=== PATIENT | female | born 1960 | race Caucasian/White ===

== ENCOUNTER → 2017-02-17 14:07 | Outpatient (POV) | payer MEDICARE, MEDICAID, SELFPAY ==
[2017-02-17 15:33] LABS: Microscopic, Urine URINE MICROSCOPIC (MICROSCOPIC)
[2017-02-17 16:00] LABS: Appearance,Urine CLEAR (Clear); Bilirubin,Urine Negative (Negative); Blood, Urine Negative (Negative); Color,Urine YELLOW (Yellow); Glucose,Urine (UA) 2+ (Negative); Ketones,Urine Negative (Negative); Leukocyte Esterase,Urine Negative (Negative); Nitrate,Urine Negative (Negative); Protein,Urine Negative (Negative); Urobilinogen,Urine 0.2 EU/dl (0.2)
[2017-02-17 16:04] LABS: Creatinine,Urine Random 12 mg/dL (20-320)
[2017-02-17 16:11] LABS: Basophils # 0.1 K/mm3 (0-0.2); Eosinophils # 0.3 K/mm3 (0.0-0.4); Eosinophils % 1.9 % (0.1-12.0); Hematocrit 53.5 % (37.0-47.0); Hemoglobin 16.5 g/dL (12.2-16.2); Lymphocytes # 5.2 K/mm3 (0.7-4.5); Lymphocytes % 37.4 K/mm3 (10-50); Mean Corpuscular HGB Conc 30.9 g/dL (31.8-35.4); Mean Corpuscular Hemoglobin 27.5 pg (27.0-31.2); Mean Corpuscular Volume 88.8 fl (81-99); Mean Platelet Volume 7.8 fl (7.4-10.4); Monocytes # 0.9 K/mm3 (0.1-1.0); Monocytes % 6.3 % (1.7-9.3); Neutrophils # 7.5 K/mm3 (1.8-7.8); Neutrophils % 53.5 % (37.0-80.0); Platelet Count 293 K/mm3 (142-424); Red Blood Count 6.02 M/mm3 (4.20-5.40); Red Cell Distribution Width 13.4 % (11.5-17.5)
[2017-02-17 17:40] LABS: Albumin Level 3.5 gm/dL (3.4-5.0); Blood Urea Nitrogen 36 mg/dL (7-18); Calcium 9.5 mg/dL (8.5-10.1); Carbon Dioxide 35 mmol/L (21.0-32.0); Chloride 96 mmol/L (98-107); Creatinine,Serum 1.45 mg/dL (0.55-1.02); Estimated Glomerular Filt Rate 37 ml/min (>60); GFR (African American) 45 ML/MIN (>60); Glucose 399 mg/dL (74-106); Phosphorous 3.7 mg/dL (2.4-4.9); Sodium 137 mmol/L (136-145)
[2017-02-17 19:38] LABS: Bacteria,Urine Trace /lpf; RBC,Urine Occasional #/hpf (0-3); Squamous Epithelial Cell,Urine Occasional #/hpf (0-5); WBC,Urine Occasional #/hpf (0-3)
[2017-02-19 22:14] LABS: Vitamin D 25 Hydroxy 22.5 ng/mL (30.0-100.0)
[2017-02-21 15:16] LABS: Albumin, U 39.2 % (.); Alpha-1-Globulin, U 1.9 % (.); Alpha-2-Globulin, U 8.8 % (.); Beta Globulin, U 23.9 % (.); Gamma Globulin, U 26.1 % (.); M-Spike, % Not Observed % (Not Observed)
[2017-02-22 13:39] LABS: Protein,Total,Urine <4.0 mg/dL (Not Estab.)
== END ==
PROVIDERS: Visit Provider Internal Medicine Nephrology
DX: N18.3 Chronic kidney disease, stage 3 (moderate) (principal)
CPT/HCPCS: 36415; 80069; 81001; 82570; 82652; 85025

== ENCOUNTER → 2017-02-22 14:57 | Outpatient (POV) | payer MEDICARE, MEDICAID, SELFPAY | PROVIDERS: Visit Provider Internal Medicine | DX: Z00.00 Encounter for general adult medical examination without abnormal findings (principal) ==

== ENCOUNTER 2017-04-27 19:02 | Emergency (ER) | payer MEDICARE, MEDICAID, SELFPAY ==
[2017-04-27 19:13] VITALS: BP 108/81; PULSE 85; RESP 18; TEMP 37; O2SAT 96; BMI 34.0
[2017-04-27 20:18] LABS: Basophils # 0.1 K/mm3 (0-0.2); Basophils % 0.7 % (0.1-2.0); Eosinophils # 0.1 K/mm3 (0.0-0.4); Hematocrit 53.6 % (37.0-47.0); Hemoglobin 16.7 g/dL (12.2-16.2); Lymphocytes # 4.1 K/mm3 (0.7-4.5); Lymphocytes % 41.3 K/mm3 (10-50); Mean Corpuscular HGB Conc 31.2 g/dL (31.8-35.4); Mean Corpuscular Hemoglobin 27.2 pg (27.0-31.2); Mean Corpuscular Volume 87.3 fl (81-99); Mean Platelet Volume 8.4 fl (7.4-10.4); Monocytes # 0.8 K/mm3 (0.1-1.0); Monocytes % 7.7 % (1.7-9.3); Neutrophils # 4.9 K/mm3 (1.8-7.8); Neutrophils % 49.3 % (37.0-80.0); Platelet Count 238 K/mm3 (142-424); Red Blood Count 6.14 M/mm3 (4.20-5.40); Red Cell Distribution Width 13.8 % (11.5-17.5)
--- NOTE | 2017-04-27 20:23 | [facility]H.EDSOB ---
ED Disposition Clinical Impression: Acute exacerbation of chronic obstructive airways disease, Renal insufficiency Disposition: Home, Self-Care Condition on Discharge: Good Instructions: DI for Chronic Obstructive Pulmonary Disease Additional Instructions: see pcp for follow up Prescriptions: Benzonatate [Tessalon Perle 100mg Cap] 100 mg PO TID #30 cap Referrals: Joshua Urban MD [Primary Care Provider] - - Critical Care Critical Care Time: No Attestation: On 04/27/17, the high probability of a clinically significant, sudden or life threatening deterioration of the following system(s) required my full and direct attention, intervention and personal management. The time I documented below is in addition to time spent performing reported procedures but includes the following listed in this critical care notation. Medical Decision Making - Medical Records Medical records reviewed: Yes: I reviewed the patient's medical records. - Jordin Inquiry Pt receiving controlled substance: No Vital Signs: 04/27/17 19:13 04/27/17 20:33 04/27/17 21:07 Temperature 98.6 F 98.9 F Temperature Source Oral Oral Pulse Rate 78 Pulse Rate [Left Radial] 85 98 H Respiratory Rate 18 20 Blood Pressure [Right Arm] 108/81 154/85 Blood Pressure Mean [Right Arm] 90 108 Blood Pressure Source [Right Arm] Automatic Cuff Automatic Cuff Blood Pressure Position [Right Arm] Sitting Sitting 02 Sat by Pulse Oximetry 96 95 98 Oxygen Delivery Method Room Air Nasal Cannula Nasal Cannula Oxygen Flow Rate (LPM) 2 3 - Lab Data Lab results reviewed: Yes: I reviewed the patient's lab results. Lab Results 04/27/17 19:45: WBC 10.0, RBC 6.14 H, Hgb 16.7 H, Hct 53.6 H, MCV 87.3, MCH 27.2, MCHC 31.2 L, RDW 13.8, Plt Count 238, MPV 8.4, Neut % (Auto) 49.3, Lymph % (Auto) 41.3, [place] % (Auto) 7.7, Eos % (Auto) 1.0, Baso % (Auto) 0.7, Neut # (Auto) 4.9, Lymph # (Auto) 4.1, [place] # (Auto) 0.8, Eos # (Auto) 0.1, Baso # (Auto) 0.1 04/27/17 19:45: Sodium 135 L, Potassium 3.4 L, Chloride 98, Carbon Dioxide 26, Anion Gap 14.4, BUN 35 H, Creatinine 1.64 H, Estimated Creat Clear 54, Estimated GFR 32 L, Est GFR ( Amer) 39 L, Glucose 361 H, Total Creatine Kinase 43, CK-MB (CK-2) 0.7, CK-MB (CK-2) Rel Index 1.6, Troponin I < 0.02, Amylase 35 04/27/17 19:45: Influenza Type A Ag Negative, Influenza Type B Ag Negative 04/27/17 19:45: Total Bilirubin 0.6, Direct Bilirubin 0.2, AST 31, ALT 53, Alkaline Phosphatase 149 H, Total Protein 7.7, Albumin 2.9 L, Lipase 69 L 04/27/17 19:45: Lactic Acid 1.2 Result diagrams: 04/27/17 19:45 04/27/17 19:45 Orders (Tests/Meds): ED MEDICATIONS Discontinued Medications Generic Name Dose Route Start Last Admin Trade Name Freq PRN Reason Stop Dose Admin Albuterol/Ipratropium 3 ml 04/27/17 20:50 04/27/17 21:04 Duoneb 3ml Neb IH 04/27/17 20:51 3 ml ONCE ONE Administration ORDERS Category Date Time Status XR chest 2V Stat Exams 04/27/17 20:24 Taken Upper Respiratory Panel, PCR Stat Lab 04/27/17 21:04 Ordered Blood Culture Stat Micro 04/27/17 20:23 Ordered Sputum Culture & Gram Stain Stat Micro 04/27/17 21:07 Ordered - Radiology Data #1 Image(s): Chest Image Reviewed: Yes I reviewed the patient's radiology image Preliminary Findings: Abnormal (copd) Resp/SOB HPI - General Chief Complaint: Shortness of Breath/Dyspnea Stated Complaint: SOB, Headaches, body aches, nausea Time Seen by Provider: 04/27/17 20:23 Mode of Arrival: Ambulatory Source of Information: Patient, Medical Record Limitations: No Limitations Description of Symptoms (Recalled from ER Triage Doc. 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
--- NOTE | 2017-04-27 20:24 | XR_ITS ---
XR chest 2V HISTORY: Shortness of air ITS.REASON: soa ORDERING PHYSICIAN: Ramon Raygoza MD PATIENT AGE: 57 years COMPARISON: 10/23/2016 FINDINGS: The cardiomediastinal silhouette and pulmonary vascularity are within normal limits. There is diffuse coarsening of the interstitial markings as before. A loop recorder device is in place along the anterior chest wall. There is a 5 mm nodule in the right upper lobe and may been present previously. No lobar consolidation or collapse. No acute bony anomalies.. No acute bony abnormalities. IMPRESSION: 1. Interstitial fibrosis. 2. 5 mm right upper lobe nodular opacity possibly related to granuloma. Consider follow-up to confirm stability
[2017-04-27 20:29] LABS: Alanine Aminotransferase 53 U/L (12-78); Albumin Level 2.9 gm/dL (3.4-5.0); Alkaline Phosphatase 149 U/L (46-116); Aspartate Amino Transferase 31 U/L (15-37); Bilirubin,Direct 0.2 mg/dL (0.0-0.2); Bilirubin,Total 0.6 mg/dL (0.2-1.0); Lipase 69 u/L (73-393); Total Protein,Serum 7.7 gm/dL (6.4-8.2)
[2017-04-27 20:32] LABS: Lactic Acid 1.2 mmol/L (0.4-2.0)
[2017-04-27 20:33] VITALS: BP 154/85; PULSE 98; RESP 20; TEMP 37.2; O2SAT 95
[2017-04-27 20:48] LABS: Amylase 35 U/L (25-125); Anion Gap 14.4 mEq/L (5-15); Blood Urea Nitrogen 35 mg/dL (7-18); CKMB Relative Index 1.6 U/L (0-4.0); Carbon Dioxide 26 mmol/L (21.0-32.0); Chloride 98 mmol/L (98-107); Creatine Kinase 43 U/L (26-192); Creatine Kinase MB 0.7 mg/ml (0.0-3.6); Creatinine Clearance Estimated 54 mL/min (0-300); Creatinine,Serum 1.64 mg/dL (0.55-1.02); Estimated Glomerular Filt Rate 32 ml/min (>60); GFR (African American) 39 ML/MIN (>60); Glucose 361 mg/dL (74-106); Potassium 3.4 mmoL/L (3.5-5.1); Sodium 135 mmol/L (136-145); Troponin I < 0.02 ng/ml (0.00-0.06)
[2017-04-27 21:07] VITALS: PULSE 78; PULSE 82; O2SAT 98
[2017-04-27 21:18] VITALS: BP 139/86; PULSE 70; RESP 20; O2SAT 95
[2017-04-27 21:23] LABS: Adenovirus,PCR Not Detected (NotDetected); Bordetella Pertussis Not Detected (NotDetected); Chlamydophila Pneumoniae, PCR Not Detected (NotDetected); Coronavirus 229E Not Detected (NotDetected); Coronavirus NL63 Not Detected (NotDetected); Coronavirus OC43 Not Detected (NotDetected); Coronovirus HKU1,PCR Not Detected (NotDetected); Human Metapneumovirus Not Detected (NotDetected); Influenza A, PCR Not Detected (NotDetected); Influenza AH1, 2009 Not Detected (NotDetected); Influenza AH1, PCR Not Detected (NotDetected); Influenza AH3,PCR Not Detected (NotDetected); Mycoplasma Pneumoniae, PCR Not Detected (NotDected); Parainfluenza 1, PCR Not Detected (NotDetected); Parainfluenza 2, PCR Not Detected (NotDetected); Parainfluenza 3, PCR Not Detected (NotDetected); Parainfluenza 4, PCR Not Detected (NotDetected); Respiratory Syncytial Virus Not Detected (NotDetected); Rhinovirus/Enterovirus Not Detected (NotDetected)
[2017-04-27 21:52] VITALS: BP 128/69; PULSE 80; RESP 18; TEMP 36.7; O2SAT 95
[2017-04-27 23:51] LABS: Influenza B, PCR Detected (NotDetected)
== END 2017-04-27 21:53 | disposition home or self-care (01) ==
PROVIDERS: Emergency Provider Emergency Medicine; PCP Emergency Medicine
DX: J44.1 Chronic obstructive pulmonary disease with (acute) exacerbation (principal); N28.9 Disorder of kidney and ureter, unspecified; Z88.0 Allergy status to penicillin; Z88.1 Allergy status to other antibiotic agents; Z88.2 Allergy status to sulfonamides; Z88.8 Allergy status to other drugs, medicaments and biological substances
CPT/HCPCS: 71046; 80048; 80076; 82150; 82550; 82553; 83605; 83690; 84484; 85025; 87040; 87070; 87205; 87275; 87276; 87486; 87581; 87633; 87798; 96374; 99211; 99283; 99284

== ENCOUNTER → 2017-05-17 15:14 | Outpatient (REF) | payer MEDICARE, MEDICAID, SELFPAY ==
[2017-05-17 19:36] LABS: Amphetamine/Metha Screen,Urine Negative ng/mL (<1000); Barbiturates Screen,Urine Negative ng/mL (<200); Benzodiazepines Screen,Urine Negative ng/mL (200); Cannabinoid Screen,Urine Positive ng/mL (<50); Cocaine Screen,Urine Negative ng/g (<300); Methadone Screen,Urine Negative ng/mL (<300); Opiate Screen,Urine Positive ng/mL (<300); Phencyclidine Screen,Urine Negative ng/mL (<25)
== END ==
LOC: LAB 15:14
PROVIDERS: Visit Provider Emergency Medicine
DX: Z79.899 Other long term (current) drug therapy (principal)
CPT/HCPCS: 80305

== ENCOUNTER 2017-06-09 15:04 | Outpatient (RCR) | payer MEDICARE, MEDICAID, SELFPAY | END 2017-06-09 15:05 | disposition home or self-care (01) | LOC: PT 15:04 | PROVIDERS: Visit Provider Nurse Practitioner Family | DX: J44.9 Chronic obstructive pulmonary disease, unspecified (principal) | CPT/HCPCS: G0424 ==

== ENCOUNTER → 2017-06-15 13:57 | Outpatient (REF) | payer MEDICARE, MEDICAID, SELFPAY ==
[2017-06-15 20:57] LABS: Amphetamine/Metha Screen,Urine Negative ng/mL (<1000); Barbiturates Screen,Urine Negative ng/mL (<200); Benzodiazepines Screen,Urine Negative ng/mL (200); Cannabinoid Screen,Urine Negative ng/mL (<50); Cocaine Screen,Urine Negative ng/g (<300); Methadone Screen,Urine Negative ng/mL (<300); Opiate Screen,Urine Positive ng/mL (<300); Phencyclidine Screen,Urine Negative ng/mL (<25)
== END ==
LOC: LAB 13:57
PROVIDERS: Visit Provider Emergency Medicine
DX: M54.2 Cervicalgia (principal); Z79.899 Other long term (current) drug therapy
CPT/HCPCS: 80305

== ENCOUNTER → 2017-07-12 14:35 | Outpatient (CLI) | payer MEDICARE, MEDICAID, SELFPAY ==
[2017-07-12 14:40] LABS: Microscopic, Urine URINE MICROSCOPIC (MICROSCOPIC)
[2017-07-12 14:56] LABS: Appearance,Urine CLEAR (Clear); Bilirubin,Urine Negative (Negative); Blood, Urine Negative (Negative); Color,Urine YELLOW (Yellow); Glucose,Urine (UA) 1+ (Negative); Ketones,Urine Negative (Negative); Leukocyte Esterase,Urine Negative (Negative); Nitrate,Urine Negative (Negative); PH,Urine 5.5 (5.0-8.5); Protein,Urine Negative (Negative); Urobilinogen,Urine 0.2 EU/dl (0.2)
[2017-07-12 15:02] LABS: Basophils # 0.1 K/mm3 (0-0.2); Basophils % 0.7 % (0.1-2.0); Eosinophils # 0.2 K/mm3 (0.0-0.4); Eosinophils % 2.2 % (0.1-12.0); Hematocrit 53.3 % (37.0-47.0); Lymphocytes # 2.9 K/mm3 (0.7-4.5); Lymphocytes % 30.6 K/mm3 (10-50); Mean Corpuscular Hemoglobin 26.9 pg (27.0-31.2); Mean Corpuscular Volume 89.6 fl (81-99); Mean Platelet Volume 7.5 fl (7.4-10.4); Monocytes # 0.7 K/mm3 (0.1-1.0); Monocytes % 7.3 % (1.7-9.3); Neutrophils # 5.7 K/mm3 (1.8-7.8); Neutrophils % 59.1 % (37.0-80.0); Platelet Count 332 K/mm3 (142-424); Red Blood Count 5.95 M/mm3 (4.20-5.40); Red Cell Distribution Width 14.2 % (11.5-17.5); White Blood Count 9.6 K/mm3 (4.8-10.8)
[2017-07-12 15:10] LABS: Hemoglobin A1C 9.5 % (0.0-7.0)
[2017-07-12 15:32] LABS: Bacteria,Urine Trace /lpf; Creatinine,Urine Random 75 mg/dL (20-320); RBC,Urine Occasional #/hpf (0-3); Squamous Epithelial Cell,Urine Occasional #/hpf (0-5)
[2017-07-12 15:36] LABS: Albumin Level 3.3 gm/dL (3.4-5.0); Anion Gap 12.7 mEq/L (5-15); Blood Urea Nitrogen 26 mg/dL (7-18); Calcium 9.6 mg/dL (8.5-10.1); Carbon Dioxide 31 mmol/L (21.0-32.0); Chloride 100 mmol/L (98-107); Creatinine,Serum 1.52 mg/dL (0.55-1.02); Estimated Glomerular Filt Rate 35 ml/min (>60); GFR (African American) 43 ML/MIN (>60); Glucose 381 mg/dL (74-106); Phosphorous 4.1 mg/dL (2.4-4.9); Potassium 3.7 mmoL/L (3.5-5.1); Sodium 140 mmol/L (136-145)
== END ==
PROVIDERS: Visit Provider Internal Medicine Nephrology
DX: N18.3 Chronic kidney disease, stage 3 (moderate) (principal); E11.8 Type 2 diabetes mellitus with unspecified complications
CPT/HCPCS: 36415; 80069; 81001; 82570; 83036; 84155; 85025

== ENCOUNTER → 2017-07-18 13:52 | Outpatient (POV) | payer MEDICARE, MEDICAID, SELFPAY ==
[2017-07-18 14:49] LABS: Microscopic, Urine URINE MICROSCOPIC (MICROSCOPIC)
[2017-07-18 15:33] LABS: Appearance,Urine SL CLOUDY (Clear); Blood, Urine Negative (Negative); Color,Urine YELLOW (Yellow); Glucose,Urine (UA) TRACE (Negative); Ketones,Urine Negative (Negative); Leukocyte Esterase,Urine TRACE (Negative); Nitrate,Urine Negative (Negative); PH,Urine 5.5 (5.0-8.5); Protein,Urine Negative (Negative); Specific Gravity, Urine 1.025 (1.005-1.030); Urobilinogen,Urine 0.2 EU/dl (0.2)
[2017-07-18 15:35] LABS: Bilirubin,Urine Negative (Negative)
[2017-07-18 15:53] LABS: Bacteria,Urine 3+ /lpf
== END ==
PROVIDERS: PCP Emergency Medicine; Visit Provider Internal Medicine Nephrology
DX: R30.0 Dysuria (principal)
CPT/HCPCS: 81001; 87086; 87088; 87186

== ENCOUNTER → 2017-08-16 13:31 | Outpatient (REF) | payer MEDICARE, MEDICAID, SELFPAY ==
[2017-08-16 18:40] LABS: Amphetamine/Metha Screen,Urine Negative ng/mL (<1000); Barbiturates Screen,Urine Negative ng/mL (<200); Benzodiazepines Screen,Urine Negative ng/mL (<200); Cannabinoid Screen,Urine Positive ng/mL (<50); Cocaine Screen,Urine Negative ng/mL (<300); Methadone Screen,Urine Negative ng/mL (<300); Opiate Screen,Urine Positive ng/mL (<300); Phencyclidine Screen,Urine Negative ng/mL (<25)
== END ==
LOC: LAB 13:31
PROVIDERS: Visit Provider Emergency Medicine
DX: M54.5 Low back pain (principal)
CPT/HCPCS: 80305

== ENCOUNTER → 2017-09-05 15:10 | Outpatient (REF) | payer MEDICARE, MEDICAID, SELFPAY ==
[2017-09-05 17:50] LABS: Amphetamine/Metha Screen,Urine Negative ng/mL (<1000); Barbiturates Screen,Urine Negative ng/mL (<200); Benzodiazepines Screen,Urine Negative ng/mL (<200); Cannabinoid Screen,Urine Positive ng/mL (<50); Cocaine Screen,Urine Negative ng/mL (<300); Methadone Screen,Urine Negative ng/mL (<300); Opiate Screen,Urine Negative ng/mL (<300); Phencyclidine Screen,Urine Negative ng/mL (<25)
== END ==
LOC: LAB 15:10
PROVIDERS: Visit Provider Emergency Medicine
DX: M54.2 Cervicalgia (principal)
CPT/HCPCS: 80305

== ENCOUNTER → 2017-10-04 08:12 | Outpatient (CLI) | payer MEDICARE, MEDICAID, SELFPAY ==
--- NOTE | 2017-10-04 08:19 | US_ITS ---
US Arterial Ankle Brachial Ind History: Previous smoker, hypertension, bilateral rest pain and bilateral claudication with history of diabetes and peripheral vascular disease ORDERING PHYSICIAN: Kaiden Chan MD PATIENT AGE: 57 years TECHNIQUE: Segmental pressures obtained of both right and left leg. These are compared to brachial blood pressure to yield index at each level sampled including summary DAVE. The data sheets from the procedure are available in PACS FINDINGS Rest study only performed today No prior studies available for comparison. Blood pressures reported are in millimeters mercury. RIGHT LEG DAVE = 1.1. RIGHT LEG TBI=0.7 Brachial BP: 119 Thigh BP: 134 Calf BP: 139 Ankle PT: 132 Ankle DP : 129 Digit =82 LEFT LEG DAVE = 1.1 LEFT LEG TBI= 0.8 Brachial BPD: 120 Thigh BP: 148 Calf BP: 141 Ankle PT:133 Ankle DP: 123 Digit = 90 Pulses and waveforms: Normal IMPRESSION: The ABIs as reported above are within normal limits. Waveforms and pulses are also unremarkable.
== END ==
PROVIDERS: PCP Emergency Medicine; Visit Provider Internal Medicine
DX: I73.9 Peripheral vascular disease, unspecified (principal)
CPT/HCPCS: 93922

== ENCOUNTER → 2017-10-05 15:01 | Outpatient (REF) | payer MEDICARE, MEDICAID, SELFPAY ==
[2017-10-05 19:34] LABS: Amphetamine/Metha Screen,Urine Negative ng/mL (<1000); Barbiturates Screen,Urine Negative ng/mL (<200); Benzodiazepines Screen,Urine Negative ng/mL (<200); Cannabinoid Screen,Urine Positive ng/mL (<50); Cocaine Screen,Urine Negative ng/mL (<300); Methadone Screen,Urine Negative ng/mL (<300); Opiate Screen,Urine Positive ng/mL (<300); Phencyclidine Screen,Urine Negative ng/mL (<25)
== END ==
LOC: LAB 15:01
PROVIDERS: Visit Provider Emergency Medicine
DX: M54.2 Cervicalgia (principal)
CPT/HCPCS: 80305

== ENCOUNTER → 2018-03-01 13:46 | Outpatient (CLI) | payer MEDICARE, MEDICAID, SELFPAY ==
[2018-03-01 14:22] LABS: Amphetamine/Metha Screen,Urine Negative ng/mL (<1000); Barbiturates Screen,Urine Negative ng/mL (<200); Benzodiazepines Screen,Urine Negative ng/mL (<200); Cannabinoid Screen,Urine Positive ng/mL (<50); Cocaine Screen,Urine Negative ng/mL (<300); Methadone Screen,Urine Negative ng/mL (<300); Opiate Screen,Urine Positive ng/mL (<300); Phencyclidine Screen,Urine Negative ng/mL (<25)
== END ==
PROVIDERS: Visit Provider Emergency Medicine
DX: Z79.899 Other long term (current) drug therapy (principal)
CPT/HCPCS: 80305

== ENCOUNTER → 2018-04-28 12:29 | Outpatient (CLI) | payer MEDICARE, MEDICAID, SELFPAY ==
--- NOTE | 2018-04-28 12:43 | XR_ITS ---
XR chest 2V HISTORY: ITS.REASON: Shortness of air ORDERING PHYSICIAN: Joshua Urban MD PATIENT AGE: 58 years COMPARISON: 04/27/2017 FINDINGS: Normal heart size. There is a loop recorder device present in the precordial region. Pulmonary fibrotic changes are noted as before. There is some increase in density in the right upper lobe which may only be related to progression of pulmonary fibrotic change. Superimposed infiltrate is also a consideration. No effusions. No acute bony anomalies. IMPRESSION: Pulmonary fibrosis with some increased markings in the right upper lobe which could be related to superimposed infiltrate.
--- NOTE | 2018-04-28 12:43 | XR_ITS ---
XR hip LT 2-3V w/pelvis HISTORY: ITS.REASON: Hip pain ORDERING PHYSICIAN: Joshua Urban MD PATIENT AGE: 58 years COMPARISON: 06/12/2016 FINDINGS: No acute fracture or dislocation. No lytic or blastic change. There is an os acetabulum similar to the previous exam. Calcification is present superior to the greater trochanter also similar to the previous exam. There are mild osteoarthritic changes with slight decrease in the joint space and minimal spurring along the head. Surgical clips are present in the pelvic region. IMPRESSION: Mild osteoarthritis with chronic changes, no acute finding
--- NOTE | 2018-04-28 12:43 | XR_ITS ---
XR ribs RT min 3V w CXR1V HISTORY: Posterior right rib pain after a fall ITS.REASON: Rib pain ORDERING PHYSICIAN: Joshua Urban MD PATIENT AGE: 58 years Comparison: None FINDINGS: Multiple views of the right ribs were obtained. No fracture or dislocation. No lytic or blastic change. IMPRESSION: Negative RIBS. If pain persists, consider follow-up exam in 7-[address] with 3-D reformats.
[2018-04-28 13:38] LABS: Anion Gap 13.9 mEq/L (5-15); Blood Urea Nitrogen 29 mg/dL (7-18); Calcium 9.9 mg/dL (8.5-10.1); Carbon Dioxide 28 mmol/L (21.0-32.0); Chloride 96 mmol/L (98-107); Creatinine,Serum 1.12 mg/dL (0.55-1.02); Estimated Glomerular Filt Rate 50 ml/min (>60); GFR (African American) 61 ML/MIN (>60); Potassium 3.9 mmoL/L (3.5-5.1); Sodium 134 mmol/L (136-145)
[2018-04-28 13:47] LABS: Glucose 507 mg/dL (74-106)
[2018-04-28 14:05] LABS: Basophils # 0.1 K/mm3 (0-0.2); Basophils % 0.8 % (0.1-2.0); Eosinophils # 0.2 K/mm3 (0.0-0.4); Eosinophils % 1.5 % (0.1-12.0); Hematocrit 53.6 % (37.0-47.0); Hemoglobin 15.8 g/dL (12.2-16.2); Mean Corpuscular HGB Conc 29.5 g/dL (31.8-35.4); Mean Corpuscular Hemoglobin 24.7 pg (27.0-31.2); Mean Corpuscular Volume 83.7 fl (81-99); Mean Platelet Volume 8.6 fl (7.4-10.4); Monocytes # 0.8 K/mm3 (0.1-1.0); Monocytes % 7.1 % (1.7-9.3); Neutrophils # 6.1 K/mm3 (1.8-7.8); Neutrophils % 54.5 % (37.0-80.0); Platelet Count 317 K/mm3 (142-424); Red Cell Distribution Width 15.2 % (11.5-17.5); White Blood Count 11.2 K/mm3 (4.8-10.8)
[2018-04-29 07:14] LABS: Hep A Ab, IgM Negative (Negative); Hepatitis B Core Antibody IgM Negative (Negative); Hepatitis B Surface Antigen Negative (Negative)
[2018-04-29 09:05] LABS: Hepatitis C Antibody >11.0 s/co ratio (0.0-0.9)
== END ==
PROVIDERS: Visit Provider Emergency Medicine
DX: R53.83 Other fatigue (principal); R11.2 Nausea with vomiting, unspecified; R06.02 Shortness of breath; M25.552 Pain in left hip
CPT/HCPCS: 36415; 71046; 71101; 73502; 80048; 80074; 85025

== ENCOUNTER → 2018-05-11 13:00 | Outpatient (CLI) | payer MEDICARE, MEDICAID, SELFPAY ==
[2018-05-11 14:09] LABS: Hemoglobin A1C 10.5 % (0.0-7.0)
[2018-05-11 14:21] LABS: INR 1.02 (0.9-1.1); Prothrombin Time 10.5 seconds (9.4-11.8)
[2018-05-13 07:16] LABS: HIV Screen 4th Generation wRfx Non Reactive (Non Reactive)
[2018-05-14 18:25] LABS: Hep A Ab, Total Positive (Negative)
[2018-05-15 20:08] LABS: HCV Genotype Charge YES; Hepatitis C Genotype 1a (.)
== END ==
PROVIDERS: PCP Emergency Medicine; Visit Provider Physician Assistant
DX: R76.8 Other specified abnormal immunological findings in serum (principal); E11.9 Type 2 diabetes mellitus without complications; Z79.4 Long term (current) use of insulin
CPT/HCPCS: 36415; 83036; 85610; 86703; 86708; 87522; 87902; G0432

== ENCOUNTER → 2018-05-15 15:35 | Outpatient (CLI) | payer MEDICARE, MEDICAID, SELFPAY ==
--- NOTE | 2018-05-15 15:41 | XR_ITS ---
XR chest 2V HISTORY: ITS.REASON: shortness of breath ORDERING PHYSICIAN: Glo Stone PATIENT AGE: 58 years COMPARISON: PA and lateral chest 04/28/2018 FINDINGS: The lung kimball are fairly well expanded again showing diffuse interstitial fibrotic changes as noted previously. Interstitial markings and opacities are slightly more prominent right upper lobe than the remainder lung kimball but this has been noted previously and probably reflects post inflammatory scarring in addition to chronic interstitial changes. I see no definite acute infiltrate. There is no pleural fluid. Cardiac size is normal, the loop recorder is again noted projecting over the left infrahilar region. There are mild multilevel degenerative changes of the thoracic spine. IMPRESSION: Stable chronic interstitial changes, no acute chest pathology noted
== END ==
PROVIDERS: PCP Nurse Practitioner Family; Visit Provider Nurse Practitioner Family
DX: R05 Cough (principal); R06.02 Shortness of breath; N39.0 Urinary tract infection, site not specified
CPT/HCPCS: 71046; 87086; 87088; 87186

== ENCOUNTER 2018-05-17 14:48 | Outpatient (CLI) | payer MEDICARE, MEDICAID, SELFPAY ==
[2018-05-17 15:25] VITALS: BP 122/63; PULSE 73; RESP 18; TEMP 36.7; O2SAT 94
== END 2018-05-17 15:40 | disposition home or self-care (01) ==
LOC: INF 14:49
PROVIDERS: PCP Physician Assistant; Visit Provider Physician Assistant
DX: N39.0 Urinary tract infection, site not specified (principal); B96.20 Unspecified Escherichia coli [E. coli] as the cause of diseases classified elsewhere
CPT/HCPCS: 96372; J1335

== ENCOUNTER 2018-05-18 15:55 | Outpatient (CLI) | payer MEDICARE, MEDICAID, SELFPAY ==
[2018-05-18 16:08] VITALS: BP 118/69; PULSE 79; RESP 18; TEMP 36.4; O2SAT 96
== END 2018-05-18 16:28 | disposition home or self-care (01) ==
LOC: INF 15:55
PROVIDERS: Visit Provider Physician Assistant
DX: N39.0 Urinary tract infection, site not specified (principal); B96.20 Unspecified Escherichia coli [E. coli] as the cause of diseases classified elsewhere
CPT/HCPCS: 96372; J1335

== ENCOUNTER 2018-05-19 15:50 | Outpatient (CLI) | payer MEDICARE, MEDICAID, SELFPAY ==
[2018-05-19 16:10] VITALS: BP 104/61; PULSE 76; RESP 18; TEMP 36.6; O2SAT 93
== END 2018-05-19 16:22 | disposition home or self-care (01) ==
LOC: INF 15:56
PROVIDERS: Visit Provider Physician Assistant
DX: N39.0 Urinary tract infection, site not specified (principal); B96.20 Unspecified Escherichia coli [E. coli] as the cause of diseases classified elsewhere
CPT/HCPCS: 96372; J1335

== ENCOUNTER → 2018-05-20 11:34 | Outpatient (CLI) | payer MEDICARE, MEDICAID, SELFPAY ==
[2018-05-20 11:45] VITALS: BP 115/68; PULSE 73; RESP 18; TEMP 36.4; O2SAT 94; BMI 27.1
== END ==
PROVIDERS: PCP Emergency Medicine; Visit Provider Physician Assistant
DX: N39.0 Urinary tract infection, site not specified (principal); B96.20 Unspecified Escherichia coli [E. coli] as the cause of diseases classified elsewhere
CPT/HCPCS: 96372; J1335

== ENCOUNTER 2018-05-24 11:46 | Outpatient (CLI) | payer MEDICARE, MEDICAID, SELFPAY ==
[2018-05-24 12:10] VITALS: BP 98/56; PULSE 72; RESP 18; TEMP 36.7; O2SAT 96
== END 2018-05-24 12:25 | disposition home or self-care (01) ==
LOC: INF 11:46
PROVIDERS: Visit Provider Physician Assistant
DX: N39.0 Urinary tract infection, site not specified (principal); B96.20 Unspecified Escherichia coli [E. coli] as the cause of diseases classified elsewhere
CPT/HCPCS: 96372; J1335

== ENCOUNTER 2018-05-25 15:57 | Outpatient (CLI) | payer MEDICARE, MEDICAID, SELFPAY ==
[2018-05-25 16:15] VITALS: BP 128/78; PULSE 97; RESP 18; TEMP 36.6; O2SAT 100
== END 2018-05-25 16:25 | disposition home or self-care (01) ==
LOC: INF 15:57
PROVIDERS: Visit Provider Physician Assistant
DX: N39.0 Urinary tract infection, site not specified (principal); B96.20 Unspecified Escherichia coli [E. coli] as the cause of diseases classified elsewhere
CPT/HCPCS: 96372; J1335

== ENCOUNTER 2018-05-26 14:53 | Outpatient (CLI) | payer MEDICARE, MEDICAID, SELFPAY ==
[2018-05-26 15:15] VITALS: BP 97/59; PULSE 80; RESP 18; TEMP 36.1; O2SAT 95
== END 2018-05-26 15:15 | disposition home or self-care (01) ==
LOC: INF 14:53
PROVIDERS: Visit Provider Physician Assistant
DX: N39.0 Urinary tract infection, site not specified (principal); B96.20 Unspecified Escherichia coli [E. coli] as the cause of diseases classified elsewhere
CPT/HCPCS: 96372; J1335

== ENCOUNTER 2018-05-29 16:20 | Outpatient (CLI) | payer MEDICARE, MEDICAID, SELFPAY ==
[2018-05-29 16:23] VITALS: BP 117/62; PULSE 73; RESP 18; TEMP 36.4; O2SAT 95
== END 2018-05-29 16:28 | disposition home or self-care (01) ==
LOC: INF 16:20
PROVIDERS: Visit Provider Physician Assistant
DX: N39.0 Urinary tract infection, site not specified (principal); B96.20 Unspecified Escherichia coli [E. coli] as the cause of diseases classified elsewhere
CPT/HCPCS: 96372; J1335

== ENCOUNTER → 2018-06-02 17:01 | Outpatient (CLI) | payer MEDICARE, MEDICAID, SELFPAY | PROVIDERS: Visit Provider Emergency Medicine | DX: N39.0 Urinary tract infection, site not specified (principal) | CPT/HCPCS: 87086 ==

== ENCOUNTER → 2018-07-26 14:34 | Outpatient (CLI) | payer MEDICARE, MEDICAID, SELFPAY ==
[2018-07-26 15:00] LABS: Basophils # 0.1 K/mm3 (0-0.2); Basophils % 1.2 % (0.1-2.0); Eosinophils # 0.2 K/mm3 (0.0-0.4); Eosinophils % 2.1 % (0.1-12.0); Hematocrit 52.5 % (37.0-47.0); Hemoglobin 16.1 g/dL (12.2-16.2); Lymphocytes # 4.1 K/mm3 (0.7-4.5); Lymphocytes % 41.1 % (10-50); Mean Corpuscular HGB Conc 30.7 g/dL (31.8-35.4); Mean Corpuscular Hemoglobin 25.8 pg (27.0-31.2); Mean Corpuscular Volume 84.1 fl (81-99); Mean Platelet Volume 7.2 fl (7.4-10.4); Monocytes # 0.7 K/mm3 (0.1-1.0); Monocytes % 6.5 % (1.7-9.3); Neutrophils # 4.9 K/mm3 (1.8-7.8); Neutrophils % 49.2 % (37.0-80.0); Platelet Count 373 K/mm3 (142-424); Red Blood Count 6.24 M/mm3 (4.20-5.40); Red Cell Distribution Width 15.1 % (11.5-17.5); White Blood Count 9.9 K/mm3 (4.8-10.8)
[2018-07-26 16:30] LABS: Alanine Aminotransferase 33 U/L (12-78); Albumin Level 3.2 gm/dL (3.4-5.0); Albumin/Globulin Ratio 0.7 (1.1-1.8); Alkaline Phosphatase 96 U/L (46-116); Anion Gap 12.3 mEq/L (5-15); Aspartate Amino Transferase 31 U/L (15-37); Bilirubin,Total 0.6 mg/dL (0.2-1.0); Blood Urea Nitrogen 55 mg/dL (7-18); Calcium 9.4 mg/dL (8.5-10.1); Carbon Dioxide 31 mmol/L (21.0-32.0); Chloride 101 mmol/L (98-107); Estimated Glomerular Filt Rate 33 ml/min (>60); GFR (African American) 40 ML/MIN (>60); Globulin 4.5 gm/dl (1.3-3.2); Glucose 256 mg/dL (74-106); Potassium 4.3 mmoL/L (3.5-5.1); Sodium 140 mmol/L (136-145); Total Protein,Serum 7.7 gm/dL (6.4-8.2)
[2018-07-29 11:19] LABS: HCV Genotype Charge YES
== END ==
PROVIDERS: Visit Provider Nurse Practitioner Family
DX: B19.20 Unspecified viral hepatitis C without hepatic coma (principal); Z79.899 Other long term (current) drug therapy
CPT/HCPCS: 36415; 80053; 85025; 87522; 87902

== ENCOUNTER → 2018-08-10 15:42 | Outpatient (CLI) | payer MEDICARE, MEDICAID, SELFPAY ==
[2018-08-10 16:10] LABS: Basophils # 0.1 K/mm3 (0-0.2); Basophils % 0.8 % (0.1-2.0); Eosinophils # 0.2 K/mm3 (0.0-0.4); Eosinophils % 2.5 % (0.1-12.0); Hematocrit 51.2 % (37.0-47.0); Hemoglobin 15.6 g/dL (12.2-16.2); Lymphocytes # 4.5 K/mm3 (0.7-4.5); Lymphocytes % 45.7 % (10-50); Mean Corpuscular HGB Conc 30.5 g/dL (31.8-35.4); Mean Corpuscular Hemoglobin 26.7 pg (27.0-31.2); Mean Corpuscular Volume 87.4 fl (81-99); Mean Platelet Volume 7.9 fl (7.4-10.4); Monocytes # 0.6 K/mm3 (0.1-1.0); Monocytes % 6.1 % (1.7-9.3); Neutrophils # 4.4 K/mm3 (1.8-7.8); Neutrophils % 44.9 % (37.0-80.0); Platelet Count 369 K/mm3 (142-424); Red Blood Count 5.86 M/mm3 (4.20-5.40); Red Cell Distribution Width 15.4 % (11.5-17.5); White Blood Count 9.8 K/mm3 (4.8-10.8)
[2018-08-10 16:22] LABS: INR 0.99 (0.9-1.1); Prothrombin Time 10.3 seconds (9.4-11.8)
[2018-08-10 17:15] LABS: Alanine Aminotransferase 37 U/L (12-78); Albumin Level 3.1 gm/dL (3.4-5.0); Albumin/Globulin Ratio 0.7 (1.1-1.8); Alkaline Phosphatase 114 U/L (46-116); Anion Gap 15.5 mEq/L (5-15); Aspartate Amino Transferase 32 U/L (15-37); Bilirubin,Total 0.6 mg/dL (0.2-1.0); Blood Urea Nitrogen 64 mg/dL (7-18); Calcium 9.5 mg/dL (8.5-10.1); Carbon Dioxide 29 mmol/L (21.0-32.0); Chloride 100 mmol/L (98-107); Creatinine,Serum 1.63 mg/dL (0.55-1.02); Estimated Glomerular Filt Rate 33 ml/min (>60); GFR (African American) 39 ML/MIN (>60); Globulin 4.5 gm/dl (1.3-3.2); Glucose 241 mg/dL (74-106); Potassium 4.5 mmoL/L (3.5-5.1); Sodium 140 mmol/L (136-145); Total Protein,Serum 7.6 gm/dL (6.4-8.2)
[2018-08-13 13:09] LABS: HCV Genotype Charge YES
== END ==
PROVIDERS: Visit Provider Nurse Practitioner Family
DX: B19.20 Unspecified viral hepatitis C without hepatic coma (principal)
CPT/HCPCS: 36415; 80053; 85025; 85610; 87522; 87902

== ENCOUNTER → 2018-08-18 17:38 | Outpatient (CLI) | payer MEDICARE, MEDICAID, SELFPAY ==
[2018-08-18 19:35] LABS: Cholesterol 174 mg/dL (140-200); HDL Cholesterol 58 mg/dL (29-89); LDL Cholesterol 86 mg/dL (0-130); T4 (Thyroxine) 4.9 ug/dl (4.7-13.3); Thyroid Stimulating Hormone 1.97 uIU/ml (0.358-3.740); Triglycerides 150 mg/dL (30-200); VLDL Cholesterol 30 mg/dL (0-40)
[2018-08-18 20:06] LABS: Hemoglobin A1C 8.1 % (0.0-7.0)
[2018-08-18 20:34] LABS: Amphetamine/Metha Screen,Urine Negative ng/mL (<1000); Barbiturates Screen,Urine Negative ng/mL (<200); Benzodiazepines Screen,Urine Negative ng/mL (<200); Cannabinoid Screen,Urine Positive ng/mL (<50); Cocaine Screen,Urine Negative ng/mL (<300); Methadone Screen,Urine Negative ng/mL (<300); Opiate Screen,Urine Negative ng/mL (<300); Phencyclidine Screen,Urine Negative ng/mL (<25)
[2018-08-20 04:23] LABS: Creatinine, Urine 56.6 mg/dL (Not Estab.); Microalbumin, Urine <3.0 ug/mL (Not Estab.)
[2018-08-26 13:10] LABS: Oxycodone (GC/MS) 643 ng/mL (Cutoff=100)
[2018-08-27 22:47] LABS: Opiates Negative (Cutoff=100)
== END ==
PROVIDERS: Visit Provider Emergency Medicine
DX: E11.9 Type 2 diabetes mellitus without complications (principal); M54.2 Cervicalgia; Z79.899 Other long term (current) drug therapy; Z79.4 Long term (current) use of insulin
CPT/HCPCS: 80061; 80305; 80361; 80365; 82043; 82570; 83036; 84436; 84443; G0480

== ENCOUNTER → 2018-08-22 09:20 | Outpatient (CLI) | payer MEDICARE, MEDICAID, SELFPAY ==
--- NOTE | 2018-08-22 09:25 | US_ITS ---
US abdomen complete HISTORY: Abdominal pain, hepatitis C ITS.REASON: HEP C ORDERING PHYSICIAN: Chelo Solis APRN PATIENT AGE: 58 years COMPARISON: None FINDINGS: PANCREAS:Unremarkable. No obvious mass or abnormal fluid collection. No ductal dilatation LIVER:There is coarse echogenicity. There is appropriate direction of blood flow within a nondilated portal vein. Common bile duct is upper normal at 6 mm. RIGHT KIDNEY:Unremarkable. Normal size and echogenicity. No hydronephrosis LEFT KIDNEY:Unremarkable. No hydronephrosis. Normal size and echogenicity. There is a small hyperechoic area in the mid aspect of the left kidney without shadowing measuring 5 mm. GALLBLADDER:Post cholecystectomy AORTA:No evidence of aneurysmal dilatation. SPLEEN:Unremarkable. Normal size and echogenicity ASCITES:None demonstrated. IMPRESSION: There is coarse echogenicity of the liver which may be seen with hepatitis. Prior cholecystectomy. Small echogenic focus in the left kidney nonspecific. Otherwise unremarkable abdominal ultrasound
== END ==
PROVIDERS: PCP Emergency Medicine; Visit Provider Nurse Practitioner Family
DX: B19.20 Unspecified viral hepatitis C without hepatic coma (principal)
CPT/HCPCS: 76700

== ENCOUNTER → 2018-09-06 12:26 | Outpatient (CLI) | payer MEDICARE, MEDICAID, SELFPAY ==
[2018-09-06 13:10] LABS: Prothrombin Time 10.4 seconds (9.4-11.8)
[2018-09-06 13:59] LABS: Alanine Aminotransferase 36 U/L (12-78); Albumin/Globulin Ratio 0.7 (1.1-1.8); Alkaline Phosphatase 128 U/L (46-116); Anion Gap 14.3 mEq/L (5-15); Aspartate Amino Transferase 22 U/L (15-37); Bilirubin,Total 0.3 mg/dL (0.2-1.0); Blood Urea Nitrogen 31 mg/dL (7-18); Calcium 9.4 mg/dL (8.5-10.1); Carbon Dioxide 28 mmol/L (21.0-32.0); Chloride 102 mmol/L (98-107); Creatinine,Serum 1.42 mg/dL (0.55-1.02); Estimated Glomerular Filt Rate 38 ml/min (>60); GFR (African American) 46 ML/MIN (>60); Globulin 4.5 gm/dl (1.3-3.2); Glucose 52 mg/dL (74-106); Potassium 3.3 mmoL/L (3.5-5.1); Sodium 141 mmol/L (136-145); Total Protein,Serum 7.5 gm/dL (6.4-8.2)
[2018-09-06 15:19] LABS: Basophils # 0.1 K/mm3 (0-0.2); Basophils % 0.8 % (0.1-2.0); Eosinophils # 0.2 K/mm3 (0.0-0.4); Eosinophils % 1.3 % (0.1-12.0); Hematocrit 47.3 % (37.0-47.0); Hemoglobin 14.9 g/dL (12.2-16.2); Lymphocytes # 8.4 K/mm3 (0.7-4.5); Lymphocytes % 47.3 % (10-50); Mean Corpuscular HGB Conc 31.5 g/dL (31.8-35.4); Mean Corpuscular Hemoglobin 26.9 pg (27.0-31.2); Mean Corpuscular Volume 85.4 fl (81-99); Mean Platelet Volume 8.2 fl (7.4-10.4); Monocytes # 1.2 K/mm3 (0.1-1.0); Neutrophils # 7.8 K/mm3 (1.8-7.8); Neutrophils % 43.7 % (37.0-80.0); Platelet Count 341 K/mm3 (142-424); Red Blood Count 5.54 M/mm3 (4.20-5.40); Red Cell Distribution Width 14.4 % (11.5-17.5); White Blood Count 17.8 K/mm3 (4.8-10.8)
[2018-09-06 15:23] LABS: MANUAL DIFFERENTIAL MANUAL DIFFERENTIAL (MANUAL DIFF)
[2018-09-06 16:14] LABS: Eosinophils % 2 % (0-3); Lymphocytes % 45 % (10-50); Monocytes % 7 % (2-9); Neutrophils % 41 % (42-76); Platelet Estimate Normal; RBC Morphology Normal; Total Cells Counted 100
== END ==
PROVIDERS: Visit Provider Nurse Practitioner Family
DX: B19.20 Unspecified viral hepatitis C without hepatic coma (principal); Z79.899 Other long term (current) drug therapy
CPT/HCPCS: 36415; 80053; 85007; 85025; 85610; 87522

== ENCOUNTER 2018-09-29 18:58 | Observation (INO) ==
[2018-09-29 19:56] LABS: Basophils # 0.1 K/mm3 (0-0.2); Basophils % 0.8 % (0.1-2.0); Eosinophils # 0.3 K/mm3 (0.0-0.4); Eosinophils % 1.9 % (0.1-12.0); Hemoglobin 15.9 g/dL (12.2-16.2); Lymphocytes # 6.6 K/mm3 (0.7-4.5); Lymphocytes % 44.2 % (10-50); Mean Corpuscular HGB Conc 31.9 g/dL (31.8-35.4); Mean Corpuscular Volume 87.9 fl (81-99); Mean Platelet Volume 7.3 fl (7.4-10.4); Monocytes % 6.5 % (1.7-9.3); Neutrophils # 6.9 K/mm3 (1.8-7.8); Neutrophils % 46.6 % (37.0-80.0); Platelet Count 334 K/mm3 (142-424); Red Blood Count 5.69 M/mm3 (4.20-5.40); Red Cell Distribution Width 14.3 % (11.5-17.5); White Blood Count 14.9 K/mm3 (4.8-10.8)
[2018-09-29 20:02] LABS: Albumin/Globulin Ratio 0.6 (1.1-1.8); Anion Gap 12.7 mEq/L (5-15); Bilirubin,Total 0.4 mg/dL (0.2-1.0); C-Reactive Protein 0.7 mg/dL (0.0-0.9); Calcium 9.4 mg/dL (8.5-10.1); Globulin 5.3 gm/dl (1.3-3.2); Total Protein,Serum 8.3 gm/dL (6.4-8.2)
[2018-09-29 20:11] LABS: Microscopic, Urine URINE MICROSCOPIC (MICROSCOPIC)
--- NOTE | 2018-09-29 20:15 | Emergency Department Note ---
ED Disposition Clinical Impression: Cellulitis of right foot Disposition: Admitted as Observation Condition on Discharge: Fair Referrals: Joshua Urban MD [Primary Care Provider] - - Critical Care Critical Care Time: No Attestation: On 09/29/18, the high probability of a clinically significant, sudden or life threatening deterioration of the following system(s) required my full and direct attention, intervention and personal management. The time I documented below is in addition to time spent performing reported procedures but includes the following listed in this critical care notation. Medical Decision Making - Jordin Inquiry Pt receiving controlled substance: Yes Jordin was queried for this patient: Yes Reference #:: [id number] Risks and benefits of using a controlled substance: were discussed with pt by me Comment: 15 rxs. Vital Signs: 09/29/18 19:36 Temperature 98.0 F Temperature Source Oral Pulse Rate [Left Radial] 62 Respiratory Rate 18 Blood Pressure [Right Arm] 100/54 L Blood Pressure Mean [Right Arm] 69 Blood Pressure Source [Right Arm] Automatic Cuff Blood Pressure Position [Right Arm] Sitting 02 Sat by Pulse Oximetry 96 Oxygen Delivery Method Room Air - Lab Data Lab Results 09/29/18 19:17: Sodium 138, Potassium 3.7, Chloride 99, Carbon Dioxide 30, Anion Gap 12.7, BUN 44 H, Creatinine 1.55 H, Estimated Creat Clear 46, Estimated GFR 34 L, Est GFR ( Amer) 42 L, Glucose 236 H, Calcium 9.4, Total Bilirubin 0.4, AST 12 L, ALT 26, Alkaline Phosphatase 135 H, C-Reactive Protein 0.7, Total Protein 8.3 H, Albumin 3.0 L, Globulin 5.3 H, Albumin/Globulin Ratio 0.6 L 09/29/18 19:17: WBC 14.9 H, RBC 5.69 H, Hgb 15.9, Hct 50.0 H, MCV 87.9, MCH 28.0, MCHC 31.9, RDW 14.3, Plt Count 334, MPV 7.3 L, Neut % (Auto) 46.6, Lymph % (Auto) 44.2, [place] % (Auto) 6.5, Eos % (Auto) 1.9, Baso % (Auto) 0.8, Neut # (Auto) 6.9, Lymph # (Auto) 6.6 H, [place] # (Auto) 1.0, Eos # (Auto) 0.3, Baso # (Auto) 0.1 09/29/18 19:59: Lactate 1.9 09/29/18 20:05: Urine Color Yellow, Urine Appearance Clear, Urine pH 5.5, Ur Specific [place] 1.015, Urine Protein Negative, Urine Glucose (UA) Negative, Urine Ketones Negative, Urine Blood Negative, Urine Nitrate Negative, Urine Bilirubin Negative, Urine Urobilinogen 0.2, Ur Leukocyte Esterase Negative, Urine WBC Occasional, Ur Squamous Epith Cells Occasional, Urine Bacteria Trace Result diagrams: 09/29/18 19:17 09/29/18 19:17 Orders (Tests/Meds): ED MEDICATIONS Generic Name Dose Route Start Last Admin Trade Name Freq PRN Reason Stop Dose Admin Clindamycin Phosphate 600 mg/ 104 mls @ 100 mls/hr 09/29/18 20:45 Sodium Chloride IV 10/13/18 20:44 Q6H [facility] Protocol Miscellaneous 1 each 09/29/18 20:45 Vancomycin Consult Request NOTAPPLIC 09/30/18 08:40 CONSULT PHARMACY [facility] Morphine Sulfate 4 mg 09/29/18 20:45 Morphine 4mg/Ml Syringe IV 09/29/18 20:46 ONCE ONE ORDERS Category Date Time Status XR foot RT 2V Stat Exams 09/29/18 19:47 Taken Erythrocyte Sedimentation Rate Stat Lab 09/29/18 19:17 Received Blood Culture Stat Micro 09/29/18 19:59 Received - Physician Consults Physician Consulted: Jevon Urban Time: 20:41 Reason -: Admission Comment/Response: Agrees to admit the patient to the hospital. We discussed the patient's clinical information, including history, exam, laboratory and radiology results and ED course. Per hospital procedure, I will write temporary bridge inpatient orders on the patient. Specific orders requested by the admitting physician: Vancomycin and clindamycin General Adult HPI - General Chief complaint: PAIN Stated complaint: R Left and Foot Hot and swollen Time Seen by Provider: 09/29/18 20:14 Mode of Arrival: Ambulatory Limitations: Physical Limitations Description of Symptoms (Recalled from ER Triage Doc. by RN): right foot has been red and swollen for the past four days. pt c/o of pain of right foot and calf when ambulating. - History of Present Illness HPI narrative: 4-day history of right foot redness, swelling, and pain. Denies fevers but has had chills. She is diabetic. No injury or open skin wounds noted. Denies prior history of cellulitis or diabetic foot infection. States has chronic pain in multiple locations on her body, chronically on pain medication. States her current pain level is 50/10. - Related Data Home Medications Medication Instructions Recorded Confirmed furosemide 80 mg tablet 80 mg PO BID tab 03/18/17 09/29/18 ipratropium-albuterol 0.5 mg-3 3 ml INHALATION QID 07/25/17 09/29/18 mg(2.5 mg base)/3 mL nebulization soln ranitidine 150 mg tablet 150 mg PO BID 30 Days tab 09/29/17 09/29/18 Fluticasone Propionate [Flonase 1 spray INTRANASAL DAILY 05/17/18 09/29/18 Allergy Relief NS] Isosorbide Mononitrate [Imdur 30mg 30 mg PO DAILY 05/17/18 09/29/18 ER tablet] Ropinirole HCl 1 mg PO BID 05/17/18 09/29/18 Metoprolol Succinate 50 mg PO DAILY 09/29/18 09/29/18 Sertraline HCl [Zoloft] See Rx Instructions .ROUTE .COMPLEX 09/29/18 09/29/18 Previous Rx's Medication Instructions Recorded cholecalciferol (vitamin D3) 1,000 1,000 unit PO DAILY #90 cap 10/26/17 unit capsule fluticasone fur. 100 mcg-umeclid 2 inh INHALATION Q24H #60 each 05/15/18 62.5 mcg-vilant 25 mcg inhalat.powder albuterol sulfate HFA 90 2 puff INHALATION Q4-6H PRN 90 06/14/18 mcg/actuation aerosol inhaler Days #3 units buspirone 15 mg tablet 15 mg PO TID #270 tab 07/12/18 pantoprazole 40 mg tablet,delayed 40 mg PO QAM #90 tab 07/12/18 release quetiapine 200 mg tablet 200 mg PO DAILY #90 tab 07/12/18 insulin NPH-regular 70-30 U-100 See Rx Instructions SQ DAILY #15 ml 08/10/18 insulin 100 unit/mL subcutaneous pen oxycodone-acetaminophen 7.5 mg-325 1 tab PO QID PRN #120 tab 08/18/18 mg tablet Allergies Allergy/AdvReac Type Severity Reaction Status Date / Time methocarbamol Allergy Severe Altered Verified 09/29/18 19:42 mental status celecoxib [From CELEBREX] Allergy Mild Verified 09/29/18 19:42 Sulfa (Sulfonamide Allergy Mild Verified 09/29/18 19:42 Antibiotics) [SULFA (SULFONAMIDE ANTIBIOTICS)] tramadol [TRAMADOL] Allergy Mild Verified 09/29/18 19:42 aspirin [ASPIRIN] Allergy Unknown I-RASH Verified 09/29/18 19:42 bupropion [BUPROPION] Allergy Unknown Verified 09/29/18 19:42 citalopram [CITALOPRAM] Allergy Unknown SKIN PEEL Verified 09/29/18 19:42 codeine [CODEINE] Allergy Unknown Verified 09/29/18 19:42 duloxetine [DULOXETINE] Allergy Unknown Verified 09/29/18 19:42 erythromycin base Allergy Unknown I-RASH Verified 09/29/18 19:42 [ERYTHROMYCIN BASE] naproxen [NAPROXEN] Allergy Unknown Verified 09/29/18 19:42 Penicillins [PENICILLINS] Allergy Unknown I-RASH Verified 09/29/18 19:42 pregabalin [PREGABALIN] Allergy Unknown Verified 09/29/18 19:42 terbutaline [TERBUTALINE] Allergy Unknown SWELLS Verified 09/29/18 19:42 THROAT [facility] History - Hepatitis A Screen Drug use history?: No High risk sexual behaviors?: No History of sexually transmitted infection?: No Currently employed?: No Childcare worker?: No Do you have indoor plumbing?: Yes Do you have electricity?: Yes Attestation statement:: This patient has been screened for Hepatitis A risk factors. I have reviewed the patient's past medical history: Yes Medical History: Reports:: Anxiety, Atrial Fibrillation, Chronic Obstructive Pulmonary Disease (COPD), Depression, Diabetes Mellitus Type 2, Gastroesophageal Reflux Disease(GERD), Hyperlipidemia, Hypertension, Migraine, Renal Insufficiency Denies:: Cancer, Diabetes Mellitus Type 1, MRSA Other Medical History: Reports: Glaucoma, Other Comment: ANNIE, E Coli Laterality Cases: Other Surgeries: Yes: Appendectomy, Cardiac Catheterization, Cholecystectomy, Colonoscopy, Diagnostic Lap, Hysterectomy-Total, Tubal Ligation, Other Amputation: No Fractures: No Comment: loop recorder, wrist. Lung BX - Social History Smoking Status: Former smoker Tobacco Type: cigarettes Alcohol Intake: never Alcohol Intake Frequency:: other Substance Use Type: denies use Occupational Status: unemployed - Psychiatric History Pschychiatric History:: Reports:: Anxiety, Depression Family Hx:: Cancer, Diabetes ROS Obtained: Yes All systems reviewed & no additional complaints - Constitutional Constitutional: Reports chills, Denies fever(s) - Cardiovascular Cardiovascular: Denies chest pain - Respiratory Respiratory: No cough, No dyspnea - Gastrointestinal Gastrointestingal: Reports: diarrhea. Denies: abdominal pain, vomiting - Musculoskeletal Musculoskeletal: Reports as per HPI Physical Exam - General General appearance: alert, in no apparent distress - Head Head exam: atraumatic, normocephalic - Eye Eye exam: Present: normal appearance, EOMI - ENT ENT exam: Present: mucous membranes moist - Neck Neck exam: Present: normal inspection, trachea midline - Chest Chest inspection: Present: normal inspection, symmetric chest wall rise - Respiratory Respiratory exam: Present: normal lung sounds bilaterally. Absent: respiratory distress - Cardiovascular Cardiovascular exam: Present: regular rate, normal rhythm, normal heart sounds - Abdominal Exam Abdominal exam: Present: soft, normal bowel sounds. Absent: distention, tenderness - Extremities Exam Extremities exam: Present: normal capillary refill - Neurological Exam Neurological exam: Present: alert, oriented X3 - Psychiatric Psychiatric exam: Present: normal affect, normal mood - Skin Skin exam: Present: warm, dry - Other Other exam information: Erythema and edema of right foot. Involves the small toe, lateral aspect of the foot, and dorsal midfoot. Area of erythema is approximately the size of my hand. Mild edema, tenderness to palpation. No ascending lymphangitis. No fluctuance or abscesses. I do not see any openings in the skin. Minimal hyperkeratosis between the fourth and fifth toes. No diabetic foot ulcers. Nails are in good condition.
[2018-09-29 20:16] LABS: Appearance,Urine CLEAR (Clear); Bilirubin,Urine Negative (Negative); Blood, Urine Negative (Negative); Color,Urine YELLOW (Yellow); Glucose,Urine (UA) Negative (Negative); Ketones,Urine Negative (Negative); Leukocyte Esterase,Urine Negative (Negative); PH,Urine 5.5 (5.0-8.5); Protein,Urine Negative (Negative); Specific Gravity, Urine 1.015 (1.005-1.030); Urobilinogen,Urine 0.2 EU/dl (0.2)
[2018-09-29 20:26] LABS: Bacteria,Urine Trace /lpf; Squamous Epithelial Cell,Urine Occasional #/hpf (0-5); WBC,Urine Occasional #/hpf (0-3)
[2018-09-30 06:50] LABS: Basophils # 0.1 K/mm3 (0-0.2); Basophils % 0.7 % (0.1-2.0); Eosinophils # 0.3 K/mm3 (0.0-0.4); Eosinophils % 2.2 % (0.1-12.0); Hematocrit 46.1 % (37.0-47.0); Hemoglobin 14.4 g/dL (12.2-16.2); Lymphocytes # 6.6 K/mm3 (0.7-4.5); Lymphocytes % 53.1 % (10-50); Mean Corpuscular HGB Conc 31.3 g/dL (31.8-35.4); Mean Corpuscular Volume 88.3 fl (81-99); Mean Platelet Volume 7.2 fl (7.4-10.4); Monocytes # 0.8 K/mm3 (0.1-1.0); Monocytes % 6.8 % (1.7-9.3); Neutrophils # 4.6 K/mm3 (1.8-7.8); Neutrophils % 37.2 % (37.0-80.0); Platelet Count 312 K/mm3 (142-424); Red Blood Count 5.22 M/mm3 (4.20-5.40); Red Cell Distribution Width 14.2 % (11.5-17.5); White Blood Count 12.4 K/mm3 (4.8-10.8)
[2018-09-30 06:52] LABS: Anion Gap 9.1 mEq/L (5-15); Calcium 8.5 mg/dL (8.5-10.1)
[2018-09-30 09:10] LABS: Eosinophils % 1 % (0-3); Lymphocytes % 46 % (10-50); Monocytes % 11 % (2-9); Neutrophils % 38 % (42-76); RBC Morphology Normal; Total Cells Counted 100
--- NOTE | 2018-09-30 09:31 | History & Physical Report ---
*Admission Date: 09/29/18 *Chief complaint: foot pain *History of present illness: 58 yr old female presented to the ER with complaints of 4-day history of right foot redness, chills,swelling, and pain. She is diabetic. No injury,fever or open skin wounds noted. Denies prior history of cellulitis or diabetic foot infection. History of chronic pain and COPD with home O2 dependent. Patient admitted placed on IV antibiotics and venous Doppler to rule out a DVT. [facility] History I have reviewed the patient's past medical history: Yes Medical History: Reports:: Anxiety, Atrial Fibrillation, Cancer (PT STATES "I CAN'T REMEMBER WHERE THE CANCER ORIGINATED."), Chronic Obstructive Pulmonary Disease (COPD), Depression, Diabetes Mellitus Type 2, Gastroesophageal Reflux Disease(GERD), Hyperlipidemia, Hypertension, Migraine, Renal Insufficiency Denies:: Diabetes Mellitus Type 1, MRSA *Have you ever received a pneumonia vaccine?: Yes *Have you received a flu vaccine this season?: Yes Other Medical History: Reports: Cataracts, Glaucoma, Other Laterality Cases: Right: Carpal Tunnel Release, Bilateral: Tonsillectomy Other Surgeries: Yes: Appendectomy, Cardiac Catheterization, Cholecystectomy, Colonoscopy, Diagnostic Lap, Hysterectomy-Total (R/T CANCER), Tubal Ligation, Other Amputation: No Fractures: Yes (BACK) - *Social History Educational Level: Attended High School Smoking Status: Former smoker Tobacco Type: cigarettes # Packs/Day (cigarettes): 2 #Yrs smoked (if former smoker): 30 Alcohol Intake: never Alcohol Intake Frequency:: other Substance Use Type: denies use *Occupational Status:: unemployed Household Members: family *Travel in the last 8 weeks: None - Psychiatric History Expresses thoughts of harming self/others: None Suicide Plan Description: No Plan Pschychiatric History:: Reports:: Anxiety, Depression Family Hx:: Anemia, Asthma, Cancer, Coronary Artery Disease, Diabetes, Heart Attack, Hyperlipidemia, Hypertension, Kidney Disease, Stroke, Tuberculosis Review of Systems - Review of Systems Review of systems:: pertinent systems reviewed and negative unless documented below - Constitutional Reports chills, Denies fever(s) - Eyes Denies change in vision - ENT Denies dizziness, Denies difficulty swallowing - *Cardiovascular Denies chest pain at rest, Denies chest pain with activity, Denies shortness of breath, Denies shortness of breath with activity - *Respiratory Denies chest congestion, Denies cough - *Gastrointestinal Denies nausea, Denies vomiting - *Genitourinary Denies difficulty urinating - *Musculoskeletal Reports back pain - Integumentary/Breasts Reports redness, Denies rash - *Neurologic Denies dizziness - Psychiatric Denies anxiety - Endocrine Denies flushing - Hematologic/Lymphatic Denies enlarged lymph nodes - Allergic/Immunologic Denies lip swelling Meds Home Medications Medication Instructions Recorded Confirmed Type furosemide 80 mg tablet 80 mg PO BID tab 03/18/17 09/29/18 History ipratropium-albuterol 0.5 mg-3 3 ml INHALATION QID 07/25/17 09/29/18 History mg(2.5 mg base)/3 mL nebulization soln ranitidine 150 mg tablet 150 mg PO BID 30 Days tab 09/29/17 09/29/18 History cholecalciferol (vitamin D3) 1,000 1,000 unit PO DAILY #90 cap 10/26/17 09/29/18 Rx unit capsule fluticasone fur. 100 mcg-umeclid 2 inh INHALATION Q24H #60 each 05/15/18 09/29/18 Rx 62.5 mcg-vilant 25 mcg inhalat.powder Fluticasone Propionate [Flonase 1 spray INTRANASAL DAILY 05/17/18 09/29/18 History Allergy Relief NS] Isosorbide Mononitrate [Imdur 30mg 30 mg PO DAILY 05/17/18 09/29/18 History ER tablet] Ropinirole HCl 1 mg PO BID 05/17/18 09/29/18 History albuterol sulfate HFA 90 2 puff INHALATION Q4-6H PRN 90 06/14/18 09/29/18 Rx mcg/actuation aerosol inhaler Days #3 units buspirone 15 mg tablet 15 mg PO TID #270 tab 07/12/18 09/29/18 Rx pantoprazole 40 mg tablet,delayed 40 mg PO QAM #90 tab 07/12/18 09/29/18 Rx release quetiapine 200 mg tablet 200 mg PO DAILY #90 tab 07/12/18 09/29/18 Rx insulin NPH-regular 70-30 U-100 See Rx Instructions SQ DAILY #15 ml 08/10/18 09/29/18 Rx insulin 100 unit/mL subcutaneous pen oxycodone-acetaminophen 7.5 mg-325 1 tab PO QID PRN #120 tab 08/18/18 09/29/18 Rx mg tablet Metoprolol Succinate 50 mg PO DAILY 09/29/18 09/29/18 History Sertraline HCl [Zoloft] See Rx Instructions .ROUTE .COMPLEX 09/29/18 09/29/18 History Allergies Allergy/AdvReac Type Severity Reaction Status Date / Time methocarbamol Allergy Severe Altered Verified 09/29/18 19:42 mental status celecoxib [From CELEBREX] Allergy Mild Verified 09/29/18 19:42 Sulfa (Sulfonamide Allergy Mild Verified 09/29/18 19:42 Antibiotics) [SULFA (SULFONAMIDE ANTIBIOTICS)] tramadol [TRAMADOL] Allergy Mild Verified 09/29/18 19:42 aspirin [ASPIRIN] Allergy Unknown I-RASH Verified 09/29/18 19:42 bupropion [BUPROPION] Allergy Unknown Verified 09/29/18 19:42 citalopram [CITALOPRAM] Allergy Unknown SKIN PEEL Verified 09/29/18 19:42 codeine [CODEINE] Allergy Unknown Verified 09/29/18 19:42 duloxetine [DULOXETINE] Allergy Unknown Verified 09/29/18 19:42 erythromycin base Allergy Unknown I-RASH Verified 09/29/18 19:42 [ERYTHROMYCIN BASE] naproxen [NAPROXEN] Allergy Unknown Verified 09/29/18 19:42 Penicillins [PENICILLINS] Allergy Unknown I-RASH Verified 09/29/18 19:42 pregabalin [PREGABALIN] Allergy Unknown Verified 09/29/18 19:42 terbutaline [TERBUTALINE] Allergy Unknown SWELLS Verified 09/29/18 19:42 THROAT Exam Vital signs and Labs for Last 24 Hours: Temp Pulse Resp BP Pulse Ox 98.3 F 59 L 17 132/51 L 93 L 09/30/18 07:42 09/30/18 07:42 09/30/18 07:42 09/30/18 07:42 09/30/18 07:42 Laboratory Results - last 24 hr 09/29/18 19:17: ESR 6 09/29/18 19:17: Sodium 138, Potassium 3.7, Chloride 99, Carbon Dioxide 30, Anion Gap 12.7, BUN 44 H, Creatinine 1.55 H, Estimated Creat Clear 46, Estimated GFR 34 L, Est GFR ( Amer) 42 L, Glucose 236 H, Calcium 9.4, Total Bilirubin 0.4, AST 12 L, ALT 26, Alkaline Phosphatase 135 H, C-Reactive Protein 0.7, Total Protein 8.3 H, Albumin 3.0 L, Globulin 5.3 H, Albumin/Globulin Ratio 0.6 L 09/29/18 19:17: WBC 14.9 H, RBC 5.69 H, Hgb 15.9, Hct 50.0 H, MCV 87.9, MCH 28.0, MCHC 31.9, RDW 14.3, Plt Count 334, MPV 7.3 L, Neut % (Auto) 46.6, Lymph % (Auto) 44.2, [place] % (Auto) 6.5, Eos % (Auto) 1.9, Baso % (Auto) 0.8, Neut # (Auto) 6.9, Lymph # (Auto) 6.6 H, [place] # (Auto) 1.0, Eos # (Auto) 0.3, Baso # (Auto) 0.1 09/29/18 19:59: Lactate 1.9 09/29/18 20:05: Urine Color Yellow, Urine Appearance Clear, Urine pH 5.5, Ur Specific [place] 1.015, Urine Protein Negative, Urine Glucose (UA) Negative, Urine Ketones Negative, Urine Blood Negative, Urine Nitrate Negative, Urine Bilirubin Negative, Urine Urobilinogen 0.2, Ur Leukocyte Esterase Negative, U rine WBC Occasional, Ur Squamous Epith Cells Occasional, Urine Bacteria Trace 09/30/18 06:16: WBC 12.4 H, RBC 5.22, Hgb 14.4, Hct 46.1, MCV 88.3, MCH 27.6, MCHC 31.3 L, RDW 14.2, Plt Count 312, MPV 7.2 L, Neut % (Auto) 37.2, Lymph % (Auto) 53.1 H, [place] % (Auto) 6.8, Eos % (Auto) 2.2, Baso % (Auto) 0.7, Neut # (Auto) 4.6, Lymph # (Auto) 6.6 H, [place] # (Auto) 0.8, Eos # (Auto) 0.3, Baso # (Auto) 0.1, Total Counted 100, Neutrophils % (Manual) 38 L, Lymphocytes % (Manual) 46, Atypical Lymphs % 4.0, Monocytes % (Manual) 11 H, Eosinophils % (Manual) 1, Platelet Estimate Normal, RBC Morphology Normal 09/30/18 06:16: Sodium 142, Potassium 4.1, Chloride 105, Carbon Dioxide 32, Anion Gap 9.1, BUN 41 H, Creatinine 1.44 H, Estimated Creat Clear 56, Estimated GFR 38 L, Est GFR ( Amer) 45 L, Glucose 282 H, Calcium 8.5 09/30/18 06:31: POC Glucose 272 H I & O for Last 24 hours: Intake & Output 09/27/18 09/28/18 09/29/18 09/30/18 11:59 11:59 11:59 11:59 Weight 182 lb 3 oz - Constitutional no acute distress, chronically ill appearing - *Routine HEENT Exam Head: Present: normocephalic Eye: Present: PERRL ENT: Present: mucous membranes moist - *Routine Neck Exam Present: supple. Absent: lymphadenopathy - *Routine Respiratory Exam Present: CTA bilaterally, wheezes - *Routine Cardiovascular Exam Present: RRR - *Routine Abdominal Exam Present: soft, normoactive bowel sounds. Absent: tenderness - *Routine Extremities Exam Present: pulses intact, normal capillary refill, tenderness. Absent: cyanosis, clubbing, edema - *Routine Skin Exam Present: erythema, warm. Absent: rash - *Routine Neurological Exam Present: alert, oriented X3 - Routine Psychiatric Exam Present: normal affect Assessment and Plan - Assessment and plan all Dx Assessment and Plan for all problems:: Dr Urban will round later today, all orders per Dr Urban
--- NOTE | 2018-09-30 09:51 | Pharmacy Consult Notes ---
- Pharmacy Consult Date: 09/30/18 Time: 09:50 Referring provider: DR. GOMEZ Reason for Consult:: VANCOMYCIN DOSING Allergies and ADEs:: Allergies Allergy/AdvReac Type Severity Reaction Status Date / Time methocarbamol Allergy Severe Altered Verified 09/29/18 19:42 mental status celecoxib [From CELEBREX] Allergy Mild Verified 09/29/18 19:42 Sulfa (Sulfonamide Allergy Mild Verified 09/29/18 19:42 Antibiotics) [SULFA (SULFONAMIDE ANTIBIOTICS)] tramadol [TRAMADOL] Allergy Mild Verified 09/29/18 19:42 aspirin [ASPIRIN] Allergy Unknown I-RASH Verified 09/29/18 19:42 bupropion [BUPROPION] Allergy Unknown Verified 09/29/18 19:42 citalopram [CITALOPRAM] Allergy Unknown SKIN PEEL Verified 09/29/18 19:42 codeine [CODEINE] Allergy Unknown Verified 09/29/18 19:42 duloxetine [DULOXETINE] Allergy Unknown Verified 09/29/18 19:42 erythromycin base Allergy Unknown I-RASH Verified 09/29/18 19:42 [ERYTHROMYCIN BASE] naproxen [NAPROXEN] Allergy Unknown Verified 09/29/18 19:42 Penicillins [PENICILLINS] Allergy Unknown I-RASH Verified 09/29/18 19:42 pregabalin [PREGABALIN] Allergy Unknown Verified 09/29/18 19:42 terbutaline [TERBUTALINE] Allergy Unknown SWELLS Verified 09/29/18 19:42 THROAT Home Medications:: Home Medications Medication Instructions Recorded Confirmed Type furosemide 80 mg tablet 80 mg PO BID tab 03/18/17 09/29/18 History ipratropium-albuterol 0.5 mg-3 3 ml INHALATION QID 07/25/17 09/29/18 History mg(2.5 mg base)/3 mL nebulization soln ranitidine 150 mg tablet 150 mg PO BID 30 Days tab 09/29/17 09/29/18 History cholecalciferol (vitamin D3) 1,000 1,000 unit PO DAILY #90 cap 10/26/17 09/29/18 Rx unit capsule fluticasone fur. 100 mcg-umeclid 2 inh INHALATION Q24H #60 each 05/15/18 09/29/18 Rx 62.5 mcg-vilant 25 mcg inhalat.powder Fluticasone Propionate [Flonase 1 spray INTRANASAL DAILY 05/17/18 09/29/18 History Allergy Relief NS] Isosorbide Mononitrate [Imdur 30mg 30 mg PO DAILY 05/17/18 09/29/18 History ER tablet] Ropinirole HCl 1 mg PO BID 05/17/18 09/29/18 History albuterol sulfate HFA 90 2 puff INHALATION Q4-6H PRN 90 06/14/18 09/29/18 Rx mcg/actuation aerosol inhaler Days #3 units buspirone 15 mg tablet 15 mg PO TID #270 tab 07/12/18 09/29/18 Rx pantoprazole 40 mg tablet,delayed 40 mg PO QAM #90 tab 07/12/18 09/29/18 Rx release quetiapine 200 mg tablet 200 mg PO DAILY #90 tab 07/12/18 09/29/18 Rx insulin NPH-regular 70-30 U-100 See Rx Instructions SQ DAILY #15 ml 08/10/18 09/29/18 Rx insulin 100 unit/mL subcutaneous pen oxycodone-acetaminophen 7.5 mg-325 1 tab PO QID PRN #120 tab 08/18/18 09/29/18 Rx mg tablet Metoprolol Succinate 50 mg PO DAILY 09/29/18 09/29/18 History Sertraline HCl [Zoloft] See Rx Instructions .ROUTE .COMPLEX 09/29/18 09/29/18 History Height: 1.65 m Weight: 82.639 kg Laboratory Results:: Laboratory Results - last 24 hr 09/29/18 19:17: ESR 6 09/29/18 19:17: Sodium 138, Potassium 3.7, Chloride 99, Carbon Dioxide 30, Anion Gap 12.7, BUN 44 H, Creatinine 1.55 H, Estimated Creat Clear 46, Estimated GFR 34 L, Est GFR ( Amer) 42 L, Glucose 236 H, Calcium 9.4, Total Bilirubin 0.4, AST 12 L, ALT 26, Alkaline Phosphatase 135 H, C-Reactive Protein 0.7, Total Protein 8.3 H, Albumin 3.0 L, Globulin 5.3 H, Albumin/Globulin Ratio 0.6 L 09/29/18 19:17: WBC 14.9 H, RBC 5.69 H, Hgb 15.9, Hct 50.0 H, MCV 87.9, MCH 28.0, MCHC 31.9, RDW 14.3, Plt Count 334, MPV 7.3 L, Neut % (Auto) 46.6, Lymph % (Auto) 44.2, [place] % (Auto) 6.5, Eos % (Auto) 1.9, Baso % (Auto) 0.8, Neut # (Auto) 6.9, Lymph # (Auto) 6.6 H, [place] # (Auto) 1.0, Eos # (Auto) 0.3, Baso # (Auto) 0.1 09/29/18 19:59: Lactate 1.9 09/29/18 20:05: Urine Color Yellow, Urine Appearance Clear, Urine pH 5.5, Ur Specific [place] 1.015, Urine Protein Negative, Urine Glucose (UA) Negative, Urine Ketones Negative, Urine Blood Negative, Urine Nitrate Negative, Urine Bilirubin Negative, Urine Urobilinogen 0.2, Ur Leukocyte Esterase Negative, Urine WBC Occasional, Ur Squamous Epith Cells Occasional, Urine Bacteria Trace 09/30/18 06:16: WBC 12.4 H, RBC 5.22, Hgb 14.4, Hct 46.1, MCV 88.3, MCH 27.6, MCHC 31.3 L, RDW 14.2, Plt Count 312, MPV 7.2 L, Neut % (Auto) 37.2, Lymph % (Auto) 53.1 H, [place] % (Auto) 6.8, Eos % (Auto) 2.2, Baso % (Auto) 0.7, Neut # (Auto) 4.6, Lymph # (Auto) 6.6 H, [place] # (Auto) 0.8, Eos # (Auto) 0.3, Baso # (Auto) 0.1, Total Counted 100, Neutrophils % (Manual) 38 L, Lymphocytes % (Manual) 46, Atypical Lymphs % 4.0, Monocytes % (Manual) 11 H, Eosinophils % (Manual) 1, Platelet Estimate Normal, RBC Morphology Normal 09/30/18 06:16: Sodium 142, Potassium 4.1, Chloride 105, Carbon Dioxide 32, Anion Gap 9.1, BUN 41 H, Creatinine 1.44 H, Estimated Creat Clear 56, Estimated GFR 38 L, Est GFR ( Amer) 45 L, Glucose 282 H, Calcium 8.5 09/30/18 06:31: POC Glucose 272 H Medical History: Reports:: Anxiety, Atrial Fibrillation, Cancer (PT STATES "I CAN'T REMEMBER WHERE THE CANCER ORIGINATED."), Chronic Obstructive Pulmonary Disease (COPD), Depression, Diabetes Mellitus Type 2, Gastroesophageal Reflux Disease(GERD), Hyperlipidemia, Hypertension, Migraine, Renal Insufficiency Denies:: Diabetes Mellitus Type 1, MRSA Assessment and Plan - Assessment and plan all Dx Assessment and Plan for all problems:: BASED ON PATIENT FACTORS, RECOMMEND VANCOMYCIN 1,500MG EVERY 24 HOURS. PHARMACY WILL OBTAIN TROUGH LEVEL PRIOR TO FOURTH DOSE AND ADJUST DOSE APPROPRIATE AT THAT POINT. -EVON ZEE, RUELD
--- NOTE | 2018-09-30 14:08 | Pharmacy Consult Notes ---
[facility] Pharmacy VTE Monitoring - Patient Demographics Admission date: 09/29/18 Report Date: 09/30/18 Time: 14:08 Allergies/Adverse Reactions: Patient Allergies methocarbamol Allergy (Severe, Verified 09/29/18 19:42) Altered mental status celecoxib [From CELEBREX] Allergy (Mild, Verified 09/29/18 19:42) Sulfa (Sulfonamide Antibiotics) [SULFA (SULFONAMIDE ANTIBIOTICS)] Allergy (Mild, Verified 09/29/18 19:42) tramadol [TRAMADOL] Allergy (Mild, Verified 09/29/18 19:42) aspirin [ASPIRIN] Allergy (Unknown, Verified 09/29/18 19:42) I-RASH bupropion [BUPROPION] Allergy (Unknown, Verified 09/29/18 19:42) citalopram [CITALOPRAM] Allergy (Unknown, Verified 09/29/18 19:42) SKIN PEEL codeine [CODEINE] Allergy (Unknown, Verified 09/29/18 19:42) duloxetine [DULOXETINE] Allergy (Unknown, Verified 09/29/18 19:42) erythromycin base [ERYTHROMYCIN BASE] Allergy (Unknown, Verified 09/29/18 19:42) I-RASH naproxen [NAPROXEN] Allergy (Unknown, Verified 09/29/18 19:42) Penicillins [PENICILLINS] Allergy (Unknown, Verified 09/29/18 19:42) I-RASH pregabalin [PREGABALIN] Allergy (Unknown, Verified 09/29/18 19:42) terbutaline [TERBUTALINE] Allergy (Unknown, Verified 09/29/18 19:42) SWELLS THROAT Height: 1.65 m Weight: 82.639 kg Patient Problems: Current Active Problems Cellulitis of right foot (Acute) - VTE Risk Labs: VTE Related Lab Results Hgb 14.4 g/dL (12.2-16.2) 09/30/18 06:16 Hct 46.1 % (37.0-47.0) 09/30/18 06:16 Plt Count 312 K/mm3 (142-424) 09/30/18 06:16 BUN 41 mg/dL (7-18) H 09/30/18 06:16 Creatinine 1.44 mg/dL (0.55-1.02) H 09/30/18 06:16 Estimated Creat Clear 56 mL/min (50-200) 09/30/18 06:16 Was VTE Risk Assessment Performed: Yes VTE Score: 10 VTE Risk Level: Moderate Risk - Prophylaxis VTE Prophylaxis Ordered?: Yes Types of VTE Prophylaxis: TEDS Knee High Location of Applied Device: Left Leg - VTE Diagnosis Confirmed Treatment or plan recommended: Continue Current Treatment
[2018-09-30 17:46] LABS: Creatine Kinase 34 U/L (26-192)
[2018-10-01 06:17] LABS: Basophils # 0.1 K/mm3 (0-0.2); Basophils % 0.6 % (0.1-2.0); Eosinophils # 0.3 K/mm3 (0.0-0.4); Eosinophils % 2.5 % (0.1-12.0); Hematocrit 43.2 % (37.0-47.0); Hemoglobin 13.5 g/dL (12.2-16.2); Lymphocytes # 3.4 K/mm3 (0.7-4.5); Mean Corpuscular HGB Conc 31.3 g/dL (31.8-35.4); Mean Corpuscular Volume 88.1 fl (81-99); Mean Platelet Volume 7.6 fl (7.4-10.4); Monocytes # 0.8 K/mm3 (0.1-1.0); Monocytes % 7.9 % (1.7-9.3); Neutrophils # 5.6 K/mm3 (1.8-7.8); Neutrophils % 55.2 % (37.0-80.0); Platelet Count 304 K/mm3 (142-424); Red Cell Distribution Width 14.4 % (11.5-17.5); White Blood Count 10.1 K/mm3 (4.8-10.8)
[2018-10-01 06:29] LABS: Anion Gap 12.5 mEq/L (5-15); Calcium 8.9 mg/dL (8.5-10.1)
--- NOTE | 2018-10-01 09:06 | Progress Note ---
Internal Medicine - PN: Subj *Date: 10/01/18 *Time: 09:03 Interval history: rt foot red and tender - and has neg ct for pe and pos rt dvt - will start eliquis and give dose of prednisone Exam Vital signs and Labs for Last 24 Hours: Temp Pulse Resp BP Pulse Ox 97.7 F 72 18 146/85 H 95 10/01/18 07:26 10/01/18 07:26 10/01/18 07:26 10/01/18 07:26 10/01/18 07:26 Laboratory Results - last 24 hr 09/30/18 06:16: Total Counted 100, Neutrophils % (Manual) 38 L, Lymphocytes % (Manual) 46, Atypical Lymphs % 4.0, Monocytes % (Manual) 11 H, Eosinophils % (Ma nual) 1, Platelet Estimate Normal, RBC Morphology Normal 09/30/18 11:25: POC Glucose 225 H 09/30/18 16:20: POC Glucose 267 H 09/30/18 17:10: Total Creatine Kinase 34, CK-MB (CK-2) 0.6, CK-MB (CK-2) Rel Index 1.8, Troponin I < 0.02 09/30/18 20:38: POC Glucose 218 H 10/01/18 05:30: WBC 10.1, RBC 4.90, Hgb 13.5, Hct 43.2, MCV 88.1, MCH 27.6, MCHC 31.3 L, RDW 14.4, Plt Count 304, MPV 7.6, Neut % (Auto) 55.2, Lymph % (Auto) 34.0, [place] % (Auto) 7.9, Eos % (Auto) 2.5, Baso % (Auto) 0.6, Neut # (Auto) 5.6, Lymph # (Auto) 3.4, [place] # (Auto) 0.8, Eos # (Auto) 0.3, Baso # (Auto) 0.1 10/01/18 05:30: Sodium 142, Potassium 3.5, Chloride 104, Carbon Dioxide 29, Anion Gap 12.5, BUN 32 H, Creatinine 1.19 H, Estimated Creat Clear 69, Estimated GFR 47 L, Est GFR ( Amer) 57 L D, Glucose 279 H, Calcium 8.9 10/01/18 05:47: POC Glucose 259 H I & O for Last 24 hours: Intake & Output 09/28/18 09/29/18 09/30/18 10/01/18 11:59 11:59 11:59 11:59 Intake Total 2570 / 2570 Balance 2570 / 2570 Weight 182 lb 3 oz 184 lb 8 oz - Constitutional no acute distress, obese - *Routine HEENT Exam Head: Present: normocephalic Eye: Present: EOMI, PERRL ENT: Present: mucous membranes dry - *Routine Neck Exam Present: supple - *Routine Respiratory Exam Present: wheezes - *Routine Cardiovascular Exam Present: RRR, murmur - *Routine Abdominal Exam Present: soft - *Routine Extremities Exam Comments: rt foot warm most consistent with arthritis - neuro ok - *Routine Skin Exam Present: dry - *Routine Neurological Exam Present: alert, oriented X3, CN II-XII intact - Routine Psychiatric Exam Present: normal affect Assessment and Plan (1) DVT (deep venous thrombosis) Current visit: Yes Status: Acute Qualifiers: DVT location: lower extremity Affected thrombotic vein of extremity: unspecified vein of extremity Chronicity: acute Laterality: right Qualified Code(s): I82.401 - Acute embolism and thrombosis of unspecified deep veins of right lower extremity Category: Medical Code(s): I82.409 - Acute embolism and thrombosis of unspecified deep veins of unspecified lower extremity
--- NOTE | 2018-10-02 13:50 | Discharge Summary ---
General - General Admission date:: 09/29/18 Discharge date: 10/02/18 HPI HPI: 58 yr old female presented to the ER with complaints of 4-day history of right foot redness, chills,swelling, and pain. She is diabetic. No injury,fever or open skin wounds noted. Denies prior history of cellulitis or diabetic foot infection. History of chronic pain and COPD with home O2 dependent. Patient admitted placed on IV antibiotics and venous Doppler to rule out a DVT. Hospital Course Hospital Course: this pt continued to have rt lower leg pain and had venous doppler with positive dvt and was started on eliquis and had neg ct of chest for pul emboli but showed sig copd-pt had changes to rt foot which appeared to be consistent with acute arthritis- she has elevated glu sec to steroids -will d/c on eliquis 10 mg bid x 6 days then 5 mg bid for at least 3 months - Objective Vital signs: Temp Pulse Resp BP Pulse Ox 98.1 F 76 20 162/74 H 97 10/02/18 08:00 10/02/18 10:15 10/02/18 08:00 10/02/18 08:00 10/02/18 08:00 no acute distress - *Routine HEENT Exam Head: Present: normocephalic Eye: Present: EOMI, PERRL ENT: Present: mucous membranes dry - *Routine Neck Exam Present: supple. Absent: JVD - *Routine Respiratory Exam Present: CTA bilaterally - *Routine Cardiovascular Exam Present: RRR, murmur - *Routine Abdominal Exam Present: soft - *Routine Extremities Exam Present: calf tenderness Comments: changes rt foot with inc warmth - *Routine Skin Exam Present: intact - *Routine Neurological Exam Present: alert, oriented X3, CN II-XII intact, motor deficit - Routine Psychiatric Exam Present: normal affect Results Labs on day of discharge: Labs from last 24 hours 10/02/18 10/02/18 10/02/18 11:07 09:57 06:43 POC Glucose 173 H 152 H 349 H* Stl Aeromonas (PCR) Stl C. cayetanensis PCR Stool Rotavirus (PCR) Stl Adenov F 40/41 PCR Stool Astrovirus (PCR) Stool Campylobacter PCR Stl C.difficile Tox PCR Stool Cryptosporidium PCR Stl E.coli Shiga Tox PCR Stool E coli O157 PCR Stl Enterotoxigenic E PCR Stool EPEC (PCR) Stool EAEC (PCR) Stl E. histolytica PCR Stool Giardia Lamblia PCR Stool Salmonella PCR Stool Sapovirus (PCR) Stl P. shigelloides PCR Stl Shigella/EIEC PCR St Y.enterocolitica PCR Stool Vibrio (PCR) Stl Vibrio cholerae PCR Stl Norovirus GI/GII PCR 10/02/18 10/01/18 10/01/18 06:40 20:03 15:54 POC Glucose 339 H* 342 H* Stl Aeromonas (PCR) Not detected Stl C. cayetanensis PCR Not detected Stool Rotavirus (PCR) Not detected Stl Adenov F 40/41 PCR Not detected Stool Astrovirus (PCR) Not detected Stool Campylobacter PCR Not detected Stl C.difficile Tox PCR Not detected Stool Cryptosporidium PCR Not detected Stl E.coli Shiga Tox PCR Not detected Stool E coli O157 PCR Not detected Stl Enterotoxigenic E PCR Not detected Stool EPEC (PCR) Not detected Stool EAEC (PCR) Not detected Stl E. histolytica PCR Not detected Stool Giardia Lamblia PCR Not detected Stool Salmonella PCR Not detected Stool Sapovirus (PCR) Not detected Stl P. shigelloides PCR Not detected Stl Shigella/EIEC PCR Not detected St Y.enterocolitica PCR Not detected Stool Vibrio (PCR) Not detected Stl Vibrio cholerae PCR Not detected Stl Norovirus GI/GII PCR Not detected Preliminary micro results at discharge 09/29/18 19:59 Blood Culture - Preliminary Blood NO GROWTH AFTER 48 HOURS 09/29/18 19:59 Blood Culture - Preliminary Blood NO GROWTH AFTER 48 HOURS DS: Diagnosis - Discharge Diagnosis (1) DVT (deep venous thrombosis) Status: Acute (2) COPD (chronic obstructive pulmonary disease) Status: Acute (3) Renal insufficiency Status: Acute (4) Diabetes mellitus Status: Acute (5) Foot pain, right Status: Acute Discharge Plan - Patient Discharge Instructions ACTIVITY: Continue current activity DIET: continue same diet Patient Instructions: Deep Vein Thrombosis, DI for Deep Vein Thrombosis - Follow up Plan Disposition: Home, Self-Long Term Medications: Home Medications Medication Instructions Recorded Confirmed Type furosemide 80 mg tablet 80 mg PO BID tab 03/18/17 09/29/18 History ranitidine 150 mg tablet 150 mg PO BID 30 Days tab 09/29/17 09/29/18 History cholecalciferol (vitamin D3) 1,000 1,000 unit PO DAILY #90 cap 10/26/17 09/29/18 Rx unit capsule Fluticasone Propionate [Flonase 1 spray INTRANASAL DAILY 05/17/18 09/29/18 History Allergy Relief NS] Isosorbide Mononitrate [Imdur 30mg 30 mg PO DAILY 05/17/18 09/29/18 History ER tablet] Ropinirole HCl 1 mg PO BID 05/17/18 09/29/18 History albuterol sulfate HFA 90 2 puff INHALATION Q4-6H PRN 90 06/14/18 09/29/18 Rx mcg/actuation aerosol inhaler Days #3 units buspirone 15 mg tablet 15 mg PO TID #270 tab 07/12/18 09/29/18 Rx pantoprazole 40 mg tablet,delayed 40 mg PO QAM #90 tab 07/12/18 09/29/18 Rx release quetiapine 200 mg tablet 200 mg PO DAILY #90 tab 07/12/18 09/29/18 Rx insulin NPH-regular 70-30 U-100 See Rx Instructions SQ DAILY #15 ml 08/10/18 09/29/18 Rx insulin 100 unit/mL subcutaneous pen oxycodone-acetaminophen 7.5 mg-325 1 tab PO QID PRN #120 tab 08/18/18 09/29/18 Rx mg tablet Metoprolol Succinate 50 mg PO DAILY 09/29/18 09/29/18 History Sertraline HCl [Zoloft] 150 mg PO DAILY 09/29/18 09/30/18 History Fluticasone/Umeclidin/Vilanter 1 puff INHALATION Q24H 09/30/18 09/30/18 History [Trelegy Ellipta] Ipratropium/Albuterol Sulfate 3 ml IH QID 09/30/18 09/30/18 History [Duoneb 3mL neb] Topiramate 50 mg PO TID 09/30/18 09/30/18 History Apixaban [Eliquis 5mg Tablet] 10 mg PO BID 6 Days #12 tab 10/02/18 Rx Prescriptions/Medication Reconciliation: New Apixaban [Eliquis 5mg Tablet] 10 mg PO BID 6 Days #12 tab Continued furosemide 80 mg tablet 80 mg PO BID tab quetiapine 200 mg tablet 200 mg PO DAILY #90 tab ranitidine 150 mg tablet 150 mg PO BID 30 Days tab cholecalciferol (vitamin D3) 1,000 unit capsule 1,000 unit PO DAILY #90 cap albuterol sulfate HFA 90 mcg/actuation aerosol inhaler 2 puff INHALATION Q4- 6H PRN 90 Days #3 units PRN Reason: shortness of breath or wheezing buspirone 15 mg tablet 15 mg PO TID #270 tab pantoprazole 40 mg tablet,delayed release 40 mg PO QAM #90 tab insulin NPH-regular 70-30 U-100 insulin 100 unit/mL subcutaneous pen See Rx Instructions SQ DAILY #15 ml oxycodone-acetaminophen 7.5 mg-325 mg tablet 1 tab PO QID PRN #120 tab PRN Reason: pain Isosorbide Mononitrate [Imdur 30mg ER tablet] 30 mg PO DAILY Fluticasone Propionate [Flonase Allergy Relief NS] 1 spray INTRANASAL DAILY Sertraline HCl [Zoloft] 150 mg PO DAILY Metoprolol Succinate 50 mg PO DAILY Fluticasone/Umeclidin/Vilanter [Trelegy Ellipta] 1 puff INHALATION Q24H Ropinirole HCl 1 mg PO BID Ipratropium/Albuterol Sulfate [Duoneb 3mL neb] 3 ml IH QID Topiramate 50 mg PO TID - Problem Reconciliation Problems Reviewed?: Yes
--- NOTE | 2018-10-02 17:39 | Electrocardiograph Report ---
APPROVED REPORT Exam: Resting ECG HR:63 bpm ECG Measurements Heart Rate 63 AXES WI 162 P 62 QRSd 66 QRS 2 QT 432 T24 QTc 442 <Conclusion> Normal sinus rhythm Normal ECG Electronically signed by : Moe Escoto, 10/02/2018 17:39:00
--- NOTE | 2018-10-03 09:28 | Cardiology Report ---
APPROVED REPORT Right Lower Extremity Venous Study for DVT. Life Scientist: CT Indications Lower Extremity Pain: Right Shortness of breath decrease pulse,redness,pain Vein Imaging CFV (R): compressive, spontaneous, phasic, augmentation FEM (R): compressive, spontaneous, phasic, augmentation POP (R): compressive, spontaneous, phasic, augmentation DFV (R): compressive, spontaneous, phasic, augmentation PTV (R): Partially Compressible GSV (R): compressive, spontaneous, phasic, augmentation SSV (R): compressive, spontaneous, phasic, augmentation Peroneals (R):compressive, spontaneous, phasic, augmentation GAS (R): compressive, spontaneous, phasic, augmentation Conclusion The right Posterior Tibial Vein is dilated with soft echoes and are not fully compressible. DVT is visualized in the _posterior tibial_vein of the right lower extremity. Peter KINCAID notified at 1500. Electronically signed by : Vu Arthur MD 10/03/2018 09:27:43
== END 2018-10-02 15:13 | disposition home or self-care (01) ==
LOC: ER 18:58 → 2ND 18:58
PROVIDERS: ADMIT Internal Medicine Adolescent Medicine; ATTEND Emergency Medicine
CPT/HCPCS: 36415; 71275; 73620; 80048; 80053; 81001; 82550; 82553; 82962; 83605; 84484; 85007; 85025; 85651; 86140; 87040; 87507; 93005; 93971; 94640; 94761; 96365; 96375; 99284; G0378; J3370; Q9967

== ENCOUNTER → 2018-10-12 15:15 | Outpatient (CLI) | payer MEDICARE, MEDICAID, SELFPAY ==
[2018-10-12 15:37] LABS: Basophils # 0.1 K/mm3 (0-0.2); Basophils % 0.9 % (0.1-2.0); Eosinophils # 0.2 K/mm3 (0.0-0.4); Eosinophils % 2.1 % (0.1-12.0); Hematocrit 50.9 % (37.0-47.0); Hemoglobin 16.3 g/dL (12.2-16.2); Lymphocytes # 5.3 K/mm3 (0.7-4.5); Lymphocytes % 47.2 % (10-50); Mean Corpuscular Hemoglobin 28.1 pg (27.0-31.2); Mean Corpuscular Volume 88.1 fl (81-99); Mean Platelet Volume 6.9 fl (7.4-10.4); Monocytes # 0.8 K/mm3 (0.1-1.0); Neutrophils # 4.8 K/mm3 (1.8-7.8); Neutrophils % 42.8 % (37.0-80.0); Platelet Count 392 K/mm3 (142-424); Red Blood Count 5.78 M/mm3 (4.20-5.40); Red Cell Distribution Width 14.3 % (11.5-17.5); White Blood Count 11.2 K/mm3 (4.8-10.8)
[2018-10-12 17:18] LABS: Alanine Aminotransferase 50 U/L (12-78); Albumin Level 3.2 gm/dL (3.4-5.0); Albumin/Globulin Ratio 0.7 (1.1-1.8); Alkaline Phosphatase 122 U/L (46-116); Anion Gap 10.1 mEq/L (5-15); Aspartate Amino Transferase 32 U/L (15-37); Bilirubin,Total 0.3 mg/dL (0.2-1.0); Blood Urea Nitrogen 35 mg/dL (7-18); Calcium 9.4 mg/dL (8.5-10.1); Carbon Dioxide 31 mmol/L (21.0-32.0); Chloride 105 mmol/L (98-107); Creatinine,Serum 1.37 mg/dL (0.55-1.02); Estimated Glomerular Filt Rate 40 ml/min (>60); GFR (African American) 48 ML/MIN (>60); Globulin 4.5 gm/dl (1.3-3.2); Glucose 134 mg/dL (74-106); Potassium 4.1 mmoL/L (3.5-5.1); Sodium 142 mmol/L (136-145); Total Protein,Serum 7.7 gm/dL (6.4-8.2)
== END ==
PROVIDERS: Visit Provider Nurse Practitioner Family
DX: B19.20 Unspecified viral hepatitis C without hepatic coma (principal); Z79.899 Other long term (current) drug therapy
CPT/HCPCS: 36415; 80053; 85025; 87522

== ENCOUNTER → 2018-10-18 14:43 | Outpatient (CLI) | payer MEDICARE, MEDICAID, SELFPAY ==
--- NOTE | 2018-10-18 14:57 | XR_ITS ---
PROCEDURE: XR FOOT RT MIN 3V CLINICAL INDICATION: foot pain COMPARISON: XR FOOT RT 2V from 09/29/2018 FINDINGS: No fracture or dislocation. No lytic or blastic change. There is normal mineralization. The joint spaces are well-preserved. No significant degenerative/arthritic changes. No erosive changes evident. Other findings:Generalized vascular calcification IMPRESSION: No change with no acute finding Dictated by: Vu Arthur MD 10/18/2018 17:14 <Electronically signed by Vu Arthur MD in [facility]> 10/18/2018 17:14
== END ==
PROVIDERS: PCP Emergency Medicine; Visit Provider Emergency Medicine
DX: M79.671 Pain in right foot (principal)
CPT/HCPCS: 73630

== ENCOUNTER → 2018-11-29 15:19 | Outpatient (CLI) | payer MEDICARE, MEDICAID, SELFPAY ==
[2018-11-29 16:00] LABS: Basophils # 0.1 K/mm3 (0-0.2); Eosinophils # 0.3 K/mm3 (0.0-0.4); Eosinophils % 2.4 % (0.1-12.0); Hematocrit 50.1 % (37.0-47.0); Lymphocytes # 4.8 K/mm3 (0.7-4.5); Lymphocytes % 44.7 % (10-50); Mean Corpuscular HGB Conc 29.9 g/dL (31.8-35.4); Mean Corpuscular Volume 90.4 fl (81-99); Mean Platelet Volume 7.4 fl (7.4-10.4); Monocytes # 0.8 K/mm3 (0.1-1.0); Monocytes % 7.5 % (1.7-9.3); Neutrophils # 4.8 K/mm3 (1.8-7.8); Neutrophils % 44.4 % (37.0-80.0); Platelet Count 354 K/mm3 (142-424); Red Blood Count 5.54 M/mm3 (4.20-5.40); Red Cell Distribution Width 14.7 % (11.5-17.5); White Blood Count 10.7 K/mm3 (4.8-10.8)
[2018-11-29 16:53] LABS: INR 0.99 (0.9-1.1); Prothrombin Time 10.3 seconds (9.4-11.8)
[2018-11-29 18:22] LABS: Alanine Aminotransferase 36 U/L (12-78); Albumin Level 3.4 gm/dL (3.4-5.0); Albumin/Globulin Ratio 0.8 (1.1-1.8); Alkaline Phosphatase 149 U/L (46-116); Anion Gap 12.4 mEq/L (5-15); Aspartate Amino Transferase 34 U/L (15-37); Bilirubin,Total 0.4 mg/dL (0.2-1.0); Blood Urea Nitrogen 46 mg/dL (7-18); Calcium 9.3 mg/dL (8.5-10.1); Carbon Dioxide 29 mmol/L (21.0-32.0); Chloride 101 mmol/L (98-107); Creatinine,Serum 1.43 mg/dL (0.55-1.02); Estimated Glomerular Filt Rate 38 ml/min (>60); GFR (African American) 46 ML/MIN (>60); Globulin 4.5 gm/dl (1.3-3.2); Glucose 145 mg/dL (74-106); Potassium 4.4 mmoL/L (3.5-5.1); Sodium 138 mmol/L (136-145); Total Protein,Serum 7.9 gm/dL (6.4-8.2)
== END ==
PROVIDERS: Visit Provider Nurse Practitioner Family
DX: B19.20 Unspecified viral hepatitis C without hepatic coma (principal); Z79.899 Other long term (current) drug therapy; Z51.81 Encounter for therapeutic drug level monitoring
CPT/HCPCS: 36415; 80053; 85025; 85610; 87522

== ENCOUNTER → 2018-12-08 13:49 | Outpatient (CLI) | payer MEDICARE, MEDICAID, SELFPAY ==
[2018-12-08 14:17] LABS: Basophils # 0.1 K/mm3 (0-0.2); Basophils % 0.6 % (0.1-2.0); Eosinophils # 0.3 K/mm3 (0.0-0.4); Eosinophils % 2.6 % (0.1-12.0); Hematocrit 49.5 % (37.0-47.0); Hemoglobin 15.3 g/dL (12.2-16.2); Lymphocytes % 39.1 % (10-50); Mean Corpuscular HGB Conc 30.8 g/dL (31.8-35.4); Mean Corpuscular Volume 90.8 fl (81-99); Mean Platelet Volume 7.7 fl (7.4-10.4); Monocytes # 0.7 K/mm3 (0.1-1.0); Monocytes % 6.6 % (1.7-9.3); Neutrophils # 5.2 K/mm3 (1.8-7.8); Neutrophils % 51.1 % (37.0-80.0); Platelet Count 339 K/mm3 (142-424); Red Blood Count 5.45 M/mm3 (4.20-5.40); Red Cell Distribution Width 13.8 % (11.5-17.5); White Blood Count 10.1 K/mm3 (4.8-10.8)
[2018-12-08 16:33] LABS: Alanine Aminotransferase 36 U/L (12-78); Albumin Level 3.2 gm/dL (3.4-5.0); Albumin/Globulin Ratio 0.7 (1.1-1.8); Alkaline Phosphatase 138 U/L (46-116); Anion Gap 11.5 mEq/L (5-15); Aspartate Amino Transferase 25 U/L (15-37); Bilirubin,Total 0.3 mg/dL (0.2-1.0); Blood Urea Nitrogen 47 mg/dL (7-18); Calcium 9.5 mg/dL (8.5-10.1); Carbon Dioxide 30 mmol/L (21.0-32.0); Chloride 105 mmol/L (98-107); Creatinine,Serum 1.38 mg/dL (0.55-1.02); Estimated Glomerular Filt Rate 39 ml/min (>60); GFR (African American) 48 ML/MIN (>60); Globulin 4.3 gm/dl (1.3-3.2); Glucose 174 mg/dL (74-106); Potassium 3.5 mmoL/L (3.5-5.1); Sodium 143 mmol/L (136-145); Total Protein,Serum 7.5 gm/dL (6.4-8.2)
[2018-12-14 15:09] LABS: Hepatitis C Genotype 1a (.)
== END ==
PROVIDERS: Visit Provider Nurse Practitioner Family
DX: B19.20 Unspecified viral hepatitis C without hepatic coma (principal); Z79.899 Other long term (current) drug therapy
CPT/HCPCS: 36415; 80053; 85025; 87522; 87902

== ENCOUNTER → 2019-01-01 10:34 | Outpatient (CLI) | payer MEDICARE, MEDICAID, SELFPAY | PROVIDERS: Visit Provider Nurse Practitioner Family | DX: B19.20 Unspecified viral hepatitis C without hepatic coma (principal); Z79.899 Other long term (current) drug therapy | CPT/HCPCS: 36415; 87522 ==

== ENCOUNTER 2019-02-15 16:58 | Inpatient (IN) | payer MEDICARE, MEDICAID, SELFPAY ==
[2019-02-15] VITALS (7 sets, daily range): BP systolic 98–128; BP diastolic 41–72; PULSE 74–154; RESP 20–22; TEMP 36.6–36.8; O2SAT 90–98; BMI 29.6; BMI 29.1
--- NOTE | 2019-02-15 16:58 | ECG_ITS ---
APPROVED REPORT Exam: Resting ECG HR:144 bpm ECG Measurements Heart Rate 144 AXES QRSd 74 QRS 2 QT 320 T 90 QTc 495 <Conclusion> Atrial flutter with variable AV block Nonspecific ST abnormality Abnormal ECG Electronically signed by : Moe Escoto, 02/16/2019 08:07:35
--- NOTE | 2019-02-15 17:19 | XR_ITS ---
PROCEDURE: XR CHEST PORTABLE CLINICAL HISTORY: SOA, CHEST CONGESTION, PAINFUL INSPIRATION COMPARISON: CXR2V XR chest 2V from 04/28/2018 [id number] XR ribs RT min 3V w CXR1V from 04/28/2018 CXR2V XR chest 2V from 05/15/2018 CT ANGIO CHEST from 09/30/2018 FINDINGS: Mild cardiomegaly without failure. Loop recorder device is present. There is increased density in the right lung base medially and may be related to a right middle lobe pneumonia. PA and lateral chest or chest CT may confirm. There is diffuse pulmonary fibrotic change no acute bony findings. IMPRESSION: Cardiomegaly with pulmonary fibrotic change with consolidation in the right middle lobe consistent with pneumonia Dictated by: Vu Arthur MD 02/15/2019 19:31 Electronically signed by Vu Arthur MD in [facility] 02/15/2019 19:31
[2019-02-15 18:05] LABS: Lactic Acid 3.2 mmol/L (0.4-2.0)
[2019-02-15 18:06] LABS: Alanine Aminotransferase 11 U/L (12-78); Albumin Level 2.7 gm/dL (3.4-5.0); Albumin/Globulin Ratio 0.5 (1.1-1.8); Alkaline Phosphatase 172 U/L (46-116); Anion Gap 18.2 mEq/L (5-15); Blood Urea Nitrogen 37 mg/dL (7-18); Calcium 9.4 mg/dL (8.5-10.1); Carbon Dioxide 24 mmol/L (21.0-32.0); Chloride 87 mmol/L (98-107); Creatinine Clearance Estimated 49 mL/min (50-200); Creatinine,Serum 1.62 mg/dL (0.55-1.02); Estimated Glomerular Filt Rate 33 ml/min (>60); GFR (African American) 40 ML/MIN (>60); Globulin 5.6 gm/dl (1.3-3.2); Sodium 125 mmol/L (136-145); Total Protein,Serum 8.3 gm/dL (6.4-8.2); Troponin I < 0.02 ng/ml (0.00-0.06)
[2019-02-15 18:07] LABS: Glucose 620 mg/dL (74-106); Potassium 4.2 mmoL/L (3.5-5.1)
[2019-02-15 18:08] LABS: Aspartate Amino Transferase 6 U/L (15-37)
--- NOTE | 2019-02-15 18:08 | PC.NURSE ---
LAB REPORTS GLUCOSE OF 620
[2019-02-15 18:14] LABS: Occult Blood,Stool Negative (Negative)
--- NOTE | 2019-02-15 18:20 | PC.NURSE ---
spoke with kamaljit in lab, she came down a redrew pts lab stated pts purple top had a clot in it, I asked why they had originally resulted a CBC on pt, states she did not have an answer for that but she was told to recollect blood on pt and they are rerunning it.
[2019-02-15 18:30] LABS: Basophils # 0.1 K/mm3 (0-0.2); Basophils % 0.3 % (0.1-2.0); Eosinophils % 0.1 % (0.1-12.0); Hematocrit 46.5 % (37.0-47.0); Hemoglobin 13.9 g/dL (12.2-16.2); Lymphocytes # 2.2 K/mm3 (0.7-4.5); Lymphocytes % 10.1 % (10-50); Mean Corpuscular HGB Conc 29.8 g/dL (31.8-35.4); Mean Corpuscular Hemoglobin 26.7 pg (27.0-31.2); Mean Corpuscular Volume 89.4 fl (81-99); Monocytes # 1.1 K/mm3 (0.1-1.0); Monocytes % 5.3 % (1.7-9.3); Neutrophils % 84.3 % (37.0-80.0); Platelet Count 226 K/mm3 (142-424); White Blood Count 21.4 K/mm3 (4.8-10.8)
[2019-02-15 18:33] LABS: MANUAL DIFFERENTIAL MANUAL DIFFERENTIAL (MANUAL DIFF)
--- NOTE | 2019-02-15 18:38 | HMH.EDGENADL ---
ED Disposition Clinical Impression: Community acquired pneumonia, Sepsis, COPD exacerbation, Type 2 diabetes mellitus with hyperglycemia Disposition: Admitted As Inpatient Condition on Discharge: Critical Time of Disposition: 21:21 - Critical Care Critical Care Time: Yes Attestation: On 02/15/19, the high probability of a clinically significant, sudden or life threatening deterioration of the following system(s) required my full and direct attention, intervention and personal management. The time I documented below is in addition to time spent performing reported procedures but includes the following listed in this critical care notation. Total Critical Care Time: 30 Vital system(s) involved:: Circulatory Failure My critical care processes included: Assessment & monitoring of V/S, Medication Orders and management Medical Decision Making - Medical Records Medical records reviewed: Yes: I reviewed the patient's medical records. - Jordin Inquiry Pt receiving controlled substance: No Vital Signs: 02/15/19 17:07 02/15/19 17:47 02/15/19 19:43 Temperature 98.2 F Temperature Source Oral Pulse Rate [Right Radial] 154 H 129 H 122 H Respiratory Rate 22 20 Blood Pressure [Right Arm] 112/41 L 102/72 L 98/58 L Blood Pressure Mean [Right Arm] 64 82 71 Blood Pressure Source [Right Arm] Automatic Cuff Automatic Cuff Blood Pressure Position [Right Arm] Supine 02 Sat by Pulse Oximetry 90 L 93 L 94 L Oxygen Delivery Method Nasal Cannula Oxygen Flow Rate (LPM) 3 - Lab Data Lab results reviewed: Yes: I reviewed the patient's lab results. Lab Results 02/15/19 17:35: WBC Cancelled, Corrected WBC Cancelled, RBC Cancelled, Hgb Cancelled, Hct Cancelled, MCV Cancelled, MCH Cancelled, MCHC Cancelled, RDW Cancelled, Plt Count Cancelled, MPV Cancelled, Neut % (Auto) Cancelled, Lymph % (Auto) Cancelled, Hood % (Auto) Cancelled, Eos % (Auto) Cancelled, Baso % (Auto) Cancelled, Neut # (Auto) Cancelled, Lymph # (Auto) Cancelled, Hood # (Auto) Cancelled, Eos # (Auto) Cancelled, Baso # (Auto) Cancelled, Total Counted Cancelled, Neutrophils % (Manual) Cancelled, Band Neutrophils % Cancelled, Lymphocytes % (Manual) Cancelled, Atypical Lymphs % Cancelled, Monocytes % (Manual) Cancelled, Eosinophils % (Manual) Cancelled, Basophils % (Manual) Cancelled, Metamyelocytes % Cancelled, Myelocytes % Cancelled, Promyelocytes % Cancelled, Blast Cells % Cancelled, Nucleated RBCs Cancelled, Differential Comment Cancelled, Hypersegmented Neuts Cancelled, Toxic Granulation Cancelled, Toxic Vacuolation Cancelled, Dohle Bodies Cancelled, Valerie Rods Cancelled, Platelet Estimate Cancelled, Giant Platelets Cancelled, RBC Morphology Cancelled, Polychromasia Cancelled, Hypochromasia Cancelled, Poikilocytosis Cancelled, Basophilic Stippling Cancelled, Anisocytosis Cancelled, Microcytosis Cancelled, Macrocytosis Cancelled, Spherocytes Cancelled, Pappenheimer Bodies Cancelled, Sickle Cells Cancelled, Target Cells Cancelled, Tear Drop Cells Cancelled, Ovalocytes Cancelled, Stomatocytes Cancelled, Helmet Cells Cancelled, Slaughter-Fabens Bodies Cancelled, Hanover Rings Cancelled, Baldemar Cells Cancelled, Acanthocytes (Spur) Cancelled, Rouleaux Cancelled, Schistocytes Cancelled 02/15/19 17:35: Sodium 125 L, Potassium 4.2, Chloride 87 L, Carbon Dioxide 24, Anion Gap 18.2 H, BUN 37 H, Creatinine 1.62 H, Estimated Creat Clear 49, Estimated GFR 33 L, Est GFR ( Amer) 40 L, Glucose 620 H*, Calcium 9.4, Total Bilirubin 1.0, AST 6 L, ALT 11 L, Alkaline Phosphatase 172 H, Troponin I < 0.02, Total Protein 8.3 H, Albumin 2.7 L, Globulin 5.6 H, Albumin/Globulin Ratio 0.5 L 02/15/19 17:35: Lactate 3.2 H 02/15/19 18:04: Stool Occult Blood Negative 02/15/19 18:04: Urine Color Yellow, Urine Appearance Clear, Urine pH 5.5, Ur Specific [place] 1.015, Urine Protein 1+, Urine Glucose (UA) 3+, Urine Ketones Trace, Urine Blood 1+, Urine Nitrate Negative, Urine Bilirubin Negative, Urine Urobilinogen 0.2, Ur Danielle
[2019-02-15 18:49] LABS: Lymphocytes % 10 % (10-50); Monocytes % 3 % (2-9); Neutrophils % 87 % (42-76); Total Cells Counted 100
[2019-02-15 18:50] LABS: Hypochromasia 1+; Platelet Estimate Normal
[2019-02-15 19:25] LABS: Microscopic, Urine URINE MICROSCOPIC (MICROSCOPIC)
[2019-02-15 19:27] LABS: Appearance,Urine CLEAR (Clear); Bilirubin,Urine Negative (Negative); Blood, Urine 1+ (Negative); Color,Urine YELLOW (Yellow); Glucose,Urine (UA) 3+ (Negative); Ketones,Urine TRACE (Negative); Leukocyte Esterase,Urine Negative (Negative); Nitrate,Urine Negative (Negative); PH,Urine 5.5 (5.0-8.5); Protein,Urine 1+ (Negative); Specific Gravity, Urine 1.015 (1.005-1.030); Urobilinogen,Urine 0.2 EU/dl (0.2)
[2019-02-15 19:37] LABS: Squamous Epithelial Cell,Urine Occasional #/hpf (0-5)
--- NOTE | 2019-02-15 21:01 | PC.NURSE ---
spoke with jac to admit pt
[2019-02-15 21:13] LABS: ABG Base Excess -1.7 mmol/L (-2.4-2.3); ABG HCO3 23.7 mmhg (22.0-26.0); ABG Oxygen Saturation 94 % (90-100); ABG PCO2 43.3 mmhg (35.0-45.0); ABG PH 7.36 mmol/L (7.35-7.45); ABG PO2 73.1 mmhg (80-100); ABG TCO2 25.1 mmhg (23-27)
[2019-02-15 21:15] LABS: Oxygen 3L %
[2019-02-15 21:32] LABS: Troponin I < 0.02 ng/ml (0.00-0.06)
[2019-02-15 21:47] LABS: Reflex Lactic Add Lactic Reflex
[2019-02-15 22:59] LABS: POC Glucose,Bedside 451 (70-110)
[2019-02-15 23:34] LABS: Lactic Acid Follow Up (RFLX 1) 2.3 (0.4-2.0)
[2019-02-16] VITALS (13 sets, daily range): BP systolic 92–144; BP diastolic 49–72; PULSE 52–130; RESP 16–20; TEMP 36.7–37.4; O2SAT 92–98; BMI 29.1
[2019-02-16 00:10] LABS: Reflex Lactic (2 hrs) Add Lactic Reflex
[2019-02-16 03:46] LABS: Adenovirus F 40/41, stool Not Detected (NotDetected); Astrovirus Not Detected (NotDetected); Campylobacter Not Detected (NotDetected); Cryptosporidium Not Detected (NotDetected); Cyclospora Cayetanesis Not Detected (NotDetected); Entamoeba histolytica Not Detected (NotDetected); Enteroaggregative E coli Not Detected (NotDetected); Enteropathogenic E coli Not Detected (NotDetected); Enterotoxigenic E coli Not Detected (NotDetected); Giardia lamblia Not Detected (NotDetected); Norovirus Not Detected (NotDetected); Plesimonas Shigalloides, PCR Not Detected (NotDetected); Rotavirus A Not Detected (NotDetected); Salmonella, PCR Not Detected (NotDetected); Sapovirus Not Detected (NotDetected); Shiga-like toxin E coli Not Detected (NotDetected); Shigella Enterovasive E coli Not Detected (NotDetected); Vibrio Cholerae Not Detected (NotDetected); Vibrio, PCR Not Detected (NotDetected); Yersinia Entercolitica, PCR Not Detected (NotDetected)
[2019-02-16 06:15] LABS: POC Glucose,Bedside 173 (70-110)
--- NOTE | 2019-02-16 06:33 | PC.NURSE ---
Addendum entered by Moe Kelly 02/16/19 06:34: 02/15/19 at 2201 Original Note: Pt arrived to floor 02/15/18 at 2206
[2019-02-16 06:37] LABS: Clostridium Difficile A/B, PCR Detected (NotDetected)
[2019-02-16 06:40] LABS: Basophils # 0.1 K/mm3 (0-0.2); Basophils % 0.4 % (0.1-2.0); Eosinophils # 0.2 K/mm3 (0.0-0.4); Eosinophils % 0.7 % (0.1-12.0); Hematocrit 43.2 % (37.0-47.0); Hemoglobin 14.3 g/dL (12.2-16.2); Lymphocytes # 3.5 K/mm3 (0.7-4.5); Lymphocytes % 16.8 % (10-50); Mean Corpuscular HGB Conc 33.1 g/dL (31.8-35.4); Mean Corpuscular Hemoglobin 27.8 pg (27.0-31.2); Mean Corpuscular Volume 83.9 fl (81-99); Mean Platelet Volume 8.9 fl (7.4-10.4); Monocytes # 1.4 K/mm3 (0.1-1.0); Monocytes % 6.8 % (1.7-9.3); Neutrophils # 15.6 K/mm3 (1.8-7.8); Neutrophils % 75.3 % (37.0-80.0); Platelet Count 246 K/mm3 (142-424); Red Blood Count 5.15 M/mm3 (4.20-5.40); Red Cell Distribution Width 12.9 % (11.5-17.5); White Blood Count 20.7 K/mm3 (4.8-10.8)
[2019-02-16 06:50] LABS: MANUAL DIFFERENTIAL MANUAL DIFFERENTIAL (MANUAL DIFF)
[2019-02-16 06:57] LABS: Alanine Aminotransferase 7 U/L (12-78); Albumin/Globulin Ratio 0.5 (1.1-1.8); Alkaline Phosphatase 119 U/L (46-116); Anion Gap 11.4 mEq/L (5-15); Aspartate Amino Transferase 6 U/L (15-37); Bilirubin,Total 0.6 mg/dL (0.2-1.0); Blood Urea Nitrogen 32 mg/dL (7-18); Carbon Dioxide 27 mmol/L (21.0-32.0); Chloride 101 mmol/L (98-107); Chol/HDL Ratio 4.5 (1-3.5); Cholesterol 108 mg/dL (140-200); Creatinine Clearance Estimated 73 mL/min (50-200); Creatinine,Serum 1.07 mg/dL (0.55-1.02); Estimated Glomerular Filt Rate 53 ml/min (>60); GFR (African American) 64 ML/MIN (>60); Globulin 4.4 gm/dl (1.3-3.2); Glucose 166 mg/dL (74-106); HDL Cholesterol 24 mg/dL (29-89); LDL Cholesterol 51 mg/dL (0-130); Magnesium 1.8 mg/dL (1.4-2.2); Potassium 3.4 mmoL/L (3.5-5.1); Sodium 136 mmol/L (136-145); Total Protein,Serum 6.4 gm/dL (6.4-8.2); Triglycerides 164 mg/dL (30-200); VLDL Cholesterol 33 mg/dL (0-40)
[2019-02-16 06:58] LABS: Phosphorous 1.3 mg/dL (2.4-4.9)
[2019-02-16 07:15] LABS: Calcium 8.3 mg/dL (8.5-10.1)
--- NOTE | 2019-02-16 07:40 | P.CONPHA_ITS ---
[facility] Pharmacy VTE Monitoring - Patient Demographics Admission date: 02/16/19 Report Date: 02/16/19 Time: 07:40 Allergies/Adverse Reactions: Patient Allergies methocarbamol Allergy (Severe, Verified 12/18/18 15:52) Altered mental status terbutaline [TERBUTALINE] Allergy (Severe, Verified 02/16/19 05:05) SWELLS THROAT aspirin [ASPIRIN] Allergy (Intermediate, Verified 02/16/19 05:05) I-RASH codeine [CODEINE] Allergy (Intermediate, Verified 02/16/19 05:05) Swelling of the Eye diphenhydramine [From Benadryl] Allergy (Intermediate, Verified 12/18/18 15:52) Hives Sulfa (Sulfonamide Antibiotics) [SULFA (SULFONAMIDE ANTIBIOTICS)] Allergy (In termediate, Verified 02/16/19 05:05) Hives sulfamethoxazole [From Bactrim] Allergy (Intermediate, Verified 12/18/18 15:52) Hives trimethoprim [From Bactrim] Allergy (Intermediate, Verified 12/18/18 15:52) Hives naproxen [NAPROXEN] Allergy (Mild, Verified 02/16/19 05:05) itching tramadol [TRAMADOL] Allergy (Mild, Verified 02/16/19 05:05) Vomiting citalopram [CITALOPRAM] Allergy (Unknown, Verified 12/18/18 15:52) SKIN PEEL erythromycin base [ERYTHROMYCIN BASE] Allergy (Unknown, Verified 12/18/18 15:52) I-RASH Penicillins [PENICILLINS] Allergy (Unknown, Verified 12/18/18 15:52) I-RASH bupropion [BUPROPION] Adverse Reaction (Severe, Verified 02/16/19 05:05) Hallucinating duloxetine [DULOXETINE] Adverse Reaction (Severe, Verified 02/16/19 05:05) Hallucinating pregabalin [PREGABALIN] Adverse Reaction (Severe, Verified 02/16/19 05:05) Hallucinating celecoxib [From CELEBREX] Adverse Reaction (Mild, Verified 02/16/19 05:05) Vomiting Height: 1.65 m Weight: 79.407 kg Patient Problems: Current Active Problems Community acquired pneumonia (Acute) Sepsis (Acute) COPD exacerbation (Acute) Type 2 diabetes mellitus with hyperglycemia (Acute) - VTE Risk Labs: VTE Related Lab Results Hgb 14.3 g/dL (12.2-16.2) 02/16/19 06:12 Hct 43.2 % (37.0-47.0) 02/16/19 06:12 Plt Count 246 K/mm3 (142-424) 02/16/19 06:12 BUN 32 mg/dL (7-18) H 02/16/19 06:12 Creatinine 1.07 mg/dL (0.55-1.02) H D 02/16/19 06:12 Estimated Creat Clear 73 mL/min (50-200) 02/16/19 06:12 Was VTE Risk Assessment Performed: Yes VTE Score: 11 VTE Risk Level: Moderate Risk Clinical Trial Participant: No - Prophylaxis VTE Prophylaxis Ordered?: Yes Types of VTE Prophylaxis: TEDS Knee High, Pharmacological Pharmacologic Type: Other (ELIQUIS)
--- NOTE | 2019-02-16 07:45 | PC.NURSE ---
Have paged Grayson Urban to reports CDiff +, awaiting call back. Report given to Mary KINCAID
--- NOTE | 2019-02-16 08:02 | HMH.PHAINT ---
HOME MEDICATION RECONCILIATION COMPLETED USING LIST FROM CLINIC PHARMACY.
--- NOTE | 2019-02-16 08:54 | HMH.HP ---
*Admission Date: 02/16/19 *Chief complaint: SOA, fever *History of present illness: 58-year-old female with history of A. fib, severe COPD on continuous oxygen at home, multiple other comorbidities as listed in the following section who presented with several days of nausea, vomiting, diarrhea. Reports additionally having worsening respiratory symptoms and fatigue which ultimately led to her coming to the emergency room. Reports she was feeling dizzy and had significant abdominal pain. Difficult time staying hydrated. Upon presentation to the ER initial work-up concerning for right middle lobe pneumonia, hypoxemia, sepsis criteria met, and RAGHAV. Additionally patient had significant hyperglycemia in the setting of her diabetes, and market leukocytosis. Given her diarrhea and abdominal pain a stool study was performed showing C. difficile on admission. She was admitted for acute management of her acute on chronic respiratory failure, pneumonia in the setting of COPD, sepsis, C. difficile colitis. Initiated on broad-spectrum antibiotics, cultures obtained, fluids initiated. On exam this morning she reports still feeling very ill however somewhat improved from presentation. Still complains of shortness of breath and harsh productive cough. Having multiple loose stools overnight. Denies any savanna emesis but does complain of nausea. Denies any blood in her stool. Feeling somewhat better after IV fluids. Has a [place] in and would like to have it taken out. Remained hemodynamically stable overnight without fever [facility] History I have reviewed the patient's past medical history: Yes Medical History: Reports:: Anxiety, Atrial Fibrillation, Cancer, Congestive Heart Failure, Chronic Obstructive Pulmonary Disease (COPD), Depression, Diabetes Mellitus Type 2, Gastroesophageal Reflux Disease(GERD), Hyperlipidemia, Hypertension, Migraine, Peripheral Artery Disease, Renal Insufficiency Denies:: Diabetes Mellitus Type 1, MRSA *Have you ever received a pneumonia vaccine?: No (pt isn't sure when last had) *Have you received a flu vaccine this season?: No Other Medical History: Reports: Cataracts, Glaucoma, Liver Disease, Other Laterality Cases: Right: Carpal Tunnel Release, Bilateral: Tonsillectomy Other Surgeries: Yes: Appendectomy, Cardiac Catheterization, Cholecystectomy, Colonoscopy, Diagnostic Lap, Hysterectomy-Total, Tubal Ligation, Other Amputation: No Fractures: Yes (BACK) - *Social History Educational Level: Attended High School Smoking Status: Former smoker Tobacco Type: cigarettes # Packs/Day (cigarettes): 2 #Yrs smoked (if former smoker): 30 Smoking End Date: 2017 Alcohol Intake: former Alcohol Intake Frequency:: other Substance Use Type: denies use *Occupational Status:: unemployed, disabled Housing: apartment Household Members: none *Travel in the last 8 weeks: None - Psychiatric History Pschychiatric History:: Reports:: Anxiety, Depression Family Hx:: Asthma, Cancer, Coronary Artery Disease, Diabetes, Heart Attack, Hyperlipidemia, Hypertension, Kidney Disease, Stroke, Thyroid Disorder, Tuberculosis, Alcoholism, Mental illness Review of Systems - Review of Systems Review of systems:: pertinent systems reviewed and negative unless documented below Meds Home Medications Medication Instructions Recorded Confirmed Type ranitidine HCl 150 mg tablet 150 mg PO BID 30 Days tab 09/29/17 02/16/19 History Fluticasone Propionate [Flonase 1 spray INTRANASAL DAILY 05/17/18 02/15/19 History Allergy Relief NS] Isosorbide Mononitrate [Imdur 30mg 30 mg PO DAILY 05/17/18 02/16/19 History ER tablet] Ropinirole HCl 1 mg PO BID 05/17/18 02/16/19 History albuterol sulfate 90 mcg/actuation 2 puff INHALATION Q4-6H PRN 90 06/14/18 02/16/19 Rx aerosol inhaler Days #3 units Ipratropium/Albuterol Sulfate 3 ml IH QID 09/30/18 02/16/19 History [Duoneb 3mL neb] cholecalciferol (vitamin D3) 25 1,000 unit PO DAILY #90 cap 10/17/18 02/16/19 Rx mc
[2019-02-16 09:04] LABS: Lymphocytes % 16 % (10-50); Monocytes % 8 % (2-9); Neutrophils % 76 % (42-76); Platelet Estimate Normal; RBC Morphology Normal; Total Cells Counted 100
--- NOTE | 2019-02-16 10:33 | PC.NURSE ---
Awaiting on pharm to bring PO nancy.
[2019-02-16 11:35] LABS: POC Glucose,Bedside 229 (70-110)
--- NOTE | 2019-02-16 11:45 | PC.NURSE ---
Pt is alert and oriented and able to make needs known. RR even and unlabored at this time. 02 @ 3 L/NC at this time. Pt states this is what she wears at home. NAD. Teds applied to BLE and non skid socks. C Diff pos, and contect enteric precautions in place. Lung sounds scattered wheezes/ rhonchi- expiratory. Last fingerstick 229, SSI given. CB in reach. VSS at this time. Will cont to mx pt this shift. Dr. Chang also ordered clear liquid diet at this time and to d/c fong cath. It has been removed and pt tolerated well.
--- NOTE | 2019-02-16 16:44 | PC.NURSE ---
RN aware of elevated heart rate.
[2019-02-16 18:08] LABS: POC Glucose,Bedside 230 (70-110)
--- NOTE | 2019-02-16 18:52 | PC.NURSE ---
Pt's room air sat at rest = 90%.
--- NOTE | 2019-02-16 18:57 | PC.NURSE ---
Pt did have what looked like some pauses on tele. Did do a EKG. Some read a fib, and one showed mobitz 2. Did make MD Dr. Chang aware and ER MD read as well. He suggested cardiology. Pt did c/o of being tired and just feeling bad overall, HR was in 130's. Made MD Dr. Chang aware and he ordered metoprolol 5 mg IV X 1. BP was lower as well and Dr. chang ordered LR bolus as well. V/S's 99/59,109/50,100/57, Previous readings were prior to push 103/61- HR 136, 98/65- HR 130, 102/59-124,99/57- HR 124, 96/58- HR128,108/60 HR 139, 125/44, HR 76 during push and post med given 152/55 and HR 110. Pt's HR has been lower, still a fib at this time. CB in reach. PRN pian med given per apr. Has only had x 1 loose stool this shift.
--- NOTE | 2019-02-16 19:11 | PC.NURSE ---
report given to isabel
--- NOTE | 2019-02-16 19:41 | PC.NURSE ---
Did also give pt incentive spirometer for use as well.
[2019-02-16 21:41] LABS: POC Glucose,Bedside 178 (70-110)
[2019-02-17] VITALS (13 sets, daily range): BP systolic 91–119; BP diastolic 54–70; PULSE 68–90; RESP 18–20; TEMP 36.4–36.8; O2SAT 90–96; BMI 31.3
--- NOTE | 2019-02-17 04:08 | PC.NURSE ---
Tele read as NSR first two strips. Pt restless up and down, first sitting up in bed, then on the side of the bed. Began resting following Oxycodone administration approximately 0330. Lung kimball remain junky with no productive intermittent cough and 023LNC is on and in place. Remains alert, oriented and talkative, presently resting in supine position with eyes closed. IV infusing well with no s/s of erythema or infiltration, independent to bsc. Remains in contact for cdiff, no bm's noted thus far tonight, monitoring continues.
[2019-02-17 05:50] LABS: POC Glucose,Bedside 160 (70-110)
--- NOTE | 2019-02-17 06:07 | PC.NURSE ---
Pt was weighed 3 times this morning. Pt did not have any extra blankets, pillows, or personal items in the bed with her. I had the patient stand up and I zeroed the bed out. The bed showed a weight gain of 13.2 pounds and is not believed to be accurate. Primary care nurse was made aware of situation with the patient's weight and bed.
[2019-02-17 07:14] LABS: Basophils # 0.1 K/mm3 (0-0.2); Basophils % 0.3 % (0.1-2.0); Eosinophils # 0.2 K/mm3 (0.0-0.4); Eosinophils % 1.3 % (0.1-12.0); Hematocrit 37.6 % (37.0-47.0); Hemoglobin 12.4 g/dL (12.2-16.2); Lymphocytes # 2.8 K/mm3 (0.7-4.5); Lymphocytes % 20.7 % (10-50); Mean Corpuscular Hemoglobin 28.2 pg (27.0-31.2); Mean Corpuscular Volume 85.5 fl (81-99); Mean Platelet Volume 8.5 fl (7.4-10.4); Monocytes % 7.4 % (1.7-9.3); Neutrophils # 9.6 K/mm3 (1.8-7.8); Neutrophils % 70.4 % (37.0-80.0); Platelet Count 221 K/mm3 (142-424); Red Cell Distribution Width 13.2 % (11.5-17.5); White Blood Count 13.7 K/mm3 (4.8-10.8)
[2019-02-17 07:20] LABS: Albumin Level 1.7 gm/dL (3.4-5.0); Anion Gap 10.3 mEq/L (5-15); Blood Urea Nitrogen 19 mg/dL (7-18); Calcium 7.9 mg/dL (8.5-10.1); Carbon Dioxide 26 mmol/L (21.0-32.0); Chloride 106 mmol/L (98-107); Creatinine Clearance Estimated 93 mL/min (50-200); Estimated Glomerular Filt Rate 65 ml/min (>60); GFR (African American) 78 ML/MIN (>60); Glucose 131 mg/dL (74-106); Potassium 3.3 mmoL/L (3.5-5.1); Sodium 139 mmol/L (136-145)
[2019-02-17 07:35] LABS: Alanine Aminotransferase 11 U/L (12-78); Albumin/Globulin Ratio 0.4 (1.1-1.8); Alkaline Phosphatase 98 U/L (46-116); Aspartate Amino Transferase 14 U/L (15-37); Bilirubin,Total 0.5 mg/dL (0.2-1.0); Globulin 3.8 gm/dl (1.3-3.2); Total Protein,Serum 5.5 gm/dL (6.4-8.2)
[2019-02-17 07:36] LABS: Magnesium 1.5 mg/dL (1.4-2.2)
--- NOTE | 2019-02-17 11:21 | PC.NURSE ---
checked FSBS @ 1115 and it was 60. Did give pt gatorade and she is currently drinking that without difficulty. Will cont to mx.
[2019-02-17 12:22] LABS: POC Glucose,Bedside 63 (70-110)
[2019-02-17 12:22] LABS: POC Glucose,Bedside 82 (70-110)
[2019-02-17 12:22] LABS: POC Glucose,Bedside 60 (70-110)
[2019-02-17 12:22] LABS: POC Glucose,Bedside 56 (70-110)
--- NOTE | 2019-02-17 12:33 | PC.NURSE ---
Checked PT's fingerstick @ lunch and it was noted to be 60, Gave gatorade 240 cc can and 240 cc oj, rechecked and still 56, rechecked in 15 mins and it was 63, gave 240 more oj and kassandra pudding cup and it is now 82. Pt was slightly sleepy when first assessed but alert and oriented and ablke to follow commands. Will cont to mx this shift. MD Urban in to see pt and was also made aware of glucose. He did verbally state diet could also be advanced. Will change to ADA diet and cont to mx pt.
--- NOTE | 2019-02-17 14:35 | HMH.ACPN2 ---
Internal Medicine - PN: Subj *Date: 02/17/19 *Time: 09:35 Interval history: pt sitting up in bed states she is still having loose stools and soa with walking to bathroom. Exam Vital signs and Labs for Last 24 Hours: Temp Pulse Resp BP Pulse Ox 97.7 F 78 18 99/67 L 95 02/17/19 11:24 02/17/19 11:24 02/17/19 11:24 02/17/19 11:24 02/17/19 11:24 Laboratory Results - last 24 hr 02/16/19 17:01: POC Glucose 230 H 02/16/19 21:09: POC Glucose 178 H 02/17/19 05:32: POC Glucose 160 H 02/17/19 06:56: WBC 13.7 H D, RBC 4.40, Hgb 12.4, Hct 37.6, MCV 85.5, MCH 28.2, MCHC 33.0, RDW 13.2, Plt Count 221, MPV 8.5, Neut % (Auto) 70.4, Lymph % (Auto) 20.7, [place] % (Auto) 7.4, Eos % (Auto) 1.3, Baso % (Auto) 0.3, Neut # (Auto) 9.6 H, Lymph # (Auto) 2.8, [place] # (Auto) 1.0, Eos # (Auto) 0.2, Baso # (Auto) 0.1 02/17/19 06:56: Sodium 139, Potassium 3.3 L, Chloride 106, Carbon Dioxide 26, Anion Gap 10.3, BUN 19 H D, Creatinine 0.90, Estimated Creat Clear 93, Estimated GFR 65, Est GFR ( Amer) 78 D, Glucose 131 H, Calcium 7.9 L, Magnesium 1.5 D, Total Bilirubin 0.5, AST 14 L D, ALT 11 L D, Alkaline Phosphatase 98, Total Protein 5.5 L, Albumin 1.7 L D, Globulin 3.8 H, Albumin/Globulin Ratio 0.4 L 02/17/19 11:17: POC Glucose 60 L 02/17/19 11:33: POC Glucose 63 L 02/17/19 11:47: POC Glucose 56 L 02/17/19 12:13: POC Glucose 82 I & O for Last 24 hours: Intake & Output 02/15/19 02/16/19 02/17/19 02/18/19 11:59 11:59 11:59 11:59 Intake Total 560 / 560 2743 / 2743 360 / 360 Output Total 1300 / 1300 Balance 560 / 560 1443 / 1443 360 / 360 Weight 175 lb 1 oz 188 lb 2 oz - Constitutional no acute distress, chronically ill appearing - *Routine HEENT Exam Head: Present: normocephalic Eye: Present: EOMI, PERRL ENT: Present: mucous membranes moist - *Routine Neck Exam Present: supple. Absent: lymphadenopathy - *Routine Respiratory Exam Present: wheezes, diminished air movement - *Routine Cardiovascular Exam Present: RRR - *Routine Abdominal Exam Present: soft, normoactive bowel sounds. Absent: tenderness - *Routine Extremities Exam Present: full ROM. Absent: cyanosis, clubbing, edema - *Routine Skin Exam Present: warm. Absent: rash - *Routine Neurological Exam Present: alert, oriented X3 - Routine Psychiatric Exam Present: normal affect Assessment and Plan (1) RAGHAV (acute kidney injury) Current visit: Yes Status: Acute Category: Medical Code(s): N17.9 - Acute kidney failure, unspecified (2) C. difficile colitis Current visit: Yes Status: Acute Category: Medical Code(s): A04.72 - Enterocolitis due to Clostridium difficile, not specified as recurrent (3) COPD exacerbation Current visit: Yes Status: Acute Category: Medical Code(s): J44.1 - Chronic obstructive pulmonary disease with (acute) exacerbation (4) Community acquired pneumonia Current visit: Yes Status: Acute Category: Medical Code(s): J18.9 - Pneumonia, unspecified organism (5) Sepsis Current visit: Yes Status: Acute Category: Medical Code(s): A41.9 - Sepsis, unspecified organism (6) Type 2 diabetes mellitus with hyperglycemia Current visit: Yes Status: Chronic Category: Medical Code(s): E11.65 - Type 2 diabetes mellitus with hyperglycemia (7) Abdominal pain Current visit: No Status: Acute Qualifiers: Abdominal location: right lower quadrant Qualified Code(s): R10.31 - Right lower quadrant pain Category: Medical Code(s): R10.9 - Unspecified abdominal pain (8) Hep B w/o coma Current visit: No Status: Chronic Category: Medical Code(s): B19.10 - Unspecified viral hepatitis B without hepatic coma (9) Hep C w/o coma, chronic Current visit: No Status: Chronic Category: Medical Code(s): B18.2 - Chronic viral hepatitis C (10) Atrial fibrillation Current visit: No Status: Chronic Qualifiers: Atrial fibrillation type: paroxysmal Qualified Co
[2019-02-17 15:30] LABS: POC Glucose,Bedside 486 (70-110)
[2019-02-17 16:45] LABS: POC Glucose,Bedside 97 (70-110)
--- NOTE | 2019-02-17 18:52 | PC.NURSE ---
Pt is alert and oriented and able to make needs known. 02 @ 3 L NC. Lungs have scattered rhonchi and wheezes. Cont with scheduled nebs. Afib on tele. BS X 4 quads. CB in reach. VSS at this time. Last fingerstick 97. No s/s hypoglycemia.
[2019-02-17 21:08] LABS: POC Glucose,Bedside 221 (70-110)
[2019-02-18] VITALS (17 sets, daily range): BP systolic 103–123; BP diastolic 59–82; PULSE 77–127; RESP 17–24; TEMP 36.4–36.8; O2SAT 91–98; BMI 32.5
[2019-02-18 02:19] LABS: Glucose,Random 38 mg/dL (70-110)
--- NOTE | 2019-02-18 04:16 | PC.NURSE ---
A&O X4. PERRLA. BILATERAL STEWARD/STEWARDESS SECOND AND STRENGTHS EQUAL AND STRONG. S1, S2 HEART SOUNDS NOTED UPON AUSCULTATION. +1 BILATERAL PEDAL PULSES NOTED, +2 BILATERAL RADIAL PULSES NOTED UPON PALPITATION. NSR NOTED ON GROUNDS/MAINTENANCE SPECIALIST THIS SHIFT THUS FAR. HX OF AFIB NOTED. CAP REFILL < 3 SECONDS. NO EDEMA NOTED THIS SHIFT THUS FAR. EXPIRATORY WHEEZING NOTED IN LEFT LUNG THROUGHOUT, EXPIRATORY RHONCHI NOTED IN RIGHT LUNG THROUGHOUT UPON AUSCULTATION. PT NOTED WITH A PERSISTENT INTERMITTENT PRODUCTIVE COUGH. PT WAS ABLE TO EXPECTORATE SPUTUM FOR CULTURE, RESULTS PENDING AT THIS TIME. PT TOLERATED 3 LNC WELL THIS SHIFT. INCENTIVE SPIROMETER AT BEDSIDE, ENCOURAGED PT TO USE Q1H WHILE AWAKE. PT DEMONSTRATED APPROPRIATE USE AT BEGINNING OF SHIFT. ACTIVE BOWEL SOUNDS NOTED IN ALL 4 QUADS UPON AUSCULTATION. ABDOMEN NOTED SOFT, ROUND, AND NON-TENDER UPON PALPATION. PT WEARING BRIEF DURING THIS SHIFT, BUT REMAINS CONTINENT OF BOWEL AND BLADDER. BSC X1 WITH ASSIST. URINE NOTED CLEAR, BRIGHT YELLOW WITH NORMAL ODOR. PT HAD A HYPOGLYCEMIC EPISODE AT 0200 THIS AM. SEE PROVIDER NOTIFICATION FOR DETAILS. MADE AWARE. D/C SSI FOR AM. UPON REASSESSMENT, GLU STABLE. PT NOW A&O X4 AND SITTING UP IN BED EATING A PM SNACK. VSS. REMAINS SAFE. CALL LIGHT WITHIN REACH. WILL CONTINUE TO MONITOR.
[2019-02-18 06:09] LABS: POC Glucose,Bedside 158 (70-110)
[2019-02-18 06:22] LABS: Basophils # 0.1 K/mm3 (0-0.2); Basophils % 0.5 % (0.1-2.0); Eosinophils % 0.3 % (0.1-12.0); Hematocrit 39.1 % (37.0-47.0); Hemoglobin 12.4 g/dL (12.2-16.2); Lymphocytes # 1.7 K/mm3 (0.7-4.5); Lymphocytes % 11.3 % (10-50); Mean Corpuscular HGB Conc 31.6 g/dL (31.8-35.4); Mean Corpuscular Hemoglobin 28.2 pg (27.0-31.2); Mean Corpuscular Volume 89.3 fl (81-99); Mean Platelet Volume 8.3 fl (7.4-10.4); Monocytes # 1.6 K/mm3 (0.1-1.0); Monocytes % 10.7 % (1.7-9.3); Neutrophils # 11.3 K/mm3 (1.8-7.8); Neutrophils % 77.2 % (37.0-80.0); Platelet Count 243 K/mm3 (142-424); Red Blood Count 4.37 M/mm3 (4.20-5.40); Red Cell Distribution Width 13.7 % (11.5-17.5); White Blood Count 14.6 K/mm3 (4.8-10.8)
[2019-02-18 07:00] LABS: Alanine Aminotransferase 16 U/L (12-78); Albumin Level 1.7 gm/dL (3.4-5.0); Albumin/Globulin Ratio 0.4 (1.1-1.8); Alkaline Phosphatase 155 U/L (46-116); Anion Gap 11.2 mEq/L (5-15); Aspartate Amino Transferase 36 U/L (15-37); Bilirubin,Total 0.3 mg/dL (0.2-1.0); Blood Urea Nitrogen 14 mg/dL (7-18); Calcium 7.9 mg/dL (8.5-10.1); Carbon Dioxide 26 mmol/L (21.0-32.0); Chloride 107 mmol/L (98-107); Creatinine Clearance Estimated 98 mL/min (50-200); Creatinine,Serum 0.89 mg/dL (0.55-1.02); Estimated Glomerular Filt Rate 65 ml/min (>60); GFR (African American) 79 ML/MIN (>60); Globulin 3.8 gm/dl (1.3-3.2); Glucose 167 mg/dL (74-106); Potassium 4.2 mmoL/L (3.5-5.1); Sodium 140 mmol/L (136-145); Total Protein,Serum 5.5 gm/dL (6.4-8.2)
--- NOTE | 2019-02-18 09:49 | HMH.ACPN2 ---
Internal Medicine - PN: Subj *Date: 02/18/19 *Time: 09:49 Interval history: a little better but still with sig diarrhea- has lt foot pain - also has sl improved appetite Exam Vital signs and Labs for Last 24 Hours: Temp Pulse Resp BP Pulse Ox 98.1 F 85 18 110/65 94 L 02/18/19 07:39 02/18/19 07:39 02/18/19 07:39 02/18/19 07:39 02/18/19 07:39 Laboratory Results - last 24 hr 02/15/19 21:40: POC Glucose 486 H* 02/17/19 11:17: POC Glucose 60 L 02/17/19 11:33: POC Glucose 63 L 02/17/19 11:47: POC Glucose 56 L 02/17/19 12:13: POC Glucose 82 02/17/19 16:31: POC Glucose 97 02/17/19 20:17: POC Glucose 221 H 02/18/19 02:00: Random Glucose 38 L* 02/18/19 05:40: Sodium 140, Potassium 4.2 D, Chloride 107, Carbon Dioxide 26, Anion Gap 11.2, BUN 14 D, Creatinine 0.89, Estimated Creat Clear 98, Estimated GFR 65, Est GFR ( Amer) 79, Glucose 167 H D, Calcium 7.9 L, Total Bilirubin 0.3, AST 36 D, ALT 16 D, Alkaline Phosphatase 155 H, Total Protein 5.5 L, Albumin 1.7 L, Globulin 3.8 H, Albumin/Globulin Ratio 0.4 L 02/18/19 05:45: WBC 14.6 H, RBC 4.37, Hgb 12.4, Hct 39.1, MCV 89.3, MCH 28.2, MCHC 31.6 L, RDW 13.7, Plt Count 243, MPV 8.3, Neut % (Auto) 77.2, Lymph % (Auto) 11.3, [place] % (Auto) 10.7 H, Eos % (Auto) 0.3, Baso % (Auto) 0.5, Neut # (Auto) 11.3 H, Lymph # (Auto) 1.7, [place] # (Auto) 1.6 H, Eos # (Auto) 0.0, Baso # (Auto) 0.1 02/18/19 05:50: POC Glucose 158 H I & O for Last 24 hours: Intake & Output 02/15/19 02/16/19 02/17/19 02/18/19 11:59 11:59 11:59 11:59 Intake Total 560 / 560 2893 / 2893 4047 / 4047 Output Total 1300 / 1300 Balance 560 / 560 1593 / 1593 4047 / 4047 Weight 175 lb 1 oz 188 lb 2 oz 195 lb 7 oz Microbiology Reports for the Last 24 Hours: Microbiology 02/17/19 18:40 Sputum - Expectorated Sputum Gram Stain - Final 02/15/19 17:35 Blood Blood Culture - Preliminary NO GROWTH AFTER 48 HOURS 02/15/19 17:35 Blood Blood Culture - Preliminary NO GROWTH AFTER 48 HOURS - Constitutional no acute distress, obese - *Routine HEENT Exam Head: Present: normocephalic Eye: Present: EOMI, PERRL ENT: Present: mucous membranes dry - *Routine Neck Exam Present: supple. Absent: JVD - *Routine Respiratory Exam Present: decreased breath sounds - *Routine Cardiovascular Exam Present: RRR, murmur, S4 - *Routine Abdominal Exam Present: soft - *Routine Extremities Exam Present: full ROM - *Routine Skin Exam Present: intact - *Routine Neurological Exam Present: alert, CN II-XII intact - Routine Psychiatric Exam Present: normal affect Assessment and Plan (1) RAGHAV (acute kidney injury) Current visit: Yes Status: Acute Category: Medical Code(s): N17.9 - Acute kidney failure, unspecified (2) C. difficile colitis Current visit: Yes Status: Acute Category: Medical Code(s): A04.72 - Enterocolitis due to Clostridium difficile, not specified as recurrent (3) COPD exacerbation Current visit: Yes Status: Acute Category: Medical Code(s): J44.1 - Chronic obstructive pulmonary disease with (acute) exacerbation (4) Community acquired pneumonia Current visit: Yes Status: Acute Category: Medical Code(s): J18.9 - Pneumonia, unspecified organism (5) Sepsis Current visit: Yes Status: Acute Category: Medical Code(s): A41.9 - Sepsis, unspecified organism (6) Type 2 diabetes mellitus with hyperglycemia Current visit: Yes Status: Chronic Category: Medical Code(s): E11.65 - Type 2 diabetes mellitus with hyperglycemia (7) Abdominal pain Current visit: No Status: Acute Qualifiers: Abdominal location: right lower quadrant Qualified Code(s): R10.31 - Right lower quadrant pain Category: Medical Code(s): R10.9 - Unspecified abdominal pain (8) Hep B w/o coma Current visit: No Status: Chronic Category: Medical Code(s): B19.10 - Unspecified viral hepati
--- NOTE | 2019-02-18 10:06 | HMH.ACPN ---
Internal Medicine - PN: Subj *Date: 02/18/19 *Time: 10:06 Exam Vital signs and Labs for Last 24 Hours: Temp Pulse Resp BP Pulse Ox 98.1 F 85 18 110/65 94 L 02/18/19 07:39 02/18/19 07:39 02/18/19 07:39 02/18/19 07:39 02/18/19 07:39 Laboratory Results - last 24 hr 02/15/19 21:40: POC Glucose 486 H* 02/17/19 11:17: POC Glucose 60 L 02/17/19 11:33: POC Glucose 63 L 02/17/19 11:47: POC Glucose 56 L 02/17/19 12:13: POC Glucose 82 02/17/19 16:31: POC Glucose 97 02/17/19 20:17: POC Glucose 221 H 02/18/19 02:00: Random Glucose 38 L* 02/18/19 05:40: Sodium 140, Potassium 4.2 D, Chloride 107, Carbon Dioxide 26, Anion Gap 11.2, BUN 14 D, Creatinine 0.89, Estimated Creat Clear 98, Estimated GFR 65, Est GFR ( Amer) 79, Glucose 167 H D, Calcium 7.9 L, Total Bilirubin 0.3, AST 36 D, ALT 16 D, Alkaline Phosphatase 155 H, Total Protein 5.5 L, Albumin 1.7 L, Globulin 3.8 H, Albumin/Globulin Ratio 0.4 L 02/18/19 05:45: WBC 14.6 H, RBC 4.37, Hgb 12.4, Hct 39.1, MCV 89.3, MCH 28.2, MCHC 31.6 L, RDW 13.7, Plt Count 243, MPV 8.3, Neut % (Auto) 77.2, Lymph % (Auto) 11.3, [place] % (Auto) 10.7 H, Eos % (Auto) 0.3, Baso % (Auto) 0.5, Neut # (Auto) 11.3 H, Lymph # (Auto) 1.7, [place] # (Auto) 1.6 H, Eos # (Auto) 0.0, Baso # (Auto) 0.1 02/18/19 05:50: POC Glucose 158 H I & O for Last 24 hours: Intake & Output 01/02/02/16/19 02/17/19 02/18/19 23:59 23:59 23:59 23:59 Intake Total 3013 / 3013 2927 / 2927 1560 / 1560 Output Total 1300 / 1300 Balance 3013 / 3013 1627 / 1627 1560 / 1560 Weight 79.435 kg 79.4 kg 85.332 kg 88.649 kg Microbiology Reports for the Last 24 Hours: Microbiology 02/17/19 18:40 Sputum - Expectorated Sputum Gram Stain - Final 02/15/19 17:35 Blood Blood Culture - Preliminary NO GROWTH AFTER 48 HOURS 02/15/19 17:35 Blood Blood Culture - Preliminary NO GROWTH AFTER 48 HOURS Assessment and Plan (1) RAGHAV (acute kidney injury) Current visit: Yes Status: Acute Category: Medical Code(s): N17.9 - Acute kidney failure, unspecified (2) C. difficile colitis Current visit: Yes Status: Acute Category: Medical Code(s): A04.72 - Enterocolitis due to Clostridium difficile, not specified as recurrent (3) COPD exacerbation Current visit: Yes Status: Acute Category: Medical Code(s): J44.1 - Chronic obstructive pulmonary disease with (acute) exacerbation (4) Community acquired pneumonia Current visit: Yes Status: Acute Category: Medical Code(s): J18.9 - Pneumonia, unspecified organism (5) Sepsis Current visit: Yes Status: Acute Category: Medical Code(s): A41.9 - Sepsis, unspecified organism (6) Type 2 diabetes mellitus with hyperglycemia Current visit: Yes Status: Chronic Category: Medical Code(s): E11.65 - Type 2 diabetes mellitus with hyperglycemia (7) Abdominal pain Current visit: No Status: Acute Qualifiers: Abdominal location: right lower quadrant Qualified Code(s): R10.31 - Right lower quadrant pain Category: Medical Code(s): R10.9 - Unspecified abdominal pain (8) Hep B w/o coma Current visit: No Status: Chronic Category: Medical Code(s): B19.10 - Unspecified viral hepatitis B without hepatic coma (9) Hep C w/o coma, chronic Current visit: No Status: Chronic Category: Medical Code(s): B18.2 - Chronic viral hepatitis C (10) Atrial fibrillation Current visit: No Status: Chronic Qualifiers: Atrial fibrillation type: paroxysmal Qualified Code(s): I48.0 - Paroxysmal atrial fibrillation Category: Medical Code(s): I48.91 - Unspecified atrial fibrillation (11) HTN (hypertension) Current visit: No Status: Chronic Qualifiers: Hypertension type: essential hypertension Qualified Code(s): I10 - Essential (primary) hypertension Category: Medical Code(s): I10 - Essential (primary) hypertension (12) Hepatitis C Cur
[2019-02-18 11:48] LABS: POC Glucose,Bedside 200 (70-110)
--- NOTE | 2019-02-18 20:53 | PC.NURSE ---
Pt alert and oriented and able to make needs known. No hypoglycemia this shift. Dr. Urban stated he was aware of hypoglycemia episodes yesterday. He did order ss regimen. See apr. CB in reach. VSS. NSR.
--- NOTE | 2019-02-18 21:01 | PC.NURSE ---
Report given to Ramy Keys RN
[2019-02-18 21:28] LABS: POC Glucose,Bedside 274 (70-110)
[2019-02-18 22:08] LABS: POC Glucose,Bedside 384 (70-110)
[2019-02-19] VITALS (12 sets, daily range): BP systolic 112–132; BP diastolic 57–78; PULSE 70–94; RESP 16–20; TEMP 36.5–37; O2SAT 91–97; BMI 34.1
--- NOTE | 2019-02-19 04:31 | PC.NURSE ---
A&O X4. PERRLA. BILATERAL CASTING ROOM HELPER AND STRENGTHS EQUAL AND STRONG. S1, S2 HEART SOUNDS NOTED UPON AUSCULTATION. +2 BILATERAL RADIAL PULSES NOTED, +1 BILATERAL PEDAL PULSES NOTED UPON PALPATION. PT CONTINUES TO C/O GENERALIZED PAIN AND PAIN SPECIFICALLY IN HER BLE (MAINLY HER LEFT LEG). PT STATES THE PAIN IS SO INTENSE IT HURTS TO WALK. PT STATES, MD IS AWARE . CONTINUED TO ADMIN PAIN MED PER APR. MED NOTED TO PROVIDE TEMPORARY RELIEF UPON REASSESSMENT. SEE PROVIDER NOTIFICATION FOR DETAILS ON BLE PAIN REPORTED TO STAFF THIS AM. NSR NOTED ON RETAIL AND RESTAURANT ASSOCIATE THIS SHIFT THUS FAR. CAP REFILL < 3 SECONDS. NO EDEMA NOTED THIS SHIFT. BILATERAL EXPIRATORY WHEEZING NOTED THROUGHOUT LUNG [place] UPON AUSCULTATION. PT TOLERATED 3 LNC WELL THIS SHIFT WITH NO COMPLAINTS. ENCOURAGED USE OF INCENTIVE SPIROMETER THIS SHIFT WHILE AWAKE. ACTIVE BOWEL SOUNDS NOTED IN ALL 4 QUADS. ABDOMEN NOTED SOFT, LARGE, AND NON-TENDER UPON PALPATION. VSS. REMAINS SAFE. CALL LIGHT WITHIN REACH. WILL CONTINUE TO MONITOR.
[2019-02-19 05:19] LABS: POC Glucose,Bedside 305 (70-110)
[2019-02-19 07:43] LABS: Basophils % 0.3 % (0.1-2.0); Eosinophils % 0.1 % (0.1-12.0); Hematocrit 41.2 % (37.0-47.0); Hemoglobin 13.2 g/dL (12.2-16.2); Lymphocytes # 1.2 K/mm3 (0.7-4.5); Lymphocytes % 8.8 % (10-50); Mean Corpuscular HGB Conc 32.1 g/dL (31.8-35.4); Mean Corpuscular Hemoglobin 28.3 pg (27.0-31.2); Mean Corpuscular Volume 88.1 fl (81-99); Mean Platelet Volume 8.3 fl (7.4-10.4); Monocytes # 0.9 K/mm3 (0.1-1.0); Monocytes % 6.5 % (1.7-9.3); Neutrophils # 11.5 K/mm3 (1.8-7.8); Neutrophils % 84.3 % (37.0-80.0); Platelet Count 334 K/mm3 (142-424); Red Blood Count 4.68 M/mm3 (4.20-5.40); Red Cell Distribution Width 13.6 % (11.5-17.5); White Blood Count 13.6 K/mm3 (4.8-10.8)
[2019-02-19 07:48] LABS: Anion Gap 12.1 mEq/L (5-15); Blood Urea Nitrogen 17 mg/dL (7-18); Calcium 8.2 mg/dL (8.5-10.1); Carbon Dioxide 24 mmol/L (21.0-32.0); Chloride 107 mmol/L (98-107); Creatinine Clearance Estimated 82 mL/min (50-200); Creatinine,Serum 1.11 mg/dL (0.55-1.02); Estimated Glomerular Filt Rate 51 ml/min (>60); GFR (African American) 61 ML/MIN (>60); Glucose 284 mg/dL (74-106); Potassium 4.1 mmoL/L (3.5-5.1); Sodium 139 mmol/L (136-145)
[2019-02-19 08:01] LABS: POC Glucose,Bedside 44 (70-110)
[2019-02-19 08:01] LABS: POC Glucose,Bedside 63 (70-110)
[2019-02-19 08:01] LABS: POC Glucose,Bedside < 40 (70-110)
[2019-02-19 08:01] LABS: POC Glucose,Bedside 95 (70-110)
[2019-02-19 08:01] LABS: POC Glucose,Bedside < 40 (70-110)
[2019-02-19 08:01] LABS: POC Glucose,Bedside 113 (70-110)
[2019-02-19 08:01] LABS: POC Glucose,Bedside 83 (70-110)
--- NOTE | 2019-02-19 08:14 | PC.NURSE ---
REKHA REPORTS A 8 POUND WT GAIN SINCE LAST WEIGHT WAS OBTAINED ON PREVIOUS SHIFT. REPORTED WT GAIN TO ONCOMING DAY SHIFT RN.
--- NOTE | 2019-02-19 08:48 | CA_ITS ---
APPROVED REPORT Bilateral Lower Extremity Venous Study for DVT. Telephone Switchboard Operator: Rukhsana Melendez RVT Indications Lower Extremity Pain: Bilateral Lower Extremity Edema: Bilateral Shortness of breath edema Risk Factors Prior Phlebitis/DVT Past History DVT : Medications Pt takes Eliqus Vein Imaging CFV (R): compressive, spontaneous, phasic, augmentation FEM (R): compressive, spontaneous, phasic, augmentation POP (R): compressive, spontaneous, phasic, augmentation PTV (R): Compressible GSV (R): Compressible Peroneals (R):Compressible GAS (R): Compressible CFV (L): compressive, spontaneous, phasic, augmentation FEM (L): compressive, spontaneous, phasic, augmentation POP (L): compressive, spontaneous, phasic, augmentation PTV (L): Compressible GSV (L): Compressible Peroneals (L):Compressible GAS (L): Compressible Findings Study suggests no evidence of DVT in the billateral lower extrenites. Study suggets no evidence of SVT in the bilateral lower extremities. Conclusion No evidence of DVT or superficial thrombophlebitis in the veins scanned of the right lower extremity. No evidence of DVT or superficial thrombophlebitis in the veins scanned of the left lower extremity. Electronically signed by : Vu Arthur MD 02/19/2019 15:42:42
--- NOTE | 2019-02-19 09:07 | XR_ITS ---
PROCEDURE: XR FOOT RT MIN 3V CLINICAL INDICATION: foot pain COMPARISON: [id number] FOOT-WT [id number] VIEWS from 03/18/2015 FTR3 FOOT-RT-3 VIEWS from 05/29/2015 XR FOOT RT 2V from 09/29/2018 XR FOOT RT MIN 3V from 10/18/2018 FINDINGS: No fracture or dislocation. No lytic or blastic change. There is normal mineralization. The joint spaces are well-preserved. No significant degenerative/arthritic changes. No erosive changes evident. Other findings:There is minimal vascular calcification. Minimal osteoarthritic changes are present at the 1st MTP joint and there is minimal lateral angulation of the distal phalanx of the 1st digit.. There is some minimal ossification of the plantar aspect of the foot posteriorly inferior to the mid aspect of the calcaneus. IMPRESSION: Chronic changes, no acute finding Dictated by: Vu Arthur MD 02/19/2019 10:56 Electronically signed by Vu Arthur MD in [place] 02/19/2019 10:56
--- NOTE | 2019-02-19 09:07 | XR_ITS ---
PROCEDURE: XR FOOT LT MIN 3V CLINICAL INDICATION: foot pain Left foot pain COMPARISON: FTWBR2 FOOT-WT [id number] VIEWS from 03/18/2015 FTR3 FOOT-RT-3 VIEWS from 05/29/2015 XR FOOT RT 2V from 09/29/2018 XR FOOT RT MIN 3V from 10/18/2018 FINDINGS: No fracture or dislocation. No lytic or blastic change. There is normal mineralization. Minimal osteoarthritic change at the calcaneocuboid joint. There is mild bony spurring of the calcaneus with some minimal calcification of the soft tissues anterior to the calcaneal spur which could represent plantar fasciitis. There is some cortical regularity of the posterior distal tibia. IMPRESSION: Chronic changes, no acute finding, possible sequela from plantar fasciitis Dictated by: Vu Arthur MD 02/19/2019 10:58 Electronically signed by Vu Arthur MD in [place] 02/19/2019 10:58
--- NOTE | 2019-02-19 09:36 | HMH.ACPN2 ---
Internal Medicine - PN: Subj *Date: 02/19/19 *Time: 09:36 Interval history: Patient complaining of left foot pain. Patient states it radiates up her leg and into her hip. Patient states she is unable to walk on her left foot. Exam Vital signs and Labs for Last 24 Hours: Temp Pulse Resp BP Pulse Ox 98.6 F 82 20 119/71 96 02/19/19 08:00 02/19/19 08:00 02/19/19 08:00 02/19/19 08:00 02/19/19 08:00 Laboratory Results - last 24 hr 02/17/19 11:03: POC Glucose 63 L 02/18/19 01:52: POC Glucose < 40 L* 02/18/19 01:54: POC Glucose < 40 L* 02/18/19 02:08: POC Glucose 44 L* 02/18/19 02:13: POC Glucose 113 H 02/18/19 02:30: POC Glucose 83 02/18/19 02:31: POC Glucose 95 02/18/19 05:40: Uric Acid 5.0 02/18/19 11:13: POC Glucose 200 H 02/18/19 17:11: POC Glucose 274 H 02/18/19 20:22: POC Glucose 384 H* 02/19/19 04:48: POC Glucose 305 H* 02/19/19 07:35: WBC 13.6 H, RBC 4.68, Hgb 13.2, Hct 41.2, MCV 88.1, MCH 28.3, MCHC 32.1, RDW 13.6, Plt Count 334 D, MPV 8.3, Neut % (Auto) 84.3 H, Lymph % (Auto) 8.8 L, [place] % (Auto) 6.5, Eos % (Auto) 0.1, Baso % (Auto) 0.3, Neut # (Auto) 11.5 H, Lymph # (Auto) 1.2, [place] # (Auto) 0.9, Eos # (Auto) 0.0, Baso # (Auto) 0.0 02/19/19 07:35: Sodium 139, Potassium 4.1, Chloride 107, Carbon Dioxide 24, Anion Gap 12.1, BUN 17, Creatinine 1.11 H D, Estimated Creat Clear 82, Estimated GFR 51 L, Est GFR ( Amer) 61 D, Glucose 284 H, Calcium 8.2 L I & O for Last 24 hours: Intake & Output 02/16/19 02/17/19 02/18/19 02/19/19 11:59 11:59 11:59 11:59 Intake Total 560 / 560 2893 / 2893 4297 / 4297 2104 Output Total 1300 / 1300 Balance 560 / 560 1593 / 1593 4297 / 4297 2104 Weight 175 lb 1 oz 188 lb 2 oz 195 lb 7 oz 205 lb Microbiology Reports for the Last 24 Hours: Microbiology 02/17/19 18:40 Sputum - Expectorated Sputum Gram Stain - Final 02/17/19 18:40 Sputum - Expectorated Sputum Sputum Culture - Preliminary - Constitutional no acute distress, obese, chronically ill appearing - *Routine HEENT Exam Head: Present: normocephalic Eye: Present: PERRL ENT: Present: mucous membranes moist - *Routine Neck Exam Present: supple. Absent: lymphadenopathy - *Routine Respiratory Exam Present: wheezes - *Routine Cardiovascular Exam Present: RRR - *Routine Abdominal Exam Present: soft, normoactive bowel sounds. Absent: tenderness - *Routine Extremities Exam Present: full ROM, normal capillary refill. Absent: cyanosis, clubbing, edema, calf tenderness Comments: let foot swollen and warm to touch - *Routine Skin Exam Present: intact, warm. Absent: rash - *Routine Neurological Exam Present: alert, oriented X3 - Routine Psychiatric Exam Present: normal affect Assessment and Plan (1) RAGHAV (acute kidney injury) Current visit: Yes Status: Acute Category: Medical Code(s): N17.9 - Acute kidney failure, unspecified (2) C. difficile colitis Current visit: Yes Status: Acute Category: Medical Code(s): A04.72 - Enterocolitis due to Clostridium difficile, not specified as recurrent (3) COPD exacerbation Current visit: Yes Status: Acute Category: Medical Code(s): J44.1 - Chronic obstructive pulmonary disease with (acute) exacerbation (4) Community acquired pneumonia Current visit: Yes Status: Acute Category: Medical Code(s): J18.9 - Pneumonia, unspecified organism (5) Sepsis Current visit: Yes Status: Acute Category: Medical Code(s): A41.9 - Sepsis, unspecified organism (6) Type 2 diabetes mellitus with hyperglycemia Current visit: Yes Status: Chronic Category: Medical Code(s): E11.65 - Type 2 diabetes mellitus with hyperglycemia (7) Abdominal pain Current visit: No Status: Acute Qualifiers: Abdominal location: right lower quadrant Qualified Code(s): R10.31 - Right lower quadrant pain Category: Medical Code(s): R10.9 - Unspecified abdominal pain (8) Hep B w/o coma Curr
--- NOTE | 2019-02-19 10:02 | HMH.OTEV ---
OT Inpatient Evaluation Rehab OT IP Evaluation Start: 02/19/19 08:48 Freq: ONCE Status: Complete Protocol: [facility]19[facility]19 09[facility]Rec[facility] 02[facility]19/19 10[facility]02 [id number] Rehab OT IP Assessment Subjective History Pt oriented x 3 upon arrival. Pt agreeable to engage in therapy evaluation. Pt reports she lived at home alone prior to being hospitalized. Pt claims she was independent with all ADLs and IADL's. Pt did have several AE to assist in functional ability; walker, cane, wheelchair, hospital bed , and shower chair. Pt also still drove if she needed to. Subjective I am ready to go home. Objective Patient Orientation Person,Place,Birthday Upper Extremity Gross ROM WFL Bed Mobility bed mobility-scooting,bed mobility - supine/sit,bed mobility - rolling Assist Level Supervision/Stand by Transfer Training Sit/Stand Transfer Assist Level Supervision/Stand by Chair Transfer Ability Supervision/Stand by Chair Transfer Technique Sit to/from Ambulatory Chair Transfer Assistive Devices Rolling Walker Feeding Ability Independent Lower Body Dressing Ability Standby Assistance Upper Body Dressing Ability Standby Assistance Rehab OT IP prob,goals,plan Problems Date of Evaluation: 02/19/19 Rehab Potential Rehab Potential Innapropriate for Skilled Therapy Discharge Plan OT Discharge Plan Pt appears to be at baseline functionally at this time. Pt is safe to return home once medically stable. Pt informed therapist her nekyle will be staying with her for a while to assist when needed. Eval Complexity Eval Charge Codes 73633 - Moderate Complexity G Codes G -code Required Yes OT Current Status Self Care OT Current Status Modifier CJ-At least 20% but less than 40% impaired, limited or restricted OT Goal Status Self Care OT Goal Status Modifier CJ-At least 20% but less than 40% impaired, limited or
--- NOTE | 2019-02-19 10:26 | HMH.PTEV ---
Physical Therapy Evaluation Rehab PT IP Evaluation Start: 02/19/19 08:48 Freq: .once Status: Active Protocol: Document 02/19/19 10:23 PWSTAR (Rec: 02/19/19 10:26 PWSTAR [id number]) Subjective/History History History This is the initial IP PT evaluation for Kassy Bartlett. Pt is a 58 y/o female admitted to [facility] for multiple issues including COPD and sepsis Subjective Subjective pt reports her feet hurt Rehab PT IP Eval Objective Appearance Patient Behavior Appropriate,Cooperative Patient Orientation Person,Place,Time,Name, Birthday,Situation Difficulty following instructions none Speech Pattern Clear,Appropriate Ambulation Patient Able to Ambulate Yes Ambulation Observation IP General Gait Pattern Observation Shuffling Step Ambulation Distance (feet) 5 Ambulation Assistive Device None Balance Ability to Arise Able, w/o using arms Sitting Balance Steady, safe Standing Balance Steady, wide stance Dynamic Sitting Balance Ability Good Dynamic Standing Balance Ability Fair Transfers Bed Transfer Ability Independent Chair Transfer Ability Independent Sit to Stand Bed Transfer Ability Supervision/Stand by Sit to Stand Chair Transfer Ability Contact Guard/Hand Hold ROM All Extremities PT ROM Status WFL MMT All Extremities PT MMT WFL Rehab PT IP prob,goals,plan Problems Date of Evaluation: 02/19/19 PT IP Problems Transfers,Gait,Balance,Safety Rehab Potential Rehab Potential Good Equipment Needs Assistive Devices Rolling / Wheeled Walker Plan PT Intervention Plan Transfers,Gait,Therapeutic Exercise PT Plan Frequency BID Duration LOS Discharge Goals Bed Transfer Ability Independent Sit to Stand Chair Transfer Ability Supervision/Stand by Ambulation Assistive Device Rolling Walker Ambulation Distance (feet) 25 Discharge Plan PT Discharge Plan pt to return home w/ supervision and assistance G -code Required Yes Eval Complexity Eval Charge Codes 20907 - Low Complexity G Codes PT Current Status Mobility PT Current Status Modifier CJ-At least 20% but less than 40% impaired, limited or restricted PT Goal Status Mobility PT Goal Status Modifer CJ-At least 20% bu
[2019-02-19 11:45] LABS: POC Glucose,Bedside 297 (70-110)
--- NOTE | 2019-02-19 12:39 | HMH.ORTHOCON ---
*Admission Date: 02/16/19 *Reason for consult:: Left foot pain *History of present illness: Ms. Bartlett is a 58-year-old diabetic female who complains of left foot pain. She reports left foot pain started in the last few days. Pain located to the bottom of the left arch and heel. Pain worse with weightbearing. When she first stands up she reports it is unbearable and I cannot walk . Patient was admitted 02/15/2019 for GI issues. She is currently getting metronidazole and levofloxacin for C. difficile. Patient also request to make follow-up appointment for routine diabetic foot care. Review of Systems - Review of Systems Review of systems:: pertinent systems reviewed and negative unless documented below - Constitutional Reports fatigue, Reports weakness, Denies chills - Eyes Denies blurry vision - ENT Denies abnormal hearing - *Cardiovascular Reports leg swelling, Denies chest pain - *Respiratory Denies shortness of breath - *Gastrointestinal Reports abdominal pain, Reports change in bowel habits, Reports loose stools - *Genitourinary Denies abnormal periods - *Musculoskeletal Reports muscle weakness - Integumentary/Breasts Reports hair loss, Reports nail changes, Denies wounds - *Neurologic Reports tingling/numbness/burning sensations - Psychiatric Denies abnormal sleep pattern - Hematologic/Lymphatic Reports easy bruising - Allergic/Immunologic Reports GI upset with certain foods [facility] History I have reviewed the patient's past medical history: Yes Medical History: Reports:: Anxiety, Atrial Fibrillation, Cancer, Congestive Heart Failure, Chronic Obstructive Pulmonary Disease (COPD), Depression, Diabetes Mellitus Type 2, Gastroesophageal Reflux Disease(GERD), Hyperlipidemia, Hypertension, Migraine, Peripheral Artery Disease, Renal Insufficiency Denies:: Diabetes Mellitus Type 1, MRSA *Have you ever received a pneumonia vaccine?: No (pt isn't sure when last had) *Have you received a flu vaccine this season?: No Other Medical History: Reports: Cataracts, Glaucoma, Liver Disease, Other Laterality Cases: Right: Carpal Tunnel Release, Bilateral: Tonsillectomy Other Surgeries: Yes: Appendectomy, Cardiac Catheterization, Cholecystectomy, Colonoscopy, Diagnostic Lap, Hysterectomy-Total, Tubal Ligation, Other Amputation: No Fractures: Yes (BACK) - *Social History Educational Level: Attended High School Smoking Status: Former smoker Tobacco Type: cigarettes # Packs/Day (cigarettes): 2 #Yrs smoked (if former smoker): 30 Smoking End Date: 2017 Alcohol Intake: former Alcohol Intake Frequency:: other Substance Use Type: denies use *Occupational Status:: unemployed, disabled Housing: apartment Household Members: none *Travel in the last 8 weeks: None - Psychiatric History Pschychiatric History:: Reports:: Anxiety, Depression Family Hx:: Asthma, Cancer, Coronary Artery Disease, Diabetes, Heart Attack, Hyperlipidemia, Hypertension, Kidney Disease, Stroke, Thyroid Disorder, Tuberculosis, Alcoholism, Mental illness Meds Home Medications Medication Instructions Recorded Confirmed Type ranitidine HCl 150 mg tablet 150 mg PO BID 30 Days tab 09/29/17 02/16/19 History Fluticasone Propionate [Flonase 1 spray INTRANASAL DAILY 05/17/18 02/15/19 History Allergy Relief NS] Isosorbide Mononitrate [Imdur 30mg 30 mg PO DAILY 05/17/18 02/16/19 History ER tablet] Ropinirole HCl 1 mg PO BID 05/17/18 02/16/19 History albuterol sulfate 90 mcg/actuation 2 puff INHALATION Q4-6H PRN 90 06/14/18 02/16/19 Rx aerosol inhaler Days #3 units Ipratropium/Albuterol Sulfate 3 ml IH QID 09/30/18 02/16/19 History [Duoneb 3mL neb] cholecalciferol (vitamin D3) 25 1,000 unit PO DAILY #90 cap 10/17/18 02/16/19 Rx mcg (1,000 unit) capsule metoprolol succinate 50 mg 50 mg PO DAILY #90 tab 11/13/18 02/16/19 Rx tablet,extended release 24 hr oxycodone-acetaminophen 7.5 mg-325 1 tab PO QID PRN #120 tab 12/18/18 02/16/19 Rx
--- NOTE | 2019-02-19 13:34 | SW/DCPLANNER ---
Addendum entered by Diana Ch 02/20/19 10:20: SET UP HOME HEALTH FOR THIS PATIENT TODAY PRIOR TO DISCHARGE... SHE WISHES TO USE [facility] AND THIS HAS BEEN SET UP FOR THEM TO MAKE CONTACT WITH HER FOR SERVICES TO START IN THE AM... Original Note: I have spoke with this patient regarding discharge plans. Patient stated that her plan is to discharge home and her niece anticipates moving in with her to care for her at home. Patient stated that she has used [facility] in the past and is willing to utilize these services again. Patient currently has a wheelchair, rolling walker, cane, and hospital bed at home. Patient stated that she has no other needs at this time. Home health services will be set up with [facility] at time of discharge if ordered by .
--- NOTE | 2019-02-19 13:41 | DIET.NUTRFU ---
Pt with elevated BG today dt antibiotics and infection, though she had hypoglycemia 2da before diet was advanced, which resolved with snacks and Gatorade. Diet has been well tolerated and intakes are good- 75%. She is recorded to have gained a considerable amount of weight in past 3 days- 20#, however her first weighing may have been inaccurate. She has had edema. Will continue to monitor diet tolerance, weight, and BG.
[2019-02-19 16:34] LABS: POC Glucose,Bedside 375 (70-110)
--- NOTE | 2019-02-19 17:56 | PC.NURSE ---
Pt has been up to chair for most of this shift. Denies shortness of air. Has complained of generalized aching with pain meds administered twice during shift. Pt found out this evening that her niece was found today from overdose, pt is tearful at this time. No other issues/concerns noted.
--- NOTE | 2019-02-19 19:12 | PC.NURSE ---
report given to paris
[2019-02-19 20:47] LABS: POC Glucose,Bedside 297 (70-110)
[2019-02-20] VITALS: BP 103/59; PULSE 78; PULSE 80; TEMP 36.8; O2SAT 94
[2019-02-20 02:27] VITALS: PULSE 75; PULSE 90
[2019-02-20 04:00] VITALS: BP 124/65; PULSE 80; PULSE 85; RESP 23; TEMP 36.8; O2SAT 93
--- NOTE | 2019-02-20 04:22 | PC.NURSE ---
pt had a good night. c/o general pain, my everyday pain , one time this shift, prn pain medication was given. pt has been up to bsc independently, reports no issues and none seen when she transfers herself to bsc when staff is in the room. pt reports being more swollen than her normal. she also reports the boot Dr. Ochoa put on has helped her leg pains a lot. pt hopes to get to go home to be with her family today. she is currently on 3LNC, home dependent. vss. will cont. to monitor.
[2019-02-20 05:00] VITALS: BMI 34.7
[2019-02-20 05:50] VITALS: PULSE 73; PULSE 75; O2SAT 95
[2019-02-20 05:58] LABS: POC Glucose,Bedside 353 (70-110)
[2019-02-20 08:00] VITALS: BP 128/74; PULSE 70; PULSE 83; RESP 20; TEMP 37; O2SAT 94
--- NOTE | 2019-02-20 09:09 | HMH.DCSUM ---
General - General Admission date:: 02/15/19 Discharge date: 02/20/19 HPI HPI: 58-year-old female with history of A. fib, severe COPD on continuous oxygen at home, multiple other comorbidities as listed in the following section who presented with several days of nausea, vomiting, diarrhea. Reports additionally having worsening respiratory symptoms and fatigue which ultimately led to her coming to the emergency room. Reports she was feeling dizzy and had significant abdominal pain. Difficult time staying hydrated. Upon presentation to the ER initial work-up concerning for right middle lobe pneumonia, hypoxemia, sepsis criteria met, and RAGHAV. Additionally patient had significant hyperglycemia in the setting of her diabetes, and market leukocytosis. Given her diarrhea and abdominal pain a stool study was performed showing C. difficile on admission. She was admitted for acute management of her acute on chronic respiratory failure, pneumonia in the setting of COPD, sepsis, C. difficile colitis. Initiated on broad-spectrum antibiotics, cultures obtained, fluids initiated. On exam this morning she reports still feeling very ill however somewhat improved from presentation. Still complains of shortness of breath and harsh productive cough. Having multiple loose stools overnight. Denies any savanna emesis but does complain of nausea. Denies any blood in her stool. Feeling somewhat better after IV fluids. Has a [place] in and would like to have it taken out. Remained hemodynamically stable overnight without fever Hospital Course Hospital Course: 58-year-old female patient sitting in bed respirations easy even oxygen per nasal cannula is on. An Unna boot on left lower extremity is in place, she reports that her left lower extremity is feeling better today. Discussed her discharge home, she is agreeable to this. Vancomycin protocol for C. difficile recurrence discussed with pharmacy and orders placed. Her pneumonia has already been covered by [facility] for 5 days Podiatry has seen and recommends: LEFT PLANTAR FASCIITIS: X-rays 3 views both feet taken 02/19/2019 evaluated self. Report noted. Radiographs were reviewed and discussed with the patient. X-rays show spurring on the posterior and inferior aspect of the heel. Early degenerative changes noted throughout the foot. I discussed the condition and etiology with the patient. I educated the patient on conservative treatment and explained that the majority of patients with plantar fasciitis will resolve with conservative therapy. Recommended treatment: 1. Ice (frozen water bottle) 2. NSAIDS; Rx will be faxed for compounding nerve cream 3. Support shoes/inserts 4. May need night splint if symptoms do not resolved 5. Dispensed and fitted a short fracture boot at bedside today A pre-fabricated short fracture boot was dispensed and fitted at this visit. Due to the diagnosis and elated symptoms this is medically necessary for treatment. The function of this device is to redistribute pressure, provide compression, and reduce stress and strain at the ankle/foot ligaments, tendons and along the Achilles tendon. The goals and function of this device was explained in detail to the patient. Upon gait analysis, the device appeared to be fitting well, and the patient states that the device is comfortable at this time. The patient was shown how to properly apply, wear, and care for the device. The patient was able to apply properly and ambulate without distress. At the time the device was dispensed, it was suitable for the patient's condition and was not substandard. No guarantees were given, and precautions were reviewed. Written instructions and warranty information was given along with the list of the [employer] (Durable Medical Equipment Supplier Guidelines), . All questions were answered satisfactorily. Approximately 15-20 minutes were spent on education. [L1902] 6. F/u outpat
[2019-02-20 09:49] VITALS: PULSE 73; PULSE 74
--- NOTE | 2019-02-20 11:25 | HMH.PHAINT ---
DISCHARGE COUNSELING COMPLETED FOR ALL MEDICATIONS. DRUG MONOGRAPHS GIVEN FOR BOTH NEW MEDS. PATIENT VERBALIZED UNDERSTANDING AND HAD NO QUESTIONS.
--- NOTE | 2019-02-20 11:27 | HMH.PHAINT ---
DISCHARGE COUNSELING COMPLETED FOR ALL MEDICATIONS. DRUG MONOGRAPHS GIVEN FOR NEW MEDS. PATIENT VERBALIZED UNDERSTANDING AND ADHERENCE IMPORTANCE WITHOUT ANY QUESTIONS.
[2019-02-20 12:03] LABS: POC Glucose,Bedside 348 (70-110)
--- OUTSIDE RECORDS SUMMARY | 2019-02-21 15:40 | XMS_ITS | Continuity of Care Document ---
:1960 Author Organization [facility] Address [address] [place] [address] Phone Care Team Providers Name Role Phone Irma Attending Provider Gabriela Attending Provider Javi Urban Primary Care Provider Black Attending Provider Javi Urban Attending Provider Frymmaddie Attending Provider Allergies, Adverse Reactions, Alerts Allergen Type Severity Reaction Last Verified Status Updated methocarbamol Allergy Severe Altered mental December Yes A ctive status 2018 3:52pm terbutaline Allergy Severe SWELLS THROAT February Yes Acti ve 2019 5:05am aspirin Allergy Moderate I-RASH Ja
== END 2019-02-20 13:47 | disposition home health service (06) | DRG 193 ==
LOC: ER 17:29 → 2ND 21:21
PROVIDERS: Nurse Practitioner Family; Admitting Provider Internal Medicine Adolescent Medicine; Emergency Provider Emergency Medicine; PCP Emergency Medicine; Visit Provider Emergency Medicine
DX: J18.9 Pneumonia, unspecified organism (principal); J96.20 Acute and chronic respiratory failure, unspecified whether with hypoxia or hypercapnia; J44.1 Chronic obstructive pulmonary disease with (acute) exacerbation; B18.1 Chronic viral hepatitis B without delta-agent; A04.71 Enterocolitis due to Clostridium difficile, recurrent; I13.0 Hypertensive heart and chronic kidney disease with heart failure and stage 1 through stage 4 chronic kidney disease, or unspecified chronic kidney disease; N17.9 Acute kidney failure, unspecified; M72.2 Plantar fascial fibromatosis; Z99.81 Dependence on supplemental oxygen; B18.2 Chronic viral hepatitis C; I48.91 Unspecified atrial fibrillation; E11.22 Type 2 diabetes mellitus with diabetic chronic kidney disease; N18.9 Chronic kidney disease, unspecified; I50.9 Heart failure, unspecified; Z87.891 Personal history of nicotine dependence; Z79.4 Long term (current) use of insulin; H40.9 Unspecified glaucoma; F32.9 Major depressive disorder, single episode, unspecified; I89.0 Lymphedema, not elsewhere classified; K76.9 Liver disease, unspecified; E11.42 Type 2 diabetes mellitus with diabetic polyneuropathy; E11.65 Type 2 diabetes mellitus with hyperglycemia; Z79.51 Long term (current) use of inhaled steroids; Z79.01 Long term (current) use of anticoagulants; Z79.899 Other long term (current) drug therapy; Z88.0 Allergy status to penicillin; Z88.2 Allergy status to sulfonamides; Z88.5 Allergy status to narcotic agent; Z88.8 Allergy status to other drugs, medicaments and biological substances
CPT/HCPCS: 36415; 71045; 73630; 80048; 80053; 80061; 81001; 82272; 82803; 82947; 82962; 83605; 83735; 83880; 84100; 84484; 84550; 85007; 85025; 87040; 87070; 87205; 87275; 87276; 87507; 93005; 93970; 94640; 94761; 96365; 96366; 96367; 97161; 97166; 99285; G0328; J1956; J2405; J3370

== ENCOUNTER → 2019-02-23 17:36 | Outpatient (CLI) | payer MEDICARE, MEDICAID, SELFPAY | PROVIDERS: Visit Provider Emergency Medicine | DX: E11.65 Type 2 diabetes mellitus with hyperglycemia (principal); Z79.4 Long term (current) use of insulin | CPT/HCPCS: 83036 ==

== ENCOUNTER 2019-03-01 14:14 | Outpatient (RCR) | payer MEDICARE, MEDICAID, SELFPAY ==
--- NOTE | 2019-03-01 15:30 | HMH.PTOPWND ---
Rehab Outpt Wound Evaluation Rehab OP Wound Evaluation Start: 03/01/19 14:21 Freq: Status: Active Protocol: Document 03/01/19 15:16 DARA (Rec: 03/01/19 15:27 PHORNE [id number]) Electronically Signed By Roel Byrnes, PT 03/01/19 15:16 Subjective/History History History Pt is 58 yowf who presents with c/o B LE edema increased x 2-3 wks with insidious onset . She also c/o severe tenderness to palpation of the R lower leg with increased erythema, pitting edema, and the appearance of excoriation. She reports that she has not been scratching her leg at all and that the multiple sores on her R lower leg resulted from the severe edema and weeping from her skin. She reports decreased ability to transfer due to the pain in her feet. She was admitted to [facility] ~ 2 wks ago due to CAP with sepsis, C-diff, and COPD exac and is continuing to take oral abx. She has PMH of A- fib, CHF, DM-II with neuropathy, HTN, PVD, HEP-B, HEP-C, chronic LBP, appy, cardiac cath, CCY, DEMI. Last A1c was 11.0% Subjective Subjective She c/o severe tenderness to palpation and 9/10 pain in R lower leg. Wound Eval Wound Right Lower Leg Wound Type possible cellulitis Wound Bed Appearance [place] Wound Margins Description Indistinct Surrounding Tissue Appearance Bright Red Edema Type Pitting Edema Degree 4+ Query Text:1+ Trace, Barely Detectable, Rebound 15-30 seconds 2+ Moderate, Slight Indentation, Rebound 10-20 seconds 3+ Deep, Deeper Indentation, Rebound > 30 seconds 4+ Very Deep, Rebound > 60 seconds Edema Appearance Puffy,Open Sores,Red Surrounding Tissue Temperature Warm Drainage Description None Primary Dressing Unna Boot Wound Secondary Dressing Type Gauze Roll/Wrap,Adhering Gauze Roll Dressing Change Patient Tolerance Tolerated Well Lymphedema Eval Classification of Lymphedema Secondary Lymphedema
== END 2019-03-01 14:20 | disposition home or self-care (01) ==
LOC: PT 14:14
PROVIDERS: PCP Emergency Medicine; Visit Provider Podiatrist
DX: I89.0 Lymphedema, not elsewhere classified (principal)
CPT/HCPCS: 29580; 97163

== ENCOUNTER → 2019-03-27 10:03 | Outpatient (CLI) | payer MEDICARE, MEDICAID, SELFPAY ==
--- NOTE | 2019-03-27 10:05 | US_ITS ---
APPROVED REPORT Exam Type: Lower Extremity Segmental Pressures Type Copy Examiner: Shiela Tavera RDCS Indications Claudication: Limb Pain: Bilateral Rest Pain: Edema History of Smoking Pressures/Indices Right Indices Left Indices Brachial 90.00 mmHg Brachial 85.00 mmHg Low Thigh 94.00 mmHg 1.04 Low Thigh 102.00 mmHg 1.13 Calf 91.00 mmHg 1.01 Calf 106.00 mmHg 1.18 Ankle(PT) 70.00 mmHg 0.78 Ankle(PT) 105.00 mmHg 1.17 Ankle(DP) 86.00 mmHg 0.96 Ankle(DP) 97.00 mmHg 1.08 Digit 48.00 mmHg 0.53 Digit 66.00 mmHg 0.73 Findings R DAVE .8 L DAVE 1.2 R TBI .5 L TBI .7 NORMAL WAVEFORMS DIMINISHED PULSES Conclusion Slightly low right DAVE suggesting Mild arterial disease Electronically signed by : Vu Arthur MD 03/27/2019 17:47:25
== END ==
PROVIDERS: PCP Emergency Medicine; Visit Provider Podiatrist
DX: R09.89 Other specified symptoms and signs involving the circulatory and respiratory systems (principal)
CPT/HCPCS: 93923

== ENCOUNTER → 2019-04-23 17:00 | Outpatient (CLI) | payer MEDICARE, MEDICAID, SELFPAY ==
[2019-04-24 11:15] LABS: Alanine Aminotransferase 28 U/L (12-78); Albumin Level 3.9 g/dl (3.5-5.0); Albumin/Globulin Ratio 1.1 (1.1-1.8); Alkaline Phosphatase 127 U/L (38-126); Anion Gap 17.2 mEq/L (5-15); Aspartate Amino Transferase 33 U/L (14-36); Bilirubin,Total 0.3 mg/dl (0.2-1.3); Blood Urea Nitrogen 37 mg/dl (7-17); Carbon Dioxide 30 mmol/L (22.0-30.0); Chloride 99 mmol/L (98-107); Chol/HDL Ratio 2.7 (1-3.5); Cholesterol 158 mg/dl (140-200); Estimated Glomerular Filt Rate 39 ml/min (>60); GFR (African American) 47 ML/MIN (>60); Globulin 3.7 g/dL (1.3-3.2); Glucose 67 mg/dl (74-100); HDL Cholesterol 59 mg/dl (40-60); Potassium 4.2 mmoL/L (3.5-5.1); Sodium 142 mmol/L (136-145); Total Protein,Serum 7.6 g/dl (6.3-8.2); Triglycerides 95 mg/dl (30-150); VLDL Cholesterol 19 mg/dL (0-40)
[2019-04-24 11:24] LABS: Basophils # 0.1 K/mm3 (0-0.2); Basophils % 0.9 % (0.1-2.0); Eosinophils # 0.2 K/mm3 (0.0-0.4); Eosinophils % 2.1 % (0.1-12.0); Lymphocytes # 4.8 K/mm3 (0.7-4.5); Lymphocytes % 46.4 % (10-50); Mean Corpuscular HGB Conc 29.9 g/dL (31.8-35.4); Mean Corpuscular Hemoglobin 27.1 pg (27.0-31.2); Mean Corpuscular Volume 90.5 fl (81-99); Mean Platelet Volume 10.3 fl (7.4-10.4); Monocytes # 0.9 K/mm3 (0.1-1.0); Monocytes % 8.7 % (1.7-9.3); Neutrophils # 4.3 K/mm3 (1.8-7.8); Neutrophils % 41.9 % (37.0-80.0); Platelet Count 363 K/mm3 (142-424); Red Blood Count 5.52 M/mm3 (4.20-5.40); White Blood Count 10.3 K/mm3 (4.8-10.8)
[2019-04-24 11:27] LABS: Direct LDL Cholesterol 83.25 mg/dL (100-129)
[2019-04-24 11:32] LABS: Free T4 (Free Thyroxine) 1.09 ng/dl (0.78-2.19)
[2019-04-24 11:33] LABS: Hemoglobin A1C 9.4 % (4.0-6.0)
[2019-04-24 11:46] LABS: Thyroid Stimulating Hormone 1.26 uIU/mL (0.465-4.68)
[2019-04-25 11:44] LABS: Creatinine, Urine 28.5 mg/dL (Not Estab.); Microalbumin, Urine 10.5 ug/mL (Not Estab.)
== END ==
PROVIDERS: Visit Provider Emergency Medicine
DX: E11.9 Type 2 diabetes mellitus without complications (principal); R09.89 Other specified symptoms and signs involving the circulatory and respiratory systems; E11.65 Type 2 diabetes mellitus with hyperglycemia; K59.00 Constipation, unspecified; E03.9 Hypothyroidism, unspecified; Z79.4 Long term (current) use of insulin
CPT/HCPCS: 80053; 80061; 82043; 82570; 82652; 83036; 84439; 84443; 85025

== ENCOUNTER → 2019-07-31 14:30 | Outpatient (CLI) | payer MEDICARE, MEDICAID, SELFPAY ==
[2019-07-31 14:59] LABS: Basophils # 0.1 K/mm3 (0-0.2); Basophils % 0.7 % (0.1-2.0); Eosinophils # 0.4 K/mm3 (0.0-0.4); Eosinophils % 2.1 % (0.1-12.0); Hematocrit 53.7 % (37.0-47.0); Hemoglobin 17.7 g/dL (12.2-16.2); Lymphocytes # 6.3 K/mm3 (0.7-4.5); Lymphocytes % 35.5 % (10-50); MANUAL DIFFERENTIAL MANUAL DIFFERENTIAL (MANUAL DIFF); Mean Corpuscular Hemoglobin 28.1 pg (27.0-31.2); Mean Corpuscular Volume 85.3 fl (81-99); Mean Platelet Volume 8.5 fl (7.4-10.4); Monocytes % 5.9 % (1.7-9.3); Neutrophils # 9.8 K/mm3 (1.8-7.8); Neutrophils % 55.8 % (37.0-80.0); Platelet Count 275 K/mm3 (142-424); Red Cell Distribution Width 14.2 % (11.5-17.5); White Blood Count 17.6 K/mm3 (4.8-10.8)
[2019-07-31 15:30] LABS: INR 1.23 (0.9-1.1); Prothrombin Time 12.5 seconds (9.4-11.8)
[2019-07-31 15:34] LABS: Chloride 93 mmol/L (98-107); Potassium 3.5 mmoL/L (3.5-5.1); Sodium 137 mmol/L (136-145)
[2019-07-31 15:36] LABS: Blood Urea Nitrogen 49 mg/dl (7-17); Estimated Glomerular Filt Rate 26 ml/min (>60); GFR (African American) 31 ML/MIN (>60)
[2019-07-31 15:37] LABS: Alanine Aminotransferase 37 U/L (12-78); Albumin Level 4.1 g/dl (3.5-5.0); Alkaline Phosphatase 148 U/L (38-126); Anion Gap 14.5 mEq/L (5-15); Aspartate Amino Transferase 50 U/L (14-36); Bilirubin,Total 0.9 mg/dl (0.2-1.3); Calcium 9.5 mg/dl (8.4-10.2); Carbon Dioxide 33 mmol/L (22.0-30.0); Globulin 4.2 g/dL (1.3-3.2); Glucose 108 mg/dl (74-100); Total Protein,Serum 8.3 g/dl (6.3-8.2)
[2019-07-31 15:40] LABS: Eosinophils % 3 % (0-3); Lymphocytes % 42 % (10-50); Monocytes % 6 % (2-9); Neutrophils % 49 % (42-76); Platelet Estimate Normal; RBC Morphology Normal; Total Cells Counted 100
[2019-08-08 18:12] LABS: HCV Genotype Charge YES; Hepatitis C Genotype 1a (.)
== END ==
PROVIDERS: Visit Provider Nurse Practitioner Family
DX: B19.20 Unspecified viral hepatitis C without hepatic coma (principal); Z79.899 Other long term (current) drug therapy
CPT/HCPCS: 36415; 80053; 85007; 85025; 85610; 87522; 87902

== ENCOUNTER → 2019-08-15 13:44 | Outpatient (CLI) | payer MEDICARE, MEDICAID, SELFPAY ==
[2019-08-15 14:12] LABS: Chloride 96 mmol/L (98-107); Sodium 133 mmol/L (136-145)
[2019-08-15 14:13] LABS: Potassium 4.5 mmoL/L (3.5-5.1)
[2019-08-15 14:15] LABS: Blood Urea Nitrogen 35 mg/dl (7-17); Estimated Glomerular Filt Rate 42 ml/min (>60); GFR (African American) 51 ML/MIN (>60)
[2019-08-15 14:16] LABS: Anion Gap 16.5 mEq/L (5-15); Calcium 8.8 mg/dl (8.4-10.2); Carbon Dioxide 25 mmol/L (22.0-30.0)
[2019-08-15 14:33] LABS: Glucose 620 mg/dl (74-100)
[2019-08-15 15:23] LABS: Hemoglobin A1C 12.9 % (4.0-6.0)
== END ==
PROVIDERS: Visit Provider Emergency Medicine
DX: Z79.4 Long term (current) use of insulin; E11.9 Type 2 diabetes mellitus without complications
CPT/HCPCS: 80048; 83036

== ENCOUNTER → 2019-08-16 10:00 | Outpatient (CLI) | payer MEDICARE, MEDICAID, SELFPAY ==
--- NOTE | 2019-08-16 10:00 | CT_ITS ---
Procedure: CT ANGIO LE CLINICAL HISTORY: bilateral leg pain, abnormal DAVE, diabetic neuropa COMPARISON: CT ANGIO CHEST from 09/30/2018 TECHNIQUE: IV Contrast: 100ml Optiray 350 Axial images obtained with sagittal and coronal reformats. All CT scans at the facility use one or more dose reduction, viz: automated exposure control, ma/kV adjustment per patient size (including targeted exams where dose is matched to indication, i.e. head), or iterative reconstruction technique. FINDINGS: The exam includes the abdominal aorta beginning just superior to the level of the renal arteries. Part of the splenic and hepatic arteries are not visualized.. There are 2 left renal arteries and 1 right renal artery with scattered atheromatous changes but no significant stenosis. The ostium of the celiac artery is not included on the exam. There is a retro aortic left renal vein. Atherosclerotic changes involve the aortoiliac vessels. There is no evidence infrarenal abdominal aortic aneurysm. There is high-grade stenosis of the ostium of the right iliac artery of approximately 80 percent. There is approximately 50 percent luminal narrowing of the ostium of the left iliac artery. The external iliac arteries have an unremarkable appearance. Right lower extremity runoff: 30 percent stenosis involves the distal aspect of the right common femoral artery. Scattered atheromatous changes involve the SFA and popliteal artery on the right. Popliteal artery is patent with some atheromatous change. Tibial peroneal trunk is patent. The peroneal artery is occluded distally. The anterior tibial artery and posterior tibialis artery are patent to the ankle. Left lower extremity runoff: The SFA and popliteal arteries are patent with scattered atheromatous changes. There is approximately 30 stenosis at the distal left popliteal artery. There is 3 vessel patency to the ankle IMPRESSION: 1. High-grade stenosis of the ostium of the right common iliac artery of approximately 80 percent 2. Moderate stenosis of the ostium of the left common iliac artery of 50 percent 3. Scattered atheromatous changes of both lower extremities with 2 vessel runoff of the right lower extremity and three-vessel runoff of the left lower extremity. 4. Retro aortic left renal vein Dictated by: Vu Arthur MD 08/17/2019 10:01 Electronically signed by Vu Arthur MD in [place] 08/17/2019 10:01
== END ==
PROVIDERS: PCP Emergency Medicine; Visit Provider Physician Assistant
DX: B19.20 Unspecified viral hepatitis C without hepatic coma (principal); E11.42 Type 2 diabetes mellitus with diabetic polyneuropathy; I10 Essential (primary) hypertension; I48.91 Unspecified atrial fibrillation; I73.9 Peripheral vascular disease, unspecified; J44.9 Chronic obstructive pulmonary disease, unspecified; M54.9 Dorsalgia, unspecified; N28.9 Disorder of kidney and ureter, unspecified; S32.000A Wedge compression fracture of unspecified lumbar vertebra, initial encounter for closed fracture; Z03.89 Encounter for observation for other suspected diseases and conditions ruled out
CPT/HCPCS: 73701; Q9967

== ENCOUNTER 2019-09-10 09:17 | Day surgery (SDC) | payer MEDICARE, MEDICAID, SELFPAY ==
[2019-09-10] VITALS (12 sets, daily range): BP systolic 116–159; BP diastolic 76–96; PULSE 64–77; RESP 16–18; TEMP 36.7; O2SAT 88–94; BMI 30.5
--- NOTE | 2019-09-10 09:47 | CA_ITS ---
APPROVED REPORT Fagoting Machine Operator: MELODIE Laterality: Bilateral Study Quality: Good Indications: claudication, SURAJ, Bruit Risk Factors Hypertension: Doppler Spectral Velocity Analysis ECA (R) 105.90/10.30 cm/s ECA (L) 98.50/12.00 cm/s dICA (R) 81.50/27.60 cm/s dICA (L) 76.30/28.30 cm/s Rico (R) 73.80/27.60 cm/s Rico (L) 105.40/29.10 cm/s pICA (R) 55.60/19.20 cm/s pICA (L) 110.50/31.70 cm/s dCCA (R) 80.30/19.90 cm/s dCCA (L) 109.20/26.20 cm/s pCCA (R) 118.20/14.60 cm/s pCCA (L) 120.50/21.70 cm/s Vert (R) 45.80/15.00 cm/s Vert (L) 31.60/10.40 cm/s ICA/CCA 1.00 ICA/CCA 1.00 Findings Duplex evaluation demonstrates stenosis of the right proximal internal carotid artery <20% with PSV <140 cm/sec, EDV <100 cm/sec, and IC/CC Ratio <4.0. Duplex evaluation demonstrates stenosis of the left proximal internal carotid artery in the range of 20-49% with PSV <140 cm/sec, EDV <100 cm/sec, and IC/CC Ratio <4.0. Duplex evaluation demonstrates antegrade flow of the bilateral Vertebral Arteries. Conclusion Duplex evaluation demonstrates stenosis of the right proximal internal carotid artery <20% with PSV <140 cm/sec, EDV <100 cm/sec, and IC/CC Ratio <4.0. Duplex evaluation demonstrates stenosis of the left proximal internal carotid artery in the range of 20-49% with PSV <140 cm/sec, EDV <100 cm/sec, and IC/CC Ratio <4.0. Duplex evaluation demonstrates antegrade flow of the bilateral Vertebral Arteries. Electronically signed by : Migue Méndez, 09/13/2019 09:08:00
[2019-09-10 10:49] LABS: Basophils # 0.1 K/mm3 (0-0.2); Basophils % 0.7 % (0.1-2.0); Chloride 97 mmol/L (98-107); Eosinophils # 0.3 K/mm3 (0.0-0.4); Eosinophils % 2.1 % (0.1-12.0); Hematocrit 48.4 % (37.0-47.0); Hemoglobin 15.5 g/dL (12.2-16.2); Lymphocytes # 4.6 K/mm3 (0.7-4.5); Lymphocytes % 35.8 % (10-50); Mean Corpuscular Hemoglobin 28.1 pg (27.0-31.2); Mean Platelet Volume 8.4 fl (7.4-10.4); Monocytes % 7.8 % (1.7-9.3); Neutrophils # 6.9 K/mm3 (1.8-7.8); Neutrophils % 53.7 % (37.0-80.0); Platelet Count 350 K/mm3 (142-424); Potassium 3.7 mmoL/L (3.5-5.1); Red Cell Distribution Width 14.5 % (11.5-17.5); Sodium 143 mmol/L (136-145); White Blood Count 12.8 K/mm3 (4.8-10.8)
[2019-09-10 10:52] LABS: Anion Gap 12.7 mEq/L (5-15); Blood Urea Nitrogen 38 mg/dl (7-17); Calcium 9.3 mg/dl (8.4-10.2); Carbon Dioxide 37 mmol/L (22.0-30.0); Creatinine Clearance Estimated 71 mL/min (50-200); Estimated Glomerular Filt Rate 51 ml/min (>60); GFR (African American) 62 ML/MIN (>60); Glucose 159 mg/dl (74-100)
--- NOTE | 2019-09-10 11:15 | IR_ITS ---
APPROVED REPORT Patient Location: Outpatient PROCEDURES Left femoral arterial access Right femoral arterial access Catheter placed in the abdominal aorta Abdominal aortography Positioning of the cath in the abdominal aorta Bilateral iliofemoral angiography Bare-metal stent deployment in the right common iliac artery INDICATION Thayer class III claudication, Abnormal CAT scan CTA, 80% right common iliac artery stenosis Informed consent was obtained prior to the procedure. COMPLICATIONS NONE Estimated Blood Loss: LESS THAN 10 ML TECHNIQUE 1% lidocaine used to anesthetize the left femoral groin. The left femoral artery was accessed via the Seldinger technique. A 5 Mauritanian sheath was placed in the left femoral artery and a pigtail catheter was advanced into the abdominal aorta. Abdominal aortography was performed and the catheter was then repositioned where bilateral iliofemoral angiography was performed. Following this 1% lidocaine was used to anesthetize the right groin and the right femoral artery was accessed via the Salinger technique. A 6 Mauritanian sheath was placed in the right femoral artery. An advantage wire was used to traverse the stenosis in the right common iliac artery and an 8 mm x 27 mm EV 3 bare-metal stent was deployed at 14 rina reducing the severe stenosis to 0%. After achieving excellent angiographic results the apparatus was removed the groins were reprepped gloves were changed bilateral sheath removed good hemostasis was achieved using Perclose device in each groin and the patient was transferred to the postop holding area stable condition ANGIOGRAPHIC RESULTS The supra renal abdominal aorta is normal The bilateral renal arteries are singular normal Mesenteric arteries are normal The infrarenal abdominal aorta is atheromatous with no significant stenosis The right common iliac artery has a hazy calcified stenosis greater than 60%. The right external/internal and right common femoral arteries are normal The left common internal and external iliac arteries are normal while the left common femoral is normal IMPRESSION Severe right common iliac artery stenosis Successful stenting the right common iliac artery severe disease reduced to 0% with one bare-metal stent PLAN 1. Plavix plus Eliquis 2. LDL less than 55 3. Physical therapy 4. Risk factor modification Electronically signed by : Kaiden Chan, 09/10/2019 12:03:13
[2019-09-10 13:36] LABS: CATHL Activated Clotting Time 316 SEC (74-125)
--- NOTE | 2019-09-10 13:58 | HMH.PHACLD ---
Kassy Bartlett has received discharge medication counseling on the following medications: PATIENT CURRENTLY TAKING ATORVASTATIN 10 MG HS, METOPROLOL SUCCINATE 50 MG DAILY, AND ELIQUIS 5 MG BID. PATIENT WITH ALLERGY TO ASPIRIN WITH HIVES. MD NOT STARTING ARTUR/ARB PATIENT HAD PERIPHERAL STENT PLACED. MD IS STARTING PLAVIX 75 MG DAILY.
== END 2019-09-10 15:07 | disposition home or self-care (01) ==
LOC: CATHLAB 09:19
PROVIDERS: PCP Emergency Medicine; Visit Provider Internal Medicine
DX: I70.223 Atherosclerosis of native arteries of extremities with rest pain, bilateral legs (principal); I48.91 Unspecified atrial fibrillation; N18.3 Chronic kidney disease, stage 3 (moderate); R93.5 Abnormal findings on diagnostic imaging of other abdominal regions, including retroperitoneum; I13.0 Hypertensive heart and chronic kidney disease with heart failure and stage 1 through stage 4 chronic kidney disease, or unspecified chronic kidney disease; I50.9 Heart failure, unspecified; J44.9 Chronic obstructive pulmonary disease, unspecified; I77.1 Stricture of artery; E11.9 Type 2 diabetes mellitus without complications; Z79.4 Long term (current) use of insulin; Z79.51 Long term (current) use of inhaled steroids; Z88.8 Allergy status to other drugs, medicaments and biological substances; Z88.2 Allergy status to sulfonamides; Z88.1 Allergy status to other antibiotic agents; Z79.899 Other long term (current) drug therapy; R26.89 Other abnormalities of gait and mobility
CPT/HCPCS: 37221; 80048; 85025; 85347; 93880; 99152; 99153; C1725; C1760; C1769; C1876; C1894; J1644; Q9966

== ENCOUNTER → 2019-09-27 15:25 | Outpatient (CLI) | payer MEDICARE, MEDICAID, SELFPAY ==
--- NOTE | 2019-09-27 15:27 | CA_ITS ---
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: Leslye Gay RT(R) Ht: 5 ft 5 in Wt: 175lbs BSA: 1.87 BP: 126/70 mmHg Indications: cp, COPD, ex smoker, HTN, DM, SOB, hyperlipidemia, PAF, PAD, CHF, GERD M-Mode Dimensions RVDd 2.05 cm (0.9-2.6) LVDd 3.95 cm (3.5-5.7) LVDs 3.00 cm (3.5-5.7) IVSd 1.18 cm (0.6-1.1) PWd 1.03 cm (0.6-1.1) EF (Teich) 48.50% FS 24.10% EDV (Teich) 67.90 mL ESV (Teich) 35.00 mL LV Diastology E/A Ratio 0.95 Mitral Valve MV A Velocity 89.00 (40-130 cm/s) Left Ventricle Left atrium is mildly enlarged, left ventricle is normal size, mild concentric left ventricular hypertrophy, visually estimated ejection fraction 55% with no regional wall motion abnormality. Grade 1 diastolic dysfunction seen without tissue Doppler evidence of raise left atrial pressure. Right Ventricle Right atrium and right ventricular normal size and contractility. Aortic Valve Aortic valve is minimally thickened and fibrosed, there is no aortic stenosis or aortic insufficiency. Mitral Valve Mitral valve is grossly normal, there is mild mitral regurgitation. Tricuspid Valve Tricuspid valve is grossly normal, there is mild tricuspid regurgitation, tricuspid regurgitation jet velocity is inadequate for calculation of the right ventricular systolic pressure. Pulmonic Valve Pulmonic valve is poorly visualized. Great Vessels Aortic root is normal size. Pericardium No significant pericardial effusion noted. Conclusion 1. Mildly enlarged left atrium, normal left ventricular size, mild concentric left ventricular hypertrophy, visually estimated ejection fraction 55% with no regional wall motion abnormality, grade 1 diastolic dysfunction seen without tissue Doppler evidence of raise left atrial pressure. 2. Mild mitral and tricuspid regurgitation. 3. No significant pericardial effusion noted. Electronically signed by : Nathan Corea, 09/28/2019 10:36:30
== END ==
PROVIDERS: PCP Emergency Medicine; Visit Provider Urology
DX: I10 Essential (primary) hypertension (principal); I48.91 Unspecified atrial fibrillation; I73.9 Peripheral vascular disease, unspecified; N28.9 Disorder of kidney and ureter, unspecified; R06.02 Shortness of breath; R07.9 Chest pain, unspecified
CPT/HCPCS: 93306

== ENCOUNTER → 2019-10-15 14:09 | Outpatient (CLI) | payer MEDICARE, MEDICAID, SELFPAY ==
--- NOTE | 2019-10-15 14:13 | XR_ITS ---
PROCEDURE: XR CHEST 2V CLINICAL HISTORY: SOA COMPARISON: CR CXR2V XR chest 2V from 04/28/2018 DX CXR2V XR chest 2V from 05/15/[address] ANGIO CHEST from 09/30/2018 CR XR CHEST PORTABLE from 02/15/2019 FINDINGS: Normal heart size. Loop recorder device is present anteriorly on the left. There are chronic changes with COPD and pulmonary fibrosis. No lobar consolidation or collapse is evident. No acute bony findings. No acute bony abnormalities. IMPRESSION: COPD with pulmonary fibrotic changes. No acute finding Dictated by: Vu Arthur MD 10/15/2019 14:37 Vu Arthur MD in [facility] 10/15/2019 14:37
== END ==
PROVIDERS: PCP Emergency Medicine; Visit Provider Nurse Practitioner Family
DX: R06.02 Shortness of breath (principal)
CPT/HCPCS: 71046

== ENCOUNTER 2019-10-23 19:14 | Emergency (ER) | payer MEDICARE, MEDICAID, SELFPAY ==
[2019-10-23 19:26] VITALS: BP 104/66; PULSE 71; RESP 20; TEMP 36.8; O2SAT 98; BMI 27.3
--- NOTE | 2019-10-23 19:26 | XR_ITS ---
PROCEDURE: XR KNEE LT 3V CLINICAL INDICATION: PAIN COMPARISON: No exams were available for comparison FINDINGS: There arm minimal osteoarthritic changes of the medial compartment and there is mild chondrocalcinosis of the medial lateral meniscus. No acute fracture or dislocation. Vascular calcifications noted. IMPRESSION: Minimal osteoarthritis and chondrocalcinosis Dictated by: Vu Arthur MD 10/23/2019 23:34 Vu Arthur MD in [place] 10/23/2019 23:34
[2019-10-23 20:21] VITALS: BP 104/66; PULSE 71; RESP 20; TEMP 36.8; O2SAT 98
--- NOTE | 2019-10-23 20:35 | HMH.EDUTC ---
[facility] Disposition Clinical Impression: Instability of left knee joint Left knee pain Qualifiers: Chronicity: acute Qualified Code(s): M25.562 - Pain in left knee Disposition: Home, Self-Care Condition on Discharge: Good Instructions: DI for Knee Pain, How to Use a Knee Immobilizer Additional Instructions: Rest the extremity, Elevate the extremity as tolerated while you are resting. Follow up with Dr. Welch (orthopedics). I put in a referral but you need to call her office and schedule an appointment. Follow up with your regular doctor. GO TO THE ER FOR ANY WORSENING SYMPTOMS Referrals: Joshua Urban MD [Primary Care Provider] - Sally Charlton MD [Physician] - Time of Disposition: 20:37 Medical Decision Making - Medical Records Medical records reviewed: No: I reviewed the patient's medical records. - Jordin Inquiry Pt receiving controlled substance: No Vital Signs: 10/23/19 19:26 10/23/19 20:21 Temperature 98.2 F 98.2 F Temperature Source Oral Pulse Rate 71 Pulse Rate [Right Brachial] 71 Respiratory Rate 20 20 Blood Pressure 104/66 L Blood Pressure [Right Arm] 104/66 L Blood Pressure Mean [Right Arm] 78 Blood Pressure Source [Right Arm] Automatic Cuff Blood Pressure Position [Right Arm] Sitting 02 Sat by Pulse Oximetry 98 Oxygen Delivery Method Room Air Orders (Tests/Meds): ORDERS Category Date Time Status XR knee LT 3V Stat Exams 10/23/19 19:26 Taken - Radiology Data #1 Image(s): Knee Image Reviewed: Yes I reviewed the patient's radiology image Preliminary Findings: No Fracture Seen [facility] HPI - General Stated complaint: Left knee pain, no accident Time Seen by Provider: 10/23/19 19:30 Mode of Arrival: Ambulatory Source of Information: Patient Limitations: No Limitations Description of Symptoms (Recalled from Triage Doc. by RN): PATIENT C/O LEFT KNEE PAIN. STATES SHE WAS MOVING A BED TUESDAY AND FELT THE KNEE POP AND THE PAIN HAS PROGRESSIVELY GOTTEN WORSE HEENT Symptoms (Recalled from RN notes): No Resp Symptoms (Recalled from RN notes): No Skin Symptoms (Recalled from RN notes): No MS Symptoms (Recalled from RN notes): Yes Functional Status (Recalled from RN notes): WNL - History of Present Illness Provider Complaint: She c/o left knee pain for the past 2 days. She denies any fall. She was moving her bed and pushing against it very hard when her knee popped and started hurting. - Related Data Home Medications Medication Instructions Recorded Confirmed Fluticasone Propionate [Flonase 1 spray INTRANASAL DAILY 05/17/18 10/15/19 Allergy Relief NS] Ropinirole HCl 1 mg PO BID 05/17/18 10/15/19 Ipratropium/Albuterol Sulfate 3 ml IH QID 09/30/18 10/15/19 [Duoneb 3mL neb] Pantoprazole Sodium [Protonix 40mg 40 mg PO DAILY 02/15/19 10/15/19 tablet] insulin NPH-regular 70-30 U-100 See Rx Instructions SQ .COMPLEX 08/16/19 10/15/19 insulin 100 unit/mL subcutaneous pen Albuterol Sulfate [Albuterol 0.63 mg INHALATION Q6H 09/10/19 10/15/19 Sulfate 0.63mg/3ml Neb] Albuterol Sulfate [Proventil Hfa] See Rx Instructions .ROUTE .COMPLEX 09/10/19 10/15/19 Blood Sugar Diagnostic [Gojji 1 strip MISCELLANEOUS TID 09/10/19 10/15/19 Blood Glucose Test Strip] Blood-Glucose Meter [Blood Glucose See Rx Instructions .ROUTE 09/10/19 10/15/19 Meter] .MEDSUPPLY Buspirone HCl [Buspirone 15 mg 15 mg PO TID-QID 09/10/19 10/15/19 Tablets] Ergocalciferol (Vitamin D2) See Rx Instructions .ROUTE .COMPLEX 09/10/19 10/15/19 [Drisdol] Insulin Glargine,Hum.rec.anlog 15 unit SQ QHS 09/10/19 10/15/19 [Basaglar KwikPen U-100 Insulin] Lancets [Pip Lancet] See Rx Instructions .ROUTE .COMPLEX 09/10/19 10/15/19 Nystatin [Nystatin Susp 500,000 10 ml PO DAILY 09/10/19 10/15/19 Units/5mL Udc] Pen Needle, Diabetic [Techlite Pen See Rx Instructions .ROUTE .COMPLEX 09/10/19 10/15/19 Needle] Previous Rx's Medication Instructions Record
== END 2019-10-23 20:46 | disposition home or self-care (01) ==
PROVIDERS: Emergency Provider Nurse Practitioner Family; PCP Emergency Medicine
DX: M23.52 Chronic instability of knee, left knee (principal); F41.8 Other specified anxiety disorders; E78.5 Hyperlipidemia, unspecified; K21.9 Gastro-esophageal reflux disease without esophagitis; I10 Essential (primary) hypertension; G43.709 Chronic migraine without aura, not intractable, without status migrainosus; Z87.891 Personal history of nicotine dependence; E11.9 Type 2 diabetes mellitus without complications; Z79.899 Other long term (current) drug therapy
CPT/HCPCS: 29505; G0463; 73562; 99201; 99203

== ENCOUNTER → 2019-11-05 09:38 | Outpatient (CLI) | payer MEDICARE, MEDICAID, SELFPAY ==
--- NOTE | 2019-11-05 09:44 | XR_ITS ---
PROCEDURE: XR KNEE LT 4V CLINICAL INDICATION: left knee pain COMPARISON: CR XR KNEE LT 3V from 10/23/2019 FINDINGS: No fracture or dislocation. Minimal chondrocalcinosis lateral compartment. There is some increased density in the suprapatellar region suggesting small knee joint effusion. There is generalized vascular calcification. IMPRESSION: Suspect small knee joint effusion with chondrocalcinosis Dictated by: Vu Arthur MD 11/05/2019 11:34 Vu Arthur MD in [place] 11/05/2019 11:34
== END ==
PROVIDERS: PCP Emergency Medicine; Visit Provider Orthopaedic Surgery
DX: M25.562 Pain in left knee (principal)
CPT/HCPCS: 73564

== ENCOUNTER → 2019-11-15 14:15 | Outpatient (CLI) | payer MEDICARE, MEDICAID, SELFPAY ==
--- NOTE | 2019-11-15 14:15 | MR_ITS ---
PROCEDURE: MR KNEE LT WO CON Referring Doctor: Sally Chralton Patient Age:59Y CLINICAL INDICATION: left knee pain. Pain with weight-bearing. For fracture. Patient states heard popping sound with dislocation at time of injury?. Swelling knot underside left knee. Paste to your knee pain radiates down leg past 3 weeks. Initial injury 3 weeks ago while moving bed COMPARISON: CR XR KNEE LT 4V from 11/05/2019 TECHNIQUE: Multiplanar multisequence imaging performed on 1.5 faviola MR FINDINGS: Lateral compartment: Pronounced bone contusion throughout lateral tibial plateau associated associated osteochondral injury and fracture at the lateral weight-bearing surface of the lateral tibial plateau.-There is a 15 mm diameter times 9 mm depth nondisplaced focus of osteochondritis desiccans. A no fluid is seen passing beneath this fragment and it remains in appropriate position. There is some chondral thinning of at the lateral margin of the lateral tibial plateau overlying this area The lateral meniscus appears intact. A generous volume posterior posterior horn and body of lateral meniscus.. The lateral femoral condyle appears intact. Medial compartment: Medial meniscus intact with no definitive meniscal tear. The generous volume posterior horn contains subtle linear area of intrameniscal signal which can reflect some early degenerative features. Borderline-areas of cartilage mild of perhaps developing at the at medial femoral condyle. Osseous elements at medial compartment intact Patellofemoral joint.: . Slight lateral tilt of patella but no displacement. Only question some early thinning or signal changes at the cartilage at posterior patella The ACL and PCL are well visualized and intact. The medial and lateral collateral ligaments are intact. Joint effusion at the knee-most evident overlying the lateral tibial plateau with fluid throughout the suprapatellar bursa and elsewhere IMPRESSION: Pronounced bone contusion lateral tibial plateau . 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
== END ==
PROVIDERS: PCP Emergency Medicine; Visit Provider Orthopaedic Surgery
DX: M25.562 Pain in left knee (principal)
CPT/HCPCS: 73721

== ENCOUNTER 2019-11-23 14:03 | Outpatient (RCR) | payer MEDICARE, MEDICAID, SELFPAY | END 2019-11-23 14:47 | disposition home or self-care (01) | LOC: PT 14:03 | PROVIDERS: Visit Provider Orthopaedic Surgery | DX: M89.9 Disorder of bone, unspecified (principal); M94.9 Disorder of cartilage, unspecified; M17.12 Unilateral primary osteoarthritis, left knee | CPT/HCPCS: 97760 ==

== ENCOUNTER 2019-12-01 22:07 | Emergency (ER) | payer MEDICARE, MEDICAID, SELFPAY ==
--- NOTE | 2019-12-01 21:59 | ECG_ITS ---
APPROVED REPORT Exam: Resting ECG HR:63 bpm ECG Measurements Heart Rate 63 AXES DC 154 P 68 QRSd 68 QRS 50 QT 444 T 47 QTc 454 Conclusion Normal sinus rhythm Normal ECG Electronically signed by : Jed Andrade, 12/17/2019 16:42:42
[2019-12-01 22:04] VITALS: BP 119/70; PULSE 68; RESP 16; O2SAT 94; BMI 27.9
--- NOTE | 2019-12-01 22:12 | CT_ITS ---
PROCEDURE: CT FEMUR RT WO CON CLINICAL HISTORY: fall Severe pain following injury COMPARISON: No exams were available for comparison TECHNIQUE: Axial images obtained with sagittal and coronal reformats. All CT scans at the facility use one or more dose reduction, viz: automated exposure control, ma/kV adjustment per patient size (including targeted exams where dose is matched to indication, i.e. head), or iterative reconstruction technique. FINDINGS: There is a comminuted intertrochanteric fracture of the right femur. There is impaction of the fracture fragments and varus angulation of the distal fracture fragment. Heterotopic ossification noted at the greater trochanter region. The femoral head is located with mild osteoarthritic changes of the right hip. There are mild osteoarthritic changes of the knee. Increased soft tissue density is present around the femoral neck consistent with hemarthrosis. The lesser trochanter is displaced anteriorly by 13 mm. There is generalized vascular calcification. Periarticular calcification noted posterior to the medial femoral condyle IMPRESSION: Comminuted impacted intertrochanteric right femur fracture with coxa varum as described above Dictated by: Vu Arthur MD 12/02/2019 08:00 Vu Arthur MD in [facility] 12/02/2019 08:00
--- NOTE | 2019-12-01 22:12 | CT_ITS ---
PROCEDURE: CT CERVICAL SPINE WO CON CLINICAL INDICATION: fall Neck injury with pain, contusion/abrasion or hematoma, cervical sprain/strain the COMPARISON: No exams were available for comparison TECHNIQUE: Axial images obtained with sagittal and coronal reformats. All CT scans at the facility use one or more dose reduction, viz: automated exposure control, ma/kV adjustment per patient size (including targeted exams where dose is matched to indication, i.e. head), or iterative reconstruction technique. Axial spiral CT scanning performed of the cervical spine beginning at the base of the skull and continuing to the upper T-spine. 3-D multiplanar reconstruction with 3-D manipulation of volumetric data set in image rendering was completed by the radiologist and/or technologist with the supervision of the radiologist on independent workstation. FINDINGS: No obvious fracture or dislocation. There is mild multilevel cervical spondylosis. No bony canal stenosis. There is mild uncovertebral hypertrophy with mild bilateral foraminal narrowing at C5-C6. Pulmonary fibrotic changes are present in the lung apices with centrilobular emphysema. IMPRESSION: No acute fracture or dislocation. Pulmonary fibrosis with centrilobular emphysema Dictated by: Vu Arthur MD 12/02/2019 08:10 Vu Arthur MD in [facility] 12/02/2019 08:10
--- NOTE | 2019-12-01 22:12 | CT_ITS ---
PROCEDURE: CT HEAD/BRAIN WO CON CLINICAL INDICATION: fall Head injury with headache/pain, contusion, abrasion or hematoma COMPARISON: No exams were available for comparison TECHNIQUE: Axial images obtained. All CT scans at the facility use one or more dose reduction, viz: automated exposure control, ma/kV adjustment per patient size (including targeted exams where dose is matched to indication, i.e. head), or iterative reconstruction technique. FINDINGS: No midline shift, mass effect, intracranial hemorrhage, hydrocephalus, or extra-axial fluid collection is evident. The calvarium has an unremarkable appearance. Small amount fluid in the right mastoid sinus. Retention cyst is present in the left maxillary sinus. IMPRESSION: No acute intracranial finding Dictated by: Vu Arthur MD 12/02/2019 08:14 Vu Arthur MD in [facility] 12/02/2019 08:14
[2019-12-01 22:21] LABS: Basophils # 0.2 K/mm3 (0-0.2); Eosinophils # 0.1 K/mm3 (0.0-0.4); Mean Corpuscular HGB Conc 29.8 g/dL (31.8-35.4); Red Blood Count 6.08 M/mm3 (4.20-5.40)
[2019-12-01 22:23] LABS: Chloride 88 mmol/L (98-107); Potassium 3.9 mmoL/L (3.5-5.1); Sodium 133 mmol/L (136-145)
[2019-12-01 22:26] LABS: Alanine Aminotransferase 32 U/L (12-78); Albumin Level 4.3 g/dl (3.5-5.0); Alkaline Phosphatase 140 U/L (38-126); Anion Gap 19.9 mEq/L (5-15); Aspartate Amino Transferase 40 U/L (14-36); Bilirubin,Total 0.9 mg/dl (0.2-1.3); Blood Urea Nitrogen 46 mg/dl (7-17); Calcium 9.8 mg/dl (8.4-10.2); Carbon Dioxide 29 mmol/L (22.0-30.0); Creatinine Clearance Estimated 35 mL/min (50-200); Estimated Glomerular Filt Rate 24 ml/min (>60); GFR (African American) 29 ML/MIN (>60); Globulin 4.4 g/dL (1.3-3.2); Total Protein,Serum 8.7 g/dl (6.3-8.2)
[2019-12-01 22:32] LABS: Basophils % 1.1 % (0.1-2.0); Eosinophils % 0.8 % (0.1-12.0); Hemoglobin 17.1 g/dL (12.2-16.2); Lymphocytes # 6.2 K/mm3 (0.7-4.5); Lymphocytes % 46.3 % (10-50); Mean Corpuscular Hemoglobin 28.2 pg (27.0-31.2); Mean Corpuscular Volume 94.5 fl (81-99); Mean Platelet Volume 8.3 fl (7.4-10.4); Monocytes # 0.7 K/mm3 (0.1-1.0); Monocytes % 4.8 % (1.7-9.3); Neutrophils # 6.3 K/mm3 (1.8-7.8); Platelet Count 290 K/mm3 (142-424); Red Cell Distribution Width 13.7 % (11.5-17.5); White Blood Count 13.5 K/mm3 (4.8-10.8)
[2019-12-01 22:34] LABS: Glucose 629 mg/dl (74-100); Hematocrit 57.4 % (37.0-47.0)
[2019-12-01 22:36] LABS: NT Pro Brain Natriuretic Pep. 166 pg/mL (0-125)
[2019-12-01 22:45] LABS: Troponin I < 0.01 ng/ml (0.00-0.034)
[2019-12-01 23:00] LABS: Acetone, Serum (Rapid) None Detected (None Detect)
[2019-12-01 23:04] VITALS: BP 95/62; PULSE 57; RESP 16; O2SAT 88
[2019-12-01 23:05] VITALS: O2SAT 95
--- NOTE | 2019-12-01 23:31 | HMH.EDGENADL ---
ED Disposition Clinical Impression: Closed femur fracture Qualifiers: Encounter type: initial encounter Femur location: intertrochanteric Fracture alignment: displaced Laterality: right Qualified Code(s): S72.141A - Displaced intertrochanteric fracture of right femur, initial encounter for closed fracture Disposition: Xfer Short-Term Hosp Condition on Discharge: Good Instructions: DI for Syncope in Adults (Fainting), DI for Syncope in Children (Fainting) Referrals: Joshua Urban MD [Primary Care Provider] - - Critical Care Critical Care Time: No Attestation: On 12/01/19, the high probability of a clinically significant, sudden or life threatening deterioration of the following system(s) required my full and direct attention, intervention and personal management. The time I documented below is in addition to time spent performing reported procedures but includes the following listed in this critical care notation. Medical Decision Making - Medical Records Medical records reviewed: Yes: I reviewed the patient's medical records. - Jordin Inquiry Pt receiving controlled substance: No Vital Signs: 12/01/19 22:04 12/01/19 23:04 12/01/19 23:05 Pulse Rate [Left Radial] 68 57 L Respiratory Rate 16 16 Blood Pressure [Right Arm] 119/70 95/62 L Blood Pressure Mean [Right Arm] 86 73 Blood Pressure Source [Right Arm] Automatic Cuff Automatic Cuff Blood Pressure Position [Right Arm] Sitting Sitting 02 Sat by Pulse Oximetry 94 L 88 L 95 Oxygen Delivery Method Room Air Room Air Nasal Cannula Oxygen Flow Rate (LPM) 3 - Lab Data Lab Results 12/01/19 22:05: WBC 13.5 H, RBC 6.08 H, Hgb 17.1 H, Hct 57.4 H, MCV 94.5, MCH 28.2, MCHC 29.8 L, RDW 13.7, Plt Count 290, MPV 8.3, Neut % (Auto) 47.0, Lymph % (Auto) 46.3, [place] % (Auto) 4.8, Eos % (Auto) 0.8, Baso % (Auto) 1.1, Neut # (Auto) 6.3, Lymph # (Auto) 6.2 H, [place] # (Auto) 0.7, Eos # (Auto) 0.1, Baso # (Auto) 0.2 12/01/19 22:05: Sodium 133 L, Potassium 3.9, Chloride 88 L, Carbon Dioxide 29, Anion Gap 19.9 H, BUN 46 H, Creatinine 2.10 H, Estimated Creat Clear 35, Estimated GFR 24 L, Est GFR ( Amer) 29 L, Glucose 629 H*, Calcium 9.8, Total Bilirubin 0.9, AST 40 H, ALT 32, Alkaline Phosphatase 140 H, Troponin I < 0.01, Total Protein 8.7 H, Albumin 4.3, Globulin 4.4 H, Albumin/Globulin Ratio 1.0 L 12/01/19 22:05: NT-Pro-B Natriuret Pep 166 H 12/01/19 22:05: Acetone Level None detected 12/01/19 22:05: SARS-CoV-2 IgG Ab (Rapid) Negative, SARS-CoV-2 IgM Ab (Rapid) Negative Result diagrams: 12/01/19 22:05 12/01/19 22:05 Orders (Tests/Meds): ED MEDICATIONS Generic Name Dose Route Start Last Admin Trade Name Freq PRN Reason Stop Dose Admin Lactated Ringer's 1,000 mls @ 999 mls/hr 12/01/19 23:00 12/02/19 00:26 Lactated Ringer's 1000 Ml Bag IV 12/02/19 01:00 999 mls/hr .Q1H1M CHRISTOPHER Administration Methocarbamol 1,000 mg 12/02/19 22:14 Methocarbamol 500mg Tablet PO 12/02/19 22:15 ONCE ONE Morphine Sulfate 4 mg 12/01/19 22:14 12/01/19 22:55 Morphine 4mg/Ml Syringe IV 12/31/19 22:13 4 mg Q1HP PRN Administration Breakthru Moderate Pain Discontinued Medications Generic Name Dose Route Start Last Admin Trade Name Freq PRN Reason Stop Dose Admin Acetaminophen 1,000 mg 12/01/19 22:14 Acetaminophen 500mg Tab PO 12/01/19 22:15 ONCE ONE Acetaminophen 650 mg 12/01/19 23:37 Acetaminophen 325mg Tab PO 12/31/19 23:36 Q6HP PRN pain Fentanyl Citrate 50 mcg 12/01/19 22:34 12/01/19 23:41 Fentanyl 100mcg/2ml Vial IV 12/01/19 22:35 Not Given ONCE ONE Fentanyl Citrate 50 mcg 12/01/19 22:38 12/01/19 22:39 Fentanyl 250mcg/5ml Vial IV 12/01/19 22:39 50 mcg ONCE ONE Administration Fentanyl Citrate 50 mcg 12/01/19 23:57 12/01/19 23:59 Fentanyl 250mcg/5ml Vial IV 12/01/19 23:58 50 mcg ONCE ONE Administration Hydromorphone HCl 1 mg 12/02/19 00:08 12/02/19 00:25 Hydromorphone 2
[2019-12-01 23:44] LABS: Coronavirus 19 IgG Antibody Negative (Negative); Coronavirus 19 IgM Antibody Negative (Negative)
--- NOTE | 2019-12-01 23:51 | PC.NURSE ---
pt back from RAD
[2019-12-02] VITALS (9 sets, daily range): BP systolic 159–195; BP diastolic 85–104; PULSE 65–73; RESP 15–17; TEMP 36.6; O2SAT 92–96
--- NOTE | 2019-12-02 00:07 | PC.NURSE ---
spoke with Dr. Guadarrama who wants to transfer pt to [facility]
--- NOTE | 2019-12-02 00:17 | PC.NURSE ---
pt accepted to [facility] ER by Tuan Sorto RN
--- NOTE | 2019-12-02 00:20 | PC.NURSE ---
attempted to call pt daughter. no answer at this time
--- NOTE | 2019-12-02 00:26 | PC.NURSE ---
Josesito PARHAM and this nurse at bedside for med administration and application of traction splint. +2 pedal pulses, and circulation assessed after application of splint
--- NOTE | 2019-12-02 00:34 | PC.NURSE ---
spoke with pt daughter and updated her on transfer
--- NOTE | 2019-12-02 00:45 | XR_ITS ---
PROCEDURE: XR CHEST PORTABLE CLINICAL HISTORY: FALL Posttraumatic pain COMPARISON: CR XR CHEST PORTABLE from 02/15/2019 FINDINGS: The cardiomediastinal silhouette and pulmonary vascularity are within normal limits. Loop recorder device is present lying over the upper chest on the left. Chronic interstitial changes are present. Scarring noted in the right upper lobe in there are sutures in the right lung base. No acute bony abnormalities. IMPRESSION: No acute findings. Dictated by: Vu Arthur MD 12/02/2019 06:42 Vu Arthur MD in [facility] 12/02/2019 06:42
== END 2019-12-02 01:12 | disposition short-term general hospital (02) ==
PROVIDERS: Emergency Provider Emergency Medicine; PCP Emergency Medicine
DX: S72.141A Displaced intertrochanteric fracture of right femur, initial encounter for closed fracture (principal); W10.9XXA Fall (on) (from) unspecified stairs and steps, initial encounter; Y92.89 Other specified places as the place of occurrence of the external cause; E11.65 Type 2 diabetes mellitus with hyperglycemia; I50.9 Heart failure, unspecified; S00.83XA Contusion of other part of head, initial encounter; F41.8 Other specified anxiety disorders; I48.20 Chronic atrial fibrillation, unspecified; K21.9 Gastro-esophageal reflux disease without esophagitis; I10 Essential (primary) hypertension; E78.5 Hyperlipidemia, unspecified; Z87.891 Personal history of nicotine dependence; Z90.49 Acquired absence of other specified parts of digestive tract; Z90.710 Acquired absence of both cervix and uterus; Z79.899 Other long term (current) drug therapy; Z88.0 Allergy status to penicillin; Z88.2 Allergy status to sulfonamides; Z88.8 Allergy status to other drugs, medicaments and biological substances; Z79.4 Long term (current) use of insulin; Z01.84 Encounter for antibody response examination
CPT/HCPCS: 70450; 71045; 72125; 73700; 80053; 82009; 83880; 84484; 85025; 86328; 93005; 96365; 96366; 96372; 96375; 99285

== ENCOUNTER 2020-01-04 14:00 | Observation (INO) | payer MEDICARE, MEDICAID, SELFPAY ==
[2020-01-04 14:01] VITALS: BP 154/84; PULSE 71; RESP 16; TEMP 36.9; O2SAT 98; BMI 28.3
--- NOTE | 2020-01-04 14:17 | XR_ITS ---
PROCEDURE: XR KNEE RT 2V CLINICAL INDICATION: fall Posttraumatic pain COMPARISON: CR XR KNEE LT 3V from 10/23/2019 CR XR KNEE LT 4V from 11/05/[address] FEMUR RT WO CON from 12/01/2019 CR XR PELVIS 1-2V from 01/04/2020 FINDINGS: Mild osteoarthritic changes of the right knee involving all 3 compartments. Skin clips are present involving the distal femur laterally and the proximal tibial region medially and laterally. Chondrocalcinosis is present at the medial lateral compartment there is a small knee joint effusion suspected. There is an intramedullary madie present. Double gamma nails are noted in the right femoral neck with long intramedullary madie stabilizing a right subtrochanteric fracture with mild medial displacement of the distal fracture fragment by approximately 9 mm. There are osteoarthritic changes of both hips with an os acetabulum on the left posteriorly with heterotopic ossification involving the left greater trochanteric region. There is mild medial displacement of a right lesser trochanter fracture fragment. Surgical clips are present in the right hip region and in the lower pelvis area. No acute fracture or dislocation is evident. IMPRESSION: Status post ORIF right subtrochanteric fracture with long intramedullary madie and [address] as described above. Mild osteoarthritic changes of the right knee with chondrocalcinosis. Dictated by: Vu Arthur MD 01/04/2020 15:00 Vu Arthur MD in [facility] 01/04/2020 15:00
[2020-01-04 15:57] LABS: Basophils # 0.1 K/mm3 (0-0.2); Basophils % 1.1 % (0.1-2.0); Eosinophils # 0.7 K/mm3 (0.0-0.4); Eosinophils % 5.6 % (0.1-12.0); Hemoglobin 12.4 g/dL (12.2-16.2); Lymphocytes # 4.5 K/mm3 (0.7-4.5); Lymphocytes % 37.3 % (10-50); Mean Corpuscular HGB Conc 30.3 g/dL (31.8-35.4); Mean Corpuscular Hemoglobin 27.4 pg (27.0-31.2); Mean Corpuscular Volume 90.4 fl (81-99); Mean Platelet Volume 7.8 fl (7.4-10.4); Monocytes # 0.8 K/mm3 (0.1-1.0); Monocytes % 6.6 % (1.7-9.3); Neutrophils # 5.9 K/mm3 (1.8-7.8); Neutrophils % 49.4 % (37.0-80.0); Platelet Count 576 K/mm3 (142-424); Red Blood Count 4.53 M/mm3 (4.20-5.40); Red Cell Distribution Width 15.2 % (11.5-17.5)
--- NOTE | 2020-01-04 15:57 | HMH.EDGENADL ---
ED Disposition Clinical Impression: Failure to thrive Qualifiers: Failure to thrive age range: in adult Qualified Code(s): R62.7 - Adult failure to thrive Disposition: Admitted As Inpatient Condition on Discharge: Good Referrals: Joshua Urban MD [Primary Care Provider] - - Critical Care Critical Care Time: No Attestation: On 01/04/20, the high probability of a clinically significant, sudden or life threatening deterioration of the following system(s) required my full and direct attention, intervention and personal management. The time I documented below is in addition to time spent performing reported procedures but includes the following listed in this critical care notation. Medical Decision Making - Medical Records Medical records reviewed: Yes: I reviewed the patient's medical records. - Jordin Inquiry Pt receiving controlled substance: No Vital Signs: 01/04/20 14:01 Temperature 98.5 F Temperature Source Oral Pulse Rate [Radial] 71 Respiratory Rate 16 Blood Pressure [Right Arm] 154/84 H Blood Pressure Mean [Right Arm] 107 Blood Pressure Position [Right Arm] Sitting 02 Sat by Pulse Oximetry 98 Oxygen Delivery Method Room Air - Lab Data Lab Results 01/04/20 15:34: WBC 12.0 H, RBC 4.53, Hgb 12.4, Hct 41.0, MCV 90.4, MCH 27.4, MCHC 30.3 L, RDW 15.2, Plt Count 576 H, MPV 7.8, Neut % (Auto) 49.4, Lymph % (Auto) 37.3, [place] % (Auto) 6.6, Eos % (Auto) 5.6, Baso % (Auto) 1.1, Neut # (Auto) 5.9, Lymph # (Auto) 4.5, [place] # (Auto) 0.8, Eos # (Auto) 0.7 H, Baso # (Auto) 0.1 Result diagrams: 01/04/20 15:34 Orders (Tests/Meds): ED MEDICATIONS Generic Name Dose Route Start Last Admin Trade Name Freq PRN Reason Stop Dose Admin Apixaban 5 mg 01/04/20 21:00 Apixaban 5mg Tablet PO 02/03/20 20:59 BID CHRISTOPHER Atorvastatin Calcium 10 mg 01/04/20 16:00 Atorvastatin 10mg Tablet PO 02/03/20 15:59 DAILYP CHRISTOPHER Ergocalciferol unit 01/05/20 09:00 Ergocalciferol 50,000 Units (1.25mg) Capsule PO 02/04/20 08:59 DAILY CHRISTOPHER Furosemide 80 mg 01/04/20 21:00 Furosemide 80 Mg Tablet PO 02/03/20 20:59 BID CHRISTOPHER Isosorbide Mononitrate 30 mg 01/05/20 09:00 Isosorbide [place] 30mg Tab.Er.24h PO 02/04/20 08:59 DAILY CHRISTOPHER Metoprolol Succinate 50 mg 01/05/20 09:00 Metoprolol Succinate Xl 50mg Tablet PO 02/04/20 08:59 DAILY CHRISTOPHER Non-Formulary Medication 0.63 mg 01/04/20 16:00 Albuterol Sulfate [Albuterol Sulfate 0.63mg/3ml Neb] inhalation 02/03/20 15:59 Q6H CHRISTOPHER Non-Formulary Medication 15 mg 01/04/20 16:00 Buspirone Hcl [Buspirone 15 Mg Tablets] PO 02/03/20 15:59 TID-QID CHRISTOPHER Non-Formulary Medication 1 inh 01/04/20 16:00 Fluticasone/Umeclidin/Vilanter [Trelegy Ellipta 100-62.5-25] inhalation 02/03/20 15:59 Q24H CHRISTOPHER Non-Formulary Medication 1,000 mg 01/04/20 21:00 Metformin Hcl [Glucophage Xr] PO 02/03/20 20:59 BID CHRISTOPHER Non-Formulary Medication 200 mg 01/04/20 21:00 Quetiapine Fumarate PO 02/03/20 20:59 BID CHRISTOPHER Non-Formulary Medication 1 tab 01/04/20 21:00 Topiramate PO 02/03/20 20:59 TID CHRISTOPHER Non-Formulary Medication 1 spray 01/05/20 09:00 Fluticasone Propionate [Flonase Allergy Relief Ns] intranasal 02/04/20 08:59 DAILY CHRISTOPHER Ropinirole HCl 1 mg 01/04/20 21:00 Ropinirole 1mg Tablet PO 02/03/20 20:59 BID CHRISTOPHER Sertraline HCl 150 mg 01/05/20 09:00 Sertraline 100mg Tablet PO 02/04/20 08:59 DAILY CHRISTOPHER ORDERS Category Date Time Status CMP [Comprehensive Metabolic Panel] Stat Lab 01/04/20 15:34 Received Covid-19 IgG/IgM ([facility]) Stat Lab 01/04/20 15:34 Received Medical Decision Narrative: 59-year-old female who presents with social issues unable to care for herself after returning home from rehab. She is unable to perform daily activities of living and will need admission for placement. Due to a partial fall yesterday x-rays of the knee were perfo
[2020-01-04 16:05] LABS: Alanine Aminotransferase 54 U/L (12-78); Albumin Level 3.6 g/dl (3.5-5.0); Alkaline Phosphatase 231 U/L (38-126); Aspartate Amino Transferase 60 U/L (14-36); Bilirubin,Total 0.4 mg/dl (0.2-1.3); Blood Urea Nitrogen 18 mg/dl (7-17); Calcium 9.1 mg/dl (8.4-10.2); Carbon Dioxide 25 mmol/L (22.0-30.0); Chloride 107 mmol/L (98-107); Creatinine Clearance Estimated 83 mL/min (50-200); Estimated Glomerular Filt Rate 64 ml/min (>60); GFR (African American) 78 ML/MIN (>60); Globulin 3.7 g/dL (1.3-3.2); Glucose 158 mg/dl (74-100); Sodium 141 mmol/L (136-145); Total Protein,Serum 7.3 g/dl (6.3-8.2)
[2020-01-04 16:45] LABS: Coronavirus 19 IgG Antibody Negative (Negative); Coronavirus 19 IgM Antibody Negative (Negative)
[2020-01-04 16:50] VITALS: BP 138/88; PULSE 64; RESP 20; TEMP 36.5; O2SAT 98; BMI 28.8
[2020-01-04 16:58] VITALS: BP 173/94; PULSE 87; RESP 16; TEMP 36.9; O2SAT 98
[2020-01-04 18:00] VITALS: O2SAT 93
[2020-01-04 18:10] VITALS: PULSE 68; PULSE 69
[2020-01-04 18:22] LABS: POC Glucose,Bedside 135 (70-110)
--- NOTE | 2020-01-04 18:55 | PC.NURSE ---
PT AO*4 ON 3L NC TOLERATING WELL, BREATH SOUNDS DIMINISHED BILATERALLY, ABD SOFT ROUND AND NON-TENDER, NO NEEDS AT THIS TIME, WILL CONTINUE TO MONITOR.
[2020-01-04 20:00] VITALS: BP 174/88; PULSE 74; RESP 18; TEMP 36.8; O2SAT 99
[2020-01-04 23:04] LABS: POC Glucose,Bedside 220 (70-110)
[2020-01-05 04:00] VITALS: BP 133/86; PULSE 126; RESP 18; TEMP 36.5; O2SAT 99
[2020-01-05 05:05] VITALS: BMI 29.0
[2020-01-05 05:50] VITALS: PULSE 68; O2SAT 99
--- NOTE | 2020-01-05 06:09 | PC.NURSE ---
Pt is alert and oriented x4. Pt rested well with eyes closed this shift. C/o pain to right hip. Admin [place] x2 per mar. Upon reassessments pt noted resting with eyes closed with no further complaints. Tolerates ambulation well to and from BSC with staff assist. Had 2 loose bm thus far this shift. Adequate urine output. Tolerated 3 lnc well with no c/o SOA. Bilateral upper lobes noted with wheezes upon auscultation. Tolerating diet well. No edema noted. Refused teds. VSS. Remains safe. Call light within reach. Will continue to monitor.
[2020-01-05 07:11] LABS: Basophils # 0.1 K/mm3 (0-0.2); Basophils % 1.2 % (0.1-2.0); Eosinophils # 0.7 K/mm3 (0.0-0.4); Eosinophils % 5.9 % (0.1-12.0); Hematocrit 37.8 % (37.0-47.0); Hemoglobin 11.5 g/dL (12.2-16.2); Lymphocytes # 4.3 K/mm3 (0.7-4.5); Lymphocytes % 38.9 % (10-50); Mean Corpuscular HGB Conc 30.3 g/dL (31.8-35.4); Mean Corpuscular Hemoglobin 27.4 pg (27.0-31.2); Mean Corpuscular Volume 90.4 fl (81-99); Mean Platelet Volume 7.3 fl (7.4-10.4); Monocytes # 0.9 K/mm3 (0.1-1.0); Monocytes % 8.5 % (1.7-9.3); Neutrophils % 45.5 % (37.0-80.0); Platelet Count 534 K/mm3 (142-424); Red Blood Count 4.17 M/mm3 (4.20-5.40); Red Cell Distribution Width 15.2 % (11.5-17.5)
[2020-01-05 07:18] LABS: Chloride 105 mmol/L (98-107); Sodium 142 mmol/L (136-145)
[2020-01-05 07:21] LABS: Blood Urea Nitrogen 20 mg/dl (7-17); Carbon Dioxide 30 mmol/L (22.0-30.0); Creatinine Clearance Estimated 77 mL/min (50-200); Estimated Glomerular Filt Rate 57 ml/min (>60); GFR (African American) 69 ML/MIN (>60)
[2020-01-05 07:22] LABS: Calcium 8.8 mg/dl (8.4-10.2); Glucose 163 mg/dl (74-100)
[2020-01-05 08:00] VITALS: BP 109/63; PULSE 71; RESP 17; TEMP 36.7; O2SAT 94; O2SAT 97
--- NOTE | 2020-01-05 09:34 | HMH.HP ---
*Admission Date: 01/04/20 *Chief complaint: hip pain *History of present illness: this pt was treated at with rt hip orif [facility] to [facility] - she fell and was seen in the ed- -year-old female who was discharged from [facility] 2 days ago after a fall with proximal femur fracture and femoral nail surgery. Patient believes she could take care of her self at home and was supposed to have help from her sister however sister has been unable to help due to a trauma accident and other sources of help have been unable to assist. She has been home by herself unable to do activities of daily living including being found with urine and soiled herself. Unable to feed or ambulate. She believes that she can no longer care for herself and would like to be placed in a short-term facility for rehab. She was brought in by social work all source analyst. Has otherwise been well with no difficulty breathing, no chest pain, no fever, and no abdominal pain. She states that she almost fell yesterday landing on her right knee. pt was admitted with orders [facility] History I have reviewed the patient's past medical history: Yes Medical History: Reports:: Anxiety, Atrial Fibrillation, Cancer, Congestive Heart Failure, Chronic Obstructive Pulmonary Disease (COPD), Coronary Artery Disease, Depression, Diabetes Mellitus Type 2, Gastroesophageal Reflux Disease(GERD), Hyperlipidemia, Hypertension, Migraine, Peripheral Artery Disease, Renal Insufficiency Denies:: Diabetes Mellitus Type 1, Internal Pacemaker, MRSA, Seizures *Have you ever received a pneumonia vaccine?: Yes *Have you received a flu vaccine this season?: Yes Other Medical History: Reports: Cataracts, Glaucoma, Liver Disease, Other Laterality Cases: Right: Carpal Tunnel Release, Bilateral: Tonsillectomy Other Surgeries: Yes: Appendectomy, Cardiac Catheterization, Cholecystectomy, Colonoscopy, Diagnostic Lap, Hysterectomy-Total, Tubal Ligation, Other. No: Pacemaker Amputation: No Fractures: Yes (BACK) - *Social History Last grade of school completed: 11th or 12th Smoking Status: Former smoker Tobacco Type: cigarettes # Packs/Day (cigarettes): 2 #Yrs smoked (if former smoker): 30 Alcohol Intake: never Alcohol Intake Frequency:: other Substance Use Type: denies use *Occupational Status:: retired Housing: house Household Members: none *Travel in the last 8 weeks: None - Psychiatric History Pschychiatric History:: Reports:: Anxiety, Depression Family Hx:: Coronary Artery Disease, Diabetes, Hyperlipidemia, Hypertension Review of Systems - Review of Systems Review of systems:: pertinent systems reviewed and negative unless documented below - Constitutional Denies fever(s) - Eyes Denies discharge - ENT Denies sore throat - *Cardiovascular Denies chest pain at rest - *Respiratory Denies cough - *Gastrointestinal Denies abdominal pain - *Genitourinary Denies blood in urine - *Musculoskeletal Reports joint pain, Reports joint swelling, Reports limited joint movement, Denies back pain, Denies neck pain - Integumentary/Breasts Denies rash - *Neurologic Denies seizure-like activity, Denies dizziness, Denies tingling/numbness/burning sensations, Denies seizure-like activity - Psychiatric Denies anxiety Meds Home Medications Medication Instructions Recorded Confirmed Type Fluticasone Propionate [Flonase 1 spray NS DAILY 05/17/18 01/05/20 History Allergy Relief NS] Ipratropium/Albuterol Sulfate 3 ml IH QID 09/30/18 01/04/20 History [Duoneb 3mL neb] fluticasone fur. 100 mcg-umeclid 1 inh INHALATION Q24H #28 each 01/15/19 01/04/20 Rx 62.5 mcg-vilant 25 mcg inhalat.powder furosemide 80 mg tablet 80 mg PO BID #180 tab 07/26/19 01/04/20 Rx insulin NPH-regular 70-30 U-100 0 units SQ DIRECTED 08/16/19 01/05/20 History insulin 100 unit/mL subcutaneous pen Albuterol Sulfate [Albuterol 0.63 mg IH Q6H 09/10/19 01/05/20 History Sulfate 0
--- NOTE | 2020-01-05 11:18 | HMH.PHAVTE ---
[facility] Pharmacy VTE Monitoring - Patient Demographics Admission date: 01/04/20 Report Date: 01/05/20 Time: 11:18 Allergies/Adverse Reactions: Patient Allergies methocarbamol Allergy (Severe, Verified 12/01/19 23:17) Altered mental status terbutaline [TERBUTALINE] Allergy (Severe, Verified 12/01/19 23:17) SWELLS THROAT aspirin [ASPIRIN] Allergy (Intermediate, Verified 12/01/19 23:17) I-RASH codeine [CODEINE] Allergy (Intermediate, Verified 12/01/19 23:17) Swelling of the Eye diphenhydramine [From Benadryl] Allergy (Intermediate, Verified 12/01/19 23:17) Hives Sulfa (Sulfonamide Antibiotics) [SULFA (SULFONAMIDE ANTIBIOTICS)] Allergy (Intermediate, Verified 12/01/19 23:17) Hives sulfamethoxazole [From Bactrim] Allergy (Intermediate, Verified 12/01/19 23:17) Hives trimethoprim [From Bactrim] Allergy (Intermediate, Verified 12/01/19 23:17) Hives naproxen [NAPROXEN] Allergy (Mild, Verified 12/01/19 23:17) itching tramadol [TRAMADOL] Allergy (Mild, Verified 12/01/19 23:17) Vomiting citalopram [CITALOPRAM] Allergy (Unknown, Verified 12/01/19 23:17) SKIN PEEL erythromycin base [ERYTHROMYCIN BASE] Allergy (Unknown, Verified 12/01/19 23:17) I-RASH Penicillins [PENICILLINS] Allergy (Unknown, Verified 12/01/19 23:17) I-RASH bupropion [BUPROPION] Adverse Reaction (Severe, Verified 12/01/19 23:17) Hallucinating duloxetine [DULOXETINE] Adverse Reaction (Severe, Verified 12/01/19 23:17) Hallucinating pregabalin [PREGABALIN] Adverse Reaction (Severe, Verified 12/01/19 23:17) Hallucinating celecoxib [From CELEBREX] Adverse Reaction (Mild, Verified 12/01/19 23:17) Vomiting Height: 1.65 m Weight: 79.124 kg Patient Problems: Current Active Problems Failure to thrive (Acute) - VTE Risk Labs: VTE Related Lab Results Hgb 11.5 g/dL (12.2-16.2) L 01/05/20 06:29 Hct 37.8 % (37.0-47.0) 01/05/20 06:29 Plt Count 534 K/mm3 (142-424) H 01/05/20 06:29 BUN 20 mg/dl (7-17) H 01/05/20 06:29 Creatinine 1.00 mg/dl (0.52-1.04) 01/05/20 06:29 Estimated Creat Clear 77 mL/min (50-200) 01/05/20 06:29 Was VTE Risk Assessment Performed: Yes VTE Risk Level: Moderate Risk - Prophylaxis VTE Prophylaxis Ordered?: Yes Types of VTE Prophylaxis: TEDS Knee High, Pharmacological Location of Applied Device: Bilateral Lower Extremeties Pharmacologic Type: Other (ELIQUIS)
[2020-01-05 11:20] LABS: POC Glucose,Bedside 195 (70-110)
[2020-01-05 11:20] LABS: POC Glucose,Bedside 171 (70-110)
--- NOTE | 2020-01-05 15:08 | HMH.PHAINT ---
MEDICATION RECONCILIATION COMPLETED ON PATIENT USING EXTERNAL FILL HISTORY FROM PHARMACY AND LIST FROM MD OFFICE. -RUEL BLACKMAND
[2020-01-05 16:00] VITALS: BP 121/59; PULSE 86; RESP 18; TEMP 36.8; O2SAT 97
--- NOTE | 2020-01-05 16:09 | PC.NURSE ---
SHE IS AO*4 BUT HAS BEEN VERY TIRED TODAY, SHE HAS TAKEN MULTIPLE NAPS T/O SHIFT, 3L NC FOR O2 SUPPORT, LUNG SOUNDS DIMINISHED BILATERALLY, NO C/O SOA NOTED, PT DENIES ABD PAIN AND N/V, SHE HAS TOLERATED STAND AND PIVOT WITH ASSIST *1 TO USE BSC, URINE OUTPUT ADEQUATE. SHE HAS C/O PAIN TO HER RIGHT HIP, MEDICATED WITH PRN NORCO *1 PER MAR WITH GOOD EFFECTIVENESS, NO COMPLAINTS AT THIS TIME,
[2020-01-05 19:55] VITALS: BP 118/67; PULSE 70; RESP 12; TEMP 36.9; O2SAT 97
[2020-01-05 20:03] VITALS: PULSE 78; PULSE 81
[2020-01-05 20:49] LABS: POC Glucose,Bedside 139 (70-110)
[2020-01-06] VITALS (11 sets, daily range): BP systolic 108–126; BP diastolic 62–69; PULSE 64–80; RESP 18–20; TEMP 36.6–36.8; O2SAT 92–99; BMI 28.7
--- NOTE | 2020-01-06 03:56 | PC.NURSE ---
Pt is alert and oriented x4. Pt rested well with eyes closed this shift. No acute changes noted from previous shift. Tolerated 3 lnc O2 well, no c/o SOA. Bilateral lungs noted with scattered wheezing t/o upon auscultation. Pt ambulates well to and from BSC positioned by bed independently. Adequate urine output noted. No BM noted thus far this shift. Pt reports multiple loose stools on previous shift. Administered pain med x2 per MAR. Upon reassessment pt states adequate pain relief. Changed dsg x2 to RLE. Annia noted c/d/i x2. Pt noted with hard nodule to right hip that is tender to the touch. VSS. Remains safe. Call light within reach. Will continue to monitor.
--- NOTE | 2020-01-06 05:00 | PC.NURSE ---
Placed in contact enteric precautions for pending stool specimen results.
[2020-01-06 05:34] LABS: POC Glucose,Bedside 295 (70-110)
[2020-01-06 06:14] LABS: Adenovirus F 40/41, stool Not Detected (NotDetected); Astrovirus Not Detected (NotDetected); Campylobacter Not Detected (NotDetected); Cryptosporidium Not Detected (NotDetected); Cyclospora Cayetanesis Not Detected (NotDetected); Entamoeba histolytica Not Detected (NotDetected); Enteroaggregative E coli Not Detected (NotDetected); Enteropathogenic E coli Not Detected (NotDetected); Enterotoxigenic E coli Not Detected (NotDetected); Giardia lamblia Not Detected (NotDetected); Norovirus Not Detected (NotDetected); Plesimonas Shigalloides, PCR Not Detected (NotDetected); Rotavirus A Not Detected (NotDetected); Salmonella, PCR Not Detected (NotDetected); Sapovirus Not Detected (NotDetected); Shiga-like toxin E coli Not Detected (NotDetected); Shigella Enterovasive E coli Not Detected (NotDetected); Vibrio Cholerae Not Detected (NotDetected); Vibrio, PCR Not Detected (NotDetected); Yersinia Entercolitica, PCR Not Detected (NotDetected)
--- NOTE | 2020-01-06 08:44 | PC.NURSE ---
rounded with Dr. Urban. He ordered to add in house lab for cdiff antibody to stool specimen that was collected this AM. Called lab (Sharla), who reports that [facility] does not currently have any in house stool labs, that all stool labs are send outs. Verbalized understanding and updated primary RN, Cornell. Dr. Urban also wants pt OOB today. He will order PT/OT eval tomorrow.
--- NOTE | 2020-01-06 09:02 | HMH.ACPN2 ---
Internal Medicine - PN: Subj *Date: 01/07/20 *Time: 07:48 Interval history: doing better - has ongoing pain - diarrhea panel pending Exam Vital signs and Labs for Last 24 Hours: Temp Pulse Resp BP Pulse Ox 98.3 F 73 18 126/69 94 L 01/06/20 08:00 01/06/20 08:00 01/06/20 08:00 01/06/20 08:00 01/06/20 08:00 Laboratory Results - last 24 hr 01/05/20 05:42: POC Glucose 171 H 01/05/20 11:00: POC Glucose 195 H 01/05/20 20:22: POC Glucose 139 H 01/06/20 05:23: POC Glucose 295 H I & O for Last 24 hours: Intake & Output 01/03/20 01/04/20 01/05/20 01/06/20 11:59 11:59 11:59 11:59 Intake Total 730 / 730 490 / 490 Output Total 2250 / 2250 3050 / 3050 Balance -1520 / -1520 -2560 / -2560 Weight 174 lb 7 oz 172 lb 6 oz - Constitutional no acute distress - *Routine HEENT Exam Head: Present: normocephalic Eye: Present: EOMI, PERRL ENT: Present: mucous membranes dry - *Routine Neck Exam Present: supple - *Routine Respiratory Exam Present: decreased breath sounds - *Routine Cardiovascular Exam Present: RRR, murmur - *Routine Abdominal Exam Present: soft - *Routine Extremities Exam Absent: calf tenderness Comments: surg with shila - *Routine Skin Exam Present: intact - *Routine Neurological Exam Present: alert, CN II-XII intact - Routine Psychiatric Exam Present: normal affect Assessment and Plan (1) Hip fracture Status: Acute Qualifiers: Encounter type: subsequent encounter Fracture type: closed Laterality: right Fracture healing: with routine healing Qualified Code(s): S72.001D - Fracture of unspecified part of neck of right femur, subsequent encounter for closed fracture with routine healing Category: Medical Code(s): S72.009A - Fracture of unspecified part of neck of unspecified femur, initial encounter for closed fracture (2) Overweight (BMI 25.0-29.9) Status: Acute Category: Medical Code(s): E66.3 - Overweight (3) Type 2 diabetes mellitus with hyperglycemia Status: Chronic Qualifiers: Diabetes mellitus care home insulin use: unspecified intermediate designer insulin use status Qualified Code(s): E11.65 - Type 2 diabetes mellitus with hyperglycemia Category: Medical Code(s): E11.65 - Type 2 diabetes mellitus with hyperglycemia (4) Diabetic peripheral neuropathy associated with type 2 diabetes mellitus Status: Chronic Category: Medical Code(s): E11.42 - Type 2 diabetes mellitus with diabetic polyneuropathy (5) COPD (chronic obstructive pulmonary disease) Status: Chronic Qualifiers: COPD type: emphysema Emphysema type: unspecified Qualified Code(s): J43.9 - Emphysema, unspecified Category: Medical Code(s): J44.9 - Chronic obstructive pulmonary disease, unspecified (6) Endothelial dysfunction of coronary artery Status: Chronic Category: Medical Code(s): I99.8 - Other disorder of circulatory system (7) ANNIE on CPAP Status: Chronic Category: Medical Code(s): G47.33 - Obstructive sleep apnea (adult) (pediatric); Z99.89 - Dependence on other enabling machines and devices (8) PAD (peripheral artery disease) Status: Chronic Category: Medical Code(s): I73.9 - Peripheral vascular disease, unspecified
--- NOTE | 2020-01-06 09:18 | PC.NURSE ---
PT UP TO CHAIR AT THIS TIME, TOLERATED AMBULATION WELL WITH WALKER FOR ASSISTANCE WITH STAFF AT STANDBY, DENIES SOA, BATH AND BED CHANGE THIS AM.
[2020-01-06 11:14] LABS: POC Glucose,Bedside 198 (70-110)
[2020-01-06 11:14] LABS: POC Glucose,Bedside 238 (70-110)
--- NOTE | 2020-01-06 11:38 | PC.NURSE ---
PT STATES THAT THE MORPHINE WAS VERY EFFECTIVE IN MANAGING HER PAIN. SHE IS STILL UP TO CHAIR, TOLERATING WELL, NO NEEDS A THIS TIME.
--- NOTE | 2020-01-06 17:33 | PC.NURSE ---
SHE HAS BEEN UP TO CHAIR T/O SHIFT, HAS C/O OF PAIN AND WAS MEDICATED WITH PRN MORPHINE *2, SHE STATES THAT THE MORPHINE HELPS HER PAIN BUT THAT IT DOES NOT LAST LING ENOUGH, SHE STATES THAT SHE IS COMFORTABLE, SHE STILL REQUIRES 3LNC, VSS WILL CONTINUE TO MONITOR.
[2020-01-06 20:47] LABS: POC Glucose,Bedside 270 (70-110)
[2020-01-06 23:33] LABS: POC Glucose,Bedside 140 (70-110)
[2020-01-07] VITALS (8 sets, daily range): BP systolic 109–113; BP diastolic 55–75; PULSE 65–84; RESP 16–19; TEMP 36.5–36.8; O2SAT 93–98; BMI 28.3
--- NOTE | 2020-01-07 04:43 | PC.NURSE ---
Pt is alert and oriented x4. Pt rested intermittently t/o shift. No acute changes noted from previous shift. Pt c/o persistent pain to right hip. Rating 10/10 on pain scale. Pt states to this RN that she no longer wants to take the Morphine for her pain, as the effects for relief are short lived. She prefers to have the [place] back Q4H like she was receiving last evening shift. Pt agreed to take Morphine after MD warehouse operations manager gave no new orders after contact for pain meds. Tolerated 3lnc well with no SOA. Ambulates independently to and from [facility] by bed in room. 1 soft stool noted this shift. Stool results pending, remains in contact enteric precautions. Adequate urine output noted. Tolerated diet well. VSS. Remains safe. Call light within reach. Will continue to monitor.
[2020-01-07 05:45] LABS: POC Glucose,Bedside 294 (70-110)
--- NOTE | 2020-01-07 09:15 | HMH.ACPN2 ---
Internal Medicine - PN: Subj *Date: 01/07/20 *Time: 08:00 Interval history: pt laying in bed states she would like to go to rehab for a couple weeks when discussed the conditions that pt would have to give detention her check she declined due to them taking her money and her losing her apartment. will have pt/ot eval pt Exam Vital signs and Labs for Last 24 Hours: Temp Pulse Resp BP Pulse Ox 98.0 F 75 18 111/55 L 93 L 01/07/20 03:41 01/07/20 05:45 01/07/20 03:41 01/07/20 03:41 01/07/20 05:45 Laboratory Results - last 24 hr 01/05/20 16:39: POC Glucose 238 H 01/06/20 10:58: POC Glucose 198 H 01/06/20 17:03: POC Glucose 270 H 01/06/20 23:14: POC Glucose 140 H 01/07/20 05:19: POC Glucose 294 H I & O for Last 24 hours: Intake & Output 01/04/20 01/05/20 01/06/20 01/07/20 11:59 11:59 11:59 11:59 Intake Total 730 / 730 490 / 490 850 / 850 Output Total 2250 / 2250 3050 / 3050 1900 / 1900 Balance -1520 / -1520 -2560 / -2560 -1050 / -1050 Weight 174 lb 7 oz 172 lb 6 oz 169 lb 12.095 oz - Constitutional no acute distress, chronically ill appearing - *Routine HEENT Exam Head: Present: normocephalic Eye: Present: PERRL ENT: Present: mucous membranes moist - *Routine Neck Exam Present: supple. Absent: lymphadenopathy - *Routine Respiratory Exam Present: CTA bilaterally - *Routine Cardiovascular Exam Present: RRR - *Routine Abdominal Exam Present: soft, normoactive bowel sounds. Absent: tenderness - *Routine Extremities Exam Absent: cyanosis, clubbing, edema - *Routine Skin Exam Present: warm. Absent: rash Comments: shila in rt hip,and leg shila clean incision well approximated, no redness and no drainage - *Routine Neurological Exam Present: alert, oriented X3 - Routine Psychiatric Exam Present: normal affect Assessment and Plan (1) Hip fracture Status: Acute Qualifiers: Encounter type: subsequent encounter Fracture type: closed Laterality: right Fracture healing: with routine healing Qualified Code(s): S72.001D - Fracture of unspecified part of neck of right femur, subsequent encounter for closed fracture with routine healing Category: Medical Code(s): S72.009A - Fracture of unspecified part of neck of unspecified femur, initial encounter for closed fracture (2) Overweight (BMI 25.0-29.9) Status: Acute Category: Medical Code(s): E66.3 - Overweight (3) Type 2 diabetes mellitus with hyperglycemia Status: Chronic Qualifiers: Diabetes mellitus terminologist insulin use: unspecified mcc insulin use status Qualified Code(s): E11.65 - Type 2 diabetes mellitus with hyperglycemia Category: Medical Code(s): E11.65 - Type 2 diabetes mellitus with hyperglycemia (4) Diabetic peripheral neuropathy associated with type 2 diabetes mellitus Status: Chronic Category: Medical Code(s): E11.42 - Type 2 diabetes mellitus with diabetic polyneuropathy (5) COPD (chronic obstructive pulmonary disease) Status: Chronic Qualifiers: COPD type: emphysema Emphysema type: unspecified Qualified Code(s): J43.9 - Emphysema, unspecified Category: Medical Code(s): J44.9 - Chronic obstructive pulmonary disease, unspecified (6) Endothelial dysfunction of coronary artery Status: Chronic Category: Medical Code(s): I99.8 - Other disorder of circulatory system (7) ANNIE on CPAP Status: Chronic Category: Medical Code(s): G47.33 - Obstructive sleep apnea (adult) (pediatric); Z99.89 - Dependence on other enabling machines and devices (8) PAD (peripheral artery disease) Status: Chronic Category: Medical Code(s): I73.9 - Peripheral vascular disease, unspecified - Assessment and plan all Dx Assessment and Plan for all problems:: rounded with dr ribeiro all orders per dr ribeiro remove shila pt/ot eval
--- NOTE | 2020-01-07 11:16 | SW/DCPLANNER ---
RECEIVED REFERRAL FOR THIS PATIENT FOR PLACEMENT: PATIENT WAS RECENTLY DISCHARGED FROM [place] FOR SKILLED REHAB SERVICES AND ASKED TO BE DISCHARGED EARLY STATING SHE FELT SHE WAS READY TO DISCHARGE TO HOME...SHE WAS UNDER THE IMPRESSION SHE WAS GOING TO HAVE HELP AT HOME, SISTER WAS INVOLVED IN AN ACCIDENT AND OTHER FAMILY MEMBERS WITH COVID. SHE DISCHARGED TO HOME AND HOME HEALTH WASN'T EVEN ABLE TO COME AND SEE HER AND WHEN THEY CALLED SHE STATED SHE WAS A MESS AND COULDN'T CARE FOR HERSELF, SHE CALLED ME AND I TOLD HER TO CALL 911 AND COME TO THE HOSPITAL. I SPOKE WITH HER ABOUT PLACEMENT AND TOLD HER HOW DIFFICULT IT IS TO GET [facility] TO GET BACK WITH US AND A LOT OF FACILITIES ARE NOT IN NETWORK.. I EXPLAINED TO HER THAT SHE COULD GO UNDER HER MEDICAID BUT SHE WOULD HAVE TO STAY FOR 30 DAYS AND HER CHECK WOULD GO TOWARD HER LIABILITY.SHE STATED SHE CAN NOT GO ANYWHERE FOR 30 DAYS AND CAN NOT AFFORD TO GIVE UP HER CHECK..I HAVE LEFT A MESSAGE WITH MAK TO SEE IF THEY WILL TAKE HER AGAIN.....I HAVE ALSO ASKED IF SHE IS A CANDIDATE FOR WAIVER SERVICES...WE HAD PHYSICAL THERAPY TO SEE HER TODAY AND HE STATED SHE DID WELL AND WAS INDEPENDENT..THE PLAN IS FOR HER TO DISCHARGE ON TUESDAY PENDING PATIENT HAS NO SETBACKS...
--- NOTE | 2020-01-07 11:26 | HMH.PTEV ---
Physical Therapy Evaluation Rehab PT IP Evaluation Start: 01/07/20 09:20 Freq: ONCE Status: Active Protocol: Document 01/07/20 11:23 HAZEL (Rec: 01/07/20 11:25 PWSTAR [id number]) Subjective/History History History This is the initial IP PT evaluation for Kassy Bartlett. Pt is a 59 y/o femle admitted to [facility] thru ER after fall at home and pt feeling she could not care for herself anymore Subjective Subjective Pt reports she is unsure of her wbing status on sx fixed ORIF in R femur Rehab PT IP Eval Objective Appearance Patient Behavior Cooperative,Anxious Patient Orientation Person,Place,Time Difficulty following instructions none Speech Pattern Appropriate Ambulation Patient Able to Ambulate Yes Ambulation Observation IP General Gait Pattern Observation Antalgic Gait Ambulation Distance (feet) 100 Ambulation Assistive Device Large Base Quad Cane Ambulation Ability Supervision/Stand by Balance Ability to Arise Able, uses arms to help Sitting Balance Steady, safe Standing Balance Narrow stance w/o support Dynamic Sitting Balance Ability Good Dynamic Standing Balance Ability Fair Transfers Bed Transfer Ability Independent Chair Transfer Ability Independent Sit to Stand Bed Transfer Ability Independent Sit to Stand Chair Transfer Ability Independent Rehab PT IP prob,goals,plan Problems Date of Evaluation: 01/07/20 Rehab Potential Rehab Potential Innapropriate for Skilled Therapy Discharge Plan PT Discharge Plan Pt to ar home w/ HHPT and assistance once medically stable G -code Required No Eval Complexity Eval Charge Codes 69519 - Low Complexity PHYSICIAN CERTIFICATION: I certify the specified therapy services for Kassy Bartlett are required, authorized, and reviewed every 30 days.
[2020-01-07 11:27] LABS: POC Glucose,Bedside 196 (70-110)
--- NOTE | 2020-01-07 11:27 | HMH.OTEV ---
OT Inpatient Evaluation Rehab OT IP Evaluation Start: 01/07/20 09:20 Freq: ONCE Status: Complete Protocol: Document 01/07/20 11:16 GINOOCTAVIO (Rec: 01/07/20 11:27 GINOOCTAVIO [id number]) Rehab OT IP Assessment Subjective History 59 year old female who was recently treated at for right hip ORIP and then at [facility] for rehab then d /c home. Patient then fell at home after 2 days. x-completed with no further fractures. Patient refuses to be d/c to [facility] 2* losing disability check. Patient verbalize to return home with possible HH services . OT OP services not appropriate at this time 2* patient completing tasks independently. Recommend OT HH services if returning home for safety. Subjective I'm going home tomorrow. Objective Patient Orientation Person,Place,Time,Name,Age, Birthday,Time of Day Upper Extremity Gross ROM WNL Assist Level Independent Transfer Training Sit/Stand Transfer,Sit/Stand/ Step Transfer,Sit/Stand/Pivot Transfer Assist Level Independent Lower Body Dressing Ability Independent Rehab OT IP prob,goals,plan Problems Date of Evaluation: 01/07/20 OT IP Problems Transfers,Balance,Self care, Safety Rehab Potential Rehab Potential Innapropriate for Skilled Therapy Equipment Needs Assistive Devices Standard Walker Discharge Plan OT Discharge Plan Patient verabalize to return home tomorrow. Patient refuses to be d/c to SNF. Patient completed ADLs, transfers and ambulation independent at this time. Recommend for OT HH services for safety reasons. Eval Complexity Eval Charge Codes 32150 - Low Complexity G Codes G -code Required No PHYSICIAN CERTIFICATION: I certify the specified therapy services for Kassy Bartlett are required, authorized, and reviewed every 30 days.
--- NOTE | 2020-01-07 15:14 | PC.NURSE ---
PT IS SITTING UP IN THE CHAIR. PT STATED SHE WAS VERY WORRIED ABOUT HAVING TO GO TO A LONGTERM FOR REHAB B/C SHE IS UNABLE TO GIVE UP HER CHECK. PT DID NOT WANT TO TAKE MORPHINE FOR PAIN TODAY AND REQUESTED FOR HER PAIN MEDICATION TO BE SWITCHED BACK TO NORCO. PT STATES I DO NOT LIKE THE WAY THE MORPHINE MAKES ME FEEL. LUNG SOUNDS HAVE SCATTERED WHEEZES. O2 SATURATION 91-94% ON 3 L NC. FANTA WERE REMOVED FROM SURGICAL INCISIONS THIS SHIFT. ABDOMEN SOFT/NON TENDER WITH ACTIVE BOWEL SOUNDS. VOIDING WELL. PT HAS HAD A MODERATE/SOFT BOWEL MOVEMENT. WILL CONTINUE TO MONITOR.
[2020-01-07 16:39] LABS: POC Glucose,Bedside 284 (70-110)
[2020-01-07 21:08] LABS: POC Glucose,Bedside 114 (70-110)
[2020-01-08 00:50] VITALS: PULSE 71
[2020-01-08 04:00] VITALS: BP 95/58; PULSE 82; RESP 20; TEMP 36.6; O2SAT 97
--- NOTE | 2020-01-08 04:04 | PC.NURSE ---
Pt has rested well this shift. Pt is A&Ox4. Pt has c/o rt hip pain radiating down to rt foot x2 this shift and has been medicated per APR. Pt has had x1 moderate BM this shift that was soft in consistency and jb-colored. Pt continues to be on 3 L NC and has expiratory wheezing noted t/o all lung bases. 20g PIV in LFA remains patent and SL. No other acute changes or complaints at this time. Will continue to monitor.
[2020-01-08 04:59] VITALS: BMI 27.8
[2020-01-08 05:47] LABS: POC Glucose,Bedside 248 (70-110)
[2020-01-08 06:16] VITALS: PULSE 73; PULSE 76; O2SAT 98
[2020-01-08 07:29] LABS: Basophils # 0.1 K/mm3 (0-0.2); Eosinophils # 0.7 K/mm3 (0.0-0.4); Eosinophils % 5.5 % (0.1-12.0); Hematocrit 39.8 % (37.0-47.0); Hemoglobin 11.7 g/dL (12.2-16.2); Lymphocytes # 4.6 K/mm3 (0.7-4.5); Lymphocytes % 39.2 % (10-50); Mean Corpuscular HGB Conc 29.4 g/dL (31.8-35.4); Mean Corpuscular Hemoglobin 26.8 pg (27.0-31.2); Mean Corpuscular Volume 91.2 fl (81-99); Mean Platelet Volume 6.9 fl (7.4-10.4); Monocytes # 0.7 K/mm3 (0.1-1.0); Monocytes % 5.9 % (1.7-9.3); Neutrophils # 5.7 K/mm3 (1.8-7.8); Neutrophils % 48.4 % (37.0-80.0); Platelet Count 576 K/mm3 (142-424); Red Blood Count 4.36 M/mm3 (4.20-5.40); White Blood Count 11.8 K/mm3 (4.8-10.8)
[2020-01-08 07:31] LABS: Chloride 96 mmol/L (98-107); Sodium 137 mmol/L (136-145)
[2020-01-08 07:32] LABS: Potassium 3.6 mmoL/L (3.5-5.1)
[2020-01-08 07:34] LABS: Blood Urea Nitrogen 44 mg/dl (7-17); Creatinine Clearance Estimated 49 mL/min (50-200); Estimated Glomerular Filt Rate 36 ml/min (>60); GFR (African American) 43 ML/MIN (>60)
[2020-01-08 07:35] LABS: Anion Gap 14.6 mEq/L (5-15); Calcium 8.5 mg/dl (8.4-10.2); Carbon Dioxide 30 mmol/L (22.0-30.0); Glucose 231 mg/dl (74-100)
[2020-01-08 08:00] VITALS: BP 113/62; PULSE 77; RESP 18; TEMP 36.6; O2SAT 98
--- NOTE | 2020-01-08 08:16 | HMH.DCSUM ---
General - General Admission date:: 01/04/20 Discharge date: 01/08/20 HPI HPI: this pt was treated at with rt hip orif and then at [facility] and released to home - she fell and was seen in the ed- -year-old female who was discharged from [facility] 2 days ago after a fall with proximal femur fracture and femoral nail surgery. Patient believes she could take care of her self at home and was supposed to have help from her sister however sister has been unable to help due to a trauma accident and other sources of help have been unable to assist. She has been home by herself unable to do activities of daily living including being found with urine and soiled herself. Unable to feed or ambulate. She believes that she can no longer care for herself and would like to be placed in a short-term facility for rehab. She was brought in by social work nuclear medicine medical director. Has otherwise been well with no difficulty breathing, no chest pain, no fever, and no abdominal pain. She states that she almost fell yesterday landing on her right knee. pt was admitted with orders Hospital Course Hospital Course: this pt was treated at with rt hip orif and then at [facility] and released to home - she fell and was seen in the ed- -year-old female who was discharged from [facility] 2 days ago after a fall with proximal femur fracture and femoral nail surgery. Patient believes she could take care of her self at home and was supposed to have help from her sister however sister has been unable to help due to a trauma accident and other sources of help have been unable to assist. She has been home by herself unable to do activities of daily living including being found with urine and soiled herself. Unable to feed or ambulate. She believes that she can no longer care for herself and would like to be placed in a short-term facility for rehab. She was brought in by social work nuclear medicine medical director. Has otherwise been well with no difficulty breathing, no chest pain, no fever, and no abdominal pain. She states that she almost fell yesterday landing on her right knee. pt was admitted with orders Long discussion with patient regarding rehab facility placement for continuing treatment. Patient reports that if she goes to rehab facility she will lose her check and will be at unable to make her apartment payment and will be evicted. Patient originally had various family/friends who volunteered to help her and due to difficulties on each once part no one has been able to help her, she says she does have some one that will help her when she goes home now and she will be discharged with home health care Medications explained to her and she verbalizes understanding and will call office for any concerns/needs Incisions to right hip and right knee well-healed well approximated, shila have been removed and incisions look good. Pelvis XR 01/04/20: FINDINGS: Mild osteoarthritic changes of the right knee involving all 3 compartments. Skin clips are present involving the distal femur laterally and the proximal tibial region medially and laterally. Chondrocalcinosis is present at the medial lateral compartment there is a small knee joint effusion suspected. There is an intramedullary madie present. Double gamma nails are noted in the right femoral neck with long intramedullary madie stabilizing a right subtrochanteric fracture with mild medial displacement of the distal fracture fragment by approximately 9 mm. There are osteoarthritic changes of both hips with an os acetabulum on the left posteriorly with heterotopic ossification involving the left greater trochanteric region. There is mild medial displacement of a right lesser trochanter fracture fragment. Surgical clips are present in the right hip region and in the lower pelvis area. No acute fracture or dislocation is evident. IMPRESSION: Status post ORIF right subtrochanteric fracture with long intramedu
[2020-01-08 09:25] LABS: POC Glucose,Bedside 251 (70-110)
--- NOTE | 2020-01-08 10:30 | SW/DCPLANNER ---
Addendum entered by Sharla Somers 01/08/20 11:20: Zohaib from [facility] has stated that patient information has been received/reviewed and patient will be added to schedule for services to begin tomorrow. Original Note: This patient is currently medically stable for discharge today. Patient has chose to discharge home with home health services. Patient information and order for home health has been faxed to [facility]. I will follow up with [facility] once patient information/order is reviewed. Patient stated that she has no other needs at home at this time. Patient also stated that she will have transportation home once she is medically stable for discharge.
[2020-01-09 20:22] LABS: Clostridium Difficile A/B, PCR Detected (NotDetected)
== END 2020-01-08 12:10 | disposition home health service (06) ==
LOC: ER 16:09 → 2ND 19:21
PROVIDERS: Internal Medicine Adolescent Medicine; Nurse Practitioner Family; Admitting Provider Emergency Medicine; Emergency Provider Student in an Organized Health Care Education/Training Program; PCP Emergency Medicine; Visit Provider Emergency Medicine
DX: R62.7 Adult failure to thrive (principal); Z74.2 Need for assistance at home and no other household member able to render care; S72.141D Displaced intertrochanteric fracture of right femur, subsequent encounter for closed fracture with routine healing; E11.65 Type 2 diabetes mellitus with hyperglycemia; E11.42 Type 2 diabetes mellitus with diabetic polyneuropathy; Z79.4 Long term (current) use of insulin; I48.20 Chronic atrial fibrillation, unspecified; K21.9 Gastro-esophageal reflux disease without esophagitis; I11.0 Hypertensive heart disease with heart failure; I50.9 Heart failure, unspecified; J44.9 Chronic obstructive pulmonary disease, unspecified; I70.203 Unspecified atherosclerosis of native arteries of extremities, bilateral legs; Z87.891 Personal history of nicotine dependence; Z90.49 Acquired absence of other specified parts of digestive tract; Z90.711 Acquired absence of uterus with remaining cervical stump; I25.10 Atherosclerotic heart disease of native coronary artery without angina pectoris; G47.33 Obstructive sleep apnea (adult) (pediatric); Z79.51 Long term (current) use of inhaled steroids; Z79.891 Long term (current) use of opiate analgesic; Z79.899 Other long term (current) drug therapy; Z88.0 Allergy status to penicillin; Z88.1 Allergy status to other antibiotic agents; Z88.2 Allergy status to sulfonamides; Z88.5 Allergy status to narcotic agent; Z88.8 Allergy status to other drugs, medicaments and biological substances; Z91.81 History of falling
CPT/HCPCS: 72170; 73560; 80048; 80053; 82962; 85025; 86328; 87506; 94640; 94760; 94761; 97161; 97165; 99283; G0378

== ENCOUNTER → 2020-07-30 13:03 | Outpatient (CLI) | payer MEDICARE, MEDICAID, SELFPAY ==
[2020-07-30 14:26] LABS: Basophils # 0.1 K/mm3 (0-0.2); Eosinophils # 0.3 K/mm3 (0.0-0.4); Eosinophils % 2.5 % (0.1-12.0); Hematocrit 46.9 % (37.0-47.0); Hemoglobin 15.3 g/dL (12.2-16.2); Lymphocytes # 5.1 K/mm3 (0.7-4.5); Mean Corpuscular HGB Conc 32.6 g/dL (31.8-35.4); Mean Corpuscular Hemoglobin 28.2 pg (27.0-31.2); Mean Corpuscular Volume 86.4 fl (81-99); Mean Platelet Volume 7.8 fl (7.4-10.4); Monocytes # 0.9 K/mm3 (0.1-1.0); Monocytes % 7.6 % (1.7-9.3); Neutrophils # 5.2 K/mm3 (1.8-7.8); Neutrophils % 44.9 % (37.0-80.0); Platelet Count 295 K/mm3 (142-424); Red Blood Count 5.42 M/mm3 (4.20-5.40); White Blood Count 11.6 K/mm3 (4.8-10.8)
[2020-07-30 14:51] LABS: Chloride 91 mmol/L (98-107)
[2020-07-30 14:52] LABS: Potassium 5.2 mmoL/L (3.5-5.1); Sodium 131 mmol/L (136-145)
[2020-07-30 14:54] LABS: Alanine Aminotransferase 65 U/L (12-78); Alkaline Phosphatase 128 U/L (38-126); Aspartate Amino Transferase 76 U/L (14-36); Bilirubin,Total 0.7 mg/dl (0.2-1.3); Blood Urea Nitrogen 24 mg/dl (7-17); Estimated Glomerular Filt Rate 57 ml/min (>60); GFR (African American) 69 ML/MIN (>60)
[2020-07-30 14:55] LABS: Albumin Level 4.4 g/dl (3.5-5.0); Albumin/Globulin Ratio 1.2 (1.1-1.8); Anion Gap 18.2 mEq/L (5-15); Calcium 9.6 mg/dl (8.4-10.2); Carbon Dioxide 27 mmol/L (22.0-30.0); Globulin 3.6 g/dL (1.3-3.2)
[2020-07-30 15:23] LABS: Glucose 544 mg/dl (74-100)
== END ==
PROVIDERS: Visit Provider Emergency Medicine
DX: N28.9 Disorder of kidney and ureter, unspecified (principal)
CPT/HCPCS: 36415; 80053; 85025

== ENCOUNTER → 2020-08-29 14:05 | Outpatient (CLI) | payer MEDICARE, MEDICAID, SELFPAY ==
[2020-08-29 14:18] LABS: Basophils # 0.1 K/mm3 (0-0.2); Basophils % 0.8 % (0.1-2.0); Eosinophils # 0.4 K/mm3 (0.0-0.4); Eosinophils % 3.3 % (0.1-12.0); Hematocrit 41.9 % (37.0-47.0); Hemoglobin 13.7 g/dL (12.2-16.2); Lymphocytes # 5.8 K/mm3 (0.7-4.5); Mean Corpuscular HGB Conc 32.6 g/dL (31.8-35.4); Mean Corpuscular Hemoglobin 28.3 pg (27.0-31.2); Mean Corpuscular Volume 86.9 fl (81-99); Mean Platelet Volume 9.2 fl (7.4-10.4); Monocytes # 0.7 K/mm3 (0.1-1.0); Monocytes % 6.1 % (1.7-9.3); Neutrophils % 41.8 % (37.0-80.0); Platelet Count 315 K/mm3 (142-424); Red Blood Count 4.83 M/mm3 (4.20-5.40); Red Cell Distribution Width 14.4 % (11.5-17.5)
[2020-08-29 14:21] LABS: Alanine Aminotransferase 38 U/L (12-78); Albumin Level 4.1 g/dl (3.5-5.0); Albumin/Globulin Ratio 1.2 (1.1-1.8); Alkaline Phosphatase 107 U/L (38-126); Anion Gap 17.2 mEq/L (5-15); Aspartate Amino Transferase 43 U/L (14-36); Bilirubin,Total 0.5 mg/dl (0.2-1.3); Blood Urea Nitrogen 25 mg/dl (7-17); Calcium 9.5 mg/dl (8.4-10.2); Carbon Dioxide 24 mmol/L (22.0-30.0); Chloride 100 mmol/L (98-107); Chol/HDL Ratio 2.6 (1-3.5); Cholesterol 154 mg/dl (140-200); Estimated Glomerular Filt Rate 57 ml/min (>60); GFR (African American) 69 ML/MIN (>60); Globulin 3.4 g/dL (1.3-3.2); Glucose 389 mg/dl (74-100); HDL Cholesterol 60 mg/dl (40-60); Potassium 5.2 mmoL/L (3.5-5.1); Sodium 136 mmol/L (136-145); Total Protein,Serum 7.5 g/dl (6.3-8.2); Triglycerides 359 mg/dl (30-150); VLDL Cholesterol 72 mg/dL (0-40)
[2020-08-29 14:33] LABS: Direct LDL Cholesterol 52.59 mg/dL (100-129)
[2020-08-29 14:37] LABS: Free T4 (Free Thyroxine) 1.28 ng/dl (0.78-2.19)
[2020-08-29 14:38] LABS: 25-OH Vitamin D, Total 26.2 ng/mL (30-100)
[2020-08-29 14:52] LABS: Thyroid Stimulating Hormone 2.55 uIU/mL (0.465-4.68)
[2020-08-29 14:54] LABS: Barbiturates Screen,Urine Negative ng/ml (<200); Benzodiazepines Screen,Urine Negative ng/ml (<200)
[2020-08-29 14:55] LABS: Amphetamine/Metha Screen,Urine Negative ng/ml (<1000)
[2020-08-29 14:56] LABS: Cannabinoid Screen,Urine Positive ng/ml (<50); Cocaine Screen,Urine Negative ng/ml (<300)
[2020-08-29 14:57] LABS: Methadone Screen,Urine Negative ng/ml (<300)
[2020-08-29 14:58] LABS: Opiate Screen,Urine Negative ng/ml (<300); Phencyclidine Screen,Urine Negative ng/ml (<25)
[2020-08-29 16:16] LABS: Hemoglobin A1C > 14.0 % (4.0-6.0)
== END ==
PROVIDERS: Visit Provider Emergency Medicine
DX: B19.20 Unspecified viral hepatitis C without hepatic coma (principal); E11.9 Type 2 diabetes mellitus without complications; E66.3 Overweight; I10 Essential (primary) hypertension; R09.89 Other specified symptoms and signs involving the circulatory and respiratory systems; E55.9 Vitamin D deficiency, unspecified; E11.65 Type 2 diabetes mellitus with hyperglycemia; Z79.899 Other long term (current) drug therapy; Z79.4 Long term (current) use of insulin
CPT/HCPCS: 80053; 80061; 80305; 82043; 82306; 83036; 84439; 84443; 85025

== ENCOUNTER → 2020-09-09 14:03 | Outpatient (CLI) | payer MEDICARE, MEDICAID, SELFPAY ==
[2020-09-09 14:20] LABS: Alanine Aminotransferase 33 U/L (12-78); Albumin Level 4.2 g/dl (3.5-5.0); Albumin/Globulin Ratio 1.2 (1.1-1.8); Alkaline Phosphatase 87 U/L (38-126); Anion Gap 16.2 mEq/L (5-15); Aspartate Amino Transferase 40 U/L (14-36); Bilirubin,Total 0.5 mg/dl (0.2-1.3); Blood Urea Nitrogen 25 mg/dl (7-17); Calcium 9.5 mg/dl (8.4-10.2); Carbon Dioxide 27 mmol/L (22.0-30.0); Chloride 106 mmol/L (98-107); Estimated Glomerular Filt Rate 57 ml/min (>60); GFR (African American) 69 ML/MIN (>60); Globulin 3.4 g/dL (1.3-3.2); Glucose 291 mg/dl (74-100); Potassium 5.2 mmoL/L (3.5-5.1); Sodium 144 mmol/L (136-145); Total Protein,Serum 7.6 g/dl (6.3-8.2)
[2020-09-09 14:27] LABS: Basophils # 0.1 K/mm3 (0-0.2); Basophils % 0.9 % (0.1-2.0); Eosinophils # 0.2 K/mm3 (0.0-0.4); Hematocrit 45.2 % (37.0-47.0); Hemoglobin 13.7 g/dL (12.2-16.2); Lymphocytes # 3.6 K/mm3 (0.7-4.5); Lymphocytes % 38.9 % (10-50); Mean Corpuscular HGB Conc 30.2 g/dL (31.8-35.4); Mean Corpuscular Hemoglobin 27.7 pg (27.0-31.2); Mean Corpuscular Volume 91.8 fl (81-99); Mean Platelet Volume 8.4 fl (7.4-10.4); Monocytes # 0.9 K/mm3 (0.1-1.0); Neutrophils # 4.6 K/mm3 (1.8-7.8); Neutrophils % 49.2 % (37.0-80.0); Platelet Count 283 K/mm3 (142-424); Red Blood Count 4.93 M/mm3 (4.20-5.40); Red Cell Distribution Width 13.6 % (11.5-17.5); White Blood Count 9.4 K/mm3 (4.8-10.8)
[2020-09-11 04:03] LABS: HIV Screen 4th Generation wRfx Non Reactive (Non Reactive)
[2020-09-11 13:44] LABS: Hep A Ab, IgM Negative (Negative); Hep A Ab, Total Positive (Negative); Hep B Core Ab, Total Positive (Negative); Hep B Surface Ab, Qual Non Reactive (.); Hepatitis B Surface Antigen Negative (Negative); Hepatitis C Antibody >11.0 s/co ratio (0.0-0.9)
[2020-09-12 02:38] LABS: ALT (SGPT) P5P 35 IU/L (0-40); Alpha 2-Macroglobulins, Qn 456 mg/dL (110-276); Apolipoprotein A-1 174 mg/dL (116-209); Bilirubin, Total 0.3 mg/dL (0.0-1.2); Fibrosis Score 0.41 (0.00-0.21); Fibrosis Stage F1-F2 (.); GGT 56 IU/L (0-60); Haptoglobin 198 mg/dL (33-346); Necroinflammat Activity Grade A0-A1 (.); Necroinflammat Activity Score 0.21 (0.00-0.17)
[2020-09-12 20:44] LABS: HCV Genotype Charge YES; Hepatitis C Genotype 1a (.)
== END ==
PROVIDERS: Visit Provider Nurse Practitioner Family
DX: B18.2 Chronic viral hepatitis C (principal); R19.7 Diarrhea, unspecified; Z11.4 Encounter for screening for human immunodeficiency virus [HIV]
CPT/HCPCS: 80053; 81596; 85025; 86703; 86704; 86706; 86708; 87340; 87380; 87522; 87902; G0432

== ENCOUNTER → 2020-09-12 12:45 | Outpatient (CLI) | payer MEDICARE, MEDICAID, SELFPAY ==
[2020-09-12 13:10] LABS: Basophils # 0.1 K/mm3 (0-0.2); Basophils % 0.8 % (0.1-2.0); Eosinophils # 0.2 K/mm3 (0.0-0.4); Eosinophils % 2.3 % (0.1-12.0); Hematocrit 43.2 % (37.0-47.0); Hemoglobin 13.3 g/dL (12.2-16.2); Lymphocytes # 3.4 K/mm3 (0.7-4.5); Lymphocytes % 38.1 % (10-50); Mean Corpuscular HGB Conc 30.7 g/dL (31.8-35.4); Mean Corpuscular Hemoglobin 27.7 pg (27.0-31.2); Mean Platelet Volume 8.1 fl (7.4-10.4); Monocytes # 0.6 K/mm3 (0.1-1.0); Monocytes % 6.2 % (1.7-9.3); Neutrophils # 4.6 K/mm3 (1.8-7.8); Neutrophils % 52.5 % (37.0-80.0); Platelet Count 269 K/mm3 (142-424); Red Cell Distribution Width 14.3 % (11.5-17.5); White Blood Count 8.8 K/mm3 (4.8-10.8)
[2020-09-12 14:06] LABS: C-Reactive Protein < 0.3 mg/L (0-4)
[2020-09-13 09:10] LABS: Alpha-1-Antitrypsin 83 mg/dL (101-187)
== END ==
PROVIDERS: Visit Provider Internal Medicine Pulmonary Disease
DX: J44.9 Chronic obstructive pulmonary disease, unspecified (principal); J45.909 Unspecified asthma, uncomplicated; R06.00 Dyspnea, unspecified
CPT/HCPCS: 36415; 82103; 85025; 86140

== ENCOUNTER → 2020-09-16 14:11 | Outpatient (CLI) | payer MEDICARE, MEDICAID, SELFPAY ==
[2020-09-16 14:15] LABS: Adenovirus F 40/41, stool Not Detected (NotDetected); Astrovirus Not Detected (NotDetected); Campylobacter Not Detected (NotDetected); Clostridium Difficile A/B, PCR Not Detected (NotDetected); Cryptosporidium Not Detected (NotDetected); Cyclospora Cayetanesis Not Detected (NotDetected); Entamoeba histolytica Not Detected (NotDetected); Enteroaggregative E coli Not Detected (NotDetected); Enteropathogenic E coli Not Detected (NotDetected); Enterotoxigenic E coli Not Detected (NotDetected); Giardia lamblia Not Detected (NotDetected); Norovirus Not Detected (NotDetected); Plesimonas Shigalloides, PCR Not Detected (NotDetected); Rotavirus A Not Detected (NotDetected); Salmonella, PCR Not Detected (NotDetected); Sapovirus Not Detected (NotDetected); Shiga-like toxin E coli Not Detected (NotDetected); Shigella Enterovasive E coli Not Detected (NotDetected); Vibrio Cholerae Not Detected (NotDetected); Vibrio, PCR Not Detected (NotDetected); Yersinia Entercolitica, PCR Not Detected (NotDetected)
== END ==
PROVIDERS: Visit Provider Nurse Practitioner Family
DX: R19.7 Diarrhea, unspecified (principal); B18.2 Chronic viral hepatitis C
CPT/HCPCS: 87506

== ENCOUNTER → 2020-10-16 13:34 | Outpatient (CLI) | payer MEDICARE, MEDICAID, SELFPAY ==
--- NOTE | 2020-10-16 14:44 | CT_ITS ---
PROCEDURE INFORMATION: Exam: CT Chest Without Contrast; Diagnostic; High Resolution Exam date and time: 10/16/2020 2:44 PM Age: 60 years old Clinical indication: Shortness of breath; Patient HX: Copd with SOA that is getting worse TECHNIQUE: Imaging protocol: Diagnostic computed tomography of the chest without contrast. Exam was performed with high resolution protocol. Radiation optimization: All CT scans at this facility use at least one of these dose optimization techniques: automated exposure control; mA and/or kV adjustment per patient size (includes targeted exams where dose is matched to clinical indication); or iterative reconstruction. COMPARISON: CT ANGIO CHEST 09/30/2018 5:52 PM FINDINGS: Lungs: Again noted are moderate panlobular emphysematous changes. Multiple nodules throughout the lung kimball bilaterally.. Largest nodule in the posterior right upper lobe has increased in size since the prior study.. It measures 10.6 mm.(series 2, image 17). Bronchiectasis in the lower lobes; Calcified granuloma in the left lower lobe Subpleural interstitial densities consistent with chronic lung changes Pleural space: Calcified pleural plaques may represent exposure to asbestos. Heart: Unremarkable. No cardiomegaly. No pericardial effusion. Aorta: Unremarkable. No aortic aneurysm. Lymph nodes: Unremarkable. No enlarged lymph nodes. Bones/joints: Unremarkable. No acute fracture. Soft tissues: Unremarkable. IMPRESSION: 1. Multiple nodules throughout the lung kimball bilaterally.. Largest nodule in the posterior right upper lobe has increased in size since the prior study.. It measures 10.6 mm.(series 2, image 17). For both low risk and high risk patients, consider CT Chest at 3 months, PET/CT, or biopsy. (Reference: Grayson) References: Grayson Walters et al. Guidelines for Management of Incidental Pulmonary Nodules Detected on CT Images: From the Fleischner Society 2017. Radiology. 2017;284(1):228-243. 2. Again noted are moderate panlobular emphysematous changes. 3. Calcified pleural plaques may represent exposure to asbestos.
--- NOTE | 2020-10-16 14:45 | PC.NURSE ---
PFT completed without incident. Albuterol 0.083% given via HHN, per protocol, Pt tolerated tx well with no adverse reactions. 6 Minute Walk completed with fair difficulty due to chronic leg pain, issues resolved in recovery.
== END ==
PROVIDERS: PCP Emergency Medicine; Visit Provider Internal Medicine Pulmonary Disease
DX: R06.00 Dyspnea, unspecified (principal); R06.02 Shortness of breath
CPT/HCPCS: 71250; 94060; 94618; 94726; 94729

== ENCOUNTER → 2020-11-13 14:49 | Outpatient (CLI) | payer MEDICARE, MEDICAID, SELFPAY ==
[2020-11-13 15:28] LABS: Basophils # 0.1 K/mm3 (0-0.2); Eosinophils # 0.3 K/mm3 (0.0-0.4); Eosinophils % 2.5 % (0.1-12.0); Hematocrit 47.5 % (37.0-47.0); Hemoglobin 14.2 g/dL (12.2-16.2); Lymphocytes # 4.4 K/mm3 (0.7-4.5); Lymphocytes % 43.6 % (10-50); Mean Corpuscular HGB Conc 29.8 g/dL (31.8-35.4); Mean Corpuscular Hemoglobin 28.6 pg (27.0-31.2); Mean Platelet Volume 8.5 fl (7.4-10.4); Monocytes # 0.7 K/mm3 (0.1-1.0); Monocytes % 6.5 % (1.7-9.3); Neutrophils # 4.7 K/mm3 (1.8-7.8); Neutrophils % 46.4 % (37.0-80.0); Platelet Count 315 K/mm3 (142-424); Red Blood Count 4.95 M/mm3 (4.20-5.40); Red Cell Distribution Width 13.9 % (11.5-17.5)
[2020-11-13 17:44] LABS: 25-OH Vitamin D, Total 26.5 ng/mL (30-100)
[2020-11-13 17:45] LABS: Alanine Aminotransferase 22 U/L (12-78); Albumin Level 3.8 g/dl (3.5-5.0); Albumin/Globulin Ratio 1.1 (1.1-1.8); Alkaline Phosphatase 104 U/L (38-126); Anion Gap 13.2 mEq/L (5-15); Aspartate Amino Transferase 28 U/L (14-36); Bilirubin,Total 0.2 mg/dl (0.2-1.3); Blood Urea Nitrogen 31 mg/dl (7-17); Calcium 8.6 mg/dl (8.4-10.2); Carbon Dioxide 28 mmol/L (22.0-30.0); Chloride 104 mmol/L (98-107); Estimated Glomerular Filt Rate 38 ml/min (>60); GFR (African American) 47 ML/MIN (>60); Globulin 3.5 g/dL (1.3-3.2); Glucose 395 mg/dl (74-100); Sodium 139 mmol/L (136-145); Total Protein,Serum 7.3 g/dl (6.3-8.2)
[2020-11-13 17:58] LABS: Thyroid Stimulating Hormone 1.09 uIU/mL (0.465-4.68)
[2020-11-13 18:09] LABS: Potassium 6.2 mmoL/L (3.5-5.1)
[2020-11-13 18:22] LABS: Chol/HDL Ratio 1.8 (1-3.5); Cholesterol 174 mg/dl (140-200); HDL Cholesterol 96 mg/dl (40-60); Triglycerides 189 mg/dl (30-150); VLDL Cholesterol 38 mg/dL (0-40)
[2020-11-13 18:39] LABS: T4 (Thyroxine) 6.5 ug/dl (5.53-11.0)
[2020-11-17 18:42] LABS: Alpha-1-Antitrypsin 100 mg/dL (101-187); Phenotype (PI) MZ (.)
== END ==
PROVIDERS: Internal Medicine Pulmonary Disease; Visit Provider Nurse Practitioner Family
DX: B19.20 Unspecified viral hepatitis C without hepatic coma (principal); E11.40 Type 2 diabetes mellitus with diabetic neuropathy, unspecified; E11.65 Type 2 diabetes mellitus with hyperglycemia; E66.3 Overweight; I10 Essential (primary) hypertension; M25.562 Pain in left knee; R09.89 Other specified symptoms and signs involving the circulatory and respiratory systems; E55.9 Vitamin D deficiency, unspecified; J44.9 Chronic obstructive pulmonary disease, unspecified; Z79.4 Long term (current) use of insulin
CPT/HCPCS: 36415; 80053; 80061; 82103; 82104; 82306; 83036; 84436; 84443; 85025

== ENCOUNTER → 2020-11-16 10:27 | Outpatient (CLI) | payer MEDICARE, MEDICAID, SELFPAY ==
[2020-11-16 12:09] LABS: Anion Gap 10.4 mEq/L (5-15); Blood Urea Nitrogen 31 mg/dl (7-17); Calcium 8.4 mg/dl (8.4-10.2); Carbon Dioxide 25 mmol/L (22.0-30.0); Chloride 108 mmol/L (98-107); Estimated Glomerular Filt Rate 73 ml/min (>60); GFR (African American) 89 ML/MIN (>60); Glucose 209 mg/dl (74-100); Potassium 4.4 mmoL/L (3.5-5.1); Sodium 139 mmol/L (136-145)
== END ==
PROVIDERS: PCP Emergency Medicine; Visit Provider Nurse Practitioner Family
DX: E87.5 Hyperkalemia (principal)
CPT/HCPCS: 36415; 80048

== ENCOUNTER 2020-11-24 16:42 | Emergency (ER) | payer MEDICARE, MEDICAID, SELFPAY ==
--- NOTE | 2020-11-24 16:41 | ECG_ITS ---
APPROVED REPORT Exam: Resting ECG HR:89 bpm ECG Measurements Heart Rate 89 AXES NM 144 P 36 QRSd 68 QRS 7 QT 362 T 41 QTc 440 Conclusion Normal sinus rhythm Normal ECG Electronically signed by : Moe Escoto MD 11/26/2020 21:26:16
[2020-11-24 16:42] VITALS: BP 108/81; PULSE 85; RESP 20; TEMP 36.9; O2SAT 95; BMI 24.5
--- NOTE | 2020-11-24 16:45 | XR_ITS ---
PROCEDURE INFORMATION: Exam: XR Chest Exam date and time: 11/24/2020 4:45 PM Age: 60 years old Clinical indication: Chest wall pain; Additional info: Chest pain TECHNIQUE: Imaging protocol: XR of the chest. Views: 1 view. COMPARISON: CT HR CHEST X3 10/16/2020 3:03 PM FINDINGS: Tubes, catheters and devices: Loop recorder device is present. Airway: Patent Lungs: COPD/emphysema is appreciated. Diffuse and essentially stable chronic interstitial prominence. No significant acute interstitial or airspace disease is noted. Pleural spaces: Unremarkable. No pleural effusion. No pneumothorax. Heart/Mediastinum: The heart is mildly enlarged. Vasculature: Calcified aortic knob. Bones/joints: No acute skeletal abnormality or aggressive osseous lesion. IMPRESSION: 1. COPD/emphysema with chronic interstitial lung disease. 2. No acute cardiopulmonary pathology is grossly noted.
[2020-11-24 16:58] LABS: Basophils # 0.1 K/mm3 (0-0.2); Basophils % 0.4 % (0.1-2.0); Eosinophils # 0.2 K/mm3 (0.0-0.4); Eosinophils % 1.7 % (0.1-12.0); Hematocrit 48.8 % (37.0-47.0); Hemoglobin 15.4 g/dL (12.2-16.2); Lymphocytes # 7.3 K/mm3 (0.7-4.5); Lymphocytes % 53.9 % (10-50); Mean Corpuscular HGB Conc 31.5 g/dL (31.8-35.4); Mean Corpuscular Hemoglobin 28.6 pg (27.0-31.2); Mean Corpuscular Volume 90.8 fl (81-99); Mean Platelet Volume 7.9 fl (7.4-10.4); Monocytes # 0.9 K/mm3 (0.1-1.0); Monocytes % 6.8 % (1.7-9.3); Neutrophils # 5.1 K/mm3 (1.8-7.8); Neutrophils % 37.2 % (37.0-80.0); Platelet Count 400 K/mm3 (142-424); Red Blood Count 5.38 M/mm3 (4.20-5.40); Red Cell Distribution Width 14.1 % (11.5-17.5); White Blood Count 13.6 K/mm3 (4.8-10.8)
[2020-11-24 17:01] LABS: MANUAL DIFFERENTIAL MANUAL DIFFERENTIAL (MANUAL DIFF)
[2020-11-24 17:07] LABS: Anion Gap 13.9 mEq/L (5-15); Blood Urea Nitrogen 25 mg/dl (7-17); Calcium 10.3 mg/dl (8.4-10.2); Carbon Dioxide 25 mmol/L (22.0-30.0); Chloride 106 mmol/L (98-107); Estimated Glomerular Filt Rate 57 ml/min (>60); GFR (African American) 69 ML/MIN (>60); Glucose 75 mg/dl (74-100); Potassium 3.9 mmoL/L (3.5-5.1); Sodium 141 mmol/L (136-145)
[2020-11-24 17:20] LABS: Troponin I < 0.01 ng/ml (0.00-0.034)
[2020-11-24 17:23] LABS: Lymphocytes % 66 % (10-50); Monocytes % 6 % (2-9); Neutrophils % 22 % (42-76); Total Cells Counted 100
[2020-11-24 17:24] LABS: Hypochromasia 2+; Platelet Estimate Slight Increase
[2020-11-24 17:30] VITALS: BP 113/68; PULSE 75; RESP 20; O2SAT 95
--- NOTE | 2020-11-24 17:35 | HMH.EDCP ---
ED Disposition Clinical Impression: Nonspecific chest pain Disposition: Home, Self-Care Condition on Discharge: Good Instructions: DI for Atypical Chest Pain Referrals: Provider,Vasile, [Referring] - Kaiden Chan MD [Staff Physician] - - Critical Care Critical Care Time: No Attestation: On 11/24/20, the high probability of a clinically significant, sudden or life threatening deterioration of the following system(s) required my full and direct attention, intervention and personal management. The time I documented below is in addition to time spent performing reported procedures but includes the following listed in this critical care notation. Medical Decision Making - Medical Records Medical records reviewed: Yes: I reviewed the patient's medical records. - Jordin Inquiry Pt receiving controlled substance: No Vital Signs: 11/24/20 16:42 11/24/20 17:30 11/24/20 18:00 Temperature 98.5 F Temperature Source Oral Pulse Rate 75 80 Pulse Rate [Radial] 85 Respiratory Rate 20 20 18 Blood Pressure 113/68 97/62 L Blood Pressure [Right Arm] 108/81 L Blood Pressure Mean 83 73 Blood Pressure Mean [Right Arm] 90 Blood Pressure Source [Right Arm] Automatic Cuff Blood Pressure Position [Right Arm] Sitting 02 Sat by Pulse Oximetry 95 95 96 Oxygen Delivery Method Room Air - Lab Data Lab Results 11/24/20 16:45: WBC 13.6 H, RBC 5.38, Hgb 15.4, Hct 48.8 H, MCV 90.8, MCH 28.6, MCHC 31.5 L, RDW 14.1, Plt Count 400, MPV 7.9, Neut % (Auto) 37.2, Lymph % (Auto) 53.9 H, Mcdowell % (Auto) 6.8, Eos % (Auto) 1.7, Baso % (Auto) 0.4, Neut # (Auto) 5.1, Lymph # (Auto) 7.3 H, Mcdowell # (Auto) 0.9, Eos # (Auto) 0.2, Baso # (Auto) 0.1, Total Counted 100, Neutrophils % (Manual) 22 L, Band Neutrophils % 5.0, Lymphocytes % (Manual) 66 H, Monocytes % (Manual) 6, Basophils % (Manual) 1.0, Platelet Estimate Slight increase, Hypochromasia 2+ 11/24/20 16:45: Sodium 141, Potassium 3.9, Chloride 106, Carbon Dioxide 25, Anion Gap 13.9, BUN 25 H, Creatinine 1.00, Estimated GFR 57 L, Est GFR ( Amer) 69, Glucose 75, Calcium 10.3 H, Troponin I < 0.01 Result diagrams: 11/24/20 16:45 11/24/20 16:45 Orders (Tests/Meds): ED MEDICATIONS Discontinued Medications Generic Name Dose Route Start Last Admin Trade Name Natalioq PRN Reason Stop Dose Admin Morphine Sulfate 4 mg 11/24/20 16:58 11/24/20 17:20 Morphine 4mg/Ml Syringe IV 11/24/20 16:59 4 mg ONCE ONE Administration Ondansetron HCl 4 mg 11/24/20 16:58 11/24/20 17:20 Ondansetron 4mg/2ml Vial IV 11/24/20 16:59 4 mg ONCE ONE Administration ORDERS Category Date Time Status Troponin I Q3H Lab 11/24/20 19:45 Ordered Troponin I Q3H Lab 11/24/20 22:45 Ordered - Radiology Data #1 Image(s): Chest Image Reviewed: Yes I reviewed the patient's radiology results, Yes I reviewed the patient's radiology image, Yes I have reviewed radiologist's interpretation IMPRESSION: 1. COPD/emphysema with chronic interstitial lung disease. 2. No acute cardiopulmonary pathology is grossly noted. - ECG Data Tracing #1 I reviewed this ECG and interpreted as documented below: ECG initial impression date: 11/24/20 ECG initial impression time: 16:41 ECG normal with no acute: arrhythmias, ischemia, conduction abnormalities, chamber hypertrophy Normal Sinus Rhythm: Yes - Reevaluation(s) Time: 18:31 Reevaluation #1: On reevaluation, patient is pain-free. Negative troponin. No significant EKG changes. Patient is to follow-up with PCP in 48 hours. Given strict return precautions. Verbalized understanding. Medical Decision Narrative: 60-year-old female presented to the emergency department with some nonspecific chest discomfort. Appears to be subacute in nature. Work-up initiated. Chest Pain HPI - General Chief Complaint: Chest Pain Stated Complaint: Chest Pain Time Seen by Provider: 11/24/20 16:50 Mode of Arrival: EMS Limitati
[2020-11-24 18:00] VITALS: BP 97/62; PULSE 80; RESP 18; O2SAT 96
[2020-11-24 20:26] VITALS: BP 97/62; PULSE 80; RESP 16; TEMP 36.8; O2SAT 96
== END 2020-11-24 20:00 | disposition home or self-care (01) ==
PROVIDERS: Emergency Provider Emergency Medicine; PCP Emergency Medicine
DX: R07.9 Chest pain, unspecified (principal); I50.9 Heart failure, unspecified; J44.9 Chronic obstructive pulmonary disease, unspecified; I25.10 Atherosclerotic heart disease of native coronary artery without angina pectoris; I11.0 Hypertensive heart disease with heart failure; E11.51 Type 2 diabetes mellitus with diabetic peripheral angiopathy without gangrene; Z87.891 Personal history of nicotine dependence; Z79.84 Long term (current) use of oral hypoglycemic drugs
CPT/HCPCS: 71045; 80048; 84484; 85007; 85025; 93005; 96365; 99283; J2405

== ENCOUNTER → 2020-11-26 15:53 | Outpatient (CLI) | payer MEDICARE, MEDICAID, SELFPAY ==
[2020-11-26 16:47] LABS: Alanine Aminotransferase 26 U/L (12-78); Albumin Level 3.8 g/dl (3.5-5.0); Alkaline Phosphatase 110 U/L (38-126); Anion Gap 12.7 mEq/L (5-15); Aspartate Amino Transferase 27 U/L (14-36); Bilirubin,Direct 0.5 mg/dl (0.0-0.4); Bilirubin,Total 0.5 mg/dl (0.2-1.3); Blood Urea Nitrogen 28 mg/dl (7-17); Calcium 9.8 mg/dl (8.4-10.2); Carbon Dioxide 24 mmol/L (22.0-30.0); Chloride 106 mmol/L (98-107); Estimated Glomerular Filt Rate 73 ml/min (>60); GFR (African American) 89 ML/MIN (>60); Globulin 3.7 g/dL (1.3-3.2); Potassium 4.7 mmoL/L (3.5-5.1); Sodium 138 mmol/L (136-145); Total Protein,Serum 7.5 g/dl (6.3-8.2)
[2020-11-26 18:51] LABS: Glucose 444 mg/dl (74-100)
[2020-11-28 09:29] LABS: Hepatitis C Antibody >11.0 s/co ratio (0.0-0.9)
== END ==
PROVIDERS: Visit Provider Nurse Practitioner Family
DX: B19.20 Unspecified viral hepatitis C without hepatic coma (principal)
CPT/HCPCS: 36415; 80053; 80076; 87380; 87522

== ENCOUNTER → 2021-01-06 14:00 | Outpatient (CLI) | payer MEDICARE, MEDICAID, SELFPAY ==
[2021-01-06 15:14] LABS: Amphetamine/Metha Screen,Urine Negative ng/ml (<1000)
[2021-01-06 15:15] LABS: Barbiturates Screen,Urine Negative ng/ml (<200); Benzodiazepines Screen,Urine Negative ng/ml (<200)
[2021-01-06 15:20] LABS: Cannabinoid Screen,Urine Negative ng/ml (<50); Cocaine Screen,Urine Negative ng/ml (<300)
[2021-01-06 15:21] LABS: Methadone Screen,Urine Negative ng/ml (<300)
[2021-01-06 15:22] LABS: Opiate Screen,Urine Negative ng/ml (<300); Phencyclidine Screen,Urine Negative ng/ml (<25)
== END ==
PROVIDERS: Visit Provider Emergency Medicine
DX: Z79.899 Other long term (current) drug therapy (principal)
CPT/HCPCS: 80305

== ENCOUNTER → 2021-01-19 10:31 | Outpatient (CLI) | payer MEDICARE, MEDICAID, SELFPAY ==
--- NOTE | 2021-01-19 10:34 | CT_ITS ---
PROCEDURE: CT CHEST WO CON CLINICAL INDICATION: 3-month follow-up COMPARISON: CT CT ANGIO CHEST from 09/30/[address] HR CHEST X3 from 10/16/2020 TECHNIQUE: Axial images obtained with sagittal and coronal reformats. All CT scans at the facility use one or more dose reduction, viz: automated exposure control, ma/kV adjustment per patient size (including targeted exams where dose is matched to indication, i.e. head), or iterative reconstruction technique. FINDINGS: HEART AND MEDIASTINAL STRUCTURES: No mediastinal or hilar mass or adenopathy. There is mild prominence of the main pulmonary artery measuring 4 cm in with. The pulmonary artery/aorta ratio is greater than 1. LUNGS AND PLEURAL SPACES: COPD changes with centrilobular and paraseptal emphysema. There are scattered areas of scarring. Suspected suture line in the right upper lobe posteriorly. Scattered small nodular opacities are once again noted. The previously described nodule in the right upper lobe is not appear significantly changed at approximately 10.6 0.4 cm.. Irregular subpleural opacity is present in the left apex not significantly changed. No new suspicious nodules are apparent. No effusions or infiltrates. Scattered pulmonary fibrotic changes noted. BONY STRUCTURES: Degenerative changes of the thoracic spine. UPPER ABDOMEN: Unremarkable. ADDITIONAL FINDINGS: There is a loop recorder device present. IMPRESSION: Overall stable CT appearance of the chest. No change in the pulmonary nodular opacities with no new nodules apparent. Continued six-month follow-up suggested. COPD with centrilobular emphysema and scattered areas of scarring with pulmonary fibrosis Dictated by: Vu Arthur MD 01/20/2021 09:37 Vu Arthur MD in [place] 01/20/2021 09:37
== END ==
PROVIDERS: PCP Emergency Medicine; Visit Provider Internal Medicine Pulmonary Disease
DX: R91.8 Other nonspecific abnormal finding of lung field (principal)
CPT/HCPCS: 71250

== ENCOUNTER → 2021-02-23 15:09 | Outpatient (POV) | payer MEDICARE, MEDICAID, SELFPAY ==
[2021-02-23 15:57] LABS: Microscopic, Urine URINE MICROSCOPIC (MICROSCOPIC)
[2021-02-23 16:29] LABS: Appearance,Urine CLEAR (Clear); Bilirubin,Urine Negative (Negative); Blood, Urine 1+ (Negative); Color,Urine YELLOW (Yellow); Glucose,Urine (UA) Negative (Negative); Ketones,Urine Negative (Negative); Leukocyte Esterase,Urine TRACE (Negative); Nitrate,Urine Negative (Negative); Protein,Urine 2+ (Negative); Specific Gravity, Urine >= 1.030 (1.005-1.030); Urobilinogen,Urine 0.2 EU/dl (0.2)
[2021-02-23 16:42] LABS: Basophils # 0.2 K/mm3 (0-0.2); Basophils % 1.9 % (0.1-2.0); Eosinophils # 0.3 K/mm3 (0.0-0.4); Eosinophils % 2.5 % (0.1-12.0); Hematocrit 49.1 % (37.0-47.0); Hemoglobin 15.3 g/dL (12.2-16.2); Lymphocytes # 4.1 K/mm3 (0.7-4.5); Lymphocytes % 40.3 % (10-50); Mean Corpuscular HGB Conc 31.1 g/dL (31.8-35.4); Mean Corpuscular Hemoglobin 28.2 pg (27.0-31.2); Mean Corpuscular Volume 90.8 fl (81-99); Mean Platelet Volume 7.8 fl (7.4-10.4); Monocytes # 0.6 K/mm3 (0.1-1.0); Monocytes % 5.4 % (1.7-9.3); Neutrophils # 5.1 K/mm3 (1.8-7.8); Platelet Count 347 K/mm3 (142-424); Red Blood Count 5.41 M/mm3 (4.20-5.40); White Blood Count 10.2 K/mm3 (4.8-10.8)
[2021-02-23 17:19] LABS: Creatinine,Urine Random 162 mg/dL (Not Estab.)
[2021-02-23 17:31] LABS: Anion Gap 12.3 mEq/L (5-15); Blood Urea Nitrogen 21 mg/dl (7-17); Calcium 9.9 mg/dl (8.4-10.2); Carbon Dioxide 27 mmol/L (22.0-30.0); Chloride 106 mmol/L (98-107); Estimated Glomerular Filt Rate 57 ml/min (>60); GFR (African American) 69 ML/MIN (>60); Glucose 187 mg/dl (74-100); Phosphorous 4.4 mg/dl (2.5-4.5); Potassium 5.3 mmoL/L (3.5-5.1); Sodium 140 mmol/L (136-145)
[2021-02-23 17:40] LABS: Microalbumin/Creatinine Ratio 1039.9
[2021-02-23 17:45] LABS: Squamous Epithelial Cell,Urine Occasional #/hpf (0-5)
[2021-02-23 17:47] LABS: 25-OH Vitamin D, Total 22.2 ng/mL (30-100)
== END ==
PROVIDERS: PCP Emergency Medicine; Visit Provider Internal Medicine Nephrology
DX: R80.9 Proteinuria, unspecified (principal); E55.9 Vitamin D deficiency, unspecified
CPT/HCPCS: 36415; 80069; 81001; 82043; 82306; 82570; 83970; 84155; 85025

== ENCOUNTER → 2021-04-30 09:38 | Outpatient (CLI) | payer MEDICARE, MEDICAID, SELFPAY | PROVIDERS: Visit Provider Nurse Practitioner Family | DX: R82.90 Unspecified abnormal findings in urine (principal) | CPT/HCPCS: 87086 ==

== ENCOUNTER → 2021-05-08 14:54 | Outpatient (CLI) | payer MEDICARE, MEDICAID, SELFPAY ==
[2021-05-08 15:33] LABS: Basophils # 0.1 K/mm3 (0-0.2); Basophils % 0.6 % (0.1-2.0); Eosinophils # 0.2 K/mm3 (0.0-0.4); Eosinophils % 2.6 % (0.1-12.0); Hematocrit 46.7 % (37.0-47.0); Hemoglobin 14.1 g/dL (12.2-16.2); Lymphocytes # 3.6 K/mm3 (0.7-4.5); Lymphocytes % 44.1 % (10-50); Mean Corpuscular HGB Conc 30.2 g/dL (31.8-35.4); Mean Corpuscular Hemoglobin 27.6 pg (27.0-31.2); Mean Corpuscular Volume 91.6 fl (81-99); Mean Platelet Volume 8.2 fl (7.4-10.4); Monocytes # 0.5 K/mm3 (0.1-1.0); Monocytes % 6.2 % (1.7-9.3); Neutrophils # 3.8 K/mm3 (1.8-7.8); Neutrophils % 46.5 % (37.0-80.0); Platelet Count 311 K/mm3 (142-424); Red Blood Count 5.09 M/mm3 (4.20-5.40); White Blood Count 8.2 K/mm3 (4.8-10.8)
[2021-05-08 17:12] LABS: Alanine Aminotransferase 24 U/L (12-78); Albumin Level 3.6 g/dl (3.5-5.0); Albumin/Globulin Ratio 1.1 (1.1-1.8); Alkaline Phosphatase 94 U/L (38-126); Anion Gap 9.6 mEq/L (5-15); Aspartate Amino Transferase 28 U/L (14-36); Bilirubin,Total 0.5 mg/dl (0.2-1.3); Blood Urea Nitrogen 22 mg/dl (7-17); Carbon Dioxide 28 mmol/L (22.0-30.0); Chloride 109 mmol/L (98-107); Estimated Glomerular Filt Rate 73 ml/min (>60); GFR (African American) 89 ML/MIN (>60); Globulin 3.2 g/dL (1.3-3.2); Glucose 234 mg/dl (74-100); Potassium 4.6 mmoL/L (3.5-5.1); Sodium 142 mmol/L (136-145); Total Protein,Serum 6.8 g/dl (6.3-8.2)
[2021-05-10 10:13] LABS: Hep A Ab, IgM Negative (Negative); Hep A Ab, Total Positive (Negative); Hep B Core Ab, Total Positive (Negative); Hep B Surface Ab, Qual Non Reactive (.); Hepatitis C Antibody >11.0 s/co ratio (0.0-0.9)
[2021-05-12 05:14] LABS: ALT (SGPT) P5P 24 IU/L (0-40); Alpha 2-Macroglobulins, Qn 414 mg/dL (110-276); Apolipoprotein A-1 156 mg/dL (116-209); Bilirubin, Total 0.3 mg/dL (0.0-1.2); Fibrosis Score 0.39 (0.00-0.21); Fibrosis Stage F1-F2 (.); GGT 44 IU/L (0-60); Haptoglobin 198 mg/dL (33-346); Necroinflammat Activity Grade A0-No activity (.); Necroinflammat Activity Score 0.12 (0.00-0.17)
== END ==
PROVIDERS: Nurse Practitioner Family; PCP Emergency Medicine; Visit Provider Nurse Practitioner Family
DX: B19.20 Unspecified viral hepatitis C without hepatic coma (principal); R07.9 Chest pain, unspecified; E11.65 Type 2 diabetes mellitus with hyperglycemia; Z79.4 Long term (current) use of insulin
CPT/HCPCS: 80053; 81596; 83036; 85025; 86704; 86706; 86708; 87380; 87522

== ENCOUNTER → 2021-07-31 15:53 | Outpatient (CLI) | payer MEDICARE, MEDICAID, SELFPAY ==
--- NOTE | 2021-07-31 15:59 | XR_ITS ---
FINAL REPORT CLINICAL HISTORY: dyspnea/cough COMPARISON: 11/24/2020 FINDINGS: TWO-VIEW CHEST The heart size is normal. The mediastinum is normal. A loop recorder is noted. There are interstitial opacities consistent with tsny-jm-hnajtiwl fibrosis/scarring. There is no pneumothorax. IMPRESSION: Mild to moderate fibrosis/scarring. Reviewed, Interpreted and Dictated by Fredrick Lala III, MD Transcribed by Halle Guillen Authenticated and [facility]
== END ==
PROVIDERS: PCP Emergency Medicine; Visit Provider Internal Medicine
DX: I10 Essential (primary) hypertension (principal); I48.0 Paroxysmal atrial fibrillation; I73.9 Peripheral vascular disease, unspecified; N28.9 Disorder of kidney and ureter, unspecified; R05.9 Cough, unspecified; R06.02 Shortness of breath; R55 Syncope and collapse; I20.8 Other forms of angina pectoris
CPT/HCPCS: 71046

== ENCOUNTER → 2021-10-14 16:04 | Outpatient (CLI) | payer MEDICARE, MEDICAID, SELFPAY ==
[2021-10-14 16:28] LABS: Microscopic, Urine URINE MICROSCOPIC (MICROSCOPIC)
[2021-10-14 17:46] LABS: Basophils # 0.1 K/mm3 (0-0.2); Basophils % 0.9 % (0.1-2.0); Eosinophils # 0.1 K/mm3 (0.0-0.4); Eosinophils % 1.1 % (0.1-12.0); Hematocrit 46.7 % (37.0-47.0); Hemoglobin 13.8 g/dL (12.2-16.2); Lymphocytes # 4.7 K/mm3 (0.7-4.5); Lymphocytes % 35.6 % (10-50); Mean Corpuscular HGB Conc 29.6 g/dL (31.8-35.4); Mean Corpuscular Hemoglobin 27.5 pg (27.0-31.2); Mean Corpuscular Volume 92.8 fl (81-99); Mean Platelet Volume 8.6 fl (7.4-10.4); Monocytes % 7.1 % (1.7-9.3); Neutrophils # 7.4 K/mm3 (1.8-7.8); Neutrophils % 55.3 % (37.0-80.0); Platelet Count 332 K/mm3 (142-424); Red Blood Count 5.03 M/mm3 (4.20-5.40); Red Cell Distribution Width 14.5 % (11.5-17.5); White Blood Count 13.3 K/mm3 (4.8-10.8)
[2021-10-14 18:26] LABS: Appearance,Urine CLEAR (Clear); Blood, Urine Negative (Negative); Color,Urine YELLOW (Yellow); Glucose,Urine (UA) Negative (Negative); Ketones,Urine 1+ (Negative); Leukocyte Esterase,Urine TRACE (Negative); Nitrate,Urine Negative (Negative); PH,Urine 5.5 (5.0-8.5); Protein,Urine 2+ (Negative); Specific Gravity, Urine >= 1.030 (1.005-1.030); Urobilinogen,Urine 0.2 EU/dl (0.2)
[2021-10-14 18:28] LABS: Bilirubin,Urine 1+ (Negative)
[2021-10-14 18:33] LABS: Albumin Level 3.6 g/dl (3.5-5.0); Anion Gap 16.9 mEq/L (5-15); Blood Urea Nitrogen 41 mg/dl (7-17); Calcium 8.4 mg/dl (8.4-10.2); Carbon Dioxide 22 mmol/L (22.0-30.0); Chloride 107 mmol/L (98-107); Estimated Glomerular Filt Rate 17 ml/min (>60); GFR (African American) 20 ML/MIN (>60); Glucose 100 mg/dl (74-100); Phosphorous 8.5 mg/dl (2.5-4.5); Potassium 4.9 mmoL/L (3.5-5.1); Sodium 141 mmol/L (136-145)
[2021-10-14 19:09] LABS: Creatinine,Urine Random 337 mg/dL (Not Estab.)
[2021-10-14 19:43] LABS: Bacteria,Urine 1+ /lpf
== END ==
PROVIDERS: PCP Emergency Medicine; Visit Provider Internal Medicine Nephrology
DX: N18.2 Chronic kidney disease, stage 2 (mild) (principal)
CPT/HCPCS: 36415; 80069; 81001; 82570; 84155; 85025

== ENCOUNTER → 2021-10-15 14:08 | Outpatient (POV) | payer MEDICARE, MEDICAID, SELFPAY | PROVIDERS: Visit Provider Internal Medicine Nephrology | DX: Z00.00 Encounter for general adult medical examination without abnormal findings (principal) ==

== ENCOUNTER 2021-10-15 15:31 | Observation (INO) | payer MEDICARE, MEDICAID, SELFPAY ==
[2021-10-15] VITALS (10 sets, daily range): BP systolic 128–160; BP diastolic 69–81; PULSE 73–89; RESP 17–18; TEMP 36.6–37; O2SAT 94–96; BMI 25.0; BMI 25.9
--- NOTE | 2021-10-15 15:55 | XR_ITS ---
FINAL REPORT CLINICAL HISTORY: SOA, wheezing COMPARISON: July 31, 2021 FINDINGS: A single portable view of the chest was obtained. The heart size and pulmonary vascularity are within normal limits. The mediastinum is within normal limits. There is moderate pulmonary fibrosis/scarring which is visually somewhat worse. The bony thorax is intact. IMPRESSION: Moderate pulmonary fibrosis/scarring, visually somewhat worse. Reviewed, Interpreted and Dictated by Fredrick Lala III, MD Transcribed by Lissa Carias Authenticated and . [facility]
--- NOTE | 2021-10-15 16:03 | PC.NURSE ---
MESSAGE LEFT FOR NEUS TO CALL BACK
--- NOTE | 2021-10-15 16:09 | HMH.EDGENADL ---
Discharge Plan Disposition Patient Disposition: Admitted As Inpatient Condition: Fair Clinical Impressions Clinical Impression: Pyelonephritis, RAGHAV (acute kidney injury) Discharge ED Provider: Williams Phillips General Adult HPI General Chief complaint: Weakness Stated complaint: V&D possible UTI Time Seen by Provider: 10/15/21 15:40 Mode of Arrival: Ambulatory History of Present Illness HPI narrative: This is a 61-year-old female with history of hypertension, ANNIE on CPAP, COPD, CKD not currently on dialysis, type 2 diabetes, hypertension who is presenting with multiple complaints. Patient states that she has been feeling worse and just general malaise over the past few days. She was evaluated here in the emergency department 1 day prior to arrival and told to follow-up with her primary care doctor today, 10/15. Today, primary care doctor referred her back to the emergency department for admission out of concern for decreased kidney function. Patient states that she has also had dysuria, hematuria, hematochezia, cramping lower abdominal pain. Lower abdominal pain radiates to her bilateral flanks. Patient denies nausea, vomiting, fevers, chills, chest pain, shortness of breath, or any other history. Related Data Home Medications Medication Instructions Recorded Confirmed fluticasone propionate 50 1 spray intranasal DAILY Allergy 05/17/18 10/15/21 mcg/actuation nasal symptoms spray,suspension ipratropium 0.5 mg-albuterol 3 mg 3 ml inhalation QID Breathing 09/30/18 10/15/21 (2.5 mg base)/3 mL nebulization problems soln insulin glargine 100 unit/mL (3 20 unit SQ HS Diabetes 09/10/19 10/15/21 mL) subcutaneous pen ropinirole 1 mg tablet 1 mg PO BID Restless leg 01/05/20 10/15/21 albuterol sulfate 90 mcg/actuation 2 puff inhalation Q4HP PRN COPD 10/15/21 10/15/21 aerosol inhaler apixaban 5 mg tablet (Eliquis) 5 mg PO BID Blood thinner 10/15/21 10/15/21 atorvastatin 10 mg tablet 10 mg PO DAILY High cholesterol 10/15/21 10/15/21 buspirone 15 mg tablet 15 mg PO DAILY Anxiety 10/15/21 10/15/21 cholecalciferol (vitamin D3) 25 25 mcg PO DAILY vitamin 10/15/21 10/15/21 mcg (1,000 unit) tablet ergocalciferol (vitamin D2) 1,250 1,250 mcg PO DAILY vitamin 10/15/21 10/15/21 mcg (50,000 unit) capsule fluticasone furoate 100 100 mcg inhalation DAILY COPD 10/15/21 10/15/21 mcg/actuation blister powder for inhalation gabapentin 300 mg capsule 300 mg PO TID Pain 10/15/21 10/15/21 glucagon 1 mg/0.2 mL subcutaneous 1 mg SQ ONCE per 10/15/21 10/15/21 auto-injector ([employer] HypoPen 2-Pack) isosorbide mononitrate 30 mg 30 mg PO DAILY heart health 10/15/21 10/15/21 tablet,extended release 24 hr metformin 500 mg tablet,extended 500 mg PO BID Diabetes 10/15/21 10/15/21 release 24 hr pantoprazole 40 mg tablet,delayed 40 mg PO DAILY acid reflux 10/15/21 10/15/21 release quetiapine 200 mg tablet 200 mg PO DAILY per 10/15/21 10/15/21 sertraline 100 mg tablet 100 mg PO DAILY mood 10/15/21 10/15/21 topiramate 50 mg tablet 50 mg PO BID migrane 10/15/21 10/15/21 Previous Rx's Medication Instructions Recorded furosemide 80 mg tablet (Lasix) 80 mg PO BID Fluid #180 tabs 07/26/19 albuterol sulfate 0.63 mg/3 mL 0.63 mg (3 mL) inhalation QID 01/24/20 solution for nebulization Breathing problems #360 mL oxycodone-acetaminophen 7.5 mg-325 1 tab PO QID PRN pain #120 tabs 08/25/21 mg tablet (Percocet) Allergies Allergy/AdvReac Type Severity Reaction Status Date / Time methocarbamol Allergy Severe Altered Verified 08/25/21 13:33 mental status terbutaline [TERBUTALINE] Allergy Severe SWELLS Verified 08/25/21 13:33 THROAT aspirin [ASPIRIN] Allergy Intermediate I-RASH Verified 08/25/21 13:33 codeine [CODEINE] Allergy Intermediate Swelling Verified 08/25/21 13:33 of the Eye diphenhydramine Allergy Intermediate Hives Verified 08/25/21 13:33 [From Benadryl] Sulfa (Sulfonamide Allergy Intermediat
--- NOTE | 2021-10-15 16:13 | CT_ITS ---
PROCEDURE INFORMATION: Exam: CT Abdomen And Pelvis Without Contrast Exam date and time: 10/15/2021 4:35 PM Age: 61 years old Clinical indication: Abdominal pain; Generalized; Additional info: Lower abdominal cramping pain, b/l flank pain TECHNIQUE: Imaging protocol: Computed tomography of the abdomen and pelvis without contrast. Radiation optimization: All CT scans at this facility use at least one of these dose optimization techniques: automated exposure control; mA and/or kV adjustment per patient size (includes targeted exams where dose is matched to clinical indication); or iterative reconstruction. COMPARISON: [facility] CT abdomen pelvis wo con 09/05/2017 5:13 PM FINDINGS: Lungs: Chronic interstitial prominence and emphysematous changes in the visualized lower lungs. Calcific linear scarring at the posterior right lung base, calcified granuloma at the posterior left lower lobe. No consolidation. Liver: The liver is normal. Gallbladder and bile ducts: Gallbladder not seen, correlate for cholecystectomy. The biliary tree appears within normal limits post cholecystectomy. No calcified stones. Pancreas: Atrophic pancreas. No ductal dilatation. Spleen: No splenomegaly. Tiny calcified splenic granuloma series 3, image 17. Adrenal glands: Chronic right adrenal gland calcifications. Unremarkable left adrenal. No nodules. Kidneys and ureters: No hydronephrosis, hydroureter, or calcified obstructing ureteral stones. Mild nonspecific bilateral perinephric soft tissue stranding, new compared with 2018. Stomach and bowel: Diverticulosis coli, diverticula scattered throughout the colon. Slightly thickened appearance of the ascending colon compared with the prior exam which may be due to bowel contraction versus inflammation. There is no pericolic fluid. No extraluminal gas bubbles. No acute findings in the small intestine.The stomach is normal. Appendix: No findings of appendicitis. Intraperitoneal space: There is no significant free intraperitoneal fluid. There is no free intraperitoneal air. Vasculature: There is no aortic aneurysm. The vasculature demonstrates diffuse mild to moderate atherosclerotic calcification. Right common iliac artery stent noted. Lymph nodes: No significantly enlarged lymph nodes by short axis criteria. Urinary bladder: Bladder is unremarkable for the degree of distension, not well filled. No calcified stones. Reproductive: Post hysterectomy. No acute findings as visualized. Bones/joints: Right femur fixation hardware appears intact with no evidence of loosening or infection. Arthritis at the left hip joint. Osteopenia. Spinal degenerative changes. Nogq-yv-swaqrqal L4 vertebral compression fracture deformity is new compared with the prior CT from 09/05/2017, but appears likely chronic in the interval; no discrete fracture line visible. There is associated spinal stenosis at L3-L4, which appears moderately severe. Mild chronic appearing anterior wedge compression deformities in the lower thoracic spine with prominent multilevel degenerative disc narrowing, vacuum phenomenon and spondylosis. Soft tissues: There are no soft tissue masses or fluid collections. IMPRESSION: 1. Extensive diverticulosis coli, diverticula scattered throughout the entire colon. Slightly thickened appearance of the ascending colon compared with the prior exam which could be artifact from hypo distension, versus acute inflammation. Correlate for possible early colitis or diverticulitis. There is no pericolic fluid. No extraluminal gas bubbles. 2. There is new bilateral perinephric soft tissue stranding compared with the prior CT, but no h
[2021-10-15 16:26] LABS: Basophils # 0.1 K/mm3 (0-0.2); Eosinophils # 0.2 K/mm3 (0.0-0.4); Eosinophils % 1.8 % (0.1-12.0); Hematocrit 45.1 % (37.0-47.0); Hemoglobin 13.6 g/dL (12.2-16.2); Lymphocytes # 2.9 K/mm3 (0.7-4.5); Lymphocytes % 28.3 % (10-50); Mean Corpuscular HGB Conc 30.2 g/dL (31.8-35.4); Mean Corpuscular Hemoglobin 27.8 pg (27.0-31.2); Mean Corpuscular Volume 92.1 fl (81-99); Mean Platelet Volume 8.1 fl (7.4-10.4); Monocytes # 0.6 K/mm3 (0.1-1.0); Monocytes % 6.1 % (1.7-9.3); Neutrophils # 6.5 K/mm3 (1.8-7.8); Neutrophils % 62.8 % (37.0-80.0); Platelet Count 302 K/mm3 (142-424); Red Blood Count 4.89 M/mm3 (4.20-5.40); Red Cell Distribution Width 14.5 % (11.5-17.5); White Blood Count 10.3 K/mm3 (4.8-10.8)
[2021-10-15 16:36] LABS: Alanine Aminotransferase 30 U/L (12-78); Albumin Level 4.2 g/dl (3.5-5.0); Albumin/Globulin Ratio 1.1 (1.1-1.8); Alkaline Phosphatase 120 U/L (38-126); Anion Gap 14.4 mEq/L (5-15); Aspartate Amino Transferase 38 U/L (14-36); Bilirubin,Total 0.7 mg/dl (0.2-1.3); Blood Urea Nitrogen 47 mg/dl (7-17); Calcium 8.9 mg/dl (8.4-10.2); Carbon Dioxide 24 mmol/L (22.0-30.0); Chloride 108 mmol/L (98-107); Creatinine Clearance Estimated 43 mL/min (50-200); Estimated Glomerular Filt Rate 35 ml/min (>60); GFR (African American) 43 ML/MIN (>60); Globulin 3.8 g/dL (1.3-3.2); Glucose 284 mg/dl (74-100); Lipase 113 U/L (23-300); Potassium 5.4 mmoL/L (3.5-5.1); Sodium 141 mmol/L (136-145)
[2021-10-15 16:48] LABS: NT Pro Brain Natriuretic Pep. 213 pg/mL (0-125)
[2021-10-15 16:50] LABS: Troponin I < 0.01 ng/ml (0.00-0.034)
[2021-10-15 18:09] LABS: Coronavirus 19, PCR Not Detected (NotDetected); Influenza A, PCR Not Detected (NotDetected); Influenza B, PCR Not Detected (NotDetected)
--- NOTE | 2021-10-15 18:12 | PC.NURSE ---
called report to shonna benavidez
--- NOTE | 2021-10-15 20:08 | PC.NURSE ---
PT ARRIVEED VIA WHEEL CHAIR TO FLOOR AT THIS TIME.
--- NOTE | 2021-10-16 01:11 | PC.NURSE ---
RT NOTE: PT WAS ORDERED ALBUTEROL NEB TREATMENTS QID WITH THE FIRST TO BE GIVEN @2099. THE ORDER IN THE APR WAS INCORRECT AND WAS CHANGED BUT WHEN CHANGED IT PUT THE FIRST DOSE WAS TO BE GIVEN TUESDAY MORNING. THOUGH THE TREATMENT FOR 2099 WAS GIVEN.
[2021-10-16 04:00] VITALS: BP 127/62; PULSE 69; RESP 16; TEMP 36.7; O2SAT 92
[2021-10-16 05:00] VITALS: BMI 25.9
--- NOTE | 2021-10-16 05:04 | PC.NURSE ---
pt admitted this shift, pt is alert and oriented x4, VSS, 02 at 3L pnc with o2 sats 92%; lung sounds with expiratory wheezes noted, voiding without difficulty, dexcom and omnipod intact to abdomen, clarification needed this am on medication dosing per [facility], pt up to bsc by self, skin pwd, no other issues noted at this time.
[2021-10-16 06:30] VITALS: PULSE 81; PULSE 83
--- NOTE | 2021-10-16 07:20 | EXP.PHA.VTE ---
[facility] VTE Monitoring Patient Demographics Admission date: 10/15/21 Report Date: 10/16/21 Time: 07:20 Patient Allergies methocarbamol Allergy (Severe, Verified 08/25/21 13:33) Altered mental status terbutaline [TERBUTALINE] Allergy (Severe, Verified 08/25/21 13:33) SWELLS THROAT aspirin [ASPIRIN] Allergy (Intermediate, Verified 08/25/21 13:33) I-RASH codeine [CODEINE] Allergy (Intermediate, Verified 08/25/21 13:33) Swelling of the Eye diphenhydramine [From Benadryl] Allergy (Intermediate, Verified 08/25/21 13:33) Hives Sulfa (Sulfonamide Antibiotics) [SULFA (SULFONAMIDE ANTIBIOTICS)] Allergy (Intermediate, Verified 08/25/21 13:33) Hives sulfamethoxazole [From Bactrim] Allergy (Intermediate, Verified 08/25/21 13:33) Hives trimethoprim [From Bactrim] Allergy (Intermediate, Verified 08/25/21 13:33) Hives naproxen [NAPROXEN] Allergy (Mild, Verified 08/25/21 13:33) itching tramadol [TRAMADOL] Allergy (Mild, Verified 08/25/21 13:33) Vomiting citalopram [CITALOPRAM] Allergy (Unknown, Verified 08/25/21 13:33) SKIN PEEL erythromycin base [ERYTHROMYCIN BASE] Allergy (Unknown, Verified 08/25/21 13:33) I-RASH Penicillins [PENICILLINS] Allergy (Unknown, Verified 08/25/21 13:33) I-RASH bupropion [BUPROPION] Adverse Reaction (Severe, Verified 08/25/21 13:33) Hallucinating duloxetine [DULOXETINE] Adverse Reaction (Severe, Verified 08/25/21 13:33) Hallucinating pregabalin [PREGABALIN] Adverse Reaction (Severe, Verified 08/25/21 13:33) Hallucinating celecoxib [From CELEBREX] Adverse Reaction (Mild, Verified 08/25/21 13:33) Vomiting Height: 1.65 m Weight: 70.488 kg Current Active Problems (Updated 10/15/21 @ 19:57 by Williams Phillips MD) Pyelonephritis (Acute) RAGHAV (acute kidney injury) (Acute) VTE Risk Labs: VTE Related Lab Results Hgb 13.6 g/dL (12.2-16.2) 10/15/21 16:12 Hct 45.1 % (37.0-47.0) 10/15/21 16:12 Plt Count 302 K/mm3 (142-424) 10/15/21 16:12 BUN 47 mg/dl (7-17) H 10/15/21 16:12 Creatinine 1.50 mg/dl (0.52-1.04) H D 10/15/21 16:12 Estimated Creat Clear 43 mL/min (50-200) 10/15/21 16:12 Was VTE Risk Assessment Performed: Yes VTE Score: 6 VTE Risk Level: Moderate Risk Prophylaxis VTE Prophylaxis Ordered?: Yes Types of VTE Prophylaxis: TEDS Thigh High and Pharmacological Location of Applied Device: Bilateral Lower Extremeties Pharmacologic Type: Other (ELIQUIS)
[2021-10-16 08:00] VITALS: BP 118/56; PULSE 80; RESP 18; TEMP 36.8; O2SAT 98
[2021-10-16 08:16] LABS: POC Glucose,Bedside 305 (70-110)
--- NOTE | 2021-10-16 08:27 | PC.NURSE ---
Spoke with Jack about pt being a diabetic. I told him that she doesn't have ACHS not coverage. I took a FS and it was 305. I told him about it.
--- NOTE | 2021-10-16 09:02 | EXP.HPDC ---
General Admission date:: 10/15/21 Discharge date: 10/16/21 *Admission Date: 10/15/21 *Chief complaint: Weakness *History of present illness: 61-year-old female patient presents to the Psychiatric emergency department with reports of general malaise and feeling worse over the past few days. She reports her primary care doctor referred her to the emergency department for concern of decreased kidney function. She reports she has had dysuria, hematuria, lower abdominal cramping radiating to her bilateral flanks for several days. She denies nausea/vomiting/diarrhea, fever chills body aches, shortness of breath, and has taste and smell. Gait BUN 47 creatinine 2.9 UA revealed trace leukocytes and 1+ bacteria PFSH [facility] Medical History (Updated 10/20/21 @ 00:00 by Prisca Hills) Abdominal pain Abnormal computed tomography angiography (CTA) of abdomen and pelvis Acquired hammer toes of both feet Acute exacerbation of chronic obstructive airways disease Acute worsening of stage 3 chronic kidney disease RAGHAV (acute kidney injury) Anxiety Atrial fibrillation Back pain C. difficile colitis Cauda equina syndrome Cellulitis of right foot Chest pain Chronic deep vein thrombosis (DVT) of right lower extremity Chronic kidney disease Claudication Closed femur fracture Community acquired pneumonia Congestive heart failure COPD (chronic obstructive pulmonary disease) Decreased pedal pulses Depression Diabetes mellitus Diabetes mellitus with neuropathy Diabetes mellitus, type 2 Diabetic peripheral neuropathy associated with type 2 diabetes mellitus DVT (deep venous thrombosis) Elevated left ventricular end-diastolic pressure (LVEDP) Endothelial dysfunction of coronary artery Failure to thrive Foot pain, left Foot pain, right Hep B w/o coma Hep C w/o coma, chronic Hepatitis B Hepatitis C Hip fracture History of gastroesophageal reflux (GERD) History of hip fracture History of transient ischemic attack (TIA) HTN (hypertension) Hyperlipidemia Instability of left knee joint Langerhan's cell histiocytosis Left knee pain Left leg swelling Lumbar compression fracture Lymphedema Migraine Neck Pain Normal coronary arteries Obesity (BMI 30.0-34.9) 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, bilateral Other specified symptoms and signs involving the circulatory and respiratory systems Overweight (BMI 25.0-29.9) PAD (peripheral artery disease) Plantar fasciitis, left Primary osteoarthritis of both feet Pyelonephritis Renal insufficiency Restless leg syndrome Sepsis Sleep apnea SOB (shortness of breath) on exertion Vaginal pain Surgical History (Updated 10/15/21 @ 17:13 by Meli Davila RN) History of cardiac cath Family History (Updated 10/15/21 @ 17:13 by Meli Davila RN) Other Coronary artery disease Family history of diabetes mellitus type II Family history of hyperlipidemia Family history of hypertension Social History (Updated 10/15/21 @ 17:15 by Meli Davila RN) Smoking Status: Former smoker pack-years: 30 second hand exposure: Yes alcohol intake: never counseling provided: none substance use type: denies use current occupational status: retired Travel in the last 8 weeks: None household members: none housing: house current occupational exposures/hazards: No caffeine: No Review of Systems Constitutional Constitutional: Reports fatigue and Reports weakness Eyes Eyes: Reports system reviewed and no additional complaints, except as documented ENT Ears, Nose, Mouth, and Throat: Reports system reviewed and no additional complaints, except as documented *Cardiovascular Cardiovascular: Reports system reviewed and no additional complaints, except as documented, Reports dyspnea and Reports dyspnea on exertion *Respiratory Respiratory: Reports cough, Reports dyspnea and Reports dyspnea on exertion *Gastrointestinal Gastrointestinal: Rep
--- NOTE | 2021-10-16 09:18 | HMH.PHAINT1 ---
Pharmacy Intervention Comments: Home medication list verified using list from patient, cardiology office and Clinic Pharmacy. pt is a poor historian, list is as complete as can be reasonably hoped
[2021-10-16 10:50] VITALS: PULSE 81
--- NOTE | 2021-10-16 11:33 | PC.NURSE ---
Have attempted to d/c pt unable to since meds on d/c are not finished. Jack is aware and is working on it. Once resolved I will D/C.
--- NOTE | 2021-10-16 12:07 | PC.NURSE ---
Spoke with Pt since D/C order is printed and ready. She stated that her brother is coming to get her and she will call him and try and get an estimated time when he can be here.
--- NOTE | 2021-10-20 13:57 | CARE MANAGER ---
Called and spoke with Ms. Bartlett r/t post discharge status. Patient states that she is feeling a little bit better. She plans to attend her f/u appointment with Dr. Urban and was not started on any new medications at discharge. She denies any issues or concerns at this time.
== END 2021-10-16 14:25 | disposition home or self-care (01) ==
LOC: ER 16:31 → 2ND 16:55
PROVIDERS: Admitting Provider Family Medicine; Emergency Provider Emergency Medicine; PCP Emergency Medicine; Visit Provider Emergency Medicine
DX: N17.9 Acute kidney failure, unspecified (principal); I48.91 Unspecified atrial fibrillation; Z87.891 Personal history of nicotine dependence; Z79.899 Other long term (current) drug therapy; E11.65 Type 2 diabetes mellitus with hyperglycemia; Z79.4 Long term (current) use of insulin; Z88.8 Allergy status to other drugs, medicaments and biological substances; I70.213 Atherosclerosis of native arteries of extremities with intermittent claudication, bilateral legs; N18.9 Chronic kidney disease, unspecified; E11.22 Type 2 diabetes mellitus with diabetic chronic kidney disease; R06.9 Unspecified abnormalities of breathing
CPT/HCPCS: G0378; 71045; 74176; 80053; 82962; 83690; 83880; 84484; 85025; 87086; 87088; 87186; 94640; 99285; C9803; J0696; U0003; U0005

== ENCOUNTER → 2021-11-09 06:58 | Outpatient (CLI) | payer MEDICARE, MEDICAID, SELFPAY ==
[2021-11-09 16:56] LABS: Adenovirus F 40/41, stool Not Detected (NotDetected); Astrovirus Not Detected (NotDetected); Cryptosporidium Not Detected (NotDetected); Cyclospora Cayetanesis Not Detected (NotDetected); Entamoeba histolytica Not Detected (NotDetected); Enteroaggregative E coli Not Detected (NotDetected); Enteropathogenic E coli Not Detected (NotDetected); Enterotoxigenic E coli Not Detected (NotDetected); Giardia lamblia Not Detected (NotDetected); Norovirus Not Detected (NotDetected); Plesimonas Shigalloides, PCR Not Detected (NotDetected); Rotavirus A Not Detected (NotDetected); Salmonella, PCR Not Detected (NotDetected); Sapovirus Not Detected (NotDetected); Shiga-like toxin E coli Not Detected (NotDetected); Shigella Enterovasive E coli Not Detected (NotDetected); Vibrio Cholerae Not Detected (NotDetected); Vibrio, PCR Not Detected (NotDetected); Yersinia Entercolitica, PCR Not Detected (NotDetected)
[2021-11-09 19:56] LABS: Campylobacter Detected (NotDetected); Clostridium Difficile A/B, PCR Detected (NotDetected)
== END ==
PROVIDERS: PCP Emergency Medicine; Visit Provider Emergency Medicine
DX: R19.7 Diarrhea, unspecified (principal); A04.72 Enterocolitis due to Clostridium difficile, not specified as recurrent; A04.5 Campylobacter enteritis
CPT/HCPCS: 87506

== ENCOUNTER → 2021-12-21 14:45 | Outpatient (CLI) | payer MEDICARE, MEDICAID, SELFPAY ==
[2021-12-21 15:27] LABS: Creatinine,Urine Random 236 mg/dL (Not Estab.)
== END ==
PROVIDERS: PCP Emergency Medicine; Visit Provider Emergency Medicine
DX: E11.65 Type 2 diabetes mellitus with hyperglycemia (principal); Z79.4 Long term (current) use of insulin
CPT/HCPCS: 82043; 82570

== ENCOUNTER → 2022-02-11 15:29 | Outpatient (CLI) | payer MEDICARE, MEDICAID, SELFPAY ==
[2022-02-11 15:38] LABS: Microscopic, Urine URINE MICROSCOPIC (MICROSCOPIC)
[2022-02-11 15:53] LABS: Hematocrit 48.8 % (37.0-47.0); Mean Corpuscular HGB Conc 30.7 g/dL (31.8-35.4); Mean Corpuscular Hemoglobin 27.7 pg (27.0-31.2); Mean Corpuscular Volume 90.2 fl (81-99); Platelet Count 305 K/mm3 (142-424); Red Blood Count 5.41 M/mm3 (4.20-5.40); Red Cell Distribution Width 14.5 % (11.5-17.5); White Blood Count 8.1 K/mm3 (4.8-10.8)
[2022-02-11 16:44] LABS: Albumin Level 3.9 g/dl (3.5-5.0); Blood Urea Nitrogen 54 mg/dl (7-17); Calcium 9.1 mg/dl (8.4-10.2); Carbon Dioxide 23 mmol/L (22.0-30.0); Chloride 105 mmol/L (98-107); Estimated Glomerular Filt Rate 31 ml/min (>60); GFR (African American) 37 ML/MIN (>60); Glucose 196 mg/dl (74-100); Phosphorous 4.6 mg/dl (2.5-4.5); Sodium 140 mmol/L (136-145)
[2022-02-11 17:01] LABS: 25-OH Vitamin D, Total 31.5 ng/mL (30-100)
[2022-02-11 18:39] LABS: Creatinine,Urine Random 124 mg/dL (Not Estab.)
[2022-02-11 18:40] LABS: Appearance,Urine CLEAR (Clear); Bilirubin,Urine Negative (Negative); Blood, Urine TRACE-I (Negative); Color,Urine YELLOW (Yellow); Glucose,Urine (UA) 3+ (Negative); Ketones,Urine TRACE (Negative); Leukocyte Esterase,Urine Negative (Negative); Nitrate,Urine Negative (Negative); PH,Urine 5.5 (5.0-8.5); Protein,Urine 2+ (Negative); Specific Gravity, Urine 1.025 (1.005-1.030); Urobilinogen,Urine 0.2 EU/dl (0.2)
[2022-02-11 19:32] LABS: RBC,Urine Occasional #/hpf (0-3); Squamous Epithelial Cell,Urine Occasional #/hpf (0-5)
== END ==
PROVIDERS: PCP Emergency Medicine; Visit Provider Internal Medicine Nephrology
DX: N18.9 Chronic kidney disease, unspecified (principal); N17.9 Acute kidney failure, unspecified; N18.30 Chronic kidney disease, stage 3 unspecified
CPT/HCPCS: 36415; 80069; 81001; 82306; 82570; 83970; 84155; 85014; 85018; 85048; 85049

== ENCOUNTER → 2022-02-18 16:15 | Outpatient (POV) | payer MEDICARE, MEDICAID, SELFPAY | PROVIDERS: Visit Provider Internal Medicine Nephrology | DX: Z00.00 Encounter for general adult medical examination without abnormal findings (principal) ==

== ENCOUNTER → 2022-02-19 15:09 | Outpatient (CLI) | payer MEDICARE, MEDICAID, SELFPAY ==
[2022-02-19 19:40] LABS: Barbiturates Screen,Urine Negative ng/ml (<200)
[2022-02-19 19:41] LABS: Benzodiazepines Screen,Urine Negative ng/ml (<200)
[2022-02-19 19:42] LABS: Cannabinoid Screen,Urine Positive ng/ml (<50)
[2022-02-19 19:43] LABS: Cocaine Screen,Urine Negative ng/ml (<300)
[2022-02-19 19:44] LABS: Methadone Screen,Urine Negative ng/ml (<300); Opiate Screen,Urine Negative ng/ml (<300)
[2022-02-19 19:45] LABS: Phencyclidine Screen,Urine Negative ng/ml (<25)
[2022-02-19 19:49] LABS: Amphetamine/Metha Screen,Urine Negative ng/ml (<1000)
== END ==
PROVIDERS: PCP Emergency Medicine; Visit Provider Emergency Medicine
DX: Z79.899 Other long term (current) drug therapy (principal)
CPT/HCPCS: 80305

== ENCOUNTER 2022-02-23 07:53 | Day surgery (SDC) | payer MEDICARE, MEDICAID, SELFPAY ==
--- NOTE | 2022-02-22 14:06 | SUR.PREOP ---
Dr. Curry's office notified of allergy to terbutaline and potential cross sensitivity to phenylephrine. Dr. Curry wants to proceed with using phenylephrine.
[2022-02-23] VITALS (8 sets, daily range): BP systolic 119–157; BP diastolic 64–91; PULSE 76–87; RESP 14–18; TEMP 36.3–36.6; O2SAT 91–99; BMI 22.1
[2022-02-23 11:08] LABS: POC Glucose,Bedside 85 (70-110)
== END 2022-02-23 09:40 | disposition home or self-care (01) ==
PROVIDERS: PCP Emergency Medicine; Visit Provider Ophthalmology
DX: E11.36 Type 2 diabetes mellitus with diabetic cataract (principal); H25.9 Unspecified age-related cataract; Z79.4 Long term (current) use of insulin; Z79.899 Other long term (current) drug therapy
CPT/HCPCS: 66984; 82962; V2632

== ENCOUNTER 2022-03-09 08:17 | Day surgery (SDC) | payer MEDICARE, MEDICAID, SELFPAY ==
[2022-03-05 11:42] VITALS: BMI 21.4
[2022-03-09] VITALS (7 sets, daily range): BP systolic 127–141; BP diastolic 72–83; PULSE 85–93; RESP 16–18; TEMP 36.3–36.4; O2SAT 92–98
[2022-03-09 09:02] LABS: POC Glucose,Bedside 194 (70-110)
== END 2022-03-09 09:46 | disposition home or self-care (01) ==
PROVIDERS: PCP Emergency Medicine; Visit Provider Ophthalmology
DX: H25.813 Combined forms of age-related cataract, bilateral (principal); E11.9 Type 2 diabetes mellitus without complications
CPT/HCPCS: 66984; 82962; V2632

== ENCOUNTER → 2022-04-16 23:35 | Outpatient (CLI) | payer MEDICARE, MEDICAID, SELFPAY ==
[2022-04-16 18:49] LABS: Amphetamine/Metha Screen,Urine Negative ng/ml (<1000); Barbiturates Screen,Urine Negative ng/ml (<200)
[2022-04-16 18:50] LABS: Benzodiazepines Screen,Urine Negative ng/ml (<200); Cannabinoid Screen,Urine Positive ng/ml (<50)
[2022-04-16 18:51] LABS: Cocaine Screen,Urine Negative ng/ml (<300)
[2022-04-16 18:52] LABS: Methadone Screen,Urine Negative ng/ml (<300); Opiate Screen,Urine Negative ng/ml (<300)
[2022-04-16 18:53] LABS: Phencyclidine Screen,Urine Negative ng/ml (<25)
== END ==
PROVIDERS: PCP Emergency Medicine; Visit Provider Emergency Medicine
DX: Z79.899 Other long term (current) drug therapy (principal)
CPT/HCPCS: 80305

== ENCOUNTER → 2022-04-22 17:43 | Outpatient (CLI) | payer MEDICARE, MEDICAID, SELFPAY ==
[2022-04-22 18:36] LABS: Microscopic, Urine URINE MICROSCOPIC (MICROSCOPIC)
[2022-04-22 18:53] LABS: Basophils # 0.2 K/mm3 (0-0.2); Eosinophils # 0.2 K/mm3 (0.0-0.4); Hematocrit 49.9 % (37.0-47.0); Lymphocytes # 6.4 K/mm3 (0.7-4.5); Lymphocytes % 40.9 % (10-50); Mean Corpuscular HGB Conc 32.1 g/dL (31.8-35.4); Mean Corpuscular Hemoglobin 28.5 pg (27.0-31.2); Mean Corpuscular Volume 88.6 fl (81-99); Mean Platelet Volume 8.2 fl (7.4-10.4); Monocytes # 0.9 K/mm3 (0.1-1.0); Monocytes % 5.5 % (1.7-9.3); Neutrophils # 8.1 K/mm3 (1.8-7.8); Neutrophils % 51.6 % (37.0-80.0); Platelet Count 371 K/mm3 (142-424); Red Blood Count 5.63 M/mm3 (4.20-5.40); Red Cell Distribution Width 15.7 % (11.5-17.5); White Blood Count 15.7 K/mm3 (4.8-10.8)
[2022-04-22 18:55] LABS: Appearance,Urine SL CLOUDY (Clear); Blood, Urine TRACE-I (Negative); Chloride 104 mmol/L (98-107); Color,Urine YELLOW (Yellow); Glucose,Urine (UA) 2+ (Negative); Ketones,Urine TRACE (Negative); Leukocyte Esterase,Urine Negative (Negative); Nitrate,Urine Negative (Negative); PH,Urine 5.5 (5.0-8.5); Protein,Urine 2+ (Negative); Specific Gravity, Urine >= 1.030 (1.005-1.030); Urobilinogen,Urine 0.2 EU/dl (0.2)
[2022-04-22 18:57] LABS: Albumin Level 4.6 g/dl (3.5-5.0); Anion Gap 10.6 mEq/L (5-15); Bilirubin,Urine 1+ (Negative); Blood Urea Nitrogen 32 mg/dl (7-17); Calcium 9.8 mg/dl (8.4-10.2); Carbon Dioxide 28 mmol/L (22.0-30.0); Estimated Glomerular Filt Rate 38 ml/min (>60); GFR (African American) 46 ML/MIN (>60); Glucose 167 mg/dl (74-100); MANUAL DIFFERENTIAL MANUAL DIFFERENTIAL (MANUAL DIFF); Phosphorous 3.8 mg/dl (2.5-4.5); Potassium 4.6 mmoL/L (3.5-5.1); Sodium 138 mmol/L (136-145)
[2022-04-22 19:04] LABS: Creatinine,Urine Random 179 mg/dL (Not Estab.)
[2022-04-22 19:11] LABS: Bacteria,Urine Trace /lpf; RBC,Urine Occasional #/hpf (0-3); WBC,Urine Occasional #/hpf (0-3)
[2022-04-22 21:16] LABS: Eosinophils % 2 % (0-3); Lymphocytes % 42 % (10-50); Neutrophils % 55 % (42-76); Total Cells Counted 100
[2022-04-22 21:17] LABS: Platelet Estimate Normal; Stomatocytes 1+
== END ==
PROVIDERS: PCP Emergency Medicine; Visit Provider Internal Medicine Nephrology
DX: N18.9 Chronic kidney disease, unspecified (principal); N17.9 Acute kidney failure, unspecified
CPT/HCPCS: 36415; 80069; 81001; 82570; 84155; 85007; 85025

== ENCOUNTER → 2022-04-26 16:04 | Outpatient (POV) | payer MEDICARE, MEDICAID, SELFPAY | PROVIDERS: Visit Provider Internal Medicine Nephrology | DX: Z00.00 Encounter for general adult medical examination without abnormal findings (principal) ==

== ENCOUNTER → 2022-05-11 13:40 | Outpatient (CLI) | payer MEDICARE, MEDICAID, SELFPAY ==
--- NOTE | 2022-05-11 13:43 | US_ITS ---
FINAL REPORT CLINICAL HISTORY: claudication, PAD- known Lt leg arterial stent, Smoker, DM, Weight loss FINDINGS: ANKLE-BRACHIAL PRESSURE INDICES Pressure indices are as follows: RIGHT LOWER EXTREMITY: Ankle-brachial pressure index: 1.4 Comments: Vessels are noncompressible likely due to heavy calcification with monophasic waveforms. LEFT LOWER EXTREMITY: Ankle-brachial pressure index: 1.5 Comments: Vessels are noncompressible likely due to heavy calcification with monophasic waveforms. IMPRESSION: Noncompressible vessels likely due to heavy calcification with monophasic waveforms, probable prominent atherosclerotic disease. Reviewed, Interpreted and Dictated by Laura Mike MD Transcribed by Lissa Carias Authenticated and [facility]
== END ==
PROVIDERS: PCP Emergency Medicine; Visit Provider Internal Medicine Cardiovascular Disease
DX: I10 Essential (primary) hypertension (principal); I73.9 Peripheral vascular disease, unspecified; R06.00 Dyspnea, unspecified; R07.9 Chest pain, unspecified; R94.31 Abnormal electrocardiogram [ECG] [EKG]
CPT/HCPCS: 93923

== ENCOUNTER → 2022-06-08 23:17 | Outpatient (CLI) | payer MEDICARE, MEDICAID, SELFPAY ==
[2022-06-08 20:43] LABS: Amphetamine/Metha Screen,Urine Negative ng/ml (<1000)
[2022-06-08 20:44] LABS: Barbiturates Screen,Urine Negative ng/ml (<200); Benzodiazepines Screen,Urine Negative ng/ml (<200)
[2022-06-08 20:48] LABS: Cannabinoid Screen,Urine Negative ng/ml (<50)
[2022-06-08 20:49] LABS: Cocaine Screen,Urine Negative ng/ml (<300)
[2022-06-08 20:50] LABS: Methadone Screen,Urine Negative ng/ml (<300)
[2022-06-08 20:53] LABS: Opiate Screen,Urine Negative ng/ml (<300)
[2022-06-08 20:54] LABS: Phencyclidine Screen,Urine Negative ng/ml (<25)
== END ==
PROVIDERS: PCP Emergency Medicine; Visit Provider Emergency Medicine
DX: M54.16 Radiculopathy, lumbar region (principal)
CPT/HCPCS: 80305

== ENCOUNTER → 2022-07-08 11:59 | Outpatient (CLI) | payer MEDICARE, MEDICAID, SELFPAY ==
--- NOTE | 2022-07-08 12:00 | NM_ITS ---
APPROVED REPORT Exam: Nuclear Stress Test Indication: HTN, DM, HYPERLIPIDEMIA, TOB USE, FM HX, C.P., SOB Patient Location: Outpatient Stress Tech: [facility] Tech:VASILE Torres RT (R)(N)(M) Ht: 5 ft 4 in Wt: 130 lbs Bra Size: D HR: 81 bpm BP: 145/81 mmHg BSA: 1.63 m2 Rhythm: NSR TID: 1.23 BMI: 22.3 History: HTN, DM, HYPERLIPIDEMIA, TOB USE, FM HX, C.P., SOB PT COULD NOT LAY PRONE FOR IMAGES Procedure: Patient received 0.4 mg of intravenous Lexiscan, resting heart rate 81 bpm, resting blood pressure 145/81 mmHg, with Lexiscan maximum heart rate achieved was 100 bpm which is 63 % of the maximum predicted heart rate and blood pressure was 123/69 mmHg. PT DID C/O OF C.P. Cardiac Stress and Resting SPECT Images: Cardiac Stress and Resting SPECT images were obtained using technetium 99m Myoview 31.6 mCi stress and 10.16 mCi at rest. Prone stress images are not available as the patient was unable to lie flat on her abdomen. Resting and supine stress inaging demonstrate a medium-sized, mild, predominantly reversible perfusion defect in the mid to distal anterior LV wall. There is borderline increase in transient ischemic dilatation ratio (TID=1.23), which may be suggestive of possible balanced ischemia or multivessel disease. Gated imaging demonstrates normal global LV systolic function with mild hypokinesis in the mid anterior LV wall. LVEF is calculated at 65%. Conclusion: Medium-sized, mild, predominantly reversible perfusion defect in the mid to distal anterior LV wall. Findings are consistent with reversible ischemia. Borderline increase in transient ischemic dilatation ratio (TID=1.23), which may be suggestive of possible balanced ischemia or multivessel disease. Gated imaging demonstrates normal global LV systolic function with mild hypokinesis in the mid anterior LV wall. LVEF is calculated at 65%. Electronically signed by : Diane Jay, 07/09/2022 00:52:01
--- NOTE | 2022-07-08 13:47 | CA_ITS ---
APPROVED REPORT Exam: Pharmacologic Technologist: Char Chen, Ht: 5 ft 4 in Wt: 137 lbs BSA: 1.67 m2 HR: 81 bpm BP: 145/81 mmHg Indications: SOA, CP Medical History Medications: Isosorbide,,,,, Metformin,,,,, Gabapentin,,,,, Pantoprazole,,,,, Atorvastatin,,,,, PERCOCET,,,,, TopIRAMATE,,,,, INSULIN,,,,, Albuterol,,,,, CloPIdogrel,,,,, Famotidine,,,,, Apixaban,,,,, Stress Test Details Test: LEXISCAN Reason for pharmacologic stress test: physical limitation. HR Resting HR: 80 bpm Max Heart Rate (APMHR): 159 bpm Max HR Achieved: 102 bpm Target HR (85% APMHR): 135 bpm % of APMHR: 64 Recovery HR: 98 bpm BP Resting BP: 145.0/81.0 mmHg Max BP: 155.0/82.0 mmHg Recovery BP: 155.0/82.0 mmHg ECG Resting ECG: NSR, No ST-changes Stress ECG: Sinus tachycardia ST Change: No change Clinical Exercise duration: 04:00 min Highest Stage Achieved: Exercise capacity: n/a METs Stress ECG Conclusion Stress 1 minute: SOA 2 minute: SOA, CP, [place] 3 minute: anxiety Recovery 1 minute: Aminophyline 100mg slow IV given. 3 minute: Feels somewhat better. 5 minute: Feels better but still anxious. Symptoms: SOA, mild chest discomfort, anxiety. Arrhythmias/Ectopy: None. ST-T Changes: No significant changes. Conclusion: Unremarkable Lexiscan stress. Myoview images reported separately. Test Summary REST . . . . . . . Sitting REST . . . . . . . Resting REST 04:35 . . 80 . 145/ 81 . . Stage 1 01:00 . . 93 . . . . Stage 2 01:00 . . 101 . 123/ 69 . . Stage 3 01:00 . . 99 . 125/ 72 . . Stage 4 01:00 . . 99 . 132/ 73 . Stop exercise at 04:00 RECOVERY 01:00 . . 97 . . . . RECOVERY 02:00 . . 96 . . . . RECOVERY 03:00 . . 94 . . . . RECOVERY 04:00 . . 94 . 145/ 81 . . RECOVERY 05:00 . . 98 . 145/ 81 . . RECOVERY 05:37 . . 100 . 155/ 82 . . Electronically signed by : Diane Jay, 07/09/2022 00:43:11
== END ==
LOC: RAD 12:00
PROVIDERS: PCP Emergency Medicine; Visit Provider Nurse Practitioner
DX: I10 Essential (primary) hypertension (principal); I73.9 Peripheral vascular disease, unspecified; R06.09 Other forms of dyspnea; R07.9 Chest pain, unspecified; R68.89 Other general symptoms and signs; R94.31 Abnormal electrocardiogram [ECG] [EKG]; I48.0 Paroxysmal atrial fibrillation; N28.9 Disorder of kidney and ureter, unspecified; R06.02 Shortness of breath; R55 Syncope and collapse; I20.8 Other forms of angina pectoris
CPT/HCPCS: 78452; 93017; 93306; A9502; J0280; J2785

== ENCOUNTER 2022-07-22 09:01 | Day surgery (SDC) | payer MEDICARE, MEDICAID, SELFPAY ==
[2022-07-22] VITALS (9 sets, daily range): BP systolic 121–153; BP diastolic 48–97; PULSE 69–92; RESP 16–20; O2SAT 92–96; BMI 23.0
--- NOTE | 2022-07-22 07:13 | IR_ITS ---
APPROVED REPORT Patient Location: Outpatient PROCEDURES Left heart catheterization Left ventriculogram Selective coronary angiogram Catheter placement in the right external iliac artery Right external iliac artery antegrade angiogram with unilateral runoff to the right foot Catheter placement in the left external iliac artery Left external iliac artery antegrade angiogram with unilateral runoff to the left foot Catheter placed into the distal abdominal aorta Abdominal aortography INDICATION Angina pectoris, Abnormal Myoview, Rincon claudication class III, Abnormal DAVE Informed consent was obtained prior to the procedure. COMPLICATIONS None Estimated Blood Loss: Less than 10 mls TECHNIQUE One percent lidocaine used to anesthetize the right anterior aspect of the wrist. The right radial artery was accessed via the Seldinger technique. A 6 Arabic sheath was placed in the right radial artery. 150 mg magnesium sulfate, 800 mcg of nitroglycerin, 1mg Lidocaine and 5000 U Heparin were given through the arterial sheath. The papa catheter was also used to perform left heart catheterization, left ventriculogram and selective coronary angiogram. At the end of the diagnostic cardiac catheterization a PV multi curve was placed down the descending aorta and into the right external iliac artery under fluoroscopic guidance. Antegrade angiography was performed with unilateral runoff to the right foot. This procedure was repeated in the left common and external iliac artery. Following this the catheter was pulled back to the distal abdominal aorta were distal abdominal arthrography was performed. At the end the procedure the apparatus was removed the sheath was removed and hemostasis was achieved using TR banding patient was transferred to the postop putting in stable condition ANGIOGRAPHIC RESULTS The left main artery Normal The left anterior descending artery Normal The circumflex artery Normal The right coronary artery Dominant normal The ROLON ventriculogram reveals Normal 65% The left ventricular end-diastolic pressure 10 mmHg Distal abdominal aorta is mildly atheromatous Right common iliac artery has an ostial proximal stent which is widely patent with minimal in-stent restenosis and no gradient upon pullback Right internal/external arteries are normal. Right common femoral artery is normal. Right profunda femoris artery is widely patent. Right superficial femoral artery has mild to moderate 20 to 30% mid vessel stenosis which extend into the popliteal artery. The popliteal artery is widely patent into the anterior and posterior tibialis artery and peroneal artery. There is slow flow below the knee into the ankle however there is three-vessel runoff Left common internal and external iliac arteries are patent. Left common femoral artery and left profunda femoris artery are normal. Left superficial femoral artery is mildly atheromatous with diffuse 30% stenoses and provides inline flow into a widely patent left popliteal artery. There is three-vessel runoff below the left knee however the flow is slow consistent with small vessel diffuse vasculopathy IMPRESSION Normal coronary arteries Normal ejection fraction Normal left ventricular end-diastolic pressure Patent right common iliac artery Mild bilateral SFA diffuse atheromatous disease Three-vessel runoff below the knee bilaterally however flow is slow consistent with microvascular distal vasculopathy PLAN 1. Aggressive risk factor modification 2. LDL less than 55 to be achieved with high intensity statin 3. Avoidance of tobacco products 4. Rehabilitation Electronically signed by : Kaiden Chan MD 08/03/2022 10:18:55
[2022-07-22 09:41] LABS: Basophils # 0.1 K/mm3 (0-0.2); Basophils % 0.7 % (0.1-2.0); Eosinophils # 0.2 K/mm3 (0.0-0.4); Hematocrit 48.6 % (37.0-47.0); Hemoglobin 15.3 g/dL (12.2-16.2); Lymphocytes # 4.1 K/mm3 (0.7-4.5); Lymphocytes % 39.3 % (10-50); Mean Corpuscular HGB Conc 31.5 g/dL (31.8-35.4); Mean Corpuscular Hemoglobin 28.2 pg (27.0-31.2); Mean Corpuscular Volume 89.8 fl (81-99); Mean Platelet Volume 8.2 fl (7.4-10.4); Monocytes # 0.7 K/mm3 (0.1-1.0); Monocytes % 6.6 % (1.7-9.3); Neutrophils # 5.4 K/mm3 (1.8-7.8); Neutrophils % 51.4 % (37.0-80.0); Platelet Count 343 K/mm3 (142-424); Red Blood Count 5.41 M/mm3 (4.20-5.40); Red Cell Distribution Width 13.8 % (11.5-17.5); White Blood Count 10.5 K/mm3 (4.8-10.8)
[2022-07-22 09:51] LABS: Anion Gap 18.2 mEq/L (5-15); Blood Urea Nitrogen 39 mg/dl (7-17); Calcium 9.5 mg/dl (8.4-10.2); Carbon Dioxide 25 mmol/L (22.0-30.0); Chloride 101 mmol/L (98-107); Creatinine Clearance Estimated 52 mL/min (50-200); Estimated Glomerular Filt Rate 50 ml/min (>60); GFR (African American) 61 ML/MIN (>60); Glucose 320 mg/dl (74-100); Potassium 4.2 mmoL/L (3.5-5.1); Sodium 140 mmol/L (136-145)
== END 2022-07-22 14:12 | disposition home or self-care (01) ==
PROVIDERS: PCP Emergency Medicine; Visit Provider Internal Medicine
DX: I13.0 Hypertensive heart and chronic kidney disease with heart failure and stage 1 through stage 4 chronic kidney disease, or unspecified chronic kidney disease (principal); I70.213 Atherosclerosis of native arteries of extremities with intermittent claudication, bilateral legs; R06.09 Other forms of dyspnea; R07.9 Chest pain, unspecified; R94.31 Abnormal electrocardiogram [ECG] [EKG]; Z79.4 Long term (current) use of insulin; Z79.899 Other long term (current) drug therapy; Z79.01 Long term (current) use of anticoagulants; Z79.02 Long term (current) use of antithrombotics/antiplatelets; T82.856A Stenosis of peripheral vascular stent, initial encounter; E11.22 Type 2 diabetes mellitus with diabetic chronic kidney disease; N18.30 Chronic kidney disease, stage 3 unspecified; I48.91 Unspecified atrial fibrillation; F17.210 Nicotine dependence, cigarettes, uncomplicated; I20.8 Other forms of angina pectoris
CPT/HCPCS: 80048; 85025; 93458; 99152; 99153; C1725; C1769; G0278; J1644; Q9966; Q9967

== ENCOUNTER → 2022-08-04 13:45 | Outpatient (CLI) | payer MEDICARE, MEDICAID, SELFPAY ==
[2022-08-04 20:21] LABS: Amphetamine/Metha Screen,Urine Negative ng/ml (<1000); Barbiturates Screen,Urine Negative ng/ml (<200)
[2022-08-04 20:22] LABS: Benzodiazepines Screen,Urine Negative ng/ml (<200)
[2022-08-04 20:23] LABS: Cannabinoid Screen,Urine Negative ng/ml (<50); Cocaine Screen,Urine Negative ng/ml (<300)
[2022-08-04 20:24] LABS: Methadone Screen,Urine Negative ng/ml (<300)
[2022-08-04 20:25] LABS: Opiate Screen,Urine Negative ng/ml (<300)
[2022-08-04 20:26] LABS: Phencyclidine Screen,Urine Negative ng/ml (<25)
[2022-08-04 21:23] LABS: Creatinine,Urine Random 44 mg/dL (Not Estab.)
[2022-08-04 21:42] LABS: Microalbumin/Creatinine Ratio 1870.2
== END ==
PROVIDERS: PCP Emergency Medicine; Visit Provider Emergency Medicine
DX: E11.9 Type 2 diabetes mellitus without complications (principal); Z79.899 Other long term (current) drug therapy
CPT/HCPCS: 80305; 82043; 82570

== ENCOUNTER 2022-08-15 16:55 | Emergency (ER) | payer MEDICARE, MEDICAID, SELFPAY ==
[2022-08-15 16:55] VITALS: BP 87/61; PULSE 75; RESP 18; TEMP 36.6; O2SAT 97; BMI 28.3
--- NOTE | 2022-08-15 17:03 | HMH.EDGENADL ---
Discharge Plan Disposition Patient Disposition: Home, Self-Care Condition: Fair Chief Complaint: Fall Prescriptions Prescriptions: No Action albuterol sulfate 90 mcg/actuation HFA aerosol inhaler 2 puff inhalation Q4HP PRN (Reason: COPD) Qty: 8.5 3RF Rx Instructions: INHALE 2 puffs BY MOUTH EVERY 4 HOURS NEEDED FOR SHORTNESS OF BREATH isosorbide mononitrate 30 mg tablet extended release 24 hr 30 mg PO DAILY albuterol sulfate 0.63 mg/3 mL solution for nebulization 0.63 mg INHALATION QID Qty: 360 2RF buspirone 5 mg tablet 5 mg PO BID Qty: 60 1RF gabapentin 300 mg capsule 300 mg PO TID Qty: 90 1RF oxycodone-acetaminophen [Percocet] 7.5-325 mg tablet 1 tab PO QID PRN (Reason: pain) Qty: 120 0RF metformin 500 mg tablet See Rx Instructions .ROUTE .COMPLEX Qty: 60 2RF Rx Instructions: TAKE ONE TABLET BY MOUTH TWICE DAILY atorvastatin 10 mg tablet See Rx Instructions .ROUTE .COMPLEX Rx Instructions: TAKE ONE TABLET BY MOUTH EVERY DAY AT BEDTIME FOR CHOLESTEROL famotidine [Pepcid] 40 mg tablet 40 mg PO DAILY clopidogrel 75 mg tablet See Rx Instructions .ROUTE .COMPLEX Rx Instructions: TAKE ONE TABLET BY MOUTH EVERY DAY FOR HEART DISEASE Eliquis 5 mg tablet See Rx Instructions .ROUTE .COMPLEX Rx Instructions: TAKE ONE TABLET BY MOUTH TWICE DAILY FOR BLOOD THINNER Farxiga 10 mg tablet 10 mg PO DAILY pantoprazole 40 mg tablet,delayed release (DR/EC) See Rx Instructions .ROUTE .COMPLEX Rx Instructions: TAKE ONE TABLET BY MOUTH EVERY DAY FOR ACID REFLUX topiramate 50 mg tablet See Rx Instructions .ROUTE .COMPLEX Rx Instructions: TAKE ONE TABLET BY MOUTH TWICE DAILY FOR MIGRAINES insulin glargine [Lantus Solostar U-100 Insulin] 100 unit/mL (3 mL) insulin pen 10 unit SQ HS (DME) Dexcom G6 Sensor Device See Rx Instructions .ROUTE .COMPLEX Rx Instructions: USE DIRECTED TO TEST BLOOD GLUCOSE LEVEL CHANGE SENSOR EVERY 10 DAYS fluticasone furoate 100 mcg/actuation blister with device 100 mcg INHALATION DAILY Referrals Follow up/Referrals: Joshua Urban MD [Primary Care Provider] - See instructions Activity Restrictions/Add. Instructions Additional Instructions/Restrictions: Please follow-up with your primary care doctor in the next 2 to 3 days to discuss your high glucose. You may need to adjust your medications. Your work-up today in the emergency department did not reveal any life-threatening or dangerous conditions. Keep your wounds dry and clean. Return to the emergency department immediately if you feel worse in any way. Take all medications as prescribed. Clinical Impressions Clinical Impression: Skin tear Type 2 diabetes mellitus with hyperglycemia Qualifiers: Diabetes mellitus longterm insulin use: without ad terminal makeup operator use Qualified Code(s): E11.65 - Type 2 diabetes mellitus with hyperglycemia Arm contusion Qualifiers: Encounter type: initial encounter Laterality: right Qualified Code(s): S40.021A - Contusion of right upper arm, initial encounter Contusion of occipital region of scalp Qualifiers: Encounter type: initial encounter Qualified Code(s): S00.03XA - Contusion of scalp, initial encounter Instructions Patient Instructions: DI for Hyperglycemia -- Adult, DI for Contusion, DI for Abrasion Discharge ED Provider: Osmin Tesfaye Adult HPI General Chief complaint: Fall Stated complaint: fall Time Seen by Provider: 08/15/22 16:59 Mode of Arrival: EMS Source of Information: Patient Limitations: No Limitations History of Present Illness HPI narrative: The patient presents to the emergency department complaining of not feeling well all day. She felt lightheaded and fell against her car. She sustained some abrasions to her right upper extremity. She also struck her head against the car but did not lose consciousness. Ellie
[2022-08-15 17:11] LABS: Chloride 106 mmol/L (98-107); Potassium 4.3 mmoL/L (3.5-5.1); Sodium 140 mmol/L (136-145)
[2022-08-15 17:14] LABS: Blood Urea Nitrogen 36 mg/dl (7-17); Estimated Glomerular Filt Rate 42 ml/min (>60); GFR (African American) 50 ML/MIN (>60)
[2022-08-15 17:15] LABS: Anion Gap 14.3 mEq/L (5-15); Calcium 9.1 mg/dl (8.4-10.2); Carbon Dioxide 24 mmol/L (22.0-30.0); Glucose 287 mg/dl (74-100)
[2022-08-15 17:18] LABS: Basophils # 0.1 K/mm3 (0-0.2); Basophils % 0.8 % (0.1-2.0); Eosinophils # 0.2 K/mm3 (0.0-0.4); Eosinophils % 1.4 % (0.1-12.0); Hemoglobin 13.5 g/dL (12.2-16.2); Lymphocytes # 7.2 K/mm3 (0.7-4.5); Lymphocytes % 48.7 % (10-50); Mean Corpuscular HGB Conc 30.6 g/dL (31.8-35.4); Mean Corpuscular Hemoglobin 27.8 pg (27.0-31.2); Mean Corpuscular Volume 90.8 fl (81-99); Mean Platelet Volume 8.2 fl (7.4-10.4); Monocytes # 0.7 K/mm3 (0.1-1.0); Monocytes % 4.7 % (1.7-9.3); Neutrophils # 6.6 K/mm3 (1.8-7.8); Neutrophils % 44.4 % (37.0-80.0); Platelet Count 291 K/mm3 (142-424); Red Blood Count 4.85 M/mm3 (4.20-5.40); Red Cell Distribution Width 13.7 % (11.5-17.5); White Blood Count 14.9 K/mm3 (4.8-10.8)
--- NOTE | 2022-08-15 18:08 | PC.NURSE ---
PT MEDICATED PER EMAR, UPDATED ON POC. NO NEEDS AT THIS TIME
[2022-08-15 18:59] VITALS: BP 124/66; PULSE 85; RESP 18; TEMP 36.6; O2SAT 95
== END 2022-08-15 19:25 | disposition home or self-care (01) ==
PROVIDERS: Emergency Provider Emergency Medicine; PCP Emergency Medicine
DX: S40.021A Contusion of right upper arm, initial encounter (principal); S00.03XA Contusion of scalp, initial encounter; E11.65 Type 2 diabetes mellitus with hyperglycemia; R55 Syncope and collapse; J44.9 Chronic obstructive pulmonary disease, unspecified; I48.91 Unspecified atrial fibrillation; I13.0 Hypertensive heart and chronic kidney disease with heart failure and stage 1 through stage 4 chronic kidney disease, or unspecified chronic kidney disease; I50.9 Heart failure, unspecified; N18.30 Chronic kidney disease, stage 3 unspecified; F17.210 Nicotine dependence, cigarettes, uncomplicated; W01.198A Fall on same level from slipping, tripping and stumbling with subsequent striking against other object, initial encounter
CPT/HCPCS: 80048; 85025; 96372; 99284

== ENCOUNTER → 2022-09-01 14:35 | Outpatient (CLI) | payer MEDICARE, MEDICAID, SELFPAY ==
[2022-09-01 19:43] LABS: Amphetamine/Metha Screen,Urine Negative ng/ml (<1000)
[2022-09-01 19:44] LABS: Barbiturates Screen,Urine Negative ng/ml (<200)
[2022-09-01 19:45] LABS: Benzodiazepines Screen,Urine Negative ng/ml (<200); Cannabinoid Screen,Urine Negative ng/ml (<50)
[2022-09-01 19:46] LABS: Cocaine Screen,Urine Negative ng/ml (<300); Methadone Screen,Urine Negative ng/ml (<300)
[2022-09-01 19:47] LABS: Opiate Screen,Urine Negative ng/ml (<300)
[2022-09-01 19:48] LABS: Phencyclidine Screen,Urine Negative ng/ml (<25)
[2022-09-01 20:11] LABS: Creatinine,Urine Random 44 mg/dL (Not Estab.)
[2022-09-01 21:31] LABS: Microalbumin/Creatinine Ratio 1819.3
== END ==
LOC: LAB.DROPOF 09-02 07:07
PROVIDERS: PCP Emergency Medicine; Visit Provider Emergency Medicine
DX: E11.9 Type 2 diabetes mellitus without complications (principal); M54.16 Radiculopathy, lumbar region; Z79.899 Other long term (current) drug therapy; Z79.4 Long term (current) use of insulin
CPT/HCPCS: 80305; 82043; 82570

== ENCOUNTER 2022-09-06 18:37 | Emergency (ER) | payer MEDICARE, MEDICAID, SELFPAY ==
[2022-09-06 18:37] VITALS: BP 122/77; PULSE 90; RESP 17; TEMP 36.8; O2SAT 98; BMI 21.6
--- NOTE | 2022-09-06 19:07 | PC.NURSE ---
DR FERRO AT BEDSIDE
--- NOTE | 2022-09-06 19:17 | PC.NURSE ---
Report from Melany Bolden RN
--- NOTE | 2022-09-06 19:25 | PC.NURSE ---
Notified Adult intake at [facility] for MH assessment. They will call us back after current assessment
--- NOTE | 2022-09-06 19:31 | ECG_ITS ---
APPROVED REPORT Exam: Resting ECG HR:79 bpm ECG Measurements Heart Rate [address] 153 P 80 QRSd 64 QRS 47 QT 374 T 73 QTc 408 Conclusion SINUS RHYTHM NORMAL ECG UNCONFIRMED REPORT Electronically signed by : Moe Escoto MD 09/07/2022 21:16:01
--- NOTE | 2022-09-06 19:38 | HMH.EDGENADL ---
Discharge Plan Disposition Patient Disposition: Home, Self-Care Chief Complaint: Anxiety Prescriptions Prescriptions: No Action buspirone 5 mg tablet 5 mg PO BID Patient Comments: TAKE ONE TABLET BY MOUTH TWICE DAILY metformin 500 mg tablet 500 mg PO BID Patient Comments: TAKE ONE TABLET BY MOUTH TWICE DAILY atorvastatin 10 mg tablet 10 mg PO HS Patient Comments: TAKE ONE TABLET BY MOUTH EVERY DAY AT BEDTIME FOR CHOLESTEROL famotidine 40 mg tablet 40 mg PO DAILY Patient Comments: TAKE ONE TABLET BY MOUTH EVERY DAY isosorbide mononitrate 30 mg tablet extended release 24 hr 30 mg PO DAILY Patient Comments: TAKE ONE TABLET BY MOUTH EVERY DAY FOR CHEST pain clopidogrel 75 mg tablet 75 mg PO DAILY Patient Comments: TAKE ONE TABLET BY MOUTH EVERY DAY FOR HEART DISEASE pantoprazole 40 mg tablet,delayed release (DR/EC) 40 mg PO DAILY Patient Comments: TAKE ONE TABLET BY MOUTH EVERY DAY FOR ACID REFLUX gabapentin 300 mg capsule 300 mg PO TID Patient Comments: TAKE ONE CAPSULE BY MOUTH THREE TIMES DAILY FOR nerve pain MAY CAUSE DROWSINESS insulin lispro 100 unit/mL solution See Protocol SQ ACHS Protocol: Insulin Corrective Low-Dose Regimen Condition: Fingerstick Blood Glucose Dose/Route: Insulin Units Condition: 151-200 mg/dl Dose/Route: 2 unit/SQ Condition: 201-250 mg/dl Dose/Route: 4 units/SQ Condition: 251-300 mg/dl Dose/Route: 6 units/SQ Condition: 301-350 mg/dl Dose/Route: 8 units/SQ Condition: 351-400 mg/dl Dose/Route: 10 units/SQ Condition: 401-450 mg/dl Dose/Route: 12 units/SQ Condition: > 450 mg/dl Dose/Route: CALL MD Protocol Text: Low Intensity Sliding Scale Insulin Patient Comments: INJECT UP TO 100 UNITS SUBCUTANEOUSLY PER DAY PER omnipod DIRECTED (FOR diabetes) oxycodone-acetaminophen 7.5-325 mg tablet 1 tab PO QIDP PRN (Reason: Pain) Patient Comments: TAKE ONE TABLET BY MOUTH FOUR TIMES DAILY NEEDED FOR PAIN MAY CAUSE DROWSINESS albuterol sulfate 90 mcg/actuation HFA aerosol inhaler 2 puff INHALATION Q4HP PRN (Reason: Breathing Problems) Patient Comments: INHALE TWO PUFFS BY MOUTH EVERY 4 HOURS NEEDED FOR SHORTNESS OF BREATH escitalopram oxalate 10 mg tablet 10 mg PO DAILY Patient Comments: TAKE ONE TABLET BY MOUTH DAILY topiramate 50 mg tablet 50 mg PO BID Patient Comments: TAKE ONE TABLET BY MOUTH TWICE DAILY FOR MIGRAINES Eliquis 5 mg tablet 5 mg PO BID Patient Comments: TAKE ONE TABLET BY MOUTH TWICE DAILY FOR BLOOD THINNER Farxiga 10 mg tablet 10 mg PO DAILY Patient Comments: TAKE ONE TABLET BY MOUTH EVERY DAY Referrals Follow up/Referrals: Joshua Urban MD [Primary Care Provider] - See instructions Activity Restrictions/Add. Instructions Additional Instructions/Restrictions: At this time was felt you are safe to be discharged home. Please continue to follow-up with your behavioral health specialist on an outpatient basis. Clinical Impressions Clinical Impression: Encounter for psychiatric assessment Discharge ED Provider: Perez Rodrigez General Adult HPI <Ronnie Sotelo MD - Last Filed: 09/06/22 23:17> General Chief complaint: Anxiety Stated complaint: ANXIETY Time Seen by Provider: 09/06/22 18:41 Mode of Arrival: EMS Source of Information: Patient and EMS Limitations: No Limitations Description of Symptoms (Recalled from ER Triage Doc. by RN): PT BROUGHT IN VIA EMS. PT STATES I NEED SOMEWHERE TO GO TO HELP ME COPE. TO LEARN TO LIVE BY MYSELF PT REPORTS CHANGE IN DEPRESSION MEDICATION, STARTED ON LEXAPRO. REPORTS BEING NERVOUS AND UPSET PT DENIES SI/HI THOUGHTS History of Present Illness HPI narrative: 62-year-old female, history as above, reported longstanding anxiety and depression who presents to get help . Patient is anxious and unc
[2022-09-06 19:50] LABS: Basophils # 0.1 K/mm3 (0-0.2); Basophils % 0.7 % (0.1-2.0); Eosinophils # 0.1 K/mm3 (0.0-0.4); Eosinophils % 0.5 % (0.1-12.0); Hematocrit 46.6 % (37.0-47.0); Hemoglobin 14.3 g/dL (12.2-16.2); Lymphocytes # 2.8 K/mm3 (0.7-4.5); Lymphocytes % 24.5 % (10-50); Mean Corpuscular HGB Conc 30.7 g/dL (31.8-35.4); Mean Corpuscular Hemoglobin 27.6 pg (27.0-31.2); Mean Corpuscular Volume 90.1 fl (81-99); Mean Platelet Volume 8.3 fl (7.4-10.4); Monocytes # 0.8 K/mm3 (0.1-1.0); Monocytes % 6.6 % (1.7-9.3); Neutrophils # 7.7 K/mm3 (1.8-7.8); Neutrophils % 67.7 % (37.0-80.0); Platelet Count 348 K/mm3 (142-424); Red Blood Count 5.17 M/mm3 (4.20-5.40); White Blood Count 11.4 K/mm3 (4.8-10.8)
--- NOTE | 2022-09-06 19:50 | PC.NURSE ---
LABS drawn via straight stick. Urine sample collected.
[2022-09-06 19:54] LABS: Alanine Aminotransferase 35 U/L (12-78); Albumin/Globulin Ratio 1.1 (1.1-1.8); Alkaline Phosphatase 122 U/L (38-126); Anion Gap 15.9 mEq/L (5-15); Aspartate Amino Transferase 38 U/L (14-36); Bilirubin,Total 0.5 mg/dl (0.2-1.3); Blood Urea Nitrogen 44 mg/dl (7-17); Calcium 9.5 mg/dl (8.4-10.2); Carbon Dioxide 21 mmol/L (22.0-30.0); Chloride 108 mmol/L (98-107); Creatinine Clearance Estimated 39 mL/min (50-200); Estimated Glomerular Filt Rate 38 ml/min (>60); GFR (African American) 46 ML/MIN (>60); Globulin 3.8 g/dL (1.3-3.2); Glucose 216 mg/dl (74-100); Potassium 4.9 mmoL/L (3.5-5.1); Sodium 140 mmol/L (136-145); Total Protein,Serum 7.8 g/dl (6.3-8.2)
[2022-09-06 19:55] LABS: Acetaminophen < 10 ug/ml (10-30); Salicylate < 1.0 mg/dL (2.0-20.0)
[2022-09-06 20:01] VITALS: BP 119/79; PULSE 84; O2SAT 96
--- NOTE | 2022-09-06 20:30 | PC.NURSE ---
ROUNDED ON PATIENT SHE REMAINS EMOTIONAL, I UPDATED HER ON STATUS OF HER TRANSFER
[2022-09-06 20:45] LABS: Ethyl Alcohol < 10 mg/dl (0-10)
[2022-09-06 20:50] LABS: Amphetamine/Metha Screen,Urine Negative ng/ml (<1000)
--- NOTE | 2022-09-06 20:52 | PC.NURSE ---
Called lab to check status of UDS. Janeen advised 10 minutes remaining.
[2022-09-06 21:08] LABS: Barbiturates Screen,Urine Negative ng/ml (<200)
--- NOTE | 2022-09-06 21:33 | PC.NURSE ---
spoke with Kelsey in the lab. Kelsey reports there is an issue with the machine that runs UDS. they are still working on getting the remaining part of the results.
[2022-09-06 21:35] LABS: Cannabinoid Screen,Urine Negative ng/ml (<50)
--- NOTE | 2022-09-06 21:51 | PC.NURSE ---
Pt information faxed to [facility]
[2022-09-06 22:08] LABS: Benzodiazepines Screen,Urine Negative ng/ml (<200)
[2022-09-06 22:09] LABS: Cocaine Screen,Urine Negative ng/ml (<300)
[2022-09-06 22:10] LABS: Methadone Screen,Urine Negative ng/ml (<300); Phencyclidine Screen,Urine Negative ng/ml (<25)
[2022-09-06 22:14] LABS: Opiate Screen,Urine Negative ng/ml (<300)
[2022-09-06 23:03] LABS: Microscopic, Urine URINE MICROSCOPIC (MICROSCOPIC)
[2022-09-06 23:07] LABS: Appearance,Urine CLEAR (Clear); Bilirubin,Urine Negative (Negative); Blood, Urine Negative (Negative); Color,Urine YELLOW (Yellow); Glucose,Urine (UA) 3+ (Negative); Ketones,Urine Negative (Negative); Leukocyte Esterase,Urine Negative (Negative); Nitrate,Urine Negative (Negative); PH,Urine 5.5 (5.0-8.5); Protein,Urine 2+ (Negative); Specific Gravity, Urine >= 1.030 (1.005-1.030); Urobilinogen,Urine 0.2 EU/dl (0.2)
--- NOTE | 2022-09-06 23:15 | PC.NURSE ---
Refaxed all updated information to Brandee at [facility] per her request. Awaiting confirmation fax and will call back
--- NOTE | 2022-09-06 23:23 | PC.NURSE ---
Pt speaking with [email or web address] via iPad zoom call
--- NOTE | 2022-09-06 23:59 | PC.NURSE ---
Patient finished speaking with Mohini MARTINO AWaiting their phone call
[2022-09-07 00:07] LABS: WBC,Urine Occasional #/hpf (0-3)
--- NOTE | 2022-09-07 00:26 | PC.NURSE ---
Spoke to Brandee at [facility]. She is going to call the Psychiatrist and will call us back
--- NOTE | 2022-09-07 01:01 | PC.NURSE ---
Patient has not been accepted for inpatient per Brandee at [facility]. Patient was referred to outpatient treatment. Attempting to call patient's daughter who assist patient with her care at this time. Daughter is not answering calls at this time.
--- NOTE | 2022-09-07 01:28 | PC.NURSE ---
Was able to reach daughter. She is on her way to pick-up patient at this time
[2022-09-07 01:29] VITALS: BP 119/61; PULSE 69; RESP 16; TEMP 36.6; O2SAT 95
== END 2022-09-07 01:48 | disposition home or self-care (01) ==
PROVIDERS: Emergency Medicine; Emergency Provider Emergency Medicine; PCP Emergency Medicine
DX: F41.9 Anxiety disorder, unspecified (principal); F32.A Depression, unspecified; I48.91 Unspecified atrial fibrillation; I13.0 Hypertensive heart and chronic kidney disease with heart failure and stage 1 through stage 4 chronic kidney disease, or unspecified chronic kidney disease; N18.30 Chronic kidney disease, stage 3 unspecified; J44.9 Chronic obstructive pulmonary disease, unspecified; E11.42 Type 2 diabetes mellitus with diabetic polyneuropathy; I50.9 Heart failure, unspecified; E11.51 Type 2 diabetes mellitus with diabetic peripheral angiopathy without gangrene; F17.210 Nicotine dependence, cigarettes, uncomplicated
CPT/HCPCS: 80053; 80305; 80329; 81001; 85025; 93005; 99285

== ENCOUNTER 2022-09-08 15:58 | Emergency (ER) | payer MEDICARE, MEDICAID, SELFPAY ==
--- NOTE | 2022-09-08 16:25 | ECG_ITS ---
APPROVED REPORT Exam: Resting ECG HR:84 bpm ECG Measurements Heart Rate 84 AXES WA 164 P 90 QRSd 72 QRS 5 QT 362 T 54 QTc 403 Conclusion SINUS RHYTHM NORMAL ECG UNCONFIRMED REPORT Electronically signed by : Moe Escoto MD 09/08/2022 20:43:51
[2022-09-08 16:29] VITALS: BP 92/70; PULSE 92; RESP 17; TEMP 36.6; O2SAT 96; BMI 22.0
[2022-09-08 16:30] VITALS: BP 105/69; PULSE 80; O2SAT 97
--- NOTE | 2022-09-08 16:31 | PC.NURSE ---
pt sitting on ED stretcher making comments such as, I will figure out a way to help myself. why does nobody want to help me? Pt tearful at this time. I have repeatedly said, we are here to help you and the ER MD will be in shortly.
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
--- NOTE | 2022-09-08 16:40 | PC.NURSE ---
pt reports I'm so tired of crying and people not listening to what I'm saying. Nobody wants to help me. As she bangs her left fist on the bed several times. I told her that we are here to help her and will get her what she needs, we have to follow the process.
--- NOTE | 2022-09-08 16:47 | HMH.EDGENADL ---
Discharge Plan Disposition Patient Disposition: Xfer Other Condition: Good Prescriptions Prescriptions: New cefadroxil 500 mg capsule 500 mg PO BID 7 Days Qty: 14 0RF No Action buspirone 5 mg tablet 5 mg PO BID Patient Comments: TAKE ONE TABLET BY MOUTH TWICE DAILY metformin 500 mg tablet 500 mg PO BID Patient Comments: TAKE ONE TABLET BY MOUTH TWICE DAILY atorvastatin 10 mg tablet 10 mg PO HS Patient Comments: TAKE ONE TABLET BY MOUTH EVERY DAY AT BEDTIME FOR CHOLESTEROL famotidine 40 mg tablet 40 mg PO DAILY Patient Comments: TAKE ONE TABLET BY MOUTH EVERY DAY isosorbide mononitrate 30 mg tablet extended release 24 hr 30 mg PO DAILY Patient Comments: TAKE ONE TABLET BY MOUTH EVERY DAY FOR CHEST pain clopidogrel 75 mg tablet 75 mg PO DAILY Patient Comments: TAKE ONE TABLET BY MOUTH EVERY DAY FOR HEART DISEASE pantoprazole 40 mg tablet,delayed release (DR/EC) 40 mg PO DAILY Patient Comments: TAKE ONE TABLET BY MOUTH EVERY DAY FOR ACID REFLUX gabapentin 300 mg capsule 300 mg PO TID Patient Comments: TAKE ONE CAPSULE BY MOUTH THREE TIMES DAILY FOR nerve pain MAY CAUSE DROWSINESS insulin lispro 100 unit/mL solution See Protocol SQ ACHS Protocol: Insulin Corrective Low-Dose Regimen Condition: Fingerstick Blood Glucose Dose/Route: Insulin Units Condition: 151-200 mg/dl Dose/Route: 2 unit/SQ Condition: 201-250 mg/dl Dose/Route: 4 units/SQ Condition: 251-300 mg/dl Dose/Route: 6 units/SQ Condition: 301-350 mg/dl Dose/Route: 8 units/SQ Condition: 351-400 mg/dl Dose/Route: 10 units/SQ Condition: 401-450 mg/dl Dose/Route: 12 units/SQ Condition: > 450 mg/dl Dose/Route: CALL MD Protocol Text: Low Intensity Sliding Scale Insulin Patient Comments: INJECT UP TO 100 UNITS SUBCUTANEOUSLY PER DAY PER omnipod DIRECTED (FOR diabetes) oxycodone-acetaminophen 7.5-325 mg tablet 1 tab PO QIDP PRN (Reason: Pain) Patient Comments: TAKE ONE TABLET BY MOUTH FOUR TIMES DAILY NEEDED FOR PAIN MAY CAUSE DROWSINESS albuterol sulfate 90 mcg/actuation HFA aerosol inhaler 2 puff INHALATION Q4HP PRN (Reason: Breathing Problems) Patient Comments: INHALE TWO PUFFS BY MOUTH EVERY 4 HOURS NEEDED FOR SHORTNESS OF BREATH escitalopram oxalate 10 mg tablet 10 mg PO DAILY Patient Comments: TAKE ONE TABLET BY MOUTH DAILY topiramate 50 mg tablet 50 mg PO BID Patient Comments: TAKE ONE TABLET BY MOUTH TWICE DAILY FOR MIGRAINES Eliquis 5 mg tablet 5 mg PO BID Patient Comments: TAKE ONE TABLET BY MOUTH TWICE DAILY FOR BLOOD THINNER Farxiga 10 mg tablet 10 mg PO DAILY Patient Comments: TAKE ONE TABLET BY MOUTH EVERY DAY Referrals Follow up/Referrals: Joshua Urban MD [Primary Care Provider] - See instructions Clinical Impressions Clinical Impression: Depression with suicidal ideation Discharge ED Provider: Williams Phillips General Adult HPI General Chief complaint: Psychiatric Symptoms Stated complaint: SI Time Seen by Provider: 09/08/22 16:06 Mode of Arrival: Ambulatory Source of Information: Patient Limitations: No Limitations Description of Symptoms (Recalled from ER Triage Doc. by RN): pt comes in with reports of SI. pt reports that she has had anxiety and depression ongoing for a few years. recently her thoughts have gotten worse. pt states that she does not have plan but sits and thinks about not wanting to live anymore. pt does see [facility] in [place] but does not jive with the provider. pt repots that she is just tired. History of Present Illness HPI narrative: Is a 62-year-old female with history of hypertension, hyperlipidemia, anxiety, depression, type 2 diabetes, COPD not currently on home oxygen presenting with suicidal ideation. Patient states that she has had longstanding anxiety and depression
[2022-09-08 16:49] LABS: Basophils # 0.1 K/mm3 (0-0.2); Basophils % 0.6 % (0.1-2.0); Eosinophils # 0.1 K/mm3 (0.0-0.4); Hematocrit 45.9 % (37.0-47.0); Lymphocytes # 3.9 K/mm3 (0.7-4.5); Lymphocytes % 31.8 % (10-50); Mean Corpuscular HGB Conc 30.5 g/dL (31.8-35.4); Mean Corpuscular Hemoglobin 27.7 pg (27.0-31.2); Mean Corpuscular Volume 90.7 fl (81-99); Monocytes # 0.8 K/mm3 (0.1-1.0); Monocytes % 6.8 % (1.7-9.3); Neutrophils # 7.2 K/mm3 (1.8-7.8); Neutrophils % 59.8 % (37.0-80.0); Platelet Count 336 K/mm3 (142-424); Red Blood Count 5.06 M/mm3 (4.20-5.40); Red Cell Distribution Width 13.9 % (11.5-17.5); White Blood Count 12.1 K/mm3 (4.8-10.8)
[2022-09-08 16:51] LABS: Chloride 110 mmol/L (98-107); Potassium 4.2 mmoL/L (3.5-5.1); Sodium 142 mmol/L (136-145)
[2022-09-08 16:54] LABS: Alanine Aminotransferase 36 U/L (12-78); Albumin Level 3.9 g/dl (3.5-5.0); Alkaline Phosphatase 129 U/L (38-126); Anion Gap 12.2 mEq/L (5-15); Aspartate Amino Transferase 46 U/L (14-36); Bilirubin,Total 0.4 mg/dl (0.2-1.3); Blood Urea Nitrogen 41 mg/dl (7-17); Calcium 9.8 mg/dl (8.4-10.2); Carbon Dioxide 24 mmol/L (22.0-30.0); Creatinine Clearance Estimated 47 mL/min (50-200); Estimated Glomerular Filt Rate 42 ml/min (>60); GFR (African American) 50 ML/MIN (>60); Globulin 4.1 g/dL (1.3-3.2); Glucose 122 mg/dl (74-100)
--- NOTE | 2022-09-08 16:54 | PC.NURSE ---
when in to assess pt and attempt to collect urine sample. pt reports that she now has a plan. pt states if you dont help me, i will go home and take a handful of pills.
[2022-09-08 16:57] LABS: Ethyl Alcohol < 10 mg/dl (0-10)
[2022-09-08 16:59] LABS: Microscopic, Urine URINE MICROSCOPIC (MICROSCOPIC)
--- NOTE | 2022-09-08 17:01 | PC.NURSE ---
Dr. Phillips at [facility] for pt eval
[2022-09-08 17:06] LABS: Appearance,Urine SL CLOUDY (Clear); Bilirubin,Urine Negative (Negative); Blood, Urine 1+ (Negative); Color,Urine YELLOW (Yellow); Glucose,Urine (UA) 3+ (Negative); Ketones,Urine Negative (Negative); Leukocyte Esterase,Urine 1+ (Negative); Nitrate,Urine Negative (Negative); PH,Urine 5.5 (5.0-8.5); Protein,Urine 2+ (Negative); Specific Gravity, Urine >= 1.030 (1.005-1.030); Urobilinogen,Urine 0.2 EU/dl (0.2)
[2022-09-08 17:07] LABS: Urine Pregnancy, HCG Qual. Negative (Negative)
[2022-09-08 17:16] LABS: Acetaminophen < 10 ug/ml (10-30); Salicylate < 1.0 mg/dL (2.0-20.0)
[2022-09-08 17:17] LABS: Opiate Screen,Urine Negative ng/ml (<300)
[2022-09-08 17:18] LABS: Phencyclidine Screen,Urine Negative ng/ml (<25)
[2022-09-08 17:20] LABS: Amphetamine/Metha Screen,Urine Negative ng/ml (<1000)
--- NOTE | 2022-09-08 17:20 | PC.NURSE ---
dietary tray ordered for patient; tv turned on in room. Patient is very anxious and keeps repeatedly saying Valeria doll get help
[2022-09-08 17:21] LABS: Bacteria,Urine 1+ /lpf; Barbiturates Screen,Urine Negative ng/ml (<200); Benzodiazepines Screen,Urine Negative ng/ml (<200); RBC,Urine Occasional #/hpf (0-3); WBC,Urine Occasional #/hpf (0-3)
[2022-09-08 17:23] LABS: Cannabinoid Screen,Urine Negative ng/ml (<50); Cocaine Screen,Urine Negative ng/ml (<300)
[2022-09-08 17:24] LABS: Methadone Screen,Urine Negative ng/ml (<300)
--- NOTE | 2022-09-08 17:40 | PC.NURSE ---
pt received dietary tray; staff still at [facility]. Pt repeatedly saying i just want to get help.
--- NOTE | 2022-09-08 17:48 | PC.NURSE ---
paperwork faxed to [facility] for pt assessment.
--- NOTE | 2022-09-08 17:49 | PC.NURSE ---
pt requesting chicken salad sandwich with chips over her supper tray; dietary was notified and brought to ED room. Pt sitting up eating with staff memeber at BS for 1:1
--- NOTE | 2022-09-08 18:38 | PC.NURSE ---
pt speaking on ipad with diagnostics tech at this time
--- NOTE | 2022-09-08 18:39 | PC.NURSE ---
pt on zoom meeting with exhibit display representative from [facility].
--- NOTE | 2022-09-08 18:48 | PC.NURSE ---
Zoom meeting ended; awaiting to hear back from [facility] about acceptance
[2022-09-08 18:49] VITALS: BP 108/62; PULSE 84; RESP 16; O2SAT 97
--- NOTE | 2022-09-08 18:55 | PC.NURSE ---
; phone number for patients brother, Lauren Bartlett. She would like to notify him if she is accepted to the facility to go get her dog at her house.
--- NOTE | 2022-09-08 18:58 | PC.NURSE ---
Staff members switching out at this time of shift change.
--- NOTE | 2022-09-08 19:08 | PC.NURSE ---
report called to pati at [facility]
[2022-09-08 19:14] VITALS: BP 108/62; PULSE 84; RESP 16; TEMP 36.6
== END 2022-09-08 19:17 | disposition other institution (70) ==
PROVIDERS: Emergency Provider Emergency Medicine; PCP Emergency Medicine
DX: R45.851 Suicidal ideations (principal); F32.A Depression, unspecified; F41.9 Anxiety disorder, unspecified; I10 Essential (primary) hypertension; E78.5 Hyperlipidemia, unspecified; J44.9 Chronic obstructive pulmonary disease, unspecified; E11.22 Type 2 diabetes mellitus with diabetic chronic kidney disease
CPT/HCPCS: 80053; 80305; 80329; 81001; 81025; 85025; 87086; 87088; 87186; 93005; 99285

== ENCOUNTER 2022-09-25 12:01 | Emergency (ER) | payer MEDICARE, MEDICAID, SELFPAY ==
[2022-09-25] VITALS (12 sets, daily range): BP systolic 122–162; BP diastolic 73–91; PULSE 74–110; RESP 13–20; TEMP 36.6–36.9; O2SAT 97–100; BMI 18.8
--- NOTE | 2022-09-25 12:20 | PC.NURSE ---
Denies ETOH/drug use. Pt tearful making verbal statements, I don't want to live .
[2022-09-25 12:23] LABS: Microscopic, Urine URINE MICROSCOPIC (MICROSCOPIC)
[2022-09-25 12:26] LABS: Basophils # 0.1 K/mm3 (0-0.2); Basophils % 0.7 % (0.1-2.0); Eosinophils # 0.1 K/mm3 (0.0-0.4); Eosinophils % 1.1 % (0.1-12.0); Hematocrit 49.9 % (37.0-47.0); Hemoglobin 15.8 g/dL (12.2-16.2); Lymphocytes # 3.1 K/mm3 (0.7-4.5); Lymphocytes % 25.8 % (10-50); Mean Corpuscular HGB Conc 31.8 g/dL (31.8-35.4); Mean Corpuscular Hemoglobin 29.5 pg (27.0-31.2); Mean Corpuscular Volume 92.9 fl (81-99); Mean Platelet Volume 7.1 fl (7.4-10.4); Monocytes # 0.6 K/mm3 (0.1-1.0); Monocytes % 4.7 % (1.7-9.3); Neutrophils # 8.2 K/mm3 (1.8-7.8); Neutrophils % 67.6 % (37.0-80.0); Platelet Count 346 K/mm3 (142-424); Red Blood Count 5.37 M/mm3 (4.20-5.40); Red Cell Distribution Width 13.9 % (11.5-17.5); White Blood Count 12.1 K/mm3 (4.8-10.8)
[2022-09-25 12:28] LABS: Appearance,Urine CLEAR (Clear); Bilirubin,Urine Negative (Negative); Blood, Urine Negative (Negative); Color,Urine YELLOW (Yellow); Glucose,Urine (UA) 2+ (Negative); Ketones,Urine 1+ (Negative); Leukocyte Esterase,Urine Negative (Negative); Nitrate,Urine Negative (Negative); PH,Urine 7.5 (5.0-8.5); Protein,Urine 3+ (Negative)
--- NOTE | 2022-09-25 12:28 | ECG_ITS ---
APPROVED REPORT Exam: Resting ECG HR:80 bpm ECG Measurements Heart Rate 80 AXES ID 158 P 88 QRSd 87 QRS 22 QT 379 T 60 QTc 415 Conclusion SINUS RHYTHM NORMAL ECG UNCONFIRMED REPORT Electronically signed by : Moe Escoto MD 09/27/2022 14:06:36
[2022-09-25 12:32] LABS: Acetaminophen < 10 ug/ml (10-30); Alanine Aminotransferase 46 U/L (12-78); Albumin Level 4.4 g/dl (3.5-5.0); Albumin/Globulin Ratio 0.9 (1.1-1.8); Alkaline Phosphatase 165 U/L (38-126); Anion Gap 20.7 mEq/L (5-15); Aspartate Amino Transferase 45 U/L (14-36); Bilirubin,Total 0.5 mg/dl (0.2-1.3); Blood Urea Nitrogen 34 mg/dl (7-17); Calcium 9.7 mg/dl (8.4-10.2); Carbon Dioxide 18 mmol/L (22.0-30.0); Chloride 108 mmol/L (98-107); Creatinine Clearance Estimated 33 mL/min (50-200); Estimated Glomerular Filt Rate 38 ml/min (>60); GFR (African American) 46 ML/MIN (>60); Globulin 4.9 g/dL (1.3-3.2); Glucose 233 mg/dl (74-100); Potassium 3.7 mmoL/L (3.5-5.1); Salicylate < 1.0 mg/dL (2.0-20.0); Sodium 143 mmol/L (136-145); Total Protein,Serum 9.3 g/dl (6.3-8.2)
[2022-09-25 12:39] LABS: Benzodiazepines Screen,Urine Negative ng/ml (<200)
[2022-09-25 12:40] LABS: Amphetamine/Metha Screen,Urine Negative ng/ml (<1000); Barbiturates Screen,Urine Negative ng/ml (<200)
[2022-09-25 12:41] LABS: Cannabinoid Screen,Urine Negative ng/ml (<50); Cocaine Screen,Urine Negative ng/ml (<300)
[2022-09-25 12:42] LABS: Methadone Screen,Urine Negative ng/ml (<300)
[2022-09-25 12:43] LABS: Opiate Screen,Urine Negative ng/ml (<300); Phencyclidine Screen,Urine Negative ng/ml (<25)
[2022-09-25 12:44] LABS: Bacteria,Urine Trace /lpf; RBC,Urine Occasional #/hpf (0-3); Squamous Epithelial Cell,Urine Occasional #/hpf (0-5)
--- NOTE | 2022-09-25 13:34 | PC.NURSE ---
staff at with pt within arms reach. pt sitting up on stretcher rocking back and forth
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
--- NOTE | 2022-09-25 13:44 | PC.NURSE ---
Faxed over records to [facility]; awaiting a call back to set up a zoom meeting for the patient.
--- NOTE | 2022-09-25 13:51 | PC.NURSE ---
Nita Charge nurse and I went into room adjusted patient and provided warm blanket. HOSPITALIST NOCTURNIST PHYSICIAN @ BS 1 to 1
--- NOTE | 2022-09-25 14:02 | PC.NURSE ---
requested lunch tray to dietary
--- NOTE | 2022-09-25 14:41 | PC.NURSE ---
contacted [facility] to check if they had received paperwork, spoke with abbey states they have received paperwork, she gave paperwork to their sample coordinator, states that sample coordinator is off the unit at this time but states she should be giving you a call soon .
--- NOTE | 2022-09-25 14:59 | PC.NURSE ---
Spoke with Taylor at [facility], states she didn't receive her the ekg or uds, sending those via fax at this time. States once she receives those she will call us back with the zoom number
--- NOTE | 2022-09-25 15:16 | PC.NURSE ---
pt on zoom call with [facility] at this time
--- NOTE | 2022-09-25 15:50 | PC.NURSE ---
spoke with nae at [facility], states she has spoken with dr. perea states he is declining acceptance of pt related to her medical , suggests that we contact Tulio Hyde notified pt primary nurse and ER MD Yuan
--- NOTE | 2022-09-25 15:58 | PC.NURSE ---
Reaching out to [facility] for possible transfer.
--- NOTE | 2022-09-25 16:24 | PC.NURSE ---
RADHA PARHAM speaking with [facility] at this time about possible transfer
[2022-09-25 16:53] LABS: Ethyl Alcohol < 10 mg/dl (0-10)
--- NOTE | 2022-09-25 16:55 | PC.NURSE ---
notified RT of vbg order
[2022-09-25 17:04] LABS: VBG Base Excess -12.2 mmol/L (-2.4-2.3); VBG HCO3 15.8 mmol/L (23-30); VBG PCO2 41.2 mmol/L (35-51); VBG PO2 178.7 mmol/L (28-40); VBG Total CO2 17.1 mmol/L (23-27)
--- NOTE | 2022-09-25 17:06 | PC.NURSE ---
notified ER MD Yuan of critical vbg result
== END 2022-09-25 17:20 | disposition other institution (70) ==
PROVIDERS: Emergency Medicine; Emergency Provider Emergency Medicine; PCP Emergency Medicine
DX: T50.902A Poisoning by unspecified drugs, medicaments and biological substances, intentional self-harm, initial encounter (principal); R45.851 Suicidal ideations; R44.0 Auditory hallucinations; F32.A Depression, unspecified; J44.9 Chronic obstructive pulmonary disease, unspecified; E11.22 Type 2 diabetes mellitus with diabetic chronic kidney disease; E11.51 Type 2 diabetes mellitus with diabetic peripheral angiopathy without gangrene; I48.91 Unspecified atrial fibrillation; N18.9 Chronic kidney disease, unspecified; I12.9 Hypertensive chronic kidney disease with stage 1 through stage 4 chronic kidney disease, or unspecified chronic kidney disease; E11.40 Type 2 diabetes mellitus with diabetic neuropathy, unspecified; F17.210 Nicotine dependence, cigarettes, uncomplicated
CPT/HCPCS: 80053; 80305; 80329; 81001; 82803; 85025; 93005; 99285

== ENCOUNTER → 2022-10-29 07:17 | Outpatient (CLI) | payer MEDICARE, MEDICAID, SELFPAY ==
[2022-10-29 19:50] LABS: Amphetamine/Metha Screen,Urine Negative ng/ml (<1000)
[2022-10-29 19:51] LABS: Barbiturates Screen,Urine Negative ng/ml (<200)
[2022-10-29 19:55] LABS: Benzodiazepines Screen,Urine Negative ng/ml (<200)
[2022-10-29 19:56] LABS: Cannabinoid Screen,Urine Negative ng/ml (<50); Cocaine Screen,Urine Negative ng/ml (<300)
[2022-10-29 19:57] LABS: Methadone Screen,Urine Negative ng/ml (<300)
[2022-10-29 19:58] LABS: Opiate Screen,Urine Negative ng/ml (<300); Phencyclidine Screen,Urine Negative ng/ml (<25)
--- OUTSIDE RECORDS SUMMARY | 2022-11-17 07:20 | XMS_ITS | Encounter Summary ---
Author Name Unknown Organization [facility] Address [address] [place] [address] Encounter Details Date Type Department Care Team Description ASSESSMENT No Information TREATMENT PLAN No Information
--- OUTSIDE RECORDS SUMMARY | 2022-11-17 07:21 | XMS_ITS | Summary of Care ---
Author Name Unknown Organization [facility] Address [address] [place] [address]- Encounter 01/29/16 - 02/11/16 [facility] [address] [place] [address] Attending Physician: Nataliya Mccormack MD Vital Signs Most recent to oldest [Reference Range]: 1 2 3 Temperature Oral F [96.4-99.1 DegF] 97.8 DegF (02/11/16 8:00 AM) 97.0 DegF (02/10/16 9:36 PM) 97.4 DegF (02/10/16 7:00 AM) Peripheral Pulse Rate [60-100 bpm] 82 bpm (02/11/16 11:00 AM) 79 bpm (02/11/16 8:00 AM) 76 bpm (02/10/16 9:36 PM) Respiratory Rate [14-20 br/min] 20 br/min (02/11/16 11:00 AM) 20 br/min (02/11/16 8:00 AM) 12 br/min *LOW* (02/10/16 9:36 PM) Blood Pressure [90-140/60-90 mmHg] 127/77mmHg (02/11/16 8:00 AM) Systolic Blood Pressure [90-140 mmHg] 124 mmHg (02/10/16 9:36 PM) 93 mmHg (02/10/16 7:00 AM) Diastolic Blood Pressure [60-90 mmHg] 74 mmHg (02/10/16 9:36 PM) 55 mmHg *LOW* (02/10/16 7:00 AM) Extremity used to obtain blood pressure Left Arm (01/29/16 5:40 PM) Cuff Size. Medium (01/29/16 5:40 PM) Temperature Oral [36-37 DegC] 37 DegC (02/11/16 8:00 AM) Temperature Oral [35.8-37.3 DegC] 36.1 DegC (02/10/16 9:36 PM) 36.3 DegC (02/10/16 7:00 AM) Problem List Condition Effective Dates Status Health Status Inform ant Cognitive impairment(Confirmed)
--- OUTSIDE RECORDS SUMMARY | 2022-11-17 07:21 | XMS_ITS | Summary of Care ---
Author Name Unknown Organization [facility] Address [address] [place] [address]- Encounter 12/13/19 - 01/02/20 [facility] [address] [place] [address] [facility] [phone] Encounter Diagnosis Acute on Chronic COPD Exacerbation complicated by Femoral Neck s/p IMN(Discharge Diagnosis) - 12/31/19 Discharge Disposition: Home with Home Health Care Attending Physician: Mitzi Perera MD Admitting Physician: Mitzi Perera MD Allergies, Adverse Reactions, Alerts Substance Reaction Severity Status naproxen Active erythromycin Active aspirin Active penicillins Active Brethine Active Wellbutrin Active Tylenol 1 Active Cymbalta Active Lyrica Active traMADol Active CeleBREX Active 1Patient stated aftertaking the med that she was allergic to tylenol, she gets skin rash and itching Assessment and Plan Extracted from: Title: PM&R Discharge Summary Author:Roel Brar Date:01/02/20 Patient: MAGGIE CLINE Age: 59 years Sex: Female : 1960 Associated Diagnoses: None Author: Roel Brar Date of Admission: 12/13/19 Date of Discharge: 01/02/20 Admission Diagnosis: Acute on Chronic COPD Exacerbation complicated by Femoral Neck s/p IMN Acute on Chronic COPD Exacerbation complicated by Femoral Neck s/p IMN Acute on Chronic COPD Exacerbation complicated by Femoral Neck s/p IMN resulting in functional decline Service Attending: Mitzi Perera MD Discharge Attending: Mitzi Perera MD Service Resident: Roel Velazquez MD Admission HPI: per chart review, 59 y/o female with PMHX of COPD (3L NC), DMII, CKD stage 3, afib (eliquis), Hep C, CAD, and PAD presented to [facility] on 12/02/19 after a fall. Patient was a transfer from [facility]. Patient had a fall with +LOC and syncope [facility]
== END ==
LOC: LAB.DROPOF 11-17 07:18
PROVIDERS: PCP Emergency Medicine; Visit Provider Emergency Medicine
DX: M54.16 Radiculopathy, lumbar region (principal)
CPT/HCPCS: 80305

== ENCOUNTER → 2023-01-25 08:52 | Outpatient (CLI) | payer MEDICARE, MEDICAID, SELFPAY ==
[2023-01-25 18:58] LABS: Basophils # 0.1 K/mm3 (0-0.2); Basophils % 0.8 % (0.1-2.0); Eosinophils # 0.2 K/mm3 (0.0-0.4); Eosinophils % 1.9 % (0.1-12.0); Hematocrit 44.2 % (37.0-47.0); Hemoglobin 14.5 g/dL (12.2-16.2); Lymphocytes # 3.8 K/mm3 (0.7-4.5); Lymphocytes % 32.9 % (10-50); Mean Corpuscular HGB Conc 32.7 g/dL (31.8-35.4); Mean Corpuscular Hemoglobin 28.1 pg (27.0-31.2); Mean Corpuscular Volume 85.9 fl (81-99); Mean Platelet Volume 8.9 fl (7.4-10.4); Monocytes # 0.8 K/mm3 (0.1-1.0); Monocytes % 6.7 % (1.7-9.3); Neutrophils # 6.6 K/mm3 (1.8-7.8); Neutrophils % 57.7 % (37.0-80.0); Platelet Count 280 K/mm3 (142-424); Red Blood Count 5.15 M/mm3 (4.20-5.40); Red Cell Distribution Width 15.4 % (11.5-17.5); White Blood Count 11.4 K/mm3 (4.8-10.8)
[2023-01-25 20:02] LABS: Alanine Aminotransferase 38 U/L (12-78); Albumin Level 3.9 g/dl (3.5-5.0); Albumin/Globulin Ratio 1.1 (1.1-1.8); Alkaline Phosphatase 106 U/L (38-126); Anion Gap 12.2 mEq/L (5-15); Aspartate Amino Transferase 51 U/L (14-36); Bilirubin,Total 0.6 mg/dl (0.2-1.3); Blood Urea Nitrogen 36 mg/dl (7-17); Calcium 9.4 mg/dl (8.4-10.2); Carbon Dioxide 24 mmol/L (22.0-30.0); Chloride 107 mmol/L (98-107); Cholesterol 194 mg/dl (140-200); Estimated Glomerular Filt Rate 46 ml/min (>60); GFR (African American) 55 ML/MIN (>60); Globulin 3.6 g/dL (1.3-3.2); Glucose 209 mg/dl (74-100); Potassium 5.2 mmoL/L (3.5-5.1); Sodium 138 mmol/L (136-145); Total Protein,Serum 7.5 g/dl (6.3-8.2); Triglycerides 130 mg/dl (30-150); VLDL Cholesterol 26 mg/dL (0-40)
[2023-01-25 20:05] LABS: Hemoglobin A1C 8.5 % (4.0-6.0)
[2023-01-25 20:13] LABS: Direct LDL Cholesterol 80.18 mg/dL (100-129)
[2023-01-25 20:15] LABS: HDL Cholesterol 97 mg/dl (40-60)
[2023-01-25 21:10] LABS: Benzodiazepines Screen,Urine Negative ng/ml (<200)
[2023-01-25 21:11] LABS: Amphetamine/Metha Screen,Urine Negative ng/ml (<1000); Barbiturates Screen,Urine Negative ng/ml (<200)
[2023-01-25 21:12] LABS: Methadone Screen,Urine Negative ng/ml (<300)
[2023-01-25 21:13] LABS: Cannabinoid Screen,Urine Negative ng/ml (<50); Cocaine Screen,Urine Negative ng/ml (<300)
[2023-01-25 21:15] LABS: Opiate Screen,Urine Negative ng/ml (<300)
[2023-01-25 21:16] LABS: Phencyclidine Screen,Urine Negative ng/ml (<25)
[2023-01-25 21:46] LABS: Creatinine,Urine Random 62 mg/dL (Not Estab.)
[2023-01-25 22:05] LABS: Microalbumin/Creatinine Ratio 1418.5
== END ==
LOC: LAB.DROPOF 01-26 08:53
PROVIDERS: PCP Internal Medicine; Visit Provider Internal Medicine
DX: E11.65 Type 2 diabetes mellitus with hyperglycemia (principal); M54.16 Radiculopathy, lumbar region; Z79.4 Long term (current) use of insulin
CPT/HCPCS: 80053; 80061; 80305; 82043; 82570; 83036; 85025

== ENCOUNTER 2023-02-17 07:39 | Outpatient (CLI) | payer MEDICARE, MEDICAID, SELFPAY ==
[2023-02-17 19:47] LABS: Chloride 105 mmol/L (98-107); Potassium 4.9 mmoL/L (3.5-5.1); Sodium 141 mmol/L (136-145)
[2023-02-17 19:49] LABS: Blood Urea Nitrogen 37 mg/dl (7-17); Estimated Glomerular Filt Rate 42 ml/min (>60); GFR (African American) 50 ML/MIN (>60)
[2023-02-17 19:50] LABS: Alanine Aminotransferase 37 U/L (12-78); Albumin Level 3.8 g/dl (3.5-5.0); Albumin/Globulin Ratio 1.1 (1.1-1.8); Alkaline Phosphatase 133 U/L (38-126); Anion Gap 16.9 mEq/L (5-15); Aspartate Amino Transferase 44 U/L (14-36); Bilirubin,Total 0.5 mg/dl (0.2-1.3); Carbon Dioxide 24 mmol/L (22.0-30.0); Globulin 3.6 g/dL (1.3-3.2); Glucose 172 mg/dl (74-100); Total Protein,Serum 7.4 g/dl (6.3-8.2)
[2023-02-17 19:51] LABS: Calcium 9.3 mg/dl (8.4-10.2)
[2023-02-17 20:01] LABS: Basophils # 0.1 K/mm3 (0-0.2); Basophils % 0.8 % (0.1-2.0); Eosinophils # 0.3 K/mm3 (0.0-0.4); Eosinophils % 2.3 % (0.1-12.0); Hemoglobin 14.3 g/dL (12.2-16.2); Lymphocytes # 3.8 K/mm3 (0.7-4.5); Lymphocytes % 30.3 % (10-50); Mean Corpuscular HGB Conc 31.8 g/dL (31.8-35.4); Mean Corpuscular Volume 88.1 fl (81-99); Monocytes # 0.9 K/mm3 (0.1-1.0); Monocytes % 7.1 % (1.7-9.3); Neutrophils # 7.4 K/mm3 (1.8-7.8); Neutrophils % 59.5 % (37.0-80.0); Platelet Count 313 K/mm3 (142-424); Red Blood Count 5.11 M/mm3 (4.20-5.40); Red Cell Distribution Width 16.2 % (11.5-17.5); White Blood Count 12.5 K/mm3 (4.8-10.8)
[2023-02-19 14:35] LABS: HIV Screen 4th Generation wRfx Non Reactive (Non Reactive)
[2023-02-22 11:17] LABS: HBsAg Screen Negative (Negative); HCV Ab Reactive (Non Reactive); Hep A Ab, IGM Negative (Negative); Hep B Core Ab, IgM Negative (Negative)
== END 2023-02-17 23:59 ==
LOC: LAB.DROPOF 02-18 07:40
PROVIDERS: PCP Internal Medicine; Visit Provider Internal Medicine
DX: R53.83 Other fatigue (principal); E11.9 Type 2 diabetes mellitus without complications; B19.20 Unspecified viral hepatitis C without hepatic coma; E78.5 Hyperlipidemia, unspecified; L98.9 Disorder of the skin and subcutaneous tissue, unspecified; H93.13 Tinnitus, bilateral; R25.1 Tremor, unspecified; Z79.4 Long term (current) use of insulin; Z79.899 Other long term (current) drug therapy; Z11.4 Encounter for screening for human immunodeficiency virus [HIV]
CPT/HCPCS: 80053; 80074; 85025; 86703; G0432

== ENCOUNTER 2023-02-18 16:31 | Outpatient (CLI) | payer MEDICARE, MEDICAID, SELFPAY ==
--- NOTE | 2023-02-18 16:37 | XR_ITS ---
PROCEDURE INFORMATION: Exam: XR Left Foot Exam date and time: 02/18/2023 4:37 PM Age: 62 years old Clinical indication: Pain; Left; Patient HX: Dropped o2 tank on foot; Additional info: Pain in foot TECHNIQUE: Imaging protocol: Radiologic exam of the left foot. Views: 1 or 2 views. COMPARISON: CT ANGIO LE BI 08/16/2019 11:11 AM FINDINGS: Bones/joints: No evidence of acute fracture or malalignment. Lisfranc joint appears normal. Calcaneal enthesopathy. Soft tissues: Unremarkable. IMPRESSION: 1. No evidence of acute osseous abnormality in the left foot. 2. Calcaneal enthesopathy.
== END 2023-02-18 23:59 ==
LOC: RAD 16:32
PROVIDERS: PCP Internal Medicine; Visit Provider Internal Medicine
DX: M77.52 Other enthesopathy of left foot and ankle (principal); M79.672 Pain in left foot; W20.8XXA Other cause of strike by thrown, projected or falling object, initial encounter
CPT/HCPCS: 73620

== ENCOUNTER 2023-05-02 16:33 | Emergency (ER) | payer MEDICARE, MEDICAID, SELFPAY ==
[2023-05-02 17:00] VITALS: BP 184/90; PULSE 84; RESP 18; TEMP 36.6; O2SAT 94; BMI 21.8
--- NOTE | 2023-05-02 17:02 | XR_ITS ---
PROCEDURE INFORMATION: Exam: XR Right Foot Exam date and time: 05/02/2023 5:40 PM Age: 63 years old Clinical indication: Injury or trauma; Fall; Blunt trauma; Foot; Right; Additional info: Fall x 3 days ago. Pain and swelling TECHNIQUE: Imaging protocol: Radiologic exam of the right foot. Views: 3 or more views. COMPARISON: CT ANGIO LE BI 08/16/2019 11:11 AM FINDINGS: Bones/joints: Small marginal osteophytes and degenerative changes involving the 1st MTP joint. No evidence of acute osseous abnormality. Soft tissues: Moderate soft tissue swelling of the forefoot. IMPRESSION: 1. Small marginal osteophytes and degenerative changes involving the 1st MTP joint. 2. No evidence of acute osseous abnormality. 3. Moderate soft tissue swelling of the forefoot.
--- NOTE | 2023-05-02 17:02 | XR_ITS ---
PROCEDURE INFORMATION: Exam: XR Right Ankle Exam date and time: 05/02/2023 5:42 PM Age: 63 years old Clinical indication: Injury or trauma; Fall; Blunt trauma; Ankle; Right; Additional info: Fall x 3 days ago. Pain and swelling TECHNIQUE: Imaging protocol: Radiologic exam of the right ankle. Views: 3 or more views. COMPARISON: CT ANGIO LE BI 08/16/2019 11:11 AM FINDINGS: Bones/joints: Intermediate sized enthesophytes involving the calcaneus at the plantar fascia insertion. Soft tissues: Moderate soft tissue swelling of the ankle without acute osseous abnormality. IMPRESSION: 1. Moderate soft tissue swelling of the ankle without acute osseous abnormality. 2. Intermediate sized enthesophytes involving the calcaneus at the plantar fascia insertion.
--- NOTE | 2023-05-02 17:31 | ED_ITS ---
Discharge Plan Disposition Patient Disposition: Home, Self-Care Condition: Good Prescriptions Prescriptions: No Action Humulin 70/30 U-100 KwikPen 100 unit/mL (70-30) insulin pen SQ metformin 500 mg tablet 1,000 mg PO BID 90 Days Qty: 360 2RF Humulin 70/30 U-100 Insulin 100 unit/mL (70-30) suspension 12 unit SQ BID buspirone 5 mg tablet 10 mg PO BID 30 Days Qty: 60 4RF gabapentin 300 mg capsule 300 mg PO TID Qty: 90 2RF oxycodone-acetaminophen 7.5-325 mg tablet 1 tab PO QID PRN (Reason: Pain) Qty: 120 0RF topiramate 50 mg tablet 50 mg PO BID Qty: 180 0RF Farxiga 10 mg tablet See Rx Instructions .ROUTE .COMPLEX Qty: 90 3RF Dose Instruction: TAKE ONE TABLET BY MOUTH EVERY DAY Rx Instructions: TAKE ONE TABLET BY MOUTH EVERY DAY clopidogrel 75 mg tablet See Rx Instructions .ROUTE .COMPLEX Qty: 30 0RF Dose Instruction: TAKE ONE TABLET BY MOUTH EVERY DAY Rx Instructions: TAKE ONE TABLET BY MOUTH EVERY DAY isosorbide mononitrate 30 mg tablet extended release 24 hr See Rx Instructions .ROUTE .COMPLEX Qty: 90 0RF Dose Instruction: TAKE ONE TABLET BY MOUTH EVERY DAY Rx Instructions: TAKE ONE TABLET BY MOUTH EVERY DAY atorvastatin 10 mg tablet See Rx Instructions .ROUTE .COMPLEX Qty: 90 0RF Dose Instruction: TAKE ONE TABLET BY MOUTH EVERY DAY AT BEDTIME Rx Instructions: TAKE ONE TABLET BY MOUTH EVERY DAY AT BEDTIME famotidine 20 mg tablet See Rx Instructions .ROUTE .COMPLEX Qty: 120 0RF Dose Instruction: TAKE ONE TABLET BY MOUTH TWICE DAILY Rx Instructions: TAKE ONE TABLET BY MOUTH TWICE DAILY pantoprazole 40 mg tablet,delayed release (DR/EC) 40 mg PO DAILY Qty: 90 0RF sertraline 100 mg tablet See Rx Instructions .ROUTE .COMPLEX Qty: 45 2RF Dose Instruction: TAKE 1 AND 1/2 TABLET BY MOUTH EVERY DAY Rx Instructions: TAKE 1 AND 1/2 TABLET BY MOUTH EVERY DAY albuterol sulfate 90 mcg/actuation HFA aerosol inhaler 2 puff INHALATION Q4HP PRN (Reason: Breathing Problems) Patient Comments: INHALE TWO PUFFS BY MOUTH EVERY 4 HOURS NEEDED FOR SHORTNESS OF BREATH Eliquis 5 mg tablet 5 mg PO BID Patient Comments: TAKE ONE TABLET BY MOUTH TWICE DAILY FOR BLOOD THINNER Referrals Follow up/Referrals: Cornell Hernandez DO [Primary Care Provider] - See instructions Jenn Ochoa DPM [Staff Physician] - See instructions Activity Restrictions/Add. Instructions Additional Instructions/Restrictions: Rest the extremity, Elevate the extremity as tolerated while you are resting. Take tylenol for pain. Follow up with Dr. Ochoa (podiatry). I put in a referral but you need to call her office and schedule an appointment. Follow up with your regular doctor. GO TO THE ER FOR ANY WORSENING SYMPTOMS Clinical Impressions Clinical Impression: Right foot sprain, Right ankle sprain Instructions Patient Instructions: DI for Ankle Sprain, DI for Foot Sprain Discharge ED Provider: Sherman Brian [facility] General Stated complaint: AO05/01 RT ankle inj Time Seen by Provider: 05/02/23 17:30 History of Present Illness Provider Complaint: She states that she twisted her right ankle and foot yesterday and fell. Since then she has had right foot and ankle pain and swelling. She denies any other pain or injury. Related Data Home Medications Medication Instructions Recorded Confirmed albuterol sulfate 90 mcg/actuation 2 puff inhalation Q4HP PRN 09/06/22 03/31/23 aerosol inhaler Breathing Problems apixaban 5 mg tablet (Eliquis) 5 mg PO BID Blood Thinner 09/06/22 03/31/23 insulin NPH-regular 70-30 U-100 SQ 11/26/22 03/31/23 insulin 100 unit/mL subcutaneous pen (Humulin 70/30 U-100 KwikPen) insulin human U-100 NPH-regulr 12 unit SQ BID 02/17/23 03/31/23 70-30 mix 100 unit/mL subcutaneous susp (Humulin 70/30 U-100 Insulin) Previous Rx's Medication Instructions Recorded topiramate 50 mg tablet 50 mg PO BID Migraine #180 tabs 11/29/22 dapagliflozin propanediol 10 mg See Rx Instructions .Route 11/30/22 tablet (Farxiga) .COMPLEX #90 tabs clopidogrel 75 mg tablet See Rx Instructions .Route 01/05/23 .COMPLEX #30 tabs metformin 500 mg tablet 1,000 mg (2 x 500 mg) PO BID 02/17/23 Diabetes 90 days #360 tabs atorvastatin 10 mg tablet See Rx Instructions .Route 03/25/23 .COMPLEX #90 tabs famotidine 20 mg tablet See Rx Instructions .Route 03/25/23 .COMPLEX #120 tabs isosorbide mononitrate 30 mg See Rx Instructions .Route 03/25/23 tablet,extended release 24 hr .COMPLEX #90 tabs pantoprazole 40 mg tablet,delayed 40 mg PO DAILY Acid Reflux #90 tabs 03/25/23 release buspirone 5 mg tablet 10 mg (2 x 5 mg) PO BID 30 days 03/31/23 #60 tabs gabapentin 300 mg capsule 300 mg PO TID #90 caps 03/31/23 oxycodone-acetaminophen 7.5 mg-325 1 tab PO QID PRN Pain #120 tabs 03/31/23 mg tablet sertraline 100 mg tablet See Rx Instructions .Route 04/19/23 .COMPLEX #45 tabs Allergies Allergy/AdvReac Type Severity Reaction Status Date / Time methocarbamol Allergy Severe Altered Verified 05/02/23 17:33 mental status terbutaline [TERBUTALINE] Allergy Severe SWELLS Verified 05/02/23 17:33 THROAT aspirin [ASPIRIN] Allergy Intermediate I-RASH Verified 05/02/23 17:33 codeine [CODEINE] Allergy Intermediate Swelling Verified 05/02/23 17:33 of the Eye diphenhydramine Allergy Intermediate Hives Verified 05/02/23 17:33 [From Benadryl] Sulfa (Sulfonamide Allergy Intermediate Hives Verified 05/02/23 17:33 Antibiotics) [SULFA (SULFONAMIDE ANTIBIOTICS)] sulfamethoxazole Allergy Intermediate Hives Verified 05/02/23 17:33 [From Bactrim] trimethoprim [From Bactrim] Allergy Intermediate Hives Verified 05/02/23 17:33 naproxen [NAPROXEN] Allergy Mild itching Verified 05/02/23 17:33 tramadol [TRAMADOL] Allergy Mild Vomiting Verified 05/02/23 17:33 citalopram [CITALOPRAM] Allergy Unknown SKIN PEEL Verified 05/02/23 17:33 erythromycin base Allergy Unknown I-RASH Verified 05/02/23 17:33 [ERYTHROMYCIN BASE] Penicillins [PENICILLINS] Allergy Unknown I-RASH Verified 05/02/23 17:33 bupropion [BUPROPION] AdvReac Severe Hallucinati Verified 05/02/23 17:33 ng duloxetine [DULOXETINE] AdvReac Severe Hallucinati Verified 05/02/23 17:33 ng pregabalin [PREGABALIN] AdvReac Severe Hallucinati Verified 05/02/23 17:33 ng celecoxib [From CELEBREX] AdvReac Mild Vomiting Verified 05/02/23 17:33 [facility] Disclaimer: The information contained in this section may have been updated after the patient was seen, as this information can be updated by other users. Medical History Abdominal pain Abnormal ankle brachial index (DAVE) Abnormal computed tomography angiography (CTA) of abdomen and pelvis Acquired hammer toes of both feet Acute exacerbation of chronic obstructive airways disease Acute worsening of stage 3 chronic kidney disease RAGHAV (acute kidney injury) Anxiety Atrial fibrillation Back pain C. difficile colitis Cauda equina syndrome Cellulitis of right foot Chest pain Chest pain Chronic deep vein thrombosis (DVT) of right lower extremity Chronic kidney disease Claudication Closed femur fracture Community acquired pneumonia Congestive heart failure COPD (chronic obstructive pulmonary disease) Decreased pedal pulses Depression Diabetes mellitus Diabetes mellitus with neuropathy Diabetes mellitus, type 2 Will check an HbA1c today additionally a complete metabolic panel and CBC. Will also check a microalbumin. Patient's A1c's in the past have been high so we will be aggressive in trying to get these better controlled. Patient is currently on dapagliflozin, insulin, metformin. Her metformin is only 500 mg twice a day and we certainly can increase this. Will get her A1c's and see where we are with this and adjust as appropriate. We will do all of the above until she can be seen by endocrinology and they can give their input as to how best to control her blood sugars. Diabetic peripheral neuropathy associated with type 2 diabetes mellitus DVT (deep venous thrombosis) Elevated left ventricular end-diastolic pressure (LVEDP) Endothelial dysfunction of coronary artery Failure to thrive Foot pain, left Very concerned about the possibility of fracture in this patient. Will send her for x-rays. Foot pain, right Hep B w/o coma Hep C w/o coma, chronic Hepatitis B Hepatitis C Hip fracture History of gastroesophageal reflux (GERD) History of hip fracture History of transient ischemic attack (TIA) HTN (hypertension) Blood pressure appears to be well-controlled at least by our records here in the clinic. She is currently taking nothing for blood pressure. Will just follow closely. 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, bilateral Other specified symptoms and signs involving the circulatory and respiratory systems Overweight (BMI 25.0-29.9) PAD (peripheral artery disease) Plantar fasciitis, left Primary osteoarthritis of both feet Pyelonephritis Renal insufficiency Restless leg syndrome Sepsis Sleep apnea SOB (shortness of breath) on exertion Vaginal pain Surgical History History of appendectomy History of cardiac cath History of cholecystectomy History of hysterectomy Family History Other Coronary artery disease Family history of diabetes mellitus type II Family history of hyperlipidemia Family history of hypertension Social History Smoking Status: Smoker, status unknown tobacco type: cigarettes packs per day: 2 second hand exposure: Yes alcohol intake: never counseling provided: none substance use type: denies use current occupational status: retired Travel in the last 8 weeks: None household members: none housing: house lives independently: Yes marital status: education level: middle school current occupational exposures/hazards: No caffeine: Yes special ping needs: No agree to transfusion: No do you feel safe at home: Yes victim of physical abuse: No victim of emotional abuse: No victim of sexual abuse: No would you like helpful sources: No ROS Obtained: Yes All systems reviewed & no additional complaints except as documented Constitutional Constitutional: Denies chills and Denies fever(s) Eyes Eyes: Denies eye discharge ENT Ears, Nose, Mouth, and Throat: Denies dizziness, Denies otalgia and Denies sore throat Cardiovascular Cardiovascular: Denies chest pain Respiratory Respiratory: Denies shortness of breath, Denies chest congestion, Denies cough, Denies stridor and Denies wheezing Gastrointestinal Gastrointestingal: Denies nausea or vomiting Musculoskeletal Musculoskeletal: Reports as per HPI Integumentary/Breasts Skin/Breast: Denies rash Neurologic Neurologic: Denies dizziness and Denies paresthesias Allergic/Immunologic Allergic/Immunologic: Denies wheezing Physical Exam General General appearance: alert and in no apparent distress Head Head exam: atraumatic, normocephalic and normal inspection Eye Eye exam: Present normal appearance, PERRL and EOMI ENT ENT exam: Present normal exam, normal oropharynx, mucous membranes moist, TM's normal bilaterally and normal external ear exam Neck Neck exam: Present normal inspection, full ROM and trachea midline; Absent meningismus or lymphadenopathy Chest Chest inspection: Present normal inspection and symmetric chest wall rise; Absent tenderness Respiratory Respiratory exam: Present normal lung sounds bilaterally; Absent respiratory distress Cardiovascular Cardiovascular exam: Present regular rate and normal rhythm; Absent JVD Abdominal Exam Abdominal exam: Present soft and normal bowel sounds; Absent distention, tenderness or guarding Extremities Exam Extremities exam: Present normal capillary refill; Absent calf tenderness Expanded Lower Extremity Exam Right: Knee exam: Present normal inspection, full ROM and knee extension intact; Absent tenderness, swelling, abrasion, laceration, ecchymosis, deformity, crepitus, dislocation, erythema, effusion, anterior drawer sign, posterior draw sign, pain with valgus, laxity with valgus, pain with varus or laxity with varus Lower leg exam: Present normal inspection and full ROM; Absent tenderness, swelling, abrasion, laceration, ecchymosis, deformity, crepitus, dislocation, erythema, palpable cord, Homans' sign or Achilles tendon intact Ankle exam: Present tenderness and swelling; Absent full ROM, abrasion, laceration, ecchymosis, deformity, crepitus, dislocation, erythema, tenderness over talofibular lig or anterior draw sign Foot/toe exam: Present tenderness and swelling; Absent full ROM, abrasion, laceration, ecchymosis, deformity, crepitus, dislocation, erythema, amputation, puncture wound, foreign body, calcaneal tenderness, tenderness at base of 5th metatarsal, nail avulsion or subungual hematoma Neurovascular/Tendon exam: Present normal capillary refill and normal 2- point discrimination; Absent pulse deficit, motor deficit, sensory deficit, tendon deficit, extremity cold to touch or pallor Gait: observed and limited by pain Back Exam Back exam: Present normal inspection; Absent tenderness Neurological Exam Neurological exam: Present alert and oriented X3 Psychiatric Psychiatric exam: Present normal affect and normal mood Skin Skin exam: Present warm, dry, intact and normal color Lymphatic Lymphatic Findings: no adenopathy Medical Decision Making Medical Records Medical records reviewed: No I reviewed the patient's medical records. Jordin Inquiry Pt receiving controlled substance: No Orders (Tests/Meds): ORDERS Category Date Time Status Ankle XR -Right minimum 3 Views [XR ankle RT min 3V] Exams 05/02/23 17:02 Ordered Stat XR foot RT min 3V Stat Exams 05/02/23 17:02 Ordered Radiology Data #1: Image(s): Ankle Image Reviewed: Yes I reviewed the patient's radiology image and Yes I have reviewed radiologist's interpretation Preliminary Findings: No Fracture Seen PROCEDURE INFORMATION: Exam: XR Right Ankle Exam date and time: 05/02/2023 5:42 PM Age: 63 years old Clinical indication: Injury or trauma; Fall; Blunt trauma; Ankle; Right; Additional info: Fall x 3 days ago. Pain and swelling TECHNIQUE: Imaging protocol: Radiologic exam of the right ankle. Views: 3 or more views. COMPARISON: CT ANGIO LE BI 08/16/2019 11:11 AM FINDINGS: Bones/joints: Intermediate sized enthesophytes involving the calcaneus at the plantar fascia insertion. Soft tissues: Moderate soft tissue swelling of the ankle without acute osseous abnormality. IMPRESSION: 1. Moderate soft tissue swelling of the ankle without acute osseous abnormality. 2. Intermediate sized enthesophytes involving the calcaneus at the plantar fascia insertion. #2: Image(s): Foot/Toes Image Reviewed: Yes I reviewed the patient's radiology image and Yes I have reviewed radiologist's interpretation Preliminary Findings: No Fracture Seen PROCEDURE INFORMATION: Exam: XR Right Foot Exam date and time: 05/02/2023 5:40 PM Age: 63 years old Clinical indication: Injury or trauma; Fall; Blunt trauma; Foot; Right; Additional info: Fall x 3 days ago. Pain and swelling TECHNIQUE: Imaging protocol: Radiologic exam of the right foot. Views: 3 or more views. COMPARISON: CT ANGIO LE BI 08/16/2019 11:11 AM FINDINGS: Bones/joints: Small marginal osteophytes and degenerative changes involving the 1st MTP joint. No evidence of acute osseous abnormality. Soft tissues: Moderate soft tissue swelling of the forefoot. IMPRESSION: 1. Small marginal osteophytes and degenerative changes involving the 1st MTP joint. 2. No evidence of acute osseous abnormality. 3. Moderate soft tissue swelling of the forefoot. Procedures Risk/Benefits of Procedure(s) Were Explained: Yes Orthopedic Splinting/Casting Injury #1: Side: right Lower Extremity Injury Location: ankle and foot Lower Extremity Immobilizer: Walt wrap and applied by nurse/dr [place] Additional Comments: She is going to use her wheelchair that she already has at home. Post Cast/Splinting Neuro Status: intact and no change Post Cast/Splinting Vasc Status: intact and no change
[2023-05-02 18:31] VITALS: BP 140/84; PULSE 72; RESP 18; TEMP 37; O2SAT 100
== END 2023-05-02 18:31 | disposition home or self-care (01) ==
PROVIDERS: Emergency Provider Nurse Practitioner Family; PCP Internal Medicine
DX: S93.401A Sprain of unspecified ligament of right ankle, initial encounter (principal); S93.601A Unspecified sprain of right foot, initial encounter; X50.1XXA Overexertion from prolonged static or awkward postures, initial encounter; J44.9 Chronic obstructive pulmonary disease, unspecified; I48.91 Unspecified atrial fibrillation; I13.0 Hypertensive heart and chronic kidney disease with heart failure and stage 1 through stage 4 chronic kidney disease, or unspecified chronic kidney disease; N18.30 Chronic kidney disease, stage 3 unspecified; I50.9 Heart failure, unspecified; E11.41 Type 2 diabetes mellitus with diabetic mononeuropathy; E11.22 Type 2 diabetes mellitus with diabetic chronic kidney disease; E11.51 Type 2 diabetes mellitus with diabetic peripheral angiopathy without gangrene; B18.2 Chronic viral hepatitis C; E78.5 Hyperlipidemia, unspecified; Z86.73 Personal history of transient ischemic attack (TIA), and cerebral infarction without residual deficits; G47.33 Obstructive sleep apnea (adult) (pediatric); F17.210 Nicotine dependence, cigarettes, uncomplicated; M19.071 Primary osteoarthritis, right ankle and foot; M19.072 Primary osteoarthritis, left ankle and foot
CPT/HCPCS: 73610; 73630; 99203; 99212; G0463

== ENCOUNTER 2023-05-07 11:57 | Emergency (ER) | payer MEDICARE, MEDICAID, SELFPAY ==
[2023-05-07 12:05] VITALS: BP 170/93; PULSE 81; RESP 20; TEMP 36.9; O2SAT 94; BMI 21.9
--- NOTE | 2023-05-07 12:10 | PC.NURSE ---
Dr. Vivas at [facility] for pt eval
--- NOTE | 2023-05-07 12:13 | CT_ITS ---
PROCEDURE INFORMATION: Exam: CT Right Lower Extremity Without Contrast; Lower Leg Exam date and time: 05/07/2023 12:38 PM Age: 63 years old Clinical indication: Swelling, leg or foot; Additional info: Swelling, pain, neg xrs TECHNIQUE: Imaging protocol: CT of the right lower extremity without contrast was performed. Exam focused on the lower leg. Radiation optimization: All CT scans at this facility use at least one of these dose optimization techniques: automated exposure control; mA and/or kV adjustment per patient size (includes targeted exams where dose is matched to clinical indication); or iterative reconstruction. COMPARISON: CT ANGIO LE BI 08/16/2019 11:11 AM FINDINGS: Bones/joints: Incomplete visualization of the distal most aspect of an intramedullary madie, distal femur. Soft tissues: Extensive diffuse subcutaneous edema throughout the right lower extremity. Findings may reflect changes of cellulitis. Clinically correlate. Vasculature: Atherosclerotic vascular disease. IMPRESSION: 1. Extensive diffuse subcutaneous edema throughout the right lower extremity. Findings may reflect changes of cellulitis. Clinically correlate. 2. No evidence of acute osseous injury.
--- NOTE | 2023-05-07 12:18 | HMH.EDGENADL ---
Discharge Plan Disposition Patient Disposition: Home, Self-Care Prescriptions Prescriptions: No Action Humulin 70/30 U-100 KwikPen 100 unit/mL (70-30) insulin pen SQ metformin 500 mg tablet 1,000 mg PO BID 90 Days Qty: 360 2RF Humulin 70/30 U-100 Insulin 100 unit/mL (70-30) suspension 12 unit SQ BID buspirone 5 mg tablet 10 mg PO BID 30 Days Qty: 60 4RF gabapentin 300 mg capsule 300 mg PO TID Qty: 90 2RF oxycodone-acetaminophen 7.5-325 mg tablet 1 tab PO QID PRN (Reason: Pain) Qty: 120 0RF topiramate 50 mg tablet 50 mg PO BID Qty: 180 0RF Farxiga 10 mg tablet See Rx Instructions .ROUTE .COMPLEX Qty: 90 3RF Dose Instruction: TAKE ONE TABLET BY MOUTH EVERY DAY Rx Instructions: TAKE ONE TABLET BY MOUTH EVERY DAY clopidogrel 75 mg tablet See Rx Instructions .ROUTE .COMPLEX Qty: 30 0RF Dose Instruction: TAKE ONE TABLET BY MOUTH EVERY DAY Rx Instructions: TAKE ONE TABLET BY MOUTH EVERY DAY isosorbide mononitrate 30 mg tablet extended release 24 hr See Rx Instructions .ROUTE .COMPLEX Qty: 90 0RF Dose Instruction: TAKE ONE TABLET BY MOUTH EVERY DAY Rx Instructions: TAKE ONE TABLET BY MOUTH EVERY DAY atorvastatin 10 mg tablet See Rx Instructions .ROUTE .COMPLEX Qty: 90 0RF Dose Instruction: TAKE ONE TABLET BY MOUTH EVERY DAY AT BEDTIME Rx Instructions: TAKE ONE TABLET BY MOUTH EVERY DAY AT BEDTIME famotidine 20 mg tablet See Rx Instructions .ROUTE .COMPLEX Qty: 120 0RF Dose Instruction: TAKE ONE TABLET BY MOUTH TWICE DAILY Rx Instructions: TAKE ONE TABLET BY MOUTH TWICE DAILY pantoprazole 40 mg tablet,delayed release (DR/EC) 40 mg PO DAILY Qty: 90 0RF sertraline 100 mg tablet See Rx Instructions .ROUTE .COMPLEX Qty: 45 2RF Dose Instruction: TAKE 1 AND 1/2 TABLET BY MOUTH EVERY DAY Rx Instructions: TAKE 1 AND 1/2 TABLET BY MOUTH EVERY DAY albuterol sulfate 90 mcg/actuation HFA aerosol inhaler 2 puff INHALATION Q4HP PRN (Reason: Breathing Problems) Patient Comments: INHALE TWO PUFFS BY MOUTH EVERY 4 HOURS NEEDED FOR SHORTNESS OF BREATH Eliquis 5 mg tablet 5 mg PO BID Patient Comments: TAKE ONE TABLET BY MOUTH TWICE DAILY FOR BLOOD THINNER Referrals Follow up/Referrals: Reggie Mix DO [Staff Physician] - See instructions Cornell Hernandez DO [Primary Care Provider] - See instructions Activity Restrictions/Add. Instructions Additional Instructions/Restrictions: No fracture or dislocation on your CT scan today. Use your walking boot to bear weight as tolerated. Please follow-up with Dr. Mix for further evaluation and management. Clinical Impressions Clinical Impression: Right ankle sprain, Traumatic ecchymosis of right lower leg Discharge ED Provider: Mary Kate Vivas General Adult HPI General Chief complaint: Extremity Injury, Lower Stated complaint: right leg bruising pain swelling worsening Time Seen by Provider: 05/07/23 12:10 Mode of Arrival: Wheelchair Source of Information: Patient Limitations: Physical Limitations Description of Symptoms (Recalled from ER Triage Doc. by RN): r foot/ankle History of Present Illness HPI narrative: Patient is a 63-year-old female presenting today with worsening pain swelling ecchymosis over her right lower extremity from her distal tib-fib or ankle and foot. She is on Eliquis. She had an injury on the went to urgent treatment clinic on the had negative plain films was given an Walt wrap has not had significant worsening of her symptoms and thus to return to the ED. Related Data Home Medications Medication Instructions Recorded Confirmed albuterol sulfate 90 mcg/actuation 2 puff inhalation Q4HP PRN 09/06/22 03/31/23 aerosol inhaler Breathing Problems apixaban 5 mg tablet (Eliquis) 5 mg PO BID Blood Thinner 09/06/22 03/31/23 insulin NPH-regular 70-30 U-100 SQ 11/26/22 03/31/23 insulin 100 unit/mL subcutaneous pen (Humulin 70/30 U-100 KwikPen) insulin human U-100 NPH-regulr 12 unit SQ BID 02/17/23 03/31/23 70-30 mix 100 unit/mL subcutaneous susp (Humulin 70/30 U-100 Insulin) Previous Rx's Medication Instructions Recorded topiramate 50 mg tablet 50 mg PO BID Migraine #180 tabs 11/29/22 dapagliflozin propanediol 10 mg See Rx Instructions .Route 11/30/22 tablet (Farxiga) .COMPLEX #90 tabs clopidogrel 75 mg tablet See Rx Instructions .Route 01/05/23 .COMPLEX #30 tabs metformin 500 mg tablet 1,000 mg (2 x 500 mg) PO BID 02/17/23 Diabetes 90 days #360 tabs atorvastatin 10 mg tablet See Rx Instructions .Route 03/25/23 .COMPLEX #90 tabs famotidine 20 mg tablet See Rx Instructions .Route 03/25/23 .COMPLEX #120 tabs isosorbide mononitrate 30 mg See Rx Instructions .Route 03/25/23 tablet,extended release 24 hr .COMPLEX #90 tabs pantoprazole 40 mg tablet,delayed 40 mg PO DAILY Acid Reflux #90 tabs 03/25/23 release buspirone 5 mg tablet 10 mg (2 x 5 mg) PO BID 30 days 03/31/23 #60 tabs gabapentin 300 mg capsule 300 mg PO TID #90 caps 03/31/23 oxycodone-acetaminophen 7.5 mg-325 1 tab PO QID PRN Pain #120 tabs 03/31/23 mg tablet sertraline 100 mg tablet See Rx Instructions .Route 04/19/23 .COMPLEX #45 tabs Allergies Allergy/AdvReac Type Severity Reaction Status Date / Time methocarbamol Allergy Severe Altered Verified 05/02/23 17:33 mental status terbutaline [TERBUTALINE] Allergy Severe SWELLS Verified 05/02/23 17:33 THROAT aspirin [ASPIRIN] Allergy Intermediate I-RASH Verified 05/02/23 17:33 codeine [CODEINE] Allergy Intermediate Swelling Verified 05/02/23 17:33 of the Eye diphenhydramine Allergy Intermediate Hives Verified 05/02/23 17:33 [From Benadryl] Sulfa (Sulfonamide Allergy Intermediate Hives Verified 05/02/23 17:33 Antibiotics) [SULFA (SULFONAMIDE ANTIBIOTICS)] sulfamethoxazole Allergy Intermediate Hives Verified 05/02/23 17:33 [From Bactrim] trimethoprim [From Bactrim] Allergy Intermediate Hives Verified 05/02/23 17:33 naproxen [NAPROXEN] Allergy Mild itching Verified 05/02/23 17:33 tramadol [TRAMADOL] Allergy Mild Vomiting Verified 05/02/23 17:33 citalopram [CITALOPRAM] Allergy Unknown SKIN PEEL Verified 05/02/23 17:33 erythromycin base Allergy Unknown I-RASH Verified 05/02/23 17:33 [ERYTHROMYCIN BASE] Penicillins [PENICILLINS] Allergy Unknown I-RASH Verified 05/02/23 17:33 bupropion [BUPROPION] AdvReac Severe Hallucinati Verified 05/02/23 17:33 ng duloxetine [DULOXETINE] AdvReac Severe Hallucinati Verified 05/02/23 17:33 ng pregabalin [PREGABALIN] AdvReac Severe Hallucinati Verified 05/02/23 17:33 ng celecoxib [From CELEBREX] AdvReac Mild Vomiting Verified 05/02/23 17:33 [facility] Disclaimer: The information contained in this section may have been updated after the patient was seen, as this information can be updated by other users. Medical History Abdominal pain Abnormal ankle brachial index (DAVE) Abnormal computed tomography angiography (CTA) of abdomen and pelvis Acquired hammer toes of both feet Acute exacerbation of chronic obstructive airways disease Acute worsening of stage 3 chronic kidney disease RAGHAV (acute kidney injury) Anxiety Atrial fibrillation Back pain C. difficile colitis Cauda equina syndrome Cellulitis of right foot Chest pain Chest pain Chronic deep vein thrombosis (DVT) of right lower extremity Chronic kidney disease Claudication Closed femur fracture Community acquired pneumonia Congestive heart failure COPD (chronic obstructive pulmonary disease) Decreased pedal pulses Depression Diabetes mellitus Diabetes mellitus with neuropathy Diabetes mellitus, type 2 Will check an HbA1c today additionally a complete metabolic panel and CBC. Will also check a microalbumin. Patient's A1c's in the past have been high so we will be aggressive in trying to get these better controlled. Patient is currently on dapagliflozin, insulin, metformin. Her metformin is only 500 mg twice a day and we certainly can increase this. Will get her A1c's and see where we are with this and adjust as appropriate. We will do all of the above until she can be seen by endocrinology and they can give their input as to how best to control her blood sugars. Diabetic peripheral neuropathy associated with type 2 diabetes mellitus DVT (deep venous thrombosis) Elevated left ventricular end-diastolic pressure (LVEDP) Endothelial dysfunction of coronary artery Failure to thrive Foot pain, left Very concerned about the possibility of fracture in this patient. Will send her for x-rays. Foot pain, right Hep B w/o coma Hep C w/o coma, chronic Hepatitis B Hepatitis C Hip fracture History of gastroesophageal reflux (GERD) History of hip fracture History of transient ischemic attack (TIA) HTN (hypertension) Blood pressure appears to be well-controlled at least by our records here in the clinic. She is currently taking nothing for blood pressure. Will just follow closely. 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, bilateral Other specified symptoms and signs involving the circulatory and respiratory systems Overweight (BMI 25.0-29.9) PAD (peripheral artery disease) Plantar fasciitis, left Primary osteoarthritis of both feet Pyelonephritis Renal insufficiency Restless leg syndrome Sepsis Sleep apnea SOB (shortness of breath) on exertion Vaginal pain Surgical History History of appendectomy History of cardiac cath History of cholecystectomy History of hysterectomy Family History Other Coronary artery disease Family history of diabetes mellitus type II Family history of hyperlipidemia Family history of hypertension Social History Smoking Status: Current every day smoker tobacco type: cigarettes packs per day: 2 second hand exposure: Yes alcohol intake: never counseling provided: none substance use type: denies use current occupational status: retired Travel in the last 8 weeks: None household members: none housing: house lives independently: Yes marital status: education level: middle school current occupational exposures/hazards: No caffeine: Yes special ping needs: No agree to transfusion: No do you feel safe at home: Yes victim of physical abuse: No victim of emotional abuse: No victim of sexual abuse: No would you like helpful sources: No ROS Obtained: Yes All systems reviewed & no additional complaints except as documented Physical Exam General General appearance: alert and in no apparent distress Respiratory Respiratory exam: Present normal lung sounds bilaterally Cardiovascular Cardiovascular exam: Present regular rate and normal rhythm Extremities Exam Extremities exam: Present other (Significant pain and swelling over the distal tib-fib lateral ankle and proximal foot with extensive soft tissue swelling and ecchymosis neurovascular intact) Neurological Exam Neurological exam: Present alert and oriented X3 Medical Decision Making Jordin Inquiry Pt receiving controlled substance: No Vital Signs: 05/07/23 12:05 05/07/23 12:30 Temperature 98.4 F Temperature Source Oral Pulse Rate 86 Pulse Rate [Right] 81 Respiratory Rate 20 Blood Pressure 170/92 H Blood Pressure [Right Arm] 170/93 H Blood Pressure Mean [Right Arm] 118 02 Sat by Pulse Oximetry 94 L 93 L Oxygen Delivery Method Room Air Room Air Orders (Tests/Meds): ORDERS Category Date Time Status CT lower leg RT wo con Stat Cat Scan 05/07/23 12:13 Taken Medical Decision Narrative: Patient with above history and physical most likely ankle and foot sprain and significant soft tissue swelling and ecchymosis secondary to her Eliquis use. I reviewed patient's x-rays and will get a CT scan of her lower extremity make sure there is not an occult fracture. Otherwise she will be placed in a walking boot and advised to follow-up with orthopedic surgery for an outpatient MRI. Reassessment 1:[address] scan performed at person interpreted which shows no occult fracture. She has been given a walking boot to wear as needed and bear weight as tolerated. Referral to Dr. Mix has been given as well for discussion of the possible outpatient MRI versus other management. She is also been advised to compress and elevate her foot when possible. Critical Care Critical Care Time Critical Care Time: No
[2023-05-07 12:30] VITALS: BP 170/92; PULSE 86; O2SAT 93
--- NOTE | 2023-05-07 12:42 | PC.NURSE ---
pt back from ct scan via wheelchair
--- NOTE | 2023-05-07 12:46 | PC.NURSE ---
pt given diet osito bailey'ed by
[2023-05-07 13:27] VITALS: BP 148/99; PULSE 85; RESP 22; TEMP 36.7; O2SAT 94
== END 2023-05-07 13:36 | disposition home or self-care (01) ==
PROVIDERS: Emergency Provider Student in an Organized Health Care Education/Training Program; PCP Internal Medicine
DX: S93.401A Sprain of unspecified ligament of right ankle, initial encounter (principal); S80.11XA Contusion of right lower leg, initial encounter; F17.210 Nicotine dependence, cigarettes, uncomplicated; E11.9 Type 2 diabetes mellitus without complications; I48.0 Paroxysmal atrial fibrillation; I10 Essential (primary) hypertension; E78.5 Hyperlipidemia, unspecified; I73.9 Peripheral vascular disease, unspecified; Z79.01 Long term (current) use of anticoagulants; Z79.84 Long term (current) use of oral hypoglycemic drugs; Z79.4 Long term (current) use of insulin; X58.XXXA Exposure to other specified factors, initial encounter
CPT/HCPCS: 73700; 99284

== ENCOUNTER 2023-05-27 14:56 | Inpatient (IN) | payer MEDICARE, MEDICAID, SELFPAY ==
[2023-05-27] VITALS (9 sets, daily range): BP systolic 108–186; BP diastolic 77–113; PULSE 79–98; RESP 13–18; TEMP 36.8–37.2; O2SAT 91–95; BMI 21.8; BMI 22.4
--- NOTE | 2023-05-27 15:09 | PC.NURSE ---
PT ambulatory to bathroom with use of cane and 1 person assist
--- NOTE | 2023-05-27 15:33 | XR_ITS ---
PROCEDURE INFORMATION: Exam: XR Pelvis Exam date and time: 05/27/2023 4:17 PM Age: 63 years old Clinical indication: Hip pain; Left hip; Additional info: L hip pain TECHNIQUE: Imaging protocol: Radiologic exam of the pelvis. Views: 1 or 2 view. COMPARISON: CT ABDOMEN PELVIS WO CON 10/15/2021 4:35 PM FINDINGS: Bones/joints: Stable fixation involving the right hip with heterotopic calcification medially. Arthritic changes involving the left hip with mild superolateral joint space narrowing and moderate osteophytic spurring. No fracture, dislocation or subluxation that appears acute. Soft tissues: Unremarkable. Intraperitoneal space: Surgical clips in the pelvis. IMPRESSION: Postoperative changes on the right with arthritic changes on the left.
--- NOTE | 2023-05-27 15:33 | XR_ITS ---
PROCEDURE INFORMATION: Exam: XR Chest Exam date and time: 05/27/2023 4:14 PM Age: 63 years old Clinical indication: Cough TECHNIQUE: Imaging protocol: Radiologic exam of the chest. Views: 2 views. COMPARISON: CR XR CHEST PORTABLE 10/15/2021 4:25 PM FINDINGS: Lungs: Markings in the upper lobes appear more consolidative and patchy. The presence of an acute upon chronic process is question in the upper lobes. Pleural spaces: Unremarkable. No pleural effusion. No pneumothorax. Heart/Mediastinum: Unremarkable. No cardiomegaly. Bones/joints: Unremarkable. IMPRESSION: Patchy type densities are seen on top of chronic infiltrates that were present previously suggesting an acute on chronic process in the upper lungs.
--- NOTE | 2023-05-27 15:39 | ED_ITS ---
Discharge Plan Disposition Patient Disposition: Home, Self-Care Prescriptions Prescriptions: No Action metformin 500 mg tablet 1,000 mg PO BID 90 Days Qty: 360 2RF Humulin 70/30 U-100 Insulin 100 unit/mL (70-30) suspension 12 unit SQ BID buspirone 5 mg tablet 10 mg PO BID 30 Days Qty: 60 4RF gabapentin 300 mg capsule 300 mg PO TID Qty: 90 2RF topiramate 50 mg tablet 50 mg PO BID Qty: 180 0RF Farxiga 10 mg tablet See Rx Instructions .ROUTE .COMPLEX Qty: 90 3RF Dose Instruction: TAKE ONE TABLET BY MOUTH EVERY DAY Rx Instructions: TAKE ONE TABLET BY MOUTH EVERY DAY clopidogrel 75 mg tablet See Rx Instructions .ROUTE .COMPLEX Qty: 30 0RF Dose Instruction: TAKE ONE TABLET BY MOUTH EVERY DAY Rx Instructions: TAKE ONE TABLET BY MOUTH EVERY DAY isosorbide mononitrate 30 mg tablet extended release 24 hr See Rx Instructions .ROUTE .COMPLEX Qty: 90 0RF Dose Instruction: TAKE ONE TABLET BY MOUTH EVERY DAY Rx Instructions: TAKE ONE TABLET BY MOUTH EVERY DAY atorvastatin 10 mg tablet See Rx Instructions .ROUTE .COMPLEX Qty: 90 0RF Dose Instruction: TAKE ONE TABLET BY MOUTH EVERY DAY AT BEDTIME Rx Instructions: TAKE ONE TABLET BY MOUTH EVERY DAY AT BEDTIME famotidine 20 mg tablet See Rx Instructions .ROUTE .COMPLEX Qty: 120 0RF Dose Instruction: TAKE ONE TABLET BY MOUTH TWICE DAILY Rx Instructions: TAKE ONE TABLET BY MOUTH TWICE DAILY pantoprazole 40 mg tablet,delayed release (DR/EC) 40 mg PO DAILY Qty: 90 0RF sertraline 100 mg tablet See Rx Instructions .ROUTE .COMPLEX Qty: 45 2RF Dose Instruction: TAKE 1 AND 1/2 TABLET BY MOUTH EVERY DAY Rx Instructions: TAKE 1 AND 1/2 TABLET BY MOUTH EVERY DAY Humulin 70/30 U-100 KwikPen 100 unit/mL (70-30) insulin pen See Rx Instructions .ROUTE .COMPLEX Qty: 15 2RF Dose Instruction: INJECT 8 UNITS SUBCUTANEOUSLY TWICE DAILY DIRECTED Rx Instructions: INJECT 8 UNITS SUBCUTANEOUSLY TWICE DAILY DIRECTED oxycodone-acetaminophen 7.5-325 mg tablet 1 tab PO QID PRN (Reason: pain) Qty: 120 0RF albuterol sulfate 90 mcg/actuation HFA aerosol inhaler 2 puff INHALATION Q4HP PRN (Reason: Breathing Problems) Patient Comments: INHALE TWO PUFFS BY MOUTH EVERY 4 HOURS NEEDED FOR SHORTNESS OF BREATH Eliquis 5 mg tablet 5 mg PO BID Patient Comments: TAKE ONE TABLET BY MOUTH TWICE DAILY FOR BLOOD THINNER Clinical Impressions Clinical Impression: CHF (congestive heart failure), Acute exacerbation of chronic obstructive pulmonary disease, Leg swelling, Solar purpura Instructions Patient Instructions: DI for Skin Abscess Discharge ED Provider: Perez Rodrigez General Adult HPI General Chief complaint: Skin/Abscess/Foreign Body Stated complaint: Itching Time Seen by Provider: 05/27/23 15:02 Mode of Arrival: EMS Source of Information: Patient and EMS Limitations: No Limitations Description of Symptoms (Recalled from ER Triage Doc. by RN): Patient states she has been itchy all over on her head, arms, and legs. Patient reports pain with walking and bilateral lower leg edema. Patient states she has had multiple episodes of diarrhea over the last few days. Upon assessment patient has multiple tiny bruises and red spots on bilateral arms. History of Present Illness HPI narrative: Patient is a 63-year-old female who presents emergency department for evaluation of multiple complaints. Patient has been generally itchy, has had cough, diarrhea, left-sided hip pain, bilateral lower extremity swelling. This has happened over the past few days. There is associated cough productive. Patient has COPD on 2 to 3 L nasal cannula at baseline. She has had intermittent swelling previously that has required water pills however she does not take them every day. She has noticed areas of discoloration throughout her body some of which have been there before some of which are new. She takes blood thinner for atrial fibrillation. She complains of foul-smelling diarrhea. No other acute complaints at this time. Related Data Home Medications Medication Instructions Recorded Confirmed albuterol sulfate 90 mcg/actuation 2 puff inhalation Q4HP PRN 09/06/22 03/31/23 aerosol inhaler Breathing Problems apixaban 5 mg tablet (Eliquis) 5 mg PO BID Blood Thinner 09/06/22 03/31/23 insulin human U-100 NPH-regulr 12 unit SQ BID 02/17/23 03/31/23 70-30 mix 100 unit/mL subcutaneous susp (Humulin 70/30 U-100 Insulin) Previous Rx's Medication Instructions Recorded topiramate 50 mg tablet 50 mg PO BID Migraine #180 tabs 11/29/22 dapagliflozin propanediol 10 mg See Rx Instructions .Route 11/30/22 tablet (Farxiga) .COMPLEX #90 tabs clopidogrel 75 mg tablet See Rx Instructions .Route 01/05/23 .COMPLEX #30 tabs metformin 500 mg tablet 1,000 mg (2 x 500 mg) PO BID 02/17/23 Diabetes 90 days #360 tabs atorvastatin 10 mg tablet See Rx Instructions .Route 03/25/23 .COMPLEX #90 tabs famotidine 20 mg tablet See Rx Instructions .Route 03/25/23 .COMPLEX #120 tabs isosorbide mononitrate 30 mg See Rx Instructions .Route 03/25/23 tablet,extended release 24 hr .COMPLEX #90 tabs pantoprazole 40 mg tablet,delayed 40 mg PO DAILY Acid Reflux #90 tabs 03/25/23 release buspirone 5 mg tablet 10 mg (2 x 5 mg) PO BID 30 days 03/31/23 #60 tabs gabapentin 300 mg capsule 300 mg PO TID #90 caps 03/31/23 sertraline 100 mg tablet See Rx Instructions .Route 04/19/23 .COMPLEX #45 tabs insulin NPH-regular 70-30 U-100 See Rx Instructions .Route 05/20/23 insulin 100 unit/mL subcutaneous .COMPLEX #15 mL pen (Humulin 70/30 U-100 KwikPen) oxycodone-acetaminophen 7.5 mg-325 1 tab PO QID PRN pain #120 tabs 05/24/23 mg tablet Allergies Allergy/AdvReac Type Severity Reaction Status Date / Time methocarbamol Allergy Severe Altered Verified 05/02/23 17:33 mental status terbutaline [TERBUTALINE] Allergy Severe SWELLS Verified 05/02/23 17:33 THROAT aspirin [ASPIRIN] Allergy Intermediate I-RASH Verified 05/02/23 17:33 codeine [CODEINE] Allergy Intermediate Swelling Verified 05/02/23 17:33 of the Eye diphenhydramine Allergy Intermediate Hives Verified 05/02/23 17:33 [From Benadryl] Sulfa (Sulfonamide Allergy Intermediate Hives Verified 05/02/23 17:33 Antibiotics) [SULFA (SULFONAMIDE ANTIBIOTICS)] sulfamethoxazole Allergy Intermediate Hives Verified 05/02/23 17:33 [From Bactrim] trimethoprim [From Bactrim] Allergy Intermediate Hives Verified 05/02/23 17:33 naproxen [NAPROXEN] Allergy Mild itching Verified 05/02/23 17:33 tramadol [TRAMADOL] Allergy Mild Vomiting Verified 05/02/23 17:33 citalopram [CITALOPRAM] Allergy Unknown SKIN PEEL Verified 05/02/23 17:33 erythromycin base Allergy Unknown I-RASH Verified 05/02/23 17:33 [ERYTHROMYCIN BASE] Penicillins [PENICILLINS] Allergy Unknown I-RASH Verified 05/02/23 17:33 bupropion [BUPROPION] AdvReac Severe Hallucinati Verified 05/02/23 17:33 ng duloxetine [DULOXETINE] AdvReac Severe Hallucinati Verified 05/02/23 17:33 ng pregabalin [PREGABALIN] AdvReac Severe Hallucinati Verified 05/02/23 17:33 ng celecoxib [From CELEBREX] AdvReac Mild Vomiting Verified 05/02/23 17:33 PFSH PFS Disclaimer: The information contained in this section may have been updated after the patient was seen, as this information can be updated by other users. Medical History Abdominal pain Abnormal ankle brachial index (DAVE) Abnormal computed tomography angiography (CTA) of abdomen and pelvis Acquired hammer toes of both feet Acute exacerbation of chronic obstructive airways disease Acute worsening of stage 3 chronic kidney disease RAGHAV (acute kidney injury) Anxiety Atrial fibrillation Back pain C. difficile colitis Cauda equina syndrome Cellulitis of right foot Chest pain Chest pain Chronic deep vein thrombosis (DVT) of right lower extremity Chronic kidney disease Claudication Closed femur fracture Community acquired pneumonia Congestive heart failure COPD (chronic obstructive pulmonary disease) Decreased pedal pulses Depression Diabetes mellitus Diabetes mellitus with neuropathy Diabetes mellitus, type 2 Will check an HbA1c today additionally a complete metabolic panel and CBC. Will also check a microalbumin. Patient's A1c's in the past have been high so we will be aggressive in trying to get these better controlled. Patient is currently on dapagliflozin, insulin, metformin. Her metformin is only 500 mg twice a day and we certainly can increase this. Will get her A1c's and see where we are with this and adjust as appropriate. We will do all of the above until she can be seen by endocrinology and they can give their input as to how best to control her blood sugars. Diabetic peripheral neuropathy associated with type 2 diabetes mellitus DVT (deep venous thrombosis) Elevated left ventricular end-diastolic pressure (LVEDP) Endothelial dysfunction of coronary artery Failure to thrive Foot pain, left Very concerned about the possibility of fracture in this patient. Will send her for x-rays. Foot pain, right Hep B w/o coma Hep C w/o coma, chronic Hepatitis B Hepatitis C Hip fracture History of gastroesophageal reflux (GERD) History of hip fracture History of transient ischemic attack (TIA) HTN (hypertension) Blood pressure appears to be well-controlled at least by our records here in the clinic. She is currently taking nothing for blood pressure. Will just follow closely. 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, bilateral Other specified symptoms and signs involving the circulatory and respiratory systems Overweight (BMI 25.0-29.9) PAD (peripheral artery disease) Plantar fasciitis, left Primary osteoarthritis of both feet Pyelonephritis Renal insufficiency Restless leg syndrome Sepsis Sleep apnea SOB (shortness of breath) on exertion Vaginal pain Surgical History History of appendectomy History of cardiac cath History of cholecystectomy History of hysterectomy Family History Other Coronary artery disease Family history of diabetes mellitus type II Family history of hyperlipidemia Family history of hypertension Social History Smoking Status: Current every day smoker tobacco type: cigarettes packs per day: 2 second hand exposure: Yes alcohol intake: never counseling provided: none substance use type: denies use current occupational status: retired Travel in the last 8 weeks: None household members: none housing: house lives independently: Yes marital status: education level: middle school current occupational exposures/hazards: No caffeine: Yes special ping needs: No agree to transfusion: No do you feel safe at home: Yes victim of physical abuse: No victim of emotional abuse: No victim of sexual abuse: No would you like helpful sources: No ROS Obtained: Yes Systems reviewed as appropriate & no additional complaints except as documented Physical Exam General General appearance: alert and in no apparent distress Head Head exam: atraumatic and normocephalic Eye Eye exam: Present PERRL and EOMI ENT ENT exam: Present mucous membranes moist Neck Neck exam: Present normal inspection Chest Chest inspection: Present normal inspection and symmetric chest wall rise Respiratory Respiratory exam: Present wheezes and prolonged expiratory phase; Absent respiratory distress Cardiovascular Cardiovascular exam: Present regular rate and normal rhythm Abdominal Exam Abdominal exam: Present soft; Absent tenderness Extremities Exam Extremities exam: Present other (2+ pitting edema bilateral lower extremities, palpable dorsal pedal pulse bilaterally, normal capillary refill bilateral lower extremities. There is scattered nonblanchable areas of discoloration over the bilateral upper extremities, punctate nelson angiomas over the abdomen) Neurological Exam Neurological exam: Present alert Psychiatric Psychiatric exam: Present normal affect Skin Skin exam: Present warm and dry Medical Decision Making Jordin Inquiry Pt receiving controlled substance: No Vital Signs: 05/27/23 14:56 05/27/23 15:30 05/27/23 16:00 Temperature 98.3 F Temperature Source Oral Pulse Rate 94 H 83 Pulse Rate [Right] 93 H Respiratory Rate 18 Blood Pressure 153/113 H 162/83 H Blood Pressure [Right Arm] 136/88 Blood Pressure Mean [Right Arm] 104 Blood Pressure Source [Right Arm] Automatic Cuff 02 Sat by Pulse Oximetry 95 92 L 91 L Oxygen Delivery Method Room Air 05/27/23 16:38 05/27/23 17:00 05/27/23 17:30 Temperature Temperature Source Pulse Rate 84 79 85 Pulse Rate [Right] Respiratory Rate Blood Pressure 149/79 H 171/96 H 186/100 H Blood Pressure [Right Arm] Blood Pressure Mean [Right Arm] Blood Pressure Source [Right Arm] 02 Sat by Pulse Oximetry 93 L 95 94 L Oxygen Delivery Method Lab Data Lab Results 05/27/23 15:17: Urine Color Yellow, Urine Appearance Clear, Urine pH 6.0, Ur Specific [place] >= 1.030, Urine Protein 3+, Urine Glucose (UA) Trace, Urine Ketones 1+, Urine Blood 2+, Urine Nitrate Negative, Urine Bilirubin 2+ A, Urine Urobilinogen 0.2, Ur Leukocyte Esterase Negative, Urine RBC 3-5, Urine WBC None, Ur Squamous Epith Cells None, Urine Bacteria None 05/27/23 15:42: SARS-CoV-2 (PCR) Not detected, Influenza A Untype (PCR) Not detected, Influenza Type B (PCR) Not detected 05/27/23 15:50: WBC 11.1 H, RBC 5.11, Hgb 14.5, Hct 46.0, MCV 90.1, MCH 28.3, M CHC 31.4 L, RDW 15.9, Plt Count 336, MPV 9.1, Neut % (Auto) 69.3, Lymph % (Auto) 22.1, [place] % (Auto) 6.0, Eos % (Auto) 0.9, Baso % (Auto) 1.6, Neut # (Auto) 7.7, Lymph # (Auto) 2.5, [place] # (Auto) 0.7, Eos # (Auto) 0.1, Baso # (Auto) 0.2 05/27/23 15:54: VBG pH 7.40, VBG pCO2 44.4, VBG pO2 44.4 H, VBG HCO3 27.0, VBG Total CO2 28.4 H, VBG O2 Saturation 81.4 H, VBG Base Excess 2.2, VBG Lactic Acid 1.8 05/27/23 16:22: Sodium 138, Potassium 4.2, Chloride 105, Carbon Dioxide 32 H, Anion Gap 5.2, BUN 27 H, Creatinine 0.90, Estimated Creat Clear 53, Estimated GFR 63, Est GFR ( Amer) 77, Glucose 166 H, Calcium 8.5, Total Bilirubin 0.6, AST 48 H, ALT 34, Alkaline Phosphatase 94, Troponin I < 0.01, NT-Pro-B Natriuret Pep 1130 H, Total Protein 5.9 L, Albumin 2.9 L, Globulin 3.0, A lbumin/Globulin Ratio 1.0 L 05/27/23 17:55: Troponin I 0.02 05/27/23 15:50 05/27/23 16:22 Orders (Tests/Meds): ED MEDICATIONS Discontinued Medications Generic Name Dose Route Start Last Admin Trade Name Freq PRN Reason Stop Dose Admin Albuterol/Ipratropium 3 ml 05/27/23 15:38 05/27/23 16:36 Ipratropium/Albuterol 3 Ml Neb IH 05/27/23 15:39 3 ml ONCE ONE Administration Albuterol/Ipratropium 6 ml 05/27/23 17:04 05/27/23 17:12 Ipratropium/Albuterol 3 Ml Neb IH 05/27/23 17:05 6 ml ONCE ONE Administration Doxycycline Hyclate 100 mg 05/27/23 18:04 05/27/23 18:17 Doxycycline Hycl 100 Mg Tablet PO 05/27/23 18:05 100 mg ONCE ONE Administration Furosemide 40 mg 05/27/23 18:16 05/27/23 18:29 Furosemide 40mg/4ml Vial IV 05/27/23 18:17 40 mg ONCE ONE Administration Methylprednisolone Sodium Succinate 125 mg 05/27/23 15:38 05/27/23 16:08 Methylprednisolone Sod Succ 125mg Vial IV 05/27/23 15:39 125 mg ONCE ONE Administration Ondansetron HCl 4 mg 05/27/23 15:45 05/27/23 16:08 Ondansetron 4mg/2ml Vial IV 05/27/23 15:46 4 mg ONCE ONE Administration ORDERS Category Date Time Status Cardiology Consult [Consult to Cardiology] [CONS] Cons 05/27/23 19:13 Active Routine CXR 2 view (NOT portable) [XR chest 2V] Stat Exams 05/27/23 15:33 Completed POCUS Point of Care (ER Only) Stat Exams 05/27/23 15:35 Completed Pelvis XR 1-2 views [XR pelvis 1-2V] Stat Exams 05/27/23 15:33 Completed BNP [NT Pro Brain Natriuretic Pep.] Stat Lab 05/27/23 16:22 Completed CBC w/Auto Diff [Complete Blood Count Auto Diff] Stat Lab 05/27/23 15:50 Completed CMP [Comprehensive Metabolic Panel] Stat Lab 05/27/23 16:22 Completed Diarrhea 23 Panel, PCR Stat Lab 05/27/23 15:41 Received Rapid PCR Covid and Flu A/B Routine Lab 05/27/23 15:42 Completed Trop I [Troponin I] Stat Lab 05/27/23 16:22 Completed Troponin I Q3H Lab 05/27/23 17:55 Completed Troponin I Q3H Lab 05/27/23 21:45 Ordered UA [Urinalysis and Microscopic] Stat Lab 05/27/23 15:17 Completed VBG [Venous Blood Gas] Stat RT 05/27/23 15:54 Completed EKG Request [ECG Request] Stat Y 05/27/23 15:33 Ordered ECG Data Tracing #1: Independently interpreted by me, rate is 85, rhythm is irregular, sinus rhythm with intermittent supraventricular complexes, axis is normal, no ST elevation in anatomical contiguous leads, Medical Decision Narrative: In summary patient is a 63-year-old female past medical history described above who presents emergency department for evaluation of shortness of breath, cough, diarrhea, swelling. Patient is hemodynamically stable nontoxic-appearing upon arrival, afebrile. Differential diagnosis includes worsening CKD and heart failure, viral syndrome, atypical ACS, among others. Workup will be conducted with hematologic labs, two-view chest x-ray, EKG, troponin, urinalysis, stool sample. Initial interventions include steroids, DuoNeb. Unfortunately for patient's itching which may be due to heart failure or uremia she is allergic to diphenhydramine. Initial workup reviewed by me, white blood cell count 11.1, no anemia or thrombocytopenia, VBG is compensated, no critical electrolyte abnormality or RAGHAV, urinalysis interpreted by me and not consistent with infection. Chest x-ray informally interpreted by me, diffuse lung disease most of which is likely chronic. Formal read shows patchy airspace disease in the upper lungs different from prior. Given this constellation of findings with clinical status atypical infection is a possibility for which doxycycline will be administered given allergy to azithromycin. [id number] ultrasound at bedside shows grossly normal ejection fraction, normal EPSS, no large pericardial effusion. Given this with lower extremity swelling I suspect diastolic heart failure. Patient was given 40 mg of Lasix. Serial troponins went from undetectably low to 0.02. Given this workup taken together, this patient has a COPD exacerbation with possible atypical infection in the upper lobes of the lungs which is being treated with doxycycline, suspected diastolic heart failure with volume overload which is being treated with Lasix and uptrending troponin anemia although currently within the acceptable realm of normal. The case was discussed with Dr. Chan who agrees patient would benefit from inpatient management at this time. The case was discussed with hospital medicine who will admit the patient to their service for continued evaluation. Procedures Miscellaneous Procedure Procedure Performed: Indication: Shortness of breath Identified cardiac views: Cardiac parasternal long axis and apical four-chamber Findings: Cardiac activity present, gross ejection fraction normal, EPSS normal Impression: -From above Images were saved to permanent archive The study was technically adequate CPT: 47347 This study was performed by me, and I personally interpreted all images/videos. Based on my clinical judgement, these images were adequate and did not necessitate further imaging. Critical Care Critical Care Time Critical Care Time: No
[2023-05-27 15:52] LABS: Microscopic, Urine URINE MICROSCOPIC (MICROSCOPIC)
[2023-05-27 15:54] LABS: Adenovirus F 40/41, stool Not Detected (NotDetected); Astrovirus Not Detected (NotDetected); Campylobacter Not Detected (NotDetected); Cryptosporidium Not Detected (NotDetected); Cyclospora Cayetanesis Not Detected (NotDetected); Entamoeba histolytica Not Detected (NotDetected); Enteroaggregative E coli Not Detected (NotDetected); Enteropathogenic E coli Not Detected (NotDetected); Enterotoxigenic E coli Not Detected (NotDetected); Giardia lamblia Not Detected (NotDetected); Norovirus Not Detected (NotDetected); Plesimonas Shigalloides, PCR Not Detected (NotDetected); Rotavirus A Not Detected (NotDetected); Salmonella, PCR Not Detected (NotDetected); Sapovirus Not Detected (NotDetected); Shiga-like toxin E coli Not Detected (NotDetected); Shigella Enterovasive E coli Not Detected (NotDetected); Vibrio Cholerae Not Detected (NotDetected); Vibrio, PCR Not Detected (NotDetected); Yersinia Entercolitica, PCR Not Detected (NotDetected)
[2023-05-27 15:55] LABS: Appearance,Urine CLEAR (Clear); Blood, Urine 2+ (Negative); Color,Urine YELLOW (Yellow); Glucose,Urine (UA) TRACE (Negative); Ketones,Urine 1+ (Negative); Leukocyte Esterase,Urine Negative (Negative); Nitrate,Urine Negative (Negative); Protein,Urine 3+ (Negative); Specific Gravity, Urine >= 1.030 (1.005-1.030); Urobilinogen,Urine 0.2 EU/dl (0.2)
--- NOTE | 2023-05-27 15:55 | PC.NURSE ---
RT notified of VBG order
[2023-05-27 15:56] LABS: Coronavirus 19, PCR Not Detected (NotDetected); Influenza A, PCR Not Detected (NotDetected); Influenza B, PCR Not Detected (NotDetected)
--- NOTE | 2023-05-27 15:57 | ECG_ITS ---
APPROVED REPORT Exam: Resting ECG HR:85 bpm ECG Measurements Heart Rate 85 AXES PA 146 P 65 QRSd 66 QRS 23 QT 369 T 43 QTc 411 Conclusion SINUS RHYTHM WITH OCCASIONAL SUPRAVENTRICULAR PREMATURE COMPLEXES BORDERLINE ECG Electronically signed by : STEPHANIE AMOS, 05/27/2023 20:47:21
[2023-05-27 16:00] LABS: Lactate Venous 1.8 mmol/L (0.4-2.0); VBG Base Excess 2.2 mmol/L (-2.4-2.3); VBG Oxygen Saturation 81.4 % (50-70); VBG PCO2 44.4 mmol/L (35-51); VBG PO2 44.4 mmol/L (28-40); VBG Total CO2 28.4 mmol/L (23-27)
[2023-05-27 16:02] LABS: Basophils # 0.2 K/mm3 (0-0.2); Basophils % 1.6 % (0.1-2.0); Eosinophils # 0.1 K/mm3 (0.0-0.4); Eosinophils % 0.9 % (0.1-12.0); Hemoglobin 14.5 g/dL (12.2-16.2); Lymphocytes # 2.5 K/mm3 (0.7-4.5); Lymphocytes % 22.1 % (10-50); Mean Corpuscular HGB Conc 31.4 g/dL (31.8-35.4); Mean Corpuscular Hemoglobin 28.3 pg (27.0-31.2); Mean Corpuscular Volume 90.1 fl (81-99); Mean Platelet Volume 9.1 fl (7.4-10.4); Monocytes # 0.7 K/mm3 (0.1-1.0); Neutrophils # 7.7 K/mm3 (1.8-7.8); Neutrophils % 69.3 % (37.0-80.0); Platelet Count 336 K/mm3 (142-424); Red Blood Count 5.11 M/mm3 (4.20-5.40); Red Cell Distribution Width 15.9 % (11.5-17.5); White Blood Count 11.1 K/mm3 (4.8-10.8)
[2023-05-27] MEDS: METHYLPREDNISOLONE SOD SUCC 125MG VIAL 125 MG IV (16:08)
[2023-05-27] MEDS: ONDANSETRON 4MG/2ML VIAL 4 MG IV (16:08)
[2023-05-27 16:10] LABS: Bilirubin,Urine 2+ (Negative)
--- NOTE | 2023-05-27 16:29 | PC.NURSE ---
Patient states she has had duoneb before and did not have a reaction. Okay to give per .
[2023-05-27 16:36] LABS: Chloride 105 mmol/L (98-107); Potassium 4.2 mmoL/L (3.5-5.1); Sodium 138 mmol/L (136-145)
[2023-05-27] MEDS: IPRATROPIUM/ALBUTEROL 3 ML NEB IH ×2 (16:36→21:41)
[2023-05-27 16:39] LABS: Alanine Aminotransferase 34 U/L (12-78); Albumin Level 2.9 g/dl (3.5-5.0); Alkaline Phosphatase 94 U/L (38-126); Anion Gap 5.2 mEq/L (5-15); Aspartate Amino Transferase 48 U/L (14-36); Bilirubin,Total 0.6 mg/dl (0.2-1.3); Blood Urea Nitrogen 27 mg/dl (7-17); Carbon Dioxide 32 mmol/L (22.0-30.0); Creatinine Clearance Estimated 53 mL/min (50-200); Estimated Glomerular Filt Rate 63 ml/min (>60); GFR (African American) 77 ML/MIN (>60); Total Protein,Serum 5.9 g/dl (6.3-8.2)
[2023-05-27 16:40] LABS: Calcium 8.5 mg/dl (8.4-10.2); Glucose 166 mg/dl (74-100)
[2023-05-27 16:49] LABS: NT Pro Brain Natriuretic Pep. 1130 pg/mL (0-125)
[2023-05-27 16:55] LABS: Troponin I < 0.01 ng/ml (0.00-0.034)
[2023-05-27] MEDS: IPRATROPIUM/ALBUTEROL 3 ML NEB 6 ML IH (17:12)
--- NOTE | 2023-05-27 17:40 | PC.NURSE ---
Dr Rodrigez at bedside for ultrasound.
[2023-05-27] MEDS: DOXYCYCLINE HYCL 100 MG TABLET PO (18:17)
[2023-05-27] MEDS: FUROSEMIDE 40MG/4ML VIAL 40 MG IV (18:29)
[2023-05-27 18:50] LABS: Troponin I 0.02 ng/ml (0.00-0.034)
--- NOTE | 2023-05-27 19:10 | PC.NURSE ---
Dr. Chan paged for Dr. Rodrigez
--- NOTE | 2023-05-27 19:36 | PC.NURSE ---
call placed to dye house hand for admission request
--- NOTE | 2023-05-27 19:50 | PC.NURSE ---
report called to CODI Coates
--- NOTE | 2023-05-27 20:01 | PC.NURSE ---
Pt arrived to floor via wheelchair @19:57
[2023-05-27 21:42] LABS: Procalcitonin 0.105 ng/mL (0.0-2.0)
--- NOTE | 2023-05-27 21:55 | P.HP_ITS ---
History of Present Illness *Admission Date: 05/27/23 *Reason for visit:: Swelling *History of present illness: This is a 63-year-old female with a past medical history of atrial fibrillation, diastolic heart failure, COPD on 3 L nasal cannula at baseline, CKD, depression, anxiety, T2DM, hypertension who presents emergency department with complaints of itchiness, cough and diarrhea. She has a multitude of complaints but ultimately patient states that she has had intermittent swelling of her lower extremities with increased orthopnea. States that she has been prescribed water pills in the past but she does not take them every day. She reports chronic cough that is productive, she also reports increased wheezing over the last several days. Emergency department workup notable for COPD exacerbation with diffuse wheezing on exam. Also noted to have an elevated BNP of 1000. Bilateral lower extremity swelling noted. Patchy opacities in the upper lobes of the lungs that might represent chronic infiltrates. Given patient's increased shortness of breath with edema and COPD exacerbation, she will be admitted to hospital service for further evaluation management. [facility] Disclaimer: The information contained in this section may have been updated after the patient was seen, as this information can be updated by other users. Medical History (Updated 05/27/23 @ 22:04 by GABBY Hernández) Chest pain Abnormal ankle brachial index (DAVE) Pyelonephritis Restless leg syndrome Hepatitis B Depression Anxiety Chronic kidney disease Sleep apnea Migraine History of transient ischemic attack (TIA) History of hip fracture History of gastroesophageal reflux (GERD) Diabetes mellitus, type 2 Hyperlipidemia Congestive heart failure Nonspecific chest pain Hip fracture Failure to thrive Closed femur fracture Instability of left knee joint Left knee pain Vaginal pain Abnormal computed tomography angiography (CTA) of abdomen and pelvis Claudication Decreased pedal pulses Other specified symptoms and signs involving the circulatory and respiratory systems Acquired hammer toes of both feet Chronic deep vein thrombosis (DVT) of right lower extremity Primary osteoarthritis of both feet Overweight (BMI 25.0-29.9) Acute worsening of stage 3 chronic kidney disease Diabetes mellitus with neuropathy Left leg swelling Lymphedema Plantar fasciitis, left Foot pain, left Obesity (BMI 30.0-34.9) C. difficile colitis RAGHAV (acute kidney injury) Sepsis Community acquired pneumonia Osteoarthritis of feet, bilateral Diabetic peripheral neuropathy associated with type 2 diabetes mellitus Onychoincurvatum Hepatitis C Chest pain Normal coronary arteries Foot pain, right COPD (chronic obstructive pulmonary disease) DVT (deep venous thrombosis) Cellulitis of right foot Hep B w/o coma Hep C w/o coma, chronic Endothelial dysfunction of coronary artery Elevated left ventricular end-diastolic pressure (LVEDP) Cauda equina syndrome Lumbar compression fracture ANNIE on CPAP Langerhan's cell histiocytosis SOB (shortness of breath) on exertion Atrial fibrillation HTN (hypertension) PAD (peripheral artery disease) Abdominal pain Diabetes mellitus Renal insufficiency Acute exacerbation of chronic obstructive airways disease Neck Pain Back pain Surgical History History of cholecystectomy History of appendectomy History of hysterectomy History of cardiac cath Family History Other Coronary artery disease Family history of diabetes mellitus type II Family history of hyperlipidemia Family history of hypertension Social History (Updated 05/27/23 @ 20:28 by Kateryna Green RN) Smoking Status: Current every day smoker tobacco type: cigarettes packs per day: 2 second hand exposure: Yes alcohol intake: never counseling provided: none substance use type: denies use current occupational status: retired Travel in the last 8 weeks: None household members: none housing: house lives independently: Yes marital status: education level: middle school current occupational exposures/hazards: No caffeine: Yes special ping needs: No agree to transfusion: No do you feel safe at home: Yes victim of physical abuse: No victim of emotional abuse: No victim of sexual abuse: No would you like helpful sources: No Review of Systems Constitutional Constitutional: Reports as per HPI Eyes Eyes: Reports as per HPI ENT Ears, Nose, Mouth, and Throat: Reports as per HPI *Cardiovascular Cardiovascular: Reports as per HPI *Respiratory Respiratory: Reports as per HPI *Gastrointestinal Gastrointestinal: Reports as per HPI *Genitourinary Genitourinary: Reports as per HPI *Musculoskeletal Musculoskeletal: Reports as per HPI Integumentary/Breasts Skin/Breast: Reports as per HPI *Neurologic Neurologic: Reports as per HPI Psychiatric Psychiatric: Reports as per HPI Endocrine Endocrine: Reports as per HPI Meds Home Medications and Allergies Home Medications Medication Instructions Recorded Confirmed Type albuterol sulfate 90 mcg/actuation 2 puff inhalation Q4HP PRN 09/06/22 05/27/23 History aerosol inhaler Breathing Problems apixaban 5 mg tablet (Eliquis) 5 mg PO BID Blood Thinner 09/06/22 05/27/23 History topiramate 50 mg tablet 50 mg PO BID Migraine #180 tabs 11/29/22 05/27/23 Rx insulin human U-100 NPH-regulr 8 unit SQ BID 02/17/23 05/28/23 History 70-30 mix 100 unit/mL subcutaneous susp (Humulin 70/30 U-100 Insulin) metformin 500 mg tablet 1,000 mg (2 x 500 mg) PO BID 02/17/23 05/27/23 Rx Diabetes 90 days #360 tabs pantoprazole 40 mg tablet,delayed 40 mg PO DAILY Acid Reflux #90 tabs 03/25/23 05/27/23 Rx release buspirone 5 mg tablet 10 mg (2 x 5 mg) PO BID 30 days 03/31/23 05/27/23 Rx #60 tabs gabapentin 300 mg capsule 300 mg PO TID #90 caps 03/31/23 05/27/23 Rx atorvastatin 10 mg tablet 10 mg PO HS 05/28/23 05/28/23 History dapagliflozin propanediol 10 mg 10 mg PO DAILY 05/28/23 05/28/23 History tablet (Farxiga) famotidine 20 mg tablet 20 mg PO BID 05/28/23 05/28/23 History isosorbide mononitrate 30 mg 30 mg PO DAILY 05/28/23 05/28/23 History tablet,extended release 24 hr oxycodone-acetaminophen 7.5 mg-325 1 tab PO QIDP PRN Moderate Pain 05/28/23 05/28/23 History mg tablet (Scale Score 5-6) sertraline 100 mg tablet 150 mg PO DAILY 05/28/23 05/28/23 History New Prescriptions to Start Prescriptions: Allergies Allergy/AdvReac Type Severity Reaction Status Date / Time methocarbamol Allergy Severe Altered Verified 05/02/23 17:33 mental status terbutaline [TERBUTALINE] Allergy Severe SWELLS Verified 05/02/23 17:33 THROAT aspirin [ASPIRIN] Allergy Intermediate I-RASH Verified 05/02/23 17:33 codeine [CODEINE] Allergy Intermediate Swelling Verified 05/02/23 17:33 of the Eye diphenhydramine Allergy Intermediate Hives Verified 05/02/23 17:33 [From Benadryl] Sulfa (Sulfonamide Allergy Intermediate Hives Verified 05/02/23 17:33 Antibiotics) [SULFA (SULFONAMIDE ANTIBIOTICS)] sulfamethoxazole Allergy Intermediate Hives Verified 05/02/23 17:33 [From Bactrim] trimethoprim [From Bactrim] Allergy Intermediate Hives Verified 05/02/23 17:33 naproxen [NAPROXEN] Allergy Mild itching Verified 05/02/23 17:33 tramadol [TRAMADOL] Allergy Mild Vomiting Verified 05/02/23 17:33 citalopram [CITALOPRAM] Allergy Unknown SKIN PEEL Verified 05/02/23 17:33 erythromycin base Allergy Unknown I-RASH Verified 05/02/23 17:33 [ERYTHROMYCIN BASE] Penicillins [PENICILLINS] Allergy Unknown I-RASH Verified 05/02/23 17:33 bupropion [BUPROPION] AdvReac Severe Hallucinati Verified 05/02/23 17:33 ng duloxetine [DULOXETINE] AdvReac Severe Hallucinati Verified 05/02/23 17:33 ng pregabalin [PREGABALIN] AdvReac Severe Hallucinati Verified 05/02/23 17:33 ng celecoxib [From CELEBREX] AdvReac Mild Vomiting Verified 05/02/23 17:33 Exam Data for Last 24 hours Vital signs and Labs for Last 24 Hours: Temp Pulse Resp BP Pulse Ox O2 Del Method O2 Flow Rate 98.6 F 98 H 18 152/77 H 95 Nasal Cannula 3 05/27/23 20:00 05/27/23 21:50 05/27/23 20:00 05/27/23 20:00 05/27/23 21:50 05/27/23 21:50 05/27/23 21:50 Laboratory Results - last 24 hr 05/27/23 15:17: Urine Color Yellow, Urine Appearance Clear, Urine pH 6.0, Ur Specific [place] >= 1.030, Urine Protein 3+, Urine Glucose (UA) Trace, Urine Ketones 1+, Urine Blood 2+, Urine Nitrate Negative, Urine Bilirubin 2+ A, Urine Urobilinogen 0.2, Ur Leukocyte Esterase Negative, Urine RBC 3-5, Urine WBC None, Ur Squamous Epith Cells None, Urine Bacteria None 05/27/23 15:42: SARS-CoV-2 (PCR) Not detected, Influenza A Untype (PCR) Not detected, Influenza Type B (PCR) Not detected 05/27/23 15:50: WBC 11.1 H, RBC 5.11, Hgb 14.5, Hct 46.0, MCV 90.1, MCH 28.3, MCHC 31.4 L, RDW 15.9, Plt Count 336, MPV 9.1, Neut % (Auto) 69.3, Lymph % (Auto) 22.1, [place] % (Auto) 6.0, Eos % (Auto) 0.9, Baso % (Auto) 1.6, Neut # (Auto) 7.7, Lymph # (Auto) 2.5, [place] # (Auto) 0.7, Eos # (Auto) 0.1, Baso # (Auto) 0.2 05/27/23 15:54: VBG pH 7.40, VBG pCO2 44.4, VBG pO2 44.4 H, VBG HCO3 27.0, VBG Total CO2 28.4 H, VBG O2 Saturation 81.4 H, VBG Base Excess 2.2, VBG Lactic Acid 1.8 05/27/23 16:22: Sodium 138, Potassium 4.2, Chloride 105, Carbon Dioxide 32 H, Anion Gap 5.2, BUN 27 H, Creatinine 0.90, Estimated Creat Clear 53, Estimated GFR 63, Est GFR ( Amer) 77, Glucose 166 H, Calcium 8.5, Total Bilirubin 0.6, AST 48 H, ALT 34, Alkaline Phosphatase 94, Troponin I < 0.01, NT-Pro-B Natriuret Pep 1130 H, Total Protein 5.9 L, Albumin 2.9 L, Globulin 3.0, Albumin/Globulin Ratio 1.0 L 05/27/23 17:55: Troponin I 0.02, Procalcitonin 0.105 I & O for Last 24 hours: Intake & Output 05/24/23 05/25/23 05/26/23 05/27/23 23:59 23:59 23:59 23:59 Output Total 0 / 0 Balance 0 / 0 Weight 59.602 kg Constitutional Constitutional: no acute distress and thin *Routine HEENT Exam Head: Present normocephalic and atraumatic Eye: Present EOMI and PERRL ENT: Present mucous membranes moist *Routine Neck Exam Neck: Present supple and full ROM *Routine Respiratory Exam Respiratory: Present rhonchi, wheezes and diminished air movement *Routine Cardiovascular Exam Cardiovascular: Present RRR, Normal S1 and Normal S2 *Routine Abdominal Exam Abdominal: Present soft and normoactive bowel sounds *Routine Rectal Exam Rectal:: deferred *Routine Genitalia Exam Genitalia:: deferred *Routine Extremities Exam Extremities: Present cyanosis, full ROM, pulses intact and normal capillary refill *Routine Skin Exam Skin: Present scars, wounds, rash and ecchymosis Comments: There is scattered scabs noted throughout extremities. Patient reports that she picks at her scabs. *Routine Neurological Exam Neurological: Present alert, oriented X3 and CN II-XII intact Assessment and Plan *Assessment and plan (1) Acute on chronic diastolic (congestive) heart failure: Status: Acute Category: Medical Code(s): I50.33 - Acute on chronic diastolic (congestive) heart failure (2) Chronic respiratory failure: Status: Acute Category: Medical Code(s): J96.10 - Chronic respiratory failure, unspecified whether with hypoxia or hypercapnia (3) Acute exacerbation of chronic obstructive pulmonary disease: Status: Acute Category: Medical Code(s): J44.1 - Chronic obstructive pulmonary disease with (acute) exacerbation (4) Anxiety and depression: Status: Acute Category: Medical Code(s): F41.9 - Anxiety disorder, unspecified; F32.A - Depression, unspecified Plan 63-year-old female with multiple complaints. Discussed case with ER physician, request admission for further management of COPD exacerbation, diarrhea, uncontrolled 80s. Medicine agreed to admit for further. He had problems addressed as follows: # Chronic respiratory failure with hypoxia # COPD exacerbation #Acute on chronic diastolic congestive heart failure Currently oxygenating well on her 3 L home nasal cannula Will initiate bronchodilators and corticosteroids for COPD exacerbation Will continue doxycycline for COPD exacerbation. Low suspicion for pneumonia. Procalcitonin pending Elevated pro BNP 1100, last proBNP of 213, bilateral lower extremity pitting edema Will continue IV diuresis with IV Lasix Echocardiogram in a.m. Dr. Chan consulted prior to admission, will see in AM. # T2DM Hold oral diabetic agents at this time Continue 70/30 insulin regimen Continue sliding scale # Anxiety and depression Continue home mood stabilizers # GERD Continue home medications # Chronic pain chronic home pain medications DVT PPx on home Eliquis Full code Rounded on patient after nurse practitioner. Personally examined and interviewed patient. Agree with exam findings and care plan as documented.
[2023-05-27 22:20] LABS: Troponin I < 0.01 ng/ml (0.00-0.034)
[2023-05-27] MEDS: BUSPIRONE HCL 5 MG TABLET 10 MG PO (23:13)
[2023-05-27] MEDS: OXYCODONE 7.5MG W/APAP 325MG TABLET 1 EACH PO (23:14)
[2023-05-27] MEDS: PATIENT'S OWN HOME MEDICATION (Topiramate 50 mg tablet) 50 EACH PO (23:15)
[2023-05-27] MEDS: APIXABAN 5MG TABLET 5 MG PO (23:15)
[2023-05-27 23:43] LABS: POC Glucose,Bedside 450 (70-110)
[2023-05-27] MEDS: humaLOG MIX 75/25 3ML FLEXPEN 12 UNIT SQ (23:55)
[2023-05-28] VITALS (13 sets, daily range): BP systolic 95–162; BP diastolic 61–94; PULSE 80–105; RESP 17–20; TEMP 36.6–37; O2SAT 90–99; BMI 22.4
[2023-05-28 00:25] LABS: Troponin I < 0.01 ng/ml (0.00-0.034)
[2023-05-28] MEDS: IPRATROPIUM/ALBUTEROL 3 ML NEB IH ×5 (02:16→18:14)
[2023-05-28 02:21] LABS: POC Glucose,Bedside 409 (70-110)
[2023-05-28] MEDS: humaLOG 100 UNITS/ML 3ML VIAL (SSI) SQ ×4 (02:36→22:00)
[2023-05-28] MEDS: ACETAMINOPHEN 325MG TAB 650 MG PO (02:52)
[2023-05-28] MEDS: hydrOXYzine pamoate 25MG CAPSULE 25 MG PO (03:41)
[2023-05-28 03:56] LABS: Troponin I < 0.01 ng/ml (0.00-0.034)
[2023-05-28] MEDS: OXYCODONE 7.5MG W/APAP 325MG TABLET 1 EACH PO ×3 (05:07→20:48)
[2023-05-28 05:23] LABS: POC Glucose,Bedside 198 (70-110)
--- NOTE | 2023-05-28 06:44 | PC.NURSE ---
Patient arrived to unit from ED at 19:57. Patient is alert and orient X4. Revit Drafter oriented patient to room, educated pt fashion photographer light, bed controller and tv remote with a voice of understanding. Full assessment to follow.
[2023-05-28 07:23] LABS: Basophils # 0.1 K/mm3 (0-0.2); Eosinophils % 0.1 % (0.1-12.0); Monocytes # 1.2 K/mm3 (0.1-1.0)
[2023-05-28 07:26] LABS: Chloride 103 mmol/L (98-107); Potassium 3.8 mmoL/L (3.5-5.1); Sodium 139 mmol/L (136-145)
[2023-05-28 07:29] LABS: Anion Gap 6.8 mEq/L (5-15); Blood Urea Nitrogen 38 mg/dl (7-17); Carbon Dioxide 33 mmol/L (22.0-30.0); Cholesterol 186 mg/dl (140-200); Creatinine Clearance Estimated 37 mL/min (50-200); Estimated Glomerular Filt Rate 35 ml/min (>60); GFR (African American) 43 ML/MIN (>60); Triglycerides 88 mg/dl (30-150); VLDL Cholesterol 18 mg/dL (0-40)
[2023-05-28 07:30] LABS: Calcium 8.2 mg/dl (8.4-10.2); Chol/HDL Ratio 2.4 (1-3.5); Glucose 149 mg/dl (74-100); HDL Cholesterol 78 mg/dl (40-60)
[2023-05-28 07:40] LABS: Direct LDL Cholesterol 68.89 mg/dL (100-129)
[2023-05-28 07:48] LABS: Basophils % 0.7 % (0.1-2.0); Hematocrit 38.7 % (37.0-47.0); Lymphocytes # 2.7 K/mm3 (0.7-4.5); Lymphocytes % 22.6 % (10-50); Mean Corpuscular HGB Conc 30.9 g/dL (31.8-35.4); Mean Corpuscular Hemoglobin 27.9 pg (27.0-31.2); Mean Corpuscular Volume 90.2 fl (81-99); Mean Platelet Volume 8.1 fl (7.4-10.4); Monocytes % 10.4 % (1.7-9.3); Neutrophils # 7.9 K/mm3 (1.8-7.8); Neutrophils % 66.1 % (37.0-80.0); Platelet Count 304 K/mm3 (142-424); Red Blood Count 4.29 M/mm3 (4.20-5.40); Red Cell Distribution Width 15.9 % (11.5-17.5); White Blood Count 11.9 K/mm3 (4.8-10.8)
[2023-05-28 09:15] LABS: Hemoglobin A1C 8.7 % (4.0-6.0)
[2023-05-28] MEDS: humaLOG MIX 75/25 3ML FLEXPEN 12 UNIT SQ ×2 (10:01→21:30)
[2023-05-28] MEDS: APIXABAN 5MG TABLET 5 MG PO ×2 (10:01→20:53)
[2023-05-28] MEDS: TOPIRAMATE 25MG TABLET 50 MG PO ×2 (10:01→20:50)
[2023-05-28] MEDS: BUSPIRONE HCL 10 MG TABLET PO (10:01)
[2023-05-28] MEDS: GABAPENTIN 300MG CAPSULE 300 MG PO ×3 (10:01→20:50)
[2023-05-28] MEDS: ISOSORBIDE MONO 30MG TAB.ER.24H 30 MG PO (10:02)
[2023-05-28] MEDS: predniSONE 20MG TAB 20 MG PO (10:02)
[2023-05-28] MEDS: FUROSEMIDE 40MG/4ML VIAL 40 MG IV (10:02)
[2023-05-28] MEDS: SERTRALINE 100MG TABLET 150 MG PO (10:02)
[2023-05-28] MEDS: DOXYCYCLINE HYCL 100 MG TABLET PO ×2 (10:02→20:51)
[2023-05-28] MEDS: VANCOMYCIN HCL 50MG/ML 150ML KIT 125 MG PO ×4 (10:14→21:30)
--- NOTE | 2023-05-28 10:55 | [facility].PTEV ---
Physical Therapy Evaluation Rehab PT IP Evaluation Start: 05/28/23 08:43 Freq: ONCE Status: Active Protocol: Document 05/28/23 10:13 [email or web address] (Rec: 05/28/23 10:35 HWADE [id number]) Subjective/History History History Pt is a 63 year old female that presented to [facility] ED with complaints of itchiness, cough , diarrhea and intermittent swelling of BLE's. Workup in ED positive for COPD exacerbation and diffuse wheezing. Pt has a PMH significant for atrial fibrillation, diastolic heart failure, COPD on 3 L nasal cannula at baseline, CKD, depression, anxiety, T2DM, hypertension. Pt was admitted for further evaluation and management. Pt is a poor historian; reports at baseline, she lives at home in an apartment with 0 KODY. Pt reports she uses a SPC for all mobility, states she sometimes uses a w/c for household mobility d/t shortness of breath. Pt reports she uses a w/c occassionally but unclear if pt uses everyday. Pt reports she is on 3L supplemental O2 via NC at night and only uses O2 as needed during the day. Pt reports she does not drive and that her daughter and granddaughter assist with transportation to appointments . Pt reports x2 falls over the last 3 months without significant injury. Subjective Subjective Pt participated in PT initial evaluation this date. Upon arrival to pt's room, pt presents standing independently adjusting oxygen on wall without AD or staff present. Pt reports she was feeling short of breath and felt like her oxygen needed to increase. Pt reports 5/10 generalized body pain at rest with specific mention to BLE's . Pt demonstrates BUE/BLE tremors during subjective history, states they began a few months ago but is unsure why. Pt performed sit to stand transfer with use of SPC and CGA for safety. Pt ambulated x30' with use of SPC and CGA for safety. Pt demonstrates increased forward flexed posture, short (B) step length , decreased (B) heel strike and generalized unsteadiness during gait. Pt demonstrated x1 LOB during gait training but was able to self correct without PT assistance. Following PT evaluation, pt left seated on toilet with tech present to assist with toileting/showering. New diagnosis of cancer in past 12 No months? Rehab PT IP Eval Objective Appearance Patient Behavior Appropriate,Anxious Patient Orientation Person,Place,Time,Situation Difficulty following instructions mild Speech Pattern Clear,Appropriate Ambulation Patient Able to Ambulate Yes Ambulation Observation IP General Gait Pattern Observation Shuffling Step,Decrease Stride Lngth (R),Decrease Stride Lngth (L) Ambulation Distance (feet) 30 Ambulation Assistive Device Straight Cane Ambulation Ability Contact Guard/Hand Hold Balance Ability to Arise Able, uses arms to help Sitting Balance Steady, safe Standing Balance Steady, wide stance Dynamic Sitting Balance Ability Good Dynamic Standing Balance Ability Fair Transfers Sit to Stand Bed Transfer Ability Contact Guard/Hand Hold Pain Generalized Pain Intensity 5 ROM All Extremities PT ROM Status WFL MMT RLE PT MMT WFL Abnormal MMT Grade RLE MMT grossly 4-/5; WFL for daily activities LLE PT MMT WFL Abnormal MMT Grade LLE MMT grossly 4/5; WFL for daily activities Rehab PT IP prob,goals,plan Problems Date of Evaluation: 05/28/23 PT IP Problems Bed Mobility,Transfers,Gait, Balance,Safety Rehab Potential Rehab Potential Good Equipment Needs Assistive Devices Rolling / Wheeled Walker Plan PT Intervention Plan Bed Mobility,Transfers,Gait, Balance,Safety,Therapeutic Exercise PT Plan Frequency Daily Duration LOS Discharge Goals Bed Transfer Ability Independent Sit to Stand Chair Transfer Ability Independent Ambulation Assistive Device Rolling Walker Ambulation Distance (feet) 100 Discharge Plan PT Discharge Plan During initial evaluation, pt demonstrates impaired balance, strength, transfer ability, endurance and activity tolerance which limits pt's functional independence; however upon initial arrival to pt's room, pt was up (I) without AD or staff assistance to adjust oxygen. Recommend skilled PT intervention during IP admission to address identified impairments, reduce risk of falls, prevent functional decline and allow pt to return to [facility]. Once medically stable, recommend pt to d/c home with assist from family and HHPT versus STR to due to impairments identified during initial evaluation. Recommend pt to use a RW for all functional mobility at time of d/c due to impaired static/dynamic balance during transfers and gait assessment. Eval Complexity Eval Charge Codes 81406 - Moderate Complexity PHYSICIAN CERTIFICATION: I certify the specified therapy services for Kassy Bartlett are required, authorized, and reviewed every 30 days.
--- NOTE | 2023-05-28 15:48 | EXP.ACUTE.PN ---
Subjective *Date: 05/28/23 *Time: 16:01 Medical Exam Vital signs and Labs for Last 24 Hours: Vital Signs Temp Pulse Pulse Resp BP BP Pulse Ox 05/28/23 15:00 05/28/23 14:27 92 H 05/28/23 14:27 90 05/28/23 14:27 99 05/28/23 13:00 05/28/23 12:00 97.8 F 84 20 162/94 H 96 05/28/23 11:00 05/28/23 10:55 84 05/28/23 10:55 86 05/28/23 10:55 96 05/28/23 09:00 05/28/23 08:00 05/28/23 07:45 98.2 F 87 18 155/79 H 96 05/28/23 07:10 80 05/28/23 07:10 89 05/28/23 07:10 98 05/28/23 06:22 05/28/23 05:00 05/28/23 04:00 98.1 F 83 20 116/72 96 05/28/23 03:00 05/28/23 01:00 05/28/23 00:00 98.5 F 98 H 18 159/85 H 94 L 05/27/23 23:00 05/27/23 21:50 98 H 05/27/23 21:50 92 H 05/27/23 21:50 95 05/27/23 21:00 05/27/23 20:20 05/27/23 20:00 98.6 F 87 18 152/77 H 94 L 05/27/23 19:56 99.0 F 93 H 13 108/83 L 05/27/23 17:30 85 186/100 H 94 L 05/27/23 17:00 79 171/96 H 95 05/27/23 16:38 84 149/79 H 93 L 05/27/23 16:00 83 162/83 H 91 L O2 Del Method O2 Flow Rate 05/28/23 15:00 Nasal Cannula 1 05/28/23 14:27 05/28/23 14:27 05/28/23 14:27 Nasal Cannula 1 05/28/23 13:00 Nasal Cannula 1 05/28/23 12:00 Nasal Cannula 2 05/28/23 11:00 Nasal Cannula 1 05/28/23 10:55 05/28/23 10:55 05/28/23 10:55 Nasal Cannula 2 05/28/23 09:00 Nasal Cannula 1 05/28/23 08:00 Nasal Cannula 2 05/28/23 07:45 Nasal Cannula 1 05/28/23 07:10 05/28/23 07:10 05/28/23 07:10 Nasal Cannula 3 05/28/23 06:22 Nasal Cannula 3 05/28/23 05:00 Nasal Cannula 3 05/28/23 04:00 Nasal Cannula 3 05/28/23 03:00 Nasal Cannula 3 05/28/23 01:00 Nasal Cannula 3 05/28/23 00:00 Nasal Cannula 3 05/27/23 23:00 Nasal Cannula 3 05/27/23 21:50 05/27/23 21:50 05/27/23 21:50 Nasal Cannula 3 05/27/23 21:00 Nasal Cannula 3 05/27/23 20:20 Nasal Cannula 3 05/27/23 20:00 Nasal Cannula 3 05/27/23 19:56 Nasal Cannula 3 05/27/23 17:30 05/27/23 17:00 05/27/23 16:38 05/27/23 16:00 Intake and Output 05/27/23 05/28/23 05/28/23 23:59 07:59 15:59 Intake Total 120 / 370 250 / 370 Output Total 0 / 0 0 / 0 Balance 0 / 120 120 / 370 250 / 370 Intake: Intake, Oral Amount 120 / 370 250 / 370 Output: Output, Urine Amount 0 / 0 0 / 0 Other: Number of Unmeasured Voids 1 1 Weight 59.602 kg 59.602 kg Patient Weight 05/28/23 23:59 Weight 59.602 kg Laboratory Results - last 24 hr 05/27/23 15:17: Urine Color Yellow, Urine Appearance Clear, Urine pH 6.0, Ur Specific [place] >= 1.030, Urine Protein 3+, Urine Glucose (UA) Trace, Urine Ketones 1+, Urine Blood 2+, Urine Nitrate Negative, Urine Bilirubin 2+ A, Urine Urobilinogen 0.2, Ur Leukocyte Esterase Negative, Urine RBC 3-5, Urine WBC None, Ur Squamous Epith Cells None, Urine Bacteria None 05/27/23 15:42: SARS-CoV-2 (PCR) Not detected, Influenza A Untype (PCR) Not detected, Influenza Type B (PCR) Not detected 05/27/23 15:50: WBC 11.1 H, RBC 5.11, Hgb 14.5, Hct 46.0, MCV 90.1, MCH 28.3, MCHC 31.4 L, RDW 15.9, Plt Count 336, MPV 9.1, Neut % (Auto) 69.3, Lymph % (Auto) 22.1, [place] % (Auto) 6.0, Eos % (Auto) 0.9, Baso % (Auto) 1.6, Neut # (Auto) 7.7, Lymph # (Auto) 2.5, [place] # (Auto) 0.7, Eos # (Auto) 0.1, Baso # (Auto) 0.2 05/27/23 15:54: VBG pH 7.40, VBG pCO2 44.4, VBG pO2 44.4 H, VBG HCO3 27.0, VBG Total CO2 28.4 H, VBG O2 Saturation 81.4 H, VBG Base Excess 2.2, VBG Lactic Acid 1.8 05/27/23 16:22: Sodium 138, Potassium 4.2, Chloride 105, Carbon Dioxide 32 H, Anion Gap 5.2, BUN 27 H, Creatinine 0.90, Estimated Creat Clear 53, Estimated GFR 63, Est GFR ( Amer) 77, Glucose 166 H, Calcium 8.5, Total Bilirubin 0.6, AST 48 H, ALT 34, Alkaline Phosphatase 94, Troponin I < 0.01, NT-Pro-B Natriuret Pep 1130 H, Total Protein 5.9 L, Albumin 2.9 L, Globulin 3.0, Albumin/Globulin Ratio 1.0 L 05/27/23 17:55: Troponin I 0.02, Procalcitonin 0.105 05/27/23 21:40: Troponin I < 0.01 05/27/23 23:30: POC Glucose 450 H* 05/27/23 23:55: Troponin I < 0.01 05/28/23 02:10: POC Glucose 409 H* 05/28/23 03:25: Troponin I < 0.01 05/28/23 05:14: POC Glucose 198 H 05/28/23 06:55: WBC 11.9 H, RBC 4.29, Hgb 12.0 L D, Hct 38.7, MCV 90.2, MCH 27.9, MCHC 30.9 L, RDW 15.9, Plt Count 304, MPV 8.1, Neut % (Auto) 66.1, Lymph % (Auto) 22.6, [place] % (Auto) 10.4 H, Eos % (Auto) 0.1, Baso % (Auto) 0.7, Neut # (Auto) 7.9 H, Lymph # (Auto) 2.7, [place] # (Auto) 1.2 H, Eos # (Auto) 0.0, Baso # (Auto) 0.1, Sodium 139, Potassium 3.8, Chloride 103, Carbon Dioxide 33 H, Anion Gap 6.8, BUN 38 H D, Creatinine 1.50 H D, Estimated Creat Clear 37, Estimated GFR 35 L, Est GFR ( Amer) 43 L D, Glucose 149 H, Hemoglobin A1c 8.7 H, Calcium 8.2 L, Triglycerides 88, Cholesterol 186, LDL Cholesterol Direct 68.89 L, VLDL Cholesterol 18, HDL Cholesterol 78 H, Cholesterol/HDL Ratio 2.4 I & O for Labs for Last 24 Hours: Intake & Output 05/25/23 05/26/23 05/27/23 05/28/23 23:59 23:59 23:59 23:59 Intake Total 370 / 370 Output Total 0 / 0 0 / 0 Balance 0 / 120 370 / 370 Weight 59.602 kg 59.602 kg Constitutional: Present no acute distress, average body habitus, chronically ill appearing and cooperative Head: Present atraumatic and normocephalic ENT: Present normal exam Neck: Present normal inspection Respiratory: Present prolonged expiratory phase, wheezes and normal respiratory effort; Absent rhonchi or crackles Cardiac: Present Regular Rhythm and Tachycardia GI: Present soft and normal bowel sounds; Absent distention or tenderness Extremities: Present normal inspection and full ROM; Absent edema Comment:: Senile purpura on arms Skin: Present intact and ecchymosis; Absent erythema Neuro: Present Grossly Intact, alert, awake, oriented x 3 and moves all extremities Comment:: Tremor present Assessment and Plan *Assessment and plan (1) Acute on chronic diastolic (congestive) heart failure: Status: Acute Category: Medical Code(s): I50.33 - Acute on chronic diastolic (congestive) heart failure (2) Chronic respiratory failure: Status: Acute Category: Medical Code(s): J96.10 - Chronic respiratory failure, unspecified whether with hypoxia or hypercapnia (3) Acute exacerbation of chronic obstructive pulmonary disease: Status: Acute Category: Medical Code(s): J44.1 - Chronic obstructive pulmonary disease with (acute) exacerbation (4) Anxiety and depression: Status: Acute Category: Medical Code(s): F41.9 - Anxiety disorder, unspecified; F32.A - Depression, unspecified Plan Ms. Bartlett is a 63-year-old female with chronic hypoxemic respiratory failure, chronic anticoagulation, poorly controlled diabetes, chronic pain, anxiety. Presented with multiple complaints. Concern for COPD exacerbation. Responding to treatment for diabetes. Clinically improving. Continues to complain that she does not feel well however. Tremor noted this morning. Having diarrhea. Has extensive history of C. difficile. Initiated empirically on vancomycin p.o. Will monitor overnight for clinical stability prior to discharge home. Problems addressed as follows: # Chronic respiratory failure with hypoxia # COPD exacerbation #Acute on chronic diastolic congestive heart failure Goal sats greater 90%. Weaned to 1 L this morning. Continue diuresis daily 40 mg Lasix. Having good urine output. Edema improved. Seeing improvement in breathing as above. Continue doxycycline 100 mg p.o. twice daily. Chest imaging reviewed, no focal consolidation Will add metoprolol 12.5 mg twice daily for blood pressure and rate control. Continue isosorbide mononitrate as daily, Farxiga 10 mg daily, Lipitor 10 mg nightly, Eliquis 5 mg twice daily Pending response to medical management, will consider cardiology consult versus outpatient follow-up Diarrhea: -History of C. difficile per chart review. Will initiate empirically on vancomycin given complaint of diarrhea and foul smell. Continue vancomycin p.o. 125 mg 4 times a day. Stool panel pending # T2DM A1C 8.7 this morning resume farxiga 10 mg daily; Hold metformin 1000mg BID Continue 70/30 insulin regimen Continue sliding scale # Anxiety and depression Continue BuSpar 10 mg twice daily, Zoloft 150 mg daily # GERD Continue home medications # Chronic pain Continue home oxycodone 1 tablet 4 times a day as needed for pain. States compliance with regimen at home DVT PPx on home Eliquis Full code Diabetic diet
[2023-05-28 17:18] LABS: POC Glucose,Bedside 147 (70-110)
[2023-05-28 17:18] LABS: POC Glucose,Bedside 425 (70-110)
[2023-05-28] MEDS: ATORVASTATIN 10MG TABLET 10 MG PO (20:51)
[2023-05-28] MEDS: METOPROLOL TARTRATE 25MG TABLET 12.5 MG PO (23:05)
[2023-05-29] VITALS (12 sets, daily range): BP systolic 116–150; BP diastolic 64–86; PULSE 73–93; RESP 16–24; TEMP 36.6–36.9; O2SAT 92–99; BMI 23.3
[2023-05-29] MEDS: IPRATROPIUM/ALBUTEROL 3 ML NEB IH ×2 (01:59→06:42)
[2023-05-29] MEDS: OXYCODONE 7.5MG W/APAP 325MG TABLET 1 EACH PO ×4 (03:12→23:16)
[2023-05-29] MEDS: MELATONIN 5MG TABLET 10 MG PO ×2 (03:26→21:30)
[2023-05-29] MEDS: PHENOL THROAT SPRAY 177 ML BOTTLE MM (03:29)
--- NOTE | 2023-05-29 05:11 | PC.NURSE ---
Patient is alert and orient X4. Patient has been awake all night. Patient stated that she hasn't slept in over 48 hours. She is noted to be very anxious. Patient c/o sore throat, ringing in right ear and nasal congestion. Inspector [employer] spoke to [employer] in r/t the complaints and concerns. New order for Melatonin 10mg PO QHS and Phenol Throat Fellows PRN. Patient is aware of new orders. Patient voiced to underwriter mortgage loan that she has taken Melatonin before and it has never worked but agreed on trying it. Phenol Throat Fellows noted with effectiveness.
[2023-05-29] MEDS: humaLOG 100 UNITS/ML 3ML VIAL (SSI) SQ ×3 (07:10→22:49)
[2023-05-29 07:27] LABS: Chloride 110 mmol/L (98-107); Potassium 4.5 mmoL/L (3.5-5.1); Sodium 141 mmol/L (136-145)
[2023-05-29 07:29] LABS: Blood Urea Nitrogen 46 mg/dl (7-17); Creatinine Clearance Estimated 38 mL/min (50-200); Estimated Glomerular Filt Rate 35 ml/min (>60); GFR (African American) 43 ML/MIN (>60)
[2023-05-29 07:30] LABS: Alanine Aminotransferase 51 U/L (12-78); Albumin Level 2.6 g/dl (3.5-5.0); Alkaline Phosphatase 87 U/L (38-126); Anion Gap 4.5 mEq/L (5-15); Aspartate Amino Transferase 133 U/L (14-36); Bilirubin,Total 0.3 mg/dl (0.2-1.3); Calcium 7.3 mg/dl (8.4-10.2); Carbon Dioxide 31 mmol/L (22.0-30.0); Globulin 2.7 g/dL (1.3-3.2); Glucose 175 mg/dl (74-100); Magnesium 1.4 mg/dl (1.6-2.3); Total Protein,Serum 5.3 g/dl (6.3-8.2)
[2023-05-29 07:33] LABS: Basophils # 0.1 K/mm3 (0-0.2); Basophils % 0.7 % (0.1-2.0); Eosinophils # 0.1 K/mm3 (0.0-0.4)
[2023-05-29 07:40] LABS: Eosinophils % 1.2 % (0.1-12.0); Hematocrit 35.4 % (37.0-47.0); Lymphocytes # 3.8 K/mm3 (0.7-4.5); Lymphocytes % 37.4 % (10-50); Mean Corpuscular HGB Conc 30.5 g/dL (31.8-35.4); Mean Corpuscular Hemoglobin 28.3 pg (27.0-31.2); Mean Corpuscular Volume 92.9 fl (81-99); Mean Platelet Volume 8.1 fl (7.4-10.4); Monocytes # 0.8 K/mm3 (0.1-1.0); Monocytes % 7.8 % (1.7-9.3); Neutrophils # 5.4 K/mm3 (1.8-7.8); Neutrophils % 52.9 % (37.0-80.0); Platelet Count 253 K/mm3 (142-424); Red Blood Count 3.81 M/mm3 (4.20-5.40); White Blood Count 10.2 K/mm3 (4.8-10.8)
[2023-05-29 08:12] LABS: Hemoglobin 10.8 g/dL (12.2-16.2)
[2023-05-29] MEDS: ISOSORBIDE MONO 30MG TAB.ER.24H 30 MG PO (08:49)
[2023-05-29] MEDS: MAGNESIUM OXIDE 400MG TABLET 400 MG PO (08:50)
[2023-05-29] MEDS: SERTRALINE 100MG TABLET 150 MG PO (08:51)
[2023-05-29] MEDS: GABAPENTIN 300MG CAPSULE 300 MG PO ×3 (08:53→22:57)
[2023-05-29] MEDS: hydrOXYzine pamoate 25MG CAPSULE 25 MG PO ×2 (08:54→22:53)
[2023-05-29] MEDS: TOPIRAMATE 25MG TABLET 50 MG PO (08:55)
[2023-05-29] MEDS: APIXABAN 5MG TABLET 5 MG PO ×2 (08:55→22:57)
[2023-05-29] MEDS: DOXYCYCLINE HYCL 100 MG TABLET PO ×2 (08:55→22:56)
[2023-05-29] MEDS: predniSONE 20MG TAB 20 MG PO (08:56)
[2023-05-29] MEDS: METOPROLOL TARTRATE 25MG TABLET 12.5 MG PO ×2 (08:58→22:55)
[2023-05-29] MEDS: DAPAGLIFLOZIN PROPANEDIOL 10 MG TABLET PO (08:58)
[2023-05-29] MEDS: humaLOG MIX 75/25 3ML FLEXPEN 15 UNIT SQ ×2 (09:00→22:50)
[2023-05-29] MEDS: VANCOMYCIN HCL 50MG/ML 150ML KIT 125 MG PO ×4 (09:03→22:52)
[2023-05-29] MEDS: MAGNESIUM SULFATE IN WATER 2 GM/50 ML PIGGYBACK IV (09:08)
[2023-05-29 10:01] LABS: Troponin I < 0.01 ng/ml (0.00-0.034)
[2023-05-29] MEDS: BUDESONIDE 0.5MG/2ML NEB 0.5 MG IH ×2 (10:27→19:08)
[2023-05-29] MEDS: IPRATROPIUM BROMIDE 0.5 MG/2.5ML SOLUTION IH ×2 (10:27→19:08)
[2023-05-29] MEDS: LEVALBUTEROL 1.25MG/3ML NEB 1.25 MG IH ×2 (10:27→19:08)
[2023-05-29] MEDS: NICOTINE 21MG/24HR PATCH 21 MG TD (10:28)
--- NOTE | 2023-05-29 12:02 | P.PN_ITS ---
Subjective *Date: 05/29/23 *Time: 12:02 Interval history: Patient remains quite wheezy. Tremor stable but significant today. Significant electrolyte disturbances. Patient seeing improvement ambulation, using her cane to walk around. Weaned to 1 L nasal cannula today. No nausea or vomiting. Has had little to no sleep during admission. Afebrile. Medical Exam Vital signs and Labs for Last 24 Hours: Vital Signs Temp Pulse Pulse Resp BP Pulse Ox O2 Del Method 05/29/23 11:00 Room Air 05/29/23 10:25 75 05/29/23 10:25 73 05/29/23 10:25 96 Room Air 05/29/23 09:00 Room Air 05/29/23 08:00 96 Room Air 05/29/23 08:00 98.0 F 85 16 138/80 98 Room Air 05/29/23 06:42 75 05/29/23 06:42 85 05/29/23 06:42 94 L Nasal Cannula 05/29/23 06:35 Nasal Cannula 05/29/23 04:55 Nasal Cannula 05/29/23 04:00 98.4 F 76 17 126/72 96 05/29/23 03:00 Nasal Cannula 05/29/23 02:48 83 05/29/23 02:47 93 H 05/29/23 00:42 Nasal Cannula 05/29/23 00:00 98.1 F 84 16 135/64 99 05/28/23 23:00 Nasal Cannula 05/28/23 21:00 Nasal Cannula 05/28/23 20:00 98.6 F 100 H 17 95/62 L 93 L 05/28/23 19:34 Nasal Cannula 05/28/23 19:31 91 H 05/28/23 19:29 88 05/28/23 19:28 93 H 05/28/23 18:19 Room Air 05/28/23 17:29 90 L Room Air 05/28/23 17:00 Room Air 05/28/23 16:00 98.5 F 105 H 20 142/61 H 93 L Nasal Cannula 05/28/23 15:00 Nasal Cannula 05/28/23 14:27 92 H 05/28/23 14:27 90 05/28/23 14:27 99 Nasal Cannula 05/28/23 13:00 Nasal Cannula O2 Flow Rate 05/29/23 11:00 05/29/23 10:25 05/29/23 10:25 05/29/23 10:25 05/29/23 09:00 05/29/23 08:00 05/29/23 08:00 05/29/23 06:42 05/29/23 06:42 05/29/23 06:42 1 05/29/23 06:35 1 05/29/23 04:55 1 05/29/23 04:00 05/29/23 03:00 1 05/29/23 02:48 05/29/23 02:47 05/29/23 00:42 1 05/29/23 00:00 05/28/23 23:00 1 05/28/23 21:00 1 05/28/23 20:00 05/28/23 19:34 1 05/28/23 19:31 05/28/23 19:29 05/28/23 19:28 05/28/23 18:19 05/28/23 17:29 05/28/23 17:00 05/28/23 16:00 1 05/28/23 15:00 1 05/28/23 14:27 05/28/23 14:27 05/28/23 14:27 1 05/28/23 13:00 1 Intake and Output 05/28/23 05/29/23 05/29/23 23:59 07:59 15:59 Intake Total 240 / 850 240 / 440 200 / 440 Output Total 600 / 600 0 / 500 500 / 500 Balance -360 / 250 240 / -60 -300 / -60 Intake: Intake, Oral Amount 240 / 850 240 / 440 200 / 440 Output: Output, Urine Amount 600 / 600 0 / 500 500 / 500 Other: Number of Voids 2 1 Number of Unmeasured Voids 0 1 Number of Bowel Movements 1 1 Weight 62.051 kg Patient Weight 05/29/23 23:59 Weight 62.051 kg Laboratory Results - last 24 hr 05/28/23 12:04: POC Glucose 147 H 05/28/23 16:24: POC Glucose 425 H* 05/29/23 06:45: WBC 10.2, RBC 3.81 L, Hgb 10.8 L, Hct 35.4 L, MCV 92.9, MCH 28.3, MCHC 30.5 L, RDW 16.0, Plt Count 253, MPV 8.1, Neut % (Auto) 52.9, Lymph % (Auto) 37.4, [place] % (Auto) 7.8, Eos % (Auto) 1.2, Baso % (Auto) 0.7, Neut # (Auto) 5.4, Lymph # (Auto) 3.8, [place] # (Auto) 0.8, Eos # (Auto) 0.1, Baso # (Auto) 0.1, Sodium 141, Potassium 4.5, Chloride 110 H, Carbon Dioxide 31 H, Anion Gap 4.5 L, BUN 46 H, Creatinine 1.50 H, Estimated Creat Clear 38, Estimated GFR 35 L, Est GFR ( Amer) 43 L, Glucose 175 H, Calcium 7.3 L, Magnesium 1.4 L, Total Bilirubin 0.3, AST 133 H D, ALT 51 D, Alkaline Phosphatase 87, Troponin I < 0.01, Total Protein 5.3 L, Albumin 2.6 L, Globulin 2.7, Albumin/Globulin Ratio 1.0 L I & O for Labs for Last 24 Hours: Intake & Output 05/26/23 05/27/23 05/28/23 05/29/23 23:59 23:59 23:59 23:59 Intake Total 610 / 850 440 / 440 Output Total 0 / 0 600 / 600 500 / 500 Balance 0 / 120 10 / 250 -60 / -60 Weight 59.602 kg 59.602 kg 62.051 kg Constitutional: Present no acute distress, average body habitus, chronically ill appearing and cooperative Head: Present atraumatic and normocephalic ENT: Present normal exam Neck: Present normal inspection Respiratory: Present prolonged expiratory phase, wheezes (Somewhat worse today than yesterday) and normal respiratory effort; Absent rhonchi or crackles Cardiac: Present Regular Rhythm and Tachycardia GI: Present soft and normal bowel sounds; Absent distention or tenderness Extremities: Present normal inspection and full ROM; Absent edema Comment:: Senile purpura on arms Skin: Present intact and ecchymosis; Absent erythema Neuro: Present Grossly Intact, alert, awake, oriented x 3 and moves all extremities Comment:: Tremor present Assessment and Plan *Assessment and plan (1) Acute on chronic diastolic (congestive) heart failure: Status: Acute Category: Medical Code(s): I50.33 - Acute on chronic diastolic (congestive) heart failure (2) Chronic respiratory failure: Status: Acute Category: Medical Code(s): J96.10 - Chronic respiratory failure, unspecified whether with hypoxia or hypercapnia (3) Acute exacerbation of chronic obstructive pulmonary disease: Status: Acute Category: Medical Code(s): J44.1 - Chronic obstructive pulmonary disease with (acute) exacerbation (4) Anxiety and depression: Status: Acute Category: Medical Code(s): F41.9 - Anxiety disorder, unspecified; F32.A - Depression, unspecified Plan Ms. Bartlett is a 63-year-old female with chronic hypoxemic respiratory failure, chronic anticoagulation, poorly controlled diabetes, chronic pain, anxiety. Presented with multiple complaints. Concern for COPD exacerbation. Responding to treatment for diabetes. Clinically improving. Continues to complain that she does not feel well however. Tremor noted this morning. Having diarrhea. Has extensive history of C. difficile. Initiated empirically on vancomycin p.o. Will monitor overnight for clinical stability prior to discharge home, would like to have pulmonology see patient in the morning prior to discharge tomorrow. Consult placed. Problems addressed as follows: # Chronic respiratory failure with hypoxia # COPD exacerbation #Acute on chronic diastolic congestive heart failure # Nicotine dependence Goal sats greater 90%. Weaned to 1 L this morning. Continue diuresis daily 40 mg Lasix. Having good urine output. Edema improving. Seeing improvement in breathing as above. Continue doxycycline 100 mg p.o. twice daily for 5 days. Chest imaging reviewed, no focal consolidation Continue metoprolol 12.5 mg twice daily for blood pressure and rate control. Continue isosorbide mononitrate as daily, Farxiga 10 mg daily, Lipitor 10 mg nightly, Eliquis 5 mg twice daily Significantly wheezy, transition to levalbuterol and ipratropium every 6 hours to decrease risk for exacerbation of tremor from medication Reports smoking 2 packs a day of cigarettes. Was not forthcoming with this information prior to today. Will initiate nicotine patch daily. Loose stools /diarrhea: -History of C. difficile per chart review. Continue vancomycin p.o. 125 mg 4 times a day. Stool panel pending Electrolyte disturbances Magnesium low at 1.4, replaced with 2 g IV today. # T2DM A1C 8.7 this morning Continue farxiga 10 mg daily; Hold metformin 1000mg BID Continue 70/30 insulin regimen Continue sliding scale # Anxiety and depression: Discontinue BuSpar as it may worsen her anxiety and tremor. Continue Zoloft. Will initiate hydroxyzine 25 mg twice daily scheduled. Seroquel 25 mg tonight at bedtime to help with sleep and anxiety # GERD: Continue home medications # Chronic pain: Continue home oxycodone 1 tablet 4 times a day as needed for pain. States compliance with regimen at home DVT PPx on home Eliquis Full code Diabetic diet
[2023-05-29] MEDS: METFORMIN 500MG TABLET 500 MG PO (17:13)
--- NOTE | 2023-05-29 22:47 | CT_ITS ---
PROCEDURE INFORMATION: Exam: CT Abdomen And Pelvis Without Contrast Exam date and time: 05/29/2023 11:28 PM Age: 63 years old Clinical indication: Injury or trauma; Fall; Blunt; Generalized; Additional info: Unwitnessed fall. Left hip pain TECHNIQUE: Imaging protocol: Computed tomography of the abdomen and pelvis without contrast. Radiation optimization: All CT scans at this facility use at least one of these dose optimization techniques: automated exposure control; mA and/or kV adjustment per patient size (includes targeted exams where dose is matched to clinical indication); or iterative reconstruction. COMPARISON: CT ABDOMEN PELVIS WO CON 10/15/2021 4:35 PM FINDINGS: Lungs: Mild bilateral lower lobe bronchial wall thickening, compatible with reactive airway disease or bronchitis. Centrilobular emphysema within the visualized lower lobes. Calcified granuloma within the left lower lobe. Heart: Decreased attenuation of the intracardiac blood pool, with visualization of the interventricular septum, suggesting anemia. Liver: Normal. Gallbladder and bile ducts: Normal Pancreas: Normal. Spleen: Normal. Adrenal glands: Normal. No mass. Kidneys and ureters: Normal. Stomach and bowel: Colonic diverticulosis. Moderate amount of stool throughout the colon, suggesting constipation. No obstruction. Appendix: No evidence of appendicitis. Intraperitoneal space: Unremarkable. No free air. No significant fluid collection. Vasculature: Atherosclerotic calcification of the visualized distal thoracic aorta. Atherosclerotic disease of the abdominal aorta and iliac arteries. Lymph nodes: Unremarkable. No enlarged lymph nodes. Urinary bladder: Unremarkable as visualized. Reproductive: Unremarkable as visualized. Bones/joints: Partially visualized right dynamic hip screw. Mild degenerative changes of the hips, with joint space narrowing and osteophyte formation. Multilevel thoracolumbar spine degenerative disc space narrowing and osteophyte formation. At L3-L4 posterior disc osteophyte complex and facet arthropathy, causes central canal narrowing. No acute fracture or dislocation. Soft tissues: Normal. IMPRESSION: 1. Mild bilateral lower lobe bronchial wall thickening, compatible with reactive airway disease or bronchitis. 2. Moderate amount of stool throughout the colon, suggesting constipation. No obstruction. 3. No acute fracture or dislocation.
--- NOTE | 2023-05-29 22:47 | CT_ITS ---
PROCEDURE INFORMATION: Exam: CT Head Without Contrast Exam date and time: 05/29/2023 11:26 PM Age: 63 years old Clinical indication: Injury or trauma; Fall; Blunt trauma (contusions or hematomas); Additional info: Unwitnessed fall. On eliquis TECHNIQUE: Imaging protocol: Computed tomography of the head without contrast. Radiation optimization: All CT scans at this facility use at least one of these dose optimization techniques: automated exposure control; mA and/or kV adjustment per patient size (includes targeted exams where dose is matched to clinical indication); or iterative reconstruction. COMPARISON: CT HEAD/BRAIN WO CON 12/01/2019 11:25 PM FINDINGS: Brain: No hemorrhage. Unremarkable white matter. No mass effect. Preserved [place]-white interfaces. Cerebral ventricles: No ventriculomegaly. Paranasal sinuses: Left maxillary mucous retention cyst or polyp. Paranasal sinuses are otherwise clear. Mastoid air cells: Visualized mastoid air cells are well aerated. Bones/joints: Unremarkable. No acute fracture. Soft tissues: Unremarkable. IMPRESSION: No evidence of acute intracranial hemorrhage, mass effect, or edema.
--- NOTE | 2023-05-29 22:47 | XR_ITS ---
PROCEDURE INFORMATION: Exam: XR Left Elbow Exam date and time: 05/29/2023 11:27 PM Age: 63 years old Clinical indication: Injury or trauma; Fall; Blunt trauma (contusions or hematomas); Elbow; Left; Additional info: Unwitnessed fall, lt elbow pain TECHNIQUE: Imaging protocol: Radiologic exam of the left elbow. Views: 1 or 2 views. COMPARISON: No relevant prior studies available. FINDINGS: Bones/joints: No acute fracture or dislocation. Soft tissues: Mild posterior elbow soft tissue swelling. IMPRESSION: No acute fracture or dislocation.
[2023-05-29] MEDS: ATORVASTATIN 10MG TABLET 10 MG PO (22:54)
[2023-05-29 22:59] LABS: POC Glucose,Bedside 139 (70-110)
[2023-05-29 22:59] LABS: POC Glucose,Bedside 264 (70-110)
[2023-05-29 22:59] LABS: POC Glucose,Bedside 188 (70-110)
[2023-05-29 22:59] LABS: POC Glucose,Bedside 372 (70-110)
[2023-05-29 22:59] LABS: POC Glucose,Bedside 241 (70-110)
--- NOTE | 2023-05-29 23:01 | PC.NURSE ---
Staff sitting in breezeway at computers when heard commotion in room 204. Staff immediately went to assess patient. Patient was found on floor in front of bathroom door. Patient states she was sitting up in the chair and got up to go to the bathroom and tripped. Pt states she landed on the left side of her body and hit her head on the floor. Pt is complaining of pain in her left elbow, left hip and on the back of her head. No visual injuries noted. Call light noted to be in place of chair. Pt has non slip socks on. Staff state they had checked on patient needs around 2200. Pull alarm was not in place at time of fall. Vital signs taken on patient: BP 150/86, HR 90, 92% on RA, RR 24. Rishi Albarran was called to bedside to assess patient. Charge nurse and housefellow notified and came to bedside. Pt was helped back into bed. Bed alarm turned on. Rishi Albarran states he will order left elbow xray, left hip xray, and a head CT. Q30min patient observation intervention put in place. Patients RN states she will give patient tylenol for pain management.
[2023-05-29] MEDS: QUETIAPINE 25MG TABLET 50 MG PO (23:15)
--- NOTE | 2023-05-29 23:21 | PC.NURSE ---
Patient left floor for CT at this time.
--- NOTE | 2023-05-29 23:37 | PC.NURSE ---
Patient returned to floor from CT at this time.
[2023-05-30] VITALS: BP 129/72; PULSE 73; RESP 16; TEMP 36.4; O2SAT 94
--- NOTE | 2023-05-30 02:45 | PC.NURSE ---
Patient is currently laying in bed with the HOB elevated and eyes closed. Skin assessed from head to toe post fall. No visual injuries noted. Skin intact. Patient was c/o pain, rating pain 10 on 0-10 pain scale. PRN PCT 5/325mg given as ordered with effectiveness. CT of the head completed, CT of the Abdomen/Pelvis completed and X-Ray to Left elbow completed. Results noted with no new orders. Bed Alarm properly functioning and on as ordered.
[2023-05-30 04:00] VITALS: BP 119/68; PULSE 84; RESP 16; TEMP 36.6; O2SAT 96; BMI 23.3
[2023-05-30 05:33] VITALS: PULSE 62; PULSE 63
[2023-05-30] MEDS: IPRATROPIUM BROMIDE 0.5 MG/2.5ML SOLUTION IH ×2 (05:33→13:12)
[2023-05-30] MEDS: LEVALBUTEROL 1.25MG/3ML NEB 1.25 MG IH ×2 (05:33→13:12)
[2023-05-30] MEDS: BUDESONIDE 0.5MG/2ML NEB 0.5 MG IH (05:34)
[2023-05-30] MEDS: FLUTICASONE/UMECLIDIN/VILANTER 100/62.5/25MCG INHALER 1 PUFF IH (05:35)
[2023-05-30] MEDS: METFORMIN 500MG TABLET 500 MG PO (06:59)
[2023-05-30 07:17] LABS: POC Glucose,Bedside 110 (70-110)
--- NOTE | 2023-05-30 07:24 | P.DS_ITS ---
General Admission date:: 05/28/23 Discharge date: 05/30/23 HPI HPI HPI: This is a 63-year-old female with a past medical history of atrial fibrillation, diastolic heart failure, COPD on 3 L nasal cannula at baseline, CKD, depression, anxiety, T2DM, hypertension who presents emergency department with complaints of itchiness, cough and diarrhea. She has a multitude of complaints but ultimately patient states that she has had intermittent swelling of her lower extremities with increased orthopnea. States that she has been prescribed water pills in the past but she does not take them every day. She reports chronic cough that is productive, she also reports increased wheezing over the last several days. Emergency department workup notable for COPD exacerbation with diffuse wheezing on exam. Also noted to have an elevated BNP of 1000. Bilateral lower extremity swelling noted. Patchy opacities in the upper lobes of the lungs that might represent chronic infiltrates. Given patient's increased shortness of breath with edema and COPD exacerbation, she will be admitted to hospital service for further evaluation management. Hospital Course Hospital Course Hospital Course: Ms. Bartlett is a 63-year-old female with chronic hypoxemic respiratory failure, chronic anticoagulation, poorly controlled diabetes, chronic pain, anxiety. Presented with multiple complaints. Concern for COPD exacerbation. Responding to treatment for diabetes. Clinically improving. Continues to complain that she does not feel well however. Tremor noted this morning. Having diarrhea. Has extensive history of C. difficile. Initiated empirically on vancomycin p.o. Treated for COPD exacerbation during admission. Weaned to home O2 regimen. Pulmonology consulted to assist with management and for close follow-up. Responding to breathing treatments and at baseline )2. stable to DC home after PT/OT eval and recs of home with HH, Stable to DC. Problems addressed as follows: # Chronic respiratory failure with hypoxia # COPD exacerbation #Acute on chronic diastolic congestive heart failure # Nicotine dependence Initially requiring 3-4 L O2. Comprehensive respiratory panel negative. Significant wheezing during admission with slow improvement over duration of admission. Still present at Discharge, though improving. Pulmonology was consulted. Patient started on Trelegy. Continue treatment for COPD/pneumonia (xray with concerning infiltrate). Transitioned to levaquin 750mg Q48H renally dosed on day of discharge from doxycycline. will complete 5days of levaquin. continue steroids with PO prednisone. Responded well to diuresis regimen for CHF component. Continue lasix at discharge. Having good urine output. Edema improving. Continue metoprolol 12.5 mg twice daily for blood pressure and rate control. Continue isosorbide mononitrate as daily, Farxiga 10 mg daily, Lipitor 10 mg nightly, Eliquis 5 mg twice daily. Reports smoking 2 packs a day of cigarettes. Was not forthcoming with this information at start of admission. Started on nicotine patches. counseled on benefits of cessation and risk for wor sening exacerbation with continue smoking. Initiated nicotine patch daily. Overall improving with ability to DC today to complete therapy orally as outpatient. Loose stools /diarrhea: -History of C. difficile per chart review, at least 3 episodes between 2019 and 2021. No stool panel since. Initiated empirically on oral vancomycin p.o. 125 mg 4 times a day. Stool panel pending at discharge. Anticipate to return in a few days. Plan to treat for 10 days unless sample comes back negative and will discontinue antibiotics at that time. Electrolyte disturbances during admission that normalized with treatment. No replacement discharge # T2DM A1C 8.7 on admission. Continue farxiga 10 mg daily, resume metformin 1000mg BID Continue 70/30 insulin regimen # Anxiety and depression: Discontinue BuSpar as it may worsen her anxiety and tremor. Continue Zoloft. Initiated hydroxyzine 25 mg twice daily as needed. Seroquel 50mg nightly at bedtime to help with sleep and anxiety # GERD: Continue home medications # Chronic pain: Continue home oxycodone 1 tablet 4 times a day as needed for pain. States compliance with regimen at home Total time spent on discharge 38 minutes in counseling, documentation, chart review, and direct care with patient. Exam Data for Last 24 hours Vital signs and Labs for Last 24 Hours: Temp Pulse Resp BP Pulse Ox O2 Del Method O2 Flow Rate 97.8 F 62 16 119/68 96 Room Air 1 05/30/23 04:00 05/30/23 05:33 05/30/23 04:00 05/30/23 04:00 05/30/23 04:00 05/30/23 05:00 05/29/23 06:42 Laboratory Results - last 24 hr 05/28/23 22:43: POC Glucose 241 H 05/29/23 05:28: POC Glucose 188 H 05/29/23 06:45: WBC 10.2, RBC 3.81 L, Hgb 10.8 L, Hct 35.4 L, MCV 92.9, MCH 28.3, MCHC 30.5 L, RDW 16.0, Plt Count 253, MPV 8.1, Neut % (Auto) 52.9, Lymph % (Auto) 37.4, [place] % (Auto) 7.8, Eos % (Auto) 1.2, Baso % (Auto) 0.7, Neut # (Auto) 5.4, Lymph # (Auto) 3.8, [place] # (Auto) 0.8, Eos # (Auto) 0.1, Baso # (Auto) 0.1, Sodium 141, Potassium 4.5, Chloride 110 H, Carbon Dioxide 31 H, Anion Gap 4.5 L, BUN 46 H, Creatinine 1.50 H, Estimated Creat Clear 38, Estimated GFR 35 L, Est GFR ( Amer) 43 L, Glucose 175 H, Calcium 7.3 L, Magnesium 1.4 L, Total Bilirubin 0.3, AST 133 H D, ALT 51 D, Alkaline Phosphatase 87, Troponin I < 0.01, Total Protein 5.3 L, Albumin 2.6 L, Globulin 2.7, Albumin/Globulin Ratio 1.0 L 05/29/23 10:57: POC Glucose 139 H 05/29/23 16:19: POC Glucose 372 H* 05/29/23 21:33: POC Glucose 264 H 05/30/23 06:58: POC Glucose 110 I & O for Last 24 hours: Intake & Output 05/27/23 05/28/23 05/29/23 05/30/23 23:59 23:59 23:59 23:59 Intake Total 610 / 850 1450 / 1690 240 / 240 Output Total 0 / 0 600 / 600 1999 / 1999 0 / 0 Balance 0 / 120 10 / 250 -550 / -310 240 / 240 Weight 59.602 kg 59.602 kg 62.051 kg 62.051 kg Constitutional Constitutional: no acute distress, average body habitus, chronically ill appearing and disheveled *Routine HEENT Exam Head: Present normocephalic Eye: Present EOMI and PERRL ENT: Present mucous membranes moist *Routine Neck Exam Neck: Present supple; Absent lymphadenopathy *Routine Respiratory Exam Respiratory: Present prolonged expiratory phase, wheezes and normal respiratory effort; Absent rhonchi or crackles *Routine Cardiovascular Exam Cardiovascular: Present RRR *Routine Abdominal Exam Abdominal: Present soft and normoactive bowel sounds; Absent tenderness *Routine Rectal Exam Patient deferred: visual exam *Routine Exam Patient deferred: external exam *Routine Extremities Exam Extremities: Absent cyanosis, clubbing or edema *Routine Skin Exam Skin: Present intact and warm; Absent rash Comments: Senile purpura *Routine Neurological Exam Neurological: Present alert, oriented X3 and moving all extremities; Absent altered mental status Routine Psychiatric Exam Psychiatric: Present depressed and anxious Results Data Completed and Pending Labs on day of discharge: Labs from last 24 hours 05/30/23 05/29/23 05/29/23 06:58 21:33 16:19 WBC RBC Hgb Hct MCV MCH MCHC RDW Plt Count MPV Neut % (Auto) Lymph % (Auto) [place] % (Auto) Eos % (Auto) Baso % (Auto) Neut # (Auto) Lymph # (Auto) [place] # (Auto) Eos # (Auto) Baso # (Auto) Sodium Potassium Chloride Carbon Dioxide Anion Gap BUN Creatinine Estimated Creat Clear Estimated GFR Est GFR ( Amer) Glucose POC Glucose 110 264 H 372 H* Calcium Magnesium Total Bilirubin AST ALT Alkaline Phosphatase Troponin I Total Protein Albumin Globulin Albumin/Globulin Ratio 05/29/23 05/29/23 05/29/23 10:57 06:45 05:28 WBC 10.2 RBC 3.81 L Hgb 10.8 L Hct 35.4 L MCV 92.9 MCH 28.3 MCHC 30.5 L RDW 16.0 Plt Count 253 MPV 8.1 Neut % (Auto) 52.9 Lymph % (Auto) 37.4 [place] % (Auto) 7.8 Eos % (Auto) 1.2 Baso % (Auto) 0.7 Neut # (Auto) 5.4 Lymph # (Auto) 3.8 [place] # (Auto) 0.8 Eos # (Auto) 0.1 Baso # (Auto) 0.1 Sodium 141 Potassium 4.5 Chloride 110 H Carbon Dioxide 31 H Anion Gap 4.5 L BUN 46 H Creatinine 1.50 H Estimated Creat Clear 38 Estimated GFR 35 L Est GFR ( Amer) 43 L Glucose 175 H POC Glucose 139 H 188 H Calcium 7.3 L Magnesium 1.4 L Total Bilirubin 0.3 AST 133 H D ALT 51 D Alkaline Phosphatase 87 Troponin I < 0.01 Total Protein 5.3 L Albumin 2.6 L Globulin 2.7 Albumin/Globulin Ratio 1.0 L 05/28/23 22:43 WBC RBC Hgb Hct MCV MCH MCHC RDW Plt Count MPV Neut % (Auto) Lymph % (Auto) [place] % (Auto) Eos % (Auto) Baso % (Auto) Neut # (Auto) Lymph # (Auto) [place] # (Auto) Eos # (Auto) Baso # (Auto) Sodium Potassium Chloride Carbon Dioxide Anion Gap BUN Creatinine Estimated Creat Clear Estimated GFR Est GFR ( Amer) Glucose POC Glucose 241 H Calcium Magnesium Total Bilirubin AST ALT Alkaline Phosphatase Troponin I Total Protein Albumin Globulin Albumin/Globulin Ratio DS: Diagnosis Discharge Diagnosis (1) Acute on chronic diastolic (congestive) heart failure: Status: Acute Code(s): I50.33 - Acute on chronic diastolic (congestive) heart failure (2) Chronic respiratory failure: Status: Acute Code(s): J96.10 - Chronic respiratory failure, unspecified whether with hypoxia or hypercapnia (3) Acute exacerbation of chronic obstructive pulmonary disease: Status: Acute Code(s): J44.1 - Chronic obstructive pulmonary disease with (acute) exacerbation (4) Anxiety and depression: Status: Acute Code(s): F41.9 - Anxiety disorder, unspecified; F32.A - Depression, unspecified Meds Home Medications and Allergies Home Medications Medication Instructions Recorded Confirmed Type albuterol sulfate 90 mcg/actuation 2 puff inhalation Q4HP PRN 09/06/22 05/27/23 History aerosol inhaler Breathing Problems apixaban 5 mg tablet (Eliquis) 5 mg PO BID Blood Thinner 09/06/22 05/27/23 History topiramate 50 mg tablet 50 mg PO BID Migraine #180 tabs 11/29/22 05/27/23 Rx metformin 500 mg tablet 1,000 mg (2 x 500 mg) PO BID 02/17/23 05/27/23 Rx Diabetes 90 days #360 tabs pantoprazole 40 mg tablet,delayed 40 mg PO DAILY Acid Reflux #90 tabs 03/25/23 05/27/23 Rx release buspirone 5 mg tablet 10 mg (2 x 5 mg) PO BID 30 days 03/31/23 05/27/23 Rx #60 tabs gabapentin 300 mg capsule 300 mg PO TID #90 caps 03/31/23 05/27/23 Rx atorvastatin 10 mg tablet 10 mg PO HS 05/28/23 05/28/23 History dapagliflozin propanediol 10 mg 10 mg PO DAILY 05/28/23 05/28/23 History tablet (Farxiga) famotidine 20 mg tablet 20 mg PO BID 05/28/23 05/28/23 History isosorbide mononitrate 30 mg 30 mg PO DAILY 05/28/23 05/28/23 History tablet,extended release 24 hr oxycodone-acetaminophen 7.5 mg-325 1 tab PO QIDP PRN Moderate Pain 05/28/23 05/28/23 History mg tablet (Scale Score 5-6) sertraline 100 mg tablet 150 mg PO DAILY 05/28/23 05/28/23 History fluticasone fur. 100 mcg-umeclid 1 inh inhalation DAILY 30 days #1 05/30/23 Rx 62.5 mcg-vilant 25 mcg ea inhalat.powder (Trelegy Ellipta) insulin human U-100 NPH-regulr 14 unit (0.14 mL) SQ BID 30 days 05/30/23 Rx 70-30 mix 100 unit/mL subcutaneous #8.4 mL susp (Humulin 70/30 U-100 Insulin) levofloxacin 750 mg tablet 750 mg PO Q48H 4 days #2 tabs 05/30/23 Rx magnesium oxide 400 mg (241.3 mg 400 mg PO DAILY 30 days #30 tabs 05/30/23 Rx magnesium) tablet metoprolol tartrate 25 mg tablet 12.5 mg (1/2 x 25 mg) PO BID 30 05/30/23 Rx days #30 tabs nicotine 21 mg/24 hr daily 21 mg transdermal DAILY 28 days 05/30/23 Rx transdermal patch #28 ea prednisone 20 mg tablet 20 mg PO DAILY 2 days #2 tabs 05/30/23 Rx quetiapine 25 mg tablet 50 mg (2 x 25 mg) PO HS 30 days 05/30/23 Rx #60 tabs vancomycin 50 mg/mL oral solution 125 mg (2.5 mL) PO QID 7 days #70 05/30/23 Rx (Firvanq) mL New Prescriptions to Start Prescriptions: [id number] [Trelegy Ellipta] Sherman Chang insulin NPH and regular human [Humulin 70/30 U-100 Insulin] Sherman Chang levofloxacin Charlene,Sherman magnesium oxide Charlene,Sherman metoprolol tartrate Charlene,Sherman nicotine Charlene,Sherman prednisone Charlene,Sherman quetiapine Charlene,Sherman Allergies Allergy/AdvReac Type Severity Reaction Status Date / Time methocarbamol Allergy Severe Altered Verified 05/02/23 17:33 mental status terbutaline [TERBUTALINE] Allergy Severe SWELLS Verified 05/02/23 17:33 THROAT aspirin [ASPIRIN] Allergy Intermediate I-RASH Verified 05/02/23 17:33 codeine [CODEINE] Allergy Intermediate Swelling Verified 05/02/23 17:33 of the Eye diphenhydramine Allergy Intermediate Hives Verified 05/02/23 17:33 [From Benadryl] Sulfa (Sulfonamide Allergy Intermediate Hives Verified 05/02/23 17:33 Antibiotics) [SULFA (SULFONAMIDE ANTIBIOTICS)] sulfamethoxazole Allergy Intermediate Hives Verified 05/02/23 17:33 [From Bactrim] trimethoprim [From Bactrim] Allergy Intermediate Hives Verified 05/02/23 17:33 naproxen [NAPROXEN] Allergy Mild itching Verified 05/02/23 17:33 tramadol [TRAMADOL] Allergy Mild Vomiting Verified 05/02/23 17:33 citalopram [CITALOPRAM] Allergy Unknown SKIN PEEL Verified 05/02/23 17:33 erythromycin base Allergy Unknown I-RASH Verified 05/02/23 17:33 [ERYTHROMYCIN BASE] Penicillins [PENICILLINS] Allergy Unknown I-RASH Verified 05/02/23 17:33 bupropion [BUPROPION] AdvReac Severe Hallucinati Verified 05/02/23 17:33 ng duloxetine [DULOXETINE] AdvReac Severe Hallucinati Verified 05/02/23 17:33 ng pregabalin [PREGABALIN] AdvReac Severe Hallucinati Verified 05/02/23 17:33 ng celecoxib [From CELEBREX] AdvReac Mild Vomiting Verified 05/02/23 17:33 Discharge Plan Disposition Patient Disposition: Home Health Service Condition: Fair Discharge Order Discharge Orders: Discharge Order (Routine); Ordered 05/30/23 Ordered By: Sherman Chang Follow up Plan Follow up with: Cornell Hernandez DO [Primary Care Provider] - 06/06/23 11:00 am Raghavendra Granda MD [Physician] - 06/27/23 1:00 pm Prescriptions/Medication Reconciliation: [place] Ellipta 100-62.5-25 mcg Blister With Device 1 inh inhalation DAILY 30 Days Qty: 1 0RF nicotine 21 mg/24 hr Patch 24 Hour 21 mg transdermal DAILY 28 Days Qty: 28 2RF metoprolol tartrate 25 mg Tablet 12.5 mg PO BID 30 Days Qty: 30 0RF quetiapine 25 mg Tablet 50 mg PO HS 30 Days Qty: 60 0RF vancomycin [Firvanq] 50 mg/mL Recon Soln 125 mg PO QID 7 Days Qty: 70 0RF Rx Instructions: send bottle from inpatient prednisone 20 mg Tablet 20 mg PO DAILY 2 Days Qty: 2 0RF magnesium oxide 400 mg (241.3 mg magnesium) Tablet 400 mg PO DAILY 30 Days Qty: 30 0RF levofloxacin 750 mg tablet 750 mg PO Q48H 4 Days Qty: 2 0RF Rx Instructions: first dose due 05/31 Continued metformin 500 mg tablet 1,000 mg PO BID 90 Days Qty: 360 2RF buspirone 5 mg tablet 10 mg PO BID 30 Days Qty: 60 4RF gabapentin 300 mg capsule 300 mg PO TID Qty: 90 2RF topiramate 50 mg tablet 50 mg PO BID Qty: 180 0RF pantoprazole 40 mg tablet,delayed release (DR/EC) 40 mg PO DAILY Qty: 90 0RF albuterol sulfate 90 mcg/actuation HFA aerosol inhaler 2 puff INHALATION Q4HP PRN (Reason: Breathing Problems) Patient Comments: INHALE TWO PUFFS BY MOUTH EVERY 4 HOURS NEEDED FOR SHORTNESS OF BREATH Eliquis 5 mg tablet 5 mg PO BID Patient Comments: TAKE ONE TABLET BY MOUTH TWICE DAILY FOR BLOOD THINNER atorvastatin 10 mg tablet 10 mg PO HS Patient Comments: TAKE ONE TABLET BY MOUTH EVERY DAY AT BEDTIME famotidine 20 mg tablet 20 mg PO BID Patient Comments: TAKE ONE TABLET BY MOUTH TWICE DAILY dapagliflozin propanediol [Farxiga] 10 mg tablet 10 mg PO DAILY Patient Comments: TAKE ONE TABLET BY MOUTH EVERY DAY isosorbide mononitrate 30 mg tablet extended release 24 hr 30 mg PO DAILY oxycodone-acetaminophen 7.5-325 mg tablet 1 tab PO QIDP PRN (Reason: Moderate Pain (Scale Score 5-6)) Patient Comments: TAKE ONE TABLET BY MOUTH FOUR TIMES DAILY NEEDED FOR PAIN MAY CAUSE DROWSINESS sertraline 100 mg tablet 150 mg PO DAILY Patient Comments: TAKE 1 AND 1/2 TABLET BY MOUTH EVERY DAY Changed Humulin 70/30 U-100 Insulin 100 unit/mL (70-30) suspension 14 unit SQ BID 30 Days Qty: 8.4 0RF Other Ambulatory Orders: Home Medical Equipment (Routine) Location: None Selected Ordered By: Sherman Chang Problem Reconciliation Problems Reviewed?: Yes Patient Discharge Instructions ACTIVITY: Continue current activity DIET: continue same diet Patient Instructions: DI for Heart Failure, DI for Chronic Obstructive Pulmonary Disease Providers Primary Care Provider: Cornell Hernandez Admit Provider: Sherman Chang Attending Provider: Sherman Chang
[2023-05-30 07:42] VITALS: BP 151/84; PULSE 79; RESP 17; TEMP 36.6; O2SAT 93
[2023-05-30] MEDS: GABAPENTIN 300MG CAPSULE 300 MG PO ×2 (08:31→13:37)
[2023-05-30] MEDS: SERTRALINE 100MG TABLET 150 MG PO (08:31)
[2023-05-30] MEDS: APIXABAN 5MG TABLET 5 MG PO (08:31)
[2023-05-30] MEDS: DOXYCYCLINE HYCL 100 MG TABLET PO (08:31)
[2023-05-30] MEDS: hydrOXYzine pamoate 25MG CAPSULE 25 MG PO (08:31)
[2023-05-30] MEDS: METOPROLOL TARTRATE 25MG TABLET 12.5 MG PO (08:32)
[2023-05-30] MEDS: DAPAGLIFLOZIN PROPANEDIOL 10 MG TABLET PO (08:32)
[2023-05-30] MEDS: ISOSORBIDE MONO 30MG TAB.ER.24H 30 MG PO (08:32)
[2023-05-30] MEDS: DOCUSATE SODIUM 100 MG CAPSULE PO (08:32)
[2023-05-30] MEDS: humaLOG MIX 75/25 3ML FLEXPEN 15 UNIT SQ (08:33)
[2023-05-30] MEDS: predniSONE 20MG TAB 20 MG PO (08:41)
[2023-05-30] MEDS: OXYCODONE 7.5MG W/APAP 325MG TABLET 1 EACH PO (08:41)
[2023-05-30] MEDS: VANCOMYCIN HCL 50MG/ML 150ML KIT 125 MG PO ×2 (08:41→13:37)
[2023-05-30] MEDS: MAGNESIUM OXIDE 400MG TABLET 400 MG PO (08:42)
[2023-05-30 08:44] LABS: Basophils # 0.1 K/mm3 (0-0.2); Basophils % 0.7 % (0.1-2.0); Eosinophils % 0.2 % (0.1-12.0); Hematocrit 36.8 % (37.0-47.0); Hemoglobin 11.3 g/dL (12.2-16.2); Lymphocytes # 1.5 K/mm3 (0.7-4.5); Lymphocytes % 18.3 % (10-50); Mean Corpuscular HGB Conc 30.8 g/dL (31.8-35.4); Mean Corpuscular Hemoglobin 28.3 pg (27.0-31.2); Mean Corpuscular Volume 91.9 fl (81-99); Monocytes # 0.6 K/mm3 (0.1-1.0); Monocytes % 6.7 % (1.7-9.3); Platelet Count 249 K/mm3 (142-424); Red Cell Distribution Width 15.9 % (11.5-17.5); White Blood Count 8.1 K/mm3 (4.8-10.8)
[2023-05-30 09:00] LABS: Chloride 109 mmol/L (98-107); Sodium 140 mmol/L (136-145)
[2023-05-30 09:01] LABS: Potassium 5.1 mmoL/L (3.5-5.1)
[2023-05-30 09:03] LABS: Alanine Aminotransferase 166 U/L (12-78); Alkaline Phosphatase 130 U/L (38-126); Anion Gap 5.1 mEq/L (5-15); Aspartate Amino Transferase 335 U/L (14-36); Bilirubin,Total 0.6 mg/dl (0.2-1.3); Blood Urea Nitrogen 51 mg/dl (7-17); Carbon Dioxide 31 mmol/L (22.0-30.0); Creatinine Clearance Estimated 41 mL/min (50-200); Estimated Glomerular Filt Rate 38 ml/min (>60); GFR (African American) 46 ML/MIN (>60); Globulin 2.9 g/dL (1.3-3.2); Total Protein,Serum 5.9 g/dl (6.3-8.2)
[2023-05-30 09:04] LABS: Calcium 8.3 mg/dl (8.4-10.2); Glucose 244 mg/dl (74-100)
[2023-05-30 09:23] LABS: Magnesium 2.1 mg/dl (1.6-2.3)
--- NOTE | 2023-05-30 09:59 | HMH.OTEV ---
OT Inpatient Evaluation Rehab OT IP Evaluation Start: 05/28/23 08:43 Freq: ONCE Status: Active Protocol: Document 05/30/23 09:54 GINOOCTAVIO (Rec: 05/30/23 09:59 GINOOCTAVIO [id number]) Rehab OT IP Assessment Subjective History This is a 63-year-old female with a past medical history of atrial fibrillation, diastolic heart failure, COPD on 3 L nasal cannula at baseline, CKD, depression, anxiety, T2DM, hypertension who presents emergency department with complaints of itchiness, cough and diarrhea. She has a multitude of complaints but ultimately patient states that she has had intermittent swelling of her lower extremities with increased orthopnea. States that she has been prescribed water pills in the past but she does not take them every day. She reports chronic cough that is productive, she also reports increased wheezing over the last several days. Emergency department workup notable for COPD exacerbation with diffuse wheezing on exam. Also noted to have an elevated BNP of 1000. Bilateral lower extremity swelling noted. Patchy opacities in the upper lobes of the lungs that might represent chronic infiltrates. Given patient's increased shortness of breath with edema and COPD exacerbation, she will be admitted to hospital service for further evaluation management. Patient lives alone in 1 story home with no steps to enter. Patient reported that she has minimal assistance from family with hx of falling. Patient stated to use AE such as a walker and cane to ambulate. Patient had a recent fall here at [facility] when attempting to maneuver independently. Subjective I fall alot. Instructed patient on safety awareness to maneuver safely with bed mobility, transfers, fx'l mobility and LB drsg. Patient completed all tasks with Min A due to unsteadiness on feet. LOB noted x1 when attempting to complete a turn during mobility task. Able to correct balance with assistance from OT. Left Patient sitting upright in chair with needs met. Objective Patient Orientation Person,Place,Name,Age,Birthday ,Year Right Upper Extremity Gross ROM WFL Left Upper Extremity Gross ROM WFL Bed Mobility bed mobility - supine/sit Assist Level Minimal x 1 (25% assist) Transfer Training Sit/Stand/Pivot Transfer Assist Level Minimal x 1 (25% assist) Chair Transfer Ability Minimal x 1 (25% assist) Chair Transfer Technique Sit to/from Ambulatory Chair Transfer Assistive Devices Rolling Walker Lower Body Dressing Ability Moderate Assistance Rehab OT IP prob,goals,plan Problems Date of Evaluation: 05/30/23 OT IP Problems Bed Mobility,Transfers,Balance ,Self care,Safety Rehab Potential Rehab Potential Good Equipment Needs Assistive Devices Rolling / Wheeled Walker Plan OT intervention Plan Bed Mobility,Transfers,Balance ,Self care,Safety,Therapeutic Exercise OT Plan Frequency Daily Duration LOS Discharge Goals Bed Mobility Ability Standby Assistance Sit to Stand Chair Transfer Ability Contact Guard/Hand Hold Chair Transfer Ability Contact Guard/Hand Hold Chair Transfer Technique Sit to/from Ambulatory Chair Transfer Assistive Devices Rolling Walker Lower Body Dressing Ability Minimal Assistance Discharge Plan OT Discharge Plan Based on patient's performance this morning and unsteadiness on feet, recommend placement for safety reason. Patient reported to OT that she is alone at home with minimal assistance from family and is very alone. Hx of falling at home. Placement will be a safer option vs HH services to prevent further falls and injuries. Patient to continue OT IP services while here at [facility]. Eval Complexity Eval Charge Codes 89918 - Low Complexity PHYSICIAN CERTIFICATION: I certify the specified therapy services for Kassy Bartlett are required, authorized, and reviewed every 30 days.
[2023-05-30] MEDS: NICOTINE 21MG/24HR PATCH 21 MG TD (10:09)
--- NOTE | 2023-05-30 10:19 | EXP.PULM.CON ---
History of Present Illness History of present illness: Ms. Bartlett is a 63-year-old female current smoker greater than 30 PPD carries a diagnosis of COPD at baseline, chronic hypoxic respiratory failure on 3 L at baseline using albuterol on as-needed basis, H/o C. difficile colitis, atrial fibrillation, diastolic heart failure, CKD, depression anxiety type 2 diabetes mellitus and hypertension presented to the ER complaining of cough and diarrhea. She had a multitude of other complaints including lower extremity edema and increased orthopnea as per the notes. [facility] Disclaimer: The information contained in this section may have been updated after the patient was seen, as this information can be updated by other users. Medical History (Updated 05/30/23 @ 11:58 by Raghavendra Granda MD) Abnormality of lung on CXR Pneumonia Acute and chronic respiratory failure with hypoxia Chest pain Abnormal ankle brachial index (DAVE) Pyelonephritis Restless leg syndrome Hepatitis B Depression Anxiety Chronic kidney disease Sleep apnea Migraine History of transient ischemic attack (TIA) History of hip fracture History of gastroesophageal reflux (GERD) Diabetes mellitus, type 2 Hyperlipidemia Congestive heart failure Nonspecific chest pain Hip fracture Failure to thrive Closed femur fracture Instability of left knee joint Left knee pain Vaginal pain Abnormal computed tomography angiography (CTA) of abdomen and pelvis Claudication Decreased pedal pulses Other specified symptoms and signs involving the circulatory and respiratory systems Acquired hammer toes of both feet Chronic deep vein thrombosis (DVT) of right lower extremity Primary osteoarthritis of both feet Overweight (BMI 25.0-29.9) Acute worsening of stage 3 chronic kidney disease Diabetes mellitus with neuropathy Left leg swelling Lymphedema Plantar fasciitis, left Foot pain, left Obesity (BMI 30.0-34.9) C. difficile colitis RAGHAV (acute kidney injury) Sepsis Community acquired pneumonia Osteoarthritis of feet, bilateral Diabetic peripheral neuropathy associated with type 2 diabetes mellitus Onychoincurvatum Hepatitis C Chest pain Normal coronary arteries Foot pain, right COPD (chronic obstructive pulmonary disease) DVT (deep venous thrombosis) Cellulitis of right foot Hep B w/o coma Hep C w/o coma, chronic Endothelial dysfunction of coronary artery Elevated left ventricular end-diastolic pressure (LVEDP) Cauda equina syndrome Lumbar compression fracture ANNIE on CPAP Langerhan's cell histiocytosis SOB (shortness of breath) on exertion Atrial fibrillation HTN (hypertension) PAD (peripheral artery disease) Abdominal pain Diabetes mellitus Renal insufficiency Acute exacerbation of chronic obstructive airways disease Neck Pain Back pain Surgical History History of cholecystectomy History of appendectomy History of hysterectomy History of cardiac cath Family History Other Coronary artery disease Family history of diabetes mellitus type II Family history of hyperlipidemia Family history of hypertension Social History (Updated 05/27/23 @ 20:28 by Kateryna Green RN) Smoking Status: Current every day smoker tobacco type: cigarettes packs per day: 2 second hand exposure: Yes alcohol intake: never counseling provided: none substance use type: denies use current occupational status: retired Travel in the last 8 weeks: None household members: none housing: house lives independently: Yes marital status: education level: middle school current occupational exposures/hazards: No caffeine: Yes special ping needs: No agree to transfusion: No do you feel safe at home: Yes victim of physical abuse: No victim of emotional abuse: No victim of sexual abuse: No would you like helpful sources: No Review of Systems Constitutional Constitutional: Reports body ache(s) and Reports fatigue Eyes Eyes: Denies eye discharge, Denies dry eyes, Denies irritation and Denies itchy eyes ENT Ears, Nose, Mouth, and Throat: Denies epistaxis, Denies facial pain, Denies lip swelling and Denies throat swelling *Cardiovascular Cardiovascular: Reports dyspnea and Reports dyspnea on exertion *Respiratory Respiratory: Reports chest congestion, Reports cough, Reports dyspnea, Reports dyspnea on exertion, Reports excessive phlegm production, Denies hemoptysis, Denies pain on inspiration, Denies pain with cough and Reports wheezing *Gastrointestinal Gastrointestinal: Denies abdominal pain, Denies belching and Denies cramping *Musculoskeletal Musculoskeletal: Reports back pain, Reports myalgias and Reports other (No small joint swelling or Pain) *Neurologic Neurologic: Reports as per HPI Psychiatric Psychiatric: Reports anxiety, Denies homicidal ideation and Denies suicidal ideation Endocrine Endocrine: Reports fatigue and Denies heat intolerance Hematologic/Lymphatic Hematologic/Lymphatic: Denies easy bleeding and Denies lymphadenopathy Allergic/Immunologic Allergic/Immunologic: Denies itchy eyes, Denies lip swelling, Denies throat swelling and Reports wheezing Pulmonology Exam Inpatient Vital signs and Labs for Last 24 Hours: Temp Pulse Resp BP Pulse Ox O2 Del Method O2 Flow Rate 97.8 F 79 17 151/84 H 93 L Room Air 1 05/30/23 07:42 05/30/23 07:42 05/30/23 07:42 05/30/23 07:42 05/30/23 07:42 05/30/23 07:42 05/29/23 06:42 Laboratory Results - last 24 hr 05/28/23 22:43: POC Glucose 241 H 05/29/23 05:28: POC Glucose 188 H 05/29/23 10:57: POC Glucose 139 H 05/29/23 16:19: POC Glucose 372 H* 05/29/23 21:33: POC Glucose 264 H 05/30/23 06:58: POC Glucose 110 05/30/23 08:25: WBC 8.1, RBC 4.00 L, Hgb 11.3 L, Hct 36.8 L, MCV 91.9, MCH 28.3, MCHC 30.8 L, RDW 15.9, Plt Count 249, MPV 8.0, Neut % (Auto) 74.0, Lymph % (Auto) 18.3, Vermillion % (Auto) 6.7, Eos % (Auto) 0.2, Baso % (Auto) 0.7, Neut # (Auto) 6.0, Lymph # (Auto) 1.5, Vermillion # (Auto) 0.6, Eos # (Auto) 0.0, Baso # (Auto) 0.1, Sodium 140, Potassium 5.1, Chloride 109 H, Carbon Dioxide 31 H, Anion Gap 5.1, BUN 51 H, Creatinine 1.40 H, Estimated Creat Clear 41, Estimated GFR 38 L, Est GFR ( Amer) 46 L, Glucose 244 H, Calcium 8.3 L, Magnesium 2.1 D, Total Bilirubin 0.6, AST 335 H* D, ALT 166 H D, Alkaline Phosphatase 130 H, Total Protein 5.9 L, Albumin 3.0 L D, Globulin 2.9, Albumin/Globulin Ratio 1.0 L I & O for Labs for Last 24 Hours: Intake & Output 05/27/23 05/28/23 05/29/23 05/30/23 23:59 23:59 23:59 23:59 Intake Total 610 / 850 1450 / 1690 600 / 600 Output Total 0 / 0 600 / 600 2000 / 1999 0 / 0 Balance 0 / 120 10 / 250 -550 / -310 600 / 600 Weight 131 lb 6.4 oz 131 lb 6.4 oz 136 lb 12.8 oz 136 lb 12.784 oz Constitutional: Present moderate distress Head: Present normocephalic and atraumatic ENT: Present normal exam, normal oropharynx and mucous membranes moist Neck: Present normal inspection and full ROM Respiratory: Present prolonged expiratory phase, respiratory distress, wheezes, diminished air movement and able to speak in complete sentences Cardiac: Present S1/S2, Tachycardia and radial pulses present GI: Present soft and distention; Absent tenderness or guarding Rectal (female): Present deferred (female): Present deferred Skin: Present intact; Absent cyanosis or jaundice Neuro: Present alert, awake and oriented x 3 Extremities: Present normal inspection; Absent clubbing or cyanosis Psychiatric: Present normal affect and cooperative Meds Home Medications and Allergies Home Medications Medication Instructions Recorded Confirmed Type albuterol sulfate 90 mcg/actuation 2 puff inhalation Q4HP PRN 09/06/22 05/27/23 History aerosol inhaler Breathing Problems apixaban 5 mg tablet (Eliquis) 5 mg PO BID Blood Thinner 09/06/22 05/27/23 History topiramate 50 mg tablet 50 mg PO BID Migraine #180 tabs 11/29/22 05/27/23 Rx metformin 500 mg tablet 1,000 mg (2 x 500 mg) PO BID 02/17/23 05/27/23 Rx Diabetes 90 days #360 tabs pantoprazole 40 mg tablet,delayed 40 mg PO DAILY Acid Reflux #90 tabs 03/25/23 05/27/23 Rx release buspirone 5 mg tablet 10 mg (2 x 5 mg) PO BID 30 days 03/31/23 05/27/23 Rx #60 tabs gabapentin 300 mg capsule 300 mg PO TID #90 caps 03/31/23 05/27/23 Rx atorvastatin 10 mg tablet 10 mg PO HS 05/28/23 05/28/23 History dapagliflozin propanediol 10 mg 10 mg PO DAILY 05/28/23 05/28/23 History tablet (Farxiga) famotidine 20 mg tablet 20 mg PO BID 05/28/23 05/28/23 History isosorbide mononitrate 30 mg 30 mg PO DAILY 05/28/23 05/28/23 History tablet,extended release 24 hr oxycodone-acetaminophen 7.5 mg-325 1 tab PO QIDP PRN Moderate Pain 05/28/23 05/28/23 History mg tablet (Scale Score 5-6) sertraline 100 mg tablet 150 mg PO DAILY 05/28/23 05/28/23 History doxycycline hyclate 100 mg tablet 100 mg PO Q12H 2 days #4 tabs 05/30/23 Rx fluticasone fur. 100 mcg-umeclid 1 inh inhalation DAILY 30 days #1 05/30/23 Rx 62.5 mcg-vilant 25 mcg ea inhalat.powder (Trelegy Ellipta) insulin human U-100 NPH-regulr 14 unit (0.14 mL) SQ BID 30 days 05/30/23 Rx 70-30 mix 100 unit/mL subcutaneous #8.4 mL susp (Humulin 70/30 U-100 Insulin) magnesium oxide 400 mg (241.3 mg 400 mg PO DAILY 30 days #30 tabs 05/30/23 Rx magnesium) tablet metoprolol tartrate 25 mg tablet 12.5 mg (1/2 x 25 mg) PO BID 30 05/30/23 Rx days #30 tabs nicotine 21 mg/24 hr daily 21 mg transdermal DAILY 28 days 05/30/23 Rx transdermal patch #28 ea prednisone 20 mg tablet 20 mg PO DAILY 2 days #2 tabs 05/30/23 Rx quetiapine 25 mg tablet 50 mg (2 x 25 mg) PO HS 30 days 05/30/23 Rx #60 tabs vancomycin 50 mg/mL oral solution 125 mg (2.5 mL) PO QID 7 days #70 05/30/23 Rx (Firvanq) mL New Prescriptions to Start Prescriptions: doxycycline hyclate Sherman Chang [id number] [Trelegy Ellipta] Sherman Chang insulin NPH and regular human [Humulin 70/30 U-100 Insulin] Sherman Chang magnesium oxide Charlene,Sherman metoprolol tartrate Charlene,Sherman nicotine Charlene,Sherman prednisone Charlene,Sherman quetiapine Sherman Chang Allergies Allergy/AdvReac Type Severity Reaction Status Date / Time methocarbamol Allergy Severe Altered Verified 05/02/23 17:33 mental status terbutaline [TERBUTALINE] Allergy Severe SWELLS Verified 05/02/23 17:33 THROAT aspirin [ASPIRIN] Allergy Intermediate I-RASH Verified 05/02/23 17:33 codeine [CODEINE] Allergy Intermediate Swelling Verified 05/02/23 17:33 of the Eye diphenhydramine Allergy Intermediate Hives Verified 05/02/23 17:33 [From Benadryl] Sulfa (Sulfonamide Allergy Intermediate Hives Verified 05/02/23 17:33 Antibiotics) [SULFA (SULFONAMIDE ANTIBIOTICS)] sulfamethoxazole Allergy Intermediate Hives Verified 05/02/23 17:33 [From Bactrim] trimethoprim [From Bactrim] Allergy Intermediate Hives Verified 05/02/23 17:33 naproxen [NAPROXEN] Allergy Mild itching Verified 05/02/23 17:33 tramadol [TRAMADOL] Allergy Mild Vomiting Verified 05/02/23 17:33 citalopram [CITALOPRAM] Allergy Unknown SKIN PEEL Verified 05/02/23 17:33 erythromycin base Allergy Unknown I-RASH Verified 05/02/23 17:33 [ERYTHROMYCIN BASE] Penicillins [PENICILLINS] Allergy Unknown I-RASH Verified 05/02/23 17:33 bupropion [BUPROPION] AdvReac Severe Hallucinati Verified 05/02/23 17:33 ng duloxetine [DULOXETINE] AdvReac Severe Hallucinati Verified 05/02/23 17:33 ng pregabalin [PREGABALIN] AdvReac Severe Hallucinati Verified 05/02/23 17:33 ng celecoxib [From CELEBREX] AdvReac Mild Vomiting Verified 05/02/23 17:33 Results Laboratory Findings 05/30/23 08:25 05/30/23 08:25 Abnormal lab findings: Abnormal Labs 05/27/23 05/27/23 05/27/23 15:17 15:50 15:54 WBC 11.1 H RBC Hgb Hct MCHC 31.4 L Vermillion % (Auto) Neut # (Auto) Verm[place] # (Auto) VBG pO2 44.4 H VBG Total CO2 28.4 H VBG O2 Saturation 81.4 H Chloride Carbon Dioxide Anion Gap BUN Creatinine Estimated GFR Est GFR ( Amer) Glucose POC Glucose Hemoglobin A1c Calcium Magnesium AST ALT Alkaline Phosphatase NT-Pro-B Natriuret Pep Total Protein Albumin Albumin/Globulin Ratio LDL Cholesterol Direct HDL Cholesterol Urine Bilirubin 2+ A 05/27/23 05/27/23 05/28/23 16:22 23:30 02:10 WBC RBC Hgb Hct MCHC Verm[place] % (Auto) Neut # (Auto) [place] # (Auto) VBG pO2 VBG Total CO2 VBG O2 Saturation Chloride Carbon Dioxide 32 H Anion Gap BUN 27 H Creatinine Estimated GFR Est GFR ( Amer) Glucose 166 H POC Glucose 450 H* 409 H* Hemoglobin A1c Calcium Magnesium AST 48 H ALT Alkaline Phosphatase NT-Pro-B Natriuret Pep 1130 H Total Protein 5.9 L Albumin 2.9 L Albumin/Globulin Ratio 1.0 L LDL Cholesterol Direct HDL Cholesterol Urine Bilirubin 05/28/23 05/28/23 05/28/23 05:14 06:55 12:04 WBC 11.9 H RBC Hgb 12.0 L D Hct MCHC 30.9 L Vermillion % (Auto) 10.4 H Neut # (Auto) 7.9 H Vermillion # (Auto) 1.2 H VBG pO2 VBG Total CO2 VBG O2 Saturation Chloride Carbon Dioxide 33 H Anion Gap BUN 38 H D Creatinine 1.50 H D Estimated GFR 35 L Est GFR ( Amer) 43 L D Glucose 149 H POC Glucose 198 H 147 H Hemoglobin A1c 8.7 H Calcium 8.2 L Magnesium AST ALT Alkaline Phosphatase NT-Pro-B Natriuret Pep Total Protein Albumin Albumin/Globulin Ratio LDL Cholesterol Direct 68.89 L HDL Cholesterol 78 H Urine Bilirubin 05/28/23 05/28/23 05/29/23 16:24 22:43 05:28 WBC RBC Hgb Hct MCHC [place] % (Auto) Neut # (Auto) [place] # (Auto) VBG pO2 VBG Total CO2 VBG O2 Saturation Chloride Carbon Dioxide Anion Gap BUN Creatinine Estimated GFR Est GFR ( Amer) Glucose POC Glucose 425 H* 241 H 188 H Hemoglobin A1c Calcium Magnesium AST ALT Alkaline Phosphatase NT-Pro-B Natriuret Pep Total Protein Albumin Albumin/Globulin Ratio LDL Cholesterol Direct HDL Cholesterol Urine Bilirubin 05/29/23 05/29/23 05/29/23 06:45 10:57 16:19 WBC RBC 3.81 L Hgb 10.8 L Hct 35.4 L MCHC 30.5 L [place] % (Auto) Neut # (Auto) [place] # (Auto) VBG pO2 VBG Total CO2 VBG O2 Saturation Chloride 110 H Carbon Dioxide 31 H Anion Gap 4.5 L BUN 46 H Creatinine 1.50 H Estimated GFR 35 L Est GFR ( Amer) 43 L Glucose 175 H POC Glucose 139 H 372 H* Hemoglobin A1c Calcium 7.3 L Magnesium 1.4 L AST 133 H D ALT Alkaline Phosphatase NT-Pro-B Natriuret Pep Total Protein 5.3 L Albumin 2.6 L Albumin/Globulin Ratio 1.0 L LDL Cholesterol Direct HDL Cholesterol Urine Bilirubin 05/29/23 05/30/23 21:33 08:25 WBC RBC 4.00 L Hgb 11.3 L Hct 36.8 L MCHC 30.8 L [place] % (Auto) Neut # (Auto) [place] # (Auto) VBG pO2 VBG Total CO2 VBG O2 Saturation Chloride 109 H Carbon Dioxide 31 H Anion Gap BUN 51 H Creatinine 1.40 H Estimated GFR 38 L Est GFR ( Amer) 46 L Glucose 244 H POC Glucose 264 H Hemoglobin A1c Calcium 8.3 L Magnesium AST 335 H* D ALT 166 H D Alkaline Phosphatase 130 H NT-Pro-B Natriuret Pep Total Protein 5.9 L Albumin 3.0 L D Albumin/Globulin Ratio 1.0 L LDL Cholesterol Direct HDL Cholesterol Urine Bilirubin Assessment and Plan *Assessment and plan (1) Acute exacerbation of chronic obstructive pulmonary disease: Status: Acute Category: Medical Code(s): J44.1 - Chronic obstructive pulmonary disease with (acute) exacerbation (2) Acute and chronic respiratory failure with hypoxia: Status: Acute Category: Medical Code(s): J96.21 - Acute and chronic respiratory failure with hypoxia (3) Pneumonia: Status: Acute Category: Medical Code(s): J18.9 - Pneumonia, unspecified organism (4) Abnormality of lung on CXR: Status: Acute Category: Medical Code(s): R91.8 - Other nonspecific abnormal finding of lung field Plan Ms. Bartlett is a 63-year-old female current smoker greater than 30 PPD carries a diagnosis of COPD at baseline, chronic hypoxic respiratory failure on 3 L at baseline using albuterol on as-needed basis, H/o C. difficile colitis, atrial fibrillation, diastolic heart failure, CKD, depression anxiety type 2 diabetes mellitus and hypertension presented to the ER complaining of cough and diarrhea. She had a multitude of other complaints including lower extremity edema and increased orthopnea as per the notes. Upon presentation patient does not appear to be needing any more oxygen supplementation, sats at normal limits with her home baseline 3 L nasal cannula supplementation. Chest x-ray upon admission bilateral upper lobe interstitial prominence/patchy airspace disease. Thesemnupper lobe changes appear worsening/some of them are new from her prior CT from July 2021. CT chest without contrast from January 2021 reviewed, bilateral centrilobular emphysematous changes, upper lobe subpleural interstitial changes along with nodular opacities. Evidence of pulmonary hypertension also noted with dilated pulmonary artery. Neutrophilic leukocytosis upon admission improving. VBG upon admission did not show any evidence of hypoxic/hypercarbic respiratory failure. COVID-19 and flu PCR panel negative. Patient admission was initiated on prednisone and doxycycline for community-acquired pneumonia/COPD exacerbation. She is also receiving vancomycin for possible seeding given her prior history of diarrhea upon presentation. On initial exam. On initial examination patient appeared to be in moderate respiratory distress. Significant wheezing noted on auscultation. On room air saturating 91% at rest. Plan: Initiate Trelegy 100 inhaler, will monitor for any possible side effects. Continue DuoNebs every 6 hours on as-needed basis Change antibiotics to levofloxacin to complete a total of 5-day course. Obtain sputum cultures prior to discharge. Continue prednisone to complete a total of 5-day course For the noted abnormal chest x-ray will follow the patient as an outpatient basis with a repeat CT chest without contrast to further determine the need for bronchoscopy/subsequent follow-up imaging
--- NOTE | 2023-05-30 10:46 | SW/DCPLANNER ---
Addendum entered by Sharla Somers 05/30/23 12:23: Per Sidra fleming/ [facility] Health services will start tomorrow 05/31/23 for this patient. Addendum entered by Sharla Somers 05/30/23 11:08: Sidra fleming/ [facility] stated that rolling walker will be delivered to patient. Original Note: I spoke w/ this patient regarding plans once medically stable for discharge. PT/OT evaluated patient and recommended home w/ home health services. Patient stated that she has used [facility] in the past and would prefer to use this agency again. Patient information/order will be faxed to [facility] today. Patient also stated that she will need a rolling walker at discharge and would prefer to receive this from [facility]: patient information/order will also be faxed today. Patient is expected to discharge home this afternoon.
[2023-05-30] MEDS: humaLOG 100 UNITS/ML 3ML VIAL (SSI) SQ (11:59)
[2023-05-30 12:00] VITALS: BP 148/76; PULSE 73; RESP 18; TEMP 36.7; O2SAT 96
[2023-05-30 12:03] LABS: POC Glucose,Bedside 235 (70-110)
[2023-05-30 13:15] VITALS: PULSE 71; PULSE 76
[2023-05-30] MEDS: levoFLOXacin 750 MG TABLET PO (13:36)
--- NOTE | 2023-05-30 15:03 | SW/DCPLANNER ---
I have arranged [facility] [employer] for this patient. Confirmation #[id number].
--- NOTE | 2023-05-30 15:06 | HMH.PHAINT1 ---
Pharmacy Intervention Comments: DISCHARGE MEDICATION COUNSELING WAS PROVIDED TO PATIENT ON ALL NEW MEDICATIONS AND CHANGES FOR INDICATION, DOSE, AND POSSIBLE SIDE EFFECTS. PATIENT VERBALIZED UNDERSTANDING
--- NOTE | 2023-05-30 20:58 | CA_ITS ---
APPROVED REPORT EXAM: Comprehensive 2D, Doppler, and color-flow Echocardiogram Fur Ironer: Cynthia Chen CRT Ht: 5 ft 4 in Wt: 131lbs BSA: 1.63 BP: 162/83 mmHg Indications: Congestive Heart Failure, COPD, Shortness of Breath, Atrial Fibrillation, Diabetes, Hyperlipidemia, Hypertension/HDD, ef 60-70%, hep b &c, home o2 2D Dimensions LA Volume 44.30 mL LA Volume Index 26.50 mL/m2 (M/F) 16-34 M-Mode Dimensions RVDd 3.20 cm (0.9-2.6) LA Diam 4.00 cm (1.9-4.0) LVDd 3.79 cm (3.5-5.7) LVDs 2.46 cm (3.5-5.7) IVSd 0.81 cm (0.6-1.1) PWd 0.78 cm (0.6-1.1) EF (Teich) 65.30% FS 35.10% EDV (Teich) 61.60 mL TAPSE 2.02 (<1.7) ESV (Teich) 21.40 mL LV Diastology E Decel Time 197 (160-240 msec) E/A Ratio 1.65 MED A' 6.00 cm/s LAT A' 6.20 cm/s Aortic Valve AO Peak GR. 3.50 mmHg Mitral Valve MV A Velocity 78.0 (40-130 cm/s) E/A Ratio 1.65 Pulmonary Valve PV Peak Velocity 95.0 (50-150 cm/s) Tricuspid Valve TR P. Velocity 272.00 cm/s RAP Estimate 10.00 mmHg RVSP 39.70 mmHg Left Ventricle The left ventricle is normal size. The left ventricular systolic function is normal. The left ventricular ejection fraction is within the normal range. There is normal left ventricular wall thickness. There is normal LV segmental wall motion. The left ventricular diastolic function is normal. LVEF is 55%. Right Ventricle The right ventricle is mildly dilated. The right ventricular systolic function is mildly reduced. Atria The left atrium size is normal. The right atrium size is normal. There is no Doppler evidence of interatrial shunt. Aortic Valve The aortic valve is mildly thickened. There is no aortic valvular stenosis. Trace aortic regurgitation is present. Mitral Valve The mitral valve is normal in structure. No evidence of mitral valve stenosis. Trace mitral regurgitation. Tricuspid Valve The tricuspid valve leaflets are thin and pliable. Trace tricuspid regurgitation. There is insufficient TR jet to estimate RVSP. Pulmonic Valve The pulmonary valve is normal in structure. Trace pulmonic regurgitation. Great Vessels The aortic root is normal in size. Ascending aorta is not well-visualized. The IVC is not well-visualized. Pericardium There is no pericardial effusion. An epicardial fat pad is noted. Other Information Study Quality: Fair Conclusion Normal LV systolic function. The right ventricle is mildly dilated with mildly reduced RV function. No significant valvular stenosis or regurgitation. Electronically signed by : Diane Jay MD 06/01/2023 12:21:44
[2023-05-31 12:34] LABS: Clostridium Difficile A/B, PCR Detected (NotDetected)
--- NOTE | 2023-05-31 13:05 | PC.NURSE ---
Lab called with notification from diarrhea panel. Pt was admitted 05/27-05/29. Forwarded to hospitalist notification
--- NOTE | 2023-06-01 11:08 | CARE MANAGER ---
Attempted to contact patient x2 related to hospital discharge. No VM option. CODI Jenkins
== END 2023-05-30 14:03 | disposition home health service (06) | DRG 190 ==
LOC: ER 17:52 → 2ND 19:55
PROVIDERS: Nurse Practitioner Acute Care; Admitting Provider Internal Medicine Adolescent Medicine; Emergency Provider Emergency Medicine; PCP Internal Medicine; Visit Provider Internal Medicine Adolescent Medicine
DX: J44.1 Chronic obstructive pulmonary disease with (acute) exacerbation (principal); I50.33 Acute on chronic diastolic (congestive) heart failure; J96.10 Chronic respiratory failure, unspecified whether with hypoxia or hypercapnia; F41.9 Anxiety disorder, unspecified; F32.A Depression, unspecified; Z99.81 Dependence on supplemental oxygen; Z79.4 Long term (current) use of insulin; E11.42 Type 2 diabetes mellitus with diabetic polyneuropathy; Z86.73 Personal history of transient ischemic attack (TIA), and cerebral infarction without residual deficits; E11.51 Type 2 diabetes mellitus with diabetic peripheral angiopathy without gangrene; F17.210 Nicotine dependence, cigarettes, uncomplicated; G89.29 Other chronic pain; R19.7 Diarrhea, unspecified; E11.22 Type 2 diabetes mellitus with diabetic chronic kidney disease; E78.5 Hyperlipidemia, unspecified; Z86.718 Personal history of other venous thrombosis and embolism
CPT/HCPCS: 36415; 70450; 71046; 72170; 73070; 74176; 80048; 80053; 80061; 81001; 82803; 82962; 83036; 83735; 83880; 84145; 84484; 85025; 87507; 87636; 93005; 93306; 94640; 94761; 97162; 97165; 97530; 97535; 99285; G0378; J2405; J3475

== ENCOUNTER 2023-06-09 13:36 | Outpatient (CLI) | payer MEDICARE, MEDICAID, SELFPAY ==
[2023-06-09 18:55] LABS: Alanine Aminotransferase 54 U/L (12-78); Albumin Level 2.7 g/dl (3.5-5.0); Albumin/Globulin Ratio 0.9 (1.1-1.8); Alkaline Phosphatase 119 U/L (38-126); Anion Gap 7.6 mEq/L (5-15); Aspartate Amino Transferase 56 U/L (14-36); Bilirubin,Total 0.4 mg/dl (0.2-1.3); Blood Urea Nitrogen 42 mg/dl (7-17); Calcium 9.2 mg/dl (8.4-10.2); Carbon Dioxide 26 mmol/L (22.0-30.0); Chloride 112 mmol/L (98-107); Estimated Glomerular Filt Rate 56 ml/min (>60); GFR (African American) 68 ML/MIN (>60); Glucose 213 mg/dl (74-100); Potassium 5.6 mmoL/L (3.5-5.1); Sodium 140 mmol/L (136-145); Total Protein,Serum 5.7 g/dl (6.3-8.2)
== END 2023-06-09 23:59 | disposition home or self-care (01) ==
LOC: LAB.DROPOF 06-10 13:36
PROVIDERS: PCP Internal Medicine; Visit Provider Internal Medicine
DX: I50.33 Acute on chronic diastolic (congestive) heart failure (principal); Z79.899 Other long term (current) drug therapy
CPT/HCPCS: 80053

== ENCOUNTER 2023-06-13 22:02 | Inpatient (IN) | payer MEDICARE, MEDICAID, SELFPAY ==
[2023-06-13 22:02] VITALS: BP 152/110; PULSE 73; RESP 28; TEMP 36.9; O2SAT 98; BMI 27.9
[2023-06-13 22:03] VITALS: BMI 27.9
--- NOTE | 2023-06-13 22:03 | XR_ITS ---
PROCEDURE INFORMATION: Exam: XR Chest Exam date and time: 06/13/2023 10:08 PM Age: 63 years old Clinical indication: Shortness of breath; Additional info: SOA TECHNIQUE: Imaging protocol: Radiologic exam of the chest. Views: 1 view. COMPARISON: CR XR CHEST 2V 05/27/2023 4:14 PM FINDINGS: Lungs: Diffuse predominantly interstitial infiltrates throughout both lungs. Relatively low lung volumes with bilateral lower lobe opacity favored to represent atelectasis, although acute infiltrate not excluded. No acute infiltrate evident mid to upper lungs. Pleural spaces: Unremarkable. No pleural effusion. No pneumothorax. Heart/Mediastinum: Unremarkable. No cardiomegaly. Bones/joints: Mild degenerative changes throughout the spine. No acute fracture. IMPRESSION: Increased bilateral lower lung opacity favored to represent atelectasis given relatively low lung volumes on the current study. Cannot exclude mild acute pneumonia. Significant diffuse chronic interstitial infiltrates also noted
--- NOTE | 2023-06-13 22:04 | ECG_ITS ---
APPROVED REPORT Exam: Resting ECG HR:75 bpm ECG Measurements Heart Rate 75 AXES QRSd 72 QRS 31 QT 365 T 57 QTc 394 Conclusion Sinus rhythm ABNORMAL RHYTHM ECG UNCONFIRMED REPORT Artifact, repeat EKG ordered Electronically signed by : DORIS CARROLL, 06/14/2023 00:32:36
[2023-06-13 22:06] VITALS: BP 190/97; PULSE 75; O2SAT 98
--- NOTE | 2023-06-13 22:09 | ECG_ITS ---
APPROVED REPORT Exam: Resting ECG HR:71 bpm ECG Measurements Heart Rate 71 AXES WA 155 P 48 QRSd 72 QRS 22 QT 382 T 37 QTc 405 Conclusion SINUS RHYTHM NORMAL ECG UNCONFIRMED REPORT Electronically signed by : DORIS CARROLL, 06/14/2023 00:32:48
[2023-06-13] MEDS: METHYLPREDNISOLONE SOD SUCC 125MG VIAL 125 MG IV (22:10)
[2023-06-13] MEDS: FUROSEMIDE 40MG/4ML VIAL 40 MG IV (22:11)
[2023-06-13 22:12] LABS: Basophils # 0.1 K/mm3 (0-0.2); Basophils % 1.1 % (0.1-2.0); Eosinophils # 0.2 K/mm3 (0.0-0.4); Eosinophils % 1.9 % (0.1-12.0); Hematocrit 43.7 % (37.0-47.0); Hemoglobin 13.2 g/dL (12.2-16.2); Lymphocytes # 3.6 K/mm3 (0.7-4.5); Lymphocytes % 29.2 % (10-50); Mean Corpuscular HGB Conc 30.2 g/dL (31.8-35.4); Mean Corpuscular Hemoglobin 28.8 pg (27.0-31.2); Mean Corpuscular Volume 95.2 fl (81-99); Mean Platelet Volume 7.8 fl (7.4-10.4); Monocytes # 0.8 K/mm3 (0.1-1.0); Monocytes % 6.1 % (1.7-9.3); Neutrophils # 7.5 K/mm3 (1.8-7.8); Neutrophils % 61.7 % (37.0-80.0); Platelet Count 304 K/mm3 (142-424); Red Blood Count 4.59 M/mm3 (4.20-5.40); Red Cell Distribution Width 16.3 % (11.5-17.5); White Blood Count 12.2 K/mm3 (4.8-10.8)
[2023-06-13 22:19] LABS: Chloride 111 mmol/L (98-107); Potassium 4.9 mmoL/L (3.5-5.1); Sodium 142 mmol/L (136-145)
[2023-06-13 22:21] LABS: Blood Urea Nitrogen 25 mg/dl (7-17)
[2023-06-13 22:22] LABS: Alanine Aminotransferase 54 U/L (12-78); Albumin Level 3.6 g/dl (3.5-5.0); Albumin/Globulin Ratio 0.9 (1.1-1.8); Alkaline Phosphatase 130 U/L (38-126); Anion Gap 8.9 mEq/L (5-15); Aspartate Amino Transferase 78 U/L (14-36); Bilirubin,Total 0.7 mg/dl (0.2-1.3); Calcium 9.3 mg/dl (8.4-10.2); Carbon Dioxide 27 mmol/L (22.0-30.0); Creatinine Clearance Estimated 68 mL/min (50-200); Estimated Glomerular Filt Rate 56 ml/min (>60); GFR (African American) 68 ML/MIN (>60); Globulin 3.8 g/dL (1.3-3.2); Glucose 174 mg/dl (74-100); Total Protein,Serum 7.4 g/dl (6.3-8.2)
[2023-06-13] MEDS: IPRATROPIUM/ALBUTEROL 3 ML NEB 9 ML IH (22:23)
[2023-06-13 22:25] LABS: Lactate Venous 2.5 mmol/L (0.4-2.0); VBG Base Excess -4.3 mmol/L (-2.4-2.3); VBG HCO3 22.4 mmol/L (23-30); VBG Oxygen Saturation 51.9 % (50-70); VBG PCO2 47.9 mmol/L (35-51); VBG PH 7.29 mmol/L (7.31-7.41); VBG PO2 27.8 mmol/L (28-40); VBG Total CO2 23.8 mmol/L (23-27)
[2023-06-13 22:28] VITALS: RESP 18; RESP 25
[2023-06-13 22:30] VITALS: BP 152/110; PULSE 74; RESP 26; O2SAT 99
[2023-06-13 22:32] LABS: NT Pro Brain Natriuretic Pep. 2360 pg/mL (0-125)
[2023-06-13 22:34] LABS: Troponin I < 0.01 ng/ml (0.00-0.034)
--- NOTE | 2023-06-13 22:39 | ED_ITS ---
Discharge Plan Disposition Patient Disposition: Admitted Condition: Fair Chief Complaint: Shortness of Breath/Dyspnea Clinical Impressions Clinical Impression: Acute exacerbation of chronic obstructive pulmonary disease, Acute exacerbation of CHF (congestive heart failure), Shortness of breath, Bilateral edema of lower extremity Discharge ED Provider: Maurice Ramos HPI General Chief Complaint: Shortness of Breath/Dyspnea Stated Complaint: soa, chf Time Seen by Provider: 06/13/23 22:02 Mode of Arrival: EMS Source of Information: Patient and EMS Limitations: No Limitations Description of Symptoms (Recalled from ER Triage Doc. by RN): Pt came in for SOA and CP that started a few days ago and got worse this morning. pt cant speak in full sentences and has +3 BLE History of Present Illness HPI narrative: 63-year-old female with past medical history significant for CHF, COPD on 3 L of oxygen at home, CKD, TIA, GERD, DM2, HLD, history of DVT, HTN, presents today for evaluation concerning respiratory distress. Patient states that she has been short of breath over the past couple days however worsened tonight prior to arrival. EMS states that when they found patient she was 70% on 2 L of oxygen at home. EMS states today auscultated crackles. They gave nitro en route to ED. Patient denies having any chest pain, fevers or chills. She has had a cough but has been unable to cough up sputum. Denies any nausea or vomiting. Related Data Home Medications Medication Instructions Recorded Confirmed albuterol sulfate 90 mcg/actuation 2 puff inhalation Q4HP PRN 09/06/22 06/09/23 aerosol inhaler Breathing Problems apixaban 5 mg tablet (Eliquis) 5 mg PO BID Blood Thinner 09/06/22 06/09/23 atorvastatin 10 mg tablet 10 mg PO HS 05/28/23 06/09/23 dapagliflozin propanediol 10 mg 10 mg PO DAILY 05/28/23 06/09/23 tablet (Farxiga) isosorbide mononitrate 30 mg 30 mg PO DAILY 05/28/23 06/09/23 tablet,extended release 24 hr sertraline 100 mg tablet 150 mg PO DAILY 05/28/23 06/09/23 Previous Rx's Medication Instructions Recorded topiramate 50 mg tablet 50 mg PO BID Migraine #180 tabs 11/29/22 metformin 500 mg tablet 1,000 mg (2 x 500 mg) PO BID 02/17/23 Diabetes 90 days #360 tabs pantoprazole 40 mg tablet,delayed 40 mg PO DAILY Acid Reflux #90 tabs 03/25/23 release buspirone 5 mg tablet 10 mg (2 x 5 mg) PO BID 30 days 03/31/23 #60 tabs fluticasone fur. 100 mcg-umeclid 1 inh inhalation DAILY 30 days #1 05/30/23 62.5 mcg-vilant 25 mcg ea inhalat.powder (Trelegy Ellipta) insulin human U-100 NPH-regulr 14 unit (0.14 mL) SQ BID 30 days 05/30/23 70-30 mix 100 unit/mL subcutaneous #8.4 mL susp (Humulin 70/30 U-100 Insulin) levofloxacin 750 mg tablet 750 mg PO Q48H 4 days #2 tabs 05/30/23 magnesium oxide 400 mg (241.3 mg 400 mg PO DAILY 30 days #30 tabs 05/30/23 magnesium) tablet metoprolol tartrate 25 mg tablet 12.5 mg (1/2 x 25 mg) PO BID 30 05/30/23 days #30 tabs nicotine 21 mg/24 hr daily 21 mg transdermal DAILY 28 days 05/30/23 transdermal patch #28 ea prednisone 20 mg tablet 20 mg PO DAILY 2 days #2 tabs 05/30/23 quetiapine 25 mg tablet 50 mg (2 x 25 mg) PO HS 30 days 05/30/23 #60 tabs vancomycin 50 mg/mL oral solution 125 mg (2.5 mL) PO QID 7 days #70 05/30/23 (Firvanq) mL gabapentin 300 mg capsule 300 mg PO TID #90 caps 06/09/23 insulin glargine 100 unit/mL (3 9 unit (0.09 mL) SQ BID #15 mL 06/09/23 mL) subcutaneous pen oxycodone-acetaminophen 7.5 mg-325 1 tab PO QIDP PRN Moderate Pain 06/09/23 mg tablet (Scale Score 5-6) #120 tabs famotidine 20 mg tablet See Rx Instructions .Route 06/13/23 .COMPLEX #120 tabs Allergies Allergy/AdvReac Type Severity Reaction Status Date / Time methocarbamol Allergy Severe Altered Verified 06/09/23 13:53 mental status terbutaline [TERBUTALINE] Allergy Severe SWELLS Verified 06/09/23 13:53 THROAT aspirin [ASPIRIN] Allergy Intermediate I-RASH Verified 06/09/23 13:53 codeine [CODEINE] Allergy Intermediate Swelling Verified 06/09/23 13:53 of the Eye diphenhydramine Allergy Intermediate Hives Verified 06/09/23 13:53 [From Benadryl] Sulfa (Sulfonamide Allergy Intermediate Hives Verified 06/09/23 13:53 Antibiotics) [SULFA (SULFONAMIDE ANTIBIOTICS)] sulfamethoxazole Allergy Intermediate Hives Verified 06/09/23 13:53 [From Bactrim] trimethoprim [From Bactrim] Allergy Intermediate Hives Verified 06/09/23 13:53 naproxen [NAPROXEN] Allergy Mild itching Verified 06/09/23 13:53 tramadol [TRAMADOL] Allergy Mild Vomiting Verified 06/09/23 13:53 citalopram [CITALOPRAM] Allergy Unknown SKIN PEEL Verified 06/09/23 13:53 erythromycin base Allergy Unknown I-RASH Verified 06/09/23 13:53 [ERYTHROMYCIN BASE] Penicillins [PENICILLINS] Allergy Unknown I-RASH Verified 06/09/23 13:53 bupropion [BUPROPION] AdvReac Severe Hallucinati Verified 06/09/23 13:53 ng duloxetine [DULOXETINE] AdvReac Severe Hallucinati Verified 06/09/23 13:53 ng pregabalin [PREGABALIN] AdvReac Severe Hallucinati Verified 06/09/23 13:53 ng celecoxib [From CELEBREX] AdvReac Mild Vomiting Verified 06/09/23 13:53 PFSH PFS Disclaimer: The information contained in this section may have been updated after the patient was seen, as this information can be updated by other users. Medical History Suicidal ideation Depression with suicidal ideation Abnormality of lung on CXR Pneumonia Acute and chronic respiratory failure with hypoxia Chest pain Abnormal ankle brachial index (DAVE) Pyelonephritis Restless leg syndrome Hepatitis B Depression Anxiety Chronic kidney disease Sleep apnea Migraine History of transient ischemic attack (TIA) History of hip fracture History of gastroesophageal reflux (GERD) Diabetes mellitus, type 2 Hyperlipidemia Congestive heart failure Nonspecific chest pain Hip fracture Failure to thrive Closed femur fracture Instability of left knee joint Left knee pain Vaginal pain Abnormal computed tomography angiography (CTA) of abdomen and pelvis Claudication Decreased pedal pulses Other specified symptoms and signs involving the circulatory and respiratory systems Acquired hammer toes of both feet Chronic deep vein thrombosis (DVT) of right lower extremity Primary osteoarthritis of both feet Overweight (BMI 25.0-29.9) Acute worsening of stage 3 chronic kidney disease Diabetes mellitus with neuropathy Left leg swelling Lymphedema Plantar fasciitis, left Foot pain, left Obesity (BMI 30.0-34.9) C. difficile colitis RAGHAV (acute kidney injury) Sepsis Community acquired pneumonia Osteoarthritis of feet, bilateral Diabetic peripheral neuropathy associated with type 2 diabetes mellitus Onychoincurvatum Hepatitis C Chest pain Normal coronary arteries Foot pain, right COPD (chronic obstructive pulmonary disease) DVT (deep venous thrombosis) Cellulitis of right foot Hep B w/o coma Hep C w/o coma, chronic Endothelial dysfunction of coronary artery Elevated left ventricular end-diastolic pressure (LVEDP) Cauda equina syndrome Lumbar compression fracture ANNIE on CPAP Langerhan's cell histiocytosis SOB (shortness of breath) on exertion Atrial fibrillation HTN (hypertension) PAD (peripheral artery disease) Abdominal pain Diabetes mellitus Renal insufficiency Acute exacerbation of chronic obstructive airways disease Neck Pain Back pain Surgical History History of cholecystectomy History of appendectomy History of hysterectomy History of cardiac cath Family History Other Coronary artery disease Family history of diabetes mellitus type II Family history of hyperlipidemia Family history of hypertension Social History Smoking Status: Current every day smoker tobacco type: cigarettes packs per day: 2 second hand exposure: Yes alcohol intake: never counseling provided: none substance use type: denies use current occupational status: retired Travel in the last 8 weeks: None household members: none housing: house lives independently: Yes marital status: education level: middle school current occupational exposures/hazards: No caffeine: Yes special ping needs: No agree to transfusion: No do you feel safe at home: Yes victim of physical abuse: No victim of emotional abuse: No victim of sexual abuse: No would you like helpful sources: No ROS Obtained: Yes All systems reviewed & no additional complaints except as documented Physical Exam General General appearance: alert and in distress (In respiratory distress) Head Head exam: atraumatic and normocephalic Eye Eye exam: Present normal appearance, PERRL and EOMI ENT ENT exam: Present normal oropharynx and mucous membranes moist Neck Neck exam: Present full ROM; Absent meningismus Respiratory Respiratory exam: Present respiratory distress, wheezes and other (Patient with diffuse expiratory wheezing. Mild crackles auscultated. Decreased air movement throughout.); Absent stridor or accessory muscle use Cardiovascular Cardiovascular exam: Present regular rate and normal rhythm Abdominal Exam Abdominal exam: Present soft; Absent distention, tenderness, guarding, rebound or rigidity Extremities Exam Extremities exam: Present edema (2+ pitting edema in bilateral lower extremities) Neurological Exam Neurological exam: Present alert, oriented X3 and CN II-XII intact; Absent motor sensory deficit Psychiatric Psychiatric exam: Present normal affect and normal mood Skin Skin exam: Present warm and dry HEART Score HEART Score HEART Score assessment performed?: Yes History (anamnesis): Moderately suspicious ECG: Normal Age: 45-65 years Risk factors: 3 or more risk factors Troponin: </= normal limit HEART Score: 4 Procedures Limited Ultrasound Indication:: Right calf pain Findings:: No DVT Interpretation:: No DVT identified. Compressible veins. Critical Care Critical Care Time Critical Care Time: Yes Attestation: On 06/13/23, the high probability of a clinically significant, sudden or life threatening deterioration of the following system(s): Respiratory required my full and direct attention, intervention and personal management. The time I documented below is in addition to time spent performing reported procedures but includes the following listed in this critical care notation. Total Time Total Critical Care Time: 35 Medical Decision Making Jordin Inquiry Pt receiving controlled substance: No Vital Signs Vital Signs: 06/13/23 22:02 06/13/23 22:06 06/13/23 22:30 Temperature 98.5 F Temperature Source Axillary Pulse Rate 75 74 Pulse Rate [Right Radial] 73 Respiratory Rate 28 H 26 H Blood Pressure 190/97 H 152/110 H Blood Pressure [Right Arm] 152/110 H Blood Pressure Mean [Right Arm] 124 02 Sat by Pulse Oximetry 98 98 99 Oxygen Delivery Method BiPAP 06/13/23 23:37 Temperature Temperature Source Pulse Rate 77 Pulse Rate [Right Radial] Respiratory Rate 25 H Blood Pressure 130/68 Blood Pressure [Right Arm] Blood Pressure Mean [Right Arm] 02 Sat by Pulse Oximetry 100 Oxygen Delivery Method Lab Data Labs: Lab Results 06/13/23 22:00: WBC 12.2 H, RBC 4.59, Hgb 13.2, Hct 43.7, MCV 95.2, MCH 28.8, M CHC 30.2 L, RDW 16.3, Plt Count 304, MPV 7.8, Neut % (Auto) 61.7, Lymph % (Auto) 29.2, [place] % (Auto) 6.1, Eos % (Auto) 1.9, Baso % (Auto) 1.1, Neut # (Auto) 7.5, Lymph # (Auto) 3.6, [place] # (Auto) 0.8, Eos # (Auto) 0.2, Baso # (Auto) 0.1, Sodium 142, Potassium 4.9, Chloride 111 H, Carbon Dioxide 27, Anion Gap 8.9, BUN 25 H, Creatinine 1.00, Estimated Creat Clear 68, Estimated GFR 56 L, Est GFR ( Amer) 68, Glucose 174 H, Calcium 9.3, Total Bilirubin 0.7, AST 78 H, ALT 54, Alkaline Phosphatase 130 H, Troponin I < 0.01, NT-Pro-B Natriuret Pep 2360 H, Total Protein 7.4 D, Albumin 3.6, Globulin 3.8 H, Albumin/Globulin Ratio 0.9 L 06/13/23 22:06: VBG pH 7.29 L, VBG pCO2 47.9, VBG pO2 27.8 L, VBG HCO3 22.4 L, VBG Total CO2 23.8, VBG O2 Saturation 51.9, VBG Base Excess -4.3 L, VBG Lactic Acid 2.5 H 06/13/23 22:27: Urine Color Yellow, Urine Appearance Clear, Urine pH 5.5, Ur Specific Sinclair 1.025, Urine Protein 2+, Urine Glucose (UA) Negative, Urine Ketones Negative, Urine Blood 1+, Urine Nitrate Negative, Urine Bilirubin Negative, Urine Urobilinogen 0.2, Ur Leukocyte Esterase Negative, Urine RBC Occasional, Urine WBC None, Ur Squamous Epith Cells None, Urine Bacteria None 06/13/23 23:26: VBG pH 7.42 H, VBG pCO2 33.8 L, VBG pO2 33.4, VBG HCO3 21.3 L, V BG Total CO2 22.4 L, VBG O2 Saturation 69.6, VBG Base Excess -3.2 L, VBG Lactic Acid 4.5 H 06/13/23 22:00 06/13/23 22:00 Response Orders (Tests/Meds): ED MEDICATIONS Generic Name Dose Route Start Last Admin Trade Name Lauren PRN Reason Stop Dose Admin Budesonide 0.5 mg 06/14/23 06:00 Budesonide 0.5mg/2ml Critical [facility] hospital 07/14/23 05:59 BIDRT CHRISTOPHER Bumetanide 1 mg 06/14/23 09:00 Bumetanide 1mg/4ml Vial IV 07/14/23 08:59 BIDL CHRISTOPHER Doxycycline Hyclate 100 mg/ 250 mls @ 166.667 mls/hr 06/13/23 23:30 06/13/23 23:44 Sodium Chloride IV 06/23/23 23:29 166.667 mls/hr Q12H CHRISTOPHER Administration Ipratropium [place] 0.5 mg 06/14/23 00:00 Ipratropium [place] 0.5 Mg/2.5ml Solution 07/14/23 00:00 Q6RT CHRISTOPHER Levalbuterol HCl 1.25 mg 06/14/23 00:00 Levalbuterol 1.25mg/3ml Neb 07/14/23 00:00 Q6RT CHRISTOPHER Nicotine 21 mg 06/13/23 23:58 Nicotine 21mg/24hr Patch TD 07/13/23 23:57 DAILYP PRN Nicotine Cravings Discontinued Medications Generic Name Dose Route Start Last Admin Trade Name Lauren PRN Reason Stop Dose Admin Albuterol/Ipratropium 9 ml 06/13/23 22:03 06/13/23 22:23 Ipratropium/Albuterol 3 Ml Critical access hospital 06/13/23 22:04 9 ml ONCE ONE Administration Furosemide 40 mg 06/13/23 22:07 06/13/23 22:11 Furosemide 40mg/4ml Vial IV 06/13/23 22:08 40 mg ONCE ONE Administration Methylprednisolone Sodium Succinate 125 mg 06/13/23 22:07 06/13/23 22:10 Methylprednisolone Sod Succ 125mg Vial IV 06/13/23 22:08 125 mg ONCE ONE Administration ORDERS Category Date Time Status XR chest portable Stat Exams 06/13/23 22:03 Completed BNP [NT Pro Brain Natriuretic Pep.] Stat Lab 06/13/23 22:00 Completed Complete Blood Count Auto Diff AMLAB Lab 06/14/23 06:00 Ordered Complete Blood Count Auto Diff Stat Lab 06/13/23 22:00 Completed Comprehensive Metabolic Panel AMLAB Lab 06/14/23 06:00 Ordered Comprehensive Metabolic Panel Stat Lab 06/13/23 22:00 Completed Magnesium AMLAB Lab 06/14/23 06:00 Ordered Troponin I Q3H Lab 06/14/23 01:15 Ordered Troponin I Q3H Lab 06/14/23 04:15 Ordered Troponin I Stat Lab 06/13/23 22:00 Completed Urinalysis and Microscopic Stat Lab 06/13/23 22:27 Completed VBG [Venous Blood Gas] Stat RT 06/13/23 22:06 Completed VBG [Venous Blood Gas] Stat RT 06/13/23 23:26 Completed ECG Data Tracing #1: Attestation: I reviewed this ECG and interpreted as documented below: ECG Narrative: EKG personally interpreted by me. Normal sinus rhythm with a rate of 71 bpm. No ischemic changes. QTc of 405. MDM Narrative Medical Decision Narrative: 63-year-old female with past medical history significant for CHF, COPD on 3 L of oxygen at home, CKD, TIA, GERD, DM2, HLD, history of DVT, HTN, presents today for evaluation concerning respiratory distress. Patient states that she has been short of breath over the past couple days however worsened tonight prior to arrival. EMS states that when they found patient she was 70% on 2 L of oxygen at home. EMS states today auscultated crackles. They gave nitro en route to ED. Patient denies having any chest pain, fevers or chills. She has had a cough but has been unable to cough up sputum. On assessment, she was in respiratory distress with accessory muscle usage. Decreased air movement throughout. Diffuse expiratory wheezing throughout. Mild crackles auscultated. 2+ pitting edema in bilateral lower extremities. Abdomen soft nondistended nontender palpation. I did use bedside ultrasound and noted B-lines which is consistent with pulmonary edema. Differential diagnoses include not limited to CHF exacerbation, COPD exacerbation, STEMI, NSTEMI, pleural effusion, pneumonia, among others. Did consider pulmonary embolism however patient's diagnosis clinically fits with CHF exacerbation given her pulmonary edema noted on chest x-ray on my informal interpretation, B-lines noted on bedside ultrasound, lower extremity edema. Her EKG did not show any ischemic changes. WBC elevated at 12.2. Initial VBG with pH of 7.29. pCO2 not elevated at 47.9. Lactic acid on VBG of 2.5. AST 78, alkaline phosphatase 130. Initial troponin less than 0.01. BNP elevated at 2360. No signs of UTI on urinalysis. On reassessment patient is on BiPAP with some improvement in her work of breathing. Mentating appropriately. I discussed her ED workup as well as current plan to admit for further management in the setting of her CHF/COPD exacerbations. She verbalized understanding and agreement. I did speak consult with hospital medicine and discussed management and hospital medicine has agreed to evaluate and admit. They did recommend trial without BiPAP and repeat VBG which I have ordered. Patient with improved work of breathing currently on 4 L nasal cannula with appropriate oxygen saturation. Repeat VBG with pH of 7.42, pCO2 of 33, bicarb of 21.3. Lactate is increasing at 4.5. As patient appears fluid overloaded, did not want to give IV fluids at this time. Of note, she did complain of R calf pain and I did a bedside ultrasound to assess for DVT and no DVT was noted with compressible veins. She was subsequently admitted to hospital medicine for further management.
--- NOTE | 2023-06-13 22:42 | PC.NURSE ---
First set of cultures collected and given to Kelsey from the lab
[2023-06-13 22:47] LABS: Microscopic, Urine URINE MICROSCOPIC (MICROSCOPIC)
[2023-06-13 22:48] LABS: Appearance,Urine CLEAR (Clear); Bilirubin,Urine Negative (Negative); Blood, Urine 1+ (Negative); Color,Urine YELLOW (Yellow); Glucose,Urine (UA) Negative (Negative); Ketones,Urine Negative (Negative); Leukocyte Esterase,Urine Negative (Negative); Nitrate,Urine Negative (Negative); PH,Urine 5.5 (5.0-8.5); Protein,Urine 2+ (Negative); Specific Gravity, Urine 1.025 (1.005-1.030); Urobilinogen,Urine 0.2 EU/dl (0.2)
--- NOTE | 2023-06-13 22:55 | PC.NURSE ---
Rounded on patient no complaints or needs at this time
[2023-06-13 23:06] LABS: RBC,Urine Occasional #/hpf (0-3)
--- NOTE | 2023-06-13 23:35 | EXP.HP ---
History of Present Illness *Admission Date: 06/13/23 *Reason for visit:: short of breath *History of present illness: Ms. Bartlett is a 63-year-old female with a past medical history of atrial fibrillation, diastolic heart failure, COPD on 3 L nasal cannula at baseline, CKD, depression, anxiety, T2DM, hypertension who presents emergency department with complaints of shortness of breath weakness. She has been having more shortness of breath for the past 2 to 3 days. Has noticed increased swelling in her legs and pain. [place] some chest tightness. Was brought to the ER after a friend came to check on her and expressed concern. She denies any fever, nausea, vomiting, diarrhea. No syncope or loss of consciousness. Reports compliance with her medications however is hesitant to admit that she smokes and has a complicated medication regimen that I have concern she is not adhering to completely. On arrival to the ER, was found to be hypoxic. Given her work of breathing, ER placed her on BiPAP. O2 sats were appropriate and she did not have hypercarbia. Chest imaging concerning for pulmonary edema with bilateral reticular pattern. Given her increased swelling in her legs, elevated BNP above 2000, ER initiated diuresis. Discussed case with medicine for admission. I requested they transition to nasal cannula oxygen as she was not in hypercarbic failure. Arrived to the floor on 4 L nasal cannula with appropriate saturations. Patient was recently admitted 2 weeks ago, appears chronically ill and is at her baseline mentation on arrival to the floor. Persistent wheeze throughout bilateral lungs. Mildly tachypneic in the low 20s. Appears severely anxious and nervous. Does have worsening swelling in her legs and crackles bilaterally on lung exam. [facility] Disclaimer: The information contained in this section may have been updated after the patient was seen, as this information can be updated by other users. Medical History Suicidal ideation Depression with suicidal ideation Abnormality of lung on CXR Pneumonia Acute and chronic respiratory failure with hypoxia Chest pain Abnormal ankle brachial index (DAVE) Pyelonephritis Restless leg syndrome Hepatitis B Depression Anxiety Chronic kidney disease Sleep apnea Migraine History of transient ischemic attack (TIA) History of hip fracture History of gastroesophageal reflux (GERD) Diabetes mellitus, type 2 Hyperlipidemia Congestive heart failure Nonspecific chest pain Hip fracture Failure to thrive Closed femur fracture Instability of left knee joint Left knee pain Vaginal pain Abnormal computed tomography angiography (CTA) of abdomen and pelvis Claudication Decreased pedal pulses Other specified symptoms and signs involving the circulatory and respiratory systems Acquired hammer toes of both feet Chronic deep vein thrombosis (DVT) of right lower extremity Primary osteoarthritis of both feet Overweight (BMI 25.0-29.9) Acute worsening of stage 3 chronic kidney disease Diabetes mellitus with neuropathy Left leg swelling Lymphedema Plantar fasciitis, left Foot pain, left Obesity (BMI 30.0-34.9) C. difficile colitis RAGHAV (acute kidney injury) Sepsis Community acquired pneumonia Osteoarthritis of feet, bilateral Diabetic peripheral neuropathy associated with type 2 diabetes mellitus Onychoincurvatum Hepatitis C Chest pain Normal coronary arteries Foot pain, right COPD (chronic obstructive pulmonary disease) DVT (deep venous thrombosis) Cellulitis of right foot Hep B w/o coma Hep C w/o coma, chronic Endothelial dysfunction of coronary artery Elevated left ventricular end-diastolic pressure (LVEDP) Cauda equina syndrome Lumbar compression fracture ANNIE on CPAP Langerhan's cell histiocytosis SOB (shortness of breath) on exertion Atrial fibrillation HTN (hypertension) PAD (peripheral artery disease) Abdominal pain Diabetes mellitus Renal insufficiency Acute exacerbation of chronic obstructive airways disease Neck Pain Back pain Surgical History History of cholecystectomy History of appendectomy History of hysterectomy History of cardiac cath Family History Other Coronary artery disease Family history of diabetes mellitus type II Family history of hyperlipidemia Family history of hypertension Social History Smoking Status: Current every day smoker tobacco type: cigarettes packs per day: 2 second hand exposure: Yes alcohol intake: never counseling provided: none substance use type: denies use current occupational status: retired Travel in the last 8 weeks: None household members: none housing: house lives independently: Yes marital status: education level: middle school current occupational exposures/hazards: No caffeine: Yes special ping needs: No agree to transfusion: No do you feel safe at home: Yes victim of physical abuse: No victim of emotional abuse: No victim of sexual abuse: No would you like helpful sources: No Review of Systems Review of Systems Review of systems (narrative): 14 point review of systems performed, pertinent positives and negatives as per HPI Meds Home Medications and Allergies Home Medications Medication Instructions Recorded Confirmed Type albuterol sulfate 90 mcg/actuation 2 puff inhalation Q4HP PRN 09/06/22 06/14/23 History aerosol inhaler Breathing Problems apixaban 5 mg tablet (Eliquis) 5 mg PO BID Blood Thinner 09/06/22 06/14/23 History topiramate 50 mg tablet 50 mg PO BID Migraine #180 tabs 11/29/22 06/14/23 Rx metformin 500 mg tablet 1,000 mg (2 x 500 mg) PO BID 02/17/23 06/14/23 Rx Diabetes 90 days #360 tabs pantoprazole 40 mg tablet,delayed 40 mg PO DAILY Acid Reflux #90 tabs 03/25/23 06/14/23 Rx release buspirone 5 mg tablet 10 mg (2 x 5 mg) PO BID 30 days 03/31/23 06/14/23 Rx #60 tabs atorvastatin 10 mg tablet 10 mg PO HS 05/28/23 06/14/23 History dapagliflozin propanediol 10 mg 10 mg PO DAILY 05/28/23 06/14/23 History tablet (Farxiga) isosorbide mononitrate 30 mg 30 mg PO DAILY 05/28/23 06/14/23 History tablet,extended release 24 hr sertraline 100 mg tablet 150 mg PO DAILY 05/28/23 06/14/23 History fluticasone fur. 100 mcg-umeclid 1 inh inhalation DAILY 30 days #1 05/30/23 06/14/23 Rx 62.5 mcg-vilant 25 mcg ea inhalat.powder (Trelegy Ellipta) magnesium oxide 400 mg (241.3 mg 400 mg PO DAILY 30 days #30 tabs 05/30/23 06/14/23 Rx magnesium) tablet metoprolol tartrate 25 mg tablet 12.5 mg (1/2 x 25 mg) PO BID 30 05/30/23 06/14/23 Rx days #30 tabs quetiapine 25 mg tablet 50 mg (2 x 25 mg) PO HS 30 days 05/30/23 06/14/23 Rx #60 tabs gabapentin 300 mg capsule 300 mg PO TID #90 caps 06/09/23 06/14/23 Rx insulin glargine 100 unit/mL (3 9 unit (0.09 mL) SQ BID #15 mL 06/09/23 06/14/23 Rx mL) subcutaneous pen oxycodone-acetaminophen 7.5 mg-325 1 tab PO QIDP PRN Moderate Pain 06/09/23 06/14/23 Rx mg tablet (Scale Score 5-6) #120 tabs famotidine 20 mg tablet See Rx Instructions .Route 06/13/23 06/14/23 Rx .COMPLEX #120 tabs New Prescriptions to Start Prescriptions: Allergies Allergy/AdvReac Type Severity Reaction Status Date / Time methocarbamol Allergy Severe Altered Verified 06/09/23 13:53 mental status terbutaline [TERBUTALINE] Allergy Severe SWELLS Verified 06/09/23 13:53 THROAT aspirin [ASPIRIN] Allergy Intermediate I-RASH Verified 06/09/23 13:53 codeine [CODEINE] Allergy Intermediate Swelling Verified 06/09/23 13:53 of the Eye diphenhydramine Allergy Intermediate Hives Verified 06/09/23 13:53 [From Benadryl] Sulfa (Sulfonamide Allergy Intermediate Hives Verified 06/09/23 13:53 Antibiotics) [SULFA (SULFONAMIDE ANTIBIOTICS)] sulfamethoxazole Allergy Intermediate Hives Verified 06/09/23 13:53 [From Bactrim] trimethoprim [From Bactrim] Allergy Intermediate Hives Verified 06/09/23 13:53 naproxen [NAPROXEN] Allergy Mild itching Verified 06/09/23 13:53 tramadol [TRAMADOL] Allergy Mild Vomiting Verified 06/09/23 13:53 citalopram [CITALOPRAM] Allergy Unknown SKIN PEEL Verified 06/09/23 13:53 erythromycin base Allergy Unknown I-RASH Verified 06/09/23 13:53 [ERYTHROMYCIN BASE] Penicillins [PENICILLINS] Allergy Unknown I-RASH Verified 06/09/23 13:53 bupropion [BUPROPION] AdvReac Severe Hallucinati Verified 06/09/23 13:53 ng duloxetine [DULOXETINE] AdvReac Severe Hallucinati Verified 06/09/23 13:53 ng pregabalin [PREGABALIN] AdvReac Severe Hallucinati Verified 06/09/23 13:53 ng celecoxib [From CELEBREX] AdvReac Mild Vomiting Verified 06/09/23 13:53 Exam Data for Last 24 hours Vital signs and Labs for Last 24 Hours: Temp Pulse Resp BP Pulse Ox O2 Del Method FiO2 98.5 F 73 28 H 152/110 H 98 BiPAP 40 06/13/23 22:02 06/13/23 22:02 06/13/23 22:02 06/13/23 22:02 06/13/23 22:02 06/13/23 22:02 06/13/23 22:28 Laboratory Results - last 24 hr 06/13/23 22:00: WBC 12.2 H, RBC 4.59, Hgb 13.2, Hct 43.7, MCV 95.2, MCH 28.8, MCHC 30.2 L, RDW 16.3, Plt Count 304, MPV 7.8, Neut % (Auto) 61.7, Lymph % (Auto) 29.2, [place] % (Auto) 6.1, Eos % (Auto) 1.9, Baso % (Auto) 1.1, Neut # (Auto) 7.5, Lymph # (Auto) 3.6, [place] # (Auto) 0.8, Eos # (Auto) 0.2, Baso # (Auto) 0.1, Sodium 142, Potassium 4.9, Chloride 111 H, Carbon Dioxide 27, Anion Gap 8.9, BUN 25 H, Creatinine 1.00, Estimated Creat Clear 68, Estimated GFR 56 L, Est GFR ( Amer) 68, Glucose 174 H, Calcium 9.3, Total Bilirubin 0.7, AST 78 H, ALT 54, Alkaline Phosphatase 130 H, Troponin I < 0.01, NT-Pro-B Natriuret Pep 2360 H, Total Protein 7.4 D, Albumin 3.6, Globulin 3.8 H, Albumin/Globulin Ratio 0.9 L 06/13/23 22:06: VBG pH 7.29 L, VBG pCO2 47.9, VBG pO2 27.8 L, VBG HCO3 22.4 L, VBG Total CO2 23.8, VBG O2 Saturation 51.9, VBG Base Excess -4.3 L, VBG Lactic Acid 2.5 H 06/13/23 22:27: Urine Color Yellow, Urine Appearance Clear, Urine pH 5.5, Ur Specific [place] 1.025, Urine Protein 2+, Urine Glucose (UA) Negative, Urine Ketones Negative, Urine Blood 1+, Urine Nitrate Negative, Urine Bilirubin Negative, Urine Urobilinogen 0.2, Ur Leukocyte Esterase Negative, Urine RBC Occasional, Urine WBC None, Ur Squamous Epith Cells None, Urine Bacteria None I & O for Last 24 hours: Intake & Output 06/10/23 06/11/23 06/12/23 06/13/23 23:59 23:59 23:59 23:59 Weight 73.936 kg Constitutional Constitutional: mild distress, average body habitus, chronically ill appearing and cooperative *Routine HEENT Exam Head: Present normocephalic and atraumatic Eye: Present EOMI and PERRL ENT: Present mucous membranes moist *Routine Neck Exam Neck: Present supple and full ROM *Routine Respiratory Exam Respiratory: Present accessory muscle use, rhonchi, wheezes, crackles and diminished air movement *Routine Cardiovascular Exam Cardiovascular: Present RRR, Normal S1 and Normal S2 *Routine Abdominal Exam Abdominal: Present soft and normoactive bowel sounds *Routine Rectal Exam Rectal:: deferred *Routine Genitalia Exam Genitalia:: deferred *Routine Extremities Exam Extremities: Present cyanosis, full ROM, pulses intact and normal capillary refill *Routine Skin Exam Skin: Present scars, wounds, rash and ecchymosis Comments: There is scattered scabs noted throughout extremities. Patient reports that she picks at her scabs. *Routine Neurological Exam Neurological: Present alert, oriented X3, CN II-XII intact and moving all extremities; Absent altered mental status Routine Psychiatric Exam Psychiatric: Present anxious Assessment and Plan *Assessment and plan (1) Acute and chronic respiratory failure with hypoxia: Status: Acute Category: Medical Code(s): J96.21 - Acute and chronic respiratory failure with hypoxia (2) Acute on chronic diastolic (congestive) heart failure: Status: Acute Category: Medical Code(s): I50.33 - Acute on chronic diastolic (congestive) heart failure (3) Chronic respiratory failure: Status: Acute Category: Medical Code(s): J96.10 - Chronic respiratory failure, unspecified whether with hypoxia or hypercapnia (4) Acute exacerbation of chronic obstructive pulmonary disease: Status: Acute Category: Medical Code(s): J44.1 - Chronic obstructive pulmonary disease with (acute) exacerbation (5) Anxiety and depression: Status: Acute Category: Medical Code(s): F41.9 - Anxiety disorder, unspecified; F32.A - Depression, unspecified (6) Tobacco use: Status: Acute Category: Social Hx Code(s): Z72.0 - Tobacco use (7) Type 2 diabetes mellitus with hyperglycemia: Status: Chronic Qualifiers: Diabetes mellitus superintendent container terminal insulin use: without superintendent container terminal use Qualified Code(s): E11.65 - Type 2 diabetes mellitus with hyperglycemia Category: Medical Code(s): E11.65 - Type 2 diabetes mellitus with hyperglycemia (8) HTN (hypertension): Status: Chronic Qualifiers: Hypertension type: essential hypertension Qualified Code(s): I10 - Essential (primary) hypertension Category: Medical Code(s): I10 - Essential (primary) hypertension Plan Ms. Bartlett is a 63-year-old female with chronic hypoxemic respiratory failure, chronic anticoagulation, poorly controlled diabetes, chronic pain, anxiety. Presented with shortness of breath and increased swelling in legs. Concern for acute on chronic hypoxemic respiratory failure due to CHF exacerbation and COPD exacerbation. Patient continues to smoke excessively 1-1/2 to 2 packs a day. Discussed case with ER, request admission for diuresis and further management. Medicine agreed to admit for further management. Initiated on doxycycline. Will continue these antibiotics for now. Pulmonology, cardiology, behavioral health consulted to assist with care. Concerned that patient severe anxiety underlies her readmission. She smokes heavily due to her anxiety which worsens her COPD and is led to her worsening shortness of breath. Will also have PT and OT evaluate her to evaluate for safety going home. Patient is scared about going to a fpc. Currently lives by herself and is reliant on family to grocery shop for her and check on her. She mobilizes with walker and wheelchair. Necessitating inpatient management. Problems addressed as follows: # Acute on chronic chronic respiratory failure with hypoxia # COPD exacerbation #Acute on chronic diastolic congestive heart failure # Nicotine dependence - Goal sats greater 90%. Currently requiring 4 L -Diuresing with Bumex 1 mg twice daily, BNP greater than 2000 on admission -Echo obtained 2 weeks ago, diastolic dysfunction. Preserved EF -Pulmonology and cardiology consulted to optimize care as she has not seen them in the outpatient setting and to decrease risk for readmissions -Continue Xopenex and ipratropium every 6 hours scheduled, budesonide twice daily - Continue metoprolol 12.5 mg twice daily for blood pressure and rate control. - Continue isosorbide mononitrate as daily, Farxiga 10 mg daily, Lipitor 10 mg nightly, Eliquis 5 mg twice daily - Reports smoking 2 packs a day of cigarettes. nicotine patch daily. - White cell count 12.2, blood gas with hypoxia but no hypercarbia. Repeat CBC, CMP, magnesium ordered for the morning. -Comprehensive respiratory panel pending # T2DM A1C 8.7 last admission 2 weeks ago Continue farxiga 10 mg daily; continue metformin 1000mg BID Continue Lantus 9 units twice daily Continue sliding scale # Anxiety and depression: Continue Zoloft, increase to 200 mg daily. Will initiate hydroxyzine 25 mg every 6 hours as needed for anxiety. Continue Seroquel 25 mg nightly to help with sleep and anxiety; behavioral health consulted, continue BuSpar 10 mg twice daily # GERD: Continue home medications with famotidine 20 mg twice daily # Chronic pain: Continue home oxycodone 1 tablet 4 times a day as needed for pain. States compliance with regimen at home DVT PPx on home Eliquis Full code Diabetic diet
[2023-06-13 23:37] VITALS: BP 130/68; PULSE 77; RESP 25; O2SAT 100
--- NOTE | 2023-06-13 23:42 | PC.NURSE ---
green top tube pulled and given to RT for 2nd vbg per MD Ramos
[2023-06-13 23:44] LABS: VBG Base Excess -3.2 mmol/L (-2.4-2.3); VBG HCO3 21.3 mmol/L (23-30); VBG Oxygen Saturation 69.6 % (50-70); VBG PCO2 33.8 mmol/L (35-51); VBG PH 7.42 mmol/L (7.31-7.41); VBG PO2 33.4 mmol/L (28-40); VBG Total CO2 22.4 mmol/L (23-27)
[2023-06-13] MEDS: DOXYCYCLINE HYCLATE 100 MG in 0.9 % SODIUM CHLORIDE 250 ML 166.667000000000002 MG IV (23:44)
[2023-06-13 23:47] LABS: Lactate Venous 4.5 mmol/L (0.4-2.0)
--- NOTE | 2023-06-13 23:47 | PC.NURSE ---
MD Ramos on phone with RT for VBG results at this time
--- NOTE | 2023-06-13 23:50 | PC.NURSE ---
notified house officer of admission
--- NOTE | 2023-06-13 23:53 | CT_ITS ---
PROCEDURE INFORMATION: Exam: CT Chest Without Contrast; Diagnostic Exam date and time: 06/14/2023 12:10 AM Age: 63 years old Clinical indication: Shortness of breath; Additional info: Eval emphysema/fibrosis/edema TECHNIQUE: Imaging protocol: Diagnostic computed tomography of the chest without contrast. Radiation optimization: All CT scans at this facility use at least one of these dose optimization techniques: automated exposure control; mA and/or kV adjustment per patient size (includes targeted exams where dose is matched to clinical indication); or iterative reconstruction. COMPARISON: CT CHEST WO CON 01/19/2021 10:40 AM FINDINGS: Lungs: Diffuse tracheobronchial calcification. Significant changes of emphysema in both lungs, primarily in the upper lobes. Moderate patchy mosaic attenuation pattern has developed throughout both lungs. No savanna pulmonary consolidation. Pleural spaces: Minimal bilateral pleural fluid. No pneumothorax. Mild pleural nodularity and adjacent calcification in the right upper chest appears similar to previous. Heart: Unremarkable. No cardiomegaly. No pericardial effusion. Minimal coronary artery calcifications. Lymph nodes: Unremarkable. No enlarged lymph nodes. Vasculature: Dense atherosclerotic calcification of the aorta. No evidence of aneurysm. Bones/joints: Moderate degenerative disc changes throughout the thoracic spine. No vertebral body compression or acute fracture. Soft tissues: Unremarkable. IMPRESSION: Interval development of mosaic attenuation pattern throughout both lungs and minimal bilateral pleural effusions, raising suspicion for early changes of pulmonary edema. Underlying chronic changes of emphysema as well as chronic osseous and atherosclerotic changes as described. COMMENTS: The presence of pulmonary emphysema on CT is an independent risk factor for lung cancer. In the absence of a history or active diagnosis of lung cancer, it is recommended that this patient with emphysema be evaluated for enrollment in a low dose CT lung cancer screening program.
[2023-06-14] VITALS (11 sets, daily range): BP systolic 113–144; BP diastolic 66–89; PULSE 76–93; RESP 18–28; TEMP 36.6–36.9; O2SAT 94–98; BMI 25.3
--- NOTE | 2023-06-14 00:09 | PC.NURSE ---
called report to renee kilpatrick on 2nd floor and answered all questions
--- NOTE | 2023-06-14 00:12 | PC.NURSE ---
patient to CT
--- NOTE | 2023-06-14 00:24 | PC.NURSE ---
Patient arrived to floor via stretcher from ED at 00:21.
[2023-06-14] MEDS: LEVALBUTEROL 1.25MG/3ML NEB 1.25 MG IH ×3 (01:40→12:45)
[2023-06-14] MEDS: IPRATROPIUM BROMIDE 0.5 MG/2.5ML SOLUTION IH ×3 (01:40→12:46)
[2023-06-14 01:47] LABS: Reflex Lactic Add Lactic Reflex
[2023-06-14] MEDS: OXYCODONE 7.5MG W/APAP 325MG TABLET 1 EACH PO ×4 (02:04→21:07)
[2023-06-14 02:11] LABS: Troponin I < 0.01 ng/ml (0.00-0.034)
[2023-06-14 02:12] LABS: Lactic Acid Follow Up (RFLX 1) 4.2 mmol/L (0.7-2.1)
[2023-06-14 03:48] LABS: Reflex Lactic (2 hrs) Add Lactic Reflex
[2023-06-14 04:40] LABS: Basophils # 0.1 K/mm3 (0-0.2); Basophils % 0.5 % (0.1-2.0); Eosinophils % 0.1 % (0.1-12.0); Hematocrit 35.5 % (37.0-47.0); Lymphocytes # 0.6 K/mm3 (0.7-4.5); Lymphocytes % 4.6 % (10-50); Mean Corpuscular HGB Conc 30.7 g/dL (31.8-35.4); Mean Corpuscular Hemoglobin 28.3 pg (27.0-31.2); Mean Corpuscular Volume 92.2 fl (81-99); Mean Platelet Volume 8.2 fl (7.4-10.4); Monocytes # 0.2 K/mm3 (0.1-1.0); Monocytes % 1.7 % (1.7-9.3); Neutrophils # 12.2 K/mm3 (1.8-7.8); Neutrophils % 93.1 % (37.0-80.0); Platelet Count 270 K/mm3 (142-424); Red Blood Count 3.84 M/mm3 (4.20-5.40); Red Cell Distribution Width 16.3 % (11.5-17.5); White Blood Count 13.1 K/mm3 (4.8-10.8)
[2023-06-14 04:43] LABS: Chloride 110 mmol/L (98-107)
[2023-06-14 04:44] LABS: Potassium 5.1 mmoL/L (3.5-5.1); Sodium 138 mmol/L (136-145)
[2023-06-14 04:46] LABS: Alanine Aminotransferase 60 U/L (12-78); Aspartate Amino Transferase 82 U/L (14-36); Blood Urea Nitrogen 27 mg/dl (7-17); Creatinine Clearance Estimated 49 mL/min (50-200); Estimated Glomerular Filt Rate 38 ml/min (>60); GFR (African American) 46 ML/MIN (>60)
[2023-06-14 04:47] LABS: Albumin Level 2.9 g/dl (3.5-5.0); Albumin/Globulin Ratio 0.9 (1.1-1.8); Alkaline Phosphatase 131 U/L (38-126); Anion Gap 15.1 mEq/L (5-15); Bilirubin,Total 0.5 mg/dl (0.2-1.3); Calcium 8.6 mg/dl (8.4-10.2); Carbon Dioxide 18 mmol/L (22.0-30.0); Globulin 3.1 g/dL (1.3-3.2); Magnesium 1.1 mg/dl (1.6-2.3)
[2023-06-14 04:54] LABS: MANUAL DIFFERENTIAL MANUAL DIFFERENTIAL (MANUAL DIFF)
[2023-06-14 04:57] LABS: Hemoglobin 10.9 g/dL (12.2-16.2)
[2023-06-14 04:58] LABS: Lactic Acid Follow up (RFLX 2) 5.8 mmol/L (0.7-2.1)
[2023-06-14 04:59] LABS: Glucose 407 mg/dl (74-100); Troponin I < 0.01 ng/ml (0.00-0.034)
[2023-06-14 05:03] LABS: Coronavirus 19, PCR Not Detected (NotDetected); Influenza A, PCR Not Detected (NotDetected); Influenza B, PCR Not Detected (NotDetected)
[2023-06-14] MEDS: humaLOG 100 UNITS/ML 3ML VIAL (SSI) SQ ×2 (05:09→11:05)
[2023-06-14 05:28] LABS: POC Glucose,Bedside 428 (70-110)
--- NOTE | 2023-06-14 05:49 | PC.NURSE ---
Since arriving to the floor the patient has had a good night. Has not slept at all but has been able to rest. Patient is very tearful when talking possibly the need for placement in the skilled nursing as she doesnt want to go. Patient has remained with a fong for I&O. Patient was medicated for pain according to JANUSZ and has not complained of it since. No other issues
[2023-06-14] MEDS: BUDESONIDE 0.5MG/2ML NEB 0.5 MG IH (06:13)
[2023-06-14 07:22] LABS: Lymphocytes % 3 % (10-50); Monocytes % 1 % (2-9); Neutrophils % 96 % (42-76); Total Cells Counted 100
[2023-06-14 07:23] LABS: Platelet Estimate Normal; RBC Morphology Normal
--- NOTE | 2023-06-14 07:59 | HMH.PHAINT1 ---
Pharmacy Intervention Comments: HOME MEDICATION LIST VERIFIED USING LIST FROM OUTPATIENT PHARMACY
[2023-06-14] MEDS: SERTRALINE 100MG TABLET 200 MG PO (08:07)
[2023-06-14] MEDS: BUSPIRONE HCL 10 MG TABLET PO ×2 (08:07→20:50)
[2023-06-14] MEDS: METFORMIN 500MG TABLET 1000 MG PO ×2 (08:07→16:57)
[2023-06-14] MEDS: BUMETANIDE 1MG/4ML VIAL 1 MG IV ×2 (08:07→16:57)
[2023-06-14] MEDS: FAMOTIDINE 20MG TABLET 20 MG PO ×2 (08:07→11:05)
[2023-06-14] MEDS: MAGNESIUM OXIDE 400MG TABLET 400 MG PO ×2 (08:08→20:49)
[2023-06-14] MEDS: MAGNESIUM SULFATE IN WATER 2 GM/50 ML PIGGYBACK IV ×2 (08:08→16:56)
[2023-06-14] MEDS: APIXABAN 5MG TABLET 5 MG PO ×2 (08:08→20:50)
[2023-06-14] MEDS: ISOSORBIDE MONO 30MG TAB.ER.24H 30 MG PO (08:08)
[2023-06-14] MEDS: DAPAGLIFLOZIN PROPANEDIOL 10 MG TABLET PO (08:08)
[2023-06-14] MEDS: GABAPENTIN 300MG CAPSULE 300 MG PO ×3 (08:08→20:50)
[2023-06-14] MEDS: METOPROLOL TARTRATE 25MG TABLET 12.5 MG PO ×2 (08:08→20:50)
[2023-06-14] MEDS: INSULIN GLARGINE 100 UNITS/ML 3ML FLEXPEN 9 UNIT SQ ×2 (08:08→16:56)
[2023-06-14] MEDS: NICOTINE 21MG/24HR PATCH 21 MG TD (08:12)
--- NOTE | 2023-06-14 09:28 | SW/DCPLANNER ---
Addendum entered by Sharla Somers 06/17/23 11:19: Patient is currently established / [facility]: patient/information will be faxed at time of discharge to resume home health services. Discharge date is unknown at this time. Addendum entered by Bing Torres RN 06/15/23 15:33: Spoke with patient again this afternoon, she does not want to go to a SNF, she wants to return home with services. Patient also stated that she did not want us to call and talk to daughter about discharge planning. Addendum entered by Bing Torres RN 06/15/23 14:14: [facility] is not able to accept patient at this time. I spoke with patient this morning and she remains unsure of DC plan. I will speak with her again to discuss options. Addendum entered by Sharla Somers 06/14/23 15:14: [facility] is not able to accept patient due to bed availability. I have attempted to contact [facility]/ [facility] no answer at this time VM left. Addendum entered by Bing Torres RN 06/14/23 15:08: Spoke with patient regarding discharge plan. She is agreeable for information to be faxed to [facility] and [facility] as well as previously stated [facility]. She states that she still plans on discussing with her daughter before deciding on definitive plan for discharge. Addendum entered by Sharla Somers 06/14/23 11:07: Patient is agreeable for information to be faxed to [facility] at this time. Patient is waiting to speak w/ daughter to make final decision. Daughter is currently at appointment but will call her back. Original Note: I spoke w/ this patient regarding plans once medically stable for discharge. PT/OT evaluated patient and recommended placement. I spoke w/ patient this AM regarding placement. Patient stated that she would like to have time to speak w/ her daughter this AM prior to making any discharge plans. I did inform patient that I would follow up w/ her again this AM once she has a moment to speak w/ her daughter. Discharge date is unknown at this time.
--- NOTE | 2023-06-14 09:52 | P.CONS_ITS ---
History of Present Illness History of present illness: Ms. Bartlett is a 63-year-old female current smoker greater than 30 PPD, COPD, chronic hypoxic respiratory failure on 3 L oxygen supplementation at baseline recently seen in the hospital multitude of complaints including worsening respiratory distress managed for COPD exacerbation and pneumonia discharged home on levofloxacin Trelegy inhaler and prednisone presented to the ER again complaining of Worsening respiratory distress and pulmonary was called for further evaluation and management [facility] Disclaimer: The information contained in this section may have been updated after the patient was seen, as this information can be updated by other users. Medical History (Updated 06/14/23 @ 11:49 by Raghavendra Granda MD) Chronic respiratory failure with hypoxia COPD mixed type Elevated liver enzymes Paroxysmal atrial fibrillation Acute on chronic heart failure with preserved ejection fraction (HFpEF) Suicidal ideation Depression with suicidal ideation Abnormality of lung on CXR Pneumonia Acute and chronic respiratory failure with hypoxia Chest pain Abnormal ankle brachial index (DAVE) Pyelonephritis Restless leg syndrome Hepatitis B Depression Anxiety Chronic kidney disease Sleep apnea Migraine History of transient ischemic attack (TIA) History of hip fracture History of gastroesophageal reflux (GERD) Diabetes mellitus, type 2 Hyperlipidemia Congestive heart failure Nonspecific chest pain Hip fracture Failure to thrive Closed femur fracture Instability of left knee joint Left knee pain Vaginal pain Abnormal computed tomography angiography (CTA) of abdomen and pelvis Claudication Decreased pedal pulses Other specified symptoms and signs involving the circulatory and respiratory systems Acquired hammer toes of both feet Chronic deep vein thrombosis (DVT) of right lower extremity Primary osteoarthritis of both feet Overweight (BMI 25.0-29.9) Acute worsening of stage 3 chronic kidney disease Diabetes mellitus with neuropathy Left leg swelling Lymphedema Plantar fasciitis, left Foot pain, left Obesity (BMI 30.0-34.9) C. difficile colitis RAGHAV (acute kidney injury) Sepsis Community acquired pneumonia Osteoarthritis of feet, bilateral Diabetic peripheral neuropathy associated with type 2 diabetes mellitus Onychoincurvatum Hepatitis C Chest pain Normal coronary arteries Foot pain, right COPD (chronic obstructive pulmonary disease) DVT (deep venous thrombosis) Cellulitis of right foot Hep B w/o coma Hep C w/o coma, chronic Endothelial dysfunction of coronary artery Elevated left ventricular end-diastolic pressure (LVEDP) Cauda equina syndrome Lumbar compression fracture ANNIE on CPAP Langerhan's cell histiocytosis SOB (shortness of breath) on exertion Atrial fibrillation HTN (hypertension) PAD (peripheral artery disease) Abdominal pain Diabetes mellitus Renal insufficiency Acute exacerbation of chronic obstructive airways disease Neck Pain Back pain Surgical History History of cholecystectomy History of appendectomy History of hysterectomy History of cardiac cath Family History Other Coronary artery disease Family history of diabetes mellitus type II Family history of hyperlipidemia Family history of hypertension Social History Smoking Status: Current every day smoker tobacco type: cigarettes packs per day: 2 second hand exposure: Yes alcohol intake: never counseling provided: none substance use type: denies use current occupational status: retired Travel in the last 8 weeks: None household members: none housing: house lives independently: Yes marital status: education level: middle school current occupational exposures/hazards: No caffeine: Yes special ping needs: No agree to transfusion: No do you feel safe at home: Yes victim of physical abuse: No victim of emotional abuse: No victim of sexual abuse: No would you like helpful sources: No Review of Systems Constitutional Constitutional: Reports anorexia, Reports body ache(s) and Reports fatigue Eyes Eyes: Denies eye discharge, Denies dry eyes, Denies irritation and Denies itchy eyes ENT Ears, Nose, Mouth, and Throat: Denies epistaxis, Denies facial pain, Denies lip swelling and Denies throat swelling *Cardiovascular Cardiovascular: Reports dyspnea and Reports dyspnea on exertion *Respiratory Respiratory: Denies change in phlegm color, Reports chest congestion, Reports cough, Reports dyspnea, Reports dyspnea on exertion, Denies excessive phlegm production, Denies hemoptysis, Denies pain on inspiration, Denies pain with cough and Reports wheezing *Gastrointestinal Gastrointestinal: Denies abdominal pain, Denies belching and Denies cramping *Musculoskeletal Musculoskeletal: Reports back pain, Reports myalgias and Reports other (No small joint swelling or Pain) Psychiatric Psychiatric: Reports anxiety, Denies homicidal ideation and Denies suicidal ideation Endocrine Endocrine: Reports fatigue and Denies heat intolerance Hematologic/Lymphatic Hematologic/Lymphatic: Denies easy bleeding and Denies lymphadenopathy Allergic/Immunologic Allergic/Immunologic: Denies itchy eyes, Denies lip swelling, Denies throat swelling and Reports wheezing Pulmonology Exam Inpatient Vital signs and Labs for Last 24 Hours: Temp Pulse Resp BP Pulse Ox O2 Del Method O2 Flow Rate 98.2 F 90 24 126/68 97 Nasal Cannula 3 06/14/23 07:47 06/14/23 08:00 06/14/23 07:47 06/14/23 07:47 06/14/23 07:47 06/14/23 09:00 06/14/23 07:47 FiO2 40 06/13/23 22:28 Laboratory Results - last 24 hr 06/13/23 22:00: WBC 12.2 H, RBC 4.59, Hgb 13.2, Hct 43.7, MCV 95.2, MCH 28.8, M CHC 30.2 L, RDW 16.3, Plt Count 304, MPV 7.8, Neut % (Auto) 61.7, Lymph % (Auto) 29.2, [place] % (Auto) 6.1, Eos % (Auto) 1.9, Baso % (Auto) 1.1, Neut # (Auto) 7.5, Lymph # (Auto) 3.6, [place] # (Auto) 0.8, Eos # (Auto) 0.2, Baso # (Auto) 0.1, Sodium 142, Potassium 4.9, Chloride 111 H, Carbon Dioxide 27, Anion Gap 8.9, BUN 25 H, Creatinine 1.00, Estimated Creat Clear 68, Estimated GFR 56 L, Est GFR ( Amer) 68, Glucose 174 H, Calcium 9.3, Total Bilirubin 0.7, AST 78 H, ALT 54, Alkaline Phosphatase 130 H, Troponin I < 0.01, NT-Pro-B Natriuret Pep 2360 H, Total Protein 7.4 D, Albumin 3.6, Globulin 3.8 H, Albumin/Globulin Ratio 0.9 L 06/13/23 22:06: VBG pH 7.29 L, VBG pCO2 47.9, VBG pO2 27.8 L, VBG HCO3 22.4 L, VBG Total CO2 23.8, VBG O2 Saturation 51.9, VBG Base Excess -4.3 L, VBG Lactic Acid 2.5 H 06/13/23 22:27: Urine Color Yellow, Urine Appearance Clear, Urine pH 5.5, Ur Specific [place] 1.025, Urine Protein 2+, Urine Glucose (UA) Negative, Urine Ketones Negative, Urine Blood 1+, Urine Nitrate Negative, Urine Bilirubin Negative, Urine Urobilinogen 0.2, Ur Leukocyte Esterase Negative, Urine RBC Occasional, Urine WBC None, Ur Squamous Epith Cells None, Urine Bacteria None 06/13/23 23:26: VBG pH 7.42 H, VBG pCO2 33.8 L, VBG pO2 33.4, VBG HCO3 21.3 L, V BG Total CO2 22.4 L, VBG O2 Saturation 69.6, VBG Base Excess -3.2 L, VBG Lactic Acid 4.5 H 06/14/23 01:40: Lactate 4.2 H, Troponin I < 0.01 06/14/23 01:41: SARS-CoV-2 (PCR) Not detected, Influenza A Untype (PCR) Not detected, Influenza Type B (PCR) Not detected 06/14/23 04:15: WBC 13.1 H, RBC 3.84 L, Hgb 10.9 L D, Hct 35.5 L, MCV 92.2, MCH 28.3, MCHC 30.7 L, RDW 16.3, Plt Count 270, MPV 8.2, Neut % (Auto) 93.1 H, Lymph % (Auto) 4.6 L, [place] % (Auto) 1.7, Eos % (Auto) 0.1, Baso % (Auto) 0.5, Neut # (Auto) 12.2 H, Lymph # (Auto) 0.6 L, [place] # (Auto) 0.2, Eos # (Auto) 0.0, Baso # (Auto) 0.1, Total Counted 100, Neutrophils % (Manual) 96 H, Lymphocytes % (Manual) 3 L, Monocytes % (Manual) 1 L, Platelet Estimate Normal, RBC Morphology Normal, Sodium 138, Potassium 5.1, Chloride 110 H, Carbon Dioxide 18 L, Anion Gap 15.1 H, BUN 27 H, Creatinine 1.40 H D, Estimated Creat Clear 49, Estimated GFR 38 L, Est GFR ( Amer) 46 L D, Glucose 407 H* D, Lactate 5.8 H, Calcium 8.6, Magnesium 1.1 L, Total Bilirubin 0.5, AST 82 H, ALT 60, Alkaline Phosphatase 131 H, Troponin I < 0.01, Total Protein 6.0 L, Albumin 2.9 L D, Globulin 3.1, Albumin/Globulin Ratio 0.9 L 06/14/23 05:04: POC Glucose 428 H* I & O for Labs for Last 24 Hours: Intake & Output 06/11/23 06/12/23 06/13/23 06/14/23 23:59 23:59 23:59 23:59 Intake Total 200 / 200 Output Total 1500 / 1500 Balance -1300 / -1300 Weight 163 lb 148 lb 4.8 oz Constitutional: Present mild distress Head: Present normocephalic and atraumatic ENT: Present normal exam, normal oropharynx and mucous membranes moist Neck: Present normal inspection and full ROM Respiratory: Present prolonged expiratory phase, respiratory distress, wheezes, diminished air movement and able to speak in complete sentences; Absent crackles Cardiac: Present S1/S2, Tachycardia and radial pulses present GI: Present soft and distention; Absent tenderness or guarding Rectal (female): Present deferred (female): Present deferred Skin: Present intact; Absent cyanosis or jaundice Neuro: Present alert, awake and oriented x 3 Extremities: Present normal inspection; Absent clubbing or cyanosis Psychiatric: Present normal affect and cooperative Meds Home Medications and Allergies Home Medications Medication Instructions Recorded Confirmed Type apixaban 5 mg tablet (Eliquis) 5 mg PO BID Blood Thinner 09/06/22 06/14/23 History metformin 500 mg tablet 1,000 mg (2 x 500 mg) PO BID 02/17/23 06/14/23 Rx Diabetes 90 days #360 tabs pantoprazole 40 mg tablet,delayed 40 mg PO DAILY Acid Reflux #90 tabs 03/25/23 06/14/23 Rx release buspirone 5 mg tablet 10 mg (2 x 5 mg) PO BID 30 days 03/31/23 06/14/23 Rx #60 tabs atorvastatin 10 mg tablet 10 mg PO HS 05/28/23 06/14/23 History dapagliflozin propanediol 10 mg 10 mg PO DAILY 05/28/23 06/14/23 History tablet (Farxiga) isosorbide mononitrate 30 mg 30 mg PO DAILY 05/28/23 06/14/23 History tablet,extended release 24 hr sertraline 100 mg tablet 150 mg PO DAILY 05/28/23 06/14/23 History fluticasone fur. 100 mcg-umeclid 1 inh inhalation DAILY 30 days #1 05/30/23 06/14/23 Rx 62.5 mcg-vilant 25 mcg ea inhalat.powder (Trelegy Ellipta) magnesium oxide 400 mg (241.3 mg 400 mg PO DAILY 30 days #30 tabs 05/30/23 06/14/23 Rx magnesium) tablet metoprolol tartrate 25 mg tablet 12.5 mg (1/2 x 25 mg) PO BID 30 05/30/23 06/14/23 Rx days #30 tabs quetiapine 25 mg tablet 50 mg (2 x 25 mg) PO HS 30 days 05/30/23 06/14/23 Rx #60 tabs gabapentin 300 mg capsule 300 mg PO TID #90 caps 06/09/23 06/14/23 Rx insulin glargine 100 unit/mL (3 9 unit (0.09 mL) SQ BID #15 mL 06/09/23 06/14/23 Rx mL) subcutaneous pen oxycodone-acetaminophen 7.5 mg-325 1 tab PO QIDP PRN Moderate Pain 06/09/23 06/14/23 Rx mg tablet (Scale Score 5-6) #120 tabs famotidine 20 mg tablet 20 mg PO BID 06/14/23 06/14/23 History insulin NPH-regular 70-30 U-100 8 unit SQ BIDWMEAL 06/14/23 06/14/23 History insulin 100 unit/mL subcutaneous pen (Humulin 70/30 U-100 KwikPen) New Prescriptions to Start Prescriptions: Allergies Allergy/AdvReac Type Severity Reaction Status Date / Time methocarbamol Allergy Severe Altered Verified 06/09/23 13:53 mental status terbutaline [TERBUTALINE] Allergy Severe SWELLS Verified 06/09/23 13:53 THROAT aspirin [ASPIRIN] Allergy Intermediate I-RASH Verified 06/09/23 13:53 codeine [CODEINE] Allergy Intermediate Swelling Verified 06/09/23 13:53 of the Eye diphenhydramine Allergy Intermediate Hives Verified 06/09/23 13:53 [From Benadryl] Sulfa (Sulfonamide Allergy Intermediate Hives Verified 06/09/23 13:53 Antibiotics) [SULFA (SULFONAMIDE ANTIBIOTICS)] sulfamethoxazole Allergy Intermediate Hives Verified 06/09/23 13:53 [From Bactrim] trimethoprim [From Bactrim] Allergy Intermediate Hives Verified 06/09/23 13:53 naproxen [NAPROXEN] Allergy Mild itching Verified 06/09/23 13:53 tramadol [TRAMADOL] Allergy Mild Vomiting Verified 06/09/23 13:53 citalopram [CITALOPRAM] Allergy Unknown SKIN PEEL Verified 06/09/23 13:53 erythromycin base Allergy Unknown I-RASH Verified 06/09/23 13:53 [ERYTHROMYCIN BASE] Penicillins [PENICILLINS] Allergy Unknown I-RASH Verified 06/09/23 13:53 bupropion [BUPROPION] AdvReac Severe Hallucinati Verified 06/09/23 13:53 ng duloxetine [DULOXETINE] AdvReac Severe Hallucinati Verified 06/09/23 13:53 ng pregabalin [PREGABALIN] AdvReac Severe Hallucinati Verified 06/09/23 13:53 ng celecoxib [From CELEBREX] AdvReac Mild Vomiting Verified 06/09/23 13:53 Results Laboratory Findings 06/14/23 04:15 06/14/23 04:15 Abnormal lab findings: Abnormal Labs 06/13/23 06/13/23 06/13/23 22:00 22:06 23:26 WBC 12.2 H RBC Hgb Hct MCHC 30.2 L Neut % (Auto) Lymph % (Auto) Neut # (Auto) Lymph # (Auto) Neutrophils % (Manual) Lymphocytes % (Manual) Monocytes % (Manual) VBG pH 7.29 L 7.42 H VBG pCO2 33.8 L VBG pO2 27.8 L VBG HCO3 22.4 L 21.3 L VBG Total CO2 22.4 L VBG Base Excess -4.3 L -3.2 L VBG Lactic Acid 2.5 H 4.5 H Chloride 111 H Carbon Dioxide Anion Gap BUN 25 H Creatinine Estimated GFR 56 L Est GFR ( Amer) Glucose 174 H POC Glucose Lactate Magnesium AST 78 H Alkaline Phosphatase 130 H NT-Pro-B Natriuret Pep 2360 H Total Protein Albumin Globulin 3.8 H Albumin/Globulin Ratio 0.9 L 06/14/23 06/14/23 06/14/23 01:40 04:15 05:04 WBC 13.1 H RBC 3.84 L Hgb 10.9 L D Hct 35.5 L MCHC 30.7 L Neut % (Auto) 93.1 H Lymph % (Auto) 4.6 L Neut # (Auto) 12.2 H Lymph # (Auto) 0.6 L Neutrophils % (Manual) 96 H Lymphocytes % (Manual) 3 L Monocytes % (Manual) 1 L VBG pH VBG pCO2 VBG pO2 VBG HCO3 VBG Total CO2 VBG Base Excess VBG Lactic Acid Chloride 110 H Carbon Dioxide 18 L Anion Gap 15.1 H BUN 27 H Creatinine 1.40 H D Estimated GFR 38 L Est GFR ( Amer) 46 L D Glucose 407 H* D POC Glucose 428 H* Lactate 4.2 H 5.8 H Magnesium 1.1 L AST 82 H Alkaline Phosphatase 131 H NT-Pro-B Natriuret Pep Total Protein 6.0 L Albumin 2.9 L D Globulin Albumin/Globulin Ratio 0.9 L Assessment and Plan *Assessment and plan (1) COPD mixed type: Status: Acute Category: Medical Code(s): J44.9 - Chronic obstructive pulmonary disease, unspecified (2) Chronic respiratory failure with hypoxia: Status: Acute Category: Medical Code(s): J96.11 - Chronic respiratory failure with hypoxia Plan Ms. Bartlett is a 63-year-old female current smoker greater than 30 PPD, COPD, chronic hypoxic respiratory failure on 3 L oxygen supplementation at baseline recently seen in the hospital multitude of complaints including worsening respiratory distress managed for COPD exacerbation and pneumonia discharged home on levofloxacin Trelegy inhaler and prednisone presented to the ER again complaining of Worsening respiratory distress and pulmonary was called for further evaluation and management. On admission, afebrile. Hemodynamically stable. Mild leukocytosis. Venous blood gas upon admission did not show any evidence of hypercarbic respiratory failure, pH is 7.29 with a pCO2 47.9. Patient was initiated on BiPAP therapy and subsequent blood gases showed respiratory alkalosis. COVID-19 and flu PCR panel negative. CT chest on admission continue to show decrease centrilobular emphysematous changes. Upper lobe predominant subpleural thickening appears to be chronic when compared to her CT from January 2021. Continued show dilated pulmonary artery consistent with pulmonary hypertension. MIld increase GGO attenuation / air trapping noted On examination patient appeared to be in mild respiratory distress with diffuse wheezing noted on auscultation. Oxygen requirements at baseline. Plan: Incentive spirometry and flutter valve Continue Trelegy 100 inhaler along with Xopenex 3 times daily as needed Will hold off on initiating steroids at this point of time Continue doxycycline x 3 days Follow-up comprehensive respiratory viral PCR panel # Thank you for involving pulmonary in this patient care. Will continue to follow.
[2023-06-14 10:54] LABS: POC Glucose,Bedside 359 (70-110)
[2023-06-14] MEDS: DOXYCYCLINE HYCLATE 100 MG in 0.9 % SODIUM CHLORIDE 250 ML 166.667000000000002 MG IV ×2 (11:03→20:51)
--- NOTE | 2023-06-14 11:18 | HMH.OTEV ---
OT Inpatient Evaluation Rehab OT IP Evaluation Start: 06/13/23 23:35 Freq: ONCE Status: Active Protocol: Document 06/14/23 10:57 PEGGY (Rec: 06/14/23 11:18 [email or web address] [id number]) Rehab OT IP Assessment Subjective History Ms. Bartlett is a 63-year-old female with a past medical history of atrial fibrillation , diastolic heart failure, COPD on 3 L nasal cannula at baseline, CKD, depression, anxiety, T2DM, hypertension who presents emergency department with complaints of shortness of breath weakness. She has been having more shortness of breath for the past 2 to 3 days. Has noticed increased swelling in her legs and pain. [place] some chest tightness. Was brought to the ER after a friend came to check on her and expressed concern. She denies any fever , nausea, vomiting, diarrhea. No syncope or loss of consciousness. Reports compliance with her medications however is hesitant to admit that she smokes and has a complicated medication regimen that I have concern she is not adhering to completely. On arrival to the ER, was found to be hypoxic. Given her work of breathing, ER placed her on BiPAP. O2 sats were appropriate and she did not have hypercarbia. Chest imaging concerning for pulmonary edema with bilateral reticular pattern. Given her increased swelling in her legs, elevated BNP above 2000, ER initiated diuresis. Discussed case with medicine for admission. I requested they transition to nasal cannula oxygen as she was not in hypercarbic failure. Arrived to the floor on 4 L nasal cannula with appropriate saturations. Patient was recently admitted 2 weeks ago, appears chronically ill and is at her baseline mentation on arrival to the floor. Persistent wheeze throughout bilateral lungs. Mildly tachypneic in the low 20s. Appears severely anxious and nervous. Does have worsening swelling in her legs and crackles bilaterally on lung exam. Patient lives alone in 1 story apt building. No KODY. Uses a RW to ambulate. 3L of 02. Independent with ADLs and fx'l mobility prior to hospitalization. Subjective I need help getting up. Instructed Patient on safety awareness to complete bed mobility from supine->sit @ EOB->stand with usage of RW requiring Mod A. Instructed Patient on sit->stand with usage of RW requiring Mod A x2 . Patient demonstrated ability to maneuver safely. Objective Patient Orientation Person,Place,Name,Age Right Upper Extremity Gross ROM WFL Left Upper Extremity Gross ROM WFL Bed Mobility bed mobility - supine/sit Assist Level Moderate x 1 (50% assist) Transfer Training Sit/Stand/Pivot Transfer Assist Level Moderate x 1 (50% assist) Chair Transfer Ability Moderate x 1 (50% assist) Chair Transfer Technique Sit to/from Ambulatory Chair Transfer Assistive Devices Rolling Walker Performing Toilet Hygiene Ability Maximum Assistance Overall Commode/Toilet Transfer Ability Moderate Assistance Commode/Toilet Transfer Technique Sit to/from Ambulatory Rehab OT IP prob,goals,plan Problems Date of Evaluation: 06/14/23 OT IP Problems Bed Mobility,Transfers,Balance ,Self care,Safety Rehab Potential Rehab Potential Good Equipment Needs Assistive Devices Rolling / Wheeled Walker Plan OT intervention Plan Bed Mobility,Transfers,Balance ,Self care,Safety,Therapeutic Exercise OT Plan Frequency Daily Duration LOS Discharge Goals Bed Mobility Ability Assistance x1 Sit to Stand Chair Transfer Ability Minimal x 2 (25% assist) Chair Transfer Ability Minimal x 2 (25% assist) Chair Transfer Technique Sit to/from Ambulatory Chair Transfer Assistive Devices Rolling Walker Lower Body Dressing Ability Moderate Assistance Performing Toilet Hygiene Ability Moderate Assistance Overall Commode/Toilet Transfer Ability Moderate Assistance Commode/Toilet Transfer Technique Sit to/from Ambulatory Discharge Plan OT Discharge Plan Recommend patient for placement at this time. Patient requires increase amount of assistance to complete simple ADLs tasks at this time. Will continue to be seen by IP OT services while here at [facility]. Eval Complexity Eval Charge Codes 38513 - Low Complexity PHYSICIAN CERTIFICATION: I certify the specified therapy services for Kassy Bartlett are required, authorized, and reviewed every 30 days.
--- NOTE | 2023-06-14 11:36 | EXP.CARD.CON ---
History of Present Illness History of Present Illness Consult date: 06/14/23 Requesting physician: Sherman Chang Consult reason: congestive heart failure and shortness of breath Chief complaint: SOA History of present illness: This is a 63-year-old white female who presented to the emergency department with complaints of shortness of breath. She has a past medical history of paroxysmal atrial fibrillation, HFpEF, COPD, type 2 diabetes, hypertension and PAD. The patient was recently admitted to the hospital with a COPD exacerbation and pneumonia. She was sent home on antibiotics and returned to the emergency department with complaints of worsening shortness of breath. She states that she has been short of breath since she has been discharged home but it significantly worsened over the last 2 to 3 days prior to admission. She states that her shortness of breath was severe and she was unable to take very many steps at all without being profoundly short of breath. She was short of breath at rest as well. She states that she had associated swelling in her bilateral lower extremities and significant tightness in her chest at times. The patient states that a friend came to visit her and because of her symptoms brought her to the emergency department. She denies any fever, chills, nausea, vomiting, diarrhea, PND she does have associated orthopnea with her shortness of breath. Upon arrival to the emergency department the patient was found to be hypoxemic and was placed on BiPAP. She does have a CT of the chest which shows a pattern consistent with early stages of pulmonary edema. Her BNP was elevated over 1999. She has been admitted for IV diuresis. The patient is very anxious during my examination today. She states that she has been very bored at home and does not have any friends and does not have anything to do to keep her active. She is still smoking approximately 2 packs of cigarettes a day. She also has a history of being noncompliant with her medication regimen. [facility] Disclaimer: The information contained in this section may have been updated after the patient was seen, as this information can be updated by other users. Medical History (Updated 06/14/23 @ 11:49 by Raghavendra Granda MD) Chronic respiratory failure with hypoxia COPD mixed type Elevated liver enzymes Paroxysmal atrial fibrillation Acute on chronic heart failure with preserved ejection fraction (HFpEF) Suicidal ideation Depression with suicidal ideation Abnormality of lung on CXR Pneumonia Acute and chronic respiratory failure with hypoxia Chest pain Abnormal ankle brachial index (DAVE) Pyelonephritis Restless leg syndrome Hepatitis B Depression Anxiety Chronic kidney disease Sleep apnea Migraine History of transient ischemic attack (TIA) History of hip fracture History of gastroesophageal reflux (GERD) Diabetes mellitus, type 2 Hyperlipidemia Congestive heart failure Nonspecific chest pain Hip fracture Failure to thrive Closed femur fracture Instability of left knee joint Left knee pain Vaginal pain Abnormal computed tomography angiography (CTA) of abdomen and pelvis Claudication Decreased pedal pulses Other specified symptoms and signs involving the circulatory and respiratory systems Acquired hammer toes of both feet Chronic deep vein thrombosis (DVT) of right lower extremity Primary osteoarthritis of both feet Overweight (BMI 25.0-29.9) Acute worsening of stage 3 chronic kidney disease Diabetes mellitus with neuropathy Left leg swelling Lymphedema Plantar fasciitis, left Foot pain, left Obesity (BMI 30.0-34.9) C. difficile colitis RAGHAV (acute kidney injury) Sepsis Community acquired pneumonia Osteoarthritis of feet, bilateral Diabetic peripheral neuropathy associated with type 2 diabetes mellitus Onychoincurvatum Hepatitis C Chest pain Normal coronary arteries Foot pain, right COPD (chronic obstructive pulmonary disease) DVT (deep venous thrombosis) Cellulitis of right foot Hep B w/o coma Hep C w/o coma, chronic Endothelial dysfunction of coronary artery Elevated left ventricular end-diastolic pressure (LVEDP) Cauda equina syndrome Lumbar compression fracture ANNIE on CPAP Langerhan's cell histiocytosis SOB (shortness of breath) on exertion Atrial fibrillation HTN (hypertension) PAD (peripheral artery disease) Abdominal pain Diabetes mellitus Renal insufficiency Acute exacerbation of chronic obstructive airways disease Neck Pain Back pain Surgical History History of cholecystectomy History of appendectomy History of hysterectomy History of cardiac cath Family History Other Coronary artery disease Family history of diabetes mellitus type II Family history of hyperlipidemia Family history of hypertension Social History Smoking Status: Current every day smoker tobacco type: cigarettes packs per day: 2 second hand exposure: Yes alcohol intake: never counseling provided: none substance use type: denies use current occupational status: retired Travel in the last 8 weeks: None household members: none housing: house lives independently: Yes marital status: education level: middle school current occupational exposures/hazards: No caffeine: Yes special ping needs: No agree to transfusion: No do you feel safe at home: Yes victim of physical abuse: No victim of emotional abuse: No victim of sexual abuse: No would you like helpful sources: No Review of Systems Review of Systems Review of systems:: pertinent systems reviewed and negative unless documented below Constitutional Constitutional: Reports system reviewed and no additional complaints, except as documented, Reports fatigue, Reports lethargy and Reports weakness Eyes Eyes: Reports system reviewed and no additional complaints, except as documented ENT Ears, Nose, Mouth, and Throat: Reports system reviewed and no additional complaints, except as documented *Cardiovascular Cardiovascular: Reports system reviewed and no additional complaints, except as documented, Reports chest pain, Reports chest pain at rest, Reports chest pain with activity, Reports dyspnea, Reports dyspnea on exertion, Reports edema, Reports leg edema, Reports orthopnea and Reports pedal edema *Respiratory Respiratory: Reports system reviewed and no additional complaints, except as documented, Reports chest congestion, Reports cough, Reports dyspnea, Reports dyspnea on exertion and Reports wheezing *Gastrointestinal Gastrointestinal: Reports system reviewed and no additional complaints, except as documented *Genitourinary Genitourinary: Reports system reviewed and no additional complaints, except as documented *Musculoskeletal Musculoskeletal: Reports system reviewed and no additional complaints, except as documented Integumentary/Breasts Skin/Breast: Reports system reviewed and no additional complaints, except as documented *Neurologic Neurologic: Reports system reviewed and no additional complaints, except as documented and Reports weakness Psychiatric Psychiatric: Reports system reviewed and no additional complaints, except as documented Endocrine Endocrine: Reports system reviewed and no additional complaints, except as documented and Reports fatigue Hematologic/Lymphatic Hematologic/Lymphatic: Reports system reviewed and no additional complaints, except as documented Allergic/Immunologic Allergic/Immunologic: Reports system reviewed and no additional complaints, except as documented and Reports wheezing Exam Data for Last 24 hours Vital signs and Labs for Last 24 Hours: Temp Pulse Resp BP Pulse Ox O2 Del Method O2 Flow Rate 98.2 F 90 24 126/68 97 Nasal Cannula 3 06/14/23 07:47 06/14/23 08:00 06/14/23 07:47 06/14/23 07:47 06/14/23 07:47 06/14/23 09:00 06/14/23 07:47 FiO2 40 06/13/23 22:28 Laboratory Results - last 24 hr 06/13/23 22:00: WBC 12.2 H, RBC 4.59, Hgb 13.2, Hct 43.7, MCV 95.2, MCH 28.8, MCHC 30.2 L, RDW 16.3, Plt Count 304, MPV 7.8, Neut % (Auto) 61.7, Lymph % (Auto) 29.2, [place] % (Auto) 6.1, Eos % (Auto) 1.9, Baso % (Auto) 1.1, Neut # (Auto) 7.5, Lymph # (Auto) 3.6, [place] # (Auto) 0.8, Eos # (Auto) 0.2, Baso # (Auto) 0.1, Sodium 142, Potassium 4.9, Chloride 111 H, Carbon Dioxide 27, Anion Gap 8.9, BUN 25 H, Creatinine 1.00, Estimated Creat Clear 68, Estimated GFR 56 L, Est GFR ( Amer) 68, Glucose 174 H, Calcium 9.3, Total Bilirubin 0.7, AST 78 H, ALT 54, Alkaline Phosphatase 130 H, Troponin I < 0.01, NT-Pro-B Natriuret Pep 2360 H, Total Protein 7.4 D, Albumin 3.6, Globulin 3.8 H, Albumin/Globulin Ratio 0.9 L 06/13/23 22:06: VBG pH 7.29 L, VBG pCO2 47.9, VBG pO2 27.8 L, VBG HCO3 22.4 L, VBG Total CO2 23.8, VBG O2 Saturation 51.9, VBG Base Excess -4.3 L, VBG Lactic Acid 2.5 H 06/13/23 22:27: Urine Color Yellow, Urine Appearance Clear, Urine pH 5.5, Ur Specific [place] 1.025, Urine Protein 2+, Urine Glucose (UA) Negative, Urine Ketones Negative, Urine Blood 1+, Urine Nitrate Negative, Urine Bilirubin Negative, Urine Urobilinogen 0.2, Ur Leukocyte Esterase Negative, Urine RBC Occasional, Urine WBC None, Ur Squamous Epith Cells None, Urine Bacteria None 06/13/23 23:26: VBG pH 7.42 H, VBG pCO2 33.8 L, VBG pO2 33.4, VBG HCO3 21.3 L, VBG Total CO2 22.4 L, VBG O2 Saturation 69.6, VBG Base Excess -3.2 L, VBG Lactic Acid 4.5 H 06/14/23 01:40: Lactate 4.2 H, Troponin I < 0.01 06/14/23 01:41: SARS-CoV-2 (PCR) Not detected, Influenza A Untype (PCR) Not detected, Influenza Type B (PCR) Not detected 06/14/23 04:15: WBC 13.1 H, RBC 3.84 L, Hgb 10.9 L D, Hct 35.5 L, MCV 92.2, MCH 28.3, MCHC 30.7 L, RDW 16.3, Plt Count 270, MPV 8.2, Neut % (Auto) 93.1 H, Lymph % (Auto) 4.6 L, [place] % (Auto) 1.7, Eos % (Auto) 0.1, Baso % (Auto) 0.5, Neut # (Auto) 12.2 H, Lymph # (Auto) 0.6 L, [place] # (Auto) 0.2, Eos # (Auto) 0.0, Baso # (Auto) 0.1, Total Counted 100, Neutrophils % (Manual) 96 H, Lymphocytes % (Manual) 3 L, Monocytes % (Manual) 1 L, Platelet Estimate Normal, RBC Morphology Normal, Sodium 138, Potassium 5.1, Chloride 110 H, Carbon Dioxide 18 L, Anion Gap 15.1 H, BUN 27 H, Creatinine 1.40 H D, Estimated Creat Clear 49, Estimated GFR 38 L, Est GFR ( Amer) 46 L D, Glucose 407 H* D, Lactate 5.8 H, Calcium 8.6, Magnesium 1.1 L, Total Bilirubin 0.5, AST 82 H, ALT 60, Alkaline Phosphatase 131 H, Troponin I < 0.01, Total Protein 6.0 L, Albumin 2.9 L D, Globulin 3.1, Albumin/Globulin Ratio 0.9 L 06/14/23 05:04: POC Glucose 428 H* 06/14/23 10:40: POC Glucose 359 H* I & O for Last 24 hours: Intake & Output 06/11/23 06/12/23 06/13/23 06/14/23 23:59 23:59 23:59 23:59 Intake Total 470 / 470 Output Total 1675 / 1675 Balance -1205 / -1205 Weight 163 lb 148 lb 4.8 oz Constitutional Constitutional: no acute distress and average body habitus *Routine HEENT Exam Head: Present normocephalic and atraumatic ENT: Present mucous membranes moist *Routine Neck Exam Neck: Present supple, full ROM and normal carotid upstroke; Absent JVD, carotid bruit or lymphadenopathy *Routine Respiratory Exam Respiratory: Present rales, rhonchi, wheezes (Inspiratory and expiratory wheezing noted throughout) and diminished air movement *Routine Cardiovascular Exam Cardiovascular: Present RRR, Normal S1 and Normal S2; Absent murmur or gallop *Routine Abdominal Exam Abdominal: Present soft and normoactive bowel sounds; Absent tenderness, distended or organomegaly *Routine Extremities Exam Extremities: Present full ROM, pulses intact and normal capillary refill; Absent cyanosis, clubbing or edema *Routine Skin Exam Skin: Present intact and warm; Absent erythema *Routine Neurological Exam Neurological: Present alert, oriented X3 and CN II-XII intact; Absent sensory deficit or motor deficit Routine Psychiatric Exam Psychiatric: Present normal affect Meds Home Medications and Allergies Home Medications Medication Instructions Recorded Confirmed Type apixaban 5 mg tablet (Eliquis) 5 mg PO BID Blood Thinner 09/06/22 06/14/23 History metformin 500 mg tablet 1,000 mg (2 x 500 mg) PO BID 02/17/23 06/14/23 Rx Diabetes 90 days #360 tabs pantoprazole 40 mg tablet,delayed 40 mg PO DAILY Acid Reflux #90 tabs 03/25/23 06/14/23 Rx release buspirone 5 mg tablet 10 mg (2 x 5 mg) PO BID 30 days 03/31/23 06/14/23 Rx #60 tabs atorvastatin 10 mg tablet 10 mg PO HS 05/28/23 06/14/23 History dapagliflozin propanediol 10 mg 10 mg PO DAILY 05/28/23 06/14/23 History tablet (Farxiga) isosorbide mononitrate 30 mg 30 mg PO DAILY 05/28/23 06/14/23 History tablet,extended release 24 hr sertraline 100 mg tablet 150 mg PO DAILY 05/28/23 06/14/23 History fluticasone fur. 100 mcg-umeclid 1 inh inhalation DAILY 30 days #1 05/30/23 06/14/23 Rx 62.5 mcg-vilant 25 mcg ea inhalat.powder (Trelegy Ellipta) magnesium oxide 400 mg (241.3 mg 400 mg PO DAILY 30 days #30 tabs 05/30/23 06/14/23 Rx magnesium) tablet metoprolol tartrate 25 mg tablet 12.5 mg (1/2 x 25 mg) PO BID 30 05/30/23 06/14/23 Rx days #30 tabs quetiapine 25 mg tablet 50 mg (2 x 25 mg) PO HS 30 days 05/30/23 06/14/23 Rx #60 tabs gabapentin 300 mg capsule 300 mg PO TID #90 caps 06/09/23 06/14/23 Rx insulin glargine 100 unit/mL (3 9 unit (0.09 mL) SQ BID #15 mL 06/09/23 06/14/23 Rx mL) subcutaneous pen oxycodone-acetaminophen 7.5 mg-325 1 tab PO QIDP PRN Moderate Pain 06/09/23 06/14/23 Rx mg tablet (Scale Score 5-6) #120 tabs famotidine 20 mg tablet 20 mg PO BID 06/14/23 06/14/23 History insulin NPH-regular 70-30 U-100 8 unit SQ BIDWMEAL 06/14/23 06/14/23 History insulin 100 unit/mL subcutaneous pen (Humulin 70/30 U-100 KwikPen) New Prescriptions to Start Prescriptions: Allergies Allergy/AdvReac Type Severity Reaction Status Date / Time methocarbamol Allergy Severe Altered Verified 06/09/23 13:53 mental status terbutaline [TERBUTALINE] Allergy Severe SWELLS Verified 06/09/23 13:53 THROAT aspirin [ASPIRIN] Allergy Intermediate I-RASH Verified 06/09/23 13:53 codeine [CODEINE] Allergy Intermediate Swelling Verified 06/09/23 13:53 of the Eye diphenhydramine Allergy Intermediate Hives Verified 06/09/23 13:53 [From Benadryl] Sulfa (Sulfonamide Allergy Intermediate Hives Verified 06/09/23 13:53 Antibiotics) [SULFA (SULFONAMIDE ANTIBIOTICS)] sulfamethoxazole Allergy Intermediate Hives Verified 06/09/23 13:53 [From Bactrim] trimethoprim [From Bactrim] Allergy Intermediate Hives Verified 06/09/23 13:53 naproxen [NAPROXEN] Allergy Mild itching Verified 06/09/23 13:53 tramadol [TRAMADOL] Allergy Mild Vomiting Verified 06/09/23 13:53 citalopram [CITALOPRAM] Allergy Unknown SKIN PEEL Verified 06/09/23 13:53 erythromycin base Allergy Unknown I-RASH Verified 06/09/23 13:53 [ERYTHROMYCIN BASE] Penicillins [PENICILLINS] Allergy Unknown I-RASH Verified 06/09/23 13:53 bupropion [BUPROPION] AdvReac Severe Hallucinati Verified 06/09/23 13:53 ng duloxetine [DULOXETINE] AdvReac Severe Hallucinati Verified 06/09/23 13:53 ng pregabalin [PREGABALIN] AdvReac Severe Hallucinati Verified 06/09/23 13:53 ng celecoxib [From CELEBREX] AdvReac Mild Vomiting Verified 06/09/23 13:53 Assessment and Plan *Assessment and plan (1) Acute on chronic heart failure with preserved ejection fraction (HFpEF): Status: Acute Category: Medical Code(s): I50.33 - Acute on chronic diastolic (congestive) heart failure (2) Shortness of breath: Status: Acute Category: Medical Code(s): R06.02 - Shortness of breath (3) Bilateral edema of lower extremity: Status: Acute Category: Medical Code(s): R60.0 - Localized edema (4) Acute exacerbation of chronic obstructive pulmonary disease: Status: Acute Category: Medical Code(s): J44.1 - Chronic obstructive pulmonary disease with (acute) exacerbation (5) Acute and chronic respiratory failure with hypoxia: Status: Acute Category: Medical Code(s): J96.21 - Acute and chronic respiratory failure with hypoxia (6) Diabetes mellitus, type 2: Problem Comment: We tried to send this patient to endocrinology but she has been in the hospital and had multiple other problems. She cannot get the 70[address] her on glargine at 9 units twice daily. This may not be enough but I do not want to overshoot. Will see her back in approximately 2 to 3 weeks. I have suggested that they check blood sugars write them down and bring them in with her at her next visit. Status: Acute Qualifiers: Diabetes mellitus long-term insulin use: with long-term use Diabetes mellitus complication status: with neurologic complications Diabetes mellitus complication detail: with polyneuropathy Qualified Code(s): E11.42 - Type 2 diabetes mellitus with diabetic polyneuropathy; Z79.4 - long term care phlebotomist (current) use of insulin Category: Medical Code(s): E11.9 - Type 2 diabetes mellitus without complications (7) Anxiety: Status: Acute Category: Medical Code(s): F41.9 - Anxiety disorder, unspecified (8) HTN (hypertension): Status: Chronic Qualifiers: Hypertension type: essential hypertension Qualified Code(s): I10 - Essential (primary) hypertension Category: Medical Code(s): I10 - Essential (primary) hypertension (9) Tobacco use: Status: Acute Category: Social Hx Code(s): Z72.0 - Tobacco use (10) Paroxysmal atrial fibrillation: Status: Acute Category: Medical Code(s): I48.0 - Paroxysmal atrial fibrillation (11) Elevated liver enzymes: Status: Acute Category: Medical Code(s): R74.8 - Abnormal levels of other serum enzymes Plan Plan: 1. The patient was admitted to the hospital with acute on chronic respiratory failure. She is having a COPD exacerbation. Will defer this to pulmonology. 2. The patient does have an acute on chronic exacerbation of HFpEF. Will continue IV diuresis with Bumex 1 mg IV twice daily. She did have a -1300 fluid balance overnight. 3. Recent echocardiogram shows a normal ejection fraction. 4. The patient has ruled out for an MA. No plans for invasive left cardiac catheterization at this time. She had a cardiac catheterization in July 2022 which showed normal coronary arteries. 5. Her blood pressure is well-controlled. 6. Her LDL goal is less than 55. Her LDL 68 in May 2023. On a statin. 7. Continue metoprolol and Farxiga for her HFpEF. 8. She is not on an ARTUR/ARB/Entresto at this time due to her renal function. We may consider this when she is more euvolemic if her renal function improves. 9. She does have elevated liver enzymes which is most likely from hepatic congestion from her acute on chronic HFpEF. 10. The patient does have paroxysmal atrial fibrillation. She is currently in sinus rhythm. She is on Eliquis for long-term anticoagulation. 11. The patient is diabetic. She will need aggressive control of her diabetes. Will defer to the hospitalist. 12. Further recommendations will be made pending the patient's response to treatment. Thank you for the opportunity to help participate in the care of this patient. All recommendations and orders are per Dr. Jay.
--- NOTE | 2023-06-14 12:19 | EXP.ACUTE.PN ---
Subjective *Date: 06/14/23 *Time: 12:19 Interval history: Still feels weak this morning. Weaned to 3 L nasal cannula on morning rounds. Tolerating p.o. intake. Quite weak, significant tremor on exam (her baseline). Cardiology, pulmonology, behavioral health to evaluate patient today. Low magnesium on labs, replacing. No nausea or vomiting. No chest pain. No fever overnight. Medical Exam Vital signs and Labs for Last 24 Hours: Vital Signs Temp Pulse Pulse Resp BP BP Pulse Ox 06/14/23 11:00 06/14/23 09:00 06/14/23 08:00 90 06/14/23 08:00 06/14/23 07:47 98.2 F 93 H 24 126/68 97 06/14/23 06:54 06/14/23 06:14 84 06/14/23 06:14 87 06/14/23 06:14 95 06/14/23 05:00 06/14/23 04:00 98.4 F 86 20 115/70 94 L 06/14/23 04:00 83 06/14/23 03:00 06/14/23 01:41 81 06/14/23 01:41 96 06/14/23 01:00 06/14/23 01:00 06/14/23 00:28 79 06/14/23 00:10 97.8 F 80 26 H 144/89 H 06/14/23 00:00 98.4 F 79 20 135/89 98 06/14/23 00:00 82 28 H 144/89 H 96 06/13/23 23:37 77 25 H 130/68 100 06/13/23 22:30 74 26 H 152/110 H 99 06/13/23 22:28 06/13/23 22:06 75 190/97 H 98 06/13/23 22:02 98.5 F 73 28 H 152/110 H 98 O2 Del Method O2 Flow Rate FiO2 06/14/23 11:00 Nasal Cannula 06/14/23 09:00 Nasal Cannula 06/14/23 08:00 06/14/23 08:00 Nasal Cannula 06/14/23 07:47 Nasal Cannula 3 06/14/23 06:54 Nasal Cannula 3 06/14/23 06:14 06/14/23 06:14 06/14/23 06:14 Nasal Cannula 3 06/14/23 05:00 Nasal Cannula 3 06/14/23 04:00 Nasal Cannula 3 06/14/23 04:00 06/14/23 03:00 Nasal Cannula 3 06/14/23 01:41 06/14/23 01:41 Nasal Cannula 3 06/14/23 01:00 Nasal Cannula 3 06/14/23 01:00 Nasal Cannula 3 06/14/23 00:28 06/14/23 00:10 Nasal Cannula 4 06/14/23 00:00 Nasal Cannula 4 06/14/23 00:00 06/13/23 23:37 06/13/23 22:30 06/13/23 22:28 40 06/13/23 22:06 06/13/23 22:02 BiPAP Intake and Output 06/13/23 06/14/23 06/14/23 23:59 07:59 15:59 Intake Total 200 / 470 270 / 470 Output Total 1500 / 1675 175 / 1675 Balance -1300 / -1205 95 / -1205 Intake: Intake, Oral Amount 270 / 270 Intake, Oral Supplement Amount 200 / 200 Output: Output, Urine Amount 500 / 675 175 / 675 Output, Urine Amount (Catheter) 1000 / 1000 [place] 1000 / 1000 Other: Number of Unmeasured Voids 1 0 Number of Bowel Movements 1 Weight 73.936 kg 67.268 kg Patient Weight 06/14/23 23:59 Weight 67.268 kg Laboratory Results - last 24 hr 06/13/23 22:00: WBC 12.2 H, RBC 4.59, Hgb 13.2, Hct 43.7, MCV 95.2, MCH 28.8, MCHC 30.2 L, RDW 16.3, Plt Count 304, MPV 7.8, Neut % (Auto) 61.7, Lymph % (Auto) 29.2, [place] % (Auto) 6.1, Eos % (Auto) 1.9, Baso % (Auto) 1.1, Neut # (Auto) 7.5, Lymph # (Auto) 3.6, [place] # (Auto) 0.8, Eos # (Auto) 0.2, Baso # (Auto) 0.1, Sodium 142, Potassium 4.9, Chloride 111 H, Carbon Dioxide 27, Anion Gap 8.9, BUN 25 H, Creatinine 1.00, Estimated Creat Clear 68, Estimated GFR 56 L, Est GFR ( Amer) 68, Glucose 174 H, Calcium 9.3, Total Bilirubin 0.7, AST 78 H, ALT 54, Alkaline Phosphatase 130 H, Troponin I < 0.01, NT-Pro-B Natriuret Pep 2360 H, Total Protein 7.4 D, Albumin 3.6, Globulin 3.8 H, Albumin/Globulin Ratio 0.9 L 06/13/23 22:06: VBG pH 7.29 L, VBG pCO2 47.9, VBG pO2 27.8 L, VBG HCO3 22.4 L, VBG Total CO2 23.8, VBG O2 Saturation 51.9, VBG Base Excess -4.3 L, VBG Lactic Acid 2.5 H 06/13/23 22:27: Urine Color Yellow, Urine Appearance Clear, Urine pH 5.5, Ur Specific [place] 1.025, Urine Protein 2+, Urine Glucose (UA) Negative, Urine Ketones Negative, Urine Blood 1+, Urine Nitrate Negative, Urine Bilirubin Negative, Urine Urobilinogen 0.2, Ur Leukocyte Esterase Negative, Urine RBC Occasional, Urine WBC None, Ur Squamous Epith Cells None, Urine Bacteria None 06/13/23 23:26: VBG pH 7.42 H, VBG pCO2 33.8 L, VBG pO2 33.4, VBG HCO3 21.3 L, VBG Total CO2 22.4 L, VBG O2 Saturation 69.6, VBG Base Excess -3.2 L, VBG Lactic Acid 4.5 H 06/14/23 01:40: Lactate 4.2 H, Troponin I < 0.01 06/14/23 01:41: SARS-CoV-2 (PCR) Not detected, Influenza A Untype (PCR) Not detected, Influenza Type B (PCR) Not detected 06/14/23 04:15: WBC 13.1 H, RBC 3.84 L, Hgb 10.9 L D, Hct 35.5 L, MCV 92.2, MCH 28.3, MCHC 30.7 L, RDW 16.3, Plt Count 270, MPV 8.2, Neut % (Auto) 93.1 H, Lymph % (Auto) 4.6 L, [place] % (Auto) 1.7, Eos % (Auto) 0.1, Baso % (Auto) 0.5, Neut # (Auto) 12.2 H, Lymph # (Auto) 0.6 L, [place] # (Auto) 0.2, Eos # (Auto) 0.0, Baso # (Auto) 0.1, Total Counted 100, Neutrophils % (Manual) 96 H, Lymphocytes % (Manual) 3 L, Monocytes % (Manual) 1 L, Platelet Estimate Normal, RBC Morphology Normal, Sodium 138, Potassium 5.1, Chloride 110 H, Carbon Dioxide 18 L, Anion Gap 15.1 H, BUN 27 H, Creatinine 1.40 H D, Estimated Creat Clear 49, Estimated GFR 38 L, Est GFR ( Amer) 46 L D, Glucose 407 H* D, Lactate 5.8 H, Calcium 8.6, Magnesium 1.1 L, Total Bilirubin 0.5, AST 82 H, ALT 60, Alkaline Phosphatase 131 H, Troponin I < 0.01, Total Protein 6.0 L, Albumin 2.9 L D, Globulin 3.1, Albumin/Globulin Ratio 0.9 L 06/14/23 05:04: POC Glucose 428 H* 06/14/23 10:40: POC Glucose 359 H* I & O for Labs for Last 24 Hours: Intake & Output 06/11/23 06/12/23 06/13/23 06/14/23 23:59 23:59 23:59 23:59 Intake Total 470 / 470 Output Total 1675 / 1675 Balance -1205 / -1205 Weight 73.936 kg 67.268 kg Constitutional: Present no acute distress, average body habitus, chronically ill appearing and cooperative Head: Present atraumatic and normocephalic ENT: Present normal exam Neck: Present normal inspection Respiratory: Present prolonged expiratory phase, wheezes (Diffuse) and normal respiratory effort; Absent rhonchi or crackles Cardiac: Present Regular Rhythm and Tachycardia GI: Present soft and normal bowel sounds; Absent distention or tenderness Extremities: Present normal inspection and full ROM; Absent edema Comment:: Senile purpura on arms Skin: Present intact and ecchymosis; Absent erythema Neuro: Present Grossly Intact, alert, awake, oriented x 3 and moves all extremities Comment:: Tremor present Assessment and Plan *Assessment and plan (1) Acute and chronic respiratory failure with hypoxia: Status: Acute Category: Medical Code(s): J96.21 - Acute and chronic respiratory failure with hypoxia (2) Acute on chronic diastolic (congestive) heart failure: Status: Acute Category: Medical Code(s): I50.33 - Acute on chronic diastolic (congestive) heart failure (3) Chronic respiratory failure: Status: Acute Category: Medical Code(s): J96.10 - Chronic respiratory failure, unspecified whether with hypoxia or hypercapnia (4) Acute exacerbation of chronic obstructive pulmonary disease: Status: Acute Category: Medical Code(s): J44.1 - Chronic obstructive pulmonary disease with (acute) exacerbation (5) Paroxysmal atrial fibrillation: Status: Acute Category: Medical Code(s): I48.0 - Paroxysmal atrial fibrillation (6) Anxiety and depression: Status: Acute Category: Medical Code(s): F41.9 - Anxiety disorder, unspecified; F32.A - Depression, unspecified (7) Tobacco use: Status: Acute Category: Social Hx Code(s): Z72.0 - Tobacco use (8) Type 2 diabetes mellitus with hyperglycemia: Status: Chronic Qualifiers: Diabetes mellitus ad terminal makeup operator insulin use: without ad terminal makeup operator use Qualified Code(s): E11.65 - Type 2 diabetes mellitus with hyperglycemia Category: Medical Code(s): E11.65 - Type 2 diabetes mellitus with hyperglycemia (9) HTN (hypertension): Status: Chronic Qualifiers: Hypertension type: essential hypertension Qualified Code(s): I10 - Essential (primary) hypertension Category: Medical Code(s): I10 - Essential (primary) hypertension Plan Ms. Bartlett is a 63-year-old female with chronic hypoxemic respiratory failure, chronic anticoagulation, poorly controlled diabetes, chronic pain, anxiety. Presented with shortness of breath and increased swelling in legs. Concern for acute on chronic hypoxemic respiratory failure due to CHF exacerbation and COPD exacerbation. Patient continues to smoke excessively 1-1/2 to 2 packs a day. Discussed case with ER, request admission for diuresis and further management. Medicine agreed to admit for further management. Initiated on doxycycline. Will continue these antibiotics for now. Pulmonology, cardiology, behavioral health consulted to assist with care. Concerned that patient severe anxiety underlies her readmission. She smokes heavily due to her anxiety which worsens her COPD and is led to her worsening shortness of breath. Will also have PT and OT evaluate her to evaluate for safety going home. Patient is scared about going to a longterm. Currently lives by herself and is reliant on family to grocery shop for her and check on her. She mobilizes with walker and wheelchair. Necessitating inpatient management. Diuresing well. Weaned to 3 L oxygen. Problems addressed as follows: # Acute on chronic chronic respiratory failure with hypoxia # COPD exacerbation #Acute on chronic diastolic congestive heart failure # Nicotine dependence - Goal sats greater 90%. Currently requiring 3 L -Discussed case with cardiology and pulmonology today. Cardiology recommends continuing Bumex for diuresis. Patient -1.5 L so far. In discussion with pulmonology, recommend continuing medical management. Continue doxycycline 100 mg twice daily for 5 days. -Continue Xopenex and ipratropium every 6 hours scheduled, budesonide twice daily - Continue metoprolol 12.5 mg twice daily for blood pressure and rate control. - Continue isosorbide mononitrate as daily, Farxiga 10 mg daily, Lipitor 10 mg nightly, Eliquis 5 mg twice daily - Reports smoking 2 packs a day of cigarettes. nicotine patch daily. - White cell count 13.1 today. Repeat CBC, CMP, magnesium ordered for the morning. -Negative for COVID and flu. # T2DM A1C 8.7 last admission 2 weeks ago Continue farxiga 10 mg daily; continue metformin 1000mg BID Continue Lantus 9 units twice daily Continue sliding scale # Anxiety and depression: - Continue Zoloft, increase to 200 mg daily. continue hydroxyzine 25 mg every 6 hours as needed for anxiety. - Continue Seroquel 25 mg nightly to help with sleep and anxiety - behavioral health consulted and seeing patient today. - continue BuSpar 10 mg twice daily # GERD: Continue home medications with famotidine 20 mg twice daily # Chronic pain: Continue home oxycodone 1 tablet 4 times a day as needed for pain. States compliance with regimen at home Hypomagnesemia: Magnesium 1.1. On 400 mg p.o. daily at home, will treat with 2 g IV x 1 and increase oral repletion to 400 mg twice daily. PT and OT working with patient. Would benefit from rehab. Case management assisting with placement recommendations DVT PPx on home Eliquis Full code Diabetic diet
--- NOTE | 2023-06-14 13:02 | [facility].PTEV ---
Physical Therapy Evaluation Rehab PT IP Evaluation Start: 06/13/23 23:35 Freq: ONCE Status: Active Protocol: Document 06/14/23 12:53 SILVESTRE (Rec: 06/14/23 13:01 SILVESTRE [email or web address]) Subjective/History History History Per H&P: Ms. Bartlett is a 63-year-old female with a past medical history of atrial fibrillation , diastolic heart failure, COPD on 3 L nasal cannula at baseline, CKD, depression, anxiety, T2DM, hypertension who presents emergency department with complaints of shortness of breath weakness. She has been having more shortness of breath for the past 2 to 3 days. Has noticed increased swelling in her legs and pain. Hunt some chest tightness. Was brought to the ER after a friend came to check on her and expressed concern. She denies any fever , nausea, vomiting, diarrhea. No syncope or loss of consciousness. Reports compliance with her medications however is hesitant to admit that she smokes and has a complicated medication regimen that I have concern she is not adhering to completely. On arrival to the ER, was found to be hypoxic. Given her work of breathing, ER placed her on BiPAP. O2 sats were appropriate and she did not have hypercarbia. Chest imaging concerning for pulmonary edema with bilateral reticular pattern. Given her increased swelling in her legs, elevated BNP above 2000, ER initiated diuresis. Discussed case with medicine for admission. I requested they transition to nasal cannula oxygen as she was not in hypercarbic failure. Arrived to the floor on 4 L nasal cannula with appropriate saturations. Subjective Subjective PLOF per pt report: Lives alone in single story apartment. Using a SPC and RW for Mod I ambulation. Was recieving PT services. Not driving prior to admission. New diagnosis of cancer in past 12 No months? Rehab PT IP Eval Objective Appearance Patient Behavior Appropriate,Cooperative Patient Orientation Person,Birthday,Situation Difficulty following instructions none Speech Pattern Clear Ambulation Patient Able to Ambulate Yes Ambulation Observation IP General Gait Pattern Observation Wide Based Gait,Trunk Posterior to CLAIRE Ambulation Distance (feet) 3 Ambulation Assistive Device Rolling Walker Ambulation Ability Moderate x 1 (50% assist) Balance Ability to Arise Able, uses arms to help Sitting Balance Steady, safe Standing Balance Unsteady Transfers Bed Transfer Ability Minimal x 1 (25% assist) Sit to Stand Bed Transfer Ability Contact Guard/Hand Hold Rehab PT IP prob,goals,plan Problems Date of Evaluation: 06/14/23 PT IP Problems Bed Mobility,Transfers,Gait, Balance,Self care,Safety Rehab Potential Rehab Potential Good Equipment Needs Assistive Devices Rolling / Wheeled Walker Plan PT Intervention Plan Bed Mobility,Transfers,Gait, Balance,Safety,Therapeutic Exercise Other Intervention Plan 1-2 times PT Plan Frequency Daily Duration LOS Discharge Goals Bed Transfer Ability Independent Sit to Stand Chair Transfer Ability Supervision/Stand by Ambulation Assistive Device Rolling Walker Ambulation Distance (feet) 15 Discharge Plan PT Discharge Plan Initial physical therapy evaluation performed. Patient presents below baseline at this time in functional mobility, transfers, and strength. Pt not safe to return home at this time d/t current level of functional mobility. PT recommending short-term rehabilitation stay upon d/c from [facility]. Pt would benefit from skilled PT while at [facility] to prevent further functional decline and maximize safety with mobility. Eval Complexity Eval Charge Codes 20591 - Moderate Complexity PHYSICIAN CERTIFICATION: I certify the specified therapy services for Kassy Bartlett are required, authorized, and reviewed every 30 days.
--- NOTE | 2023-06-14 15:02 | EXP.BH.CONS ---
History of Present Illness *Admission Date: 06/13/23 *Reason for visit:: depression and anxiety *History of present illness: I interviewed Kassy at her bedside. She was sitting up in the chair waiting on her lunch. -she states that she is here cause of her breathing -that she had a lot of fluid build up and chest pains -she states that she was here 2 weeks ago for the same stuff -states she has CHF; COPD -and knows that she shouldn't smoke -she states that she gets so tore up -and that just looking at her arms is upsetting to her -cause of the bruises and her skin -she states that she can't accept that she is 63 -that she has a grandkid graduating from high school soon -that her daughter is 40 years old -and her daughter is sick with her own stuff right now -she states that she just can't accept any of it right now She sits at home by herself and just thinks. -she is there by herself with her dog -and her mind runs away from her -she states that they are talking about sending her to a senior care -and this tears her up -feels they are pushing her to make this decision -and she doesn't want to do this -states that she wants more time here; to stay here in the hospital for 4-5 days to get her strength back -she states that she is afraid the SNF will keep her there and never let her leave -she states that she misses working -she didn't smoke back then -she worked at [employer] -and was up on her feet busy all the time -she has been on disability since 2011 She states that about 2 years ago; she gave up on life. -she stopped driving -felt overwhelmed with everything -people dying around her -her health getting worse -denies any hobbies or activities that she does -doesn't go to scientologist cause they are all hypocrite -she states that she is a hermit now -and it was the worst thing she could have done for her mental health -that she is alone and sits alone all the time by herself -no visitors come to see her -she states that she has a friend that lives close to her -but she doesn't want to burden her with her business She states that she was inpatient at [facility] when she was 51 years old -that she went there cause of depression -they gave her a therapist and it was amazing -that she could tell this person anything and get it off her chest -she states that this person left and she hasn't been able to find someone else she likes the way she did her She states that she feels if she were to go to a senior care that her life is over. -and if she has to go to one she doesn't want to go out of town -that everyone will forget about her -she states that she has a lot of anxiety at home -doesn't feel her anxiety medicines have helped for some time now -feels that she needs a boost of something -she knows nothing is magic but wants something to help [facility] Disclaimer: The information contained in this section may have been updated after the patient was seen, as this information can be updated by other users. Medical History (Updated 06/14/23 @ 11:49 by Raghavendra Granda MD) Chronic respiratory failure with hypoxia COPD mixed type Elevated liver enzymes Paroxysmal atrial fibrillation Acute on chronic heart failure with preserved ejection fraction (HFpEF) Suicidal ideation Depression with suicidal ideation Abnormality of lung on CXR Pneumonia Acute and chronic respiratory failure with hypoxia Chest pain Abnormal ankle brachial index (DAVE) Pyelonephritis Restless leg syndrome Hepatitis B Depression Anxiety Chronic kidney disease Sleep apnea Migraine History of transient ischemic attack (TIA) History of hip fracture History of gastroesophageal reflux (GERD) Diabetes mellitus, type 2 Hyperlipidemia Congestive heart failure Nonspecific chest pain Hip fracture Failure to thrive Closed femur fracture Instability of left knee joint Left knee pain Vaginal pain Abnormal computed tomography angiography (CTA) of abdomen and pelvis Claudication Decreased pedal pulses Other specified symptoms and signs involving the circulatory and respiratory systems Acquired hammer toes of both feet Chronic deep vein thrombosis (DVT) of right lower extremity Primary osteoarthritis of both feet Overweight (BMI 25.0-29.9) Acute worsening of stage 3 chronic kidney disease Diabetes mellitus with neuropathy Left leg swelling Lymphedema Plantar fasciitis, left Foot pain, left Obesity (BMI 30.0-34.9) C. difficile colitis RAGHAV (acute kidney injury) Sepsis Community acquired pneumonia Osteoarthritis of feet, bilateral Diabetic peripheral neuropathy associated with type 2 diabetes mellitus Onychoincurvatum Hepatitis C Chest pain Normal coronary arteries Foot pain, right COPD (chronic obstructive pulmonary disease) DVT (deep venous thrombosis) Cellulitis of right foot Hep B w/o coma Hep C w/o coma, chronic Endothelial dysfunction of coronary artery Elevated left ventricular end-diastolic pressure (LVEDP) Cauda equina syndrome Lumbar compression fracture ANNIE on CPAP Langerhan's cell histiocytosis SOB (shortness of breath) on exertion Atrial fibrillation HTN (hypertension) PAD (peripheral artery disease) Abdominal pain Diabetes mellitus Renal insufficiency Acute exacerbation of chronic obstructive airways disease Neck Pain Back pain Surgical History History of cholecystectomy History of appendectomy History of hysterectomy History of cardiac cath Family History Other Coronary artery disease Family history of diabetes mellitus type II Family history of hyperlipidemia Family history of hypertension Social History Smoking Status: Current every day smoker tobacco type: cigarettes packs per day: 2 second hand exposure: Yes alcohol intake: never counseling provided: none substance use type: denies use current occupational status: retired Travel in the last 8 weeks: None household members: none housing: house lives independently: Yes marital status: education level: middle school current occupational exposures/hazards: No caffeine: Yes special ping needs: No agree to transfusion: No do you feel safe at home: Yes victim of physical abuse: No victim of emotional abuse: No victim of sexual abuse: No would you like helpful sources: No Review of Systems Constitutional Constitutional: Reports weakness *Neurologic Neurologic: Reports system reviewed and no additional complaints, except as documented and Reports weakness Meds Home Medications and Allergies Home Medications Medication Instructions Recorded Confirmed Type apixaban 5 mg tablet (Eliquis) 5 mg PO BID Blood Thinner 09/06/22 06/14/23 History metformin 500 mg tablet 1,000 mg (2 x 500 mg) PO BID 02/17/23 06/14/23 Rx Diabetes 90 days #360 tabs pantoprazole 40 mg tablet,delayed 40 mg PO DAILY Acid Reflux #90 tabs 03/25/23 06/14/23 Rx release buspirone 5 mg tablet 10 mg (2 x 5 mg) PO BID 30 days 03/31/23 06/14/23 Rx #60 tabs atorvastatin 10 mg tablet 10 mg PO HS 05/28/23 06/14/23 History dapagliflozin propanediol 10 mg 10 mg PO DAILY 05/28/23 06/14/23 History tablet (Farxiga) isosorbide mononitrate 30 mg 30 mg PO DAILY 05/28/23 06/14/23 History tablet,extended release 24 hr sertraline 100 mg tablet 150 mg PO DAILY 05/28/23 06/14/23 History fluticasone fur. 100 mcg-umeclid 1 inh inhalation DAILY 30 days #1 05/30/23 06/14/23 Rx 62.5 mcg-vilant 25 mcg ea inhalat.powder (Trelegy Ellipta) magnesium oxide 400 mg (241.3 mg 400 mg PO DAILY 30 days #30 tabs 05/30/23 06/14/23 Rx magnesium) tablet metoprolol tartrate 25 mg tablet 12.5 mg (1/2 x 25 mg) PO BID 30 05/30/23 06/14/23 Rx days #30 tabs quetiapine 25 mg tablet 50 mg (2 x 25 mg) PO HS 30 days 05/30/23 06/14/23 Rx #60 tabs gabapentin 300 mg capsule 300 mg PO TID #90 caps 06/09/23 06/14/23 Rx insulin glargine 100 unit/mL (3 9 unit (0.09 mL) SQ BID #15 mL 06/09/23 06/14/23 Rx mL) subcutaneous pen oxycodone-acetaminophen 7.5 mg-325 1 tab PO QIDP PRN Moderate Pain 06/09/23 06/14/23 Rx mg tablet (Scale Score 5-6) #120 tabs famotidine 20 mg tablet 20 mg PO BID 06/14/23 06/14/23 History insulin NPH-regular 70-30 U-100 8 unit SQ BIDWMEAL 06/14/23 06/14/23 History insulin 100 unit/mL subcutaneous pen (Humulin 70/30 U-100 KwikPen) New Prescriptions to Start Prescriptions: Allergies Allergy/AdvReac Type Severity Reaction Status Date / Time methocarbamol Allergy Severe Altered Verified 06/09/23 13:53 mental status terbutaline [TERBUTALINE] Allergy Severe SWELLS Verified 06/09/23 13:53 THROAT aspirin [ASPIRIN] Allergy Intermediate I-RASH Verified 06/09/23 13:53 codeine [CODEINE] Allergy Intermediate Swelling Verified 06/09/23 13:53 of the Eye diphenhydramine Allergy Intermediate Hives Verified 06/09/23 13:53 [From Benadryl] Sulfa (Sulfonamide Allergy Intermediate Hives Verified 06/09/23 13:53 Antibiotics) [SULFA (SULFONAMIDE ANTIBIOTICS)] sulfamethoxazole Allergy Intermediate Hives Verified 06/09/23 13:53 [From Bactrim] trimethoprim [From Bactrim] Allergy Intermediate Hives Verified 06/09/23 13:53 naproxen [NAPROXEN] Allergy Mild itching Verified 06/09/23 13:53 tramadol [TRAMADOL] Allergy Mild Vomiting Verified 06/09/23 13:53 citalopram [CITALOPRAM] Allergy Unknown SKIN PEEL Verified 06/09/23 13:53 erythromycin base Allergy Unknown I-RASH Verified 06/09/23 13:53 [ERYTHROMYCIN BASE] Penicillins [PENICILLINS] Allergy Unknown I-RASH Verified 06/09/23 13:53 bupropion [BUPROPION] AdvReac Severe Hallucinati Verified 06/09/23 13:53 ng duloxetine [DULOXETINE] AdvReac Severe Hallucinati Verified 06/09/23 13:53 ng pregabalin [PREGABALIN] AdvReac Severe Hallucinati Verified 06/09/23 13:53 ng celecoxib [From CELEBREX] AdvReac Mild Vomiting Verified 06/09/23 13:53 Assessment and Plan *Assessment and plan (1) Anxiety and depression: Status: Acute Category: Medical Code(s): F41.9 - Anxiety disorder, unspecified; F32.A - Depression, unspecified Plan No change today. -Dr. Chang increased her zoloft upon admission to the hospital this time Schedule follow-up with Emiliano Wong for individual therapy upon discharge. -she states that she needs someone to talk to -they can do virtual appointments Give her the 988 number; so that if she is feeling down or depressed at home; she can call and talk to someone.
[2023-06-14 16:58] LABS: POC Glucose,Bedside 119 (70-110)
--- NOTE | 2023-06-14 18:18 | PC.NURSE ---
Addendum entered by Milana Piznon RN 06/14/23 18:23: annagi decreased o2 to 2lnc, pt has tolerated well with sats around 97%. Original Note: pt has been up to chair majority of shift. removed fong, tolerated well and voided after. pt stated she does not want to go to rehab for therapy instead she intends to go home at [place] so she is able to attend her granddaughters graduation. pt has ate well t/o the day, also calling dietary off her personal phone requesting certain foods. cb within reach, no needs at this time.
[2023-06-14 20:36] LABS: Adenovirus,PCR Not Detected (NotDetected); Coronavirus 19, PCR Not Detected (NotDetected); Coronavirus 229E Not Detected (NotDetected); Coronavirus NL63 Not Detected (NotDetected); Coronavirus OC43 Not Detected (NotDetected); Coronovirus HKU1,PCR Not Detected (NotDetected); Human Metapneumovirus Not Detected (NotDetected); Influenza A, PCR Not Detected (NotDetected); Influenza AH1, 2009 Not Detected (NotDetected); Influenza AH1, PCR Not Detected (NotDetected); Influenza AH3,PCR Not Detected (NotDetected); Influenza B, PCR Not Detected (NotDetected); Parainfluenza 1, PCR Not Detected (NotDetected); Parainfluenza 2, PCR Not Detected (NotDetected); Parainfluenza 3, PCR Not Detected (NotDetected); Parainfluenza 4, PCR Not Detected (NotDetected); Respiratory Syncytial Virus Not Detected (NotDetected); Rhinovirus/Enterovirus Not Detected (NotDetected)
[2023-06-14] MEDS: ATORVASTATIN 10MG TABLET 10 MG PO (20:49)
[2023-06-14] MEDS: QUETIAPINE 25MG TABLET 50 MG PO (20:50)
[2023-06-14] MEDS: PANTOPRAZOLE 40MG TABLET 40 MG PO (20:50)
[2023-06-14 21:15] LABS: POC Glucose,Bedside 136 (70-110)
[2023-06-15] VITALS (7 sets, daily range): BP systolic 122–149; BP diastolic 58–81; PULSE 74–83; RESP 16–20; TEMP 36.4–36.8; O2SAT 95–99; BMI 25.5
[2023-06-15 00:33] LABS: POC Glucose,Bedside 200 (70-110)
--- NOTE | 2023-06-15 00:43 | PC.NURSE ---
PATIENT UP IN CAHIR WATCHING TV, LEGS ELEVATED. DENIES PAIN. A/O X 4/ HAS COARSE EXP WHEEZES BILAT AND A FEW SCATTERED CRACKLES AT LOWER BASES. 2-3 + EDEMA LOWER LEGS AND FEET L>R.02 AT 2LNC. 02 SAT 95% ON 02.
--- NOTE | 2023-06-15 04:33 | PC.NURSE ---
RECEIVED VERBAL REPORT FROM KAELYN KINCAID AT 2130.
[2023-06-15 05:34] LABS: POC Glucose,Bedside 165 (70-110)
[2023-06-15] MEDS: humaLOG 100 UNITS/ML 3ML VIAL (SSI) SQ ×2 (05:37→11:30)
[2023-06-15] MEDS: OXYCODONE 7.5MG W/APAP 325MG TABLET 1 EACH PO ×4 (05:38→21:14)
[2023-06-15] MEDS: LEVALBUTEROL 1.25MG/3ML NEB 1.25 MG IH ×4 (06:13→21:55)
[2023-06-15] MEDS: FLUTICASONE/UMECLIDIN/VILANTER 100/62.5/25MCG INHALER 1 PUFF IH (06:13)
[2023-06-15 06:39] LABS: Basophils # 0.1 K/mm3 (0-0.2); Basophils % 0.8 % (0.1-2.0); Eosinophils # 0.2 K/mm3 (0.0-0.4); Eosinophils % 1.9 % (0.1-12.0); Hematocrit 38.1 % (37.0-47.0); Hemoglobin 11.6 g/dL (12.2-16.2); Lymphocytes # 3.8 K/mm3 (0.7-4.5); Lymphocytes % 32.3 % (10-50); Mean Corpuscular HGB Conc 30.6 g/dL (31.8-35.4); Mean Corpuscular Hemoglobin 27.8 pg (27.0-31.2); Mean Corpuscular Volume 90.8 fl (81-99); Mean Platelet Volume 7.8 fl (7.4-10.4); Monocytes # 0.8 K/mm3 (0.1-1.0); Monocytes % 6.9 % (1.7-9.3); Neutrophils # 6.8 K/mm3 (1.8-7.8); Platelet Count 307 K/mm3 (142-424); Red Cell Distribution Width 16.3 % (11.5-17.5); White Blood Count 11.7 K/mm3 (4.8-10.8)
[2023-06-15 06:43] LABS: Alanine Aminotransferase 49 U/L (12-78); Albumin Level 3.2 g/dl (3.5-5.0); Albumin/Globulin Ratio 0.9 (1.1-1.8); Alkaline Phosphatase 150 U/L (38-126); Aspartate Amino Transferase 76 U/L (14-36); Bilirubin,Total 0.4 mg/dl (0.2-1.3); Blood Urea Nitrogen 44 mg/dl (7-17); Calcium 8.9 mg/dl (8.4-10.2); Carbon Dioxide 27 mmol/L (22.0-30.0); Chloride 110 mmol/L (98-107); Creatinine Clearance Estimated 37 mL/min (50-200); Estimated Glomerular Filt Rate 30 ml/min (>60); GFR (African American) 37 ML/MIN (>60); Globulin 3.4 g/dL (1.3-3.2); Glucose 195 mg/dl (74-100); Magnesium 1.9 mg/dl (1.6-2.3); Sodium 141 mmol/L (136-145); Total Protein,Serum 6.6 g/dl (6.3-8.2)
--- NOTE | 2023-06-15 07:03 | PC.NURSE ---
LAB CALLS WITH CRITICAL LAB LEVEL POTASSIUM 6. DR WONG NOTIFIED. NO NEW ORDERS AT THIS TIME.
[2023-06-15] MEDS: BUMETANIDE 1MG/4ML VIAL 1 MG IV ×2 (09:15→16:34)
[2023-06-15] MEDS: METOPROLOL TARTRATE 25MG TABLET 12.5 MG PO ×2 (09:15→21:15)
[2023-06-15] MEDS: INSULIN GLARGINE 100 UNITS/ML 3ML FLEXPEN 9 UNIT SQ ×2 (09:15→17:30)
[2023-06-15] MEDS: DAPAGLIFLOZIN PROPANEDIOL 10 MG TABLET PO (09:16)
[2023-06-15] MEDS: APIXABAN 5MG TABLET 5 MG PO ×2 (09:16→21:13)
[2023-06-15] MEDS: ISOSORBIDE MONO 30MG TAB.ER.24H 30 MG PO (09:16)
[2023-06-15] MEDS: METFORMIN 500MG TABLET 1000 MG PO ×2 (09:16→17:30)
[2023-06-15] MEDS: SERTRALINE 100MG TABLET 200 MG PO (09:16)
[2023-06-15] MEDS: GABAPENTIN 300MG CAPSULE 300 MG PO ×2 (09:16→21:13)
[2023-06-15] MEDS: NICOTINE 21MG/24HR PATCH 21 MG TD (09:16)
[2023-06-15] MEDS: DOXYCYCLINE HYCLATE 100 MG in 0.9 % SODIUM CHLORIDE 250 ML 166.667000000000002 MG IV ×2 (09:17→21:19)
[2023-06-15] MEDS: FAMOTIDINE 20MG TABLET 20 MG PO (09:17)
[2023-06-15] MEDS: MAGNESIUM OXIDE 400MG TABLET 400 MG PO ×2 (09:17→21:13)
[2023-06-15] MEDS: BUSPIRONE HCL 10 MG TABLET PO ×2 (09:17→21:14)
--- NOTE | 2023-06-15 09:28 | P.PN_ITS ---
Subjective *Date: 06/15/23 *Time: 11:20 Interval history: No acute respiratory events overnight. Patient admits worsening respiratory distress. Pulmonology Exam Inpatient Vital signs and Labs for Last 24 Hours: Temp Pulse Resp BP Pulse Ox O2 Del Method O2 Flow Rate 98.2 F 80 19 134/74 96 Nasal Cannula 2 06/15/23 08:00 06/15/23 08:00 06/15/23 08:00 06/15/23 08:00 06/15/23 08:00 06/15/23 08:00 06/15/23 08:00 FiO2 28 06/14/23 21:31 Laboratory Results - last 24 hr 06/14/23 01:41: Chlamy pneumoniae PCR TNP, Adenovirus (PCR) Not detected, B. pertussis DNA (PCR) TNP, Coronavirus OC43 (PCR) Not detected, Coronavirus HKU1 (PCR) Not detected, Coronavirus 229E (PCR) Not detected, SARS-CoV-2 (PCR) Not detected, Coronavirus NL63 (PCR) Not detected, Human Metapneumovir PCR Not detected, Influenza A (H1) PCR Not detected, Influ A (H1N1/09) PCR Not detected, Influenza A (H3) PCR Not detected, Influenza Type A (PCR) Not detected, Influenza Type B (PCR) Not detected, M. pneumoniae (PCR) TNP, Parainfluenza 1 (PCR) Not detected, Parainfluenza 2 (PCR) Not detected, Parainfluenza 3 (PCR) Not detected, Parainfluenza 4 (PCR) Not detected, RSV (PCR) Not detected, Entero/Rhino (PCR) Not detected 06/14/23 10:40: POC Glucose 359 H* 06/14/23 16:13: POC Glucose 119 H 06/14/23 21:02: POC Glucose 136 H 06/14/23 23:55: POC Glucose 200 H 06/15/23 05:27: POC Glucose 165 H 06/15/23 05:55: WBC 11.7 H, RBC 4.20, Hgb 11.6 L, Hct 38.1, MCV 90.8, MCH 27.8, MCHC 30.6 L, RDW 16.3, Plt Count 307, MPV 7.8, Neut % (Auto) 58.0, Lymph % (Auto) 32.3, [place] % (Auto) 6.9, Eos % (Auto) 1.9, Baso % (Auto) 0.8, Neut # (Auto) 6.8, Lymph # (Auto) 3.8, [place] # (Auto) 0.8, Eos # (Auto) 0.2, Baso # (Auto) 0.1, Sodium 141, Potassium 6.0 H, Chloride 110 H, Carbon Dioxide 27, Anion Gap 10.0, BUN 44 H D, Creatinine 1.70 H D, Estimated Creat Clear 37, Estimated GFR 30 L, Est GFR ( Amer) 37 L, Glucose 195 H, Calcium 8.9, Magnesium 1.9 D, Total Bilirubin 0.4, AST 76 H, ALT 49, Alkaline Phosphatase 150 H, Total Protein 6.6, Albumin 3.2 L D, Globulin 3.4 H, Albumin/Globulin Ratio 0.9 L Temp Pulse Resp BP Pulse Ox O2 Del Method O2 Flow Rate 98.2 F 90 24 126/68 97 Nasal Cannula 3 06/14/23 07:47 06/14/23 08:00 06/14/23 07:47 06/14/23 07:47 06/14/23 07:47 06/14/23 09:00 06/14/23 07:47 FiO2 40 06/13/23 22:28 Laboratory Results - last 24 hr 06/13/23 22:00: WBC 12.2 H, RBC 4.59, Hgb 13.2, Hct 43.7, MCV 95.2, MCH 28.8, MCHC 30.2 L, RDW 16.3, Plt Count 304, MPV 7.8, Neut % (Auto) 61.7, Lymph % (Auto) 29.2, Coryell % (Auto) 6.1, Eos % (Auto) 1.9, Baso % (Auto) 1.1, Neut # (Auto) 7.5, Lymph # (Auto) 3.6, [place]ell # (Auto) 0.8, Eos # (Auto) 0.2, Baso # (Auto) 0.1, Sodium 142, Potassium 4.9, Chloride 111 H, Carbon Dioxide 27, Anion Gap 8.9, BUN 25 H, Creatinine 1.00, Estimated Creat Clear 68, Estimated GFR 56 L , Est GFR ( Amer) 68, Glucose 174 H, Calcium 9.3, Total Bilirubin 0.7, AST 78 H, ALT 54, Alkaline Phosphatase 130 H, Troponin I < 0.01, NT-Pro-B Natriuret Pep 2360 H, Total Protein 7.4 D, Albumin 3.6, Globulin 3.8 H, Albumin/Globulin Ratio 0.9 L 06/13/23 22:06: VBG pH 7.29 L, VBG pCO2 47.9, VBG pO2 27.8 L, VBG HCO3 22.4 L, VBG Total CO2 23.8, VBG O2 Saturation 51.9, VBG Base Excess -4.3 L, VBG Lactic Acid 2.5 H 06/13/23 22:27: Urine Color Yellow, Urine Appearance Clear, Urine pH 5.5, Ur Specific [place] 1.025, Urine Protein 2+, Urine Glucose (UA) Negative, Urine Ketones Negative, Urine Blood 1+, Urine Nitrate Negative, Urine Bilirubin Negative, Urine Urobilinogen 0.2, Ur Leukocyte Esterase Negative, Urine RBC Occasional, Urine WBC None, Ur Squamous Epith Cells None, Urine Bacteria None 06/13/23 23:26: VBG pH 7.42 H, VBG pCO2 33.8 L, VBG pO2 33.4, VBG HCO3 21.3 L, VBG Total CO2 22.4 L, VBG O2 Saturation 69.6, VBG Base Excess -3.2 L, VBG Lactic Acid 4.5 H 06/14/23 01:40: Lactate 4.2 H, Troponin I < 0.01 06/14/23 01:41: SARS-CoV-2 (PCR) Not detected, Influenza A Untype (PCR) Not detected, Influenza Type B (PCR) Not detected 06/14/23 04:15: WBC 13.1 H, RBC 3.84 L, Hgb 10.9 L D, Hct 35.5 L, MCV 92.2, MCH 28.3, MCHC 30.7 L, RDW 16.3, Plt Count 270, MPV 8.2, Neut % (Auto) 93.1 H, Lymph % (Auto) 4.6 L, [place] % (Auto) 1.7, Eos % (Auto) 0.1, Baso % (Auto) 0.5, Neut # (Auto) 12.2 H, Lymph # (Auto) 0.6 L, Coryell # (Auto) 0.2, Eos # (Auto) 0.0, Baso # (Auto) 0.1, Total Counted 100, Neutrophils % (Manual) 96 H, Lymphocytes % (Manual) 3 L, Monocytes % (Manual) 1 L, Platelet Estimate Normal, RBC Morphology Normal, Sodium 138, Potassium 5.1, Chloride 110 H, Carbon Dioxide 18 L, Anion Gap 15.1 H, BUN 27 H, Creatinine 1.40 H D, Estimated Creat Clear 49, Estimated GFR 38 L, Est GFR ( Amer) 46 L D, Glucose 407 H* D, Lactate 5.8 H, Calcium 8.6, Magnesium 1.1 L, Total Bilirubin 0.5, AST 82 H, ALT 60, Alkaline Phosphatase 131 H, Troponin I < 0.01, Total Protein 6.0 L, Albumin 2.9 L D, Globulin 3.1, Albumin/Globulin Ratio 0.9 L 06/14/23 05:04: POC Glucose 428 H* I & O for Labs for Last 24 Hours: Intake & Output 06/12/23 06/13/23 06/14/23 06/15/23 23:59 23:59 23:59 23:59 Intake Total 590 / 840 610 / 610 Output Total 3100 / 3100 300 / 300 Balance -2510 / -2260 310 / 310 Weight 163 lb 148 lb 4.8 oz 149 lb 9.6 oz Intake & Output 06/11/23 06/12/23 06/13/23 06/14/23 23:59 23:59 23:59 23:59 Intake Total 200 / 200 Output Total 1500 / 1500 Balance -1300 / -1300 Weight 163 lb 148 lb 4.8 oz Constitutional: Present moderate distress Head: Present normocephalic and atraumatic ENT: Present normal exam, normal oropharynx and mucous membranes moist Neck: Present normal inspection and full ROM Respiratory: Present prolonged expiratory phase, respiratory distress, wheezes, diminished air movement and able to speak in complete sentences; Absent crackles Cardiac: Present S1/S2, Tachycardia and radial pulses present GI: Present soft and distention; Absent tenderness or guarding Rectal (female): Present deferred (female): Present deferred Skin: Present intact; Absent cyanosis or jaundice Neuro: Present alert, awake and oriented x 3 Extremities: Present normal inspection and edema; Absent clubbing or cyanosis Psychiatric: Present normal affect and cooperative Assessment and Plan *Assessment and plan (1) COPD mixed type: Status: Acute Category: Medical Code(s): J44.9 - Chronic obstructive pulmonary disease, unspecified (2) Chronic respiratory failure with hypoxia: Status: Acute Category: Medical Code(s): J96.11 - Chronic respiratory failure with hypoxia Plan Ms. Bartlett is a 63-year-old female current smoker greater than 30 PPD, COPD, chronic hypoxic respiratory failure on 3 L oxygen supplementation at baseline recently seen in the hospital multitude of complaints including worsening respi ratory distress managed for COPD exacerbation and pneumonia discharged home on levofloxacin Trelegy inhaler and prednisone presented to the ER again complaining of Worsening respiratory distress and pulmonary was called for further evaluation and management. On admission, afebrile. Hemodynamically stable. Mild leukocytosis. Venous blood gas upon admission did not show any evidence of hypercarbic respiratory failure, pH is 7.29 with a pCO2 47.9. Patient was initiated on BiPAP therapy and subsequent blood gases showed respiratory alkalosis. COVID-19 and flu PCR panel negative. CT chest on admission continue to show decrease centrilobular emphysematous changes. Upper lobe predominant subpleural thickening appears to be chronic when compared to her CT from January 2021. Continued show dilated pulmonary artery consistent with pulmonary hypertension. MIld increase GGO attenuation / air trapping noted On initial examination patient appeared to be in mild respiratory distress with diffuse wheezing noted on auscultation. Oxygen requirements at baseline. Interval update: No acute respiratory vents overnight. Was evaluated by behavioral health for anxiety issues Worsening respiratory distress on examination along with worsening wheezing. Stable oxygen requirements. Worsening lower extremity edema. Lab abnormalities concerning for worsening RAGHAV, creatinine along with hyperkalem ia Plan: Incentive spirometry and flutter valve DuoNebs every 4 hours along with Pulmicort every 12 scheduled Will hold off on initiating steroids at this point of time Continue doxycycline x 3 days Follow-up comprehensive respiratory viral PCR panel # Thank you for involving pulmonary in this patient care. Will continue to follow.
--- NOTE | 2023-06-15 09:39 | CA_ITS ---
FINAL REPORT CLINICAL HISTORY: pedal edema, CHF, COPD, swelling FINDINGS: DUPLEX VENOUS SONOGRAPHY OF THE LEFT LOWER EXTREMITY History: Pain and swelling FINDINGS: Multiple transverse and longitudinal scans were performed of the femoropopliteal deep venous system, with augmentation and compression maneuvers. Normal phasic flow was noted in the visualized deep venous system. No intraluminal increased echogenicity is noted to suggest thrombus. There is normal compression and augmentation of the venous structures. No abnormal venous collaterals are seen. IMPRESSION: No evidence of deep venous thrombosis of the left lower extremity. DUPLEX VENOUS SONOGRAPHY OF THE RIGHT LOWER EXTREMITY HISTORY: Right leg pain and swelling FINDINGS: Multiple transverse and longitudinal scans were performed of the femoropopliteal deep venous system, with augmentation and compression maneuvers. Normal phasic flow was noted in the visualized deep venous system. No intraluminal increased echogenicity is noted to suggest thrombus. There is normal compression and augmentation of the venous structures. No abnormal venous collaterals are seen. IMPRESSION: No evidence of deep venous thrombosis of the right lower extremity. Authenticated and ERN
[2023-06-15] MEDS: LOKELMA 5GM PACKET 10 GM PO (10:54)
[2023-06-15] MEDS: hydrOXYzine pamoate 25MG CAPSULE 25 MG PO ×2 (10:54→21:13)
[2023-06-15 11:03] LABS: POC Glucose,Bedside 242 (70-110)
--- NOTE | 2023-06-15 12:41 | EXP.CARD.PN ---
Subjective Subjective Date: 06/15/23 Time: 09:00 Principal diagnosis: HFpEF Interval history: Is a 63-year-old white female who presented to the emergency department complaints of shortness of breath. The patient has been admitted for an acute exacerbation of chronic HFpEF and a COPD exacerbation. She states that her shortness of breath is no better today. She states that she is still feeling significantly short of breath at rest. It is worse with exertion. It improves with rest. She states that her legs just feel very weak and she has no energy to do anything at all. Exam Data for Last 24 hours Vital signs and Labs for Last 24 Hours: Temp Pulse Resp BP Pulse Ox O2 Del Method O2 Flow Rate 98.2 F 80 19 134/74 96 Nasal Cannula 2 06/15/23 08:00 06/15/23 08:00 06/15/23 08:00 06/15/23 08:00 06/15/23 08:00 06/15/23 11:00 06/15/23 11:00 FiO2 28 06/14/23 21:31 Laboratory Results - last 24 hr 06/14/23 01:41: Chlamy pneumoniae PCR TNP, Adenovirus (PCR) Not detected, B. pertussis DNA (PCR) TNP, Coronavirus OC43 (PCR) Not detected, Coronavirus HKU1 (PCR) Not detected, Coronavirus 229E (PCR) Not detected, SARS-CoV-2 (PCR) Not detected, Coronavirus NL63 (PCR) Not detected, Human Metapneumovir PCR Not detected, Influenza A (H1) PCR Not detected, Influ A (H1N1/09) PCR Not detected, Influenza A (H3) PCR Not detected, Influenza Type A (PCR) Not detected, Influenza Type B (PCR) Not detected, M. pneumoniae (PCR) TNP, Parainfluenza 1 (PCR) Not detected, Parainfluenza 2 (PCR) Not detected, Parainfluenza 3 (PCR) Not detected, Parainfluenza 4 (PCR) Not detected, RSV (PCR) Not detected, Entero/Rhino (PCR) Not detected 06/14/23 16:13: POC Glucose 119 H 06/14/23 21:02: POC Glucose 136 H 06/14/23 23:55: POC Glucose 200 H 06/15/23 05:27: POC Glucose 165 H 06/15/23 05:55: WBC 11.7 H, RBC 4.20, Hgb 11.6 L, Hct 38.1, MCV 90.8, MCH 27.8, MCHC 30.6 L, RDW 16.3, Plt Count 307, MPV 7.8, Neut % (Auto) 58.0, Lymph % (Auto) 32.3, [place] % (Auto) 6.9, Eos % (Auto) 1.9, Baso % (Auto) 0.8, Neut # (Auto) 6.8, Lymph # (Auto) 3.8, [place] # (Auto) 0.8, Eos # (Auto) 0.2, Baso # (Auto) 0.1, Sodium 141, Potassium 6.0 H, Chloride 110 H, Carbon Dioxide 27, Anion Gap 10.0, BUN 44 H D, Creatinine 1.70 H D, Estimated Creat Clear 37, Estimated GFR 30 L, Est GFR ( Amer) 37 L, Glucose 195 H, Calcium 8.9, Magnesium 1.9 D, Total Bilirubin 0.4, AST 76 H, ALT 49, Alkaline Phosphatase 150 H, Total Protein 6.6, Albumin 3.2 L D, Globulin 3.4 H, Albumin/Globulin Ratio 0.9 L 06/15/23 10:56: POC Glucose 242 H I & O for Last 24 hours: Intake & Output 06/12/23 06/13/23 06/14/23 06/15/23 23:59 23:59 23:59 23:59 Intake Total 590 / 840 610 / 610 Output Total 3100 / 3100 300 / 300 Balance -2510 / -2260 310 / 310 Weight 163 lb 148 lb 4.8 oz 149 lb 9.6 oz Constitutional Constitutional: no acute distress and average body habitus *Routine HEENT Exam Head: Present normocephalic and atraumatic ENT: Present mucous membranes moist *Routine Neck Exam Neck: Present supple, full ROM and normal carotid upstroke; Absent JVD, carotid bruit or lymphadenopathy *Routine Respiratory Exam Respiratory: Present rales, rhonchi, wheezes (Inspiratory and expiratory wheezing noted throughout), diminished air movement and other (cough); Absent able to speak in complete sentences *Routine Cardiovascular Exam Cardiovascular: Present RRR, Normal S1 and Normal S2; Absent murmur or gallop *Routine Abdominal Exam Abdominal: Present soft and normoactive bowel sounds; Absent tenderness, distended or organomegaly *Routine Extremities Exam Extremities: Present edema (2+ BLE edema), full ROM, pulses intact and normal capillary refill; Absent cyanosis or clubbing *Routine Skin Exam Skin: Present intact and warm; Absent erythema *Routine Neurological Exam Neurological: Present alert, oriented X3 and CN II-XII intact; Absent sensory deficit or motor deficit Routine Psychiatric Exam Psychiatric: Present normal affect Progress Note: A&P Assessment and plan (1) Acute on chronic heart failure with preserved ejection fraction (HFpEF): Status: Acute (2) COPD mixed type: Status: Acute (3) Chronic respiratory failure with hypoxia: Status: Acute (4) Elevated liver enzymes: Status: Acute (5) Paroxysmal atrial fibrillation: Status: Acute (6) Bilateral edema of lower extremity: Status: Acute (7) Shortness of breath: Status: Acute (8) Tobacco use: Status: Acute (9) HTN (hypertension): Status: Chronic (10) Diabetes mellitus, type 2: Problem details: We tried to send this patient to endocrinology but she has been in the hospital and had multiple other problems. She cannot get the 70[address] her on glargine at 9 units twice daily. This may not be enough but I do not want to overshoot. Will see her back in approximately 2 to 3 weeks. I have suggested that they check blood sugars write them down and bring them in with her at her next visit. Status: Acute (11) Hyperkalemia: Status: Acute Assessment and Plan Assessment and Plan for All Diagnoses:: Plan: 1. The patient was admitted to the hospital with acute on chronic respiratory failure. She is currently having a COPD exacerbation. She has been started on IV antibiotics. She is having a worsening cough today. Will repeat a chest x-ray. 2. The patient is also currently being treated for an acute on chronic exacerbation of HFpEF. Continue IV diuretics at this time for continued diuresis. She does have an -2 L fluid balance. 3. Her creatinine is up to 1.7. Will continue to follow her renal function closely but she still has signs of fluid overload and needs to continue to be diuresed. Will likely convert her over to oral diuretics tomorrow. 4. The patient is hyperkalemic today with a potassium of 6.0. Will repeat a BMP around 1 PM this afternoon. And repeat a BMP in the morning. 5. The patient did have an elevated lactic acid on admission. Will repeat her lactic acid in the morning as well. 6. Her blood pressure is well-controlled. 7. Her LDL goal is less than 55. Her LDL was 60 in May 2023. She is on a statin. 8. Continue metoprolol and Farxiga for her HFpEF. 9. No ARTUR/ARB/Entresto at this time due to her renal function. Once she is euvolemic and if her renal function has improved then we can consider adding an ARTUR/ARB/Entresto at that time. 10. The patient does have a history of paroxysmal atrial fibrillation. She is currently in sinus rhythm. She is on Eliquis for long-term anticoagulation. She denies bleeding. 11. The patient is diabetic and will need aggressive control of her diabetes. Will defer management this to the hospitalist. 12. Her liver enzymes remain elevated. Will repeat this in the morning. 13. Further recommendations will be made pending the patient's response to treatment. Thank you for the opportunity to participate in the care of this patient. All recommendations and orders are per Dr. Jay.
--- NOTE | 2023-06-15 13:11 | XR_ITS ---
PROCEDURE INFORMATION: Exam: XR Chest Exam date and time: 06/15/2023 2:11 PM Age: 63 years old Clinical indication: Cough and shortness of breath; Additional info: SOB, cough TECHNIQUE: Imaging protocol: Radiologic exam of the chest. Views: 1 view. COMPARISON: CT CHEST WO CON 06/14/2023 12:10 AM and chest x-ray 10/15/2021 FINDINGS: Lungs: Scattered coarsened interstitial is small nodular opacities upper lung zones relatively stable from studies dating back to 2021 and believed chronic. No acute infiltrates or overt CHF detected. Pleural spaces: Unremarkable. No pleural effusion. No pneumothorax. Heart/Mediastinum: Cardiac silhouette is not enlarged. Bones/joints: Unremarkable for age. IMPRESSION: Chronic upper lobe interstitial/micronodular markings stable from 2021. No active disease.
[2023-06-15 14:01] LABS: Anion Gap 11.9 mEq/L (5-15); Blood Urea Nitrogen 47 mg/dl (7-17); Carbon Dioxide 27 mmol/L (22.0-30.0); Chloride 111 mmol/L (98-107); Creatinine Clearance Estimated 35 mL/min (50-200); Estimated Glomerular Filt Rate 29 ml/min (>60); GFR (African American) 34 ML/MIN (>60); Glucose 63 mg/dl (74-100); Potassium 5.9 mmoL/L (3.5-5.1); Sodium 144 mmol/L (136-145)
--- NOTE | 2023-06-15 15:01 | EXP.PN ---
Subjective *Date: 06/15/23 *Time: 15:01 Interval history: patient is seen and evaluated at bedside she has complains of leg swelling, denied CP, SOB, fever Exam Data for Last 24 hours Vital signs and Labs for Last 24 Hours: Temp Pulse Resp BP Pulse Ox O2 Del Method O2 Flow Rate 98.2 F 82 19 134/74 96 Room Air 2 06/15/23 08:00 06/15/23 13:48 06/15/23 08:00 06/15/23 08:00 06/15/23 08:00 06/15/23 13:00 06/15/23 11:00 FiO2 28 06/14/23 21:31 Laboratory Results - last 24 hr 06/14/23 01:41: Chlamy pneumoniae PCR TNP, Adenovirus (PCR) Not detected, B. pertussis DNA (PCR) TNP, Coronavirus OC43 (PCR) Not detected, Coronavirus HKU1 (PCR) Not detected, Coronavirus 229E (PCR) Not detected, SARS-CoV-2 (PCR) Not detected, Coronavirus NL63 (PCR) Not detected, Human Metapneumovir PCR Not detected, Influenza A (H1) PCR Not detected, Influ A (H1N1/09) PCR Not detected, Influenza A (H3) PCR Not detected, Influenza Type A (PCR) Not detected, Influenza Type B (PCR) Not detected, M. pneumoniae (PCR) TNP, Parainfluenza 1 (PCR) Not detected, Parainfluenza 2 (PCR) Not detected, Parainfluenza 3 (PCR) Not detected, Parainfluenza 4 (PCR) Not detected, RSV (PCR) Not detected, Entero/Rhino (PCR) Not detected 06/14/23 16:13: POC Glucose 119 H 06/14/23 21:02: POC Glucose 136 H 06/14/23 23:55: POC Glucose 200 H 06/15/23 05:27: POC Glucose 165 H 06/15/23 05:55: WBC 11.7 H, RBC 4.20, Hgb 11.6 L, Hct 38.1, MCV 90.8, MCH 27.8, MCHC 30.6 L, RDW 16.3, Plt Count 307, MPV 7.8, Neut % (Auto) 58.0, Lymph % (Auto) 32.3, [place] % (Auto) 6.9, Eos % (Auto) 1.9, Baso % (Auto) 0.8, Neut # (Auto) 6.8, Lymph # (Auto) 3.8, [place] # (Auto) 0.8, Eos # (Auto) 0.2, Baso # (Auto) 0.1, Sodium 141, Potassium 6.0 H, Chloride 110 H, Carbon Dioxide 27, Anion Gap 10.0, BUN 44 H D, Creatinine 1.70 H D, Estimated Creat Clear 37, Estimated GFR 30 L, Est GFR ( Amer) 37 L, Glucose 195 H, Calcium 8.9, Magnesium 1.9 D, Total Bilirubin 0.4, AST 76 H, ALT 49, Alkaline Phosphatase 150 H, Total Protein 6.6, Albumin 3.2 L D, Globulin 3.4 H, Albumin/Globulin Ratio 0.9 L 06/15/23 10:56: POC Glucose 242 H 06/15/23 13:35: Sodium 144, Potassium 5.9 H, Chloride 111 H, Carbon Dioxide 27, Anion Gap 11.9, BUN 47 H, Creatinine 1.80 H, Estimated Creat Clear 35, Estimated GFR 29 L, Est GFR ( Amer) 34 L, Glucose 63 L D, Calcium 9.0 I & O for Last 24 hours: Intake & Output 06/12/23 06/13/23 06/14/23 06/15/23 23:59 23:59 23:59 23:59 Intake Total 590 / 840 970 / 970 Output Total 3100 / 3100 300 / 300 Balance -2510 / -2260 670 / 670 Weight 73.936 kg 67.268 kg 67.85 kg Constitutional Constitutional: no acute distress and average body habitus *Routine HEENT Exam Head: Present normocephalic and atraumatic ENT: Present mucous membranes moist *Routine Neck Exam Neck: Present supple, full ROM and normal carotid upstroke; Absent JVD, carotid bruit or lymphadenopathy *Routine Respiratory Exam Respiratory: Present rales, rhonchi, wheezes (Inspiratory and expiratory wheezing noted throughout), diminished air movement and other (cough); Absent able to speak in complete sentences *Routine Cardiovascular Exam Cardiovascular: Present RRR, Normal S1 and Normal S2; Absent murmur or gallop *Routine Abdominal Exam Abdominal: Present soft and normoactive bowel sounds; Absent tenderness, distended or organomegaly *Routine Extremities Exam Extremities: Present edema (2+ BLE edema), full ROM, pulses intact and normal capillary refill; Absent cyanosis or clubbing *Routine Skin Exam Skin: Present intact and warm; Absent erythema *Routine Neurological Exam Neurological: Present alert, oriented X3 and CN II-XII intact; Absent sensory deficit or motor deficit Routine Psychiatric Exam Psychiatric: Present normal affect Assessment and Plan *Assessment and plan (1) Acute and chronic respiratory failure with hypoxia: Status: Acute Category: Medical Code(s): J96.21 - Acute and chronic respiratory failure with hypoxia (2) Acute on chronic diastolic (congestive) heart failure: Status: Acute Category: Medical Code(s): I50.33 - Acute on chronic diastolic (congestive) heart failure (3) Chronic respiratory failure: Status: Acute Category: Medical Code(s): J96.10 - Chronic respiratory failure, unspecified whether with hypoxia or hypercapnia (4) Acute exacerbation of chronic obstructive pulmonary disease: Status: Acute Category: Medical Code(s): J44.1 - Chronic obstructive pulmonary disease with (acute) exacerbation (5) Paroxysmal atrial fibrillation: Status: Acute Category: Medical Code(s): I48.0 - Paroxysmal atrial fibrillation (6) Anxiety and depression: Status: Acute Category: Medical Code(s): F41.9 - Anxiety disorder, unspecified; F32.A - Depression, unspecified (7) Tobacco use: Status: Acute Category: Social Hx Code(s): Z72.0 - Tobacco use (8) Type 2 diabetes mellitus with hyperglycemia: Status: Chronic Qualifiers: Diabetes mellitus termite control technician insulin use: without termite control technician use Qualified Code(s): E11.65 - Type 2 diabetes mellitus with hyperglycemia Category: Medical Code(s): E11.65 - Type 2 diabetes mellitus with hyperglycemia (9) HTN (hypertension): Status: Chronic Qualifiers: Hypertension type: essential hypertension Qualified Code(s): I10 - Essential (primary) hypertension Category: Medical Code(s): I10 - Essential (primary) hypertension Plan Ms. Bartlett is a 63-year-old female with chronic hypoxemic respiratory failure, chronic anticoagulation, poorly controlled diabetes, chronic pain, anxiety. Presented with shortness of breath and increased swelling in legs. Concern for acute on chronic hypoxemic respiratory failure due to CHF exacerbation and COPD exacerbation. Patient continues to smoke excessively 1-1/2 to 2 packs a day. Discussed case with ER, request admission for diuresis and further management. Medicine agreed to admit for further management. Initiated on doxycycline. Will continue these antibiotics for now. Pulmonology, cardiology, behavioral health consulted to assist with care. Concerned that patient severe anxiety underlies her readmission. She smokes heavily due to her anxiety which worsens her COPD and is led to her worsening shortness of breath. Will also have PT and OT evaluate her to evaluate for safety going home. Patient is scared about going to a half-way. Currently lives by herself and is reliant on family to grocery shop for her and check on her. She mobilizes with walker and wheelchair. Necessitating inpatient management. Diuresing well. Weaned to 3 L oxygen. Problems addressed as follows: # Acute on chronic chronic respiratory failure with hypoxia # COPD exacerbation #Acute on chronic diastolic congestive heart failure Acute kidney injury # Nicotine dependence - Goal sats greater 90%. Currently requiring 3 L -Discussed case with cardiology and pulmonology today. Cardiology recommends continuing Bumex for diuresis. Patient -1.5 L so far. In discussion with pulmonology, recommend continuing medical management. Continue doxycycline 100 mg twice daily for 5 days. -Continue Xopenex and ipratropium every 6 hours scheduled, budesonide twice daily - Continue metoprolol 12.5 mg twice daily for blood pressure and rate control. - Continue isosorbide mononitrate as daily, Farxiga 10 mg daily, Lipitor 10 mg nightly, Eliquis 5 mg twice daily - Reports smoking 2 packs a day of cigarettes. nicotine patch daily. - White cell count 13.1 today. Repeat CBC, CMP, magnesium ordered for the morning. -Negative for COVID and flu. # T2DM A1C 8.7 last admission 2 weeks ago Continue farxiga 10 mg daily; continue metformin 1000mg BID Continue Lantus 9 units twice daily Continue sliding scale # Anxiety and depression: - Continue Zoloft, increase to 200 mg daily. continue hydroxyzine 25 mg every 6 hours as needed for anxiety. - Continue Seroquel 25 mg nightly to help with sleep and anxiety - behavioral health consulted and seeing patient today. - continue BuSpar 10 mg twice daily # GERD: Continue home medications with famotidine 20 mg twice daily # Chronic pain: Continue home oxycodone 1 tablet 4 times a day as needed for pain. States compliance with regimen at home Hypomagnesemia: monitor PT and OT working with patient. Would benefit from rehab. Case management assisting with placement recommendations DVT PPx on home Eliquis Full code Diabetic diet B/l LE swelling, ordered US DVT, Cr is worsening, continue to monitor
[2023-06-15 17:48] LABS: POC Glucose,Bedside 114 (70-110)
[2023-06-15 17:48] LABS: POC Glucose,Bedside 124 (70-110)
--- NOTE | 2023-06-15 18:25 | PC.NURSE ---
no issues from previous shift, pt has had multiple bm today. pt is requesting new iv due to irritating location of current iv. pt said she had a really good meal for supper. cb within reach.
[2023-06-15] MEDS: BUDESONIDE 0.5MG/2ML NEB 0.5 MG IH (18:34)
--- NOTE | 2023-06-15 18:53 | PC.NURSE ---
22g iv placed in lt fa. iv in rt ac dc. sputum collected and sent to lab.
[2023-06-15] MEDS: PANTOPRAZOLE 40MG TABLET 40 MG PO (21:13)
[2023-06-15] MEDS: ATORVASTATIN 10MG TABLET 10 MG PO (21:13)
[2023-06-15] MEDS: QUETIAPINE 25MG TABLET 50 MG PO (21:14)
--- NOTE | 2023-06-15 22:29 | PC.NURSE ---
RECEIVED REPORT FROM KAELYN KINCAID AT 2200.
[2023-06-16] VITALS (21 sets, daily range): BP systolic 97–142; BP diastolic 54–85; PULSE 67–86; RESP 16–22; TEMP 36.4–36.8; O2SAT 91–99; BMI 25.7
[2023-06-16] MEDS: LEVALBUTEROL 1.25MG/3ML NEB 1.25 MG IH ×6 (02:01→22:50)
[2023-06-16] MEDS: OXYCODONE 7.5MG W/APAP 325MG TABLET 1 EACH PO ×4 (02:59→21:10)
[2023-06-16] MEDS: humaLOG 100 UNITS/ML 3ML VIAL (SSI) SQ ×3 (05:21→16:39)
[2023-06-16 05:23] LABS: POC Glucose,Bedside 213 (70-110)
[2023-06-16 05:52] LABS: POC Glucose,Bedside 135 (70-110)
[2023-06-16 05:54] LABS: Basophils # 0.1 K/mm3 (0-0.2); Basophils % 0.6 % (0.1-2.0); Eosinophils # 0.2 K/mm3 (0.0-0.4); Eosinophils % 2.9 % (0.1-12.0); Hematocrit 32.6 % (37.0-47.0); Lymphocytes % 35.5 % (10-50); Mean Corpuscular Volume 90.3 fl (81-99); Mean Platelet Volume 8.1 fl (7.4-10.4); Monocytes # 0.7 K/mm3 (0.1-1.0); Monocytes % 7.7 % (1.7-9.3); Neutrophils # 4.5 K/mm3 (1.8-7.8); Neutrophils % 53.2 % (37.0-80.0); Platelet Count 265 K/mm3 (142-424); Red Blood Count 3.61 M/mm3 (4.20-5.40); Red Cell Distribution Width 16.3 % (11.5-17.5); White Blood Count 8.5 K/mm3 (4.8-10.8)
[2023-06-16 05:59] LABS: Hemoglobin 10.1 g/dL (12.2-16.2)
--- NOTE | 2023-06-16 06:00 | XR_ITS ---
PROCEDURE INFORMATION: Exam: XR Chest Exam date and time: 06/16/2023 5:42 AM Age: 63 years old Clinical indication: Cough and shortness of breath; Additional info: SOB, cough TECHNIQUE: Imaging protocol: Radiologic exam of the chest. Views: 1 view. COMPARISON: CR XR CHEST PORTABLE 06/15/2023 2:11 PM FINDINGS: Lungs: Chronic interstitial changes are again present bilaterally not significantly changed from the prior study. Overall examination is stable. Pleural spaces: Unremarkable. No pleural effusion. No pneumothorax. Heart/Mediastinum: Unremarkable. No cardiomegaly. Bones/joints: Unremarkable. IMPRESSION: Chronic interstitial changes are again present bilaterally not significantly changed from the prior study. Overall examination is stable.
[2023-06-16 06:05] LABS: Alanine Aminotransferase 42 U/L (12-78); Albumin Level 2.7 g/dl (3.5-5.0); Albumin/Globulin Ratio 0.9 (1.1-1.8); Alkaline Phosphatase 114 U/L (38-126); Anion Gap 7.5 mEq/L (5-15); Aspartate Amino Transferase 59 U/L (14-36); Bilirubin,Total 0.3 mg/dl (0.2-1.3); Blood Urea Nitrogen 59 mg/dl (7-17); Calcium 8.7 mg/dl (8.4-10.2); Carbon Dioxide 28 mmol/L (22.0-30.0); Chloride 112 mmol/L (98-107); Creatinine Clearance Estimated 37 mL/min (50-200); Estimated Glomerular Filt Rate 30 ml/min (>60); GFR (African American) 37 ML/MIN (>60); Glucose 189 mg/dl (74-100); Sodium 141 mmol/L (136-145); Total Protein,Serum 5.7 g/dl (6.3-8.2)
[2023-06-16 06:06] LABS: Lactic Acid 1.2 mmol/L (0.7-2.1)
[2023-06-16 06:08] LABS: Potassium 6.5 mmoL/L (3.5-5.1)
--- NOTE | 2023-06-16 06:10 | PC.NURSE ---
LAB CALLED WITH CRITICAL POTASSIUM OF 6.5. LUPE SAENZ NP NOTIFIED. NO NEW ORDERS AT THIS TIME.
[2023-06-16 06:19] LABS: Alanine Aminotransferase 41 U/L (12-78); Albumin Level 2.6 g/dl (3.5-5.0); Alkaline Phosphatase 119 U/L (38-126); Aspartate Amino Transferase 59 U/L (14-36); Bilirubin,Direct 0.2 mg/dl (0.0-0.4); Bilirubin,Indirect 0.1 mg/dL (0.0-0.9); Bilirubin,Total 0.3 mg/dl (0.2-1.3); Bilirubin,Unconjugated 0.1 mg/dL (0.0-1.1); Total Protein,Serum 5.3 g/dl (6.3-8.2)
[2023-06-16] MEDS: BUDESONIDE 0.5MG/2ML NEB 0.5 MG IH ×2 (06:33→18:46)
--- NOTE | 2023-06-16 06:57 | PC.NURSE ---
A/O X 4. EDEMA INCREASED TO BLEs. 3+ PITTING LEFT > RIGHT. HAS COARSE WHEEZES THROUGHOUT WITH FINE CRACKLES AT BASES. REPORTS PRODUCTIVE COUGH M SMALL AMTS WHITE.
[2023-06-16] MEDS: METFORMIN 500MG TABLET 1000 MG PO ×2 (07:23→16:39)
[2023-06-16] MEDS: INSULIN GLARGINE 100 UNITS/ML 3ML FLEXPEN 9 UNIT SQ ×2 (07:24→16:37)
[2023-06-16] MEDS: DOXYCYCLINE HYCLATE 100 MG in 0.9 % SODIUM CHLORIDE 250 ML 166.667000000000002 MG IV ×2 (08:33→20:58)
[2023-06-16] MEDS: GABAPENTIN 300MG CAPSULE 300 MG PO ×3 (08:34→20:58)
[2023-06-16] MEDS: ISOSORBIDE MONO 30MG TAB.ER.24H 30 MG PO (08:34)
[2023-06-16] MEDS: DAPAGLIFLOZIN PROPANEDIOL 10 MG TABLET PO (08:34)
[2023-06-16] MEDS: BUSPIRONE HCL 10 MG TABLET PO ×2 (08:34→20:58)
[2023-06-16] MEDS: APIXABAN 5MG TABLET 5 MG PO ×2 (08:34→20:58)
[2023-06-16] MEDS: BUMETANIDE 1MG/4ML VIAL 1 MG IV ×2 (08:34→16:51)
[2023-06-16] MEDS: MAGNESIUM OXIDE 400MG TABLET 400 MG PO ×2 (08:34→20:58)
[2023-06-16] MEDS: SERTRALINE 100MG TABLET 200 MG PO (08:34)
[2023-06-16] MEDS: METOPROLOL TARTRATE 25MG TABLET 12.5 MG PO ×2 (08:35→20:58)
[2023-06-16] MEDS: NICOTINE 21MG/24HR PATCH 21 MG TD (08:48)
[2023-06-16] MEDS: LOKELMA 5GM PACKET 10 GM PO ×2 (09:55→16:58)
[2023-06-16 11:14] LABS: POC Glucose,Bedside 166 (70-110)
--- NOTE | 2023-06-16 12:06 | IR_ITS ---
APPROVED REPORT Patient Location: Inpatient Electric Organ Checker: VASILE Devries RT (R) PROCEDURES Right heart catheterization INDICATION Pulmonary hypertension Informed consent was obtained prior to the procedure. COMPLICATIONS NONE Estimated Blood Loss: LESS THAN 10 ML TECHNIQUE One percent lidocaine was used to anesthetize the right anterior aspect of the neck. A php web developer needle was used to identify the right internal jugular vein. Following this a larger cannulation needle was used to cannulate the right internal jugular vein and a wire was passed into the vein. Prior to the 7 Italian sheath being inserted the wire was confirmed under fluoroscopic guidance to be in the inferior vena cava. A 7 Italian sheath was introduced and a [place] catheter was floated using hemodynamic waveforms in the pulmonary artery, right ventricle , and right atrium. Saturations were obtained in the pulmonary artery and the right atrium. At the end of the procedure the patient was transferred to the postop holding area in stable condition for sheath removal. ANGIOGRAPHIC RESULTS Right atrial pressure 5 mmHg Pulmonary artery pressure 40/15 mmHg Pulmonary artery occlusion pressure 8 mmHg Right atrial saturation 78% Pulmonary artery saturation 74% Hemoglobin 10.1 Aortic saturation 100% Cardiac output 6.1 L/min Cardiac index 3.5 IMPRESSION Mild pulmonary hypertension with normal left-sided filling pressures PLAN 1. Per hospitalist and inpatient cardiology team Electronically signed by : Kaiden Chan MD 06/16/2023 13:39:31
--- NOTE | 2023-06-16 13:20 | P.PN_ITS ---
Subjective Subjective Date: 06/16/23 Time: 10:30 Principal diagnosis: HFpEF Interval history: This is a 63-year-old white female presented to the emergency department complaints of shortness of breath. She was admitted for an acute exacerbation of her chronic HFpEF. She is also being treated for COPD exacerbation. The patient continues to state that her shortness of breath is no better. She states that she feels short of breath essentially all the time and it is worse if she exerts herself or even just stands up. She states that it does improve with rest but does not go away. She states that she is still having a significant amount of wheezing and just does not feel well. Her lower extremity edema has improved on exam but she states that she does not think her edema is any better. She denies any fever, chills, nausea, vomiting, diarrhea. She does have associated orthopnea with her shortness of breath. Exam Data for Last 24 hours Vital signs and Labs for Last 24 Hours: Temp Pulse Resp BP Pulse Ox O2 Del Method O2 Flow Rate 98.2 F 82 22 134/74 97 Nasal Cannula 2 06/16/23 08:00 06/16/23 09:25 06/16/23 08:00 06/16/23 08:00 06/16/23 08:00 06/16/23 11:00 06/16/23 11:00 FiO2 28 06/14/23 21:31 Laboratory Results - last 24 hr 06/15/23 13:35: Sodium 144, Potassium 5.9 H, Chloride 111 H, Carbon Dioxide 27, Anion Gap 11.9, BUN 47 H, Creatinine 1.80 H, Estimated Creat Clear 35, Estimated GFR 29 L, Est GFR ( Amer) 34 L, Glucose 63 L D, Calcium 9.0 06/15/23 16:33: POC Glucose 114 H 06/15/23 17:34: POC Glucose 124 H 06/15/23 21:03: POC Glucose 135 H 06/16/23 05:16: POC Glucose 213 H 06/16/23 05:45: WBC 8.5 D, RBC 3.61 L, Hgb 10.1 L D, Hct 32.6 L, MCV 90.3, MCH 28.0, MCHC 31.0 L, RDW 16.3, Plt Count 265, MPV 8.1, Neut % (Auto) 53.2, Lymph % (Auto) 35.5, [place] % (Auto) 7.7, Eos % (Auto) 2.9, Baso % (Auto) 0.6, Neut # (Auto) 4.5, Lymph # (Auto) 3.0, [place] # (Auto) 0.7, Eos # (Auto) 0.2, Baso # (Auto) 0.1, Sodium 141, Potassium 6.5 H*, Chloride 112 H, Carbon Dioxide 28, Anion Gap 7.5, BUN 59 H D, Creatinine 1.70 H, Estimated Creat Clear 37, Estimated GFR 30 L, Est GFR ( Amer) 37 L, Glucose 189 H D, Lactate 1.2, Calcium 8.7, Total Bilirubin 0.3 06/16/23 05:45: Total Bilirubin 0.3, Direct Bilirubin 0.2, Conjugated Bilirubin 0.0, Indirect Bilirubin 0.1, Unconjugated Bilirubin 0.1, AST 59 H 06/16/23 05:45: AST 59 H, ALT 42 06/16/23 05:45: ALT 41, Alkaline Phosphatase 114 06/16/23 05:45: Alkaline Phosphatase 119, Total Protein 5.7 L 06/16/23 05:45: Total Protein 5.3 L, Albumin 2.7 L D 06/16/23 05:45: Albumin 2.6 L, Globulin 3.0, Albumin/Globulin Ratio 0.9 L 06/16/23 11:05: POC Glucose 166 H I & O for Last 24 hours: Intake & Output 06/13/23 06/14/23 06/15/23 06/16/23 23:59 23:59 23:59 23:59 Intake Total 590 / 840 1220 / 1660 920 / 920 Output Total 3100 / 3100 600 / 1000 701 / 701 Balance -2510 / -2260 620 / 660 219 / 219 Weight 163 lb 148 lb 4.8 oz 149 lb 9.338 oz 150 lb 11.2 oz Constitutional Constitutional: no acute distress, average body habitus and chronically ill appearing *Routine HEENT Exam Head: Present normocephalic and atraumatic ENT: Present mucous membranes moist *Routine Neck Exam Neck: Present supple, full ROM and normal carotid upstroke; Absent JVD, carotid bruit or lymphadenopathy *Routine Respiratory Exam Respiratory: Present rales, rhonchi, wheezes (Inspiratory and expiratory wheezing noted throughout), diminished air movement and other (cough); Absent able to speak in complete sentences *Routine Cardiovascular Exam Cardiovascular: Present RRR, Normal S1 and Normal S2; Absent murmur or gallop *Routine Abdominal Exam Abdominal: Present soft and normoactive bowel sounds; Absent tenderness, distended or organomegaly *Routine Extremities Exam Extremities: Present edema (1-2+ BLE edema), full ROM, pulses intact and normal capillary refill; Absent cyanosis or clubbing *Routine Skin Exam Skin: Present intact and warm; Absent erythema *Routine Neurological Exam Neurological: Present alert, oriented X3 and CN II-XII intact; Absent sensory deficit or motor deficit Routine Psychiatric Exam Psychiatric: Present normal affect Progress Note: A&P Assessment and plan (1) Acute on chronic heart failure with preserved ejection fraction (HFpEF): Status: Acute (2) Bilateral edema of lower extremity: Status: Acute (3) Shortness of breath: Status: Acute (4) Acute and chronic respiratory failure with hypoxia: Status: Acute (5) Chronic respiratory failure: Status: Acute (6) Acute exacerbation of chronic obstructive pulmonary disease: Status: Acute (7) Paroxysmal atrial fibrillation: Status: Acute (8) Anxiety and depression: Status: Acute (9) Tobacco use: Status: Acute (10) Type 2 diabetes mellitus with hyperglycemia: Status: Chronic (11) HTN (hypertension): Status: Chronic (12) Hyperkalemia: Status: Acute (13) Elevated liver enzymes: Status: Acute (14) Cough: Status: Acute Assessment and Plan Assessment and Plan for All Diagnoses:: Plan: 1. The patient was mated to the hospital with acute on chronic respiratory failure and COPD exacerbation. She has been started on IV antibiotics. She states that she is having no improvement in her shortness of breath. Chest x- ray showed that she has chronic interstitial changes with no significant change. She is being followed by pulmonology. Will defer. 2. The patient is currently being treated for an acute on chronic exacerbation of HFpEF. She has continued to remain on IV diuretics. She did have a positive fluid balance overnight last night. She states that despite the continued IV diuretics and breathing treatments her shortness of breath has not improved. She states that she does not feel like her lower extremity edema is improving either. Will plan to proceed with right cardiac catheterization today to evaluate her intracardial pressures to see how much more diuresis the patient will require or to see if her symptoms are from her current pulmonary status. 3. The patient has been educated the risk and benefits of proceeding with right cardiac catheterization. The patient verbalizes understanding and is agreeable in proceeding with the procedure. 4. The patient will be n.p.o. in preparation for right cardiac catheterization today. 5. The patient's creatinine remains elevated at 1.7. Will continue to follow this closely. 6. The patient remains hyperkalemic today with a potassium of 6.5. Will repeat her BMP this afternoon. 7. Her LDL goal is less than 55. Her LDL was 60 in May 2023. She is on a statin. 8. Continue metoprolol and Farxiga for HFpEF. 9. No ARTUR/ARB/Entresto at this time due to her elevated renal function. If her renal function improves when she is euvolemic then we may consider starting an ARTUR/ARB or Entresto. 10. The patient does have a history of paroxysmal atrial fibrillation. She is currently in sinus rhythm. She is on Eliquis for long-term anticoagulation. She denies any bleeding. 11. She is diabetic. She does need aggressive control of her diabetes. Will defer management of this to the hospitalist. 12. Her liver enzymes still remain slightly elevated. Will repeat a liver panel in the morning. 13. The patient's lactate has normalized. 14. Further recommendations will be made pending the patient's response to treatment and the results of her right cardiac catheterization today. Thank you for the opportunity to participate in the care of this patient. All recommendations and orders are per Dr. Jay. Addendum: Right heart cath shows: Right atrial pressure 5 mmHg Pulmonary artery pressure 40/15 mmHg Pulmonary artery occlusion pressure 8 mmHg Right atrial saturation 78% Pulmonary artery saturation 74% Hemoglobin 10.1 Aortic saturation 100% Cardiac output 6.1 L/min Cardiac index 3.5 IMPRESSION Mild pulmonary hypertension with normal left-sided filling pressures PLAN 1. Per hospitalist and inpatient cardiology team The patient is euvolemic or even a little on the dry side. Stop IV Bumex. Start Bumex 1 mg p.o. daily. The patient's respiratory status does not appear cardiac in nature and is most likely stemming from her underlying pulmonary disease. Will defer treatment to pulmonology. No further recommendations at this time from a cardiac standpoint.
[2023-06-16] MEDS: HEPARIN 1,000 UNITS/500ML NS (CATH LAB) 3000 UNIT IV (13:31)
[2023-06-16] MEDS: LIDOCAINE 1% 10ML MDV 20 ML IJ (13:31)
[2023-06-16] MEDS: 0.9 % SODIUM CHLORIDE 500 ML 25 ML IV (13:32)
[2023-06-16] MEDS: FENTANYL 100MCG/2ML VIAL 50 MCG IV (13:44)
[2023-06-16] MEDS: MIDAZOLAM HCL 1MG/1ML 5ML VIAL 1 MG IV (13:44)
[2023-06-16 14:08] LABS: CATHL Arterial O2 SAT 73.9 % (90-100); CATHL Venous O2 SAT 78.2 % (75-80)
[2023-06-16 15:37] LABS: Potassium 6.1 mmoL/L (3.5-5.1)
[2023-06-16 16:30] LABS: POC Glucose,Bedside 286 (70-110)
--- NOTE | 2023-06-16 16:36 | EXP.PN ---
Subjective *Date: 06/16/23 *Time: 16:36 Interval history: she is resting in chair, denied CP, SOB, has leg swelling, no reports of fevers over night Exam Data for Last 24 hours Vital signs and Labs for Last 24 Hours: Temp Pulse Resp BP Pulse Ox O2 Del Method O2 Flow Rate 97.8 F 82 18 120/72 98 Nasal Cannula 2 06/16/23 14:15 06/16/23 14:55 06/16/23 14:45 06/16/23 14:45 06/16/23 14:45 06/16/23 15:00 06/16/23 15:00 FiO2 28 06/14/23 21:31 Laboratory Results - last 24 hr 06/15/23 16:33: POC Glucose 114 H 06/15/23 17:34: POC Glucose 124 H 06/15/23 21:03: POC Glucose 135 H 06/16/23 05:16: POC Glucose 213 H 06/16/23 05:45: WBC 8.5 D, RBC 3.61 L, Hgb 10.1 L D, Hct 32.6 L, MCV 90.3, MCH 28.0, MCHC 31.0 L, RDW 16.3, Plt Count 265, MPV 8.1, Neut % (Auto) 53.2, Lymph % (Auto) 35.5, [place] % (Auto) 7.7, Eos % (Auto) 2.9, Baso % (Auto) 0.6, Neut # (Auto) 4.5, Lymph # (Auto) 3.0, [place] # (Auto) 0.7, Eos # (Auto) 0.2, Baso # (Auto) 0.1, Sodium 141, Potassium 6.5 H*, Chloride 112 H, Carbon Dioxide 28, Anion Gap 7.5, BUN 59 H D, Creatinine 1.70 H, Estimated Creat Clear 37, Estimated GFR 30 L, Est GFR ( Amer) 37 L, Glucose 189 H D, Lactate 1.2, Calcium 8.7, Total Bilirubin 0.3 06/16/23 05:45: Total Bilirubin 0.3, Direct Bilirubin 0.2, Conjugated Bilirubin 0.0, Indirect Bilirubin 0.1, Unconjugated Bilirubin 0.1, AST 59 H 06/16/23 05:45: AST 59 H, ALT 42 06/16/23 05:45: ALT 41, Alkaline Phosphatase 114 06/16/23 05:45: Alkaline Phosphatase 119, Total Protein 5.7 L 06/16/23 05:45: Total Protein 5.3 L, Albumin 2.7 L D 06/16/23 05:45: Albumin 2.6 L, Globulin 3.0, Albumin/Globulin Ratio 0.9 L 06/16/23 11:05: POC Glucose 166 H 06/16/23 13:45: ABG O2 Sat (Measured) 73.9 L, POC VBG O2 Sat (Tigre) 78.2 06/16/23 14:45: Potassium 6.1 H* 06/16/23 16:23: POC Glucose 286 H I & O for Last 24 hours: Intake & Output 06/13/23 06/14/23 06/15/23 06/16/23 23:59 23:59 23:59 23:59 Intake Total 590 / 840 1220 / 1660 920 / 920 Output Total 3100 / 3100 600 / 1000 701 / 701 Balance -2510 / -2260 620 / 660 219 / 219 Weight 73.936 kg 67.268 kg 67.85 kg 68.356 kg Constitutional Constitutional: no acute distress and average body habitus *Routine HEENT Exam Head: Present normocephalic and atraumatic ENT: Present mucous membranes moist *Routine Neck Exam Neck: Present supple, full ROM and normal carotid upstroke; Absent JVD, carotid bruit or lymphadenopathy *Routine Respiratory Exam Respiratory: Present rales, rhonchi, wheezes (Inspiratory and expiratory wheezing noted throughout), diminished air movement and other (cough); Absent able to speak in complete sentences *Routine Cardiovascular Exam Cardiovascular: Present RRR, Normal S1 and Normal S2; Absent murmur or gallop *Routine Abdominal Exam Abdominal: Present soft and normoactive bowel sounds; Absent tenderness, distended or organomegaly *Routine Extremities Exam Extremities: Present edema (2+ BLE edema), full ROM, pulses intact and normal capillary refill; Absent cyanosis or clubbing *Routine Skin Exam Skin: Present intact and warm; Absent erythema *Routine Neurological Exam Neurological: Present alert, oriented X3 and CN II-XII intact; Absent sensory deficit or motor deficit Routine Psychiatric Exam Psychiatric: Present normal affect Assessment and Plan *Assessment and plan (1) Acute and chronic respiratory failure with hypoxia: Status: Acute Category: Medical Code(s): J96.21 - Acute and chronic respiratory failure with hypoxia (2) Acute on chronic diastolic (congestive) heart failure: Status: Acute Category: Medical Code(s): I50.33 - Acute on chronic diastolic (congestive) heart failure (3) Chronic respiratory failure: Status: Acute Category: Medical Code(s): J96.10 - Chronic respiratory failure, unspecified whether with hypoxia or hypercapnia (4) Acute exacerbation of chronic obstructive pulmonary disease: Status: Acute Category: Medical Code(s): J44.1 - Chronic obstructive pulmonary disease with (acute) exacerbation (5) Paroxysmal atrial fibrillation: Status: Acute Category: Medical Code(s): I48.0 - Paroxysmal atrial fibrillation (6) Anxiety and depression: Status: Acute Category: Medical Code(s): F41.9 - Anxiety disorder, unspecified; F32.A - Depression, unspecified (7) Tobacco use: Status: Acute Category: Social Hx Code(s): Z72.0 - Tobacco use (8) Type 2 diabetes mellitus with hyperglycemia: Status: Chronic Qualifiers: 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 Bartlett is a 63-year-old female with chronic hypoxemic respiratory failure, chronic anticoagulation, poorly controlled diabetes, chronic pain, anxiety. Presented with shortness of breath and increased swelling in legs. Concern for acute on chronic hypoxemic respiratory failure due to CHF exacerbation and COPD exacerbation. Patient continues to smoke excessively 1-1/2 to 2 packs a day. Discussed case with ER, request admission for diuresis and further management. Medicine agreed to admit for further management. Initiated on doxycycline. Will continue these antibiotics for now. Pulmonology, cardiology, behavioral health consulted to assist with care. Concerned that patient severe anxiety underlies her readmission. She smokes heavily due to her anxiety which worsens her COPD and is led to her worsening shortness of breath. Will also have PT and OT evaluate her to evaluate for safety going home. Patient is scared about going to a senior care. Currently lives by herself and is reliant on family to grocery shop for her and check on her. She mobilizes with walker and wheelchair. Necessitating inpatient management. Diuresing well. Weaned to 3 L oxygen. Problems addressed as follows: # Acute on chronic chronic respiratory failure with hypoxia # COPD exacerbation #Acute on chronic diastolic congestive heart failure Acute kidney injury # Nicotine dependence - Goal sats greater 90%. Currently requiring 3 L -Discussed case with cardiology and pulmonology today. Cardiology recommends continuing Bumex for diuresis. Patient -1.5 L so far. In discussion with pulmonology, recommend continuing medical management. Continue doxycycline 100 mg twice daily for 5 days. -Continue Xopenex and ipratropium every 6 hours scheduled, budesonide twice daily - Continue metoprolol 12.5 mg twice daily for blood pressure and rate control. - Continue isosorbide mononitrate as daily, Farxiga 10 mg daily, Lipitor 10 mg nightly, Eliquis 5 mg twice daily - Reports smoking 2 packs a day of cigarettes. nicotine patch daily. - White cell count 13.1 today. Repeat CBC, CMP, magnesium ordered for the morning. -Negative for COVID and flu. # T2DM A1C 8.7 last admission 2 weeks ago Continue farxiga 10 mg daily; continue metformin 1000mg BID Continue Lantus 9 units twice daily Continue sliding scale # Anxiety and depression: - Continue Zoloft, increase to 200 mg daily. continue hydroxyzine 25 mg every 6 hours as needed for anxiety. - Continue Seroquel 25 mg nightly to help with sleep and anxiety - behavioral health consulted and seeing patient today. - continue BuSpar 10 mg twice daily # GERD: Continue home medications with famotidine 20 mg twice daily # Chronic pain: Continue home oxycodone 1 tablet 4 times a day as needed for pain. States compliance with regimen at home Hypomagnesemia: monitor PT and OT working with patient. Would benefit from rehab. Case management assisting with placement recommendations DVT PPx on home Eliquis Full code Diabetic diet B/l LE swelling, ordered US DVT, Cr is worsening, continue to monitor, s/p R cardiac cath - IMPRESSION Mild pulmonary hypertension with normal left-sided filling pressures continue IV dieresis for now due to b/l LE edema
--- NOTE | 2023-06-16 18:21 | PC.NURSE ---
Pt had done well today. BLE edema has improved. Pt was a little loopy after surgery. Pt had bed alarm placed while she was confused. Pt is A&O now. Medicated PRN for pain.
[2023-06-16 20:57] LABS: Potassium 5.9 mmoL/L (3.5-5.1)
[2023-06-16] MEDS: PANTOPRAZOLE 40MG TABLET 40 MG PO (20:58)
[2023-06-16] MEDS: QUETIAPINE 25MG TABLET 50 MG PO (20:58)
[2023-06-16] MEDS: ATORVASTATIN 10MG TABLET 10 MG PO (20:58)
[2023-06-17] VITALS (18 sets, daily range): BP systolic 107–149; BP diastolic 44–96; PULSE 71–86; RESP 16–24; TEMP 36.6–37.1; O2SAT 93–98; BMI 26.4
--- NOTE | 2023-06-17 01:35 | PC.NURSE ---
Mariam Adame APRN contacted this RN to order an AM 0600 BMP and DC Bumex from the [facility]
[2023-06-17] MEDS: LEVALBUTEROL 1.25MG/3ML NEB 1.25 MG IH ×3 (01:48→09:43)
[2023-06-17] MEDS: BUDESONIDE 0.5MG/2ML NEB 0.5 MG IH (06:10)
[2023-06-17] MEDS: humaLOG 100 UNITS/ML 3ML VIAL (SSI) SQ ×2 (06:30→20:59)
[2023-06-17 06:59] LABS: POC Glucose,Bedside 162 (70-110)
[2023-06-17 07:03] LABS: Alanine Aminotransferase 45 U/L (12-78); Albumin Level 3.1 g/dl (3.5-5.0); Alkaline Phosphatase 125 U/L (38-126); Anion Gap 5.2 mEq/L (5-15); Aspartate Amino Transferase 62 U/L (14-36); Bilirubin,Total 0.4 mg/dl (0.2-1.3); Blood Urea Nitrogen 60 mg/dl (7-17); Carbon Dioxide 33 mmol/L (22.0-30.0); Chloride 110 mmol/L (98-107); Creatinine Clearance Estimated 38 mL/min (50-200); Estimated Glomerular Filt Rate 30 ml/min (>60); GFR (African American) 37 ML/MIN (>60); Globulin 3.2 g/dL (1.3-3.2); Glucose 180 mg/dl (74-100); Sodium 141 mmol/L (136-145); Total Protein,Serum 6.3 g/dl (6.3-8.2)
[2023-06-17 07:05] LABS: POC Glucose,Bedside 109 (70-110)
[2023-06-17] MEDS: INSULIN GLARGINE 100 UNITS/ML 3ML FLEXPEN 9 UNIT SQ ×2 (07:14→16:39)
[2023-06-17] MEDS: METFORMIN 500MG TABLET 1000 MG PO (07:14)
[2023-06-17 07:22] LABS: Potassium 7.2 mmoL/L (3.5-5.1)
[2023-06-17] MEDS: INSULIN HUMAN REGULAR 100 UNITS/ML 10ML VIAL 10 UNIT IVP ×2 (07:51→13:49)
[2023-06-17] MEDS: DEXTROSE 50% 50ML SYRINGE (CRASH CART) 25 ML IVP ×2 (07:51→13:53)
[2023-06-17] MEDS: SODIUM POLY SULFON 15GM/60ML ORAL.SUSP 15 GM PO ×2 (07:52→13:53)
[2023-06-17] MEDS: FUROSEMIDE 20 MG/2 ML VIAL IV ×2 (07:53→13:53)
--- NOTE | 2023-06-17 08:00 | P.PN_ITS ---
Subjective *Date: 06/17/23 *Time: 08:00 Medical Exam Vital signs and Labs for Last 24 Hours: Vital Signs Temp Pulse Pulse Resp BP Pulse Ox O2 Del Method 06/17/23 06:25 Nasal Cannula 06/17/23 06:11 78 06/17/23 06:11 75 06/17/23 06:11 98 Nasal Cannula 06/17/23 05:00 Nasal Cannula 06/17/23 04:00 97.8 F 72 16 149/73 H 97 Nasal Cannula 06/17/23 03:00 Nasal Cannula 06/17/23 01:48 75 06/17/23 00:17 Nasal Cannula 06/17/23 00:00 98.2 F 73 17 107/59 L 95 Nasal Cannula 06/16/23 23:00 Nasal Cannula 06/16/23 22:50 84 06/16/23 21:00 Nasal Cannula 06/16/23 21:00 83 20 140/72 97 Nasal Cannula 06/16/23 20:00 Nasal Cannula 06/16/23 20:00 86 20 135/85 96 Nasal Cannula 06/16/23 19:00 97.7 F 80 18 128/78 97 Nasal Cannula 06/16/23 19:00 Nasal Cannula 06/16/23 18:46 82 06/16/23 18:46 96 Nasal Cannula 06/16/23 18:00 82 20 133/70 98 Nasal Cannula 06/16/23 17:00 82 18 142/71 H 98 Nasal Cannula 06/16/23 17:00 Nasal Cannula 06/16/23 16:30 84 18 124/70 92 L Nasal Cannula 06/16/23 16:00 77 18 141/73 H 99 Nasal Cannula 06/16/23 15:30 82 20 97/54 L 91 L Nasal Cannula 06/16/23 15:00 75 18 141/73 H 96 Nasal Cannula 06/16/23 15:00 Nasal Cannula 06/16/23 14:55 82 06/16/23 14:55 78 06/16/23 14:45 74 18 120/72 98 Nasal Cannula 06/16/23 14:30 73 18 122/57 L 98 Nasal Cannula 06/16/23 14:15 97.8 F 73 18 132/69 96 Nasal Cannula 06/16/23 11:00 Nasal Cannula 06/16/23 09:25 82 06/16/23 09:25 77 06/16/23 09:00 Nasal Cannula O2 Flow Rate 06/17/23 06:25 2 06/17/23 06:11 06/17/23 06:11 06/17/23 06:11 2 06/17/23 05:00 2 06/17/23 04:00 2 06/17/23 03:00 2 06/17/23 01:48 06/17/23 00:17 2 06/17/23 00:00 2 06/16/23 23:00 2 06/16/23 22:50 06/16/23 21:00 2 06/16/23 21:00 2 06/16/23 20:00 2 06/16/23 20:00 2 06/16/23 19:00 2 06/16/23 19:00 2 06/16/23 18:46 06/16/23 18:46 2 06/16/23 18:00 2 06/16/23 17:00 2 06/16/23 17:00 2 06/16/23 16:30 2 06/16/23 16:00 2 06/16/23 15:30 2 06/16/23 15:00 2 06/16/23 15:00 2 06/16/23 14:55 06/16/23 14:55 06/16/23 14:45 2 06/16/23 14:30 2 06/16/23 14:15 2 06/16/23 11:00 2 06/16/23 09:25 06/16/23 09:25 06/16/23 09:00 2 Intake and Output 06/16/23 06/17/23 06/17/23 23:59 07:59 15:59 Intake Total 750 / 1670 Output Total 800 / 1501 900 / 900 Balance -50 / 169 -900 / -900 Intake: Intake, Oral Amount 480 / 1400 Intake, Other Amount 20 / 20 Intake, Total IV Amount 250 / 250 Doxycycline Hyclate 100 mg In 0 250 / 250 .9 % Sodium Chloride 250 ml @ 166.667 mls/hr IV Q12 [facility] Rx#: [id number] Output: Output, Urine Amount 800 / 1501 900 / 900 Other: Intake, Other Source Saline Solution Number of Unmeasured Voids 1 1 Number of Bowel Movements 1 1 Weight 70.307 kg Patient Weight 06/17/23 23:59 Weight 70.307 kg Laboratory Results - last 24 hr 06/16/23 11:05: POC Glucose 166 H 06/16/23 13:45: ABG O2 Sat (Measured) 73.9 L, POC VBG O2 Sat (Tigre) 78.2 06/16/23 14:45: Potassium 6.1 H* 06/16/23 16:23: POC Glucose 286 H 06/16/23 20:23: POC Glucose 109 06/16/23 20:44: Potassium 5.9 H 06/17/23 06:29: POC Glucose 162 H 06/17/23 06:31: Sodium 141, Potassium 7.2 H* D, Chloride 110 H, Carbon Dioxide 33 H, Anion Gap 5.2, BUN 60 H, Creatinine 1.70 H, Estimated Creat Clear 38, Estimated GFR 30 L, Est GFR ( Amer) 37 L, Glucose 180 H, Calcium 9.0, Total Bilirubin 0.4, AST 62 H, ALT 45, Alkaline Phosphatase 125, Total Protein 6.3, Albumin 3.1 L D, Globulin 3.2, Albumin/Globulin Ratio 1.0 L I & O for Labs for Last 24 Hours: Intake & Output 06/14/23 06/15/23 06/16/23 06/17/23 23:59 23:59 23:59 23:59 Intake Total 590 / 840 1220 / 1660 1670 / 1670 Output Total 3100 / 3100 600 / 1000 1501 / 1501 900 / 900 Balance -2510 / -2260 620 / 660 169 / 169 -900 / -900 Weight 67.268 kg 67.85 kg 68.356 kg 70.307 kg The patient's infection will respond to the chosen ABx?: Yes (NO SPECIMAN, AFEBRILE OVER 24 HOURS.) Is the patient receiving the right drug, dose, and route?: Yes Could a more targeted ABx be ordered?: No
--- NOTE | 2023-06-17 08:19 | ECG_ITS ---
APPROVED REPORT Exam: Resting ECG HR:80 bpm ECG Measurements Heart Rate 80 AXES WV 160 P 76 QRSd 74 QRS -5 QT 344 T 51 QTc 379 Conclusion SINUS RHYTHM NORMAL ECG UNCONFIRMED REPORT Electronically signed by : Moe Escoto MD 06/18/2023 11:47:03
[2023-06-17 08:32] LABS: POC Glucose,Bedside 125 (70-110)
[2023-06-17] MEDS: DEXTROSE 50% 50ML SYRINGE (CRASH CART) 50 ML IVP (08:45)
[2023-06-17] MEDS: APIXABAN 5MG TABLET 5 MG PO ×2 (08:48→21:00)
[2023-06-17] MEDS: BUSPIRONE HCL 10 MG TABLET PO ×2 (08:48→21:00)
[2023-06-17] MEDS: GABAPENTIN 300MG CAPSULE 300 MG PO ×3 (08:48→21:00)
[2023-06-17] MEDS: OXYCODONE 7.5MG W/APAP 325MG TABLET 1 EACH PO ×3 (08:48→20:59)
[2023-06-17] MEDS: ISOSORBIDE MONO 30MG TAB.ER.24H 30 MG PO (08:48)
[2023-06-17] MEDS: MAGNESIUM OXIDE 400MG TABLET 400 MG PO (08:48)
[2023-06-17] MEDS: SERTRALINE 100MG TABLET 200 MG PO (08:48)
[2023-06-17] MEDS: METOPROLOL TARTRATE 25MG TABLET 12.5 MG PO ×2 (08:48→21:00)
[2023-06-17] MEDS: DAPAGLIFLOZIN PROPANEDIOL 10 MG TABLET PO (08:48)
[2023-06-17] MEDS: LOKELMA 5GM PACKET 10 GM PO (08:49)
[2023-06-17] MEDS: DOXYCYCLINE HYCLATE 100 MG in 0.9 % SODIUM CHLORIDE 250 ML 166.667000000000002 MG IV (08:49)
[2023-06-17] MEDS: BUMETANIDE 1 MG TABLET PO (09:17)
[2023-06-17 09:21] LABS: POC Glucose,Bedside 158 (70-110)
[2023-06-17 10:17] LABS: Potassium 6.1 mmoL/L (3.5-5.1)
[2023-06-17] MEDS: NICOTINE 21MG/24HR PATCH 21 MG TD (10:40)
--- NOTE | 2023-06-17 10:46 | CT_ITS ---
FINAL REPORT TECHNIQUE: Axial images through the abdomen and pelvis were performed without contrast.This study was performed with techniques to keep radiation doses as low as reasonably achievable, (ALARA). Individualized dose reduction techniques using automated exposure control or adjustment of mA and/or kV according to the patient's size were employed. CLINICAL HISTORY: abd pain FINDINGS: ABDOMEN: The lung bases demonstrate mild pleural thickening with calcified pleural plaque in the right lung. The heart size is normal. Limited images of the liver are unremarkable. Patient is status postcholecystectomy. The spleen is normal. No adrenal mass is identified. The aorta is normal in caliber. There is no significant free fluid or adenopathy. There is no nephrolithiasis. There is no hydronephrosis. There is a left renal mass which is difficult to visualize without contrast measuring up to 2.5 cm. Bowel is unremarkable. PELVIS: The appendix is not identified. Patient is status post hysterectomy. Pelvic bowel loops are unremarkable. The urinary bladder is unremarkable. There is no significant free fluid or adenopathy. Body wall edema is noted. IMPRESSION: No bowel obstruction. No obvious inflammatory changes. Left renal mass, difficult to visualize without contrast measuring 2.5 cm. Reviewed, Interpreted and Dictated by Marcia Luque MD Transcribed by Milagros López Authenticated and . [facility]
[2023-06-17 11:32] LABS: POC Glucose,Bedside 146 (70-110)
--- NOTE | 2023-06-17 12:20 | P.PN_ITS ---
Subjective *Date: 06/17/23 *Time: 12:20 Interval history: No acute respiratory events overnight. Patient denies any significant improvement in her respiratory symptoms. Pulmonology Exam Inpatient Vital signs and Labs for Last 24 Hours: Temp Pulse Resp BP Pulse Ox O2 Del Method O2 Flow Rate 97.8 F 85 20 112/64 97 Nasal Cannula 2 06/17/23 12:03 06/17/23 10:00 06/17/23 10:00 06/17/23 10:00 06/17/23 10:00 06/17/23 10:00 06/17/23 10:00 FiO2 28 06/14/23 21:31 Laboratory Results - last 24 hr 06/16/23 13:45: ABG O2 Sat (Measured) 73.9 L, POC VBG O2 Sat (Tigre) 78.2 06/16/23 14:45: Potassium 6.1 H* 06/16/23 16:23: POC Glucose 286 H 06/16/23 20:23: POC Glucose 109 06/16/23 20:44: Potassium 5.9 H 06/17/23 06:29: POC Glucose 162 H 06/17/23 06:31: Sodium 141, Potassium 7.2 H* D, Chloride 110 H, Carbon Dioxide 33 H, Anion Gap 5.2, BUN 60 H, Creatinine 1.70 H, Estimated Creat Clear 38, Estimated GFR 30 L, Est GFR ( Amer) 37 L, Glucose 180 H, Calcium 9.0, Total Bilirubin 0.4, AST 62 H, ALT 45, Alkaline Phosphatase 125, Total Protein 6.3, Albumin 3.1 L D, Globulin 3.2, Albumin/Globulin Ratio 1.0 L 06/17/23 07:45: POC Glucose 125 H 06/17/23 09:01: POC Glucose 158 H 06/17/23 09:50: Potassium 6.1 H* 06/17/23 11:23: POC Glucose 146 H Temp Pulse Resp BP Pulse Ox O2 Del Method O2 Flow Rate 98.2 F 90 24 126/68 97 Nasal Cannula 3 06/14/23 07:47 06/14/23 08:00 06/14/23 07:47 06/14/23 07:47 06/14/23 07:47 06/14/23 09:00 06/14/23 07:47 FiO2 40 06/13/23 22:28 Laboratory Results - last 24 hr 06/13/23 22:00: WBC 12.2 H, RBC 4.59, Hgb 13.2, Hct 43.7, MCV 95.2, MCH 28.8, MCHC 30.2 L, RDW 16.3, Plt Count 304, MPV 7.8, Neut % (Auto) 61.7, Lymph % (Auto) 29.2, [place] % (Auto) 6.1, Eos % (Auto) 1.9, Baso % (Auto) 1.1, Neut # (Auto) 7.5, Lymph # (Auto) 3.6, [place] # (Auto) 0.8, Eos # (Auto) 0.2, Baso # (Auto) 0.1, Sodium 142, Potassium 4.9, Chloride 111 H, Carbon Dioxide 27, Anion Gap 8.9, BUN 25 H, Creatinine 1.00, Estimated Creat Clear 68, Estimated GFR 56 L , Est GFR ( Amer) 68, Glucose 174 H, Calcium 9.3, Total Bilirubin 0.7, AST 78 H, ALT 54, Alkaline Phosphatase 130 H, Troponin I < 0.01, NT-Pro-B Natriuret Pep 2360 H, Total Protein 7.4 D, Albumin 3.6, Globulin 3.8 H, Albumin/Globulin Ratio 0.9 L 06/13/23 22:06: VBG pH 7.29 L, VBG pCO2 47.9, VBG pO2 27.8 L, VBG HCO3 22.4 L, VBG Total CO2 23.8, VBG O2 Saturation 51.9, VBG Base Excess -4.3 L, VBG Lactic Acid 2.5 H 06/13/23 22:27: Urine Color Yellow, Urine Appearance Clear, Urine pH 5.5, Ur Specific [place] 1.025, Urine Protein 2+, Urine Glucose (UA) Negative, Urine Ketones Negative, Urine Blood 1+, Urine Nitrate Negative, Urine Bilirubin Negative, Urine Urobilinogen 0.2, Ur Leukocyte Esterase Negative, Urine RBC Occasional, Urine WBC None, Ur Squamous Epith Cells None, Urine Bacteria None 06/13/23 23:26: VBG pH 7.42 H, VBG pCO2 33.8 L, VBG pO2 33.4, VBG HCO3 21.3 L, VBG Total CO2 22.4 L, VBG O2 Saturation 69.6, VBG Base Excess -3.2 L, VBG Lactic Acid 4.5 H 06/14/23 01:40: Lactate 4.2 H, Troponin I < 0.01 06/14/23 01:41: SARS-CoV-2 (PCR) Not detected, Influenza A Untype (PCR) Not detected, Influenza Type B (PCR) Not detected 06/14/23 04:15: WBC 13.1 H, RBC 3.84 L, Hgb 10.9 L D, Hct 35.5 L, MCV 92.2, MCH 28.3, MCHC 30.7 L, RDW 16.3, Plt Count 270, MPV 8.2, Neut % (Auto) 93.1 H, Lymph % (Auto) 4.6 L, [place] % (Auto) 1.7, Eos % (Auto) 0.1, Baso % (Auto) 0.5, Neut # (Auto) 12.2 H, Lymph # (Auto) 0.6 L, [place] # (Auto) 0.2, Eos # (Auto) 0.0, Baso # (Auto) 0.1, Total Counted 100, Neutrophils % (Manual) 96 H, Lymphocytes % (Manual) 3 L, Monocytes % (Manual) 1 L, Platelet Estimate Normal, RBC Morphology Normal, Sodium 138, Potassium 5.1, Chloride 110 H, Carbon Dioxide 18 L, Anion Gap 15.1 H, BUN 27 H, Creatinine 1.40 H D, Estimated Creat Clear 49, Estimated GFR 38 L, Est GFR ( Amer) 46 L D, Glucose 407 H* D, Lactate 5.8 H, Calcium 8.6, Magnesium 1.1 L, Total Bilirubin 0.5, AST 82 H, ALT 60, Alkaline Phosphatase 131 H, Troponin I < 0.01, Total Protein 6.0 L, Albumin 2.9 L D, Globulin 3.1, Albumin/Globulin Ratio 0.9 L 06/14/23 05:04: POC Glucose 428 H* I & O for Labs for Last 24 Hours: Intake & Output 06/14/23 06/15/23 06/16/23 06/17/23 23:59 23:59 23:59 23:59 Intake Total 590 / 840 1220 / 1660 1670 / 1670 Output Total 3100 / 3100 600 / 1000 1501 / 1501 1800 / 1800 Balance -2510 / -2260 620 / 660 169 / 169 -1800 / -1800 Weight 148 lb 4.8 oz 149 lb 9.338 oz 150 lb 11.2 oz 155 lb Intake & Output 06/11/23 06/12/23 06/13/23 06/14/23 23:59 23:59 23:59 23:59 Intake Total 200 / 200 Output Total 1500 / 1500 Balance -1300 / -1300 Weight 163 lb 148 lb 4.8 oz Constitutional: Present moderate distress Head: Present normocephalic and atraumatic ENT: Present normal exam, normal oropharynx and mucous membranes moist Neck: Present normal inspection and full ROM Respiratory: Present prolonged expiratory phase, respiratory distress, wheezes, diminished air movement and able to speak in complete sentences; Absent crackles Cardiac: Present S1/S2, Tachycardia and radial pulses present GI: Present soft and distention; Absent tenderness or guarding Rectal (female): Present deferred (female): Present deferred Skin: Present intact; Absent cyanosis or jaundice Neuro: Present alert, awake and oriented x 3 Extremities: Present normal inspection and edema; Absent clubbing or cyanosis Psychiatric: Present normal affect and cooperative Assessment and Plan *Assessment and plan (1) COPD mixed type: Status: Acute Category: Medical Code(s): J44.9 - Chronic obstructive pulmonary disease, unspecified (2) Chronic respiratory failure with hypoxia: Status: Acute Category: Medical Code(s): J96.11 - Chronic respiratory failure with hypoxia Plan Ms. Bartlett is a 63-year-old female current smoker greater than 30 PPD, COPD, chronic hypoxic respiratory failure on 3 L oxygen supplementation at baseline recently seen in the hospital multitude of complaints including worsening respiratory distress managed for COPD exacerbation and pneumonia discharged home on levofloxacin Trelegy inhaler and prednisone presented to the ER again complaining of Worsening respiratory distress and pulmonary was called for further evaluation and management. On admission, afebrile. Hemodynamically stable. Mild leukocytosis. Venous blood gas upon admission did not show any evidence of hypercarbic respiratory failure, pH is 7.29 with a pCO2 47.9. Patient was initiated on BiPAP therapy and subsequent blood gases showed respiratory alkalosis. COVID-19 and flu PCR panel negative. CT chest on admission continue to show decrease centrilobular emphysematous changes. Upper lobe predominant subpleural thickening appears to be chronic when compared to her CT from January 2021. Continued show dilated pulmonary artery consistent with pulmonary hypertension. MIld increase GGO attenuation / air trapping noted On initial examination patient appeared to be in mild respiratory distress with diffuse wheezing noted on auscultation. Oxygen requirements at baseline. Interval update: No acute respiratory events overnight. Stable oxygen requirements. Continue to show wheezing partly transmitted concern for vocal dysfunction will recommend ENT evaluation as an outpatient basis. Will change her breathing treatments back to Trelegy 100 inhaler. Stable oxygen requirements. Chest x-ray relatively stable with chronic interstitial changes with no acute infiltrates. Completed 3-day course of doxycycline. Underwent RHC today, will follow with results Plan: -Incentive spirometry and flutter valve -Continue oxygen supplementation to maintain O2 saturation above 90 to 95%. Wean as tolerated. On 2 L saturating 96%. -Trelegy 100 inhaler -DuoNebs every 4 hours on as-needed basis # Thank you for involving pulmonary in this patient care. Will continue to follow.
[2023-06-17 13:10] LABS: Potassium 6.9 mmoL/L (3.5-5.1)
[2023-06-17 13:40] LABS: Magnesium 1.3 mg/dl (1.6-2.3)
--- NOTE | 2023-06-17 15:34 | PC.NURSE ---
Patient has had multiple bowel movements this shift. VS stable and patient remained on 2LNC. Lung sounds inspiratory, expiratory rhonchi. Bilateral edema in lower extremities. Left foot pitting 3+, right foot pitting 2+. Patient NSR with peaked t waves.
[2023-06-17 16:20] LABS: POC Glucose,Bedside 233 (70-110)
[2023-06-17 16:20] LABS: POC Glucose,Bedside 119 (70-110)
[2023-06-17] MEDS: MAGNESIUM SULFATE IN WATER 2 GM/50 ML PIGGYBACK IV (16:40)
--- NOTE | 2023-06-17 16:55 | EXP.PN ---
Subjective *Date: 06/17/23 *Time: 16:55 Interval history: seen at bedside, cookie CP, SOB, N/V Exam Data for Last 24 hours Vital signs and Labs for Last 24 Hours: Temp Pulse Resp BP Pulse Ox O2 Del Method O2 Flow Rate 97.9 F 80 22 143/73 H 96 Nasal Cannula 2 06/17/23 15:16 06/17/23 16:00 06/17/23 14:00 06/17/23 14:00 06/17/23 14:00 06/17/23 16:48 06/17/23 16:48 FiO2 28 06/14/23 21:31 Laboratory Results - last 24 hr 06/16/23 20:23: POC Glucose 109 06/16/23 20:44: Potassium 5.9 H 06/17/23 06:29: POC Glucose 162 H 06/17/23 06:31: Sodium 141, Potassium 7.2 H* D, Chloride 110 H, Carbon Dioxide 33 H, Anion Gap 5.2, BUN 60 H, Creatinine 1.70 H, Estimated Creat Clear 38, Estimated GFR 30 L, Est GFR ( Amer) 37 L, Glucose 180 H, Calcium 9.0, Total Bilirubin 0.4, AST 62 H, ALT 45, Alkaline Phosphatase 125, Total Protein 6.3, Albumin 3.1 L D, Globulin 3.2, Albumin/Globulin Ratio 1.0 L 06/17/23 07:45: POC Glucose 125 H 06/17/23 09:01: POC Glucose 158 H 06/17/23 09:50: Potassium 6.1 H* 06/17/23 11:23: POC Glucose 146 H 06/17/23 12:50: Magnesium 1.3 L D 06/17/23 12:51: Potassium 6.9 H* 06/17/23 13:51: POC Glucose 233 H 06/17/23 16:13: POC Glucose 119 H I & O for Last 24 hours: Intake & Output 06/14/23 06/15/23 06/16/23 06/17/23 23:59 23:59 23:59 23:59 Intake Total 590 / 840 1220 / 1660 1670 / 1670 807 / 807 Output Total 3100 / 3100 600 / 1000 1501 / 1501 2900 / 2900 Balance -2510 / -2260 620 / 660 169 / 169 -2092 / -2092 Weight 67.268 kg 67.85 kg 68.356 kg 70.307 kg Constitutional Constitutional: no acute distress *Routine HEENT Exam Head: Present normocephalic Eye: Present EOMI and PERRL ENT: Present mucous membranes moist *Routine Neck Exam Neck: Present supple; Absent lymphadenopathy *Routine Respiratory Exam Respiratory: Present CTA bilaterally *Routine Cardiovascular Exam Cardiovascular: Present RRR *Routine Abdominal Exam Abdominal: Present soft and normoactive bowel sounds; Absent tenderness Comments: has tenderness in R flank area *Routine Extremities Exam Extremities: Absent cyanosis, clubbing or edema *Routine Skin Exam Skin: Present warm; Absent rash *Routine Neurological Exam Neurological: Present alert and oriented X3 Routine Psychiatric Exam Psychiatric: Present normal affect Assessment and Plan *Assessment and plan (1) Acute and chronic respiratory failure with hypoxia: Status: Acute Category: Medical Code(s): J96.21 - Acute and chronic respiratory failure with hypoxia (2) Acute on chronic diastolic (congestive) heart failure: Status: Acute Category: Medical Code(s): I50.33 - Acute on chronic diastolic (congestive) heart failure (3) Chronic respiratory failure: Status: Acute Category: Medical Code(s): J96.10 - Chronic respiratory failure, unspecified whether with hypoxia or hypercapnia (4) Acute exacerbation of chronic obstructive pulmonary disease: Status: Acute Category: Medical Code(s): J44.1 - Chronic obstructive pulmonary disease with (acute) exacerbation (5) Paroxysmal atrial fibrillation: Status: Acute Category: Medical Code(s): I48.0 - Paroxysmal atrial fibrillation (6) Anxiety and depression: Status: Acute Category: Medical Code(s): F41.9 - Anxiety disorder, unspecified; F32.A - Depression, unspecified (7) Tobacco use: Status: Acute Category: Social Hx Code(s): Z72.0 - Tobacco use (8) Type 2 diabetes mellitus with hyperglycemia: Status: Chronic Qualifiers: Diabetes mellitus custodial insulin use: without stripper and taper use Qualified Code(s): E11.65 - Type 2 diabetes mellitus with hyperglycemia Category: Medical Code(s): E11.65 - Type 2 diabetes mellitus with hyperglycemia (9) HTN (hypertension): Status: Chronic Qualifiers: Hypertension type: essential hypertension Qualified Code(s): I10 - Essential (primary) hypertension Category: Medical Code(s): I10 - Essential (primary) hypertension Plan Ms. Bartlett is a 63-year-old female with chronic hypoxemic respiratory failure, chronic anticoagulation, poorly controlled diabetes, chronic pain, anxiety. Presented with shortness of breath and increased swelling in legs. Concern for acute on chronic hypoxemic respiratory failure due to CHF exacerbation and COPD exacerbation. Patient continues to smoke excessively 1-1/2 to 2 packs a day. Discussed case with ER, request admission for diuresis and further management. Medicine agreed to admit for further management. Initiated on doxycycline. Will continue these antibiotics for now. Pulmonology, cardiology, behavioral health consulted to assist with care. Concerned that patient severe anxiety underlies her readmission. She smokes heavily due to her anxiety which worsens her COPD and is led to her worsening shortness of breath. Will also have PT and OT evaluate her to evaluate for safety going home. Patient is scared about going to a [facility]. Currently lives by herself and is reliant on family to grocery shop for her and check on her. She mobilizes with walker and wheelchair. Necessitating inpatient management. Diuresing well. Weaned to 3 L oxygen. Problems addressed as follows: # Acute on chronic chronic respiratory failure with hypoxia # COPD exacerbation #Acute on chronic diastolic congestive heart failure Acute kidney injury Severe hypperkalemia - recurrent - s/p insulin and D50, Kayexalate, and IV lasix recheck CT abd pelvis - showed 2.5cm renal mass, may need abdominal MRI or oncology consult as inpatient vs OP, when more stable # Nicotine dependence - Goal sats greater 90%. Currently requiring 3 L -Discussed case with cardiology and pulmonology today. Cardiology recommends continuing Bumex for diuresis. Patient -1.5 L so far. In discussion with pulmonology, recommend continuing medical management. Continue doxycycline 100 mg twice daily for 5 days. -Continue Xopenex and ipratropium every 6 hours scheduled, budesonide twice daily - Continue metoprolol 12.5 mg twice daily for blood pressure and rate control. - Continue isosorbide mononitrate as daily, Farxiga 10 mg daily, Lipitor 10 mg nightly, Eliquis 5 mg twice daily - Reports smoking 2 packs a day of cigarettes. nicotine patch daily. - White cell count 13.1 today. Repeat CBC, CMP, magnesium ordered for the morning. -Negative for COVID and flu. # T2DM A1C 8.7 last admission 2 weeks ago Continue farxiga 10 mg daily; continue metformin 1000mg BID Continue Lantus 9 units twice daily Continue sliding scale # Anxiety and depression: - Continue Zoloft, increase to 200 mg daily. continue hydroxyzine 25 mg every 6 hours as needed for anxiety. - Continue Seroquel 25 mg nightly to help with sleep and anxiety - behavioral health consulted and seeing patient today. - continue BuSpar 10 mg twice daily # GERD: Continue home medications with famotidine 20 mg twice daily # Chronic pain: Continue home oxycodone 1 tablet 4 times a day as needed for pain. States compliance with regimen at home Hypomagnesemia: monitor PT and OT working with patient. Would benefit from rehab. Case management assisting with placement recommendations DVT PPx on home Eliquis Full code Diabetic diet plan to closely monitor K level, CT abd positive for renal mass on R side
[2023-06-17 17:08] LABS: POC Glucose,Bedside 266 (70-110)
[2023-06-17 17:15] LABS: Potassium 5.8 mmoL/L (3.5-5.1)
[2023-06-17] MEDS: QUETIAPINE 25MG TABLET 50 MG PO (21:00)
[2023-06-17] MEDS: hydrOXYzine pamoate 25MG CAPSULE 25 MG PO (21:00)
[2023-06-17] MEDS: PANTOPRAZOLE 40MG TABLET 40 MG PO (21:00)
[2023-06-17] MEDS: ATORVASTATIN 10MG TABLET 10 MG PO (21:00)
[2023-06-17 21:13] LABS: POC Glucose,Bedside 230 (70-110)
--- NOTE | 2023-06-17 22:15 | PC.NURSE ---
RESP CARE NOTE: ROOM AIR SAT 87% Pt placed back on 1LNC with sats at 92%
[2023-06-18] VITALS (15 sets, daily range): BP systolic 108–181; BP diastolic 60–90; PULSE 64–80; RESP 16–26; TEMP 36.6–37.3; O2SAT 90–97; BMI 26.4
--- NOTE | 2023-06-18 00:50 | PC.NURSE ---
06/17/23 @ 2342; HARSHAD DA SILVA, RN, AND THIS RN HEARD THIS PT YELLING FOR HELP. CHI MENDEZ, RN, AND THIS RN ENTERED ROOM AND SAW PT ON THE ON THE FLOOR. PT DENIES HITTING HER HEAD AND DENIES ANY NEW PAIN. PT DOES HAVE A NEW LAC TO R ORTIZ; SLIGHTLY BLEEDING, COVERED WITH TEGADERM PER SHIPPER RECEIVER; SHIPPER RECEIVER NOTIFIED AT 7825 AND CAME TO BEDSIDE TO ASSESS PT. [employer] NOTIFIED, HOUSE SUP NOTIFIED WELL. PT WAS PLACED IN BED WITH BED ALARM ON.
--- NOTE | 2023-06-18 03:56 | PC.NURSE ---
RESP CARE NOTE: ROOM AIR SAT 87% Pt placed back on 1LNC with sats at 92%
[2023-06-18 05:38] LABS: POC Glucose,Bedside 241 (70-110)
[2023-06-18] MEDS: OXYCODONE 7.5MG W/APAP 325MG TABLET 1 EACH PO ×3 (06:00→21:04)
[2023-06-18] MEDS: humaLOG 100 UNITS/ML 3ML VIAL (SSI) SQ ×4 (06:01→21:03)
[2023-06-18] MEDS: SERTRALINE 100MG TABLET 200 MG PO (08:37)
[2023-06-18] MEDS: BUSPIRONE HCL 10 MG TABLET PO ×2 (08:37→21:04)
[2023-06-18] MEDS: GABAPENTIN 300MG CAPSULE 300 MG PO ×3 (08:37→21:04)
[2023-06-18] MEDS: APIXABAN 5MG TABLET 5 MG PO ×2 (08:37→21:04)
[2023-06-18] MEDS: DAPAGLIFLOZIN PROPANEDIOL 10 MG TABLET PO (08:38)
[2023-06-18] MEDS: ISOSORBIDE MONO 30MG TAB.ER.24H 30 MG PO (08:38)
[2023-06-18] MEDS: METOPROLOL TARTRATE 25MG TABLET 12.5 MG PO ×2 (08:38→21:05)
[2023-06-18] MEDS: BUMETANIDE 1 MG TABLET PO (08:38)
[2023-06-18] MEDS: INSULIN GLARGINE 100 UNITS/ML 3ML FLEXPEN 9 UNIT SQ ×2 (08:40→16:45)
[2023-06-18] MEDS: FLUTICASONE/UMECLIDIN/VILANTER 100/62.5/25MCG INHALER 1 PUFF IH (09:02)
[2023-06-18] MEDS: LEVALBUTEROL 1.25MG/3ML NEB 1.25 MG IH (09:04)
[2023-06-18 09:06] LABS: POC Glucose,Bedside 259 (70-110)
[2023-06-18 09:54] LABS: Basophils # 0.1 K/mm3 (0-0.2); Basophils % 0.9 % (0.1-2.0); Eosinophils # 0.4 K/mm3 (0.0-0.4); Eosinophils % 4.7 % (0.1-12.0); Hemoglobin 10.9 g/dL (12.2-16.2); Lymphocytes # 2.5 K/mm3 (0.7-4.5); Mean Corpuscular HGB Conc 30.2 g/dL (31.8-35.4); Mean Corpuscular Hemoglobin 28.1 pg (27.0-31.2); Mean Platelet Volume 8.5 fl (7.4-10.4); Monocytes # 0.7 K/mm3 (0.1-1.0); Monocytes % 7.8 % (1.7-9.3); Neutrophils # 4.8 K/mm3 (1.8-7.8); Neutrophils % 56.6 % (37.0-80.0); Platelet Count 288 K/mm3 (142-424); Red Blood Count 3.86 M/mm3 (4.20-5.40); White Blood Count 8.5 K/mm3 (4.8-10.8)
[2023-06-18 10:08] LABS: Anion Gap 8.1 mEq/L (5-15); Blood Urea Nitrogen 57 mg/dl (7-17); Calcium 9.1 mg/dl (8.4-10.2); Carbon Dioxide 32 mmol/L (22.0-30.0); Chloride 104 mmol/L (98-107); Creatinine Clearance Estimated 40 mL/min (50-200); Estimated Glomerular Filt Rate 33 ml/min (>60); GFR (African American) 40 ML/MIN (>60); Glucose 293 mg/dl (74-100); Sodium 138 mmol/L (136-145)
[2023-06-18 10:15] LABS: Potassium 6.1 mmoL/L (3.5-5.1)
[2023-06-18] MEDS: 0.9 % SODIUM CHLORIDE 250 ML 999 ML IV (10:40)
[2023-06-18] MEDS: NICOTINE 21MG/24HR PATCH 21 MG TD (10:40)
[2023-06-18 11:47] LABS: POC Glucose,Bedside 247 (70-110)
--- NOTE | 2023-06-18 13:41 | EXP.PN ---
Subjective *Date: 06/19/23 *Time: 13:40 Interval history: patient has been having recurring hyperkalemia, no acute events overnight, denied CP, SOB, has wheezing Exam Data for Last 24 hours Vital signs and Labs for Last 24 Hours: Temp Pulse Resp BP Pulse Ox O2 Del Method O2 Flow Rate 97.9 F 70 20 181/90 H 93 L Nasal Cannula 1 06/18/23 11:53 06/18/23 12:00 06/18/23 12:00 06/18/23 12:00 06/18/23 12:00 06/18/23 13:00 06/18/23 13:00 FiO2 28 06/14/23 21:31 Laboratory Results - last 24 hr 06/17/23 12:50: Magnesium 1.3 L D 06/17/23 13:51: POC Glucose 233 H 06/17/23 16:13: POC Glucose 119 H 06/17/23 16:45: Potassium 5.8 H 06/17/23 17:00: POC Glucose 266 H 06/17/23 20:14: POC Glucose 230 H 06/18/23 05:31: POC Glucose 241 H 06/18/23 08:40: POC Glucose 259 H 06/18/23 09:42: WBC 8.5, RBC 3.86 L, Hgb 10.9 L, Hct 36.0 L, MCV 93.0, MCH 28.1, MCHC 30.2 L, RDW 16.0, Plt Count 288, MPV 8.5, Neut % (Auto) 56.6, Lymph % (Auto) 30.0, [place] % (Auto) 7.8, Eos % (Auto) 4.7, Baso % (Auto) 0.9, Neut # (Auto) 4.8, Lymph # (Auto) 2.5, [place] # (Auto) 0.7, Eos # (Auto) 0.4, Baso # (Auto) 0.1, Sodium 138, Potassium 6.1 H*, Chloride 104, Carbon Dioxide 32 H, Anion Gap 8.1, BUN 57 H, Creatinine 1.60 H, Estimated Creat Clear 40, Estimated GFR 33 L, Est GFR ( Amer) 40 L, Glucose 293 H, Calcium 9.1 06/18/23 11:27: POC Glucose 247 H I & O for Last 24 hours: Intake & Output 06/15/23 06/16/23 06/17/23 06/18/23 23:59 23:59 23:59 23:59 Intake Total 1220 / 1660 1670 / 1670 807 / 807 1150 / 1150 Output Total 600 / 1000 1501 / 1501 2900 / 2900 800 / 800 Balance 620 / 660 169 / 169 -2093 / -2093 350 / 350 Weight 67.85 kg 68.356 kg 70.307 kg 70.309 kg Constitutional Constitutional: no acute distress *Routine HEENT Exam Head: Present normocephalic Eye: Present EOMI and PERRL ENT: Present mucous membranes moist *Routine Neck Exam Neck: Present supple; Absent lymphadenopathy *Routine Respiratory Exam Respiratory: Present wheezes *Routine Cardiovascular Exam Cardiovascular: Present RRR *Routine Abdominal Exam Abdominal: Present soft and normoactive bowel sounds; Absent tenderness Comments: has tenderness in R flank area *Routine Extremities Exam Extremities: Absent cyanosis, clubbing or edema *Routine Skin Exam Skin: Present warm; Absent rash *Routine Neurological Exam Neurological: Present alert and oriented X3 Routine Psychiatric Exam Psychiatric: Present normal affect Assessment and Plan *Assessment and plan (1) Acute and chronic respiratory failure with hypoxia: Status: Acute Category: Medical Code(s): J96.21 - Acute and chronic respiratory failure with hypoxia (2) Acute on chronic diastolic (congestive) heart failure: Status: Acute Category: Medical Code(s): I50.33 - Acute on chronic diastolic (congestive) heart failure (3) Chronic respiratory failure: Status: Acute Category: Medical Code(s): J96.10 - Chronic respiratory failure, unspecified whether with hypoxia or hypercapnia (4) Acute exacerbation of chronic obstructive pulmonary disease: Status: Acute Category: Medical Code(s): J44.1 - Chronic obstructive pulmonary disease with (acute) exacerbation (5) Paroxysmal atrial fibrillation: Status: Acute Category: Medical Code(s): I48.0 - Paroxysmal atrial fibrillation (6) Anxiety and depression: Status: Acute Category: Medical Code(s): F41.9 - Anxiety disorder, unspecified; F32.A - Depression, unspecified (7) Tobacco use: Status: Acute Category: Social Hx Code(s): Z72.0 - Tobacco use (8) Type 2 diabetes mellitus with hyperglycemia: Status: Chronic Qualifiers: Diabetes mellitus ad terminal makeup operator insulin use: without retirement use Qualified Code(s): E11.65 - Type 2 diabetes mellitus with hyperglycemia Category: Medical Code(s): E11.65 - Type 2 diabetes mellitus with hyperglycemia (9) HTN (hypertension): Status: Chronic Qualifiers: Hypertension type: essential hypertension Qualified Code(s): I10 - Essential (primary) hypertension Category: Medical Code(s): I10 - Essential (primary) hypertension Plan Ms. Bartlett is a 63-year-old female with chronic hypoxemic respiratory failure, chronic anticoagulation, poorly controlled diabetes, chronic pain, anxiety. Presented with shortness of breath and increased swelling in legs. Concern for acute on chronic hypoxemic respiratory failure due to CHF exacerbation and COPD exacerbation. Patient continues to smoke excessively 1-1/2 to 2 packs a day. Discussed case with ER, request admission for diuresis and further management. Medicine agreed to admit for further management. Initiated on doxycycline. Will continue these antibiotics for now. Pulmonology, cardiology, behavioral health consulted to assist with care. Concerned that patient severe anxiety underlies her readmission. She smokes heavily due to her anxiety which worsens her COPD and is led to her worsening shortness of breath. Will also have PT and OT evaluate her to evaluate for safety going home. Patient is scared about going to a half-way. Currently lives by herself and is reliant on family to grocery shop for her and check on her. She mobilizes with walker and wheelchair. Necessitating inpatient management. Diuresing well. Weaned to 3 L oxygen. Problems addressed as follows: # Acute on chronic chronic respiratory failure with hypoxia # COPD exacerbation #Acute on chronic diastolic congestive heart failure Acute kidney injury Severe hypperkalemia - recurrent - s/p insulin and D50, Kayexalate, and IV lasix recheck CT abd pelvis - showed 2.5cm renal mass, may need abdominal MRI or oncology consult as inpatient vs OP, when more stable # Nicotine dependence - Goal sats greater 90%. Currently requiring 3 L -Discussed case with cardiology and pulmonology today. Cardiology recommends continuing Bumex for diuresis. Patient -1.5 L so far. In discussion with pulmonology, recommend continuing medical management. Continue doxycycline 100 mg twice daily for 5 days. -Continue Xopenex and ipratropium every 6 hours scheduled, budesonide twice daily - Continue metoprolol 12.5 mg twice daily for blood pressure and rate control. - Continue isosorbide mononitrate as daily, Farxiga 10 mg daily, Lipitor 10 mg nightly, Eliquis 5 mg twice daily - Reports smoking 2 packs a day of cigarettes. nicotine patch daily. - White cell count 13.1 today. Repeat CBC, CMP, magnesium ordered for the morning. -Negative for COVID and flu. # T2DM A1C 8.7 last admission 2 weeks ago Continue farxiga 10 mg daily; continue metformin 1000mg BID Continue Lantus 9 units twice daily Continue sliding scale # Anxiety and depression: - Continue Zoloft, increase to 200 mg daily. continue hydroxyzine 25 mg every 6 hours as needed for anxiety. - Continue Seroquel 25 mg nightly to help with sleep and anxiety - behavioral health consulted and seeing patient today. - continue BuSpar 10 mg twice daily # GERD: Continue home medications with famotidine 20 mg twice daily # Chronic pain: Continue home oxycodone 1 tablet 4 times a day as needed for pain. States compliance with regimen at home Hypomagnesemia: monitor PT and OT working with patient. Would benefit from rehab. Case management assisting with placement recommendations DVT PPx on home Eliquis Full code Diabetic diet plan to closely monitor K level due to recurring hyperkalemia, CT abd positive for renal mass on R side, will try to transfer for higher level of care for nephrology and oncology service
--- NOTE | 2023-06-18 13:54 | EXP.EVENT.NO ---
patient has been accepted at [facility] for Oncology and nephrology, transfer for higher level of care for new R renal lesion, and servere recurring hyperkalemia, RAGHAV. Awaiting bed placement
[2023-06-18 14:18] LABS: Potassium 5.9 mmoL/L (3.5-5.1)
--- NOTE | 2023-06-18 17:23 | PC.NURSE ---
VS stable. Patient on 1 LNC. Patient had 2 bowel movements this shift. Alert and oriented times 4. Patient able to sit in chair for most of shift and transfer with one assist to bedside commode. Inspiratory and expiratory wheezing bilateral. No other changes noted
[2023-06-18 18:48] LABS: POC Glucose,Bedside 329 (70-110)
[2023-06-18 21:04] LABS: POC Glucose,Bedside 173 (70-110)
[2023-06-18] MEDS: QUETIAPINE 25MG TABLET 50 MG PO (21:04)
[2023-06-18] MEDS: PANTOPRAZOLE 40MG TABLET 40 MG PO (21:04)
[2023-06-18] MEDS: hydrOXYzine pamoate 25MG CAPSULE 25 MG PO (21:04)
[2023-06-18] MEDS: ATORVASTATIN 10MG TABLET 10 MG PO (21:04)
[2023-06-19] VITALS (12 sets, daily range): BP systolic 92–142; BP diastolic 50–75; PULSE 60–81; RESP 17–20; TEMP 36.1–36.9; O2SAT 90–100; BMI 26.4
[2023-06-19] MEDS: humaLOG 100 UNITS/ML 3ML VIAL (SSI) SQ ×2 (06:11→11:01)
[2023-06-19] MEDS: LEVALBUTEROL 1.25MG/3ML NEB 1.25 MG IH (06:22)
[2023-06-19] MEDS: FLUTICASONE/UMECLIDIN/VILANTER 100/62.5/25MCG INHALER 1 PUFF IH (06:22)
[2023-06-19 07:02] LABS: Basophils # 0.1 K/mm3 (0-0.2); Basophils % 0.6 % (0.1-2.0); Eosinophils # 0.4 K/mm3 (0.0-0.4); Eosinophils % 4.4 % (0.1-12.0); Hematocrit 36.5 % (37.0-47.0); Hemoglobin 11.3 g/dL (12.2-16.2); Lymphocytes # 3.7 K/mm3 (0.7-4.5); Mean Corpuscular HGB Conc 31.1 g/dL (31.8-35.4); Mean Corpuscular Hemoglobin 28.2 pg (27.0-31.2); Mean Corpuscular Volume 90.6 fl (81-99); Mean Platelet Volume 8.2 fl (7.4-10.4); Monocytes # 0.7 K/mm3 (0.1-1.0); Monocytes % 7.2 % (1.7-9.3); Neutrophils # 4.3 K/mm3 (1.8-7.8); Neutrophils % 46.7 % (37.0-80.0); Platelet Count 289 K/mm3 (142-424); Red Blood Count 4.03 M/mm3 (4.20-5.40); Red Cell Distribution Width 15.6 % (11.5-17.5); White Blood Count 9.1 K/mm3 (4.8-10.8)
[2023-06-19 07:09] LABS: Anion Gap 10.3 mEq/L (5-15); Blood Urea Nitrogen 65 mg/dl (7-17); Calcium 9.4 mg/dl (8.4-10.2); Carbon Dioxide 35 mmol/L (22.0-30.0); Chloride 99 mmol/L (98-107); Creatinine Clearance Estimated 38 mL/min (50-200); Estimated Glomerular Filt Rate 30 ml/min (>60); GFR (African American) 37 ML/MIN (>60); Glucose 173 mg/dl (74-100); Potassium 5.3 mmoL/L (3.5-5.1); Sodium 139 mmol/L (136-145)
[2023-06-19] MEDS: APIXABAN 5MG TABLET 5 MG PO (08:00)
[2023-06-19] MEDS: ISOSORBIDE MONO 30MG TAB.ER.24H 30 MG PO (08:00)
[2023-06-19] MEDS: BUSPIRONE HCL 10 MG TABLET PO (08:00)
[2023-06-19] MEDS: GABAPENTIN 300MG CAPSULE 300 MG PO ×2 (08:00→12:34)
[2023-06-19] MEDS: DAPAGLIFLOZIN PROPANEDIOL 10 MG TABLET PO (08:00)
[2023-06-19 08:01] LABS: POC Glucose,Bedside 410 (70-110)
[2023-06-19] MEDS: NICOTINE 21MG/24HR PATCH 21 MG TD (08:01)
[2023-06-19] MEDS: METOPROLOL TARTRATE 25MG TABLET 12.5 MG PO (08:01)
[2023-06-19] MEDS: SERTRALINE 100MG TABLET 200 MG PO (08:01)
[2023-06-19] MEDS: INSULIN GLARGINE 100 UNITS/ML 3ML FLEXPEN 9 UNIT SQ ×2 (08:17→17:04)
[2023-06-19] MEDS: OXYCODONE 7.5MG W/APAP 325MG TABLET 1 EACH PO ×3 (08:22→20:42)
[2023-06-19 10:59] LABS: POC Glucose,Bedside 443 (70-110)
[2023-06-19 11:39] LABS: Potassium 5.5 mmoL/L (3.5-5.1)
[2023-06-19] MEDS: LOKELMA 5GM PACKET 10 GM PO (13:26)
--- NOTE | 2023-06-19 15:11 | EXP.DC.SUM ---
General Admission date:: 06/14/23 Discharge date: 06/19/23 HPI HPI HPI: Ms. Bartlett is a 63-year-old female with chronic hypoxemic respiratory failure, chronic anticoagulation, poorly controlled diabetes, chronic pain, anxiety. Presented with shortness of breath and increased swelling in legs. Concern for acute on chronic hypoxemic respiratory failure due to CHF exacerbation and COPD exacerbation. Patient continues to smoke excessively 1-1/2 to 2 packs a day. Hospital Course Hospital Course Hospital Course: Ms. Bartlett is a 63-year-old female with chronic hypoxemic respiratory failure, chronic anticoagulation, poorly controlled diabetes, chronic pain, anxiety. Presented with shortness of breath and increased swelling in legs. Concern for acute on chronic hypoxemic respiratory failure due to CHF exacerbation and COPD exacerbation. Patient continues to smoke excessively 1-1/2 to 2 packs a day. Discussed case with ER, request admission for diuresis and further management. Medicine agreed to admit for further management. Initiated on doxycycline. Will continue these antibiotics for now. Pulmonology, cardiology, behavioral health consulted to assist with care. Concerned that patient severe anxiety underlies her readmission. She smokes heavily due to her anxiety which worsens her COPD and is led to her worsening shortness of breath. Will also have PT and OT evaluate her to evaluate for safety going home. Patient is scared about going to a assisted. Currently lives by herself and is reliant on family to grocery shop for her and check on her. She mobilizes with walker and wheelchair. Necessitating inpatient management. Diuresing well. Weaned to 3 L oxygen. Problems addressed as follows: # Acute on chronic chronic respiratory failure with hypoxia - stable and improved # COPD exacerbation - improved #Acute on chronic diastolic congestive heart failure - improved, on oral bumex Acute kidney injury Severe hypperkalemia - recurrent, - s/p insulin and D50, Kayexalate, and IV lasix CT abd pelvis - showed 2.5cm renal mass, may need abdominal MRI or oncology consult as inpatient vs OP, when more stable Patient needs nephrology and oncology services for recurring hyperkalemia and left renal lesion, patient will be transferred to higher level of care at [facility] time spent of transfer, patient care and documentation >38 mins Exam Data for Last 24 hours Vital signs and Labs for Last 24 Hours: Temp Pulse Resp BP Pulse Ox O2 Del Method O2 Flow Rate 97 F L 66 18 105/50 L 93 L Nasal Cannula 1 06/19/23 08:00 06/19/23 14:00 06/19/23 14:00 06/19/23 14:00 06/19/23 14:00 06/19/23 14:45 06/19/23 14:45 FiO2 28 06/14/23 21:31 Laboratory Results - last 24 hr 06/18/23 16:39: POC Glucose 329 H* 06/18/23 20:56: POC Glucose 173 H 06/19/23 06:50: WBC 9.1, RBC 4.03 L, Hgb 11.3 L, Hct 36.5 L, MCV 90.6, MCH 28.2, MCHC 31.1 L, RDW 15.6, Plt Count 289, MPV 8.2, Neut % (Auto) 46.7, Lymph % (Auto) 41.0, Mellette % (Auto) 7.2, Eos % (Auto) 4.4, Baso % (Auto) 0.6, Neut # (Auto) 4.3, Lymph # (Auto) 3.7, Mellette # (Auto) 0.7, Eos # (Auto) 0.4, Baso # (Auto) 0.1, Sodium 139, Potassium 5.3 H, Chloride 99, Carbon Dioxide 35 H, Anion Gap 10.3, BUN 65 H, Creatinine 1.70 H, Estimated Creat Clear 38, Estimated GFR 30 L, Est GFR ( Amer) 37 L, Glucose 173 H D, Calcium 9.4 06/19/23 07:53: POC Glucose 410 H* 06/19/23 10:51: POC Glucose 443 H* 06/19/23 11:21: Potassium 5.5 H I & O for Last 24 hours: Intake & Output 06/16/23 06/17/23 06/18/23 06/19/23 23:59 23:59 23:59 23:59 Intake Total 1670 / 1670 807 / 807 1620 / 1620 960 / 960 Output Total 1501 / 1501 2900 / 2900 1100 / 1100 150 / 150 Balance 169 / 169 -2093 / -2093 520 / 520 810 / 810 Weight 68.356 kg 70.307 kg 70.309 kg 70.309 kg Constitutional Constitutional: no acute distress *Routine HEENT Exam Head: Present normocephalic Eye: Present EOMI and PERRL ENT: Present mucous membranes moist *Routine Neck Exam Neck: Present supple; Absent lymphadenopathy *Routine Respiratory Exam Respiratory: Present wheezes *Routine Cardiovascular Exam Cardiovascular: Present RRR *Routine Abdominal Exam Abdominal: Present soft and normoactive bowel sounds; Absent tenderness *Routine Extremities Exam Extremities: Present edema; Absent cyanosis or clubbing *Routine Skin Exam Skin: Present warm; Absent rash *Routine Neurological Exam Neurological: Present alert and oriented X3 Results Data Completed and Pending Labs on day of discharge: Labs from last 24 hours 06/19/23 06/19/23 06/19/23 11:21 10:51 07:53 WBC RBC Hgb Hct MCV MCH MCHC RDW Plt Count MPV Neut % (Auto) Lymph % (Auto) Mellette % (Auto) Eos % (Auto) Baso % (Auto) Neut # (Auto) Lymph # (Auto) Mellette # (Auto) Eos # (Auto) Baso # (Auto) Sodium Potassium 5.5 H Chloride Carbon Dioxide Anion Gap BUN Creatinine Estimated Creat Clear Estimated GFR Est GFR ( Amer) Glucose POC Glucose 443 H* 410 H* Calcium 06/19/23 06/18/23 06/18/23 06:50 20:56 16:39 WBC 9.1 RBC 4.03 L Hgb 11.3 L Hct 36.5 L MCV 90.6 MCH 28.2 MCHC 31.1 L RDW 15.6 Plt Count 289 MPV 8.2 Neut % (Auto) 46.7 Lymph % (Auto) 41.0 Mellette % (Auto) 7.2 Eos % (Auto) 4.4 Baso % (Auto) 0.6 Neut # (Auto) 4.3 Lymph # (Auto) 3.7 Mellette # (Auto) 0.7 Eos # (Auto) 0.4 Baso # (Auto) 0.1 Sodium 139 Potassium 5.3 H Chloride 99 Carbon Dioxide 35 H Anion Gap 10.3 BUN 65 H Creatinine 1.70 H Estimated Creat Clear 38 Estimated GFR 30 L Est GFR ( Amer) 37 L Glucose 173 H D POC Glucose 173 H 329 H* Calcium 9.4 DS: Diagnosis Discharge Diagnosis (1) Acute and chronic respiratory failure with hypoxia: Status: Acute Code(s): J96.21 - Acute and chronic respiratory failure with hypoxia (2) Acute on chronic diastolic (congestive) heart failure: Status: Acute Code(s): I50.33 - Acute on chronic diastolic (congestive) heart failure (3) Chronic respiratory failure: Status: Acute Code(s): J96.10 - Chronic respiratory failure, unspecified whether with hypoxia or hypercapnia (4) Acute exacerbation of chronic obstructive pulmonary disease: Status: Acute Code(s): J44.1 - Chronic obstructive pulmonary disease with (acute) exacerbation (5) Paroxysmal atrial fibrillation: Status: Acute Code(s): I48.0 - Paroxysmal atrial fibrillation (6) Anxiety and depression: Status: Acute Code(s): F41.9 - Anxiety disorder, unspecified; F32.A - Depression, unspecified (7) Tobacco use: Status: Acute Code(s): Z72.0 - Tobacco use (8) Type 2 diabetes mellitus with hyperglycemia: Status: Chronic Code(s): E11.65 - Type 2 diabetes mellitus with hyperglycemia Qualifiers: Diabetes mellitus skilled nursing insulin use: without emt intermediate use Qualified Code(s): E11.65 - Type 2 diabetes mellitus with hyperglycemia (9) HTN (hypertension): Status: Chronic Code(s): I10 - Essential (primary) hypertension Qualifiers: Hypertension type: essential hypertension Qualified Code(s): I10 - Essential (primary) hypertension Meds Home Medications and Allergies Home Medications Medication Instructions Recorded Confirmed Type apixaban 5 mg tablet (Eliquis) 5 mg PO BID Blood Thinner 09/06/22 06/14/23 History metformin 500 mg tablet 1,000 mg (2 x 500 mg) PO BID 02/17/23 06/14/23 Rx Diabetes 90 days #360 tabs pantoprazole 40 mg tablet,delayed 40 mg PO DAILY Acid Reflux #90 tabs 03/25/23 06/14/23 Rx release buspirone 5 mg tablet 10 mg (2 x 5 mg) PO BID 30 days 03/31/23 06/14/23 Rx #60 tabs atorvastatin 10 mg tablet 10 mg PO HS 05/28/23 06/14/23 History dapagliflozin propanediol 10 mg 10 mg PO DAILY 05/28/23 06/14/23 History tablet (Farxiga) isosorbide mononitrate 30 mg 30 mg PO DAILY 05/28/23 06/14/23 History tablet,extended release 24 hr sertraline 100 mg tablet 150 mg PO DAILY 05/28/23 06/14/23 History fluticasone fur. 100 mcg-umeclid 1 inh inhalation DAILY 30 days #1 05/30/23 06/14/23 Rx 62.5 mcg-vilant 25 mcg ea inhalat.powder (Trelegy Ellipta) magnesium oxide 400 mg (241.3 mg 400 mg PO DAILY 30 days #30 tabs 05/30/23 06/14/23 Rx magnesium) tablet metoprolol tartrate 25 mg tablet 12.5 mg (1/2 x 25 mg) PO BID 30 05/30/23 06/14/23 Rx days #30 tabs quetiapine 25 mg tablet 50 mg (2 x 25 mg) PO HS 30 days 05/30/23 06/14/23 Rx #60 tabs gabapentin 300 mg capsule 300 mg PO TID #90 caps 06/09/23 06/14/23 Rx insulin glargine 100 unit/mL (3 9 unit (0.09 mL) SQ BID #15 mL 06/09/23 06/14/23 Rx mL) subcutaneous pen oxycodone-acetaminophen 7.5 mg-325 1 tab PO QIDP PRN Moderate Pain 06/09/23 06/14/23 Rx mg tablet (Scale Score 5-6) #120 tabs famotidine 20 mg tablet 20 mg PO BID 06/14/23 06/14/23 History insulin NPH-regular 70-30 U-100 8 unit SQ BIDWMEAL 06/14/23 06/14/23 History insulin 100 unit/mL subcutaneous pen (Humulin 70/30 U-100 KwikPen) pantoprazole 40 mg tablet,delayed 40 mg PO HS 14 days #14 tabs 06/19/23 Rx release New Prescriptions to Start Prescriptions: pantoprazole Luis Van Allergies Allergy/AdvReac Type Severity Reaction Status Date / Time methocarbamol Allergy Severe Altered Verified 06/09/23 13:53 mental status terbutaline [TERBUTALINE] Allergy Severe SWELLS Verified 06/09/23 13:53 THROAT aspirin [ASPIRIN] Allergy Intermediate I-RASH Verified 06/09/23 13:53 codeine [CODEINE] Allergy Intermediate Swelling Verified 06/09/23 13:53 of the Eye diphenhydramine Allergy Intermediate Hives Verified 06/09/23 13:53 [From Benadryl] Sulfa (Sulfonamide Allergy Intermediate Hives Verified 06/09/23 13:53 Antibiotics) [SULFA (SULFONAMIDE ANTIBIOTICS)] sulfamethoxazole Allergy Intermediate Hives Verified 06/09/23 13:53 [From Bactrim] trimethoprim [From Bactrim] Allergy Intermediate Hives Verified 06/09/23 13:53 naproxen [NAPROXEN] Allergy Mild itching Verified 06/09/23 13:53 tramadol [TRAMADOL] Allergy Mild Vomiting Verified 06/09/23 13:53 citalopram [CITALOPRAM] Allergy Unknown SKIN PEEL Verified 06/09/23 13:53 erythromycin base Allergy Unknown I-RASH Verified 06/09/23 13:53 [ERYTHROMYCIN BASE] Penicillins [PENICILLINS] Allergy Unknown I-RASH Verified 06/09/23 13:53 bupropion [BUPROPION] AdvReac Severe Hallucinati Verified 06/09/23 13:53 ng duloxetine [DULOXETINE] AdvReac Severe Hallucinati Verified 06/09/23 13:53 ng pregabalin [PREGABALIN] AdvReac Severe Hallucinati Verified 06/09/23 13:53 ng celecoxib [From CELEBREX] AdvReac Mild Vomiting Verified 06/09/23 13:53 Discharge Plan Disposition Patient Disposition: [facility] Condition: Fair Discharge Order Discharge Orders: Discharge Order (Routine); Ordered 06/19/23 Ordered By: Luis Van Follow up Plan Follow up with: Cornell Hernandez DO [Primary Care Provider] - Enter time for follow up Flora Davis, BUSINESS OFFICE SPECIALIST [Nurse Practitioner] - Enter time for follow up Raghavendra Granda MD [Physician] - Enter time for follow up Nathaniel Jay MD [Staff Physician] - Enter time for follow up Prescriptions/Medication Reconciliation: New pantoprazole 40 mg Tablet,Delayed Release (Dr/Ec) 40 mg PO HS 14 Days Qty: 14 0RF Continued insulin glargine 100 unit/mL (3 mL) insulin pen 9 unit SQ BID Qty: 15 2RF gabapentin 300 mg capsule 300 mg PO TID Qty: 90 2RF oxycodone-acetaminophen 7.5-325 mg tablet 1 tab PO QIDP PRN (Reason: Moderate Pain (Scale Score 5-6)) Qty: 120 0RF metformin 500 mg tablet 1,000 mg PO BID 90 Days Qty: 360 2RF buspirone 5 mg tablet 10 mg PO BID 30 Days Qty: 60 4RF pantoprazole 40 mg tablet,delayed release (DR/EC) 40 mg PO DAILY Qty: 90 0RF Eliquis 5 mg tablet 5 mg PO BID Patient Comments: TAKE ONE TABLET BY MOUTH TWICE DAILY FOR BLOOD THINNER atorvastatin 10 mg tablet 10 mg PO HS Patient Comments: TAKE ONE TABLET BY MOUTH EVERY DAY AT BEDTIME dapagliflozin propanediol [Farxiga] 10 mg tablet 10 mg PO DAILY Patient Comments: TAKE ONE TABLET BY MOUTH EVERY DAY isosorbide mononitrate 30 mg tablet extended release 24 hr 30 mg PO DAILY sertraline 100 mg tablet 150 mg PO DAILY Patient Comments: TAKE 1 AND 1/2 TABLET BY MOUTH EVERY DAY Trelegy Ellipta 100-62.5-25 mcg Blister With Device 1 inh inhalation DAILY 30 Days Qty: 1 0RF metoprolol tartrate 25 mg Tablet 12.5 mg PO BID 30 Days Qty: 30 0RF quetiapine 25 mg Tablet 50 mg PO HS 30 Days Qty: 60 0RF magnesium oxide 400 mg (241.3 mg magnesium) Tablet 400 mg PO DAILY 30 Days Qty: 30 0RF famotidine 20 mg tablet 20 mg PO BID Patient Comments: TAKE ONE TABLET BY MOUTH TWICE DAILY Humulin 70/30 U-100 KwikPen 100 unit/mL (70-30) insulin pen 8 unit SQ BIDWMEAL Patient Comments: INJECT 8 UNITS SUBCUTANEOUSLY TWICE DAILY DIRECTED Problem Reconciliation Problems Reviewed?: Yes Patient Discharge Instructions ACTIVITY: Ambulate as tolerated DIET: renal Patient Instructions: DI for Heart Failure, DI for Chronic Obstructive Pulmonary Disease, DI for Cardiac Catheterization, DI for Respiratory Failure Providers Primary Care Provider: Cornell Hernandez Admit Provider: Sherman Chang Attending Provider: Sherman Chang
[2023-06-19 16:18] LABS: POC Glucose,Bedside 146 (70-110)
--- NOTE | 2023-06-19 16:22 | PC.NURSE ---
Patient has done well this shift. A&Ox4. X1 assist to bedside commode. Patient has sat in chair most of the day. Tolerating 1L NC well. Bilateral inspiratory/expiratory wheezing noted on assessments. One BM this shift.
--- NOTE | 2023-06-19 22:39 | PC.NURSE ---
Patient left floor with EMS for transfer at 22:38.
== END 2023-06-19 22:40 | disposition short-term general hospital (02) | DRG 286 ==
LOC: ER 23:48 → 2ND 23:54
PROVIDERS: Internal Medicine; Internal Medicine Pulmonary Disease; Nurse Practitioner Family; Admitting Provider Internal Medicine Adolescent Medicine; Emergency Provider Emergency Medicine; PCP Internal Medicine; Visit Provider Internal Medicine Adolescent Medicine
PROC: 4A023N6 Measurement of Cardiac Sampling and Pressure, Right Heart, Percutaneous Approach (ICD-10-PCS; principal; 2023-06-16 13:45)
DX: I13.0 Hypertensive heart and chronic kidney disease with heart failure and stage 1 through stage 4 chronic kidney disease, or unspecified chronic kidney disease (principal); I50.33 Acute on chronic diastolic (congestive) heart failure; J96.21 Acute and chronic respiratory failure with hypoxia; J44.1 Chronic obstructive pulmonary disease with (acute) exacerbation; J96.11 Chronic respiratory failure with hypoxia; F41.9 Anxiety disorder, unspecified; F32.A Depression, unspecified; E11.65 Type 2 diabetes mellitus with hyperglycemia; I48.0 Paroxysmal atrial fibrillation; E11.42 Type 2 diabetes mellitus with diabetic polyneuropathy; Z79.4 Long term (current) use of insulin; I11.0 Hypertensive heart disease with heart failure; Z99.81 Dependence on supplemental oxygen; E11.22 Type 2 diabetes mellitus with diabetic chronic kidney disease; N18.9 Chronic kidney disease, unspecified; Z86.73 Personal history of transient ischemic attack (TIA), and cerebral infarction without residual deficits; Z86.718 Personal history of other venous thrombosis and embolism; E11.51 Type 2 diabetes mellitus with diabetic peripheral angiopathy without gangrene; F17.210 Nicotine dependence, cigarettes, uncomplicated; B19.20 Unspecified viral hepatitis C without hepatic coma; E66.9 Obesity, unspecified; Z68.26 Body mass index [BMI] 26.0-26.9, adult; G89.29 Other chronic pain; E83.42 Hypomagnesemia; E87.5 Hyperkalemia; I27.20 Pulmonary hypertension, unspecified; K21.9 Gastro-esophageal reflux disease without esophagitis; G25.81 Restless legs syndrome; Z79.84 Long term (current) use of oral hypoglycemic drugs
CPT/HCPCS: 36415; 51702; 71045; 71250; 74176; 80048; 80053; 80076; 81001; 82803; 82810; 82962; 83605; 83735; 83880; 84132; 84484; 85007; 85025; 87581; 87632; 87635; 87636; 87798; 93005; 93451; 93970; 94640; 94761; 97110; 97116; 97162; 97165; 97530; 99152; 99291; J1644; J3475

== ENCOUNTER 2023-08-23 10:00 | Outpatient (CLI) | payer MEDICARE, MEDICAID, SELFPAY ==
[2023-08-23 18:59] LABS: Basophils # 0.1 K/mm3 (0-0.2); Basophils % 0.7 % (0.1-2.0); Eosinophils # 0.2 K/mm3 (0.0-0.4); Eosinophils % 1.2 % (0.1-12.0); Hemoglobin 13.3 g/dL (12.2-16.2); Lymphocytes # 3.4 K/mm3 (0.7-4.5); Mean Corpuscular Hemoglobin 26.7 pg (27.0-31.2); Mean Corpuscular Volume 86.2 fl (81-99); Mean Platelet Volume 9.6 fl (7.4-10.4); Monocytes % 7.3 % (1.7-9.3); Neutrophils # 9.1 K/mm3 (1.8-7.8); Neutrophils % 65.9 % (37.0-80.0); Platelet Count 523 K/mm3 (142-424); Red Blood Count 4.99 M/mm3 (4.20-5.40); Red Cell Distribution Width 15.2 % (11.5-17.5); White Blood Count 13.8 K/mm3 (4.8-10.8)
[2023-08-23 19:09] LABS: Anion Gap 18.7 mEq/L (5-15); Bilirubin,Total 0.5 mg/dl (0.2-1.3); Blood Urea Nitrogen 75 mg/dl (7-17); Calcium 8.9 mg/dl (8.4-10.2); Carbon Dioxide 26 mmol/L (22.0-30.0); Chloride 97 mmol/L (98-107); Estimated Glomerular Filt Rate 18 ml/min (>60); GFR (African American) 22 ML/MIN (>60); Glucose 137 mg/dl (74-100); Magnesium 1.4 mg/dl (1.6-2.3); Potassium 4.7 mmoL/L (3.5-5.1); Sodium 137 mmol/L (136-145)
[2023-08-23 19:10] LABS: Alanine Aminotransferase 26 U/L (12-78); Albumin Level 3.8 g/dl (3.5-5.0); Alkaline Phosphatase 168 U/L (38-126); Aspartate Amino Transferase 37 U/L (14-36); Total Protein,Serum 7.8 g/dl (6.3-8.2)
[2023-08-23 19:37] LABS: Creatinine,Urine Random 173 mg/dL (Not Estab.)
[2023-08-24 00:28] LABS: Microalbumin > 1140.000 mg/L (0-16.7); Microalbumin/Creatinine Ratio 658.9
[2023-08-24 16:26] LABS: Hemoglobin A1C 8.5 % (4.0-6.0)
== END 2023-08-23 23:59 | disposition home or self-care (01) ==
LOC: LAB.DROPOF 08-24 10:37
PROVIDERS: PCP Internal Medicine; Visit Provider Internal Medicine
DX: E87.5 Hyperkalemia (principal); E11.9 Type 2 diabetes mellitus without complications; E11.42 Type 2 diabetes mellitus with diabetic polyneuropathy; Z79.4 Long term (current) use of insulin
CPT/HCPCS: 80053; 82043; 82570; 83036; 83735; 85025

== ENCOUNTER 2023-09-03 16:00 | Observation (INO) | payer MEDICARE, MEDICAID, SELFPAY ==
[2023-09-03] VITALS (11 sets, daily range): BP systolic 101–180; BP diastolic 63–144; PULSE 60–75; RESP 16–22; TEMP 36.9–37.2; O2SAT 96–100; BMI 22.3; BMI 24.8
--- NOTE | 2023-09-03 16:11 | ED_ITS ---
Discharge Plan Disposition Patient Disposition: Admitted Prescriptions Prescriptions: New ondansetron 4 mg tablet,disintegrating 4 mg PO Q8H PRN (Reason: nausea and vomiting) 4 Days Qty: 12 0RF No Action insulin glargine 100 unit/mL (3 mL) insulin pen 9 unit SQ BID Qty: 15 2RF bumetanide 2 mg tablet 2 mg PO DAILY insulin lispro [Admelog SoloStar U-100 Insulin] 100 unit/mL insulin pen 1 sliding scale dose SQ USEASDIRECTD polyethylene glycol 3350(bulk) [Base B,Polyethylene [id number]] Granules miscellaneous gabapentin 300 mg capsule 300 mg PO TID Qty: 90 2RF oxycodone-acetaminophen 7.5-325 mg tablet 1 tab PO TID PRN (Reason: Moderate Pain (Scale Score 5-6)) Qty: 90 0RF docusate sodium 100 mg capsule 100 mg PO DAILY Qty: 90 0RF (DME) blood-glucose meter Kit See Rx Instructions .ROUTE .MEDSUPPLY Qty: 1 0RF Rx Instructions: As directed bid ,whatever insurance will pay for along with the lancets and strips ipratropium-albuterol 0.5 mg-3 mg(2.5 mg base)/3 mL solution for nebulization 3 ml inhalation Q4-6H PRN metformin 500 mg tablet 1,000 mg PO BID 90 Days Qty: 360 2RF pantoprazole 40 mg tablet,delayed release (DR/EC) 40 mg PO DAILY Qty: 90 0RF atorvastatin 10 mg tablet See Rx Instructions .ROUTE .COMPLEX Qty: 90 0RF Dose Instruction: TAKE ONE TABLET BY MOUTH EVERY DAY AT BEDTIME Rx Instructions: TAKE ONE TABLET BY MOUTH EVERY DAY AT BEDTIME isosorbide mononitrate 30 mg tablet extended release 24 hr See Rx Instructions .ROUTE .COMPLEX Qty: 90 0RF Dose Instruction: TAKE ONE TABLET BY MOUTH EVERY DAY Rx Instructions: TAKE ONE TABLET BY MOUTH EVERY DAY (DME) pen needle, diabetic [Comfort EZ Pen [place]] 32 gauge x 1/4 needle See Rx Instructions .ROUTE .COMPLEX Qty: 100 2RF Dose Instruction: USE DIRECTED Rx Instructions: USE DIRECTED famotidine 20 mg tablet 20 mg PO BID Qty: 60 1RF Rx Instructions: Needs appt for further refills buspirone 5 mg tablet See Rx Instructions .ROUTE .COMPLEX Qty: 60 4RF Dose Instruction: TAKE TWO TABLETS BY MOUTH TWICE DAILY MAY CAUSE DROWSINESS Rx Instructions: TAKE TWO TABLETS BY MOUTH TWICE DAILY MAY CAUSE DROWSINESS Eliquis 5 mg tablet 5 mg PO BID Patient Comments: TAKE ONE TABLET BY MOUTH TWICE DAILY FOR BLOOD THINNER sertraline 100 mg tablet 150 mg PO DAILY Patient Comments: TAKE 1 AND 1/2 TABLET BY MOUTH EVERY DAY Trelegy Ellipta 100-62.5-25 mcg Blister With Device 1 inh inhalation DAILY 30 Days Qty: 1 0RF metoprolol tartrate 25 mg Tablet 12.5 mg PO BID 30 Days Qty: 30 0RF quetiapine 25 mg Tablet 50 mg PO HS 30 Days Qty: 60 0RF Referrals Follow up/Referrals: Hemanth Nava MD [Staff Physician] - See instructions Cornell Whitlock MD [Referring] - See instructions Clinical Impressions Clinical Impression: Kidney mass, Abdominal pain, Compression fracture, Vomiting, Diarrhea, CKD (chronic kidney disease), Chronic uremia Instructions Patient Instructions: DI for Diarrhea and Traveler's Diarrhea -- Adult, DI for Diarrhea and Traveler's Diarrhea -- Child, DI for Nausea -- Adult, DI for Nausea -- Child Discharge ED Provider: Perez Rodrigez General Adult HPI General Chief complaint: Nausea/Vomiting/Diarrhea Stated complaint: N/V, fever Time Seen by Provider: 09/03/23 16:05 Mode of Arrival: Ambulatory Source of Information: Patient Limitations: No Limitations Description of Symptoms (Recalled from ER Triage Doc. by RN): pt to ed diarrhea x1w associated with n/v & fever today. pt reports abd cramping. History of Present Illness HPI narrative: Patient is a 63-year-old female that is very comorbid with insulin-dependent diabetes, chronic low back pain, mixed type COPD on 3 L nasal cannula at baseline, previous TIA, GERD, chronic chest pain, lymphedema, hepatitis C who presents emergency department for evaluation of vomiting diarrhea. Onset was acute, 1 week ago. There is associated dysuria. There is associated right- sided abdominal pain although she has had previous cholecystectomy and appendectomy. No chest pain reported. She has back pain that is worse than normal, denies trauma. Her oxygen requirement is at baseline. Due to persistent symptoms she presents here for continued evaluation. No trauma. Related Data Home Medications Medication Instructions Recorded Confirmed apixaban 5 mg tablet (Eliquis) 5 mg PO BID Blood Thinner 09/06/22 06/14/23 sertraline 100 mg tablet 150 mg PO DAILY 05/28/23 06/14/23 bumetanide 2 mg tablet 2 mg PO DAILY 08/23/23 08/23/23 insulin lispro 100 unit/mL 1 sliding scale dose SQ 08/23/23 08/23/23 subcutaneous pen (Admelog SoloStar USEASDIRECTD U-100 Insulin lispro) polyethylene glycol 3350(bulk) ea miscellaneous 08/23/23 08/23/23 (Base B, Polyethylene Glycol 3350 granules) ipratropium 0.5 mg-albuterol 3 mg 3 ml inhalation Q4-6H PRN 08/24/23 08/24/23 (2.5 mg base)/3 mL nebulization soln Previous Rx's Medication Instructions Recorded metformin 500 mg tablet 1,000 mg (2 x 500 mg) PO BID 02/17/23 Diabetes 90 days #360 tabs pantoprazole 40 mg tablet,delayed 40 mg PO DAILY Acid Reflux #90 tabs 03/25/23 release fluticasone fur. 100 mcg-umeclid 1 inh inhalation DAILY 30 days #1 05/30/23 62.5 mcg-vilant 25 mcg ea inhalat.powder (Trelegy Ellipta) metoprolol tartrate 25 mg tablet 12.5 mg (1/2 x 25 mg) PO BID 30 05/30/23 days #30 tabs quetiapine 25 mg tablet 50 mg (2 x 25 mg) PO HS 30 days 05/30/23 #60 tabs insulin glargine 100 unit/mL (3 9 unit (0.09 mL) SQ BID #15 mL 06/09/23 mL) subcutaneous pen atorvastatin 10 mg tablet See Rx Instructions .Route 06/21/23 .COMPLEX #90 tabs isosorbide mononitrate 30 mg See Rx Instructions .Route 06/21/23 tablet,extended release 24 hr .COMPLEX #90 tabs pen needle, diabetic 32 gauge x #100 ea 08/19/2302/17 (Comfort EZ Pen [place]) famotidine 20 mg tablet 20 mg PO BID #60 tabs 08/20/23 buspirone 5 mg tablet See Rx Instructions .Route 08/22/23 .COMPLEX #60 tabs gabapentin 300 mg capsule 300 mg PO TID #90 caps 08/23/23 oxycodone-acetaminophen 7.5 mg-325 1 tab PO TID PRN Moderate Pain 08/23/23 mg tablet (Scale Score 5-6) #90 tabs blood-glucose meter #1 ea 08/24/23 docusate sodium 100 mg capsule 100 mg PO DAILY #90 caps 08/24/23 ondansetron 4 mg disintegrating 4 mg PO Q8H PRN nausea and 09/03/23 tablet vomiting 4 days #12 tabs Allergies Allergy/AdvReac Type Severity Reaction Status Date / Time methocarbamol Allergy Severe Altered Verified 08/23/23 08:54 mental status terbutaline [TERBUTALINE] Allergy Severe SWELLS Verified 08/23/23 08:54 THROAT aspirin [ASPIRIN] Allergy Intermediate I-RASH Verified 08/23/23 08:54 codeine [CODEINE] Allergy Intermediate Swelling Verified 08/23/23 08:54 of the Eye diphenhydramine Allergy Intermediate Hives Verified 08/23/23 08:54 [From Benadryl] Sulfa (Sulfonamide Allergy Intermediate Hives Verified 08/23/23 08:54 Antibiotics) [SULFA (SULFONAMIDE ANTIBIOTICS)] sulfamethoxazole Allergy Intermediate Hives Verified 08/23/23 08:54 [From Bactrim] trimethoprim [From Bactrim] Allergy Intermediate Hives Verified 08/23/23 08:54 naproxen [NAPROXEN] Allergy Mild itching Verified 08/23/23 08:54 tramadol [TRAMADOL] Allergy Mild Vomiting Verified 08/23/23 08:54 citalopram [CITALOPRAM] Allergy Unknown SKIN PEEL Verified 08/23/23 08:54 erythromycin base Allergy Unknown I-RASH Verified 08/23/23 08:54 [ERYTHROMYCIN BASE] Penicillins [PENICILLINS] Allergy Unknown I-RASH Verified 08/23/23 08:54 fluticasone Allergy Verified 08/23/23 08:54 [From Advair Diskus] salmeterol Allergy Verified 08/23/23 08:54 [From Advair Diskus] bupropion [BUPROPION] AdvReac Severe Hallucinati Verified 08/23/23 08:54 ng duloxetine [DULOXETINE] AdvReac Severe Hallucinati Verified 08/23/23 08:54 ng pregabalin [PREGABALIN] AdvReac Severe Hallucinati Verified 08/23/23 08:54 ng celecoxib [From CELEBREX] AdvReac Mild Vomiting Verified 08/23/23 08:54 [facility] Disclaimer: The information contained in this section may have been updated after the patient was seen, as this information can be updated by other users. Medical History Cough Hyperkalemia Chronic respiratory failure with hypoxia COPD mixed type Elevated liver enzymes Paroxysmal atrial fibrillation Acute on chronic heart failure with preserved ejection fraction (HFpEF) Suicidal ideation Depression with suicidal ideation Abnormality of lung on CXR Pneumonia Acute and chronic respiratory failure with hypoxia Chest pain Abnormal ankle brachial index (DAVE) Pyelonephritis Restless leg syndrome Hepatitis B Depression Anxiety I think this patient's anxiety is partially related to cognitive deficits. She may well have beginning dementia. She has been cared for by her daughter. Will just follow this closely. Chronic kidney disease Sleep apnea Migraine History of transient ischemic attack (TIA) History of hip fracture History of gastroesophageal reflux (GERD) Diabetes mellitus, type 2 We tried to send this patient to endocrinology but she has been in the hospital and had multiple other problems. She cannot get the 70[address] her on glargine at 9 units twice daily. This may not be enough but I do not want to overshoot. Will see her back in approximately 2 to 3 weeks. I have suggested that they check blood sugars write them down and bring them in with her at her next visit. Hyperlipidemia Congestive heart failure Nonspecific chest pain Hip fracture Failure to thrive Closed femur fracture Instability of left knee joint Left knee pain Vaginal pain Abnormal computed tomography angiography (CTA) of abdomen and pelvis Claudication Decreased pedal pulses Other specified symptoms and signs involving the circulatory and respiratory systems Acquired hammer toes of both feet Chronic deep vein thrombosis (DVT) of right lower extremity Primary osteoarthritis of both feet Overweight (BMI 25.0-29.9) Acute worsening of stage 3 chronic kidney disease Diabetes mellitus with neuropathy Left leg swelling Lymphedema Plantar fasciitis, left Foot pain, left Very concerned about the possibility of fracture in this patient. Will send her for x-rays. Obesity (BMI 30.0-34.9) C. difficile colitis RAGHAV (acute kidney injury) Sepsis Community acquired pneumonia Osteoarthritis of feet, bilateral Diabetic peripheral neuropathy associated with type 2 diabetes mellitus Onychoincurvatum Hepatitis C Chest pain Normal coronary arteries Foot pain, right COPD (chronic obstructive pulmonary disease) DVT (deep venous thrombosis) Cellulitis of right foot Hep B w/o coma Hep C w/o coma, chronic Endothelial dysfunction of coronary artery Elevated left ventricular end-diastolic pressure (LVEDP) Cauda equina syndrome Lumbar compression fracture ANNIE on CPAP Langerhan's cell histiocytosis SOB (shortness of breath) on exertion Atrial fibrillation HTN (hypertension) PAD (peripheral artery disease) Abdominal pain Diabetes mellitus Renal insufficiency Acute exacerbation of chronic obstructive airways disease Neck Pain Back pain Surgical History History of cholecystectomy History of appendectomy History of hysterectomy History of cardiac cath Family History Other Coronary artery disease Family history of diabetes mellitus type II Family history of hyperlipidemia Family history of hypertension Social History Smoking Status: Former smoker tobacco type: cigarettes packs per day: 2 second hand exposure: Yes alcohol intake: never counseling provided: none substance use type: denies use current occupational status: retired Travel in the last 8 weeks: None household members: none housing: house lives independently: Yes marital status: education level: middle school current occupational exposures/hazards: No caffeine: Yes special ping needs: No agree to transfusion: No do you feel safe at home: Yes victim of physical abuse: No victim of emotional abuse: No victim of sexual abuse: No would you like helpful sources: No ROS Obtained: Yes Systems reviewed as appropriate & no additional complaints except as documented Physical Exam General General appearance: alert and other (Appearing in pain) Head Head exam: atraumatic and normocephalic Eye Eye exam: Present PERRL ENT ENT exam: Present mucous membranes moist Neck Neck exam: Present normal inspection Chest Chest inspection: Present normal inspection and symmetric chest wall rise Respiratory Respiratory exam: Present normal lung sounds bilaterally; Absent respiratory distress, wheezes or accessory muscle use Cardiovascular Cardiovascular exam: Present regular rate and normal rhythm Abdominal Exam Abdominal exam: Present soft and tenderness (Right hemiabdominal) Extremities Exam Extremities exam: Present normal inspection Back Exam Back exam: Present tenderness (Diffuse, lumbar spine. No tenderness in the cervical or thoracic spine.) and other (Lumbar bandlike distribution tenderness) Neurological Exam Neurological exam: Present alert Psychiatric Psychiatric exam: Present normal affect Skin Skin exam: Present warm and dry Medical Decision Making Jordin Inquiry Pt receiving controlled substance: No Vital Signs: 09/03/23 16:00 09/03/23 16:00 09/03/23 16:31 Temperature 98.5 F Temperature Source Oral Pulse Rate 75 71 Pulse Rate [Left Radial] 73 Respiratory Rate 20 Blood Pressure 105/64 L 126/72 Blood Pressure [Right Arm] 113/66 Blood Pressure Mean 73 Blood Pressure Mean [Right Arm] 81 02 Sat by Pulse Oximetry 99 99 96 Oxygen Delivery Method Room Air Oxygen Flow Rate (LPM) 09/03/23 17:02 09/03/23 17:31 Temperature Temperature Source Pulse Rate 71 61 Pulse Rate [Left Radial] Respiratory Rate Blood Pressure 115/69 119/86 Blood Pressure [Right Arm] Blood Pressure Mean Blood Pressure Mean [Right Arm] 02 Sat by Pulse Oximetry 99 99 Oxygen Delivery Method Room Air Nasal Cannula Oxygen Flow Rate (LPM) 3 Lab Data Lab Results 09/03/23 15:55: WBC 13.8 H, RBC 5.05, Hgb 13.6, Hct 42.8, MCV 84.8, MCH 27.0, MCHC 31.8, RDW 15.9, Plt Count 381, MPV 8.5, Neut % (Auto) 65.9, Lymph % (Auto) 26.9, [place] % (Auto) 5.4, Eos % (Auto) 0.6, Baso % (Auto) 1.1, Neut # (Auto) 9.1 H, Lymph # (Auto) 3.7, [place] # (Auto) 0.7, Eos # (Auto) 0.1, Baso # (Auto) 0.2, Sodium 136, Potassium 5.2 H, Chloride 101, Carbon Dioxide 21 L, Anion Gap 19.2 H , BUN 82 H, Creatinine 2.40 H, Estimated Creat Clear 23, Estimated GFR 20 L, Est GFR ( Amer) 25 L, Glucose 148 H, Calcium 8.8, Total Bilirubin 0.8, AST 61 H, ALT 47, Alkaline Phosphatase 144 H, Troponin I < 0.01, Total Protein 8.0, Albumin 3.9, Globulin 4.1 H, Albumin/Globulin Ratio 1.0 L, Lipase 96, SARS-CoV-2 (PCR) Not detected, Influenza A Untype (PCR) Not detected, Influenza Type B (PCR) Not detected 09/03/23 19:35: Troponin I < 0.01 09/03/23 20:48: Urine Color Yellow, Urine Appearance Clear, Urine pH 5.5, Ur Specific [place] 1.015, Urine Protein 2+, Urine Glucose (UA) Negative, Urine Ketones Negative, Urine Blood Negative, Urine Nitrate Negative, Urine Bilirubin Negative, Urine Urobilinogen 0.2, Ur Leukocyte Esterase 2+ A 09/03/23 15:55 09/03/23 15:55 Orders (Tests/Meds): ED MEDICATIONS Discontinued Medications Generic Name Dose Route Start Last Admin Trade Name Freq PRN Reason Stop Dose Admin Acetaminophen 1,000 mg 09/03/23 16:14 09/03/23 16:40 Acetaminophen 1,000mg/100ml Vial IV 09/03/23 16:15 1,000 mg ONCE ONE Administration Lactated Ringer's 1,000 mls @ 999 mls/hr 09/03/23 16:14 09/03/23 16:40 Lactated Ringer's 1000 Ml Bag IV 09/03/23 17:14 999 mls/hr .Q1H1M ONE Administration Iopamidol 65 ml 09/03/23 17:56 09/03/23 17:57 Iopamidol-370 (76%);100ml Bottle IV 09/03/23 17:57 65 ml ONCE ONE Administration Oxycodone HCl 7.5 mg 09/03/23 16:14 09/03/23 16:39 Oxycodone 5mg Immediate Release Tablet PO 09/03/23 16:15 7.5 mg ONCE ONE Administration Sodium Chloride 10 ml 09/03/23 17:56 09/03/23 17:57 Sodium Chloride 0.9% 10ml Syr (Rad Only) IV 09/03/23 17:57 10 ml ONCE ONE Administration ORDERS Category Date Time Status CT abdomen pelvis w con Stat Cat Scan 09/03/23 16:14 Completed CBC w/Auto Diff [Complete Blood Count Auto Diff] Stat Lab 09/03/23 15:55 Completed CMP [Comprehensive Metabolic Panel] Stat Lab 09/03/23 15:55 Completed Lipase Stat Lab 09/03/23 15:55 Completed Rapid PCR Covid and Flu A/B Stat Lab 09/03/23 15:55 Completed Trop I [Troponin I] Stat Lab 09/03/23 15:55 Completed Troponin I Q3H Lab 09/03/23 19:35 Completed Troponin I Q3H Lab 09/03/23 22:15 Ordered UA [Urinalysis and Microscopic] Stat Lab 09/03/23 20:48 Results Urine Culture Stat Micro 09/03/23 20:48 Received ECG Data Tracing #1: Independently interpreted by me rate 73, rhythm is regular, axis is normal, significant chatter in the anterolateral leads, no definitive ST elevation in anatomical contiguous leads, QTc 437. Medical Decision Narrative: In summary patient is a 63-year-old female past medical history described above who presents emergency department for evaluation of abdominal pain, vomiting, diarrhea. Patient is hemodynamically stable nontoxic-appearing upon arrival, afebrile. Patient is in pain upon arrival however is due for her chronic pain medication by couple of hours which will be administered orally. Ofirmev will be administered as well. Differential diagnosis includes urinary tract infection, gastroenteritis, pancreatitis, among others. No melena or hematochezia reported to suggest GI bleed. Workup will be conducted with hematologic labs, urinalysis, CT abdomen pelvis IV contrast. Initial inventions include crystalloid bolus. Initial workup reviewed by me, hematologic labs have stable leukocytosis, mild hyperkalemia which does not need any acute intervention, stable CKD, lipase normal. CT abdomen pelvis shows mass in the left kidney which is the same from June of this year, moderate stenosis of the infrarenal aorta due to atherosclerosis, new compression insufficiency fractures of L2 and L5 since June. These fractures do not have critical height loss that would warrant emergent transfer at this time. Patient does not have any symptoms of claudication with her stenotic infrarenal aorta that would warrant emergent evaluation at this time. Urinalysis has leuk esterase positive however otherwise negative, formal microscopic pending. With respect to stenosis at L3/L4 due to retropulsion from an old compression fracture the case was discussed with [facility] spine surgery, no acute intervention is warranted and patient is appropriate for pain control at our institution. Patient underwent ambulation trial at bedside and had significant difficulty and pain requiring a walker which is not her baseline. Given this patient will benefit from physical therapy evaluation and likely fitting for TLSO brace. With respect to the other findings with her renal mass, downtrending creatinine in the setting of vomiting and diarrhea, uremia without encephalopathy or pericarditis or significant diarrhea while in the emergency department, mild hyperkalemia I do not think that she needs emergent/urgent dialysis is appropriate for admission to our institution however will benefit from renal input on outpatient basis. Urine microscopy pending at time of admission Critical Care Critical Care Time Critical Care Time: No
--- NOTE | 2023-09-03 16:11 | ECG_ITS ---
APPROVED REPORT Exam: Resting ECG HR:73 bpm ECG Measurements Heart Rate 73 AXES QRSd 85 QRS 0 QT 411 T 50 QTc 437 Conclusion SUPRAVENTRICULAR RHYTHM MODERATE VOLTAGE CRITERIA FOR LVH, CONSIDER NORMAL VARIANT [MEETS CRITERIA IN ONE OF: R(aVL), S(V1), R(V5), R(V5/V6)+S(V1)] ABNORMAL RHYTHM ECG Significant chatter limits diagnostic ability of this EKG Electronically signed by : STEPHANIE AMOS, 09/04/2023 00:14:04
--- OUTSIDE RECORDS SUMMARY | 2023-09-03 16:12 | XMS_ITS | Encounter Summary ---
Author Name Unknown Organization [facility] Address [address] [place] [id number] Encounter Details Date Type Department Care Team Description 2023-08-03 Telephone [facility] [address] [place] [id number] Tiffanie Ryder Medication Reconciliation was successfully completed by the [facility]. ASSESSMENT No Information TREATMENT PLAN No Information
--- NOTE | 2023-09-03 16:14 | CT_ITS ---
PROCEDURE INFORMATION: Exam: CT Abdomen And Pelvis With Contrast Exam date and time: 09/03/2023 5:50 PM Age: 63 years old Clinical indication: Other: Dysuria; Abdominal pain; Additional info: Severe R hemiabdominal pain, dysuria TECHNIQUE: Imaging protocol: Computed tomography of the abdomen and pelvis with contrast. Radiation optimization: All CT scans at this facility use at least one of these dose optimization techniques: automated exposure control; mA and/or kV adjustment per patient size (includes targeted exams where dose is matched to clinical indication); or iterative reconstruction. Contrast material: ISOVUE; Contrast volume: 75 ml; Contrast route: IV; COMPARISON: 1. CT ABDOMEN PELVIS W CON 09/03/2023 5:[address] ABDOMEN PELVIS WO CON 06/17/2023 12:38 PM 3. No intestinal masses, bowel wall thickening, or abnormal luminal dilatation. Diverticula are present in the descending and sigmoid colon without evidence of diverticulitis. FINDINGS: Lungs: No consolidation, lung nodules, or pleural effusions. Liver: No mass. No evidence of fat deposition. No surrounding fluid. Gallbladder and biliary ducts: Gallbladder is surgically absent. No biliary ductal dilatation. Pancreas: Few punctate calcifications in the head of the pancreas without a mass or ductal dilatation. Spleen: No splenomegaly. No masses or surrounding fluid. Adrenal glands: No mass. Kidneys and ureters: 2.7 cm, heterogeneous, enhancing, exophytic mass in the mid left kidney. No other solid masses, calcified stones, or hydroureteronephrosis. Stomach and bowel: Diverticulosis scattered throughout the entire colon with no evidence of diverticulitis. No intestinal masses, bowel wall thickening, or abnormal luminal dilatation. Appendix: No evidence of appendicitis. Intraperitoneal space: No free air. No masses or significant fluid collection. Vasculature: Endovascular stent in the right common iliac artery is patent. Moderate atherosclerotic calcifications. 50-69% stenosis in the infrarenal aorta. No aortic aneurysm. Lymph nodes: No enlarged lymph nodes. Urinary bladder: No masses or asymmetric wall thickening. Reproductive: No abnormalities as visualized. Bones/joints: Central compression fracture of the inferior vertebral body endplate of L2 is an interval change causing 10-15% loss of vertebral body height. Compression fracture of L4 is unchanged, has 20-25% loss of vertebral body height, and has retrolisthesis of the superior posterior cortex that causes spinal stenosis in conjunction with short pedicles. Compression fracture of L5 is an interval change since 06/17/2023 and has 10-15% loss of vertebral body height. Soft tissues: No masses or other abnormalities. IMPRESSION: 1. Heterogeneous enhancing 2.7 cm mass in the mid left kidney is suspicious for renal cell carcinoma. This is the same mass discussed on 06/17/2023 CT scan. 2. No other evidence of malignancy or metastatic disease in the abdomen. 3. Moderate, 50-69% stenosis in the infrarenal aorta due to heavy atherosclerotic calcification. Stent in the right common iliac artery is patent. 4. New compression, insufficiency fractures of L2 and L5 since 06/17/2023. 5. Spinal stenosis at L3-L4 in part due to retropulsion from an old L4 compression fracture.
[2023-09-03 16:23] LABS: Chloride 101 mmol/L (98-107)
[2023-09-03 16:24] LABS: Potassium 5.2 mmoL/L (3.5-5.1); Sodium 136 mmol/L (136-145)
[2023-09-03 16:25] LABS: Basophils # 0.2 K/mm3 (0-0.2); Basophils % 1.1 % (0.1-2.0); Eosinophils # 0.1 K/mm3 (0.0-0.4); Eosinophils % 0.6 % (0.1-12.0); Hematocrit 42.8 % (37.0-47.0); Hemoglobin 13.6 g/dL (12.2-16.2); Lymphocytes # 3.7 K/mm3 (0.7-4.5); Lymphocytes % 26.9 % (10-50); Mean Corpuscular HGB Conc 31.8 g/dL (31.8-35.4); Mean Corpuscular Volume 84.8 fl (81-99); Mean Platelet Volume 8.5 fl (7.4-10.4); Monocytes # 0.7 K/mm3 (0.1-1.0); Monocytes % 5.4 % (1.7-9.3); Neutrophils # 9.1 K/mm3 (1.8-7.8); Neutrophils % 65.9 % (37.0-80.0); Platelet Count 381 K/mm3 (142-424); Red Blood Count 5.05 M/mm3 (4.20-5.40); Red Cell Distribution Width 15.9 % (11.5-17.5); White Blood Count 13.8 K/mm3 (4.8-10.8)
[2023-09-03 16:26] LABS: Alanine Aminotransferase 47 U/L (12-78); Alkaline Phosphatase 144 U/L (38-126); Anion Gap 19.2 mEq/L (5-15); Aspartate Amino Transferase 61 U/L (14-36); Bilirubin,Total 0.8 mg/dl (0.2-1.3); Carbon Dioxide 21 mmol/L (22.0-30.0); Creatinine Clearance Estimated 23 mL/min (50-200); Estimated Glomerular Filt Rate 20 ml/min (>60); GFR (African American) 25 ML/MIN (>60)
[2023-09-03 16:27] LABS: Albumin Level 3.9 g/dl (3.5-5.0); Calcium 8.8 mg/dl (8.4-10.2); Globulin 4.1 g/dL (1.3-3.2); Glucose 148 mg/dl (74-100); Lipase 96 U/L (23-300)
[2023-09-03 16:29] LABS: Blood Urea Nitrogen 82 mg/dl (7-17)
[2023-09-03] MEDS: OXYCODONE 5MG IMMEDIATE RELEASE TABLET 7.5 MG PO (16:39)
[2023-09-03 16:40] LABS: Troponin I < 0.01 ng/ml (0.00-0.034)
[2023-09-03] MEDS: LACTATED RINGERS 1000ML 1,000 ML 999 ML IV (16:40)
[2023-09-03] MEDS: ACETAMINOPHEN 1,000MG/100ML VIAL 1000 MG IV (16:40)
--- NOTE | 2023-09-03 17:00 | PC.NURSE ---
pt was assisted to restroom via wheelchair with o2 in place on 3 liters and mobile tank by myself and felix
--- NOTE | 2023-09-03 17:08 | PC.NURSE ---
pt was helped back to room by felix and myself
[2023-09-03 17:11] LABS: Coronavirus 19, PCR Not Detected (NotDetected); Influenza A, PCR Not Detected (NotDetected); Influenza B, PCR Not Detected (NotDetected)
[2023-09-03] MEDS: IOPAMIDOL-370 (76%);100ML BOTTLE 65 ML IV (17:57)
[2023-09-03] MEDS: SODIUM CHLORIDE 0.9% 10ML SYR (RAD ONLY) 10 ML IV (17:57)
--- NOTE | 2023-09-03 19:46 | PC.NURSE ---
Rounded on pt. Pt has been provided with a sandwich, chips, and a beverage. Lab is in the room at this time. no other needs at this time, call light within reach of pt.
[2023-09-03 20:08] LABS: Troponin I < 0.01 ng/ml (0.00-0.034)
--- NOTE | 2023-09-03 20:12 | PC.NURSE ---
called pt's daughter for a ride, she is going to call their neighbor to see about helping. Staff is walking pt's with Leonor
--- NOTE | 2023-09-03 20:17 | PC.NURSE ---
ambulated pt at this time. pt did not tolerate well d/t back pain. MD Rodrigez notified . Michelle Fairchild on phone with for spine consult per MD Rodrigez
--- NOTE | 2023-09-03 20:23 | PC.NURSE ---
Updated pt's daughter with the plan of care, updated that pt will not be d/c yet.
[2023-09-03 20:52] LABS: Microscopic, Urine URINE MICROSCOPIC (MICROSCOPIC)
[2023-09-03 20:54] LABS: Appearance,Urine CLEAR (Clear); Bilirubin,Urine Negative (Negative); Blood, Urine Negative (Negative); Color,Urine YELLOW (Yellow); Glucose,Urine (UA) Negative (Negative); Ketones,Urine Negative (Negative); Leukocyte Esterase,Urine 2+ (Negative); Nitrate,Urine Negative (Negative); PH,Urine 5.5 (5.0-8.5); Protein,Urine 2+ (Negative); Specific Gravity, Urine 1.015 (1.005-1.030); Urobilinogen,Urine 0.2 EU/dl (0.2)
--- NOTE | 2023-09-03 21:15 | PC.NURSE ---
Dr. Rodrigez is s/w [facility] at this time
[2023-09-03 21:17] LABS: Bacteria,Urine Trace /lpf; Hyaline Casts,Urine Occasional #/lpf (0); Squamous Epithelial Cell,Urine Occasional #/hpf (0-5)
--- NOTE | 2023-09-03 21:17 | PC.NURSE ---
warehouse man called at this time. made aware of pt being admitted. pt is being admitted to hospitalist for compression fractures.
--- NOTE | 2023-09-03 21:25 | PC.NURSE ---
Received report from Zuleyma in ER
--- NOTE | 2023-09-03 21:53 | PC.NURSE ---
Patient arrived to floor via wheelchair from Ed at 21:45.
--- NOTE | 2023-09-03 22:09 | EXP.HP ---
History of Present Illness *Admission Date: 09/03/23 *Reason for visit:: Back pain, Nausea/Vomiting *History of present illness: Kassy Bartlett is a 63 year old female PMH significant for uncontrolled insulin dependent type 2 diabates, HTN, COPD on 3L NC at baseline, a fib on eliquis, HFpEF, Hep C who presents to the emergency room today with complaints of nausea, vomiting, diarrhea, and back pain. Pt is a very poor historian. Tells me that she has had diarrhea ongoing for the last week or so. Also reports some nausea and vomiting, nonbloody nonbilious emesis noted. Patient biggest concern seems to be her back pain today. Patient is rocking back and forth complains of low back pain, in a bandlike distribution across her lower lumbar spine. Pain is nonradiating, no radiculopathy, no numbness or tingling noted. No saddle paresthesias noted. Denies any trauma or fall recently. Was admitted At [facility] in June for recurrent hyperkalemia with a left renal lesion. Patient was supposed to follow-up with nephrology and oncology. Patient is unable to tell me whether or not she has followed up with any sort of renal or oncology physicians. Does not remember what her primary care physician said approximately 10 days ago. Does report poor p.o. intake over the last week or more and has vomited multiple times. Also multiple episodes of diarrhea noted. Patient denies any worsening shortness of breath, no chest pain, cough, fever noted. Denies any abdominal pain at this time. No swelling in her legs or feet, no recent weight gain or weight loss. Denies any dysuria, hematuria. No black or bloody stools noted. Does take Eliquis for her A-fib, reports compliance with this. Patient tells me she stopped smoking a few months back, however, it is noted in her primary care physician's note from August 22 that she continues to smoke at least a pack of cigarettes or more daily. Denies any alcohol or illicit drug use. Lab work in the ER showed an elevated white count of 13.8, potassium slightly elevated at 5.2, BUN 82, creatinine 2.4 which is downtrending from 2.72 weeks ago. Troponin was negative. UA was positive for leuk esterase, [address] trace bacteria. CT abdomen pelvis shows the ongoing 2.7 cm mass in the left kidney suspicious for renal cell carcinoma, compression fractures of L2 and L5 and an old compression fracture at L4 with retropulsion. ER physician contacted [facility], spine surgery agreed that she could be braced here in a TLSO. She was given 1 L IV fluid bolus in the ER as well as pain medications. She will be admitted to the hospitalist service for intractable back pain. [facility] Disclaimer: The information contained in this section may have been updated after the patient was seen, as this information can be updated by other users. Medical History (Updated 09/04/23 @ 11:29 by Sherman Chang MD) RAGHAV (acute kidney injury) C. difficile colitis Cough Hyperkalemia Chronic respiratory failure with hypoxia COPD mixed type Elevated liver enzymes Paroxysmal atrial fibrillation Acute on chronic heart failure with preserved ejection fraction (HFpEF) Suicidal ideation Depression with suicidal ideation Abnormality of lung on CXR Pneumonia Acute and chronic respiratory failure with hypoxia Chest pain Abnormal ankle brachial index (DAVE) Pyelonephritis Restless leg syndrome Hepatitis B Depression Anxiety Chronic kidney disease Sleep apnea Migraine History of transient ischemic attack (TIA) History of hip fracture History of gastroesophageal reflux (GERD) Diabetes mellitus, type 2 Hyperlipidemia Congestive heart failure Nonspecific chest pain Hip fracture Failure to thrive Closed femur fracture Instability of left knee joint Left knee pain Vaginal pain Abnormal computed tomography angiography (CTA) of abdomen and pelvis Claudication Decreased pedal pulses Other specified symptoms and signs involving the circulatory and respiratory systems Acquired hammer toes of both feet Chronic deep vein thrombosis (DVT) of right lower extremity Primary osteoarthritis of both feet Overweight (BMI 25.0-29.9) Acute worsening of stage 3 chronic kidney disease Diabetes mellitus with neuropathy Left leg swelling Lymphedema Plantar fasciitis, left Foot pain, left Obesity (BMI 30.0-34.9) Sepsis Community acquired pneumonia Osteoarthritis of feet, bilateral Diabetic peripheral neuropathy associated with type 2 diabetes mellitus Onychoincurvatum Hepatitis C Chest pain Normal coronary arteries Foot pain, right COPD (chronic obstructive pulmonary disease) DVT (deep venous thrombosis) Cellulitis of right foot Hep B w/o coma Hep C w/o coma, chronic Endothelial dysfunction of coronary artery Elevated left ventricular end-diastolic pressure (LVEDP) Cauda equina syndrome Lumbar compression fracture ANNIE on CPAP Langerhan's cell histiocytosis SOB (shortness of breath) on exertion Atrial fibrillation HTN (hypertension) PAD (peripheral artery disease) Abdominal pain Diabetes mellitus Renal insufficiency Acute exacerbation of chronic obstructive airways disease Neck Pain Back pain Surgical History History of cholecystectomy History of appendectomy History of hysterectomy History of cardiac cath Family History Other Coronary artery disease Family history of diabetes mellitus type II Family history of hyperlipidemia Family history of hypertension Social History (Updated 09/03/23 @ 22:34 by Joi Hardwick RN) Smoking Status: Former smoker tobacco type: cigarettes packs per day: 2 second hand exposure: Yes alcohol intake: never counseling provided: none substance use type: denies use current occupational status: retired Travel in the last 8 weeks: None household members: none housing: house lives independently: Yes marital status: education level: middle school current occupational exposures/hazards: No caffeine: Yes special ping needs: No agree to transfusion: No do you feel safe at home: Yes victim of physical abuse: No victim of emotional abuse: No victim of sexual abuse: No would you like helpful sources: No Review of Systems Review of Systems Review of systems:: pertinent systems reviewed and negative unless documented below *Gastrointestinal Gastrointestinal: Reports loose stools and Reports vomiting *Musculoskeletal Musculoskeletal: Reports back pain Meds Home Medications and Allergies Home Medications Medication Instructions Recorded Confirmed Type apixaban 5 mg tablet (Eliquis) 5 mg PO BID Blood Thinner 09/06/22 09/03/23 History metformin 500 mg tablet 1,000 mg (2 x 500 mg) PO BID 02/17/23 09/03/23 Rx Diabetes 90 days #360 tabs pantoprazole 40 mg tablet,delayed 40 mg PO DAILY Acid Reflux #90 tabs 03/25/23 09/03/23 Rx release sertraline 100 mg tablet 150 mg PO DAILY 05/28/23 09/03/23 History fluticasone fur. 100 mcg-umeclid 1 inh inhalation DAILY 30 days #1 05/30/23 09/03/23 Rx 62.5 mcg-vilant 25 mcg ea inhalat.powder (Trelegy Ellipta) metoprolol tartrate 25 mg tablet 12.5 mg (1/2 x 25 mg) PO BID 30 05/30/23 09/03/23 Rx days #30 tabs quetiapine 25 mg tablet 50 mg (2 x 25 mg) PO HS 30 days 05/30/23 09/03/23 Rx #60 tabs insulin glargine 100 unit/mL (3 9 unit (0.09 mL) SQ BID #15 mL 06/09/23 09/03/23 Rx mL) subcutaneous pen pen needle, diabetic 32 gauge x #100 ea 08/19/23 09/04/23 Rx 1/4 (Comfort EZ Pen [place]) famotidine 20 mg tablet 20 mg PO BID #60 tabs 08/20/23 09/03/23 Rx bumetanide 2 mg tablet 2 mg PO DAILY 08/23/23 09/03/23 History gabapentin 300 mg capsule 300 mg PO TID #90 caps 08/23/23 09/03/23 Rx insulin lispro 100 unit/mL 1 sliding scale dose SQ 08/23/23 09/03/23 History subcutaneous pen (Admelog SoloStar USEASDIRECTD U-100 Insulin lispro) oxycodone-acetaminophen 7.5 mg-325 1 tab PO TID PRN Moderate Pain 08/23/23 09/03/23 Rx mg tablet (Scale Score 5-6) #90 tabs polyethylene glycol 3350(bulk) 1 ea miscellaneous DAILY 08/23/23 09/03/23 History (Base B, Polyethylene Glycol 3350 granules) blood-glucose meter #1 ea 08/24/23 09/04/23 Rx docusate sodium 100 mg capsule 100 mg PO DAILY #90 caps 08/24/23 09/03/23 Rx ipratropium 0.5 mg-albuterol 3 mg 3 ml inhalation Q4-6H PRN COPD 08/24/23 09/03/23 History (2.5 mg base)/3 mL nebulization soln atorvastatin 10 mg tablet 10 mg PO HS 09/03/23 09/03/23 History buspirone 5 mg tablet 10 mg PO BID 09/03/23 09/03/23 History isosorbide mononitrate 30 mg 30 mg PO DAILY 09/03/23 09/03/23 History tablet,extended release 24 hr ondansetron 4 mg disintegrating 4 mg PO Q8H PRN nausea and 09/03/23 Rx tablet vomiting 4 days #12 tabs New Prescriptions to Start Prescriptions: ondansetron Rodrigez,Perez G Allergies Allergy/AdvReac Type Severity Reaction Status Date / Time methocarbamol Allergy Severe Altered Verified 08/23/23 08:54 mental status terbutaline [TERBUTALINE] Allergy Severe SWELLS Verified 08/23/23 08:54 THROAT aspirin [ASPIRIN] Allergy Intermediate I-RASH Verified 08/23/23 08:54 codeine [CODEINE] Allergy Intermediate Swelling Verified 08/23/23 08:54 of the Eye diphenhydramine Allergy Intermediate Hives Verified 08/23/23 08:54 [From Benadryl] Sulfa (Sulfonamide Allergy Intermediate Hives Verified 08/23/23 08:54 Antibiotics) [SULFA (SULFONAMIDE ANTIBIOTICS)] sulfamethoxazole Allergy Intermediate Hives Verified 08/23/23 08:54 [From Bactrim] trimethoprim [From Bactrim] Allergy Intermediate Hives Verified 08/23/23 08:54 naproxen [NAPROXEN] Allergy Mild itching Verified 08/23/23 08:54 tramadol [TRAMADOL] Allergy Mild Vomiting Verified 08/23/23 08:54 citalopram [CITALOPRAM] Allergy Unknown SKIN PEEL Verified 08/23/23 08:54 erythromycin base Allergy Unknown I-RASH Verified 08/23/23 08:54 [ERYTHROMYCIN BASE] Penicillins [PENICILLINS] Allergy Unknown I-RASH Verified 08/23/23 08:54 fluticasone Allergy Verified 08/23/23 08:54 [From Advair Diskus] salmeterol Allergy Verified 08/23/23 08:54 [From Advair Diskus] bupropion [BUPROPION] AdvReac Severe Hallucinati Verified 08/23/23 08:54 ng duloxetine [DULOXETINE] AdvReac Severe Hallucinati Verified 08/23/23 08:54 ng pregabalin [PREGABALIN] AdvReac Severe Hallucinati Verified 08/23/23 08:54 ng celecoxib [From CELEBREX] AdvReac Mild Vomiting Verified 08/23/23 08:54 Exam Data for Last 24 hours Vital signs and Labs for Last 24 Hours: Temp Pulse Resp BP Pulse Ox O2 Del Method O2 Flow Rate 98.5 F 71 20 115/89 99 Nasal Cannula 3 09/03/23 16:00 09/03/23 21:00 09/03/23 21:00 09/03/23 21:00 09/03/23 21:00 09/03/23 21:00 09/03/23 17:31 Laboratory Results - last 24 hr 09/03/23 15:55: WBC 13.8 H, RBC 5.05, Hgb 13.6, Hct 42.8, MCV 84.8, MCH 27.0, MCHC 31.8, RDW 15.9, Plt Count 381, MPV 8.5, Neut % (Auto) 65.9, Lymph % (Auto) 26.9, [place] % (Auto) 5.4, Eos % (Auto) 0.6, Baso % (Auto) 1.1, Neut # (Auto) 9.1 H, Lymph # (Auto) 3.7, [place] # (Auto) 0.7, Eos # (Auto) 0.1, Baso # (Auto) 0.2, Sodium 136, Potassium 5.2 H, Chloride 101, Carbon Dioxide 21 L, Anion Gap 19.2 H, BUN 82 H, Creatinine 2.40 H, Estimated Creat Clear 23, Estimated GFR 20 L, Est GFR ( Amer) 25 L, Glucose 148 H, Calcium 8.8, Total Bilirubin 0.8, AST 61 H, ALT 47, Alkaline Phosphatase 144 H, Troponin I < 0.01, Total Protein 8.0, Albumin 3.9, Globulin 4.1 H, Albumin/Globulin Ratio 1.0 L, Lipase 96, SARS-CoV-2 (PCR) Not detected, Influenza A Untype (PCR) Not detected, Influenza Type B (PCR) Not detected 09/03/23 19:35: Troponin I < 0.01 09/03/23 20:48: Urine Color Yellow, Urine Appearance Clear, Urine pH 5.5, Ur Specific [place] 1.015, Urine Protein 2+, Urine Glucose (UA) Negative, Urine Ketones Negative, Urine Blood Negative, Urine Nitrate Negative, Urine Bilirubin Negative, Urine Urobilinogen 0.2, Ur Leukocyte Esterase 2+ A, Urine RBC None, Urine WBC 5-10, Ur Squamous Epith Cells Occasional, Urine Bacteria Trace, Hyaline Casts Occasional I & O for Last 24 hours: Intake & Output 08/31/23 09/01/23 09/02/23 09/03/23 23:59 23:59 23:59 23:59 Weight 58.967 kg *Routine HEENT Exam Head: Present normocephalic and atraumatic Eye: Present EOMI and PERRL ENT: Present mucous membranes moist *Routine Neck Exam Neck: Present supple *Routine Respiratory Exam Respiratory: Present wheezes, diminished air movement and able to speak in complete sentences *Routine Cardiovascular Exam Cardiovascular: Present Normal S1 and Normal S2 *Routine Abdominal Exam Abdominal: Present soft and normoactive bowel sounds *Routine Rectal Exam Rectal:: deferred *Routine Genitalia Exam Genitalia:: deferred *Routine Extremities Exam Extremities: Present pulses intact and normal capillary refill Routine Back/Spine/Pelvis Exam Back/Spine: Present paraspinal tenderness and muscle spasm *Routine Skin Exam Skin: Present intact *Routine Neurological Exam Neurological: Present alert and oriented X3 Assessment and Plan *Assessment and plan (1) RAGHAV (acute kidney injury): Status: Acute Category: Medical Code(s): N17.9 - Acute kidney failure, unspecified (2) C. difficile colitis: Status: Acute Category: Medical Code(s): A04.72 - Enterocolitis due to Clostridium difficile, not specified as recurrent (3) CKD (chronic kidney disease): Status: Acute Category: Medical Code(s): N18.9 - Chronic kidney disease, unspecified (4) Hyperkalemia: Status: Acute Category: Medical Code(s): E87.5 - Hyperkalemia (5) Kidney mass: Status: Acute Category: Medical Code(s): N28.89 - Other specified disorders of kidney and ureter (6) Compression fracture: Status: Acute Category: Medical (7) Paroxysmal atrial fibrillation: Status: Acute Category: Medical Code(s): I48.0 - Paroxysmal atrial fibrillation (8) Acute on chronic heart failure with preserved ejection fraction (HFpEF): Status: Acute Category: Medical Code(s): I50.33 - Acute on chronic diastolic (congestive) heart failure (9) Diabetes mellitus, type 2: Status: Acute Qualifiers: Diabetes mellitus complication detail: with polyneuropathy Diabetes mellitus complication status: with neurologic complications Diabetes mellitus buttermaker helper insulin use: with buttermaker helper use Qualified Code(s): E11.42 - Type 2 diabetes mellitus with diabetic polyneuropathy; 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 Not sure how severe her COPD is as there are no pulmonary function test in the record. However I strongly encouraged her to quit tobacco. Her daughter accompanies her and agrees with this. Status: Acute Qualifiers: COPD type: unspecified COPD Qualified Code(s): J44.9 - Chronic obstructive pulmonary disease, unspecified Category: Medical Code(s): J44.9 - Chronic obstructive pulmonary disease, unspecified (13) HTN (hypertension): Status: Chronic Qualifiers: Hypertension type: essential hypertension Qualified Code(s): I10 - Essential (primary) hypertension Category: Medical Code(s): I10 - Essential (primary) hypertension Plan Assessment: This is a 63-year-old female being admitted for intractable back pain secondary to compression fractures. On my exam, patient is sitting up in bed, complaining of back pain, appearing anxious but in no acute distress. Plan: Admit to observation-MedSurg Intractable back pain Compression fracture Chronic pain -Will order TLSO brace -Pain management as needed, continue home medication regimen of Percocet 3 times daily -Lidocaine patches -PT consult Diarrhea -Stool sample obtained, patient found to be C. difficile positive. Initiated on vancomycin 125 mg orally every 6 hours. RAGHAV on CKD stage 3b Renal mass Hyperkalemia -Creatinine downtrending from 2 weeks ago, patient also with poor p.o. intake along with vomiting and diarrhea -Received 1 L IV fluid bolus in the ER, will give maintenance IV fluids x 1 bag at 100 cc an hour, will need to monitor fluid status closely?she does have a history of HFpEF -Avoid nephrotoxic medications -Renal dose medications as needed -Monitor BUN and creatinine -Is supposed to follow-up with oncology as an outpatient, not sure if she was able to see oncology at [facility] when she was there back in June, have requested records -Monitor potassium levels, patient mildly hyperkalemic at this time, giving maintenance IV fluids which should help with potassium level Insulin-dependent type 2 diabetes -A1c done at PCPs office 2 weeks ago was 8.5 -Continue Lantus -SSI for additional glycemic control -Holding metformin -Carb consistent renal diet PAF -Continue Eliquis, beta-gordon HFpEF -Last heart cath done in May showed mild pulmonary hypertension with normal filling pressures -Strict I's and O's -Daily weights -Holding Bumex for now COPD Chronic hypoxic respiratory failure -Not acute exacerbation, patient does wear 2 to 3 L nasal cannula at home and is currently at her baseline oxygen requirements in the hospital -Resume home medications where appropriate -Maintain SpO2 greater than 90% Anxiety/depression -Continue Seroquel, Zoloft, BuSpar HTN HLD -Continue beta-gordon, Imdur, statin DVT prophylaxis: Eliquis CODE STATUS: Full code Surrogate decision maker: Sandy [phone] Skin: Moderate risk Rounded on patient after nurse practitioner. Personally examined and interviewed patient. Agree with exam findings and care plan as documented.
[2023-09-03] MEDS: LIDOCAINE 5% TRANSDERMAL PATCH 2 EACH TP (22:35)
[2023-09-03] MEDS: 0.9 % SODIUM CHLORIDE 1000ML 1,000 ML 100 ML IV (22:56)
[2023-09-03 23:00] LABS: Troponin I < 0.01 ng/ml (0.00-0.034)
[2023-09-04] MEDS: APIXABAN 5MG TABLET 2.5 MG PO ×3 (00:01→20:48)
[2023-09-04 00:17] LABS: Adenovirus F 40/41, stool Not Detected (NotDetected); Astrovirus Not Detected (NotDetected); Campylobacter Not Detected (NotDetected); Cryptosporidium Not Detected (NotDetected); Cyclospora Cayetanesis Not Detected (NotDetected); Entamoeba histolytica Not Detected (NotDetected); Enteroaggregative E coli Not Detected (NotDetected); Enteropathogenic E coli Not Detected (NotDetected); Enterotoxigenic E coli Not Detected (NotDetected); Giardia lamblia Not Detected (NotDetected); Norovirus Not Detected (NotDetected); Plesimonas Shigalloides, PCR Not Detected (NotDetected); Rotavirus A Not Detected (NotDetected); Salmonella, PCR Not Detected (NotDetected); Sapovirus Not Detected (NotDetected); Shiga-like toxin E coli Not Detected (NotDetected); Shigella Enterovasive E coli Not Detected (NotDetected); Vibrio Cholerae Not Detected (NotDetected); Vibrio, PCR Not Detected (NotDetected); Yersinia Entercolitica, PCR Not Detected (NotDetected)
[2023-09-04] MEDS: OXYCODONE 7.5MG W/APAP 325MG TABLET 1 EACH PO ×4 (01:25→22:21)
[2023-09-04 02:48] LABS: POC Glucose,Bedside 269 (70-110)
[2023-09-04] MEDS: ACETAMINOPHEN 325MG TAB 650 MG PO ×2 (02:58→13:24)
[2023-09-04 03:14] VITALS: O2SAT 97
[2023-09-04 04:00] VITALS: BMI 24.8
--- NOTE | 2023-09-04 04:16 | PC.NURSE ---
Patient alert and oriented x4 throughout shift. Tolerating 3L NC, which is patients home baseline with O2 stats >90%. Patient complains of diarrhea x1 week, has only had one loose bowel movement so far this shift. 2 lidocaine patches applied to patients lower back for pain control. Pain medicines administered per APR. Patient currently has NS running in her right hand at 100 mls/hr. Ambulating to bedside commode with x1 assist and is tolerating well. Patient has not rested much this shift. VSS. Bed alarm active for patient safety. Call light within reach.
--- NOTE | 2023-09-04 04:31 | PC.NURSE ---
Received critical report from Tere in lab. Patient is positive for c-diff
[2023-09-04 04:32] LABS: Clostridium Difficile A/B, PCR Detected (NotDetected)
[2023-09-04 06:25] LABS: POC Glucose,Bedside 112 (70-110)
[2023-09-04 08:00] VITALS: BP 133/73; PULSE 75; RESP 20; TEMP 37.1; O2SAT 97
[2023-09-04 08:52] LABS: Basophils # 0.2 K/mm3 (0-0.2); Basophils % 1.3 % (0.1-2.0); Eosinophils # 0.2 K/mm3 (0.0-0.4); Eosinophils % 1.4 % (0.1-12.0); Hematocrit 37.2 % (37.0-47.0); Hemoglobin 12.3 g/dL (12.2-16.2); Lymphocytes # 3.9 K/mm3 (0.7-4.5); Lymphocytes % 29.7 % (10-50); Mean Corpuscular HGB Conc 33.1 g/dL (31.8-35.4); Mean Corpuscular Hemoglobin 27.4 pg (27.0-31.2); Mean Corpuscular Volume 82.7 fl (81-99); Mean Platelet Volume 8.2 fl (7.4-10.4); Monocytes # 0.8 K/mm3 (0.1-1.0); Monocytes % 6.2 % (1.7-9.3); Neutrophils % 61.4 % (37.0-80.0); Platelet Count 325 K/mm3 (142-424); Red Cell Distribution Width 15.9 % (11.5-17.5)
[2023-09-04 08:56] LABS: Chloride 106 mmol/L (98-107)
[2023-09-04 08:57] LABS: Sodium 137 mmol/L (136-145)
[2023-09-04 08:59] LABS: Alanine Aminotransferase 41 U/L (12-78); Alkaline Phosphatase 150 U/L (38-126); Anion Gap 14.7 mEq/L (5-15); Aspartate Amino Transferase 74 U/L (14-36); Bilirubin,Total 0.6 mg/dl (0.2-1.3); Blood Urea Nitrogen 78 mg/dl (7-17); Carbon Dioxide 20 mmol/L (22.0-30.0); Creatinine Clearance Estimated 24 mL/min (50-200); Estimated Glomerular Filt Rate 20 ml/min (>60); GFR (African American) 24 ML/MIN (>60); Potassium 3.7 mmoL/L (3.5-5.1)
[2023-09-04 09:02] LABS: Albumin Level 3.5 g/dl (3.5-5.0); Albumin/Globulin Ratio 1.1 (1.1-1.8); Calcium 7.9 mg/dl (8.4-10.2); Globulin 3.3 g/dL (1.3-3.2); Glucose 184 mg/dl (74-100); Total Protein,Serum 6.8 g/dl (6.3-8.2)
[2023-09-04] MEDS: BUSPIRONE HCL 10 MG TABLET PO ×2 (09:03→20:49)
[2023-09-04] MEDS: PANTOPRAZOLE 40MG TABLET 40 MG PO (09:03)
[2023-09-04] MEDS: METOPROLOL TARTRATE 25MG TABLET 12.5 MG PO ×2 (09:03→20:50)
[2023-09-04] MEDS: ISOSORBIDE MONO 30MG TAB.ER.24H 30 MG PO (09:03)
[2023-09-04] MEDS: SERTRALINE 100MG TABLET 150 MG PO (09:03)
[2023-09-04] MEDS: VANCOMYCIN HCL 50MG/ML 150ML KIT 125 MG PO ×4 (09:03→20:53)
[2023-09-04] MEDS: GABAPENTIN 300MG CAPSULE 300 MG PO ×2 (09:03→20:49)
[2023-09-04] MEDS: FLUTICASONE/UMECLIDIN/VILANTER 100/62.5/25MCG INHALER 1 PUFF IH (09:16)
[2023-09-04 09:17] VITALS: O2SAT 97
[2023-09-04] MEDS: INSULIN GLARGINE 100 UNITS/ML 3ML FLEXPEN 9 UNIT SQ ×3 (09:41→21:00)
[2023-09-04 10:59] LABS: POC Glucose,Bedside 204 (70-110)
[2023-09-04] MEDS: humaLOG 100 UNITS/ML 10ML VIAL (SSI) SQ ×3 (11:24→21:05)
--- NOTE | 2023-09-04 11:30 | EXP.ACUTE.PN ---
Subjective *Date: 09/04/23 *Time: 11:30 Interval history: Patient still feeling weak. Legs are heavy. Having diarrhea overnight. No vomiting or fever overnight. Tolerating small portion of her breakfast however. Has complained of some nausea. Medical Exam Vital signs and Labs for Last 24 Hours: Vital Signs Temp Pulse Pulse Resp BP BP Pulse Ox 09/04/23 10:53 09/04/23 09:17 97 09/04/23 09:00 09/04/23 08:00 09/04/23 08:00 98.7 F 75 20 133/73 97 09/04/23 06:54 09/04/23 05:10 09/04/23 03:14 97 09/04/23 02:58 09/04/23 01:00 09/03/23 23:00 09/03/23 22:22 98.9 F 70 18 101/63 L 97 09/03/23 22:08 98.4 F 71 16 115/89 09/03/23 21:00 71 20 115/89 99 09/03/23 20:39 60 22 173/144 H 98 09/03/23 20:01 72 20 152/86 H 98 09/03/23 19:30 66 20 174/101 H 97 09/03/23 19:00 64 22 180/95 H 100 09/03/23 17:31 61 119/86 99 09/03/23 17:02 71 115/69 99 09/03/23 16:31 71 126/72 96 09/03/23 16:00 75 105/64 L 99 09/03/23 16:00 98.5 F 73 20 113/66 99 O2 Del Method O2 Flow Rate 09/04/23 10:53 Nasal Cannula 3 09/04/23 09:17 Nasal Cannula 2 09/04/23 09:00 Room Air 09/04/23 08:00 Nasal Cannula 2 09/04/23 08:00 Nasal Cannula 2 09/04/23 06:54 Nasal Cannula 3 09/04/23 05:10 Nasal Cannula 3 09/04/23 03:14 Nasal Cannula 3 09/04/23 02:58 Nasal Cannula 3 09/04/23 01:00 Nasal Cannula 3 09/03/23 23:00 Nasal Cannula 3 09/03/23 22:22 Nasal Cannula 2 09/03/23 22:08 Nasal Cannula 3 09/03/23 21:00 Nasal Cannula 09/03/23 20:39 Nasal Cannula 09/03/23 20:01 Nasal Cannula 09/03/23 19:30 Nasal Cannula 09/03/23 19:00 Nasal Cannula 09/03/23 17:31 Nasal Cannula 3 09/03/23 17:02 Room Air 09/03/23 16:31 09/03/23 16:00 09/03/23 16:00 Room Air Intake and Output 09/03/23 09/04/23 09/04/23 23:59 07:59 15:59 Intake Total 350 / 350 Output Total 100 / 101 Balance - 250 / 249 Intake: Intake, Oral Amount 350 / 350 Output: Output, Urine Amount 100 / 101 Other: Number of Bowel Movements 1 Weight 66.043 kg 66 kg Patient Weight 09/04/23 23:59 Weight 66 kg Laboratory Results - last 24 hr 09/03/23 15:55: WBC 13.8 H, RBC 5.05, Hgb 13.6, Hct 42.8, MCV 84.8, MCH 27.0, MCHC 31.8, RDW 15.9, Plt Count 381, MPV 8.5, Neut % (Auto) 65.9, Lymph % (Auto) 26.9, [place] % (Auto) 5.4, Eos % (Auto) 0.6, Baso % (Auto) 1.1, Neut # (Auto) 9.1 H, Lymph # (Auto) 3.7, [place] # (Auto) 0.7, Eos # (Auto) 0.1, Baso # (Auto) 0.2, Sodium 136, Potassium 5.2 H, Chloride 101, Carbon Dioxide 21 L, Anion Gap 19.2 H, BUN 82 H, Creatinine 2.40 H, Estimated Creat Clear 23, Estimated GFR 20 L, Est GFR ( Amer) 25 L, Glucose 148 H, Calcium 8.8, Total Bilirubin 0.8, AST 61 H, ALT 47, Alkaline Phosphatase 144 H, Troponin I < 0.01, Total Protein 8.0, Albumin 3.9, Globulin 4.1 H, Albumin/Globulin Ratio 1.0 L, Lipase 96, SARS-CoV-2 (PCR) Not detected, Influenza A Untype (PCR) Not detected, Influenza Type B (PCR) Not detected 09/03/23 19:35: Troponin I < 0.01 09/03/23 20:48: Urine Color Yellow, Urine Appearance Clear, Urine pH 5.5, Ur Specific [place] 1.015, Urine Protein 2+, Urine Glucose (UA) Negative, Urine Ketones Negative, Urine Blood Negative, Urine Nitrate Negative, Urine Bilirubin Negative, Urine Urobilinogen 0.2, Ur Leukocyte Esterase 2+ A, Urine RBC None, Urine WBC 5-10, Ur Squamous Epith Cells Occasional, Urine Bacteria Trace, Hyaline Casts Occasional 09/03/23 22:25: Troponin I < 0.01 09/04/23 00:00: Stl Aeromonas (PCR) Not detected, Stl C. cayetanensis PCR Not detected, Stool Rotavirus (PCR) Not detected, Stl Adenov F 40/41 PCR Not detected, Stool Astrovirus (PCR) Not detected, Stool Campylobacter PCR Not detected, Stl C.difficile Tox PCR Detected A, Stool Cryptosporidium PCR Not detected, Stl E.coli Shiga Tox PCR Not detected, Stool E coli O157 PCR Not detected, Stl Enterotoxigenic E PCR Not detected, Stool EPEC (PCR) Not detected, Stool EAEC (PCR) Not detected, Stl E. histolytica PCR Not detected, Stool Giardia Lamblia PCR Not detected, Stool Salmonella PCR Not detected, Stool Sapovirus (PCR) Not detected, Stl P. shigelloides PCR Not detected, Stl Shigella/EIEC PCR Not detected, St Y.enterocolitica PCR Not detected, Stool Vibrio (PCR) Not detected, Stl Vibrio cholerae PCR Not detected, Stl Norovirus GI/GII PCR Not detected 09/04/23 02:39: POC Glucose 269 H 09/04/23 06:17: POC Glucose 112 H 09/04/23 08:40: WBC 13.0 H, RBC 4.50, Hgb 12.3, Hct 37.2, MCV 82.7, MCH 27.4, MCHC 33.1, RDW 15.9, Plt Count 325, MPV 8.2, Neut % (Auto) 61.4, Lymph % (Auto) 29.7, [place] % (Auto) 6.2, Eos % (Auto) 1.4, Baso % (Auto) 1.3, Neut # (Auto) 8.0 H, Lymph # (Auto) 3.9, [place] # (Auto) 0.8, Eos # (Auto) 0.2, Baso # (Auto) 0.2, Sodium 137, Potassium 3.7 D, Chloride 106, Carbon Dioxide 20 L, Anion Gap 14.7, BUN 78 H, Creatinine 2.50 H, Estimated Creat Clear 24, Estimated GFR 20 L, Est GFR ( Amer) 24 L, Glucose 184 H D, Calcium 7.9 L, Total Bilirubin 0.6, AST 74 H, ALT 41, Alkaline Phosphatase 150 H, Total Protein 6.8, Albumin 3.5 D, Globulin 3.3 H, Albumin/Globulin Ratio 1.1 09/04/23 10:51: POC Glucose 204 H I & O for Labs for Last 24 Hours: Intake & Output 09/01/23 09/02/23 09/03/23 09/04/23 23:59 23:59 23:59 23:59 Intake Total 350 / 350 Output Total 101 / 101 Balance 249 / 249 Weight 66.043 kg 66 kg Constitutional: Present no acute distress, average body habitus, chronically ill appearing and cooperative Head: Present atraumatic and normocephalic ENT: Present normal exam Neck: Present normal inspection Respiratory: Present prolonged expiratory phase and normal respiratory effort; Absent rhonchi, wheezes or crackles Cardiac: Present Reg Rate and Rhythm GI: Present soft, tenderness (Diffuse, nonfocal) and hyperactive bowel sounds; Absent distention, guarding or rebound Extremities: Present normal inspection and full ROM; Absent edema Comment:: Senile purpura on arms Skin: Present intact and ecchymosis; Absent erythema Neuro: Present Grossly Intact, alert, awake, oriented x 3 and moves all extremities Comment:: Tremor present Assessment and Plan *Assessment and plan (1) C. difficile colitis: Status: Acute Category: Medical Code(s): A04.72 - Enterocolitis due to Clostridium difficile, not specified as recurrent (2) RAGHAV (acute kidney injury): Status: Acute Category: Medical Code(s): N17.9 - Acute kidney failure, unspecified (3) CKD (chronic kidney disease): Status: Acute Category: Medical Code(s): N18.9 - Chronic kidney disease, unspecified (4) Hyperkalemia: Status: Acute Category: Medical Code(s): E87.5 - Hyperkalemia (5) Kidney mass: Status: Acute Category: Medical Code(s): N28.89 - Other specified disorders of kidney and ureter (6) Compression fracture: Status: Acute Category: Medical (7) Paroxysmal atrial fibrillation: Status: Acute Category: Medical Code(s): I48.0 - Paroxysmal atrial fibrillation (8) Acute on chronic heart failure with preserved ejection fraction (HFpEF): Status: Acute Category: Medical Code(s): I50.33 - Acute on chronic diastolic (congestive) heart failure (9) Diabetes mellitus, type 2: Status: Acute Qualifiers: Diabetes mellitus terminal operations supervisor insulin use: with terminal operations supervisor use Diabetes mellitus complication status: with neurologic complications Diabetes mellitus complication detail: with polyneuropathy Qualified Code(s): E11.42 - Type 2 diabetes mellitus with diabetic polyneuropathy; Z79.4 - adjunct faculty for medical terminology (current) use of insulin Category: Medical Code(s): E11.9 - Type 2 diabetes mellitus without complications (10) Anxiety and depression: Status: Acute Category: Medical Code(s): F41.9 - Anxiety disorder, unspecified; F32.A - Depression, unspecified (11) Chronic respiratory failure: Status: Acute Category: Medical Code(s): J96.10 - Chronic respiratory failure, unspecified whether with hypoxia or hypercapnia (12) COPD (chronic obstructive pulmonary disease): Problem Comment: Patient is does have an albuterol MDI which she uses on occasion. Not sure how severe her COPD is as there are no pulmonary function test in the record. However I strongly encouraged her to quit tobacco. Her daughter accompanies her and agrees with this. Status: Acute Qualifiers: COPD type: unspecified COPD Qualified Code(s): J44.9 - Chronic obstructive pulmonary disease, unspecified Category: Medical Code(s): J44.9 - Chronic obstructive pulmonary disease, unspecified (13) HTN (hypertension): Status: Chronic Qualifiers: Hypertension type: essential hypertension Qualified Code(s): I10 - Essential (primary) hypertension Category: Medical Code(s): I10 - Essential (primary) hypertension Plan This is a 63-year-old female being admitted for intractable back pain secondary to compression fractures. On my exam, patient is sitting up in bed, complaining of back pain, appearing anxious but in no acute distress. Admitted to inpatient for further management of her C. difficile colitis and RAGHAV. Tolerating oral antibiotics. Still having nausea and significant diarrhea. Problems addressed as follows: Intractable back pain Compression fracture Chronic pain -PT consulted. Patient would benefit from TLSO brace. Consider pain management inpatient versus outpatient consult. -Continue pain control with Percocet, increase to 4 times a day given acute fractures in her chronic opiate use. - Lidocaine patches daily C. difficile diarrhea -Stool sample obtained, patient found to be C. difficile positive. Will continue vancomycin 125 mg orally 4 times a day for 10 days -White count at 13 this morning RAGHAV on CKD stage 3b Renal mass Hyperkalemia -Creatinine 2.5 this morning, BUN improved from 82-78. Repeat BMP this evening. Repeat CBC, CMP, magnesium ordered for the morning. -Tolerating p.o. intake. Will continue IV fluids however given her diarrhea and fluid loss along with RAGHAV. IVF at 100 cc an hour, will need to monitor fluid status closely?she does have a history of HFpEF -Avoid nephrotoxic medications -Renal dose medications as needed -Is supposed to follow-up with oncology as an outpatient, not sure if she was able to see oncology at [facility] when she was there back in June, have requested records -Sodium 137, potassium 3.7 this morning. Insulin-dependent type 2 diabetes -A1c done at PCPs office 2 weeks ago was 8.5 -Continue Lantus -SSI for additional glycemic control -Holding metformin -Carb consistent renal diet PAF -Continue Eliquis, beta-gordon HFpEF -Last heart cath done in May showed mild pulmonary hypertension with normal filling pressures -Strict I's and O's -Daily weights -Holding Bumex for now, resume if kidney function improves or is increased oxygen requirement COPD Chronic hypoxic respiratory failure -Not acute exacerbation, patient does wear 2 to 3 L nasal cannula at home and is currently at her baseline oxygen requirements in the hospital -Resume home medications where appropriate -Maintain SpO2 greater than 90% Anxiety/depression -Continue Seroquel, Zoloft, BuSpar HTN HLD -Continue beta-gordon, Imdur, statin DVT prophylaxis: Eliquis CODE STATUS: Full code Surrogate decision maker: Sandy [phone] Skin: Moderate risk
[2023-09-04 16:00] VITALS: BP 137/77; PULSE 66; RESP 18; TEMP 36.1; O2SAT 99
--- NOTE | 2023-09-04 17:21 | PC.NURSE ---
Patient alert and oriented x4. Tolerating 3L NC, which is patients home baseline with O2 stats >90%. Pt. has had numerous loose bowel movements this shift. pt has began using the toilet instead of the bedside commode and has tolerated well. she does require assistance ambulating and cleaning up. Pain meds administered per MAR with positive effects. VSS. Bed alarm active for patient safety. Call light within reach.
[2023-09-04 17:40] LABS: POC Glucose,Bedside 267 (70-110)
[2023-09-04 17:58] LABS: Anion Gap 11.9 mEq/L (5-15); Blood Urea Nitrogen 64 mg/dl (7-17); Calcium 8.3 mg/dl (8.4-10.2); Carbon Dioxide 27 mmol/L (22.0-30.0); Chloride 107 mmol/L (98-107); Creatinine Clearance Estimated 25 mL/min (50-200); Estimated Glomerular Filt Rate 20 ml/min (>60); GFR (African American) 25 ML/MIN (>60); Glucose 164 mg/dl (74-100); Potassium 3.9 mmoL/L (3.5-5.1); Sodium 142 mmol/L (136-145)
[2023-09-04 19:52] VITALS: BP 138/72; PULSE 70; RESP 18; TEMP 36.6; O2SAT 98
[2023-09-04 20:00] VITALS: O2SAT 98
[2023-09-04] MEDS: ATORVASTATIN 10MG TABLET 10 MG PO (20:49)
[2023-09-04] MEDS: QUETIAPINE 25MG TABLET 50 MG PO (20:50)
[2023-09-04 21:19] LABS: POC Glucose,Bedside 277 (70-110)
[2023-09-04] MEDS: LIDOCAINE 5% TRANSDERMAL PATCH 2 EACH TP (22:21)
[2023-09-05 04:00] VITALS: BMI 24.8
--- NOTE | 2023-09-05 04:22 | PC.NURSE ---
63 yo f admitted with compression fractures. Pt is A/O X 4 and has been awake most of the night. She has snacked on a variety of different food and drink throughout shift. Pt continues to have loose stool and has used BSC most of the time but did ambulate with nurse to BR. Pt has had approx 3 loose stools this shift. She was medicated with pain meds X 1 due to reports of pain to her back at 8, med effective. FSBS at 9p was 267, SS insulin given per order, see MAR
[2023-09-05 05:35] VITALS: BP 153/70; PULSE 99; RESP 16; TEMP 36.6; O2SAT 98
[2023-09-05] MEDS: humaLOG 100 UNITS/ML 10ML VIAL (SSI) SQ ×4 (06:12→20:56)
[2023-09-05 06:25] LABS: POC Glucose,Bedside 256 (70-110)
[2023-09-05] MEDS: FLUTICASONE/UMECLIDIN/VILANTER 100/62.5/25MCG INHALER 1 PUFF IH (06:28)
[2023-09-05 06:29] VITALS: O2SAT 97
[2023-09-05 06:35] LABS: Basophils # 0.1 K/mm3 (0-0.2); Basophils % 0.8 % (0.1-2.0); Eosinophils # 0.2 K/mm3 (0.0-0.4); Eosinophils % 2.1 % (0.1-12.0); Lymphocytes # 3.8 K/mm3 (0.7-4.5); Lymphocytes % 36.9 % (10-50); Mean Corpuscular HGB Conc 31.5 g/dL (31.8-35.4); Mean Corpuscular Hemoglobin 27.2 pg (27.0-31.2); Mean Corpuscular Volume 86.5 fl (81-99); Mean Platelet Volume 7.8 fl (7.4-10.4); Monocytes # 0.8 K/mm3 (0.1-1.0); Monocytes % 7.4 % (1.7-9.3); Neutrophils # 5.4 K/mm3 (1.8-7.8); Neutrophils % 52.8 % (37.0-80.0); Platelet Count 285 K/mm3 (142-424); Red Blood Count 3.93 M/mm3 (4.20-5.40); Red Cell Distribution Width 15.7 % (11.5-17.5); White Blood Count 10.3 K/mm3 (4.8-10.8)
[2023-09-05 06:36] LABS: Chloride 114 mmol/L (98-107)
[2023-09-05 06:37] LABS: Potassium 4.6 mmoL/L (3.5-5.1); Sodium 143 mmol/L (136-145)
[2023-09-05 06:39] LABS: Alanine Aminotransferase 36 U/L (12-78); Alkaline Phosphatase 99 U/L (38-126); Anion Gap 9.6 mEq/L (5-15); Aspartate Amino Transferase 58 U/L (14-36); Bilirubin,Total 0.2 mg/dl (0.2-1.3); Blood Urea Nitrogen 57 mg/dl (7-17); Carbon Dioxide 24 mmol/L (22.0-30.0); Creatinine Clearance Estimated 32 mL/min (50-200); Estimated Glomerular Filt Rate 27 ml/min (>60); GFR (African American) 32 ML/MIN (>60)
[2023-09-05 06:40] LABS: Albumin Level 2.6 g/dl (3.5-5.0); Albumin/Globulin Ratio 0.8 (1.1-1.8); Calcium 7.8 mg/dl (8.4-10.2); Globulin 3.1 g/dL (1.3-3.2); Glucose 253 mg/dl (74-100); Magnesium 1.4 mg/dl (1.6-2.3); Total Protein,Serum 5.7 g/dl (6.3-8.2)
[2023-09-05 06:54] LABS: Hemoglobin 10.7 g/dL (12.2-16.2)
--- NOTE | 2023-09-05 07:09 | P.PN_ITS ---
Subjective *Date: 09/05/23 *Time: 12:56 Interval history: Complaining of back today. Stable. No nausea or vomiting. Having significant bowel movements. On baseline oxygen. Pain management evaluating today. Medical Exam Vital signs and Labs for Last 24 Hours: Vital Signs Temp Pulse Resp BP Pulse Ox O2 Del Method O2 Flow Rate 09/05/23 06:43 Room Air 09/05/23 06:29 97 Nasal Cannula 3 09/05/23 05:35 97.9 F 99 H 16 153/70 H 98 Nasal Cannula 2 09/05/23 05:00 Nasal Cannula 3 09/05/23 02:55 Nasal Cannula 3 09/05/23 00:48 Nasal Cannula 3 09/04/23 23:00 Nasal Cannula 3 09/04/23 21:00 Room Air 09/04/23 20:00 98 3 09/04/23 19:52 98 F 70 18 138/72 98 Nasal Cannula 2 09/04/23 18:57 Nasal Cannula 2 09/04/23 18:29 Nasal Cannula 2 09/04/23 17:00 Nasal Cannula 3 09/04/23 16:00 97 F L 66 18 137/77 99 Nasal Cannula 2 09/04/23 15:00 Nasal Cannula 3 09/04/23 13:00 Nasal Cannula 3 09/04/23 10:53 Nasal Cannula 3 09/04/23 09:17 97 Nasal Cannula 2 09/04/23 09:00 Room Air 09/04/23 08:00 Nasal Cannula 2 09/04/23 08:00 98.7 F 75 20 133/73 97 Nasal Cannula 2 FiO2 09/05/23 06:43 09/05/23 06:29 09/05/23 05:35 09/05/23 05:00 09/05/23 02:55 09/05/23 00:48 09/04/23 23:00 09/04/23 21:00 09/04/23 20:00 09/04/23 19:52 09/04/23 18:57 09/04/23 18:29 28 09/04/23 17:00 09/04/23 16:00 09/04/23 15:00 09/04/23 13:00 09/04/23 10:53 09/04/23 09:17 09/04/23 09:00 09/04/23 08:00 09/04/23 08:00 Intake and Output 09/04/23 09/04/23 09/05/23 15:59 23:59 07:59 Intake Total 350 / 1250 400 / 1250 500 / 500 Output Total 100 / 101 0 / 101 0 / 0 Balance 250 / 1149 400 / 1149 500 / 500 Intake: Intake, Oral Amount 350 / 1250 400 / 1250 500 / 500 Output: Output, Urine Amount 100 / 101 0 / 101 0 / 0 Other: Number of Unmeasured Voids 2 1 1 Number of Bowel Movements 3 1 1 Weight 66 kg Patient Weight 09/05/23 23:59 Weight 66 kg Laboratory Results - last 24 hr 09/04/23 08:40: WBC 13.0 H, RBC 4.50, Hgb 12.3, Hct 37.2, MCV 82.7, MCH 27.4, MCHC 33.1, RDW 15.9, Plt Count 325, MPV 8.2, Neut % (Auto) 61.4, Lymph % (Auto) 29.7, [place] % (Auto) 6.2, Eos % (Auto) 1.4, Baso % (Auto) 1.3, Neut # (Auto) 8.0 H, Lymph # (Auto) 3.9, [place] # (Auto) 0.8, Eos # (Auto) 0.2, Baso # (Auto) 0.2, Sodium 137, Potassium 3.7 D, Chloride 106, Carbon Dioxide 20 L, Anion Gap 14.7, BUN 78 H, Creatinine 2.50 H, Estimated Creat Clear 24, Estimated GFR 20 L, Est GFR ( Amer) 24 L, Glucose 184 H D, Calcium 7.9 L, Total Bilirubin 0.6, AST 74 H, ALT 41, Alkaline Phosphatase 150 H, Total Protein 6.8, Albumin 3.5 D, Globulin 3.3 H, Albumin/Globulin Ratio 1.1 09/04/23 10:51: POC Glucose 204 H 09/04/23 16:12: POC Glucose 267 H 09/04/23 17:40: Sodium 142, Potassium 3.9, Chloride 107, Carbon Dioxide 27, Anion Gap 11.9, BUN 64 H, Creatinine 2.40 H, Estimated Creat Clear 25, Estimated GFR 20 L, Est GFR ( Amer) 25 L, Glucose 164 H, Calcium 8.3 L 09/04/23 20:59: POC Glucose 277 H 09/05/23 06:12: WBC 10.3, RBC 3.93 L, Hgb 10.7 L D, Hct 34.0 L, MCV 86.5, MCH 27.2, MCHC 31.5 L, RDW 15.7, Plt Count 285, MPV 7.8, Neut % (Auto) 52.8, Lymph % (Auto) 36.9, [place] % (Auto) 7.4, Eos % (Auto) 2.1, Baso % (Auto) 0.8, Neut # (Auto) 5.4, Lymph # (Auto) 3.8, [place] # (Auto) 0.8, Eos # (Auto) 0.2, Baso # (Auto) 0.1, Sodium 143, Potassium 4.6, Chloride 114 H, Carbon Dioxide 24, Anion Gap 9.6, BUN 57 H, Creatinine 1.90 H D, Estimated Creat Clear 32, Estimated GFR 27 L, Est GFR ( Amer) 32 L D, Glucose 253 H D, POC Glucose 256 H, Calcium 7.8 L, Magnesium 1.4 L, Total Bilirubin 0.2, AST 58 H, ALT 36, Alkaline Phosphatase 99, Total Protein 5.7 L, Albumin 2.6 L D, Globulin 3.1, Albumin/Globulin Ratio 0.8 L I & O for Labs for Last 24 Hours: Intake & Output 09/02/23 09/03/23 09/04/23 09/05/23 23:59 23:59 23:59 23:59 Intake Total 750 / 1250 500 / 500 Output Total 101 / 101 0 / 0 Balance 649 / 1149 500 / 500 Weight 66.043 kg 66 kg 66 kg Microbiology Reports for the Last 24 Hours: Microbiology 09/03/23 20:48 Urine,Clean Catch Urine Culture - Final Constitutional: Present no acute distress, average body habitus, chronically ill appearing and cooperative Head: Present atraumatic and normocephalic ENT: Present normal exam Neck: Present normal inspection Respiratory: Present prolonged expiratory phase and normal respiratory effort; Absent rhonchi, wheezes or crackles Cardiac: Present Reg Rate and Rhythm GI: Present soft, tenderness (Diffuse, nonfocal) and hyperactive bowel sounds; Absent distention, guarding or rebound Extremities: Present normal inspection and full ROM; Absent edema Comment:: Senile purpura on arms Skin: Present intact and ecchymosis; Absent erythema Neuro: Present Grossly Intact, alert, awake, oriented x 3 and moves all extremities Comment:: Tremor present Assessment and Plan *Assessment and plan (1) C. difficile colitis: Status: Acute Category: Medical Code(s): A04.72 - Enterocolitis due to Clostridium difficile, not specified as recurrent (2) RAGHAV (acute kidney injury): Status: Acute Category: Medical Code(s): N17.9 - Acute kidney failure, unspecified (3) CKD (chronic kidney disease): Status: Acute Category: Medical Code(s): N18.9 - Chronic kidney disease, unspecified (4) Hyperkalemia: Status: Acute Category: Medical Code(s): E87.5 - Hyperkalemia (5) Kidney mass: Status: Acute Category: Medical Code(s): N28.89 - Other specified disorders of kidney and ureter (6) Compression fracture: Status: Acute Category: Medical (7) Paroxysmal atrial fibrillation: Status: Acute Category: Medical Code(s): I48.0 - Paroxysmal atrial fibrillation (8) Acute on chronic heart failure with preserved ejection fraction (HFpEF): Status: Acute Category: Medical Code(s): I50.33 - Acute on chronic diastolic (congestive) heart failure (9) Diabetes mellitus, type 2: Status: Acute Qualifiers: Diabetes mellitus shelter insulin use: with shelter use Diabetes mellitus complication status: with neurologic complications Diabetes mellitus complication detail: with polyneuropathy Qualified Code(s): E11.42 - Type 2 diabetes mellitus with diabetic polyneuropathy; Z79.4 - shelter (current) use of insulin Category: Medical Code(s): E11.9 - Type 2 diabetes mellitus without complications (10) Anxiety and depression: Status: Acute Category: Medical Code(s): F41.9 - Anxiety disorder, unspecified; F32.A - Depression, unspecified (11) Chronic respiratory failure: Status: Acute Category: Medical Code(s): J96.10 - Chronic respiratory failure, unspecified whether with hypoxia or hypercapnia (12) COPD (chronic obstructive pulmonary disease): Problem Comment: Patient is does have an albuterol MDI which she uses on occasion. Not sure how severe her COPD is as there are no pulmonary function test in the record. However I strongly encouraged her to quit tobacco. Her daughter accompanies her and agrees with this. Status: Acute Qualifiers: COPD type: unspecified COPD Qualified Code(s): J44.9 - Chronic obstructive pulmonary disease, unspecified Category: Medical Code(s): J44.9 - Chronic obstructive pulmonary disease, unspecified (13) HTN (hypertension): Status: Chronic Qualifiers: Hypertension type: essential hypertension Qualified Code(s): I10 - Essential (primary) hypertension Category: Medical Code(s): I10 - Essential (primary) hypertension Plan This is a 63-year-old female being admitted for intractable back pain secondary to compression fractures. On my exam, patient is sitting up in bed, complaining of back pain, appearing anxious but in no acute distress. Admitted to inpatient for further management of her C. difficile colitis and RAGHAV. Tolerating oral antibiotics. Nausea improving, still having significant bowel movements. Kidney function normalized. Stable to discharge to rehab when approved. Problems addressed as follows: Intractable back pain Compression fracture Chronic pain -PT recommends placement. Pain management consulted, recommend MRI of L-spine and DEXA scan. Would benefit from kyphoplasty of L2 and L5. Will discuss further with patient and pursue treatment in the coming weeks. - Percocet every 6 hours as needed for severe breakthrough pain. chronic opiate use. - Lidocaine patches daily -Increase gabapentin to 3 times a day C. difficile diarrhea -patient found to be C. difficile positive. Will continue vancomycin 125 mg orally 4 times a day for 10 days -White count normalized to 10 today. Repeat CBC ordered for the morning RAGHAV on CKD stage 3b Renal mass Hyperkalemia -Creatinine 1.9 this morning, BUN 57. Significant improvement. repeat CBC, CMP, magnesium ordered for the morning. -Tolerating p.o. intake. -Avoid nephrotoxic medications -Renal dose medications as needed -Is supposed to follow-up with oncology as an outpatient, not sure if she was able to see oncology at [facility] when she was there back in June, have requested records -Sodium 143, potassium 4.6. Magnesium 1.4. Will replace magnesium IV 2 g Insulin-dependent type 2 diabetes -A1c done at PCPs office 2 weeks ago was 8.5 -Continue Lantus -SSI for additional glycemic control -Holding metformin -Carb consistent renal diet PAF -Continue Eliquis, beta-gordon HFpEF -Last heart cath done in May showed mild pulmonary hypertension with normal filling pressures -Strict I's and O's -Daily weights -Holding Bumex for now, resume if kidney function improves or is increased oxygen requirement COPD Chronic hypoxic respiratory failure -Not acute exacerbation, patient does wear 2 to 3 L nasal cannula at home and is currently at her baseline oxygen requirements in the hospital -Resume home medications where appropriate -Maintain SpO2 greater than 90% Anxiety/depression -Continue Seroquel, Zoloft, BuSpar HTN HLD -Continue beta-gordon, Imdur, statin DVT prophylaxis: Eliquis CODE STATUS: Full code Surrogate decision maker: Sandy [phone] Skin: Moderate risk
--- NOTE | 2023-09-05 07:47 | HMH.PTEV ---
Physical Therapy Evaluation Rehab PT IP Evaluation Start: 09/03/23 22:37 Freq: ONCE Status: Active Protocol: Document 09/05/23 07:40 SILVESTRE (Rec: 09/05/23 07:47 SILVESTRE [email or web address]) Subjective/History History History Per H&P: Kassy Bartlett is a 63 year old female PMH significant for uncontrolled insulin dependent type 2 diabates, HTN , COPD on 3L NC at baseline, a fib on eliquis, HFpEF, Hep C who presents to the emergency room today with complaints of nausea, vomiting, diarrhea, and back pain... Subjective Subjective PLOF per pt report: Lives alone in an apartment with 0 KODY. Used a RW for Mod I ambulation. hisory of falls/ LOB in past month. Pt required Min A for bed mobility. Once at EOB, pt performed STS with CGA and was initially unsteady. Pt ambulated with CGA-Mod A d/t LOB and BLE weakness. Pt required NURSE HEAD of LUE. (would likely improve with RW). Pt reports she doesn't feel safe being home alone d/t current mobility level. PT in agreeance. New diagnosis of cancer in past 12 No months? Rehab PT IP Eval Objective Appearance Patient Behavior Appropriate,Cooperative Patient Orientation Person,Situation Difficulty following instructions none Speech Pattern Clear Ambulation Patient Able to Ambulate Yes Ambulation Observation IP General Gait Pattern Observation Wide Based Gait Ambulation Distance (feet) 8 Ambulation Assistive Device None Ambulation Ability Moderate x 1 (50% assist) Balance Ability to Arise Able, uses arms to help Sitting Balance Steady, safe Standing Balance Unsteady Transfers Bed Transfer Ability Minimal x 1 (25% assist) Sit to Stand Bed Transfer Ability Contact Guard/Hand Hold Rehab PT IP prob,goals,plan Problems Date of Evaluation: 09/05/23 PT IP Problems Bed Mobility,Transfers,Gait, Balance,Safety Rehab Potential Rehab Potential Good Equipment Needs Assistive Devices Rolling / Wheeled Walker Plan PT Intervention Plan Bed Mobility,Transfers,Gait, Balance,Safety,Therapeutic Exercise Other Intervention Plan 1-2 times PT Plan Frequency Daily Duration LOS Discharge Goals Bed Transfer Ability Supervision/Stand by Sit to Stand Chair Transfer Ability Supervision/Stand by Ambulation Assistive Device Rolling Walker Ambulation Distance (feet) 20 Discharge Plan PT Discharge Plan Initial physical therapy evaluation performed. Patient presents below baseline at this time in functional mobility, transfers, and strength. Pt not safe to return home alone at this time d/t current level of functional mobility. PT recommending short-term rehabilitation stay upon d/c from [facility]. Pt would benefit from skilled PT while at [facility] to prevent further functional decline and maximize safety with mobility. Eval Complexity Eval Charge Codes 77682 - Moderate Complexity PHYSICIAN CERTIFICATION: I certify the specified therapy services for Kassy Bartlett are required, authorized, and reviewed every 30 days.
[2023-09-05 08:00] VITALS: BP 180/79; PULSE 58; RESP 18; TEMP 36.9; O2SAT 100
--- NOTE | 2023-09-05 08:37 | PC.NURSE ---
TECH NOTE; NOTIFIED NURSE OF HIGH BLOOD PRESSURE FOR 0800 VITAL SIGNS Nancy ARROYO, SRNA
--- NOTE | 2023-09-05 09:41 | PC.NURSE ---
PM provider PRIYA Bianchi notified of consult ordered per .
--- NOTE | 2023-09-05 09:51 | SW/DCPLANNER ---
Addendum entered by [facility] 09/06/23 14:16: Per Steve this patient has been approved SNF level of care. I have updated MD, patient's nurse and patient's daughter regarding discharge to [facility]. Addendum entered by [facility] 09/06/23 07:25: Per Iman fleming/ [facility] precert was started yesterday evening. Addendum entered by [facility] 09/05/23 15:18: Christie w/ [facility] is not able to accept this patient. Patient/family are agreeable for information to be faxed to [facility]. I will follow up once Iman/Steve review patient information. Addendum entered by [facility] 09/05/23 11:52: Patient/family are agreeable to placement at [facility]: information will be faxed this AM. Addendum entered by [facility] 09/05/23 11:24: Nidia fleming/ [facility] stated they are not able to meet patient needs at this time. Patient requested that I call and speak w/ her daughter regarding other facilities. I called and spoke w/ daughter (Sandy) and she requested that she call and speak w/ her brother and call me back. Original Note: I spoke w/ patient regarding plans once medically stable for discharge. PT/OT evaluated patient and recommended SNF level of care. Patient was only agreeable to [facility] until I informed patient they do not accept her [place] Medicare plan. Patient expressed that she would like to stay in [place]. Patient is agreeable for information to be faxed to Nidia at [facility]. Patient information will be faxed to [facility] at this time. Patient has requested to speak w/ her daughter prior to giving a second option if [facility] can not accept. I will continue to follow up w/ zeeshan and [facility] this AM. Discharge date is unknown at this time.
--- NOTE | 2023-09-05 10:09 | HMH.OTEV ---
OT Inpatient Evaluation Rehab OT IP Evaluation Start: 09/05/23 08:09 Freq: ONCE Status: Active Protocol: Document 09/05/23 10:02 PEGGY (Rec: 09/05/23 10:09 PEGGY [id number]) Rehab OT IP Assessment Subjective History Kassy Bartlett is a 63 year old female PMH significant for uncontrolled insulin dependent type 2 diabates, HTN, COPD on 3L NC at baseline, a fib on eliquis, HFpEF, Hep C who presents to the emergency room today with complaints of nausea, vomiting, diarrhea, and back pain. Pt is a very poor historian. Tells me that she has had diarrhea ongoing for the last week or so. Also reports some nausea and vomiting, nonbloody nonbilious emesis noted. Patient biggest concern seems to be her back pain today. Patient is rocking back and forth complains of low back pain, in a bandlike distribution across her lower lumbar spine. Pain is nonradiating, no radiculopathy, no numbness or tingling noted. No saddle paresthesias noted. Denies any trauma or fall recently. Was admitted At [facility] in June for recurrent hyperkalemia with a left renal lesion. Patient was supposed to follow-up with nephrology and oncology. Patient is unable to tell me whether or not she has followed up with any sort of renal or oncology physicians. Does not remember what her primary care physician said approximately 10 days ago. Does report poor p.o. intake over the last week or more and has vomited multiple times. Also multiple episodes of diarrhea noted. Patient denies any worsening shortness of breath, no chest pain, cough, fever noted. Denies any abdominal pain at this time. No swelling in her legs or feet, no recent weight gain or weight loss. Denies any dysuria, hematuria. No black or bloody stools noted. Does take Eliquis for her A-fib, reports compliance with this. Patient tells me she stopped smoking a few months back, however, it is noted in her primary care physician's note from August 22 that she continues to smoke at least a pack of cigarettes or more daily. Denies any alcohol or illicit drug use. Lab work in the ER showed an elevated white count of 13.8, potassium slightly elevated at 5.2, BUN 82, creatinine 2.4 which is downtrending from 2. 72 weeks ago. Troponin was negative. UA was positive for leuk esterase, 10 WBCs and trace bacteria. CT abdomen pelvis shows the ongoing 2.7 cm mass in the left kidney suspicious for renal cell carcinoma, compression fractures of L2 and L5 and an old compression fracture at L4 with retropulsion. ER physician contacted [facility], spine surgery agreed that she could be braced here in a TLSO . She was given 1 L IV fluid bolus in the ER as well as pain medications. She will be admitted to the hospitalist service for intractable back pain. Subjective I would like to get up in the chair. Instructed Patient on proper hand and foot placement to complete bed mobility from supine->sit @ EOB->SPT to recliner with needing Mod A. Left Patient sitting upright in chair with needs met. Objective Patient Orientation Person,Name,Age,Birthday,Year Right Upper Extremity Gross ROM WFL Left Upper Extremity Gross ROM WFL Bed Mobility bed mobility - supine/sit Assist Level Minimal x 2 (25% assist) Transfer Training Sit/Stand/Pivot Transfer Assist Level Moderate x 1 (50% assist) Chair Transfer Ability Moderate x 1 (50% assist) Chair Transfer Technique Sit to/from Ambulatory Chair Transfer Assistive Devices Rolling Walker Lower Body Dressing Ability Maximum Assistance Rehab OT IP prob,goals,plan Problems Date of Evaluation: 09/05/23 OT IP Problems Bed Mobility,Transfers,Balance ,Self care,Safety Rehab Potential Rehab Potential Good Equipment Needs Assistive Devices Rolling / Wheeled Walker Plan OT intervention Plan Bed Mobility,Transfers,Balance ,Self care,Safety,Therapeutic Exercise OT Plan Frequency Daily Duration LOS Discharge Goals Bed Mobility Ability Assistance x1 Sit to Stand Chair Transfer Ability Minimal x 2 (25% assist) Chair Transfer Ability Minimal x 2 (25% assist) Chair Transfer Technique Sit to/from Ambulatory Chair Transfer Assistive Devices Rolling Walker Discharge Plan OT Discharge Plan Recommend placement at this time. Hx of falling. Patient to continue skilled OT services at this time til proper medical d/c from facility. Eval Complexity Eval Charge Codes 74265 - Low Complexity PHYSICIAN CERTIFICATION: I certify the specified therapy services for Kassy Bartlett are required, authorized, and reviewed every 30 days.
--- NOTE | 2023-09-05 10:12 | A.OFFVIS_ITS ---
HPI Data of Consult Patient: new to practice Consult date: 09/05/23 Requesting Physician: Sherman Chang MD Primary Care Provider: Referral Provider, Consult Narrative Reason for consult: Low back pain, leg pain History of present illness: Ms. Bartlett is a 63 year old female who presents today as a new patient. She is a consult from the [facility]. Today she rates her pain a 9 out of 10. Patient does state that she has chronic low back and leg symptoms that have been going on for years however over the last several weeks to months she started experiencing worsening pain. Patient states the pain is constant and interferes with activities of daily living such as cooking and cleaning. Patient states th at this is a aching, throbbing sensation with shooting pains and does have catching sensation. Patient denies any specific fall however does state that she does stumble a lot and frequently bumps into donaldson or other areas. Patient does state that she believes that she was diagnosed with osteoporosis in the past however states she does not remember as well that she believes that she was diagnosed with osteoporosis in the past however states she does not remember as well and that would be better to talk to her daughter regarding. Patient does state that the pain is unbearable and that she is open to options. Patient does have a significant heart history and is on Eliquis with A-fib. Patient does also have COPD and is on 3 L O2 on a regular basis. Patient does have lower kidney function and cannot tolerate contrast. Patient is prescribed Percocet and gabapentin from her PCP. Her Jordin has been reviewed and is appropriate. CC: Sherman Chang MD [facility] Disclaimer: The information contained in this section may have been updated after the patient was seen, as this information can be updated by other users. Medical History (Updated 09/05/23 @ 10:23 by Christie Mix APRN) Lumbar compression fracture RAGHAV (acute kidney injury) C. difficile colitis Cough Hyperkalemia Chronic respiratory failure with hypoxia COPD mixed type Elevated liver enzymes Paroxysmal atrial fibrillation Acute on chronic heart failure with preserved ejection fraction (HFpEF) Suicidal ideation Depression with suicidal ideation Abnormality of lung on CXR Pneumonia Acute and chronic respiratory failure with hypoxia Chest pain Abnormal ankle brachial index (DAVE) Pyelonephritis Restless leg syndrome Hepatitis B Depression Anxiety Chronic kidney disease Sleep apnea Migraine History of transient ischemic attack (TIA) History of hip fracture History of gastroesophageal reflux (GERD) Diabetes mellitus, type 2 Hyperlipidemia Congestive heart failure Nonspecific chest pain Hip fracture Failure to thrive Closed femur fracture Instability of left knee joint Left knee pain Vaginal pain Abnormal computed tomography angiography (CTA) of abdomen and pelvis Claudication Decreased pedal pulses Other specified symptoms and signs involving the circulatory and respiratory systems Acquired hammer toes of both feet Chronic deep vein thrombosis (DVT) of right lower extremity Primary osteoarthritis of both feet Overweight (BMI 25.0-29.9) Acute worsening of stage 3 chronic kidney disease Diabetes mellitus with neuropathy Left leg swelling Lymphedema Plantar fasciitis, left Foot pain, left Obesity (BMI 30.0-34.9) Sepsis Community acquired pneumonia Osteoarthritis of feet, bilateral Diabetic peripheral neuropathy associated with type 2 diabetes mellitus Onychoincurvatum Hepatitis C Chest pain Normal coronary arteries Foot pain, right COPD (chronic obstructive pulmonary disease) DVT (deep venous thrombosis) Cellulitis of right foot Hep B w/o coma Hep C w/o coma, chronic Endothelial dysfunction of coronary artery Elevated left ventricular end-diastolic pressure (LVEDP) Cauda equina syndrome ANNIE on CPAP Langerhan's cell histiocytosis SOB (shortness of breath) on exertion Atrial fibrillation HTN (hypertension) PAD (peripheral artery disease) Abdominal pain Diabetes mellitus Renal insufficiency Acute exacerbation of chronic obstructive airways disease Neck Pain Back pain Surgical History History of cholecystectomy History of appendectomy History of hysterectomy History of cardiac cath Family History Other Coronary artery disease Family history of diabetes mellitus type II Family history of hyperlipidemia Family history of hypertension Social History (Updated 09/03/23 @ 22:34 by Joi Hardwick RN) Smoking Status: Former smoker tobacco type: cigarettes packs per day: 2 second hand exposure: Yes alcohol intake: never counseling provided: none substance use type: denies use current occupational status: retired Travel in the last 8 weeks: None household members: none housing: house lives independently: Yes marital status: education level: middle school current occupational exposures/hazards: No caffeine: Yes special ping needs: No agree to transfusion: No do you feel safe at home: Yes victim of physical abuse: No victim of emotional abuse: No victim of sexual abuse: No would you like helpful sources: No Review of Systems Review of Systems Review of systems:: pertinent systems reviewed and negative unless documented below Review of systems (narrative): Review of Systems: General: No recent weight changes, no fever, no sleep disturbances Respiratory: No cough, no shortness of air, no recurring pulmonary infections Cardiovascular/peripheral vascular: No chest pain, no palpitations, no edema, no shortness of breath Gastrointestinal: No new onset incontinence, normal bowel movements reported Genitourinary: No new onset incontinence Musculoskeletal: Low back pain, leg pain Psychiatric: [Normal mood/affect] Neurological: [Denies weakness in extremities], [denies balance issues] Meds Home Medications and Allergies Home Medications Medication Instructions Recorded Confirmed Type apixaban 5 mg tablet (Eliquis) 5 mg PO BID Blood Thinner 09/06/22 09/03/23 History metformin 500 mg tablet 1,000 mg (2 x 500 mg) PO BID 02/17/23 09/03/23 Rx Diabetes 90 days #360 tabs pantoprazole 40 mg tablet,delayed 40 mg PO DAILY Acid Reflux #90 tabs 03/25/23 09/03/23 Rx release sertraline 100 mg tablet 150 mg PO DAILY 05/28/23 09/03/23 History fluticasone fur. 100 mcg-umeclid 1 inh inhalation DAILY 30 days #1 05/30/23 09/03/23 Rx 62.5 mcg-vilant 25 mcg ea inhalat.powder (Trelegy Ellipta) metoprolol tartrate 25 mg tablet 12.5 mg (1/2 x 25 mg) PO BID 30 05/30/23 09/03/23 Rx days #30 tabs quetiapine 25 mg tablet 50 mg (2 x 25 mg) PO HS 30 days 05/30/23 09/03/23 Rx #60 tabs insulin glargine 100 unit/mL (3 9 unit (0.09 mL) SQ BID #15 mL 06/09/23 09/03/23 Rx mL) subcutaneous pen famotidine 20 mg tablet 20 mg PO BID #60 tabs 08/20/23 09/03/23 Rx bumetanide 2 mg tablet 2 mg PO DAILY 08/23/23 09/03/23 History gabapentin 300 mg capsule 300 mg PO TID #90 caps 08/23/23 09/03/23 Rx insulin lispro 100 unit/mL 1 sliding scale dose SQ 08/23/23 09/03/23 History subcutaneous pen (Admelog Jose J USEASDIRECTD U-100 Insulin lispro) docusate sodium 100 mg capsule 100 mg PO DAILY #90 caps 08/24/23 09/03/23 Rx atorvastatin 10 mg tablet 10 mg PO HS 09/03/23 09/03/23 History buspirone 5 mg tablet 10 mg PO BID 09/03/23 09/03/23 History isosorbide mononitrate 30 mg 30 mg PO DAILY 09/03/23 09/03/23 History tablet,extended release 24 hr dapagliflozin propanediol 10 mg 10 mg PO DAILY 09/04/23 09/04/23 History tablet (Farxiga) ipratropium 0.5 mg-albuterol 3 mg 3 ml inhalation Q6HP PRN SHORTNESS 09/04/23 09/04/23 History (2.5 mg base)/3 mL nebulization OF BREATH/WHEEZING soln oxycodone-acetaminophen 7.5 mg-325 1 tab PO TIDP PRN Moderate Pain 09/04/23 09/04/23 History mg tablet (Scale Score 5-6) polyethylene glycol 3350 17 17 g PO DAILY 09/04/23 09/04/23 History gram/dose oral powder New Prescriptions to Start Prescriptions: Allergies Allergy/AdvReac Type Severity Reaction Status Date / Time methocarbamol Allergy Severe Altered Verified 08/23/23 08:54 mental status terbutaline [TERBUTALINE] Allergy Severe SWELLS Verified 08/23/23 08:54 THROAT aspirin [ASPIRIN] Allergy Intermediate I-RASH Verified 08/23/23 08:54 codeine [CODEINE] Allergy Intermediate Swelling Verified 08/23/23 08:54 of the Eye diphenhydramine Allergy Intermediate Hives Verified 08/23/23 08:54 [From Benadryl] Sulfa (Sulfonamide Allergy Intermediate Hives Verified 08/23/23 08:54 Antibiotics) [SULFA (SULFONAMIDE ANTIBIOTICS)] sulfamethoxazole Allergy Intermediate Hives Verified 08/23/23 08:54 [From Bactrim] trimethoprim [From Bactrim] Allergy Intermediate Hives Verified 08/23/23 08:54 naproxen [NAPROXEN] Allergy Mild itching Verified 08/23/23 08:54 tramadol [TRAMADOL] Allergy Mild Vomiting Verified 08/23/23 08:54 citalopram [CITALOPRAM] Allergy Unknown SKIN PEEL Verified 08/23/23 08:54 erythromycin base Allergy Unknown I-RASH Verified 08/23/23 08:54 [ERYTHROMYCIN BASE] Penicillins [PENICILLINS] Allergy Unknown I-RASH Verified 08/23/23 08:54 fluticasone Allergy Verified 08/23/23 08:54 [From Advair Diskus] salmeterol Allergy Verified 08/23/23 08:54 [From Advair Diskus] bupropion [BUPROPION] AdvReac Severe Hallucinati Verified 08/23/23 08:54 ng duloxetine [DULOXETINE] AdvReac Severe Hallucinati Verified 08/23/23 08:54 ng pregabalin [PREGABALIN] AdvReac Severe Hallucinati Verified 08/23/23 08:54 ng celecoxib [From CELEBREX] AdvReac Mild Vomiting Verified 08/23/23 08:54 Objective Vital signs: Temp Pulse Resp BP Pulse Ox O2 Del Method O2 Flow Rate 98.5 F 58 L 18 180/79 H 100 Nasal Cannula 2 09/05/23 08:00 09/05/23 08:00 09/05/23 08:00 09/05/23 08:00 09/05/23 08:00 09/05/23 08:00 09/05/23 08:00 FiO2 28 09/04/23 18:29 Narrative: Physical Exam: General: Alert and oriented x3, no acute distress, pleasant and cooperative Lungs: Respirations even and unlabored, symmetrical chest expansion Eyes: PERRL Musculoskeletal: Flexion and extension of lumbar [spine] somewhat guarded secondary to pain, [antalgic gait noted] Neurological: Speech clear, no gross sensory deficit Assessment and Plan *Assessment and plan (1) Low back pain: Status: Acute Qualifiers: Chronicity: acute Back pain laterality: bilateral Sciatica presence: without sciatica Qualified Code(s): M54.50 - Low back pain, unspecified Category: Medical Code(s): M54.50 - Low back pain, unspecified (2) Compression fracture: Status: Acute Category: Medical Plan Patient is experiencing significant pain throughout her low back that does have radiating symptoms with sharp shooting pains and some tingling into her extremities. I did discuss at length with the patient that she may be a beneficial candidate of a kyphoplasty procedure of both the L2 and L5 acute compression fractures shown on her abdominal CT. Risk and benefits were discussed with the patient and I did also call and speak to her daughter at her request regarding all this. The patient's daughter and her would like to proceed forward to see if she is a candidate. I have counseled the patient due to the imaging being a abdominal CT that I will order an MRI of her lumbar spine without contrast. Patient does have decreased kidney function and cannot have any contrast at this time. I will also order the patient a DEXA scan. Patient's daughter did confirm that she has a longstanding history of osteoporosis and does even have prior compression fractures noted on the abdominal CT in addition to the L2 and L5 vertebra noted. We will see if we can get these orders done as soon as possible and try and get her on for surgical intervention at our next OR day. Patient has tried and failed oral medications, heat and ice and topicals with no additional relief. Due to the patient's significant health history including heart issues and COPD she cannot tolerate physical therapy currently. We will follow-up with the patient after her DEXA scan and imaging. Patient has been instructed to contact the clinic with any concerns before the next appointment. Dr. Nava has reviewed this note and agrees with this plan of care. This note was dictated using voice recognition software and make contain errors or omissions.
[2023-09-05] MEDS: APIXABAN 5MG TABLET 2.5 MG PO ×2 (10:14→21:53)
[2023-09-05] MEDS: GABAPENTIN 300MG CAPSULE 300 MG PO ×3 (10:16→21:54)
[2023-09-05] MEDS: BUSPIRONE HCL 10 MG TABLET PO ×2 (10:16→21:54)
[2023-09-05] MEDS: ISOSORBIDE MONO 30MG TAB.ER.24H 30 MG PO (10:17)
[2023-09-05] MEDS: METOPROLOL TARTRATE 25MG TABLET 12.5 MG PO ×2 (10:19→21:54)
[2023-09-05] MEDS: PANTOPRAZOLE 40MG TABLET 40 MG PO (10:19)
[2023-09-05] MEDS: SERTRALINE 100MG TABLET 150 MG PO (10:20)
[2023-09-05] MEDS: OXYCODONE 7.5MG W/APAP 325MG TABLET 1 EACH PO ×3 (10:42→23:24)
[2023-09-05] MEDS: INSULIN GLARGINE 100 UNITS/ML 3ML FLEXPEN 9 UNIT SQ ×2 (10:42→21:55)
[2023-09-05] MEDS: VANCOMYCIN HCL 50MG/ML 150ML KIT 125 MG PO ×4 (11:16→22:02)
[2023-09-05] MEDS: CALCIUM POLYCARBOPHIL 625MG TAB 1250 MG PO (11:16)
--- NOTE | 2023-09-05 11:38 | PC.NURSE ---
Both of pt's IV sites infiltrated this am. MD Chang stated to hold the mag for now and if she did not get discharged today we could onsert a new IV and give mag then.
[2023-09-05 11:40] LABS: POC Glucose,Bedside 172 (70-110)
[2023-09-05 16:00] VITALS: BP 162/80; PULSE 68; RESP 18; TEMP 37.4; O2SAT 99
[2023-09-05 16:31] LABS: POC Glucose,Bedside 330 (70-110)
--- NOTE | 2023-09-05 17:21 | PC.NURSE ---
patient is A/Ox4. She has rested most of the day in the bed and chair. patient has c/o pain throughout shift and treat per MAR. patient has had several BM using the bedside commode with standby assist. patient is currently on 2 LNC, O2 is 99%. pt has tolerated diet well and has eaten most of her meals. no further requests at this time. call light within reach.
[2023-09-05 20:00] VITALS: BP 135/61; PULSE 73; RESP 18; TEMP 36.2; O2SAT 96
[2023-09-05 21:06] LABS: POC Glucose,Bedside 183 (70-110)
[2023-09-05] MEDS: ATORVASTATIN 10MG TABLET 10 MG PO (21:54)
[2023-09-05] MEDS: QUETIAPINE 25MG TABLET 50 MG PO (21:55)
[2023-09-05] MEDS: LIDOCAINE 5% TRANSDERMAL PATCH 2 EACH TP (21:55)
--- NOTE | 2023-09-06 00:02 | PC.NURSE ---
Entered patient's room at midnight to check on patient; she started complaining of increased discomfort in both of her legs and was not able to feel comfortable. Patient claimed that she was unable to describe exactly how her legs felt other than feeling cool and tingly. Patient requested for heat pack applications. Dm POWERS was paged at 00:02 to obtain a new order.
[2023-09-06 04:00] VITALS: BP 160/86; PULSE 66; RESP 18; TEMP 36.6; O2SAT 98; BMI 24.8
--- NOTE | 2023-09-06 05:17 | PC.NURSE ---
Addendum entered by Patti Dougherty RN 09/06/23 05:31: Patient has remained on 2 L NC this shift. Patient's FSBS at 21:00 was 183 and she received 2 units of Lispro. At 05:00, patient's FSBS was 363 and she received 12 units of Lispro. Original Note: Patient is alert and oriented x4. Precautions were taken due to patient's C DIFF infection. Patient has stayed awake through most of the night and has been watching TV. Patient has requested for a few bags of BBQ baked lays and Diet Pepsi for her bedtime snacks. Patient has gotten up to use the bedside commode with assistance this shift and continues to have diarrhea. Patient's bowel sounds are very active in all four quadrants. Patient received her scheduled nighttime medications per APR, as well as a lidocaine patch application. Patient has complained of consistent pain throughout the shift in her lower back down to her legs. Patient was medicated for her pain per APR, but stated that the Percocet 7.5 mg does very little for her and continues to have some pain. Patient started complaining of a tingling sensation and coolness in her feet; Dm [facility] was paged for a heating pack order. However, due to no heating pad availability at this time, a makeshift heating pad was made with warmed washcloths and empty ice pack bags. Patient's feet were also wrapped with a warm blanket for extra comfort; patient reported tremendous relief. She also started complaining of slight ear pain and neck pain. Patient requested chicken broth and stated that it helps with the aches. Patient had a full bed bath performed by [facility] this shift. Patient was very thankful for her bath and stated that it made her feel wonderful. Patient does not have any further complaints at this time and is resting supine in bed. Call light within reach. Contact enteric precautions sign on door.
[2023-09-06] MEDS: humaLOG 100 UNITS/ML 10ML VIAL (SSI) SQ ×2 (05:20→11:34)
[2023-09-06 05:33] LABS: POC Glucose,Bedside 363 (70-110)
[2023-09-06] MEDS: FLUTICASONE/UMECLIDIN/VILANTER 100/62.5/25MCG INHALER 1 PUFF IH (06:09)
[2023-09-06] MEDS: OXYCODONE 7.5MG W/APAP 325MG TABLET 1 EACH PO ×2 (06:13→11:25)
[2023-09-06 07:19] LABS: Basophils # 0.1 K/mm3 (0-0.2); Basophils % 0.6 % (0.1-2.0); Eosinophils # 0.3 K/mm3 (0.0-0.4); Eosinophils % 2.5 % (0.1-12.0); Hematocrit 32.2 % (37.0-47.0); Hemoglobin 10.3 g/dL (12.2-16.2); Lymphocytes # 4.4 K/mm3 (0.7-4.5); Lymphocytes % 37.9 % (10-50); Mean Corpuscular HGB Conc 31.9 g/dL (31.8-35.4); Mean Corpuscular Hemoglobin 27.2 pg (27.0-31.2); Mean Corpuscular Volume 85.1 fl (81-99); Mean Platelet Volume 8.1 fl (7.4-10.4); Monocytes # 0.7 K/mm3 (0.1-1.0); Monocytes % 5.9 % (1.7-9.3); Neutrophils # 6.2 K/mm3 (1.8-7.8); Platelet Count 239 K/mm3 (142-424); Red Blood Count 3.78 M/mm3 (4.20-5.40); Red Cell Distribution Width 15.7 % (11.5-17.5); White Blood Count 11.6 K/mm3 (4.8-10.8)
[2023-09-06 07:26] VITALS: BP 135/81; PULSE 70; RESP 21; TEMP 36.4; O2SAT 99
[2023-09-06 07:26] LABS: Alanine Aminotransferase 58 U/L (12-78); Albumin Level 2.7 g/dl (3.5-5.0); Albumin/Globulin Ratio 0.9 (1.1-1.8); Alkaline Phosphatase 130 U/L (38-126); Anion Gap 8.7 mEq/L (5-15); Aspartate Amino Transferase 102 U/L (14-36); Bilirubin,Total 0.2 mg/dl (0.2-1.3); Blood Urea Nitrogen 44 mg/dl (7-17); Calcium 8.4 mg/dl (8.4-10.2); Carbon Dioxide 21 mmol/L (22.0-30.0); Chloride 114 mmol/L (98-107); Creatinine Clearance Estimated 38 mL/min (50-200); Estimated Glomerular Filt Rate 33 ml/min (>60); GFR (African American) 40 ML/MIN (>60); Globulin 2.9 g/dL (1.3-3.2); Glucose 207 mg/dl (74-100); Potassium 4.7 mmoL/L (3.5-5.1); Sodium 139 mmol/L (136-145); Total Protein,Serum 5.6 g/dl (6.3-8.2)
[2023-09-06 07:47] LABS: Magnesium 1.3 mg/dl (1.6-2.3)
--- NOTE | 2023-09-06 08:08 | MR_ITS ---
FINAL REPORT TECHNIQUE: Multiplanar MR without gadolinium enhancement CLINICAL HISTORY: COMPESSION FX L2 AND L5 COMPARISON: CT abdomen and pelvis dated 09/03/2023 FINDINGS: There are mild endplate fractures with associated edema of the inferior endplate of L2 and the superior endplate of L5. Compression deformities are stable compared to the prior CT. There is a chronic mild compression fracture of L4. Number remaining vertebral body heights are normal. There is mild degenerative subluxation at L3-4 and L4-5. T12-L1: Mild annular disc bulge. No significant canal stenosis. L1-2: Mild annular disc bulge. No significant canal stenosis. L2-3: Mild facet arthropathy. No significant canal stenosis. L3-4: Large annular disc bulge covered by osteophytes. Severe central canal stenosis and moderate bilateral neuroforaminal narrowing. L4-5: Moderate annular disc bulge and facet arthropathy. Moderate central canal stenosis and moderate bilateral neuroforaminal narrowing. L5-S1: Mild annular disc bulge and facet arthropathy. No significant canal stenosis. IMPRESSION: Subacute mild endplate compression fractures of L2 and L5. Significant canal stenosis and neuroforaminal narrowing most pronounced at L3-4. Reviewed, Interpreted and Dictated by Marcia Luque MD Transcribed by Arlin Peters Authenticated and [facility]
--- NOTE | 2023-09-06 08:16 | PC.NURSE ---
pt to MRI
[2023-09-06] MEDS: MAGNESIUM SULFATE IN WATER 2 GM/50 ML PIGGYBACK IV (09:45)
[2023-09-06] MEDS: PANTOPRAZOLE 40MG TABLET 40 MG PO (09:46)
[2023-09-06] MEDS: METOPROLOL TARTRATE 25MG TABLET 12.5 MG PO (09:46)
[2023-09-06] MEDS: GABAPENTIN 300MG CAPSULE 300 MG PO ×2 (09:46→13:55)
[2023-09-06] MEDS: SERTRALINE 100MG TABLET 150 MG PO (09:46)
[2023-09-06] MEDS: APIXABAN 5MG TABLET 2.5 MG PO (09:46)
[2023-09-06] MEDS: CALCIUM POLYCARBOPHIL 625MG TAB 1250 MG PO (09:46)
[2023-09-06] MEDS: INSULIN GLARGINE 100 UNITS/ML 3ML FLEXPEN 9 UNIT SQ (09:47)
[2023-09-06] MEDS: BUSPIRONE HCL 10 MG TABLET PO (09:47)
[2023-09-06] MEDS: ISOSORBIDE MONO 30MG TAB.ER.24H 30 MG PO (09:47)
[2023-09-06] MEDS: VANCOMYCIN HCL 50MG/ML 150ML KIT 125 MG PO ×2 (09:57→13:55)
[2023-09-06 11:37] LABS: POC Glucose,Bedside 282 (70-110)
--- NOTE | 2023-09-06 14:18 | P.DS_ITS ---
General Admission date:: 09/03/23 Discharge date: 09/06/23 HPI HPI HPI: Kassy Bartlett is a 63 year old female PMH significant for uncontrolled insulin dependent type 2 diabates, HTN, COPD on 3L NC at baseline, a fib on eliquis, HFpEF, Hep C who presents to the emergency room today with complaints of nausea, vomiting, diarrhea, and back pain. Pt is a very poor historian. Tells me that she has had diarrhea ongoing for the last week or so. Also reports some nausea and vomiting, nonbloody nonbilious emesis noted. Patient biggest concern seems to be her back pain today. Patient is rocking back and forth complains of low back pain, in a bandlike distribution across her lower lumbar spine. Pain is nonradiating, no radiculopathy, no numbness or tingling noted. No saddle paresthesias noted. Denies any trauma or fall recently. Was admitted At [facility] in June for recurrent hyperkalemia with a left renal lesion. Patient was supposed to follow-up with nephrology and oncology. Patient is oren ble to tell me whether or not she has followed up with any sort of renal or oncology physicians. Does not remember what her primary care physician said approximately 10 days ago. Does report poor p.o. intake over the last week or more and has vomited multiple times. Also multiple episodes of diarrhea noted. Patient denies any worsening shortness of breath, no chest pain, cough, fever noted. Denies any abdominal pain at this time. No swelling in her legs or feet, no recent weight gain or weight loss. Denies any dysuria, hematuria. No black or bloody stools noted. Does take Eliquis for her A-fib, reports compliance with this. Patient tells me she stopped smoking a few months back, however, it is noted in her primary care physician's note from August 22 that she continues to smoke at least a pack of cigarettes or more daily. Denies any alcohol or illicit drug use. Lab work in the ER showed an elevated white count of 13.8, potassium slightly elevated at 5.2, BUN 82, creatinine 2.4 which is downtrending from 2.72 weeks ago. Troponin was negative. UA was positive for leuk esterase, 10 WBC[address] and trace bacteria. CT abdomen pelvis shows the ongoing 2.7 cm mass in the left kidney suspicious for renal cell carcinoma, compression fractures of L2 and L5 and an old compression fracture at L4 with retropulsion. ER physician contacted [facility], spine surgery agreed that she could be braced here in a TLSO. She was given 1 L IV fluid bolus in the ER as well as pain medications. She will be admitted to the hospitalist service for intractable back pain. Hospital Course Hospital Course Hospital Course: This is a 63-year-old female being admitted for intractable back pain secondary to compression fractures. On my exam, patient is sitting up in bed, complaining of back pain, appearing anxious but in no acute distress. Admitted to inpatient for further management of her C. difficile colitis and RAGHAV. Tolerating oral antibiotics. Nausea resolved. Tolerating p.o. intake. Seeing improvement in kidney function, electrolytes, white count. Evaluated by therapy, would benefit from skilled rehab. Accepted by signature. Stable to discharge for further management. Will have follow-up with pain management for evaluation of kyphoplasty given her compression fractures in her L-spine. MRI obtained on day of discharge. Problems addressed as follows: Intractable back pain Compression fracture Chronic pain -Imaging on admission showed compression fractures in L2 and 5. Pain management consulted. MRI obtained to further evaluate. Patient would benefit from kyphoplasty. In the meantime addressing with oral pain medication. Continuing Percocet every 6 hours as needed. Gabapentin increased to 3 times a day. Will have close follow-up with pain management to discuss further interventions. Working with therapy. C. difficile diarrhea -patient found to be C. difficile positive. Initiated on vancomycin oral 125 mg oral 4 times a day. Will complete 10 days total. White count is normalized. Last day of PO vancomycin 09/12. RAGHAV on CKD stage 3b Renal mass Hyperkalemia -Creatinine elevated on admission, found to have RAGHAV. Gradually improved to baseline of 1.6 with BUN 44 by day of discharge. Making adequate urine. Recommend CBC, CMP, magnesium in 1 week to monitor kidney function and electrolytes along with white cell count. Is supposed to follow-up with oncology as an outpatient, not sure if she was able to see oncology at [facility] when she was there back in June, have requested records. Electrolytes with normal sodium 139, potassium 4.7. Magnesium low at 1.3 but replaced with 2 rounds of 2 g IV magnesium. Continue oral magnesium daily. Insulin-dependent type 2 diabetes -A1c done at PCPs office 2 weeks ago was 8.5. Continues her Lantus. Resume metformin when no longer having more than 3 loose stools a day. Recommend diabetic diet. Glucose less than 250 during admission. PAF: Continue Eliquis, beta-gordon HFpEF -Last heart cath done in May showed mild pulmonary hypertension with normal filling pressures. Monitored output. Was having significant stools. Held her diuretic during admission. Recommend holding until stools less than twice daily. COPD Chronic hypoxic respiratory failure -Not acute exacerbation, patient does wear 2 to 3 L nasal cannula at home and is currently at her baseline oxygen requirements in the hospital -Resume home medications where appropriate -Maintain SpO2 greater than 90% Anxiety/depression: Continue Seroquel, Zoloft, BuSpar HTN/HLD: Continue beta-gordon, Imdur, statin Total time spent on discharge 38 minutes in counseling, documentation, chart review, and direct care with patient. Exam Data for Last 24 hours Vital signs and Labs for Last 24 Hours: Temp Pulse Resp BP Pulse Ox O2 Del Method O2 Flow Rate 97.6 F 70 21 135/81 99 Nasal Cannula 2 09/06/23 07:26 09/06/23 07:26 09/06/23 07:26 09/06/23 07:26 09/06/23 07:26 09/06/23 13:00 09/06/23 13:00 FiO2 28 09/04/23 18:29 Laboratory Results - last 24 hr 09/05/23 16:24: POC Glucose 330 H* 09/05/23 20:54: POC Glucose 183 H 09/06/23 05:18: POC Glucose 363 H* 09/06/23 06:32: WBC 11.6 H, RBC 3.78 L, Hgb 10.3 L, Hct 32.2 L, MCV 85.1, MCH 27.2, MCHC 31.9, RDW 15.7, Plt Count 239, MPV 8.1, Neut % (Auto) 53.0, Lymph % (Auto) 37.9, [place] % (Auto) 5.9, Eos % (Auto) 2.5, Baso % (Auto) 0.6, Neut # (Auto) 6.2, Lymph # (Auto) 4.4, [place] # (Auto) 0.7, Eos # (Auto) 0.3, Baso # (Auto) 0.1, Sodium 139, Potassium 4.7, Chloride 114 H, Carbon Dioxide 21 L, Anion Gap 8.7, BUN 44 H, Creatinine 1.60 H, Estimated Creat Clear 38, Estimated GFR 33 L, Est GFR ( Amer) 40 L D, Glucose 207 H, Calcium 8.4, Magnesium 1.3 L, Total Bilirubin 0.2, AST 102 H D, ALT 58 D, Alkaline Phosphatase 130 H, Total Protein 5.6 L, Albumin 2.7 L, Globulin 2.9, Albumin/Globulin Ratio 0.9 L 09/06/23 11:27: POC Glucose 282 H I & O for Last 24 hours: Intake & Output 09/03/23 09/04/23 09/05/23 09/06/23 23:59 23:59 23:59 23:59 Intake Total 750 / 1250 1520 / 2164 1274 / 1274 Output Total 101 / 101 0 / 0 0 / 0 Balance 649 / 1149 1520 / 2164 1274 / 1274 Weight 66.043 kg 66 kg 66 kg 66 kg Constitutional Constitutional: no acute distress, average body habitus, chronically ill appearing and disheveled *Routine HEENT Exam Head: Present normocephalic Eye: Present EOMI and PERRL ENT: Present mucous membranes moist *Routine Neck Exam Neck: Present supple; Absent lymphadenopathy *Routine Respiratory Exam Respiratory: Present prolonged expiratory phase, wheezes and normal respiratory effort; Absent rhonchi or crackles *Routine Cardiovascular Exam Cardiovascular: Present RRR *Routine Abdominal Exam Abdominal: Present soft, normoactive bowel sounds and tenderness (moderate) *Routine Rectal Exam Patient deferred: visual exam *Routine Exam Patient deferred: external exam *Routine Extremities Exam Extremities: Absent cyanosis, clubbing or edema Routine Back/Spine/Pelvis Exam Comments: Tender over L-spine *Routine Skin Exam Skin: Present intact and warm; Absent rash Comments: Senile purpura *Routine Neurological Exam Neurological: Present alert, oriented X3 and moving all extremities; Absent altered mental status Routine Psychiatric Exam Psychiatric: Present depressed and anxious Results Data Completed and Pending Labs on day of discharge: Labs from last 24 hours 09/06/23 09/06/23 09/06/23 11:27 06:32 05:18 WBC 11.6 H RBC 3.78 L Hgb 10.3 L Hct 32.2 L MCV 85.1 MCH 27.2 MCHC 31.9 RDW 15.7 Plt Count 239 MPV 8.1 Neut % (Auto) 53.0 Lymph % (Auto) 37.9 [place] % (Auto) 5.9 Eos % (Auto) 2.5 Baso % (Auto) 0.6 Neut # (Auto) 6.2 Lymph # (Auto) 4.4 [place] # (Auto) 0.7 Eos # (Auto) 0.3 Baso # (Auto) 0.1 Sodium 139 Potassium 4.7 Chloride 114 H Carbon Dioxide 21 L Anion Gap 8.7 BUN 44 H Creatinine 1.60 H Estimated Creat Clear 38 Estimated GFR 33 L Est GFR ( Amer) 40 L D Glucose 207 H POC Glucose 282 H 363 H* Calcium 8.4 Magnesium 1.3 L Total Bilirubin 0.2 AST 102 H D ALT 58 D Alkaline Phosphatase 130 H Total Protein 5.6 L Albumin 2.7 L Globulin 2.9 Albumin/Globulin Ratio 0.9 L 09/05/23 09/05/23 20:54 16:24 WBC RBC Hgb Hct MCV MCH MCHC RDW Plt Count MPV Neut % (Auto) Lymph % (Auto) [place] % (Auto) Eos % (Auto) Baso % (Auto) Neut # (Auto) Lymph # (Auto) [place] # (Auto) Eos # (Auto) Baso # (Auto) Sodium Potassium Chloride Carbon Dioxide Anion Gap BUN Creatinine Estimated Creat Clear Estimated GFR Est GFR ( Amer) Glucose POC Glucose 183 H 330 H* Calcium Magnesium Total Bilirubin AST ALT Alkaline Phosphatase Total Protein Albumin Globulin Albumin/Globulin Ratio DS: Diagnosis Discharge Diagnosis (1) C. difficile colitis: Status: Acute Code(s): A04.72 - Enterocolitis due to Clostridium difficile, not specified as recurrent (2) RAGHAV (acute kidney injury): Status: Acute Code(s): N17.9 - Acute kidney failure, unspecified (3) CKD (chronic kidney disease): Status: Acute Code(s): N18.9 - Chronic kidney disease, unspecified (4) Hyperkalemia: Status: Acute Code(s): E87.5 - Hyperkalemia (5) Kidney mass: Status: Acute Code(s): N28.89 - Other specified disorders of kidney and ureter (6) Compression fracture: Status: Acute (7) Paroxysmal atrial fibrillation: Status: Acute Code(s): I48.0 - Paroxysmal atrial fibrillation (8) Acute on chronic heart failure with preserved ejection fraction (HFpEF): Status: Acute Code(s): I50.33 - Acute on chronic diastolic (congestive) heart failure (9) Diabetes mellitus, type 2: Status: Acute Code(s): E11.9 - Type 2 diabetes mellitus without complications Qualifiers: Diabetes mellitus keno terminal operator insulin use: with keno terminal operator use Diabetes mellitus complication status: with neurologic complications Diabetes mellitus complication detail: with polyneuropathy Qualified Code(s): E11.42 - Type 2 diabetes mellitus with diabetic polyneuropathy; Z79.4 - keno terminal operator (current) use of insulin (10) Anxiety and depression: Status: Acute Code(s): F41.9 - Anxiety disorder, unspecified; F32.A - Depression, unspecified (11) Chronic respiratory failure: Status: Acute Code(s): J96.10 - Chronic respiratory failure, unspecified whether with hypoxia or hypercapnia (12) COPD (chronic obstructive pulmonary disease): Status: Acute Code(s): J44.9 - Chronic obstructive pulmonary disease, unspecified Qualifiers: COPD type: unspecified COPD Qualified Code(s): J44.9 - Chronic obstructive pulmonary disease, unspecified Problem details: Patient is does have an albuterol MDI which she uses on occasion. Not sure how severe her COPD is as there are no pulmonary function test in the record. However I strongly encouraged her to quit tobacco. Her daughter accompanies her and agrees with this. (13) HTN (hypertension): Status: Chronic Code(s): I10 - Essential (primary) hypertension Qualifiers: Hypertension type: essential hypertension Qualified Code(s): I10 - Essential (primary) hypertension Meds Home Medications and Allergies Home Medications Medication Instructions Recorded Confirmed Type apixaban 5 mg tablet (Eliquis) 5 mg PO BID Blood Thinner 09/06/22 09/03/23 History metformin 500 mg tablet 1,000 mg (2 x 500 mg) PO BID 02/17/23 09/03/23 Rx Diabetes 90 days #360 tabs pantoprazole 40 mg tablet,delayed 40 mg PO DAILY Acid Reflux #90 tabs 03/25/23 09/03/23 Rx release sertraline 100 mg tablet 150 mg PO DAILY 05/28/23 09/03/23 History fluticasone fur. 100 mcg-umeclid 1 inh inhalation DAILY 30 days #1 05/30/23 09/03/23 Rx 62.5 mcg-vilant 25 mcg ea inhalat.powder (Trelegy Ellipta) metoprolol tartrate 25 mg tablet 12.5 mg (1/2 x 25 mg) PO BID 30 05/30/23 09/03/23 Rx days #30 tabs quetiapine 25 mg tablet 50 mg (2 x 25 mg) PO HS 30 days 05/30/23 09/03/23 Rx #60 tabs insulin glargine 100 unit/mL (3 9 unit (0.09 mL) SQ BID #15 mL 06/09/23 09/03/23 Rx mL) subcutaneous pen famotidine 20 mg tablet 20 mg PO BID #60 tabs 08/20/23 09/03/23 Rx bumetanide 2 mg tablet 2 mg PO DAILY 08/23/23 09/03/23 History insulin lispro 100 unit/mL 1 sliding scale dose SQ 08/23/23 09/03/23 History subcutaneous pen (Admelog SolAndrei USEASDIRECTD U-100 Insulin lispro) atorvastatin 10 mg tablet 10 mg PO HS 09/03/23 09/03/23 History buspirone 5 mg tablet 10 mg PO BID 09/03/23 09/03/23 History isosorbide mononitrate 30 mg 30 mg PO DAILY 09/03/23 09/03/23 History tablet,extended release 24 hr dapagliflozin propanediol 10 mg 10 mg PO DAILY 09/04/23 09/04/23 History tablet (Farxiga) ipratropium 0.5 mg-albuterol 3 mg 3 ml inhalation Q6HP PRN SHORTNESS 09/04/23 09/04/23 History (2.5 mg base)/3 mL nebulization OF BREATH/WHEEZING soln calcium polycarbophil 625 mg 1,250 mg (2 x 625 mg) PO BID 30 09/06/23 Rx tablet (FiberCon) days #120 tabs gabapentin 300 mg capsule 300 mg PO TID 30 days #90 caps 09/06/23 Rx oxycodone-acetaminophen 7.5 mg-325 1 tab PO QID 3 days #12 tabs 09/06/23 Rx mg tablet vancomycin 50 mg/mL oral solution 125 mg (2.5 mL) PO QID 8 days #80 09/06/23 Rx (Firvanq) mL New Prescriptions to Start Prescriptions: peng polycarbophil [FiberCon] Sherman Chang gabapentin Sherman Chang oxycodone-acetaminophen Sherman Chang vancomycin [Firvanq] Sherman Chang Allergies Allergy/AdvReac Type Severity Reaction Status Date / Time methocarbamol Allergy Severe Altered Verified 08/23/23 08:54 mental status terbutaline [TERBUTALINE] Allergy Severe SWELLS Verified 08/23/23 08:54 THROAT aspirin [ASPIRIN] Allergy Intermediate I-RASH Verified 08/23/23 08:54 codeine [CODEINE] Allergy Intermediate Swelling Verified 08/23/23 08:54 of the Eye diphenhydramine Allergy Intermediate Hives Verified 08/23/23 08:54 [From Benadryl] Sulfa (Sulfonamide Allergy Intermediate Hives Verified 08/23/23 08:54 Antibiotics) [SULFA (SULFONAMIDE ANTIBIOTICS)] sulfamethoxazole Allergy Intermediate Hives Verified 08/23/23 08:54 [From Bactrim] trimethoprim [From Bactrim] Allergy Intermediate Hives Verified 08/23/23 08:54 naproxen [NAPROXEN] Allergy Mild itching Verified 08/23/23 08:54 tramadol [TRAMADOL] Allergy Mild Vomiting Verified 08/23/23 08:54 citalopram [CITALOPRAM] Allergy Unknown SKIN PEEL Verified 08/23/23 08:54 erythromycin base Allergy Unknown I-RASH Verified 08/23/23 08:54 [ERYTHROMYCIN BASE] Penicillins [PENICILLINS] Allergy Unknown I-RASH Verified 08/23/23 08:54 fluticasone Allergy Verified 08/23/23 08:54 [From Advair Diskus] salmeterol Allergy Verified 08/23/23 08:54 [From Advair Diskus] bupropion [BUPROPION] AdvReac Severe Hallucinati Verified 08/23/23 08:54 ng duloxetine [DULOXETINE] AdvReac Severe Hallucinati Verified 08/23/23 08:54 ng pregabalin [PREGABALIN] AdvReac Severe Hallucinati Verified 08/23/23 08:54 ng celecoxib [From CELEBREX] AdvReac Mild Vomiting Verified 08/23/23 08:54 Discharge Plan Disposition Patient Disposition: Xfer SNF Condition: Fair Discharge Order Discharge Orders: Discharge Order (Routine); Ordered 09/06/23 Ordered By: Sherman Chang Follow up Plan Follow up with: Hemanth Nava MD [Staff Physician] - Enter time for follow up Prescriptions/Medication Reconciliation: New calcium polycarbophil [FiberCon] 625 mg Tablet 1,250 mg PO BID 30 Days Qty: 120 0RF vancomycin [Firvanq] 50 mg/mL Recon Soln 125 mg PO QID 8 Days Qty: 80 0RF Continued insulin glargine 100 unit/mL (3 mL) insulin pen 9 unit SQ BID Qty: 15 2RF insulin lispro [Admelog SoloStar U-100 Insulin] 100 unit/mL insulin pen 1 sliding scale dose SQ USEASDIRECTD pantoprazole 40 mg tablet,delayed release (DR/EC) 40 mg PO DAILY Qty: 90 0RF famotidine 20 mg tablet 20 mg PO BID Qty: 60 1RF Rx Instructions: Needs appt for further refills Eliquis 5 mg tablet 5 mg PO BID Patient Comments: TAKE ONE TABLET BY MOUTH TWICE DAILY FOR BLOOD THINNER sertraline 100 mg tablet 150 mg PO DAILY Patient Comments: TAKE 1 AND 1/2 TABLET BY MOUTH EVERY DAY Trelegy Ellipta 100-62.5-25 mcg Blister With Device 1 inh inhalation DAILY 30 Days Qty: 1 0RF metoprolol tartrate 25 mg Tablet 12.5 mg PO BID 30 Days Qty: 30 0RF quetiapine 25 mg Tablet 50 mg PO HS 30 Days Qty: 60 0RF isosorbide mononitrate 30 mg tablet extended release 24 hr 30 mg PO DAILY Rx Instructions: TAKE ONE TABLET BY MOUTH EVERY DAY buspirone 5 mg tablet 10 mg PO BID Rx Instructions: TAKE TWO TABLETS BY MOUTH TWICE DAILY MAY CAUSE DROWSINESS atorvastatin 10 mg tablet 10 mg PO HS Rx Instructions: TAKE ONE TABLET BY MOUTH EVERY DAY AT BEDTIME ipratropium-albuterol 0.5 mg-3 mg(2.5 mg base)/3 mL solution for nebulization 3 ml INHALATION Q6HP PRN (Reason: SHORTNESS OF BREATH/WHEEZING) Patient Comments: INHALE THE CONTENTS OF 1 VIAL VIA NEBULIZER EVERY 6 HOURS NEEDED FOR SHORTNESS OF BREATH OR WHEEZING dapagliflozin propanediol [Farxiga] 10 mg tablet 10 mg PO DAILY gabapentin 300 mg capsule 300 mg PO TID 30 Days Qty: 90 2RF Changed oxycodone-acetaminophen 7.5-325 mg tablet 1 tab PO QID 3 Days Qty: 12 0RF Patient Comments: 1 tab orally three times a day As Needed for Moderate Pain (Scale Score 5-6) Held bumetanide 2 mg tablet 2 mg PO DAILY Hold Instructions: Pending decrease in stool burden metformin 500 mg tablet 1,000 mg PO BID 90 Days Qty: 360 2RF Hold Instructions: Pending decrease in stool burden Discontinued docusate sodium 100 mg capsule 100 mg PO DAILY Qty: 90 0RF polyethylene glycol 3350 17 gram/dose powder 17 g PO DAILY Patient Comments: DISSOLVE 17 GRAMS OF POWDER INTO 4 TO 8 OUNCES OF WATER, JUICE, SODA, COFFEE, OR TEA THEN DRINK EVERY DAY IN THE MORNING Problem Reconciliation Problems Reviewed?: Yes Patient Discharge Instructions ACTIVITY: Continue current activity DIET: continue same diet Patient Instructions: DI for Vertebral Fracture, DI for Low Back Pain, DI for Clostridioides difficile Infection, DI for Acute Kidney Injury Providers Primary Care Provider: Provider,Referral Admit Provider: Sherman Chang Attending Provider: Sherman Chang
--- NOTE | 2023-09-08 11:50 | PC.NURSE ---
Pts daughter called stating will need to cancel pts appt today r/t no transportation for pt. States she will call back when able to reschedule. She is also aware we are working on PA for kyphoplasty for pt with Dr. Nava on September 15. States she will have transport for pt on that date is approved. Todays visit was a f/u and to review pt MRI she had as an inpatient. I have notified Kelechi Mix aprn of pt cancelling appt today as well as given her the MRI report for pt and notified her pt is currently at [facility] in [place]. No new orders at this time.
--- NOTE | 2023-09-12 16:16 | PC.NURSE ---
blood thinner hold request approved per dr. oconnor. Pt to hold eliquis starting on 09/13/23 for kyphoplasty procedure. Have spoke with Marium at [facility] in [place] r/t holding Eliquis, verbalized understanding of hold request. Faxed approved blood thinner hold request to [facility] [place] attn Marium at [phone] on 09/12/23. My direct call back number given to Marium for any questions or issues.
== END 2023-09-06 15:40 ==
LOC: ER 21:17 → 2ND 21:20
PROVIDERS: Nurse Practitioner Acute Care; Admitting Provider Internal Medicine Adolescent Medicine; Emergency Provider Emergency Medicine; Visit Provider Internal Medicine Adolescent Medicine
DX: M48.56XA Collapsed vertebra, not elsewhere classified, lumbar region, initial encounter for fracture (principal); N17.9 Acute kidney failure, unspecified; I13.0 Hypertensive heart and chronic kidney disease with heart failure and stage 1 through stage 4 chronic kidney disease, or unspecified chronic kidney disease; N18.9 Chronic kidney disease, unspecified; E87.5 Hyperkalemia; I48.0 Paroxysmal atrial fibrillation; I50.33 Acute on chronic diastolic (congestive) heart failure; E11.42 Type 2 diabetes mellitus with diabetic polyneuropathy; Z79.4 Long term (current) use of insulin; F41.9 Anxiety disorder, unspecified; F32.A Depression, unspecified; J96.10 Chronic respiratory failure, unspecified whether with hypoxia or hypercapnia; A04.72 Enterocolitis due to Clostridium difficile, not specified as recurrent; J44.9 Chronic obstructive pulmonary disease, unspecified; M54.50 Low back pain, unspecified; E11.22 Type 2 diabetes mellitus with diabetic chronic kidney disease; Z99.81 Dependence on supplemental oxygen; Z79.01 Long term (current) use of anticoagulants; Z79.899 Other long term (current) drug therapy
CPT/HCPCS: 36415; 72148; 74177; 80048; 80053; 81001; 82962; 83690; 83735; 84484; 85025; 87086; 87507; 87636; 93005; 94640; 94760; 97110; 97162; 97165; 97530; 97535; 99221; 99285; G0378; J0131; J3475; J7120; Q9967

== ENCOUNTER 2023-09-16 11:03 | Day surgery (SDC) | payer MEDICARE, MEDICAID, SELFPAY ==
[2023-09-15 10:45] VITALS: BMI 25.5
[2023-09-16] VITALS (7 sets, daily range): BP systolic 109–198; BP diastolic 61–89; PULSE 78–112; RESP 18; TEMP 36.4–37.3; O2SAT 91–96
[2023-09-16 11:45] LABS: POC Glucose,Bedside 143 (70-110)
[2023-09-16] MEDS: LACTATED RINGERS 1000ML 1,000 ML 25 ML IV (11:53)
[2023-09-16] MEDS: VANCOMYCIN HCL 1,000 MG in 0.9 % SODIUM CHLORIDE 250 ML 125 MG IV (12:29)
--- NOTE | 2023-09-16 13:11 | P.PNANES_ITS ---
[facility] Disclaimer: The information contained in this section may have been updated after the patient was seen, as this information can be updated by other users. Medical History Acute on chronic diastolic (congestive) heart failure Lumbar compression fracture RAGHAV (acute kidney injury) C. difficile colitis Cough Hyperkalemia Chronic respiratory failure with hypoxia COPD mixed type Elevated liver enzymes Paroxysmal atrial fibrillation Acute on chronic heart failure with preserved ejection fraction (HFpEF) Suicidal ideation Depression with suicidal ideation Abnormality of lung on CXR Pneumonia Acute and chronic respiratory failure with hypoxia Chest pain Abnormal ankle brachial index (DAVE) Pyelonephritis Restless leg syndrome Hepatitis B Depression Anxiety Chronic kidney disease Sleep apnea Migraine History of transient ischemic attack (TIA) History of hip fracture History of gastroesophageal reflux (GERD) Diabetes mellitus, type 2 Hyperlipidemia Congestive heart failure Nonspecific chest pain Hip fracture Failure to thrive Closed femur fracture Instability of left knee joint Left knee pain Vaginal pain Abnormal computed tomography angiography (CTA) of abdomen and pelvis Claudication Decreased pedal pulses Other specified symptoms and signs involving the circulatory and respiratory systems Acquired hammer toes of both feet Chronic deep vein thrombosis (DVT) of right lower extremity Primary osteoarthritis of both feet Overweight (BMI 25.0-29.9) Acute worsening of stage 3 chronic kidney disease Diabetes mellitus with neuropathy Left leg swelling Lymphedema Plantar fasciitis, left Foot pain, left Obesity (BMI 30.0-34.9) Sepsis Community acquired pneumonia Osteoarthritis of feet, bilateral Diabetic peripheral neuropathy associated with type 2 diabetes mellitus Onychoincurvatum Hepatitis C Chest pain Normal coronary arteries Foot pain, right COPD (chronic obstructive pulmonary disease) DVT (deep venous thrombosis) Cellulitis of right foot Hep B w/o coma Hep C w/o coma, chronic Endothelial dysfunction of coronary artery Elevated left ventricular end-diastolic pressure (LVEDP) Cauda equina syndrome ANNIE on CPAP Langerhan's cell histiocytosis SOB (shortness of breath) on exertion Atrial fibrillation HTN (hypertension) PAD (peripheral artery disease) Abdominal pain Diabetes mellitus Renal insufficiency Acute exacerbation of chronic obstructive airways disease Neck Pain Back pain Surgical History History of cholecystectomy History of appendectomy History of hysterectomy History of cardiac cath Family History Other Coronary artery disease Family history of diabetes mellitus type II Family history of hyperlipidemia Family history of hypertension Social History (Updated 09/16/23 @ 11:39 by Inés Norman RN) Smoking Status: Former smoker tobacco type: cigarettes packs per day: 2 second hand exposure: Yes alcohol intake: never counseling provided: none substance use type: denies use current occupational status: retired Travel in the last 8 weeks: None household members: none housing: house lives independently: Yes marital status: education level: middle school current occupational exposures/hazards: No caffeine: Yes special ping needs: No agree to transfusion: No do you feel safe at home: Yes victim of physical abuse: No victim of emotional abuse: No victim of sexual abuse: No would you like helpful sources: No [facility] Anesthesia Checklist Patient Identification Patient Identification: Arm Band and Family Structural Data Admitted From: Home Planned Operative Procedure/s: Kyphoplasty Consent for Planned Operative Procedure(s) Verified: Yes Verified Documents: Surgical Consent and History and Physical NPO Status Verified Time NPO: 00:00 Additional verifications Patient : No Anesthesia Reactions: No Hx Blood Transfusions: No Blood Transfusion Reaction: No Cephalosporin Allergy: No Previous Colonoscopy: No Airway Assessment Mallampati Score:: Class III C-Spine Mobility Assessed: Yes TMJ Mobility Assessed: Yes Dentition: Edentulous Neurological Assessment Level of Consciousness: Awake, Alert, Appropriate and Follows Commands Hx Seizures: No Numbness or tingling in extremities: No Anesthesia Plan Anesthesia Risk discussed: Yes ASA Class: III Anesthesia Type: MAC Preoperative Comments Pre-Operative Comments: CHF. afib. COPD. IDDM. IBS. Diverticulosis.
[2023-09-16] MEDS: LIDOCAINE 1% W/EPI 1:100,000 20ML VIAL 40 ML (14:40)
[2023-09-16] MEDS: LIDOCAINE 1% W/EPI 1:100,000 20ML VIAL 20 ML (15:02)
--- NOTE | 2023-09-16 15:54 | EXP.OP.NOTE ---
Date of procedure: 09/16/23 Pre-op Diagnosis:: L2 and L5 compression fractures acute Post-op Diagnosis:: Same Procedure performed:: Kyphoplasty L2 and L5 Surgeon:: Hemanth Nava MD [employer]URAL ENGINEER:: Sherman Mosley Anesthesia: MAC Estimated blood loss (mL): 5 Clinical Note:: This patient is a pleasant 63-year-old white female who is a resident of [facility] [place]. We were consulted because of acute compression fractures of L2 and L5 vertebral bodies. Patient has exhausted all conservative treatments. She is present for kyphoplasty of the L2 and L5 vertebral bodies today. Operative findings:: None Operative note:: Informed consent was obtained and risks and benefits of the procedure was explained to the patient. Patient was taken to the OR and was placed prone on the procedure table. The patient was prepped and draped in sterile fashion. I used 2 C arms for AP and lateral view of the L5 vertebral body. The skin and subcutaneous tissues were anesthetized using lidocaine. Bone access trochars were placed through the LEFT and RIGHT pedicle and advanced into the vertebral body. After accessing the vertebral body a balloon was inserted first on the LEFT side followed by the RIGHT side with approximately 3 mL of contrast placed in each balloon with good insufflation. After adequate spread of contrast through the balloon, the balloons were deflated and cement was introduced first on the LEFT side with placement of approximately 3-1/2 mL of cement with good spread throughout the vertebral body and then on the RIGHT side was approximately 3 1/2 mL cement with good spread throughout the vertebral body. There was no extrusion of cement through the lateral donaldson, anterior or posterior donaldson. Also no extrusion through superior or inferior donaldson. The bone access trochars were removed and we did the same procedure for the L2 vertebral body. Bone trocars were removed again and dressing was placed. The patient was taken back to recovery in stable condition. She had some procedure pain back pain 5 minutes after the procedure. She tolerated the procedure well with no complications and was discharged home neurologically intact. Condition: stable Disposition: PACU Complications:: None
[2023-09-16] MEDS: MORPHINE 4MG/ML SYRINGE 4 MG IV (15:57)
[2023-09-16] MEDS: IPRATROPIUM/ALBUTEROL 3 ML NEB IH (16:01)
--- NOTE | 2023-09-16 16:11 | SUR.PHASEII ---
report called and given to Sandra rubin at [facility]
== END 2023-09-16 14:18 | disposition home or self-care (01) ==
PROVIDERS: PCP Internal Medicine; Visit Provider Anesthesiology
PROC: (CPT 22514; principal; 2023-09-16 12:30)
DX: M80.88XA Other osteoporosis with current pathological fracture, vertebra(e), initial encounter for fracture (principal); Z79.899 Other long term (current) drug therapy
CPT/HCPCS: 22514; 22515; 82962; 96374; C1713; J2270; J2704; J3370; J7030; J7120; J7620

== ENCOUNTER 2023-09-21 14:34 | Outpatient (POV) | payer MEDICARE, MEDICAID, SELFPAY ==
--- OUTSIDE RECORDS SUMMARY | 2023-09-21 14:36 | XMS_ITS | Encounter Summary ---
Author Organization [facility] Address [facility] [place] [address] Encounter Details Date Type Department Care Team Description 2023-09-14 Telephone [facility] [address] [place] [address] Meli Ryder Medication Reconciliation was successfully completed by the [facility]. ASSESSMENT No Information TREATMENT PLAN No Information
[2023-09-21 14:50] VITALS: BP 102/64; PULSE 71; RESP 20; O2SAT 99; BMI 25.0
--- NOTE | 2023-09-21 15:17 | A.OFFVIS_ITS ---
[facility] Disclaimer: The information contained in this section may have been updated after the patient was seen, as this information can be updated by other users. Medical History (Updated 09/21/23 @ 15:21 by Christie Mix APRN) Acute on chronic diastolic (congestive) heart failure Lumbar compression fracture RAGHAV (acute kidney injury) C. difficile colitis Cough Hyperkalemia Chronic respiratory failure with hypoxia COPD mixed type Elevated liver enzymes Paroxysmal atrial fibrillation Acute on chronic heart failure with preserved ejection fraction (HFpEF) Suicidal ideation Depression with suicidal ideation Abnormality of lung on CXR Pneumonia Acute and chronic respiratory failure with hypoxia Chest pain Abnormal ankle brachial index (DAVE) Pyelonephritis Restless leg syndrome Hepatitis B Depression Anxiety Chronic kidney disease Sleep apnea Migraine History of transient ischemic attack (TIA) History of hip fracture History of gastroesophageal reflux (GERD) Diabetes mellitus, type 2 Hyperlipidemia Congestive heart failure Nonspecific chest pain Hip fracture Failure to thrive Closed femur fracture Instability of left knee joint Left knee pain Vaginal pain Abnormal computed tomography angiography (CTA) of abdomen and pelvis Claudication Decreased pedal pulses Other specified symptoms and signs involving the circulatory and respiratory systems Acquired hammer toes of both feet Chronic deep vein thrombosis (DVT) of right lower extremity Primary osteoarthritis of both feet Overweight (BMI 25.0-29.9) Acute worsening of stage 3 chronic kidney disease Diabetes mellitus with neuropathy Left leg swelling Lymphedema Plantar fasciitis, left Foot pain, left Obesity (BMI 30.0-34.9) Sepsis Community acquired pneumonia Osteoarthritis of feet, bilateral Diabetic peripheral neuropathy associated with type 2 diabetes mellitus Onychoincurvatum Hepatitis C Chest pain Normal coronary arteries Foot pain, right COPD (chronic obstructive pulmonary disease) DVT (deep venous thrombosis) Cellulitis of right foot Hep B w/o coma Hep C w/o coma, chronic Endothelial dysfunction of coronary artery Elevated left ventricular end-diastolic pressure (LVEDP) Cauda equina syndrome ANNIE on CPAP Langerhan's cell histiocytosis SOB (shortness of breath) on exertion Atrial fibrillation HTN (hypertension) PAD (peripheral artery disease) Abdominal pain Diabetes mellitus Renal insufficiency Acute exacerbation of chronic obstructive airways disease Neck Pain Back pain Surgical History History of cholecystectomy History of appendectomy History of hysterectomy History of cardiac cath Family History Other Coronary artery disease Family history of diabetes mellitus type II Family history of hyperlipidemia Family history of hypertension Social History (Updated 09/16/23 @ 11:39 by Inés Norman RN) Smoking Status: Former smoker tobacco type: cigarettes packs per day: 2 second hand exposure: Yes alcohol intake: never counseling provided: none substance use type: denies use current occupational status: retired Travel in the last 8 weeks: None household members: none housing: house lives independently: Yes marital status: education level: middle school current occupational exposures/hazards: No caffeine: Yes special ping needs: No agree to transfusion: No do you feel safe at home: Yes victim of physical abuse: No victim of emotional abuse: No victim of sexual abuse: No would you like helpful sources: No PM Subjective & Objective Subjective Subjective:: Patient is a pleasant 63-year-old female who presents today for follow-up of kyphoplasty of L2 and L5. Today she rates her pain pain 8 out of 10. Patient denies any new trauma or injury. Patient denies states she continues to have chronic pain throughout her low back with radiating symptoms down into her right leg. Patient does state that she has not had any problems following the procedure however she really cannot say that it was a huge improvement. Patient does state that she had physical therapy today and has been having more pains into her lower leg. Patient is currently managed with Percocet and gabapentin from her primary care however she states that where she is in rehab at the [facility] in [place] for recovery that she has not really been getting her medication as prescribed. Patient states that there have been times that if she did not ask for it they did not get it and that she has been in a lot more pain. Patient does state that even this morning she had medication however they did not mention or offer anything past that point and here it is all the way in to the afternoon and having much more severe pain. Patient does have severe COPD and is on 3 L O2 and also has a heart history with A-fib. Her Jordin has been reviewed and is appropriate. Review of Systems: General: No recent weight changes, no fever, no sleep disturbances Respiratory: No cough, no shortness of air, no recurring pulmonary infections Cardiovascular/peripheral vascular: No chest pain, no palpitations, no edema, no shortness of breath Gastrointestinal: No new onset incontinence, normal bowel movements reported Genitourinary: No new onset incontinence Musculoskeletal: Low back pain, leg pain Psychiatric: [Normal mood/affect] Neurological: [Denies weakness in extremities], [denies balance issues] Pain at rest (0-10 scale): 8 Objective Objective:: Physical Exam: General: Alert and oriented x3, no acute distress, pleasant and cooperative Lungs: Respirations even and unlabored, symmetrical chest expansion Eyes: PERRL Musculoskeletal: Flexion and extension of lumbar [spine] somewhat guarded secondary to pain, [antalgic gait noted] Neurological: Speech clear, no gross sensory deficit Has patient had previous pain injection?: No Conservative treatment options previously tried: Physical Therapy Length of treatment: Current therapy Meds Home Medications and Allergies Home Medications ?Medication ?Instructions ?Recorded ?Confirmed ?Type apixaban 5 mg tablet (Eliquis) 5 mg PO BID Blood Thinner 09/06/22 09/21/23 History metformin 500 mg tablet 1,000 mg (2 x 500 mg) PO BID 02/17/23 09/21/23 Rx Diabetes 90 days #360 tabs sertraline 100 mg tablet 150 mg PO DAILY 05/28/23 09/21/23 History fluticasone fur. 100 mcg-umeclid 1 inh inhalation DAILY 30 days #1 05/30/23 09/21/23 Rx 62.5 mcg-vilant 25 mcg ea inhalat.powder (Trelegy Ellipta) metoprolol tartrate 25 mg tablet 12.5 mg (1/2 x 25 mg) PO BID 30 05/30/23 09/21/23 Rx days #30 tabs famotidine 20 mg tablet 20 mg PO BID #60 tabs 08/20/23 09/21/23 Rx bumetanide 2 mg tablet 2 mg PO DAILY 08/23/23 09/21/23 History insulin lispro 100 unit/mL 1 sliding scale dose SQ 08/23/23 09/21/23 History subcutaneous pen (Admelog Jose J USEASDIRECTD U-100 Insulin lispro) atorvastatin 10 mg tablet 10 mg PO HS 09/03/23 09/21/23 History buspirone 5 mg tablet 10 mg PO BID 09/03/23 09/21/23 History isosorbide mononitrate 30 mg 30 mg PO DAILY 09/03/23 09/21/23 History tablet,extended release 24 hr ipratropium 0.5 mg-albuterol 3 mg 3 ml inhalation Q6HP PRN SHORTNESS 09/04/23 09/21/23 History (2.5 mg base)/3 mL nebulization OF BREATH/WHEEZING soln calcium polycarbophil 625 mg 1,250 mg (2 x 625 mg) PO BID 30 09/06/23 09/21/23 Rx tablet (FiberCon) days #120 tabs gabapentin 300 mg capsule 300 mg PO TID 30 days #90 caps 09/06/23 09/21/23 Rx oxycodone-acetaminophen 7.5 mg-325 1 tab PO QID 3 days #12 tabs 09/06/23 09/21/23 Rx mg tablet dapagliflozin propanediol 10 mg 10 mg PO DAILY #90 tabs 09/07/23 09/21/23 Rx tablet (Farxiga) acetaminophen 500 mg tablet 500 mg PO TID PRN Pain 09/16/23 09/21/23 History insulin glargine 100 unit/mL 12 unit SQ BID 09/16/23 09/21/23 History subcutaneous solution lidocaine 5 % topical patch 1 patch topical DAILY 09/16/23 09/21/23 History (Lidoderm) omeprazole 40 mg capsule,delayed 40 mg PO DAILY 09/16/23 09/21/23 History release quetiapine 50 mg tablet 50 mg PO DAILY 09/16/23 09/21/23 History New Prescriptions to Start Prescriptions: Allergies Allergy/AdvReac Type Severity Reaction Status Date / Time methocarbamol Allergy Severe Altered Verified 09/16/23 11:43 mental status terbutaline [TERBUTALINE] Allergy Severe SWELLS Verified 09/16/23 11:43 THROAT aspirin [ASPIRIN] Allergy Intermediate I-RASH Verified 09/16/23 11:43 codeine [CODEINE] Allergy Intermediate Swelling Verified 09/16/23 11:43 of the Eye diphenhydramine Allergy Intermediate Hives Verified 09/16/23 11:43 [From Benadryl] Sulfa (Sulfonamide Allergy Intermediate Hives Verified 09/16/23 11:43 Antibiotics) [SULFA (SULFONAMIDE ANTIBIOTICS)] sulfamethoxazole Allergy Intermediate Hives Verified 09/16/23 11:43 [From Bactrim] trimethoprim [From Bactrim] Allergy Intermediate Hives Verified 09/16/23 11:43 naproxen [NAPROXEN] Allergy Mild itching Verified 09/16/23 11:43 tramadol [TRAMADOL] Allergy Mild Vomiting Verified 09/16/23 11:43 citalopram [CITALOPRAM] Allergy Unknown SKIN PEEL Verified 09/16/23 11:43 erythromycin base Allergy Unknown I-RASH Verified 09/16/23 11:43 [ERYTHROMYCIN BASE] Penicillins [PENICILLINS] Allergy Unknown I-RASH Verified 09/16/23 11:43 fluticasone Allergy Verified 09/16/23 11:43 [From Advair Diskus] salmeterol Allergy Verified 09/16/23 11:43 [From Advair Diskus] bupropion [BUPROPION] AdvReac Severe Hallucinati Verified 09/16/23 11:43 ng duloxetine [DULOXETINE] AdvReac Severe Hallucinati Verified 09/16/23 11:43 ng pregabalin [PREGABALIN] AdvReac Severe Hallucinati Verified 09/16/23 11:43 ng celecoxib [From CELEBREX] AdvReac Mild Vomiting Verified 09/16/23 11:43 Assessment and Plan *Assessment and plan (1) Lumbar compression fracture: Status: Acute Qualifiers: Encounter type: subsequent encounter Lumbar vertebra fracture level: L2 Fracture healing: with routine healing Qualified Code(s): S32.020D - Wedge compression fracture of second lumbar vertebra, subsequent encounter for fracture with routine healing Category: Medical Code(s): S32.000A - Wedge compression fracture of unspecified lumbar vertebra, initial encounter for closed fracture (2) Low back pain: Status: Acute Qualifiers: Chronicity: acute Back pain laterality: bilateral Sciatica presence: without sciatica Qualified Code(s): M54.50 - Low back pain, unspecified Category: Medical Code(s): M54.50 - Low back pain, unspecified Plan I have discussed at length with the patient that we can always try and do additional injections however at this time she would like to wait. I did discuss with the patient that it may be very beneficial to talk to her primary care about possibly reaching out to the facility that she is at in order to have better coordination between her prescriptions while she is out of this facility. I have also discussed with the patient that it may be beneficial to set timers to help her remember to request the pain medication so that her pain does not get as severe. I will order the patient a compounded cream. Patient was counseled that she can contact our office at her convenience for her next scheduled follow-up appointment. Patient is in agreement with this. Patient is scheduled for a bone scan tomorrow and I did also discuss that it may be beneficial to talk to her primary care depending on the results about being on a stronger medication for osteoporosis. We will follow-up with this at future visits. Patient has been instructed to contact the clinic with any concerns before the next appointment. Dr. Nava has reviewed this note and agrees with this plan of care. This note was dictated using voice recognition software and make contain errors or omissions. All injections are used with Lidocaine or Bupivacaine and Depo Medrol.
== END 2023-09-21 23:59 | disposition home or self-care (01) ==
LOC: SC.PAIN 14:35
PROVIDERS: PCP Internal Medicine; Visit Provider Nurse Practitioner Family
DX: S32.020D Wedge compression fracture of second lumbar vertebra, subsequent encounter for fracture with routine healing (principal); M54.50 Low back pain, unspecified
CPT/HCPCS: 99212; G0463

== ENCOUNTER 2023-12-23 07:04 | Emergency (ER) | payer MEDICARE, MEDICAID, SELFPAY ==
[2023-12-23] VITALS (9 sets, daily range): BP systolic 135–186; BP diastolic 61–91; PULSE 69–77; RESP 16–20; TEMP 36.6; O2SAT 96–100; BMI 42.9
--- NOTE | 2023-12-23 07:15 | PC.NURSE ---
Dr. Ramos at bedside
--- NOTE | 2023-12-23 07:16 | XR_ITS ---
FINAL REPORT CLINICAL HISTORY: SOA, hypoglycemia COMPARISON: 06/16/2023 FINDINGS: A single portable view of the chest was obtained. Cardiomegaly is present. There is moderate fibrosis/scar present, stable when compared to the prior exam. The mediastinum is within normal limits. No acute pulmonary abnormality is identified. The bony thorax is intact. A loop recorder is identified. IMPRESSION: Moderate fibrosis/scar, stable. No acute pulmonary abnormality identified. Reviewed, Interpreted and Dictated by Fredrick Lala III, MD Transcribed by Izabela Mendez Authenticated and [facility]
--- NOTE | 2023-12-23 07:23 | ECG_ITS ---
APPROVED REPORT Exam: Resting ECG HR:71 bpm ECG Measurements Heart Rate 71 AXES RI 164 P 62 QRSd 65 QRS 0 QT 391 T 35 QTc 414 Conclusion SINUS RHYTHM POSSIBLE RIGHT VENTRICULAR CONDUCTION DELAY [RSR (QR) IN V1/V2] BORDERLINE ECG Electronically signed by : KAYLI TAN, 12/23/2023 16:44:38
--- OUTSIDE RECORDS SUMMARY | 2023-12-23 07:25 | XMS_ITS ---
Author Organization Unknown ALLERGIES AND ADVERSE REACTIONS No information ASSESSMENT No information CHIEF COMPLAINT No information MEDICATIONS No information OBJECTIVE DATA No information PHYSICAL EXAMINATION No information TREATMENT PLAN Planned Care Start Date Provider Encounter for Check-up [id number] [facility] PROBLEMS No information RESULTS No information REVIEW OF SYSTEMS No information SUBJECTIVE DATA No information VITAL SIGNS No information
--- OUTSIDE RECORDS SUMMARY | 2023-12-23 07:25 | XMS_ITS ---
Laboratory report Created on: October 28, 2023 MAGGIE CLINE : 1960 Sex: Female Author Organization Unknown PROBLEMS Problems List Code Description RESULTS Laboratory Orders Date Order Code Test 2023-02-17 [id number] ACUTE HEPATITIS Laboratory Results Date LOINC Test Value Unit Reference Range Interpre tation 2023-02-17 [id number] HEP A AB, IGM N NEGATIVE 2023-02-17 5196-1 HBSAG SCREEN N NEGATIVE 2023-02-17 [id number] HEP B CORE AB, IGM N NEGATIVE 2023-02-17 38767-1 HCV AB JOSE ANTONIO NON REACTIVE A 2023-02-17 [id number] HEPATITIS C QUANTITATION HCVTND IU/ML 2023-02-17 [id number] INTERPRETATION: NNAT
--- OUTSIDE RECORDS SUMMARY | 2023-12-23 07:25 | XMS_ITS ---
Laboratory report Created on: October 28, 2023 MAGGIE CLINE : 1960 Sex: Female Author Name TATA [facility] Unknown PROBLEMS Problems List Code Description RESULTS Laboratory Orders Date Order Code Test 2022-09-09 [id number] RPR, RFX QN RPR/ CONFIRM TP Laboratory Results Date LOINC Test Value Unit Reference Range Interpre tation 2022-09-0964213-9 RPR NR NON REACTIVE
[2023-12-23 07:26] LABS: Basophils # 0.1 K/mm3 (0-0.2); Basophils % 0.7 % (0.1-2.0); Eosinophils # 0.2 K/mm3 (0.0-0.4); Eosinophils % 2.3 % (0.1-12.0); Hematocrit 35.4 % (37.0-47.0); Hemoglobin 11.1 g/dL (12.2-16.2); Lymphocytes % 20.1 % (10-50); Mean Corpuscular HGB Conc 31.4 g/dL (31.8-35.4); Mean Corpuscular Hemoglobin 25.7 pg (27.0-31.2); Mean Corpuscular Volume 81.8 fl (81-99); Mean Platelet Volume 7.2 fl (7.4-10.4); Monocytes # 0.8 K/mm3 (0.1-1.0); Monocytes % 8.5 % (1.7-9.3); Neutrophils # 6.6 K/mm3 (1.8-7.8); Neutrophils % 68.3 % (37.0-80.0); Platelet Count 350 K/mm3 (142-424); Red Blood Count 4.33 M/mm3 (4.20-5.40); Red Cell Distribution Width 16.8 % (11.5-17.5); White Blood Count 9.7 K/mm3 (4.8-10.8)
--- NOTE | 2023-12-23 07:26 | HMH.EDGENADL ---
Discharge Plan Disposition Patient Disposition: Home, Self-Care Condition: Good Prescriptions Prescriptions: No Action bumetanide 2 mg tablet 2 mg PO DAILY insulin lispro [Admelog SoloStar U-100 Insulin] 100 unit/mL insulin pen 1 sliding scale dose SQ USEASDIRECTD metformin 500 mg tablet 1,000 mg PO BID 90 Days Qty: 360 2RF insulin glargine-yfgn 100 unit/mL solution SQ omeprazole 20 mg capsule,delayed release(DR/EC) 20 mg PO guaifenesin [Mucus Relief ER] 600 mg tablet extended release 12hr PO polyethylene glycol 3350 [ClearLax] 17 gram/dose powder 17 g PO insulin glargine-yfgn 100 unit/mL (3 mL) insulin pen SQ zinc oxide 20 % ointment topical (DME) BD AutoShield Duo Pen Needle 30 gauge x 3/16 needle See Rx Instructions .ROUTE .MEDSUPPLY Qty: 100 Rx Instructions: As directed Movantik 25 mg tablet 25 mg PO DAILY Qty: 30 5RF Rx Instructions: must be taken on empty stomach; no food 1 hr after or 2-3 hrs before dose dapagliflozin propanediol [Farxiga] 10 mg tablet 10 mg PO DAILY Qty: 90 0RF famotidine 20 mg tablet See Rx Instructions .ROUTE .COMPLEX Qty: 60 2RF Dose Instruction: TAKE ONE TABLET BY MOUTH TWICE DAILY needs appointment FOR further refills Rx Instructions: TAKE ONE TABLET BY MOUTH TWICE DAILY needs appointment FOR further refills buspirone 5 mg tablet See Rx Instructions .ROUTE .COMPLEX Qty: 60 4RF Dose Instruction: TAKE TWO TABLETS BY MOUTH TWICE DAILY MAY CAUSE DROWSINESS Rx Instructions: TAKE TWO TABLETS BY MOUTH TWICE DAILY MAY CAUSE DROWSINESS Eliquis 5 mg tablet 5 mg PO BID Patient Comments: TAKE ONE TABLET BY MOUTH TWICE DAILY FOR BLOOD THINNER sertraline 100 mg tablet 150 mg PO DAILY Patient Comments: TAKE 1 AND 1/2 TABLET BY MOUTH EVERY DAY Trelegy Ellipta 100-62.5-25 mcg Blister With Device 1 inh inhalation DAILY 30 Days Qty: 1 0RF metoprolol tartrate 25 mg Tablet 12.5 mg PO BID 30 Days Qty: 30 0RF insulin glargine [Semglee U-100 Insulin] 100 unit/mL Solution 12 unit SQ BID acetaminophen 500 mg Tablet 500 mg PO TID PRN (Reason: Pain) lidocaine [Lidoderm] 5 % Adhesive Patch,Medicated 1 patch topical DAILY quetiapine 50 mg tablet 50 mg PO DAILY isosorbide mononitrate 30 mg tablet extended release 24 hr 30 mg PO DAILY Rx Instructions: TAKE ONE TABLET BY MOUTH EVERY DAY atorvastatin 10 mg tablet 10 mg PO HS Rx Instructions: TAKE ONE TABLET BY MOUTH EVERY DAY AT BEDTIME ipratropium-albuterol 0.5 mg-3 mg(2.5 mg base)/3 mL solution for nebulization 3 ml INHALATION Q6HP PRN (Reason: SHORTNESS OF BREATH/WHEEZING) Patient Comments: INHALE THE CONTENTS OF 1 VIAL VIA NEBULIZER EVERY 6 HOURS NEEDED FOR SHORTNESS OF BREATH OR WHEEZING calcium polycarbophil [FiberCon] 625 mg Tablet 1,250 mg PO BID 30 Days Qty: 120 0RF gabapentin 300 mg capsule 300 mg PO TID 30 Days Qty: 90 2RF oxycodone-acetaminophen 7.5-325 mg tablet 1 tab PO QID 3 Days Qty: 12 0RF Patient Comments: 1 tab orally three times a day As Needed for Moderate Pain (Scale Score 5-6) Referrals Follow up/Referrals: Provider,Referral, MD [Referring] - See instructions Activity Restrictions/Add. Instructions Additional Instructions/Restrictions: You were evaluated in the emergency department today. Please contact your primary care provider today to discuss your insulin regimen and to arrange close outpatient follow-up. I recommend holding your night time dose of insulin for the perceivable future. I also recommend holding your remaining doses of insulin today. Not taking your stool softener. Use caution when using insulin if you have not eaten as much as usual. Do not administer large dose of insulin without eating if you have low blood sugar on fingerstick. Return to the emergency department for new or worsening symptoms. Clinical Impressions Clinical Impression: Hypoglycemia, COPD (chronic obstructive pulmonary disease) Instructions Patient Instructions: Insulin, How to Check Your Blood Glucose, DI for Diabetes Type 2, DI for Hypoglycemia Print Language Print Language: Polish Discharge ED Provider: Christie Ramos General Adult HPI General Chief complaint: Hyper/Hypoglycemia Stated complaint: hypoglycemea Time Seen by Provider: 12/23/23 07:04 Mode of Arrival: EMS Source of Information: Patient and EMS Limitations: No Limitations Description of Symptoms (Recalled from ER Triage Doc. by RN): When EMS was dispatched on their arrival pts BSFS was 29. pt was given 250 mg of D10 and 5ml of D25 in route. pt BSFS is 80 on arrival. pt is A&Ox4. pts brother is her caregiver and recently started dosing her insulin. per EMS he gives sliding scale whether her FS is low. pt also c/o of chest congestion and has a wet and weak cough. pt also c/p diarrhea x3wks History of Present Illness HPI narrative: This patient is a 63-year-old female with a history of hypertension, hyperlipidemia, type 2 diabetes, COPD, renal insufficiency, ANNIE, atrial fibrillation, CHF, obesity presenting to the emergency department for evaluation with concern for hypoglycemia. According to EMS, they were called to the home of the patient with concern for altered mental status and patient was found to have a fingerstick blood glucose of 29. Patient was given 250 mL of D10 and 5 mL of D25 en route. Patient's fingerstick blood glucoses 80 on arrival. At this time, her only complaint is that she hurts all over, which she states has been going on for a long time. She denies any concerns or complaints otherwise. She did tell nursing that she had diarrhea, but she denies any issues to me. According to EMS, family had checked her blood sugar and noted that it was pretty low but they still give her sliding scale despite being low and her not eating much last night. Related Data Home Medications ?Medication ?Instructions ?Recorded ?Confirmed apixaban 5 mg tablet (Eliquis) 5 mg PO BID Blood Thinner 09/06/22 12/01/23 sertraline 100 mg tablet 150 mg PO DAILY 05/28/23 12/01/23 bumetanide 2 mg tablet 2 mg PO DAILY 08/23/23 12/01/23 insulin lispro 100 unit/mL 1 sliding scale dose SQ 08/23/23 12/01/23 [facility] USEASDIRECTD U-100 Insulin lispro) atorvastatin 10 mg tablet 10 mg PO HS 09/03/23 12/01/23 isosorbide mononitrate 30 mg 30 mg PO DAILY 09/03/23 12/01/23 tablet,extended release 24 hr ipratropium 0.5 mg-albuterol 3 mg 3 ml inhalation Q6HP PRN SHORTNESS 09/04/23 12/01/23 (2.5 mg base)/3 mL nebulization OF BREATH/WHEEZING soln acetaminophen 500 mg tablet 500 mg PO TID PRN Pain 09/16/23 12/01/23 insulin glargine 100 unit/mL 12 unit SQ BID 09/16/23 12/01/23 subcutaneous solution lidocaine 5 % topical patch 1 patch topical DAILY 09/16/23 12/01/23 (Lidoderm) quetiapine 50 mg tablet 50 mg PO DAILY 09/16/23 12/01/23 guaifenesin 600 mg tablet, mg PO 12/01/23 12/01/23 extended release 12 hr (Mucus Relief ER) insulin glargine-yfgn 100 unit/mL unit SQ 12/01/23 12/01/23 (3 mL) subcutaneous pen insulin glargine-yfgn 100 unit/mL unit SQ 12/01/23 12/01/23 subcutaneous solution omeprazole 20 mg capsule,delayed 20 mg PO 12/01/23 12/01/23 release pen needle,diabetic dual safty 30 #100 ea 12/01/23 12/01/23 gauge x 3/16 (BD AutoShield Duo Pen Needle) polyethylene glycol 3350 17 17 g PO 12/01/23 12/01/23 gram/dose oral powder (ClearLax) zinc oxide 20 % topical ointment topical 12/01/23 12/01/23 Previous Rx's ?Medication ?Instructions ?Recorded metformin 500 mg tablet 1,000 mg (2 x 500 mg) PO BID 02/17/23 Diabetes 90 days #360 tabs fluticasone fur. 100 mcg-umeclid 1 inh inhalation DAILY 30 days #1 05/30/23 62.5 mcg-vilant 25 mcg ea inhalat.powder (Trelegy Ellipta) metoprolol tartrate 25 mg tablet 12.5 mg (1/2 x 25 mg) PO BID 30 05/30/23 days #30 tabs calcium polycarbophil 625 mg 1,250 mg (2 x 625 mg) PO BID 30 09/06/23 tablet (FiberCon) days #120 tabs gabapentin 300 mg capsule 300 mg PO TID 30 days #90 caps 09/06/23 oxycodone-acetaminophen 7.5 mg-325 1 tab PO QID 3 days #12 tabs 09/06/23 mg tablet dapagliflozin propanediol 10 mg 10 mg PO DAILY #90 tabs 09/07/23 tablet (Farxiga) famotidine 20 mg tablet See Rx Instructions .Route 10/18/23 .COMPLEX #60 tabs buspirone 5 mg tablet See Rx Instructions .Route 11/22/23 .COMPLEX #60 tabs naloxegol 25 mg tablet (Movantik) 25 mg PO DAILY #30 tabs 12/01/23 Allergies Allergy/AdvReac Type Severity Reaction Status Date / Time methocarbamol Allergy Severe Altered Verified 12/23/23 07:27 mental status terbutaline [TERBUTALINE] Allergy Severe SWELLS Verified 12/23/23 07:27 THROAT aspirin [ASPIRIN] Allergy Intermediate I-RASH Verified 12/23/23 07:27 codeine [CODEINE] Allergy Intermediate Swelling Verified 12/23/23 07:27 of the Eye diphenhydramine Allergy Intermediate Hives Verified 12/23/23 07:27 [From Benadryl] Sulfa (Sulfonamide Allergy Intermediate Hives Verified 12/23/23 07:27 Antibiotics) [SULFA (SULFONAMIDE ANTIBIOTICS)] sulfamethoxazole Allergy Intermediate Hives Verified 12/23/23 07:27 [From Bactrim] trimethoprim [From Bactrim] Allergy Intermediate Hives Verified 12/23/23 07:27 naproxen [NAPROXEN] Allergy Mild itching Verified 12/23/23 07:27 tramadol [TRAMADOL] Allergy Mild Vomiting Verified 12/23/23 07:27 citalopram [CITALOPRAM] Allergy Unknown SKIN PEEL Verified 12/23/23 07:27 erythromycin base Allergy Unknown I-RASH Verified 12/23/23 07:27 [ERYTHROMYCIN BASE] Penicillins [PENICILLINS] Allergy Unknown I-RASH Verified 12/23/23 07:27 fluticasone Allergy Unknown Verified 12/23/23 07:27 [From Advair Diskus] allergy reaction salmeterol Allergy Unknown Verified 12/23/23 07:27 [From Advair Diskus] allergy reaction bupropion [BUPROPION] AdvReac Severe Hallucinati Verified 12/23/23 07:27 ng duloxetine [DULOXETINE] AdvReac Severe Hallucinati Verified 12/23/23 07:27 ng pregabalin [PREGABALIN] AdvReac Severe Hallucinati Verified 12/23/23 07:27 ng celecoxib [From CELEBREX] AdvReac Mild Vomiting Verified 12/23/23 07:27 [facility] Disclaimer: The information contained in this section may have been updated after the patient was seen, as this information can be updated by other users. Medical History Acute on chronic diastolic (congestive) heart failure Lumbar compression fracture RAGHAV (acute kidney injury) C. difficile colitis Cough Hyperkalemia Chronic respiratory failure with hypoxia COPD mixed type Elevated liver enzymes Paroxysmal atrial fibrillation Acute on chronic heart failure with preserved ejection fraction (HFpEF) Suicidal ideation Depression with suicidal ideation Abnormality of lung on CXR Pneumonia Acute and chronic respiratory failure with hypoxia Chest pain Abnormal ankle brachial index (DAVE) Pyelonephritis Restless leg syndrome Hepatitis B Depression Anxiety Chronic kidney disease Sleep apnea Migraine History of transient ischemic attack (TIA) History of hip fracture History of gastroesophageal reflux (GERD) Diabetes mellitus, type 2 Hyperlipidemia Congestive heart failure Nonspecific chest pain Hip fracture Failure to thrive Closed femur fracture Instability of left knee joint Left knee pain Vaginal pain Abnormal computed tomography angiography (CTA) of abdomen and pelvis Claudication Decreased pedal pulses Other specified symptoms and signs involving the circulatory and respiratory systems Acquired hammer toes of both feet Chronic deep vein thrombosis (DVT) of right lower extremity Primary osteoarthritis of both feet Overweight (BMI 25.0-29.9) Acute worsening of stage 3 chronic kidney disease Diabetes mellitus with neuropathy Left leg swelling Lymphedema Plantar fasciitis, left Foot pain, left Obesity (BMI 30.0-34.9) Sepsis Community acquired pneumonia Osteoarthritis of feet, bilateral Diabetic peripheral neuropathy associated with type 2 diabetes mellitus Onychoincurvatum Hepatitis C Chest pain Normal coronary arteries Foot pain, right COPD (chronic obstructive pulmonary disease) DVT (deep venous thrombosis) Cellulitis of right foot Hep B w/o coma Hep C w/o coma, chronic Endothelial dysfunction of coronary artery Elevated left ventricular end-diastolic pressure (LVEDP) Cauda equina syndrome ANNIE on CPAP Langerhan's cell histiocytosis SOB (shortness of breath) on exertion Atrial fibrillation HTN (hypertension) PAD (peripheral artery disease) Abdominal pain Diabetes mellitus Renal insufficiency Acute exacerbation of chronic obstructive airways disease Neck Pain Back pain Surgical History History of cholecystectomy History of appendectomy History of hysterectomy History of cardiac cath Family History Other Coronary artery disease Family history of diabetes mellitus type II Family history of hyperlipidemia Family history of hypertension Social History Smoking Status: Never smoker second hand exposure: Yes alcohol intake: never counseling provided: none substance use type: denies use current occupational status: retired Travel in the last 8 weeks: None household members: none housing: house lives independently: Yes marital status: education level: middle school current occupational exposures/hazards: No caffeine: Yes special ping needs: No agree to transfusion: No do you feel safe at home: Yes victim of physical abuse: No victim of emotional abuse: No victim of sexual abuse: No would you like helpful sources: No Other Medical History Have you received the Flu Vaccine for this season: Yes Have you received the Pneumonia Vaccine: Yes ROS Obtained: Yes All systems reviewed & no additional complaints except as documented Physical Exam General General appearance: alert and in no apparent distress Head Head exam: atraumatic and normocephalic Eye Eye exam: Present normal appearance, PERRL and EOMI ENT ENT exam: Present normal exam, normal oropharynx, mucous membranes moist and normal external ear exam Neck Neck exam: Present normal inspection, full ROM and trachea midline; Absent tenderness Chest Chest inspection: Present normal inspection and symmetric chest wall rise; Absent tenderness Respiratory Respiratory exam: Present wheezes; Absent respiratory distress, stridor, accessory muscle use or prolonged expiratory phase Cardiovascular Cardiovascular exam: Present regular rate and normal rhythm Abdominal Exam Abdominal exam: Present soft; Absent distention, tenderness or guarding Extremities Exam Extremities exam: Present normal inspection, full ROM and normal capillary refill; Absent tenderness or edema Back Exam Back exam: Present normal inspection and full ROM; Absent tenderness Neurological Exam Neurological exam: Present alert, oriented X3 and CN II-XII intact; Absent motor sensory deficit Psychiatric Psychiatric exam: Present normal affect and normal mood Skin Skin exam: Present warm and dry Medical Decision Making Medical Records Medical records reviewed: Yes I reviewed the patient's medical records. Screening: Per USPSTF and CDC recommendations, given the prevalence of disease in our region, it is our hospital?s policy to screen for HIV and viral Hepatitis for all patients aged 18 and over and those with ongoing risk factors. Jordin Inquiry Pt receiving controlled substance: No Vital Signs: 12/23/23 07:05 12/23/23 07:10 12/23/23 07:31 Temperature 97.9 F Temperature Source Oral Pulse Rate 69 73 Pulse Rate [Left] 73 Respiratory Rate 20 Blood Pressure 186/88 H 142/83 H Blood Pressure [Right Arm] 186/88 H Blood Pressure Mean 106 92 Blood Pressure Mean [Right Arm] 120 Blood Pressure Source [Right Arm] Automatic Cuff Blood Pressure Position [Right Arm] Sitting 02 Sat by Pulse Oximetry 96 97 100 Oxygen Delivery Method Nasal Cannula Oxygen Flow Rate (LPM) 2 12/23/23 08:00 12/23/23 08:26 12/23/23 08:30 Temperature Temperature Source Pulse Rate 75 77 77 Pulse Rate [Left] Respiratory Rate Blood Pressure 178/65 H 178/65 H 166/68 H Blood Pressure [Right Arm] Blood Pressure Mean Blood Pressure Mean [Right Arm] Blood Pressure Source [Right Arm] Blood Pressure Position [Right Arm] 02 Sat by Pulse Oximetry 97 96 96 Oxygen Delivery Method Nasal Cannula Nasal Cannula Nasal Cannula Oxygen Flow Rate (LPM) 2 2 2 12/23/23 09:00 12/23/23 09:30 12/23/23 12:51 Temperature 98 F Temperature Source Pulse Rate 73 77 75 Pulse Rate [Left] Respiratory Rate 16 Blood Pressure 135/61 153/73 H 153/91 H Blood Pressure [Right Arm] Blood Pressure Mean Blood Pressure Mean [Right Arm] Blood Pressure Source [Right Arm] Blood Pressure Position [Right Arm] 02 Sat by Pulse Oximetry 97 97 Oxygen Delivery Method Nasal Cannula Nasal Cannula Nasal Cannula Oxygen Flow Rate (LPM) 2 2 2 Lab Data Lab results reviewed: Yes I reviewed the patient's lab results. Lab Results 12/23/23 07:05: WBC 9.7, RBC 4.33, Hgb 11.1 L, Hct 35.4 L, MCV 81.8, MCH 25.7 L, MCHC 31.4 L, RDW 16.8, Plt Count 350, MPV 7.2 L, Neut % (Auto) 68.3, Lymph % (Auto) 20.1, [place] % (Auto) 8.5, Eos % (Auto) 2.3, Baso % (Auto) 0.7, Neut # (Auto) 6.6, Lymph # (Auto) 2.0, [place] # (Auto) 0.8, Eos # (Auto) 0.2, Baso # (Auto) 0.1, Sodium 142, Potassium 4.4, Chloride 102, Carbon Dioxide 37 H, Anion Gap 7.4, BUN 46 H, Creatinine 1.30 H, Estimated Creat Clear 39, Estimated GFR 42 L, Est GFR ( Amer) 50 L, Glucose 74, Hemoglobin A1c 6.4 H, Calcium 8.9, Total Bilirubin 0.6, AST 37 H, ALT 23, Alkaline Phosphatase 126, Total Protein 8.0 D, Albumin 3.8, Globulin 4.2 H, Albumin/Globulin Ratio 0.9 L, Procalcitonin 0.129, HIV 1&2 Antibody Rapid Nonreactive 12/23/23 07:16: VBG pH 7.33, VBG pCO2 62.6 H, VBG pO2 29.0, VBG HCO3 31.9 H, VBG Total CO2 33.8 H, VBG O2 Saturation 45.5 L, VBG Base Excess 5.9 H, VBG Lactic Acid 2.0 12/23/23 08:30: Urine Color Yellow, Urine Appearance Clear, Urine pH 6.0, Ur Specific [place] 1.020, Urine Protein 2+ A, Urine Glucose (UA) 1+, Urine Ketones Negative, Urine Blood 1+ A, Urine Nitrate Negative, Urine Bilirubin Negative, Urine Urobilinogen 0.2, Ur Leukocyte Esterase Negative, Urine RBC 3-5, Urine WBC Occasional, Ur Squamous Epith Cells 3-5, Urine Bacteria None 12/23/23 07:05 12/23/23 07:05 Orders (Tests/Meds): ED MEDICATIONS Discontinued Medications Generic Name Dose Route Start Last Admin Trade Name Freq PRN Reason Stop Dose Admin Albuterol/Ipratropium 3 ml 12/23/23 07:16 12/23/23 07:29 Ipratropium/Albuterol 3 Ml Neb IH 12/23/23 07:17 3 ml ONCE ONE Administration ORDERS Category Date Time Status Care Management Consult [Consult to Case Management] [ Cons 12/23/23 09:53 Active CONS] Routine CXR --portable [XR chest portable] Stat Exams 12/23/23 07:16 Completed Complete Blood Count Auto Diff Stat Lab 12/23/23 07:05 Completed Comprehensive Metabolic Panel Stat Lab 12/23/23 07:05 Completed HIV (1&2) Antibody Rapid Stat Lab 12/23/23 07:05 Completed Hemoglobin A1C Stat Lab 12/23/23 07:05 Completed Hep C Ab with Reflex to RNA Stat Lab 12/23/23 07:05 Received Procalcitonin Stat Lab 12/23/23 07:05 Completed UA [Urinalysis and Microscopic] Stat Lab 12/23/23 08:30 Completed Urine Culture Stat Micro 12/23/23 08:30 Received VBG [Venous Blood Gas] Stat RT 12/23/23 07:16 Completed ECG Data Tracing #1: I reviewed this ECG and interpreted as documented below: Normal sinus rhythm with a ventricular rate of [address] changes concerning for ischemia. Normal intervals. ECG initial impression date: 12/23/23 ECG initial impression time: 07:25 Medical Decision Narrative: In summary, this patient is a 63-year-old female presenting to the Emergency Department for evaluation of hypoglycemia. Differential diagnoses considered include but are not limited to insulin misuse, dehydration, electrolyte derangements, sepsis, urinary tract infection. Ruling out the most morbid conditions drove assessment. It should be noted patient's history includes hypertension, hyperlipidemia, CHF, type 2 diabetes, and COPD which likely are not at goal therapy. This complicates all aspects of care by increasing patient's risk for morbidity. On exam, the patient is sitting upright in bed in no acute distress. She does have wheezing noted in the setting of COPD, so I ordered her nebulizer treatment. Patient is alert, conversational, and denies any specific concerns or complaints except for pain all over. Will obtain basic screening labs as well as urine and chest x-ray to look for any notable sources of infection. I do, however, suspect that this is most likely related to insulin misuse at home. Abdominal exam and cardiopulmonary exams are benign with the exception of her wheezing. Will also obtain serial fingerstick blood glucoses. Initial when here was 80, and repeat after drinking orange juice was 107. I independently interpreted x-ray prior to the radiologist read and noted no obvious concerns for pneumonia. Please see their read for final interpretation. Labs were obtained that demonstrated urine is not grossly concerning for infection but is slightly contaminated with skin cells. Urine culture was sent and is pending. Labs are otherwise reassuring. At 0815, patient was placed in ED observation status pending serial fingerstick blood glucoses to determine whether or not the patient would be appropriate for discharge versus admission. The patient was provided serial reevaluations and cardiac monitoring while awaiting ultimate disposition. On multiple subsequent reassessments, the patient is eating and drinking fine and is alert, oriented, in no acute distress with reassuring vital signs on cardiac telemetry. She is feeling fine with no concerns or complaints. Fingerstick blood close remained stable, increasing from the low 100s to 160s after she ate and drink. Ultimately at this time, I do feel that she is appropriate for discharge home. I feel the hypoglycemia was transient in the setting of insulin misuse at home, so I did provide instructions and education on insulin use. We also asked care management to evaluate the patient and see if she would benefit from home health to help manage her medications. Given reassuring workup and exam, it is felt that the patient is appropriate for discharge at this 1000. Total ED observation time was 1 hour 45 minutes. Patient is given strict return precautions as well as instructions for close outpatient follow-up. Ultimately, patient and family did not feel comfortable with discharge. I had multiple conversations with them advising them that I would recommend stopping her nighttime long acting insulin dose, As her hypoglycemia is always overnight/in the morning. I advised that they keep a close eye on her blood sugar and give the mother instructions for supportive management, but they still do not feel comfortable with discharge. I had case management come see them to set her up with home health and they also can help arrange possible [facility] facility admission, but family still does not feel comfortable with discharge home. I then had an interactive discussion with Dr. Chang who graciously came and evaluated the patient and gave further recommendations for managing blood glucose. After speaking with both of us, the family now feels comfortable going home with a new plan for managing her blood sugar. Strict return precautions were given and the patient was discharged after all questions were answered Critical Care Critical Care Time Critical Care Time: No
[2023-12-23 07:28] LABS: VBG Base Excess 5.9 mmol/L (-2.4-2.3); VBG HCO3 31.9 mmol/L (23-30); VBG Oxygen Saturation 45.5 % (50-70); VBG PH 7.33 mmol/L (7.31-7.41); VBG Total CO2 33.8 mmol/L (23-27)
[2023-12-23 07:28] LABS: Alanine Aminotransferase 23 U/L (12-78); Albumin Level 3.8 g/dl (3.5-5.0); Albumin/Globulin Ratio 0.9 (1.1-1.8); Alkaline Phosphatase 126 U/L (38-126); Anion Gap 7.4 mEq/L (5-15); Aspartate Amino Transferase 37 U/L (14-36); Bilirubin,Total 0.6 mg/dl (0.2-1.3); Blood Urea Nitrogen 46 mg/dl (7-17); Calcium 8.9 mg/dl (8.4-10.2); Carbon Dioxide 37 mmol/L (22.0-30.0); Chloride 102 mmol/L (98-107); Creatinine Clearance Estimated 39 mL/min (50-200); Estimated Glomerular Filt Rate 42 ml/min (>60); GFR (African American) 50 ML/MIN (>60); Globulin 4.2 g/dL (1.3-3.2); Glucose 74 mg/dl (74-100); Potassium 4.4 mmoL/L (3.5-5.1); Sodium 142 mmol/L (136-145)
[2023-12-23] MEDS: IPRATROPIUM/ALBUTEROL 3 ML NEB IH (07:29)
[2023-12-23 07:31] LABS: VBG PCO2 62.6 mmol/L (35-51)
--- NOTE | 2023-12-23 07:31 | PC.NURSE ---
aware of VBG results.
--- NOTE | 2023-12-23 07:35 | PC.NURSE ---
breakfast tray set-up for pt. call light within reach
[2023-12-23 07:44] LABS: Procalcitonin 0.129 ng/mL (0.0-2.0)
[2023-12-23 08:38] LABS: Microscopic, Urine URINE MICROSCOPIC (MICROSCOPIC)
[2023-12-23 08:54] LABS: Appearance,Urine CLEAR (Clear); Bilirubin,Urine Negative (Negative); Blood, Urine 1+ (Negative); Color,Urine YELLOW (Yellow); Glucose,Urine (UA) 1+ (Negative); Ketones,Urine Negative (Negative); Leukocyte Esterase,Urine Negative (Negative); Nitrate,Urine Negative (Negative); Protein,Urine 2+ (Negative); Urobilinogen,Urine 0.2 EU/dl (0.2)
[2023-12-23 09:07] LABS: WBC,Urine Occasional #/hpf (0-3)
--- NOTE | 2023-12-23 09:08 | PC.NURSE ---
blood glucose is 166 at this check
--- NOTE | 2023-12-23 09:29 | PC.NURSE ---
DR TAN AT BEDSIDE TO REEVALUATE PT
--- NOTE | 2023-12-23 09:33 | PC.NURSE ---
SPOKE WITH PT'S BROTHER, WILL BRING PT'S HOME O2 FOR DISCHARGE
--- NOTE | 2023-12-23 09:54 | PC.NURSE ---
RISSA WITH CARE MANAGEMENT NOTIFIED
[2023-12-23 11:29] LABS: HIV (1&2) Antibody Rapid NONREACTIVE (NONREACTIVE)
--- NOTE | 2023-12-23 12:01 | CARE MANAGER ---
Addendum entered by Sharla Somers 12/27/23 12:43: Per patient's brother they do have a meeting w/ Yana at [facility] tomorrow 12/27. Addendum entered by Sharla Somers 12/27/23 09:48: I have attempted to contact this patient/family regarding additional questions that Yana w/ [facility] and Lulu w/ [facility] have at this time. No answer and VM not set up. Addendum entered by Sharla Somers 12/26/23 12:12: Giovanna w/ [facility] is not able to accept patient due to no LTC bed available. I am currently waiting to hear back from [place] and [facility]. I did call and speak w/ patient's brother regarding other facilities: they are open to information being faxed to [facility] and [facility]. I will fax information today. Gustabo fleming/ [facility] stated that patient has been accepted and services will start Wednesday 12/27. Original Note: Met with patient and family to discuss discharge planning. Patient apparently has to [facility] recently and has used her Medicare days for SNF. She is interested in a LTC bed using her Medicaid. Patient Choice signed for [facility], [facility] and [facility]. Referral packet faxed to all three facilities. [facility] also signed for services, will be faxed to [facility] and [facility] for services to be provided in the interim.
--- NOTE | 2023-12-23 12:05 | PC.NURSE ---
DR ERICKSON AT BEDSIDE
--- NOTE | 2023-12-23 12:19 | P.CONS_ITS ---
History of Present Illness *Admission Date: 12/23/23 *Reason for visit:: low blood sugar *History of present illness: Ms. Bartlett is a 63-year-old female with complex past medical history including debility, hypertension, hyperlipidemia, insulin-dependent diabetes, COPD, chronic hypoxemic respiratory failure, renal insufficiency, ANNIE, A-fib, CHF, recurrent C. difficile. She presented with an episode of hypoglycemia today. Recently discharged from rehab and has been living with her brother and his fianc?e for the past week. She is on higher insulin doses than she was on when she initially went to the facility. She has been having low blood sugars in the morning. Currently taking Lantus 35 units twice daily. Her brother states that her glucose is good through the day and she takes short acting sliding scale. She has been having low sugars in the morning however. This morning she was found to have some altered mental status and had a fingerstick glucose of 29. He put some sugar in her gums and saw slight improvement. EMS was called and they brought her in for evaluation to the ER. Received D10 in the ambulance. On arrival, glucose was 80. Patient alert and more oriented. States she hurts all over, this is not a new symptom for her. Maintained blood glucose in the ER and was tolerating p.o. intake. Medicine was consulted for evaluation and consideration for medication adjustment versus admission. On evaluation, patient appears at her baseline level of function. I have seen her many times before. Reviewed labs, kidney function and electrolytes are relatively normal for her. Glucose remaining above 100. Tolerating p.o. intake. States she is having loose stools however she is continuing to take stool softeners. On baseline oxygen. Afebrile. No nausea or vomiting. Case management saw patient prior to my evaluation, they are assisting with placement for long-term care. Discussed assisting from the outpatient setting, patient and brother are comfortable with this plan. [facility] Disclaimer: The information contained in this section may have been updated after the patient was seen, as this information can be updated by other users. Medical History Acute on chronic diastolic (congestive) heart failure Lumbar compression fracture RAGHAV (acute kidney injury) C. difficile colitis Cough Hyperkalemia Chronic respiratory failure with hypoxia COPD mixed type Elevated liver enzymes Paroxysmal atrial fibrillation Acute on chronic heart failure with preserved ejection fraction (HFpEF) Suicidal ideation Depression with suicidal ideation Abnormality of lung on CXR Pneumonia Acute and chronic respiratory failure with hypoxia Chest pain Abnormal ankle brachial index (DAVE) Pyelonephritis Restless leg syndrome Hepatitis B Depression Anxiety Chronic kidney disease Sleep apnea Migraine History of transient ischemic attack (TIA) History of hip fracture History of gastroesophageal reflux (GERD) Diabetes mellitus, type 2 Hyperlipidemia Congestive heart failure Nonspecific chest pain Hip fracture Failure to thrive Closed femur fracture Instability of left knee joint Left knee pain Vaginal pain Abnormal computed tomography angiography (CTA) of abdomen and pelvis Claudication Decreased pedal pulses Other specified symptoms and signs involving the circulatory and respiratory systems Acquired hammer toes of both feet Chronic deep vein thrombosis (DVT) of right lower extremity Primary osteoarthritis of both feet Overweight (BMI 25.0-29.9) Acute worsening of stage 3 chronic kidney disease Diabetes mellitus with neuropathy Left leg swelling Lymphedema Plantar fasciitis, left Foot pain, left Obesity (BMI 30.0-34.9) Sepsis Community acquired pneumonia Osteoarthritis of feet, bilateral Diabetic peripheral neuropathy associated with type 2 diabetes mellitus Onychoincurvatum Hepatitis C Chest pain Normal coronary arteries Foot pain, right COPD (chronic obstructive pulmonary disease) DVT (deep venous thrombosis) Cellulitis of right foot Hep B w/o coma Hep C w/o coma, chronic Endothelial dysfunction of coronary artery Elevated left ventricular end-diastolic pressure (LVEDP) Cauda equina syndrome ANNIE on CPAP Langerhan's cell histiocytosis SOB (shortness of breath) on exertion Atrial fibrillation HTN (hypertension) PAD (peripheral artery disease) Abdominal pain Diabetes mellitus Renal insufficiency Acute exacerbation of chronic obstructive airways disease Neck Pain Back pain Surgical History History of cholecystectomy History of appendectomy History of hysterectomy History of cardiac cath Family History Other Coronary artery disease Family history of diabetes mellitus type II Family history of hyperlipidemia Family history of hypertension Social History Smoking Status: Never smoker second hand exposure: Yes alcohol intake: never counseling provided: none substance use type: denies use current occupational status: retired Travel in the last 8 weeks: None household members: none housing: house lives independently: Yes marital status: education level: middle school current occupational exposures/hazards: No caffeine: Yes special ping needs: No agree to transfusion: No do you feel safe at home: Yes victim of physical abuse: No victim of emotional abuse: No victim of sexual abuse: No would you like helpful sources: No Review of Systems Review of Systems Review of systems (narrative): 14 point review of systems performed, pertinent positives and negatives as per HPI Exam Data for Last 24 hours Vital signs and Labs for Last 24 Hours: Temp Pulse Resp BP Pulse Ox O2 Del Method O2 Flow Rate 97.9 F 77 20 153/73 H 97 Nasal Cannula 2 12/23/23 07:10 12/23/23 09:30 12/23/23 07:10 12/23/23 09:30 12/23/23 09:30 12/23/23 09:30 12/23/23 09:30 Laboratory Results - last 24 hr 12/23/23 07:05: WBC 9.7, RBC 4.33, Hgb 11.1 L, Hct 35.4 L, MCV 81.8, MCH 25.7 L, MCHC 31.4 L, RDW 16.8, Plt Count 350, MPV 7.2 L, Neut % (Auto) 68.3, Lymph % (Auto) 20.1, Graves % (Auto) 8.5, Eos % (Auto) 2.3, Baso % (Auto) 0.7, Neut # (Auto) 6.6, Lymph # (Auto) 2.0, Graves # (Auto) 0.8, Eos # (Auto) 0.2, Baso # (Auto) 0.1, Sodium 142, Potassium 4.4, Chloride 102, Carbon Dioxide 37 H, Anion Gap 7.4, BUN 46 H, Creatinine 1.30 H, Estimated Creat Clear 39, Estimated GFR 42 L, Est GFR ( Amer) 50 L, Glucose 74, Calcium 8.9, Total Bilirubin 0.6, A ST 37 H, ALT 23, Alkaline Phosphatase 126, Total Protein 8.0 D, Albumin 3.8, G lobulin 4.2 H, Albumin/Globulin Ratio 0.9 L, Procalcitonin 0.129, HIV 1&2 Antibody Rapid Nonreactive 12/23/23 07:16: VBG pH 7.33, VBG pCO2 62.6 H, VBG pO2 29.0, VBG HCO3 31.9 H, VBG Total CO2 33.8 H, VBG O2 Saturation 45.5 L, VBG Base Excess 5.9 H, VBG Lactic Acid 2.0 12/23/23 08:30: Urine Color Yellow, Urine Appearance Clear, Urine pH 6.0, Ur Specific Bernice 1.020, Urine Protein 2+ A, Urine Glucose (UA) 1+, Urine Ketones Negative, Urine Blood 1+ A, Urine Nitrate Negative, Urine Bilirubin Negative, Urine Urobilinogen 0.2, Ur Leukocyte Esterase Negative, Urine RBC 3-5, Urine WBC Occasional, Ur Squamous Epith Cells 3-5, Urine Bacteria None I & O for Last 24 hours: Intake & Output 12/20/23 12/21/23 12/22/23 12/23/23 23:59 23:59 23:59 23:59 Weight 113.398 kg Constitutional Constitutional: no acute distress, average body habitus, chronically ill appearing and disheveled *Routine HEENT Exam Head: Present normocephalic Eye: Present EOMI and PERRL ENT: Present mucous membranes moist *Routine Neck Exam Neck: Present supple; Absent lymphadenopathy *Routine Respiratory Exam Respiratory: Present prolonged expiratory phase, wheezes and normal respiratory effort; Absent rhonchi or crackles *Routine Cardiovascular Exam Cardiovascular: Present RRR *Routine Abdominal Exam Abdominal: Present soft, normoactive bowel sounds and tenderness (Mild, diffuse, nonfocal) *Routine Rectal Exam Visual: Present normal rectal tone *Routine Exam Patient deferred: external exam *Routine Extremities Exam Extremities: Absent cyanosis, clubbing or edema Routine Back/Spine/Pelvis Exam Comments: Tender over L-spine *Routine Skin Exam Skin: Present intact and warm; Absent rash Comments: Senile purpura; no breakdown in sacral region *Routine Neurological Exam Neurological: Present alert, oriented X3 and moving all extremities; Absent altered mental status Routine Psychiatric Exam Psychiatric: Present depressed and anxious Meds Home Medications and Allergies Home Medications ?Medication ?Instructions ?Recorded ?Confirmed ?Type apixaban 5 mg tablet (Eliquis) 5 mg PO BID Blood Thinner 09/06/22 12/01/23 History metformin 500 mg tablet 1,000 mg (2 x 500 mg) PO BID 02/17/23 12/01/23 Rx Diabetes 90 days #360 tabs sertraline 100 mg tablet 150 mg PO DAILY 05/28/23 12/01/23 History fluticasone fur. 100 mcg-umeclid 1 inh inhalation DAILY 30 days #1 05/30/23 12/01/23 Rx 62.5 mcg-vilant 25 mcg ea inhalat.powder (Trelegy Ellipta) metoprolol tartrate 25 mg tablet 12.5 mg (1/2 x 25 mg) PO BID 30 05/30/23 12/01/23 Rx days #30 tabs bumetanide 2 mg tablet 2 mg PO DAILY 08/23/23 12/01/23 History insulin lispro 100 unit/mL 1 sliding scale dose SQ 08/23/23 12/01/23 History subcutaneous pen (Admelog SoloStar USEASDIRECTD U-100 Insulin lispro) atorvastatin 10 mg tablet 10 mg PO HS 09/03/23 12/01/23 History isosorbide mononitrate 30 mg 30 mg PO DAILY 09/03/23 12/01/23 History tablet,extended release 24 hr ipratropium 0.5 mg-albuterol 3 mg 3 ml inhalation Q6HP PRN SHORTNESS 09/04/23 12/01/23 History (2.5 mg base)/3 mL nebulization OF BREATH/WHEEZING soln calcium polycarbophil 625 mg 1,250 mg (2 x 625 mg) PO BID 30 09/06/23 12/01/23 Rx tablet (FiberCon) days #120 tabs gabapentin 300 mg capsule 300 mg PO TID 30 days #90 caps 09/06/23 12/01/23 Rx oxycodone-acetaminophen 7.5 mg-325 1 tab PO QID 3 days #12 tabs 09/06/23 12/01/23 Rx mg tablet dapagliflozin propanediol 10 mg 10 mg PO DAILY #90 tabs 09/07/23 12/01/23 Rx tablet (Farxiga) acetaminophen 500 mg tablet 500 mg PO TID PRN Pain 09/16/23 12/01/23 History insulin glargine 100 unit/mL 12 unit SQ BID 09/16/23 12/01/23 History subcutaneous solution lidocaine 5 % topical patch 1 patch topical DAILY 09/16/23 12/01/23 History (Lidoderm) quetiapine 50 mg tablet 50 mg PO DAILY 09/16/23 12/01/23 History famotidine 20 mg tablet See Rx Instructions .Route 10/18/23 12/01/23 Rx .COMPLEX #60 tabs buspirone 5 mg tablet See Rx Instructions .Route 11/22/23 12/01/23 Rx .COMPLEX #60 tabs guaifenesin 600 mg tablet, mg PO 12/01/23 12/01/23 History extended release 12 hr (Mucus Relief ER) insulin glargine-yfgn 100 unit/mL unit SQ 12/01/23 12/01/23 History (3 mL) subcutaneous pen insulin glargine-yfgn 100 unit/mL unit SQ 12/01/23 12/01/23 History subcutaneous solution naloxegol 25 mg tablet (Movantik) 25 mg PO DAILY #30 tabs 12/01/23 12/01/23 Rx omeprazole 20 mg capsule,delayed 20 mg PO 12/01/23 12/01/23 History release pen needle,diabetic dual safty 30 #100 ea 12/01/23 12/01/23 History gauge x 3/16 (BD AutoShield Duo Pen Needle) polyethylene glycol 3350 17 17 g PO 12/01/23 12/01/23 History gram/dose oral powder (ClearLax) zinc oxide 20 % topical ointment topical 12/01/23 12/01/23 History New Prescriptions to Start Prescriptions: Allergies Allergy/AdvReac Type Severity Reaction Status Date / Time methocarbamol Allergy Severe Altered Verified 12/23/23 07:27 mental status terbutaline [TERBUTALINE] Allergy Severe SWELLS Verified 12/23/23 07:27 THROAT aspirin [ASPIRIN] Allergy Intermediate I-RASH Verified 12/23/23 07:27 codeine [CODEINE] Allergy Intermediate Swelling Verified 12/23/23 07:27 of the Eye diphenhydramine Allergy Intermediate Hives Verified 12/23/23 07:27 [From Benadryl] Sulfa (Sulfonamide Allergy Intermediate Hives Verified 12/23/23 07:27 Antibiotics) [SULFA (SULFONAMIDE ANTIBIOTICS)] sulfamethoxazole Allergy Intermediate Hives Verified 12/23/23 07:27 [From Bactrim] trimethoprim [From Bactrim] Allergy Intermediate Hives Verified 12/23/23 07:27 naproxen [NAPROXEN] Allergy Mild itching Verified 12/23/23 07:27 tramadol [TRAMADOL] Allergy Mild Vomiting Verified 12/23/23 07:27 citalopram [CITALOPRAM] Allergy Unknown SKIN PEEL Verified 12/23/23 07:27 erythromycin base Allergy Unknown I-RASH Verified 12/23/23 07:27 [ERYTHROMYCIN BASE] Penicillins [PENICILLINS] Allergy Unknown I-RASH Verified 12/23/23 07:27 fluticasone Allergy Unknown Verified 12/23/23 07:27 [From Advair Diskus] allergy reaction salmeterol Allergy Unknown Verified 12/23/23 07:27 [From Advair Diskus] allergy reaction bupropion [BUPROPION] AdvReac Severe Hallucinati Verified 12/23/23 07:27 ng duloxetine [DULOXETINE] AdvReac Severe Hallucinati Verified 12/23/23 07:27 ng pregabalin [PREGABALIN] AdvReac Severe Hallucinati Verified 12/23/23 07:27 ng celecoxib [From CELEBREX] AdvReac Mild Vomiting Verified 12/23/23 07:27 Results Labs 12/23/23 07:05 12/23/23 07:05 Labs: Abnormal lab results 12/23/23 12/23/23 12/23/23 Range/Units 07:05 07:16 08:30 Hgb 11.1 L (12.2-16.2) g/dL Hct 35.4 L (37.0-47.0) % MCH 25.7 L (27.0-31.2) pg MCHC 31.4 L (31.8-35.4) g/dL MPV 7.2 L (7.4-10.4) fl VBG pCO2 62.6 H (35-51) mmol/L VBG HCO3 31.9 H (23-30) mmol/L VBG Total CO2 33.8 H (23-27) mmol/L VBG O2 Saturation 45.5 L (50-70) % VBG Base Excess 5.9 H (-2.4-2.3) mmol/L Carbon Dioxide 37 H (22.0-30.0) mmol/L BUN 46 H (7-17) mg/dl Creatinine 1.30 H (0.52-1.04) mg/dl Estimated GFR 42 L (>60) ml/min Est GFR ( Amer) 50 L (>60) ML/MIN AST 37 H (14-36) U/L Globulin 4.2 H (1.3-3.2) g/dL Albumin/Globulin Ratio 0.9 L (1.1-1.8) Urine Protein 2+ A (Negative) Urine Blood 1+ A (Negative) H & H 12/23/23 Range/Units 07:05 Hgb 11.1 L (12.2-16.2) g/dL Hct 35.4 L (37.0-47.0) % All other labs normal. Assessment and Plan *Assessment and plan (1) COPD (chronic obstructive pulmonary disease): Status: Acute Category: Medical Code(s): J44.9 - Chronic obstructive pulmonary disease, unspecified (2) Hypoglycemia: Status: Acute Category: Medical Code(s): E16.2 - Hypoglycemia, unspecified (3) Generalized abdominal pain: Status: Acute Category: Medical Code(s): R10.84 - Generalized abdominal pain (4) Acute on chronic heart failure with preserved ejection fraction (HFpEF): Status: Acute Category: Medical Code(s): I50.33 - Acute on chronic diastolic (congestive) heart failure (5) Chronic respiratory failure with hypoxia: Status: Acute Category: Medical Code(s): J96.11 - Chronic respiratory failure with hypoxia (6) Anxiety and depression: Status: Acute Category: Medical Code(s): F41.9 - Anxiety disorder, unspecified; F32.A - Depression, unspecified (7) Diabetes mellitus, type 2: Status: Acute Qualifiers: Diabetes mellitus complication detail: with polyneuropathy Diabetes mellitus complication status: with neurologic complications Diabetes mellitus residential insulin use: with supervisor intermediates use Qualified Code(s): E11.42 - Type 2 diabetes mellitus with diabetic polyneuropathy; Z79.4 - long-term (current) use of insulin Category: Medical Code(s): E11.9 - Type 2 diabetes mellitus without complications (8) HTN (hypertension): Status: Chronic Qualifiers: Hypertension type: essential hypertension Qualified Code(s): I10 - Essential (primary) hypertension Category: Medical Code(s): I10 - Essential (primary) hypertension (9) Tobacco use: Status: Acute Category: Social Hx Code(s): Z72.0 - Tobacco use (10) Debility: Status: Acute Category: Medical Code(s): R53.81 - Other malaise Plan Evaluated patient in the ER. She is at her baseline level of function. Blood sugar remained stable after dextrose infusion and is tolerating p.o. intake. Extensive discussion with patient and her brother about adjustments to medications. Recommend decreasing her insulin regimen and continuing long- acting in the morning only. Recommend 35 units once daily in the morning. If morning glucose between 80 and 100, would administer 30 units of Lantus. If below 80, hold until she eats and recheck. Continue with sliding scale short acting. Recommend continuing her other medications for her softener given her loose. Patient stable on her baseline oxygen of 2L. Discussed case management plan of continuing to assist with placement for long- term care. Patient and brother comfortable with discharging home and continuing that process from the home setting. Continues to require their assistance. Comfortable with goal of adjusting regimen as above. Reviewed labs. White count normal at 9.7. Hem hemoglobin at baseline at 11.1. Kidney function at baseline with BUN 46, creatinine 1.3. Electrolytes stable. A1c well-controlled at 6.4. This is the best it has been in over a year based on our records. Urine unremarkable with no signs of infection. Stable to discharge home with further management as an outpatient.
[2023-12-23 12:27] LABS: Hemoglobin A1C 6.4 % (4.0-6.0)
[2023-12-26 14:11] LABS: HCV Ab Reactive (Non Reactive)
== END 2023-12-23 12:53 | disposition home or self-care (01) ==
PROVIDERS: Internal Medicine Adolescent Medicine; Emergency Provider Emergency Medicine; PCP Internal Medicine
DX: J44.9 Chronic obstructive pulmonary disease, unspecified (principal); E16.2 Hypoglycemia, unspecified; R10.84 Generalized abdominal pain; I50.33 Acute on chronic diastolic (congestive) heart failure; J96.11 Chronic respiratory failure with hypoxia; F41.9 Anxiety disorder, unspecified; F32.A Depression, unspecified; E11.42 Type 2 diabetes mellitus with diabetic polyneuropathy; Z79.4 Long term (current) use of insulin; I10 Essential (primary) hypertension; Z72.0 Tobacco use; R53.81 Other malaise
CPT/HCPCS: 71045; 80053; 81001; 82803; 83036; 84145; 85025; 86803; 87086; 87389; 93005; 99284; J7620

== ENCOUNTER 2024-01-31 10:22 | Outpatient (CLI) | payer MEDICARE, MEDICAID, SELFPAY ==
[2024-01-31 11:07] LABS: Basophils # 0.1 K/mm3 (0-0.2); Eosinophils # 0.2 K/mm3 (0.0-0.4); Eosinophils % 1.3 % (0.1-12.0); Hematocrit 35.6 % (37.0-47.0); Hemoglobin 11.4 g/dL (12.2-16.2); Lymphocytes # 2.1 K/mm3 (0.7-4.5); Lymphocytes % 17.3 % (10-50); Mean Corpuscular HGB Conc 32.1 g/dL (31.8-35.4); Mean Corpuscular Hemoglobin 25.7 pg (27.0-31.2); Mean Platelet Volume 7.7 fl (7.4-10.4); Monocytes # 0.8 K/mm3 (0.1-1.0); Monocytes % 6.6 % (1.7-9.3); Neutrophils # 8.9 K/mm3 (1.8-7.8); Neutrophils % 73.8 % (37.0-80.0); Platelet Count 351 K/mm3 (142-424); Red Blood Count 4.45 M/mm3 (4.20-5.40); Red Cell Distribution Width 16.8 % (11.5-17.5)
[2024-01-31 11:19] LABS: Alanine Aminotransferase 23 U/L (12-78); Albumin Level 3.5 g/dl (3.5-5.0); Alkaline Phosphatase 134 U/L (38-126); Amylase 50 U/L (30-110); Anion Gap 16.8 mEq/L (5-15); Aspartate Amino Transferase 35 U/L (14-36); Bilirubin,Total 0.6 mg/dl (0.2-1.3); Calcium 8.2 mg/dl (8.4-10.2); Carbon Dioxide 26 mmol/L (22.0-30.0); Chloride 101 mmol/L (98-107); Estimated Glomerular Filt Rate 12 ml/min (>60); GFR (African American) 15 ML/MIN (>60); Globulin 3.4 g/dL (1.3-3.2); Glucose 248 mg/dl (74-100); Lipase 144 U/L (23-300); Potassium 3.8 mmoL/L (3.5-5.1); Sodium 140 mmol/L (136-145); Total Protein,Serum 6.9 g/dl (6.3-8.2)
[2024-01-31 11:34] LABS: Blood Urea Nitrogen 119 mg/dl (7-17)
== END 2024-01-31 23:59 | disposition home or self-care (01) ==
LOC: LAB.DROPOF 10:23
PROVIDERS: PCP Internal Medicine Adolescent Medicine; Visit Provider Internal Medicine Adolescent Medicine
DX: E11.9 Type 2 diabetes mellitus without complications (principal)
CPT/HCPCS: 80053; 82150; 83690; 85025

== ENCOUNTER 2024-01-31 12:29 | Emergency (ER) | payer MEDICARE, MEDICAID, SELFPAY ==
[2024-01-31] VITALS (7 sets, daily range): BP systolic 93–138; BP diastolic 54–79; PULSE 61–78; RESP 14–22; TEMP 36.5–36.7; O2SAT 92–99; BMI 30.4
--- NOTE | 2024-01-31 12:33 | ED_ITS ---
<Statement entered by Christie Ramos DO - 01/31/24 15:16> I was consulted by the ROMEO, and we discussed the complexity of the problems being addressed. I approved the treatment and management plan for this patient's care in the emergency department, thus performing a substantive portion of the medical decision making. Christie Ramos DO Discharge Plan Disposition Patient Disposition: Xfer Short-Term Hosp Condition: Fair Prescriptions Prescriptions: No Action bumetanide 2 mg tablet 2 mg PO DAILY insulin lispro [Admelog SoloStar U-100 Insulin] 100 unit/mL insulin pen 1 sliding scale dose SQ USEASDIRECTD metformin 500 mg tablet 1,000 mg PO BID 90 Days Qty: 360 2RF insulin glargine-yfgn 100 unit/mL solution SQ omeprazole 20 mg capsule,delayed release(DR/EC) 20 mg PO guaifenesin [Mucus Relief ER] 600 mg tablet extended release 12hr PO polyethylene glycol 3350 [ClearLax] 17 gram/dose powder 17 g PO insulin glargine-yfgn 100 unit/mL (3 mL) insulin pen SQ zinc oxide 20 % ointment topical (DME) BD AutoShield Duo Pen Needle 30 gauge x 3/16 needle See Rx Instructions .ROUTE .MEDSUPPLY Qty: 100 Rx Instructions: As directed Movantik 25 mg tablet 25 mg PO DAILY Qty: 30 5RF Rx Instructions: must be taken on empty stomach; no food 1 hr after or 2-3 hrs before dose dapagliflozin propanediol [Farxiga] 10 mg tablet 10 mg PO DAILY Qty: 90 0RF buspirone 5 mg tablet See Rx Instructions .ROUTE .COMPLEX Qty: 60 4RF Dose Instruction: TAKE TWO TABLETS BY MOUTH TWICE DAILY MAY CAUSE DROWSINESS Rx Instructions: TAKE TWO TABLETS BY MOUTH TWICE DAILY MAY CAUSE DROWSINESS gabapentin 300 mg capsule 300 mg PO TID 30 Days Qty: 90 2RF oxycodone-acetaminophen 7.5-325 mg tablet 1 tab PO QID 30 Days Qty: 120 0RF Patient Comments: 1 tab orally three times a day As Needed for Moderate Pain (Scale Score 5-6) levofloxacin 750 mg tablet 750 mg PO DAILY 5 Days Qty: 5 0RF Eliquis 5 mg tablet 5 mg PO BID Patient Comments: TAKE ONE TABLET BY MOUTH TWICE DAILY FOR BLOOD THINNER sertraline 100 mg tablet 150 mg PO DAILY Patient Comments: TAKE 1 AND 1/2 TABLET BY MOUTH EVERY DAY Trelegy Ellipta 100-62.5-25 mcg Blister With Device 1 inh inhalation DAILY 30 Days Qty: 1 0RF metoprolol tartrate 25 mg Tablet 12.5 mg PO BID 30 Days Qty: 30 0RF insulin glargine [Semglee U-100 Insulin] 100 unit/mL Solution 12 unit SQ BID lidocaine [Lidoderm] 5 % Adhesive Patch,Medicated 1 patch topical DAILY quetiapine 50 mg tablet 50 mg PO DAILY isosorbide mononitrate 30 mg tablet extended release 24 hr 30 mg PO DAILY Rx Instructions: TAKE ONE TABLET BY MOUTH EVERY DAY atorvastatin 10 mg tablet 10 mg PO HS Rx Instructions: TAKE ONE TABLET BY MOUTH EVERY DAY AT BEDTIME ipratropium-albuterol 0.5 mg-3 mg(2.5 mg base)/3 mL solution for nebulization 3 ml INHALATION Q6HP PRN (Reason: SHORTNESS OF BREATH/WHEEZING) Patient Comments: INHALE THE CONTENTS OF 1 VIAL VIA NEBULIZER EVERY 6 HOURS NEEDED FOR SHORTNESS OF BREATH OR WHEEZING calcium polycarbophil [FiberCon] 625 mg Tablet 1,250 mg PO BID 30 Days Qty: 120 0RF Referrals Follow up/Referrals: Provider,Referral, MD [Primary Care Provider] - See instructions Activity Restrictions/Add. Instructions Additional Instructions/Restrictions: To [facility] care of Dr. Gant Clinical Impressions Clinical Impression: Acute on chronic renal failure, Diarrhea, Urinary tract infectious disease Print Language Print Language: Malay Discharge ED Provider: Williams Phillips [facility] Adult HPI <AVNI Buck - Last Filed: 01/31/24 15:33> General Chief complaint: Weakness Stated complaint: abnormal labs Time Seen by Provider: 01/31/24 12:33 History of Present Illness HPI narrative: Patient presents for evaluation of abnormal lab results. Patient was sent from her longterm for abnormal blood chemistries. Reportedly she had a BUN greater than 100 however no contacts was provided directly to me. On arrival patient actually states that she has had 4 days of watery frequent stool but denies abdominal pain fever chills hemoptysis hematochezia melena hematemesis. Patient is mentating appropriately and denies any other complaint including dysuria. Related Data Home Medications ?Medication ?Instructions ?Recorded ?Confirmed apixaban 5 mg tablet (Eliquis) 5 mg PO BID Blood Thinner 09/06/22 01/03/24 sertraline 100 mg tablet 150 mg PO DAILY 05/28/23 01/03/24 bumetanide 2 mg tablet 2 mg PO DAILY 08/23/23 01/03/24 insulin lispro 100 unit/mL 1 sliding scale dose SQ 08/23/23 01/03/24 [facility]ulin lispro) atorvastatin 10 mg tablet 10 mg PO HS 09/03/23 01/03/24 isosorbide mononitrate 30 mg 30 mg PO DAILY 09/03/23 01/03/24 tablet,extended release 24 hr ipratropium 0.5 mg-albuterol 3 mg 3 ml inhalation Q6HP PRN SHORTNESS 09/04/23 01/03/24 (2.5 mg base)/3 mL nebulization OF BREATH/WHEEZING soln insulin glargine 100 unit/mL 12 unit SQ BID 09/16/23 01/03/24 subcutaneous solution lidocaine 5 % topical patch 1 patch topical DAILY 09/16/23 01/03/24 (Lidoderm) quetiapine 50 mg tablet 50 mg PO DAILY 09/16/23 01/03/24 guaifenesin 600 mg tablet, mg PO 12/01/23 01/03/24 extended release 12 hr (Mucus Relief ER) insulin glargine-yfgn 100 unit/mL unit SQ 12/01/23 01/03/24 (3 mL) subcutaneous pen insulin glargine-yfgn 100 unit/mL unit SQ 12/01/23 01/03/24 subcutaneous solution omeprazole 20 mg capsule,delayed 20 mg PO 12/01/23 01/03/24 release pen needle,diabetic dual safty 30 #100 ea 12/01/23 01/03/24 gauge x 3/16 (BD AutoShield Duo Pen Needle) polyethylene glycol 3350 17 17 g PO 12/01/23 01/03/24 gram/dose oral powder (ClearLax) zinc oxide 20 % topical ointment topical 12/01/23 01/03/24 Previous Rx's ?Medication ?Instructions ?Recorded metformin 500 mg tablet 1,000 mg (2 x 500 mg) PO BID 02/17/23 Diabetes 90 days #360 tabs fluticasone fur. 100 mcg-umeclid 1 inh inhalation DAILY 30 days #1 05/30/23 62.5 mcg-vilant 25 mcg ea inhalat.powder (Trelegy Ellipta) metoprolol tartrate 25 mg tablet 12.5 mg (1/2 x 25 mg) PO BID 30 05/30/23 days #30 tabs calcium polycarbophil 625 mg 1,250 mg (2 x 625 mg) PO BID 30 09/06/23 tablet (FiberCon) days #120 tabs dapagliflozin propanediol 10 mg 10 mg PO DAILY #90 tabs 09/07/23 tablet (Farxiga) buspirone 5 mg tablet See Rx Instructions .Route 11/22/23 .COMPLEX #60 tabs naloxegol 25 mg tablet (Movantik) 25 mg PO DAILY #30 tabs 12/01/23 gabapentin 300 mg capsule 300 mg PO TID 30 days #90 caps 12/29/23 oxycodone-acetaminophen 7.5 mg-325 1 tab PO QID 30 days #120 tabs 12/29/23 mg tablet levofloxacin 750 mg tablet 750 mg PO DAILY 5 days #5 tabs 01/24/24 Allergies Allergy/AdvReac Type Severity Reaction Status Date / Time methocarbamol Allergy Severe Altered Verified 12/23/23 07:27 mental status terbutaline (TERBUTALINE) Allergy Severe SWELLS Verified 12/23/23 07:27 THROAT aspirin (ASPIRIN) Allergy Intermediate I-RASH Verified 12/23/23 07:27 codeine (CODEINE) Allergy Intermediate Swelling Verified 12/23/23 07:27 of the Eye diphenhydramine (From Allergy Intermediate Hives Verified 12/23/23 07:27 Benadryl) Sulfa (Sulfonamide Allergy Intermediate Hives Verified 12/23/23 07:27 Antibiotics) (SULFA (SULFONAMIDE ANTIBIOTICS)) sulfamethoxazole (From Allergy Intermediate Hives Verified 12/23/23 07:27 Bactrim) trimethoprim (From Bactrim) Allergy Intermediate Hives Verified 12/23/23 07:27 naproxen (NAPROXEN) Allergy Mild itching Verified 12/23/23 07:27 tramadol (TRAMADOL) Allergy Mild Vomiting Verified 12/23/23 07:27 citalopram (CITALOPRAM) Allergy Unknown SKIN PEEL Verified 12/23/23 07:27 erythromycin base Allergy Unknown I-RASH Verified 12/23/23 07:27 (ERYTHROMYCIN BASE) Penicillins (PENICILLINS) Allergy Unknown I-RASH Verified 12/23/23 07:27 fluticasone (From Advair Allergy Unknown Verified 12/23/23 07:27 Diskus) allergy reaction salmeterol (From Advair Allergy Unknown Verified 12/23/23 07:27 Diskus) allergy reaction bupropion (BUPROPION) AdvReac Severe Hallucinati Verified 12/23/23 07:27 ng duloxetine (DULOXETINE) AdvReac Severe Hallucinati Verified 12/23/23 07:27 ng pregabalin (PREGABALIN) AdvReac Severe Hallucinati Verified 12/23/23 07:27 ng celecoxib (From CELEBREX) AdvReac Mild Vomiting Verified 12/23/23 07:27 [facility] <AVNI Buck - Last Filed: 01/31/24 15:33> [facility] Disclaimer: The information contained in this section may have been updated after the patient was seen, as this information can be updated by other users. Medical History (Updated 01/31/24 @ 15:10 by AVNI Buck) Community acquired pneumonia Acute on chronic diastolic (congestive) heart failure Lumbar compression fracture RAGHAV (acute kidney injury) C. difficile colitis Cough Hyperkalemia Chronic respiratory failure with hypoxia COPD mixed type Elevated liver enzymes Paroxysmal atrial fibrillation Acute on chronic heart failure with preserved ejection fraction (HFpEF) Suicidal ideation Depression with suicidal ideation Abnormality of lung on CXR Pneumonia Acute and chronic respiratory failure with hypoxia Chest pain Abnormal ankle brachial index (DAVE) Pyelonephritis Restless leg syndrome Hepatitis B Depression Anxiety Chronic kidney disease Sleep apnea Migraine History of transient ischemic attack (TIA) History of hip fracture History of gastroesophageal reflux (GERD) Diabetes mellitus, type 2 Hyperlipidemia Congestive heart failure Nonspecific chest pain Hip fracture Failure to thrive Closed femur fracture Instability of left knee joint Left knee pain Vaginal pain Abnormal computed tomography angiography (CTA) of abdomen and pelvis Claudication Decreased pedal pulses Other specified symptoms and signs involving the circulatory and respiratory systems Acquired hammer toes of both feet Chronic deep vein thrombosis (DVT) of right lower extremity Primary osteoarthritis of both feet Overweight (BMI 25.0-29.9) Acute worsening of stage 3 chronic kidney disease Diabetes mellitus with neuropathy Left leg swelling Lymphedema Plantar fasciitis, left Foot pain, left Obesity (BMI 30.0-34.9) Sepsis Osteoarthritis of feet, bilateral Diabetic peripheral neuropathy associated with type 2 diabetes mellitus Onychoincurvatum Hepatitis C Chest pain Normal coronary arteries Foot pain, right COPD (chronic obstructive pulmonary disease) DVT (deep venous thrombosis) Cellulitis of right foot Hep B w/o coma Hep C w/o coma, chronic Endothelial dysfunction of coronary artery Elevated left ventricular end-diastolic pressure (LVEDP) Cauda equina syndrome ANNIE on CPAP Langerhan's cell histiocytosis SOB (shortness of breath) on exertion Atrial fibrillation HTN (hypertension) PAD (peripheral artery disease) Abdominal pain Diabetes mellitus Renal insufficiency Acute exacerbation of chronic obstructive airways disease Neck Pain Back pain Surgical History History of cholecystectomy History of appendectomy History of hysterectomy History of cardiac cath Family History Other Coronary artery disease Family history of diabetes mellitus type II Family history of hyperlipidemia Family history of hypertension Social History Smoking Status: Current some day smoker tobacco type: cigarettes packs per day: 2 second hand exposure: Yes alcohol intake: never counseling provided: none substance use type: denies use current occupational status: retired Travel in the last 8 weeks: None household members: none housing: house lives independently: Yes marital status: education level: middle school current occupational exposures/hazards: No caffeine: Yes special ping needs: No agree to transfusion: No do you feel safe at home: Yes victim of physical abuse: No victim of emotional abuse: No victim of sexual abuse: No would you like helpful sources: No Have you lived/traveled outside [place] in past 30 days?: No Contact w/someone who lives/traveled outside [place] past 30 days?: No Exposure to someone with infectious disease in past 14 days?: No Do you have a fever (greater than 100.4 F or 38 C)?: No Have you tested positive for COVID-19: No Exposed to someone with COVID-19 in past 14 days?: No Do you have a sore throat?: No Do you have a cough?: No Do you have any weakness?: No Do you have any diarrhea?: No Are you experiencing any unusual bleeding?: No Do you have any muscle aches/pain?: No Do you have any abdominal pain?: No Are you experiencing loss of taste or smell?: No Other Medical History Have you received the Flu Vaccine for this season: Yes Have you received the Pneumonia Vaccine: Yes <AVNI Buck - Last Filed: 01/31/24 15:33> ROS Obtained: Yes Systems reviewed as appropriate & no additional complaints except as documented Physical Exam <AVNI Buck - Last Filed: 01/31/24 15:33> General General appearance: alert and in no apparent distress Respiratory Respiratory exam: Present normal lung sounds bilaterally Cardiovascular Cardiovascular exam: Present regular rate Neurological Exam Neurological exam: Present alert and oriented X3 Psychiatric Psychiatric exam: Present normal affect Medical Decision Making <AVNI Buck - Last Filed: 01/31/24 15:33> Medical Records Medical records reviewed: Yes I reviewed the patient's medical records. Screening: Per USPSTF and CDC recommendations, given the prevalence of disease in our region, it is our hospital?s policy to screen for HIV and viral Hepatitis for all patients aged 18 and over and those with ongoing risk factors. Jordin Inquiry Pt receiving controlled substance: No Vital Signs: 01/31/24 12:31 01/31/24 13:00 01/31/24 14:00 Temperature 97.7 F Temperature Source Oral Pulse Rate 61 68 Pulse Rate [Right] 78 Respiratory Rate 22 16 20 Blood Pressure 117/71 114/54 L Blood Pressure [Right Arm] 116/78 Blood Pressure Mean [Right Arm] 90 Blood Pressure Source [Right Arm] Automatic Cuff 02 Sat by Pulse Oximetry 95 99 99 Oxygen Delivery Method Nasal Cannula Room Air Nasal Cannula Oxygen Flow Rate (LPM) 3 01/31/24 14:30 Temperature Temperature Source Pulse Rate 62 Pulse Rate [Right] Respiratory Rate 14 Blood Pressure 93/68 L Blood Pressure [Right Arm] Blood Pressure Mean [Right Arm] Blood Pressure Source [Right Arm] 02 Sat by Pulse Oximetry 97 Oxygen Delivery Method Nasal Cannula Oxygen Flow Rate (LPM) 3 Lab Data Lab results reviewed: Yes I reviewed the patient's lab results. Lab Results 01/31/24 12:40: WBC 12.5 H, RBC 4.73, Hgb 12.1 L, Hct 37.4, MCV 79.0 L, MCH 25.5 L, MCHC 32.3, RDW 16.8, Plt Count 393, MPV 8.0, Neut % (Auto) 74.3, Lymph % (Auto) 17.4, [place] % (Auto) 6.3, Eos % (Auto) 1.2, Baso % (Auto) 0.9, Neut # (Auto) 9.3 H, Lymph # (Auto) 2.2, [place] # (Auto) 0.8, Eos # (Auto) 0.2, Baso # (Auto) 0.1, Sodium 140, Potassium 3.8, Chloride 100, Carbon Dioxide 27, Anion Gap 16.8 H, BUN 122 H*, Creatinine 3.60 H, Estimated Creat Clear 21, Estimated GFR 13 L*, Est GFR ( Amer) 16 L*, Glucose 251 H, Calcium 8.3 L, P hosphorus 5.4 H, Magnesium 1.7, Total Bilirubin 0.6, AST 42 H, ALT 26, Alkaline Phosphatase 135 H, Total Protein 7.2, Albumin 3.7, Globulin 3.5 H, Albumin/Globulin Ratio 1.1, Procalcitonin 0.252 01/31/24 12:50: VBG pH 7.25 L, VBG pCO2 54.1 H, VBG pO2 31.6, VBG HCO3 23.3, VBG Total CO2 25.0, VBG O2 Saturation 58.9, VBG Base Excess -3.9 L, VBG Lactic Acid 3.0 H 01/31/24 13:08: Urine Color Yellow, Urine Appearance Clear, Urine pH 5.5, Ur Specific [place] 1.025, Urine Protein 1+ A, Urine Glucose (UA) 2+, Urine Ketones Negative, Urine Blood Trace-i, Urine Nitrate Negative, Urine Bilirubin Negative, Urine Urobilinogen 0.2, Ur Leukocyte Esterase 1+ A, Urine RBC Occasional, Urine WBC 20-50, Ur Squamous Epith Cells Occasional, Urine Bacteria 3+ 01/31/24 12:40 01/31/24 12:40 Orders (Tests/Meds): ED MEDICATIONS Generic Name Dose Route Start Last Admin Trade Name Freq PRN Reason Stop Dose Admin Sodium Chloride 1,000 mls @ 250 mls/hr 01/31/24 12:33 01/31/24 13:02 Sod Chlor 0.9% 1000ml Bag IV 01/31/24 16:32 250 mls/hr .Q4H ONE Administration Ceftriaxone Sodium 1 gm/ 50 mls @ 100 mls/hr 01/31/24 14:45 01/31/24 14:46 Sodium Chloride IV 02/10/24 14:44 100 mls/hr Q24H CHRISTOPHER Administration Discontinued Medications Generic Name Dose Route Start Last Admin Trade Name Lauren PRN Reason Stop Dose Admin Ondansetron HCl 4 mg 01/31/24 12:39 01/31/24 13:03 Ondansetron 4mg/2ml Vial IV 01/31/24 12:40 4 mg ONCE ONE Administration ORDERS Category Date Time Status CT abdomen pelvis wo con Stat Cat Scan 01/31/24 12:37 Completed CBC w/Auto Diff [Complete Blood Count Auto Diff] Stat Lab 01/31/24 12:40 Completed CMP [Comprehensive Metabolic Panel] Stat Lab 01/31/24 12:40 Completed Diarrhea 23 Panel, PCR Stat Lab 01/31/24 12:37 Ordered Hep C Ab with Reflex to RNA Stat Lab 01/31/24 10:10 Received Magnesium Stat Lab 01/31/24 12:40 Completed Phosphorous Stat Lab 01/31/24 12:40 Completed Procalcitonin Stat Lab 01/31/24 12:40 Completed UA [Urinalysis and Microscopic] Stat Lab 01/31/24 13:08 Completed Urine Culture Stat Micro 01/31/24 13:08 Received VBG [Venous Blood Gas] Stat RT 01/31/24 12:50 Completed Medical Decision Narrative: In summary patient is a 63-year-old female who presents to the emergency department for evaluation of normal lab results initially and diarrhea after evaluation. Patient is hemodynamically stable upon arrival, afebrile. Sickle exam we reveals a well-nourished well-developed 63-year-old female who does not appear to be in acute distress. Mucous membranes are moist. Abdominal exam is benign with normal bowel sounds without rebound or guarding or rigidity. Differential diagnosis includes acute on chronic kidney injury, therapeutic misadventure, urinary tract infection, colitis, infectious diarrhea versus noninfectious diarrhea etc. Initial workup will be conducted with hematologic labs urinalysis stool culture if patient is able to provide [address] scan of the abdomen pelvis without contrast. Initial interventions include slow crystalloid bolus as patient has heart failure and is oxygen dependent. Initial workup reviewed by me shows that her white count is 12.5 with a left shift, patient has a venous pH of 7.25 with a pCO2 of 54 and a VBG lactic acid of 3.0 chemistry shows a gap of 16.8 with BUN of 122 a creatinine of 3.6 and a GFR of 13 and urinalysis shows 1+ protein 2+ glucose negative ketones trace blood nitrite negative leukocyte Estrace positive with microscopic exam shows occasional red blood cells 20-50 white cells and 3+ bacteria on that cath specimen. CT scan abdomen pelvis via my informal interpretation does not show any acute processes but does show a left renal mass that is apparently known. Given this I had interact discussion with hospital medicine here regarding patient management and is felt that due to the patient's comorbidities and the severity of her kidney injury that she would benefit from nephrology evaluation. Given that I had a interactive discussion with hospital medicine at [facility] Dr. Gant regarding patient management and she will be transferred for further evaluation and care. <Christie Ramos, DO - Last Filed: 01/31/24 13:27> Vital Signs: 01/31/24 12:31 01/31/24 13:00 01/31/24 14:00 Temperature 97.7 F Temperature Source Oral Pulse Rate 61 68 Pulse Rate [Right] 78 Respiratory Rate 22 16 20 Blood Pressure 117/71 114/54 L Blood Pressure [Right Arm] 116/78 Blood Pressure Mean [Right Arm] 90 Blood Pressure Source [Right Arm] Automatic Cuff 02 Sat by Pulse Oximetry 95 99 99 Oxygen Delivery Method Nasal Cannula Room Air Nasal Cannula Oxygen Flow Rate (LPM) 3 01/31/24 14:30 Temperature Temperature Source Pulse Rate 62 Pulse Rate [Right] Respiratory Rate 14 Blood Pressure 93/68 L Blood Pressure [Right Arm] Blood Pressure Mean [Right Arm] Blood Pressure Source [Right Arm] 02 Sat by Pulse Oximetry 97 Oxygen Delivery Method Nasal Cannula Oxygen Flow Rate (LPM) 3 Lab Data Lab Results 01/31/24 12:40: WBC 12.5 H, RBC 4.73, Hgb 12.1 L, Hct 37.4, MCV 79.0 L, MCH 25.5 L, MCHC 32.3, RDW 16.8, Plt Count 393, MPV 8.0, Neut % (Auto) 74.3, Lymph % (Auto) 17.4, [place] % (Auto) 6.3, Eos % (Auto) 1.2, Baso % (Auto) 0.9, Neut # (Auto) 9.3 H, Lymph # (Auto) 2.2, [place] # (Auto) 0.8, Eos # (Auto) 0.2, Baso # (Auto) 0.1, Sodium 140, Potassium 3.8, Chloride 100, Carbon Dioxide 27, Anion Gap 16.8 H, BUN 122 H*, Creatinine 3.60 H, Estimated Creat Clear 21, Estimated GFR 13 L*, Est GFR ( Amer) 16 L*, Glucose 251 H, Calcium 8.3 L, P hosphorus 5.4 H, Magnesium 1.7, Total Bilirubin 0.6, AST 42 H, ALT 26, Alkaline Phosphatase 135 H, Total Protein 7.2, Albumin 3.7, Globulin 3.5 H, Albumin/Globulin Ratio 1.1, Procalcitonin 0.252 01/31/24 12:50: VBG pH 7.25 L, VBG pCO2 54.1 H, VBG pO2 31.6, VBG HCO3 23.3, VBG Total CO2 25.0, VBG O2 Saturation 58.9, VBG Base Excess -3.9 L, VBG Lactic Acid 3.0 H 01/31/24 13:08: Urine Color Yellow, Urine Appearance Clear, Urine pH 5.5, Ur Specific [place] 1.025, Urine Protein 1+ A, Urine Glucose (UA) 2+, Urine Ketones Negative, Urine Blood Trace-i, Urine Nitrate Negative, Urine Bilirubin Negative, Urine Urobilinogen 0.2, Ur Leukocyte Esterase 1+ A, Urine RBC Occasional, Urine WBC 20-50, Ur Squamous Epith Cells Occasional, Urine Bacteria 3+ Orders (Tests/Meds): ED MEDICATIONS Generic Name Dose Route Start Last Admin Trade Name Freq PRN Reason Stop Dose Admin Sodium Chloride 1,000 mls @ 250 mls/hr 01/31/24 12:33 01/31/24 13:02 Sod Chlor 0.9% 1000ml Bag IV 01/31/24 16:32 250 mls/hr .Q4H ONE Administration Ceftriaxone Sodium 1 gm/ 50 mls @ 100 mls/hr 01/31/24 14:45 01/31/24 14:46 Sodium Chloride IV 02/10/24 14:44 100 mls/hr Q24H CHRISTOPHER Administration Discontinued Medications Generic Name Dose Route Start Last Admin Trade Name Lauren PRN Reason Stop Dose Admin Ondansetron HCl 4 mg 01/31/24 12:39 01/31/24 13:03 Ondansetron 4mg/2ml Vial IV 01/31/24 12:40 4 mg ONCE ONE Administration ORDERS Category Date Time Status CT abdomen pelvis wo con Stat Cat Scan 01/31/24 12:37 Completed CBC w/Auto Diff [Complete Blood Count Auto Diff] Stat Lab 01/31/24 12:40 Completed CMP [Comprehensive Metabolic Panel] Stat Lab 01/31/24 12:40 Completed Diarrhea 23 Panel, PCR Stat Lab 01/31/24 12:37 Ordered Hep C Ab with Reflex to RNA Stat Lab 01/31/24 10:10 Received Magnesium Stat Lab 01/31/24 12:40 Completed Phosphorous Stat Lab 01/31/24 12:40 Completed Procalcitonin Stat Lab 01/31/24 12:40 Completed UA [Urinalysis and Microscopic] Stat Lab 01/31/24 13:08 Completed Urine Culture Stat Micro 01/31/24 13:08 Received VBG [Venous Blood Gas] Stat RT 01/31/24 12:50 Completed ECG Data Tracing #1: I reviewed this ECG and interpreted as documented below: Normal sinus rhythm with a ventricular rate of [address] changes concerning for ischemia. Normal axis and intervals. ECG initial impression date: 01/31/24 ECG initial impression time: 12:45 Critical Care <AVNI Buck - Last Filed: 01/31/24 15:33> Critical Care Time Critical Care Time: No
--- NOTE | 2024-01-31 12:37 | CT_ITS ---
FINAL REPORT TECHNIQUE: Axial images through the abdomen and pelvis were performed without contrast.This study was performed with techniques to keep radiation doses as low as reasonably achievable, (ALARA). Individualized dose reduction techniques using automated exposure control or adjustment of mA and/or kV according to the patient's size were employed. CLINICAL HISTORY: acute abd pain COMPARISON: 09/03/2023 FINDINGS: ABDOMEN: The lung bases are clear. The heart size is normal. Limited images of the liver are unremarkable. Status postcholecystectomy. There is a questionable tiny common bile duct stone seen on image 34 measuring 3 mm. This could also represent pancreatic parenchymal calcification. The spleen is normal. No adrenal mass is identified. The aorta is normal in caliber. There is no significant free fluid or adenopathy. Known left renal mass is poorly visualized due to lack of contrast. Noncontrast exam does not allow accurate measurement of renal mass. There is no nephrolithiasis. There is no hydronephrosis. There is mild diverticular disease of the colon. There has been interval kyphoplasty at L2. There has been progression of the inferior endplate compression fracture at T12 and compression fracture of L4. PELVIS: The appendix is not identified. Pelvic bowel loops are unremarkable. Patient is status post hysterectomy. The urinary bladder is unremarkable. There is no significant free fluid or adenopathy. IMPRESSION: 1. Known left renal mass poorly assessed on noncontrast exam. For further assessment and size surveillance recommend contrast-enhanced exam. 2. Interval progression of lumbar osteoporotic fractures. Reviewed, Interpreted and Dictated by Marcia Luque MD Transcribed by Milagros López Authenticated and [facility]
--- NOTE | 2024-01-31 12:43 | ECG_ITS ---
APPROVED REPORT Exam: Resting ECG HR:65 bpm ECG Measurements Heart Rate 65 AXES IA 170 P 64 QRSd 77 QRS 7 QT 411 T 58 QTc 423 Conclusion SINUS RHYTHM NORMAL ECG Electronically signed by : KAYLI TAN, 01/31/2024 15:30:54
[2024-01-31 12:46] LABS: Basophils # 0.1 K/mm3 (0-0.2); Basophils % 0.9 % (0.1-2.0); Eosinophils # 0.2 K/mm3 (0.0-0.4); Eosinophils % 1.2 % (0.1-12.0); Hematocrit 37.4 % (37.0-47.0); Hemoglobin 12.1 g/dL (12.2-16.2); Lymphocytes # 2.2 K/mm3 (0.7-4.5); Lymphocytes % 17.4 % (10-50); Mean Corpuscular HGB Conc 32.3 g/dL (31.8-35.4); Mean Corpuscular Hemoglobin 25.5 pg (27.0-31.2); Monocytes # 0.8 K/mm3 (0.1-1.0); Monocytes % 6.3 % (1.7-9.3); Neutrophils # 9.3 K/mm3 (1.8-7.8); Neutrophils % 74.3 % (37.0-80.0); Platelet Count 393 K/mm3 (142-424); Red Blood Count 4.73 M/mm3 (4.20-5.40); Red Cell Distribution Width 16.8 % (11.5-17.5); White Blood Count 12.5 K/mm3 (4.8-10.8)
[2024-01-31 12:57] LABS: VBG Base Excess -3.9 mmol/L (-2.4-2.3); VBG HCO3 23.3 mmol/L (23-30); VBG Oxygen Saturation 58.9 % (50-70); VBG PH 7.25 mmol/L (7.31-7.41); VBG PO2 31.6 mmol/L (28-40)
[2024-01-31 13:02] LABS: Alanine Aminotransferase 26 U/L (12-78); Albumin Level 3.7 g/dl (3.5-5.0); Albumin/Globulin Ratio 1.1 (1.1-1.8); Alkaline Phosphatase 135 U/L (38-126); Anion Gap 16.8 mEq/L (5-15); Aspartate Amino Transferase 42 U/L (14-36); Bilirubin,Total 0.6 mg/dl (0.2-1.3); Calcium 8.3 mg/dl (8.4-10.2); Carbon Dioxide 27 mmol/L (22.0-30.0); Chloride 100 mmol/L (98-107); Creatinine Clearance Estimated 21 mL/min (50-200); Estimated Glomerular Filt Rate 13 ml/min (>60); GFR (African American) 16 ML/MIN (>60); Globulin 3.5 g/dL (1.3-3.2); Glucose 251 mg/dl (74-100); Magnesium 1.7 mg/dl (1.6-2.3); Phosphorous 5.4 mg/dl (2.5-4.5); Potassium 3.8 mmoL/L (3.5-5.1); Sodium 140 mmol/L (136-145); Total Protein,Serum 7.2 g/dl (6.3-8.2)
[2024-01-31] MEDS: 0.9 % SODIUM CHLORIDE 1000ML 1,000 ML 250 ML IV (13:02)
[2024-01-31] MEDS: ONDANSETRON 4MG/2ML VIAL 4 MG IV (13:03)
[2024-01-31 13:18] LABS: Procalcitonin 0.252 ng/mL (0.0-2.0)
[2024-01-31 13:18] LABS: Microscopic, Urine URINE MICROSCOPIC (MICROSCOPIC)
[2024-01-31 13:23] LABS: Appearance,Urine CLEAR (Clear); Bilirubin,Urine Negative (Negative); Blood, Urine TRACE-I (Negative); Color,Urine YELLOW (Yellow); Glucose,Urine (UA) 2+ (Negative); Ketones,Urine Negative (Negative); Leukocyte Esterase,Urine 1+ (Negative); Nitrate,Urine Negative (Negative); PH,Urine 5.5 (5.0-8.5); Protein,Urine 1+ (Negative); Specific Gravity, Urine 1.025 (1.005-1.030); Urobilinogen,Urine 0.2 EU/dl (0.2)
--- NOTE | 2024-01-31 13:30 | PC.NURSE ---
Patient back from radiology
--- NOTE | 2024-01-31 13:33 | PC.NURSE ---
Patient given ice chips at her request.
[2024-01-31 13:38] LABS: Blood Urea Nitrogen 122 mg/dl (7-17)
[2024-01-31 13:54] LABS: Bacteria,Urine 3+ /lpf; RBC,Urine Occasional #/hpf (0-3); Squamous Epithelial Cell,Urine Occasional #/hpf (0-5); WBC,Urine 20-50 #/hpf (0-3)
--- NOTE | 2024-01-31 14:03 | PC.NURSE ---
adjusted pt head of bed and pillow no other needs at this time call light in reach
[2024-01-31 14:32] LABS: VBG PCO2 54.1 mmol/L (35-51)
--- NOTE | 2024-01-31 14:32 | PC.NURSE ---
Don aware of vbg results
[2024-01-31] MEDS: CEFTRIAXONE 1 GM 1 GM in 0.9 % SODIUM CHLORIDE 50 ML IV (14:46)
--- NOTE | 2024-01-31 14:50 | PC.NURSE ---
CALLED [facility] TRANSFER [place] TO START PROCESS OF TRANSFER TO [facility] FOR POSS DIALYSIS, WAITING FOR MD FROM [facility] TO CALL BACK AND SPEAK WITH OUR PA ALLYSON REYES
--- NOTE | 2024-01-31 14:50 | PC.NURSE ---
Calling [facility] transfer center for possible transfer
--- NOTE | 2024-01-31 14:51 | PC.NURSE ---
rounded on pt, updated on POC and possible transfer to [facility]
--- NOTE | 2024-01-31 15:00 | PC.NURSE ---
AVNI SONG SPEAKING WITH MD AT [facility] AT THIS TIME
--- NOTE | 2024-01-31 15:36 | PC.NURSE ---
Updated [facility] on the transfer to [facility].
--- NOTE | 2024-01-31 16:17 | PC.NURSE ---
Gave report to Chelo KINCAID @ [facility] Med/Surg floor. Also updated POC with pt and transfer to [facility] to her brother, Hemant Bartlett
[2024-01-31] MEDS: SODIUM CHLORIDE 0.9% 25ML BAG 25 ML IV (16:42)
[2024-01-31] MEDS: PROMETHAZINE HCL 25MG/ML 1ML VIAL 12.5 MG IV (16:42)
[2024-01-31 17:00] LABS: Reflex Lactic Add Lactic Reflex
[2024-02-02 21:07] LABS: HCV Ab Reactive (Non Reactive)
--- NOTE | 2024-02-03 10:27 | PC.NURSE ---
spoke with russell Ortiz, faxed urine culture results [phone]
== END 2024-01-31 17:01 | disposition short-term general hospital (02) ==
PROVIDERS: Physician Assistant; Emergency Provider Emergency Medicine
DX: N17.9 Acute kidney failure, unspecified (principal); N39.0 Urinary tract infection, site not specified; R19.7 Diarrhea, unspecified
CPT/HCPCS: 74176; 80053; 81001; 82150; 82803; 83690; 83735; 84100; 84145; 85025; 86803; 87086; 87088; 87186; 93005; 96361; 96374; 96375; 99284; J0696; J2405; J2550; J7030

== ENCOUNTER 2024-02-13 23:19 | Outpatient (CLI) | payer MEDICARE, MEDICAID, SELFPAY ==
[2024-02-13 23:31] LABS: Basophils # 0.1 K/mm3 (0-0.2); Basophils % 0.5 % (0.1-2.0); Eosinophils # 0.1 K/mm3 (0.0-0.4); Eosinophils % 1.1 % (0.1-12.0); Hematocrit 31.5 % (37.0-47.0); Hemoglobin 9.3 g/dL (12.2-16.2); Lymphocytes # 3.1 K/mm3 (0.7-4.5); Lymphocytes % 26.3 % (10-50); Mean Corpuscular HGB Conc 29.5 g/dL (31.8-35.4); Mean Corpuscular Hemoglobin 24.9 pg (27.0-31.2); Mean Corpuscular Volume 84.5 fl (81-99); Mean Platelet Volume 9.8 fl (7.4-10.4); Monocytes # 0.9 K/mm3 (0.1-1.0); Monocytes % 7.5 % (1.7-9.3); Neutrophils # 7.5 K/mm3 (1.8-7.8); Neutrophils % 63.8 % (37.0-80.0); Platelet Count 249 K/mm3 (142-424); Red Blood Count 3.73 M/mm3 (4.20-5.40); Red Cell Distribution Width 16.6 % (11.5-17.5); White Blood Count 11.8 K/mm3 (4.8-10.8)
== END 2024-02-13 23:59 | disposition home or self-care (01) ==
LOC: LAB.DROPOF 23:22
PROVIDERS: PCP Internal Medicine Adolescent Medicine; Visit Provider Internal Medicine Adolescent Medicine
DX: J44.9 Chronic obstructive pulmonary disease, unspecified (principal); F17.210 Nicotine dependence, cigarettes, uncomplicated
CPT/HCPCS: 85025

== ENCOUNTER 2024-05-23 03:15 | Emergency (ER) | payer MEDICARE, MEDICAID, SELFPAY ==
[2024-05-23 03:20] VITALS: BP 107/61; PULSE 59; RESP 22; TEMP 36.8; O2SAT 94; BMI 28.3
--- NOTE | 2024-05-23 03:22 | ECG_ITS ---
APPROVED REPORT Exam: Resting ECG HR:62 bpm ECG Measurements Heart Rate 62 AXES WI 175 P 56 QRSd 69 QRS -21 QT 392 T 15 QTc 397 Conclusion SINUS RHYTHM LOW QRS VOLTAGE IN PRECORDIAL LEADS [QRS DEFLECTION < 1.0 mV IN CHEST LEADS] No STEMI Electronically signed by : ANU JUAN, 05/23/2024 06:23:13
--- NOTE | 2024-05-23 03:22 | CT_ITS ---
PROCEDURE INFORMATION: Exam: CT Pelvis Without Contrast, Skeleton Exam date and time: 05/23/2024 3:47 AM Age: 64 years old Clinical indication: Injury or trauma; Fall; Additional info: Fall shortening and rotation lle TECHNIQUE: Imaging protocol: Computed tomography of the pelvis without contrast. Exam focused on the skeleton. Radiation optimization: All CT scans at this facility use at least one of these dose optimization techniques: automated exposure control; mA and/or kV adjustment per patient size (includes targeted exams where dose is matched to clinical indication); or iterative reconstruction. COMPARISON: CT ABDOMEN PELVIS WO CON 01/31/2024 1:26 PM FINDINGS: Bones/joints: Mildly comminuted fracture in the intertrochanteric left femur. Intact fixation hardware in the right femur. Vertebroplasty cement at L5. Soft tissues: Unremarkable. IMPRESSION: Mildly comminuted fracture in the intertrochanteric left femur.
--- NOTE | 2024-05-23 03:22 | CT_ITS ---
PROCEDURE INFORMATION: Exam: CT Head Without Contrast Exam date and time: 05/23/2024 3:40 AM Age: 64 years old Clinical indication: Injury or trauma; Fall; Additional info: Fall thinners TECHNIQUE: Imaging protocol: Computed tomography of the head without contrast. Radiation optimization: All CT scans at this facility use at least one of these dose optimization techniques: automated exposure control; mA and/or kV adjustment per patient size (includes targeted exams where dose is matched to clinical indication); or iterative reconstruction. COMPARISON: CT HEAD/BRAIN WO CON 05/29/2023 11:26 PM FINDINGS: Brain: Normal. No hemorrhage. Unremarkable white matter. No mass effect. Moderate cerebral and cerebellar atrophy. Cerebral ventricles: No ventriculomegaly. Paranasal sinuses: Visualized sinuses are unremarkable. No fluid levels. Mastoid air cells: Visualized mastoid air cells are well aerated. Bones: Unremarkable. No acute fracture. Soft tissues: Unremarkable. IMPRESSION: 1. No acute intracranial abnormality. 2. Age related cortical atrophy.
--- NOTE | 2024-05-23 03:22 | CT_ITS ---
PROCEDURE INFORMATION: Exam: CT Cervical Spine Without Contrast Exam date and time: 05/23/2024 3:43 AM Age: 64 years old Clinical indication: Injury or trauma; Fall; Additional info: Fall thinners TECHNIQUE: Imaging protocol: Computed tomography of the cervical spine without contrast. Radiation optimization: All CT scans at this facility use at least one of these dose optimization techniques: automated exposure control; mA and/or kV adjustment per patient size (includes targeted exams where dose is matched to clinical indication); or iterative reconstruction. COMPARISON: CT CERVICAL SPINE WO CON 12/01/2019 11:30 PM FINDINGS: Bones: No acute fracture. Normal alignment. No significant disc bulge or herniation. No severe spinal canal stenosis. No significant neural foraminal narrowing. Lungs: Lung apices are normal. Soft tissues: Unremarkable. IMPRESSION: No acute findings.
--- NOTE | 2024-05-23 03:22 | XR_ITS ---
PROCEDURE INFORMATION: Exam: XR Chest Exam date and time: 05/23/2024 3:30 AM Age: 64 years old Clinical indication: Injury or trauma; Fall TECHNIQUE: Imaging protocol: Radiologic exam of the chest. Views: 1 view. COMPARISON: CR XR CHEST PORTABLE 12/23/2023 7:32 AM FINDINGS: Tubes, catheters and devices: Loop recorder. Lungs: Chronic interstitial opacities and parenchymal scarring bilaterally. Pleural spaces: Unremarkable. No pleural effusion. No pneumothorax. Heart/Mediastinum: Unremarkable. No cardiomegaly. Vasculature: Aortic calcification. Bones/joints: Unremarkable. IMPRESSION: No acute disease.
--- NOTE | 2024-05-23 03:23 | XR_ITS ---
PROCEDURE INFORMATION: Exam: XR Pelvis Exam date and time: 05/23/2024 3:30 AM Age: 64 years old Clinical indication: Injury or trauma; Fall; Additional info: Fall shortening rotation lle TECHNIQUE: Imaging protocol: Radiologic exam of the pelvis. Views: 1 or 2 view. COMPARISON: CT ABDOMEN PELVIS WO CON 01/31/2024 1:26 PM FINDINGS: Bones/joints: Mildly comminuted fracture of the intertrochanteric left femur. Intact fixation hardware in the right femur. Vertebroplasty cement at L5. Soft tissues: Unremarkable. IMPRESSION: Mildly comminuted fracture of the intertrochanteric left femur.
[2024-05-23 03:28] LABS: Basophils # 0.1 K/mm3 (0-0.2); Basophils % 0.3 % (0.1-2.0); Eosinophils % 0.2 % (0.1-12.0); Hematocrit 37.6 % (37.0-47.0); Hemoglobin 11.6 g/dL (12.2-16.2); Mean Corpuscular HGB Conc 30.9 g/dL (31.8-35.4); Mean Corpuscular Hemoglobin 25.6 pg (27.0-31.2); Monocytes # 1.5 K/mm3 (0.1-1.0); Monocytes % 8.1 % (1.7-9.3); Neutrophils % 58.8 % (37.0-80.0); Platelet Count 242 K/mm3 (142-424); Red Blood Count 4.53 M/mm3 (4.20-5.40); Red Cell Distribution Width 17.6 % (11.5-17.5); White Blood Count 18.7 K/mm3 (4.8-10.8)
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
--- NOTE | 2024-05-23 03:31 | XR_ITS ---
PROCEDURE INFORMATION: Exam: XR Left Elbow Trauma Exam date and time: 05/23/2024 3:50 AM Age: 64 years old Clinical indication: Injury or trauma; Fall TECHNIQUE: Imaging protocol: Radiologic exam of the left elbow. Views: 1 or 2 views, Trauma COMPARISON: CR XR ELBOW LT 2V 05/29/2023 11:27 PM FINDINGS: Bones/joints: Normal. No acute fracture. No dislocation. Soft tissues: Normal. No abnormal calcifications. IMPRESSION: No acute findings.
[2024-05-23 03:33] LABS: MANUAL DIFFERENTIAL MANUAL DIFFERENTIAL (MANUAL DIFF)
--- NOTE | 2024-05-23 03:34 | PC.NURSE ---
Pt in CT via stretcher
[2024-05-23 03:39] LABS: INR 1.06 (0.9-1.1); Prothrombin Time 11.8 seconds (10.1-12.5)
[2024-05-23 03:45] LABS: Alanine Aminotransferase 27 U/L (12-78); Albumin Level 3.6 g/dl (3.5-5.0); Alkaline Phosphatase 144 U/L (38-126); Anion Gap 16.3 mEq/L (5-15); Aspartate Amino Transferase 37 U/L (14-36); Bilirubin,Total 0.7 mg/dl (0.2-1.3); Calcium 9.1 mg/dl (8.4-10.2); Carbon Dioxide 27 mmol/L (22.0-30.0); Chloride 103 mmol/L (98-107); Creatinine Clearance Estimated 23 mL/min (50-200); Estimated Glomerular Filt Rate 16 ml/min (>60); GFR (African American) 19 ML/MIN (>60); Globulin 3.7 g/dL (1.3-3.2); Glucose 81 mg/dl (74-100); Potassium 5.3 mmoL/L (3.5-5.1); Sodium 141 mmol/L (136-145); Total Protein,Serum 7.3 g/dl (6.3-8.2)
[2024-05-23 03:47] LABS: Blood Urea Nitrogen 108 mg/dl (7-17)
--- NOTE | 2024-05-23 03:51 | PC.NURSE ---
Critical lab reported to Dr. Carreno at this time
--- NOTE | 2024-05-23 03:54 | PC.NURSE ---
Pt back from CT scan
[2024-05-23 03:56] VITALS: BP 113/55; PULSE 62; RESP 20; O2SAT 91
[2024-05-23 04:00] VITALS: BP 115/64; PULSE 64; O2SAT 94
--- NOTE | 2024-05-23 04:20 | PC.NURSE ---
[place] transfer center notified of request to transfer. They will call back
[2024-05-23] MEDS: MORPHINE 4MG/ML SYRINGE 4 MG IV (04:28)
[2024-05-23 04:30] VITALS: BP 120/65; PULSE 63; O2SAT 96
[2024-05-23 04:47] LABS: Eosinophils % 1 % (0-3); Lymphocytes % 39 % (10-50); Monocytes % 2 % (2-9); Neutrophils % 58 % (42-76); Total Cells Counted 100
[2024-05-23 04:48] LABS: Platelet Estimate Normal; Stomatocytes 1+
[2024-05-23] MEDS: HYDROMORPHONE 2MG/ML SYRINGE 0.25 MG IV (04:51)
[2024-05-23 05:00] VITALS: BP 114/58; PULSE 65; RESP 18; O2SAT 94
[2024-05-23 05:12] VITALS: BP 114/58; PULSE 74; RESP 20; TEMP 36.8; O2SAT 95
== END 2024-05-23 05:14 | disposition short-term general hospital (02) ==
PROVIDERS: Emergency Provider Emergency Medicine
DX: S72.142A Displaced intertrochanteric fracture of left femur, initial encounter for closed fracture (principal); M25.552 Pain in left hip; R20.2 Paresthesia of skin; M79.605 Pain in left leg; S50.312A Abrasion of left elbow, initial encounter; N18.9 Chronic kidney disease, unspecified; E87.5 Hyperkalemia; I10 Essential (primary) hypertension; J44.9 Chronic obstructive pulmonary disease, unspecified; E11.9 Type 2 diabetes mellitus without complications; Z79.01 Long term (current) use of anticoagulants; W01.0XXA Fall on same level from slipping, tripping and stumbling without subsequent striking against object, initial encounter; Y93.89 Activity, other specified; Y92.121 Bathroom in nursing home as the place of occurrence of the external cause; Z79.4 Long term (current) use of insulin
CPT/HCPCS: 51702; 70450; 71045; 72125; 72170; 72192; 73070; 80053; 85007; 85025; 85027; 85610; 93005; 96374; 96375; 99291; J1171; J2270

== ENCOUNTER 2024-06-22 07:47 | Outpatient (CLI) | payer MEDICARE, MEDICAID, SELFPAY ==
--- NOTE | 2024-06-22 08:00 | FL_ITS ---
FINAL REPORT CLINICAL HISTORY: dysphagia 59.0 dap 1.07 fluoro time FINDINGS: ESOPHAGRAM HISTORY: Abdominal pain, nausea. PROCEDURE: The patient ingested barium. Effervescent crystals were also administered. Spot and overhead films were obtained. FINDINGS: The esophagus demonstrates mild esophageal dysmotility. There is a small sliding-type hiatal hernia. There is gastroesophageal reflux to the mid esophagus. There is relative narrowing of the distal esophagus not allowing for passage of a 13 mm barium tabletl. IMPRESSION: 1. Sliding type hiatal hernia. 2. Mild gastroesophageal reflux. 3. Distal esophageal narrowing. Endoscopic correlation recommended. Fluoroscopy time: 1 minute 7 seconds Fluoro dose: 59 DAP in [employer] Reviewed, Interpreted and Dictated by Laura Mike MD Transcribed by AVNI Melo Authenticated and [facility]
[2024-06-22] MEDS: E-Z-GASII EFFERVESCENT GRANULES;1PK 1 EACH PO (08:18)
[2024-06-22] MEDS: BARIUM SULFATE (E-Z-HD 340GM);135ML BOTTLE 135 ML PO (08:18)
[2024-06-22] MEDS: BARIUM SULFATE(LIQUID E-Z-PAQUE);355ML BOTTLE 355 ML PO (08:18)
== END 2024-06-22 23:59 | disposition home or self-care (01) ==
LOC: RAD 07:49
PROVIDERS: PCP Internal Medicine Adolescent Medicine; Visit Provider Student in an Organized Health Care Education/Training Program
DX: K21.9 Gastro-esophageal reflux disease without esophagitis (principal); K44.9 Diaphragmatic hernia without obstruction or gangrene; K22.2 Esophageal obstruction
CPT/HCPCS: 74220

== ENCOUNTER 2024-07-23 16:35 | Outpatient (CLI) | payer MEDICARE, MEDICAID, SELFPAY ==
--- OUTSIDE RECORDS SUMMARY | 2024-05-23 06:14 | XMS_ITS | Encounter Summary ---
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 Hyperkalemia, CKD Rubné Martin MD [address] [facility] [address] [place] [address] Phone: tel: fax: [facility] [address] [place] [address] Phone: tel: Referral ID Status Reason Start Date Expiration Date Visits Re quested Visits Authorized [id number] 1 1 Encounter Details Date Type Department Care Team (Latest Contact Info) Description 05/23/2024 6:14 AM EDT - 06/01/2024 3:23 PM EDT Hospital Encounter [facility] [address] [place] [address] Chip White MD [address] [place] [address] Rubén Martin MD [address] [facility] [address] [place] [address] Alex Diaz MD [address] [place] [address] Ashli Whitaker MD [address] [facility] [address] [place] [address] Closed fracture of left hip, initial encounter ([facility]) (Primary Dx); COPD exacerbation ([facility]); Hyperkalemia; RAGHAV (acute kidney injury) ([facility]) Discharge Disposition: [facility] Social History Tobacco Use Types Packs/Day Years Used Date Smoking Tobacco: Every Day Cigarettes 1 50.4 Started: 1973 Passive Smoke Exposure: Current Smokeless Tobacco: Never Alcohol Use Standard Drinks/Week Comments Never 0 (1 standard drink = 0.6 oz pur e alcohol) Humiliation, Afraid, Rape, and Kick questionnair e Answer Date Recorded Within the last year, have y ou been afraid of your partner or ex-partner? No 05/24/2024 Within the last year, have y ou been humiliated or emotionally abused in other ways by your partner or ex-partner? No Within the last year, have y ou been kicked, hit, slapped, or otherwise physically hurt by your partner or ex-partner? No 05/24/2024 Within the last year, have y ou been raped or forced to have any kind of sexual activity by your partner or ex-partner? No 05/24/2024 Overall Financial Resource Strain (CARDIA) Answe r Date Recorded How hard is it for you to pa y for the very basics like food, housing, medical care, and heating? Not hard at all 05/24/2024 Hunger Vital Sign Answer Date Recorded Within the past 12 months, y ou worried that your food would run out before you got the money to buy more. Never true 05/25/19 25 Within the past 12 months, t he food you bought just didn't last and you didn't have money to get more. Never true 05/24/2024 PRAPARE - Transportation Answer Date Re corded In the past 12 months, has l ack of transportation kept you from medical appointments or from getting medications? No 05/15 In the past 12 months, has l ack of transportation kept you from meetings, work, or from getting things needed for daily living? No 05/24/2024 Housing Stability Vital Sign Answer Jose Carlos e Recorded In the last 12 months, was t here a time when you were not able to pay the mortgage or rent on time? No 05/24/2024 In the past 12 months, how m any times have you moved where you were living? 0 05/24/2024 At any time in the past 12 m [facility], were you homeless or living in a [facility] (including now)? No 05/24/2024 CAGE ASSESSMENT Answer Date Recorded Cage unable to access Not on file 09/26/2022 Cage max number of drinks Not on file 2022 Cage Beverages a week Not on file 09/26/2022 Have you ever felt you should CUT down on your d rinking? 0 09/26/2022 Have you been ANNOYED by people criticizing your drinking? 0 09/26/2022 Have you felt GUILTY about your drinking? 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 0 09/26/2022 CAGE Questionnaire Score 0 023 Utilities Answer Date Recorded In the past 12 months has th e electric, gas, oil, or water company threatened to shut off services in your home? No 05/24/2024 Comments Unknown Sex and Gender Information Value Date Recorded Sex Assigned at Not on file Legal Sex Female 7:35 PM EDT Gender Identity Not on file Sexual Orientation Not on file documented as of this encounter Last Filed Vital Signs Vital Sign Reading Time Taken Comments Blood Pressure 138/78 06/01/2024 12:08 PM EDT Pulse 66 06/01/2024 12:08 PM EDT Temperature 37.1 C (98.7 F) 06/01/2024 12:08 PM EDT Respiratory Rate 14 06/01/2024 3:15 AM EDT Oxygen Saturation 95% 06/01/2024 12:08 PM EDT Inhaled Oxygen Concentration - - Weight 75 kg (165 lb 5.5 oz) 05/26/2024 6:00 AM EDT Height 162.6 cm (5' 4.02 ) 05/24/2024 9:50 AM ED T Body Mass Index 28.37 05/24/2024 9:50 AM EDT documented in this encounter Functional Status * Calculated C-SSRS Risk Score (Lifetime/Recent) Answer Date of Assessment Author Moderate Risk 06/01/2024 8:00 AM EDT Umair Vieira RN * Question Answer Date of Assessment Author 1. Wish to be (Past 1 Month) No 025 8:00 AM EDT Velma Vieira RN 2. Non-Specific Active Suici akanksha Thoughts (Past 1 Month) No 06/01/2024 8:00 AM EDT Velma Vieira RN 6. Suicidal Behavior (Lifetime) Yes 8:00 AM EDT Velma Vieira RN documented as of this encounter Discharge Instructions * Discharge Instructions* Helena Sharma, GRIPS, DNP - 06/01/2024 1:18 PM EDT DVT Prophylaxis: Resume home Eliquis Procedures: 05/24: ORIF of L IT with CMN Incidental Findings: None Restrictions: WB: LLE weight-bearing as tolerated Orthopedic Wound Care: LLE: ARTUR wrap should be removed 72 hours following surgery, and then re-applied daily for swelling as needed taking care not to remove the sterile OR dressing underneath. If bandage becomes wet, soiled, or falls off it may be replaced with a clean dry gauze dressing as needed. May remove left knee bandages from traction pin sites 2-3 days after surgery; if dry, may then leave open to air or placeadditional dry dressing as needed. For medical questions or concerns after discharge, please contact the Orthopedic Transition Nurse at [phone] Tuesday through Tuesday 8:00 am to 2:30 pm. If you feel your concern is a medical emergency please call 911 immediately. Pain Medications: - You should take 650 mg Tylenol every 6 hours for mild - moderate pain. - You should take 500 mg methocarbamol 3 times per day for muscle spasms. - You have been prescribed pain medications to be taken as needed for severe pain. - You should take the stool softener prescribed as long as you are taking narcotics. - You may resume your previous medications unless otherwise instructed. Nutrition: - You may resume your normal diet as tolerated, focusing on liquids to keep yourself hydrated. Activity: - No driving while on narcotics Potential Issues: - It is normal to have some pain and soreness, especially around the incisions - A small amount of clear drainage from the incision may be expected, call the office if the drainage becomes bloody, purulent (pus), or foul-smelling - Call the office if you start to have increased redness, drainage, swelling, or increased pain around your incision - Call the office if you have a fever greater than 101 F - Call the office if you have severe abdominal discomfort, nausea and vomiting, or feeling unwell Follow up appointments: Follow up with PCP within one to two weeks after discharge for post hospitalization visit, to review incidental findings, and for management of chronic medications/conditions. Orthopedic surgery: Follow up on 06/12/2024 at 9:30AM with Bing Byers APRN @ [facility]; [facility], [address] [place] [address] First Floor, Wing C, [address], [place] [address], # [phone]. Follow up with trauma clinic as needed. [address] [place] [address] First Floor, [address] [place] [address], #[phone]. Questions or Concerns and Appointments: If there are questions or concerns after discharge from the hospital, please call [phone] and ask for [facility] Nurse. Working hours are Tuesday - Tuesday 8:00 AM to 4:00 PM. After hours, weekends and holidays please call [phone] and ask for the resident operations support manager for [facility]. For appointments please call [phone]. Medication requests should be made between the hours of 9:00 AM to 3:00 PM Tuesday thru Tuesday. Please note that based upon recent changes to [place] law related to prescribing opioid pain medications, our providers will not provide refills on controlled medications after your hospital discharge following a major surgery or trauma. [place] 201 KAR9:260. documented in this encounter Medications at Time of Discharge apixaban (Eliquis) 5 MG tablet Take 1 tablet by mouth in the morning and 1 tablet before bedtime. ARIPiprazole (Abilify) 10 MG tablet Take 1 tablet by mouth every morning. atorvastatin (Lipitor) 10 MG tablet Take 1 tablet by mouth daily. bumetanide (Bumex) 1 MG tablet Take 1 tablet by mouth every morning. busPIRone (Buspar) 10 MG tablet Take 1 tablet by mouth in the morning and 1 tablet before bedtime. dapagliflozin (Farxiga) 5 MG tablet Take 1 tablet by mouth daily. famotidine (Pepcid) 20 MG tablet Take 1 tablet by mouth in the morning and 1 tablet before bedtime. Fluticasone-Umecli din-Vilant (Trelegy Ellipta) 100-62.5-25 MCG/ACT aerosol powder Inhale 1 puff every morning. gabapentin (Neurontin) 300 MG capsule Take 1 capsule by mouth every 8 hours for 15 days. 45 capsule 5 guaiFENesin (Mucinex) 600 MG 12 hr tablet Take 2 tablets by mouth in the morning and 2 tablets before bedtime. Do not crush, chew, or split. insulin aspart (NovoLOG) 100 UNIT/ML injection pen Inject 6 Units under the skin 3 (three) times a day with meals. Plus sliding scale insulin glargine-yfgn 100 UNIT/ML injection vial Inject 14 Units under the skin 2 (two) times a day. 10 mL 5 ipratropium-albute rol (Duo-Neb) 0.5-2.5 mg/3 mL nebulizer solution Take 3 mL by nebulization every 6 (six) hours. 180 mL 5 isosorbide mononitrate ER (Imdur) 30 MG 24 hr tablet Take 1 tablet by mouth every morning. Do not crush or chew. methocarbamol (Robaxin) 500 MG tablet Take 1 tablet by mouth 3 (three) times a day for 15 days. 45 tablet 5 metoprolol tartrate 37.5 MG tablet Take 37.5 mg by mouth 2 (two) times a day. 60 tablet 5 naloxone (Narcan) 4 mg/0.1 mL nasal spray 1. Give 1 spray in nostril for no/slow breathing or cannot wake after opioid use 2. Call 911 3. Repeat in other nostril if symptoms continue 1 each 5 sertraline (Zoloft) 100 MG tablet Take 2 tablets by mouth daily. sodium zirconium cyclosilicate (Lokelma) 5 g packet Take 1 packet by mouth in the morning and 1 packet before bedtime. telmisartan (MIcarDIS) 20 MG tablet Take 1 tablet by mouth daily. traZODone (Desyrel) 50 MG tablet Take 0.5 tablets by mouth at night as needed for sleep. 15 tablet 5 acetaminophen (Tylenol) 325 MG tablet Take 2 tablets by mouth every 8 hours for 15 days. Under [place] law, monthly prescriptions (30 days) can be refilled at 25 days and three-month prescriptions (90 days) at 80 days. Please contact the insurance company with questions if refills are denied. 90 tablet 5 06/17/19 25 ergocalciferol (Vitamin D-2) 1.25 MG (23278 UT) capsule Take 1 capsule by mouth 1 (one) time per week. 4 capsule 5 07/07/19 25 melatonin tablet Take 1 tablet by mouth nightly. 30 tablet 5 07/02/19 25 oxyCODONE (Roxicodone) 5 MG immediate release tablet Take 1 tablet by mouth every 4 (four) hours as needed for severe pain for up to 3 days. 18 tablet 5 06/05/19 25 polyethylene glycol (Miralax) 17 g packet Take 17 g by mouth 2 (two) times a day. 60 packet 5 07/02/19 25 senna-docusate (Andreia-Colace) 8.6-50 MG tablet Take 2 tablets by mouth 2 (two) times a day. 120 tablet 5 05/18/20 25 documented as of this encounter Miscellaneous Notes * Sophie Walton RN - 06/01/2024 1:33 PM EDT Images from the original note were not included. [id number] Oxycodone Brand Name(s): Oxaydo??, Oxycontin??, Roxicodone??, Roxybond??, Xtampza?? ER, Combunox?? (as a combination product containing Ibuprofen, Oxycodone), Narvox?? (as a combination product containing Acetaminophen, Oxycodone), Oxycet?? (as a combination product containing Acetaminophen, Oxycodone), Percocet?? (as a combination product containing Acetaminophen, Oxycodone), Percodan?? (as a combination product containing Aspirin, Oxycodone), Roxicet?? (as a combination product containing Acetaminophen, Oxycodone), Roxilox?? (as a combination product containing Acetaminophen, Oxycodone), Roxiprin?? (as a combination product containing Aspirin, Oxycodone), Targiniq?? ER (as a combination product containing naloxone, oxycodone), Troxyca ER?? (as a combination product containing Naltrexone, Oxycodone), Tylox?? (as a combination product containing Acetaminophen, Oxycodone), Xartemis XR?? (as a combination product containing Acetaminophen, Oxycodone); also available generically IMPORTANT WARNING: Oxycodone may be habit-forming. Take oxycodone exactly as directed. Do not take more of it, take itmore often, or take it in a different way than directed by your doctor. While taking oxycodone, discuss with your healthcare provider your pain treatment goals, length of treatment, and other ways tomanage your pain. Tell your doctor if you or anyone in your family drinks or has ever drunk large amounts of alcohol, uses or has ever used street drugs, or has overused prescription medications, or has had an overdose, or if you have or have ever had depression or another mental illness. There is a greater risk that you will overuse oxycodone if you have or have ever had any of these conditions.Talk to your healthcare provider immediately and ask for guidance if you think that you have an opioid addiction or call the U.S. Substance Abuse and Mental Health Services Administration ([facility]) National Helpline at 9-281-267-PHCK. Oxycodone may cause serious or life-threatening breathing problems, especially during the first 24 to 72 hours of your treatment and any time your dose is increased. Your doctor will monitor you carefully during your treatment. Tell your doctor if you have or have ever had slowed breathing or asthma. Your doctor will probably tell you not to take oxycodone. Also tell your doctor if you have or have ever had lung disease such as chronic obstructive pulmonary disease (COPD; a group of diseases that affect the lungs and airways), a head injury a brain tumor, or any condition that increases the amount of pressure in your brain. The risk that you will develop breathing problems may be higher if you are an older adult or are weak or malnourished due to disease. If you experience any of the following symptoms, call your doctor immediately or get emergency medical treatment: slowed breathing, long pauses between breaths, or shortness of breath. Do not allow anyone else to take your medication. Oxycodone may harm or cause to other peoplewho take your medication, especially children. Keep oxycodone in a safe place so that no one else can take it accidentally or on purpose. Be especially careful to keep oxycodone out of the reach of children. Keep track of how many capsules, tablets, or oral solution is left so you will know if any medication is missing. Taking certain other medications with oxycodone may increase the risk of serious or life-threatening breathing problems, sedation, or coma. Tell your doctor and pharmacist what other prescription andnonprescription medications, vitamins, nutritional supplements, and herbal products you are taking or plan to take. Your doctor may need to change the doses of your medication and will monitor you carefully. If you take oxycodone with other medications and you develop any of the following symptoms,call your doctor immediately or seek emergency medical care: unusual dizziness, lightheadedness, extreme sleepiness, slowed or difficult breathing, or unresponsiveness. Be sure that your caregiver orfamily members know which symptoms may be serious so they can call the doctor or emergency medical care if you are unable to seek treatment on your own. Drinking alcohol, taking prescription or nonprescription medications that contain alcohol, or usingstreet drugs during your treatment with oxycodone increases the risk that you will experience serious, life-threatening side effects. Do not drink alcohol, take prescription or nonprescription medications that contain alcohol, or use street drugs during your treatment. If you are taking the oxycodone extended-release tablets, swallow them whole; do not chew, break, divide, crush, or dissolve them. Do not presoak, lick or otherwise wet the tablet prior to placing inthe mouth. Swallow each tablet right after you put it in your mouth. If you swallow broken, chewed,crushed, or dissolved extended-release tablets, you may receive too much oxycodone at once instead of slowly over 12 hours. This may cause serious problems, including overdose and . Oxycodone comes as a regular solution (liquid) and as a concentrated solution that contains more oxycodone in each milliliter of solution. Be sure that you know whether your doctor has prescribed theregular or concentrated solution and the dose in milliliters that your doctor has prescribed. Use the dosing cup, oral syringe, or dropper provided with your medication to carefully measure the number of milliliters of solution that your doctor prescribed. Read the directions that come with your medication carefully and ask your doctor or pharmacist if you have any questions about how to measure your dose or how much medication you should take. You may experience serious or life threatening side effects if you take an oxycodone solution with a different concentration or if you take a different amount of medication than prescribed by your doctor. Store oxycodone in a safe place so that no one else can take it accidentally or on purpose. Be especially careful to keep oxycodone out of the reach of children. Keep track of how many tablets or capsules, or how much liquid is left so you will know if any medication is missing. Dispose of unwantedcapsules, tablets, extended-release tablets, extended-release capsules, and liquid properly according to instructions. (See STORAGE and DISPOSAL). Tell your doctor if you are or plan to become . If you take oxycodone regularly during your , your baby may experience life- threatening withdrawal symptoms after . Tellyour baby's doctor right away if your baby experiences any of the following symptoms: irritability, hyperactivity, abnormal sleep, high-pitched cry, uncontrollable shaking of a part of the body, vomiting, diarrhea, or failure to gain weight. Talk to your doctor about the risks of taking oxycodone. Your doctor or pharmacist will give you the community living coach's patient information sheet (Medication Guide) when you begin your treatment with oxycodone and each time you fill your prescription. Read theinformation carefully and ask your doctor or pharmacist if you have any questions. You can also visit the Food and Drug Administration (FDA) website (https://www.fda.gov/Drugs/DrugSafety/gjc067330.htm) or the community living coach's website to obtain the Medication Guide. WHY is this medicine prescribed? Oxycodone immediate-release tablets, capsules, and oral solution are used to relieve severe, acute pain (pain that begins suddenly, has a specific cause, and is expected to go away when the cause of the pain is healed) in people who are expected to need an opioid pain medication and who cannot be treated with other pain medications. Oxycodone extended-release tablets and extended-release capsulesare used to relieve severe pain in people who are expected to need pain medication around the clockfor a long time and who cannot be treated with other medications. Oxycodone extended-release tablets and extended-release capsules should not be used to treat pain that can be controlled by medication that is taken as needed. Oxycodone concentrated solution should only be used to treat people who are tolerant (used to the effects of the medication) to opioid medications because they have taken this type of medication for at least one week. Oxycodone is in a class of medications called opiate (narcotic) analgesics. It works by changing the way the brain and nervous system respond to pain. Oxycodone is also available in combination with acetaminophen (Oxycet, Percocet, others) and aspirin (Percodan). This monograph only includes information about the use of oxycodone alone. If you are taking an oxycodone combination product, be sure to read information about all the ingredients in the product you are taking and ask your doctor or pharmacist for more information. HOW should this medicine be used? Oxycodone comes as a solution (liquid), a concentrated solution, a tablet, a capsule, an extended-release (long-acting) tablet (Oxycontin), and an extended- release capsule (Xtampza ER) to take by mouth. The solution, concentrated solution, tablet, and capsule are taken usually with or without food every 4 to 6 hours, either as needed for pain or as regularly scheduled medications. The extended-release tablets (Oxycontin) are taken every 12 hours with or without food. The extended-release capsules (Xtampza ER) are taken every 12 hours with food; eat the same amount of food with each dose. Follow the directions on your prescription label carefully, and ask your doctor or pharmacist to explainany part you do not understand. Take oxycodone exactly as directed. If you are taking the extended-release tablets (Oxycontin), swallow the tablets one at a time with plenty of water. Swallow the tablet or right after putting it in your mouth. Do not presoak, wet, orlick the tablets before you put them in your mouth. Do not chew or crush extended-release tablets. If you have trouble swallowing extended-release capsules (Xtampza ER), you can carefully open the capsule and sprinkle the contents on soft foods such as applesauce, pudding, yogurt, ice cream, or jam, then consume the mixture immediately. Dispose of the empty capsule shells right away by flushing them down a toilet. Do not store the mixture for future use. If you have a feeding tube, the extended-release capsule contents can be poured into the tube. Ask your doctor how you should take the medication and follow these directions carefully. Your doctor may adjust your dose of oxycodone during your treatment, depending on how well your pain is controlled and on the side effects that you experience. Talk to your doctor about how you are feeling during your treatment with oxycodone. Tell your doctor if you feel that your pain is not controlled or if your pain increases, becomes worse, or if you have new pain or an increased sensitivityto pain during your treatment with oxycodone. Do not take more of it or take it more often than prescribed by your doctor. Do not stop taking oxycodone without talking to your doctor. If you stop taking oxycodone suddenly,you may experience withdrawal symptoms such as restlessness, watery eyes, runny nose, sneezing, yawning, sweating, chills, muscle or joint aches or pains, weakness, irritability, anxiety, depression,difficulty falling asleep or staying asleep, cramps, nausea, vomiting, diarrhea, loss of appetite, fast heartbeat, and fast breathing. Your doctor will probably decrease your dose gradually. Are there OTHER USES for this medicine? This medication may be prescribed for other uses; ask your doctor or pharmacist for more information. What SPECIAL PRECAUTIONS should I follow? Before taking oxycodone, ?? tell your doctor and pharmacist if you are allergic to oxycodone, any other medications, or any of the ingredients in the oxycodone product you plan to take. Ask your pharmacist or check the Medication Guide for a list of the ingredients. ?? tell your doctor or pharmacist if you are taking the following medications or have stopped taking them within the past two weeks: isocarboxazid (Marplan), linezolid (Zyvox), methylene blue, phenelzine (Nardil), selegiline (Emsam, Zelapar), or tranylcypromine (Parnate). ?? The following nonprescription or herbal products may interact with oxycodone: César's wort and tryptophan. Be sure to let your doctor and pharmacist know that you are taking these medications before you start taking oxycodone. Do not start these medications while taking oxycodone without discussing it with your healthcare provider. ?? tell your doctor if you have or have ever had any of the conditions mentioned in the IMPORTANT WARNING section, a blockage or narrowing of your stomach or intestines, or paralytic ileus (conditionin which digested food does not move through the intestines). Your doctor may tell you not to take oxycodone. ?? Also tell your doctor if you have or have ever had low blood pressure; seizures; adrenal insufficiency (condition in which the adrenal glands do not produce enough of certain hormones needed for important body functions); seizures; urethral stricture (blockage of the tube that allows urine to leave the body), problems urinating; or heart, kidney, liver, pancreas, thyroid, or gall bladder disease. If you will be taking the extended-release tablets or extended-release capsules, also tell your doctor if you have or have ever had difficulty swallowing, diverticulitis (condition in which small pouches form in the intestines and become swollen and infected), colon cancer (cancer that begins inthe large intestine), or esophageal cancer (cancer that begins in the tube that connects the mouth and stomach). ?? tell your doctor if you are . You should not breastfeed while you are taking oxycodone. Oxycodone can cause shallow breathing, difficulty or noisy breathing, confusion, more than usual sleepiness, trouble , or limpness in breastfed infants. ?? you should know that this medication may decrease fertility in men and women. Talk to your doctor about the risks of taking oxycodone. ?? if you are having surgery, including dental surgery, tell the doctor or dentist that you are taking oxycodone. ?? you should know that this medication may make you drowsy. Do not drive a car, operate heavy machinery, or participate in any other possibly dangerous activities until you know how this medication affects you. ?? you should know that oxycodone may cause dizziness, lightheadedness, and fainting when you get up too quickly from a lying position. To help avoid this problem, get out of bed slowly, resting yourfeet on the floor for a few minutes before standing up. ?? you should know that oxycodone may cause constipation. Talk to your doctor about changing your diet or using other medications to prevent or treat constipation while you are taking oxycodone. What SPECIAL DIETARY instructions should I follow? Unless your doctor tells you otherwise, continue your normal diet. What should I do IF I FORGET to take a dose? If you are taking oxycodone on a regular schedule, take the missed dose as soon as you remember it.However, if it is almost time for the next dose, skip the missed dose and continue your regular dosing schedule. Do not take a double dose to make up for a missed one. Do not take more than one dose of the extended- release tablets or capsules in 12 hours. What SIDE EFFECTS can this medicine cause? Some side effects can be serious. If you experience any of these symptoms or those mentioned in theIMPORTANT WARNING section, call your doctor immediately or get emergency medical help: ?? changes in heartbeat ?? agitation, hallucinations (seeing things or hearing voices that do not exist), fever, sweating, confusion, fast heartbeat, shivering, severe muscle stiffness or twitching, loss of coordination, ordiarrhea ?? nausea, vomiting, loss of appetite, weakness, or dizziness ?? inability to get or keep an erection ?? irregular menstruation ?? decreased sexual desire ?? chest pain ?? rash; itching; hives; hoarseness; difficulty breathing or swallowing; or swelling of the face, mouth, tongue, lips, or throat ?? swelling of the hands, feet, ankles, or lower legs ?? seizures ?? extreme drowsiness If you experience a serious side effect, you or your doctor may send a report to the Food and Drug Administration's (FDA) MedWatch Adverse Event Reporting program online (https://www.fda.gov/Safety/MedWatch) or by phone ( ). Oxycodone may cause other side effects. Call your doctor if you have any unusual problems while youare taking this medication. What should I know about STORAGE and DISPOSAL of this medication? Keep this medication in the container it came in, tightly closed, and out of reach of children, andin a location that is not easily accessible by others, including visitors to the home. Store it at room temperature and away from light and excess heat and moisture (not in the bathroom). You must immediately dispose of any medication that is outdated or no longer needed through a medicine take-back program. If you do not have a take-back program nearby or one that you can access promptly, flush any medication that is outdated or no longer needed down the toilet so that others will not take it.Talk to your pharmacist about the proper disposal of your medication. It is important to keep all medication out of sight and reach of children as many containers (such as weekly pill minders and those for eye drops, creams, patches, and inhalers) are not child-resistant and young children can open them easily. To protect young children from poisoning, always lock safety caps and immediately place the medication in a safe location - one that is up and away and out of their sight and reach. https://www.upandaway.org What should I do in case of OVERDOSE? In case of overdose, call the poison control helpline at . Information is also available online at https://www.poisonhelp.org/help. If the victim has collapsed, had a seizure, has trouble breathing, or can't be awakened, immediately call emergency services at 911. While taking oxycodone, you should talk to your doctor about having a rescue medication called naloxone readily available (e.g., home, office). Naloxone is used to reverse the life-threatening effects of an overdose. It works by blocking the effects of opiates to relieve dangerous symptoms caused by high levels of opiates in the blood. Your doctor may also prescribe you naloxone if you are livingin a household where there are small children or someone who has abused street or prescription drugs. You should make sure that you and your family members, caregivers, or the people who spend time with you know how to recognize an overdose, how to use naloxone, and what to do until emergency medical help arrives. Your doctor or pharmacist will show you and your family members how to use the medication. Ask your pharmacist for the instructions or visit the community living coach's website to get the instructions. If symptoms of an overdose occur, a caregiver or family member should give the first dose of naloxone, call 911 immediately, and stay with you and watch you closely until emergency medical help arrives.Your symptoms may return within a few minutes after you receive naloxone. If your symptoms return, the person should give you another dose of naloxone. Additional doses may be given every 2 to 3 minutes, if symptoms return before medical help arrives. Symptoms of overdose may include the following: ?? difficulty breathing ?? slowed or shallow breathing ?? excessive sleepiness ?? limp or weak muscles ?? narrowing or widening of the pupils (dark [place] in the eye) ?? cold, clammy skin ?? unable to respond or wake up ?? slowed heartbeat ?? unusual snoring What OTHER INFORMATION should I know? Keep all appointments with your doctor. Your doctor may order certain lab tests to check your body's response to oxycodone. Before having any laboratory test (especially those that involve methylene blue), tell your doctor and the laboratory personnel that you are taking oxycodone. This prescription is not refillable. If you continue to have pain after you finish the oxycodone, call your doctor. It is important for you to keep a written list of all of the prescription and nonprescription (sxiu-lut-rhdrxeq) medicines you are taking, as well as any products such as vitamins, minerals, or otherdietary supplements. You should bring this list with you each time you visit a doctor or if you areadmitted to a hospital. It is also important information to carry with you in case of emergencies. This report on medications is for your information only, and is not considered individual patient advice. Because of the changing nature of drug information, please consult your physician or pharmacist about specific clinical use. The [place] [employer] represents that the information provided hereunder was formulated with a reasonable standard of care, and in conformity with professional standards in the field. The [place] [employer] makes no representations or warranties, express or implied, including, but not limited to, any implied warranty of merchantability and/or fitness for a particular purpose, with respect to such information and specifically disclaims all such warranties. Users are advised that decisions regarding drug therapy are complex medical decisions requiring the independent, informed decision of an appropriate health career and transition teacher, and the information is provided for informational purposes only. The entire monograph for a drug should be reviewed for a thorough understanding of the drug's actions, uses and side effects. The [place] [employer] does not endorse or recommend the use of any drug.The information is not a substitute for medical care. AHFS?? Patient Medication Information?. ?? Copyright, 2023. The [place] [employer]??, [address], [address], [place], [place]. All Rights Reserved. Duplication for commercial use must be authorized by [facility]. Selected Revisions: April 29, 2023. AHFS?? Patient Medication Information?. ?? Copyright, 2024 * [facility] - Sophie Ayala RN - 06/01/2024 1:33 PM EDT Images from the original note were not included. 450 Safe Use of Controlled Substances Taking a medicine may be an important part of your treatment. Your body should heal faster if you take medicine safely. Some medicines are called Controlled Substances. This means their use is controlled by law. Some of these can harm you if you do not take them safely. What can I do to make sure I take my medicine safely? ?? Follow the instructions we give you for how to take your medicine. ?? We will give you an instruction sheet for each of your medicines. Ask your doctor or nurse if you do not get these instructions. ?? Some medicines make you sleepy or cloud your thinking. Do not drive, use heavy machines or do dangerous activities while taking these medicines. ?? Read the label on the bottle each time you take your medicine. ?? Do not take your medicine with alcohol or other sedatives. ?? Do not take medicine after the expiration date. ?? It is against the law to sell your medicine or share it with others. ?? Do not drive while using your medicine. How should I store my medicine? Store it in a safe place. This will keep others from taking your medicine and help you keep track of it. ?? Store controlled substances in a cabinet or container that you can lock. ?? Keep it in a place that is cool, dry and out of direct sunlight. ?? Do not leave it in the car. ?? Do not store in a refrigerator or freezer, unless your doctor tells you to. ?? Call your doctor right away if your medicine is lost or stolen. How should I dispose of medicine that is or no longer needed? You may have medicine left over that you do not need or should not take. You must dispose of it theright way to protect yourself and others. You can ask your local pharmacist how to dispose of them.You can also visit these Web sites to learn more about disposal of controlled substances: ?? Drug Enforcement Agency ([place]): http://www.deadiversion.SourceThoughtoj.gov/drug_disposal/takeback/index.htm ?? National Association of Drug Diversion Investigators (NADDI): http://rxdrugdropbox.org/ ?? [place] Office of Drug Control Policy: http://odcp.ky.gov/Prescription+Drug+Drop+Box+Sites.htm Are there concerns about or ? ?? Before you take a medicine, tell your doctor if you are or plan to get . This could harm your baby. ?? Tell your doctor if you breastfeed. Medicine in breast milk may be bad for your child. What if I have low or impaired vision? If you have vision problems, take extra care with your medicine. ?? Wear your glasses when you take your medicine. ?? Do not take medicine in the dark. What are the signs of overdose? Some controlled substances may cause breathing problems if you take more than your doctor recommends. This may lead to serious health problems or even . You and your caregivers should watch for the following signs of overdose. ?? Slurred speech, confusion or stumbling ?? Feeling dizzy or faint ?? Acting drowsy or groggy ?? Unusual snoring, gasping or snorting during sleep ?? Hard to wake up or keep awake What should I or my caregiver do if I overdose? You or your caregiver should call 911 if you have any of these problems: ?? Cannot wake up ?? Cannot talk after waking up ?? Shortness of breath, slow or light breathing, or breathing has stopped ?? Heartbeat is slow or stopped ?? Gurgling noise comes from the mouth or throat ?? Body is limp or seems lifeless ?? Face is pale or clammy ?? Fingernails or lips look blue or purple What is a [facility] report? KARTHIKEYAN is a system that tracks prescriptions of controlled substances in [place]. The KARTHIKEYAN report tells your doctor if you have been prescribed controlled substances in the past. Doctors must get a KARTHIKEYAN report before prescribing controlled substances. What can I do if the information in my KARTHIKEYAN report is wrong? You or your doctor may contact the dispenser who reported the information to [facility]. If the dispenser agrees that the information should be changed, he or she can fix the KARTHIKEYAN report. However, the dispenser may certify that the report is correct. If that is the case, you or your doctor may then call the [place] Drug Enforcement and Professional Practices Branch at .This will start an investigation of the error. * [facility] Sophie Ayala RN - 06/01/2024 1:32 PM EDT Images from the original note were not included. 32264 Washing Your Hands [id number] Last Reviewed Date: 2022 00:00:00 ?? 3621-0050 [employer]. All rights reserved. This information is not intended as a substitute for professional medical care. Always follow your healthcare professional's instructions. * Kristal So - Sophie Ayala RN - 06/01/2024 1:32 PM EDT Images from the original note were not included. 11704 Preventing a Surgical Site Infection A risk of any surgery is an infection at the surgical site. The surgical site is a cut the surgeon makes in the skin to do the surgery. Surgical site infections can range in type. It may be a minor skin infection. Or it may be severe and include tissue under the skin or other organs. In some cases,a severe infection can cause . The information below tells you: ?? About surgical site infections. ?? What hospitals do to prevent them. ?? How they?re treated if they do occur. ?? What you can do to prevent an infection. Hand washing reduces the risk of infection. What causes a surgical site infection? Germs are everywhere. They?re on your skin, in the air, and on things you touch. Many germs are good. Some are harmful. Surgical site infections occur when harmful germs enter your body through the incision in your skin. Some infections are caused by germs that are in the air or on objects. But most are caused by germs found on and in your own body. Who is at risk for a surgical site infection? Anyone can have a surgical site infection. Your risk is higher if you: ?? Are an older adult. ?? Have a weak immune system. ?? Have other health conditions such as diabetes. ?? Take certain medicines, such as steroids. ?? Are a smoker. ?? Have certain types of surgery, such as abdominal surgery. ?? Have poor nutrition. ?? Are very overweight. ?? Have a surgery that lasts longer than 2 hours. What are the symptoms of a surgical site infection? An infection often shows up as skin redness, pain, and swelling around the incision that gets worse. Later, a cloudy or greenish-yellow fluid may come from the incision. The fluid may smell bad. The incision may pull apart or open up. You are likely to have a fever and may feel very ill. Symptoms can appear at any time. They may happen from hours to weeks after surgery. Implants such as an artificial knee or hip can become infected at any time after the surgery. How is a surgical site infection treated? ?? A surgical site infection is treated with antibiotics. The type of medicine you get will depend on what may be causing the infection. Most serious wound infections need wound care. In some cases, surgery may be needed on the infected wound. ?? An infected skin wound may be reopened and cleaned. A deep wound may need to be packed with gauze. The gauze is changed often until the wound starts to heal from the inside out. Your health care provider will decide the best way to treat your infection. ?? If an infection occurs where an implant is placed, the implant may be removed. ?? If you have an infection deeper in your body, you may need surgery to treat it. What hospitals do to prevent surgical site infections Many hospitals take these steps to help prevent surgical site infections: ?? Handwashing. Before the surgery, your surgeon and all surgery staff scrub their hands and arms with an antiseptic soap. ?? Clean skin. The site where your incision is made is carefully cleaned with an antiseptic solution. ?? Sterile clothing and drapes. The surgical team wears medical uniforms. These are known as scrub suits. They wear long-sleeved surgical gowns, masks, caps, shoe covers, and sterile gloves. Your body is fully covered with a large sterile sheet (sterile drape). There is an opening in the sheet where the incision is made. ?? Clean air. Operating rooms have special air filters. They use positive pressure airflow to prevent unfiltered air from entering the room. ?? Careful use of antibiotics. Antibiotics are given no more than 60 minutes before the incision ismade. They are generally stopped within 24 hours after surgery. This depends on the type of surgery. This helps kill germs but prevents problems that can occur when antibiotics are taken longer. ?? Controlled blood sugar levels. Your blood sugar level may rise. This can be because of the stress of the surgery. Your blood sugar level is watched closely to make sure it stays within a normal range. High blood sugar delays wound healing. This increases the risk of infection. ?? Controlled body temperature. A hnmjj-zxop-latttq temperature during or after surgery prevents oxygen from reaching the wound. This makes it harder for your body to fight infection. Hospitals may warm I.V. fluids, and provide warm-air blankets. Your temperature is watched throughout the surgery. ?? Safe hair removal. Any hair that must be removed is clipped right before the incision, not shaved with a razor. This prevents tiny nicks and cuts where germs can enter. ?? Wound care. After surgery, a closed wound is covered with a sterile dressing for 1 to 2 days. Open wounds are packed with sterile gauze and covered with a sterile dressing. What you can do to prevent a surgical site infection ?? Ask questions. Learn what your hospital is doing to prevent infection. ?? If instructed, shower or bathe with plain soap the night before and the day of your surgery. Follow all instructions you're given. You may be asked to use a special cleanser that you don?t rinse off. ?? If you smoke, stop as long as possible before and after the surgery. Ask your provider about ways to quit. ?? Take antibiotics only when your provider tells you to. Using antibiotics when they?re not neededcan create germs that are harder to kill. Finish the entire prescription of your antibiotics even if you feel better. ?? Ask health care workers to clean their hands with plain soap and water or with an alcohol-based hand vascular ultrasound technician before and after caring for you. Don?t be afraid to remind them. ?? After surgery, eat healthy foods. Care for your incision as directed by your health care team. When to contact your doctor Contact your provider or seek medical care right away if: ?? The pain at the surgical site gets worse. ?? A red streak, worse redness, or puffiness appears near the incision. ?? Yellowish, cloudy, or bad-smelling fluid leaks from the incision. ?? Your stitches dissolve before the wound heals. ?? You have a fever of 100.4?? F ( 38??C ) or higher, or as advised by your provider. ?? You have a tired feeling that doesn?t go away. Last Reviewed Date: 2024 00:00:00 ?? [id number] [employer]. All rights reserved. This information is not intended as a substitute for professional medical care. Always follow your healthcare professional's instructions. * Kristal So - Sophie Ayala RN - 06/01/2024 1:32 PM EDT Images from the original note were not included. 528 Moving After Your Injury or Illness Health problems can make it harder for you to turn in bed, get up and down, sit, stand, or walk. But moving less can cause your illness to get worse. It can cause you to get health problems you did not have before or cause you to stay in the hospital for a longer period of time. These problems can affect your body and your life. You need to move while you are in the hospital. You need to move as much as you can, even when you are sick or hurt. Your nurse or doctor will talkto you about safe ways you can keep moving during your hospital stay. Moving has many benefits. ?? It will help you heal. ?? It will protect you from getting other health problems. ?? You will spend less time in the hospital. ?? You will spend less money on healthcare. Not moving can cause many kinds of problems. Not moving can cause health problems that can make you sicker or even cause . Some of these problems are: Bed sores: A bed sore is also called a pressure injury. It is an injury to the skin or tissue. Not moving or staying in one position too long are common causes of bed sores. Heart problems: Moving less can weaken your heart muscles. When the muscles are weak, your heart cannot pump blood well. This means less blood and oxygen travels through your body. When blood flow slows down, it can cause clots. Blood clots: When you move less, you can get a blood clot. They often form in the leg veins. You are more likely to get a clot if you: ?? are in bed for a long time ?? smoke ?? have had a certain type of surgery Pulmonary embolism: A pulmonary embolism is serious problem that can cause . It means a blood clot in a vein breaks off and blocks an artery in the lung. Stroke: A stroke is when blood flow to the brain stops. A blood clot in the brain can cause a stroke. Heart attack: A blood clot traveling to your heart can cause a heart attack. This blocks the flow of blood and oxygen. Lung problems: Your lungs do not expand as much when you sit or lay down. If your lung muscles do not stretch, they become stiff and your breathing muscles have to work harder to help you breathe.. This can lead to pneumonia or even organ damage. Muscle and bone problems: If you do not move, your muscles can get weak or shrink. When muscles do not stretch, you feel stiff and achy. Your bones may become weak or brittle. This makes it easier for your bones to break. Stomach problems: Lying in bed can cause the muscles in your bowels to slow down. This can lead to: ?? loss of appetite ?? getting less nutrition from what you eat ?? fewer bowel movements and constipation Mood and behavior changes: Not moving can have bad effects on your brain. Some common signs of thisare: ?? mood changes ?? confusion ?? less mental alertness ?? anxiety or stress ?? depression ?? sleep problems * [facility] - Sophie Ayala RN - 06/01/2024 1:32 PM EDT Images from the original note were not included. 1287 What Your Weight Bearing Status Means Your doctor?s orders: Non-Weight Bearing (NWB) Do not put any weight on your arm or leg at all. If your leg is injured, do not let it touch the floor when you sit, stand, or walk. When you walk, hold your leg off the ground. Touch Down Weight Bearing (TDWB) You may rest your leg on the ground when you sit, stand, or walk - for balance only. Do not put your body weight on that leg. It should only support the weight of your leg. This is also called ?Svmlvm-xj-Liu Weight Bearing,? ?Toe-Touch Weight Bearing,? or ?Foot-Flat Weight Bearing.? Weight Bearing for Transfers Only You may place just enough body weight on the arm or leg to move from the bed to a chair, wheelchair, or bedside commode. You must stay in a seated or squatting position while moving. Do not stand, take steps, or put your full body weight on the arm or leg. Partial Weight Bearing (PWB) Your doctor will tell you how much weight you can put on your arm or leg. The weight may be in pounds or as a percent of body weight. Do not put more weight on the arm or leg than the doctor allows. Protected Weight Bearing (pWBAT) Protected weight bearing means your doctor would like you to use an assistive device while walking for extra support. While using a device such as a walker or cane, put as much weight as feels comfortable on your arm or leg. If you have pain, put less weight on the arm or leg. Weight Bearing as Tolerated (WBAT) You may put your full body on the injured arm or leg if pain allows. This is close to full weight bearing. Put more and more weight on the arm or leg as you heal and have less pain. There is no limitto how much weight you should put on your arm or leg - just let your comfort and pain level to guide you. You can use an assistive device such as a walker, crutches, or cane as needed for more support if you have pain or weakness with walking. Weight Bearing as Tolerated Through Elbow Do not place any weight through your wrist or hand until your injury heals. You may place as much weight as you can stand through your elbow as you change positions, get up, or move - such as when you use a platform walker. Passive Range of Motion as Tolerated Do not move the joint in your arm or leg on your own. As your pain allows, another person may move the joint for you. This may be a therapist, doctor, nurse, or family caregiver. Range of Motion as Tolerated (ROMAT) You can move your joint as much as feels comfortable. There is no limit to how much you can move the joint. Move the arm or leg joint more and more as you heal and have less pain. It is very important to keep your joints moving as you heal. This is also called ?Active Range of Motion as Tolerated.? Activity as Tolerated (AAT) You may use your arm or leg as much as your pain allows. There is no limit to how much weight you should place on the arm or leg. And there is no limit to the range of motion for the arm or leg. Use the arm or leg more and more as you heal and have less pain. * Sophie Walton RN - 06/01/2024 1:31 PM EDT Images from the original note were not included. 204 Incision Care After Orthopaedic Surgery Will there be a dressing on the incision? After surgery, we will cover your incision with a sterile dressing that is waterproof. It is important to keep this dressing clean, dry, and intact as long as possible after surgery. This will reduceyour risk of infection. If possible, leave it in place until you return to the clinic for your first follow-up appointment. It is normal to have a small amount of drainage on the dressing. How do I care for the incision at home? Once the dressing is removed, it is important to talk good care of the incision. Please follow these instructions until your doctor tells you otherwise. ?? Once the dressing is removed, you may shower. You can allow warm soapy water to run over the incision. Do not scrub the incision and always pat dry. ?? Do not soak your incision in water. This means no tub baths or swimming. Your doctor will tell you when you can to do these things. ?? Do not clean your incision with any solution, ointment, or salve unless directed to do so by your doctor. ?? Always wear clean clothes over your incision. When should I call my doctor? If you have any of the following warning signs, call your doctor right away: ?? Pain or swelling gets worse ?? Numbness or tingling in the hand or foot ?? A burning or stinging feeling ?? Fever or chills ?? Bleeding or drainage from the dressing ?? Dressing rubs the heel or elbow ?? Damage or wetness to the dressing ?? Dressing feels too loose * Sophie Walton RN - 06/01/2024 1:31 PM EDT Images from the original note were not included. [id number] Fall Prevention Falls often take place due to slipping, tripping, or losing your balance. Millions of people fall every year and injure themselves. Among older adults in the [place] falls are the most common cause of traumatic brain injuries. Every 20 minutes, an older adult dies from a fall. Here are ways to reduceyour risk of falling again: ?? Think about your fall. Was there anything that caused your fall that can be fixed, removed, or replaced? ?? Make your home safe by keeping walkways clear of objects you may trip over, such as animal toys and electrical cords. ?? If you are sad or depressed talk to your health care provider. Symptoms of depression, such as feeling under the weather, or physically slowed down, have been linked to an increased fall risk. ?? Drink fluids throughout the day. Dehydration can lead to dizziness and increase your risk of falling. It's best to talk to your primary care providers about how much water you should drink. They know your medical history, your current prescriptions and your fokw-nou-aomwtpn medicines. As a general rule, the [employer] (NCA) recommends taking one-third of your body weight and drinking that number of ounces in fluids. For example, if you weigh 150 pounds, you would drink at least 50 ounces, or about 6 cups, of fluid each day. Ask your provider if it's safe for you to use this formula. ?? Use nonslip pads under rugs. Don't use area rugs or small throw rugs. ?? Use nonslip mats in bathtubs and showers. ?? Hang grab rails by the toilet and inside and outside the shower. ?? Install handrails and lights on staircases. The handrails should be on both sides of the stairs. ?? Use night lights. ?? Don't walk in poorly lit areas. ?? Don't stand on chairs or wobbly ladders. ?? Use care when reaching overhead or looking up. This position can cause a loss of balance. ?? Be sure your shoes fit well, are in good condition, and have nonslip bottoms. ?? Wear shoes both inside and outside of your home. Don't go barefoot or wear slippers. ?? Be cautious when going up and down stairs, curbs, and when walking on uneven sidewalks. ?? If your balance is poor, consider using a cane or walker. Talk with your health care provider about having a balance assessment. ?? If your fall was related to alcohol use, stop or limit alcohol intake. Ask your provider for help if you think you may overuse alcohol and can't stop. ?? If your fall was related to use of sleeping medicines, talk with your provider about this. You may need to reduce your dosage at bedtime if you wake up during the night to go to the bathroom. ?? To reduce the need for nighttime bathroom trips: o Don't drink fluids for several hours before going to bed. o Empty your bladder before going to bed. o Men can keep a urinal at the bedside. ?? Stay as active as you can. Balance, flexibility, strength, and endurance all come from exercise.They all play a role in preventing falls. Ask your provider which types of activity are right for you. Try to do some type of exercise every day. ?? Get your eyes checked once a year or more often if your vision changes. Be extra cautious while adjusting to new prescription lenses. ?? If you have pets, know where they are before you stand up or walk so you don't trip over them. ?? Go over all your medicines with a pharmacist or other provider. This is to see if any of them could make you more likely to fall. Have this type of medicine review at least once every year. ?? If your provider advises a new medicine, ask if the side effects will affect your balance. ?? Don't move quickly from one position to another. For instance, don't stand up fast from sitting.This can cause dizziness and may lead to a fall. ?? Sit down when putting on pants, socks, and shoes. This will make you less likely to lose your balance and fall. ?? Always let your provider know if you have fallen since your last visit. ?? Contact your provider right away if you're having balance problems or falling more often. Last Reviewed Date: 2024 00:00:00 ?? [id number] [employer]. All rights reserved. This information is not intended as a substitute for professional medical care. Always follow your healthcare professional's instructions. * Discharge Summary - Helena Sharma APRN, DNP - 06/01/2024 1:18 PM EDT Hospitalization Admit Date/Time: 05/23/2024 6:14 AM Admitting Attending: Rubén Martin Discharge Date: 06/01/2024 Discharge Attending Physician: Ashli Whitaker MD PCP name and Address: Joshua Urban MD (Inactive) [address] [facility] / [place] [address] Referring provider name and address: Chepe Carreno MD [address] [place] [address] Chief Concern, Brief History of Present Illness, and Hospital Course Kassy Cline is a 64 y.o. female with a PMHx of CKD stage 3, Atrial Fibrillation on Eliquis, T2DM, COPD (intermittent 2L at baseline), Cirrhosis, CHF, Hypertension, Hyperlipidemia who presented on05/23 as a transfer from OSH following a ground level fall the day prior. Injuries include: L IT fx. Past 24 Hours: Patient is sitting up in chair eating lunch. Awake and alert. Anxious mood. VSS. On RA with no SOA or chest pain. NAEON. NAD. Patient reports that her pain is not controlled with current pain regimen. Denies nausea, vomiting, abd pain/discomfort, dizziness, SOA, or chest pain. Patient tolerating diet. Voiding spontaneously. Last BM was 05/31. Discussed with patient about subacute rehab. She statesshe is afraid to go due to her being her 4th fracture. Explained to patient about the type of rehaband how long per day she will need rehab to increase mobility. Patient showed understanding and agreed with plan. Patient is medically ready for subacute rehab. She will return [facility]. No concerns per patient or nursing at this time. Physical therapy and occupational therapy evaluated the patient during hospitalization and recommend subacute rehab. At the time of discharge the patient was hemodynamically stable, tolerating PO, voiding spontaneously, normal bowel function, mobilizing appropriately, with their pain controlled with PO medication. At this time, the patient has obtained the maximum benefit from the present hospital stay, and so will be discharged to [facility]. DVT Prophylaxis: Resume home Eliquis Procedures: 05/24: ORIF of L IT with CMN Incidental Findings: None Restrictions: WB: LLE weight-bearing as tolerated Orthopedic Wound Care: LLE: ARTUR wrap should be removed 72 hours following surgery, and then re-applied daily for swelling as needed taking care not to remove the sterile OR dressing underneath. If bandage becomes wet, soiled, or falls off it may be replaced with a clean dry gauze dressing as needed. May remove left knee bandages from traction pin sites 2-3 days after surgery; if dry, may then leave open to air or placeadditional dry dressing as needed. For medical questions or concerns after discharge, please contact the Orthopedic Transition Nurse at [phone] Tuesday through Tuesday 8:00 am to 2:30 pm. If you feel your concern is a medical emergency please call 911 immediately. Pain Medications: - You should take 650 mg Tylenol every 6 hours for mild - moderate pain. - You should take 500 mg methocarbamol 3 times per day for muscle spasms. - You have been prescribed pain medications to be taken as needed for severe pain. - You should take the stool softener prescribed as long as you are taking narcotics. - You may resume your previous medications unless otherwise instructed. Nutrition: - You may resume your normal diet as tolerated, focusing on liquids to keep yourself hydrated. Activity: - No driving while on narcotics Potential Issues: - It is normal to have some pain and soreness, especially around the incisions - A small amount of clear drainage from the incision may be expected, call the office if the drainage becomes bloody, purulent (pus), or foul-smelling - Call the office if you start to have increased redness, drainage, swelling, or increased pain around your incision - Call the office if you have a fever greater than 101 F - Call the office if you have severe abdominal discomfort, nausea and vomiting, or feeling unwell Follow up appointments: Follow up with PCP within one to two weeks after discharge for post hospitalization visit, to review incidental findings, and for management of chronic medications/conditions. Orthopedic surgery: Follow up on 06/12/2024 at 9:30AM with Bing Byers APRN @ Orthopaedic Surgery [facility] Medicine; [facility], [address], [address] Floor, [address], [address], [place] [address], # [phone]. Follow up with trauma clinic as needed. [address], [address] [place] [address], #[phone]. Questions or Concerns and Appointments: If there are questions or concerns after discharge from the hospital, please call [phone] and ask for [facility] Nurse. Working hours are Tuesday - Tuesday 8:00 AM to 4:00 PM. After hours, weekends and holidays please call [phone] and ask for the resident operations support manager for [facility]. For appointments please call [phone]. Medication requests should be made between the hours of 9:00 AM to 3:00 PM Tuesday thru Tuesday. Please note that based upon recent changes to [place] law related to prescribing opioid pain medications, our providers will not provide refills on controlled medications after your hospital discharge following a major surgery or trauma. [place] 201 KAR9:260. Surgeries and Procedures Procedures performed in this encounter Procedures Case Request Operating Room: Left Intertroch Intramedullary Nail Left Intertroch Intramedullary Nail (Left) Medication List .. acetaminophen 325 MG tablet Commonly known as: Tylenol Take 2 tablets by mouth every 8 hours for 15 days. Under [place] law, monthly prescriptions (30 days) can be refilled at 25 days and three-month prescriptions (90 days) at 80 days. Please contact the insurance company with questions if refills are denied. apixaban 5 MG tablet Commonly known as: Eliquis Take 1 tablet by mouth in the morning and 1 tablet before bedtime. ARIPiprazole 10 MG tablet Commonly known as: Abilify Take 1 tablet by mouth every morning. atorvastatin 10 MG tablet Commonly known as: Lipitor Take 1 tablet by mouth daily. bumetanide 1 MG tablet Commonly known as: Bumex Take 1 tablet by mouth every morning. busPIRone 10 MG tablet Commonly known as: Buspar Take 1 tablet by mouth in the morning and 1 tablet before bedtime. ergocalciferol 1.25 MG (37437 UT) capsule Commonly known as: Vitamin D-2 Take 1 capsule by mouth 1 (one) time per week. Start taking on: June 06, 2024 famotidine 20 MG tablet Commonly known as: Pepcid Take 1 tablet by mouth in the morning and 1 tablet before bedtime. Farxiga 5 MG tablet Generic drug: dapagliflozin Take 1 tablet by mouth daily. gabapentin 300 MG capsule Commonly known as: Neurontin Take 1 capsule by mouth every 8 hours for 15 days. guaiFENesin 600 MG 12 hr tablet Commonly known as: Mucinex Take 2 tablets by mouth in the morning and 2 tablets before bedtime. Do not crush, chew, or split. insulin aspart 100 UNIT/ML injection pen Commonly known as: NovoLOG Inject 6 Units under the skin 3 (three) times a day with meals. Plus sliding scale insulin glargine-yfgn 100 UNIT/ML injection vial Inject 14 Units under the skin 2 (two) times a day. ipratropium-albuterol 0.5-2.5 mg/3 mL nebulizer solution Commonly known as: Duo-Neb Take 3 mL by nebulization every 6 (six) hours. isosorbide mononitrate ER 30 MG 24 hr tablet Commonly known as: Imdur Take 1 tablet by mouth every morning. Do not crush or chew. melatonin tablet Take 1 tablet by mouth nightly. methocarbamol 500 MG tablet Commonly known as: Robaxin Take 1 tablet by mouth 3 (three) times a day for 15 days. Metoprolol Tartrate 37.5 MG tablet Take 37.5 mg by mouth 2 (two) times a day. naloxone 4 mg/0.1 mL nasal spray Commonly known as: Narcan 1. Give 1 spray in nostril for no/slow breathing or cannot wake after opioid use 2. Call 911 3. Repeat in other nostril if symptoms continue oxyCODONE 5 MG immediate release tablet Commonly known as: Roxicodone Take 1 tablet by mouth every 4 (four) hours as needed for severe pain for up to 3 days. polyethylene glycol 17 g packet Commonly known as: Miralax Take 17 g by mouth 2 (two) times a day. senna-docusate 8.6-50 MG tablet Commonly known as: Andreia-Colace Take 2 tablets by mouth 2 (two) times a day. sertraline 100 MG tablet Commonly known as: Zoloft Take 2 tablets by mouth daily. sodium zirconium cyclosilicate 5 g packet Commonly known as: Lokelma Take 1 packet by mouth in the morning and 1 packet before bedtime. telmisartan 20 MG tablet Commonly known as: MIcarDIS Take 1 tablet by mouth daily. traZODone 50 MG tablet Commonly known as: Desyrel Take 0.5 tablets by mouth at night as needed for sleep. Trelegy Ellipta 100-62.5-25 MCG/ACT aerosol powder Generic drug: Tetmdpnzrhg-Coxulmqbj-Sskeft Inhale 1 puff every morning. Where to Get Your Medications These medications were sent to [facility] [address] [place] [address] [address] [place] [address] acetaminophen 325 MG tablet ergocalciferol 1.25 MG (53626 UT) capsule gabapentin 300 MG capsule insulin glargine-yfgn 100 UNIT/ML injection vial ipratropium-albuterol 0.5-2.5 mg/3 mL nebulizer solution melatonin tablet methocarbamol 500 MG tablet Metoprolol Tartrate 37.5 MG tablet naloxone 4 mg/0.1 mL nasal spray oxyCODONE 5 MG immediate release tablet polyethylene glycol 17 g packet senna-docusate 8.6-50 MG tablet traZODone 50 MG tablet Discharge Diagnosis Medical Problems Active and Resolved Hospital Problems Hospital Essential hypertension Overview Signed 05/26/2024 12:02 PM by Rukhsana Dawkins APRN Resume home meds as appropriate Atrial fibrillation ([facility]/HCC) Overview Addendum 05/30/2024 3:44 PM by Lauren Vanessa PA Resume home meds as appropriate Switched to enoxaparin from subcutaneous heparin d/t downtrending RAGHAV 05/29: Pt went into afib w/ RVR, back into SR ~4 hours later CHF (congestive heart failure) (CMS/HCC) Overview Signed 05/26/2024 12:02 PM by Rukhsana Dawkins APRN Resume home meds as appropriate Cirrhosis (CMS/HCC) Overview Signed 05/26/2024 12:02 PM by Rukhsana Dawkins APRN Resume home meds as appropriate COPD (chronic obstructive pulmonary disease) ([facility]) Overview Addendum 05/29/2024 10:51 AM by Lauren Vanessa PA On home 2L NC COPD exacerbation tx this hospitalization Prednisone through 05/29 Diabetic neuropathy ([facility]) Overview Signed 05/26/2024 12:00 PM by Rukhsana Dawkins APRN Resume home meds as appropriate Hyperlipidemia Overview Signed 05/28/2024 2:50 PM by Lauren Vanessa PA Resume home meds as appropriate Leukocytosis Overview Signed 05/30/2024 3:45 PM by Lauren Vanessa PA Most likely d/t steroid course for COPD exacerbation CTM RESOLVED: Fall Closed intertrochanteric fracture of left femur Overview Addendum 05/29/2024 10:51 AM by Lauren Vanessa PA ORF consult, s/p CMN 05/24 LLE WBAT Follow up in [facility] with Bing Byers on 06/12 Hyperkalemia Overview Addendum 05/29/2024 10:52 AM by Lauren Vanessa PA -5.4 on arrival -Continue to monitor, resume home lokelma -05/28: 1x 10mg Lokelma dose for K 5.1 * (Principal) Fall at home, initial encounter Overview Addendum 05/27/2024 6:43 PM by Dick Pittman PA Admit SGT ICU Tertiary, ITSS, AUDIT-C completed 05/24 Ackpe-fd-yvomfwj kidney injury ([facility]) Overview Addendum 05/30/2024 3:49 PM by Lauren Vanessa PA Cr 2.92 on arrival, Baseline ~ 2.4 Avoid nephrotoxic agents as able and renally dose medications IVF resuscitation as needed Frailty Overview Signed 05/23/2024 11:51 AM by Rubén Martin MD Weak and wheelchair bound Gait disturbance Overview Signed 06/01/2024 1:19 PM by Helena Sharma APRN, DNP At baseline difficulty ambulating Type 2 diabetes mellitus Overview Signed 05/26/2024 12:02 PM by Rukhsana Dawkins APRN SSI/CC2 diet as appropriate Acute respiratory failure Overview Addendum 05/30/2024 3:45 PM by Lauren Vanessa PA Wean O2 as able 1L NC Anxiety and depression Overview Signed 05/26/2024 12:00 PM by Rukhsana Dawkins APRN Resume home meds as appropriate Current use of custodial anticoagulation Overview Signed 05/27/2024 11:33 AM by Rukhsana Dawkins APRN Resume home eliquis upon discharge RESOLVED: Closed fracture of left hip (CMS/HCC) Overweight (BMI 25.0-29.9) Overview Signed 06/01/2024 1:21 PM by Helena Sharma APRN, DNP BMI 28.37 Complicates care Post Discharge Instructions DVT Prophylaxis: Resume home Eliquis Procedures: 05/24: ORIF of L IT with CMN Incidental Findings: None Restrictions: WB: LLE weight-bearing as tolerated Orthopedic Wound Care: LLE: ARTUR wrap should be removed 72 hours following surgery, and then re-applied daily for swelling as needed taking care not to remove the sterile OR dressing underneath. If bandage becomes wet, soiled, or falls off it may be replaced with a clean dry gauze dressing as needed. May remove left knee bandages from traction pin sites 2-3 days after surgery; if dry, may then leave open to air or placeadditional dry dressing as needed. For medical questions or concerns after discharge, please contact the Orthopedic Transition Nurse at [phone] Tuesday through Tuesday 8:00 am to 2:30 pm. If you feel your concern is a medical emergency please call 911 immediately. Pain Medications: - You should take 650 mg Tylenol every 6 hours for mild - moderate pain. - You should take 500 mg methocarbamol 3 times per day for muscle spasms. - You have been prescribed pain medications to be taken as needed for severe pain. - You should take the stool softener prescribed as long as you are taking narcotics. - You may resume your previous medications unless otherwise instructed. Nutrition: - You may resume your normal diet as tolerated, focusing on liquids to keep yourself hydrated. Activity: - No driving while on narcotics Potential Issues: - It is normal to have some pain and soreness, especially around the incisions - A small amount of clear drainage from the incision may be expected, call the office if the drainage becomes bloody, purulent (pus), or foul-smelling - Call the office if you start to have increased redness, drainage, swelling, or increased pain around your incision - Call the office if you have a fever greater than 101 F - Call the office if you have severe abdominal discomfort, nausea and vomiting, or feeling unwell Follow up appointments: Follow up with PCP within one to two weeks after discharge for post hospitalization visit, to review incidental findings, and for management of chronic medications/conditions. Orthopedic surgery: Follow up on 06/12/2024 at 9:30AM with Bing Byers APRN @ Orthopaedic Surgery & Sports Medicine; [facility], [address] [place] [address], First Floor, Wing C, Room [address], [place] [address], # [phone]. Follow up with trauma clinic as needed. [address] [place] [address] First Floor, Wing [address] [place] [address], #[phone]. Questions or Concerns and Appointments: If there are questions or concerns after discharge from the hospital, please call [phone] and ask for [facility] Nurse. Working hours are Tuesday - Tuesday 8:00 AM to 4:00 PM. After hours, weekends and holidays please call [phone] and ask for the resident operations support manager for [facility]. For appointments please call [phone]. Medication requests should be made between the hours of 9:00 AM to 3:00 PM Tuesday thru Tuesday. Please note that based upon recent changes to [place] law related to prescribing opioid pain medications, our providers will not provide refills on controlled medications after your hospital discharge following a major surgery or trauma. [place], [place] 201 KAR9:260. Outpatient Follow-Up Future Appointments Date Time Provider Department Center 06/12/2024 9:30 AM Bing Byers APRN [facility] Test Results Pending At Discharge Pending Labs Order Current Status Prepare Leukocyte Reduced RBC: 2 Units Preliminary result Prepare Leukocyte Reduced RBC: 2 Units, Leukocyte reduced (CMV reduced risk) Preliminary result Pertinent Physical Exam At Time of Discharge Physical Exam Vitals and nursing note reviewed. Constitutional: General: She is not in acute distress. Appearance: She is not ill-appearing or diaphoretic. HENT: Head: Normocephalic. Nose: Nose normal. Mouth/Throat: Mouth: Mucous membranes are moist. Pharynx: Oropharynx is clear. Eyes: Extraocular Movements: Extraocular movements intact. Conjunctiva/sclera: Conjunctivae normal. Cardiovascular: Rate and Rhythm: Normal rate. Pulmonary: Effort: Pulmonary effort is normal. No respiratory distress. Chest: Chest wall: No tenderness. Abdominal: General: There is no distension. Palpations: Abdomen is soft. Tenderness: There is no abdominal tenderness. There is no guarding. Musculoskeletal: General: Tenderness (LLE) and signs of injury (LLE) present. Cervical back: Normal range of motion. Comments: ARTUR wrap on LLE Skin: General: Skin is warm and dry. Neurological: Mental Status: She is alert. Mental status is at baseline. Sensory: No sensory deficit. Motor: Weakness (generalized) present. Psychiatric: Behavior: Behavior normal. Thought Content: Thought content normal. Discharge Disposition/Condition Disposition: Nursing facility ([facility]) [facility] Condition: Stable (s/sx potential problems absent or manageable) I spent >30 minutes of patient care and instruction time in preparation for this discharge. Cosigned by Ashli Whitaker MD at 06/03/2024 4:29 PM EDT * Progress Notes - Florecita Suh RN - 06/01/2024 12:10 PM EDT Case Management Discharge Note Kassy Cline 64 y.o. female CSN: [id number] Admission: 05/23/2024 6:14 AM Primary Problem: Fall at home, initial encounter Primary Technology Trainer: Primary Caregiver: Self Assistance Available at Discharge: SNF Housing Circumstances-Z Codes: Housing Circumstances (select all that apply): None Applicable Discharge Facility/Level of Care Needs: Discharge Facility/Level of Care Needs: 3-[facility] Facility DME/Equipment Needed after Discharge: Equipment Currently Used at Home: wheelchair, manual, oxygen Medicare Documentation: Medicare Second Notice?: Yes Date Second Notice Completed: 06/01/24 Time Second Notice Completed: 1036 Medicare Second Notice Recieved By: patient Follow-up: [facility] Yancy Moy [phone] Follow up Discharge Transportation: Has discharge transport been arranged?: Yes (caliber stretcher) What day is the transport expected?: 06/01/24 What time is the transport expected?: 1430 Follow Up Transport: Transportation Needed to Follow up Appoinments: Medical Transport Additional Comments: Patient is scheduled 1430 caliber stretcher at bedside going to [facility]. Report: [phone] [facility] Florecita Suh RN * Care Plan - Velma Vieira RN - 06/01/2024 11:10 AM EDT Problem: Infection Goal: Absence of Infection Signs and Symptoms Outcome: Adequate for Care Transition Problem: Adult Inpatient Plan of Care Goal: Plan of Care Review Outcome: Adequate for Care Transition Flowsheets (Taken 06/01/2024 1110) Progress: improving Plan of Care Reviewed With: patient Goal: Patient-Specific Goal (Individualized) Outcome: Adequate for Care Transition Goal: Absence of Hospital-Acquired Illness or Injury Outcome: Adequate for Care Transition Goal: Optimal Comfort and Wellbeing Outcome: Adequate for Care Transition Goal: Readiness for Transition of Care Outcome: Adequate for Care Transition Problem: Mobility Impairment Goal: Optimal Mobility Outcome: Adequate for Care Transition Problem: Self-Care Deficit Goal: Improved Ability to Complete Activities of Daily Living Outcome: Adequate for Care Transition * Progress Notes - Florecita Suh RN - 05/31/2024 2:27 PM EDT Case Management Adult Progress Note Kassy Cline 64 y.o. female CSN: [id number] Admission: 05/23/2024 6:14 AM Primary Problem: Fall at home, initial encounter Anticipated Discharge Date: TBD CM left voicemail with admissions and business office at [facility] to confirm patient may return when transportation is able to be arranged. Awaiting return call. Florecita Suh, RN * Progress Notes - Felicity Thomas APRN - 05/31/2024 11:49 AM EDT 05/31/24 Kassy Cline HPI Kassy Cline is a 64 y.o. female presenting with a complex past medical history of CKD stage 3, atrial fibrillation on eliquis, COPD (intermittent 2L at baseline), CHF, hypertension, hyperlipidemia, presenting to the on 05/23 as a transfer from OSH due to experiencing a ground level fall the day prior. Injuries include: L IT fx 05/24: ORIF of L IT with CMN Interval: Patient sitting up in bed. NAD. VSS. Tolerating 2L NC. Patient states she slept overnight. Tolerating po diet. Leukocytosis slightly improved. Will ctm for downtrend. Encouraged aggressive pulm hygiene. Discussed plan of care with patient/family, attending, DENEEN, RN, consulting teams. No further concerns at this time. Edited by: Felicity Thomas, PRIYA at 05/31/2024 1149 Relevant review of systems was obtained as able and is negative unless stated above in HPI. Vital signs: Vitals: 05/31/24 0732 BP: 130/65 Pulse: 86 Resp: Temp: 36.6 ??C (97.8 ??F) SpO2: Physical Exam Constitutional: General: She is not in acute distress. Appearance: She is not ill-appearing or diaphoretic. HENT: Head: Normocephalic. Nose: Nose normal. Mouth/Throat: Mouth: Mucous membranes are dry. Eyes: Extraocular Movements: Extraocular movements intact. Conjunctiva/sclera: Conjunctivae normal. Cardiovascular: Rate and Rhythm: Normal rate. Pulmonary: Effort: Pulmonary effort is normal. No respiratory distress. Breath sounds: Rales: bilateral lungs. Abdominal: General: There is no distension. Palpations: Abdomen is soft. Tenderness: There is no abdominal tenderness. There is no guarding. Musculoskeletal: General: Tenderness (LLE) and signs of injury (LLE) present. Comments: ARTUR wrap on LLE Skin: General: Skin is warm and dry. Neurological: Mental Status: She is alert. Mental status is at baseline. Sensory: No sensory deficit. Motor: Weakness (generalized) present. Psychiatric: Behavior: Behavior normal. Thought Content: Thought content normal. No intake or output data in the 24 hours ending 05/31/24 1150 Lines/Drains/Tubes: Patient Lines/Drains/Airways Status Active Airway None Output by Drain (mL) 05/29/24 07 - 05/29/24 18505/29/24 1900 - 05/30/24 0659 05/30/24 07 - 05/30/24 18505/30/241899 - 05/31/24 0659 05/31/24 07 - 05/31/24 1150 Requested LDAs do not have output data documented. Labs in last 18 hours: CBC WBC 14.56 (H) Hb 9.8 (L) Plt 341 Hct 32.6 (L) ANC ?? INR ??, PTT ??, Anti-Xa ?? MCV 83 BMP Na 139 Cl 105 BUN 95 (H) Glu 142 (H) K 5.2 (H) Co2 22 Cr 1.99 (H) Ca 8.9 iCa ?? Mg ??, Phos ?? Lactate ?? LFT AST ?? AlkPhos ?? T Prot ?? ALK ?? Bili ?? Alb ?? D.Bili ?? Lab Trends: H/H Results from last 7 days Lab Units 05/31/243 05/30/24 0003 05/29/24 0350 HEMOGLOBIN g/dL 9.8* 9.9* 9.5* HEMATOCRIT % 32.6* 31.6* 30.2* INR Cr Results from last 7 days Lab Units 05/31/243 05/30/24 0003 05/29/24 0350 CREATININE mg/dL 1.99* 1.48* 1.39* Medications reviewed. Vital signs reviewed. Labs reviewed. Radiography reviewed. Assessment and Plan: Medical Problems and Relevant Plans Hospital Problems POA * (Principal) Fall at home, initial encounter Not Applicable Overview Addendum 05/27/2024 6:43 PM by Dick Pittman PA Admit SGT ICU Tertiary, ITSS, AUDIT-C completed 05/24 Essential hypertension Yes Overview Signed 05/26/2024 12:02 PM by Rukhsana Dawkins APRN Resume home meds as appropriate Atrial fibrillation (CMS/HCC) Yes Overview Addendum 05/30/2024 3:44 PM by Lauren Vanessa PA Resume home meds as appropriate Switched to enoxaparin from subcutaneous heparin d/t downtrending RAGHAV 05/29: Pt went into afib w/ RVR, back into SR ~4 hours later CHF (congestive heart failure) (CMS/HCC) Yes Overview Signed 05/26/2024 12:02 PM by Rukhsana Dawkins APRN Resume home meds as appropriate Cirrhosis (CMS/HCC) Yes Overview Signed 05/26/2024 12:02 PM by Rukhsana Dawkins APRN Resume home meds as appropriate COPD (chronic obstructive pulmonary disease) (CMS/HCC) Yes Overview Addendum 05/29/2024 10:51 AM by Lauren Vanessa PA On home 2L NC COPD exacerbation tx this hospitalization Prednisone through 05/29 Diabetic neuropathy (CMS/HCC) Yes Overview Signed 05/26/2024 12:00 PM by Rukhsana Dawkins APRN Resume home meds as appropriate Hyperlipidemia Yes Overview Signed 05/28/2024 2:50 PM by Lauren Vanessa PA Resume home meds as appropriate Leukocytosis Yes Overview Signed 05/30/2024 3:45 PM by Lauren Vanessa PA Most likely d/t steroid course for COPD exacerbation CTM Closed intertrochanteric fracture of left femur Yes Overview Addendum 05/29/2024 10:51 AM by Lauren Vanessa PA ORF consult, s/p CMN 05/24 LLE WBAT Follow up in [facility] with Bing Byers on 06/12 Hyperkalemia Yes Overview Addendum 05/29/2024 10:52 AM by Lauren Vanessa PA -5.4 on arrival -Continue to monitor, resume home lokelma -05/28: 1x 10mg Lokelma dose for K 5.1 [id number] kidney injury (CMS/HCC) Yes Overview Addendum 05/30/2024 3:49 PM by Lauren Vanessa PA Cr 2.92 on arrival, Baseline ~ 2.4 Avoid nephrotoxic agents as able and renally dose medications IVF resuscitation as needed Frailty Yes Overview Signed 05/23/2024 11:51 AM by Rubén Martin MD Weak and wheelchair bound Gait disturbance Yes Type 2 diabetes mellitus Yes Overview Signed 05/26/2024 12:02 PM by Rukhsana Dawkins APRN SSI/CC2 diet as appropriate Acute respiratory failure Yes Overview Addendum 05/30/2024 3:45 PM by Lauren Vanessa PA Wean O2 as able 1L NC Anxiety and depression Yes Overview Signed 05/26/2024 12:00 PM by Rukhsana Dawkins APRN Resume home meds as appropriate Current use of long filler cigar roller machine anticoagulation Not Applicable Overview Signed 05/27/2024 11:33 AM by Rukhsana Dawkins APRN Resume home eliquis upon discharge Non-Hospital Problems GERD (gastroesophageal reflux disease) Suicide attempt by drug ingestion, initial encounter ([facility]) Hepatitis B Hepatitis C History of DVT (deep vein thrombosis) IBS (irritable bowel syndrome) Nicotine dependence Restless legs syndrome Sleep apnea, obstructive TIA (transient ischemic attack) Plan: - ORT: LLE WBAT - MMPC, increased oxycodone frequency - Aggressive pulmonary hygiene, nebs, IS, Mucinex - Glycemic control; titrate insulin -DVT ppx; will need to resume AC on discharge -WBC downtrending Dispo: Subacute rehab Edited by: Felicity Thomas APRN at 05/31/2024 1149 Felicity Thomas APRN * Care Plan - Melany Jon RN - 05/31/2024 10:47 AM EDT Problem: Adult Inpatient Plan of Care Goal: Optimal Comfort and Wellbeing Outcome: Ongoing, Progressing Problem: Adult Inpatient Plan of Care Goal: Readiness for Transition of Care Outcome: Ongoing, Progressing * Care Plan - Deidra Lee RN - 05/31/2024 5:09 AM EDT Problem: Adult Inpatient Plan of Care Goal: Plan of Care Review Outcome: Ongoing, Progressing Goal: Patient-Specific Goal (Individualized) Outcome: Ongoing, Progressing Goal: Absence of Hospital-Acquired Illness or Injury Outcome: Ongoing, Progressing Goal: Optimal Comfort and Wellbeing Outcome: Ongoing, Progressing Goal: Readiness for Transition of Care Outcome: Ongoing, Progressing * Query Clarification Note - Ashli Whitaker MD - 05/30/2024 5:29 PM EDT Physician Clarification Based on your medical judgment, can you further clarify in the progress notes the cause of these systemic findings in the progress notes such as: []Sepsis []Severe Sepsis with organ dysfunction (specify AHRF, RAGHAV, etc) [x]A localized infection only (please specify) Pneumonia []Non-infectious SIRS []Another condition (please specify) Please further specify: [x]Present on admission []Occurred after admission []Unable to determine This documentation will become part of the patient's medical record. * Progress Notes - Lauren Vanessa PA - 05/30/2024 3:49 PM EDT 05/30/24 Kassy Cline HPI Kassydaryl Cline is a 64 y.o. female presenting with a complex past medical history of CKD stage 3, atrial fibrillation on eliquis, COPD (intermittent 2L at baseline), CHF, hypertension, hyperlipidemia, presenting to the on 05/23 as a transfer from OSH due to experiencing a ground level fall the day prior. Injuries include: L IT fx 05/24: ORIF of L IT with CMN Interval: Patient sitting up in bed. NAD. NAEON. VSS. On 1L NC, no SOA. Endorses pain in LLE. Will increase oxycodone to home dosage. Endorses not sleeping in 4 days, will add melatonin and PRN trazodone. Tolerating PO diet, denies N/V, abd pain. Last BM 05/28. Voiding spontaneously. Increase in WBC, could be d/t steroid use for COPD exacerbation. Will CTM. Mobilizing as able. Pulling 500 on IS. No further questions or concerns per patient. Edited by: Lauren Vanessa PA at 05/30/2024 1536 Relevant review of systems was obtained as able and is negative unless stated above in HPI. Vital signs: Vitals: 05/30/24 1533 BP: 118/69 Pulse: 75 Resp: Temp: 36.8 ??C (98.3 ??F) SpO2: 96% Physical Exam Constitutional: General: She is not in acute distress. Appearance: She is not ill-appearing or diaphoretic. HENT: Head: Normocephalic. Nose: Nose normal. Mouth/Throat: Mouth: Mucous membranes are dry. Eyes: Extraocular Movements: Extraocular movements intact. Conjunctiva/sclera: Conjunctivae normal. Cardiovascular: Rate and Rhythm: Normal rate. Pulmonary: Effort: Pulmonary effort is normal. No respiratory distress. Breath sounds: Rales (bilateral lungs) present. Abdominal: General: There is no distension. Palpations: Abdomen is soft. Tenderness: There is no abdominal tenderness. There is no guarding. Musculoskeletal: General: Tenderness (LLE) and signs of injury (LLE) present. Comments: ARTUR wrap on LLE Skin: General: Skin is warm and dry. Neurological: Mental Status: She is alert. Mental status is at baseline. Sensory: No sensory deficit. Motor: Weakness (generalized) present. Psychiatric: Behavior: Behavior normal. Thought Content: Thought content normal. Intake/Output Summary (Last 24 hours) at 05/30/2024 1550 Last data filed at 05/30/2024 0600 Gross per 24 hour Intake 240 ml Output 1450 ml Net -1210 ml Lines/Drains/Tubes: Patient Lines/Drains/Airways Status Active Airway None Output by Drain (mL) 05/28/24 07 - 05/28/24 1859 05/28/24 1900 - 05/29/24 0659 05/29/24 0700 - 05/29/24 1859 05/29/24 1900 - 05/30/24 0659 05/30/24 0700 - 05/30/24 1550 Requested LDAs do not have output data documented. Labs in last 18 hours: CBC WBC 15.74 (H) Hb 9.9 (L) Plt 312 Hct 31.6 (L) ANC ?? INR ??, PTT ??, Anti-Xa ?? MCV 80 BMP Na 141 Cl 104 BUN 88 (H) Glu 255 (H) K 4.9 Co2 23 Cr 1.48 (H) Ca 9.0 iCa ?? Mg ??, Phos ?? Lactate ?? LFT AST ?? AlkPhos ?? T Prot ?? ALK ?? Bili ?? Alb ?? D.Bili ?? Lab Trends: H/H Results from last 7 days Lab Units 05/30/24 0003 05/29/24 0350 05/28/24 0246 HEMOGLOBIN g/dL 9.9* 9.5* 9.3* HEMATOCRIT % 31.6* 30.2* 30.3* INR Results from last 7 days Lab Units 05/24/24 0017 INR 1.5* Cr Results from last 7 days Lab Units 05/30/24 0003 05/29/24 0350 05/28/24 0246 CREATININE mg/dL 1.48* 1.39* 1.50* Medications reviewed. Vital signs reviewed. Labs reviewed. Radiography reviewed. Assessment and Plan: Medical Problems and Relevant Plans Hospital Problems POA * (Principal) Fall at home, initial encounter Not Applicable Overview Addendum 05/27/2024 6:43 PM by Dick Pittman PA Admit SGT ICU Tertiary, ITSS, AUDIT-C completed 05/24 Essential hypertension Yes Overview Signed 05/26/2024 12:02 PM by Rukhsana Dawkins APRN Resume home meds as appropriate Atrial fibrillation (CMS/HCC) Yes Overview Addendum 05/30/2024 3:44 PM by Lauren Vanessa PA Resume home meds as appropriate Switched to enoxaparin from subcutaneous heparin d/t downtrending RAGHAV 05/29: Pt went into afib w/ RVR, back into SR ~4 hours later CHF (congestive heart failure) (CMS/HCC) Yes Overview Signed 05/26/2024 12:02 PM by Rukhsana Dawkins APRN Resume home meds as appropriate Cirrhosis (CMS/HCC) Yes Overview Signed 05/26/2024 12:02 PM by Rukhsana Dawkins APRN Resume home meds as appropriate COPD (chronic obstructive pulmonary disease) ([facility]/HCC) Yes Overview Addendum 05/29/2024 10:51 AM by Lauren Vanessa PA On home 2L NC COPD exacerbation tx this hospitalization Prednisone through 05/29 Diabetic neuropathy ([facility]) Yes Overview Signed 05/26/2024 12:00 PM by Rukhsana Dawkins APRN Resume home meds as appropriate Hyperlipidemia Yes Overview Signed 05/28/2024 2:50 PM by Lauren Vanessa PA Resume home meds as appropriate Leukocytosis Yes Overview Signed 05/30/2024 3:45 PM by Lauren Vanessa PA Most likely d/t steroid course for COPD exacerbation CTM Closed intertrochanteric fracture of left femur Yes Overview Addendum 05/29/2024 10:51 AM by Lauren Vanessa PA ORF consult, s/p CMN 05/24 LLE WBAT Follow up in [facility] with Bing Byers on 06/12 Hyperkalemia Yes Overview Addendum 05/29/2024 10:52 AM by Lauren Vanessa PA -5.4 on arrival -Continue to monitor, resume home lokelma -05/28: 1x 10mg Lokelma dose for K 5.1 Lomtj-da-fffjcqf kidney injury ([facility]) Yes Overview Addendum 05/30/2024 3:49 PM by Lauren Vanessa PA Cr 2.92 on arrival, Baseline ~ 2.4 Avoid nephrotoxic agents as able and renally dose medications IVF resuscitation as needed Frailty Yes Overview Signed 05/23/2024 11:51 AM by Rubén Martin MD Weak and wheelchair bound Gait disturbance Yes Type 2 diabetes mellitus Yes Overview Signed 05/26/2024 12:02 PM by Rukhsana Dawkins APRN SSI/CC2 diet as appropriate Acute respiratory failure Yes Overview Addendum 05/30/2024 3:45 PM by Lauren Vanessa PA Wean O2 as able 1L NC Anxiety and depression Yes Overview Signed 05/26/2024 12:00 PM by Rukhsana Dawkins APRN Resume home meds as appropriate Current use of custodial anticoagulation Not Applicable Overview Signed 05/27/2024 11:33 AM by Rukhsana Dawkins APRN Resume home eliquis upon discharge Non-Hospital Problems GERD (gastroesophageal reflux disease) Suicide attempt by drug ingestion, initial encounter ([facility]) Hepatitis B Hepatitis C History of DVT (deep vein thrombosis) IBS (irritable bowel syndrome) Nicotine dependence Restless legs syndrome Sleep apnea, obstructive TIA (transient ischemic attack) Plan: - ORT: LLE WBAT - MMPC, increased oxycodone to home dosage - Aggressive pulmonary hygiene, nebs, IS, Mucinex - Glycemic control; increase insulin - Switched to enoxaparin from subcutaneous heparin, will need to resume AC on discharge - AM labs reviewed, WBC 15.74, may be d/t prednisone course; AM labs ordered Dispo: Subacute rehab Edited by: Lauren Vanessa PA at 05/30/2024 1550 AV[facility] Shields * Progress Notes - Florecita Suh RN - 05/30/2024 2:09 PM EDT Case Management Adult Progress Note Kassy Cline 64 y.o. female CSN: [id number] Admission: 05/23/2024 6:14 AM Primary Problem: Fall at home, initial encounter Anticipated Discharge Date: TBD Patient is LTC resident at [facility]. CM placed call to facility and referral was faxed to [phone]. Subacute recs. Florecita Suh RN * Progress Notes - Mariam Jacobo, PT - 05/30/2024 11:12 AM EDT PHYSICAL THERAPY TREATMENT PATIENT DATA Patient Name Kassy Cline Session Date 05/30/2024 Total Treatment Time 27 min PT Discharge Recommendations Subacute rehab Equipment Recommendations Defer to facility PRECAUTIONS Weight Bearing Precautions (if applicable) Left Lower Extremity Weight Bearing Status: Weight Bearing as Tolerated ROM Restrictions (if applicable) Medical Precautions Medical Precautions: Fall precautions HOME LIVING/SET-UP Lives With [facility] (for the last 5 months) Home Equipment Cane, Wheelchair-manual, Rolling walker Home Layout One level Bathroom Layout Standard Additional Comments Getting physical therapy 3x/week at nursing facility. PRIOR LEVEL OF FUNCTION Receives help from Caregiver Level of Mobility Wheelchair/Scooter Mobility [place] Independent wheelchair propulsion History of Falls Yes (reason for admission, no other falls in the last 6 months) ADL Performance Needs assistance Needs device and assist (sitting to shower, supervision for safety) Independent Independent Independent Needs device (wheelchair into the bathroom, transferring herself on/off the commode) Unable to perform PRESENTATION Oxygen Supplemental oxygen Nasal cannula 1 L/min Lines and Tubes Female External Urinary Catheter 05/26/24 0600 (Active) Peripheral IV 05/29/24 Posterior;Right Forearm (Active) Telemetry Pulse oximeter SCDS to RLE only Pre-Session Supine, Head of bed elevated, Lines intact RN agreeable to therapy treatment. Post-Session Sitting in chair, Lines intact, RN notified, Call light in reach, SCDs applied, Chair alarm (SCDS to RLE only) Patient reclined and positioned for comfort with needs in reach + RN aware of session details. Bracing (if applicable) SUBJECTIVE PARTICIPANTS IN CARE Patient/Caregiver Comments Patient agreeable to PT treatment. I need to go to the bathroom. Visitors Present No Mining Analyst (if applicable) N/A OBJECTIVE Vital Signs Pre-Session Post-Session Heart Rate (BPM) 75 76 O2 Saturation (%) 95 97 Blood Pressure (mmHG) --- 109 / 72 Resp Rate (BPM) 21 22 PAIN Patient reports 10/10 pain in her left leg and back. Patient had pain meds earlier and she stated they didn't help. Patient rated pain 9/10 at the end of the session. RN aware. DELIRIUM SCREENING Andre Agitation Sedation Scale (RASS): Alert and calm Confusion Assessment Method-ICU (CAM-ICU/PCAM-ICU) Feature 3: Altered Level of Consciousness: Negative INTERVENTIONS THERAPEUTIC ACTIVITY Treatment Minutes 27 Interventions Patient participated in PT interventions targeting strength, endurance, range of motion, and balance to improve functional mobility and activity. See bed mobility, transfers, ambulation, and balance sections for details. Additional time required for line management and room set-up for safe mobility. Patient's vital signs monitored continuously for signs of intolerance to activity throughout session. BED MOBILITY Level of [place] Physical/Non- physical Assist Adaptive Equipment Utilized Rolling/ Turning Scooting/ Bridging Moderate assist (50% patient's effort) (to scoot out to EOB with PIPE THREADING MACHINE OPERATOR + drawsheet & Depto scoot patient back into recliner chair with drawsheet) Verbal Cues, Additional assist utilized for safety Supine to Sit Minimum assist (75% patient's effort) (for LLE management) Verbal Cues, HOB elevated,Additional assist utilized for safety, Moderate cues Bed rails (extra time) Sit to Supine Interventions TRANSFERS Level of [place] Physical/Non- physical Assist Adaptive Equipment Utilized Sit to Stand Moderate assist (50% patient's effort) Verbal Cues, Nonverbal cues (demo/gestures), Additional assist utilized for safety Walker, rolling Stand to sit Moderate assist (50% patient's effort) Verbal Cues, Nonverbal cues (demo/gestures), Additional assist utilized for safety Walker, rolling Bed to Chair Toilet Transfer Moderate assist (50% patient's effort) Stand-pivot, To bedside commode Verbal Cues,Additional assist utilized for safety, Nonverbal cues (demo/gestures), Maximal cues Hand held assist Patient dependent with pericare. Shower Transfer Interventions BALANCE Interventions Postural Appearance Posture: Stooped posture, Forward head, Rounded shoulders Level of [place] Balance Support Interventions Static Sit Standby assist Right upper extremity support, Left upper extremity support, Feet supported Dynamic Sit Contact guard Right upper extremity support, Left upper extremity support, Feet supported Dynamic Sitting-Balance: Lateral weight shifts, Anterior/Posterior weight shifts Patient able to help partially bridge self pushing through her RLE in recliner chair in order for PT to get a new purewick positioned and brief secured. Static Stand Minimum assistance Right upper extremity support, Left upper extremity support (RW or PIPE THREADING MACHINE OPERATOR x 2) Stood at RW while RN cleaned patient up after she had a BM in BS. Patient dependent to doff brief once at [facility]. Dynamic Stand Moderate assistance Right upper extremity support, Left upper extremity support (RW) Lateral weight shifts, Anterior/Posterior weight shifts AMBULATION Level of [place] Distance Adaptive Equipment Utilized Ambulation Moderate assistance, Moderate verbal cues, Moderate tactile cues, Additional assist utilized for safety Patient able to take 3-4 small side steps from BSC to recliner chair Rolling walker Comments Defer further ambulation due to pain and fatigue. THERAPEUTIC EXERCISE Interventions Patient too fatigued to complete HEP, but reports she will do it later in the day after she has rested. ASSESSMENT Patient with improved bed mobility and able to progress to stand pivot transfer towards her stronger right leg onto BSC. Patient with very forward flexed posture once standing at RW from BSC, but able to stand upright with verbal and tactile cues and was also able to progress to taking some small side steps this date. Patient initially not wanting to put any weight on LLE during pivot transfer due to pain despite being WBAT, but gradually used LLE to help support herself and take some steps. Patient fatigues quickly and remains a fall risk. Recommend assist x 2 to safely progress mobility. Encourage increased ambulation distances with a chair follow. Pain and fatigue primarily limiting factors. RPE = 7.5/10 after transfers bed > BSC > chair. Patient did better using RW vs PIPE THREADING MACHINE OPERATOR x 2. Patient partially met Goal # 1 and met Goal # 3 today. 2 new goals added. PT RECOMMENDATIONS Discharge Destination Subacute rehab Discharge Equipment Defer to facility PLAN Continue with established PT plan of care 2 - 5 times per week to progress towards PT goals. PT GOALS PT GOAL DETAILS Goal Established Date Time Frame Goal Status PT Goal 1: Patient will complete supine <> sit with Mod assist 05/25/24 2 weeks Goal partially met PT Goal 2: Patient will tolerate sitting edge of bed for 5 minutes with vitals remaining stable 05/25/24 2 weeks PT Goal 3: Patient will complete STS and BTC transfer with Max assist and AAD 05/25/24 2 weeks Goalmet PT Goal 4: Patient will transfer sit < > stand with Min A to ease caregiver burden. 05/30/24 2 weeks PT Goal 5: Patient will ambulate 25' with RW CGA to access bathroom. 05/30/24 2 weeks Written by Mariam Jacobo, PT on 05/30/24 at 3:24 PM. * Care Plan - Alexis Roche RN - 05/30/2024 9:54 AM EDT Problem: Infection Goal: Absence of Infection Signs and Symptoms Outcome: Ongoing, Progressing Problem: Adult Inpatient Plan of Care Goal: Plan of Care Review Outcome: Ongoing, Progressing Goal: Patient-Specific Goal (Individualized) Outcome: Ongoing, Progressing Flowsheets (Taken 05/30/2024 0800) Patient/Family-Specific Goals (Include Timeframe): pt verbalizes adequate pain control this shift Goal: Absence of Hospital-Acquired Illness or Injury Outcome: Ongoing, Progressing Goal: Optimal Comfort and Wellbeing Outcome: Ongoing, Progressing Goal: Readiness for Transition of Care Outcome: Ongoing, Progressing * Care Plan - Deidra Lee RN - 05/29/2024 9:54 PM EDT Problem: Adult Inpatient Plan of Care Goal: Plan of Care Review Outcome: Ongoing, Progressing Goal: Patient-Specific Goal (Individualized) Outcome: Ongoing, Progressing Goal: Absence of Hospital-Acquired Illness or Injury Outcome: Ongoing, Progressing Goal: Optimal Comfort and Wellbeing Outcome: Ongoing, Progressing Goal: Readiness for Transition of Care Outcome: Ongoing, Progressing * Significant Event - Felicity Thomas APRN - 05/29/2024 4:25 PM EDT Metoprolol prn for A fib RVR; Small bolus given for net negative. Will ctm. * Consults - Ramona Fowler RD - 05/29/2024 12:19 PM EDT Adult Nutrition Evaluation Note Kassy Cline 64 y.o. female CSN: [id number] Room/Bed 222/222A Nutrition evaluation type: assessment Reason for evaluation: LOS Hospital course: 64 yo F s/p fall. Injuries include: L IT fx. S/p ORIF of L IT with CMN 05/24. Past medical/ surgical history: Medical History[1] Surgical History[2] Social history: Reviewed Additional comments: Vitals and Basic Assessment: BP: 118/64 Temp: 36.8 ??C (98.2 ??F) Oxygen Therapy: Supplemental oxygen O2 Delivery Method: Nasal cannula Gaurav Coma Scale Score: 15 Neymar Scale Score: 14 Abilio/Kyle Pressure Risk Score: 39 Most Recent BM Date: 05/28/24 GI Symptoms: None Edema: Left lower extremity Allergies: NKFA Medications: Meds were reviewed: Yes Labs: Results from last 7 days Lab Units 05/29/24 0350 05/28/24 0246 05/27/24 0046 05/26/24 0134 05/25/24 0025 SODIUM mmol/L 140 141 139 136 140 POTASSIUM mmol/L 4.8 5.1* 5.1* 4.8 4.6 CHLORIDE mmol/L 107 104 103 101 103 CO2 mmol/L 25 24 24 23 22 BUN mg/dL 88* 97* 105* 113* 108* CREATININE mg/dL 1.39* 1.50* 1.92* 2.42* 2.44* EGFR mL/min/1.73m*2 42.7 39.0 29.0 22.0 21.7 GLUCOSE mg/dL 221* 319* 281* 353* 223* CALCIUM mg/dL 8.8* 8.6* 8.4* 8.0* 8.2* PHOSPHORUS mg/dL -- -- 4.6* 5.4* 5.9* Lab Results Component Value Date ALBUMIN 3.1 (L) 05/23/2024 Lab Results Component Value Date HGBA1C 7.8 (H) 05/23/2024 Anthropometrics: Ht; 1.626 m (5' 4.02 ) Wt: 75 kg BMI: 28.37 Wt Evaluation: overweight. IBW: 54 kg %IBW :139 Adjusted Body Weight: 59 kg Weight History: Wt Readings from Last 7 Encounters: 05/26/24 75 kg (165 lb 5.5 oz) 09/26/22 60.8 kg (134 lb 0.6 oz) 07/08/22 62.1 kg (137 lb) 04/26/22 60.9 kg (134 lb 3.2 oz) 02/18/22 59 kg (130 lb) 10/15/21 70.3 kg (155 lb) 02/23/21 72.9 kg (160 lb 12.8 oz) Estimated Needs: Kcal: 1480 (kcal/d) Kcal/k Protein: ( g/d) Pro/kg: Based on: adjusted BW Current Nutrition Intake: Diet: CC2 diet. Supplements: Wali, Boost Glucose Control Intake: 0-100% x 11 meals (60%) I/o's: Intake/Output Summary (Last 24 hours) at 05/29/2024 1222 Last data filed at 05/29/2024 0800 Gross per 24 hour Intake 600 ml Output 2100 ml Net -1500 ml Nutrition Support:- Diet Experience & Nutrition History: Diet Education: Will monitor Pertinent Home Medications: Noted Metabolic Cart Study Results: Nutrition Focused Physical Exam: Physical exam performed on (date): Pending. Assessment of Malnutrition: Nutrition Problem:. Increased nutrient needs PRO related to Increased metabolic needs for healing as evidenced by s/p fall with fractures s/p OR. Status of Nutrition Diagnosis: New Nutrition Interventions and Recommendations: Cont with CC2 diet. Cont with Boost Glucose Control. MVI with minerals. Record PO intake. Nutrition Monitoring and Goals: Monitor tolerance and adequacy of po intake / enteral infusion, wt changes, bowel fxn, labs, skin integrity; and follow up per acuity Patient will consume >50% of most meals. Acuity Level: [address], LD [1] Past Medical History: Diagnosis Date Anxiety Atrial fibrillation (CMS/HCC) CHF (congestive heart failure) (CMS/HCC) Cirrhosis (CMS/HCC) CKD (chronic kidney disease) stage 3, GFR 30-59 ml/min (CMS/HCC) COPD (chronic obstructive pulmonary disease) (CMS/HCC) Depression Diabetic neuropathy (CMS/HCC) Essential (primary) hypertension GERD (gastroesophageal reflux disease) Hepatitis B Hepatitis C History of DVT (deep vein thrombosis) Hyperlipidemia IBS (irritable bowel syndrome) Mental disorder Nicotine dependence Restless legs syndrome Sleep apnea, obstructive TIA (transient ischemic attack) Type 2 diabetes mellitus without complications [2] Past Surgical History: Procedure Laterality Date APPENDECTOMY N/A CARDIAC STENT N/A CARPAL TUNNEL RELEASE N/A CHOLECYSTECTOMY N/A COLONOSCOPY N/A HYSTERECTOMY N/A LUNG, WEDGE RESECTION N/A THORACOSCOPY N/A TONSILLECTOMY N/A TUBAL LIGATION N/A * Progress Notes - Lauren Vanessa PA - 05/29/2024 10:49 AM EDT 05/29/24 Kassy THORNTON Kassy Cline is a 64 y.o. female presenting with a complex past medical history of CKD stage 3, atrial fibrillation on eliquis, COPD (intermittent 2L at baseline), CHF, hypertension, hyperlipidemia, presenting to the on 05/23 as a transfer from OSH due to experiencing a ground level fall the day prior. Injuries include: L IT fx 05/24: ORIF of L IT with CMN Interval: Patient sitting up in bed, eating breakfast. Comfortable and pleasant. NAD. NAEON. VSS. On 1L NC, endorses SOA. Satting 95%. Rales throughout bilateral lungs. Will order 1 dose of IV lasix.WBC increased to 11.65 from 9.95. Endorses pain in BLEs. Tolerating PO diet. Denies N/V, abd pain. Last BM 05/27. Voiding spontaneously. Mobilizing as able. Discussed anticipated hospital course. No further questions or concerns per patient. Edited by: Lauren Vanessa PA at 05/29/2024 0916 Relevant review of systems was obtained as able and is negative unless stated above in HPI. Vital signs: Vitals: 05/29/24 0847 BP: Pulse: Resp: 21 Temp: SpO2: 100% Physical Exam Constitutional: General: She is not in acute distress. Appearance: She is not ill-appearing or diaphoretic. HENT: Head: Normocephalic. Nose: Nose normal. Mouth/Throat: Mouth: Mucous membranes are dry. Eyes: Extraocular Movements: Extraocular movements intact. Conjunctiva/sclera: Conjunctivae normal. Cardiovascular: Rate and Rhythm: Normal rate. Pulmonary: Effort: Pulmonary effort is normal. No respiratory distress. Breath sounds: Rales (bilateral lungs) present. Abdominal: General: There is no distension. Palpations: Abdomen is soft. Tenderness: There is no abdominal tenderness. There is no guarding. Musculoskeletal: General: Tenderness (BLEs) and signs of injury (LLE) present. Comments: ARTUR wrap on LLE Skin: General: Skin is warm and dry. Neurological: Mental Status: She is alert. Mental status is at baseline. Sensory: No sensory deficit. Motor: Weakness (generalized) present. Psychiatric: Behavior: Behavior normal. Thought Content: Thought content normal. Intake/Output Summary (Last 24 hours) at 05/29/2024 1055 Last data filed at 05/29/2024 0800 Gross per 24 hour Intake 840 ml Output 2100 ml Net -1260 ml Lines/Drains/Tubes: Patient Lines/Drains/Airways Status Active Airway None Output by Drain (mL) 05/27/24 0700 - 05/27/24 1859 05/27/24 1900 - 05/28/24 0659 05/28/24 0700 - 05/28/24 1859 05/28/24 1900 - 05/29/24 0659 05/29/24 0700 - 05/29/24 1055 Requested LDAs do not have output data documented. Labs in last 18 hours: CBC WBC 11.65 (H) Hb 9.5 (L) Plt 287 Hct 30.2 (L) ANC ?? INR ??, PTT ??, Anti-Xa ?? MCV 81 BMP Na 140 Cl 107 BUN 88 (H) Glu 221 (H) K 4.8 Co2 25 Cr 1.39 (H) Ca 8.8 (L) iCa ?? Mg ??, Phos ?? Lactate ?? LFT AST ?? AlkPhos ?? T Prot ?? ALK ?? Bili ?? Alb ?? D.Bili ?? Lab Trends: H/H Results from last 7 days Lab Units 05/29/24 0350 05/28/24 0246 05/26/24 0134 HEMOGLOBIN g/dL 9.5* 9.3* 8.3* HEMATOCRIT % 30.2* 30.3* 27.2* INR Results from last 7 days Lab Units 05/24/24 0017 05/23/24 0652 INR 1.5* 1.6* Cr Results from last 7 days Lab Units 05/29/24 0350 05/28/24 0246 05/27/24 0046 CREATININE mg/dL 1.39* 1.50* 1.92* Medications reviewed. Vital signs reviewed. Labs reviewed. Radiography reviewed. Assessment and Plan: Medical Problems and Relevant Plans Hospital Problems POA * (Principal) Fall at home, initial encounter Not Applicable Overview Addendum 05/27/2024 6:43 PM by Dick Pittman PA Admit SGT ICU Tertiary, ITSS, AUDIT-C completed 05/24 Essential hypertension Yes Overview Signed 05/26/2024 12:02 PM by Rukhsana Dawkins APRN Resume home meds as appropriate Atrial fibrillation ([facility]/HCC) Yes Overview Addendum 05/28/2024 2:49 PM by Lauren Vanessa PA Resume home meds as appropriate Switched to enoxaparin from subcutaneous heparin d/t downtrending RAGHAV CHF (congestive heart failure) (CMS/HCC) Yes Overview Signed 05/26/2024 12:02 PM by Rukhsana Dawkins APRN Resume home meds as appropriate Cirrhosis (CMS/HCC) Yes Overview Signed 05/26/2024 12:02 PM by Rukhsana Dawkins APRN Resume home meds as appropriate COPD (chronic obstructive pulmonary disease) (CMS/HCC) Yes Overview Addendum 05/29/2024 10:51 AM by Lauren Vanessa PA On home 2L NC COPD exacerbation tx this hospitalization Prednisone through 05/29 Diabetic neuropathy ([facility]/HCC) Yes Overview Signed 05/26/2024 12:00 PM by Rukhsana Dawkins APRN Resume home meds as appropriate Hyperlipidemia Yes Overview Signed 05/28/2024 2:50 PM by Lauren Vanessa PA Resume home meds as appropriate Closed intertrochanteric fracture of left femur Yes Overview Addendum 05/29/2024 10:51 AM by Lauren Vanessa PA ORF consult, s/p CMN 05/24 LLE WBAT Follow up in [facility] with Bing Byers on 06/12 Hyperkalemia Yes Overview Addendum 05/29/2024 10:52 AM by aLuren Vanessa PA -5.4 on arrival -Continue to monitor, resume home lokelma -05/28: 1x 10mg Lokelma dose for K 5.1 [id number] kidney injury (CMS/HCC) Yes Overview Addendum 05/26/2024 11:54 AM by Rukhsana Dawkins APRN Cr 2.92 on arrival, Baseline ~ 1.1 Avoid nephrotoxic agents as able and renally dose medications IVF resuscitation as needed Frailty Yes Overview Signed 05/23/2024 11:51 AM by Rubén Martin MD Weak and wheelchair bound Gait disturbance Yes Type 2 diabetes mellitus Yes Overview Signed 05/26/2024 12:02 PM by Rukhsana Dawkins APRN SSI/CC2 diet as appropriate Acute respiratory failure Yes Overview Signed 05/26/2024 11:58 AM by Rukhsana Dawkins APRN Wean O2 as able Anxiety and depression Yes Overview Signed 05/26/2024 12:00 PM by Rukhsana Dawkins APRN Resume home meds as appropriate Current use of long filler cigar roller machine anticoagulation Not Applicable Overview Signed 05/27/2024 11:33 AM by Rukhsana Dawkins APRN Resume home eliquis upon discharge Closed fracture of left hip (CMS/HCC) Unknown Non-Hospital Problems GERD (gastroesophageal reflux disease) Suicide attempt by drug ingestion, initial encounter (CMS/HCC) Hepatitis B Hepatitis C History of DVT (deep vein thrombosis) IBS (irritable bowel syndrome) Nicotine dependence Restless legs syndrome Sleep apnea, obstructive TIA (transient ischemic attack) Plan: - ORT: F/u in ortho clinic on 06/12; LLE WBAT - MMPC - 1x IV lasix today for pulmonary congestion - Aggressive pulmonary hygiene, nebs, IS, Mucinex - Prednisone for COPD exac complete 05/29 - Glycemic control; increase insulin - Switched to enoxaparin from subcutaneous heparin, will need to resume AC on discharge - AM labs reviewed, K 4.8; ordered AM CBC Dispo: Subacute rehab Edited by: Lauren Vanessa PA at 05/29/2024 1049 AVNI Shields * Care Plan - Deidra Lee RN - 05/28/2024 11:02 PM EDT Problem: Adult Inpatient Plan of Care Goal: Plan of Care Review Outcome: Ongoing, Progressing Goal: Patient-Specific Goal (Individualized) Outcome: Ongoing, Progressing Goal: Absence of Hospital-Acquired Illness or Injury Outcome: Ongoing, Progressing Goal: Optimal Comfort and Wellbeing Outcome: Ongoing, Progressing Goal: Readiness for Transition of Care Outcome: Ongoing, Progressing * Progress Notes - Lauren Vanessa PA - 05/28/2024 4:09 PM EDT 05/28/24 Kassy Cline HPI Kassy Cline is a 64 y.o. female presenting with a complex past medical history of CKD stage 3, atrial fibrillation on eliquis, COPD (intermittent 2L at baseline), CHF, hypertension, hyperlipidemia, presenting to the on 05/23 as a transfer from OSH due to experiencing a ground level fall the day prior. Injuries include: L IT fx 05/24: ORIF of L IT with CMN Interval: Patient up in bedside chair, comfortable. NAD. NAEON. VSS. On 2L NC, no SOA. Endorses pain in BLEs. States her oxycodone has cut in half and that's not what she takes at home. Tolerating POdiet, denies N/V, abd pain. Last BM 05/28. ARTUR wrap in place on LLE. Discussed anticipated hospital course with patient. No further questions or concerns per patient. Edited by: Lauren Vanessa PA at 05/28/2024 1048 Relevant review of systems was obtained as able and is negative unless stated above in HPI. Vital signs: Vitals: 05/28/24 1514 BP: (!) 154/81 Pulse: 68 Resp: Temp: 36.8 ??C (98.2 ??F) SpO2: 96% Physical Exam Constitutional: General: She is not in acute distress. HENT: Head: Normocephalic. Nose: Nose normal. Mouth/Throat: Mouth: Mucous membranes are moist. Eyes: Extraocular Movements: Extraocular movements intact. Conjunctiva/sclera: Conjunctivae normal. Cardiovascular: Rate and Rhythm: Normal rate. Pulmonary: Effort: Pulmonary effort is normal. No respiratory distress. Breath sounds: Rales present. Abdominal: General: There is no distension. Palpations: Abdomen is soft. Tenderness: There is no abdominal tenderness. There is no guarding. Musculoskeletal: General: Tenderness (BLEs) and signs of injury (LLE) present. Comments: ARTUR wrap on LLE Skin: General: Skin is warm and dry. Neurological: Mental Status: She is alert. Mental status is at baseline. Sensory: No sensory deficit. Psychiatric: Behavior: Behavior normal. Thought Content: Thought content normal. Intake/Output Summary (Last 24 hours) at 05/28/2024 1610 Last data filed at 05/28/2024 1500 Gross per 24 hour Intake 600 ml Output 3400 ml Net -2800 ml Lines/Drains/Tubes: Patient Lines/Drains/Airways Status Active Airway None Output by Drain (mL) 05/26/24 0700 - 05/26/24 1859 05/26/24 1900 - 05/27/24 0659 05/27/24 0700 - 05/27/24 1859 05/27/24 1900 - 05/28/24 0659 05/28/24 0700 - 05/28/24 1610 Requested LDAs do not have output data documented. Labs in last 18 hours: CBC WBC 9.95 Hb 9.3 (L) Plt 249 Hct 30.3 (L) ANC ?? INR ??, PTT ??, Anti-Xa ?? MCV 81 BMP Na 141 Cl 104 BUN 97 (H) Glu 319 (H) K 5.1 (H) Co2 24 Cr 1.50 (H) Ca 8.6 (L) iCa 4.5 (L) Mg ??, Phos ?? Lactate ?? LFT AST ?? AlkPhos ?? T Prot ?? ALK ?? Bili ?? Alb ?? D.Bili ?? Lab Trends: H/H Results from last 7 days Lab Units 05/28/24 0246 05/26/24 0134 05/25/24 0025 HEMOGLOBIN g/dL 9.3* 8.3* 8.7* HEMATOCRIT % 30.3* 27.2* 28.4* INR Results from last 7 days Lab Units 05/24/24 0017 05/23/24 0652 INR 1.5* 1.6* Cr Results from last 7 days Lab Units 05/28/24 0246 05/27/24 0046 05/26/24 0134 CREATININE mg/dL 1.50* 1.92* 2.42* Medications reviewed. Vital signs reviewed. Labs reviewed. Radiography reviewed. Assessment and Plan: Medical Problems and Relevant Plans Hospital Problems POA * (Principal) Fall at home, initial encounter Not Applicable Overview Addendum 05/27/2024 6:43 PM by Dick Pittman PA Admit SGT ICU Tertiary, ITSS, AUDIT-C completed 05/24 Essential hypertension Yes Overview Signed 05/26/2024 12:02 PM by Rukhsana Dawkins APRN Resume home meds as appropriate Atrial fibrillation ([facility]/HCC) Yes Overview Addendum 05/28/2024 2:49 PM by Lauren Vanessa PA Resume home meds as appropriate Switched to enoxaparin from subcutaneous heparin d/t downtrending RAGHAV CHF (congestive heart failure) (CMS/HCC) Yes Overview Signed 05/26/2024 12:02 PM by Rukhsana Dawkins APRN Resume home meds as appropriate Cirrhosis (CMS/HCC) Yes Overview Signed 05/26/2024 12:02 PM by Rukhsana Dawkins APRN Resume home meds as appropriate COPD (chronic obstructive pulmonary disease) ([facility]/HCC) Yes Overview Addendum 05/28/2024 2:50 PM by Lauren Vanessa PA Reportedly on home 2L nasal cannula COPD exacerbation tx this hospitalization Prednisone through 05/29 Diabetic neuropathy ([facility]/HCC) Yes Overview Signed 05/26/2024 12:00 PM by Rukhsana Dawkins APRN Resume home meds as appropriate Hyperlipidemia Yes Overview Signed 05/28/2024 2:50 PM by Lauren Vanessa PA Resume home meds as appropriate Closed intertrochanteric fracture of left femur Yes Overview Addendum 05/27/2024 11:21 AM by Rukhsana Dawkins APRN ORF consult, s/p CMN 05/24 WB per ortho Follow up in [facility] with Bing Byers on 06/12 Hyperkalemia Yes Overview Addendum 05/26/2024 12:03 PM by Rukhsana Dawkins APRN -5.4 on arrival -Continue to monitor, resume home [facility] [id number] kidney injury ([facility]/HCC) Yes Overview Addendum 05/26/2024 11:54 AM by Rukhsana Dawkins APRN Cr 2.92 on arrival, Baseline ~ 1.1 Avoid nephrotoxic agents as able and renally dose medications IVF resuscitation as needed Frailty Yes Overview Signed 05/23/2024 11:51 AM by Rubén Martin MD Weak and wheelchair bound Gait disturbance Yes Type 2 diabetes mellitus Yes Overview Signed 05/26/2024 12:02 PM by Rukhsana Dawkins APRN SSI/CC2 diet as appropriate Acute respiratory failure Yes Overview Signed 05/26/2024 11:58 AM by Rukhsana Dawkins APRN Wean O2 as able Anxiety and depression Yes Overview Signed 05/26/2024 12:00 PM by Rukhsana Dawkins APRN Resume home meds as appropriate Current use of long filler cigar roller machine anticoagulation Not Applicable Overview Signed 05/27/2024 11:33 AM by Rukhsana Dawkins APRN Resume home eliquis upon discharge Closed fracture of left hip (CMS/HCC) Unknown Non-Hospital Problems GERD (gastroesophageal reflux disease) Suicide attempt by drug ingestion, initial encounter (CMS/[facility]) Hepatitis B Hepatitis C History of DVT (deep vein thrombosis) IBS (irritable bowel syndrome) Nicotine dependence Restless legs syndrome Sleep apnea, obstructive TIA (transient ischemic attack) Plan: - ORT: F/u in ortho clinic on 06/12; LLE WBAT - [facility] - Aggressive pulmonary hygiene, nebs, IS, Mucinex; AM CXR reviewed - Prednisone for COPD exac complete 05/29 - Glycemic control; increase insulin - Switched to enoxaparin from subcutaneous heparin, will need to resume AC on discharge - HyperK: ordered 1 dose Lokelma - AM labs reviewed, K 5.1; ordered AM labs Edited by: Lauren Vanessa PA at 05/28/2024 1459 AVNI Shields * Progress Notes - Florecita Suh RN - 05/28/2024 1:16 PM EDT Case Management Adult Progress Note Kassy Cline 64 y.o. female CSN: [id number] Admission: 05/23/2024 6:14 AM Primary Problem: Fall at home, initial encounter Anticipated Discharge Date: TBD Subacute recs. Per previous CM note, patient is a LTC resident at [place] and plan is for her to return when medically ready. Referral info sent to facility this date. Florecita Suh RN * Progress Notes - Mary Womack - 05/28/2024 12:02 PM EDT Physical Therapy Treatment Patient Name: Kassy Cline Today's Date: 05/28/2024 PT Discharge Recommendations: Subacute rehab Equipment Recommended: Defer to facility Subjective RN and patient agreed to physical therapy services this date. She stated I could be better. During session patient expressed dissatisfaction with night nurse and requesting to not have her again- informed patient SYSTEMS SECURITY ANALYST will inform RN to notify Charge Nurse to speak with her regarding her care. SYSTEMS SECURITY ANALYST informed RN via secure chat of patient's expressed request. Participants in Care Family/Caregiver Present: No Mining Analyst: Not Applicable Presentation Oxygen Therapy: Supplemental oxygen O2 Delivery Method: Nasal cannula O2 Flow Rate (L/min): 2 L/min Lines and Tubes: Female External Urinary Catheter 05/26/24 0600 (Active) Peripheral IV 05/26/24 Anterior;Left;Proximal Forearm (Active) Pulse oximeter, Telemetry Pre-Session: Sitting in chair, Lines intact Post-Session: Sitting in chair, Lines intact, RN notified, Call light in reach Post-Session Comments: Patient positioned for comfort and pressure relief following session with needs in reach. RN informed of session. Precautions Left Lower Extremity Weight Bearing Status: Weight Bearing as Tolerated Medical Precautions: Fall precautions Objective Pain Patient rated pain 9/10 in her LLE before session and 8/10 following session. Medicine for pain given earlier before therapy per patient. Positioned patient for comfort following session. Delirium Screening Andre Agitation Sedation Scale (RASS): Alert and calm Confusion Assessment Method-ICU (CAM-ICU/PCAM-ICU) Feature 3: Altered Level of Consciousness: Negative Therapeutic Activity (29 minutes) Patient participated in therapeutic activities including functional transfers and balance to improve strength, balance, endurance and independence with functional mobility. Verbal, visual, and tactile cues provided by therapist throughout session for sequencing, self pacing, fall prevention, pursedlip breathing, and proper body mechanics to improve safety and efficiency with functional mobility. Bed Mobility Patient in recliner chair upon arrival. Transfers Transfer Exam: Sit to stand Level of Z[place]: Maximum assist (25% patient's effort) Physical/Nonphysical Assist: Verbal Cues, Nonverbal cues (demo/gestures), Additional assist utilized for safety Assistive Device: Walker, rolling Transfer Exam: Stand to Sit Level of Z[place]: Maximum assist (25% patient's effort) Physical/Nonphysical Assist: Verbal Cues, Nonverbal cues (demo/gestures), Additional assist utilized for safety Assistive Device: Walker, rolling Patient performed seated scooting hips forward/backward in recliner chair with BUE support, SBA. Verbal and tactile cues provided on proper hand placement, proper foot placement shoulder width apart for improved base of support, and to anteriorly weight shift by rocking 3x for improved momentum to stand. Verbal cues provided to feel surface behind BLEs and ease into sitting for good eccentric control during stand to sit transfer onto recliner chair for improved safety. She completed 2 sit to stand transfers from the recliner chair. She achieved 50% during first standtolerating ~15 seconds and achieved 75% upright during second stand tolerating ~1 minute. Ambulation Not able to progress towards forward ambulation due to impaired balance and standing tolerance. Balance Static Sitting Balance Static Sitting-Balance Support: Right upper extremity support, Left upper extremity support, Feet supported Static Sitting-Level of Assistance: Standby assist (At edge of chair.) Dynamic Sitting Balance Dynamic Sitting-Balance Support: Right upper extremity support, Left upper extremity support, Feet supported Dynamic Sitting-Balance: Lateral weight shifts, Anterior/Posterior weight shifts Level of Assistance: Standby assisst Static Standing Balance Static Standing-Balance Support: Right upper extremity support, Left upper extremity support (Through RWx) Static Standing-Level of Assistance: Maximum assistance Patient was able to come to unsupported sitting in recliner chair with BUEs utilizing arm rests andmaintained sitting balance with SBA. She sat upright for seated exercises and education on transfers. During standing trials patient demonstrated a flexed posture at trunk/hips, rounded shoulders, and downward gaze. Verbal and tactile cues provided at pelvis and trunk to promote upright posture/extension and attain midline. Therapeutic Exercise (15 minutes) Patient provided with HEP to increase BLE strength and muscle endurance required to complete functional mobility. Patient provided with HEP handout that included visual demonstrations and written instructions. SYSTEMS SECURITY ANALYST provided verbal and tactile cues for proper technique and visual demonstration. Patient encouraged to complete HEP below as follows. Therapist ensured patient understood HEP, patient verbalized understanding and returned demonstration. Patient performed x5 reps with AROM. See [employer] HEP below. Access Code: [email or web address] URL: [email or web address] Date: 05/28/2024 Prepared by: [facility] Exercises - Supine Ankle Pumps - 2-3 x daily - 1 sets - 10 reps - Supine Quad Set - 2-3 x daily - 1 sets - 10 reps - 3 hold - Supine Gluteal Sets - 2-3 x daily - 1 sets - 10 reps - 3 hold - Seated Long Arc Quad - 2-3 x daily - 1 sets - 10 reps - Seated March - 2-3 x daily - 1 sets - 10 reps - Seated Hip Abduction - 2-3 x daily - 1 sets - 10 reps Assessment Patient tolerated session without adverse reaction. Patient up in the chair upon arrival and progressed towards standing with assist x2 during this PT treatment compared to last PT treatment. Patienthas the following impairments: impaired activity tolerance, gross functional weakness, impaired posture, impaired balance, and pain, which is limiting the patient from performing independent functional mobility. Patient is a fall risk. Will progress mobility as appropriate. Patient would continue to benefit from skilled PT services to decrease fall risk and promote independence with functional mobility, in order to maximize potential level of function. PT Recommendations Discharge Destination: Subacute rehab Discharge Equipment: Defer to facility Plan Continue with PT POC. PT Goals PT GOAL DETAILS Goal Established Date Time Frame Goal Status PT Goal 1: Patient will complete supine <> sit with Mod assist 05/25/24 2 weeks PT Goal 2: Patient will tolerate sitting edge of bed for 5 minutes with vitals remaining stable 05/25/24 2 weeks PT Goal 3: Patient will complete STS and BTC transfer with Max assist and AAD 05/25/24 2 weeks Written by Mary Womack on 05/28/24 at 3:16 PM. * Progress Notes - Roc Chavez - 05/28/2024 11:57 AM EDT Occupational Therapy Treatment Patient Name: Kassy Cline Today's Date: 05/28/2024 OT Discharge Recommendations: Subacute rehab Equipment Recommended: Defer to facility Subjective Pt agreeable to OT session this date. Participants in Care Family/Caregiver Present: No Mining Analyst: Not Applicable Presentation Oxygen Therapy: Supplemental oxygen O2 Delivery Method: Nasal cannula O2 Flow Rate (L/min): 2 L/min Female External Urinary Catheter 05/26/24 0600 (Active) Peripheral IV 05/26/24 Anterior;Left;Proximal Forearm (Active) Pre-Session: Sitting in chair, Lines intact Pre-Session Comments: RN notified and agreeable to session. Post-Session: Sitting in chair, Lines intact, RN notified, Call light in reach Post-Session Comments: All needs met. Precautions Left Lower Extremity Weight Bearing Status: Weight Bearing as Tolerated Medical Precautions: Fall precautions Objective Pain Pt reports 9/10 pain left LE at beginning of session, and 8/10 pain left LE at conclusion. Pt positioned for comfort in chair at conclusion of session, RN aware. Delirium Screening Andre Agitation Sedation Scale (RASS): Alert and calm Confusion Assessment Method-ICU (CAM-ICU/PCAM-ICU) Feature 3: Altered Level of Consciousness: Negative Cognition Cognition Overall Cognitive Status: Within Functional Limits Arousal/Alertness: Appropriate responses to stimuli Mood/Behavior: Alert Orientation Level: Oriented X4 Single Step Commands: Consistently Multi-Step Commands: Consistently Method of Communication: Verbal Transfers Transfer Exam: Sit to stand Level of Z[place]: Maximum assist (25% patient's effort) Physical/Nonphysical Assist: Verbal Cues, Nonverbal cues (demo/gestures), Additional assist utilized for safety Assistive Device: Walker, rolling Transfer Exam: Stand to Sit Level of Z[place]: Maximum assist (25% patient's effort) Physical/Nonphysical Assist: Verbal Cues, Nonverbal cues (demo/gestures), Additional assist utilized for safety Assistive Device: Walker, rolling Balance Postural Appearance Posture: Stooped posture, Forward head, Rounded shoulders Static Sitting Balance Static Sitting-Balance Support: Right upper extremity support, Left upper extremity support, Feet supported Static Sitting-Level of Assistance: Standby assist (At edge of chair) Dynamic Sitting Balance Dynamic Sitting-Balance Support: Right upper extremity support, Left upper extremity support, Feet supported Dynamic Sitting-Balance: Lateral weight shifts, Anterior/Posterior weight shifts Level of Assistance: Contact guard Static Standing Balance Static Standing-Balance Support: Right upper extremity support, Left upper extremity support Static Standing-Level of Assistance: Maximum assistance Self-Care Interventions Self Care/Home Management (ADLs) Time Entry: 38 Therapist challenged patient to complete simulated ADL routine needed for independence in toilieting, grooming routine, or home management tasks. Therapist facilitated safe environment for pt to engage in self-care tasks and functional mobility focused on strength and endurance, safety awareness, and energy conservation/pacing in preparation for sequential self-care tasks to increase independencewith ADL routines this date. Pt in chair on arrival and attempted to clement socks seated in chair requiring dependent assist due to impaired flexibility and external hip rotation due to pain. Pt completed STS transition x2 reps with Max A and with pt reaching 50% on first attempt and ~75% upright on second attempt. Pt in standing for ~1 min on second attempt for chux change, purewick change, and toplace brief under pt. Pt then completed seated ADL's scooted forward in chair forward flexed in unsupported position. Pt required verbal and tactile cues for hand placement/body positioning for safety, AD management, and PLB for pain management. Increased skilled time required for pacing/energy conservation, pain management, vitals check, and environment setup. Grooming Grooming Level of Assistance: Setup Grooming Where Assessed: Chair level (scooted forward and forward flexed in unsupported position.) Grooming Interventions: facial hygiene, hair brushing, oral care Lower Extremity Dressing Sock Level of Assistance: Dependent (due to pain and decreased hip external rotation limiting functional reach.) Adult Briefs Level of Assistance: Moderate assistance, Setup (to place bried while standing) LE Dressing Where Assessed: Chair level Toileting Toileting Level of Assistance: Dependent (for andreia-hygiene in standing position, and for purewick placement while standing requiring b/l UE support on RW.) Assessment Pt was polite, cooperative to instructions, and put forth good effort during OT treatment this date. Pt able to tolerate session well with improved performance from previous session evidence by increased functional mobility, ADL participation, and improved vitals with BP WNL. Pt continues to be limited by fatigue, weakness, impaired balance, impaired activity tolerance, and impaired functional mobility negatively impacting performance and independence with ADL routines and making pt a fall risk. Pt will benefit from continued skilled OT to improve deficits and increase independence with ADL/IADL tasks. OT Recommendations Discharge Destination: Subacute rehab Discharge Equipment: Defer to facility Plan Continue OT plan of care. Goals OT GOAL DETAILS Goal Established Date Time Frame Goal Status OT Goal 1: Pt will maintain sitting at EOB (in preparation for self-care engagement) for at least 8consecutive minutes with stable vitals. 05/25/24 2 weeks OT Goal 2: Pt will perform grooming activities in supported sitting with SBA x1. 05/25/24 2 weeks OT Goal 3: Pt will execute transfer to/from bedside commode with max A x1. 05/25/24 2 weeks OT Goal 4: Pt will participate in LB dressing (AE PRN) with max A x1. 05/25/24 Written by Roc Chavez on 05/28/24 at 3:36 PM. * Care Plan - Nadine Ahmadi RN - 05/27/2024 11:37 PM EDT Problem: Infection Goal: Absence of Infection Signs and Symptoms Outcome: Ongoing, Progressing Problem: Adult Inpatient Plan of Care Goal: Plan of Care Review Outcome: Ongoing, Progressing Goal: Patient-Specific Goal (Individualized) Outcome: Ongoing, Progressing Goal: Absence of Hospital-Acquired Illness or Injury Outcome: Ongoing, Progressing Goal: Optimal Comfort and Wellbeing Outcome: Ongoing, Progressing Goal: Readiness for Transition of Care Outcome: Ongoing, Progressing Problem: Mobility Impairment Goal: Optimal Mobility Outcome: Ongoing, Progressing * Significant Event - Dick Pittman PA - 05/27/2024 6:35 PM EDT [facility] Transfer Note Patient is being transferred from T ICU to T 2 on 05/27/24 Reason for transfer: Downgrade Level of Care Requested: Progressive Telemetry: Yes Pulse oximetry: Yes Hospital course: Kassy Cline is a 64 y.o. female presenting with a complex past medical historyof CKD stage 3, atrial fibrillation on eliquis, COPD (intermittent 2L at baseline), CHF, hypertension, hyperlipidemia, presenting to the on 05/23 as a transfer from OSH due to experiencing a ground level fall the day prior. Injuries include: L IT fx 05/24: ORIF of L IT with CMN Interval: No acute events overnight. GCS 15. Pain controlled. HR improved with increase of metop yesterday. BP appropriate. On home 2L NC. Regular diet. Persistent hyperglycemia, prednisone completes05/28. UOP appropriate. Scr down to 1.9 (2.4). On home bumex. K 5.1. Ca repleted overnight. Afebrile. On rocephin for CAP until 05/28. Edited by: Dick Pittman PA at 05/27/2024 0922 Patient Active Problem List Diagnosis Date Noted Current use of custodial anticoagulation 05/27/2024 Acute respiratory failure 05/26/2024 Anxiety and depression 05/26/2024 Type 2 diabetes mellitus 05/25/2024 Closed intertrochanteric fracture of left femur 05/23/2024 Hyperkalemia 05/23/2024 Fall at home, initial encounter 05/23/2024 [id number] kidney injury ([facility]/HCC) 05/23/2024 Frailty 05/23/2024 Gait disturbance 05/23/2024 Suicide attempt by drug ingestion, initial encounter ([facility]) 09/25/2022 Atrial fibrillation ([facility]) 09/25/2022 CHF (congestive heart failure) [place] 09/25/2022 Cirrhosis ([facility]) 09/25/2022 COPD (chronic obstructive pulmonary disease) ([facility]) 09/25/2022 Diabetic neuropathy ([facility]) 09/25/2022 Hepatitis B 09/25/2022 Hepatitis C 09/25/2022 History of DVT (deep vein thrombosis) 09/25/2022 Hyperlipidemia 09/25/2022 IBS (irritable bowel syndrome) 09/25/2022 Nicotine dependence 09/25/2022 Restless legs syndrome 09/25/2022 Sleep apnea, obstructive 09/25/2022 TIA (transient ischemic attack) 09/25/2022 GERD (gastroesophageal reflux disease) 01/22/2019 Essential hypertension 06/14/2016 Antibiotics: cefTRIAXone (Rocephin) 2 g IVPB (vial adapter required) Indication and duration: Completes today for CAP Tertiary survey date: 05/24 The Audit-C was: Completed ITSS: Completed Consultants and recommendations: - Ortho: follow up on 06/12 Disposition barriers: pulmonary toilet, glycemic control I have reviewed and updated the patients Problem List to reflect current plan of care with recommendations of the most recent progress notes of consultants: Yes I have communicated handoff with the primary receiving provider: Alicia Saqib, PA-C I have reviewed appropriateness for transfer at time of bed allocation: Yes Predictive Model Details 36 (Medium) Factor Value Calculated 05/27/2024 18:33 30% Supplemental oxygen Supplemental oxygen Deterioration Index Model 28% Age [age] years old 15% Potassium abnormal (5.1 mmol/L) 6% Respiratory rate 18 6% Systolic 148 5% WBC count 10.18 10*3/uL 4% Hematocrit abnormal (27.2 %) 3% BUN abnormal (105 mg/dL) 1% Sodium 139 mmol/L 1% Pulse oximetry 94 % 0% Temperature 36.6 ??C (97.8 ??F) 0% Pulse 75 AVNI Andrade Cosigned by Alex Diaz MD at 05/30/2024 4:54 PM EDT Associated attestation - Alex Diaz MD - 05/30/2024 4:54 PM EDT I attest to being involved in providing substantive part of the medical decision making in patient care. Patient doing well today. Pain controlled, GCS 15. Rate controlled with increased dose of metoprolol. Remains on 2L NC, which she uses at home. Tolerating diet. Urinating well, Cr 1.9 from 2.4. On steroids/rocephin for COPD exacerbation/CAP until 05/27. Ok to downgrade. * Progress Notes - Rukhsana Dawkins, GRIPS - 05/27/2024 9:22 AM EDT Trauma ICU Daily Progress Note 05/27/24 Kassy Cline HPI Kassydaryl Cline is a 64 y.o. female presenting with a complex past medical history of CKD stage 3, atrial fibrillation on eliquis, COPD (intermittent 2L at baseline), CHF, hypertension, hyperlipidemia, presenting to the on 05/23 as a transfer from OSH due to experiencing a ground level fall the day prior. Injuries include: L IT fx 05/24: ORIF of L IT with CMN Interval: No acute events overnight. GCS 15. Pain controlled. HR improved with increase of metop yesterday. BP appropriate. On home 2L NC. Regular diet. Persistent hyperglycemia, prednisone completes05/28. UOP appropriate. Scr down to 1.9 (2.4). On home bumex. K 5.1. Ca repleted overnight. Afebrile. On rocephin for CAP until 05/28. Edited by: Dick Pittman PA at 05/27/2024 0922 Relevant review of systems was obtained as able and is negative unless stated above in HPI. Vital signs: Visit Vitals BP 137/60 Pulse 80 Temp 36.6 ??C (97.8 ??F) (Axillary) Resp 20 Ht 1.626 m (5' 4.02 ) Wt 75 kg (165 lb 5.5 oz) SpO2 96% BMI 28.37 kg/m?? Smoking Status Every Day BSA 1.84 m?? Intake/Output Summary (Last 24 hours) at 05/27/2024 1142 Last data filed at 05/27/2024 0600 Gross per 24 hour Intake 989.57 ml Output 1890 ml Net -900.43 ml Physical Exam: Physical Exam Vitals reviewed. Constitutional: General: She is not in acute distress. HENT: Head: Normocephalic. Nose: Nose normal. Mouth/Throat: Mouth: Mucous membranes are moist. Cardiovascular: Rate and Rhythm: Normal rate. Rhythm irregular. Pulses: Normal pulses. Pulmonary: Effort: Pulmonary effort is normal. No respiratory distress. Comments: NC Abdominal: General: There is no distension. Palpations: Abdomen is soft. Tenderness: There is no abdominal tenderness. Skin: General: Skin is warm. Findings: Bruising present. Neurological: General: No focal deficit present. Mental Status: She is alert and oriented to person, place, and time. Psychiatric: Mood and Affect: Mood normal. Behavior: Behavior normal. Lines/Drains/Tubes: Patient Lines/Drains/Airways Status Active Airway None O2 Delivery Method: Nasal cannula Output by Drain (mL) 05/25/24 0700 - 05/25/24 1859 05/25/24 1900 - 05/26/24 0659 05/26/24 0700 - 05/26/24 1859 05/26/24 1900 - 05/27/24 0659 05/27/24 0700 - 05/27/24 1142 Requested LDAs do not have output data documented. Labs in last 18 hours: CBC WBC ?? Hb ?? Plt ?? Hct ?? ANC ?? INR ??, PTT ??, Anti-Xa ?? BMP Na 139 Cl 103 BUN 105 (H) Glu 281 (H) K 5.1 (H) Co2 24 Cr 1.92 (H) Ca 8.4 (L) iCa 4.3 (L) Mg 2.1, Phos 4.6 (H) Lactate ?? LFT AST ?? AlkPhos ?? T Prot ?? ALK ?? Bili ?? Alb ?? D.Bili ?? Lab Trends: H/H Results from last 7 days Lab Units 05/26/24 0134 05/25/24 0025 05/24/24 1142 HEMOGLOBIN g/dL 8.3* 8.7* 10.2* HEMATOCRIT % 27.2* 28.4* 34.8 INR Results from last 7 days Lab Units 05/24/24 0017 05/23/24 0652 INR 1.5* 1.6* Cr Results from last 7 days Lab Units 05/27/24 0046 05/26/24 0134 05/25/24 0025 CREATININE mg/dL 1.92* 2.42* 2.44* Radiology: No new imaging today. Medications reviewed. Vital signs reviewed. Labs reviewed. Radiography reviewed. Assessment and Plan: Medical Problems and Relevant Plans Hospital Problems POA * (Principal) Fall at home, initial encounter Not Applicable Overview Signed 05/26/2024 11:57 AM by Rukhsana Dawkins APRN Admit SGT ICU [x] Tertiary and Audit-C 05/24 [] Patient will need ITSS evaluation when appropriate Essential hypertension Yes Overview Signed 05/26/2024 12:02 PM by Rukhsana Dawkins APRN Resume home meds as appropriate Atrial fibrillation (CMS/HCC) Yes Overview Addendum 05/27/2024 11:32 AM by Rukhsana Dawkins APRN Resume home meds as appropriate CHF (congestive heart failure) (CMS/HCC) Yes Overview Signed 05/26/2024 12:02 PM by Rukhsana Dawkins APRN Resume home meds as appropriate Cirrhosis ([facility]/HCC) Yes Overview Signed 05/26/2024 12:02 PM by Rukhsana Dawkins APRN Resume home meds as appropriate COPD (chronic obstructive pulmonary disease) ([facility]) Yes Overview Addendum 05/26/2024 11:56 AM by Rukhsana Dawkins APRN Reportedly on home 2L nasal cannula COPD exacerbation tx this hospitalization Diabetic neuropathy ([facility]) Yes Overview Signed 05/26/2024 12:00 PM by Rukhsana Dawkins APRN Resume home meds as appropriate Hyperlipidemia Yes Closed intertrochanteric fracture of left femur Yes Overview Addendum 05/27/2024 11:21 AM by Rukhsana Dawkins APRN ORF consult, s/p CMN 05/24 WB per ortho Follow up [facility] with Bing Byers on 06/12 Hyperkalemia Yes Overview Addendum 05/26/2024 12:03 PM by Rukhsana Dawkins APRN -5.4 on arrival -Continue to monitor, resume home [facility] [id number] kidney injury ([facility]) Yes Overview Addendum 05/26/2024 11:54 AM by Rukhsana Dawkins APRN Cr 2.92 on arrival, Baseline ~ 1.1 Avoid nephrotoxic agents as able and renally dose medications IVF resuscitation as needed Frailty Yes Overview Signed 05/23/2024 11:51 AM by Rubén Martin MD Weak and wheelchair bound Gait disturbance Yes Type 2 diabetes mellitus Yes Overview Signed 05/26/2024 12:02 PM by Rukhsana Dawkins APRN SSI/CC2 diet as appropriate Acute respiratory failure Yes Overview Signed 05/26/2024 11:58 AM by Rukhsana Dawkins APRN Wean O2 as able Anxiety and depression Yes Overview Signed 05/26/2024 12:00 PM by Rukhsana Dawkins APRN Resume home meds as appropriate Current use of long filler cigar roller machine anticoagulation Not Applicable Overview Signed 05/27/2024 11:33 AM by Rukhsana Dawkins APRN Resume home eliquis upon discharge Non-Hospital Problems GERD (gastroesophageal reflux disease) Suicide attempt by drug ingestion, initial encounter ([facility]) Hepatitis B Hepatitis C History of DVT (deep vein thrombosis) IBS (irritable bowel syndrome) Nicotine dependence Restless legs syndrome Sleep apnea, obstructive TIA (transient ischemic attack) To Do: - decrease robaxin dosing - CAP ceftriaxone complete tonight - prednisone for COPD exac complete tomorrow - schedule duonebs - glycemic control; increase insulin - will need to resume AC on discharge - DG to PCU with tele and oximetry Edited by: Rukhsana Dawkins APRN at 05/27/2024 1141 Rukhsana Dawkins APRN Procedures Cosigned by Alex Diaz MD at 05/30/2024 4:54 PM EDT Associated attestation - Alex Diaz MD - 05/30/2024 4:54 PM EDT I attest to being involved in providing substantive part of the medical decision making in patient care. R 100-120s this AM, a.fib. We decreased her dose of metoprolol yesterday - will increase back to prior dose. She is on 3L NC (on 2-3L at home). Remains on treatment for CAP/COPD exacerbation with abx and steroids. Tolerating diet, [place] removed this AM - ensure she urinates s/p removal. She is on her home bumex. Cr is baseline of 2.4. Potassium is 4.8 today. Continue home lokalma. Glucoses remain elevated - up to - possibly 2/2 to steroids. Will increase insulin regimen today * Care Plan - Emmanuelle Valle R - 05/27/2024 2:26 AM EDT Problem: Adult Inpatient Plan of Care Goal: Patient-Specific Goal (Individualized) Outcome: Ongoing, Progressing Flowsheets (Taken 05/26/20241999) Patient/Family-Specific Goals (Include Timeframe): pt will remain free from falls or injuries this shift Individualized Care Needs: patient safety, q2 turns, and adequate rest Anxieties, Fears or Concerns: pain control Goal: Absence of Hospital-Acquired Illness or Injury Outcome: Ongoing, Progressing Goal: Optimal Comfort and Wellbeing Outcome: Ongoing, Progressing Goal: Readiness for Transition of Care Outcome: Ongoing, Progressing Problem: Mobility Impairment Goal: Optimal Mobility Outcome: Ongoing, Progressing Problem: Self-Care Deficit Goal: Improved Ability to Complete Activities of Daily Living Outcome: Ongoing, Progressing * Progress Notes - Rukhsana Dawkins, GRIPS - 05/26/2024 12:03 PM EDT Trauma ICU Daily Progress Note 05/26/24 Kassy Cline HPI Kassy Cline is a 64 y.o. female presenting with a complex past medical history of CKD stage 3, atrial fibrillation on eliquis, COPD (intermittent 2L at baseline), CHF, hypertension, hyperlipidemia, presenting to the on 05/23 as a transfer from OSH due to experiencing a ground level fall the day prior. Injuries include: L IT fx 05/24: ORIF of L IT with CMN Interval: Some afib with rvr overnight, self-converted. Continues to be tachy this morning. BP appropriate. GCS 15. Pain well controlled. On home 2L NC. On home bumex. 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 Tolerating regulardiet. Montgomery removed early this morning. Will follow up on voiding. Afebrile. Leukocytosis resolved.Remains on Rocephin for CAP. Azithro completed, remains on steroids for COPD exacerbation tx. Edited by: Dick Pittman PA at 05/26/2024 1207 Relevant review of systems was obtained as able and is negative unless stated above in HPI. Vital signs: Visit Vitals BP 91/54 (BP Location: Left arm, Patient Position: Lying) Pulse (!) 118 Temp 36.7 ??C (98 ??F) (Oral) Resp 19 Ht 1.626 m (5' 4.02 ) Wt 75 kg (165 lb 5.5 oz) SpO2 99% BMI 28.37 kg/m?? Smoking Status Every Day BSA 1.84 m?? Intake/Output Summary (Last 24 hours) at 05/26/2024 1207 Last data filed at 05/26/2024 0800 Gross per 24 hour Intake -- Output 1575 ml Net -1575 ml Physical Exam: GEN: Patient appears stated age. NEURO: GCS 15 HEENT: Mucous membranes appear moist. Head atraumatic, normocephalic NECK: trachea midline INTEG: Mildly pallor. EXT: No appreciable joint swelling or deformities. CV: No appreciable edema. PULM: No tachypnea. GI: Nondistended, soft, and nontender. : No appreciable bladder distention. Voiding spontaneously PSYCH: Appropriate to situation. Lines/Drains/Tubes: Patient Lines/Drains/Airways Status Active Airway None O2 Delivery Method: Nasal cannula Output by Drain (mL) 05/24/24 07 - 05/24/24 18505/24/24 190 - 05/25/24 0659 05/25/24 07 - 05/25/24 18505/25/24 190 - 05/26/24 0659 05/26/24 07 - 05/26/24 1207 Requested LDAs do not have output data documented. Labs in last 18 hours: CBC WBC 10.18 Hb 8.3 (L) Plt 194 Hct 27.2 (L) ANC ?? INR ??, PTT ??, Anti-Xa ?? BMP Na 136 Cl 101 BUN 113 (H) Glu 353 (H) K 4.8 Co2 23 Cr 2.42 (H) Ca 8.0 (L) iCa ?? Mg 2.0, Phos 5.4 (H) Lactate ?? LFT AST ?? AlkPhos ?? T Prot ?? ALK ?? Bili ?? Alb ?? D.Bili ?? Lab Trends: H/H Results from last 7 days Lab Units 05/26/24 0134 05/25/24 0025 05/24/24 1142 HEMOGLOBIN g/dL 8.3* 8.7* 10.2* HEMATOCRIT % 27.2* 28.4* 34.8 INR Results from last 7 days Lab Units 05/24/24 0017 05/23/24 0652 INR 1.5* 1.6* Cr Results from last 7 days Lab Units 05/26/24 0134 05/25/24 0025 05/24/24 1142 CREATININE mg/dL 2.42* 2.44* 2.31* Radiology: I have personally reviewed and interpreted the most recent CXR 05/26/2024 and my interpretation is that it shows underlying interstitial lung disease, no obvious pnx or effusion. Medications reviewed. Vital signs reviewed. Labs reviewed. Radiography reviewed. Assessment and Plan: Medical Problems and Relevant Plans Hospital Problems POA * (Principal) Fall at home, initial encounter Not Applicable Overview Signed 05/26/2024 11:57 AM by Rukhsana Dawkins APRN Admit SGT ICU [x] Tertiary and Audit-C 05/24 [] Patient will need ITSS evaluation when appropriate Essential hypertension Yes Overview Signed 05/26/2024 12:02 PM by Rukhsana Dawkins APRN Resume home meds as appropriate CHF (congestive heart failure) (CMS/HCC) Yes Overview Signed 05/26/2024 12:02 PM by Rukhsana Dawkins APRN Resume home meds as appropriate Cirrhosis (CMS/HCC) Yes Overview Signed 05/26/2024 12:02 PM by Rukhsana Dawkins APRN Resume home meds as appropriate COPD (chronic obstructive pulmonary disease) (CMS/HCC) Yes Overview Addendum 05/26/2024 11:56 AM by Rukhsana Dawkins APRN Reportedly on home 2L nasal cannula COPD exacerbation tx this hospitalization Diabetic neuropathy (CMS/HCC) Yes Overview Signed 05/26/2024 12:00 PM by Rukhsana Dawkins APRN Resume home meds as appropriate Closed intertrochanteric fracture of left femur Yes Overview Addendum 05/26/2024 11:56 AM by Rukhsana Dawkins APRN ORF consult, s/p CMN 4/10 WB per ortho Hyperkalemia Yes Overview Addendum 05/26/2024 12:03 PM by Rukhsana Dawkins APRN -5.4 on arrival -Continue to monitor, resume home lokelfl [id number] kidney injury (CMS/HCC) Yes Overview Addendum 05/26/2024 11:54 AM by Rukhsana Dawkins APRN Cr 2.92 on arrival, Baseline ~ 1.1 Avoid nephrotoxic agents as able and renally dose medications IVF resuscitation as needed Frailty Yes Overview Signed 05/23/2024 11:51 AM by Rubén Martin MD Weak and wheelchair bound Gait disturbance Yes Type 2 diabetes mellitus Yes Overview Signed 05/26/2024 12:02 PM by Rukhsana Dawkins APRN SSI/CC2 diet as appropriate Acute respiratory failure Yes Overview Signed 05/26/2024 11:58 AM by Rukhsana Dawkins APRN Wean O2 as able Anxiety and depression Yes Overview Signed 05/26/2024 12:00 PM by Rukhsana Dawkins APRN Resume home meds as appropriate Non-Hospital Problems Diabetes type 2, uncontrolled GERD (gastroesophageal reflux disease) Vitamin D deficiency Suicide attempt by drug ingestion, initial encounter ([facility]) Hepatitis B Hepatitis C History of DVT (deep vein thrombosis) Hyperlipidemia IBS (irritable bowel syndrome) Mental disorder Nicotine dependence Restless legs syndrome Sleep apnea, obstructive TIA (transient ischemic attack) Type 2 diabetes mellitus without complications To Do: - Continue CAP treatment with ceftriaxone until 05/28 - Increase bowel reg - Increase insulin regimen - Increase metop back to 25 bid - Follow up ECG - Downgrade to progressive Edited by: Dick Pittman PA at 05/26/2024 1207 Rukhsana Dawkins APRN Procedures Cosigned by Alex Diaz MD at 05/30/2024 4:52 PM EDT Associated attestation - Alex Diaz MD - 05/30/2024 4:52 PM EDT I attest to being involved in providing substantive part of the medical decision making in patient care. I have seen and examined this patient with the medical students, ROMEO, residents and fellow on ICU rounds. I attest to the progress note after review. We reviewed all pertinent labs, xrays and sap pp consultant reports and determined a plan of care. Pt with need for ongoing critical care management relatedto a.fib with RVR, need for pulmonary toilet, critical polytrauma in setting of frailty Decision-making/Treatment management GCS 15 this AM. HR 100-120s this AM, a.fib. We decreased her dose of metoprolol yesterday - will increase back to prior dose. She is on 3L NC (on 2-3L at home). Remains on treatment for CAP/COPD exacerbation with abx and steroids. Tolerating diet, Ulises removed this AM - ensure she urinates s/p removal. She is on her home bumex. Cr is baseline of 2.4. Potassium is 4.8 today. Continue home bumex and home lokalma. Glucoses remain elevated - up to 290- possibly 2/2 to steroids. Will increase insulin regimen today * Query Clarification Note - Rukhsana Dawkins APRN - 05/26/2024 11:54 AM EDT Physician Clarification After review, please clarify which of the following accurately represents the patient's respiratorystatus: [x]Respiratory Failure -indicate acuity [x]Acute []Chronic []Acute on Chronic -indicate type [x]Hypoxic []Hypercapnic []Hypoxic and hypercapnic []Other (please specify): Please further specify []Present on admission []Occurring after admission []Unable to determine POA status This documentation will become part of the patient's medical record. * Progress Notes - Jimenez Raza MD - 05/26/2024 5:56 AM EDT Orthopaedic Trauma Surgery Progress Note 05/26/24 Subjective: No acute events overnight. Patient remains in the trauma ICU on nasal cannula. Patient continues to describe pain in the left hip, discussed that she can ask for pain control when needed. She is postoperative day 2 from operative fixation of the left intertrochanteric femur fracture She was assisted to bedside chair yesterday but otherwise is minimally mobile thus far postoperatively. Discussed importance of trying to mobilize today. Objective: Vitals: 05/26/24 0342 BP: Pulse: 82 Resp: 20 Temp: SpO2: 99% Physical Examination: No acute distress Non labored breathing Peripheral perfusion intact Focused Musculoskeletal Examination: Left lower extremity: ARTUR wrap in place, not constrictive. Soft dressings c/d/I. Tib ant, gastroc, EHL/FHL intact Sensation intact to light touch in SP, DP, tibial, sural, saphenous distributions toes WWP Data: Labs in last 18 hours: CBC WBC 10.18 Hb 8.3 (L) Plt 194 Hct 27.2 (L) INR ??, PTT ??, Anti-Xa ?? BMP Na 136 Cl 101 BUN 113 (H) Glu 353 (H) K 4.8 Co2 23 Cr 2.42 (H) Lactate ?? Assessment & Plan: Kassy Cline is a 64 y.o. female patient with the following orthopedic injuries: Fall: NPO/PMC'd for 05/24, medical clearance Edited by: Judson Hwang MD at 05/23/2024 1646 - postoperative day 2 from operative fixation of the left intertrochanteric femur - patient will follow up in Orthopedic Trauma Clinic with Bing Byers on 06/12 Mobility Orders Mobility Protocol: Ortho/Trauma/Spine Mobility Guidelines Spinal Precautions: No cranial, cervical or thoracolumbar spinal precautions necessary Extremity Precautions: Extremity Precautions Extremity: LLE Mobility Restrictions (LLE): Weight bear as tolerated (WBAT) Type of Brace (LLE): None Other mobility precautions: Other precautions Other mobility precautions: Other Other: Keep HOB 30 Degrees, OK to Reverse Trendelenburg. Orthopaedic Trauma Service Pager: [phone] Orthopaedic Recon/Spine/Foot and Ankle Service Pager: [phone] Cosigned by Piter Burns MD at 05/28/2024 8:43 AM EDT * Care Plan - Gideon Rodríguez RN - 05/26/2024 4:00 AM EDT Problem: Infection Goal: Absence of Infection Signs and Symptoms Outcome: Ongoing, Progressing Problem: Adult Inpatient Plan of Care Goal: Plan of Care Review Outcome: Ongoing, Progressing Goal: Patient-Specific Goal (Individualized) Outcome: Ongoing, Progressing Goal: Absence of Hospital-Acquired Illness or Injury Outcome: Ongoing, Progressing Goal: Optimal Comfort and Wellbeing Outcome: Ongoing, Progressing Goal: Readiness for Transition of Care Outcome: Ongoing, Progressing Problem: Mobility Impairment Goal: Optimal Mobility Outcome: Ongoing, Progressing Problem: Self-Care Deficit Goal: Improved Ability to Complete Activities of Daily Living Outcome: Ongoing, Progressing * Progress Notes - Dick Pittman PA - 05/25/2024 12:23 PM EDT Trauma ICU Daily Progress Note 05/25/24 Kassy Cline [facility] Kassy Cline is a 64 y.o. female presenting with a complex past medical history of CKD stage 3, atrial fibrillation on eliquis, COPD (intermittent 2L at baseline), CHF, hypertension, hyperlipidemia, presenting to the on 05/23 as a transfer from OSH due to experiencing a ground level fall the day prior. Injuries include: L IT fx 05/24: ORIF of L IT with CMN Interval: POD #1 IMN left IT. Hypotension overnight, responded to IVF bolus 500. On 4 liters NC. Pulling 500-1000 on IS. UOP appropriate. Scr 2.44 (2.31). 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 Regular diet, low intake. Hgb 8.7 (10.2). Afebrile. Did not do well with PT/OT this morning due to pain. Improved with 5 of oxy however gets very drowsy. Edited by: Dick Pittman PA at 05/25/2024 1214 Relevant review of systems was obtained as able and is negative unless stated above in HPI. Vital signs: Visit Vitals BP 87/65 (BP Location: Right arm, Patient Position: Lying) Pulse (!) 134 Temp 36.9 ??C (98.4 ??F) (Bladder) Resp 16 Ht 1.626 m (5' 4.02 ) Wt (S) 75 kg (165 lb 5.5 oz) Comment: bed scale drastically different; ARTIE SpO2 100% BMI 28.37 kg/m?? Smoking Status Every Day BSA 1.84 m?? Intake/Output Summary (Last 24 hours) at 05/25/2024 1223 Last data filed at 05/25/2024 0800 Gross per 24 hour Intake 995.15 ml Output 1055 ml Net -59.85 ml Physical Exam: Physical Exam Vitals reviewed. Constitutional: Comments: Drowsy HENT: Head: Normocephalic. Right Ear: External ear normal. Left Ear: External ear normal. Nose: Nose normal. Mouth/Throat: Mouth: Mucous membranes are moist. Cardiovascular: Rate and Rhythm: Normal rate. Pulses: Normal pulses. Pulmonary: Effort: Pulmonary effort is normal. No respiratory distress. Comments: NC Abdominal: General: There is no distension. Palpations: Abdomen is soft. Tenderness: There is no abdominal tenderness. Musculoskeletal: Cervical back: Normal range of motion. Comments: L hip tenderness Skin: General: Skin is warm. Findings: Bruising present. Neurological: General: No focal deficit present. Mental Status: She is alert and oriented to person, place, and time. Psychiatric: Mood and Affect: Mood normal. Behavior: Behavior normal. Lines/Drains/Tubes: Patient Lines/Drains/Airways Status Active Airway None O2 Delivery Method: Nasal cannula Output by Drain (mL) 05/23/24 07 - 05/23/24 18505/23/241899 - 05/24/24 0659 05/24/24 07 - 05/24/24 1859 05/24/24 190 - 05/25/24 0659 05/25/24 07 - 05/25/24 1223 Requested LDAs do not have output data documented. Labs in last 18 hours: CBC WBC 14.10 (H) Hb 8.7 (L) Plt 179 Hct 28.4 (L) ANC ?? INR ??, PTT ??, Anti-Xa ?? BMP Na 140 Cl 103 BUN 108 (H) Glu 223 (H) K 4.6 Co2 22 Cr 2.44 (H) Ca 8.2 (L) iCa ?? Mg 2.1, Phos 5.9 (H) Lactate ?? LFT AST ?? AlkPhos ?? T Prot ?? ALK ?? Bili ?? Alb ?? D.Bili ?? Lab Trends: H/H Results from last 7 days Lab Units 05/25/24 0025 05/24/24 1142 05/24/24 0017 HEMOGLOBIN g/dL 8.7* 10.2* 11.2 HEMATOCRIT % 28.4* 34.8 36.3 INR Results from last 7 days Lab Units 05/24/24 0017 05/23/24 0652 INR 1.5* 1.6* Cr Results from last 7 days Lab Units 05/25/24 0025 05/24/24 1142 05/24/24 0017 CREATININE mg/dL 2.44* 2.31* 2.48* Radiology: I have personally reviewed and interpreted the most recent CXR 05/25/24 and my interpretation is that it shows continued right pleural effusion. Medications reviewed. Vital signs reviewed. Labs reviewed. Radiography reviewed. Assessment and Plan: Medical Problems and Relevant Plans Hospital Problems POA * (Principal) Fall at home, initial encounter Not Applicable CKD (chronic kidney disease) Yes Overview Addendum 05/23/2024 9:38 AM by Alexis Ellis DO -Previous baseline appears to be around 1.1 COPD (chronic obstructive pulmonary disease) ([facility]) Yes Overview Signed 05/23/2024 9:37 AM by Alexis Ellis DO -Reportedly on home 2L nasal cannula Closed intertrochanteric fracture of left femur Yes Overview Signed 05/23/2024 11:53 AM by Rubén Martin MD Orthopedic surgery consultation Operative repair Hyperkalemia Yes Overview Signed 05/23/2024 7:25 AM by Alexis Ellis DO -5.4 on arrival -Continue to monitor RAGHAV (acute kidney injury) ([facility]) Yes Overview Addendum 05/23/2024 9:38 AM by Alexis Ellis DO -Creatine 2.92 on arrival -Baseline around 1.1 Frailty Yes Overview Signed 05/23/2024 11:51 AM by Rubén Martin MD Weak and wheelchair bound Gait disturbance Yes Type 2 diabetes mellitus Yes Closed fracture of left hip ([facility]) Yes Non-Hospital Problems Essential hypertension Diabetes type 2, uncontrolled GERD (gastroesophageal reflux disease) Vitamin D deficiency Suicide attempt by drug ingestion, initial encounter ([facility]) Anxiety CHF (congestive heart failure) ([facility]/HCC) Cirrhosis ([facility]/HCC) Depression Diabetic neuropathy ([facility]/HCC) Hepatitis B Hepatitis C History of DVT (deep vein thrombosis) Hyperlipidemia IBS (irritable bowel syndrome) Mental disorder Nicotine dependence Restless legs syndrome Sleep apnea, obstructive TIA (transient ischemic attack) Type 2 diabetes mellitus without complications To Do: - Continue CAP treatment with Azithromycin and Ceftriaxone - PT/OT - Encouraged mobility, needs up to chair - Decrease oxy to 2.5 Q4H - Pulm toilet - Supplemental boost - Added bowel reg - Remove montgomery Edited by: Dick Pittman PA at 05/25/2024 1214 Irene M Higdon, GRIPS, DNP Procedures Cosigned by Alex Diaz MD at 05/26/2024 7:16 AM EDT Associated attestation - Alex Diaz MD - 05/26/2024 7:16 AM EDT I attest to being involved in providing substantive part of the medical decision making in patient care. I have seen and examined this patient with the medical students, ROMEO, residents and fellow on ICU rounds. I attest to the progtess note after review. We reviewed all pertinent labs, xrays and sap pp consultant reports and determined a plan of care. Exam Drowsy but when awakens GCS 15. Breathing comfortably on NC HDS Decision-making/Treatment management Kassy was taken to the OR yesterday with orthopaedic surgery for an IMN left intertrochanteric fracture. Difficulties with pain, making working with PT difficult. She is on scheduled tylenol, gabapentin and PRN robaxin. Became very drowsy with 5mg of oxycodone. Will increase robaxin dose and change it to scheduled. Will decrease PRN oxy to 2.5mg. Continue home Abilify, Buspar and zoloft. Was hypotensive overnight, required 500c IVF bolus. ECHO with LVEF of 66% , normal RV function. OK for more fluids if needed. Remains on 4L NC and pulling 500-1L on IS. Continue to treat for CAP/COPD exacerbation with antibiotics and steroids. Continuing home inhalers Tolerating regular diet with nutritional supplements. On bowel regimen, no bowel movement yet --> will increase regimen. UOP appropriate with stable Cr. Potassium 4.6, continue to monitor BMP. Blood glucoses somewhat elevated. Adjusting insulin regimen. On appropriate DVT ppx with heparin (given renal function) * Nursing Note - Scott Krueger, RN - 05/25/2024 10:45 AM EDT Orthopedic Transition Nurse Note General: Spoke with: Patient, Bedside RN, and Primary Team Assessment and Interventions: Assessed: Dressing Dressing Interventions: CDI Wound 05/24/24 Surgical Closed Surgical Incision Leg Anterior;Left;Upper (Active) Date First Assessed/Time First Assessed: 05/24/24 0950 Primary Wound Type: Surgical Secondary WoundType - Surgical: Closed Surgical Incision Location: Leg Wound Location Orientation: Anterior;Left;Upper Wound 05/24/24 Surgical Closed Surgical Incision Leg Anterior;Left;Upper (Active) Wound Assessment Unable to assess 05/25/24 1200 Margins Unable to assess 05/25/24 1200 Andreia-Wound Assessment Unable to assess 05/25/24 1200 Closure Unable to assess 05/24/24 1030 Drainage Description Unable to assess 05/24/24 1030 Dressing Dry dressing 05/25/24 1200 Dressing Status Clean;Dry;Intact 05/25/24 1200 Education: Education provided on: Dressing, Signs and symptoms of infection, Weight bearing mobility, Pain protocol/management, and Ortho trauma booklet given Plan of Care: Follow up with Bing Byers on 06/12/2024 at 0930. Op-Plan: Completed Contact Card Given: yes Comments: Educated patient on the importance of Wali in promoting wound healing. Orthopedic team recommends post-operative patients take at least 2 packets per day of Wali for 14 days after surgery. AwaitingPT/OT eval/recs. LLE: ARTUR wrap should be removed 72 hours following surgery, and then re-applied daily for swelling as needed taking care not to remove the sterile OR dressing underneath. If bandage becomes wet, soiled, or falls off it may be replaced with a clean dry gauze dressing as needed. May remove left knee bandages from traction pin sites 2-3 days after surgery; if dry, may then leave open to air or placeadditional dry dressing as needed. For medical questions or concerns after discharge, please contact the Orthopedic Transition Nurse at [phone] Tuesday through Tuesday 8:00 am to 2:30 pm. If you feel your concern is a medical emergency please call 911 immediately. Based upon recent changes to [place] law related to prescribing opioid pain medications, our providers will not provide more than a 14 day supply of controlled medications following a major surgery or trauma from the date of your injury or hospital discharge. [place], [place] 201 KAT 9:260. * Progress Notes - Doug Lucio - 05/25/2024 9:24 AM EDT PHYSICAL THERAPY EVALUATION Patient Name Kassy Cline Session Date 05/25/2024 Total Treatment Time 38 min PT Discharge Recommendations Subacute rehab Equipment Recommendations Defer to facility HISTORY Kassy Cline is 64 y.o. female admitted 05/23/2024 for work-up of Fall at home, initial encounter. Hospital Course 1. Closed fracture of left hip, initial encounter ([facility]) 2. COPD exacerbation ([facility]) 3. Hyperkalemia 4. RAGHAV (acute kidney injury) ([facility]) Procedures (if applicable) 05/24/2024 Procedure(s): Left Intertroch Intramedullary Nail Past Medical History Patient has a past medical history of Anxiety, Atrial fibrillation ([facility]), CHF (congestive heart failure) ([facility]), Cirrhosis ([facility]), CKD (chronic kidney disease) stage 3,GFR 30-59 ml/min ([facility]), COPD (chronic obstructive pulmonary disease) ([facility]), Depression, Diabetic neuropathy ([facility]), Essential (primary) hypertension, GERD (gastroesophageal reflux disease), Hepatitis B, Hepatitis C, History of DVT (deep vein thrombosis), Hyperlipidemia, IBS (irritable bowel syndrome), Mental disorder, Nicotine dependence, Restless legs syndrome, Sleep apnea, obstructive, TIA (transient ischemic attack), and Type 2 diabetes mellitus without complications. Past Surgical History Patient has a past surgical history that includes Tonsillectomy (N/A); Appendectomy (N/A); Cholecystectomy (N/A); Tubal ligation (N/A); cardiac stent (N/A); Hysterectomy (N/A); Carpal tunnel release (N/A); Colonoscopy (N/A); lung, wedge resection (N/A); and thoracoscopy (N/A). PRECAUTIONS Weight Bearing Precautions (if applicable) Left Lower Extremity Weight Bearing Status: Weight Bearing as Tolerated ROM Restrictions (if applicable) Medical Precautions Yes Medical Precautions: Fall precautions SUBJECTIVE PARTICIPANTS IN CARE Visitors Present No Subjective Report Pt has NOT been: * Ambulating hallway distances * Ambulating in-room distances * Transferring Bed <> Chair since being admitted to the hospital. Mining Analyst (if applicable) Not Applicable HOME LIVING/SET-UP [facility]for the last 5 months) Home Equipment Cane, Wheelchair-manual, Rolling walker Home Layout One level Bathroom Layout Bathroom: Toilet: Standard Additional Comments Getting physical therapy 3x/week at nursing facility. PRIOR LEVEL OF FUNCTION Assist at Home Caregiver Level of Mobility Wheelchair/Scooter Mobility [place] Independent wheelchair propulsion History of Falls Yes (reason for admission, no other falls in the last 6 months) Overall ADL Performance Needs assistance Additional ADL Performance Detail Bathing: Needs device and assist (sitting to shower, supervision for safety) Upper Body Dressing: Independent Lower Body Dressing: Independent Grooming: Independent Toileting: Needs device (wheelchair into the bathroom, transferring herself on/off the commode) Home Management Skills: Unable to perform PATIENT/FAMILY GOALS OBJECTIVE / INTERVENTIONS PRESENTATION Oxygen Oxygen Therapy: Supplemental oxygen O2 Delivery Method: Nasal cannula O2 Flow Rate (L/min): 3 L/min Lines and Tubes telemetry Urethral Catheter Temperature probe (Active) Peripheral IV 05/23/24 Right Antecubital (Active) Peripheral IV 05/23/24 Posterior;Right Wrist (Active) Pre-Session Supine, Head of bed elevated, Lines intact Post-Session Supine, Head of bed elevated, Lines intact, RN notified, Call light in reach, SCDs applied Bracing (if applicable) PAIN Pain Intensity / Location Pre-Mobility: 8/10 LLE pain Pain Intensity / Location Post-Mobility: 10/10 LLE pain Prior to PT's departure: * rest was provided * pt was positioned for comfort * pillow support was provided * RN was informed of pt's pain DELIRIUM SCREENING Andre Agitation Sedation Scale (RASS): Alert and calm Confusion Assessment Method-ICU (CAM-ICU/PCAM-ICU) Feature 3: Altered Level of Consciousness: Negative COGNITION Overall Cognitive Status Within Functional Limits Arousal/Alertness Appropriate responses to stimuli Mood/Behavior Alert Orientation Oriented X4 Command Following Single Step Commands: Consistently Method of Communication Verbal Additional Observations MOTOR EXAMINATION RANGE OF MOTION Right Upper Within Functional Limits Left Upper Within Functional Limits Right Lower Within Functional Limits Left Lower (Hip displayed 0-70 at edge of bed; unable to fully assess due to pain) MANUAL MUSCLE TESTING Right Upper (functionally demonstrated at least 3/5 strength- assessment limited due to medical status) Left Upper (functionally demonstrated at least 3/5 strength- assessment limited due to medical status) Right Lower (unable to fully assess due to pain; grossly at least 2-/5 displayed throughout mobility) Left Lower (unable to assess due to pain; at least 1/5 displayed throughout) MUSCLE TONE Right Upper WFL Left Upper WFL Right Lower WFL Left Lower WFL SENSORY EXAMINATION Light Touch Sensation Right Upper Intact Left Upper Intact Right Lower Intact Left Lower Intact Vital Signs Pre-Session During- and/or Post-Session Blood Pressure (mmHg) 89 / 63 (72) 84 / 53 (62) 79/51 (62) following supine to sit and return to supine 78/58 (66) supine for 3 minutes 78/59 (68) supine for 6 minutes 74/53 (62) supine for 9 minutes RN present and aware of changes in vitals THERAPEUTIC ACTIVITY Treatment Minutes 23 BED MOBILITY Level of [place] Physical/Non- physical Assist Adaptive Equipment Utilized Scooting/ Bridging Dependent (in supine toward head of bed) Verbal Cues, Additional assist utilized for safety Supine to Sit Dependent Verbal Cues, HOB elevated, Additional assist utilized for safety Sit to Supine Dependent Verbal Cues, HOB elevated, Additional assist utilized for safety Interventions PT cued patient to sequence BLE toward edge of bed and to implement contralateral UE reach. Patient was ultimately a dependent transition from supine to sit with max encouragement from therapist. Patient sat edge of bed for ~15 seconds before reporting significant increase in dizziness and requested to return to supine. See vitals. Increased time required for set-up of transfer, line management, and monitoring of vitals throughout session. Patient not appropriate to transfer to chair at this time. BALANCE Postural Appearance Posture: Stooped posture, Forward head, Rounded shoulders Level of Zavala Balance Support Interventions Static Sit Dependent Feet unsupported, Right upper extremity support, Left upper extremity support STANDARDIZED ASSESSMENTS Standardized Assessments Standardized Assessments: AMPAC 6-Clicks Mobility Assessment AMPA 6-Clicks Mobility Assessment Difficulty patient has turning over in bed (including adjusting bedclothes, sheets, and blankets)?:Unable Difficulty patient has sitting down on and standing up from a chair with arms (wheelchair, bedside commode, etc.)?: Unable Difficulty patient has moving from lying on back to sitting on the side of the bed?: Unable How much help does the patient need moving to and from a bed to a chair (including a wheelchair)?: Unable How much help does the patient need to walk in hospital room?: Unable How much help does the patient need climbing 3-5 steps with a railing?: Unable [facility] 6-Clicks Mobility Assessment Total : 6 ASSESSMENT PT FINDINGS Impairments (if identified) Decreased endurance, ventilation, and/or gas exchange, Impaired functional mobility/transfers, Impaired motor cordination/control, Decreased strength, Decreased range of motion, Impaired balance, Impaired gait dynamics/performance, Impaired postural/trunk control, Pain, Impaired locomotion Activity Limitations (if identified) Inability to sit independently, Impaired attention/alertness, Inability to ambulateindependently, Inability to transfer independently, Inability to ambulate household distances, Inability to complete ADLs independently, Inability to ambulate community distances Participation Restrictions (if identified) Self-care, Home management, Community leisure Barriers to Discharge (if identified) Comorbidities PT Diagnosis Impaired Functional Mobility Additional Observations Activity Tolerance: Sitting Evaluation/Treatment Tolerance: Patient limited by pain, Patient limited by fatigue EVAL COMPLEXITY History Profile 3 or more personal factors and/or comorbidities Clinical Presentation Unstable and unpredictable characteristics Clinical Decision Making High complexity PT RECOMMENDATIONS Discharge Destination Subacute rehab Discharge Equipment Defer to facility Additional Recommendations (if applicable) Patient may benefit from Subacute Rehab for the following reasons: Pt remains as a high fall risk and is unsafe for discharge to home Pt remains unable to ambulate and cannot currently ambulate about pt's home Pt would benefit from further instruction improving functional transfers and ambulation Pt would likely benefit more from Subacute Rehab than other rehab services due to pt's medical acuity, level of immobility, and need for improved safety prior to returning home. PLAN Planned PT Interventions Balance training, Bed mobility training, Gait training, Transfer training, Postural re-education, Strengthening, Caregiver training, Functional Mobility, ROM, Wheelchair management/propulsion training, Neuromuscular re-education, Stretching PT Frequency 2 - 5 times per week PT Duration 2 weeks PT GOALS PT GOAL DETAILS Time Frame PT Goal 1: Patient will complete supine <> sit with Mod assist 2 weeks PT Goal 2: Patient will tolerate sitting edge of bed for 5 minutes with vitals remaining stable 2 weeks PT Goal 3: Patient will complete STS and BTC transfer with Max assist and AAD 2 weeks Written by Doug Lucio on 05/25/24 at 1:26 PM. * Progress Notes - Staci Tolbert Wade - 05/25/2024 9:23 AM EDT OCCUPATIONAL THERAPY EVALUATION Note to patient: The Cures Act makes medical notes like these available to patients inthe interest of transparency. However, be advised this is a medical document. It is intended as peer to peer communication. It is written in medical language and may contain abbreviations or verbiagethat are unfamiliar. It may appear blunt or direct. Medical documents are intended to carry relevant information, facts as evident, and the clinical opinion of the practitioner. PATIENT DATA Patient Name Kassy Cline Session Date 05/25/2024 OT Discharge Recommendations Subacute rehab Equipment Recommendations Defer to facility HISTORY Kassy Cline is 64 y.o. female admitted 05/23/2024 for work-up of Fall at home, initial encounter. Hospital Course 1. Closed fracture of left hip, initial encounter ([facility]) 2. COPD exacerbation ([facility]) 3. Hyperkalemia 4. RAGHAV (acute kidney injury) ([facility]) Procedures (if applicable) 05/24/2024 Procedure(s): Left Intertroch Intramedullary Nail Past Medical History Patient has a past medical history of Anxiety, Atrial fibrillation ([facility]), CHF (congestive heart failure) ([facility]), Cirrhosis ([facility]), CKD (chronic kidney disease) stage 3,GFR 30-59 ml/min ([facility]), COPD (chronic obstructive pulmonary disease) ([facility]), Depression, Diabetic neuropathy ([facility]), Essential (primary) hypertension, GERD (gastroesophageal reflux disease), Hepatitis B, Hepatitis C, History of DVT (deep vein thrombosis), Hyperlipidemia, IBS (irritable bowel syndrome), Mental disorder, Nicotine dependence, Restless legs syndrome, Sleep apnea, obstructive, TIA (transient ischemic attack), and Type 2 diabetes mellitus without complications. Past Surgical History Patient has a past surgical history that includes Tonsillectomy (N/A); Appendectomy (N/A); Cholecystectomy (N/A); Tubal ligation (N/A); cardiac stent (N/A); Hysterectomy (N/A); Carpal tunnel release (N/A); Colonoscopy (N/A); lung, wedge resection (N/A); and thoracoscopy (N/A). PRECAUTIONS Weight Bearing Precautions (if applicable) Left Lower Extremity Weight Bearing Status: Weight Bearing as Tolerated Medical Precautions Medical Precautions: Fall precautions SUBJECTIVE PARTICIPANTS IN CARE Patient/Caregiver Comments Please don't do this to me. When transitioning pt from supine to sitting. Visitors Present No Mining Analyst (if applicable) N/A PRESENTATION Oxygen Supplemental oxygen Nasal cannula 3 L/min Telemetry Yes Lines and Tubes Urethral Catheter Temperature probe (Active) Peripheral IV 05/23/24 Right Antecubital (Active) Peripheral IV 05/23/24 Posterior;Right Wrist (Active) Pre-Session Supine, Head of bed elevated, Lines intact RN consenting to OT treatment. Post-Session Supine, Head of bed elevated, Lines intact, RN notified, Call light in reach, SCDs applied All needs met upon close of session. Bracing (if applicable) HOME LIVING/SET-UP [facility] (for the last 5 months) Home Equipment Cane, Wheelchair-manual, Rolling walker Home Layout One level Bathroom Layout Bathroom: Toilet: Standard Additional Comments Getting physical therapy 3x/week at nursing facility. PRIOR LEVEL OF FUNCTION Receives help from Caregiver Level of Mobility Wheelchair/Scooter Mobility Zavala Independent wheelchair propulsion History of Falls Yes (reason for admission, no other falls in the last 6 months) ADL Performance ADL Performance: Needs assistance Bathing: Needs device and assist (sitting to shower, supervision for safety) Upper Body Dressing: Independent Lower Body Dressing: Independent Grooming: Independent Toileting: Needs device (wheelchair into the bathroom, transferring herself on/off the commode) Home Management Skills: Unable to perform PATIENT/FAMILY GOALS Did not state- agreeable towards participation. OBJECTIVE PAIN Pt with pain in L LE- did not quantify. Positioned for comfort at conclusion of session. DELIRIUM SCREENING Andre Agitation Sedation Scale (RASS): Alert and calm Confusion Assessment Method-ICU (CAM-ICU/PCAM-ICU) Feature 3: Altered Level of Consciousness: Negative COGNITION Overall Cognitive Status Within Functional Limits Arousal/Alertness Appropriate responses to stimuli Mood/Behavior Alert Orientation Command Following Single Step Commands: Consistently Method of Communication Verbal Additional Observations VISION Baseline Vision Current Vision (if different) Vision Comments: pt wears glasses at all times at baseline- no acute vision changes noted RIGHT UPPER EXTREMITY EXAMINATION Range of Motion Within Functional Limits Manual Muscle Testing (functionally demonstrated at least 3/5 strength- assessment limited due to medical status) Light Touch Sensation Intact LEFT UPPER EXTREMITY EXAMINATION Range of Motion Within Functional Limits Manual Muscle Testing (functionally demonstrated at least 3/5 strength- assessment limited due to medical status) Light Touch Sensation Intact BED MOBILITY Level of Zavala Physical/Non- physical Assist Adaptive Equipment Utilized Scooting/ Bridging Dependent (in supine to scoot up in bed) Verbal Cues, Additional assist utilized for safety Supine to Sit Dependent Verbal Cues, HOB elevated, Additional assist utilized for safety Sit to Supine Dependent Verbal Cues, HOB elevated, Additional assist utilized for safety BALANCE Postural Appearance Posture: Stooped posture, Forward head, Rounded shoulders Level of Zavala Balance Support Interventions Static Sit Dependent Feet unsupported, Right upper extremity support, Left upper extremity support INTERVENTIONS THERAPEUTIC ACTIVITY Treatment Minutes 28 Interventions Pt on this date: -Required considerable encouragement to attempt to transition to sitting at EOB. Pt ultimately required total A x2 to accomplish transition to sitting. -Pt maintained sitting at EOB for ~3 minutes prior to indicating dizziness with requests to return to supine. BP readings as follows: 84/53 (62) supine in bed prior to out of bed engagement 79/51 (62) supine (right after sitting at EOB) 78/58 (66) supine for 3 minutes 78/59 (68) supine for 6 minutes 74/53 (62) supine for 9 minutes RN made aware. Of note, HR also increased to 147 BPM and fluctuated throughout consistent with afib. -Additional time necessary throughout session for monitoring vitals and providing encouragement. -Endurance activities encouraged on this date as interventions to support occupations as pt is currently limited by pain, activity tolerance, and medical status which negatively impacts safe and independent execution of functional tasks. STANDARDIZED ASSESSMENTS Joel Index Feeding: Independent Bathing: Dependent Grooming: Needs help with personal care Dressing: Dependent Bowels: Occasional accident Bladder: Occassional accident Toilet Use: Dependent Transfers (Bed to Chair and Back): Unable, no sitting balance Mobility (on Level Surfaces): Immobile or < 50 yards Stairs: Unable Total Score: 20 ASSESSMENT OT FINDINGS Pt on this date presents with reduced activity tolerance, pain, and hypotension with lowest readingat 74/53 occurring in supine. This negatively impacted session tolerance and participation. With this in mind, OT will continue to follow while hospitalized but is currently most appropriate for subacute inpatient rehabilitation upon discharge. Subacute rehabilitation will provide a more prolonged opportunity for skilled therapy services in hopes of improving functional status, decreasingcaregiver level of burden, and increasing quality of life. Impaired ADL performance, Impaired IADL performance, Impaired judgment during ADL, Decreased endurance/ventilation/gas exchange, Impaired functional mobility, Decreased gross motor control/coordination, Impaired balance Evaluation/ Treatment Tolerance (if identified) Patient limited by pain, Patient limited by fatigue, Treatment limited secondary to medical complications (Comment) (hypotension) Rehab Potential (if identified) Good, to achieve stated therapy goals Barriers to Discharge (if identified) EVAL COMPLEXITY Occupational Profile Expanded review of medical/therapy records and additional review of physical, cognitive, or psychosocial history Performance Deficits Activities of daily living (ADLs), Instrumental activities of daily living (IADLs), Work, Leisure, Body functions, Body structures, Motor skills, Process skills, Habits, Routines, Roles, Physical, Personal Clinical Decision Making Moderate Overall Eval Complexity Moderate OT RECOMMENDATIONS Discharge Destination Subacute rehab Discharge Equipment Defer to facility Recommendations for Referral to Another Service (if applicable) PLAN Planned OT Interventions ADL retraining, IADL retraining, Balance training, Bed mobility Training, Motor coordination training, Strengthening, Transfer training, Functional mobility, Caregiver education OT Frequency 2 - 5 times per week OT Duration 2 weeks OT GOALS OT GOAL DETAILS Time Frame OT Goal 1: Pt will maintain sitting at EOB (in preparation for self-care engagement) for at least 8consecutive minutes with stable vitals. 2 weeks OT Goal 2: Pt will perform grooming activities in supported sitting with SBA x1. 2 weeks OT Goal 3: Pt will execute transfer to/from bedside commode with max A x1. 2 weeks OT Goal 4: Pt will participate in LB dressing (AE PRN) with max A x1. 2 weeks Written by Staci Tolbert on 05/25/24 at 1:10 PM. * Progress Notes - Alberto Garrison MD - 05/25/2024 5:48 AM EDT Orthopaedic Trauma Surgery Progress Note 05/25/24 Subjective: No acute events overnight. Patient in the trauma ICU on nasal cannula. Patient was alert and reports pain in left hip. She is postoperative day 1 from operative fixation of the left intertrochantericfemur fracture Objective: Vitals: 05/25/24 0400 BP: 85/64 Pulse: (!) 115 Resp: (!) 29 Temp: 36.7 ??C (98.1 ??F) SpO2: 95% Physical Examination: No acute distress Non labored breathing Peripheral perfusion intact Focused Musculoskeletal Examination: Left lower extremity: Compressive Artur wrap in place without strike through Tib ant, gastroc, EHL/FHL intact Sensation intact to light touch in SP, DP, tibial, sural, saphenous distributions toes WWP Orthopedic Surgery Tertiary Exam Completed 05/25/24 Patient is diffusely tender throughout multiple body regions, this is consistent with prior examinations and she has difficulty following instructions with a focused physical exam. Patient appeared to have increased tenderness to palpation diffusely throughout her left upper extremity and left lower extremity. We have imaging of the femur through knee on the left and will add on x-rays of the tib-fib. Additionally we will order x-rays of the left humerus, elbow, forearm and follow these up. Data: Labs in last 18 hours: CBC WBC 14.10 (H) Hb 8.7 (L) Plt 179 Hct 28.4 (L) INR ??, PTT ??, Anti-Xa ?? BMP Na 140 Cl 103 BUN 108 (H) Glu 223 (H) K 4.6 Co2 22 Cr 2.44 (H) Lactate ?? Assessment & Plan: Kassy Cline is a 64 y.o. female patient with the following orthopedic injuries: Fall: NPO/PMC'd for 05/24, medical clearance Edited by: Judson Hwang MD at 05/23/2024 1646 - postoperative day 1 from operative fixation of the left intertrochanteric femur - patient will follow up in Orthopedic Trauma Clinic in approximately 2 weeks for wound check - orthopedic tertiary exam complete 05/25, x-rays ordered of the left tib fib, left elbow, forearm, humerus in Orthopedic surgery we will follow these if negative for fracture orthopedic tertiary examcomplete Mobility Orders Mobility Protocol: Ortho/Trauma/Spine Mobility Guidelines Spinal Precautions: No cranial, cervical or thoracolumbar spinal precautions necessary Extremity Precautions: Extremity Precautions Extremity: LLE Mobility Restrictions (LLE): Weight bear as tolerated (WBAT) Type of Brace (LLE): None Other mobility precautions: Other precautions Other mobility precautions: Other Other: Keep HOB 30 Degrees, OK to Reverse Trendelenburg. Kenton Garrison MD Orthopaedic Surgery PGY-1 [facility] Orthopaedic Trauma Service Pager: [phone] Orthopaedic Recon/Spine/Foot and Ankle Service Pager: [phone] Personal Pager: [phone] Cosigned by Piter Burns MD at 05/25/2024 5:47 PM EDT * Care Plan - Emmanuelle Valle - 05/25/2024 3:20 AM EDT Problem: Infection Goal: Absence of Infection Signs and Symptoms Outcome: Ongoing, Progressing Problem: Adult Inpatient Plan of Care Goal: Patient-Specific Goal (Individualized) Outcome: Ongoing, Progressing Flowsheets (Taken 05/24/20241999) Patient/Family-Specific Goals (Include Timeframe): patient will remain free from falls or injuries this shift Individualized Care Needs: q2 turns, patient safety, and pain management Anxieties, Fears or Concerns: pain control Goal: Absence of Hospital-Acquired Illness or Injury Outcome: Ongoing, Progressing Goal: Optimal Comfort and Wellbeing Outcome: Ongoing, Progressing Goal: Readiness for Transition of Care Outcome: Ongoing, Progressing Problem: Mobility Impairment Goal: Optimal Mobility Outcome: Ongoing, Progressing * Significant Event - Dick Pittman PA - 05/24/2024 4:10 PM EDT TRAUMA SURGERY TERTIARY SURVEY I performed a complete tertiary exam, reviewed patient history, lab studies and all available imaging. All traumatic or incidental findings have been documented as below: Past Medical History: Active Ambulatory Problems Diagnosis Date Noted Essential hypertension 06/14/2016 CKD (chronic kidney disease) 03/26/2016 Diabetes type 2, uncontrolled 06/14/2016 GERD (gastroesophageal reflux disease) 01/22/2019 Vitamin D deficiency 08/19/2016 Suicide attempt by drug ingestion, initial encounter ([facility]) 09/25/2022 Anxiety 09/25/2022 CHF (congestive heart failure) [place] 09/25/2022 Cirrhosis [place] 09/25/2022 COPD (chronic obstructive pulmonary disease) ([facility] 09/25/2022 Depression 09/25/2022 Diabetic neuropathy ([facility]) 09/25/2022 Hepatitis B 09/25/2022 Hepatitis C 09/25/2022 History of DVT (deep vein thrombosis) 09/25/2022 Hyperlipidemia 09/25/2022 IBS (irritable bowel syndrome) 09/25/2022 Mental disorder 09/25/2022 Nicotine dependence 09/25/2022 Restless legs syndrome 09/25/2022 Sleep apnea, obstructive 09/25/2022 TIA (transient ischemic attack) 09/25/2022 Type 2 diabetes mellitus without complications 09/25/2022 Resolved Ambulatory Problems Diagnosis Date Noted CKD (chronic kidney disease) stage 2, GFR 60-89 ml/min 02/23/2021 Atrial fibrillation ([facility]) 09/25/2022 Leukocytosis 09/25/2022 Hyperglycemia 09/25/2022 Overdose of undetermined intent Past Medical History: Diagnosis Date CKD (chronic kidney disease) stage 3, GFR 30-59 ml/min ([facility] Essential (primary) hypertension Past Surgical History: Surgical History[1] Home Medications: Prior to Admission medications Medication Sig Start Date End Date Taking? Authorizing Provider acetaminophen (Tylenol) 500 MG tablet Take 2 tablets by mouth every 6 hours as needed. Yes ProviderBeverley MD apixaban (Eliquis) 5 MG tablet Take 1 tablet by mouth in the morning and 1 tablet before bedtime. Yes ProviderBeverley MD ARIPiprazole (Abilify) 10 MG tablet Take 1 tablet by mouth every morning. Yes Provider, MD Beverley atorvastatin (Lipitor) 10 MG tablet Take 1 tablet by mouth daily. Yes ProviderBeverley MD bumetanide (Bumex) 1 MG tablet Take 1 tablet by mouth every morning. Yes ProviderBeverley MD busPIRone (Buspar) 10 MG tablet Take 1 tablet by mouth in the morning and 1 tablet before bedtime. Yes ProviderBeverley MD dapagliflozin (Farxiga) 5 MG tablet Take 1 tablet by mouth daily. Yes ProviderBeverley MD docusate sodium (Colace) 100 MG capsule Take 1 capsule by mouth in the morning and 1 capsule beforebedtime. Yes Beverley Gilmore MD famotidine (Pepcid) 20 MG tablet Take 1 tablet by mouth in the morning and 1 tablet before bedtime.Yes Beverley Gilmore MD Rcgqajvfooz-Wmgjtapji-Obpvup (Trelegy Ellipta) 100-62.5-25 MCG/ACT aerosol powder Inhale 1 puff every morning. Yes Beverley Gilmore MD gabapentin (Neurontin) 400 MG capsule Take 1 capsule by mouth 3 (three) times a day. Yes Beverley Gilmore MD guaiFENesin (Mucinex) 600 MG 12 hr tablet Take 2 tablets by mouth in the morning and 2 tablets before bedtime. Do not crush, chew, or split. Yes Beverley Gilmore MD insulin aspart (NovoLOG) 100 UNIT/ML injection pen Inject 6 Units under the skin 3 (three) times a day with meals. Plus sliding scale Yes Beverley Gilmore MD insulin glargine (Lantus) 100 UNIT/ML injection vial Inject 44 Units under the skin nightly. Yes Beverley Gilmore MD ipratropium-albuterol (Duo-Neb) 0.5-2.5 mg/3 mL nebulizer solution Take 3 mL by nebulization every 6 hours as needed for shortness of breath. Yes Beverley Glimore MD isosorbide mononitrate ER (Imdur) 30 MG 24 hr tablet Take 1 tablet by mouth every morning. Do not crush or chew. Yes Beverley Gilmore MD lidocaine (Lidoderm) 5 % patch Apply 1 patch topically daily. Remove & discard patch within 12 hours or as directed by MD. Yes Beverley Gilmore MD metoprolol tartrate (Lopressor) 25 MG tablet Take 1 tablet by mouth in the morning and 1 tablet before bedtime. Yes Beverley Gilmore MD oxyCODONE-acetaminophen (Percocet) 5-325 MG tablet Take 1 tablet by mouth 4 (four) times a day. YesProviBeverley cornejo MD polyethylene glycol (Miralax) 17 GM/SCOOP powder Take 17 g by mouth daily. Yes Beverley Gilmore MD sertraline (Zoloft) 100 MG tablet Take 2 tablets by mouth daily. Yes Beverley Gilmore MD sodium zirconium cyclosilicate (Lokelma) 5 g packet Take 1 packet by mouth in the morning and 1 packet before bedtime. Yes Beverley Gilmore MD telmisartan (MIcarDIS) 20 MG tablet Take 1 tablet by mouth daily. Yes Beverley Gilmore MD insulin lispro (Admelog) 100 UNIT/ML injection Inject 0-3 Units under the skin 2 (two) times a night. See After Visit Summary for instructions on how to take your insulin. 09/30/22 05/23/24 Yes Jeanne Ortiz MD insulin lispro (Admelog) 100 UNIT/ML injection Inject 0-5 Units under the skin 3 (three) times a day with meals. See After Visit Summary for instructions on how to take your insulin. 09/30/22 05/23/24 Yes Jeanne Ortiz MD Insulin Lispro (Admelog, HumaLOG) 100 UNIT/ML injection vial Inject 0.07 mL (7 Units) under the skin 3 (three) times a day with meals. 09/30/22 05/23/24 Yes Jeanne Ortiz MD lisinopril 5 MG tablet Take 1 tablet (5 mg) by mouth 1 (one) time each day. 10/01/22 05/23/24 Yes Jeanne Ortiz MD clopidogrel (Plavix) 75 MG tablet Take 1 tablet (75 mg) by mouth 1 (one) time each day. 05/23/24 Beverley Gilmore MD Continuous Blood Gluc Supervisor Particleboard (Dexcom G6 social work nurse) device Inject 1 Device under the skin if needed. Use as instructed 05/23/24 Beverley Gilmore MD Continuous Blood Gluc Sensor (Dexcom G6 Sensor) misc Use as directed and replace every 10 days 05/23/24 Beverley Gilmore MD Continuous Blood Gluc Transmit (Dexcom G6 transmitter) misc Inject under the skin if needed. Use asinstructed 05/23/24 Beverley Gilmore MD gabapentin (Neurontin) 300 MG capsule Take 1 capsule (300 mg) by mouth 3 (three) times a day. 01/26/21 05/23/24 Beverley Gilmore MD propranolol (Inderal) 10 MG tablet Take 1 tablet by mouth in the morning and 1 tablet in the evening and 1 tablet before bedtime. Do not take if systolic blood pressure less than 120 or heart rate isless than 60. 05/23/24 Beverley Gilmore MD Social History: Pt has reports that she has been smoking cigarettes. She started smoking about 50 years ago. She has a 50.3 pack-year smoking history. She has been exposed to tobacco smoke. She has never used smokeless tobacco. She reports that she does not drink alcohol and does not use drugs. (details as available below) Social History Substance and Sexual Activity Alcohol Use Never Social History Substance and Sexual Activity Drug Use Never Tobacco Use History[2] Audit-C for Alcohol Misuse Screening Lab Results Component Value Date ETOH <10 09/25/2022 Q1: How often did you have a drink containing alcohol in the past year? Never = 0 Q2: How many drinks did you have on a typical day when you were drinking in the past year? None = 0 Q3: How often did you have six or more drinks on one occasion in the past year? Never = 0 The AUDIT-C is scored on a scale of 0-12 (scores of 0 reflect no alcohol use). In men, a score of 4or more is considered positive; in women, a score of 3 or more is considered positive. Generally, the higher the AUDIT-C score, the more likely it is that the patient's drinking is affecting his/her health and safety. If screening positive (men = 4 women = 3), proceed with referral for alcohol misuse. TOTAL SCORE: 0 Brief Intervention Performed: Not indicated Referral to Treatment Made: Not indicated Injured Trauma Survivor Screen (ITSS) for Depression / PTSD Risk Before this injury: Have you ever taken a medication for, or been given a mental health diagnosis? Yes = +1 Has there ever been a time in your life you have been bothered by feeling down or hopeless or lost all interest in things you usually enjoyed for more than 2 weeks? Yes = +1 When you were injured or right after: Did you think you were going to ? No = +0 Do you think this was done to you intentionally? No = +0 Since your injury: Have you felt emotionally detached from your loved ones? No = +0 Do you find yourself crying and are unsure why? No = +0 Have you felt more restless, tense or jumpy than usual? No = +0 Have you found yourself unable to stop worrying? No = +0 Do you find yourself thinking that the world is unsafe and that people are not to be trusted? No = +0 Total Score: 2 0-1 = teaching 2-5 = Consult to Trauma Mental Health Professional or Metal Roofer 6-9 = Psychiatry Consult Tertiary exam as documented above. New diagnoses, need for imaging or specialty consultation identified as present on admission via tertiary survey: None Are there limits on this patient's care or advanced wishes/documents available? No [1] Past Surgical History: Procedure Laterality Date APPENDECTOMY N/A CARDIAC STENT N/A CARPAL TUNNEL RELEASE N/A CHOLECYSTECTOMY N/A COLONOSCOPY N/A HYSTERECTOMY N/A LUNG, WEDGE RESECTION N/A THORACOSCOPY N/A TONSILLECTOMY N/A TUBAL LIGATION N/A [2] Social History Tobacco Use Smoking Status Every Day Current packs/day: 1.00 Average packs/day: 1 pack/day for 50.3 years (50.3 ttl pk-yrs) Types: Cigarettes Start date: 1973 Passive exposure: Current Smokeless Tobacco Never * Hospital Course - Helena Sharma, GRIPS, VADIM - 05/24/2024 3:18 PM EDT Kassy Cline is a 64 y.o. female with a PMHx of CKD stage 3, Atrial Fibrillation on Eliquis, T2DM, COPD (intermittent 2L at baseline), Cirrhosis, CHF, Hypertension, Hyperlipidemia who presented on05/23 as a transfer from OSH following a ground level fall the day prior. Injuries include: L IT fx. Past 24 Hours: Patient is sitting up in chair eating lunch. Awake and alert. Anxious mood. VSS. On RA with no SOA or chest pain. NAEON. NAD. Patient reports that her pain is not controlled with current pain regimen. Denies nausea, vomiting, abd pain/discomfort, dizziness, SOA, or chest pain. Patient tolerating diet. Voiding spontaneously. Last BM was 05/31. Discussed with patient about subacute rehab. She statesshe is afraid to go due to her being her 4th fracture. Explained to patient about the type of rehaband how long per day she will need rehab to increase mobility. Patient showed understanding and agreed with plan. Patient is medically ready for subacute rehab. She will return to [facility] via [facility]. No concerns per patient or nursing at this time. Physical therapy and occupational therapy evaluated the patient during hospitalization and recommend subacute rehab. At the time of discharge the patient was hemodynamically stable, tolerating PO, voiding spontaneously, normal bowel function, mobilizing appropriately, with their pain controlled with PO medication. At this time, the patient has obtained the maximum benefit from the present hospital stay, and so will be discharged to [facility]. DVT Prophylaxis: Resume home Eliquis Procedures: 05/24: ORIF of L IT with CMN Incidental Findings: None Restrictions: WB: LLE weight-bearing as tolerated Orthopedic Wound Care: LLE: ARTUR wrap should be removed 72 hours following surgery, and then re-applied daily for swelling as needed taking care not to remove the sterile OR dressing underneath. If bandage becomes wet, soiled, or falls off it may be replaced with a clean dry gauze dressing as needed. May remove left knee bandages from traction pin sites 2-3 days after surgery; if dry, may then leave open to air or placeadditional dry dressing as needed. For medical questions or concerns after discharge, please contact the Orthopedic Transition Nurse at [phone] Tuesday through Tuesday 8:00 am to 2:30 pm. If you feel your concern is a medical emergency please call 911 immediately. Pain Medications: - You should take 650 mg Tylenol every 6 hours for mild - moderate pain. - You should take 500 mg methocarbamol 3 times per day for muscle spasms. - You have been prescribed pain medications to be taken as needed for severe pain. - You should take the stool softener prescribed as long as you are taking narcotics. - You may resume your previous medications unless otherwise instructed. Nutrition: - You may resume your normal diet as tolerated, focusing on liquids to keep yourself hydrated. Activity: - No driving while on narcotics Potential Issues: - It is normal to have some pain and soreness, especially around the incisions - A small amount of clear drainage from the incision may be expected, call the office if the drainage becomes bloody, purulent (pus), or foul-smelling - Call the office if you start to have increased redness, drainage, swelling, or increased pain around your incision - Call the office if you have a fever greater than 101 F - Call the office if you have severe abdominal discomfort, nausea and vomiting, or feeling unwell Follow up appointments: Follow up with PCP within one to two weeks after discharge for post hospitalization visit, to review incidental findings, and for management of chronic medications/conditions. Orthopedic surgery: Follow up on 06/12/2024 at 9:30AM with Bing Byres APRN @ Orthopaedic Surgery & Sports Medicine; [facility], [address], [address], [address], [place] [address], # [phone]. Follow up with trauma clinic as needed. [address], [address] [address], #[phone]. Questions or Concerns and Appointments: If there are questions or concerns after discharge from the hospital, please call [phone] and ask for Blue Surgery Nurse. Working hours are Tuesday - Tuesday 8:00 AM to 4:00 PM. After hours, weekends and holidays please call [phone] and ask for the resident operations support manager for [facility]. For appointments please call [phone]. Medication requests should be made between the hours of 9:00 AM to 3:00 PM Tuesday thru Tuesday. Please note that based upon recent changes to [place] law related to prescribing opioid pain medications, our providers will not provide refills on controlled medications after your hospital discharge following a major surgery or trauma. [place], [place] 201 KAR9:260. * Progress Notes - Belia Diaz P - 05/24/2024 2:33 PM EDT Case Management Adult Initial Progress Note Kassy Cline 64 y.o. female CSN: [id number] Admission: 05/23/2024 6:14 AM Primary Problem: Fall at home, initial encounter Guidance Consultant reviewed chart and spoke with patient's brother to complete this Initial Case Management Assessment. PCP: Joshua Urban MD (Inactive) Emergency Contact: Extended Emergency Contact Information Primary Emergency Contact: Sandy Kay Relation: Daughter Mining Analyst needed? No Secondary Emergency Contact: Hemant Cline Mobile Relation: Brother Preferred language: Hebrew Mining Analyst needed? No Insurance: Primary Visit Coverage Payer Plan Sponsor Code Group Number Group Name MEDICARE MEDICARE A & B Primary Visit Coverage Subscriber Subscriber ID Subscriber Name Subscriber [facility] Subscriber Address [id number] KASSY CLINE [phone] [address] [place] [address] Secondary Visit Coverage Payer Plan Sponsor Code Group Number Group Name MEDICAID-[facility] MEDICAID [facility] Z Secondary Visit Coverage Subscriber Subscriber ID Subscriber Name Subscriber [facility] Subscriber Address [id number] KASSY CLINE [id number] [place] [address] Patient information: Primary Caregiver: Self Support System: Immediate family Daily Living Activities: Functional Status: Minimum assistance Living Arrangements: Alf Type of Residence: residential/residential care [address] [id number] Smoker in the Home?: N/A Current DME: Equipment Currently Used at Home: wheelchair, manual, oxygen Current DME Provider: 3 L oxygen Income Information: Income Source: Disabled Income/Expense Information: Income meets expenses Current Resources Utilized: None Housing Circumstances-Z Codes: Housing Circumstances (select all that apply): None Applicable Anticipated Discharge Date: TBD Patient's Discharge Goal: Return to Nursing Facility Assistance Available at Discharge: Nursing Facility Discharge Transport: Medical/family Follow Up Transport: Family Home Health / Home Infusion / Outpatient Dialysis Services: Current DME Provider: 3 L oxygen Living Will/Advance Directive/Power of Newspaper Carriers Supervisor /Guardian: None reported. Pt's brother stated that pt's daughter is [place] however their relationship is strained. Brother does not have contact info for daughter. Social Drivers of Health Food Insecurity: No Food Insecurity (05/24/2024) Hunger Vital Sign Worried About Running Out of Food in the Last Year: Never true Ran Out of Food in the Last Year: Never true Alcohol Use: Not on file (12/31/2023) Housing Stability: Low Risk (05/24/2024) Housing Stability Vital Sign Unable to Pay for Housing in the Last Year: No Number of Times Moved in the Last Year: 0 Homeless in the Last Year: No Tobacco Use: High Risk (05/23/2024) Patient History Smoking Tobacco Use: Every Day Smokeless Tobacco Use: Never Passive Exposure: Current Transportation Needs: No Transportation Needs (05/24/2024) PRAPARE - Transportation Lack of Transportation (Medical): No Lack of Transportation (Non-Medical): No Depression: Not At Risk (06/20/2023) Received from [employer] Depression Calculation of above two rows: 0 Utilities: Not At Risk (05/24/2024) Utilities Threatened with loss of utilities: No Stress: No Stress Concern Present (06/20/2023) Received from [employer] Stress Stress means a situation in which a person feels tense, restless, nervous, or anxious, or is unableto sleep at night because his or her mind is troubled all the time. Do you feel this kind of str...: Not at all Intimate Partner Violence: Not At Risk (05/24/2024) Humiliation, Afraid, Rape, and Kick questionnaire Fear of Current or Ex-Partner: No Emotionally Abused: No Physically Abused: No Sexually Abused: No Physical Activity: Inactive (06/20/2023) Received from [employer] Physical Activity Number of minutes of exercise per week : 0 Social Connections: Unknown (06/20/2023) Received from [facility] Family and Community Support If for any reason you need help with day-to-day activities such as bathing, preparing meals, shopping, managing finances, etc., do you get the help you need?: I get all the help I need Feeling Lonely or Isolated: 0 Financial Resource Strain: Low Risk (05/24/2024) Overall Financial Resource Strain (CARDIA) Difficulty of Paying Living Expenses: Not hard at all Additional Comments: Pt presented to the hospital after a ground level fall. 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 Pt's brother sated that he provides transportation for pt. D/C plan is for pt to return back to [place] when medically ready. Pt's daughter's number in chart is a non working number, pt's brother did not have contact info for daughter.Pt went to OR today for operative fixation of the left intertrochanteric femur fracture. Continues in ICU level care. SW/CM will continue to follow for resource needs and dsipo planning. MATTI Ferguson, PRINTING EQUIPMENT MECHANIC Trauma/General Surgery ICU * Progress Notes - Mihaela Patrick APRN - 05/24/2024 2:09 PM EDT Trauma ICU Daily Progress Note 05/24/24 Kassy Cline HPI Kassy Cline is a 64 y.o. female presenting with a complex past medical history of CKD stage 3, atrial fibrillation on eliquis, COPD (intermittent 2L at baseline), CHF, hypertension, hyperlipidemia, presenting to the on 05/23 as a transfer from OSH due to experiencing a ground level the day prior. Injuries include: L IT fx 05/24: ORIF of L IT with CMN Interval: Drowsy but GCS 15. Pain controlled. Febrile to 102.6 and increased oxygen requirements. Cultured and started treatment for CAP vs COPD exacerbation. Echo and Pro-BNP non concerning for fluid overload. MAPs 55-65 and NSR. On 6L NVGood UOP, on bumex, Scr 2.48, hyperkalemic. Edited by: Mihaela Patrick APRN at 05/24/2024 1400 Relevant review of systems was obtained as able and is negative unless stated above in HPI. Vital signs: Visit Vitals BP (!) 103/42 Pulse 79 Temp 36.8 ??C (98.2 ??F) Resp 19 Ht 1.626 m (5' 4.02 ) Wt 75 kg (165 lb 5.5 oz) SpO2 (!) 86% BMI 28.37 kg/m?? Smoking Status Every Day BSA 1.84 m?? Intake/Output Summary (Last 24 hours) at 05/24/2024 1409 Last data filed at 05/24/2024 1200 Gross per 24 hour Intake 1550 ml Output 2815 ml Net -1265 ml Physical Exam: Physical Exam Vitals reviewed. Constitutional: Appearance: She is ill-appearing. Comments: Drowsy HENT: Head: Normocephalic. Right Ear: External ear normal. Left Ear: External ear normal. Nose: Nose normal. Mouth/Throat: Mouth: Mucous membranes are moist. Cardiovascular: Rate and Rhythm: Normal rate. Pulses: Normal pulses. Pulmonary: Effort: Pulmonary effort is normal. No respiratory distress. Breath sounds: Wheezing and rhonchi present. Abdominal: General: There is no distension. Palpations: Abdomen is soft. Musculoskeletal: Cervical back: Normal range of motion. Comments: L hip tenderness Skin: General: Skin is warm. Findings: Bruising present. Neurological: General: No focal deficit present. Mental Status: She is alert and oriented to person, place, and time. Lines/Drains/Tubes: Patient Lines/Drains/Airways Status Active Airway None O2 Delivery Method: Nasal cannula MD SUP: 14 cm H20 Insp Time (sec): 1.2 sec S RR: 10 MD SUP: 14 cm H20 Output by Drain (mL) 05/22/24 07 - 05/22/24 1859 05/22/24 190 - 05/23/24 0659 05/23/24 07 - 05/23/24 1859 05/23/24 190 - 05/24/24 0659 05/24/24 07 - 05/24/24 1409 Requested LDAs do not have output data documented. Labs in last 18 hours: CBC WBC 15.11 (H) Hb 10.2 (L) Plt 195 Hct 34.8 ANC ?? INR 1.5 (H), PTT ??, Anti-Xa ?? BMP Na 144 Cl 107 BUN 104 (H) Glu 223 (H) K 5.5 (H) Co2 22 Cr 2.31 (H) Ca 8.3 (L) iCa ?? Mg 1.9, Phos 6.5 (H) Lactate ?? LFT AST ?? AlkPhos ?? T Prot ?? ALK ?? Bili ?? Alb ?? D.Bili ?? Lab Trends: H/H Results from last 7 days Lab Units 05/24/24 1142 05/24/24 0017 05/23/24 0652 HEMOGLOBIN g/dL 10.2* 11.2 11.0* HEMATOCRIT % 34.8 36.3 36.0 INR Results from last 7 days Lab Units 05/24/24 0017 05/23/24 0652 INR 1.5* 1.6* Cr Results from last 7 days Lab Units 05/24/24 1142 05/24/24 0017 05/23/24 1324 CREATININE mg/dL 2.31* 2.48* 2.68* Radiology: I have personally reviewed and interpreted the most recent CXR and my interpretation is that it shows no acute changes. Medications reviewed. Vital signs reviewed. Labs reviewed. Radiography reviewed. Assessment and Plan: Medical Problems and Relevant Plans Hospital Problems POA * (Principal) Fall at home, initial encounter Not Applicable CKD (chronic kidney disease) Yes Overview Addendum 05/23/2024 9:38 AM by Alexis Ellis, DO -Previous baseline appears to be around 1.1 COPD (chronic obstructive pulmonary disease) ([facility]) Yes Overview Signed 05/23/2024 9:37 AM by Alexis Ellis, DO -Reportedly on home 2L nasal cannula Closed intertrochanteric fracture of left femur Yes Overview Signed 05/23/2024 11:53 AM by Rubén Martin MD Orthopedic surgery consultation Operative repair Hyperkalemia Yes Overview Signed 05/23/2024 7:25 AM by Alexis Ellis, DO -5.4 on arrival -Continue to monitor RAGHAV (acute kidney injury) ([facility]) Yes Overview Addendum 05/23/2024 9:38 AM by Alexis Ellis, DO -Creatine 2.92 on arrival -Baseline around 1.1 Frailty Yes Overview Signed 05/23/2024 11:51 AM by Rubén Martin MD Weak and wheelchair bound Gait disturbance Yes Closed fracture of left hip ([facility]/H[facility]) Unknown Non-Hospital Problems Essential hypertension Diabetes type 2, uncontrolled GERD (gastroesophageal reflux disease) Vitamin D deficiency Suicide attempt by drug ingestion, initial encounter ([facility]) Anxiety CHF (congestive heart failure) ([facility]/HCC) Cirrhosis ([facility]) Depression Diabetic neuropathy ([facility]) Hepatitis B Hepatitis C History of DVT (deep vein thrombosis) Hyperlipidemia IBS (irritable bowel syndrome) Mental disorder Nicotine dependence Restless legs syndrome Sleep apnea, obstructive TIA (transient ischemic attack) Type 2 diabetes mellitus without complications To Do: - Sched tylenol and robaxin, PRN oxy - Restart DVT ppx after OR - Restart home meds - Continue CAP treatment with Azithromycin and Ceftriaxone Edited by: Mihaela Ptarick APRN at 05/24/2024 1409 Mihaela Patrick APRN Procedures Cosigned by Alex Diaz MD at 05/24/2024 4:32 PM EDT Associated attestation - Alex Diaz MD - 05/24/2024 4:32 PM EDT I attest to being involved in providing substantive part of the medical decision making in patient care. Overnight increased O2 requirement and fevers. Cultured and started on antibiotics/steroids for COPD exacerbation versus CAP. No concern for fluid overload based on ECHO and BNP. Remains on home bumex. Taken to the OR by ortho this AM. Will reassess clinical status postoperatively. * Discharge Instr - Other Orders - Scott Krueger, RN - 05/24/2024 12:59 PM EDT Do not take out stitches or shila. Leave the bandage on. Left leg ARTUR wrap should be removed 72 hours following surgery, and then re- applied daily for swelling as needed taking care not to remove the sterile OR dressing underneath. If bandage becomes wet, soiled, or falls off it may be replaced with a clean dry gauze dressing as needed. May remove left knee bandages from traction pin sites 2-3 days after surgery; if dry, may then leave open to air or place additional dry dressing as needed. Shower at any time. Avoid soaking your wound. * Discharge Instr - Activity - Scott Krueger RN - 05/24/2024 12:58 PM EDT Move around as you are able. Do not drive while taking narcotic medications. Use assistive equipment as instructed. Weight bearing as tolerated through left leg. * Discharge Instr - AVS First Page - Scott Krueger RN - 05/24/2024 12:58 PM EDT Reasons to call: Feels warm or hot to the touch Is red or dark pink Is tight or swollen and looks shiny Becomes more tender or sore to the touch Wound smells bad Wound is draining pus, bleeding or coming open Temperature is above 101.5 F Pain is not relieved by medications * Anesthesia PACU Signout - Mahnaz Yoder DO - 05/24/2024 10:34 AM EDT Patient: Kassy Mary Kate Tri Anesthesia Type: general Vitals Value Taken Time BP 129/56 05/24/24 10:30 Temp 36.4 05/24/24 10:34 Pulse 72 05/24/24 10:33 Resp 17 05/24/24 10:33 SpO2 100 % 05/24/24 10:33 Vitals shown include unfiled device data. Anesthesia PACU Signout Patient location during evaluation: PACU Patient participation: complete - patient participated Level of consciousness: baseline and awake Pain management: adequate (pain score 0-3) Airway patency: natural airway Hydration status: acceptable PONV: none Cardiovascular status: acceptable and hemodynamically stable Respiratory status: acceptable, spontaneous ventilation, unassisted, nonlabored ventilation and nasal cannula Discharge Disposition: admit to inpatient unit Comments: Patient is s/p Procedure(s) and Anesthesia Type: * Left Intertroch Intramedullary Nail - General. Patient remains HDS on 6L NC, neurologically appropriate, pain is controlled, and tolerating PO w/oN/V. Patient is appropriate for discharge from PACU to ICU for continued postop care. Cosigned by Teresa Valiente MD at 05/24/2024 11:44 AM EDT Associated attestation - Teresa Valiente MD - 05/24/2024 11:44 AM EDT Agree with above assessment and evaluation from resident/BARREL STAVE INSPECTOR. * Significant Event - Stu Macias MD - 05/24/2024 8:09 AM EDT Orthopaedic Surgery Trauma--Significant Event Note: Kassy Cline is a 64 y.o.female, left intertrochanteric femur fracture, status post cephalomedullary nail. Attempted to contact family postoperatively. No family in the waiting room. No family available via phone as both numbers listed in her chart were contacted with no one picking up. Stu Macias MD, MPH PGY-5 Orthopaedic Surgery & Sports Medicine First Page: [facility] Fracture/Trauma Service Pager: [phone] Second Page/personal: [phone] * Op Note - Piter Burns MD - 05/24/2024 8:09 AM EDT Operative Note Date: 05/24/24 Location: [facility] Name: Kassy Cline, : 1960, Diagnoses: Pre-op Diagnosis Left intertrochanteric femur fracture Post-op Diagnosis Left intertrochanteric femur fracture Procedure(s): Open treatment of left intertrochanteric femur fracture with intramedullary nail fixation Attending Surgeon(s): * Piter Burns - Primary. I was present or immediately available for all parts of the procedure Railroad Watchman(s): * Stu Macias MD - Resident - Assisting Anesthesia: General ASA: ASA status not filed in the log. Blood Administration: Blood Product Administration History None Estimated Blood Loss: 150 Drains: Urethral Catheter Temperature probe (Active) Site Assessment Clean;Skin intact 05/24/24399 CAUTI: Collection Container Standard drainage bag;Collection container below bladder and tubing free of kinks 05/24/24399 CAUTI: Securement Method Securing device (Describe) 05/24/24399 CAUTI: Specimen Collection Port Covered with Alcohol Cap Yes 05/23/241999 CAUTI: Urinary Catheter Necessity Yes, meets criteria 05/23/241999 CAUTI: Urinary Catheter Necessity Reasons Q1-2 hourly urine output of critically ill patient 05/23/241999 Output (mL) 125 mL 05/24/24 0600 Implants Type Name Action Serial No. DRILL 3.2MM GUIDEWIRE THREADED PNT 400MM GLOBUS - [id number] Used, Not Implanted DRILL 3.2MM GUIDEWIRE THREADED PNT 285MM GLOBUS - [id number] Used, Not Implanted BALL-TIP GUIDEWIRE 3.2F8617MN - [id number] Implanted NAIL TI TROCHANTERIC [id number] 125DEG LT - [id number] Implanted Screw SCREW 10.5X85MM AUTOBAHN TI LAG GLOBUS MED - SNA - [id number] Implanted NA Screw SCREW 5X35MM TI AUTOBAHN NATE LOCKING GLOBUS MED - SNA - [id number] Implanted NA Indications: Kassy Cline is an 64 y.o. female who is having surgery for her left intertrochanteric femur fracture. I discussed the injury with the patient and recommended surgical fixation to restore stability and allow early mobilization. Risks and benefits of surgery were discussed in detail,and informed consent was obtained. Narrative: After appropriate consent was obtained, the patient was taken to the operating room after which they underwent general endotracheal anesthesia without complication. The patient was then transferred to operating table in a supine position. All bony prominences were well padded. The left lower extremity was then prepped and draped in a sterile fashion. Perioperative antibiotics were confirmed. A time-out was performed identifying the correct patient, operative site, and procedure. All staff were in agreement. Attention was 1st turned to placing a skeletal traction pin in the distal femur from amedial to lateral direction. A smooth Steinmann pin was placed percutaneously just cranial to the patella, and this was inserted across the femur and allowed to exit the lateral side. Traction bow was then applied with sterile rope hanging off the end of the bed to aid with traction and manipulation of the fracture. Next, attention was turned to obtaining the starting point. The guide pin was inserted percutaneously to achieve the appropriate starting point at the greater trochanter. This was confirmed on AP andlateral radiographs. This was then inserted into bone, and an incision was made over the wire through skin, subcutaneous tissue, muscle and fascia. Opening Reamer was then passed and oscillated into bone to gain entry to the intramedullary canal. A guidewire was then inserted and passed into the distal femur and confirmed radiographically. A small incision was made about the anterolateral hip through which blunt dissection was performed to gain access to the fracture site. A small hook was placed to manipulate the fracture site and achieve improved reduction. Next, reaming was then performed until appropriate chatter was appreciated. The final implant was then chosen, and this was assembledwith the insertion handle on the back table. This was passed over the ball-tipped guidewire and malleted into position. Next, the aiming jig was used to place the cephalomedullary locking device. Incision was made about the lateral proximal femur through skin, subcutaneous tissue, and ITB band. Thetrocar was inserted. Guide pin was then placed into the femoral head and confirmed to be in appropriate position on AP and lateral radiographs. Reaming was then performed, and the lag screw was seated with a screwdriver. This was then locked proximally with a screwdriver. Next, the distal interlocking screw was placed using the aiming jig. The trocar was placed through the previously made lateralincision, and this was drilled, measured, and placed without complication. Aiming jig was removed, and final fluoroscopic images were obtained which showed stable alignment and fixation of the fracture. The wounds were then irrigated with normal saline. Layered closure was then performed using Vicryl suture for the deep and dermal layer. Skin was closed with sutures. Dry dressings were applied. Skeletal traction pin was removed with dressings applied. Drapes were removed. The patient was awakened from anesthesia and transferred to the hospital bed. They were then transferred to the PACU for further recovery. No intraoperative complications were noted. Postoperative plan: The patient will be weight-bearing as tolerated to the left lower extremity. They will be monitored postoperatively for pain control, neurovascular checks, antibiotic prophylaxis,DVT prophylaxis, and physical therapy. When stable for discharge the patient will follow up in clinic in 2-3 weeks for skin check. Complications: None; patient tolerated the procedure well. Submitted by: Piter Burns MD - 05/24/2024 * Brief Op Note - Stu Macias MD - 05/24/2024 8:09 AM EDT Date: 05/24/24 Location: [facility] Name: Kassy Cline, : 1960, Diagnoses: Pre-op Diagnosis Left Intertrochanteric Femur Fracture, Closed Post-op Diagnosis Same Procedure(s): Open Treatment of Left Intertrochanteric Femur Fracture with Cephalomedullary Nail, Intermediate Length Attending Surgeon(s): * Piter Burns - Primary Railroad Watchman(s): * Stu Macias MD - Resident - Assisting Anesthesia: General ASA: ASA status not filed in the log. Blood Administration: Blood Product Administration History None Estimated Blood Loss: 50mL Tourniquet Time: None Drains: Urethral Catheter Temperature probe (Active) Site Assessment Clean;Skin intact 05/24/24399 CAUTI: Collection Container Standard drainage bag;Collection container below bladder and tubing free of kinks 05/24/24399 CAUTI: Securement Method Securing device (Describe) 05/24/24399 CAUTI: Specimen Collection Port Covered with Alcohol Cap Yes 05/23/241999 CAUTI: Urinary Catheter Necessity Yes, meets criteria 05/23/241999 CAUTI: Urinary Catheter Necessity Reasons Q1-2 hourly urine output of critically ill patient 05/23/241999 Output (mL) 125 mL 05/24/24 0600 Implants Type Name Action Serial No. DRILL 3.2MM GUIDEWIRE THREADED PNT 400MM GLOBUS - [id number] Used, Not Implanted DRILL 3.2MM GUIDEWIRE THREADED PNT 285MM GLOBUS - [id number] Used, Not Implanted BALL-TIP GUIDEWIRE 3.0O3832PS - [id number] Implanted NAIL TI TROCHANTERIC [id number] 125DEG LT - [id number] Implanted Screw SCREW 10.5X85MM AUTOBAHN TI LAG GLOBUS MED - SNA - [id number] Implanted NA Screw SCREW 5X35MM TI AUTOBAHN NATE LOCKING GLOBUS MED - SNA - [id number] Implanted NA Specimen: None Findings: See Operative Note. Complications: None; patient tolerated the procedure well. Postoperative Plan: Returning to assigned room and primary team Postoperative Imaging: XR, Hip, Left, 2views WBAT LLE PT/OT for postop mobilization Abx ppx: 23hr abx, Ancef F/U AM labs Pain control: per primary Bowel regimen: per primary DVT ppx: per primary Incision closed with nylons Dressing: Xeroform, 4x4, Covaderm, Artur wrap Dressing Changes: none, keep in place until f/u appointment Bathing: sponge bath only F/U: Dr. Piter Burns, Ortho Trauma on 06/11/24 in 2wk at [facility] Ortho Trauma Submitted by: Stu Macias MD - 05/24/2024 Cosigned by Ptier Burns MD at 05/24/2024 2:34 PM EDT * Progress Notes - Alberto Garrison MD - 05/24/2024 3:06 AM EDT Orthopaedic Trauma Surgery Progress Note 05/24/24 Subjective: No acute events overnight. Patient in the trauma ICU on nasal cannula. She was able to wake up and endorse pain in the left hip, overall somnolent. Discussed plan for operative fixation of the left hip today, she has been nothing by mouth since midnight. Objective: Vitals: 05/24/24 0300 BP: 89/53 Pulse: 69 Resp: 21 Temp: 37.8 ??C (100 ??F) SpO2: 100% Physical Examination: No acute distress Non labored breathing Peripheral perfusion intact Focused Musculoskeletal Examination: Left lower extremity: Tib ant, gastroc, EHL/FHL intact Sensation intact to light touch in SP, DP, tibial, sural, saphenous distributions Palpable DP pulse, toes WWP Data: Labs in last 18 hours: CBC WBC 17.42 (H) Hb 11.2 Plt 212 Hct 36.3 INR 1.5 (H), PTT , Anti-Xa >2.00 (HH) BMP Na 142 Cl 103 BUN 104 (H) Glu 125 (H) K 4.8 Co2 24 Cr 2.48 (H) Lactate 0.7 Assessment & Plan: Kassy Cline is a 64 y.o. female patient with the following orthopedic injuries: Fall: NPO/PMC'd for 05/24, medical clearance Edited by: Judson Hwang MD at 05/23/2024 1646 - patient has been nothing by mouth since midnight, she was marked and consented for operative fixation of the left intertrochanteric femur fracture and will go to OR today 05/24 - attempted to perform orthopedic tertiary exam however patient not alert enough to participate, will follow up once patient is more alert Mobility Orders Mobility Protocol: Ortho/Trauma/Spine Mobility Guidelines Spinal Precautions: No cranial, cervical or thoracolumbar spinal precautions necessary Extremity Precautions: Extremity Precautions Extremity: LLE Mobility Restrictions (LLE): Non-weight bear (NWB) Type of Brace (LLE): None Other mobility precautions: Other precautions Other mobility precautions: Other Other: Keep HOB 30 Degrees, OK to Reverse Trendelenburg. Kenton Garrison MD Orthopaedic Surgery PGY-1 [facility] Orthopaedic Trauma Service Pager: [phone] Orthopaedic Recon/Spine/Foot and Ankle Service Pager: [phone] Personal Pager: [phone] Cosigned by Piter Burns MD at 05/24/2024 2:34 PM EDT * Significant Event - Stu Macias MD - 05/23/2024 4:57 PM EDT Orthopaedic Surgery Trauma--Significant Event Note: Kassy Cline is a 64 y.o.female, L IT femur fx. Planning for operative intervention tomorrow, 05/24. Patient is nothing by mouth from today can be removed. Patient will be nothing by mouth at midnight. Stu Macias MD, MPH PGY-5 Orthopaedic Surgery & Sports Medicine First Page: [facility] Fracture/Trauma Service Pager: [phone] Second Page/personal: [phone] * Consults - Manan Aaron DO - 05/23/2024 12:52 PM EDTAssociated Order(s): Inpatient consult to Anesthesia Inpatient consult to Anesthesia Consult performed by: Manan Aaron DO Consult ordered by: Piter Burns MD Reason for consult: FI block Acute Pain Service Kassy Cline is a 64 y.o. female with a past medical history significant for CAD s/p PCI on Plavix, HFpEF, CKD III, DM II, Cirrhosis, atrial fibrillation on Eliquis (last dose a.m. on 05/23/2024),COPD on home oxygen, history of DVTs who presents as transfer from OSH with a known left intertrochanteric femur fracture after a fall from standing at home earlier this morning. Patient denies head s trike or loss of consciousness. Denies pain in the other extremities. Denies numbness and tingling in the affected extremity. At baseline, patient mainly uses a wheelchair for mobility. She resides in a detention and family reports occasional recreational drug use. Patient complaining of 12/10 pain on her left hip. Pain team was consulted for a FI block, risks and benefits were explained to patient and she is amiable to block. Nerve block to be performed in ICU once patient is transferred there from ED. Cosigned by Ross Chi MD at 05/23/2024 1:58 PM EDT Associated attestation - Ross Chi MD - 05/23/2024 1:58 PM EDT I saw and evaluated the patient with the resident/fellow. I discussed the case with the resident/fellow and agree with the findings and plan as documented. * H&P - Alexis Ellis DO - 05/23/2024 9:38 AM EDTAssociated Order(s): Consult to Trauma Surgery Trauma Alert? No Consult to Trauma Surgery Consult performed by: Alexis Ellis DO Consult ordered by: Chip White MD Reason for consult: Fall, left intertrochanteric fracture Time of Consultation: 929 Time of Trauma Evaluation: 934 Arrival Date: 05/23/2024 Arrival Time: 613 Referring Hospital: [facility] Injury Date: 05/23/2024 Injury Time: Afternoon/evening Transport Mode: Mode of Arrival: Ambulance Mechanism of Injury Fall Distance ground level Farm Related Injury: no Work Related Injury: no History Of Present Illness Kassy Cline is a 64 y.o. female presenting with a complex past medical history of CKD, atrial fibrillation on eliquis, COPD (intermittent 2L at baseline), CHF, hypertension, hyperlipidemia, presenting to the emergency department as a transfer from OSH due to experiencing a ground level yesterday. Patient states that she mostly uses her wheelchair to mobilize; however, yesterday attempted to stand to use the bathroom and fell. Patient states that she did not hit her head, did not experience loss of consciousness. While at OSH, patient was found to have left femoral intertrochanteric fracture, and was sent to for further evaluation. Patient denies pain in other locations, but does state she is experiencing pain in her left hip, and down the extremity. Patient states that she is experiencing shortness of breath, but denies chest pain, abdominal pain, neck, back pain. Old Chart Reviewed: yes Loss of Consciousness: no Past Medical History She has a past medical history of Anxiety, Atrial fibrillation (CMS/HCC), CHF (congestive heart failure) (CMS/HCC), Cirrhosis (CMS/HCC), CKD (chronic kidney disease) stage 3, GFR 30-59 ml/min (CMS/HCC), COPD (chronic obstructive pulmonary disease) (CMS/HCC), Depression, Diabetic neuropathy (CMS/HCC), Essential (primary) hypertension, GERD (gastroesophageal reflux disease), Hepatitis B, Hepatitis C, History of DVT (deep vein thrombosis), Hyperlipidemia, IBS (irritable bowel syndrome), Mental disorder, Nicotine dependence, Restless legs syndrome, Sleep apnea, obstructive, TIA (transient ischemic attack), and Type 2 diabetes mellitus without complications. Reviewed as documented above Surgical History She has a past surgical history that includes Tonsillectomy (N/A); Appendectomy (N/A); Cholecystectomy (N/A); Tubal ligation (N/A); cardiac stent (N/A); Hysterectomy (N/A); Carpal tunnel release (N/A); Colonoscopy (N/A); lung, wedge resection (N/A); and thoracoscopy (N/A). Reviewed as documented above Family History Family History[1] Reviewed as documented above Social History She reports that she has been smoking cigarettes. She started smoking about 50 years ago. She has a50.3 pack-year smoking history. She has been exposed to tobacco smoke. She has never used smokelesstobacco. She reports that she does not drink alcohol and does not use drugs. Reviewed as documented above Allergies Acetaminophen-codeine, Aspirin, Erythromycin, Naproxen, Penicillins, Bupropion, Pregabalin, Sulfamethoxazole-trimethoprim, Advair diskus [fluticasone- salmeterol], Celecoxib, Duloxetine hcl, and Tramadol Reviewed as documented above Medications Current Medications[2] Reviewed as documented above Occupational History Occupational history[3] Employer: No address on file. Reviewed as documented above Immunizations reviewed VACCINE/DOSE DATE DATE DATE DATE DATE Flu 12/01/2016 12/20/2016 06/04/2017 03/06/2021 11/26/2022 Tetanus Pneumovax 12/23/2014 12/26/2015 Shingles Review of Systems Relevant review of systems was obtained as able and is negative unless stated above in HPI. Physical Exam Vitals and nursing note reviewed. Constitutional: Appearance: She is normal weight. She is ill-appearing. HENT: Head: Normocephalic. Right Ear: External ear normal. Left Ear: External ear normal. Nose: Comments: Nasal cannula at 5 Mouth/Throat: Pharynx: Oropharynx is clear. Eyes: Conjunctiva/sclera: Conjunctivae normal. Pupils: Pupils are equal, round, and reactive to light. Cardiovascular: Rate and Rhythm: Normal rate. Pulses: Normal pulses. Heart sounds: Normal heart sounds. Pulmonary: Breath sounds: Wheezing and rhonchi present. Abdominal: Tenderness: There is no abdominal tenderness. Musculoskeletal: General: Tenderness (Left hip) present. Cervical back: Normal range of motion. No tenderness. Skin: General: Skin is warm. Capillary Refill: Capillary refill takes less than 2 seconds. Neurological: Mental Status: She is alert. Sensory: No sensory deficit. Motor: Weakness (secondary to pain of left hip) present. Rectal exam was deferred. Last Recorded Vitals Blood pressure 102/85, pulse 67, temperature 36.8 ??C (98.2 ??F), resp. rate 22, weight 74.8 kg (165 lb), SpO2 94%. Gaurav Clyde Coma Scale Best Eye Response: Spontaneous Best Verbal Response: Oriented Best Motor Response: Follows commands Clyde Coma Scale Score: 15 Intubated No Recent Results Labs in last 18 hours CBC WBC 15.26 (H) Hb 11.0 (L) Plt 225 Hct 36.0 ANC ?? INR 1.6 (H), PTT ??, Anti-Xa ?? BMP Na 141 Cl 103 BUN 104 (H) Glu 119 (H) K 5.4 (H) Co2 27 Cr 2.92 (H) Ca 9.4 iCa ?? Mg ??, Phos ?? Lactate ?? LFT AST ?? AlkPhos ?? T Prot ?? ALK ?? Bili ?? Alb ?? D.Bili ?? Radiology FAST:Not Done Images associated: N/A Images personally reviewed and consistent with the following: Plain Films: Left internal trochanteric femur fracture with normal position of the femoral head within the acetabulum. CT Scans: Performed at OSH: ct head negative, no acute findings in abdomen, no acute findings in cervical spine Angiography: Not performed Impression: Fall, left intertrochanteric fracture, RAGHAV on CKD, COPD Medical Problems Problem List * (Principal) Fall at home, initial encounter Essential hypertension CKD (chronic kidney disease) Overview Addendum 05/23/2024 9:38 AM by Rhonda, Alexis R, DO -Previous baseline appears to be around 1.1 Diabetes type 2, uncontrolled GERD (gastroesophageal reflux disease) Vitamin D deficiency Suicide attempt by drug ingestion, initial encounter ([facility]) Anxiety CHF (congestive heart failure) ([facility]) Cirrhosis ([facility]) COPD (chronic obstructive pulmonary disease) ([facility]) Overview Signed 05/23/2024 9:37 AM by Alexis Ellis DO -Reportedly on home 2L nasal cannula Depression Diabetic neuropathy ([facility]) Hepatitis B Hepatitis C History of DVT (deep vein thrombosis) Hyperlipidemia IBS (irritable bowel syndrome) Mental disorder Nicotine dependence Restless legs syndrome Sleep apnea, obstructive TIA (transient ischemic attack) Type 2 diabetes mellitus without complications Closed intertrochanteric fracture of left femur Overview Signed 05/23/2024 11:53 AM by Rubén Martin MD Orthopedic surgery consultation Operative repair Hyperkalemia Overview Signed 05/23/2024 7:25 AM by Alexis Ellis DO -5.4 on arrival -Continue to monitor RAGHAV (acute kidney injury) ([facility]) Overview Addendum 05/23/2024 9:38 AM by Alexis Ellis DO -Creatine 2.92 on arrival -Baseline around 1.1 Frailty Overview Signed 05/23/2024 11:51 AM by Rubén Martin MD Weak and wheelchair bound Gait disturbance Plan: -Admit to [facility] ICU -Follow ortho recs for left femur -Consider nephology consult for RAGHAV/CKD vs gentle fluid in presence of heart failure -NPO -Holding DVT -Consider repeat echo Alexis Ellis DO [1] Family History Problem Relation Name Age of Onset Conversions - Other Mother Dialysis patient Conversions - Other Maternal Grandmother Dialysis patient Conversions - Other Father's Sister qjdbl-[id number] deficiency Conversions - Other Father's Brother njusu-9-ordiylgayre deficiency Conversions - Other Cousin nqwus-4-pdqpmyydltw deficiency Cardiac disorder Other COPD Other Diabetes Mother Diabetes Maternal Grandmother Diabetes Other Kidney disease Mother Kidney disease Maternal Grandmother Other cancer Other Coronary artery disease Other Family history of coronary artery disease Conversions - Other Other diabetes mellitus type 1 [2] Current Facility-Administered Medications Medication Dose Route Frequency Provider Last Rate Last Admin lactated Ringer's infusion 500 mL 500 mL Intravenous Once Trudi Dela Cruz MD mupirocin (Bactroban) 2 % ointment 1 Application 1 Application Each Nostril BID Alexis Ellis DO sodium chloride 0.9 % flush 10 mL 10 mL Intravenous q12h Alexis Ellis DO And sodium chloride 0.9 % flush 10 mL 10 mL Intravenous PRN Alexis Ellis DO tranexamic acid (Cyklokapron) IVPB 1,000 mg 1,000 mg Intravenous Once Judson Hwang MD Current Outpatient Medications Medication Sig Dispense Refill apixaban (Eliquis) 5 MG tablet Take 1 tablet (5 mg) by mouth 2 (two) times a day. clopidogrel (Plavix) 75 MG tablet Take 1 tablet (75 mg) by mouth 1 (one) time each day. Continuous Blood Gluc Supervisor Particleboard (Dexcom G6 social work nurse) device Inject 1 Device under the skin if needed. Use as instructed Continuous Blood Gluc Sensor (Dexcom G6 Sensor) misc Use as directed and replace every 10 days Continuous Blood Gluc Transmit (Dexcom G6 transmitter) misc Inject under the skin if needed. Use asinstructed gabapentin (Neurontin) 300 MG capsule Take 1 capsule (300 mg) by mouth 3 (three) times a day. insulin lispro (Admelog) 100 UNIT/ML injection Inject 0-3 Units under the skin 2 (two) times a night. See After Visit Summary for instructions on how to take your insulin. 1.8 mL 11 insulin lispro (Admelog) 100 UNIT/ML injection Inject 0-5 Units under the skin 3 (three) times a day with meals. See After Visit Summary for instructions on how to take your insulin. 4.5 mL 11 Insulin Lispro (Admelog, HumaLOG) 100 UNIT/ML injection vial Inject 0.07 mL (7 Units) under the skin 3 (three) times a day with meals. 10 mL 0 lisinopril 5 MG tablet Take 1 tablet (5 mg) by mouth 1 (one) time each day. 30 tablet 11 propranolol (Inderal) 10 MG tablet Take 1 tablet (10 mg) by mouth 3 (three) times a day. Do not take if systolic blood pressure less than 120 or heart rate is less than 60 [3] Cosigned by Rubén Martin MD at 05/23/2024 11:57 AM EDT Associated attestation - Rubén Martin MD - 05/23/2024 11:57 AM EDT I saw and evaluated the patient with the resident/fellow. I discussed the case with the resident/fellow and agree with the findings and plan as documented. Trauma consult after fall approx 18 hours district captain to and transfer from referring hospital for definitive care. We reviewed all pertinent labs, xrays and sap pp consultant reports and determined a plan of care. Full ATLS evaluation was completed and pt requires hospitalization due to fracture with need for operative intervention. Below is detailed plan of care Airway: intact Breathing : equal Circulation: no hypotension Pt with significant co-morbidities and critical care needs for pulmonary toilet and monitoring ongoing renal function. Will plan ICU admission, montgomery placement, discussion with Orthopedic surgery regarding plan for surgery. Discussed the plan with the patient at bedside and she reports her daughter is her next of kin. Rubén Martin MD, FACS Acute Care Surgery General Surgery/Trauma/Critical Care * Consults - Bing Byers, GRIPS - 05/23/2024 8:28 AM EDTAssociated Order(s): IP CONSULT TO ORTHOPAEDICS Orthopedic Surgery Trauma Consult Time Consulted: 0700 Time Patient Evaluated: 0700 HPI: Kassy Cline is a 64 y.o. female with a past medical history significant for CAD s/p PCI onPlavix, HFpEF, CKD III, DM II, Cirrhosis, atrial fibrillation on Eliquis (last dose a.m. on 05/23/2024), COPD on home oxygen, history of DVTs who presents as transfer from OSH with a known left intertrochanteric femur fracture after a fall from standing at home earlier this morning. Patient denies head strike or loss of consciousness. Denies pain in the other extremities. Denies numbness and tingling in the affected extremity. At baseline, patient mainly uses a wheelchair for mobility. She resides in a detention at baseline. Last Meal: 7 p.m. on 05/22/2024 Past Medical History: CHF, atrial fibrillation (on Eliquis last dose 05/23/2024), COPD (on home oxygen), type 2 diabetes, Past Surgical History Surgical History[1] hx of right IT fx s/p IMN w/ Dr. Rowe (2019) Family History: Reviewed and found to be non contributory to HPI/ml Medications: Current Medications[2] Allergies: Allergies[3] Metal Allergy: No History of MRSA: Remote history of MRSA in her perineum several years in the past. Social History Smoker/Non-Smoker: former smoker Alcohol: Denies Illicit substance use: Denies Lives in [place], [place] Employment Status: Retired ROS: a 14 point review of systems was conducted and was negative except aforementioned in the HPI. Physical Exam General: NAD, responsive to all questions Vitals: Vitals: 05/23/24 0820 BP: 92/67 Pulse: 65 Resp: 23 Temp: SpO2: 97% Psych: Aox3, appropriate mood and affect HEENT: NCAT, cranial nerves intact Resp: Good effort, symmetrical chest rise. Skin: no palpable masses, no rashes or lesions, except specifically mentioned below on each extremity Musculoskeletal Exam Neck: Neck non-tender to palpation, no step-off Chest: Clavicles non tender to palpation Spine: Cervical spine non tender to palpation, no step-off Pelvis: stable to AP/Lat compression RUE: Skin intact, no deformity, soft compartments, no pain with passive stretch, non-tender to palpation ROM: Full/painless/stable at shoulder, elbow, and wrist Motor: 5/5 ER/IR, 5/5 Delt, 5/5 Bic, 5/5 Tri, 5/5 WF, 5/5 WE, 5/5 FF, 5/5 FE, 5/5 Fabd, 5/5 EPL, 5/5 FPL Sensory: Sensation intact to light touch in axillary, radial, medial, ulnar nn. Vascular: 2+ radial pulse, digits WWP LUE: Superficial skin tears over the lateral dorsal aspect of the distal humerus, no expressible hematoma, no deformity, soft compartments, no pain with passive stretch, non-tender to palpation alongthe bony prominences of the left upper extremity. ROM: Full/painless/stable at shoulder, elbow, and wrist Motor: 5/5 ER/IR, 5/5 Delt, 5/5 Bic, 5/5 Tri, 5/5 WF, 5/5 WE, 5/5 FF, 5/5 FE, 5/5 Fabd, 5/5 EPL, 5/5 FPL Sensory: Sensation intact to light touch in axillary, radial, medial, ulnar nn. Vascular: 2+ radial pulse, digits WWP RLE: Skin intact, no deformity, soft compartments, no pain with passive stretch, non-tender to palpation ROM: Full/painless/stable at hip, knee and ankle Motor: Habd, HF, KE, KF, TA, GSC, EHL, FHL, Ever Sensory: diminished baseline to light touch deep peroneal, superficial peroneal, tibial, sural, andsaphenous nn. (Neuropathy) Vascular: 2+ dorsalis pedis and posterior tibial pulse, digits WWP LLE: Skin intact, shortened and externally rotated, soft compartments, no pain with passive stretch, tender to palpation at the greater trochanter, pain with logroll ROM: Able to actively flex and extend at the ankle and great toe Motor: TA, GSC, EHL, 4 FHL, Ever Sensory: diminished baseline to light touch deep peroneal, superficial peroneal, tibial, sural, andsaphenous nn. Vascular: 2+ dorsalis pedis and posterior tibial pulse, digits WWP Lab Results Component Value Date WBC 15.26 (H) 05/23/2024 HGB 11.0 (L) 05/23/2024 HCT 36.0 05/23/2024 MCV 83 05/23/2024 PLT 225 05/23/2024 No results found for: CRP Lab Results Component Value Date SEDRATE 17 06/01/2017 Lab Results Component Value Date HGBA1C 9.3 (H) 10/01/2022 Lab Results Component Value Date GLUCOSE 119 (H) 05/23/2024 BUN 104 (H) 05/23/2024 CREATININE 2.92 (H) 05/23/2024 BCR 36 05/23/2024 NA 141 05/23/2024 K 5.4 (H) 05/23/2024 CL 103 05/23/2024 CO2 27 05/23/2024 CA 8.4 (L) 12/12/2019 ALBUMIN 3.3 (L) 10/01/2022 ALKPHOS 103 10/01/2022 BILITOT 0.3 10/01/2022 Imaging Xrays (and CT/MRI if available) reviewed and demonstrate the following: Dedicated imaging of the left hip demonstrates a left intertrochanteric femur fracture Assessment: Kassy Cline is a 64 y.o. female with a left intertrochanteric femur fracture Plan: -Patient would benefit from IMN to L IT femur fx -Patient needs medical clearance prior to OR. Currently on Plavix and Xarelto. BUN 104. K+5.4. Patient best suited for Medicine admission. Patient's records are at [facility]. Likely will need new ECHO if recent ECHO not found in [facility]'s records. -FIB ordered. -WB status: NWB LLE -NPO at midnight -hold DVT ppx -recommend tight glycemic control Bing Byers APRN Department of Orthopedic Surgery and Sports Medicine Consult Pager: [phone] Service Pager: [phone] [1] Past Surgical History: Procedure Laterality Date APPENDECTOMY N/A CARDIAC STENT N/A CARPAL TUNNEL RELEASE N/A CHOLECYSTECTOMY N/A COLONOSCOPY N/A HYSTERECTOMY N/A LUNG, WEDGE RESECTION N/A THORACOSCOPY N/A TONSILLECTOMY N/A TUBAL LIGATION N/A [2] Current Facility-Administered Medications: lactated Ringer's infusion 500 mL, 500 mL, Intravenous, Once, Trudi Dela Cruz MD Current Outpatient Medications: apixaban (Eliquis) 5 MG tablet, Take 1 tablet (5 mg) by mouth 2 (two) times a day., Disp: , Rfl: clopidogrel (Plavix) 75 MG tablet, Take 1 tablet (75 mg) by mouth 1 (one) time each day., Disp: , Rfl: Continuous Blood Gluc Supervisor Particleboard (Dexcom G6 social work nurse) device, Inject 1 Device under the skin if needed. Use as instructed, Disp: , Rfl: Continuous Blood Gluc Sensor (Dexcom G6 Sensor) misc, Use as directed and replace every 10 days, Disp: , Rfl: Continuous Blood Gluc Transmit (Dexcom G6 transmitter) misc, Inject under the skin if needed. Use as instructed, Disp: , Rfl: gabapentin (Neurontin) 300 MG capsule, Take 1 capsule (300 mg) by mouth 3 (three) times a day., Disp: , Rfl: insulin lispro (Admelog) 100 UNIT/ML injection, Inject 0-3 Units under the skin 2 (two) times a night. See After Visit Summary for instructions on how to take your insulin., Disp: 1.8 mL, Rfl: 11 insulin lispro (Admelog) 100 UNIT/ML injection, Inject 0-5 Units under the skin 3 (three) times a day with meals. See After Visit Summary for instructions on how to take your insulin., Disp: 4.5 mL, Rfl: 11 Insulin Lispro (Admelog, HumaLOG) 100 UNIT/ML injection vial, Inject 0.07 mL (7 Units) under the skin 3 (three) times a day with meals., Disp: 10 mL, Rfl: 0 lisinopril 5 MG tablet, Take 1 tablet (5 mg) by mouth 1 (one) time each day., Disp: 30 tablet, Rfl:11 propranolol (Inderal) 10 MG tablet, Take 1 tablet (10 mg) by mouth 3 (three) times a day. Do not take if systolic blood pressure less than 120 or heart rate is less than 60, Disp: , Rfl: [3] Allergies Allergen Reactions Acetaminophen-Codeine Swelling Aspirin Hives, Rash and Swelling Erythromycin Rash, Hives, Angioedema and Other - please document in the comment field Naproxen Angioedema and Hives Penicillins Hives, Angioedema and Rash Bupropion Anxiety, Other - please document in the comment field and Hallucinations Mental status changes Mental status changes Pregabalin Other - please document in the comment field and Hallucinations Mental status changes Mental status changes Sulfamethoxazole-Trimethoprim Other - please document in the comment field, Hives and Nausea Advair Diskus [Fluticasone-Salmeterol] Unknown - Patient states they do not know rxn details Allergy per home pharmacy Celecoxib Rash and Other - please document in the comment field Younger-Aayush syndrome Duloxetine Hcl Rash and Other - please document in the comment field Tramadol Other - please document in the comment field Cosigned by Piter Burns MD at 05/24/2024 7:30 AM EDT Associated attestation - Piter Burns MD - 05/24/2024 7:30 AM EDT I saw and evaluated the patient. I discussed the case with the resident/fellow and agree with the findings and plan as documented. The patient was a left intertrochanteric femur fracture that occurred from a fall. I recommended surgical fixation to stabilize the fracture and allow early mobilization. Risks and benefits of surgery were discussed in detail. Risks include but are not limited to pain, bleeding, scarring, damage to surrounding nerves and blood vessels, nonunion, malunion, need for recurrent procedures, loss of life/limb. Informed consent was obtained. Examination of the left lowerextremity reveals tenderness to palpation about the hip/thigh. Sensation to light touch is intact but diminished to the SPN, DPN, sural, saphenous, tibial nerve distribution. EHL, FHL, tibialis anterior, gastroc soleus are intact. Capillary refill is brisk to the toes. The patient will undergo surgery and be followed postoperatively. All questions were answered. * Progress Notes - Sai Edward, PharmD - 05/23/2024 7:16 AM EDT Specialty Pharmacy HCV Protocol Exclusion ED - Navin Exclusions from Treatment Protocol: [] Patient has life threatening emergent condition or injury in the ED [] Current or previous history of decompensated cirrhosis including, but not limited to: ascites, hepatic encephalopathy, upper GI bleed, hepatic decompensation, or history of liver cancer/hepatocellular carcinoma (HCC) [x] HCV Ab (-)/RNA nondetected [] HIV Positive or indeterminate result [] Hepatitis B sAg positive [] Previous HCV Direct Acting Antiviral (DAA) treatment [] Possible [] [] Patient followed by Hospice [] Patient followed by Transplant [] Life expectancy <1 year [] Other Documented Previous HCVAb+? Yes Previous HCVAb+ Date: 09/25/2022 Documented Previous HCVRNA+? No Previous HCVRNA+ Date: N/A Current HCVAb+? No Current HCVAb+ Date: N/A Initial HCV treatment work up was unable to be performed If unable to perform, please select reason: Exclusion from Simplified Treatment RNA result needed to determine if patient has active HCV infection. Per available chart review, pt had course of Harvoni from GI in 2019 and achieved SVR4 but not SVR12. (SVR12 labs not available forreview.) Pt was prescribed Harvoni but unclear if pt began medication as script in [facility] was cancelled. RNA results from 2022 indicates pt does not have active infection. No need for further workup at this time, but if subsequent HCV RNA comes back positive, pt will require referral to GI. Tristin DugganD, JONAS Hepatitis C ED Clinical Pharmacist Secure Chat: [facility] * Significant Event - Alexa Lawrence MD - 05/23/2024 7:00 AM EDT Patient seen at bedside. L IT fx transferred from OSH. No other concerns on exams, has some superficial skin abrasions on LUE. NVI in LLE. Orthopedic Surgery Tertiary Exam Completed 05/23/24 No additional areas of tenderness or deformity noted upon palpation and ROM of upper and lower extremities (excluding known injuries). Full consult note to follow. Alexa Parikh?MD [facility] Orth[facility] * ED Provider Notes - Trudi Dela Cruz MD - 05/23/2024 6:14 AM EDT Images from the original note were not included. - HPI Chief Complaint Patient presents with Fall HPI 64 year old female with PMH significant for COPD on 3L NC, a fib on eliquis, diabetes, CKD, HFpEF, history of hyperkalemia who presents after a fall with concern for a hip fracture. Patient reports she fell earlier in the day onto her left hip, denies hitting her head or LOC. Patient reports she has also felt sick for the past week with a progressive cough. Patient History Medical History[1] Surgical History[2] Family History[3] Social History[4] Allergies: Allergies[5] Physical Exam ED Triage Vitals [05/23/24 0619] Temp Heart Rate Resp BP 36.8 ??C (98.2 ??F) 66 23 119/61 SpO2 Temp src Heart Rate Source Patient Position (!) 88 % -- -- -- BP Location FiO2 (%) -- -- Physical Exam Constitutional: Appearance: She is ill-appearing. She is not toxic-appearing. HENT: Head: Normocephalic and atraumatic. Nose: Nose normal. Mouth/Throat: Mouth: Mucous membranes are dry. Pharynx: Oropharynx is clear. Eyes: General: No scleral icterus. Extraocular Movements: Extraocular movements intact. Conjunctiva/sclera: Conjunctivae normal. Pupils: Pupils are equal, round, and reactive to light. Cardiovascular: Rate and Rhythm: Normal rate and regular rhythm. Pulmonary: Comments: Diffuse crackles bilaterally Abdominal: General: Abdomen is flat. Tenderness: There is no abdominal tenderness. There is no guarding. Musculoskeletal: General: Tenderness (left hip) present. Right lower leg: No deformity or tenderness. Comments: Left leg externally rotated, pain with movement Skin: General: Skin is warm and dry. Capillary Refill: Capillary refill takes 2 to 3 seconds. Neurological: Mental Status: She is alert and oriented to person, place, and time. Gaurav Coma Scale Score: 15 ED Course & MDM - Assessment: 64 y.o. female presents to ED with complaint of hip fracture. It should be noted that the chronic conditions includes COPD on 3LNC, CKD, afib on eliquis, diabetes, HFpEF, which currently is not at goal therapy. This complicates the clinical picture because it Comorbidities: may be exacerbating symptoms, increases the amount and complexity of data to be reviewed, and increases the risk for morbidity. Upon arrival, patient is hemodynamically stable, afebrile, saturating low 90s on 3L NC, has evidence of cough and crackles on examination, left hip tender to palpation, externally rotated. Patient reports she fell earlier yesterday, fell on her left hip. She did not hit her head or have LOC, she ayla a blood thinner. She reports progressive cough the past week. Differential Diagnosis: hip fracture, hyperkalemia, RAGHAV, sepsis, pneumonia, COPD exacerbation, heart failure exacerbation. Ruling out the most morbid condition drove my assessment. In order to fully explore the differential diagnosis the following treatments and tests were ordered: ED Medication Administration from 05/23/2024 0440 to 05/23/2024933 Date/Time Order Dose Route Action 05/23/2024 0803 EDT bumetanide (Bumex) injection 1 mg 1 mg Intravenous Given All Other Orders Ordered Status Ordering Provider 05/23/24933 Weigh patient Daily Acknowledged ALEXIS ELLIS 05/23/24933 Chlorhexidine Wipes Daily Acknowledged ALEXIS ELLIS 05/23/24933 Update First Call Provider Assignment Until discontinued Completed ALEXIS ELLIS 05/23/24933 Blood gas, venous Once Acknowledged ALEXIS ELLIS 05/23/24933 Full code Continuous Acknowledged ALEXIS ELLIS 05/23/24933 Diet effective now Canceled ALEXIS ELLIS 05/23/24933 Mobility Orders Until discontinued Acknowledged ALEXIS ELLIS 05/23/24933 Sequential compression device Until discontinued Comments: SCDs must be in place and turned on EXCEPT when ACTIVELY ambulating. ALEXIS Diggs 05/23/24933 Do Not Give Nicotine Replacement Until discontinued Acknowledged ALEXIS ELLIS 05/23/24933 Admit to inpatient Once Acknowledged ALEXIS ELLIS 05/23/24933 Notify Provider Until discontinued Acknowledged ALEXIS ELLIS 05/23/24933 Vital Signs Until discontinued Comments: Every 1Hr x8, Then Every 2hrs Thereafter. ALEXIS Diggs 05/23/24933 Routine ICU Bedside Monitoring Until discontinued Acknowledged ALEXIS ELLIS 05/23/24933 Continuous Pulse Oximetry Until discontinued Acknowledged ALEXIS ELLIS 05/23/24933 Intake and Output - Strict Per unit protocol ALEXIS Diggs 05/23/24933 Neuro checks Until discontinued Comments: Every 1Hr x4, Then Every 4Hrs x6, Then Every 8Hrs Thereafter. ALEXIS Diggs 05/23/24933 Pulse checks Until discontinued Comments: Every 1Hr x4, Then Every 4Hrs x6, Then Every 8Hrs Thereafter. ALEXIS Diggs 05/23/24933 Neurovascular checks Until discontinued Comments: Every 1Hr x4, Then Every 4Hrs x6, Then Every 8Hrs Thereafter. Acknowledged ALEXIS ELLIS 05/23/24933 Insert peripheral IV Once Placed in And Linked Group Acknowledged ALEXIS ELLIS 05/23/24933 Saline lock IV Once Placed in And Linked Group Acknowledged ALEXIS ELLIS 05/23/24933 Multi Drug Resistance Test Once Acknowledged ALEXIS ELLIS 05/23/24933 Cale auris Surveillance by PCR Once Acknowledged ALEXIS ELLIS 05/23/24905 Consult to Trauma Surgery Once Specialty: Trauma Surgery Provider: (Not yet assigned) Completed TRUDI DELA CRUZ 05/23/24844 Once Specialty: Orthopaedic Surgery Provider: (Not yet assigned) Canceled JUDSON HWANG 05/23/24844 Inpatient consult to Anesthesia Once Comments: [phone] - Page the Anesthesia Acute Pain Service: [phone]; [phone] - Call the [facility] Division Engineer: [phone]. Specialty: Anesthesiology Provider: (Not yet assigned) Acknowledged JUDSON HWANG 05/23/24844 Nursing communication Contact TATYANA to move the patient to 2TU STAR Bed ([id number]) vs PACU Bed ([phone] or if STAR bed is unavailable) based on bed availability and time of day for Fascia-Iliaca Block administration and monitoring. Prioritize Bed... Once Comments: Contact TATYANA to move the patient to 2TU STAR Bed ([phone]) vs PACU Bed ([phone] or if STAR bed is unavailable) based on bed availability and time of day for Fascia-Iliaca Block administration and monitoring. Prioritize Bed on 9-200 Post-Block. Acknowledged JUDSON HWANG 05/23/24821 Vital signs for transfusion Until discontinued Comments: Check vital signs immediately prior to transfusion, 15 minutes into transfusion, every hour and after completion of transfusion. Acknowledged JUDSON HWANG 05/23/24821 Prepare Leukocyte Reduced RBC: 2 Units, Leukocyte reduced (CMV reduced risk) Blood - Once Preliminary result JUDSON HWANG 05/23/24 0741 Once Specialty: Internal Medicine Provider: (Not yet assigned) Canceled TRUDI DELA CRUZ 05/23/24 0655 Extra Tubes Once Final result PITER BURNS R 05/23/24 0656 Light Green Top PROCEDURE ONCE Final result PITER BURNS R 05/23/24 0656 Gold Top PROCEDURE ONCE Final result PITER BURNS R 05/23/24 0655 BNP STAT Final result TRUDI DELA CRUZ 05/23/24 0647 Consult to Orthopaedic Surgery Once Specialty: Orthopaedic Surgery Provider: (Not yet assigned) Completed TRUDI DELA CRUZ 05/23/24 0629 ED Protocol - HIV 1/2 Antibody/Antigen Screen w/Reflex to HIV 1/2 Differentiation Once Final result ALEXA LAWRENCE M 05/23/24 0629 ED HIV 1/2 Antibody/Antigen Screen w/Reflex to HIV 1/2 Differentiation PROCEDURE ONCE Final result ALEXA LAWRENCE M 05/23/24 0629 XR Hip Left Stress View Once Final result ALEXA LAWRENCE M 05/23/24 0629 XR Chest 1 View One time imaging Final result ALEXA LAWRENCE M 05/23/24 0629 Type and Screen Once Final result ALEXA LAWRENCE M 05/23/24 0629 Prothrombin Time/INR Once Final result ALEXA LAWRENCE M 05/23/24 0629 Diet effective now Canceled ALEXA LAWRENCE M 05/23/24 0629 CBC W/O Differential Once Final result ALEXA LAWRENCE M 05/23/24 0629 Basic Metabolic Panel, Plasma Once Final result ALEXA LAWRENCE M 05/23/24 0629 Prepare Leukocyte Reduced RBC: 2 Units Blood - Once Preliminary result ALEXA LAWRENCE M 05/23/24 0629 XR Hip Left 2 or 3 Views Including Pelvis Once Final result ALEXA LAWRENCE M 05/23/24 0629 XR Femur Left 2+ Views Once Final result ALEXA LAWRENCE M 05/23/24 0629 XR Knee Left 3 Views Once Final result ALEXA LAWRENCE M 05/23/24 0620 EKG now - STAT (adult) Once Final result [facility] ED Course as of 05/23/24 1034 TueMay 23, 2024 06 Upon arrival, patient is hemodynamically stable, afebrile, saturating 91% on 6L NC. Patient reports she was walking in her living facility yesterday when she fell, hitting her left hip. She reports pain in her left hip, denies pain elsewhere. [OM] 0652 Ortho consulted for hip fracture. [OM] 0728 Basic Metabolic Panel, Plasma(!) Acute kidney injury, patient with chronic kidney disease. Potassium also elevated, per chart reviewpatient has had an issue with this in the past [OM] 0729 BNP Within normal limits [OM] 0800 Will give patient a dose of Bumex for volume overload [OM] 0830 EKG now - STAT (adult) Independently interpreted by me as 64 beats per minute, no evidence of peaked T waves, no evidence of acute ST elevation or depression. [OM] 1018 XR Chest 1 View Independently interpreted by me as significant for evidence of bilateral congestion, no evidence ofnew focal consolidation [OM] 1028 Had a discussion with Hospital medicine as well as trauma about appropriate admission for the patient as she has multiple medical problems on top of her hip fracture. Patient admitted to SICU. [OM] ED Course User Index [OM] Trudi Dela Cruz MD Clinical Impressions as of 05/23/24 1034 Closed fracture of left hip, initial encounter (CMS/[facility]) COPD exacerbation (CMS/[facility]) Hyperkalemia RAGHAV (acute kidney injury) (CMS/[facility]) Disposition: admit to SICU Social Determinates of Health Risks (including Economic Stability, Education and level of understanding, Healthcare access and quality and concerning social factors): Poor health literacy and Poor social support ED Prescriptions None Disposition Admit Admitting/Attending Physician: RUBÉN MARTIN [[id number]] Provider Care Team: SGT ICU 1 [211] Are they the primary team?: Yes [1] - [1] Past Medical History: Diagnosis Date Anxiety Atrial fibrillation (CMS/HCC) CHF (congestive heart failure) (CMS/HCC) Cirrhosis (CMS/HCC) CKD (chronic kidney disease) stage 3, GFR 30-59 ml/min (CMS/HCC) COPD (chronic obstructive pulmonary disease) (CMS/HCC) Depression Diabetic neuropathy (CMS/HCC) Essential (primary) hypertension GERD (gastroesophageal reflux disease) Hepatitis B Hepatitis C History of DVT (deep vein thrombosis) Hyperlipidemia IBS (irritable bowel syndrome) Mental disorder Nicotine dependence Restless legs syndrome Sleep apnea, obstructive TIA (transient ischemic attack) Type 2 diabetes mellitus without complications [2] Past Surgical History: Procedure Laterality Date APPENDECTOMY N/A CARDIAC STENT N/A CARPAL TUNNEL RELEASE N/A CHOLECYSTECTOMY N/A COLONOSCOPY N/A HYSTERECTOMY N/A LUNG, WEDGE RESECTION N/A THORACOSCOPY N/A TONSILLECTOMY N/A TUBAL LIGATION N/A [3] Family History Problem Relation Name Age of Onset Conversions - Other Mother Dialysis patient Conversions - Other Maternal Grandmother Dialysis patient Conversions - Other Father's Sister [id number] deficiency Conversions - Other Father's Brother [id number] deficiency Conversions - Other Cousin cvvlu-[id number] deficiency Cardiac disorder Other COPD Other Diabetes Mother Diabetes Maternal Grandmother Diabetes Other Kidney disease Mother Kidney disease Maternal Grandmother Other cancer Other Coronary artery disease Other Family history of coronary artery disease Conversions - Other Other diabetes mellitus type 1 [4] Tobacco Use Smoking status: Every Day Current packs/day: 1.00 Average packs/day: 1 pack/day for 50.3 years (50.3 ttl pk-yrs) Types: Cigarettes Start date: 1974 Passive exposure: Current Smokeless tobacco: Never Vaping Use Vaping status: Never Used Substance Use Topics Alcohol use: Never Drug use: Never [5] Allergies Allergen Reactions Acetaminophen-Codeine Swelling Aspirin Hives, Rash and Swelling Erythromycin Rash, Hives, Angioedema and Other - please document in the comment field Naproxen Angioedema and Hives Penicillins Hives, Angioedema and Rash Bupropion Anxiety, Other - please document in the comment field and Hallucinations Mental status changes Mental status changes Pregabalin Other - please document in the comment field and Hallucinations Mental status changes Mental status changes Sulfamethoxazole-Trimethoprim Other - please document in the comment field, Hives and Nausea Advair Diskus [Fluticasone-Salmeterol] Unknown - Patient states they do not know rxn details Allergy per home pharmacy Celecoxib Rash and Other - please document in the comment field Younger-Aayush syndrome Duloxetine Hcl Rash and Other - please document in the comment field Tramadol Other - please document in the comment field Trudi Dela Cruz MD Resident 05/23/24 [id number] Cosigned by Chip White MD at 05/29/2024 10:32 AM EDT Associated attestation - Chip White MD - 05/29/2024 10:32 AM EDT Final diagnoses: [S72.002A] Closed fracture of left hip, initial encounter ([facility]) [J44.1] COPD exacerbation ([facility]) [E87.5] Hyperkalemia [N17.9] RAGHAV (acute kidney injury) ([facility]) I saw and evaluated the patient with the resident/fellow. I discussed the case with the resident/fellow and agree with the findings and plan as documented. * ED Triage Notes - Geri Ortega RN - 05/23/2024 6:14 AM EDT Pt presents via EMS from OSH after a fall at approx 0230. Pt was getting up to go to the bathroom, lost balance, and fell. C/o L hip pain after fall, OSH sent pt for L hip fx. LLE appears shortened. -LOC, +BT on eliquis for clots and a-fib. GCS 15 on arrival, EMS reports pt is very groggy after pain meds from OSH. documented in this encounter Plan of Treatment Upcoming Encounters Date Type Department Care Team (Late st Contact Info) Description 08/27/2024 9:30 AM EDT Office Visit [facility] Orthopaedic Surgery & Sports Medicine [address], [address] [place] [address] Piter Burns MD [address] [place] [address] Pending Results Name Type Priority Associated Diagnoses Date /Time Prepare Leukocyte Reduced RBC: 2 Units Blood Bank Routine 05/23/2024 6:28 AM EDT Prepare Leukocyte Reduced RBC: 2 Units, Leukocyte reduced (CMV reduced risk) Blood Bank Routine 05/23/2024 8:21 AM EDT documented as of this encounter Procedures Procedure Name Priority Date/Time Associated Diagnosis Comments POCT GLUCOSE METER UNSOLICITED RESULTS Routine 06/01/2024 11:41 AM EDT POCT GLUCOSE METER UNSOLICITED RESULTS Routine 06/01/2024 7:26 AM EDT POCT GLUCOSE METER UNSOLICITED RESULTS Routine 05/31/2024 8:16 PM EDT POCT GLUCOSE METER UNSOLICITED RESULTS Routine 05/31/2024 4:29 PM EDT POCT GLUCOSE METER UNSOLICITED RESULTS Routine 05/31/2024 11:48 AM EDT PAP THERAPY Routine 05/31/2024 9:00 AM EDT PEP THERAPY Routine 05/31/2024 9:00 AM EDT POCT GLUCOSE METER UNSOLICITED RESULTS Routine 05/31/2024 8:11 AM EDT OXYGEN THERAPY Routine 05/31/2024 8:00 AM EDT CBC W/O DIFFERENTIAL Pending Discharge 05/31/2024 4:43 AM EDT BASIC METABOLIC PANEL, PLASMA Pending Discharge 05/31/2024 4:43 AM EDT PAP THERAPY Routine 05/31/2024 3:00 AM EDT POCT GLUCOSE METER UNSOLICITED RESULTS Routine 05/30/2024 9:18 PM EDT PAP THERAPY Routine 05/30/2024 9:00 PM EDT PEP THERAPY Routine 05/30/2024 9:00 PM EDT POCT GLUCOSE METER UNSOLICITED RESULTS Routine 05/30/2024 8:26 PM EDT OXYGEN THERAPY Routine 05/30/2024 8:00 PM EDT POCT GLUCOSE METER UNSOLICITED RESULTS Routine 05/30/2024 4:34 PM EDT POCT GLUCOSE METER UNSOLICITED RESULTS Routine 05/30/2024 12:23 PM EDT PAP THERAPY Routine 05/30/2024 9:00 AM EDT OXYGEN THERAPY Routine 05/30/2024 8:00 AM EDT POCT GLUCOSE METER UNSOLICITED RESULTS Routine 05/30/2024 7:46 AM EDT POCT GLUCOSE METER UNSOLICITED RESULTS Routine 05/30/2024 3:14 AM EDT PAP THERAPY Routine 05/30/2024 3:00 AM EDT PEP THERAPY Routine 05/30/2024 3:00 AM EDT VITAMIN D 25 HYDROXY Routine 05/30/2024 12:03 AM EDT CBC W/O DIFFERENTIAL Routine 05/30/2024 12:03 AM EDT BASIC METABOLIC PANEL, PLASMA Routine 05/30/2024 12:03 AM EDT PAP THERAPY Routine 05/29/2024 9:00 PM EDT PEP THERAPY Routine 05/29/2024 9:00 PM EDT POCT GLUCOSE METER UNSOLICITED RESULTS Routine 05/29/2024 8:14 PM EDT OXYGEN THERAPY Routine 05/29/2024 8:00 PM EDT POCT GLUCOSE METER UNSOLICITED RESULTS Routine 05/29/2024 4:49 PM EDT PAP THERAPY Routine 05/29/2024 3:00 PM EDT PEP THERAPY Routine 05/29/2024 3:00 PM EDT XR CHEST 1 VIEW Routine 05/29/2024 12:03 PM EDT ECG ADULT STAT 05/29/2024 11:40 AM EDT POCT GLUCOSE METER UNSOLICITED RESULTS Routine 05/29/2024 11:09 AM EDT PAP THERAPY Routine 05/29/2024 9:00 AM EDT PEP THERAPY Routine 05/29/2024 9:00 AM EDT OXYGEN THERAPY Routine 05/29/2024 8:00 AM EDT POCT GLUCOSE METER UNSOLICITED RESULTS Routine 05/29/2024 7:28 AM EDT CBC W/O DIFFERENTIAL Routine 05/29/2024 3:50 AM EDT BASIC METABOLIC PANEL, PLASMA Routine 05/29/2024 3:50 AM EDT POCT GLUCOSE METER UNSOLICITED RESULTS Routine 05/29/2024 3:35 AM EDT PAP THERAPY Routine 05/29/2024 3:00 AM EDT PEP THERAPY Routine 05/29/2024 3:00 AM EDT PAP THERAPY Routine 05/28/2024 9:00 PM EDT PEP THERAPY Routine 05/28/2024 9:00 PM EDT POCT GLUCOSE METER UNSOLICITED RESULTS Routine 05/28/2024 8:28 PM EDT OXYGEN THERAPY Routine 05/28/2024 8:00 PM EDT POCT GLUCOSE METER UNSOLICITED RESULTS Routine 05/28/2024 4:53 PM EDT PAP THERAPY Routine 05/28/2024 3:00 PM EDT POCT GLUCOSE METER UNSOLICITED RESULTS Routine 05/28/2024 11:21 AM EDT PAP THERAPY Routine 05/28/2024 9:00 AM EDT OXYGEN THERAPY Routine 05/28/2024 8:00 AM EDT POCT GLUCOSE METER UNSOLICITED RESULTS Routine 05/28/2024 7:39 AM EDT XR CHEST 1 VIEW Routine 05/28/2024 5:58 AM EDT PAP THERAPY Routine 05/28/2024 3:00 AM EDT PEP THERAPY Routine 05/28/2024 3:00 AM EDT IONIZED CALCIUM, WHOLE BLOOD Routine 05/28/2024 2:46 AM EDT CBC W/O DIFFERENTIAL Routine 05/28/2024 2:46 AM EDT BASIC METABOLIC PANEL, PLASMA Routine 05/28/2024 2:46 AM EDT POCT GLUCOSE METER UNSOLICITED RESULTS Routine 05/27/2024 11:29 PM EDT PAP THERAPY Routine 05/27/2024 9:00 PM EDT PEP THERAPY Routine 05/27/2024 9:00 PM EDT OXYGEN THERAPY Routine 05/27/2024 8:00 PM EDT POCT GLUCOSE METER UNSOLICITED RESULTS Routine 05/27/2024 7:58 PM EDT POCT GLUCOSE METER UNSOLICITED RESULTS Routine 05/27/2024 4:38 PM EDT POCT GLUCOSE METER UNSOLICITED RESULTS Routine 05/27/2024 11:45 AM EDT PAP THERAPY Routine 05/27/2024 11:44 AM EDT PAP THERAPY Routine 05/27/2024 11:44 AM EDT PAP THERAPY Routine 05/27/2024 11:44 AM EDT PAP THERAPY Routine 05/27/2024 11:44 AM EDT PEP THERAPY Routine 05/27/2024 11:44 AM EDT PEP THERAPY Routine 05/27/2024 11:44 AM EDT PEP THERAPY Routine 05/27/2024 11:44 AM EDT PEP THERAPY Routine 05/27/2024 11:44 AM EDT POCT GLUCOSE METER UNSOLICITED RESULTS Routine 05/27/2024 8:52 AM EDT OXYGEN THERAPY Routine 05/27/2024 8:00 AM EDT POCT GLUCOSE METER UNSOLICITED RESULTS Routine 05/27/2024 2:35 AM EDT EXTRA TUBE LAVENDER TOP Routine 05/27/2024 12:46 AM EDT IONIZED CALCIUM, WHOLE BLOOD Routine 05/27/2024 12:46 AM EDT EXTRA TUBES Routine 05/27/2024 12:46 AM EDT PHOSPHORUS, PLASMA Routine 05/27/2024 12:46 AM EDT MAGNESIUM, PLASMA Routine 05/27/2024 12:46 AM EDT BASIC METABOLIC PANEL, PLASMA Routine 05/27/2024 12:46 AM EDT POCT GLUCOSE METER UNSOLICITED RESULTS Routine 05/26/2024 9:01 PM EDT OXYGEN THERAPY Routine 05/26/2024 8:00 PM EDT POCT GLUCOSE METER UNSOLICITED RESULTS Routine 05/26/2024 5:39 PM EDT POCT GLUCOSE METER UNSOLICITED RESULTS Routine 05/26/2024 1:20 PM EDT ECG ADULT STAT 05/26/2024 12:38 PM EDT POCT GLUCOSE METER UNSOLICITED RESULTS Routine 05/26/2024 9:11 AM EDT OXYGEN THERAPY Routine 05/26/2024 8:00 AM EDT XR CHEST 1 VIEW Routine 05/26/2024 2:50 AM EDT CBC W/O DIFFERENTIAL Routine 05/26/2024 1:34 AM EDT PHOSPHORUS, PLASMA Routine 05/26/2024 1: 34 AM EDT MAGNESIUM, PLASMA Routine 05/26/2024 1:3 4 AM EDT BASIC METABOLIC PANEL, PLASMA Routine 05/26/2024 1:34 AM EDT OXYGEN THERAPY Routine 05/25/2024 10:52 PM EDT OXYGEN THERAPY Routine 05/25/2024 10:52 PM EDT POCT GLUCOSE METER UNSOLICITED RESULTS Routine 05/25/2024 9:09 PM EDT POCT GLUCOSE METER UNSOLICITED RESULTS Routine 05/25/2024 6:14 PM EDT POCT GLUCOSE METER UNSOLICITED RESULTS Routine 05/25/2024 1:23 PM EDT XR TIBIA FIBULA LEFT 2+ VIEWS Routine 05/25/2024 8:25 AM EDT XR FOREARM LEFT 2 VIEWS Routine 05/25/2024 8:25 AM EDT XR ELBOW LEFT 3+ VIEWS Routine 8:25 AM EDT XR HUMERUS LEFT 2+ VIEWS Routine 05/25/2024 8:25 AM EDT POCT GLUCOSE METER UNSOLICITED RESULTS Routine 05/25/2024 8:09 AM EDT POCT GLUCOSE METER UNSOLICITED RESULTS Routine 05/25/2024 3:31 AM EDT XR CHEST 1 VIEW Routine 05/25/2024 3:09 AM EDT CBC W/O DIFFERENTIAL Routine 05/25/2024 12:25 AM EDT PHOSPHORUS, PLASMA Routine 05/25/2024 12:25 AM EDT MAGNESIUM, PLASMA Routine 05/25/2024 12:25 AM EDT BASIC METABOLIC PANEL, PLASMA Routine 05/25/2024 12:25 AM EDT POCT GLUCOSE METER UNSOLICITED RESULTS Routine 05/24/2024 9:20 PM EDT OXYGEN THERAPY Routine 05/24/2024 8:00 PM EDT POCT GLUCOSE METER UNSOLICITED RESULTS Routine 05/24/2024 6:27 PM EDT CBC W/O DIFFERENTIAL Routine 05/24/2024 11:42 AM EDT PHOSPHORUS, PLASMA Routine 05/24/2024 11:42 AM EDT MAGNESIUM, PLASMA Routine 05/24/2024 11:42 AM EDT BASIC METABOLIC PANEL, PLASMA Routine 05/24/2024 11:42 AM EDT POCT GLUCOSE METER UNSOLICITED RESULTS Routine 05/24/2024 11:10 AM EDT XR HIP LEFT 2 OR 3 VIEWS STAT 05/24/2024 10:42 AM EDT POCT GLUCOSE METER UNSOLICITED RESULTS Routine 05/24/2024 10:10 AM EDT FL LESS THAN 1 HOUR (NON-REPORTABLE) Routine 05/24/2024 9:27 AM EDT OXYGEN THERAPY Routine 05/24/2024 8:00 AM EDT INSERTION, INTRAMEDULLARY JESICA, FEMUR 05/24/2024 7:13 AM EDT Closed fracture of left hip, initial encounter ([facility]) POTASSIUM, PLASMA Routine 05/24/2024 1:2 1 AM EDT BLOOD CULTURE (AEROBIC/ANAEROBIC SET) STAT 05/24/2024 12:25 AM EDT N-TERMINAL PROBNP, PLASMA STAT 05/24/2024 12:17 AM EDT PROTHROMBIN TIME(PT) / INR Routine 05/24/2024 12:17 AM EDT CBC W/O DIFFERENTIAL Routine 05/24/2024 12:17 AM EDT PHOSPHORUS, PLASMA Routine 05/24/2024 12:17 AM EDT MAGNESIUM, PLASMA Routine 05/24/2024 12:17 AM EDT BASIC METABOLIC PANEL, PLASMA Routine 05/24/2024 12:17 AM EDT XR CHEST 1 VIEW STAT 05/23/2024 11:44 PM EDT OXYGEN THERAPY Routine 05/23/2024 11:24 PM EDT OXYGEN THERAPY Routine 05/23/2024 11:24 PM EDT OXYGEN THERAPY Routine 05/23/2024 8:20 PM EDT ANTI XA LEVEL LOW MOLECULAR WEIGHT HEPARIN Routine 05/23/2024 2:25 PM EDT RENAL FUNCTION PANEL, PLASMA Routine 05/23/2024 1:24 PM EDT POCT ARTERIAL BLOOD GAS GEM UNSOLICITED RESULTS Routine 05/23/2024 1:17 PM EDT CALE AURIS SURVEILLANCE BY PCR Routine 05/23/2024 12:00 PM EDT CALE AURIS SURVEILLANCE CULTURE Routine 05/23/2024 12:00 PM EDT MULTI DRUG RESISTANCE TEST Routine 05/23/2024 12:00 PM EDT ECHO, ADULT TRANSTHORACIC COMPLETE STAT 05/23/2024 11:53 AM EDT POCT GLUCOSE METER UNSOLICITED RESULTS Routine 05/23/2024 11:08 AM EDT BLOOD GAS PANEL, VENOUS Routine 05/23/2024 10:56 AM EDT AMMONIA, PLASMA STAT 05/23/2024 10:56 AM EDT COMPREHENSIVE METABOLIC PANEL, PLASMA STAT 05/23/2024 10:56 AM EDT PREPARE RBC Routine 05/23/2024 8:21 AM EDT XR CHEST 1 VIEW STAT 05/23/2024 8:00 AM EDT XR KNEE LEFT 3 VIEWS STAT 05/23/2024 8:00 AM EDT XR FEMUR LEFT 2+ VIEWS STAT 8:00 AM EDT XR HIP LEFT 2 OR 3 VIEWS STAT 05/23/2024 8:00 AM EDT ED HIV 1/2 ANTIBODY/ANTIGEN SCREEN WITH REFLEX TO HIV I/II DIFFERENTIATION STAT 05/23/2024 6:52 AM EDT EXTRA TUBE GOLD TOP Routine 05/23/2024 6 :52 AM EDT ED PROTOCOL HIV 1/2 ANTIBODY/ANTIGEN SCREEN W/REFLEX TO HIV 1/2 ANTIBODY DIFFERENTIATION STAT 05/23/2024 6:52 AM EDT EXTRA TUBE LIGHT GREEN TOP Routine 05/23/2024 6:52 AM EDT EXTRA TUBES Routine 05/23/2024 6:52 AM EDT N-TERMINAL PROBNP, PLASMA STAT Add-on 05/23/2024 6:52 AM EDT XR HIP LEFT STRESS VIEW STAT 05/23/2024 6:52 AM EDT PROTHROMBIN TIME(PT) / INR STAT 05/23/2024 6:52 AM EDT CBC W/O DIFFERENTIAL STAT 05/23/2024 6:52 AM EDT TYPE AND SCREEN STAT 05/23/2024 6:52 AM EDT HEMOGLOBIN A1C STAT Add-on 05/23/2024 6:52 AM EDT BASIC METABOLIC PANEL, PLASMA STAT 05/23/2024 6:52 AM EDT PREPARE RBC Routine 05/23/2024 6:28 AM EDT ECG ADULT STAT 05/23/2024 6:24 AM EDT documented in this encounter Results * (ABNORMAL) POCT glucose meter (06/01/2024 11:41 AM EDT) POCT Glucose 194(H) 74 - 99 mg/dL 06/01/2024 11:43 AM EDT [facility] Comment:Accuracy of a glucos e result obtained from a capillary whole blood specimen relies upon adequate, non-compromised capillary blood flow. If the capillary glucose result is not consistent with the patient's clinical signs and symptoms, glucose testing should be repeated with either an arterial or venous sample on the glucometer or sent to the main labortory for testing. Comment 06/01/2024 11:43 AM EDT [facility] Legal Researcher ID Dayana Costa 025 11:43 AM EDT HEALTHCARE LAB Device ID [id number] 06/01/2024 11:43 AM EDT [facility] Specimen Type POC Capillary 06/01/2024 11:43 AM EDT [facility] Blood Capillary blood specimen / Unknown 06/01/2024 11:41 AM EDT 06/01/2024 11:43 AM EDT Ashli Whitaker MD LAB POINT OF CARE TEST DOCKED DEVICE UNSOLICITED RESULTS Final Result [facility] [address] [place] [address] * (ABNORMAL) POCT glucose meter (06/01/2024 7:26 AM EDT) [facility] POCT Glucose 281(H) 74 - 99 mg/dL 06/01/2024 7:27 AM EDT [facility] Comment:Accuracy of a glucos e result obtained from a capillary whole blood specimen relies upon adequate, non-compromised capillary blood flow. If the capillary glucose result is not consistent with the patient's clinical signs and symptoms, glucose testing should be repeated with either an arterial or venous sample on the glucometer or sent to the main labortory for testing. Comment 06/01/2024 7:27 AM EDT [facility] Legal Researcher ID Dayana Costa 025 7:27 AM EDT [facility]ALTH[facility]ARE [facility] Device ID [id number] 06/01/2024 7:27 AM EDT [facility] Specimen Type POC Capillary 06/01/2024 7:27 AM EDT [facility] Blood Capillary blood specimen / Unknown 06/01/2024 7:26 AM EDT 06/01/2024 7:27 AM EDT Ashli Whitaker MD LAB POINT OF CARE TEST DOCKED DEVICE UNSOLICITED RESULTS Final Result Performing Organization Address [facility] de Phone Number [facility] [address] [place] [address] * (ABNORMAL) POCT glucose meter (05/31/2024 8:16 PM EDT) Pathologist [facility] POCT Glucose 110(H) 74 - 99 mg/dL 05/31/2024 8:18 PM EDT [facility] Comment:Accuracy of a glucos e result obtained from a capillary whole blood specimen relies upon adequate, non-compromised capillary blood flow. If the capillary glucose result is not consistent with the patient's clinical signs and symptoms, glucose testing should be repeated with either an arterial or venous sample on the glucometer or sent to the main labortory for testing. Comment 05/31/2024 8:18 PM EDT [facility] Legal Researcher ID Radha Albert 05/31/2024 8:18 PM EDT HEALTH[facility]ARE [facility] Device ID [id number] 05/31/2024 8:18 PM EDT [facility] Specimen Type POC Capillary 05/31/2024 8:18 PM EDT [facility] Blood Capillary blood specimen / Unknown 05/31/2024 8:16 PM EDT 05/31/2024 8:18 PM EDT Ashli Whitaker MD LAB POINT OF CARE TEST DOCKED DEVICE UNSOLICITED RESULTS Final Result Performing Organization Address City/[facility] Co de Phone Number [facility] [address] [place] [address] * POCT glucose meter (05/31/2024 4:29 PM EDT) [facility] POCT Glucose 94 74 - 99 mg/dL 05/31/2024 4:30 PM EDT [facility] Comment:Accuracy of a glucos e result obtained from a capillary whole blood specimen relies upon adequate, non-compromised capillary blood flow. If the capillary glucose result is not consistent with the patient's clinical signs and symptoms, glucose testing should be repeated with either an arterial or venous sample on the glucometer or sent to the main labortory for testing. Comment 05/31/2024 4:30 PM EDT [facility] Legal Researcher ID Gila Newsome 025 4:30 PM EDT [facility] Device ID [id number] 05/31/2024 4:30 PM EDT [facility] Specimen Type POC Capillary 05/31/2024 4:30 PM EDT [facility] Blood Capillary blood specimen / Unknown 05/31/2024 4:29 PM EDT 05/31/2024 4:30 PM EDT Ashli Whitaker MD LAB POINT OF CARE TEST DOCKED DEVICE UNSOLICITED RESULTS Final Result Performing Organization Address City/[facility] Co de Phone Number [facility] [address] [place] [address] * (ABNORMAL) POCT glucose meter (05/31/2024 11:48 AM EDT) POCT Glucose 159(H) 74 - 99 mg/dL 05/31/2024 11:50 AM EDT [facility] Comment:Accuracy of a glucos e result obtained from a capillary whole blood specimen relies upon adequate, non-compromised capillary blood flow. If the capillary glucose result is not consistent with the patient's clinical signs and symptoms, glucose testing should be repeated with either an arterial or venous sample on the glucometer or sent to the main labortory for testing. Comment 05/31/2024 11:50 AM EDT [facility] Legal Researcher ID Gila Newsome 025 11:50 AM EDT [facility]ALTH[facility]ARE [facility] Device ID [id number] 05/31/2024 11:50 AM EDT [facility] Specimen Type POC Capillary 05/31/2024 11:50 AM EDT [facility] Blood Capillary blood specimen / Unknown 05/31/2024 11:48 AM EDT 05/31/2024 11:50 AM EDT Ashli Whiatker MD LAB POINT OF CARE TEST DOCKED DEVICE UNSOLICITED RESULTS Final Result Performing Organization Address City/[facility]/ZIP Co de Phone Number [facility] [address] [place] [address] * (ABNORMAL) POCT glucose meter (05/31/2024 8:11 AM EDT) POCT Glucose 247(H) 74 - 99 mg/dL 05/31/2024 8:13 AM EDT [facility] Comment:Accuracy of a glucos e result obtained from a capillary whole blood specimen relies upon adequate, non-compromised capillary blood flow. If the capillary glucose result is not consistent with the patient's clinical signs and symptoms, glucose testing should be repeated with either an arterial or venous sample on the glucometer or sent to the main labortory for testing. Comment 05/31/2024 8:13 AM EDT [facility] Legal Researcher ID iGla Newsome 025 8:13 AM EDT [facility]ALTH[facility]ARE LAB Device ID [id number] 05/31/2024 8:13 AM EDT [facility] Specimen Type POC Capillary 05/31/2024 8:13 AM EDT [facility] Blood Capillary blood specimen / Unknown 05/31/2024 8:11 AM EDT 05/31/2024 8:13 AM EDT Ashli Whitaker MD LAB POINT OF CARE TEST DOCKED DEVICE UNSOLICITED RESULTS Final Result [facility] [address] [place] [address] * (ABNORMAL) Basic metabolic panel (05/31/2024 4:43 AM EDT) Glucose, Plasma 142(H) 74 - 99 mg/dL 05/31/2024 6:01 AM EDT [facility] BUN, Plasma 95(H) 8 - 23 mg/dL 05/31/2024 6:01 AM EDT [facility] Creatinine, Plasma 1.99(H) 0.60 - 1.10 mg/dL 05/31/2024 6:01 AM EDT [facility] BUN/Creatinine Ratio 48 05/31/2024 6:01 AM EDT [facility] Sodium, Plasma 139 136 - 145 mmol/L 05/31/2024 6:01 AM EDT [facility] Potassium, Plasma 5.2(H) 3.6 - 4.9 mmol/L 05/31/2024 6:01 AM EDT [facility] Chloride, Plasma 105 97 - 107 mmol/L 05/31/2024 6:01 AM EDT [facility] CO2, Plasma 22 22 - 29 mmol/L 05/31/2024 6:01 AM EDT [facility] Anion Gap 12 6 - 16 mmol/L 05/31/2024 6:01 AM EDT [facility] Total Calcium, Plasma 8.9 8.9 - 10.2 mg/dL 05/31/2024 6:01 AM EDT [facility] eGFRcr 27.8 mL/min/1.7 3m*2 05/31/2024 6:01 AM EDT [facility] Comment:Reported eGFRcr in m L/min/1.73m2 is based the CKD-EPI 2020 equation that does not use a race coefficient. Blood Venous blood specimen / Unknown Venipuncture / Unknown 05/31/2024 4:43 AM EDT 05/31/2024 4:57 AM EDT us Lauren HOLLY LAB BLOOD ORDERABLES Final Resu lt [facility] [address] [place] [address] * (ABNORMAL) CBC W/O Differential (05/31/2024 4:43 AM EDT) WBC Count 14.56(H) 3.70 - 10.30 10*3/uL LAB HEMATOLOGY METHOD 05/31/2024 5:11 AM EDT [facility] RBC Count 3.93 3.90 - 5.20 10*6/uL LAB HEMATOLOGY METHOD 05/31/2024 5:11 AM EDT [facility] HGB 9.8(L) 11.2 - 15.7 g/dL LAB HEMATOLOGY METHOD 05/31/2024 5:11 AM EDT [facility] HCT 32.6(L) 34.0 - 45.0 % LAB HEMATOLOGY METHOD 05/31/2024 5:11 AM EDT [facility] Platelet Count 341 155 - 369 10*3/uL LAB HEMATOLOGY METHOD 05/31/2024 5:11 AM EDT [facility] MCV 83 79 - 98 fL LAB HEMATOLOGY METHOD 05/31/2024 5:11 AM EDT [facility] MCH 24.9(L) 26.0 - 32.0 pg LAB HEMATOLOGY METHOD 05/31/2024 5:11 AM EDT [facility] MCHC 30.1(L) 30.7 - 35.5 g/dL LAB HEMATOLOGY METHOD 05/31/2024 5:11 AM EDT [facility] RDW 17.3(H) 11.5 - 14.5 % LAB HEMATOLOGY METHOD 05/31/2024 5:11 AM EDT [facility] MPV 10.1 8.8 - 12.5 fL LAB HEMATOLOGY METHOD 05/31/2024 5:11 AM EDT [facility] nRBC 0.0 <=0.0 per 100 WBCs LAB HEMATOLOGY METHOD 05/31/2024 5:11 AM EDT [facility] Blood Venous blood specimen / Unknown Venipuncture / Unknown 05/31/2024 4:43 AM EDT 05/31/2024 4:59 AM EDT us Lauren HOLLY LAB BLOOD ORDERABLES Final Resu lt [facility] [address] [place] [address] * (ABNORMAL) POCT glucose meter (05/30/2024 9:18 PM EDT) [facility] POCT Glucose 139(H) 74 - 99 mg/dL 05/30/2024 9:19 PM EDT [facility] Comment:Accuracy of a glucos e result obtained from a capillary whole blood specimen relies upon adequate, non-compromised capillary blood flow. If the capillary glucose result is not consistent with the patient's clinical signs and symptoms, glucose testing should be repeated with either an arterial or venous sample on the glucometer or sent to the main labortory for testing. Comment 05/30/2024 9:19 PM EDT [facility] Legal Researcher ID Deidra Lee 05/31/19 9:19 PM EDT [facility] Device ID [id number] 05/30/2024 9:19 PM EDT [facility] Specimen Type POC Capillary 05/30/2024 9:19 PM EDT [facility] Blood Capillary blood specimen / Unknown 05/30/2024 9:18 PM EDT 05/30/2024 9:19 PM EDT Ashli Whitaker MD LAB POINT OF CARE TEST DOCKED DEVICE UNSOLICITED RESULTS Final Result Performing Organization Address City/[facility] Co de Phone Number [facility] [address] [place] [address] * POCT glucose meter (05/30/2024 8:26 PM EDT) [facility] POCT Glucose 78 74 - 99 mg/dL 05/30/2024 8:31 PM EDT [facility] Comment:Accuracy of a glucos e result obtained from a capillary whole blood specimen relies upon adequate, non-compromised capillary blood flow. If the capillary glucose result is not consistent with the patient's clinical signs and symptoms, glucose testing should be repeated with either an arterial or venous sample on the glucometer or sent to the main labortory for testing. Comment 05/30/2024 8:31 PM EDT [facility] Legal Researcher ID Willis Goodson 05/30/2024 8:31 PM EDT [facility]ALTH[facility]ARE LAB Device ID [id number] 05/30/2024 8:31 PM EDT [facility]ALTH[facility] Specimen Type POC Capillary 05/30/2024 8:31 PM EDT [facility] Blood Capillary blood specimen / Unknown 05/30/2024 8:26 PM EDT 05/30/2024 8:31 PM EDT Ashli Whitaker MD LAB POINT OF CARE TEST DOCKED DEVICE UNSOLICITED RESULTS Final Result Performing Organization Address City/[facility] Co de Phone Number HEALTHCARE LAB [address] [place] [address] * (ABNORMAL) POCT glucose meter (05/30/2024 4:34 PM EDT) Pathologist [facility] [place] POCT Glucose 134(H) 74 - 99 mg/dL 05/30/2024 4:35 PM EDT [facility] Comment:Accuracy of a glucos e result obtained from a capillary whole blood specimen relies upon adequate, non-compromised capillary blood flow. If the capillary glucose result is not consistent with the patient's clinical signs and symptoms, glucose testing should be repeated with either an arterial or venous sample on the glucometer or sent to the main labortory for testing. Comment 05/30/2024 4:35 PM EDT [facility] Legal Researcher ID Janine Francis 05/31/19 4:35 PM EDT [facility] Device ID [id number] 05/30/2024 4:35 PM EDT HEALTH[facility]ARE LAB Specimen Type POC Capillary 05/30/2024 4:35 PM EDT [facility] Blood Capillary blood specimen / Unknown 05/30/2024 4:34 PM EDT 05/30/2024 4:35 PM EDT Ashli Whitaker MD LAB POINT OF CARE TEST DOCKED DEVICE UNSOLICITED RESULTS Final Result [facility] [address] [place] [address] * (ABNORMAL) POCT glucose meter (05/30/2024 12:23 PM EDT) [facility] POCT Glucose 211(H) 74 - 99 mg/dL 05/30/2024 12:25 PM EDT [facility] Comment:Accuracy of a glucos e result obtained from a capillary whole blood specimen relies upon adequate, non-compromised capillary blood flow. If the capillary glucose result is not consistent with the patient's clinical signs and symptoms, glucose testing should be repeated with either an arterial or venous sample on the glucometer or sent to the main labortory for testing. Comment 05/30/2024 12:25 PM EDT [facility] Legal Researcher ID Janine Francis 05/31/19 12:25 PM EDT [facility] Device ID [id number] 05/30/2024 12:25 PM EDT [facility] Specimen Type POC Capillary 05/30/2024 12:25 PM EDT [facility] Blood Capillary blood specimen / Unknown 05/30/2024 12:23 PM EDT 05/30/2024 12:25 PM EDT Ashli Whitaker MD LAB POINT OF CARE TEST DOCKED DEVICE UNSOLICITED RESULTS Final Result Performing Organization Address [facility] de Phone Number [facility]ARE [facility] [address] [place] [address] * (ABNORMAL) POCT glucose meter (05/30/2024 7:46 AM EDT) POCT Glucose 222(H) 74 - 99 mg/dL 05/30/2024 7:47 AM EDT [facility] Comment:Accuracy of a glucos e result obtained from a capillary whole blood specimen relies upon adequate, non-compromised capillary blood flow. If the capillary glucose result is not consistent with the patient's clinical signs and symptoms, glucose testing should be repeated with either an arterial or venous sample on the glucometer or sent to the main labortory for testing. Comment 05/30/2024 7:47 AM EDT [facility] Legal Researcher ID Janine Francis 05/31/19 7:47 AM EDT [facility]ALTHCARE LAB Device ID [id number] 05/30/2024 7:47 AM EDT [facility] Specimen Type POC Capillary 05/30/2024 7:47 AM EDT [facility] Blood Capillary blood specimen / Unknown 05/30/2024 7:46 AM EDT 05/30/2024 7:47 AM EDT Ashli Whitaker MD LAB POINT OF CARE TEST DOCKED DEVICE UNSOLICITED RESULTS Final Result Performing Organization Address City/[facility] Co de Phone Number [facility] [address] [place] [address] * (ABNORMAL) POCT glucose meter (05/30/2024 3:14 AM EDT) POCT Glucose 276(H) 74 - 99 mg/dL 05/30/2024 3:15 AM EDT [facility] Comment:Accuracy of a glucos e result obtained from a capillary whole blood specimen relies upon adequate, non-compromised capillary blood flow. If the capillary glucose result is not consistent with the patient's clinical signs and symptoms, glucose testing should be repeated with either an arterial or venous sample on the glucometer or sent to the main labortory for testing. Comment 05/30/2024 3:15 AM EDT [facility] Legal Researcher ID Deidra Lee 05/31/19 25 3:15 AM EDT [facility] LAB Device ID [id number] 05/30/2024 3:15 AM EDT [facility] Specimen Type POC Capillary 05/30/2024 3:15 AM EDT [facility] Blood Capillary blood specimen / Unknown 05/30/2024 3:14 AM EDT 05/30/2024 3:15 AM EDT us Ashli Whitaker MD LAB POINT OF CARE TEST DOCKED DEVICE UNSOLICITED RESULTS Final Result Performing Organization Address City/State/[facility] Co de Phone Number [facility]ARE [facility] [address] [place] [address] * (ABNORMAL) Basic metabolic panel (05/30/2024 12:03 AM EDT) Glucose, Plasma 255(H) 74 - 99 mg/dL 05/30/2024 12:44 AM EDT [facility] BUN, Plasma 88(H) 8 - 23 mg/dL 05/30/2024 12:44 AM EDT [facility] Creatinine, Plasma 1.48(H) 0.60 - 1.10 mg/dL 05/30/2024 12:44 AM EDT [facility] BUN/Creatinine Ratio 59 05/30/2024 12:44 AM EDT [facility] Sodium, Plasma 141 136 - 145 mmol/L 05/30/2024 12:44 AM EDT [facility] Potassium, Plasma 4.9 3.6 - 4.9 mmol/L 05/30/2024 12:44 AM EDT [facility] Chloride, Plasma 104 97 - 107 mmol/L 05/30/2024 12:44 AM EDT [facility] CO2, Plasma 23 22 - 29 mmol/L 05/30/2024 12:44 AM EDT [facility] Anion Gap 14 6 - 16 mmol/L 05/30/2024 12:44 AM EDT [facility] Total Calcium, Plasma 9.0 8.9 - 10.2 mg/dL 05/30/2024 12:44 AM EDT [facility] eGFRcr 39.6 mL/min/1.7 3m*2 05/30/2024 12:44 AM EDT [facility] Comment:Reported eGFRcr in m L/min/1.73m2 is based the CKD-EPI 2020 equation that does not use a race coefficient. Blood Venous blood specimen / Unknown Venipuncture / Unknown 05/30/2024 12:03 AM EDT 05/30/2024 12:16 AM EDT us Lauren HOLLY LAB BLOOD ORDERABLES Final Resu lt [facility] [address] [place] [address] * (ABNORMAL) CBC W/O Differential (05/30/2024 12:03 AM EDT) WBC Count 15.74(H) 3.70 - 10.30 10*3/uL LAB HEMATOLOGY METHOD 05/30/2024 12:23 AM EDT [facility] RBC Count 3.94 3.90 - 5.20 10*6/uL LAB HEMATOLOGY METHOD 05/30/2024 12:23 AM EDT [facility] HGB 9.9(L) 11.2 - 15.7 g/dL LAB HEMATOLOGY METHOD 05/30/2024 12:23 AM EDT [facility] HCT 31.6(L) 34.0 - 45.0 % LAB HEMATOLOGY METHOD 05/30/2024 12:23 AM EDT [facility] Platelet Count 312 155 - 369 10*3/uL LAB HEMATOLOGY METHOD 05/30/2024 12:23 AM EDT [facility] MCV 80 79 - 98 fL LAB HEMATOLOGY METHOD 05/30/2024 12:23 AM EDT [facility] MCH 25.1(L) 26.0 - 32.0 pg LAB HEMATOLOGY METHOD 05/30/2024 12:23 AM EDT [facility] MCHC 31.3 30.7 - 35.5 g/dL LAB HEMATOLOGY METHOD 05/30/2024 12:23 AM EDT [facility] RDW 17.0(H) 11.5 - 14.5 % LAB HEMATOLOGY METHOD 05/30/2024 12:23 AM EDT [facility] MPV 9.7 8.8 - 12.5 fL LAB HEMATOLOGY METHOD 05/30/2024 12:23 AM EDT [facility] nRBC 0.0 <=0.0 per 100 WBCs LAB HEMATOLOGY METHOD 05/30/2024 12:23 AM EDT [facility] Blood Venous blood specimen / Unknown Venipuncture / Unknown 05/30/2024 12:03 AM EDT 05/30/2024 12:15 AM EDT us Lauren I Chromy PA LAB BLOOD ORDERABLES Final Resu lt Performing Organization Address [facility]/ZIP Co de Phone Number [facility] [address] [place] [address] * (ABNORMAL) Vitamin D 25 Hydroxy (05/30/2024 12:03 AM EDT) Pathologist [facility] Vitamin D 25 Hydroxy 8.8(L) 20.0 - 80.0 ng/mL 05/30/2024 2:57 AM EDT [facility] Blood Venous blood specimen / Unknown Venipuncture / Unknown 05/30/2024 12:03 AM EDT 05/30/2024 12:16 AM EDT Narrative [facility] - 05/30/2024 2:57 AM EDT Testing performed on [employer], standardized against NIST SRM 2972. When testing samples from patients whose predominant form of vitamin D is vitamin D2, such as patients receiving vitamin D2 supplementation, results that are subtherapeutic should be confirmed with another method, such as LC-MS/MS, before being used for patient management. Vitamin D, 25-Hydroxy reference range, age 18 years and up: Deficiency: <12 ng/mL Insufficiency: 12 to 19 ng/mL Sufficiency: 20 to 80 ng/mL Possible toxicity: >100 ng/mL us Lauren I Chromy PA LAB BLOOD ORDERABLES Final Resu lt Performing Organization Address City/[facility]/ZIP Co de Phone Number [facility] [address] [place] [address] * (ABNORMAL) POCT glucose meter (05/29/2024 8:14 PM EDT) [facility] POCT Glucose 287(H) 74 - 99 mg/dL 05/29/2024 8:16 PM EDT [facility] Comment:Accuracy of a glucos e result obtained from a capillary whole blood specimen relies upon adequate, non-compromised capillary blood flow. If the capillary glucose result is not consistent with the patient's clinical signs and symptoms, glucose testing should be repeated with either an arterial or venous sample on the glucometer or sent to the main labortory for testing. Comment 05/29/2024 8:16 PM EDT [facility] Legal Researcher ID Guicho Lee 05/29/2024 8:16 PM EDT [facility] Device ID [id number] 05/29/2024 8:16 PM EDT [facility] Specimen Type POC Capillary 05/29/2024 8:16 PM EDT [facility] Blood Capillary blood specimen / Unknown 05/29/2024 8:14 PM EDT 05/29/2024 8:16 PM EDT Ashli Whitaker MD LAB POINT OF CARE TEST DOCKED DEVICE UNSOLICITED RESULTS Final Result Performing Organization Address City/State/[facility] Co de Phone Number [facility] [address] [place] [id number] * (ABNORMAL) POCT glucose meter (05/29/2024 4:49 PM EDT) [facility] POCT Glucose 227(H) 74 - 99 mg/dL 05/29/2024 4:51 PM EDT [facility] Comment:Accuracy of a glucos e result obtained from a capillary whole blood specimen relies upon adequate, non-compromised capillary blood flow. If the capillary glucose result is not consistent with the patient's clinical signs and symptoms, glucose testing should be repeated with either an arterial or venous sample on the glucometer or sent to the main labortory for testing. Comment 05/29/2024 4:51 PM EDT [facility] Legal Researcher ID Janine Francis 05/30/19 4:51 PM EDT [facility] Device ID [id number] 05/29/2024 4:51 PM EDT [facility] Specimen Type POC Capillary 05/29/2024 4:51 PM EDT [facility] Blood Capillary blood specimen / Unknown 05/29/2024 4:49 PM EDT 05/29/2024 4:51 PM EDT Ashli Whitaker MD LAB POINT OF CARE TEST DOCKED DEVICE UNSOLICITED RESULTS Final Result Performing Organization Address City/State/[facility] Co de Phone Number HE[facility]ARE LAB [address] [place] [phone] * XR Chest 1 View (05/29/2024 12:03 PM EDT) Anatomical Region Laterality Modality Chest Digital Radiogra phy Impressions 05/29/2024 2:06 PM EDT Increased right apical airspace opacity. CRITICAL RESULT: No. COMMUNICATION: Per this written report. By electronically signing this report, I, the attending physician, attest that I have personally reviewed the images/data for the above examination(s) and agree with the final edited report. Drafted by Go Alvarez MD on 05/29/2024 1:04 PM Final report signed by Dewayne Medrano MD on 05/29/2024 2:06 PM Narrative 05/29/2024 2:06 PM EDT CLINICAL INDICATION: SOA TECHNIQUE: XR CHEST 1 VIEW COMPARISON: May 28, 2024 FINDINGS: Stable cardiomediastinal silhouette. Persistent bilateral interstitial opacities. Increased airspace opacities in the right upper lung. No pneumothorax or pleural effusion. Procedure Note Dewayne Medrano MD - 05/29/2024 CLINICAL INDICATION: SOA TECHNIQUE: XR CHEST 1 VIEW COMPARISON: May 28, 2024 FINDINGS: Stable cardiomediastinal silhouette. Persistent bilateral interstitialopacities. Increased airspace opacities in the right upper lung. Nopneumothorax or pleural effusion. IMPRESSION: Increased right apical airspace opacity. CRITICAL RESULT: No. COMMUNICATION: Per this written report. By electronically signing this report, I, the attending physician, attestthat I have personally reviewed the images/data for the aboveexamination(s) and agree with the final edited report. Drafted by Go Alvarez MD on 05/29/2024 1:04 PM Final report signed by Dewayne Medrano MD on 05/29/2024 2:06 PM Lauren HOLLY IMG XR PROCEDURES Final Result * ECG Adult (05/29/2024 11:40 AM EDT) EKG DIAGNOSIS CLASS Abnormal MUSE ECG Ventricular Rate 111 BPM MUSE ECG QRSD Interval 76 ms MUSE ECG QT Interval 334 ms MUSE ECG QTC Interval 454 ms MUSE ECG R [place] -19 degrees MUSE ECG T Wave [place] 14 degrees MUSE ECG Diagnosis Atrial fibrillation with rapid ventricular response MUSE ECG Diagnosis Minimal voltage criteria for LVH, may be normal variant ( R in aVL ) MUSE ECG Diagnosis Nonspecific ST abnormality MUSE ECG Diagnosis Abnormal ECG MUSE ECG Diagnosis MUSE ECG Diagnosis Confirmed by Alex Loyola ([id number]) on 05/29/2024 1:01:26 PM MUSE ECG 05/29/2024 11:4 0 AM EDT 05/29/2024 1:01 PM EDT Luaren HOLYL ECG ORDERABLES Final Result MUSE ECG * (ABNORMAL) POCT glucose meter (05/29/2024 11:09 AM EDT) Pathologist [facility] POCT Glucose 137(H) 74 - 99 mg/dL 05/29/2024 11:11 AM EDT [facility] Comment:Accuracy of a glucos e result obtained from a capillary whole blood specimen relies upon adequate, non-compromised capillary blood flow. If the capillary glucose result is not consistent with the patient's clinical signs and symptoms, glucose testing should be repeated with either an arterial or venous sample on the glucometer or sent to the main labortory for testing. Comment 05/29/2024 11:11 AM EDT [facility] Legal Researcher ID Janine Francis 05/30/19 11:11 AM EDT [facility] Device ID [id number] 05/29/2024 11:11 AM EDT [facility] Specimen Type POC Capillary 05/29/2024 11:11 AM EDT [facility] Blood Capillary blood specimen / Unknown 05/29/2024 11:09 AM EDT 05/29/2024 11:11 AM EDT Ashli Whitaker MD LAB POINT OF CARE TEST DOCKED DEVICE UNSOLICITED RESULTS Final Result Performing Organization Address [facility] Co de Phone Number [facility]ARE [facility] [address] [place] [address] * (ABNORMAL) POCT glucose meter (05/29/2024 7:28 AM EDT) [facility] POCT Glucose 261(H) 74 - 99 mg/dL 05/29/2024 7:37 AM EDT [facility] Comment:Accuracy of a glucos e result obtained from a capillary whole blood specimen relies upon adequate, non-compromised capillary blood flow. If the capillary glucose result is not consistent with the patient's clinical signs and symptoms, glucose testing should be repeated with either an arterial or venous sample on the glucometer or sent to the main labortory for testing. Comment 05/29/2024 7:37 AM EDT [facility] Legal Researcher ID Tierra Simpson 05/29/2024 7:37 AM EDT [facility] Device ID [id number] 05/29/2024 7:37 AM EDT [facility] Specimen Type POC Capillary 05/29/2024 7:37 AM EDT [facility] Blood Capillary blood specimen / Unknown 05/29/2024 7:28 AM EDT 05/29/2024 7:37 AM EDT Ashli Whitaker MD LAB POINT OF CARE TEST DOCKED DEVICE UNSOLICITED RESULTS Final Result Performing Organization Address City/[facility]/ZIP Co de Phone Number [facility]ALTH[facility]ARE [facility] [address] [place] [address] * (ABNORMAL) CBC W/O Differential (05/29/2024 3:50 AM EDT) Pathologist [facility] WBC Count 11.65(H) 3.70 - 10.30 10*3/uL LAB HEMATOLOGY METHOD 05/29/2024 4:06 AM EDT [facility] RBC Count 3.75(L) 3.90 - 5.20 10*6/uL LAB HEMATOLOGY METHOD 05/29/2024 4:06 AM EDT [facility] HGB 9.5(L) 11.2 - 15.7 g/dL LAB HEMATOLOGY METHOD 05/29/2024 4:06 AM EDT [facility] HCT 30.2(L) 34.0 - 45.0 % LAB HEMATOLOGY METHOD 05/29/2024 4:06 AM EDT [facility] Platelet Count 287 155 - 369 10*3/uL LAB HEMATOLOGY METHOD 05/29/2024 4:06 AM EDT [facility] MCV 81 79 - 98 fL LAB HEMATOLOGY METHOD 05/29/2024 4:06 AM EDT [facility] MCH 25.3(L) 26.0 - 32.0 pg LAB HEMATOLOGY METHOD 05/29/2024 4:06 AM EDT [facility] MCHC 31.5 30.7 - 35.5 g/dL LAB HEMATOLOGY METHOD 05/29/2024 4:06 AM EDT [facility] RDW 17.1(H) 11.5 - 14.5 % LAB HEMATOLOGY METHOD 05/29/2024 4:06 AM EDT [facility] MPV 9.8 8.8 - 12.5 fL LAB HEMATOLOGY METHOD 05/29/2024 4:06 AM EDT [facility] nRBC 0.0 <=0.0 per 100 WBCs LAB HEMATOLOGY METHOD 05/29/2024 4:06 AM EDT [facility] Blood Venous blood specimen / Unknown Venipuncture / Unknown 05/29/2024 3:50 AM EDT 05/29/2024 3:58 AM EDT us Lauren HOLLY LAB BLOOD ORDERABLES Final Resu lt [facility] [address] [place] [address] * (ABNORMAL) Basic metabolic panel (05/29/2024 3:50 AM EDT) [facility] Glucose, Plasma 221(H) 74 - 99 mg/dL 05/29/2024 4:29 AM EDT [facility] BUN, Plasma 88(H) 8 - 23 mg/dL 05/29/2024 4:29 AM EDT [facility] Creatinine, Plasma 1.39(H) 0.60 - 1.10 mg/dL 05/29/2024 4:29 AM EDT [facility] BUN/Creatinine Ratio 63 05/29/2024 4:29 AM EDT [facility] Sodium, Plasma 140 136 - 145 mmol/L 05/29/2024 4:29 AM EDT [facility] Potassium, Plasma 4.8 3.6 - 4.9 mmol/L 05/29/2024 4:29 AM EDT [facility] Chloride, Plasma 107 97 - 107 mmol/L 05/29/2024 4:29 AM EDT [facility] CO2, Plasma 25 22 - 29 mmol/L 05/29/2024 4:29 AM EDT [facility] Anion Gap 8 6 - 16 mmol/L 05/29/2024 4:29 AM EDT [facility] Total Calcium, Plasma 8.8(L) 8.9 - 10.2 mg/dL 05/29/2024 4:29 AM EDT [facility] eGFRcr 42.7 mL/min/1.7 3m*2 05/29/2024 4:29 AM EDT [facility] Comment:Reported eGFRcr in m L/min/1.73m2 is based the CKD-EPI 2020 equation that does not use a race coefficient. Blood Venous blood specimen / Unknown Venipuncture / Unknown 05/29/2024 3:50 AM EDT 05/29/2024 3:58 AM EDT us Lauren HOLLY LAB BLOOD ORDERABLES Final Resu lt [facility] [address] [place] [address] * (ABNORMAL) POCT glucose meter (05/29/2024 3:35 AM EDT) POCT Glucose 218(H) 74 - 99 mg/dL 05/29/2024 3:37 AM EDT [facility] Comment:Accuracy of a glucos e result obtained from a capillary whole blood specimen relies upon adequate, non-compromised capillary blood flow. If the capillary glucose result is not consistent with the patient's clinical signs and symptoms, glucose testing should be repeated with either an arterial or venous sample on the glucometer or sent to the main labortory for testing. Comment 05/29/2024 3:37 AM EDT [facility]ALTHCARE [facility] Legal Researcher ID Deidra Lee 05/30/19 3:37 AM EDT [facility] Device ID [id number] 05/29/2024 3:37 AM EDT [facility] Specimen Type POC Capillary 05/29/2024 3:37 AM EDT [facility] Blood Capillary blood specimen / Unknown 05/29/2024 3:35 AM EDT 05/29/2024 3:37 AM EDT us Ashli Whitakre MD LAB POINT OF CARE TEST DOCKED DEVICE UNSOLICITED RESULTS Final Result Performing Organization Address City/State/[facility] Co de Phone Number [facility]CARE LAB [address] [place] [address] * (ABNORMAL) POCT glucose meter (05/28/2024 8:28 PM EDT) [facility] POCT Glucose 256(H) 74 - 99 mg/dL 05/28/2024 8:31 PM EDT [facility] Comment:Accuracy of a glucos e result obtained from a capillary whole blood specimen relies upon adequate, non-compromised capillary blood flow. If the capillary glucose result is not consistent with the patient's clinical signs and symptoms, glucose testing should be repeated with either an arterial or venous sample on the glucometer or sent to the main labortory for testing. Comment 05/28/2024 8:31 PM EDT [facility]ARE [facility] Legal Researcher ID Tamanna Bryant 05/28/2024 8:31 PM EDT HEALTHCARE LAB Device ID [id number] 05/28/2024 8:31 PM EDT [facility]ARE LAB Specimen Type POC Capillary 05/28/2024 8:31 PM EDT [facility] Blood Capillary blood specimen / Unknown 05/28/2024 8:28 PM EDT 05/28/2024 8:31 PM EDT us Ashli Whitaker MD LAB POINT OF CARE TEST DOCKED DEVICE UNSOLICITED RESULTS Final Result Performing Organization Address [facility] Co de Phone Number [facility] [address] [place] [address] * (ABNORMAL) POCT glucose meter (05/28/2024 4:53 PM EDT) [facility] POCT Glucose 317(H) 74 - 99 mg/dL 05/28/2024 4:54 PM EDT [facility] Comment:Accuracy of a glucos e result obtained from a capillary whole blood specimen relies upon adequate, non-compromised capillary blood flow. If the capillary glucose result is not consistent with the patient's clinical signs and symptoms, glucose testing should be repeated with either an arterial or venous sample on the glucometer or sent to the main labortory for testing. Comment 05/28/2024 4:54 PM EDT [facility]ALTH[facility]ARE [facility] Legal Researcher ID Nataliya Robledo 05/28/2024 4:54 PM EDT HEALTHCARE LAB Device ID [id number] 05/28/2024 4:54 PM EDT [facility] Specimen Type POC Capillary 05/28/2024 4:54 PM EDT [facility] Blood Capillary blood specimen / Unknown 05/28/2024 4:53 PM EDT 05/28/2024 4:54 PM EDT Ashli Whitaker MD LAB POINT OF CARE TEST DOCKED DEVICE UNSOLICITED RESULTS Final Result Performing Organization Address [facility] de Phone Number [facility] [address] [place] [address] * (ABNORMAL) POCT glucose meter (05/28/2024 11:21 AM EDT) [facility] POCT Glucose 176(H) 74 - 99 mg/dL 05/28/2024 11:23 AM EDT [facility] Comment:Accuracy of a glucos e result obtained from a capillary whole blood specimen relies upon adequate, non-compromised capillary blood flow. If the capillary glucose result is not consistent with the patient's clinical signs and symptoms, glucose testing should be repeated with either an arterial or venous sample on the glucometer or sent to the main labortory for testing. Comment 05/28/2024 11:23 AM EDT [facility] Legal Researcher ID Isela Bojorquez 025 11:23 AM EDT HEALTHCARE LAB Device ID [id number] 05/28/2024 11:23 AM EDT [facility] LAB Specimen Type POC Capillary 05/28/2024 11:23 AM EDT [facility] Blood Capillary blood specimen / Unknown 05/28/2024 11:21 AM EDT 05/28/2024 11:23 AM EDT Ashli Whitaker MD LAB POINT OF CARE TEST DOCKED DEVICE UNSOLICITED RESULTS Final Result Performing Organization Address City/[facility] Co de Phone Number [facility] [address] [place] [address] * (ABNORMAL) POCT glucose meter (05/28/2024 7:39 AM EDT) [facility] POCT Glucose 192(H) 74 - 99 mg/dL 05/28/2024 7:40 AM EDT [facility] Comment:Accuracy of a glucos e result obtained from a capillary whole blood specimen relies upon adequate, non-compromised capillary blood flow. If the capillary glucose result is not consistent with the patient's clinical signs and symptoms, glucose testing should be repeated with either an arterial or venous sample on the glucometer or sent to the main labortory for testing. Comment 05/28/2024 7:40 AM EDT [facility] Legal Researcher ID Isela Bojorquez 025 7:40 AM EDT HEALTHCARE LAB Device ID [id number] 05/28/2024 7:40 AM EDT [facility] LAB Specimen Type POC Capillary 05/28/2024 7:40 AM EDT [facility] Blood Capillary blood specimen / Unknown 05/28/2024 7:39 AM EDT 05/28/2024 7:40 AM EDT Ashli Whitaker MD LAB POINT OF CARE TEST DOCKED DEVICE UNSOLICITED RESULTS Final Result Performing Organization Address City/[facility]/ZIP Co de Phone Number [facility] [address] [place] [address] * XR Chest 1 View (05/28/2024 5:58 AM EDT) Anatomical Region Laterality Modality Chest Digital Radiogra phy Impressions 05/28/2024 11:06 AM EDT Redemonstration of chronic interstitial lung disease, 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 Patchy opacities within left upper lobe, present before, probably accentuated evolving scarring. If needed, this could be further assessed with CT. CRITICAL RESULT: No. COMMUNICATION: Per this written report. By electronically signing this report, I, the attending physician, attest that I have personally reviewed the images/data for the above examination(s) and agree with the final edited report. Drafted by Go Alvarez MD on 05/28/2024 9:31 AM Final report signed by Ivonne Ramirez MD on 05/28/2024 11:06 AM Narrative 05/28/2024 11:06 AM EDT CLINICAL INDICATION: eval lung kimball TECHNIQUE: XR CHEST 1 VIEW COMPARISON: May 26, 2024, CT chest December 02, 2019 FINDINGS: Stable cardiomediastinal silhouette. Lung volumes remain low. Bilateral diffuse reticulonodular opacities with upper lung predilection, present before. No new consolidation. Stable small right-sided pleural effusion. No pneumothorax. Procedure Note Ivonne Ramirez MD - 05/28/2024 CLINICAL INDICATION: eval lung kimball TECHNIQUE: XR CHEST 1 VIEW COMPARISON: May 26, 2024, CT chest December 02, 2019 FINDINGS: Stable cardiomediastinal silhouette. Lung volumes remain low. Bilateraldiffuse reticulonodular opacities with upper lung predilection, presentbefore. No new consolidation. Stable small right-sided pleural effusion.No pneumothorax. IMPRESSION: Redemonstration of chronic interstitial lung disease, presumably relatedto burned out PLCH with concomitant emphysema. Patchy opacities within left upper lobe, present before, probablyaccentuated evolving scarring. If needed, this could be further assessedwith CT. CRITICAL RESULT: No. COMMUNICATION: Per this written report. By electronically signing this report, I, the attending physician, attestthat I have personally reviewed the images/data for the aboveexamination(s) and agree with the final edited report. Drafted by Go Alvarez MD on 05/28/2024 9:31 AM Final report signed by Ivonne Ramirez MD on 05/28/2024 11:06 AM Dick HOLLY IMG XR PROCEDURES Final Result * (ABNORMAL) Ionized calcium, whole blood (05/28/2024 2:46 AM EDT) Ionized Calcium, Whole Blood 4.5(L) 4.6 - 5.1 mg/dL LAB HEMATOLOGY METHOD 05/28/2024 2:58 AM EDT [facility] Blood Venous blood specimen / Unknown Venipuncture / Unknown 05/28/2024 2:46 AM EDT 05/28/2024 2:57 AM EDT Dick HOLLY LAB BLOOD ORDERABLES Final Res ult [facility] [address] [place] [address] * (ABNORMAL) CBC W/O Differential (05/28/2024 2:46 AM EDT) WBC Count 9.95 3.70 - 10.30 10*3/uL LAB HEMATOLOGY METHOD 05/28/2024 3:06 AM EDT [facility] RBC Count 3.75(L) 3.90 - 5.20 10*6/uL LAB HEMATOLOGY METHOD 05/28/2024 3:06 AM EDT [facility] HGB 9.3(L) 11.2 - 15.7 g/dL LAB HEMATOLOGY METHOD 05/28/2024 3:06 AM EDT [facility] HCT 30.3(L) 34.0 - 45.0 % LAB HEMATOLOGY METHOD 05/28/2024 3:06 AM EDT [facility] Platelet Count 249 155 - 369 10*3/uL LAB HEMATOLOGY METHOD 05/28/2024 3:06 AM EDT [facility] MCV 81 79 - 98 fL LAB HEMATOLOGY METHOD 05/28/2024 3:06 AM EDT [facility] MCH 24.8(L) 26.0 - 32.0 pg LAB HEMATOLOGY METHOD 05/28/2024 3:06 AM EDT [facility] MCHC 30.7 30.7 - 35.5 g/dL LAB HEMATOLOGY METHOD 05/28/2024 3:06 AM EDT [facility] RDW 17.0(H) 11.5 - 14.5 % LAB HEMATOLOGY METHOD 05/28/2024 3:06 AM EDT [facility] MPV 9.9 8.8 - 12.5 fL LAB HEMATOLOGY METHOD 05/28/2024 3:06 AM EDT [facility] nRBC 0.0 <=0.0 per 100 WBCs LAB HEMATOLOGY METHOD 05/28/2024 3:06 AM EDT [facility] Blood Venous blood specimen / Unknown Venipuncture / Unknown 05/28/2024 2:46 AM EDT 05/28/2024 2:57 AM EDT us Dick HOLLY LAB BLOOD ORDERABLES Final Res ult [facility] [address] [place] [address] * (ABNORMAL) Basic Metabolic Panel, Plasma (05/28/2024 2:46 AM EDT) Glucose, Plasma 319(H) 74 - 99 mg/dL 05/28/2024 3:26 AM EDT [facility] BUN, Plasma 97(H) 8 - 23 mg/dL 05/28/2024 3:26 AM EDT [facility] Creatinine, Plasma 1.50(H) 0.60 - 1.10 mg/dL 05/28/2024 3:26 AM EDT [facility] BUN/Creatinine Ratio 65 05/28/2024 3:26 AM EDT [facility] Sodium, Plasma 141 136 - 145 mmol/L 05/28/2024 3:26 AM EDT [facility] Potassium, Plasma 5.1(H) 3.6 - 4.9 mmol/L 05/28/2024 3:26 AM EDT [facility] Chloride, Plasma 104 97 - 107 mmol/L 05/28/2024 3:26 AM EDT [facility] CO2, Plasma 24 22 - 29 mmol/L 05/28/2024 3:26 AM EDT [facility] Anion Gap 13 6 - 16 mmol/L 05/28/2024 3:26 AM EDT [facility] Total Calcium, Plasma 8.6(L) 8.9 - 10.2 mg/dL 05/28/2024 3:26 AM EDT [facility] eGFRcr 39.0 mL/min/1.7 3m*2 05/28/2024 3:26 AM EDT [facility] Comment:Reported eGFRcr in m L/min/1.73m2 is based the CKD-EPI 2020 equation that does not use a race coefficient. Blood Venous blood specimen / Unknown Venipuncture / Unknown 05/28/2024 2:46 AM EDT 05/28/2024 2:58 AM EDT us Dick HOLLY LAB BLOOD ORDERABLES Final Res ult [facility] [address] [place] [address] * (ABNORMAL) POCT glucose meter (05/27/2024 11:29 PM EDT) POCT Glucose 329(H) 74 - 99 mg/dL 05/27/2024 11:31 PM EDT [facility] Comment:Accuracy of a glucos e result obtained from a capillary whole blood specimen relies upon adequate, non-compromised capillary blood flow. If the capillary glucose result is not consistent with the patient's clinical signs and symptoms, glucose testing should be repeated with either an arterial or venous sample on the glucometer or sent to the main labortory for testing. Comment 05/27/2024 11:31 PM EDT [facility] Legal Researcher ID Ashli Fung 05/28/19 25 11:31 PM EDT [facility] Device ID [id number] 05/27/2024 11:31 PM EDT [facility] Specimen Type POC Capillary 05/27/2024 11:31 PM EDT [facility] Blood Capillary blood specimen / Unknown 05/27/2024 11:29 PM EDT 05/27/2024 11:31 PM EDT us Alex Diaz MD LAB POINT OF CARE TE ST DOCKED DEVICE UNSOLICITED RESULTS Final Result Performing Organization Address City/[facility] Co de Phone Number [facility] [address] [place] [address] * (ABNORMAL) POCT glucose meter (05/27/2024 7:58 PM EDT) POCT Glucose 339(H) 74 - 99 mg/dL 05/27/2024 7:59 PM EDT [facility] Comment:Accuracy of a glucos e result obtained from a capillary whole blood specimen relies upon adequate, non-compromised capillary blood flow. If the capillary glucose result is not consistent with the patient's clinical signs and symptoms, glucose testing should be repeated with either an arterial or venous sample on the glucometer or sent to the main labortory for testing. Comment 05/27/2024 7:59 PM EDT [facility] Legal Researcher ID Ashli Fung 05/28/19 7:59 PM EDT [facility] Device ID [id number] 05/27/2024 7:59 PM EDT [facility] Specimen Type POC Capillary 05/27/2024 7:59 PM EDT [facility] Blood Capillary blood specimen / Unknown 05/27/2024 7:58 PM EDT 05/27/2024 7:59 PM EDT us Alex Diaz MD LAB POINT OF CARE TE ST DOCKED DEVICE UNSOLICITED RESULTS Final Result Performing Organization Address City/[facility] Co de Phone Number [facility] [address] [place] [address] * (ABNORMAL) POCT glucose meter (05/27/2024 4:38 PM EDT) POCT Glucose 164(H) 74 - 99 mg/dL 05/27/2024 4:40 PM EDT [facility] Comment:Accuracy of a glucos e result obtained from a capillary whole blood specimen relies upon adequate, non-compromised capillary blood flow. If the capillary glucose result is not consistent with the patient's clinical signs and symptoms, glucose testing should be repeated with either an arterial or venous sample on the glucometer or sent to the main labortory for testing. Comment 05/27/2024 4:40 PM EDT [facility] Legal Researcher ID Delma Soriano 025 4:40 PM EDT [facility] Device ID [id number] 05/27/2024 4:40 PM EDT [facility] Specimen Type POC Capillary 05/27/2024 4:40 PM EDT [facility] Blood Capillary blood specimen / Unknown 05/27/2024 4:38 PM EDT 05/27/2024 4:40 PM EDT Alex Diaz MD LAB POINT OF CARE TE ST DOCKED DEVICE UNSOLICITED RESULTS Final Result Performing Organization Address City/[facility] Co de Phone Number [facility] [address] [place] [address] * (ABNORMAL) POCT glucose meter (05/27/2024 11:45 AM EDT) POCT Glucose 218(H) 74 - 99 mg/dL 05/27/2024 11:47 AM EDT [facility] Comment:Accuracy of a glucos e result obtained from a capillary whole blood specimen relies upon adequate, non-compromised capillary blood flow. If the capillary glucose result is not consistent with the patient's clinical signs and symptoms, glucose testing should be repeated with either an arterial or venous sample on the glucometer or sent to the main labortory for testing. Comment 05/27/2024 11:47 AM EDT [facility] Legal Researcher ID Delam Soriano 025 11:47 AM EDT [facility] Device ID [id number] 05/27/2024 11:47 AM EDT [facility] Specimen Type POC Capillary 05/27/2024 11:47 AM EDT [facility] Blood Capillary blood specimen / Unknown 05/27/2024 11:45 AM EDT 05/27/2024 11:47 AM EDT Alex Diaz MD LAB POINT OF CARE TE ST DOCKED DEVICE UNSOLICITED RESULTS Final Result Performing Organization Address City/[facility]/ZIP Co de Phone Number [facility] [address] [place] [address] * (ABNORMAL) POCT glucose meter (05/27/2024 8:52 AM EDT) Pathologist [facility] [place] POCT Glucose 286(H) 74 - 99 mg/dL 05/27/2024 8:54 AM EDT [facility] Comment:Accuracy of a glucos e result obtained from a capillary whole blood specimen relies upon adequate, non-compromised capillary blood flow. If the capillary glucose result is not consistent with the patient's clinical signs and symptoms, glucose testing should be repeated with either an arterial or venous sample on the glucometer or sent to the main labortory for testing. Comment 05/27/2024 8:54 AM EDT [facility] Legal Researcher ID Delma Soriano 025 8:54 AM EDT [facility] Device ID [id number] 05/27/2024 8:54 AM EDT [facility] Specimen Type POC Capillary 05/27/2024 8:54 AM EDT [facility] Blood Capillary blood specimen / Unknown 05/27/2024 8:52 AM EDT 05/27/2024 8:54 AM EDT Alex Diaz MD LAB POINT OF CARE TE ST DOCKED DEVICE UNSOLICITED RESULTS Final Result Performing Organization Address City/State/[facility] Co de Phone Number [facility] [address] [place] [address] * (ABNORMAL) POCT glucose meter (05/27/2024 2:35 AM EDT) Pathologist [facility] POCT Glucose 364(H) 74 - 99 mg/dL 05/27/2024 2:37 AM EDT [facility] Comment:Accuracy of a glucos e result obtained from a capillary whole blood specimen relies upon adequate, non-compromised capillary blood flow. If the capillary glucose result is not consistent with the patient's clinical signs and symptoms, glucose testing should be repeated with either an arterial or venous sample on the glucometer or sent to the main labortory for testing. Comment 05/27/2024 2:37 AM EDT [facility] Legal Researcher ID Leonard Lexxmick Hawthorne 05/27/2024 2:37 AM EDT [facility] Device ID [id number] 05/27/2024 2:37 AM EDT [facility] Specimen Type POC Capillary 05/27/2024 2:37 AM EDT [facility] Blood Capillary blood specimen / Unknown 05/27/2024 2:35 AM EDT 05/27/2024 2:37 AM EDT us Rubén Martin MD LAB POINT OF CARE TEST DOCKED DEVICE UNSOLICITED RESULTS Final Result Performing Organization Address City/[facility]/ZIP Co de Phone Number [facility] [address] [place] [address] * Lavender Top (05/27/2024 12:46 AM EDT) [facility] Extra Hold for add-ons 05/27/2024 3:23 AM EDT [facility] Comment:Auto resulted. Blood Venous blood specimen / Unknown 05/27/2024 12:46 AM EDT 05/27/2024 12:51 AM EDT Rubén Martin MD LAB BLOOD ORDERABLES Final Result Performing Organization Address [facility]/ZIP Co de Phone Number [facility] [address] [place] [address] * (ABNORMAL) Phosphorus, Plasma (05/27/2024 12:46 AM EDT) [facility] Phosphorus, Plasma 4.6(H) 2.5 - 4.5 mg/dL 05/27/2024 1:30 AM EDT [facility] Blood Venous blood specimen / Unknown Venipuncture / Unknown 05/27/2024 12:46 AM EDT 05/27/2024 12:51 AM EDT Rukhsana Dawkins APRN LAB BLOOD ORDERABLES Final Result Performing Organization Address [facility]/ZIP Co de Phone Number [facility] [address] [place] [address] * Magnesium, Plasma (05/27/2024 12:46 AM EDT) Magnesium, Plasma 2.1 1.9 - 2.4 mg/dL 05/27/2024 1:30 AM EDT [facility] Blood Venous blood specimen / Unknown Venipuncture / Unknown 05/27/2024 12:46 AM EDT 05/27/2024 12:51 AM EDT Rukhsana Dawkins GRIPS LAB BLOOD ORDERABLES Final Result Performing Organization Address [facility]/ZIP Co de Phone Number [facility] [address] [place] [address] * (ABNORMAL) Ionized calcium, whole blood (05/27/2024 12:46 AM EDT) Ionized Calcium, Whole Blood 4.3(L) 4.6 - 5.1 mg/dL LAB HEMATOLOGY METHOD 05/27/2024 12:54 AM EDT [facility] Blood Venous blood specimen / Unknown Venipuncture / Unknown 05/27/2024 12:46 AM EDT 05/27/2024 12:52 AM EDT Rukhsana Dawkins GRIPS LAB BLOOD ORDERABLES Final Result Performing Organization Address [facility]/ZIP Co de Phone Number [facility] [address] [place] [address] * (ABNORMAL) Basic Metabolic Panel, Plasma (05/27/2024 12:46 AM EDT) Glucose, Plasma 281(H) 74 - 99 mg/dL 05/27/2024 1:31 AM EDT [facility] BUN, Plasma 105(H) 8 - 23 mg/dL 05/27/2024 1:31 AM EDT [facility] Creatinine, Plasma 1.92(H) 0.60 - 1.10 mg/dL 05/27/2024 1:31 AM EDT [facility] BUN/Creatinine Ratio 55 05/27/2024 1:31 AM EDT [facility] Sodium, Plasma 139 136 - 145 mmol/L 05/27/2024 1:31 AM EDT [facility] Potassium, Plasma 5.1(H) 3.6 - 4.9 mmol/L 05/27/2024 1:31 AM EDT [facility] Chloride, Plasma 103 97 - 107 mmol/L 05/27/2024 1:31 AM EDT [facility] CO2, Plasma 24 22 - 29 mmol/L 05/27/2024 1:31 AM EDT [facility] Anion Gap 12 6 - 16 mmol/L 05/27/2024 1:31 AM EDT [facility] Total Calcium, Plasma 8.4(L) 8.9 - 10.2 mg/dL 05/27/2024 1:31 AM EDT [facility] eGFRcr 29.0 mL/min/1.7 3m*2 05/27/2024 1:31 AM EDT [facility] Comment:Reported eGFRcr in m L/min/1.73m2 is based the CKD-EPI 2020 equation that does not use a race coefficient. Blood Venous blood specimen / Unknown Venipuncture / Unknown 05/27/2024 12:46 AM EDT 05/27/2024 12:51 AM EDT Rukhsana Dawkins APRN LAB BLOOD ORDERABLES Final Result [facility] [address] [place] [address] * (ABNORMAL) POCT glucose meter (05/26/2024 9:01 PM EDT) [facility] POCT Glucose 257(H) 74 - 99 mg/dL 05/26/2024 9:03 PM EDT [facility] Comment:Accuracy of a glucos e result obtained from a capillary whole blood specimen relies upon adequate, non-compromised capillary blood flow. If the capillary glucose result is not consistent with the patient's clinical signs and symptoms, glucose testing should be repeated with either an arterial or venous sample on the glucometer or sent to the main labortory for testing. Comment 05/26/2024 9:03 PM EDT [facility] Legal Researcher ID Leonard Lexxmick Hawthorne 05/26/2024 9:03 PM EDT [facility] Device ID [id number] 05/26/2024 9:03 PM EDT [facility] Specimen Type POC Capillary 05/26/2024 9:03 PM EDT [facility] Blood Capillary blood specimen / Unknown 05/26/2024 9:01 PM EDT 05/26/2024 9:03 PM EDT Rubén Martin MD LAB POINT OF CARE TEST DOCKED DEVICE UNSOLICITED RESULTS Final Result Performing Organization Address [facility] de Phone Number [facility] [address] [place] [address] * (ABNORMAL) POCT glucose meter (05/26/2024 5:39 PM EDT) Pathologist [facility] POCT Glucose 167(H) 74 - 99 mg/dL 05/26/2024 5:40 PM EDT [facility] Comment:Accuracy of a glucos e result obtained from a capillary whole blood specimen relies upon adequate, non-compromised capillary blood flow. If the capillary glucose result is not consistent with the patient's clinical signs and symptoms, glucose testing should be repeated with either an arterial or venous sample on the glucometer or sent to the main labortory for testing. Comment 05/26/2024 5:40 PM EDT [facility] Legal Researcher ID Trudi Villalobos 05/26/2024 5:40 PM EDT [facility] Device ID [id number] 05/26/2024 5:40 PM EDT [facility] Specimen Type POC Capillary 05/26/2024 5:40 PM EDT [facility] Blood Capillary blood specimen / Unknown 05/26/2024 5:39 PM EDT 05/26/2024 5:40 PM EDT Rubén Martin MD LAB POINT OF CARE TEST DOCKED DEVICE UNSOLICITED RESULTS Final Result Performing Organization Address City/[facility] Co de Phone Number [facility] [address] [place] [address] * (ABNORMAL) POCT glucose meter (05/26/2024 1:20 PM EDT) Pathologist [facility] POCT Glucose 278(H) 74 - 99 mg/dL 05/26/2024 1:21 PM EDT [facility] Comment:Accuracy of a glucos e result obtained from a capillary whole blood specimen relies upon adequate, non-compromised capillary blood flow. If the capillary glucose result is not consistent with the patient's clinical signs and symptoms, glucose testing should be repeated with either an arterial or venous sample on the glucometer or sent to the main labortory for testing. Comment 05/26/2024 1:21 PM EDT [facility] Legal Researcher ID Trudi Villalobos 05/26/2024 1:21 PM EDT [facility] Device ID [id number] 05/26/2024 1:21 PM EDT [facility] Specimen Type POC Capillary 05/26/2024 1:21 PM EDT [facility] Blood Capillary blood specimen / Unknown 05/26/2024 1:20 PM EDT 05/26/2024 1:21 PM EDT Rubén Martin MD LAB POINT OF CARE TEST DOCKED DEVICE UNSOLICITED RESULTS Final Result [facility] [address] [place] [address] * ECG Adult (05/26/2024 12:38 PM EDT) EKG DIAGNOSIS CLASS Abnormal MUSE ECG Ventricular Rate 129 BPM MUSE ECG QRSD Interval 80 ms MUSE ECG QT Interval 276 ms MUSE ECG QTC Interval 404 ms MUSE ECG R [place] -18 degrees MUSE ECG T Wave [place] 73 degrees MUSE ECG Diagnosis Atrial fibrillation with rapid ventricular response MUSE ECG Diagnosis Abnormal ECG MUSE ECG Diagnosis MUSE ECG Diagnosis Confirmed by Jairon Bruce ([id number]) on 05/27/2024 9:30:09 PM MUSE ECG 05/26/2024 12:3 8 PM EDT 05/27/2024 9:30 PM EDT us Rukhsana Dawkins APRN ECG ORDERABLES Final Resu lt MUSE ECG * (ABNORMAL) POCT glucose meter (05/26/2024 9:11 AM EDT) Pathologist [facility] POCT Glucose 290(H) 74 - 99 mg/dL 05/26/2024 9:13 AM EDT [facility] Comment:Accuracy of a glucos e result obtained from a capillary whole blood specimen relies upon adequate, non-compromised capillary blood flow. If the capillary glucose result is not consistent with the patient's clinical signs and symptoms, glucose testing should be repeated with either an arterial or venous sample on the glucometer or sent to the main labortory for testing. Comment 05/26/2024 9:13 AM EDT [facility] Legal Researcher ID Trudi Villalobos 05/26/2024 9:13 AM EDT [facility] Device ID [id number] 05/26/2024 9:13 AM EDT [facility] Specimen Type POC Capillary 05/26/2024 9:13 AM EDT [facility] Blood Capillary blood specimen / Unknown 05/26/2024 9:11 AM EDT 05/26/2024 9:13 AM EDT Rubén Martin MD LAB POINT OF CARE TEST DOCKED DEVICE UNSOLICITED RESULTS Final Result Performing Organization Address City/State/[facility] Co de Phone Number [facility] [address] [place] [address] * XR Chest 1 View (05/26/2024 2:50 AM EDT) Anatomical Region Laterality Modality Chest Digital Radiogra phy Impressions 05/26/2024 11:39 AM EDT No significant interval change. CRITICAL RESULT: No. COMMUNICATION: Per this written report. By electronically signing this report, I, the attending physician, attest that I have personally reviewed the images/data for the above examination(s) and agree with the final edited report. Drafted by Derrick Patiño MD on 05/26/2024 8:58 AM Final report signed by Christa Whittaker MD on 05/26/2024 11:39 AM Narrative 05/26/2024 11:39 AM EDT CLINICAL INDICATION: eval lung kimball TECHNIQUE: XR CHEST 1 VIEW COMPARISON: Chest radiograph from 05/25/2024 FINDINGS: Stable mediastinal and cardiac contours. Persistent bilateral interstitial opacities without significant interval change. Stable small right pleural effusion. No new consolidation or pneumothorax. Procedure Note Christa Whittaker MD - 05/26/2024 CLINICAL INDICATION: eval lung kimball TECHNIQUE: XR CHEST 1 VIEW COMPARISON: Chest radiograph from 05/25/2024 FINDINGS: Stable mediastinal and cardiac contours. Persistent bilateral interstitialopacities without significant interval change. Stable small right pleuraleffusion. No new consolidation or pneumothorax. IMPRESSION: No significant interval change. CRITICAL RESULT: No. COMMUNICATION: Per this written report. By electronically signing this report, I, the attending physician, tessaat I have personally reviewed the images/data for the aboveexamination(s) and agree with the final edited report. Drafted by Derrick Patiño MD on 05/26/2024 8:58 AM Final report signed by Christa Whittaker MD on 05/26/2024 11:39 AM Dick HOLLY IMG XR PROCEDURES Final Result * (ABNORMAL) Phosphorus, Plasma (05/26/2024 1:34 AM EDT) Phosphorus, Plasma 5.4(H) 2.5 - 4.5 mg/dL 05/26/2024 2:23 AM EDT [facility] Blood Venous blood specimen / Unknown Venipuncture / Unknown 05/26/2024 1:34 AM EDT 05/26/2024 1:39 AM EDT Dick HOLLY LAB BLOOD ORDERABLES Final Res ult Performing Organization Address [facility] Co de Phone Number [facility] [address] [place] [address] * Magnesium, Plasma (05/26/2024 1:34 AM EDT) Magnesium, Plasma 2.0 1.9 - 2.4 mg/dL 05/26/2024 2:23 AM EDT [facility] Blood Venous blood specimen / Unknown Venipuncture / Unknown 05/26/2024 1:34 AM EDT 05/26/2024 1:39 AM EDT Dick HOLLY LAB BLOOD ORDERABLES Final Res ult Performing Organization Address City/[facility] Co de Phone Number [facility] [address] [place] [address] * (ABNORMAL) CBC W/O Differential (05/26/2024 1:34 AM EDT) WBC Count 10.18 3.70 - 10.30 10*3/uL LAB HEMATOLOGY METHOD 05/26/2024 1:48 AM EDT [facility] RBC Count 3.30(L) 3.90 - 5.20 10*6/uL LAB HEMATOLOGY METHOD 05/26/2024 1:48 AM EDT [facility] HGB 8.3(L) 11.2 - 15.7 g/dL LAB HEMATOLOGY METHOD 05/26/2024 1:48 AM EDT [facility] HCT 27.2(L) 34.0 - 45.0 % LAB HEMATOLOGY METHOD 05/26/2024 1:48 AM EDT [facility] Platelet Count 194 155 - 369 10*3/uL LAB HEMATOLOGY METHOD 05/26/2024 1:48 AM EDT [facility] MCV 82 79 - 98 fL LAB HEMATOLOGY METHOD 05/26/2024 1:48 AM EDT [facility] MCH 25.2(L) 26.0 - 32.0 pg LAB HEMATOLOGY METHOD 05/26/2024 1:48 AM EDT [facility] MCHC 30.5(L) 30.7 - 35.5 g/dL LAB HEMATOLOGY METHOD 05/26/2024 1:48 AM EDT [facility] RDW 17.3(H) 11.5 - 14.5 % LAB HEMATOLOGY METHOD 05/26/2024 1:48 AM EDT [facility] MPV 10.3 8.8 - 12.5 fL LAB HEMATOLOGY METHOD 05/26/2024 1:48 AM EDT [facility] nRBC 0.0 <=0.0 per 100 WBCs LAB HEMATOLOGY METHOD 05/26/2024 1:48 AM EDT [facility] Blood Venous blood specimen / Unknown Venipuncture / Unknown 05/26/2024 1:34 AM EDT 05/26/2024 1:39 AM EDT us Dick HOLLY LAB BLOOD ORDERABLES Final Res ult [facility] [address] [place] [address] * (ABNORMAL) Basic Metabolic Panel, Plasma (05/26/2024 1:34 AM EDT) Glucose, Plasma 353(H) 74 - 99 mg/dL 05/26/2024 2:23 AM EDT [facility] BUN, Plasma 113(H) 8 - 23 mg/dL 05/26/2024 2:23 AM EDT [facility] Creatinine, Plasma 2.42(H) 0.60 - 1.10 mg/dL 05/26/2024 2:23 AM EDT [facility] BUN/Creatinine Ratio 47 05/26/2024 2:23 AM EDT [facility] Sodium, Plasma 136 136 - 145 mmol/L 05/26/2024 2:23 AM EDT [facility] Potassium, Plasma 4.8 3.6 - 4.9 mmol/L 05/26/2024 2:23 AM EDT [facility] Chloride, Plasma 101 97 - 107 mmol/L 05/26/2024 2:23 AM EDT [facility] CO2, Plasma 23 22 - 29 mmol/L 05/26/2024 2:23 AM EDT [facility] Anion Gap 12 6 - 16 mmol/L 05/26/2024 2:23 AM EDT [facility] Total Calcium, Plasma 8.0(L) 8.9 - 10.2 mg/dL 05/26/2024 2:23 AM EDT [facility] eGFRcr 22.0 mL/min/1.7 3m*2 05/26/2024 2:23 AM EDT [facility] Comment:Reported eGFRcr in m L/min/1.73m2 is based the CKD-EPI 2020 equation that does not use a race coefficient. Blood Venous blood specimen / Unknown Venipuncture / Unknown 05/26/2024 1:34 AM EDT 05/26/2024 1:39 AM EDT us Dick HOLLY LAB BLOOD ORDERABLES Final Res ult [facility] [address] [place] [address] * (ABNORMAL) POCT glucose meter (05/25/2024 9:09 PM EDT) [facility] POCT Glucose 206(H) 74 - 99 mg/dL 05/25/2024 9:10 PM EDT [facility] Comment:Accuracy of a glucos e result obtained from a capillary whole blood specimen relies upon adequate, non-compromised capillary blood flow. If the capillary glucose result is not consistent with the patient's clinical signs and symptoms, glucose testing should be repeated with either an arterial or venous sample on the glucometer or sent to the main labortory for testing. Comment 05/25/2024 9:10 PM EDT [facility] Legal Researcher ID Emmanuelle Valle 05/25/2024 9:10 PM EDT [facility] Device ID [id number] 05/25/2024 9:10 PM EDT [facility] Specimen Type POC Capillary 05/25/2024 9:10 PM EDT [facility] Blood Capillary blood specimen / Unknown 05/25/2024 9:09 PM EDT 05/25/2024 9:10 PM EDT Rubén Martin MD LAB POINT OF CARE TEST DOCKED DEVICE UNSOLICITED RESULTS Final Result Performing Organization Address City/State/[facility] Co de Phone Number [facility] [address] [place] [phone] * (ABNORMAL) POCT glucose meter (05/25/2024 6:14 PM EDT) [facility] POCT Glucose 299(H) 74 - 99 mg/dL 05/25/2024 6:15 PM EDT [facility] Comment:Accuracy of a glucos e result obtained from a capillary whole blood specimen relies upon adequate, non-compromised capillary blood flow. If the capillary glucose result is not consistent with the patient's clinical signs and symptoms, glucose testing should be repeated with either an arterial or venous sample on the glucometer or sent to the main labortory for testing. Comment 05/25/2024 6:15 PM EDT [facility] Legal Researcher ID Trudi Villalobos 05/25/2024 6:15 PM EDT [facility] Device ID [id number] 05/25/2024 6:15 PM EDT [facility] Specimen Type POC Capillary 05/25/2024 6:15 PM EDT [facility] Blood Capillary blood specimen / Unknown 05/25/2024 6:14 PM EDT 05/25/2024 6:15 PM EDT Rubén Martin MD LAB POINT OF CARE TEST DOCKED DEVICE UNSOLICITED RESULTS Final Result Performing Organization Address City/[facility] Co de Phone Number [facility] [address] [place] [address] * (ABNORMAL) POCT glucose meter (05/25/2024 1:23 PM EDT) POCT Glucose 290(H) 74 - 99 mg/dL 05/25/2024 1:25 PM EDT [facility] Comment:Accuracy of a glucos e result obtained from a capillary whole blood specimen relies upon adequate, non-compromised capillary blood flow. If the capillary glucose result is not consistent with the patient's clinical signs and symptoms, glucose testing should be repeated with either an arterial or venous sample on the glucometer or sent to the main labortory for testing. Comment 05/25/2024 1:25 PM EDT [facility] Legal Researcher ID Trudi Villalobos 05/25/2024 1:25 PM EDT [facility] Device ID [id number] 05/25/2024 1:25 PM EDT [facility] Specimen Type POC Capillary 05/25/2024 1:25 PM EDT [facility] Blood Capillary blood specimen / Unknown 05/25/2024 1:23 PM EDT 05/25/2024 1:25 PM EDT Rubén Martin MD LAB POINT OF CARE TEST DOCKED DEVICE UNSOLICITED RESULTS Final Result Performing Organization Address City/[facility]/ZIP Co de Phone Number [facility] [address] [place] [address] * XR Tibia Fibula Left 2+ Views (05/25/2024 8:25 AM EDT) Anatomical Region Laterality Modality Lower Extremities, Lower Leg Left Dig ital Radiography Impressions 05/25/2024 9:04 AM EDT No acute osseous finding of the left humerus, elbow, forearm, or tib-fib. There is a trace to small elbow joint effusion, and trace suprapatellar effusion. CRITICAL RESULT: No. COMMUNICATION: Per this written report. Drafted by Leonor Kramer MD on 05/25/2024 9:01 AM Final report signed by Leonor Kramer MD on 05/25/2024 9:04 AM Narrative 05/25/2024 9:04 AM EDT CLINICAL INDICATION: pain TECHNIQUE: XR ELBOW LEFT 3+ VIEWS, XR HUMERUS LEFT 2+ VIEWS, XR FOREARM LEFT 2 VIEWS, XR TIBIA FIBULA LEFT 2+ VIEWS COMPARISON: None. FINDINGS: Left humerus: No acute fracture or dislocation. No significant soft tissue swelling. Diffuse demineralization. Left forearm/elbow: No evidence of a displaced fracture. Trace to small elbow joint effusion. No significant soft tissue swelling. Diffuse mineralization. Diffuse vascular calcifications. No soft tissue swelling. Left tib-fib: Diffuse mineralization. No acute fracture or dislocation. Trace suprapatellar effusion. Vascular calcifications. Calcaneal enthesopathy. No severe soft tissue swelling. Chondrocalcinosis in the medial and lateral compartments of the knee. Procedure Note Leonor Kramer MD - 05/25/2024 CLINICAL INDICATION: pain TECHNIQUE: XR ELBOW LEFT 3+ VIEWS, XR HUMERUS LEFT 2+ VIEWS, XR FOREARM LEFT 2VIEWS, XR TIBIA FIBULA LEFT 2+ VIEWS COMPARISON: None. FINDINGS: Left humerus: No acute fracture or dislocation. No significant soft tissueswelling. Diffuse demineralization. Left forearm/elbow: No evidence of a displaced fracture. Trace to smallelbow joint effusion. No significant soft tissue swelling. Diffusemineralization. Diffuse vascular calcifications. No soft tissueswelling. Left tib-fib: Diffuse mineralization. No acute fracture or dislocation.Trace suprapatellar effusion. Vascular calcifications. Calcanealenthesopathy. No severe soft tissue swelling. Chondrocalcinosis in themedial and lateral compartments of the knee. IMPRESSION: No acute osseous finding of the left humerus, elbow, forearm, ortib-fib. There is a trace to small elbow joint effusion, and trace suprapatellareffusion. CRITICAL RESULT: No. COMMUNICATION: Per this written report. Drafted by Leonor Kramer MD on 05/25/2024 9:01 AM Final report signed by Leonor Kramer MD on 05/25/2024 9:04 AM us uRbén Martin MD IMG XR PROCEDURES Final Re sult * XR Forearm Left 2 Views (05/25/2024 8:25 AM EDT) Anatomical Region Laterality Modality Upper Extremities, Forearm Left Digit al Radiography Impressions 05/25/2024 9:04 AM EDT No acute osseous finding of the left humerus, elbow, forearm, or tib-fib. There is a trace to small elbow joint effusion, and trace suprapatellar effusion. CRITICAL RESULT: No. COMMUNICATION: Per this written report. Drafted by Leonor Kramer MD on 05/25/2024 9:01 AM Final report signed by Leonor Kramer MD on 05/25/2024 9:04 AM Narrative 05/25/2024 9:04 AM EDT CLINICAL INDICATION: pain TECHNIQUE: XR ELBOW LEFT 3+ VIEWS, XR HUMERUS LEFT 2+ VIEWS, XR FOREARM LEFT 2 VIEWS, XR TIBIA FIBULA LEFT 2+ VIEWS COMPARISON: None. FINDINGS: Left humerus: No acute fracture or dislocation. No significant soft tissue swelling. Diffuse demineralization. Left forearm/elbow: No evidence of a displaced fracture. Trace to small elbow joint effusion. No significant soft tissue swelling. Diffuse mineralization. Diffuse vascular calcifications. No soft tissue swelling. Left tib-fib: Diffuse mineralization. No acute fracture or dislocation. Trace suprapatellar effusion. Vascular calcifications. Calcaneal enthesopathy. No severe soft tissue swelling. Chondrocalcinosis in the medial and lateral compartments of the knee. Procedure Note Leonor Kramer MD - 05/25/2024 CLINICAL INDICATION: pain TECHNIQUE: XR ELBOW LEFT 3+ VIEWS, XR HUMERUS LEFT 2+ VIEWS, XR FOREARM LEFT 2VIEWS, XR TIBIA FIBULA LEFT 2+ VIEWS COMPARISON: None. FINDINGS: Left humerus: No acute fracture or dislocation. No significant soft tissueswelling. Diffuse demineralization. Left forearm/elbow: No evidence of a displaced fracture. Trace to smallelbow joint effusion. No significant soft tissue swelling. Diffusemineralization. Diffuse vascular calcifications. No soft tissueswelling. Left tib-fib: Diffuse mineralization. No acute fracture or dislocation.Trace suprapatellar effusion. Vascular calcifications. Calcanealenthesopathy. No severe soft tissue swelling. Chondrocalcinosis in themedial and lateral compartments of the knee. IMPRESSION: No acute osseous finding of the left humerus, elbow, forearm, ortib-fib. There is a trace to small elbow joint effusion, and trace suprapatellareffusion. CRITICAL RESULT: No. COMMUNICATION: Per this written report. Drafted by Leonor Kramer MD on 05/25/2024 9:01 AM Final report signed by Leonor Kramer MD on 05/25/2024 9:04 AM us Rubén Martin MD IMG XR PROCEDURES Final Re sult * XR Elbow Left 3+ Views (05/25/2024 8:25 AM EDT) Anatomical Region Laterality Modality Upper Extremities, Elbow Left Digital Radiography Impressions 05/25/2024 9:04 AM EDT No acute osseous finding of the left humerus, elbow, forearm, or tib-fib. There is a trace to small elbow joint effusion, and trace suprapatellar effusion. CRITICAL RESULT: No. COMMUNICATION: Per this written report. Drafted by Leonor Kramer MD on 05/25/2024 9:01 AM Final report signed by Leonor Kramer MD on 05/25/2024 9:04 AM Narrative 05/25/2024 9:04 AM EDT CLINICAL INDICATION: pain TECHNIQUE: XR ELBOW LEFT 3+ VIEWS, XR HUMERUS LEFT 2+ VIEWS, XR FOREARM LEFT 2 VIEWS, XR TIBIA FIBULA LEFT 2+ VIEWS COMPARISON: None. FINDINGS: Left humerus: No acute fracture or dislocation. No significant soft tissue swelling. Diffuse demineralization. Left forearm/elbow: No evidence of a displaced fracture. Trace to small elbow joint effusion. No significant soft tissue swelling. Diffuse mineralization. Diffuse vascular calcifications. No soft tissue swelling. Left tib-fib: Diffuse mineralization. No acute fracture or dislocation. Trace suprapatellar effusion. Vascular calcifications. Calcaneal enthesopathy. No severe soft tissue swelling. Chondrocalcinosis in the medial and lateral compartments of the knee. Procedure Note Leonor Kramer MD - 05/25/2024 CLINICAL INDICATION: pain TECHNIQUE: XR ELBOW LEFT 3+ VIEWS, XR HUMERUS LEFT 2+ VIEWS, XR FOREARM LEFT 2VIEWS, XR TIBIA FIBULA LEFT 2+ VIEWS COMPARISON: None. FINDINGS: Left humerus: No acute fracture or dislocation. No significant soft tissueswelling. Diffuse demineralization. Left forearm/elbow: No evidence of a displaced fracture. Trace to smallelbow joint effusion. No significant soft tissue swelling. Diffusemineralization. Diffuse vascular calcifications. No soft tissueswelling. Left tib-fib: Diffuse mineralization. No acute fracture or dislocation.Trace suprapatellar effusion. Vascular calcifications. Calcanealenthesopathy. No severe soft tissue swelling. Chondrocalcinosis in themedial and lateral compartments of the knee. IMPRESSION: No acute osseous finding of the left humerus, elbow, forearm, ortib-fib. There is a trace to small elbow joint effusion, and trace suprapatellareffusion. CRITICAL RESULT: No. COMMUNICATION: Per this written report. Drafted by Leonor Kramer MD on 05/25/2024 9:01 AM Final report signed by Leonor Kramer MD on 05/25/2024 9:04 AM us Rubén Martin MD IMG XR PROCEDURES Final Re sult * XR Humerus Left 2+ Views (05/25/2024 8:25 AM EDT) Anatomical Region Laterality Modality Upper Extremities, Humerus Left Digit al Radiography Impressions 05/25/2024 9:04 AM EDT No acute osseous finding of the left humerus, elbow, forearm, or tib-fib. There is a trace to small elbow joint effusion, and trace suprapatellar effusion. CRITICAL RESULT: No. COMMUNICATION: Per this written report. Drafted by Leonor Kramer MD on 05/25/2024 9:01 AM Final report signed by Leonor Kramer MD on 05/25/2024 9:04 AM Narrative 05/25/2024 9:04 AM EDT CLINICAL INDICATION: pain TECHNIQUE: XR ELBOW LEFT 3+ VIEWS, XR HUMERUS LEFT 2+ VIEWS, XR FOREARM LEFT 2 VIEWS, XR TIBIA FIBULA LEFT 2+ VIEWS COMPARISON: None. FINDINGS: Left humerus: No acute fracture or dislocation. No significant soft tissue swelling. Diffuse demineralization. Left forearm/elbow: No evidence of a displaced fracture. Trace to small elbow joint effusion. No significant soft tissue swelling. Diffuse mineralization. Diffuse vascular calcifications. No soft tissue swelling. Left tib-fib: Diffuse mineralization. No acute fracture or dislocation. Trace suprapatellar effusion. Vascular calcifications. Calcaneal enthesopathy. No severe soft tissue swelling. Chondrocalcinosis in the medial and lateral compartments of the knee. Procedure Note Leonor Kramer MD - 05/25/2024 CLINICAL INDICATION: pain TECHNIQUE: XR ELBOW LEFT 3+ VIEWS, XR HUMERUS LEFT 2+ VIEWS, XR FOREARM LEFT 2VIEWS, XR TIBIA FIBULA LEFT 2+ VIEWS COMPARISON: None. FINDINGS: Left humerus: No acute fracture or dislocation. No significant soft tissueswelling. Diffuse demineralization. Left forearm/elbow: No evidence of a displaced fracture. Trace to smallelbow joint effusion. No significant soft tissue swelling. Diffusemineralization. Diffuse vascular calcifications. No soft tissueswelling. Left tib-fib: Diffuse mineralization. No acute fracture or dislocation.Trace suprapatellar effusion. Vascular calcifications. Calcanealenthesopathy. No severe soft tissue swelling. Chondrocalcinosis in themedial and lateral compartments of the knee. IMPRESSION: No acute osseous finding of the left humerus, elbow, forearm, ortib-fib. There is a trace to small elbow joint effusion, and trace suprapatellareffusion. CRITICAL RESULT: No. COMMUNICATION: Per this written report. Drafted by Leonor Kramer MD on 05/25/2024 9:01 AM Final report signed by Leonor Kramer MD on 05/25/2024 9:04 AM Rubén Martin MD IMG XR PROCEDURES Final Re sult * (ABNORMAL) POCT glucose meter (05/25/2024 8:09 AM EDT) POCT Glucose 200(H) 74 - 99 mg/dL 05/25/2024 8:11 AM EDT [facility] Comment:Accuracy of a glucos e result obtained from a capillary whole blood specimen relies upon adequate, non-compromised capillary blood flow. If the capillary glucose result is not consistent with the patient's clinical signs and symptoms, glucose testing should be repeated with either an arterial or venous sample on the glucometer or sent to the main labortory for testing. Comment 05/25/2024 8:11 AM EDT [facility] Legal Researcher ID Trudi Villalobos 05/25/2024 8:11 AM EDT [facility] Device ID [id number] 05/25/2024 8:11 AM EDT [facility] Specimen Type POC Capillary 05/25/2024 8:11 AM EDT [facility] Blood Capillary blood specimen / Unknown 05/25/2024 8:09 AM EDT 05/25/2024 8:11 AM EDT us Rubén Martin MD LAB POINT OF CARE TEST DOCKED DEVICE UNSOLICITED RESULTS Final Result Performing Organization Address City/State/[facility] Co de Phone Number [facility] [address] [place] [address] * (ABNORMAL) POCT glucose meter (05/25/2024 3:31 AM EDT) [facility] POCT Glucose 157(H) 74 - 99 mg/dL 05/25/2024 3:32 AM EDT [facility] Comment:Accuracy of a glucos e result obtained from a capillary whole blood specimen relies upon adequate, non-compromised capillary blood flow. If the capillary glucose result is not consistent with the patient's clinical signs and symptoms, glucose testing should be repeated with either an arterial or venous sample on the glucometer or sent to the main labortory for testing. Comment 05/25/2024 3:32 AM EDT [facility] Legal Researcher ID Emmanuelle Valle 05/25/2024 3:32 AM EDT [facility] Device ID [id number] 05/25/2024 3:32 AM EDT [facility] Specimen Type POC Capillary 05/25/2024 3:32 AM EDT [facility] Blood Capillary blood specimen / Unknown 05/25/2024 3:31 AM EDT 05/25/2024 3:32 AM EDT us Rubén Martin MD LAB POINT OF CARE TEST DOCKED DEVICE UNSOLICITED RESULTS Final Result [facility] [address] [place] [address] * XR Chest 1 View (05/25/2024 3:09 AM EDT) Anatomical Region Laterality Modality Chest Digital Radiogra phy Impressions 05/25/2024 9:12 AM EDT Interval increased right-sided pleural effusion. CRITICAL RESULT: No. COMMUNICATION: Per this written report. By electronically signing this report, I, the attending physician, attest that I have personally reviewed the images/data for the above examination(s) and agree with the final edited report. Drafted by Go Alvarez MD on 05/25/2024 8:18 AM Final report signed by Moe Osei MD on 05/25/2024 9:12 AM Narrative 05/25/2024 9:12 AM EDT CLINICAL INDICATION: eval of lung kimball TECHNIQUE: XR CHEST 1 VIEW COMPARISON: May 23, 2024 FINDINGS: Stable cardiac mediastinal silhouette. Persistent bilateral interstitial opacities, with increasing pleural effusion on the right. No pneumothorax. Procedure Note oMe Osei MD - 05/25/2024 CLINICAL INDICATION: eval of lung kimball TECHNIQUE: XR CHEST 1 VIEW COMPARISON: May 23, 2024 FINDINGS: Stable cardiac mediastinal silhouette. Persistent bilateral interstitialopacities, with increasing pleural effusion on the right. Nopneumothorax. IMPRESSION: Interval increased right-sided pleural effusion. CRITICAL RESULT: No. COMMUNICATION: Per this written report. By electronically signing this report, I, the attending physician, attestthat I have personally reviewed the images/data for the aboveexamination(s) and agree with the final edited report. Drafted by Go Alvarez MD on 05/25/2024 8:18 AM Final report signed by Moe Osei MD on 05/25/2024 9:12 AM us Mihaela Patrick [facility] XR PROCEDURES Final R esult * Magnesium, Plasma (05/25/2024 12:25 AM EDT) Magnesium, Plasma 2.1 1.9 - 2.4 mg/dL 05/25/2024 1:09 AM EDT [facility] Blood Venous blood specimen / Unknown Venipuncture / Unknown 05/25/2024 12:25 AM EDT 05/25/2024 12:33 AM EDT Mihaela N Bowling [facility] BLOOD ORDERABLES Taniya l Result Performing Organization Address City/[facility]/ZIP Co de Phone Number [facility] [address] [place] [address] * (ABNORMAL) Phosphorus, Plasma (05/25/2024 12:25 AM EDT) Phosphorus, Plasma 5.9(H) 2.5 - 4.5 mg/dL 05/25/2024 1:09 AM EDT [facility] Blood Venous blood specimen / Unknown Venipuncture / Unknown 05/25/2024 12:25 AM EDT 05/25/2024 12:33 AM EDT Mihaela N Moneyspyderlisa [facility] BLOOD ORDERABLES Taniya l Result Performing Organization Address City/[facility] Co de Phone Number [facility] [address] [place] [address] * (ABNORMAL) Basic metabolic panel (05/25/2024 12:25 AM EDT) Glucose, Plasma 223(H) 74 - 99 mg/dL 05/25/2024 1:09 AM EDT [facility] BUN, Plasma 108(H) 8 - 23 mg/dL 05/25/2024 1:09 AM EDT [facility] Creatinine, Plasma 2.44(H) 0.60 - 1.10 mg/dL 05/25/2024 1:09 AM EDT [facility] BUN/Creatinine Ratio 44 05/25/2024 1:09 AM EDT [facility] Sodium, Plasma 140 136 - 145 mmol/L 05/25/2024 1:09 AM EDT [facility] Potassium, Plasma 4.6 3.6 - 4.9 mmol/L 05/25/2024 1:09 AM EDT [facility] Chloride, Plasma 103 97 - 107 mmol/L 05/25/2024 1:09 AM EDT [facility] CO2, Plasma 22 22 - 29 mmol/L 05/25/2024 1:09 AM EDT [facility] Anion Gap 15 6 - 16 mmol/L 05/25/2024 1:09 AM EDT [facility] Total Calcium, Plasma 8.2(L) 8.9 - 10.2 mg/dL 05/25/2024 1:09 AM EDT [facility] eGFRcr 21.7 mL/min/1.7 3m*2 05/25/2024 1:09 AM EDT [facility] Comment:Reported eGFRcr in m L/min/1.73m2 is based the CKD-EPI 2020 equation that does not use a race coefficient. Blood Venous blood specimen / Unknown Venipuncture / Unknown 05/25/2024 12:25 AM EDT 05/25/2024 12:33 AM EDT us Piter Burns MD LAB BLOOD ORDERABLES Final Re sult [facility] [address] [place] [address] * (ABNORMAL) CBC (05/25/2024 12:25 AM EDT) WBC Count 14.10(H) 3.70 - 10.30 10*3/uL LAB HEMATOLOGY METHOD 05/25/2024 12:45 AM EDT [facility] RBC Count 3.38(L) 3.90 - 5.20 10*6/uL LAB HEMATOLOGY METHOD 05/25/2024 12:45 AM EDT [facility] HGB 8.7(L) 11.2 - 15.7 g/dL LAB HEMATOLOGY METHOD 05/25/2024 12:45 AM EDT [facility] HCT 28.4(L) 34.0 - 45.0 % LAB HEMATOLOGY METHOD 05/25/2024 12:45 AM EDT [facility] Platelet Count 179 155 - 369 10*3/uL LAB HEMATOLOGY METHOD 05/25/2024 12:45 AM EDT [facility] MCV 84 79 - 98 fL LAB HEMATOLOGY METHOD 05/25/2024 12:45 AM EDT [facility] MCH 25.7(L) 26.0 - 32.0 pg LAB HEMATOLOGY METHOD 05/25/2024 12:45 AM EDT [facility] MCHC 30.6(L) 30.7 - 35.5 g/dL LAB HEMATOLOGY METHOD 05/25/2024 12:45 AM EDT [facility] RDW 17.6(H) 11.5 - 14.5 % LAB HEMATOLOGY METHOD 05/25/2024 12:45 AM EDT [facility] MPV 10.2 8.8 - 12.5 fL LAB HEMATOLOGY METHOD 05/25/2024 12:45 AM EDT [facility] nRBC 0.0 <=0.0 per 100 WBCs LAB HEMATOLOGY METHOD 05/25/2024 12:45 AM EDT [facility] Blood Venous blood specimen / Unknown Venipuncture / Unknown 05/25/2024 12:25 AM EDT 05/25/2024 12:33 AM EDT us Piter Burns MD LAB BLOOD ORDERABLES Final Re sult [facility] [address] [place] [address] * (ABNORMAL) POCT glucose meter (05/24/2024 9:20 PM EDT) POCT Glucose 365(H) 74 - 99 mg/dL 05/24/2024 9:21 PM EDT [facility] Comment:Accuracy of a glucos e result obtained from a capillary whole blood specimen relies upon adequate, non-compromised capillary blood flow. If the capillary glucose result is not consistent with the patient's clinical signs and symptoms, glucose testing should be repeated with either an arterial or venous sample on the glucometer or sent to the main labortory for testing. Comment 05/24/2024 9:21 PM EDT [facility] Legal Researcher ID Emmanuelle Valle Marine 05/24/2024 9:21 PM EDT [facility] Device ID [id number] 05/24/2024 9:21 PM EDT [facility] Specimen Type POC Capillary 05/24/2024 9:21 PM EDT [facility] Blood Capillary blood specimen / Unknown 05/24/2024 9:20 PM EDT 05/24/2024 9:21 PM EDT Rubén Martin MD LAB POINT OF CARE TEST DOCKED DEVICE UNSOLICITED RESULTS Final Result Performing Organization Address City/[facility]/ZIP Co de Phone Number [facility] [address] [place] [address] * (ABNORMAL) POCT glucose meter (05/24/2024 6:27 PM EDT) POCT Glucose 350(H) 74 - 99 mg/dL 05/24/2024 6:29 PM EDT [facility] Comment:Accuracy of a glucos e result obtained from a capillary whole blood specimen relies upon adequate, non-compromised capillary blood flow. If the capillary glucose result is not consistent with the patient's clinical signs and symptoms, glucose testing should be repeated with either an arterial or venous sample on the glucometer or sent to the main labortory for testing. Comment 05/24/2024 6:29 PM EDT [facility] Legal Researcher ID Bernie Amato 05/24/2024 6:29 PM EDT [facility] Device ID [id number] 05/24/2024 6:29 PM EDT [facility] Specimen Type POC Capillary 05/24/2024 6:29 PM EDT [facility] Blood Capillary blood specimen / Unknown 05/24/2024 6:27 PM EDT 05/24/2024 6:29 PM EDT Rubén Martin MD LAB POINT OF CARE TEST DOCKED DEVICE UNSOLICITED RESULTS Final Result [facility] [address] [place] [address] * Magnesium (05/24/2024 11:42 AM EDT) Magnesium, Plasma 1.9 1.9 - 2.4 mg/dL 05/24/2024 12:41 PM EDT [facility] Blood Venous blood specimen / Unknown Venipuncture / Unknown 05/24/2024 11:42 AM EDT 05/24/2024 12:06 PM EDT Mihaela Jarvis Patrick [facility] BLOOD ORDERABLES Taniya l Result Performing Organization Address [facility] [facility]/ZIP Co de Phone Number [facility] [address] [place] [address] * (ABNORMAL) Phosphorus (05/24/2024 11:42 AM EDT) Phosphorus, Plasma 6.5(H) 2.5 - 4.5 mg/dL 05/24/2024 12:41 PM EDT [facility] Blood Venous blood specimen / Unknown Venipuncture / Unknown 05/24/2024 11:42 AM EDT 05/24/2024 12:06 PM EDT Mihaela N Darnell GRIPS LAB BLOOD ORDERABLES Taniya l Result Performing Organization Address [facility] Co de Phone Number [facility] [address] [place] [address] * (ABNORMAL) Basic metabolic panel (05/24/2024 11:42 AM EDT) Glucose, Plasma 223(H) 74 - 99 mg/dL 05/24/2024 12:41 PM EDT [facility] BUN, Plasma 104(H) 8 - 23 mg/dL 05/24/2024 12:41 PM EDT [facility] Creatinine, Plasma 2.31(H) 0.60 - 1.10 mg/dL 05/24/2024 12:41 PM EDT [facility] BUN/Creatinine Ratio 45 05/24/2024 12:41 PM EDT [facility] Sodium, Plasma 144 136 - 145 mmol/L 05/24/2024 12:41 PM EDT [facility] Potassium, Plasma 5.5(H) 3.6 - 4.9 mmol/L 05/24/2024 12:41 PM EDT [facility] Chloride, Plasma 107 97 - 107 mmol/L 05/24/2024 12:41 PM EDT [facility] CO2, Plasma 22 22 - 29 mmol/L 05/24/2024 12:41 PM EDT [facility] Anion Gap 15 6 - 16 mmol/L 05/24/2024 12:41 PM EDT [facility] Total Calcium, Plasma 8.3(L) 8.9 - 10.2 mg/dL 05/24/2024 12:41 PM EDT [facility] eGFRcr 23.2 mL/min/1.7 3m*2 05/24/2024 12:41 PM EDT [facility] Comment:Reported eGFRcr in m L/min/1.73m2 is based the CKD-EPI 2020 equation that does not use a race coefficient. Blood Venous blood specimen / Unknown Venipuncture / Unknown 05/24/2024 11:42 AM EDT 05/24/2024 12:06 PM EDT us Mihaela Patrick GRIPS LAB BLOOD ORDERABLES Taniya suárez Result [facility] [address] [place] [address] * (ABNORMAL) CBC W/O Differential (05/24/2024 11:42 AM EDT) WBC Count 15.11(H) 3.70 - 10.30 10*3/uL LAB HEMATOLOGY METHOD 05/24/2024 12:29 PM EDT [facility] RBC Count 4.09 3.90 - 5.20 10*6/uL LAB HEMATOLOGY METHOD 05/24/2024 12:29 PM EDT [facility] HGB 10.2(L) 11.2 - 15.7 g/dL LAB HEMATOLOGY METHOD 05/24/2024 12:29 PM EDT [facility] HCT 34.8 34.0 - 45.0 % LAB HEMATOLOGY METHOD 05/24/2024 12:29 PM EDT [facility] Platelet Count 195 155 - 369 10*3/uL LAB HEMATOLOGY METHOD 05/24/2024 12:29 PM EDT [facility] MCV 85 79 - 98 fL LAB HEMATOLOGY METHOD 05/24/2024 12:29 PM EDT [facility] MCH 24.9(L) 26.0 - 32.0 pg LAB HEMATOLOGY METHOD 05/24/2024 12:29 PM EDT [facility] MCHC 29.3(L) 30.7 - 35.5 g/dL LAB HEMATOLOGY METHOD 05/24/2024 12:29 PM EDT [facility] RDW 17.5(H) 11.5 - 14.5 % LAB HEMATOLOGY METHOD 05/24/2024 12:29 PM EDT [facility] MPV 10.3 8.8 - 12.5 fL LAB HEMATOLOGY METHOD 05/24/2024 12:29 PM EDT [facility] nRBC 0.0 <=0.0 per 100 WBCs LAB HEMATOLOGY METHOD 05/24/2024 12:29 PM EDT [facility] Blood Venous blood specimen / Unknown Venipuncture / Unknown 05/24/2024 11:42 AM EDT 05/24/2024 12:17 PM EDT us Mihaela Patrick GRIPS LAB BLOOD ORDERABLES Taniya suárez Result [facility] [address] [place] [address] * (ABNORMAL) POCT glucose meter (05/24/2024 11:10 AM EDT) [facility] Signature POCT Glucose 167(H) 74 - 99 mg/dL 05/24/2024 11:13 AM EDT [facility] Comment:Accuracy of a glucos e result obtained from a capillary whole blood specimen relies upon adequate, non-compromised capillary blood flow. If the capillary glucose result is not consistent with the patient's clinical signs and symptoms, glucose testing should be repeated with either an arterial or venous sample on the glucometer or sent to the main labortory for testing. Comment 05/24/2024 11:13 AM EDT [facility] Legal Researcher ID Bernie Amato 05/24/2024 11:13 AM EDT [facility] Device ID [id number] 05/24/2024 11:13 AM EDT [facility] Specimen Type POC Capillary 05/24/2024 11:13 AM EDT [facility] Blood Capillary blood specimen / Unknown 05/24/2024 11:10 AM EDT 05/24/2024 11:13 AM EDT Rubén Martin MD LAB POINT OF CARE TEST DOCKED DEVICE UNSOLICITED RESULTS Final Result [facility] [address] [place] [address] * XR Hip Left 2 or 3 Views (05/24/2024 10:42 AM EDT) Anatomical Region Laterality Modality Lower Extremities, Hip Left Digital R adiography Impressions 05/24/2024 10:59 AM EDT Interval ORIF of left femoral fracture in improved alignment with no evidence of hardware failure and expected postoperative findings. CRITICAL RESULT: No. COMMUNICATION: Per this written report. Drafted by Brian Florez on 05/24/2024 10:58 AM Final report signed by Brian Florez on 05/24/2024 10:59 AM Narrative 05/24/2024 10:59 AM EDT CLINICAL INDICATION: Postop, L femur CMN TECHNIQUE: XR HIP LEFT 2 OR 3 VIEWS COMPARISON: May 23 2024 FINDINGS: Interval ORIF of intertrochanteric fracture of the left femur with intramedullary nail and femoral neck screw. Fractures in improved alignment. No evidence of hardware failure. Subcutaneous gas and gas overlying the left hip likely postsurgical. Prior ORIF of the right femur is in unchanged alignment with no evidence of loosening or failure. No newly visualized fractures. Procedure Note Brian Florez MD - 05/24/2024 CLINICAL INDICATION: Postop, L femur CMN TECHNIQUE: XR HIP LEFT 2 OR 3 VIEWS COMPARISON: May 23 2024 FINDINGS: Interval ORIF of intertrochanteric fracture of the left femur withintramedullary nail and femoral neck screw. Fractures in improvedalignment. No evidence of hardware failure. Subcutaneous gas and gasoverlying the left hip likely postsurgical. Prior ORIF of the right femuris in unchanged alignment with no evidence of loosening or failure. Nonewly visualized fractures. IMPRESSION: Interval ORIF of left femoral fracture in improved alignment with noevidence of hardware failure and expected postoperative findings. CRITICAL RESULT: No. COMMUNICATION: Per this written report. Drafted by Brian Florez on 05/24/2024 10:58 AM Final report signed by Brian Florez on 05/24/2024 10:59 AM Piter Burns MD IMG XR PROCEDURES Final Resul t * (ABNORMAL) POCT glucose meter (05/24/2024 10:10 AM EDT) POCT Glucose 179(H) 74 - 99 mg/dL 05/24/2024 10:13 AM EDT [facility] Comment:Accuracy of a glucos e result obtained from a capillary whole blood specimen relies upon adequate, non-compromised capillary blood flow. If the capillary glucose result is not consistent with the patient's clinical signs and symptoms, glucose testing should be repeated with either an arterial or venous sample on the glucometer or sent to the main labortory for testing. Comment 05/24/2024 10:13 AM EDT [facility] Legal Researcher ID Danita Sierra 05/25/19 10:13 AM EDT [facility] Device ID [id number] 05/24/2024 10:13 AM EDT [facility] Specimen Type POC Capillary 05/24/2024 10:13 AM EDT [facility] Blood Capillary blood specimen / Unknown 05/24/2024 10:10 AM EDT 05/24/2024 10:13 AM EDT Rubén Martin MD LAB POINT OF CARE TEST DOCKED DEVICE UNSOLICITED RESULTS Final Result Performing Organization Address City/[facility]/ZIP Co de Phone Number [facility] [address] [place] [address] * [place] Less than 1 Hour Intraoperative (05/24/2024 9:27 AM EDT) Narrative IMAGING - 05/24/2024 9:28 AM EDT Images were obtained for surgical purposes. See Piter Burns's surgical note in the patient's chart for the findings. us Piter Burns MD IMG FLUOROSCOPY PROCEDURES Fi nal Result IMAGING * Potassium (05/24/2024 1:21 AM EDT) Potassium, Plasma 4.8 3.6 - 4.9 mmol/L 05/24/2024 1:50 AM EDT [facility] Blood Venous blood specimen / Unknown Venipuncture / Unknown 05/24/2024 1:21 AM EDT 05/24/2024 1:28 AM EDT us Ronald HOLLY LAB BLOOD ORDERABLES Final R esult Performing Organization Address City/[facility]/[place] [address] * Blood Culture (Aerobic/Anaerobet Set) (05/24/2024 12:25 AM EDT) Culture No growth at day 5 GARRISON 05/29/2024 2:02 AM EDT [facility] Blood Venous blood specimen / Unknown Venipuncture / Unknown 05/24/2024 12:25 AM EDT 05/24/2024 1:30 AM EDT us Ronald HOLLY LAB MICROBIOLOGY - GENERAL O RDERABLES Final Result Performing Organization Address [facility] [place] [address] * (ABNORMAL) N-Terminal Probnp, Plasma (05/24/2024 12:17 AM EDT) N-Terminal, PROBNP, Plasma 1,091(H) 0 - 899 pg/mL 05/24/2024 1:04 AM EDT [facility] Blood Venous blood specimen / Unknown Venipuncture / Unknown 05/24/2024 12:17 AM EDT 05/24/2024 12:34 AM EDT us Ronald HOLLY LAB BLOOD ORDERABLES Final R esult Performing Organization Address [facility] [place] [address] * Magnesium, Plasma (05/24/2024 12:17 AM EDT) Magnesium, Plasma 2.0 1.9 - 2.4 mg/dL 05/24/2024 1:04 AM EDT [facility] Blood Venous blood specimen / Unknown Venipuncture / Unknown 05/24/2024 12:17 AM EDT 05/24/2024 12:34 AM EDT us Irene Sparks GRIPS, DNP LAB BLOOD ORDERABLES F inal Result [facility] [address] [place] [address] * (ABNORMAL) CBC W/O Differential (05/24/2024 12:17 AM EDT) Pathologist [facility] WBC Count 17.42(H) 3.70 - 10.30 10*3/uL LAB HEMATOLOGY METHOD 05/24/2024 1:05 AM EDT [facility] RBC Count 4.38 3.90 - 5.20 10*6/uL LAB HEMATOLOGY METHOD 05/24/2024 1:05 AM EDT [facility] HGB 11.2 11.2 - 15.7 g/dL LAB HEMATOLOGY METHOD 05/24/2024 1:05 AM EDT [facility] HCT 36.3 34.0 - 45.0 % LAB HEMATOLOGY METHOD 05/24/2024 1:05 AM EDT [facility] Platelet Count 212 155 - 369 10*3/uL LAB HEMATOLOGY METHOD 05/24/2024 1:05 AM EDT [facility] MCV 83 79 - 98 fL LAB HEMATOLOGY METHOD 05/24/2024 1:05 AM EDT [facility] MCH 25.6(L) 26.0 - 32.0 pg LAB HEMATOLOGY METHOD 05/24/2024 1:05 AM EDT [facility] MCHC 30.9 30.7 - 35.5 g/dL LAB HEMATOLOGY METHOD 05/24/2024 1:05 AM EDT [facility] RDW 17.5(H) 11.5 - 14.5 % LAB HEMATOLOGY METHOD 05/24/2024 1:05 AM EDT [facility] MPV 10.8 8.8 - 12.5 fL LAB HEMATOLOGY METHOD 05/24/2024 1:05 AM EDT [facility] nRBC 0.0 <=0.0 per 100 WBCs LAB HEMATOLOGY METHOD 05/24/2024 1:05 AM EDT [facility] Blood Venous blood specimen / Unknown Venipuncture / Unknown 05/24/2024 12:17 AM EDT 05/24/2024 12:38 AM EDT us Irene Sparks GRIPS, DNP LAB BLOOD ORDERABLES F inal Result [facility] [address] [place] [address] * (ABNORMAL) Basic Metabolic Panel, Plasma (05/24/2024 12:17 AM EDT) Glucose, Plasma 125(H) 74 - 99 mg/dL 05/24/2024 1:04 AM EDT [facility] BUN, Plasma 104(H) 8 - 23 mg/dL 05/24/2024 1:04 AM EDT [facility] Creatinine, Plasma 2.48(H) 0.60 - 1.10 mg/dL 05/24/2024 1:04 AM EDT [facility] BUN/Creatinine Ratio 42 05/24/2024 1:04 AM EDT [facility] Sodium, Plasma 142 136 - 145 mmol/L 05/24/2024 1:04 AM EDT [facility] Potassium, Plasma 5.8(H) 3.6 - 4.9 mmol/L 05/24/2024 1:04 AM EDT [facility] Comment:Hemolyzed, result ma y be falsely increased. Chloride, Plasma 103 97 - 107 mmol/L 05/24/2024 1:04 AM EDT [facility] CO2, Plasma 24 22 - 29 mmol/L 05/24/2024 1:04 AM EDT [facility] Anion Gap 15 6 - 16 mmol/L 05/24/2024 1:04 AM EDT [facility] Total Calcium, Plasma 9.1 8.9 - 10.2 mg/dL 05/24/2024 1:04 AM EDT [facility] eGFRcr 21.3 mL/min/1.7 3m*2 05/24/2024 1:04 AM EDT [facility] Comment:Reported eGFRcr in m L/min/1.73m2 is based the CKD-EPI 2020 equation that does not use a race coefficient. Blood Venous blood specimen / Unknown Venipuncture / Unknown 05/24/2024 12:17 AM EDT 05/24/2024 12:34 AM EDT Irene Sparks APRN, VADIM LAB BLOOD ORDERABLES F inal Result Performing Organization Address [facility]/ZIP Co de Phone Number [facility] [address] [place] [address] * (ABNORMAL) Phosphorus, Plasma (05/24/2024 12:17 AM EDT) Phosphorus, Plasma 5.4(H) 2.5 - 4.5 mg/dL 05/24/2024 1:[address] [facility] Blood Venous blood specimen / Unknown Venipuncture / Unknown 05/24/2024 12:17 AM EDT 05/24/2024 12:34 AM EDT us Irene Sparks APRN, VADIM LAB BLOOD ORDERABLES F inal Result Performing Organization Address City/[facility] Co de Phone Number [facility] [address] [place] [address] * (ABNORMAL) Prothrombin Time/INR (05/24/2024 12:17 AM EDT) Prothrombin Time 18.7(H) 12.0 - 14.3 sec LAB COAGULATION METHOD 05/24/2024 12:57 AM EDT [facility] INR 1.5(H) 0.9 - 1.1 LAB COAGULATION METHOD 05/24/2024 12:57 AM EDT [facility] Blood Venous blood specimen / Unknown Venipuncture / Unknown 05/24/2024 12:17 AM EDT 05/24/2024 12:34 AM EDT Narrative [facility] - 05/24/2024 12:57 AM EDT OPTIMAL INR RANGES FOR PATIENT ON ORAL ANTICOAGULANT THERAPY Prevention of venous thromboembolism INR 2.0 to 3.0 In patients with heart disease: Atrial fibrillation INR 2.0 to 3.0 Valvular heart disease INR 2.0 to 3.0 Tissue heart valves INR 2.0 to 3.0 Mechanical prosthetic valves INR 2.5 to 3.5 Prevention of recurrent OH INR 2.5 to 3.5 us Bing Byers GRIPS LAB BLOOD ORDERABLES Final Result [facility] [address] [place] [address] * XR Chest 1 View (05/23/2024 11:44 PM EDT) Anatomical Region Laterality Modality Chest Digital Radiogra phy Impressions 05/23/2024 11:52 PM EDT No interval change. CRITICAL RESULT: No. COMMUNICATION: Per this written report. Drafted by Melinda Duffy MD on 05/23/2024 11:51 PM Final report signed by Melinda Duffy MD on 05/23/2024 11:52 PM Narrative 05/23/2024 11:52 PM EDT CLINICAL INDICATION: Worsening hypoxia, febrile, concern for Pneumonia TECHNIQUE: XR CHEST 1 VIEW COMPARISON: 05/23/2024 FINDINGS: Patchy opacities in the bilateral lungs not significantly changed from comparison. No new consolidation. No pneumothorax. Stable cardiac silhouette. Procedure Note Melinda Duffy MD - 05/23/2024 CLINICAL INDICATION: Worsening hypoxia, febrile, concern for Pneumonia TECHNIQUE: XR CHEST 1 VIEW COMPARISON: 05/23/2024 FINDINGS: Patchy opacities in the bilateral lungs not significantly changed fromcomparison. No new consolidation. No pneumothorax. Stable cardiacsilhouette. IMPRESSION: No interval change. CRITICAL RESULT: No. COMMUNICATION: Per this written report. Drafted by Melinda Duffy MD on 05/23/2024 11:51 PM Final report signed by Melinda Duffy MD on 05/23/2024 11:52 PM us Ronald HOLLY IMG XR PROCEDURES Final Resu lt * (ABNORMAL) Anti Xa Level Low Molecular Weight (05/23/2024 2:25 PM EDT) Pathologist [facility] Anti Xa Level Low Molecular Weight Heparin >2.00(HH) <2.00 IU/mL LAB COAGULATION METHOD 05/23/2024 3:24 PM EDT [facility] Blood Venous blood specimen / Unknown Venipuncture / Unknown 05/23/2024 2:25 PM EDT 05/23/2024 2:34 PM EDT Narrative [facility] - 05/23/2024 3:24 PM EDT Therapeutic Range: LMWH enoxaparin 1mg/kg/dose, 12hrs - peak (3-5 hours after dose): 0.5 - 1.0 IU/mL LMWH enoxaparin 1.5mg/kg/dose, 24hrs - peak (3-5 hours after dose): 1.0 - 2.0 IU/mL LMWH enoxaparin prophylaxis: Not established us Mihaela Patrick GRIPS LAB BLOOD ORDERABLES Taniya suárez Result [facility] [address] [place] [address] * (ABNORMAL) Renal function panel (05/23/2024 1:24 PM EDT) [facility] Glucose, Plasma 128(H) 74 - 99 mg/dL 05/23/2024 2:19 PM EDT [facility] BUN, Plasma 105(H) 8 - 23 mg/dL 05/23/2024 2:19 PM EDT [facility] Creatinine, Plasma 2.68(H) 0.60 - 1.10 mg/dL 05/23/2024 2:19 PM EDT [facility] BUN/Creatinine Ratio 39 05/23/2024 2:19 PM EDT [facility] Sodium, Plasma 142 136 - 145 mmol/L 05/23/2024 2:19 PM EDT [facility] Potassium, Plasma 5.1(H) 3.6 - 4.9 mmol/L 05/23/2024 2:19 PM EDT [facility] Chloride, Plasma 105 97 - 107 mmol/L 05/23/2024 2:19 PM EDT [facility] CO2, Plasma 25 22 - 29 mmol/L 05/23/2024 2:19 PM EDT [facility] Anion Gap 12 6 - 16 mmol/L 05/23/2024 2:19 PM EDT [facility] Total Calcium, Plasma 8.9 8.9 - 10.2 mg/dL 05/23/2024 2:19 PM EDT [facility] Phosphorus, Plasma 5.9(H) 2.5 - 4.5 mg/dL 05/23/2024 2:19 PM EDT [facility] Albumin, Plasma 3.1(L) 3.5 - 5.2 g/dL 05/23/2024 2:19 PM EDT [facility] eGFRcr 19.4 mL/min/1.7 3m*2 05/23/2024 2:19 PM EDT [facility] Comment:Reported eGFRcr in m L/min/1.73m2 is based the CKD-EPI 2020 equation that does not use a race coefficient. Blood Venous blood specimen / Unknown Venipuncture / Unknown 05/23/2024 1:24 PM EDT 05/23/2024 1:42 PM EDT us Irene Sparks APRN, DNP LAB BLOOD ORDERABLES F inal Result [facility] [address] [place] [address] * (ABNORMAL) POCT arterial blood gas gem (05/23/2024 1:17 PM EDT) pH, Arterial 7.41 7.31 - 7.42 05/23/2024 1:19 PM EDT [facility] pCO2, Arterial 45 35 - 48 mm Hg 05/23/2024 1:19 PM EDT [facility] pO2, Arterial 58(LL) >80 mm Hg 05/23/2024 1:19 PM EDT [facility] SO2, Arterial 92(L) 94 - 98 % 05/23/2024 1:19 PM EDT [facility] FIO2 32.0 % 05/23/2024 1:19 PM EDT [facility] Base Excess, Arterial 3.4(H) -2 - 3 mmol/L 05/23/2024 1:19 PM EDT [facility] HCO3, Arterial 28.5(H) 22 - 26 mmol/L 05/23/2024 1:19 PM EDT [facility] Total Hemoglobin, Arterial, Whole Blood 9.3(L) 11.2 - 15.7 g/dL 05/23/2024 1:19 PM EDT [facility] Hematocrit, Arterial 28.0(L) 34.0 - 45.0 % 05/23/2024 1:19 PM EDT [facility] Sodium, Arterial 136 136 - 145 mmol/L 05/23/2024 1:19 PM EDT [facility] Potassium, Arterial 4.7 3.6 - 4.9 mmol/L 05/23/2024 1:19 PM EDT [facility] Chloride, Whole Blood 107 97 - 107 mmol/L 05/23/2024 1:19 PM EDT [facility] Glucose, Arterial 128(H) 74 - 99 mg/dL 05/23/2024 1:19 PM EDT [facility] Ionized Calcium, Arterial 5.0 4.6 - 5.1 mg/dL 05/23/2024 1:19 PM EDT [facility] Lactate, Arterial 0.7 0.5 - 1.6 mmol/L 05/23/2024 1:19 PM EDT [facility] Body Temperature 37.2 Celsius 05/23/2024 1:19 PM EDT [facility] pH, Temp Corrected, Arterial 7.41 7.31 - 7.42 05/23/2024 1:19 PM EDT [facility] pCO2, Temp Corrected, Arterial 45 35 - 48 mm Hg 05/23/2024 1:19 PM EDT [facility] pO2, Temp Corrected, Arterial 59(LL) >80 mm Hg 05/23/2024 1:19 PM EDT [facility] Legal Researcher ID Booker Marquez 05/23/2024 1:19 PM EDT [facility] Acknowledged, Notified By AKIN 05/23/2024 1:19 PM EDT [facility] Critical Notify Time 1318 05/23/2024 1:19 PM EDT [facility] Critical Readback Y 05/23/2024 1:19 PM EDT [facility] Blood, Arterial Whole blood specimen / Unknown 05/23/2024 1:17 PM EDT 05/23/2024 1:19 PM EDT Result Dorian Martin MD LAB POINT OF CARE TEST DOCKED DEVICE UNSOLICITED RESULTS Final Result Performing Organization Address [facility] Co de Phone Number [facility] [address] [place] [address] * Cale auris Surveillance Culture (05/23/2024 12:00 PM EDT) Culture No growth 05/26/2024 6:[address] [facility] Swab (Axilla and Groin) Non-blood Collection / Unknown 05/23/2024 12:00 PM EDT 05/23/2024 12:08 PM EDT us Rubén Martin MD LAB MICROBIOLOGY - GENERAL ORDERABLES Final Result Performing Organization Address [facility] Co de Phone Number [facility] [address] [place] [address] * (ABNORMAL) Cale auris Surveillance by PCR (05/23/2024 12:00 PM EDT) Cale auris PCR Result Invalid(A ) Not Detected 05/24/2024 11:37 AM EDT [facility] Swab (Axilla and Groin) Non-blood Collection / Unknown 05/23/2024 12:00 PM EDT 05/23/2024 12:08 PM EDT Narrative [facility] - 05/24/2024 11:37 AM EDT This PCR assay was developed and its performance characteristics determined by [facility] as appropriate for clinical purposes. This assay has not been cleared or approved by the FDA, but is performed in a CLIA regulated laboratory that is qualified to perform high-complexity testing. Result Dorian Mratin MD LAB MICROBIOLOGY - GENERAL ORDERABLES Final Result Performing Organization Address [facility] Co de Phone Number [facility] [address] [place] [address] * Multi Drug Resistance Test (05/23/2024 12:00 PM EDT) Culture No Multi Drug Resistant Organisms Isolated 05/24/2024 11:44 AM EDT [facility] Swab (Nares and Andreia Rectal) Non-blood Collection / Unknown 05/23/2024 12:00 PM EDT 05/23/2024 12:08 PM EDT us Rubén Martin MD LAB MICROBIOLOGY - GENERAL ORDERABLES Final Result [facility] [address] [place] [address] * ECHO, ADULT TRANSTHORACIC COMPLETE (05/23/2024 11:53 AM EDT) Height 162.6 SAW ISCV Weight 74.8 SAW ISCV BSA 1.80 m2 SAW ISCV LVIDd 45 mm SAW ISCV LVIDs 27 mm SAW ISCV IVSd 13 mm SAW ISCV LVPWd 14 mm SAW ISCV LV RWT 0.60 mm SAW ISCV MV E Vmax 94.3 cm/s SAW ISCV MV A Vmax 124.0 cm/s SAW ISCV MV E/A 0.8 cm/s SAW ISCV LV Lat e' Velocity 8.2 cm/s SAW ISCV LV Sept e' Jem 3.5 cm/s SAW ISCV Lat E/e' 11.5 SAW ISCV Sep E/e' 26.9 SAW ISCV Avg E/e' 19.2 SAW ISCV Anatomical Region Laterality Modality Echocardiography Narrative 05/23/2024 12:23 PM EDT Left Ventricle: The left ventricle is normal size. There is concentric hypertrophy. The left ventricular systolic function is normal. Biplane EF 66% The left ventricular filling pressure is elevated. Right Ventricle: The right ventricle is normal in size. The right ventricular systolic function is normal. Pericardium: No pericardial effusion. There is no recent study available for direct [id number] comparison. Left Ventricle The left ventricle is normal size. There is concentric hypertrophy. The left ventricular systolic function is normal. Biplane EF 66% The left ventricular filling pressure is elevated. The left ventricular wall motion is normal. Right Ventricle The right ventricle is normal in size. The right ventricular systolic function is normal. Unable to estimate the right ventricular systolic pressure (RVSP) due to inadequate TR signal. Left Atrium The left atrial size is normal. The interatrial septum is intact with no evidence for an atrial septal defect. Right Atrium The right atrial size is normal. IVC/SVC The IVC was not well visualized, and an assumed pressure of 8mmHg was used for calculations. Mitral Valve The mitral valve is grossly normal. The mitral valve chordae are thickened and/or calcified. There is no mitral regurgitation. There is no mitral stenosis. Tricuspid Valve The tricuspid valve is grossly normal in appearance. There is trace tricuspid regurgitation. There is no tricuspid stenosis. Aortic Valve The aortic valve appears grossly normal. The cusp(s) are thickened. There is no valvular regurgitation. There is no hemodynamically significant valvular aortic stenosis. Pulmonic Valve The pulmonic valve was not well visualized. There is no pulmonic regurgitation. There is no pulmonic stenosis. Pericardium No pericardial effusion. Great Vessels The aortic root is normal in size. The main pulmonary artery is not well visualized. Study Details A complete transthoracic echocardiogram using two-dimensional (2D), m-mode, color and spectral flow Doppler imaging was performed. The study was technically difficult. The study was technically difficult due to patient's clinical status and body habitus. Height: 162.6 cm. Weight: 74.8 kg. BSA: 1.80 m2. Mechanical fall, femoral fx,CKD, AF on AC, COPD, CHF, cirrhosis Study Recommendation There is no recent study available for direct [id number] comparison. us Bing Byers APRN CV ECHO PROCEDURES Final R esult * (ABNORMAL) POCT glucose meter (05/23/2024 11:08 AM EDT) POCT Glucose 147(H) 74 - 99 mg/dL 05/23/2024 11:10 AM EDT [facility] Comment:Accuracy of a glucos e result obtained from a capillary whole blood specimen relies upon adequate, non-compromised capillary blood flow. If the capillary glucose result is not consistent with the patient's clinical signs and symptoms, glucose testing should be repeated with either an arterial or venous sample on the glucometer or sent to the main labortory for testing. Comment 05/23/2024 11:10 AM EDT [facility] Legal Researcher ID Miriam Jackson 05/23/2024 11:10 AM EDT [facility] Device ID [id number] 05/23/2024 11:10 AM EDT [facility] Specimen Type POC Capillary 05/23/2024 11:10 AM EDT [facility] Blood Capillary blood specimen / Unknown 05/23/2024 11:08 AM EDT 05/23/2024 11:10 AM EDT Rubén Martin MD LAB POINT OF CARE TEST DOCKED DEVICE UNSOLICITED RESULTS Final Result [facility] [address] [id number] * (ABNORMAL) Comprehensive metabolic panel (05/23/2024 10:56 AM EDT) Glucose, Plasma 141(H) 74 - 99 mg/dL 05/23/2024 11:18 AM EDT [facility] BUN, Plasma 104(H) 8 - 23 mg/dL 05/23/2024 11:18 AM EDT [facility] Creatinine, Plasma 2.82(H) 0.60 - 1.10 mg/dL 05/23/2024 11:18 AM EDT [facility] BUN/Creatinine Ratio 37 05/23/2024 11:18 AM EDT [facility] Sodium, Plasma 142 136 - 145 mmol/L 05/23/2024 11:18 AM EDT [facility] Potassium, Plasma 5.1(H) 3.6 - 4.9 mmol/L 05/23/2024 11:18 AM EDT [facility] Chloride, Plasma 103 97 - 107 mmol/L 05/23/2024 11:18 AM EDT [facility] CO2, Plasma 26 22 - 29 mmol/L 05/23/2024 11:18 AM EDT [facility] Anion Gap 13 6 - 16 mmol/L 05/23/2024 11:18 AM EDT [facility] Total Calcium, Plasma 9.1 8.9 - 10.2 mg/dL 05/23/2024 11:18 AM EDT [facility] Total Protein 6.7 6.3 - 7.9 g/dL 05/23/2024 11:18 AM EDT [facility] Albumin, Plasma 3.2(L) 3.5 - 5.2 g/dL 05/23/2024 11:18 AM EDT [facility] AST, Plasma 44(H) 10 - 35 U/L 05/23/2024 11:18 AM EDT [facility] ALT, Plasma 30 10 - 35 U/L 05/23/2024 11:18 AM EDT [facility] Alkaline Phosphatase, Plasma 158(H) 46 - 142 U/L 05/23/2024 11:18 AM EDT [facility] Total Bilirubin, Plasma 0.4 0.2 - 1.1 mg/dL 05/23/2024 11:18 AM EDT [facility] eGFRcr 18.3 mL/min/1.7 3m*2 05/23/2024 11:18 AM EDT [facility] Comment:Reported eGFRcr in m L/min/1.73m2 is based the CKD-EPI 2020 equation that does not use a race coefficient. Blood Venous blood specimen / Unknown Venipuncture / Unknown 05/23/2024 10:56 AM EDT 05/23/2024 10:59 AM EDT us Bingbrandt Byers [facility] BLOOD ORDERABLES Final Result [facility] [address] [place] [address] * Ammonia, Plasma (05/23/2024 10:56 AM EDT) Ammonia 18 11 - 51 umol/L 05/23/2024 11:31 AM EDT [facility] Comment:Improper specimen whittaker ndling may falsely increase results. Blood Venous blood specimen / Unknown Venipuncture / Unknown 05/23/2024 10:56 AM EDT 05/23/2024 11:05 AM EDT us Bing N Byers [facility] BLOOD ORDERABLES Final Result [facility] [address] [place] [address] * (ABNORMAL) Blood gas, venous (05/23/2024 10:56 AM EDT) pH, Venous 7.29(L) 7.32 - 7.43 LAB HEMATOLOGY METHOD 05/23/2024 11:01 AM EDT [facility] pCO2, Venous 59(H) 37 - 52 mmHg LAB HEMATOLOGY METHOD 05/23/2024 11:01 AM EDT [facility] pO2, Venous 40 25 - 40 mmHg LAB HEMATOLOGY METHOD 05/23/2024 11:01 AM EDT [facility] SO2, Measured, Venous 69 65 - 80 % LAB HEMATOLOGY METHOD 05/23/2024 11:01 AM EDT [facility] Base Excess, Venous 0.7 -2.0 - 3.0 mmol/L LAB HEMATOLOGY METHOD 05/23/2024 11:01 AM EDT [facility] Bicarbonate, Calculated, Venous 28(H) 22 - 26 mmol/L LAB HEMATOLOGY METHOD 05/23/2024 11:01 AM EDT [facility] Hematocrit, Whole Blood 31.1(L) 34.0 - 45.0 % LAB HEMATOLOGY METHOD 05/23/2024 11:01 AM EDT [facility] Sodium, Whole Blood 142 136 - 145 mmol/L LAB HEMATOLOGY METHOD 05/23/2024 11:01 AM EDT [facility] Potassium, Whole Blood 4.8 3.6 - 4.9 mmol/L LAB HEMATOLOGY METHOD 05/23/2024 11:01 AM EDT [facility] Chloride, Whole Blood 105 97 - 107 mmol/L LAB HEMATOLOGY METHOD 05/23/2024 11:01 AM EDT [facility] Glucose, Whole Blood 134(H) 74 - 99 mg/dL LAB HEMATOLOGY METHOD 05/23/2024 11:01 AM EDT [facility] Lactate, Venous, Whole Blood 0.7 0.5 - 2.2 mmol/L LAB HEMATOLOGY METHOD 05/23/2024 11:01 AM EDT [facility] Ionized Calcium, Whole Blood 4.8 4.6 - 5.1 mg/dL LAB HEMATOLOGY METHOD 05/23/2024 11:01 AM EDT [facility] Blood Venous blood specimen / Unknown Venipuncture / Unknown 05/23/2024 10:56 AM EDT 05/23/2024 10:59 AM EDT us Rubén Martin MD LAB BLOOD ORDERABLES Final Result [facility] [address] [place] [address] * XR Chest 1 View (05/23/2024 8:00 AM EDT) Anatomical Region Laterality Modality Chest Digital Radiogra phy Impressions 05/23/2024 8:37 AM EDT Left internal trochanteric femur fracture with normal position of the femoral head within the acetabulum. No other fractures are seen within the left lower extremity from the hip through the knee CRITICAL RESULT: No. COMMUNICATION: Per this written report. Drafted by Bernice Guajardo MD on 05/23/2024 8:01 AM Final report signed by Bernice Guajardo MD on 05/23/2024 8:37 AM Narrative 05/23/2024 8:37 AM EDT CLINICAL INDICATION: preop TECHNIQUE: XR CHEST 1 VIEW, XR KNEE LEFT 3 VIEWS, XR FEMUR LEFT 2+ VIEWS, XR HIP LEFT 2 OR 3 VIEWS COMPARISON: Chest radiograph from December 12, 2019 FINDINGS: AP view the chest demonstrates similar patchy areas of opacification in the lateral aspect of the right upper lobe and the lateral aspect of the left lung apex compared to the previous exam. There is no new focal opacification. There is no visualized pleural fluid collection or pneumothorax. The cardiac silhouette is stable. An event recorder is positioned over the left hemithorax. No acute bone abnormalities appreciated. AP view the pelvis and 2 views of the left hip are compared to the radiograph obtained approximately 30 minutes earlier. There is redemonstration of normal position of the femoral head within the acetabulum. There is redemonstration of intertrochanteric nondisplaced fracture. AP and lateral views of the left femur redemonstrate the intertrochanteric femur fracture. The femur is otherwise intact. There is vascular calcification. 3 views of the left knee do not demonstrate acute osseous or articular abnormality. There is chondrocalcinosis. There is normal position of the patella. There is no suprapatellar joint effusion. Procedure Note Bernice Guajardo MD - 05/23/2024 CLINICAL INDICATION: preop TECHNIQUE: XR CHEST 1 VIEW, XR KNEE LEFT 3 VIEWS, XR FEMUR LEFT 2+ VIEWS, XR HIP LEFT2 OR 3 VIEWS COMPARISON: Chest radiograph from December 12, 2019 FINDINGS: AP view the chest demonstrates similar patchy areas of opacification inthe lateral aspect of the right upper lobe and the lateral aspect of theleft lung apex compared to the previous exam. There is no new focalopacification. There is no visualized pleural fluid collection orpneumothorax. The cardiac silhouette is stable. An event recorder ispositioned over the left hemithorax. No acute bone abnormalitiesappreciated. AP view the pelvis and 2 views of the left hip are compared to theradiograph obtained approximately 30 minutes earlier. There isredemonstration of normal position of the femoral head within theacetabulum. There is redemonstration of intertrochanteric nondisplacedfracture. AP and lateral views of the left femur redemonstrate the intertrochantericfemur fracture. The femur is otherwise intact. There is vascularcalcification. 3 views of the left knee do not demonstrate acute osseous or articularabnormality. There is chondrocalcinosis. There is normal position of thepatella. There is no suprapatellar joint effusion. IMPRESSION: Left internal trochanteric femur fracture with normal position of thefemoral head within the acetabulum. No other fractures are seen within the left lower extremity from the hipthrough the knee CRITICAL RESULT: No. COMMUNICATION: Per this written report. Drafted by Bernice Guajardo MD on 05/23/2024 8:01 AM Final report signed by Bernice Guajardo MD on 05/23/2024 8:37 AM us Piter Burns MD IMG XR PROCEDURES Final Resul t * XR Knee Left 3 Views (05/23/2024 8:00 AM EDT) Anatomical Region Laterality Modality Lower Extremities, Knee Left Digital Radiography Impressions 05/23/2024 8:37 AM EDT Left internal trochanteric femur fracture with normal position of the femoral head within the acetabulum. No other fractures are seen within the left lower extremity from the hip through the knee CRITICAL RESULT: No. COMMUNICATION: Per this written report. Drafted by Bernice Guajardo MD on 05/23/2024 8:01 AM Final report signed by Bernice Guajardo MD on 05/23/2024 8:37 AM Narrative 05/23/2024 8:37 AM EDT CLINICAL INDICATION: preop TECHNIQUE: XR CHEST 1 VIEW, XR KNEE LEFT 3 VIEWS, XR FEMUR LEFT 2+ VIEWS, XR HIP LEFT 2 OR 3 VIEWS COMPARISON: Chest radiograph from December 12, 2019 FINDINGS: AP view the chest demonstrates similar patchy areas of opacification in the lateral aspect of the right upper lobe and the lateral aspect of the left lung apex compared to the previous exam. There is no new focal opacification. There is no visualized pleural fluid collection or pneumothorax. The cardiac silhouette is stable. An event recorder is positioned over the left hemithorax. No acute bone abnormalities appreciated. AP view the pelvis and 2 views of the left hip are compared to the radiograph obtained approximately 30 minutes earlier. There is redemonstration of normal position of the femoral head within the acetabulum. There is redemonstration of intertrochanteric nondisplaced fracture. AP and lateral views of the left femur redemonstrate the intertrochanteric femur fracture. The femur is otherwise intact. There is vascular calcification. 3 views of the left knee do not demonstrate acute osseous or articular abnormality. There is chondrocalcinosis. There is normal position of the patella. There is no suprapatellar joint effusion. Procedure Note Bernice Guajardo MD - 05/23/2024 CLINICAL INDICATION: preop TECHNIQUE: XR CHEST 1 VIEW, XR KNEE LEFT 3 VIEWS, XR FEMUR LEFT 2+ VIEWS, XR HIP LEFT2 OR 3 VIEWS COMPARISON: Chest radiograph from December 12, 2019 FINDINGS: AP view the chest demonstrates similar patchy areas of opacification inthe lateral aspect of the right upper lobe and the lateral aspect of theleft lung apex compared to the previous exam. There is no new focalopacification. There is no visualized pleural fluid collection orpneumothorax. The cardiac silhouette is stable. An event recorder ispositioned over the left hemithorax. No acute bone abnormalitiesappreciated. AP view the pelvis and 2 views of the left hip are compared to theradiograph obtained approximately 30 minutes earlier. There isredemonstration of normal position of the femoral head within theacetabulum. There is redemonstration of intertrochanteric nondisplacedfracture. AP and lateral views of the left femur redemonstrate the intertrochantericfemur fracture. The femur is otherwise intact. There is vascularcalcification. 3 views of the left knee do not demonstrate acute osseous or articularabnormality. There is chondrocalcinosis. There is normal position of thepatella. There is no suprapatellar joint effusion. IMPRESSION: Left internal trochanteric femur fracture with normal position of thefemoral head within the acetabulum. No other fractures are seen within the left lower extremity from the hipthrough the knee CRITICAL RESULT: No. COMMUNICATION: Per this written report. Drafted by Bernice Guajardo MD on 05/23/2024 8:01 AM Final report signed by Bernice Guajardo MD on 05/23/2024 8:37 AM us Piter Burns MD IMG XR PROCEDURES Final Resul t * XR Femur Left 2+ Views (05/23/2024 8:00 AM EDT) Anatomical Region Laterality Modality Lower Extremities, Femur Left Digital Radiography Impressions 05/23/2024 8:37 AM EDT Left internal trochanteric femur fracture with normal position of the femoral head within the acetabulum. No other fractures are seen within the left lower extremity from the hip through the knee CRITICAL RESULT: No. COMMUNICATION: Per this written report. Drafted by Bernice Guajardo MD on 05/23/2024 8:01 AM Final report signed by Bernice Guajardo MD on 05/23/2024 8:37 AM Narrative 05/23/2024 8:37 AM EDT CLINICAL INDICATION: preop TECHNIQUE: XR CHEST 1 VIEW, XR KNEE LEFT 3 VIEWS, XR FEMUR LEFT 2+ VIEWS, XR HIP LEFT 2 OR 3 VIEWS COMPARISON: Chest radiograph from December 12, 2019 FINDINGS: AP view the chest demonstrates similar patchy areas of opacification in the lateral aspect of the right upper lobe and the lateral aspect of the left lung apex compared to the previous exam. There is no new focal opacification. There is no visualized pleural fluid collection or pneumothorax. The cardiac silhouette is stable. An event recorder is positioned over the left hemithorax. No acute bone abnormalities appreciated. AP view the pelvis and 2 views of the left hip are compared to the radiograph obtained approximately 30 minutes earlier. There is redemonstration of normal position of the femoral head within the acetabulum. There is redemonstration of intertrochanteric nondisplaced fracture. AP and lateral views of the left femur redemonstrate the intertrochanteric femur fracture. The femur is otherwise intact. There is vascular calcification. 3 views of the left knee do not demonstrate acute osseous or articular abnormality. There is chondrocalcinosis. There is normal position of the patella. There is no suprapatellar joint effusion. Procedure Note Bernice Guajardo MD - 05/23/2024 CLINICAL INDICATION: preop TECHNIQUE: XR CHEST 1 VIEW, XR KNEE LEFT 3 VIEWS, XR FEMUR LEFT 2+ VIEWS, XR HIP LEFT2 OR 3 VIEWS COMPARISON: Chest radiograph from December 12, 2019 FINDINGS: AP view the chest demonstrates similar patchy areas of opacification inthe lateral aspect of the right upper lobe and the lateral aspect of theleft lung apex compared to the previous exam. There is no new focalopacification. There is no visualized pleural fluid collection orpneumothorax. The cardiac silhouette is stable. An event recorder ispositioned over the left hemithorax. No acute bone abnormalitiesappreciated. AP view the pelvis and 2 views of the left hip are compared to theradiograph obtained approximately 30 minutes earlier. There isredemonstration of normal position of the femoral head within theacetabulum. There is redemonstration of intertrochanteric nondisplacedfracture. AP and lateral views of the left femur redemonstrate the intertrochantericfemur fracture. The femur is otherwise intact. There is vascularcalcification. 3 views of the left knee do not demonstrate acute osseous or articularabnormality. There is chondrocalcinosis. There is normal position of thepatella. There is no suprapatellar joint effusion. IMPRESSION: Left internal trochanteric femur fracture with normal position of thefemoral head within the acetabulum. No other fractures are seen within the left lower extremity from the hipthrough the knee CRITICAL RESULT: No. COMMUNICATION: Per this written report. Drafted by Bernice Guajardo MD on 05/23/2024 8:01 AM Final report signed by Bernice Guajardo MD on 05/23/2024 8:37 AM us Piter Burns MD IMG XR PROCEDURES Final Resul t * XR Hip Left 2 or 3 Views Including Pelvis (05/23/2024 8:00 AM EDT) Anatomical Region Laterality Modality Lower Extremities, Hip Left Digital R adiography Impressions 05/23/2024 8:37 AM EDT Left internal trochanteric femur fracture with normal position of the femoral head within the acetabulum. No other fractures are seen within the left lower extremity from the hip through the knee CRITICAL RESULT: No. COMMUNICATION: Per this written report. Drafted by Bernice Guajardo MD on 05/23/2024 8:01 AM Final report signed by Bernice Guajardo MD on 05/23/2024 8:37 AM Narrative 05/23/2024 8:37 AM EDT CLINICAL INDICATION: preop TECHNIQUE: XR CHEST 1 VIEW, XR KNEE LEFT 3 VIEWS, XR FEMUR LEFT 2+ VIEWS, XR HIP LEFT 2 OR 3 VIEWS COMPARISON: Chest radiograph from December 12, 2019 FINDINGS: AP view the chest demonstrates similar patchy areas of opacification in the lateral aspect of the right upper lobe and the lateral aspect of the left lung apex compared to the previous exam. There is no new focal opacification. There is no visualized pleural fluid collection or pneumothorax. The cardiac silhouette is stable. An event recorder is positioned over the left hemithorax. No acute bone abnormalities appreciated. AP view the pelvis and 2 views of the left hip are compared to the radiograph obtained approximately 30 minutes earlier. There is redemonstration of normal position of the femoral head within the acetabulum. There is redemonstration of intertrochanteric nondisplaced fracture. AP and lateral views of the left femur redemonstrate the intertrochanteric femur fracture. The femur is otherwise intact. There is vascular calcification. 3 views of the left knee do not demonstrate acute osseous or articular abnormality. There is chondrocalcinosis. There is normal position of the patella. There is no suprapatellar joint effusion. Procedure Note Bernice Guajardo MD - 05/23/2024 CLINICAL INDICATION: preop TECHNIQUE: XR CHEST 1 VIEW, XR KNEE LEFT 3 VIEWS, XR FEMUR LEFT 2+ VIEWS, XR HIP LEFT2 OR 3 VIEWS COMPARISON: Chest radiograph from December 12, 2019 FINDINGS: AP view the chest demonstrates similar patchy areas of opacification inthe lateral aspect of the right upper lobe and the lateral aspect of theleft lung apex compared to the previous exam. There is no new focalopacification. There is no visualized pleural fluid collection orpneumothorax. The cardiac silhouette is stable. An event recorder ispositioned over the left hemithorax. No acute bone abnormalitiesappreciated. AP view the pelvis and 2 views of the left hip are compared to theradiograph obtained approximately 30 minutes earlier. There isredemonstration of normal position of the femoral head within theacetabulum. There is redemonstration of intertrochanteric nondisplacedfracture. AP and lateral views of the left femur redemonstrate the intertrochantericfemur fracture. The femur is otherwise intact. There is vascularcalcification. 3 views of the left knee do not demonstrate acute osseous or articularabnormality. There is chondrocalcinosis. There is normal position of thepatella. There is no suprapatellar joint effusion. IMPRESSION: Left internal trochanteric femur fracture with normal position of thefemoral head within the acetabulum. No other fractures are seen within the left lower extremity from the hipthrough the knee CRITICAL RESULT: No. COMMUNICATION: Per this written report. Drafted by Bernice Guajardo MD on 05/23/2024 8:01 AM Final report signed by Bernice Guajardo MD on 05/23/2024 8:37 AM us Piter Burns MD IMG XR PROCEDURES Final Resul t * (ABNORMAL) Hemoglobin A1c (05/23/2024 6:52 AM EDT) Hemoglobin A1c 7.8(H) <5.7 % 05/23/2024 5:13 PM EDT [facility] Blood Venous blood specimen / Unknown Venipuncture / Unknown 05/23/2024 6:52 AM EDT 05/23/2024 6:54 AM EDT Narrative [facility] - 05/23/2024 5:13 PM EDT HA1C Interpretive Data: Diagnosis of Diabetes: Diabetic > or = 6.5% Pre-diabetic 5.7 to 6.4% Non-diabetic < or = 5.6% Glycemic Targets for Type I and Type II Diabetics: Non- Adults <7.0% Adults <6.0% Children and Adolescents <7.5% Source: [place] [employer]. Standards of medical care in diabetes,2017. Diabetes Care.2017:40 (suppl 1):S1-S135. us Bing Byers APRN LAB BLOOD ORDERABLES Final Result Performing Organization Address City/[facility]/ZIP Co de Phone Number [facility] [address] [place] [address] * Gold Top (05/23/2024 6:52 AM EDT) Extra Hold for add-ons 05/23/2024 9:01 AM EDT [facility] Comment:Auto resulted. Blood Venous blood specimen / Unknown 05/23/2024 6:52 AM EDT 05/23/2024 6:56 AM EDT us Piter Burns MD LAB BLOOD ORDERABLES Final Re sult [facility] [address] [place] [address] * Light Green Top (05/23/2024 6:52 AM EDT) Extra Hold for add-ons 05/23/2024 9:01 AM EDT [facility] Comment:Auto resulted. Blood Venous blood specimen / Unknown 05/23/2024 6:52 AM EDT 05/23/2024 6:56 AM EDT us Piter Burns MD LAB BLOOD ORDERABLES Final Re sult Performing Organization Address City/[facility]/ZIP Co de Phone Number [facility] [address] [place] [address] * BNP (05/23/2024 6:52 AM EDT) N-Terminal, PROBNP, Plasma 303 0 - 899 pg/mL 05/23/2024 7:16 AM EDT [facility] Blood Venous blood specimen / Unknown Venipuncture / Unknown 05/23/2024 6:52 AM EDT 05/23/2024 6:54 AM EDT Joshua Cash MD LAB BLOOD ORDERABLES Final Re sult Performing Organization Address [facility] Co de Phone Number [facility] [address] [place] [address] * ED HIV 1/2 Antibody/Antigen Screen w/Reflex to HIV 1/2 Differentiation (05/23/2024 6:52 AM EDT) Pathologist [facility] [place] HIV 1 & 2 Antibody/Antigen Screen Non Reactive Non Reactive 05/23/2024 7:41 AM EDT [facility] Comment:Screening for HIV 1 & 2 antibodies, and P24 antigen is NONREACTIVE. No confirmatory testing is required. Blood Venous blood specimen / Unknown Venipuncture / Unknown 05/23/2024 6:52 AM EDT 05/23/2024 7:01 AM EDT us Piter Burns MD LAB BLOOD ORDERABLES Final Re sult Performing Organization Address City/[facility]/ZIP Co de Phone Number [facility] [address] [place] [address] * (ABNORMAL) Basic Metabolic Panel, Plasma (05/23/2024 6:52 AM EDT) Glucose, Plasma 119(H) 74 - 99 mg/dL 05/23/2024 7:16 AM EDT [facility] BUN, Plasma 104(H) 8 - 23 mg/dL 05/23/2024 7:16 AM EDT [facility] Creatinine, Plasma 2.92(H) 0.60 - 1.10 mg/dL 05/23/2024 7:16 AM EDT [facility] BUN/Creatinine Ratio 36 05/23/2024 7:16 AM EDT [facility] Sodium, Plasma 141 136 - 145 mmol/L 05/23/2024 7:16 AM EDT [facility] Potassium, Plasma 5.4(H) 3.6 - 4.9 mmol/L 05/23/2024 7:16 AM EDT [facility] Chloride, Plasma 103 97 - 107 mmol/L 05/23/2024 7:16 AM EDT [facility] CO2, Plasma 27 22 - 29 mmol/L 05/23/2024 7:16 AM EDT [facility] Anion Gap 11 6 - 16 mmol/L 05/23/2024 7:16 AM EDT [facility] Total Calcium, Plasma 9.4 8.9 - 10.2 mg/dL 05/23/2024 7:16 AM EDT [facility] eGFRcr 17.5 mL/min/1.7 3m*2 05/23/2024 7:16 AM EDT [facility] Comment:Reported eGFRcr in m L/min/1.73m2 is based the CKD-EPI 2020 equation that does not use a race coefficient. Blood Venous blood specimen / Unknown Venipuncture / Unknown 05/23/2024 6:52 AM EDT 05/23/2024 6:54 AM EDT us Piter Burns MD LAB BLOOD ORDERABLES Final Re sult [facility] [address] [place] [address] * (ABNORMAL) CBC W/O Differential (05/23/2024 6:52 AM EDT) WBC Count 15.26(H) 3.70 - 10.30 10*3/uL LAB HEMATOLOGY METHOD 05/23/2024 6:56 AM EDT [facility] RBC Count 4.33 3.90 - 5.20 10*6/uL LAB HEMATOLOGY METHOD 05/23/2024 6:56 AM EDT [facility] HGB 11.0(L) 11.2 - 15.7 g/dL LAB HEMATOLOGY METHOD 05/23/2024 6:56 AM EDT [facility] HCT 36.0 34.0 - 45.0 % LAB HEMATOLOGY METHOD 05/23/2024 6:56 AM EDT [facility] Platelet Count 225 155 - 369 10*3/uL LAB HEMATOLOGY METHOD 05/23/2024 6:56 AM EDT [facility] MCV 83 79 - 98 fL LAB HEMATOLOGY METHOD 05/23/2024 6:56 AM EDT [facility] MCH 25.4(L) 26.0 - 32.0 pg LAB HEMATOLOGY METHOD 05/23/2024 6:56 AM EDT [facility] MCHC 30.6(L) 30.7 - 35.5 g/dL LAB HEMATOLOGY METHOD 05/23/2024 6:56 AM EDT [facility] RDW 17.3(H) 11.5 - 14.5 % LAB HEMATOLOGY METHOD 05/23/2024 6:56 AM EDT [facility] MPV 9.8 8.8 - 12.5 fL LAB HEMATOLOGY METHOD 05/23/2024 6:56 AM EDT [facility] nRBC 0.0 <=0.0 per 100 WBCs LAB HEMATOLOGY METHOD 05/23/2024 6:56 AM EDT [facility] Blood Venous blood specimen / Unknown Venipuncture / Unknown 05/23/2024 6:52 AM EDT 05/23/2024 6:54 AM EDT us Piter Burns MD LAB BLOOD ORDERABLES Final Re sult [facility] [address] [place] [address] * (ABNORMAL) Prothrombin Time/INR (05/23/2024 6:52 AM EDT) Prothrombin Time 19.2(H) 12.0 - 14.3 sec LAB COAGULATION METHOD 05/23/2024 7:24 AM EDT [facility] INR 1.6(H) 0.9 - 1.1 LAB COAGULATION METHOD 05/23/2024 7:24 AM EDT [facility] Blood Venous blood specimen / Unknown Venipuncture / Unknown 05/23/2024 6:52 AM EDT 05/23/2024 6:54 AM EDT Narrative [facility] - 05/23/2024 7:24 AM EDT OPTIMAL INR RANGES FOR PATIENT ON ORAL ANTICOAGULANT THERAPY Prevention of venous thromboembolism INR 2.0 to 3.0 In patients with heart disease: Atrial fibrillation INR 2.0 to 3.0 Valvular heart disease INR 2.0 to 3.0 Tissue heart valves INR 2.0 to 3.0 Mechanical prosthetic valves INR 2.5 to 3.5 Prevention of recurrent OH INR 2.5 to 3.5 Piter Burns MD LAB BLOOD ORDERABLES Final Re sult Performing Organization Address City/[facility] Co de Phone Number [facility] [address] [place] [address] * Type and Screen (05/23/2024 6:52 AM EDT) ABO/Rh A Positive 05/23/2024 6:28 AM EDT BLOOD BANK Antibody Screen Negative 05/23/2024 6:28 AM EDT BLOOD BANK Specimen Expiration 05/26/2024 23:59 05/23/2024 6:28 AM EDT BLOOD BANK Blood Venous blood specimen / Unknown Venipuncture / Unknown 05/23/2024 6:52 AM EDT 05/23/2024 6:55 AM EDT Piter Burns MD LAB BLOOD BANK TEST ORDERABLE S Final Result Performing Organization Address City/[facility] Co de Phone Number BLOOD BANK [address] [place] [address], [place] * XR Hip Left Stress View (05/23/2024 6:52 AM EDT) Anatomical Region Laterality Modality Lower Extremities, Hip Left Digital R adiography Impressions 05/23/2024 7:01 AM EDT Complete, mildly displaced intertrochanteric fracture of the left femur. CRITICAL RESULT: No. COMMUNICATION: Per this written report. By electronically signing this report, I, the attending physician, attest that I have personally reviewed the images/data for the above examination(s) and agree with the final edited report. Drafted by Roc Montilla MD on 05/23/2024 6:54 AM Final report signed by Deon Hughes MD on 05/23/2024 7:01 AM Narrative 05/23/2024 7:01 AM EDT CLINICAL INDICATION: IT fx, will vocera; please get other XRs first TECHNIQUE: XR HIP LEFT STRESS VIEW COMPARISON: CT abdomen and pelvis 09/03/2023 FINDINGS: Complete, mildly displaced intertrochanteric fracture of the left femur. Mild soft tissue edema about the left hip. No significant pelvic abnormalities. The femoroacetabular joint is well approximated. Imaged loops of bowel are normal in caliber. Procedure Note Deon Hughes MD - 05/23/2024 CLINICAL INDICATION: IT fx, will vocera; please get other XRs first TECHNIQUE: XR HIP LEFT STRESS VIEW COMPARISON: CT abdomen and pelvis 09/03/2023 FINDINGS: Complete, mildly displaced intertrochanteric fracture of the left femur.Mild soft tissue edema about the left hip. No significant pelvicabnormalities. The femoroacetabular joint is well approximated. Imagedloops of bowel are normal in caliber. IMPRESSION: Complete, mildly displaced intertrochanteric fracture of the left femur. CRITICAL RESULT: No. COMMUNICATION: Per this written report. By electronically signing this report, I, the attending physician, attestthat I have personally reviewed the images/data for the aboveexamination(s) and agree with the final edited report. Drafted by Roc Montilla MD on 05/23/2024 6:54 AM Final report signed by Deon Hughes MD on 05/23/2024 7:01 AM us Piter Burns MD IMG XR PROCEDURES Final Resul t * EKG now - STAT (adult) (05/23/2024 6:24 AM EDT) EKG DIAGNOSIS CLASS Normal MUSE ECG Ventricular Rate 64 BPM MUSE ECG Atrial Rate 64 BPM MUSE ECG MD Interval 170 ms MUSE ECG QRSD Interval 74 ms MUSE ECG QT Interval 406 ms MUSE ECG QTC Interval 418 ms MUSE ECG P [place] 33 degrees MUSE ECG R [place] -12 degrees MUSE ECG T Wave [place] 32 degrees MUSE ECG Diagnosis Normal sinus rhythm MUSE ECG Diagnosis Normal ECG MUSE ECG Diagnosis MUSE ECG Diagnosis Confirmed by Farhat Claudio ([id number]) on 05/23/2024 8:12:36 AM MUSE ECG 05/23/2024 6:24 AM EDT 05/23/2024 8:12 AM EDT us Chip White MD ECG ORDERABLES Final Resu lt MUSE ECG documented in this encounter Visit Diagnoses Diagnosis Fall at home, initial encounter- Primary Closed fracture of left hip, initial encounter ([facility]) COPD exacerbation ([facility]) Obstructive chronic bronchitis with exacerbation Hyperkalemia Hyperpotassemia RAGHAV (acute kidney injury) ([facility]) Fall Unspecified fall Closed intertrochanteric fracture of left femur Hyperkalemia Hyperpotassemia Atrial fibrillation ([facility]/H[facility]) Atrial fibrillation [id number] kidney injury ([facility]) COPD (chronic obstructive pulmonary disease) ([facility]) Chronic airway obstruction, not elsewhere classified Frailty Senility without mention of psychosis Gait disturbance Abnormality of gait Type 2 diabetes mellitus Acute respiratory failure CHF (congestive heart failure) ([facility]) Congestive heart failure, unspecified Cirrhosis ([facility]) Cirrhosis of liver without mention of alcohol Essential hypertension Unspecified essential hypertension Diabetic neuropathy ([facility]) Type II or unspecified type diabetes mellitus with neurological manifestations, not stated as uncontrolled Anxiety and depression Hyperlipidemia Other and unspecified hyperlipidemia Current use of custodial anticoagulation Closed fracture of left hip ([facility]) Leukocytosis Leukocytosis, unspecified Overweight (BMI 25.0-29.9) Overweight documented in this encounter Admitting Diagnoses Diagnosis Fall at home, initial encounter Closed fracture of left hip ([facility]) documented in this encounter Administered Medications Inactive Administered Medications - up to 3 most recent administrations Medication Order MAR Action Action Date Dose Rate Site acetaminophen (Tylenol) tablet 650 mg 650 mg, Oral, Every 8 hours, First dose on Tue05/23/24 at 1330, Until Discontinued, Routine Given 06/01/2024 12:30 PM EDT 650 mg Given 06/01/2024 5:48 AM EDT 650 mg Given 05/31/2024 10:00 PM EDT 650 mg ARIPiprazole (Abilify) tablet 10 mg 10 mg, Oral, Every morning, First dose on Tue05/24/24 at 0900, Until Discontinued, Routine Given 06/01/2024 8:27 AM EDT 10 mg Given 05/31/2024 8:10 AM EDT 10 mg Given 05/30/2024 8:34 AM EDT 10 mg atorvastatin (Lipitor) tablet 10 mg 10 mg, Oral, Nightly, First dose on Tue05/23/24 at 2100, Until Discontinued, Routine Given 05/31/2024 8:20 PM EDT 10 mg Given 05/30/2024 10:21 PM EDT 10 mg Given 05/29/2024 10:00 PM EDT 10 mg azithromycin (Zithromax) 500 mg in sodium chloride 0.9% 250 mL IVPB (vial adapter required) 500 mg, Intravenous, Every 24 hours, 3 doses, First dose on Tue05/24/24 at 0145, Last dose on Tue05/26/24 at 0145, Routine New Bag 05/26/2024 1:20 AM EDT 500 mg 275 mL /hr New Bag 05/25/2024 2:16 AM EDT 500 mg 275 mL/hr New Bag 05/24/2024 1:45 AM EDT 500 mg 275 mL/hr bumetanide (Bumex) injection 1 mg 1 mg, Intravenous, Once, 1 dose, On Tue05/23/24 at 0745, Routine Given 05/23/2024 8:03 AM EDT 1 mg bumetanide (Bumex) tablet 1 mg 1 mg, Oral, Every morning, First dose on Tue05/24/24 at 0900, Until Discontinued, Routine Given 06/01/2024 8:28 AM EDT 1 mg Given 05/31/2024 8:08 AM EDT 1 mg Given 05/30/2024 8:35 AM EDT 1 mg bumetanide (Bumex) tablet 2 mg 2 mg, Oral, Daily, First dose on Tue05/23/24 at 1330, Until Discontinued, Routine Given 05/23/2024 1:21 PM EDT 2 mg busPIRone (Buspar) tablet 10 mg 10 mg, Oral, 2 times daily, First dose on Tue05/23/24 at 2100, Until Discontinued, Routine Given 06/01/2024 8:28 AM EDT 10 mg Given 05/31/2024 8:21 PM EDT 10 mg Given 05/31/2024 8:11 AM EDT 10 mg calcium carbonate (Tums) chewable tablet 1,000 mg 1,000 mg, Oral, Daily, First dose on Tue05/30/24 at 0900, Until Discontinued, Routine Given 06/01/2024 8:28 AM EDT 1,000 mg Given 05/31/2024 8:10 AM EDT 1,000 mg Given 05/30/2024 12:46 PM EDT 1,000 mg calcium gluconate 1 g in sodium chloride 0.9% 100 mL IVPB (vial adapter required) 1 g, Intravenous, Once, 1 dose, On Tue05/27/24 at 0315, at 240 mL/hr, Administer over 30 Minutes, Routine New 05/27/2024 2:36 AM EDT 1 g 240 mL/hr cefTRIAXone (Rocephin) 2 g in sodium chloride 0.9% 100 mL IVPB (vial adapter required) 2 g, Intravenous, Every 24 hours, 5 doses, First dose on Tue05/24/24 at 0145, Last dose on Tue05/28/24 at 0145, Routine New 05/28/2024 2:12 AM EDT 2 g 220 mL/hr New Bag 05/27/2024 12:50 AM EDT 2 g 220 mL/hr New 05/26/2024 1:24 AM EDT 2 g 220 mL/hr clindamycin (Cleocin) IV solution 900 mg 900 mg, Intravenous, Every 8 hours, 3 doses, First dose on Tue05/24/24 at 1600, Last dose on Tue05/25/24 at 0800, Routine, Recovery(Phase II-Outpatient)/On Unit(Inpatient)Indications:Prophylax is New Bag 05/25/2024 8:28 AM EDT 900 mg 50 mL/hr New Bag 05/24/2024 11:31 PM EDT 900 mg 50 mL/hr New Bag 05/24/2024 3:57 PM EDT 900 mg 50 mL/hr dextrose 50 % solution 12.5 g 12.5 g, Intravenous, Every 15 min PRN, Starting on Tue05/24/24 at 1341, Until Tue06/01/24 at 1723, Routine, low blood sugar enoxaparin (Lovenox) syringe 30 mg 30 mg, Subcutaneous, 2 times daily, First dose on Tue05/28/24 at 1800, Until Discontinued, Routine Given 05/31/2024 8:11 AM EDT 30 mg Left Lower Abdomen Given 05/30/2024 10:21 PM EDT 30 mg L eft Lower Abdomen Given 05/30/2024 8:35 AM EDT 30 mg Le ft Lower Abdomen ergocalciferol (Vitamin D-2) capsule 50,000 Units 50,000 Units, Oral, Weekly, First dose on Tue05/30/24 at 0900, Until Discontinued, Routine Given 05/30/2024 12:46 PM EDT 50,000 Units famotidine (Pepcid) tablet 20 mg 20 mg, Oral, Every other day, First dose on Tue05/24/24 at 0900, Until Discontinued, Routine Given 05/28/2024 8:39 AM EDT 20 mg Given 05/26/2024 9:05 AM EDT 20 mg famotidine (Pepcid) tablet 20 mg 20 mg, Oral, Daily, First dose (after last modification) on Tue05/29/24 at 0900, Until Discontinued, Routine Given 06/01/2024 8:27 AM EDT 20 mg Given 05/31/2024 8:10 AM EDT 20 mg Given 05/30/2024 8:35 AM EDT 20 mg furosemide (Lasix) injection 40 mg 40 mg, Intravenous, Once, 1 dose, On Tue05/29/24 at 1015, Routine Given 05/29/2024 9:44 AM EDT 40 mg gabapentin (Neurontin) capsule 300 mg 300 mg, Oral, Every 8 hours scheduled, First dose (after last modification) on Tue05/23/24 at 1330, Until Discontinued, Routine Given 06/01/2024 1:41 PM EDT 300 mg Given 06/01/2024 5:48 AM EDT 300 mg Given 05/31/2024 10:53 PM EDT 300 mg glucagon (human recombinant) injection 1 mg 1 mg, Intramuscular, Every 15 min PRN, Starting on Tue05/24/24 at 1341, Until Tue06/01/24 at 1723, Routine, low blood sugar per Hypoglycemia Prevention and Treatment protocol glucose (Glutose) 40 % oral gel 15 grams of glucose 15 grams of glucose, Sublingual, Every 15 min PRN, Starting on Tue05/24/24 at 1341, Until Tue06/01/24 at 1723, Routine, low blood sugar, per Hypoglycemia Prevention and Treatment protocol guaiFENesin (Mucinex) 12 hr tablet 1,200 mg 1,200 mg, Oral, 2 times daily, First dose on Tue05/23/24 at 2100, Until Discontinued, Routine Given 06/01/2024 8:27 AM EDT 1,200 mg Given 05/31/2024 8:21 PM EDT 1,200 mg Given 05/31/2024 8:11 AM EDT 1,200 mg heparin (porcine) injection 5,000 Units 5,000 Units, Subcutaneous, Every 8 hours, First dose on Tue05/23/24 at 1400, Until Discontinued, Routine Given 05/28/2024 5:34 AM EDT 5,000 Units Left Lower Abdomen Given 05/27/2024 9:22 PM EDT 5,000 Units R ight Lower Abdomen Given 05/27/2024 1:18 PM EDT 5,000 Units R ight Upper Abdomen heparin (porcine) injection 5,000 Units 5,000 Units, Subcutaneous, Every 8 hours, First dose on Tue06/01/24 at 0000, Until Discontinued, Routine Given 06/01/2024 8:26 AM EDT 5,000 Units Left Lower Abdomen Given 06/01/2024 12:15 AM EDT 5,000 Units Left Lower Abdomen insulin glargine-yfgn 100 UNIT/ML injection 14 Units 14 Units, Subcutaneous, Nightly, First dose (after last modification) on Tue05/25/24 at 2100, Until Discontinued, Routine Given 05/27/2024 9:23 PM EDT 14 Units Right Upper Arm (Priya k) Given 05/26/2024 9:24 PM EDT 14 Units Le ft Lower Abdomen Given 05/25/2024 9:14 PM EDT 14 Units Le ft Lower Abdomen insulin glargine-yfgn 100 UNIT/ML injection 14 Units 14 Units, Subcutaneous, 2 times daily, First dose (after last modification) on [facility] 05/28/24 at 0900, Until Discontinued, Routine Given 06/01/2024 8:26 AM EDT 14 Units Left Lower Abdomen Given 05/31/2024 8:25 AM EDT 14 Units Le ft Lower Abdomen Given 05/30/2024 10:21 PM EDT 14 Units L eft Lower Abdomen insulin glargine-yfgn 100 UNIT/ML injection 8 Units 8 Units, Subcutaneous, Nightly, First dose on [facility] 05/24/24 at 2100, Until Discontinued, Routine Given 05/24/2024 9:34 PM EDT 8 Units Left Lower Abdomen insulin lispro (Admelog) 100 units/mL injection - Correction - Standard Dose 0-5 Units, Subcutaneous, 3 times daily with meals, First dose on [facility] 05/24/24 at 1730, Until Discontinued, Routine Given 06/01/2024 12:25 PM EDT 1 Units Left Lower Abdomen Given 06/01/2024 8:37 AM EDT 3 Units Le ft Lower Abdomen Given 05/31/2024 12:52 PM EDT 1 Units L eft Lower Abdomen insulin lispro (Admelog) injection - Correction - Nighttime Dose 0-3 Units, Subcutaneous, 2 times nightly (2100 & 0300), First dose on [facility] 05/24/24 at 2100, Until Discontinued, Routine Given 05/30/2024 3:19 AM EDT 1 Units Left Lower Abdomen Given 05/29/2024 10:03 PM EDT 1 Units L eft Lower Abdomen Given 05/28/2024 10:00 PM EDT 1 Units L eft Lower Abdomen Insulin Lispro (Admelog, HumaLOG) 100 UNIT/ML injection 10 Units 10 Units, Subcutaneous, 3 times daily with meals, First dose (after last modification) on [facility] 05/26/24 at 1300, Until Discontinued, Routine Given 05/27/2024 8:53 AM EDT 10 Units Right Upper Arm (Priya k) Given 05/26/2024 5:39 PM EDT 10 Units Le ft Upper Arm (Back) Given 05/26/2024 1:20 PM EDT 10 Units Ri ght Upper Arm (Back) Insulin Lispro (Admelog, HumaLOG) 100 UNIT/ML injection 12 Units 12 Units, Subcutaneous, 3 times daily with meals, First dose (after last modification) on Tue05/28/24 at 0830, Until Discontinued, Routine Given 06/01/2024 12:24 PM EDT 12 Units Left Lower Abdomen Given 06/01/2024 8:37 AM EDT 12 Units Le ft Lower Abdomen Given 05/31/2024 4:50 PM EDT 12 Units Le ft Lower Abdomen Insulin Lispro (Admelog, HumaLOG) 100 UNIT/ML injection 15 Units 15 Units, Subcutaneous, 3 times daily with meals, First dose (after last modification) on Tue05/27/24 at 1230, Until Discontinued, Routine Given 05/27/2024 4:36 PM EDT 15 Units Right Lower Abdomen Given 05/27/2024 11:44 AM EDT 15 Units L eft Lower Abdomen Insulin Lispro (Admelog, HumaLOG) 100 UNIT/ML injection 2 Units 2 Units, Subcutaneous, 3 times daily with meals, First dose on Tue05/24/24 at 1730, Until Discontinued, Routine Given 05/25/2024 1:29 PM EDT 2 Units Right Upper Arm (Priya k) Given 05/25/2024 8:32 AM EDT 2 Units Ri ght Upper Arm (Back) Given 05/24/2024 6:31 PM EDT 2 Units Le ft Lower Abdomen Insulin Lispro (Admelog, HumaLOG) 100 UNIT/ML injection 6 Units 6 Units, Subcutaneous, 3 times daily with meals, First dose (after last modification) on Tue05/25/24 at 1730, Until Discontinued, Routine Given 05/26/2024 9:12 AM EDT 6 Units Right Upper Arm (Priya k) Given 05/25/2024 6:14 PM EDT 6 Units Le ft Upper Arm (Back) ipratropium-albuterol (Duo-Neb) 0.5-2.5 mg/3 mL nebulizer solution 3 mL 3 mL, Nebulization, Every 6 hours PRN, Starting on Tue05/23/24 at 1558, Until Tue05/23/24 at 2020, Routine, shortness of breath Given 05/23/2024 8:07 PM EDT 3 mL ipratropium-albuterol (Duo-Neb) 0.5-2.5 mg/3 mL nebulizer solution 3 mL 3 mL, Nebulization, Every 4 hours, First dose (after last modification) on 05/24/25 at 0000, Until Discontinued, Routine Given 05/26/2024 7:33 AM EDT 3 mL Given 05/26/2024 3:32 AM EDT 3 mL Given 05/25/2024 11:38 PM EDT 3 mL ipratropium-albuterol (Duo-Neb) 0.5-2.5 mg/3 mL nebulizer solution 3 mL 3 mL, Nebulization, Once as needed, 1 dose, Starting on [facility] 05/24/24 at 0924, Until [facility] 05/24/24 at 1036, Routine, Recovery (Phase I only), shortness of breath Given 05/24/2024 10:36 AM EDT 3 mL ipratropium-albuterol (Duo-Neb) 0.5-2.5 mg/3 mL nebulizer solution 3 mL 3 mL, Nebulization, Every 6 hours PRN, Starting on [facility] 05/26/24 at 1215, Until [place] 05/27/24 at 1140, Routine, wheezing Given 05/27/2024 8:14 AM EDT 3 mL ipratropium-albuterol (Duo-Neb) 0.5-2.5 mg/3 mL nebulizer solution 3 mL 3 mL, Nebulization, Every 6 hours RT, First dose (after last modification) on Tue05/27/24 at 1500, Until Discontinued, Routine Given 06/01/2024 9:11 AM EDT 3 mL Given 06/01/2024 2:23 AM EDT 3 mL Given 05/31/2024 8:53 PM EDT 3 mL lactated Ringer's bolus 500 mL 500 mL, Intravenous, Once, 1 dose, On Tue05/25/24 at 0000, Administer over 1 Hours, Routine New Bag 05/24/2024 11:22 PM EDT 500 mL 500 mL/h r lactated Ringer's bolus 500 mL 500 mL, Intravenous, Once, 1 dose, On Tue05/29/24 at 1400, Administer over 1 Hours, Routine New Bag 05/29/2024 1:59 PM EDT 500 mL 500 mL/hr melatonin tablet 3 mg 3 mg, Oral, Nightly, First dose on Tue05/30/24 at 2100, Until Discontinued, Routine Given 05/31/2024 10:17 PM EDT 3 mg Given 05/30/2024 10:21 PM EDT 3 mg methocarbamol (Robaxin) tablet 500 mg 500 mg, Oral, Every 6 hours PRN, Starting on Tue05/23/24 at 1242, Until Tue05/25/24 at 1540, Routine, muscle spasms Given 05/24/2024 10:29 AM EDT 500 mg Given 05/23/2024 9:37 PM EDT 500 mg methocarbamol (Robaxin) tablet 500 mg 500 mg, Oral, 3 times daily, First dose (after last modification) on Tue05/27/24 at 1600, Until Discontinued, Routine Given 06/01/2024 8:27 AM EDT 500 mg Given 05/31/2024 10:00 PM EDT 500 mg Given 05/31/2024 4:50 PM EDT 500 mg methocarbamol (Robaxin) tablet 750 mg 750 mg, Oral, 3 times daily, First dose (after last modification) on Tue05/25/24 at 1630, Until Discontinued, Routine Given 05/27/2024 8:49 AM EDT 750 mg Given 05/26/2024 8:48 PM EDT 750 mg Given 05/26/2024 5:00 PM EDT 750 mg metoprolol tartrate (Lopressor) injection 5 mg 5 mg, Intravenous, Once, 1 dose, On Tue05/29/24 at 1245, Routine Given 05/29/2024 12:09 PM EDT 5 mg metoprolol tartrate (Lopressor) injection 5 mg 5 mg, Intravenous, Every 5 min PRN, 2 doses, Starting on Tue05/29/24 at 1302, Until Tue06/01/24 at 1723, Routine, HR > 130 metoprolol tartrate (Lopressor) split tablet 12.5 mg 12.5 mg, Oral, 2 times daily, First dose (after last modification) on Tue05/25/24 at 2100, Until Discontinued, Routine Given 05/26/2024 9:05 AM EDT 12.5 mg Given 05/25/2024 9:02 PM EDT 12.5 mg metoprolol tartrate (Lopressor) split tablet 12.5 mg 12.5 mg, Oral, Once, 1 dose, On Tue05/26/24 at 1300, Routine Given 05/26/2024 1:18 PM EDT 12.5 mg metoprolol tartrate (Lopressor) split tablet 37.5 mg 37.5 mg, Oral, 2 times daily, First dose (after last modification) on Tue05/29/24 at 2100, Until Discontinued, Routine Given 06/01/2024 8:27 AM EDT 37.5 mg Given 05/31/2024 8:08 AM EDT 37.5 mg Given 05/30/2024 10:21 PM EDT 37.5 mg metoprolol tartrate (Lopressor) tablet 25 mg 25 mg, Oral, 2 times daily, First dose on Tue05/23/24 at 2100, Until Discontinued, Routine Given 05/24/2024 9:34 PM EDT 25 mg Given 05/23/2024 9:37 PM EDT 25 mg metoprolol tartrate (Lopressor) tablet 25 mg 25 mg, Oral, 2 times daily, First dose (after last modification) on Tue05/26/24 at 2100, Until Discontinued, Routine Given 05/29/2024 8:17 AM EDT 25 mg Given 05/28/2024 10:00 PM EDT 25 mg Given 05/28/2024 8:05 AM EDT 25 mg mometasone-formoterol (Dulera 100) 100-5 MCG/ACT inhaler 2 puff 2 puff, Inhalation, 2 times daily, First dose on Tue05/23/24 at 1345, Until Discontinued, Routine Given 06/01/2024 8:28 AM EDT 2 puffs Given 05/31/2024 8:53 PM EDT 2 puffs Given 05/31/2024 8:12 AM EDT 2 puffs mupirocin (Bactroban) 2 % ointment 1 Application Each Nostril, 2 times daily, 10 doses, First dose on Tue05/23/24 at 0935, Last dose on Tue05/27/24 at 2100, Routine Given 05/27/2024 9:21 PM EDT 1 Ap plication Given 05/27/2024 8:49 AM EDT 1 Application Given 05/26/2024 8:49 PM EDT 1 Application oxyCODONE (Roxicodone) immediate release tablet 10 mg 10 mg, Oral, Once as needed, 2 doses, Starting on Tue05/24/24 at 0924, Until Tue05/24/24 at 1044, Routine, Recovery (Phase I only), pain score of 6-8 out of 10 Given 05/24/2024 10:29 AM EDT 10 mg oxyCODONE (Roxicodone) immediate release tablet 2.5 mg 2.5 mg, Oral, Every 4 hours PRN, Starting on Tue05/25/24 at 1207, Until Tue05/30/24 at 0800, Routine, moderate pain Given 05/30/2024 6:10 AM EDT 2.5 mg Given 05/29/2024 11:19 PM EDT 2.5 mg Given 05/29/2024 6:14 PM EDT 2.5 mg oxyCODONE (Roxicodone) immediate release tablet 5 mg 5 mg, Oral, Every 4 hours PRN, Starting on Tue05/24/24 at 1540, Until Tue05/25/24 at 1207, Routine, moderate pain Given 05/25/2024 8:29 AM EDT 5 mg Given 05/25/2024 1:27 AM EDT 5 mg Given 05/24/2024 8:32 PM EDT 5 mg oxyCODONE (Roxicodone) immediate release tablet 5 mg 5 mg, Oral, Every 6 hours PRN, Starting on Tue05/30/24 at 0759, Until Tue05/31/24 at 0657, Routine, severe pain Given 05/31/2024 3:45 AM EDT 5 mg Given 05/30/2024 10:28 PM EDT 5 mg Given 05/30/2024 12:51 PM EDT 5 mg oxyCODONE (Roxicodone) immediate release tablet 5 mg 5 mg, Oral, Every 4 hours PRN, Starting on Tue05/31/24 at 0656, Until Tue06/01/24 at 1723, Routine, severe pain Given 06/01/2024 12:29 PM EDT 5 mg Given 06/01/2024 8:27 AM EDT 5 mg Given 06/01/2024 3:49 AM EDT 5 mg polyethylene glycol (Miralax) packet 17 g 17 g, Oral, Daily, First dose on Tue05/25/24 at 1300, Until Discontinued, Routine Given 05/26/2024 9:07 AM EDT 17 g Given 05/25/2024 1:29 PM EDT 17 g polyethylene glycol (Miralax) packet 17 g 17 g, Oral, 2 times daily, First dose (after last modification) on Tue05/26/24 at 2100, Until Discontinued, Routine Given 06/01/2024 8:26 AM EDT 17 g Given 05/31/2024 8:10 AM EDT 17 g Given 05/28/2024 10:00 PM EDT 17 g predniSONE (Deltasone) tablet 40 mg 40 mg, Oral, Daily, 5 doses, First dose on Tue05/24/24 at 0900, Last dose on Tue05/28/24 at 0900, Routine Given 05/28/2024 8:05 AM EDT 40 mg Given 05/27/2024 8:49 AM EDT 40 mg Given 05/26/2024 9:06 AM EDT 40 mg predniSONE (Deltasone) tablet 40 mg 40 mg, Oral, Once, 1 dose, On Tue05/29/24 at 0900, Routine Given 05/29/2024 8:17 AM EDT 40 mg senna-docusate (Andreia-Colace) 8.6-50 MG per tablet 2 tablet 2 tablet, Oral, Nightly, First dose (after last modification) on Tue05/25/24 at 2100, Until Discontinued, Routine Given 05/25/2024 9:02 PM EDT 2 tablets senna-docusate (Andreia-Colace) 8.6-50 MG per tablet 2 tablet 2 tablet, Oral, 2 times daily, First dose (after last modification) on Tue05/26/24 at 2100, Until Discontinued, Routine Given 06/01/2024 8:28 AM EDT 2 table ts Given 05/31/2024 8:21 PM EDT 2 tablets Given 05/31/2024 8:10 AM EDT 2 tablets sertraline (Zoloft) tablet 200 mg 200 mg, Oral, Daily, First dose on Tue05/23/24 at 1800, Until Discontinued, Routine Given 06/01/2024 8:27 AM EDT 200 mg Given 05/31/2024 8:10 AM EDT 200 mg Given 05/30/2024 8:35 AM EDT 200 mg sodium chloride 0.9 % flush 10 mL 10 mL, Intravenous, Every 12 hours, First dose on Tue05/23/24 at 0935, Until Discontinued, Routine Given 06/01/2024 8:37 AM EDT 10 mL Given 05/31/2024 10:00 PM EDT 10 mL Given 05/31/2024 10:47 AM EDT 10 mL sodium chloride 0.9 % flush 10 mL 10 mL, Intravenous, As needed, Starting on Tue05/23/24 at 0929, Until Tue06/01/24 at 1723, Routine, line care sodium zirconium cyclosilicate (Lokelma) packet 10 g 10 g, Oral, Once, 1 dose, On Tue05/28/24 at 1415, Routine Given 05/28/2024 2:53 PM EDT 10 g sodium zirconium cyclosilicate (Lokelma) packet 5 g 5 g, Oral, 2 times daily, First dose on Tue05/24/24 at 1445, Until Discontinued, Routine Given 06/01/2024 8:27 AM EDT 5 g Given 05/31/2024 8:11 AM EDT 5 g Given 05/30/2024 8:34 AM EDT 5 g Tiotropium [place] Monohydrate (Spiriva Respimat) 2.5 MCG/ACT inhaler 2 puff 2 puff, Inhalation, Daily, First dose on Tue05/23/24 at 1345, Until Discontinued, Routine Given 06/01/2024 8:29 AM EDT 2 puffs Given 05/31/2024 8:13 AM EDT 2 puffs Given 05/30/2024 8:44 AM EDT 2 puffs traZODone (Desyrel) tablet 25 mg 25 mg, Oral, Nightly PRN, Starting on Tue05/30/24 at 0800, Until Tue06/01/24 at 1723, Routine, sleep documented in this encounter Active and Recently Administered Medications Times are shown in EDT. Scheduled Medication Order 05/30/2024 05/31/2024 06/01/2024 acetaminophen (Tylenol) tablet 650 mg 650 mg, Oral, Every 8 hours, First dose on Tue05/23/24 at 1330, Until Discontinued, Routine 0602 (Given - Provider: Deidra Lee RN)1245 (Given - Provider: Alexis Roche RN)2221 (Given - Provider: Deidra Lee RN) 0628 (Given - Provider: Deidra Lee RN)1252 (Given - Provider: Melany Jon, CODI)2200 (Given - Provider: Nereida Garcia RN) 0548 (Given - Provider: Nereida Garcia RN)1230 (Given - Provider: Velma Vieira, CODI) ARIPiprazole (Abilify) tablet 10 mg 10 mg, Oral, Every morning, First dose on Tue05/24/24 at 0900, Until Discontinued, Routine 0834 (Given - Provider: Alexis Roche RN) 0810 (Given - Provider: Melany Jon, CODI) 0827 (Given - Provider: Velma Vieira, CODI) atorvastatin (Lipitor) tablet 10 mg 10 mg, Oral, Nightly, First dose on Tue05/23/24 at 2100, Until Discontinued, Routine 222 (Given - Provider: Deidra Lee RN - Comment: RN was attending [facility] on the floor) 2019 (Given - Provider: Nereida Garcia RN) bumetanide (Bumex) tablet 1 mg 1 mg, Oral, Every morning, First dose on Tue05/24/24 at 0900, Until Discontinued, Routine 0835 (Given - Provider: lAexis Roche RN) 0808 (Given - Provider: Melany Jon RN) 0828 (Given - Provider: Velma Vieira, CODI) busPIRone (Buspar) tablet 10 mg 10 mg, Oral, 2 times daily, First dose on Tue05/23/24 at 2100, Until Discontinued, Routine 0835 (Given - Provider: Alexis Roche RN)222 (Given - Provider: Deidra Lee RN - Comment: RN was attending [facility] on the floor) 0811 (Given - Provider: Melany oJn, CODI)202 (Given - Provider: Nereida Garcia RN) 0828 (Given - Provider: Velma Vieira RN) calcium carbonate (Tums) chewable tablet 1,000 mg 1,000 mg, Oral, Daily, First dose on Tue05/30/24 at 0900, Until Discontinued, Routine 1246 (Given - Provider: Alexis Roche RN) 0810 (Given - Provider: Melany Jon RN) 0828 (Given - Provider: Velma Vieira, CODI) enoxaparin (Lovenox) syringe 30 mg (CANCELED) 30 mg, Subcutaneous, 2 times daily, First dose on Tue05/28/24 at 1800, Until Discontinued, Routine 0835 (Given - Provider: Alexis Roche RN)222 (Given - Provider: Deidra Lee RN - Comment: RN was attending [facility] on the floor) 0811 (Given - Provider: Melany Jon RN) ergocalciferol (Vitamin D-2) capsule 50,000 Units 50,000 Units, Oral, Weekly, First dose on Tue05/30/24 at 0900, Until Discontinued, Routine 1246 (Given - Provider: Alexis Roche RN) famotidine (Pepcid) tablet 20 mg 20 mg, Oral, Daily, First dose (after last modification) on Tue05/29/24 at 0900, Until Discontinued, Routine 0835 (Given - Provider: Alexis Roche RN) 0810 (Given - Provider: Melany Jon RN) 0827 (Given - Provider: Velma Vieira RN) gabapentin (Neurontin) capsule 300 mg 300 mg, Oral, Every 8 hours scheduled, First dose (after last modification) on Tue05/23/24 at 1330, Until Discontinued, Routine 0602 (Given - Provider: Deidra Lee RN)1300 (Given - Provider: Alexis Roche RN)222 (Given - Provider: Deidra Lee RN - Comment: RN was attending [facility] on the floor) 0632 (Given - Provider: Deidra Lee RN)1300 (Given - Provider: Melany Jon RN)2253 (Given - Provider: Nereida Garcia, CODI) 0548 (Given - Provider: Nereida Garcia RN)1341 (Given - Provider: Velma Vieira RN) guaiFENesin (Mucinex) 12 hr tablet 1,200 mg 1,200 mg, Oral, 2 times daily, First dose on Tue05/23/24 at 2100, Until Discontinued, Routine 0835 (Given - Provider: Alexis Roche RN)222 (Given - Provider: Deidra Lee RN - Comment: RN was attending [facility] on the floor) 0811 (Given - Provider: Melany Jno, RN)2020 (Given - Provider: Nereida Garcia, CODI) 08 (Given - Provider: Velma Vieira RN) heparin (porcine) injection 5,000 Units 5,000 Units, Subcutaneous, Every 8 hours, First dose on Tue06/01/24 at 0000, Until Discontinued, Routine 0015 (Given - Provider: Nereida Garcia RN)0826 (Given - Provider: Velma Vieira RN)1600 (Canceled Entry - Provider: Automatic Discharge Provider - Comment: Automatically canceled at discontinue of medication order) insulin glargine-yfgn 100 UNIT/ML injection 14 Units 14 Units, Subcutaneous, 2 times daily, First dose (after last modification) on Tue05/28/24 at 0900, Until Discontinued, Routine 0835 (Given - Provider: Alexis Roche RN)222 (Given - Provider: Deidra Lee RN - Comment: RN was attending [facility] on the floor) 08 (Given - Provider: Melany Jon RN)2100 (Not Given - Provider: Nereida Garcia RN - Reason: Hold for condition: must add comment - Comment: missed dose) 08 (Given - Provider: Velma Vieira RN) insulin lispro (Admelog) 100 units/mL injection - Correction - Standard Dose 0-5 Units, Subcutaneous, 3 times daily with meals, First dose on Tue05/24/24 at 1730, Until Discontinued, Routine 0836 (Given - Provider: Alexis Roche RN)1246 (Given - Provider: Alexis Roche RN)1751 (Not Given - Provider: Alexis Roche RN - Reason: Order parameters not met - Comment: bg 134) 0824 (Given - Provider: Melany Jon, CODI)1252 (Given - Provider: Melany Jon, CODI)1635 (Not Given - Provider: Melany Jon RN - Reason: Order parameters not met - Comment: 94) 0837 (Given - Provider: Velma Vieira RN)1225 (Given - Provider: Velma Vieira RN) insulin lispro (Admelog) injection - Correction - Nighttime Dose 0-3 Units, Subcutaneous, 2 times nightly (2099 & 299), First dose on Tue05/24/24 at 2100, Until Discontinued, Routine 0319 (Given - Provider: Deidra Lee RN) 0058 (Not Given - Provider: Deidra Lee RN - Reason: Order parameters not met - Comment: Original FSBG 78, 139 followed hypoglycemia protocol)032 (Not Given - Provider: Deidra Lee RN - Reason: Order parameters not met - Comment: 2099 FSBG 78, follow up FS after hypoglycemia protocol 139)2100 (Not Given - Provider: Nereida Garcia RN - Reason: Order parameters not met - Comment: 110 mg/dl) 030 (Not Given - Provider: Nereida Garcia RN - Reason: Order parameters not met - Comment: 110 mg/dl) Insulin Lispro (Admelog, HumaLOG) 100 UNIT/ML injection 12 Units 12 Units, Subcutaneous, 3 times daily with meals, First dose (after last modification) on Tue05/28/24 at 0830, Until Discontinued, Routine 0843 (Given - Provider: Alexis Roche RN)1246 (Given - Provider: Alexis Roche RN)1754 (Given - Provider: Alexis Roche RN) 0824 (Given - Provider: Melany Jon, CODI)1253 (Given - Provider: Melany Jon, CODI)1650 (Given - Provider: Melany Jon, CODI) 0837 (Given - Provider: Velma Vieira, CODI)1224 (Given - Provider: Velma Vieira, CODI) ipratropium-albuterol (Duo-Neb) 0.5-2.5 mg/3 mL nebulizer solution 3 mL 3 mL, Nebulization, Every 6 hours RT, First dose (after last modification) on Tue05/27/24 at 1500, Until Discontinued, Routine 0303 (Given - Provider: Chip Richardson)0859 (Given - Provider: Flora Andrade)1557 (Given - Provider: Flora Andrade)2014 (Given - Provider: Ginny Mullins) 0321 (Given - Provider: Ginny Mullins)0903 (Given - Provider: Sherman Costa)1711 (Given - Provider: Booker Marquez)205 (Given - Provider: Basilia Ayala) 022 (Given - Provider: Basilia Ayala)0911 (Given - Provider: Ramona Gay)1513 (Not Given - Provider: Ramona Gay - Reason: Hold for condition: must add comment - Comment: pt discharged) melatonin tablet 3 mg 3 mg, Oral, Nightly, First dose on Tue05/30/24 at 2100, Until Discontinued, Routine 222 (Given - Provider: Deidra Lee RN - Comment: RN was attending [facility] on the floor) 221 (Given - Provider: Nereida Garcia, CODI) methocarbamol (Robaxin) tablet 500 mg 500 mg, Oral, 3 times daily, First dose (after last modification) on Tue05/27/24 at 1600, Until Discontinued, Routine 0834 (Given - Provider: Alexis Roche RN)1608 (Given - Provider: Alexis Roche RN)222 (Given - Provider: Deidra Lee RN - Comment: RN was attending [facility] on the floor) 0810 (Given - Provider: Melany Jon RN)1650 (Given - Provider: Melany Jon RN)2200 (Given - Provider: Nereida Garcia RN) 0827 (Given - Provider: Velma Vieira RN)1600 (Canceled Entry - Provider: Automatic Discharge Provider - Comment: Automatically canceled at discontinue of medication order) metoprolol tartrate (Lopressor) split tablet 37.5 mg 37.5 mg, Oral, 2 times daily, First dose (after last modification) on Tue05/29/24 at 2100, Until Discontinued, Routine 0834 (Given - Provider: Alexis Roche RN)222 (Given - Provider: Deidra Lee RN - Comment: RN was attending [facility] on the floor) 0808 (Given - Provider: Melany Jon RN)2100 (Not Given - Provider: Nereida Garcia RN - Reason: Order parameters not met - Comment: low bp) 0827 (Given - Provider: Velma Vieira RN) mometasone-formoterol (Dulera 100) 100-5 MCG/ACT inhaler 2 puff(Linked Group 1) 2 puff, Inhalation, 2 times daily, First dose on Tue05/23/24 at 1345, Until Discontinued, Routine 0843 (Given - Provider: Alexis Roche RN) 023 (Not Given - Provider: Deidra Lee RN - Reason: Hold for condition: must add comment - Comment: RN was attending [facility] on the floor)08 (Given - Provider: Melany Jon RN)2052 (Given - Provider: Basilia Ayala) 08 (Given - Provider: Velma Vieira, CODI) polyethylene glycol (Miralax) packet 17 g 17 g, Oral, 2 times daily, First dose (after last modification) on 05/26/24 at 2100, Until Discontinued, Routine 0836 (Not Given - Provider: Alexis Roche RN - Reason: Patient/family refused) 005 (Not Given - Provider: Deidra Lee RN - Reason: Patient/family refused)08 (Given - Provider: Melany Jon RN)2099 (Not Given - Provider: Nereida Garcia RN - Reason: Patient/family refused) 08 (Given - Provider: Velma Vieira, CODI) senna-docusate (Andreia-Colace) 8.6-50 MG per tablet 2 tablet 2 tablet, Oral, 2 times daily, First dose (after last modification) on 05/26/24 at 2100, Until Discontinued, Routine 0836 (Not Given - Provider: Alexis Roche RN - Reason: Patient/family refused)222 (Given - Provider: Deidra Lee RN - Comment: RN was attending [facility] on the floor) 08 (Given - Provider: Melany Jon RN)2020 (Given - Provider: Nereida Garcia, CODI) 0828 (Given - Provider: Velma Vieira RN) sertraline (Zoloft) tablet 200 mg 200 mg, Oral, Daily, First dose on Tue05/23/24 at 1800, Until Discontinued, Routine 0835 (Given - Provider: Alexis Roche RN) 08 (Given - Provider: Melany Jon RN) 0827 (Given - Provider: Velma Vieira RN) sodium chloride 0.9 % flush 10 mL(Linked Group 2) 10 mL, Intravenous, Every 12 hours, First dose on Tue05/23/24 at 0935, Until Discontinued, Routine 0836 (Given - Provider: Alexis Roche RN)2100 (Given - Provider: Deidra Lee, CODI) 1047 (Given - Provider: Melany Jon, CODI)2200 (Given - Provider: Nereida Garcia, CODI) 0837 (Given - Provider: Velma Vieira RN) sodium zirconium cyclosilicate (Lokelma) packet 5 g 5 g, Oral, 2 times daily, First dose on Tue05/24/24 at 1445, Until Discontinued, Routine 0834 (Given - Provider: Alexis Roche RN)2137 (Not Given - Provider: Deidra Lee RN - Reason: Medication not available) 0811 (Given - Provider: Melany Jon, CODI)2100 (Not Given - Provider: Nereida Garcia RN - Reason: Hold for condition: must add comment - Comment: missed dose) 0827 (Given - Provider: Velma Vieira, CODI) Tiotropium [place] Monohydrate (Spiriva Respimat) 2.5 MCG/ACT inhaler 2 puff(Linked Group 1) 2 puff, Inhalation, Daily, First dose on Tue05/23/24 at 1345, Until Discontinued, Routine 0844 (Given - Provider: Alexis Roche RN) 0813 (Given - Provider: Melany Jon, CODI) 0829 (Given - Provider: Velma Veiira, CODI) PRN Medication Order 05/30/2024 05/31/2024 06/01/2024 dextrose 50 % solution 12.5 g(Linked Group 3) 12.5 g, Intravenous, Every 15 min PRN, Starting on Tue05/24/24 at 1341, Until Tue06/01/24 at 1723, Routine, low blood sugar glucagon (human recombinant) injection 1 mg(Linked Group 3) 1 mg, Intramuscular, Every 15 min PRN, Starting on [place] 05/24/24 at 1341, Until Tue06/01/24 at 1723, Routine, low blood sugar per Hypoglycemia Prevention and Treatment protocol glucose (Glutose) 40 % oral gel 15 grams of glucose(Linked Group 3) 15 grams of glucose, Sublingual, Every 15 min PRN, Starting on Tue05/24/24 at 1341, Until Tue06/01/24 at 1723, Routine, low blood sugar, per Hypoglycemia Prevention and Treatment protocol metoprolol tartrate (Lopressor) injection 5 mg 5 mg, Intravenous, Every 5 min PRN, 2 doses, Starting on Tue05/29/24 at 1302, Until Tue06/01/24 at 1723, Routine, HR > 130 oxyCODONE (Roxicodone) immediate release tablet 2.5 mg (CANCELED) 2.5 mg, Oral, Every 4 hours PRN, Starting on Tue05/25/24 at 1207, Until Tue05/30/24 at 0800, Routine, moderate pain 0610 (Given - Provider: Deidra Lee RN) oxyCODONE (Roxicodone) immediate release tablet 5 mg (CANCELED) 5 mg, Oral, Every 6 hours PRN, Starting on Tue05/30/24 at 0759, Until Tue05/31/24 at 0657, Routine, severe pain 1251 (Given - Provider: Alexis Roche RN)2228 (Given - Provider: Deidra Lee, CODI) 0345 (Given - Provider: Deidra Lee RN) oxyCODONE (Roxicodone) immediate release tablet 5 mg 5 mg, Oral, Every 4 hours PRN, Starting on Tue05/31/24 at 0656, Until Tue06/01/24 at 1723, Routine, severe pain 0824 (Given - Provider: Melany Jon RN)202 (Given - Provider: Nereida Garcia RN) 0014 (Given - Provider: Nereida Garcia RN)0349 (Given - Provider: Nereida Garcia RN)0827 (Given - Provider: Velma Vieira RN)1229 (Given - Provider: Velma Vieira RN) sodium chloride 0.9 % flush 10 mL(Linked Group 2) 10 mL, Intravenous, As needed, Starting on Tue05/23/24 at 0929, Until Tue06/01/24 at 1723, Routine, line care traZODone (Desyrel) tablet 25 mg 25 mg, Oral, Nightly PRN, Starting on Tue05/30/24 at 0800, Until Tue06/01/24 at 1723, Routine, sleep Linked Groups Order Group 1: Tiotropium [place] Monohydrate (Spiriva Respimat) 2.5 MCG/ACT inhaler 2 puffJump to med 2 puff, Inhalation, Daily, First dose on Tue05/23/24 at 1345, Until Discontinued, Routine And mometasone-formoterol (Dulera 100) 100-5 MCG/ACT inhaler 2 puffJump to med 2 puff, Inhalation, 2 times daily, First dose on Tue05/23/24 at 1345, Until Discontinued, Routine Group 2: Insert peripheral IV (COMPLETED) Once, On Tue05/23/24 at 0930, For 1 occurrence And Saline lock IV (COMPLETED) Once, On Tue05/23/24 at 0930, For 1 occurrence And sodium chloride 0.9 % flush 10 mLJump to med 10 mL, Intravenous, Every 12 hours, First dose on Tue05/23/24 at 0935, Until Discontinued, Routine And sodium chloride 0.9 % flush 10 mLJump to med 10 mL, Intravenous, As needed, Starting on Tue05/23/24 at 0929, Until Tue06/01/24 at 1723, Routine, line care Group 3: glucose (Glutose) 40 % oral gel 15 grams of glucoseJump to med 15 grams of glucose, Sublingual, Every 15 min PRN, Starting on Tue05/24/24 at 1341, Until Tue06/01/24 at 1723, Routine, low blood sugar, per Hypoglycemia Prevention and Treatment protocol Or dextrose 50 % solution 12.5 gJump to med 12.5 g, Intravenous, Every 15 min PRN, Starting on Tue05/24/24 at 1341, Until Tue06/01/24 at 1723, Routine, low blood sugar Or glucagon (human recombinant) injection 1 mgJump to med 1 mg, Intramuscular, Every 15 min PRN, Starting on Tue05/24/24 at 1341, Until Tue06/01/24 at 1723, Routine, low blood sugar per Hypoglycemia Prevention and Treatment protocol documented in this encounter Additional Health Concerns Assessment Noted Time A Body Mass Index follow-up plan has been documented for the patient 06/01/2024 1:33 PM EDT documented as of this encounter Care Teams Java Developer Architect Relationship Specialty Start Date End Date Joshua Urban MD [address] [id number] PCP - General 06/27/20 [address], [place] [address] [employer] 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
--- OUTSIDE RECORDS SUMMARY | 2024-05-24 07:28 | XMS_ITS | Encounter Summary ---
Author Organization Healthcare Address [address] [place] [address] Care Team Providers Care Fast Food Shift Supervisor Name Role Phone Joshua Urban MD Primary Care Provider [phone] [facility] FUR OPERATOR Unavailable Unavailable Reason for Visit * Auth/Cert (Routine) Specialty Diagnoses / Procedures Referred By Contac t Referred To Contact Diagnoses Hyperkalemia COPD exacerbation (CMS/HCC) RAGHAV (acute kidney injury) ([facility]) Closed fracture of left hip, initial encounter (CMS/[facility]) Fall at home, initial encounter fall - femoral head fx. Hyperkalemia, CKD Lakesha Martin MD [address] [facility] [address] [place] [id number] Phone: tel: fax: [facility] [address] [place] [address] Phone: tel: Referral ID Status Reason Start Date Expiration Date Visits Re quested Visits Authorized [id number] 1 1 Encounter Details Date Type Department Care Team (Late st Contact Info) Description 05/24/2024 7:28 AM EDT Anesthesia Event [facility] [address] [place] [address] Pio Méndez MD [address] [place] [address] Nadine Friend, DEHYDRATOR OPERATOR, DNP [address] [place] [address] Anesthesia Record Procedure Summary Procedure Name Responsible Anesthesiologist Anesthesia Start Time Anesthesia Stop Time Left Intertroch Intramedullary Nail (Left: Leg Upper) Pio Méndez MD 05/24/24 0728 05/24/24 0953 Events Date Time Event Comment 05/24/2024 0725 0728 An Start The patient was reevaluated immediately before sedation and remains eligible for anesthesia plan. 0728 An Start Data 0728 In Room 0734 An Induction The patient was reevaluated immediately before moderate or deep sedation use and before anesthesia induction. 0739 An Intubation 0740 Anesthesia Ready 0751 an tono now 0809 Proc Start 0937 Proc Fin 0944 An Extubation 0946 an stop data 0948 Out of Room 0952 Handoff to Receiving I compl eted my handoff to the receiving clinician during which we: 1. Identified the patient 2. Identified the responsible provider 3. Reviewed the pertinent medical history 4. Discussed the surgical course 5. Reviewed intra-op anesthesia management and issues during anesthesia 6. Set expectations for post-procedure period 7. Allowed opportunity for questions and acknowledgement of understanding. 0953 An Stop Meds Name Total fentaNYL (Sublimaze) injection 50 mcg/mL 100 mcg propofol (Diprivan) injection 10 mg/mL 1 40 mg rocuronium (ZeMuron) injection 10 mg/mL 60 mg dexamethasone (Decadron) injection 4 mg/ mL 8 mg phenylephrine (David-Synephrine) prefilled syringe 1 mg/10 mL 700 mcg ondansetron (Zofran) injection 2 mg/mL 4 mg sugammadex (Bridion) injection 100 mg/mL 200 mg Lidocaine HCl 100 MG/5ML 60 mg clindamycin (Cleocin) IV solution 900 mg 900 mg albuterol 108 (90 Base) MCG/ACT 8 puff tranexamic acid (Cyklokapron) IVPB 1,000 mg 1,000 mg phenylephrine in 0.9% NaCl infusion 100 mcg/mL 2.37 mg sodium chloride 0.9 % infusion 1,500 mL * Agents Name O2 * Blood No blood administrations on file. Lines, Drains, and Airways Type Details Placement Removal Wound 05/24/24; 0950; Surgical; Closed Surgi; Leg; Anterior, Left, Upper 05/24/24 0950 by Lillie Ferraro, RN Peripheral IV Placement Date: 05/23/24; Placement Time: 0645; Catheter Size: 18 G; Orientation: Right; Location: Antecubital; Technique: Anatomical landmarks; Inserted by: ; Insertion Attempts: 3; Removal Date: 05/25/24; Removal Time: 2310; Removal Reason: Infiltrated 05/23/24 0645 by Nataliya Nassar RN 05/25/24 2310 by Gideon Rodríguez RN Peripheral IV Placement Date: 05/23/24; Placement Time: 1145; Catheter Size: 20 G; Orientation: Posterior, Right; Location: Wrist; Site Prep: Alcohol; Technique: Anatomical landmarks; Inserted by: Yann Voss RN; Insertion Attempts: 1; Patient Tolerance: Tolerated well; Removal Date: 05/28/24 05/23/24 1145 by Yuko Voss RN 05/28/24 0000 by Isela Bojorquez RN Urethral Catheter Placement Date: 05/23/24; Placement Time: 1230; Inserted by: Yann Voss RN; Type: Temperature probe; Urine Returned: Yes; Removal Date: 05/26/24; Removal Time: 0600; Removal Reason: Per order 05/23/24 1230 by Yuko Voss RN 05/26/24 0600 by Gideon Rodríguez RN ETT Placement Date: 05/24/24; Placement Time: 0739 (created via procedure documentation); Mask Ventilation: 1; Technique: Direct laryngoscopy; Type: ETT - single; Single Lumen Tube Size: 7.5 mm; Cuffed: Yes; Laryngoscope: Ananda; Blade Size: 3; Location: Oral; Grade View: Grade I; Insertion Attempts: 1; Placement Verification: Auscultation, Capnometry; Airway Comments: Atraumatic. No change to dentition. ; Placed by: ELLI; Removal Date: 05/24/24; Removal Time: 0944 05/24/24 0739 by Anitha Ortiz CRNA 05/24/24 0944 by Anitha Ortiz CRNA documented in this encounter Social History Tobacco Use Types Packs/Day Years [...] any time in the past 12 m [facility], were you homeless or living in a care home (including now)? No 05/24/2024 CAGE ASSESSMENT Answer [...] drink first t michelet in the morning (EYE-PHYSICIAN ADVISOR) to steady your nerves or to get rid of a hangover? 0 09/26/2022 CAGE Questionnaire Score 0 023 Utilities Answer Date Recorded In the past 12 months has e [employer], gas, oil, or water [employer] threatened to shut off services in your home? No 05/24/2024 Comments Unknown Sex and Gender Information Value Date Recorded Sex Assigned at Not on file Legal Sex Female 7:35 PM EDT Gender Identity Not on file Sexual Orientation Not on file documented as of this encounter Functional Status * Calculated C-SSRS Risk Score (Lifetime/Recent) Answer Date of Assessment Author No Risk Indicated 05/23/2024 12:00 PM EDT Yuko Yee RN * Question Answer Date of Assessment Author 1. Wish to be (Past 1 Month) No 05/23/2024 12:00 PM EDT Elías Voss RN 2. Non-Specific Active Suicidal Thoughts (Past 1 Month) No 05/23/2024 12:00 PM EDT Elías Voss RN 6. Suicidal Behavior (Lifetime) No 05/23/2024 12:00 PM EDT Elías Voss RN documented as of this encounter Miscellaneous Notes * Anesthesia Postprocedure Evaluation - Anitha Ortiz CRNA - 05/24/2024 9:57 AM EDT Patient: Kassy Bartlett Anesthesia Type: general Vitals Value Taken Time BP 121/106 05/24/24 09:55 Temp 97.4 05/24/24 09:57 Pulse 67 05/24/24 09:56 Resp 20 05/24/24 09:56 SpO2 99 % 05/24/24 09:56 Vitals shown include unfiled device data. Anesthesia Post Evaluation Patient location during evaluation: PACU Patient participation: complete - patient participated Level of consciousness: awake Pain management: adequate (pain score 0-3) Airway patency: natural airway Cardiovascular status: acceptable and hemodynamically stable Respiratory status: acceptable, face mask, spontaneous ventilation, unassisted and blow-by oxygen Hydration status: acceptable Nausea/Vomiting: No No notable events documented. * Anesthesia Procedure Notes - Anitha Ortiz CRNA - 05/24/2024 8:18 AM EDT Associated Order(s): Airway Airway Date/Time: 05/24/2024 7:39 AM Reason: elective Airway not difficult General Information and Staff Patient location during procedure: OR TRIM SETTER HELPER: Anitha Ortiz CRNA Performed: TRIM SETTER HELPER Patient Condition Indications for airway management: anesthesia Patient position: sniffing Final Airway Details Final airway type: endotracheal airway Successful airway: ETT Cuffed: yes Successful intubation technique: direct laryngoscopy Adjuncts used in placement: intubating stylet Endotracheal tube insertion site: oral Blade: Ananda Blade size: #3 ETT size (mm): 7.5 Cormack-Lehane Classification: grade I - full view of glottis Placement verified by: chest auscultation and capnometry Measured from: lips ETT to lips (cm): 21 Ventilation between attempts: none Additional Comments Atraumatic. No change to dentition. * Anesthesia Preprocedure Evaluation - Pio Méndez MD - 05/23/2024 1:46 PM EDT Images from the original note were not included. Patient: Kassy Bartlett Procedure Information Date/Time: 05/23/24 1420 Procedure: Left Intertroch Intramedullary Nail (Left: Leg Upper) - Supine, Abilio, Hip Bump, Semi-extended Bone Foam, Large C-arm, C-armor, Sterile traction, Ortho soft tissue, Trauma toolbox, Gl[employer] intermediate, 0 Vicryl, 2-0 Vicryl, Annia, Xeroform, 4x4 Covaderm, Wlat Location: [facility] Surgeons: Cornelio Burns MD HPI Kassy Bartlett is a 64 y.o. female with PMHx of CKD, atrial fibrillation on eliquis, COPD (intermittent 2L at baseline), CHF, hypertension, hyperlipidemia that presents with Fall at home, initial encounter resulting in left IT femur fx. Last dose of Eliquis: 05/23/24 NPO STATUS >8hr Activity Level/METS <4 wheelchair bound Relevant Problems Anesthesia (+) Sleep apnea, obstructive Cardio (+) CHF (congestive heart failure) (CMS/HCC) (+) Essential hypertension Endo (+) Diabetes type 2, uncontrolled (+) Type 2 diabetes mellitus without complications GI (+) Cirrhosis (CMS/HCC) (+) GERD (gastroesophageal reflux disease) /Renal (+) RAGHAV (acute kidney injury) (CMS/HCC) (+) CKD (chronic kidney disease) (+) Cirrhosis (CMS/HCC) (+) Hepatitis B (+) Hepatitis C Neuro/Psych (+) TIA (transient ischemic attack) Pulmonary (+) COPD (chronic obstructive pulmonary disease) (CMS/HCC) Musculoskeletal (+) Closed fracture of left hip (CMS/HCC) Endocrine/Metabolic (+) Hyperkalemia SOCIAL HX Tobacco Use History[1] Social History Substance and Sexual Activity Alcohol Use Never Social History Substance and Sexual Activity Drug Use Never SURGICAL HX Surgical History[2] ALLERGIES Allergies[3] MEDICATIONS Scheduled acetaminophen, 650 mg, Oral, q8h bumetanide, 2 mg, Oral, Daily gabapentin, 300 mg, Oral, q8h CHRISTOPHER heparin (porcine), 5,000 Units, Subcutaneous, q8h lactated Ringer's, 500 mL, Intravenous, Once Tiotropium Sheldon Monohydrate, 2 puff, Inhalation, Daily AND mometasone- formoterol, 2 puff, Inhalation, BID mupirocin, 1 Application, Each Nostril, BID [COMPLETED] Insert peripheral IV, , , Once AND [COMPLETED] Saline lock IV, , , Once AND sodium chloride, 10 mL, Intravenous, q12h AND sodium chloride, 10 mL, Intravenous, PRN tranexamic acid, 1,000 mg, Intravenous, Once LABS Labs in last 18 hours CBC WBC 15.26 (H) Hb 11.0 (L) Plt 225 Hct 36.0 ANC ?? INR 1.6 (H), PTT ??, Anti-Xa ?? BMP Na 142 Cl 103 BUN 104 (H) Glu 141 (H) K 5.1 (H) Co2 26 Cr 2.82 (H) Ca 9.1 iCa 4.8 Mg ??, Phos ?? Lactate 0.7 LFT AST 44 (H) AlkPhos 158 (H) T Prot 6.7 ALK 30 Bili 0.4 Alb ?? D.Bili ?? EKG, ECHO, Cath, Imaging, PFTs EKG ECHO Echo, Adult Transthoracic Complete Result Date: 05/23/2024 Left Ventricle: The left ventricle is normal size. There is concentric hypertrophy. The left ventricular systolic function is normal. Biplane EF 66% The left ventricular filling pressure is elevated.Right Ventricle: The right ventricle is normal in size. The right ventricular systolic function is normal. Pericardium: No pericardial effusion. There is no recent study available for direct pphf-mf-dlpm comparison. CXR 05/23 AP view the chest demonstrates similar patchy areas of opacification in the lateral aspect of the right upper lobe and the lateral aspect of the left lung apex compared to the previous exam. There isno new focal opacification. There is no visualized pleural fluid collection or pneumothorax. The cardiac silhouette is stable. An event recorder is positioned over the left hemithorax. No acute bone abnormalities appreciated PFTs Pulmonary Functions Testing Results: No results found for: MFS6XKI , OQU6FNYC , LDQ4JHF , FVCPRED Body mass index is 28.31 kg/m??. Vitals: 05/23/24 1300 BP: (!) 90/47 Pulse: 64 Resp: 21 Temp: 37.2 ??C (99 ??F) SpO2: 92% ROS Anesthesia: Date of last anesthetic: Reports PONV obstructive sleep apnea (does not tolerate cpap) and PONV. Cardiovascular: atrial fibrillation, CHF and hyperlipidemia. hypertension: Respiratory: home oxygen. COPD (wears home O2 as needed. daily inhaler): Pneumonia in the last 30 days. HEENT: Negative HEENT ROS. Neurological: TIA. Musculoskeletal: arthritis. Gastrointestinal: GERD: Genitourinary: chronic renal disease: Hematological/Lymphatic: History of DVT (one year ago). Endocrine/Metabolic: diabetes mellitus. Physical Exam Airway Mallampati: II Mouth opening: normal TM distance: <3 FB Neck ROM: full Cardiovascular Rhythm: regular Rate: normal Dental Pulmonary (+) rhonchi Neurological Oriented: normal to person and normal to place Skin Musculoskeletal Extremities Anesthesia Plan ASA 3 Plan was reviewed with: TRIM SETTER HELPER and resident Anesthesia technique(s) discussed with the patient/family: general Anesthesia plan agreed upon was: general Anesthetic plan and risks discussed with patient. Additional Equipment Requests [1] Social History Tobacco Use Smoking Status Every Day Current packs/day: 1.00 Average packs/day: 1 pack/day for 50.3 years (50.3 ttl pk-yrs) Types: Cigarettes Start date: 1974 Passive exposure: Current Smokeless Tobacco Never [2] Past Surgical History: Procedure Laterality Date APPENDECTOMY N/A CARDIAC STENT N/A CARPAL TUNNEL RELEASE N/A CHOLECYSTECTOMY N/A COLONOSCOPY N/A HYSTERECTOMY N/A LUNG, WEDGE RESECTION N/A THORACOSCOPY N/A TONSILLECTOMY N/A TUBAL LIGATION N/A [3] Allergies Allergen Reactions Acetaminophen-Codeine Swelling Aspirin [...] - please document in the comment field documented in this encounter Plan of Treatment Upcoming Encounters Date Type Department Care Team (Late st Contact Info) Description 08/27/2024 9:30 AM EDT Office Visit [facility] [address] [place] [address] Cornelio Burns MD [address] [place] [address] documented as of this encounter Procedures Procedure Name Priority Date/Time Associated Diagnosis Comments PB ANESTHESIA PLACEHOLDER Routine 05/24/2024 7:39 AM EDT ME AN ELECTIVE ENDOTRACHEAL AIRWAY Routine 05/24/2024 7:39 AM EDT documented in this encounter Results * ME AN ELECTIVE ENDOTRACHEAL AIRWAY, PB ANESTHESIA PLACEHOLDER (05/24/2024 7:39 AM EDT) Narrative Anitha Ortiz CRNA - 05/24/2024 7:39 AM EDT Anitha Ortiz CRNA 05/24/2024 8:20 AM Airway Date/Time: 05/24/2024 7:39 AM Reason: elective Airway not difficult General Information and Staff Patient location during procedure: OR TRIM SETTER HELPER: Anitha Ortiz CRNA Performed: TRIM SETTER HELPER Patient Condition Indications for airway management: anesthesia Patient position: sniffing Final Airway Details Final airway type: endotracheal airway Successful airway: ETT Cuffed: yes Successful intubation technique: direct laryngoscopy Adjuncts used in placement: intubating stylet Endotracheal tube insertion site: oral Blade: Ananda Blade size: #3 ETT size (mm): 7.5 Cormack-Lehane Classification: grade I - full view of glottis Placement verified by: chest auscultation and capnometry Measured from: lips ETT to lips (cm): 21 Ventilation between attempts: none Additional Comments Atraumatic. No change to dentition. us Pio Méndez MD ANESTHESIA ORDERABLES Final Resu lt documented in this encounter Visit Diagnoses Not on filedocumented in this encounter Administered Medications Inactive Administered Medications - up to 3 most recent administrations Medication Order MAR Action Action Date Dose Rate Site albuterol 108 (90 Base) MCG/ACT inhaler Inhalation, As needed, Starting on Maritza 05/24/24 at 0918, Until Maritza 05/24/24 at 0957, Routine, Anesthesia Intraprocedure Given 05/24/2024 9:18 AM EDT 8 puffs clindamycin (Cleocin) IV solution 900 mg 900 mg, Intravenous, Once, 1 dose, On Maritza 05/24/24 at 0800, Routine, Anesthesia Intraprocedure New Bag 05/24/2024 7:58 AM EDT 900 mg dexamethasone (Decadron) injection Intravenous, As needed, Starting on Maritza 05/24/24 at 0832, Until Maritza 05/24/24 at 0957, Routine, Anesthesia Intraprocedure Given 05/24/2024 8:32 AM EDT 8 mg fentaNYL (Sublimaze) injection Intravenous, As needed, Starting on Maritza 05/24/24 at 0732, Until Maritza 05/24/24 at 0957, Routine, Anesthesia Intraprocedure Given 05/24/2024 9:47 AM EDT 25 mcg Given 05/24/2024 9:15 AM EDT 25 mcg Given 05/24/2024 7:32 AM EDT 50 mcg Lidocaine HCl solution prefilled syringe Buccal, As needed, Starting on Maritza 05/24/24 at 0734, Anesthesia Intraprocedure Given 05/24/2024 7:34 AM EDT 60 mg ondansetron (Zofran) injection Intravenous, As needed, Starting on Maritza 05/24/24 at 0917, Until Maritza 05/24/24 at 09, Routine, Anesthesia Intraprocedure Given 05/24/2024 9:17 AM EDT 4 mg phenylephrine 25 mg in NS 250 mL (0.1 mg/mL) infusion (compounding pharmacy premix) Intravenous, Continuous PRN, Starting on Maritza 05/24/24 at 0825, Until Maritza 05/24/24 at 0957, Routine, Anesthesia Intraprocedure Rate/Dose Change 05/24/2024 9:04 AM EDT 0.3 mcg/kg/min 13.5 mL/hr Rate/Dose Change 05/24/2024 8:59 AM EDT 0.4 mcg/kg/min 18 mL/hr Rate/Dose Change 05/24/2024 8:53 AM EDT 0.5 mcg/kg/min 22. 5 mL/hr phenylephrine in NS (David-Synephrine) 100 mcg/mL prefilled syringe Intravenous, As needed, Starting on Maritza 05/24/24 at 0754, Until Maritza 05/24/24 at 0957, Routine, Anesthesia Intraprocedure Given 05/24/2024 8:32 AM EDT 100 mcg Given 05/24/2024 8:23 AM EDT 200 mcg Given 05/24/2024 7:54 AM EDT 200 mcg propofol (Diprivan) injection Intravenous, As needed, Starting on Maritza 05/24/24 at 0734, Until Maritza 05/24/24 at 0957, Routine, Anesthesia Intraprocedure Given 05/24/2024 7:34 AM EDT 140 mg rocuronium (ZeMuron) injection Intravenous, As needed, Starting on Maritza 05/24/24 at 0734, Until Maritza 05/24/24 at 0957, Routine, Anesthesia Intraprocedure Given 05/24/2024 7:34 AM EDT 60 mg sodium chloride 0.9 % infusion Intravenous, Continuous PRN, Starting on Maritza 05/24/24 at 0728, Until Maritza 05/24/24 at 0957, Routine New Bag 05/24/2024 8:46 AM EDT New Bag 05/24/2024 7:28 AM EDT sugammadex (Bridion) 100 MG/ML injection Intravenous, As needed, Starting on Maritza 05/24/24 at 0935, Until Maritza 05/24/24 at 0957, Routine, Anesthesia Intraprocedure Given 05/24/2024 9:43 AM EDT 100 mg Given 05/24/2024 9:35 AM EDT 100 mg tranexamic acid (Cyklokapron) IVPB 1,000 mg 1,000 mg, Intravenous, Once, 1 dose, On Maritza 05/24/24 at 0800, Routine, Anesthesia IntraprocedureIndications:Femur Fracture,Femur Fracture Given 05/24/2024 8:00 AM EDT 1,000 mg documented in this encounter Additional Health Concerns Assessment Noted Time A Body Mass Index follow-up plan has been documented for the patient 06/01/2024 1:33 PM EDT documented as of this encounter Care Teams Fast Food Shift Supervisor Relationship Specialty Start Date End Date Joshua Urban MD [address] [phone] PCP - General 06/27/20 [facility], [place] [id number] Customer Acquisition Specialist [employer] Bottom Maker 10/19/17 documented as of this encounter
--- OUTSIDE RECORDS SUMMARY | 2024-05-24 07:30 | XMS_ITS | Encounter Summary ---
Author Organization Healthcare Address [address] [place] [address] Care Team Providers Care Police Communications Operator Name Role Phone Joshua Urban MD Primary Care Provider [phone] Tri Singletary DIRECTIONAL BORE OPERATOR Unavailable Unavailable Reason for Visit * Reason Comments Fall * Auth/Cert (Routine) Specialty Diagnoses / Procedures Referred By Contac t Referred To Contact Diagnoses Hyperkalemia COPD exacerbation ([facility]) RAGHAV (acute kidney injury) ([facility]) Closed fracture of left hip, initial encounter ([facility]) Fall at home, initial encounter fall - femoral head fx. Hyperkalemia, CKD Rubén Martin MD [address] [facility] [address] [place] [address] Phone: tel: fax: [facility] [address] [place] [address] Phone: tel: Referral ID Status Reason Start Date Expiration Date Visits Re quested Visits Authorized [id number] 1 1 Encounter Details Date Type Department Care Team (Late st Contact Info) Description 05/24/2024 7:30 AM EDT - 05/24/2024 10:35 AM EDT Surgery [facility] [address] [place] [address] Piter Burns MD [address] [facility] [address] [place] [address] Left Intertroch Intramedullary Nail Surgery Details Date/Time Status Location OR Service Patient Class Case Class Case Type Trauma Case? 05/24/2024 7:30 AM Posted NAVIN OR FAISAL OR Rebecca Orthopedic Surgery Inpatient E-Electi ve Panel 1 Procedure LRB Anes Op Region Wound Class Comments Left Intertroch Intramedullary Nail Left General Leg Upper Supine, Abilio, Hip Bump, Semi-extended Bone Foam, Large C-arm, C-armor, Sterile traction, Ortho soft tissue, Trauma toolbox, [employer] intermediate, 0 Vicryl, 2-0 Vicryl, Shila, Xeroform, 4x4 Covaderm, Artur Surgeon Surgeon Role Service Panel Piter Burns MD Primary Orthopedic Surgery 1 Stu Macias MD Resident - Assisting 1 documented in this encounter Social History Tobacco [...] any time in the past 12 [facility], were you homeless or living in a fci (including now)? No 05/24/2024 CAGE ASSESSMENT Answer [...] drink first t michelet in the morning (EYE-CHIEF INTERNAL AUDITOR) to steady your nerves or to get [...] Sign Reading Time Taken Comments Blood Pressure 129/56 05/24/2024 10:30 AM EDT Pulse 74 05/24/2024 10:30 AM EDT Temperature 36.3 C (97.3 F) 05/24/2024 10:30 AM EDT Simultaneous filing. User may not have seen previous data. Respiratory Rate 18 05/24/2024 10:3 0 AM EDT Oxygen Saturation 99% 05/24/2024 10: 30 AM EDT Inhaled Oxygen Concentration - - Weight 75 kg (165 lb 5.5 oz) 05/24/2024 9:50 AM EDT Height 162.6 cm (5' 4.02 ) 05/24/2024 9 :50 AM EDT Body Mass Index 28.37 05/24/2024 9:50 AM [...] Voss RN documented as of this encounter Discharge Instructions * Discharge Instructions* Helena Sharma, MOTOR AND CONTROLS TESTER, DNP - 06/01/2024 1:18 PM EDT DVT [...] please contact the Orthopedic Transition Nurse at [phone] Tuesday through Tuesday 8:00 am to 2:30 [...] APRN @ Orthopaedic Surgery & Sports Medicine; [facility], [address] [place] [address], Wing C, [address], [place] [address], # [phone]. Follow up with trauma clinic as needed. [address] [place] [address] First Floor, Wing [address] [place] [address], #[phone]. Questions or Concerns and Appointments: If there are questions or concerns after discharge from the hospital, please call [phone] and ask for Blue Surgery Nurse. Working hours are Tuesday - Tuesday 8:00 AM to 4:00 PM. After hours, weekends and holidays please call [phone] and ask for the resident rack production worker for Blue Surgery. For appointments please call [phone]. Medication requests should be made between the hours of 9:00 AM to 3:00 PM Tuesday thru Tuesday. Please note that based upon recent changes to [place] law related to prescribing opioid pain medications, [...] every 8 hours for 15 days. Under [place] law, monthly prescriptions (30 days) can be refilled at 25 days and three-month prescriptions (90 days) at 80 days. Please contact the insurance company with questions if refills are denied. 90 tablet 5 06/17/19 25 ergocalciferol (Vitamin D-2) 1.25 MG (78163 UT) capsule Take 1 capsule by mouth [...] (two) times a day. 120 tablet 5 07/02/19 25 documented as of this encounter Miscellaneous Notes * Sophie Walton, CODI - 06/01/2024 1:33 PM EDT Images from the original note were not included. [id number] Oxycodone Brand Name(s): Oxaydo??, Oxycontin??, Roxicodone??, Roxybond??, [...] Substance Abuse and Mental Health Services Administration ([facility]) National Helpline at 2-503-510-IZKM. Oxycodone may cause serious or life-threatening breathing [...] doctor or pharmacist will give you the architecture drafter's patient information sheet (Medication Guide) when you begin your treatment with oxycodone and each time you fill your prescription. Read theinformation carefully and ask your doctor or pharmacist if you have any questions. You can also visit the Food and Drug Administration (FDA) website (https://www.fda.gov/Drugs/DrugSafety/mmr425262.htm) or the architecture drafter's website to obtain the Medication Guide. WHY [...] or herbal products may interact with oxycodone: Haledon's wort and tryptophan. Be sure to let [...] pharmacist for the instructions or visit the architecture drafter's website to get the instructions. If symptoms [...] narrowing or widening of the pupils (dark [place] in the eye) ?? cold, clammy skin [...] of all of the prescription and nonprescription (sswd-dcq-styovpx) medicines you are taking, as well as [...] or pharmacist about specific clinical use. The [place] [employer] represents that the information provided hereunder was formulated with a reasonable standard of care, and in conformity with professional standards in the field. The [place] [employer] makes no representations or warranties, express or implied, including, but not limited to, any implied warranty of merchantability and/or fitness for a particular purpose, with respect to such information and specifically disclaims all such warranties. Users are advised that decisions regarding drug therapy are complex medical decisions requiring the independent, informed decision of an appropriate health career transition specialist, and the information is provided for informational purposes only. The entire monograph for a drug should be reviewed for a thorough understanding of the drug's actions, uses and side effects. The [place] [employer] does not endorse or recommend the use of any drug.The information is not a substitute for medical care. AHFS?? Patient Medication Information?. ?? Copyright, 2023. The [place] [employer]-System Pharmacists??, [address], [address], [place], [place]. All Rights Reserved. Duplication for commercial use must be authorized by [facility]. Selected Revisions: April 29, 2023. AHFS?? Patient Medication Information?. ?? Copyright, 2024 * Kristal SantoFORMERLY [facility] - Sophie Ayala RN - 06/01/2024 1:33 [...] controlled substances: ?? Drug Enforcement Agency ([place]ULISSA): http://www.deadiversion.usdoj.gov/drug_disposal/takeback/index.htm ?? National Association of Drug Diversion Investigators (NADDI): http://rxdrugdropbox.org/ ?? [place] Office of Drug Control Policy: http://odcp.ky.gov/Prescription+Drug+Drop+Box+Sites.htm Are [...] look blue or purple What is a KARTHIKEYAN report? KARTHIKEYAN is a system that tracks prescriptions of controlled substances in [place]. The KARTHIKEYAN report tells your doctor if you have been prescribed controlled substances in the past. Doctors must get a KARTHIKEYAN report before prescribing controlled substances. What can I do if the information in my KARTHIKEYAN report is wrong? You or your doctor may contact the dispenser who reported the information to KARTHIKEYAN. If the dispenser agrees that the information should be changed, he or she can fix the KARTHIKEYAN report. However, the dispenser may certify that the report is correct. If that is the case, you or your doctor may then call the [place] Drug Enforcement and Professional Practices Branch at .This will start an investigation of the error. * Kristal BlanchardFORMERLY [facility] - Sophie Ayala RN - 06/01/2024 1:32 PM EDT Images from the original note were not included. 84222 Washing Your Hands Tlux-mw-Ildg Last Reviewed Date: 2022 00:00:00 ?? 1437-3355 The [employer]. All rights reserved. This information is not intended as a substitute for professional medical care. Always follow your healthcare professional's instructions. * Kristal So - Sophie Ayala RN - 06/01/2024 1:32 PM EDT Images from the original note were not included. 48359 Preventing a Surgical Site Infection A risk [...] of infection. ?? Controlled body temperature. A sqpem-anmh-ynwqdx temperature during or after surgery prevents oxygen [...] and water or with an alcohol-based hand rv body mechanic before and after caring for you. Don?t [...] away. Last Reviewed Date: 2024 00:00:00 ?? 1069-5649 [employer]. All rights reserved. This information is not [...] ?? depression ?? sleep problems * Kristal OnFORMERLY [facility] - Sophie Ayala RN - 06/01/2024 1:32 [...] of your leg. This is also called ?Youyen-ke-Vqb Weight Bearing,? ?Toe-Touch Weight Bearing,? or ?Foot-Flat [...] from the original note were not included. [id number] Fall Prevention Falls often take place due [...] medical history, your current prescriptions and your noaa-gfo-hpfmvqo medicines. As a general rule, the National Eklutna on Aging (NCA) recommends taking one-third of [...] often. Last Reviewed Date: 2024 00:00:00 ?? 4287-3520 The [employer]. All rights reserved. This information is not intended as a substitute for professional medical care. Always follow your healthcare professional's instructions. * Discharge Summary - Helena Sharma Gege, MOTOR AND CONTROLS TESTER, DNP - 06/01/2024 1:18 PM EDT Hospitalization Admit Date/Time: 05/23/2024 6:14 AM Admitting Attending: Rubén Martin Discharge Date: 06/01/2024 Discharge Attending Physician: Ashli Whitaker MD PCP name and Address: Joshua Urban MD (Inactive) [address] [facility] / [place] [address] Referring provider name and address: Chepe Carreno MD [address] [place] [address] Chief Concern, Brief History of Present Illness, [...] for subacute rehab. She will return to [facility] via [facility]. No concerns per [...] stay, and so will be discharged to [facility]. DVT Prophylaxis: Resume home Elichaparrita Procedures: 05/24: ORIF of L IT with [...] please contact the Orthopedic Transition Nurse at [phone] Tuesday through Tuesday 8:00 am to 2:30 [...] APRN @ Orthopaedic Surgery & Sports Medicine; [facility], [address], First Floor, Wing C, [address], [place] [address], # [phone]. Follow up with trauma clinic as needed. [address] [facility] First Floor, Wing [address] [place] [address], #[phone]. Questions or Concerns and Appointments: If there are questions or concerns after discharge from the hospital, please call [phone] and ask for Blue Surgery Nurse. Working hours are Tuesday - Tuesday 8:00 AM to 4:00 PM. After hours, weekends and holidays please call [phone] and ask for the resident rack production worker for Blue Surgery. For appointments please call [phone]. Medication requests should be made between the hours of 9:00 AM to 3:00 PM Tuesday thru Tuesday. Please note that based upon recent changes to [place] law related to prescribing opioid pain medications, [...] every 8 hours for 15 days. Under [place] law, monthly prescriptions (30 days) can be [...] 1 tablet before bedtime. ergocalciferol 1.25 MG (89347 UT) capsule Commonly known as: Vitamin D-2 [...] Ellipta 100-62.5-25 MCG/ACT aerosol powder Generic drug: Qbofimfauoa-Kldrgxgqr-Isizbv Inhale 1 puff every morning. Where to Get Your Medications These medications were sent to [facility] [address] [place] [address] [address] [facility] [place] [address] acetaminophen 325 MG tablet ergocalciferol 1.25 MG (86651 UT) capsule gabapentin 300 MG capsule insulin [...] Resume home meds as appropriate Atrial fibrillation ([facility]/HCC) Overview Addendum 05/30/2024 3:44 PM by Lauren Vanessa PA Resume home meds as appropriate Switched to enoxaparin from subcutaneous heparin d/t downtrending RAGHAV 05/29: Pt went into afib w/ RVR, back into SR ~4 hours later CHF (congestive heart failure) (CMS/HCC) Overview Signed 05/26/2024 12:02 PM by Rukhsana Dawkins APRN Resume home meds as appropriate Cirrhosis ([facility]/HCC) Overview Signed 05/26/2024 12:02 PM by Rukhsana Dawkins APRN Resume home meds as appropriate COPD (chronic obstructive pulmonary disease) ([facility]) Overview Addendum 05/29/2024 10:51 AM by Lauren Vanessa PA On home 2L NC COPD exacerbation tx this hospitalization Prednisone through 05/29 Diabetic neuropathy ([facility]) Overview Signed 05/26/2024 12:00 PM [...] SGT ICU Tertiary, ITSS, AUDIT-C completed 05/24 Uolue-po-duzpuls kidney injury ([facility]) Overview Addendum 05/30/2024 3:49 PM [...] home meds as appropriate 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 Follow up with trauma clinic as needed. [address] [place] [address] First Floor, Wing [address] [place] [address], #[phone]. Questions or Concerns and Appointments: If there are questions or concerns after discharge from the hospital, please call [phone] and ask for Blue Surgery Nurse. Working hours are Tuesday - Tuesday 8:00 AM to 4:00 PM. After hours, weekends and holidays please call [phone] and ask for the resident rack production worker for Blue Surgery. For appointments please call [phone]. Medication requests should be made between the hours of 9:00 AM to 3:00 PM Tuesday thru Tuesday. Please note that based upon recent changes to [place] law related to prescribing opioid pain medications, our providers will not provide refills on controlled medications after your hospital discharge following a major surgery or trauma. [place], [place] 201 KAR9:260. Outpatient Follow-Up Future Appointments Date Time Provider Department Center 06/12/2024 9:30 AM Bing Byers APRN [facility] Test Results Pending At Discharge Pending [...] content normal. Discharge Disposition/Condition Disposition: Nursing facility ([facility]) [facility] Condition: Stable (s/sx potential problems absent or manageable) I spent >30 minutes of patient care and instruction time in preparation for this discharge. Cosigned by Ashli Whitaker MD at 06/03/2024 4:29 PM EDT * Progress Notes - Florecita Suh RN - 06/01/2024 12:10 PM EDT Case Management Discharge Note Kassy Cline 64 y.o. female CSN: [id number] Admission: 05/23/2024 6:14 AM Primary Problem: Fall at home, initial encounter Primary Digital Media Analyst: Primary Caregiver: Self Assistance Available at Discharge: SNF Housing Circumstances-Z Codes: Housing Circumstances (select all that apply): None Applicable Discharge Facility/Level of Care Needs: Discharge Facility/Level of Care Needs: 3-Mcc Facility DME/Equipment Needed after Discharge: Equipment Currently Used at Home: wheelchair, manual, oxygen Medicare Documentation: Medicare Second Notice?: Yes Date Second Notice Completed: 06/01/24 Time Second Notice Completed: 1036 Medicare Second Notice Recieved By: patient Follow-up: [facility] Yancy Moy [phone] Follow up Discharge Transportation: Has discharge transport been arranged?: Yes (caliber stretcher) What day is the transport expected?: 06/01/24 What time is the transport expected?: 1430 Follow Up Transport: Transportation Needed to Follow up Appoinments: Medical Transport Additional Comments: Patient is scheduled 1430 caliber stretcher at bedside going to [facility]. Report: [phone] ext [phone] [facility] Florecita Suh RN * Care Plan [...] Note Kassy Cline 64 y.o. female CSN: [id number] Admission: 05/23/2024 6:14 AM Primary Problem: Fall at home, initial encounter Anticipated Discharge Date: TBD DENEEN left voicemail with admissions and business office at [facility] to confirm patient may return when [...] Airway None Output by Drain (mL) 05/29/24 0700 - 05/29/24 18505/29/24 190 - 05/30/24 0659 05/30/24 07 - 05/30/24 18505/30/24 190 - 05/31/24 0659 05/31/24 07 - 05/31/24 [...] 1x 10mg Lokelma dose for K 5.1 Miksn-cw-pljbziy kidney injury (CMS/HCC) Yes Overview Addendum 05/30/2024 [...] home meds as appropriate Current use of assisted anticoagulation Not Applicable Overview Signed 05/27/2024 11:33 AM by Rukhsana Dawkins APRN Resume home eliquis upon discharge Non-Hospital Problems GERD (gastroesophageal reflux disease) Suicide attempt by drug ingestion, initial encounter ([facility]) Hepatitis B Hepatitis C History [...] 3:49 PM EDT 05/30/24 Kassy Cline HPI Kassy Mary Kate Cline is a 64 y.o. female presenting [...] diet, denies N/V, abd pain. Last BM 4/14. Voiding spontaneously. Increase in WBC, could be [...] (mL) 05/28/24 07 - 05/28/24 1859 05/28/24 190 - 05/29/24 0659 05/29/24 0700 - 05/29/24 [...] as appropriate COPD (chronic obstructive pulmonary disease) ([facility]/HCC) Yes Overview Addendum 05/29/2024 10:51 AM by Lauren Vanessa PA On home 2L NC COPD exacerbation tx this hospitalization Prednisone through 05/29 Diabetic neuropathy ([facility]) Yes Overview Signed 05/26/2024 12:00 [...] 1x 10mg Lokelma dose for K 5.1 Gkrts-vr-vxnxjaf kidney injury ([facility]) Yes Overview Addendum 05/30/2024 3:49 [...] home meds as appropriate Current use of assisted anticoagulation Not Applicable Overview Signed 05/27/2024 11:33 AM by Rukhsana Dawkins APRN Resume home eliquis upon discharge Non-Hospital Problems GERD (gastroesophageal reflux disease) Suicide attempt by drug ingestion, initial encounter ([facility]) Hepatitis B Hepatitis C History [...] Note Kassy Cline 64 y.o. female CSN: [id number] Admission: 05/23/2024 6:14 AM Primary Problem: Fall at home, initial encounter Anticipated Discharge Date: TBD Patient is LTC resident at [facility]. placed call to facility and referral was faxed to [phone]. Subacute recs. Florecita Suh RN * Progress [...] precautions HOME LIVING/SET-UP Lives With Home Type senior care facility (for the last 5 months) Home Equipment Cane, Wheelchair-manual, Rolling walker Home Layout One level Bathroom Layout Standard Additional Comments Getting physical therapy 3x/week at nursing facility. PRIOR LEVEL OF FUNCTION Receives help from Caregiver Level of Mobility Wheelchair/Scooter Mobility [place] Independent wheelchair propulsion History of Falls Yes [...] go to the bathroom. Visitors Present No Water Resource Engineer (if applicable) N/A OBJECTIVE Vital Signs Pre-Session [...] activity throughout session. BED MOBILITY Level of [place] Physical/Non- physical Assist Adaptive Equipment Utilized Rolling/ Turning Scooting/ Bridging Moderate assist (50% patient's effort) (to scoot out to EOB with REGULATORY MANAGER + drawsheet & Depto scoot patient back into recliner chair with drawsheet) Verbal Cues, Additional assist utilized for safety Supine to Sit Minimum assist (75% patient's effort) (for LLE management) Verbal Cues, HOB elevated,Additional assist utilized for safety, Moderate cues Bed rails (extra time) Sit to Supine Interventions TRANSFERS Level of [place] Physical/Non- physical Assist Adaptive Equipment Utilized Sit [...] posture, Forward head, Rounded shoulders Level of [place] Balance Support Interventions Static Sit Standby assist [...] support, Left upper extremity support (RW or REGULATORY MANAGER x 2) Stood at RW while RN cleaned patient up after she had a BM in [facility]. Patient dependent to doff brief once at [facility]. Dynamic Stand Moderate assistance Right upper extremity support, Left upper extremity support (RW) Lateral weight shifts, Anterior/Posterior weight shifts AMBULATION Level of [place] Distance Adaptive Equipment Utilized Ambulation Moderate assistance, [...] chair. Patient did better using RW vs REGULATORY MANAGER x 2. Patient partially met Goal # [...] PM EDT Adult Nutrition Evaluation Note Kassy Mary Kate Cline 64 y.o. female CSN: [id number] Room/Bed 222/222A Nutrition evaluation type: assessment Reason [...] Scale Score: 15 Neymar Scale Score: 14 Abilio/Cubbin Pressure Risk Score: 39 Most Recent BM [...] PA - 05/29/2024 10:49 AM EDT 05/29/24 Kasys Cline [facility] Kassy Cline is a 64 y.o. 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 Not Applicable Overview Signed 05/27/2024 11:33 AM by Rukhsana Dawkins APRN Resume home eliquis upon discharge Closed fracture of left hip (CMS/HCC) Unknown Non-Hospital Problems GERD (gastroesophageal reflux disease) Suicide attempt by drug ingestion, initial encounter ([facility]) Hepatitis B Hepatitis C History [...] appropriate Atrial fibrillation (CMS/HCC) Yes Overview Addendum 05/28/2024 2:49 PM by [...] obstructive pulmonary disease) (CMS/HCC) Yes Overview Addendum 05/28/2024 2:50 PM by [...] on arrival -Continue to monitor, resume home [facility] Owcps-rr-gbyjdgx kidney injury (CMS/HCC) Yes Overview Addendum 05/26/2024 [...] home meds as appropriate Current use of assisted anticoagulation Not Applicable Overview Signed 05/27/2024 11:33 [...] ortho clinic on 06/12; LLE WBAT - [facility] - Aggressive pulmonary hygiene, nebs, IS, Mucinex; AM CXR reviewed - Prednisone for COPD exac complete 05/29 - Glycemic control; increase insulin - Switched to enoxaparin from subcutaneous heparin, will need to resume AC on discharge - HyperK: ordered 1 dose Lokelma - AM labs reviewed, K 5.1; ordered AM labs Edited by: Lauren Vanessa PA at 05/28/2024 1609 AVNI Shields * Progress Notes - Florecita Suh RN - 05/28/2024 1:16 PM EDT Case Management Adult Progress Note Kassy Cline 64 y.o. female CSN: [id number] Admission: 05/23/2024 6:14 AM Primary Problem: Fall at home, initial encounter Anticipated Discharge Date: TBD Subacute recs. Per previous CM note, patient is a LTC resident at [place] and plan is for her to return [...] to not have her again- informed patient TORPEDO SPECIALIST will inform RN to notify Charge Nurse to speak with her regarding her care. TORPEDO SPECIALIST informed RN via secure chat of patient's expressed request. Participants in Care Family/Caregiver Present: No Water Resource Engineer: Not Applicable Presentation Oxygen Therapy: Supplemental oxygen [...] Transfer Exam: Sit to stand Level of [place]: Maximum assist (25% patient's effort) Physical/Nonphysical Assist: Verbal Cues, Nonverbal cues (demo/gestures), Additional assist utilized for safety Assistive Device: Walker, rolling Transfer Exam: Stand to Sit Level of [place]: Maximum assist (25% patient's effort) Physical/Nonphysical Assist: [...] that included visual demonstrations and written instructions. TORPEDO SPECIALIST provided verbal and tactile cues for proper technique and visual demonstration. Patient encouraged to complete HEP below as follows. Therapist ensured patient understood HEP, patient verbalized understanding and returned demonstration. Patient performed x5 reps with AROM. See [employer] HEP below. Access Code: [email or web address] URL: [email or web address] Date: 05/28/2024 Prepared by: [facility] Exercises - Supine Ankle Pumps - 2-3 [...] and AAD 05/25/24 2 weeks Written by aMry Womack on 05/28/24 at 3:16 PM. * Progress Notes - Roc Chavez - 05/28/2024 11:57 AM EDT Occupational Therapy Treatment Patient Name: Kassy Cline Today's Date: 05/28/2024 OT Discharge Recommendations: Subacute rehab Equipment Recommended: Defer to facility Subjective Pt agreeable to OT session this date. Participants in Care Family/Caregiver Present: No Water Resource Engineer: Not Applicable Presentation Oxygen Therapy: Supplemental oxygen [...] Transfer Exam: Sit to stand Level of [place]: Maximum assist (25% patient's effort) Physical/Nonphysical Assist: Verbal Cues, Nonverbal cues (demo/gestures), Additional assist utilized for safety Assistive Device: Walker, rolling Transfer Exam: Stand to Sit Level of [place]: Maximum assist (25% patient's effort) Physical/Nonphysical Assist: [...] 2L NC. Regular diet. Persistent hyperglycemia, prednisone completes4/14. UOP appropriate. Scr down to 1.9 (2.4). On home bumex. K 5.1. Ca repleted overnight. Afebrile. On rocephin for CAP until 05/28. Edited by: Dick Pittman PA at 05/27/2024 0922 Patient Active Problem List Diagnosis Date Noted Current use of assisted anticoagulation 05/27/2024 Acute respiratory failure 05/26/2024 Anxiety and depression 05/26/2024 Type 2 diabetes mellitus 05/25/2024 Closed intertrochanteric fracture of left femur 05/23/2024 Hyperkalemia 05/23/2024 Fall at home, initial encounter 05/23/2024 Mcwyu-lr-gkgmdin kidney injury ([facility]/HCC) 05/23/2024 Frailty 05/23/2024 Gait disturbance 05/23/2024 Suicide attempt by drug ingestion, initial encounter ([facility]) 09/25/2022 Atrial fibrillation ([facility]) 09/25/2022 CHF (congestive heart failure) ([facility]) 09/25/2022 Cirrhosis ([facility]) 09/25/2022 COPD (chronic obstructive pulmonary disease) ([facility]) 09/25/2022 Diabetic neuropathy ([facility]) 09/25/2022 Hepatitis B 09/25/2022 Hepatitis [...] downgrade. * Progress Notes - Rukhsana Dawkins, MOTOR AND CONTROLS TESTER - 05/27/2024 9:22 AM EDT Trauma ICU [...] APRN Resume home meds as appropriate Cirrhosis ([facility]) Yes Overview Signed 05/26/2024 12:02 PM by Rukhsana Dawkins APRN Resume home meds as appropriate COPD (chronic obstructive pulmonary disease) ([facility]) Yes Overview Addendum 05/26/2024 11:56 AM by Rukhsana Dawkins APRN Reportedly on home 2L nasal cannula COPD exacerbation tx this hospitalization Diabetic neuropathy ([facility]) Yes Overview Signed 05/26/2024 12:00 [...] on arrival -Continue to monitor, resume home [facility] Ctstj-yb-lglpnch kidney injury ([facility]) Yes Overview Addendum 05/26/2024 11:54 [...] home meds as appropriate 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 female [...] 2L NC. On home bumex. Last BM TORPEDO SPECIALIST. Tolerating regulardiet. [place] removed early this morning. [...] Output by Drain (mL) 05/24/24 07 - 05/24/24185805/24/241899 - 05/25/24 0659 05/25/24699 - 05/25/24 18505/25/24 190 - 05/26/24 0659 [...] on arrival -Continue to monitor, resume home kelvt Fqybc-op-hbznqxe kidney injury (CMS/HCC) Yes Overview Addendum 05/26/2024 [...] Suicide attempt by drug ingestion, initial encounter ([facility]) Hepatitis B Hepatitis C History [...] We reviewed all pertinent labs, xrays and market intelligence consultant reports and determined a plan of [...] the following orthopedic injuries: Fall: NPO/PMC'd for medical clearance Edited by: Judson Hwang MD [...] to Reverse Trendelenburg. Orthopaedic Trauma Service Pager: [phone] Orthopaedic Recon/Spine/Foot and Ankle Service Pager: [phone] Cosigned by Piter Burns MD at 05/28/2024 [...] ICU Daily Progress Note 05/25/24 Kassy Cline HPI Kassy Cline is a [...] UOP appropriate. Scr 2.44 (2.31). Last BM TORPEDO SPECIALIST. Regular diet, low intake. Hgb 8.7 (10.2). [...] Method: Nasal cannula Output by Drain (mL) 05/23/24699 - 05/23/24185805/23/241899 - 05/24/24 0659 05/24/24 07 - 05/24/24 18505/24/24 190 - [...] around 1.1 COPD (chronic obstructive pulmonary disease) ([facility]) Yes Overview Signed 05/23/2024 9:37 AM by Alexis Ellis DO -Reportedly on home 2L nasal cannula Closed intertrochanteric fracture of left femur Yes Overview Signed 05/23/2024 11:53 AM by Rubén Martin MD Orthopedic surgery consultation Operative repair Hyperkalemia Yes Overview Signed 05/23/2024 7:25 AM by Alexis Ellis DO -5.4 on arrival -Continue to monitor RAGHAV (acute kidney injury) ([facility]) Yes Overview Addendum 05/23/2024 9:38 AM by Alexis Ellis DO -Creatine 2.92 on arrival -Baseline around 1.1 Frailty Yes Overview Signed 05/23/2024 11:51 AM by Rubén Martin MD Weak and wheelchair bound Gait disturbance Yes Type 2 diabetes mellitus Yes Closed fracture of left hip ([facility]) Yes Non-Hospital Problems Essential hypertension Diabetes type 2, uncontrolled GERD (gastroesophageal reflux disease) Vitamin D deficiency Suicide attempt by drug ingestion, initial encounter ([facility]) Anxiety CHF (congestive heart failure) ([facility]/HCC) Cirrhosis ([facility]/HCC) Depression Diabetic neuropathy ([facility]/HCC) Hepatitis B Hepatitis C History of [...] Dick Pittman PA at 05/25/2024 1214 Irene Sparks APRN, DNP Procedures Cosigned by Alex Diaz MD [...] We reviewed all pertinent labs, xrays and market intelligence consultant reports and determined a plan of [...] please contact the Orthopedic Transition Nurse at [phone] Tuesday through Tuesday 8:00 am to 2:30 pm. If you feel your concern is a medical emergency please call 911 immediately. Based upon recent changes to [place] law related to prescribing opioid pain medications, [...] Closed fracture of left hip, initial encounter ([facility]) 2. COPD exacerbation ([facility]) 3. Hyperkalemia 4. RAGHAV (acute kidney injury) ([facility]) Procedures (if applicable) 05/24/2024 Procedure(s): Left Intertroch Intramedullary Nail Past Medical History Patient has a past medical history of Anxiety, Atrial fibrillation ([facility]), CHF (congestive heart failure) ([facility]), Cirrhosis ([facility]), CKD (chronic kidney disease) stage 3,GFR 30-59 ml/min ([facility]), COPD (chronic obstructive pulmonary disease) ([facility]), Depression, Diabetic neuropathy ([facility]), Essential (primary) hypertension, GERD (gastroesophageal [...] Chair since being admitted to the hospital. Water Resource Engineer (if applicable) Not Applicable HOME LIVING/SET-UP Lives With Home Type senior care facility (for the last 5 months) Home Equipment Cane, Wheelchair-manual, Rolling walker Home Layout One level Bathroom Layout Bathroom: Toilet: Standard Additional Comments Getting physical therapy 3x/week at nursing facility. PRIOR LEVEL OF FUNCTION Assist at Home Caregiver Level of Mobility Wheelchair/Scooter Mobility [place] Independent wheelchair propulsion History of Falls Yes [...] Treatment Minutes 23 BED MOBILITY Level of [place] Physical/Non- physical Assist Adaptive Equipment Utilized Scooting/ [...] posture, Forward head, Rounded shoulders Level of [place] Balance Support Interventions Static Sit Dependent Feet [...] climbing 3-5 steps with a railing?: Unable [facility] 6-Clicks Mobility Assessment Total : 6 ASSESSMENT [...] Closed fracture of left hip, initial encounter ([facility]) 2. COPD exacerbation ([facility]) 3. Hyperkalemia 4. RAGHAV (acute kidney injury) ([facility]) Procedures (if applicable) 05/24/2024 Procedure(s): Left Intertroch Intramedullary Nail Past Medical History Patient has a past medical history of Anxiety, Atrial fibrillation ([facility]), CHF (congestive heart failure) ([facility]), Cirrhosis ([facility]), CKD (chronic kidney disease) stage 3,GFR 30-59 ml/min ([facility]), COPD (chronic obstructive pulmonary disease) ([facility]), Depression, Diabetic neuropathy ([facility]), Essential (primary) hypertension, GERD (gastroesophageal [...] from supine to sitting. Visitors Present No Water Resource Engineer (if applicable) N/A PRESENTATION Oxygen Supplemental oxygen [...] applicable) HOME LIVING/SET-UP Lives With Home Type senior care facility (for the last 5 months) Home Equipment Cane, Wheelchair-manual, Rolling walker Home Layout One level Bathroom Layout Bathroom: Toilet: Standard Additional Comments Getting physical therapy 3x/week at nursing facility. PRIOR LEVEL OF FUNCTION Receives help from Caregiver Level of Mobility Wheelchair/Scooter Mobility [place] Independent wheelchair propulsion History of Falls Yes [...] Touch Sensation Intact BED MOBILITY Level of [place] Physical/Non- physical Assist Adaptive Equipment Utilized Scooting/ Bridging Dependent (in supine to scoot up in bed) Verbal Cues, Additional assist utilized for safety Supine to Sit Dependent Verbal Cues, HOB elevated, Additional assist utilized for safety Sit to Supine Dependent Verbal Cues, HOB elevated, Additional assist utilized for safety BALANCE Postural Appearance Posture: Stooped posture, Forward head, Rounded shoulders Level of [place] Balance Support Interventions Static Sit Dependent Feet [...] Trendelenburg. Kenton Garrison MD Orthopaedic Surgery PGY-1 [facility] Orthopaedic Trauma Service Pager: [phone] Orthopaedic Recon/Spine/Foot and Ankle Service Pager: [phone] Personal Pager: [phone] Cosigned by Piter Burns MD at 05/25/2024 [...] Suicide attempt by drug ingestion, initial encounter ([facility]) 09/25/2022 Anxiety 09/25/2022 CHF (congestive heart failure) ([facility] 09/25/2022 Cirrhosis ([facility]) 09/25/2022 COPD (chronic obstructive pulmonary disease) ([facility]) 09/25/2022 Depression 09/25/2022 Diabetic neuropathy ([facility]) 09/25/2022 Hepatitis B 09/25/2022 Hepatitis C 09/25/2022 [...] 2, GFR 60-89 ml/min 02/23/2021 Atrial fibrillation ([facility]) 09/25/2022 Leukocytosis 09/25/2022 Hyperglycemia 09/25/2022 Overdose of undetermined intent Past Medical History: Diagnosis Date CKD (chronic kidney disease) stage 3, GFR 30-59 ml/min ([facility]) Essential (primary) hypertension Past Surgical History: Surgical [...] the morning and 1 capsule beforebedtime. Yes Bveerley Gilmore MD famotidine (Pepcid) 20 MG tablet Take 1 tablet by mouth in the morning and 1 tablet before bedtime.Yes Beverley Gilmore MD Adnjzwshvfb-Monflhazv-Wsxxsh (Trelegy Ellipta) 100-62.5-25 MCG/ACT aerosol powder Inhale [...] needed for shortness of breath. Yes Beverley Gilmore MD isosorbide mononitrate ER (Imdur) 30 MG [...] by mouth 4 (four) times a day. YesProviderBeverley MD polyethylene glycol (Miralax) 17 GM/SCOOP powder [...] 05/23/24 Beverley Gilmore MD Continuous Blood Gluc Sprinkler Worker ([employer] G6 sales team member) device Inject 1 Device under the skin [...] Consult to Trauma Mental Health Professional or Warehouse Laborer 6-9 = Psychiatry Consult Tertiary exam as [...] Tobacco Never * Hospital Course - Helena Sharma APRN, VADIM - 05/24/2024 3:18 PM EDT Kassy [...] for subacute rehab. She will return to [facility] via [facility]. No concerns per [...] stay, and so will be discharged to [facility]. DVT Prophylaxis: Resume home Eliquis Procedures: 05/24: [...] please contact the Orthopedic Transition Nurse at [phone] Tuesday through Tuesday 8:00 am to 2:30 [...] APRN @ Orthopaedic Surgery & Sports Medicine; [facility], [address], First Floor, Wing C, [address], [place] [address], # [phone]. Follow up with trauma clinic as needed. 0 [facility] First Floor, Wing [address] [place] [address], #[phone]. Questions or Concerns and Appointments: If there are questions or concerns after discharge from the hospital, please call [phone] and ask for Blue Surgery Nurse. Working hours are Tuesday - Tuesday 8:00 AM to 4:00 PM. After hours, weekends and holidays please call [phone] and ask for the resident rack production worker for Blue Surgery. For appointments please call [phone]. Medication requests should be made between the hours of 9:00 AM to 3:00 PM Tuesday thru Tuesday. Please note that based upon recent changes to [place] law related to prescribing opioid pain medications, our providers will not provide refills on controlled medications after your hospital discharge following a major surgery or trauma. [place], [place] 201 KAR9:260. * Progress Notes - Belia Diaz P - 05/24/2024 2:33 PM EDT Case Management Adult Initial Progress Note Kassy Cline 64 y.o. female CSN: [id number] Admission: 05/23/2024 6:14 AM Primary Problem: Fall at home, initial encounter Pants Cutter reviewed chart and spoke with patient's brother to complete this Initial Case Management Assessment. PCP: Joshua Urban MD (Inactive) Emergency Contact: Extended Emergency Contact Information Primary Emergency Contact: Sandy Kay Relation: Daughter Water Resource Engineer needed? No Secondary Emergency Contact: Hemant Cline Mobile Relation: Brother Preferred language: Kazakh Water Resource Engineer needed? No Insurance: Primary Visit Coverage Payer Plan Sponsor Code Group Number Group Name MEDICARE MEDICARE A & B Primary Visit Coverage Subscriber Subscriber ID Subscriber Name Subscriber [facility] Subscriber Address [id number] KASSY CLINE [id number] [address] [place] [place] [address] Secondary Visit Coverage Payer Plan Sponsor Code Group Number Group Name MEDICAID-[facility] MEDICAID [facility] Secondary Visit Coverage Subscriber Subscriber ID Subscriber Name Subscriber [facility] Subscriber Address [id number] KASSY CLINE [id number] [place] [address] Patient information: Primary Caregiver: Self Support System: Immediate family Daily Living Activities: Functional Status: Minimum assistance Living Arrangements: [facility] Type of Residence: group home/residential care [address] [place] [address] Smoker in the Home?: N/A Current DME: [...] 3 L oxygen Living Will/Advance Directive/Power of Fireman /Guardian: None reported. Pt's brother stated that [...] Depression: Not At Risk (06/20/2023) Received from [employer] Depression Calculation of above two rows: 0 Utilities: Not At Risk (05/24/2024) Utilities Threatened with loss of utilities: No Stress: No Stress Concern Present (06/20/2023) Received from [employer] Stress Stress means a situation in which [...] No Physical Activity: Inactive (06/20/2023) Received from [employer] Physical Activity Number of minutes of exercise per week : 0 Social Connections: Unknown (06/20/2023) Received from [facility] Family and Community Support If for any [...] Pt's brother stated that 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 Pt's brother sated that he provides transportation for pt. D/C plan is for pt to return back to [place] when medically ready. Pt's daughter's number in chart is a non working number, pt's brother did not have contact info for daughter.Pt went to OR today for operative fixation of the left intertrochanteric femur fracture. Continues in ICU level care. SW/CM will continue to follow for resource needs and dsipo planning. MATTI Ferguson, STOVE MOUNTER Trauma/General Surgery ICU * Progress Notes - Mihaela Patrick, MOTOR AND CONTROLS TESTER - 05/24/2024 2:09 PM EDT Trauma ICU [...] bumex, Scr 2.48, hyperkalemic. Edited by: Mihaela Patrick, MOTOR AND CONTROLS TESTER at 05/24/2024 1400 Relevant review of systems [...] Airway None O2 Delivery Method: Nasal cannula MA SUP: 14 cm H20 Insp Time (sec): 1.2 sec S RR: 10 MA SUP: 14 cm H20 Output by Drain [...] around 1.1 COPD (chronic obstructive pulmonary disease) ([facility]) Yes Overview Signed 05/23/2024 9:37 AM by Alexis Ellis, DO -Reportedly on home 2L nasal cannula Closed intertrochanteric fracture of left femur Yes Overview Signed 05/23/2024 11:53 AM by Ruébn Martin MD Orthopedic surgery consultation Operative repair Hyperkalemia Yes Overview Signed 05/23/2024 7:25 AM by Alexis Ellis, DO -5.4 on arrival -Continue to monitor RAGHAV (acute kidney injury) ([facility]) Yes Overview Addendum 05/23/2024 9:38 AM by Alexis Ellsi, DO -Creatine 2.92 on arrival -Baseline around 1.1 Frailty Yes Overview Signed 05/23/2024 11:51 AM by Rubén Martin MD Weak and wheelchair bound Gait disturbance Yes Closed fracture of left hip (CMS/HCC) Unknown Non-Hospital Problems Essential hypertension Diabetes type 2, uncontrolled GERD (gastroesophageal reflux disease) Vitamin D deficiency Suicide attempt by drug ingestion, initial encounter (CMS/HCC) Anxiety CHF (congestive heart failure) (CMS/HCC) Cirrhosis (CMS/HCC) Depression Diabetic neuropathy (CMS/HCC) Hepatitis B Hepatitis C History of [...] with Azithromycin and Ceftriaxone Edited by: Mihaela Patrick APRN at 05/24/2024 1409 Mihaela Patrick APRN [...] - 05/24/2024 10:34 AM EDT Patient: Kassy J Tri Anesthesia Type: general Vitals Value Taken [...] Agree with above assessment and evaluation from resident/OPERATIONS SUPPORT MANAGER. * Significant Event - Stu Macias MD [...] Medicine First Page: ORF Fracture/Trauma Service Pager: [phone] Second Page/personal: [phone] * Op Note - Piter Burns MD - 05/24/2024 8:09 AM EDT Operative Note Date: 05/24/24 Location: [facility] OR Name: Kassy Cline, : 1960, Diagnoses: Pre-op Diagnosis Left intertrochanteric femur fracture Post-op Diagnosis Left intertrochanteric femur fracture Procedure(s): Open treatment of left intertrochanteric femur fracture with intramedullary nail fixation Attending Surgeon(s): * Piter Burns - Primary. I was present or immediately available for all parts of the procedure Comedian(s): * Stu Macias MD - Resident - [...] 3.2MM GUIDEWIRE THREADED PNT 400MM GLOBUS - [id number] Used, Not Implanted DRILL 3.2MM GUIDEWIRE THREADED PNT 285MM GLOBUS - [id number] Used, Not Implanted BALL-TIP GUIDEWIRE 3.8H0767UV - [id number] Implanted NAIL TI TROCHANTERIC [id number] 125DEG LT - [id number] Implanted Screw SCREW 10.5X85MM AUTOBAHN TI LAG GLOBUS MED - SNA - [id number] Implanted NA Screw SCREW 5X35MM TI AUTOBAHN NATE LOCKING GLOBUS MED - SNA - [id number] Implanted NA Indications: Kassy Cline is an [...] 05/24/2024 8:09 AM EDT Date: 05/24/24 Location: [facility] OR Name: Kassy Cline, : 1960, Diagnoses: Pre-op Diagnosis Left Intertrochanteric Femur Fracture, Closed Post-op Diagnosis Same Procedure(s): Open Treatment of Left Intertrochanteric Femur Fracture with Cephalomedullary Nail, Intermediate Length Attending Surgeon(s): * Piter Burns - Primary Comedian(s): * Stu Macias MD - Resident - [...] 3.2MM GUIDEWIRE THREADED PNT 400MM GLOBUS - [id number] Used, Not Implanted DRILL 3.2MM GUIDEWIRE THREADED PNT 285MM GLOBUS - [id number] Used, Not Implanted BALL-TIP GUIDEWIRE 3.9U5729OW - [id number] Implanted NAIL TI TROCHANTERIC [id number] 125DEG LT - [id number] Implanted Screw SCREW 10.5X85MM AUTOBAHN TI LAG GLOBUS MED - SNA - [id number] Implanted NA Screw SCREW 5X35MM TI AUTOBAHN NATE LOCKING GLOBUS MED - SNA - [id number] Implanted NA Specimen: None Findings: See Operative [...] Piter Burns, Ortho Trauma on 06/11/24 in [facility] Ortho Trauma Submitted by: Stu Macias MD - 05/24/2024 Cosigned by Piter Burns MD at 05/24/2024 [...] Edited by: Judson Hwang MD at 05/23/2024 9331 - patient has been nothing by mouth [...] Trendelenburg. Kenton Garrison MD Orthopaedic Surgery PGY-1 [facility] Orthopaedic Trauma Service Pager: [phone] Orthopaedic Recon/Spine/Foot and Ankle Service Pager: [phone] Personal Pager: [phone] Cosigned by Piter Burns MD at 05/24/2024 [...] Medicine First Page: ORF Fracture/Trauma Service Pager: [phone] Second Page/personal: [phone] * Consults - Manan [...] wheelchair for mobility. She [place] and family reports occasional recreational drug use. [...] Date: 05/23/2024 Arrival Time: 613 Referring Hospital: [facility] [place] [facility] Injury Date: 05/23/2024 Injury Time: Afternoon/evening [...] ml/min (CMS/HCC), COPD (chronic obstructive pulmonary disease) ([facility]/HCC), Depression, Diabetic neuropathy (CMS/HCC), Essential (primary) hypertension, [...] 74.8 kg (165 lb), SpO2 94%. Gaurav Kingman Coma Scale Best Eye Response: Spontaneous Best Verbal Response: Oriented Best Motor Response: Follows commands Kingman Coma Scale Score: 15 Intubated No Recent [...] disease) Overview Addendum 05/23/2024 9:38 AM by Alexis Ellis DO -Previous baseline appears to be around 1.1 Diabetes type 2, uncontrolled GERD (gastroesophageal reflux disease) Vitamin D deficiency Suicide attempt by drug ingestion, initial encounter ([facility]) Anxiety CHF (congestive heart failure) ([facility]) Cirrhosis ([facility]) COPD (chronic obstructive pulmonary disease) ([facility]) Overview Signed 05/23/2024 9:37 AM by Alexis Ellis DO -Reportedly on home 2L nasal cannula Depression Diabetic neuropathy ([facility]) Hepatitis B Hepatitis C History [...] -Continue to monitor RAGHAV (acute kidney injury) ([facility]) Overview Addendum 05/23/2024 9:38 AM [...] Dialysis patient Conversions - Other Father's Sister dbcro-5-dohmkntrazt deficiency Conversions - Other Father's Brother nqrwt-6-jgrtqppagdr deficiency Conversions - Other Cousin vjmur-5-aibuvvwkmze deficiency Cardiac disorder Other COPD Other Diabetes [...] (one) time each day. Continuous Blood Gluc Sprinkler Worker ([employer] G6 sales team member) device Inject 1 Device under the skin [...] Trauma consult after fall approx 18 hours captain/airline pilot to and transfer from referring hospital for definitive care. We reviewed all pertinent labs, xrays and market intelligence consultant reports and determined a plan of [...] Surgery/Trauma/Critical Care * Consults - Bing Byers, MOTOR AND CONTROLS TESTER - 05/23/2024 8:28 AM EDTAssociated Order(s): IP [...] wheelchair for mobility. [place] at baseline. Last Meal: 7 p.m. on [...] Denies Illicit substance use: Denies Lives in [place], [place] Employment Status: Retired ROS: a 14 [...] for Medicine admission. Patient's records are at [facility] [facility]. Likely will need new ECHO if recent ECHO not found in [place]'s records. -FIB ordered. -WB status: NWB LLE -NPO at midnight -hold DVT ppx -recommend tight glycemic control Bing Byers APRN Department of Orthopedic Surgery and Sports Medicine Consult Pager: [phone] Service Pager: [phone] [1] Past Surgical History: Procedure Laterality Date [...] day., Disp: , Rfl: Continuous Blood Gluc Sprinkler Worker ([employer] G6 sales team member) device, Inject 1 Device under the skin [...] positive, pt will require referral to GI. Adriano Edward, TristinD, JONAS Hepatitis C ED Clinical Pharmacist Secure Chat: [facility] ED [facility] SPEC PHARM * Significant Event [...] injuries). Full consult note to follow. Alexa Irving MD Orthopedic Surgery * ED Provider Notes - Trudi Dlea Cruz MD - 05/23/2024 6:14 AM EDT [...] (Not yet assigned) Completed TRUDI DELA CRUZ 05/23/2445 Once Specialty: Orthopaedic Surgery Provider: (Not yet assigned) Canceled JUDSON HWANG 05/23/24844 Inpatient consult to Anesthesia Once Comments: [id number] - Page the Anesthesia Acute Pain Service: [phone]; [phone] - Call the [facility] Identity Management Developer: [phone]. Specialty: Anesthesiology Provider: (Not yet assigned) Acknowledged JUDSON HWANG 05/23/24844 Nursing communication Contact TATYANA to move the patient to 2TU STAR Bed ([phone]) vs PACU Bed ([phone] or if STAR bed is unavailable) based on bed availability and time of day for Fascia-Iliaca Block administration and monitoring. Prioritize Bed... Once Comments: Contact TATYANA to move the patient to 2TU STAR Bed ([phone]) vs PACU Bed ([phone] or if STAR bed is unavailable) based [...] Extra Tubes Once Final result PITER BURNS 05/23/24 0656 Light Green Top PROCEDURE ONCE [...] 1/2 Differentiation Once Final result ALEXA LAWRENCE 05/23/24 0629 ED HIV 1/2 Antibody/Antigen Screen [...] Prothrombin Time/INR Once Final result ALEXA LAWRENCE 05/23/24 0629 Diet effective now Canceled ALEXA [...] Course as of 05/23/24 1034 TueMay 23, [id number] Upon arrival, patient is hemodynamically stable, afebrile, [...] fracture of left hip, initial encounter ([facility]) COPD exacerbation (CMS/HCC) Hyperkalemia RAGHAV (acute kidney injury) (CMS/HCC) Disposition: admit to SICU Social Determinates of Health Risks (including Economic Stability, Education and level of understanding, Healthcare access and quality and concerning social factors): Poor health literacy and Poor social support ED Prescriptions None Disposition Admit Admitting/Attending Physician: RUBÉN MARTIN [[id number]] Provider Care Team: SGT ICU 1 [[id number]] [...] Dialysis patient Conversions - Other Father's Sister efodk-0-cpdidztmgnt deficiency Conversions - Other Father's Brother jxcvk-3-xwptmqdleml deficiency Conversions - Other Cousin ajtxc-5-kkjyqrfhkpa deficiency Cardiac disorder Other COPD Other Diabetes [...] Closed fracture of left hip, initial encounter ([facility]) [J44.1] COPD exacerbation ([facility]) [E87.5] Hyperkalemia [N17.9] RAGHAV (acute kidney injury) ([facility]) I saw and evaluated the [...] Description 08/27/2024 9:30 AM EDT Office Visit [facility] Orthopaedic Surgery & Sports Medicine [address] [place] [address] Piter Burns MD [address] [place] [address] Pending Results Name Type Priority Associated Diagnoses [...] Closed fracture of left hip, initial encounter ([facility]) POTASSIUM, PLASMA Routine 05/24/2024 1:2 [...] Comment 06/01/2024 11:43 AM EDT [facility] Instructional Supervisor ID Dayana Costa 025 11:43 AM EDT HEALTHCARE LAB Device ID [id number] 06/01/2024 11:43 AM EDT HEALTHCARE LAB Specimen Type POC Capillary 06/01/2024 11:43 AM EDT [facility] Blood Capillary blood specimen / Unknown 06/01/2024 11:41 AM EDT 06/01/2024 11:43 AM EDT Ashli Whitaker MD LAB POINT OF CARE TEST DOCKED DEVICE UNSOLICITED RESULTS Final Result [facility] [address] [place] [address] * (ABNORMAL) POCT glucose meter (06/01/2024 7:26 AM EDT) [facility] POCT Glucose 281(H) 74 - 99 mg/dL 06/01/2024 7:27 AM EDT HEALTHCARE LAB Comment:Accuracy of a [...] for testing. Comment 06/01/2024 7:27 AM EDT HEALTHCARE LAB Instructional Supervisor ID Dayana Costa 025 7:27 AM EDT HEALTHCARE LAB Device ID [id number] 06/01/2024 7:27 AM EDT [facility]ALTH[facility]ARE LAB Specimen Type POC Capillary 06/01/2024 7:27 AM EDT [facility] Blood Capillary blood specimen / Unknown 06/01/2024 7:26 AM EDT 06/01/2024 7:27 AM EDT Ashli Whitaker MD LAB POINT OF CARE TEST DOCKED DEVICE UNSOLICITED RESULTS Final Result Performing Organization Address [facility] de Phone Number [facility]ALTH[facility]ARE LAB [address] [place] [address] * (ABNORMAL) POCT glucose meter (05/31/2024 8:16 PM EDT) Pathologist [facility] POCT Glucose 110(H) 74 - 99 mg/dL [...] Comment 05/31/2024 8:18 PM EDT HEALTHCARE LAB Instructional Supervisor ID Radha Albert 05/31/2024 8:18 PM EDT HEALTHCARE LAB Device ID [id number] 05/31/2024 8:18 PM EDT [facility]ALTH[facility]ARE LAB Specimen Type POC Capillary 05/31/2024 8:18 PM EDT [facility] Blood Capillary blood specimen / Unknown 05/31/2024 8:16 PM EDT 05/31/2024 8:18 PM EDT Ashli Whitaker MD LAB POINT OF CARE TEST DOCKED DEVICE UNSOLICITED RESULTS Final Result Performing Organization Address City/[facility] Co de Phone Number [facility] [address] [place] [address] * POCT glucose meter (05/31/2024 4:29 PM EDT) [facility] POCT Glucose 94 74 - 99 [...] Comment 05/31/2024 4:30 PM EDT HEALTHCARE LAB Instructional Supervisor ID Gila Newsome 025 4:30 PM EDT [facility] Device ID [id number] 05/31/2024 4:30 PM EDT [facility] Specimen Type POC Capillary 05/31/2024 4:30 PM EDT [facility] Blood Capillary blood specimen / Unknown 05/31/2024 4:29 PM EDT 05/31/2024 4:30 PM EDT Ashli Whitaker MD LAB POINT OF CARE TEST DOCKED DEVICE UNSOLICITED RESULTS Final Result Performing Organization Address City/[facility] Co de Phone Number [facility]ARE LAB [address] [place] [address] * (ABNORMAL) POCT glucose meter (05/31/2024 11:48 AM EDT) [facility] POCT Glucose 159(H) 74 - 99 mg/dL [...] Comment 05/31/2024 11:50 AM EDT HEALTHCARE LAB Instructional Supervisor ID Gila Newsome 025 11:50 AM EDT HEALTHCARE LAB Device ID [id number] 05/31/2024 11:50 AM EDT HEALTHCARE LAB Specimen Type POC Capillary 05/31/2024 11:50 AM EDT [facility]ALTH[facility]ARE LAB Blood Capillary blood specimen / Unknown 05/31/2024 11:48 AM EDT 05/31/2024 11:50 AM EDT Ashli Whitaker MD LAB POINT OF CARE TEST DOCKED DEVICE UNSOLICITED RESULTS Final Result [facility] [address] [place] [address] * (ABNORMAL) POCT glucose meter (05/31/2024 8:11 AM EDT) [facility] POCT Glucose 247(H) 74 - 99 mg/dL [...] 05/31/2024 8:13 AM EDT [facility] Instructional Supervisor ID Gila Newsome 025 8:13 AM EDT HEALTHCARE LAB Device ID [id number] 05/31/2024 8:13 AM EDT HEALTH[facility]ARE LAB Specimen Type POC Capillary 05/31/2024 8:13 AM EDT [facility]ALTH[facility]ARE [facility] Blood Capillary blood specimen / Unknown 05/31/2024 8:11 AM EDT 05/31/2024 8:13 AM EDT Ashli Whitaker MD LAB POINT OF CARE TEST DOCKED DEVICE UNSOLICITED RESULTS Final Result [facility] [address] [place] [address] * (ABNORMAL) Basic metabolic panel (05/31/2024 4:43 AM EDT) [facility] Glucose, Plasma 142(H) 74 - 99 mg/dL 05/31/2024 6:01 AM EDT [facility] BUN, Plasma 95(H) 8 - 23 mg/dL 05/31/2024 6:01 AM EDT [facility] Creatinine, Plasma 1.99(H) 0.60 - 1.10 mg/dL 05/31/2024 6:01 AM EDT [facility] BUN/Creatinine Ratio 48 05/31/2024 6:01 AM EDT [facility] Sodium, Plasma 139 136 - 145 mmol/L 05/31/2024 6:01 AM EDT [facility] Potassium, Plasma 5.2(H) 3.6 - 4.9 mmol/L 05/31/2024 6:01 AM EDT [facility] Chloride, Plasma 105 97 - 107 mmol/L 05/31/2024 6:01 AM EDT [facility] CO2, Plasma 22 22 - 29 mmol/L 05/31/2024 6:01 AM EDT [facility] Anion Gap 12 6 - 16 mmol/L 05/31/2024 6:01 AM EDT [facility] Total Calcium, Plasma 8.9 8.9 - 10.2 mg/dL 05/31/2024 6:01 AM EDT [facility] eGFRcr 27.8 mL/min/1.7 3m*2 05/31/2024 6:01 AM EDT [facility] Comment:Reported eGFRcr in m L/min/1.73m2 is based the CKD-EPI 2020 equation that does not use a race coefficient. Blood Venous blood specimen / Unknown Venipuncture / Unknown 05/31/2024 4:43 AM EDT 05/31/2024 4:57 AM EDT us Lauren HOLLY LAB BLOOD ORDERABLES Final Resu lt [facility] [address] [place] [address] * (ABNORMAL) CBC W/O Differential (05/31/2024 4:43 AM EDT) WBC Count 14.56(H) 3.70 - 10.30 10*3/uL LAB HEMATOLOGY METHOD 05/31/2024 5:11 AM EDT [facility] RBC Count 3.93 3.90 - 5.20 10*6/uL LAB HEMATOLOGY METHOD 05/31/2024 5:11 AM EDT [facility] HGB 9.8(L) 11.2 - 15.7 g/dL LAB HEMATOLOGY METHOD 05/31/2024 5:11 AM EDT [facility] HCT 32.6(L) 34.0 - 45.0 % LAB HEMATOLOGY METHOD 05/31/2024 5:11 AM EDT [facility] Platelet Count 341 155 - 369 10*3/uL LAB HEMATOLOGY METHOD 05/31/2024 5:11 AM EDT [facility] MCV 83 79 - 98 fL LAB HEMATOLOGY METHOD 05/31/2024 5:11 AM EDT [facility] MCH 24.9(L) 26.0 - 32.0 pg LAB HEMATOLOGY METHOD 05/31/2024 5:11 AM EDT [facility] MCHC 30.1(L) 30.7 - 35.5 g/dL LAB HEMATOLOGY METHOD 05/31/2024 5:11 AM EDT [facility] RDW 17.3(H) 11.5 - 14.5 % LAB HEMATOLOGY METHOD 05/31/2024 5:11 AM EDT [facility] MPV 10.1 8.8 - 12.5 fL LAB HEMATOLOGY METHOD 05/31/2024 5:11 AM EDT [facility] nRBC 0.0 <=0.0 per 100 WBCs LAB HEMATOLOGY METHOD 05/31/2024 5:11 AM EDT [facility] Blood Venous blood specimen / Unknown Venipuncture / Unknown 05/31/2024 4:43 AM EDT 05/31/2024 4:59 AM EDT us Lauren HOLLY LAB BLOOD ORDERABLES Final Resu lt [facility] [address] [place] [address] * (ABNORMAL) POCT glucose meter (05/30/2024 9:18 PM EDT) [facility] POCT Glucose 139(H) 74 - 99 [...] 05/30/2024 9:19 PM EDT [facility] Instructional Supervisor ID Deidra Lee 05/31/19 9:19 PM EDT HEALTHCARE LAB Device ID [id number] 05/30/2024 9:19 PM EDT [facility]ARE [facility] Specimen Type POC Capillary 05/30/2024 9:19 PM EDT [facility] Blood Capillary blood specimen / Unknown 05/30/2024 9:18 PM EDT 05/30/2024 9:19 PM EDT Ashli Whitaker MD LAB POINT OF CARE TEST DOCKED DEVICE UNSOLICITED RESULTS Final Result Performing Organization Address [facility] Co de Phone Number [facility] [address] [place] [address] * POCT glucose meter (05/30/2024 8:26 PM EDT) [facility] POCT Glucose 78 74 - 99 [...] 05/30/2024 8:31 PM EDT [facility] Instructional Supervisor ID Willis Goodson 05/30/2024 8:31 PM EDT HEALTH[facility]ARE LAB Device ID [id number] 05/30/2024 8:31 PM EDT [facility]ARE [facility] Specimen Type POC Capillary 05/30/2024 8:31 PM EDT [facility] Blood Capillary blood specimen / Unknown 05/30/2024 8:26 PM EDT 05/30/2024 8:31 PM EDT Ashli Whitaker MD LAB POINT OF CARE TEST DOCKED DEVICE UNSOLICITED RESULTS Final Result Performing Organization Address [facility] de Phone Number [facility] [address] [place] [address] * (ABNORMAL) POCT glucose meter (05/30/2024 4:34 PM EDT) [facility] POCT Glucose 134(H) 74 - 99 mg/dL [...] 05/30/2024 4:35 PM EDT [facility] Instructional Supervisor ID Janine Francis 05/31/19 4:35 PM EDT [facility] Device ID [id number] 05/30/2024 4:35 PM EDT [facility] Specimen Type POC Capillary 05/30/2024 4:35 PM EDT [facility] Blood Capillary blood specimen / Unknown 05/30/2024 4:34 PM EDT 05/30/2024 4:35 PM EDT Ashli Whitaker MD LAB POINT OF CARE TEST DOCKED DEVICE UNSOLICITED RESULTS Final Result Performing Organization Address City/State/[facility] Co de Phone Number [facility] [address] [place] [address] * (ABNORMAL) POCT glucose meter (05/30/2024 12:23 PM EDT) [facility] POCT Glucose 211(H) 74 - 99 [...] 05/30/2024 12:25 PM EDT [facility] Instructional Supervisor ID Janine Francis 05/31/19 12:25 PM EDT [facility] Device ID [id number] 05/30/2024 12:25 PM EDT [facility] Specimen Type POC Capillary 05/30/2024 12:25 PM EDT [facility] Blood Capillary blood specimen / Unknown 05/30/2024 12:23 PM EDT 05/30/2024 12:25 PM EDT Ashli Whitaker MD LAB POINT OF CARE TEST DOCKED DEVICE UNSOLICITED RESULTS Final Result Performing Organization Address [facility] de Phone Number [facility] [address] [place] [address] * (ABNORMAL) POCT glucose meter (05/30/2024 7:46 [...] Comment 05/30/2024 7:47 AM EDT [facility]ALTH[facility]ARE [facility] Instructional Supervisor ID Janine Francis 05/31/19 7:47 AM EDT HEALTHCARE LAB Device ID [id number] 05/30/2024 7:47 AM EDT [facility] Specimen Type POC Capillary 05/30/2024 7:47 AM EDT [facility] Blood Capillary blood specimen / Unknown 05/30/2024 7:46 AM EDT 05/30/2024 7:47 AM EDT Ashli Whitaker MD LAB POINT OF CARE TEST DOCKED DEVICE UNSOLICITED RESULTS Final Result Performing Organization Address City/[facility] de Phone Number [facility] [address] [place] [address] * (ABNORMAL) POCT glucose meter (05/30/2024 3:14 [...] Comment 05/30/2024 3:15 AM EDT [facility] Instructional Supervisor ID Deidra Lee 05/31/19 25 3:15 AM EDT [facility]ALTH[facility]ARE LAB Device ID [id number] 05/30/2024 3:15 AM EDT [facility] Specimen Type POC Capillary 05/30/2024 3:15 AM EDT [facility] Blood Capillary blood specimen / Unknown 05/30/2024 3:14 AM EDT 05/30/2024 3:15 AM EDT us Ashli Whitaker MD LAB POINT OF CARE TEST DOCKED DEVICE UNSOLICITED RESULTS Final Result [facility] [address] [place] [address] * (ABNORMAL) Basic metabolic panel (05/30/2024 12:03 AM EDT) Glucose, Plasma 255(H) 74 - 99 mg/dL 05/30/2024 12:44 AM EDT [facility] BUN, Plasma 88(H) 8 - 23 mg/dL 05/30/2024 12:44 AM EDT [facility] Creatinine, Plasma 1.48(H) 0.60 - 1.10 mg/dL 05/30/2024 12:44 AM EDT [facility] BUN/Creatinine Ratio 59 05/30/2024 12:44 AM EDT [facility] Sodium, Plasma 141 136 - 145 mmol/L 05/30/2024 12:44 AM EDT [facility] Potassium, Plasma 4.9 3.6 - 4.9 mmol/L 05/30/2024 12:44 AM EDT [facility] Chloride, Plasma 104 97 - 107 mmol/L 05/30/2024 12:44 AM EDT [facility] CO2, Plasma 23 22 - 29 mmol/L 05/30/2024 12:44 AM EDT [facility] Anion Gap 14 6 - 16 mmol/L 05/30/2024 12:44 AM EDT [facility] Total Calcium, Plasma 9.0 8.9 - 10.2 mg/dL 05/30/2024 12:44 AM EDT [facility] eGFRcr 39.6 mL/min/1.7 3m*2 05/30/2024 12:44 AM EDT [facility] Comment:Reported eGFRcr in m L/min/1.73m2 is based the CKD-EPI 2020 equation that does not use a race coefficient. Blood Venous blood specimen / Unknown Venipuncture / Unknown 05/30/2024 12:03 AM EDT 05/30/2024 12:16 AM EDT us Lauren HOLLY LAB BLOOD ORDERABLES Final Resu lt [facility] [address] [place] [address] * (ABNORMAL) CBC W/O Differential (05/30/2024 12:03 AM EDT) WBC Count 15.74(H) 3.70 - 10.30 10*3/uL LAB HEMATOLOGY METHOD 05/30/2024 12:23 AM EDT [facility] RBC Count 3.94 3.90 - 5.20 10*6/uL LAB HEMATOLOGY METHOD 05/30/2024 12:23 AM EDT [facility] HGB 9.9(L) 11.2 - 15.7 g/dL LAB HEMATOLOGY METHOD 05/30/2024 12:23 AM EDT [facility] HCT 31.6(L) 34.0 - 45.0 % LAB HEMATOLOGY METHOD 05/30/2024 12:23 AM EDT [facility] Platelet Count 312 155 - 369 10*3/uL LAB HEMATOLOGY METHOD 05/30/2024 12:23 AM EDT [facility] MCV 80 79 - 98 fL LAB HEMATOLOGY METHOD 05/30/2024 12:23 AM EDT [facility] MCH 25.1(L) 26.0 - 32.0 pg LAB HEMATOLOGY METHOD 05/30/2024 12:23 AM EDT [facility] MCHC 31.3 30.7 - 35.5 g/dL LAB HEMATOLOGY METHOD 05/30/2024 12:23 AM EDT [facility] RDW 17.0(H) 11.5 - 14.5 % LAB HEMATOLOGY METHOD 05/30/2024 12:23 AM EDT [facility] MPV 9.7 8.8 - 12.5 fL LAB HEMATOLOGY METHOD 05/30/2024 12:23 AM EDT [facility] nRBC 0.0 <=0.0 per 100 WBCs LAB HEMATOLOGY METHOD 05/30/2024 12:23 AM EDT [facility] Blood Venous blood specimen / Unknown Venipuncture / Unknown 05/30/2024 12:03 AM EDT 05/30/2024 12:15 AM EDT us Lauren I [employer] PA LAB BLOOD ORDERABLES Final Resu lt Performing Organization Address [facility] Co de Phone Number [facility] [address] [place] [address] * (ABNORMAL) Vitamin D 25 Hydroxy (05/30/2024 12:03 AM EDT) Pathologist [facility] Vitamin D 25 Hydroxy 8.8(L) 20.0 - 80.0 ng/mL 05/30/2024 2:57 AM EDT [facility] Blood Venous blood specimen / Unknown Venipuncture / Unknown 05/30/2024 12:03 AM EDT 05/30/2024 12:16 AM EDT Narrative [facility] - 05/30/2024 2:57 AM EDT Testing performed on [facility] Pulmonologist Intensivist, standardized against NIST SRM 2972. When testing [...] Possible toxicity: >100 ng/mL us Lauren I [employer] PA LAB BLOOD ORDERABLES Final Resu lt Performing Organization Address [facility]/ZIP Co de Phone Number [facility] [address] [place] [address] * (ABNORMAL) POCT glucose meter (05/29/2024 8:14 PM EDT) [facility] POCT Glucose 287(H) 74 - 99 [...] Comment 05/29/2024 8:16 PM EDT HEALTHCARE LAB Instructional Supervisor ID Guicho Lee 05/29/2024 8:16 PM EDT HEALTH[facility]ARE LAB Device ID [id number] 05/29/2024 8:16 PM EDT [facility] Specimen Type POC Capillary 05/29/2024 8:16 PM EDT [facility] Blood Capillary blood specimen / Unknown 05/29/2024 8:14 PM EDT 05/29/2024 8:16 PM EDT Ashli Whitaker MD LAB POINT OF CARE TEST DOCKED DEVICE UNSOLICITED RESULTS Final Result [facility] [address] [place] [address] * (ABNORMAL) POCT glucose meter (05/29/2024 4:49 PM EDT) [facility] POCT Glucose 227(H) 74 - 99 [...] 05/29/2024 4:51 PM EDT [facility] Instructional Supervisor ID Janine Francis 05/30/19 4:51 PM EDT [facility] Device ID [id number] 05/29/2024 4:51 PM EDT [facility] Specimen Type POC Capillary 05/29/2024 4:51 PM EDT [facility] Blood Capillary blood specimen / Unknown 05/29/2024 4:49 PM EDT 05/29/2024 4:51 PM EDT Ashli Whitaker MD LAB POINT OF CARE TEST DOCKED DEVICE UNSOLICITED RESULTS Final Result Performing Organization Address City/State/[facility] Co de Phone Number [facility] [address] [place] [address] * XR Chest 1 View (05/29/2024 12:03 [...] QTC Interval 454 ms MUSE ECG R [place] -19 degrees MUSE ECG T Wave [place] 14 degrees MUSE ECG Diagnosis Atrial fibrillation [...] 0 AM EDT 05/29/2024 1:01 PM EDT Lauren HOLLY ECG ORDERABLES Final Result MUSE ECG * (ABNORMAL) POCT glucose meter (05/29/2024 11:09 AM EDT) POCT Glucose 137(H) 74 - 99 mg/dL [...] 05/29/2024 11:11 AM EDT [facility] Instructional Supervisor ID Janine Francis 05/30/19 11:11 AM EDT [facility] Device ID [id number] 05/29/2024 11:11 AM EDT [facility] Specimen Type POC Capillary 05/29/2024 11:11 AM EDT [facility] Blood Capillary blood specimen / Unknown 05/29/2024 11:09 AM EDT 05/29/2024 11:11 AM EDT Ashli Whitaker MD LAB POINT OF CARE TEST DOCKED DEVICE UNSOLICITED RESULTS Final Result Performing Organization Address [facility] Co de Phone Number [facility] [address] [place] [address] * (ABNORMAL) POCT glucose meter (05/29/2024 7:28 AM EDT) POCT Glucose 261(H) 74 - 99 mg/dL [...] Comment 05/29/2024 7:37 AM EDT [facility]ALTH[facility] Instructional Supervisor ID Tierra Simpson 05/29/2024 7:37 AM EDT HEALTH[facility]ARE LAB Device ID [id number] 05/29/2024 7:37 AM EDT [facility] Specimen Type POC Capillary 05/29/2024 7:37 AM EDT [facility] Blood Capillary blood specimen / Unknown 05/29/2024 7:28 AM EDT 05/29/2024 7:37 AM EDT Ashli Whitaker MD LAB POINT OF CARE TEST DOCKED DEVICE UNSOLICITED RESULTS Final Result Performing Organization Address City/[facility]/ZIP Co de Phone Number [facility] [address] [place] [address] * (ABNORMAL) CBC W/O Differential (05/29/2024 3:50 AM EDT) WBC Count 11.65(H) 3.70 - 10.30 10*3/uL LAB HEMATOLOGY METHOD 05/29/2024 4:06 AM EDT [facility] RBC Count 3.75(L) 3.90 - 5.20 10*6/uL LAB HEMATOLOGY METHOD 05/29/2024 4:06 AM EDT [facility] HGB 9.5(L) 11.2 - 15.7 g/dL LAB HEMATOLOGY METHOD 05/29/2024 4:06 AM EDT [facility] HCT 30.2(L) 34.0 - 45.0 % LAB HEMATOLOGY METHOD 05/29/2024 4:06 AM EDT [facility] Platelet Count 287 155 - 369 10*3/uL LAB HEMATOLOGY METHOD 05/29/2024 4:06 AM EDT [facility] MCV 81 79 - 98 fL LAB HEMATOLOGY METHOD 05/29/2024 4:06 AM EDT [facility] MCH 25.3(L) 26.0 - 32.0 pg LAB HEMATOLOGY METHOD 05/29/2024 4:06 AM EDT [facility] MCHC 31.5 30.7 - 35.5 g/dL LAB HEMATOLOGY METHOD 05/29/2024 4:06 AM EDT [facility] RDW 17.1(H) 11.5 - 14.5 % LAB HEMATOLOGY METHOD 05/29/2024 4:06 AM EDT [facility] MPV 9.8 8.8 - 12.5 fL LAB HEMATOLOGY METHOD 05/29/2024 4:06 AM EDT [facility] nRBC 0.0 <=0.0 per 100 WBCs LAB HEMATOLOGY METHOD 05/29/2024 4:06 AM EDT [facility] Blood Venous blood specimen / Unknown Venipuncture / Unknown 05/29/2024 3:50 AM EDT 05/29/2024 3:58 AM EDT us Lauren HOLLY LAB BLOOD ORDERABLES Final Resu lt [facility] [address] [place] [address] * (ABNORMAL) Basic metabolic panel (05/29/2024 3:50 AM EDT) Glucose, Plasma 221(H) 74 - 99 mg/dL 05/29/2024 4:29 AM EDT [facility] BUN, Plasma 88(H) 8 - 23 mg/dL 05/29/2024 4:29 AM EDT [facility] Creatinine, Plasma 1.39(H) 0.60 - 1.10 mg/dL 05/29/2024 4:29 AM EDT [facility] BUN/Creatinine Ratio 63 05/29/2024 4:29 AM EDT [facility] Sodium, Plasma 140 136 - 145 mmol/L 05/29/2024 4:29 AM EDT [facility] Potassium, Plasma 4.8 3.6 - 4.9 mmol/L 05/29/2024 4:29 AM EDT [facility] Chloride, Plasma 107 97 - 107 mmol/L 05/29/2024 4:29 AM EDT [facility] CO2, Plasma 25 22 - 29 mmol/L 05/29/2024 4:29 AM EDT [facility] Anion Gap 8 6 - 16 mmol/L 05/29/2024 4:29 AM EDT [facility] Total Calcium, Plasma 8.8(L) 8.9 - 10.2 mg/dL 05/29/2024 4:29 AM EDT [facility] eGFRcr 42.7 mL/min/1.7 3m*2 05/29/2024 4:29 AM EDT [facility] Comment:Reported eGFRcr in m L/min/1.73m2 is based the CKD-EPI 2020 equation that does not use a race coefficient. Blood Venous blood specimen / Unknown Venipuncture / Unknown 05/29/2024 3:50 AM EDT 05/29/2024 3:58 AM EDT us Lauren HOLLY LAB BLOOD ORDERABLES Final Resu lt [facility] [address] [place] [address] * (ABNORMAL) POCT glucose meter (05/29/2024 3:35 AM EDT) POCT Glucose 218(H) 74 - 99 mg/dL 05/29/2024 3:37 AM EDT [facility] Comment:Accuracy of a glucos e result [...] Comment 05/29/2024 3:37 AM EDT [facility]ALTHCARE LAB Instructional Supervisor ID Deidra Lee 05/30/19 3:37 AM EDT [facility]ARE LAB Device ID [id number] 05/29/2024 3:37 AM EDT [facility] Specimen Type POC Capillary 05/29/2024 3:37 AM EDT [facility] Blood Capillary blood specimen / Unknown 05/29/2024 3:35 AM EDT 05/29/2024 3:37 AM EDT us Ashli Whitaker MD LAB POINT OF CARE TEST DOCKED DEVICE UNSOLICITED RESULTS Final Result Performing Organization Address City/State/[facility] Co de Phone Number HEALTHCARE LAB [address] [place] [address] * (ABNORMAL) POCT glucose meter (05/28/2024 8:28 PM EDT) [facility] POCT Glucose 256(H) 74 - 99 [...] Comment 05/28/2024 8:31 PM EDT [facility]ARE LAB Instructional Supervisor ID Tamanna Bryant 05/28/2024 8:31 PM EDT [facility] LAB Device ID [id number] 05/28/2024 8:31 PM EDT [facility] Specimen Type POC Capillary 05/28/2024 8:31 PM EDT [facility] Blood Capillary blood specimen / Unknown 05/28/2024 8:28 PM EDT 05/28/2024 8:31 PM EDT us Ashli Whitaker MD LAB POINT OF CARE TEST DOCKED DEVICE UNSOLICITED RESULTS Final Result Performing Organization Address [facility] Co de Phone Number HEALTHCARE LAB [address] [place] [address] * (ABNORMAL) POCT glucose meter (05/28/2024 4:53 PM EDT) [facility] POCT Glucose 317(H) 74 - 99 [...] Comment 05/28/2024 4:54 PM EDT [facility]ARE LAB Instructional Supervisor ID Breeshaenancyalexis Nataliya 05/28/2024 4:54 PM EDT [facility] Device ID [id number] 05/28/2024 4:54 PM EDT [facility] Specimen Type POC Capillary 05/28/2024 4:54 PM EDT [facility] Blood Capillary blood specimen / Unknown 05/28/2024 4:53 PM EDT 05/28/2024 4:54 PM EDT Ashli Whitaker MD LAB POINT OF CARE TEST DOCKED DEVICE UNSOLICITED RESULTS Final Result Performing Organization Address [facility] Co de Phone Number [facility] [address] [place] [address] * (ABNORMAL) POCT glucose meter (05/28/2024 11:21 AM EDT) [facility] POCT Glucose 176(H) 74 - 99 [...] 05/28/2024 11:23 AM EDT [facility] Instructional Supervisor ID Isela Bojorquez 025 11:23 AM EDT HEALTHCARE LAB Device ID [id number] 05/28/2024 11:23 AM EDT [facility] LAB Specimen Type POC Capillary 05/28/2024 11:23 AM EDT [facility] Blood Capillary blood specimen / Unknown 05/28/2024 11:21 AM EDT 05/28/2024 11:23 AM EDT Ashli Whitaker MD LAB POINT OF CARE TEST DOCKED DEVICE UNSOLICITED RESULTS Final Result Performing Organization Address City/[facility] Co de Phone Number [facility]ARE [facility] [address] [place] [address] * (ABNORMAL) POCT glucose meter (05/28/2024 7:39 AM EDT) [facility] POCT Glucose 192(H) 74 - 99 mg/dL 05/28/2024 7:40 AM EDT [facility] Comment:Accuracy of [...] Comment 05/28/2024 7:40 AM EDT [facility]ARE LAB Instructional Supervisor ID Isela Bojorquez 025 7:40 AM EDT [facility]ALTHCARE LAB Device ID [id number] 05/28/2024 7:40 AM EDT [facility] LAB Specimen Type POC Capillary 05/28/2024 7:40 AM EDT [facility] Blood Capillary blood specimen / Unknown 05/28/2024 7:39 AM EDT 05/28/2024 7:40 AM EDT Ashli Whitaker MD LAB POINT OF CARE TEST DOCKED DEVICE UNSOLICITED RESULTS Final Result Performing Organization Address City/[facility]/ZIP Co de Phone Number [facility]ALTHCARE LAB [address] [place] [address] * XR Chest 1 View (05/28/2024 5:58 [...] LAB HEMATOLOGY METHOD 05/28/2024 2:58 AM EDT [facility] Blood Venous blood specimen / Unknown Venipuncture / Unknown 05/28/2024 2:46 AM EDT 05/28/2024 2:57 AM EDT Dick HOLLY LAB BLOOD ORDERABLES Final Res ult [facility] [address] [place] [address] * (ABNORMAL) CBC W/O Differential (05/28/2024 2:46 AM EDT) WBC Count 9.95 3.70 - 10.30 10*3/uL LAB HEMATOLOGY METHOD 05/28/2024 3:06 AM EDT [facility] RBC Count 3.75(L) 3.90 - 5.20 10*6/uL LAB HEMATOLOGY METHOD 05/28/2024 3:06 AM EDT [facility] HGB 9.3(L) 11.2 - 15.7 g/dL LAB HEMATOLOGY METHOD 05/28/2024 3:06 AM EDT [facility] HCT 30.3(L) 34.0 - 45.0 % LAB HEMATOLOGY METHOD 05/28/2024 3:06 AM EDT [facility] Platelet Count 249 155 - 369 10*3/uL LAB HEMATOLOGY METHOD 05/28/2024 3:06 AM EDT [facility] MCV 81 79 - 98 fL LAB HEMATOLOGY METHOD 05/28/2024 3:06 AM EDT [facility] MCH 24.8(L) 26.0 - 32.0 pg LAB HEMATOLOGY METHOD 05/28/2024 3:06 AM EDT [facility] MCHC 30.7 30.7 - 35.5 g/dL LAB HEMATOLOGY METHOD 05/28/2024 3:06 AM EDT [facility] RDW 17.0(H) 11.5 - 14.5 % LAB HEMATOLOGY METHOD 05/28/2024 3:06 AM EDT [facility] MPV 9.9 8.8 - 12.5 fL LAB HEMATOLOGY METHOD 05/28/2024 3:06 AM EDT [facility] nRBC 0.0 <=0.0 per 100 WBCs LAB HEMATOLOGY METHOD 05/28/2024 3:06 AM EDT [facility] Blood Venous blood specimen / Unknown Venipuncture / Unknown 05/28/2024 2:46 AM EDT 05/28/2024 2:57 AM EDT us Dick HOLLY LAB BLOOD ORDERABLES Final Res ult [facility] [address] [place] [address] * (ABNORMAL) Basic Metabolic Panel, Plasma (05/28/2024 2:46 AM EDT) Glucose, Plasma 319(H) 74 - 99 mg/dL 05/28/2024 3:26 AM EDT [facility] BUN, Plasma 97(H) 8 - 23 mg/dL 05/28/2024 3:26 AM EDT [facility] Creatinine, Plasma 1.50(H) 0.60 - 1.10 mg/dL 05/28/2024 3:26 AM EDT [facility] BUN/Creatinine Ratio 65 05/28/2024 3:26 AM EDT [facility] Sodium, Plasma 141 136 - 145 mmol/L 05/28/2024 3:26 AM EDT [facility] Potassium, Plasma 5.1(H) 3.6 - 4.9 mmol/L 05/28/2024 3:26 AM EDT [facility] Chloride, Plasma 104 97 - 107 mmol/L 05/28/2024 3:26 AM EDT [facility] CO2, Plasma 24 22 - 29 mmol/L 05/28/2024 3:26 AM EDT [facility] Anion Gap 13 6 - 16 mmol/L 05/28/2024 3:26 AM EDT [facility] Total Calcium, Plasma 8.6(L) 8.9 - 10.2 mg/dL 05/28/2024 3:26 AM EDT [facility] eGFRcr 39.0 mL/min/1.7 3m*2 05/28/2024 3:26 AM EDT [facility] Comment:Reported eGFRcr in m L/min/1.73m2 is based the CKD-EPI 2020 equation that does not use a race coefficient. Blood Venous blood specimen / Unknown Venipuncture / Unknown 05/28/2024 2:46 AM EDT 05/28/2024 2:58 AM EDT us Dick HOLLY LAB BLOOD ORDERABLES Final Res ult [facility] [address] [place] [address] * (ABNORMAL) POCT glucose meter (05/27/2024 11:29 [...] for testing. Comment 05/27/2024 11:31 PM EDT [facility] Instructional Supervisor ID Ashli Fung 05/28/19 11:31 PM EDT [facility]ALTH[facility]ARE LAB Device ID [id number] 05/27/2024 11:31 PM EDT [facility] LAB Specimen Type POC Capillary 05/27/2024 11:31 PM EDT [facility] Blood Capillary blood specimen / Unknown 05/27/2024 11:29 PM EDT 05/27/2024 11:31 PM EDT Alex Diaz MD LAB POINT OF CARE TE ST DOCKED DEVICE UNSOLICITED RESULTS Final Result Performing Organization Address City/[facility] Co de Phone Number [facility]ARE LAB [address] [place] [address] * (ABNORMAL) POCT glucose meter (05/27/2024 7:58 [...] for testing. Comment 05/27/2024 7:59 PM EDT [facility] Instructional Supervisor ID Ashli Fung 05/28/19 7:59 PM EDT HEALTHCARE LAB Device ID [id number] 05/27/2024 7:59 PM EDT [facility] Specimen Type POC Capillary 05/27/2024 7:59 PM EDT [facility] Blood Capillary blood specimen / Unknown 05/27/2024 7:58 PM EDT 05/27/2024 7:59 PM EDT Alex Diaz MD LAB POINT OF CARE TE ST DOCKED DEVICE UNSOLICITED RESULTS Final Result Performing Organization Address City/[facility] Co de Phone Number [facility] [address] [place] [address] * (ABNORMAL) POCT glucose meter (05/27/2024 4:38 PM EDT) Pathologist [facility] POCT Glucose 164(H) 74 - 99 mg/dL [...] for testing. Comment 05/27/2024 4:40 PM EDT [facility]ARE LAB Instructional Supervisor ID Delma Soriano 025 4:40 PM EDT HEALTH[facility]ARE LAB Device ID [id number] 05/27/2024 4:40 PM EDT [facility] Specimen Type POC Capillary 05/27/2024 4:40 PM EDT [facility] Blood Capillary blood specimen / Unknown 05/27/2024 4:38 PM EDT 05/27/2024 4:40 PM EDT Alex Diaz MD LAB POINT OF CARE TE ST DOCKED DEVICE UNSOLICITED RESULTS Final Result Performing Organization Address City/[facility] Co de Phone Number [facility]ARE LAB [address] [place] [address] * (ABNORMAL) POCT glucose meter (05/27/2024 11:45 AM EDT) [facility] POCT Glucose 218(H) 74 - 99 mg/dL [...] Comment 05/27/2024 11:47 AM EDT [facility] Instructional Supervisor ID Delma Soriano 025 11:47 AM EDT HEALTHCARE LAB Device ID [id number] 05/27/2024 11:47 AM EDT [facility] Specimen Type POC Capillary 05/27/2024 11:47 AM EDT [facility] Blood Capillary blood specimen / Unknown 05/27/2024 11:45 AM EDT 05/27/2024 11:47 AM EDT us Alex Diaz MD LAB POINT OF CARE TE ST DOCKED DEVICE UNSOLICITED RESULTS Final Result Performing Organization Address City/[facility] Co de Phone Number [facility] [address] [place] [address] * (ABNORMAL) POCT glucose meter (05/27/2024 8:52 AM EDT) Pathologist [facility] POCT Glucose 286(H) 74 - 99 mg/dL 05/27/2024 8:54 AM EDT [facility] Comment:Accuracy of [...] Comment 05/27/2024 8:54 AM EDT [facility] Instructional Supervisor ID Delma Soriano Анна 025 8:54 AM EDT [facility] Device ID [id number] 05/27/2024 8:54 AM EDT [facility]ALTH[facility]ARE LAB Specimen Type POC Capillary 05/27/2024 8:54 AM EDT [facility] Blood Capillary blood specimen / Unknown 05/27/2024 8:52 AM EDT 05/27/2024 8:54 AM EDT Alex Diaz MD LAB POINT OF CARE TE ST DOCKED DEVICE UNSOLICITED RESULTS Final Result [facility] [address] [place] [address] * (ABNORMAL) POCT glucose meter (05/27/2024 2:35 AM EDT) [facility] POCT Glucose 364(H) 74 - 99 mg/dL [...] 05/27/2024 2:37 AM EDT [facility] Instructional Supervisor ID Leonard Kadeemcarolina Hawthorne 05/27/2024 2:37 AM EDT [facility] Device ID [id number] 05/27/2024 2:37 AM EDT [facility] Specimen Type POC Capillary 05/27/2024 2:37 AM EDT [facility] Blood Capillary blood specimen / Unknown 05/27/2024 2:35 AM EDT 05/27/2024 2:37 AM EDT us Rubén Martin MD LAB POINT OF CARE TEST DOCKED DEVICE UNSOLICITED RESULTS Final Result Performing Organization Address City/[facility]/ZIP Co de Phone Number [facility] [address] [place] [address] * Lavender Top (05/27/2024 12:46 AM EDT) [facility] Extra Hold for add-ons 05/27/2024 3:23 AM EDT [facility] Comment:Auto resulted. Blood Venous blood specimen / Unknown 05/27/2024 12:46 AM EDT 05/27/2024 12:51 AM EDT Rubén Martin MD LAB BLOOD ORDERABLES Final Result Performing Organization Address City/[facility]/ZIP Co de Phone Number [facility] [address] [place] [address] * (ABNORMAL) Phosphorus, Plasma (05/27/2024 12:46 AM EDT) [facility] Phosphorus, Plasma 4.6(H) 2.5 - 4.5 mg/dL 05/27/2024 1:30 AM EDT [facility] Blood Venous blood specimen / Unknown Venipuncture / Unknown 05/27/2024 12:46 AM EDT 05/27/2024 12:51 AM EDT Rukhsana Dawkins APRN LAB BLOOD ORDERABLES Final Result Performing Organization Address City/[facility]/ZIP Co de Phone Number [facility] [address] [place] [address] * Magnesium, Plasma (05/27/2024 12:46 AM EDT) Pathologist [facility] Magnesium, Plasma 2.1 1.9 - 2.4 mg/dL 05/27/2024 1:30 AM EDT [facility] Blood Venous blood specimen / Unknown Venipuncture / Unknown 05/27/2024 12:46 AM EDT 05/27/2024 12:51 AM EDT [employer] Javi Dawkins [employer] LAB BLOOD ORDERABLES Final Result Performing Organization Address City/[facility]/ZIP Co de Phone Number [facility] [address] [place] [address] * (ABNORMAL) Ionized calcium, whole blood (05/27/2024 12:46 AM EDT) Ionized Calcium, Whole Blood 4.3(L) 4.6 - 5.1 mg/dL LAB HEMATOLOGY METHOD 05/27/2024 12:54 AM EDT [facility] Blood Venous blood specimen / Unknown Venipuncture / Unknown 05/27/2024 12:46 AM EDT 05/27/2024 12:52 AM EDT [employer] Javi Dawkins [employer] LAB BLOOD ORDERABLES Final Result Performing Organization Address City/[facility]/ZIP Co de Phone Number [facility] [address] [place] [address] * (ABNORMAL) Basic Metabolic Panel, Plasma (05/27/2024 12:46 AM EDT) Glucose, Plasma 281(H) 74 - 99 mg/dL 05/27/2024 1:31 AM EDT [facility] BUN, Plasma 105(H) 8 - 23 mg/dL 05/27/2024 1:31 AM EDT [facility] Creatinine, Plasma 1.92(H) 0.60 - 1.10 mg/dL 05/27/2024 1:31 AM EDT [facility] BUN/Creatinine Ratio 55 05/27/2024 1:31 AM EDT [facility] Sodium, Plasma 139 136 - 145 mmol/L 05/27/2024 1:31 AM EDT [facility] Potassium, Plasma 5.1(H) 3.6 - 4.9 mmol/L 05/27/2024 1:31 AM EDT [facility] Chloride, Plasma 103 97 - 107 mmol/L 05/27/2024 1:31 AM EDT [facility] CO2, Plasma 24 22 - 29 mmol/L 05/27/2024 1:31 AM EDT [facility] Anion Gap 12 6 - 16 mmol/L 05/27/2024 1:31 AM EDT [facility] Total Calcium, Plasma 8.4(L) 8.9 - 10.2 mg/dL 05/27/2024 1:31 AM EDT [facility] eGFRcr 29.0 mL/min/1.7 3m*2 05/27/2024 1:31 AM EDT [facility] Comment:Reported eGFRcr in m L/min/1.73m2 is based the CKD-EPI 2020 equation that does not use a race coefficient. Blood Venous blood specimen / Unknown Venipuncture / Unknown 05/27/2024 12:46 AM EDT 05/27/2024 12:51 AM EDT Rukhsana Dawkins [employer] LAB BLOOD ORDERABLES Final Result [facility] [address] [place] [address] * (ABNORMAL) POCT glucose meter (05/26/2024 9:01 PM EDT) POCT Glucose 257(H) 74 - 99 mg/dL [...] for testing. Comment 05/26/2024 9:03 PM EDT [facility]ALTH[facility]ARE LAB Instructional Supervisor ID Leonard Kadeemcarolina Hawthorne 05/26/2024 9:03 PM EDT HEALTH[facility]ARE LAB Device ID [id number] 05/26/2024 9:03 PM EDT [facility] LAB Specimen Type POC Capillary 05/26/2024 9:03 PM EDT [facility] Blood Capillary blood specimen / Unknown 05/26/2024 9:01 PM EDT 05/26/2024 9:03 PM EDT Rubén Martin MD LAB POINT OF CARE TEST DOCKED DEVICE UNSOLICITED RESULTS Final Result Performing Organization Address [facility] de Phone Number HEALTHCARE LAB [address] [place] [address] * (ABNORMAL) POCT glucose meter (05/26/2024 5:39 PM EDT) [facility] POCT Glucose 167(H) 74 - 99 mg/dL [...] for testing. Comment 05/26/2024 5:40 PM EDT [facility]ALTH[facility]ARE LAB Instructional Supervisor ID Trudi Villalobos 05/26/2024 5:40 PM EDT HEALTHCARE LAB Device ID [id number] 05/26/2024 5:40 PM EDT [facility] Specimen Type POC Capillary 05/26/2024 5:40 PM EDT [facility] Blood Capillary blood specimen / Unknown 05/26/2024 5:39 PM EDT 05/26/2024 5:40 PM EDT Rubén Martin MD LAB POINT OF CARE TEST DOCKED DEVICE UNSOLICITED RESULTS Final Result Performing Organization Address City/[facility] Co de Phone Number [facility] [address] [place] [address] * (ABNORMAL) POCT glucose meter (05/26/2024 1:20 PM EDT) [facility] POCT Glucose 278(H) 74 - 99 mg/dL [...] for testing. Comment 05/26/2024 1:21 PM EDT [facility] Instructional Supervisor ID Trudi Villalobos 05/26/2024 1:21 PM EDT HEALTHCARE LAB Device ID [id number] 05/26/2024 1:21 PM EDT [facility]ARE LAB Specimen Type POC Capillary 05/26/2024 1:21 PM EDT [facility] Blood Capillary blood specimen / Unknown 05/26/2024 1:20 PM EDT 05/26/2024 1:21 PM EDT Rubén Martin MD LAB POINT OF CARE TEST DOCKED DEVICE UNSOLICITED RESULTS Final Result [facility] [address] [place] [address] * ECG Adult (05/26/2024 12:38 PM EDT) EKG DIAGNOSIS CLASS Abnormal MUSE ECG Ventricular Rate 129 BPM MUSE ECG QRSD Interval 80 ms MUSE ECG QT Interval 276 ms MUSE ECG QTC Interval 404 ms MUSE ECG R [place] -18 degrees MUSE ECG T Wave [place] 73 degrees MUSE ECG Diagnosis Atrial fibrillation with rapid ventricular response MUSE ECG Diagnosis Abnormal ECG MUSE ECG Diagnosis MUSE ECG Diagnosis Confirmed by Jairon Bruce ([id number]) on 05/27/2024 9:30:09 PM MUSE ECG 05/26/2024 12:3 8 PM EDT 05/27/2024 9:30 PM EDT us Rukhsana Dawkins APRN ECG ORDERABLES Final Resu lt MUSE ECG * (ABNORMAL) POCT glucose meter (05/26/2024 9:11 AM EDT) Pathologist [facility] POCT Glucose 290(H) 74 - 99 mg/dL [...] Comment 05/26/2024 9:13 AM EDT [facility]ALTH[facility]ARE LAB Instructional Supervisor ID Trudi Villalobos 05/26/2024 9:13 AM EDT [facility]ALTH[facility]ARE LAB Device ID [id number] 05/26/2024 9:13 AM EDT [facility]ALTH[facility] LAB Specimen Type POC Capillary 05/26/2024 9:13 AM EDT [facility] Blood Capillary blood specimen / Unknown 05/26/2024 9:11 AM EDT 05/26/2024 9:13 AM EDT Rubén Martin MD LAB POINT OF CARE TEST DOCKED DEVICE UNSOLICITED RESULTS Final Result Performing Organization Address City/State/[facility] de Phone Number HEALTHCARE LAB [address] [place] [address] * XR Chest 1 View (05/26/2024 2:50 [...] - 4.5 mg/dL 05/26/2024 2:23 AM EDT [facility] Blood Venous blood specimen / Unknown Venipuncture / Unknown 05/26/2024 1:34 AM EDT 05/26/2024 1:39 AM EDT Dick HOLLY LAB BLOOD ORDERABLES Final Res ult Performing Organization Address [facility] Co de Phone Number [facility] [address] [place] [address] * Magnesium, Plasma (05/26/2024 1:34 AM EDT) Magnesium, Plasma 2.0 1.9 - 2.4 mg/dL 05/26/2024 2:23 AM EDT [facility] Blood Venous blood specimen / Unknown Venipuncture / Unknown 05/26/2024 1:34 AM EDT 05/26/2024 1:39 AM EDT Dick HOLLY LAB BLOOD ORDERABLES Final Res ult Performing Organization Address City/[facility]/ZIP Co de Phone Number [facility] [address] [place] [address] * (ABNORMAL) CBC W/O Differential (05/26/2024 1:34 AM EDT) WBC Count 10.18 3.70 - 10.30 10*3/uL LAB HEMATOLOGY METHOD 05/26/2024 1:48 AM EDT [facility] RBC Count 3.30(L) 3.90 - 5.20 10*6/uL LAB HEMATOLOGY METHOD 05/26/2024 1:48 AM EDT [facility] HGB 8.3(L) 11.2 - 15.7 g/dL LAB HEMATOLOGY METHOD 05/26/2024 1:48 AM EDT [facility] HCT 27.2(L) 34.0 - 45.0 % LAB HEMATOLOGY METHOD 05/26/2024 1:48 AM EDT [facility] Platelet Count 194 155 - 369 10*3/uL LAB HEMATOLOGY METHOD 05/26/2024 1:48 AM EDT [facility] MCV 82 79 - 98 fL LAB HEMATOLOGY METHOD 05/26/2024 1:48 AM EDT [facility] MCH 25.2(L) 26.0 - 32.0 pg LAB HEMATOLOGY METHOD 05/26/2024 1:48 AM EDT [facility] MCHC 30.5(L) 30.7 - 35.5 g/dL LAB HEMATOLOGY METHOD 05/26/2024 1:48 AM EDT [facility] RDW 17.3(H) 11.5 - 14.5 % LAB HEMATOLOGY METHOD 05/26/2024 1:48 AM EDT [facility] MPV 10.3 8.8 - 12.5 fL LAB HEMATOLOGY METHOD 05/26/2024 1:48 AM EDT [facility] nRBC 0.0 <=0.0 per 100 WBCs LAB HEMATOLOGY METHOD 05/26/2024 1:48 AM EDT [facility] Blood Venous blood specimen / Unknown Venipuncture / Unknown 05/26/2024 1:34 AM EDT 05/26/2024 1:39 AM EDT us Dick HOLLY LAB BLOOD ORDERABLES Final Res ult [facility] [address] [place] [address] * (ABNORMAL) Basic Metabolic Panel, Plasma (05/26/2024 1:34 AM EDT) Glucose, Plasma 353(H) 74 - 99 mg/dL 05/26/2024 2:23 AM EDT [facility] BUN, Plasma 113(H) 8 - 23 mg/dL 05/26/2024 2:23 AM EDT [facility] Creatinine, Plasma 2.42(H) 0.60 - 1.10 mg/dL 05/26/2024 2:23 AM EDT [facility] BUN/Creatinine Ratio 47 05/26/2024 2:23 AM EDT [facility] Sodium, Plasma 136 136 - 145 mmol/L 05/26/2024 2:23 AM EDT [facility] Potassium, Plasma 4.8 3.6 - 4.9 mmol/L 05/26/2024 2:23 AM EDT [facility] Chloride, Plasma 101 97 - 107 mmol/L 05/26/2024 2:23 AM EDT [facility] CO2, Plasma 23 22 - 29 mmol/L 05/26/2024 2:23 AM EDT [facility] Anion Gap 12 6 - 16 mmol/L 05/26/2024 2:23 AM EDT [facility] Total Calcium, Plasma 8.0(L) 8.9 - 10.2 mg/dL 05/26/2024 2:23 AM EDT [facility] eGFRcr 22.0 mL/min/1.7 3m*2 05/26/2024 2:23 AM EDT [facility] Comment:Reported eGFRcr in m L/min/1.73m2 is based the CKD-EPI 2020 equation that does not use a race coefficient. Blood Venous blood specimen / Unknown Venipuncture / Unknown 05/26/2024 1:34 AM EDT 05/26/2024 1:39 AM EDT us [facility] LAB BLOOD ORDERABLES Final Res ult [facility] [address] [place] [address] * (ABNORMAL) POCT glucose meter (05/25/2024 9:09 PM EDT) [facility] POCT Glucose 206(H) 74 - 99 [...] Comment 05/25/2024 9:10 PM EDT [facility] Instructional Supervisor ID Emmanuelle Valle 05/25/2024 9:10 PM EDT [facility] Device ID [id number] 05/25/2024 9:10 PM EDT [facility] Specimen Type POC Capillary 05/25/2024 9:10 PM EDT [facility] Blood Capillary blood specimen / Unknown 05/25/2024 9:09 PM EDT 05/25/2024 9:10 PM EDT Rubén Martin MD LAB POINT OF CARE TEST DOCKED DEVICE UNSOLICITED RESULTS Final Result [facility] [address] [place] [address] * (ABNORMAL) POCT glucose meter (05/25/2024 6:14 PM EDT) [facility] POCT Glucose 299(H) 74 - 99 [...] for testing. Comment 05/25/2024 6:15 PM EDT [facility] Instructional Supervisor ID Trudi Villalobos 05/25/2024 6:15 PM EDT [facility] Device ID [id number] 05/25/2024 6:15 PM EDT [facility] Specimen Type POC Capillary 05/25/2024 6:15 PM EDT [facility] Blood Capillary blood specimen / Unknown 05/25/2024 6:14 PM EDT 05/25/2024 6:15 PM EDT Rubén Martin MD LAB POINT OF CARE TEST DOCKED DEVICE UNSOLICITED RESULTS Final Result Performing Organization Address City/[facility] Co de Phone Number [facility]ARE [facility] [address] [place] [address] * (ABNORMAL) POCT glucose meter (05/25/2024 1:23 [...] Comment 05/25/2024 1:25 PM EDT [facility] Instructional Supervisor ID Trudi Villalobos 05/25/2024 1:25 PM EDT [facility] Device ID [id number] 05/25/2024 1:25 PM EDT [facility] Specimen Type POC Capillary 05/25/2024 1:25 PM EDT [facility] Blood Capillary blood specimen / Unknown 05/25/2024 1:23 PM EDT 05/25/2024 1:25 PM EDT us Rubén Martin MD LAB POINT OF CARE TEST DOCKED DEVICE UNSOLICITED RESULTS Final Result Performing Organization Address City/[facility] Co de Phone Number [facility]ARE [facility] [address] [place] [address] * XR Tibia Fibula Left 2+ Views [...] - 99 mg/dL 05/25/2024 8:11 AM EDT [facility] Comment:Accuracy of a glucos e result [...] Comment 05/25/2024 8:11 AM EDT [facility] Instructional Supervisor ID Trudi Villalobos 05/25/2024 8:11 AM EDT [facility] Device ID [id number] 05/25/2024 8:11 AM EDT [facility] Specimen Type POC Capillary 05/25/2024 8:11 AM EDT [facility] Blood Capillary blood specimen / Unknown 05/25/2024 8:09 AM EDT 05/25/2024 8:11 AM EDT us Rubén Martin MD LAB POINT OF CARE TEST DOCKED DEVICE UNSOLICITED RESULTS Final Result Performing Organization Address City/State/[facility] Co de Phone Number HEALTHCARE LAB [address] [place] [address] * (ABNORMAL) POCT glucose meter (05/25/2024 3:31 AM EDT) [facility] POCT Glucose 157(H) 74 - 99 [...] Comment 05/25/2024 3:32 AM EDT [facility]ALTH[facility]ARE [facility] Instructional Supervisor ID Emmanuelle Valle 05/25/2024 3:32 AM EDT [facility]ALTH[facility] LAB Device ID [id number] 05/25/2024 3:32 AM EDT [facility] Specimen Type POC Capillary 05/25/2024 3:32 AM EDT [facility] Blood Capillary blood specimen / Unknown 05/25/2024 3:31 AM EDT 05/25/2024 3:32 AM EDT us Rubén Martin MD LAB POINT OF CARE TEST DOCKED DEVICE UNSOLICITED RESULTS Final Result [facility] [address] [place] [address] * XR Chest 1 View (05/25/2024 3:09 [...] on the right. No pneumothorax. Procedure Note Moe Osei MD - 05/25/2024 CLINICAL INDICATION: eval [...] Osei MD on 05/25/2024 9:12 AM us Mihaelara Jarvis Patrick [employer] IMG XR PROCEDURES Final R esult * Magnesium, Plasma (05/25/2024 12:25 AM EDT) Magnesium, Plasma 2.1 1.9 - 2.4 mg/dL 05/25/2024 1:09 AM EDT [facility] Blood Venous blood specimen / Unknown Venipuncture / Unknown 05/25/2024 12:25 AM EDT 05/25/2024 12:33 AM EDT Mihaela N Bowling [employer] LAB BLOOD ORDERABLES Taniya l Result Performing Organization Address [facility] Co de Phone Number [facility] [address] [place] [address] * (ABNORMAL) Phosphorus, Plasma (05/25/2024 12:25 AM EDT) Phosphorus, Plasma 5.9(H) 2.5 - 4.5 mg/dL 05/25/2024 1:09 AM EDT [facility] Blood Venous blood specimen / Unknown Venipuncture / Unknown 05/25/2024 12:25 AM EDT 05/25/2024 12:33 AM EDT Mihaela N [employer] LAB BLOOD ORDERABLES Taniya l Result Performing Organization Address [facility] de Phone Number [facility] [address] [place] [address] * (ABNORMAL) Basic metabolic panel (05/25/2024 12:25 AM EDT) Glucose, Plasma 223(H) 74 - 99 mg/dL 05/25/2024 1:09 AM EDT [facility] BUN, Plasma 108(H) 8 - 23 mg/dL 05/25/2024 1:09 AM EDT [facility] Creatinine, Plasma 2.44(H) 0.60 - 1.10 mg/dL 05/25/2024 1:09 AM EDT [facility] BUN/Creatinine Ratio 44 05/25/2024 1:09 AM EDT [facility] Sodium, Plasma 140 136 - 145 mmol/L 05/25/2024 1:09 AM EDT [facility] Potassium, Plasma 4.6 3.6 - 4.9 mmol/L 05/25/2024 1:09 AM EDT [facility] Chloride, Plasma 103 97 - 107 mmol/L 05/25/2024 1:09 AM EDT [facility] CO2, Plasma 22 22 - 29 mmol/L 05/25/2024 1:09 AM EDT [facility] Anion Gap 15 6 - 16 mmol/L 05/25/2024 1:09 AM EDT [facility] Total Calcium, Plasma 8.2(L) 8.9 - 10.2 mg/dL 05/25/2024 1:09 AM EDT [facility] eGFRcr 21.7 mL/min/1.7 3m*2 05/25/2024 1:09 AM EDT [facility] Comment:Reported eGFRcr in m L/min/1.73m2 is based the CKD-EPI 2020 equation that does not use a race coefficient. Blood Venous blood specimen / Unknown Venipuncture / Unknown 05/25/2024 12:25 AM EDT 05/25/2024 12:33 AM EDT us Piter Burns MD LAB BLOOD ORDERABLES Final Re sult [facility] [address] [place] [address] * (ABNORMAL) CBC (05/25/2024 12:25 AM EDT) WBC Count 14.10(H) 3.70 - 10.30 10*3/uL LAB HEMATOLOGY METHOD 05/25/2024 12:45 AM EDT [facility] RBC Count 3.38(L) 3.90 - 5.20 10*6/uL LAB HEMATOLOGY METHOD 05/25/2024 12:45 AM EDT [facility] HGB 8.7(L) 11.2 - 15.7 g/dL LAB HEMATOLOGY METHOD 05/25/2024 12:45 AM EDT [facility] HCT 28.4(L) 34.0 - 45.0 % LAB HEMATOLOGY METHOD 05/25/2024 12:45 AM EDT [facility] Platelet Count 179 155 - 369 10*3/uL LAB HEMATOLOGY METHOD 05/25/2024 12:45 AM EDT [facility] MCV 84 79 - 98 fL LAB HEMATOLOGY METHOD 05/25/2024 12:45 AM EDT [facility] MCH 25.7(L) 26.0 - 32.0 pg LAB HEMATOLOGY METHOD 05/25/2024 12:45 AM EDT [facility] MCHC 30.6(L) 30.7 - 35.5 g/dL LAB HEMATOLOGY METHOD 05/25/2024 12:45 AM EDT [facility] RDW 17.6(H) 11.5 - 14.5 % LAB HEMATOLOGY METHOD 05/25/2024 12:45 AM EDT [facility] MPV 10.2 8.8 - 12.5 fL LAB HEMATOLOGY METHOD 05/25/2024 12:45 AM EDT [facility] nRBC 0.0 <=0.0 per 100 WBCs LAB HEMATOLOGY METHOD 05/25/2024 12:45 AM EDT [facility] Blood Venous blood specimen / Unknown Venipuncture / Unknown 05/25/2024 12:25 AM EDT 05/25/2024 12:33 AM EDT us Piter Burns MD LAB BLOOD ORDERABLES Final Re sult [facility] [address] [place] [address] * (ABNORMAL) POCT glucose meter (05/24/2024 9:20 [...] Comment 05/24/2024 9:21 PM EDT [facility] Instructional Supervisor ID Emmanuelle Valle [employer] 05/24/2024 9:21 PM EDT [facility] Device ID [id number] 05/24/2024 9:21 PM EDT [facility] Specimen Type POC Capillary 05/24/2024 9:21 PM EDT [facility] Blood Capillary blood specimen / Unknown 05/24/2024 9:20 PM EDT 05/24/2024 9:21 PM EDT Rubén Martin MD LAB POINT OF CARE TEST DOCKED DEVICE UNSOLICITED RESULTS Final Result Performing Organization Address City/[facility]/ZIP Co de Phone Number [facility]ALTH[facility]ARE [facility] [address] [place] [address] * (ABNORMAL) POCT glucose meter (05/24/2024 6:27 [...] Comment 05/24/2024 6:29 PM EDT [facility] Instructional Supervisor ID Bernie Amato 05/24/2024 6:29 PM EDT HEALTH[facility]ARE LAB Device ID [id number] 05/24/2024 6:29 PM EDT [facility] Specimen Type POC Capillary 05/24/2024 6:29 PM EDT [facility] Blood Capillary blood specimen / Unknown 05/24/2024 6:27 PM EDT 05/24/2024 6:29 PM EDT Rubén Martin MD LAB POINT OF CARE TEST DOCKED DEVICE UNSOLICITED RESULTS Final Result [facility] [address] [place] [address] * Magnesium (05/24/2024 11:42 AM EDT) Magnesium, Plasma 1.9 1.9 - 2.4 mg/dL 05/24/2024 12:41 PM EDT [facility] Blood Venous blood specimen / Unknown Venipuncture / Unknown 05/24/2024 11:42 AM EDT 05/24/2024 12:06 PM EDT Mihaelaamparo Patrick [employer] LAB BLOOD ORDERABLES Taniya l Result Performing Organization Address [facility]/ZIP Co de Phone Number [facility] [address] [place] [address] * (ABNORMAL) Phosphorus (05/24/2024 11:42 AM EDT) Phosphorus, Plasma 6.5(H) 2.5 - 4.5 mg/dL 05/24/2024 12:41 PM EDT [facility] Blood Venous blood specimen / Unknown Venipuncture / Unknown 05/24/2024 11:42 AM EDT 05/24/2024 12:06 PM EDT Mihaelaamparo Patrick [employer] LAB BLOOD ORDERABLES Taniya l Result Performing Organization Address [facility] Co de Phone Number [facility] [address] [place] [address] * (ABNORMAL) Basic metabolic panel (05/24/2024 11:42 AM EDT) Glucose, Plasma 223(H) 74 - 99 mg/dL 05/24/2024 12:41 PM EDT [facility] BUN, Plasma 104(H) 8 - 23 mg/dL 05/24/2024 12:41 PM EDT [facility] Creatinine, Plasma 2.31(H) 0.60 - 1.10 mg/dL 05/24/2024 12:41 PM EDT [facility] BUN/Creatinine Ratio 45 05/24/2024 12:41 PM EDT [facility] Sodium, Plasma 144 136 - 145 mmol/L 05/24/2024 12:41 PM EDT [facility] Potassium, Plasma 5.5(H) 3.6 - 4.9 mmol/L 05/24/2024 12:41 PM EDT [facility] Chloride, Plasma 107 97 - 107 mmol/L 05/24/2024 12:41 PM EDT [facility] CO2, Plasma 22 22 - 29 mmol/L 05/24/2024 12:41 PM EDT [facility] Anion Gap 15 6 - 16 mmol/L 05/24/2024 12:41 PM EDT [facility] Total Calcium, Plasma 8.3(L) 8.9 - 10.2 mg/dL 05/24/2024 12:41 PM EDT [facility] eGFRcr 23.2 mL/min/1.7 3m*2 05/24/2024 12:41 PM EDT [facility] Comment:Reported eGFRcr in m L/min/1.73m2 is based the CKD-EPI 2020 equation that does not use a race coefficient. Blood Venous blood specimen / Unknown Venipuncture / Unknown 05/24/2024 11:42 AM EDT 05/24/2024 12:06 PM EDT us Mihaela Patrick [employer] LAB BLOOD ORDERABLES Taniya suárez Result [facility] [address] [place] [address] * (ABNORMAL) CBC W/O Differential (05/24/2024 11:42 AM EDT) WBC Count 15.11(H) 3.70 - 10.30 10*3/uL LAB HEMATOLOGY METHOD 05/24/2024 12:29 PM EDT [facility] RBC Count 4.09 3.90 - 5.20 10*6/uL LAB HEMATOLOGY METHOD 05/24/2024 12:29 PM EDT [facility] HGB 10.2(L) 11.2 - 15.7 g/dL LAB HEMATOLOGY METHOD 05/24/2024 12:29 PM EDT [facility] HCT 34.8 34.0 - 45.0 % LAB HEMATOLOGY METHOD 05/24/2024 12:29 PM EDT [facility] Platelet Count 195 155 - 369 10*3/uL LAB HEMATOLOGY METHOD 05/24/2024 12:29 PM EDT [facility] MCV 85 79 - 98 fL LAB HEMATOLOGY METHOD 05/24/2024 12:29 PM EDT [facility] MCH 24.9(L) 26.0 - 32.0 pg LAB HEMATOLOGY METHOD 05/24/2024 12:29 PM EDT [facility] MCHC 29.3(L) 30.7 - 35.5 g/dL LAB HEMATOLOGY METHOD 05/24/2024 12:29 PM EDT [facility] RDW 17.5(H) 11.5 - 14.5 % LAB HEMATOLOGY METHOD 05/24/2024 12:29 PM EDT [facility] MPV 10.3 8.8 - 12.5 fL LAB HEMATOLOGY METHOD 05/24/2024 12:29 PM EDT [facility] nRBC 0.0 <=0.0 per 100 WBCs LAB HEMATOLOGY METHOD 05/24/2024 12:29 PM EDT [facility] Blood Venous blood specimen / Unknown Venipuncture / Unknown 05/24/2024 11:42 AM EDT 05/24/2024 12:17 PM EDT us Mihaela Patrick [employer] LAB BLOOD ORDERABLES Taniya suárez Result [facility] [address] [place] [address] * (ABNORMAL) POCT glucose meter (05/24/2024 11:10 AM EDT) POCT Glucose 167(H) 74 - 99 mg/dL [...] Comment 05/24/2024 11:13 AM EDT [facility]ALTH[facility] Instructional Supervisor ID Bernie Amato 05/24/2024 11:13 AM EDT [facility]ALTH[facility]ARE [facility] Device ID [id number] 05/24/2024 11:13 AM EDT [facility] Specimen Type POC Capillary 05/24/2024 11:13 AM EDT [facility] Blood Capillary blood specimen / Unknown 05/24/2024 11:10 AM EDT 05/24/2024 11:13 AM EDT Rubén Martin MD LAB POINT OF CARE TEST DOCKED DEVICE UNSOLICITED RESULTS Final Result [facility] [address] [place] [address] * XR Hip Left 2 or 3 [...] Comment 05/24/2024 10:13 AM EDT [facility] Instructional Supervisor ID Danita Sierra 05/25/19 10:13 AM EDT [facility]ALTH[facility] LAB Device ID [id number] 05/24/2024 10:13 AM EDT [facility] Specimen Type POC Capillary 05/24/2024 10:13 AM EDT [facility] Blood Capillary blood specimen / Unknown 05/24/2024 10:10 AM EDT 05/24/2024 10:13 AM EDT Rubén Martin MD LAB POINT OF CARE TEST DOCKED DEVICE UNSOLICITED RESULTS Final Result Performing Organization Address City/[facility]/ZIP Co de Phone Number [facility] [address] [place] [id number] * [place] Less than 1 Hour Intraoperative [...] - 4.9 mmol/L 05/24/2024 1:50 AM EDT [facility] Blood Venous blood specimen / Unknown Venipuncture / Unknown 05/24/2024 1:21 AM EDT 05/24/2024 1:28 AM EDT us Ronald HOLLY LAB BLOOD ORDERABLES Final R esult Performing Organization Address [facility] [place] [place] [address] * Blood Culture (Aerobic/Anaerobet Set) (05/24/2024 12:25 AM EDT) Culture No growth at day 5 GARRISON 05/29/2024 2:02 AM EDT [facility] Blood Venous blood specimen / Unknown Venipuncture / Unknown 05/24/2024 12:25 AM EDT 05/24/2024 1:30 AM EDT us Ronald HOLLY LAB MICROBIOLOGY - GENERAL O RDERABLES Final Result Performing Organization Address [facility] [place] [address] * (ABNORMAL) N-Terminal Probnp, Plasma (05/24/2024 12:17 AM EDT) N-Terminal, PROBNP, Plasma 1,091(H) 0 - 899 pg/mL 05/24/2024 1:04 AM EDT [facility] Blood Venous blood specimen / Unknown Venipuncture / Unknown 05/24/2024 12:17 AM EDT 05/24/2024 12:34 AM EDT us Ronald HOLLY LAB BLOOD ORDERABLES Final R esult Performing Organization Address [facility] [place] [address] * Magnesium, Plasma (05/24/2024 12:17 AM EDT) Pathologist [facility] Magnesium, Plasma 2.0 1.9 - 2.4 mg/dL 05/24/2024 1:04 AM EDT [facility] Blood Venous blood specimen / Unknown Venipuncture / Unknown 05/24/2024 12:17 AM EDT 05/24/2024 12:34 AM EDT Irene Sparks [employer], DNP LAB BLOOD ORDERABLES F inal Result [facility] [address] [place] [address] * (ABNORMAL) CBC W/O Differential (05/24/2024 12:17 AM EDT) [facility] WBC Count 17.42(H) 3.70 - 10.30 10*3/uL LAB HEMATOLOGY METHOD 05/24/2024 1:05 AM EDT [facility] RBC Count 4.38 3.90 - 5.20 10*6/uL LAB HEMATOLOGY METHOD 05/24/2024 1:05 AM EDT [facility] HGB 11.2 11.2 - 15.7 g/dL LAB HEMATOLOGY METHOD 05/24/2024 1:05 AM EDT [facility] HCT 36.3 34.0 - 45.0 % LAB HEMATOLOGY METHOD 05/24/2024 1:05 AM EDT [facility] Platelet Count 212 155 - 369 10*3/uL LAB HEMATOLOGY METHOD 05/24/2024 1:05 AM EDT [facility] MCV 83 79 - 98 fL LAB HEMATOLOGY METHOD 05/24/2024 1:05 AM EDT [facility] MCH 25.6(L) 26.0 - 32.0 pg LAB HEMATOLOGY METHOD 05/24/2024 1:05 AM EDT [facility] MCHC 30.9 30.7 - 35.5 g/dL LAB HEMATOLOGY METHOD 05/24/2024 1:05 AM EDT [facility] RDW 17.5(H) 11.5 - 14.5 % LAB HEMATOLOGY METHOD 05/24/2024 1:05 AM EDT [facility] MPV 10.8 8.8 - 12.5 fL LAB HEMATOLOGY METHOD 05/24/2024 1:05 AM EDT [facility] nRBC 0.0 <=0.0 per 100 WBCs LAB HEMATOLOGY METHOD 05/24/2024 1:05 AM EDT [facility] Blood Venous blood specimen / Unknown Venipuncture / Unknown 05/24/2024 12:17 AM EDT 05/24/2024 12:38 AM EDT us Irene Sparks [employer], DNP LAB BLOOD ORDERABLES F inal Result [facility] [address] [place] [address] * (ABNORMAL) Basic Metabolic Panel, Plasma (05/24/2024 12:17 AM EDT) Glucose, Plasma 125(H) 74 - 99 mg/dL 05/24/2024 1:04 AM EDT [facility] BUN, Plasma 104(H) 8 - 23 mg/dL 05/24/2024 1:04 AM EDT [facility] Creatinine, Plasma 2.48(H) 0.60 - 1.10 mg/dL 05/24/2024 1:04 AM EDT [facility] BUN/Creatinine Ratio 42 05/24/2024 1:04 AM EDT [facility] Sodium, Plasma 142 136 - 145 mmol/L 05/24/2024 1:04 AM EDT [facility] Potassium, Plasma 5.8(H) 3.6 - 4.9 mmol/L 05/24/2024 1:04 AM EDT [facility] Comment:Hemolyzed, result ma y be falsely increased. Chloride, Plasma 103 97 - 107 mmol/L 05/24/2024 1:04 AM EDT [facility] CO2, Plasma 24 22 - 29 mmol/L 05/24/2024 1:04 AM EDT [facility] Anion Gap 15 6 - 16 mmol/L 05/24/2024 1:04 AM EDT [facility] Total Calcium, Plasma 9.1 8.9 - 10.2 mg/dL 05/24/2024 1:04 AM EDT [facility] eGFRcr 21.3 mL/min/1.7 3m*2 05/24/2024 1:04 AM EDT [facility] Comment:Reported eGFRcr in m L/min/1.73m2 is based the CKD-EPI 2020 equation that does not use a race coefficient. Blood Venous blood specimen / Unknown Venipuncture / Unknown 05/24/2024 12:17 AM EDT 05/24/2024 12:34 AM EDT Irene Sparks APRN, VADIM LAB BLOOD ORDERABLES F inal Result Performing Organization Address City/[facility]/ZIP Co de Phone Number [facility] [address] [place] [address] * (ABNORMAL) Phosphorus, Plasma (05/24/2024 12:17 AM EDT) Phosphorus, Plasma 5.4(H) 2.5 - 4.5 mg/dL 05/24/2024 1:04 AM EDT [facility] Blood Venous blood specimen / Unknown Venipuncture / Unknown 05/24/2024 12:17 AM EDT 05/24/2024 12:34 AM EDT Irene Sparks APRN, VADIM LAB BLOOD ORDERABLES F inal Result Performing Organization Address City/[facility]/ZIP Co de Phone Number [facility] [address] [place] [address] * (ABNORMAL) Prothrombin Time/INR (05/24/2024 12:17 AM EDT) Prothrombin Time 18.7(H) 12.0 - 14.3 sec LAB COAGULATION METHOD 05/24/2024 12:57 AM EDT [facility] INR 1.5(H) 0.9 - 1.1 LAB COAGULATION METHOD 05/24/2024 12:57 AM EDT [facility] Blood Venous blood specimen / Unknown Venipuncture / Unknown 05/24/2024 12:17 AM EDT 05/24/2024 12:34 AM EDT Narrative [facility] - 05/24/2024 12:57 AM EDT OPTIMAL INR RANGES FOR PATIENT ON ORAL ANTICOAGULANT THERAPY Prevention of venous thromboembolism INR 2.0 to 3.0 In patients with heart disease: Atrial fibrillation INR 2.0 to 3.0 Valvular heart disease INR 2.0 to 3.0 Tissue heart valves INR 2.0 to 3.0 Mechanical prosthetic valves INR 2.5 to 3.5 Prevention of recurrent MN INR 2.5 to 3.5 us Bing Byers [employer] LAB BLOOD ORDERABLES Final Result [facility] [address] [place] [address] * XR Chest 1 View (05/23/2024 11:44 [...] Low Molecular Weight (05/23/2024 2:25 PM EDT) [facility] Anti Xa Level Low Molecular Weight Heparin >2.00(HH) <2.00 IU/mL LAB COAGULATION METHOD 05/23/2024 3:24 PM EDT [facility] Blood Venous blood specimen / Unknown Venipuncture / Unknown 05/23/2024 2:25 PM EDT 05/23/2024 2:34 PM EDT Narrative [facility] - 05/23/2024 3:24 PM EDT Therapeutic Range: LMWH enoxaparin 1mg/kg/dose, 12hrs - peak (3-5 hours after dose): 0.5 - 1.0 IU/mL LMWH enoxaparin 1.5mg/kg/dose, 24hrs - peak (3-5 hours after dose): 1.0 - 2.0 IU/mL LMWH enoxaparin prophylaxis: Not established us Mihaela Patrick [employer] LAB BLOOD ORDERABLES Taniya suárez Result [facility] [address] [place] [address] * (ABNORMAL) Renal function panel (05/23/2024 1:24 PM EDT) [facility] Glucose, Plasma 128(H) 74 - 99 mg/dL 05/23/2024 2:19 PM EDT [facility] BUN, Plasma 105(H) 8 - 23 mg/dL 05/23/2024 2:19 PM EDT [facility] Creatinine, Plasma 2.68(H) 0.60 - 1.10 mg/dL 05/23/2024 2:19 PM EDT [facility] BUN/Creatinine Ratio 39 05/23/2024 2:19 PM EDT [facility] Sodium, Plasma 142 136 - 145 mmol/L 05/23/2024 2:19 PM EDT [facility] Potassium, Plasma 5.1(H) 3.6 - 4.9 mmol/L 05/23/2024 2:19 PM EDT [facility] Chloride, Plasma 105 97 - 107 mmol/L 05/23/2024 2:19 PM EDT [facility] CO2, Plasma 25 22 - 29 mmol/L 05/23/2024 2:19 PM EDT [facility] Anion Gap 12 6 - 16 mmol/L 05/23/2024 2:19 PM EDT [facility] Total Calcium, Plasma 8.9 8.9 - 10.2 mg/dL 05/23/2024 2:19 PM EDT [facility] Phosphorus, Plasma 5.9(H) 2.5 - 4.5 mg/dL 05/23/2024 2:19 PM EDT [facility] Albumin, Plasma 3.1(L) 3.5 - 5.2 g/dL 05/23/2024 2:19 PM EDT [facility] eGFRcr 19.4 mL/min/1.7 3m*2 05/23/2024 2:19 PM EDT [facility] Comment:Reported eGFRcr in m L/min/1.73m2 is based the CKD-EPI 2020 equation that does not use a race coefficient. Blood Venous blood specimen / Unknown Venipuncture / Unknown 05/23/2024 1:24 PM EDT 05/23/2024 1:42 PM EDT Irene Sparks APRN, DNP LAB BLOOD ORDERABLES F inal Result [facility] [address] [place] [address] * (ABNORMAL) POCT arterial blood gas gem (05/23/2024 1:17 PM EDT) pH, Arterial 7.41 7.31 - 7.42 05/23/2024 1:19 PM EDT [facility] pCO2, Arterial 45 35 - 48 mm Hg 05/23/2024 1:19 PM EDT [facility] pO2, Arterial 58(LL) >80 mm Hg 05/23/2024 1:19 PM EDT [facility] SO2, Arterial 92(L) 94 - 98 % 05/23/2024 1:19 PM EDT [facility] FIO2 32.0 % 05/23/2024 1:19 PM EDT [facility] Base Excess, Arterial 3.4(H) -2 - 3 mmol/L 05/23/2024 1:19 PM EDT [facility] HCO3, Arterial 28.5(H) 22 - 26 mmol/L 05/23/2024 1:19 PM EDT [facility] Total Hemoglobin, Arterial, Whole Blood 9.3(L) 11.2 - 15.7 g/dL 05/23/2024 1:19 PM EDT [facility] Hematocrit, Arterial 28.0(L) 34.0 - 45.0 % 05/23/2024 1:19 PM EDT [facility] Sodium, Arterial 136 136 - 145 mmol/L 05/23/2024 1:19 PM EDT [facility] Potassium, Arterial 4.7 3.6 - 4.9 mmol/L 05/23/2024 1:19 PM EDT [facility] Chloride, Whole Blood 107 97 - 107 mmol/L 05/23/2024 1:19 PM EDT [facility] Glucose, Arterial 128(H) 74 - 99 mg/dL 05/23/2024 1:19 PM EDT [facility] Ionized Calcium, Arterial 5.0 4.6 - 5.1 mg/dL 05/23/2024 1:19 PM EDT [facility] Lactate, Arterial 0.7 0.5 - 1.6 mmol/L 05/23/2024 1:19 PM EDT [facility] Body Temperature 37.2 Celsius 05/23/2024 1:19 PM EDT [facility] pH, Temp Corrected, Arterial 7.41 7.31 - 7.42 05/23/2024 1:19 PM EDT [facility] pCO2, Temp Corrected, Arterial 45 35 - 48 mm Hg 05/23/2024 1:19 PM EDT [facility] pO2, Temp Corrected, Arterial 59(LL) >80 mm Hg 05/23/2024 1:19 PM EDT [facility] Instructional Supervisor ID [email or web address] [place] 05/23/2024 1:19 PM EDT [facility] Acknowledged, Notified By AKIN 05/23/2024 1:19 PM EDT [facility] Critical Notify Time 1318 05/23/2024 1:19 PM EDT [facility] Critical Readback Y 05/23/2024 1:19 PM EDT [facility] Blood, Arterial Whole blood specimen / Unknown 05/23/2024 1:17 PM EDT 05/23/2024 1:19 PM EDT us Rubén Martin MD LAB POINT OF CARE TEST DOCKED DEVICE UNSOLICITED RESULTS Final Result Performing Organization Address City/[facility] Co de Phone Number [facility] [address] [place] [address] * Cale auris Surveillance Culture (05/23/2024 12:00 PM EDT) Culture No growth 05/26/2024 6:04 AM EDT [facility] Swab (Axilla and Groin) Non-blood Collection / Unknown 05/23/2024 12:00 PM EDT 05/23/2024 12:08 PM EDT us Rubén Martin MD LAB MICROBIOLOGY - GENERAL ORDERABLES Final Result Performing Organization Address [facility] Co de Phone Number [facility] [address] [place] [address] * (ABNORMAL) Cale auris Surveillance by PCR (05/23/2024 12:00 PM EDT) Cale auris PCR Result Invalid(A ) Not Detected 05/24/2024 11:37 AM EDT [facility] Swab (Axilla and Groin) Non-blood Collection / Unknown 05/23/2024 12:00 PM EDT 05/23/2024 12:08 PM EDT Narrative [facility] - 05/24/2024 11:37 AM EDT This PCR assay was developed and its performance characteristics determined by [facility] as appropriate for clinical purposes. This assay has not been cleared or approved by the FDA, but is performed in a CLIA regulated laboratory that is qualified to perform high-complexity testing. us Rubén Martin MD LAB MICROBIOLOGY - GENERAL ORDERABLES Final Result Performing Organization Address [facility] Co de Phone Number [facility] [address] [place] [address] * Multi Drug Resistance Test (05/23/2024 12:00 PM EDT) Culture No Multi Drug Resistant Organisms Isolated 05/24/2024 11:44 AM EDT [facility] Swab (Nares and Andreia Rectal) Non-blood Collection / Unknown 05/23/2024 12:00 PM EDT 05/23/2024 12:08 PM EDT us Rubén Martin MD LAB MICROBIOLOGY - GENERAL ORDERABLES Final Result [facility] [address] [place] [address] * ECHO, ADULT TRANSTHORACIC COMPLETE (05/23/2024 11:53 [...] is no recent study available for direct [id number] comparison. Left Ventricle The left ventricle is [...] is no recent study available for direct [id number] comparison. us Bing Byers APRN CV ECHO PROCEDURES Final R esult * (ABNORMAL) POCT glucose meter (05/23/2024 11:08 AM EDT) POCT Glucose 147(H) 74 - 99 mg/dL 05/23/2024 11:10 AM EDT [facility] Comment:Accuracy of a glucos e result [...] Comment 05/23/2024 11:10 AM EDT [facility] Instructional Supervisor ID Miriam Jackson 05/23/2024 11:10 AM EDT [facility] Device ID [id number] 05/23/2024 11:10 AM EDT [facility] Specimen Type POC Capillary 05/23/2024 11:10 AM EDT [facility] Blood Capillary blood specimen / Unknown 05/23/2024 11:08 AM EDT 05/23/2024 11:10 AM EDT Rubén Martin MD LAB POINT OF CARE TEST DOCKED DEVICE UNSOLICITED RESULTS Final Result [facility] [address] [place], [place] [id number] * (ABNORMAL) Comprehensive metabolic panel (05/23/2024 10:56 AM EDT) Glucose, Plasma 141(H) 74 - 99 mg/dL 05/23/2024 11:18 AM EDT [facility] BUN, Plasma 104(H) 8 - 23 mg/dL 05/23/2024 11:18 AM EDT [facility] Creatinine, Plasma 2.82(H) 0.60 - 1.10 mg/dL 05/23/2024 11:18 AM EDT [facility] BUN/Creatinine Ratio 37 05/23/2024 11:18 AM EDT [facility] Sodium, Plasma 142 136 - 145 mmol/L 05/23/2024 11:18 AM EDT [facility] Potassium, Plasma 5.1(H) 3.6 - 4.9 mmol/L 05/23/2024 11:18 AM EDT [facility] Chloride, Plasma 103 97 - 107 mmol/L 05/23/2024 11:18 AM EDT [facility] CO2, Plasma 26 22 - 29 mmol/L 05/23/2024 11:18 AM EDT [facility] Anion Gap 13 6 - 16 mmol/L 05/23/2024 11:18 AM EDT [facility] Total Calcium, Plasma 9.1 8.9 - 10.2 mg/dL 05/23/2024 11:18 AM EDT [facility] Total Protein 6.7 6.3 - 7.9 g/dL 05/23/2024 11:18 AM EDT [facility] Albumin, Plasma 3.2(L) 3.5 - 5.2 g/dL 05/23/2024 11:18 AM EDT [facility] AST, Plasma 44(H) 10 - 35 U/L 05/23/2024 11:18 AM EDT [facility] ALT, Plasma 30 10 - 35 U/L 05/23/2024 11:18 AM EDT [facility] Alkaline Phosphatase, Plasma 158(H) 46 - 142 U/L 05/23/2024 11:18 AM EDT [facility] Total Bilirubin, Plasma 0.4 0.2 - 1.1 mg/dL 05/23/2024 11:18 AM EDT [facility] eGFRcr 18.3 mL/min/1.7 3m*2 05/23/2024 11:18 AM EDT [facility] Comment:Reported eGFRcr in m L/min/1.73m2 is based the CKD-EPI 2020 equation that does not use a race coefficient. Blood Venous blood specimen / Unknown Venipuncture / Unknown 05/23/2024 10:56 AM EDT 05/23/2024 10:59 AM EDT us Bing Byers [employer] LAB BLOOD ORDERABLES Final Result [facility] [address] [place] [address] * Ammonia, Plasma (05/23/2024 10:56 AM EDT) Ammonia 18 11 - 51 umol/L 05/23/2024 11:31 AM EDT [facility] Comment:Improper specimen whittaker ndling may falsely increase results. Blood Venous blood specimen / Unknown Venipuncture / Unknown 05/23/2024 10:56 AM EDT 05/23/2024 11:05 AM EDT us Bing Byers [employer] LAB BLOOD ORDERABLES Final Result [facility] [address] [place] [address] * (ABNORMAL) Blood gas, venous (05/23/2024 10:56 AM EDT) pH, Venous 7.29(L) 7.32 - 7.43 LAB HEMATOLOGY METHOD 05/23/2024 11:01 AM EDT [facility] pCO2, Venous 59(H) 37 - 52 mmHg LAB HEMATOLOGY METHOD 05/23/2024 11:01 AM EDT [facility] pO2, Venous 40 25 - 40 mmHg LAB HEMATOLOGY METHOD 05/23/2024 11:01 AM EDT [facility] SO2, Measured, Venous 69 65 - 80 % LAB HEMATOLOGY METHOD 05/23/2024 11:01 AM EDT [facility] Base Excess, Venous 0.7 -2.0 - 3.0 mmol/L LAB HEMATOLOGY METHOD 05/23/2024 11:01 AM EDT [facility] Bicarbonate, Calculated, Venous 28(H) 22 - 26 mmol/L LAB HEMATOLOGY METHOD 05/23/2024 11:01 AM EDT [facility] Hematocrit, Whole Blood 31.1(L) 34.0 - 45.0 % LAB HEMATOLOGY METHOD 05/23/2024 11:01 AM EDT [facility] Sodium, Whole Blood 142 136 - 145 mmol/L LAB HEMATOLOGY METHOD 05/23/2024 11:01 AM EDT [facility] Potassium, Whole Blood 4.8 3.6 - 4.9 mmol/L LAB HEMATOLOGY METHOD 05/23/2024 11:01 AM EDT [facility] Chloride, Whole Blood 105 97 - 107 mmol/L LAB HEMATOLOGY METHOD 05/23/2024 11:01 AM EDT [facility] Glucose, Whole Blood 134(H) 74 - 99 mg/dL LAB HEMATOLOGY METHOD 05/23/2024 11:01 AM EDT [facility] Lactate, Venous, Whole Blood 0.7 0.5 - 2.2 mmol/L LAB HEMATOLOGY METHOD 05/23/2024 11:01 AM EDT [facility] Ionized Calcium, Whole Blood 4.8 4.6 - 5.1 mg/dL LAB HEMATOLOGY METHOD 05/23/2024 11:01 AM EDT [facility] Blood Venous blood specimen / Unknown Venipuncture / Unknown 05/23/2024 10:56 AM EDT 05/23/2024 10:59 AM EDT us Rubén Martin MD LAB BLOOD ORDERABLES Final Result [facility] [address] [place] [address] * XR Chest 1 View (05/23/2024 8:00 [...] MD on 05/23/2024 8:37 AM us Piter Bursn MD IMG XR PROCEDURES Final Resul t [...] Bernice Guajardo MD on 05/23/2024 8:37 AM Piter Burns MD IMG XR PROCEDURES [...] 7.8(H) <5.7 % 05/23/2024 5:13 PM EDT [facility] Blood Venous blood specimen / Unknown Venipuncture / Unknown 05/23/2024 6:52 AM EDT 05/23/2024 6:54 AM EDT Narrative [facility] - 05/23/2024 5:13 PM EDT HA1C Interpretive Data: Diagnosis of Diabetes: Diabetic > or = 6.5% Pre-diabetic 5.7 to 6.4% Non-diabetic < or = 5.6% Glycemic Targets for Type I and Type II Diabetics: Non- Adults <7.0% Adults <6.0% Children and Adolescents <7.5% Source: [place] [employer]. Standards of medical care in diabetes,2017. Diabetes Care.2017:40 (suppl 1):S1-S135. us Bing Byers APRN LAB BLOOD ORDERABLES Final Result Performing Organization Address City/[facility]/ZIP Co de Phone Number [facility] [address] [place] [address] * Gold Top (05/23/2024 6:52 AM EDT) Extra Hold for add-ons 05/23/2024 9:01 AM EDT [facility] Comment:Auto resulted. Blood Venous blood specimen / Unknown 05/23/2024 6:52 AM EDT 05/23/2024 6:56 AM EDT us Piter Burns MD LAB BLOOD ORDERABLES Final Re sult [facility] [address] [place] [address] * Light Green Top (05/23/2024 6:52 AM EDT) Extra Hold for add-ons 05/23/2024 9:01 AM EDT [facility] Comment:Auto resulted. Blood Venous blood specimen / Unknown 05/23/2024 6:52 AM EDT 05/23/2024 6:56 AM EDT us Piter Burns MD LAB BLOOD ORDERABLES Final Re sult Performing Organization Address City/[facility]/ZIP Co de Phone Number [facility] [address] [place] [address] * BNP (05/23/2024 6:52 AM EDT) N-Terminal, PROBNP, Plasma 303 0 - 899 pg/mL 05/23/2024 7:16 AM EDT [facility] Blood Venous blood specimen / Unknown Venipuncture / Unknown 05/23/2024 6:52 AM EDT 05/23/2024 6:54 AM EDT us Joshua Cash MD LAB BLOOD ORDERABLES Final Re sult Performing Organization Address [facility] Co de Phone Number [facility] [address] [place] [address] * ED HIV 1/2 Antibody/Antigen Screen w/Reflex to HIV 1/2 Differentiation (05/23/2024 6:52 AM EDT) Pathologist [facility] HIV 1 & 2 Antibody/Antigen Screen Non Reactive Non Reactive 05/23/2024 7:41 AM EDT [facility] Comment:Screening for HIV 1 & 2 antibodies, and P24 antigen is NONREACTIVE. No confirmatory testing is required. Blood Venous blood specimen / Unknown Venipuncture / Unknown 05/23/2024 6:52 AM EDT 05/23/2024 7:01 AM EDT us Piter Burns MD LAB BLOOD ORDERABLES Final Re sult Performing Organization Address [facility]/ZIP Co de Phone Number [facility] [address] [place] [address] * (ABNORMAL) Basic Metabolic Panel, Plasma (05/23/2024 6:52 AM EDT) Pathologist [facility] Glucose, Plasma 119(H) 74 - 99 mg/dL 05/23/2024 7:16 AM EDT [facility] BUN, Plasma 104(H) 8 - 23 mg/dL 05/23/2024 7:16 AM EDT [facility] Creatinine, Plasma 2.92(H) 0.60 - 1.10 mg/dL 05/23/2024 7:16 AM EDT [facility] BUN/Creatinine Ratio 36 05/23/2024 7:16 AM EDT [facility] Sodium, Plasma 141 136 - 145 mmol/L 05/23/2024 7:16 AM EDT [facility] Potassium, Plasma 5.4(H) 3.6 - 4.9 mmol/L 05/23/2024 7:16 AM EDT [facility] Chloride, Plasma 103 97 - 107 mmol/L 05/23/2024 7:16 AM EDT [facility] CO2, Plasma 27 22 - 29 mmol/L 05/23/2024 7:16 AM EDT [facility] Anion Gap 11 6 - 16 mmol/L 05/23/2024 7:16 AM EDT [facility] Total Calcium, Plasma 9.4 8.9 - 10.2 mg/dL 05/23/2024 7:16 AM EDT [facility] eGFRcr 17.5 mL/min/1.7 3m*2 05/23/2024 7:16 AM EDT [facility] Comment:Reported eGFRcr in m L/min/1.73m2 is based the CKD-EPI 2020 equation that does not use a race coefficient. Blood Venous blood specimen / Unknown Venipuncture / Unknown 05/23/2024 6:52 AM EDT 05/23/2024 6:54 AM EDT us Piter Burns MD LAB BLOOD ORDERABLES Final Re sult [facility] [address] [place] [address] * (ABNORMAL) CBC W/O Differential (05/23/2024 6:52 AM EDT) WBC Count 15.26(H) 3.70 - 10.30 10*3/uL LAB HEMATOLOGY METHOD 05/23/2024 6:56 AM EDT [facility] RBC Count 4.33 3.90 - 5.20 10*6/uL LAB HEMATOLOGY METHOD 05/23/2024 6:56 AM EDT [facility] HGB 11.0(L) 11.2 - 15.7 g/dL LAB HEMATOLOGY METHOD 05/23/2024 6:56 AM EDT [facility] HCT 36.0 34.0 - 45.0 % LAB HEMATOLOGY METHOD 05/23/2024 6:56 AM EDT [facility] Platelet Count 225 155 - 369 10*3/uL LAB HEMATOLOGY METHOD 05/23/2024 6:56 AM EDT [facility] MCV 83 79 - 98 fL LAB HEMATOLOGY METHOD 05/23/2024 6:56 AM EDT [facility] MCH 25.4(L) 26.0 - 32.0 pg LAB HEMATOLOGY METHOD 05/23/2024 6:56 AM EDT [facility] MCHC 30.6(L) 30.7 - 35.5 g/dL LAB HEMATOLOGY METHOD 05/23/2024 6:56 AM EDT [facility] RDW 17.3(H) 11.5 - 14.5 % LAB HEMATOLOGY METHOD 05/23/2024 6:56 AM EDT [facility] MPV 9.8 8.8 - 12.5 fL LAB HEMATOLOGY METHOD 05/23/2024 6:56 AM EDT [facility] nRBC 0.0 <=0.0 per 100 WBCs LAB HEMATOLOGY METHOD 05/23/2024 6:56 AM EDT [facility] Blood Venous blood specimen / Unknown Venipuncture / Unknown 05/23/2024 6:52 AM EDT 05/23/2024 6:54 AM EDT us Piter Burns MD LAB BLOOD ORDERABLES Final Re sult [facility] [address] [place] [address] * (ABNORMAL) Prothrombin Time/INR (05/23/2024 6:52 AM EDT) Prothrombin Time 19.2(H) 12.0 - 14.3 sec LAB COAGULATION METHOD 05/23/2024 7:24 AM EDT [facility] INR 1.6(H) 0.9 - 1.1 LAB COAGULATION METHOD 05/23/2024 7:24 AM EDT [facility] Blood Venous blood specimen / Unknown Venipuncture / Unknown 05/23/2024 6:52 AM EDT 05/23/2024 6:54 AM EDT Narrative [facility] - 05/23/2024 7:24 AM EDT OPTIMAL INR RANGES FOR PATIENT ON ORAL ANTICOAGULANT THERAPY Prevention of venous thromboembolism INR 2.0 to 3.0 In patients with heart disease: Atrial fibrillation INR 2.0 to 3.0 Valvular heart disease INR 2.0 to 3.0 Tissue heart valves INR 2.0 to 3.0 Mechanical prosthetic valves INR 2.5 to 3.5 Prevention of recurrent [place] INR 2.5 to 3.5 Piter Burns MD LAB BLOOD ORDERABLES Final Re sult Performing Organization Address City/[facility]/ZIP Co de Phone Number [facility] [address] [place] [address] * Type and Screen (05/23/2024 6:52 AM [...] ORDERABLE S Final Result Performing Organization Address City/[facility]/ZIP Co de Phone Number BLOOD BANK [address] [place] [address], [place] * XR Hip Left Stress View [...] ECG Atrial Rate 64 BPM MUSE ECG MA Interval 170 ms MUSE ECG QRSD Interval 74 ms MUSE ECG QT Interval 406 ms MUSE ECG QTC Interval 418 ms MUSE ECG P [place] 33 degrees MUSE ECG R [place] -12 degrees MUSE ECG T Wave [place] 32 degrees MUSE ECG Diagnosis Normal sinus rhythm MUSE ECG Diagnosis Normal ECG MUSE ECG Diagnosis MUSE ECG Diagnosis Confirmed by Farhat Claudio ([id number]) on 05/23/2024 8:12:36 AM MUSE ECG 05/23/2024 6:24 AM EDT 05/23/2024 8:12 AM EDT us Chip White MD ECG ORDERABLES Final Resu lt MUSE ECG documented in this encounter Visit Diagnoses Diagnosis Fall at home, initial encounter- Primary Closed fracture of left hip, initial encounter ([facility]) COPD exacerbation ([facility]) Obstructive chronic bronchitis with exacerbation Hyperkalemia Hyperpotassemia RAGHAV (acute kidney injury) ([facility]) Fall Unspecified fall Closed intertrochanteric fracture of left femur CKD (chronic kidney disease) Chronic kidney disease, unspecified Hyperkalemia Hyperpotassemia Atrial fibrillation ([facility]) Atrial fibrillation RAGHAV (acute kidney injury) ([facility]) COPD (chronic obstructive pulmonary disease) ([facility]) Chronic airway obstruction, not elsewhere classified Frailty Senility without mention of psychosis Gait disturbance Abnormality of gait Closed fracture of left hip ([facility]) Closed fracture of left hip, initial encounter ([facility]) documented in this encounter Admitting Diagnoses Diagnosis Fall at home, initial encounter Closed fracture of left hip ([facility]) documented in this encounter Administered Medications Inactive [...] Given 05/29/2024 10:00 PM EDT 10 mg bumetanide (Bumex) tablet 1 mg 1 mg, Oral, Every morning, First dose on Tue05/24/24 at 0900, Until Discontinued, Routine Given 06/01/2024 8:28 AM EDT 1 mg Given 05/31/2024 8:08 AM EDT 1 mg Given 05/30/2024 8:35 AM EDT 1 mg busPIRone (Buspar) tablet 10 mg 10 [...] Given 05/30/2024 12:46 PM EDT 1,000 mg dextrose 50 % solution 12.5 g 12.5 g, Intravenous, Every 15 min PRN, Starting on Tue05/24/24 at 1341, Until Tue06/01/24 at 1723, Routine, low blood sugar ergocalciferol (Vitamin D-2) capsule 50,000 Units 50,000 [...] Given 05/30/2024 8:35 AM EDT 20 mg gabapentin (Neurontin) capsule 300 mg 300 [...] on Tue05/28/24 at 0900, Until Discontinued, Routine Given 06/01/2024 8:26 AM EDT 14 Units Left Lower Abdomen Given 05/31/2024 8:25 AM EDT 14 Units Le ft Lower Abdomen Given 05/30/2024 10:21 PM EDT 14 Units L eft Lower Abdomen insulin lispro (Admelog) 100 units/mL injection - Correction - Standard Dose 0-5 Units, Subcutaneous, 3 times daily with meals, First dose on Tue05/24/24 at 1730, Until Discontinued, Routine Given 06/01/2024 12:25 PM EDT 1 Units Left Lower Abdomen Given 06/01/2024 8:37 AM EDT 3 Units Le ft Lower Abdomen Given 05/31/2024 12:52 PM EDT 1 Units L eft Lower Abdomen insulin lispro (Admelog) injection - Correction - Nighttime Dose 0-3 Units, Subcutaneous, 2 times nightly (2100 & 0300), First dose on [place] 05/24/24 at 2100, Until Discontinued, Routine Given [...] EDT 12 Units Le ft Lower Abdomen ipratropium-albuterol (Duo-Neb) 0.5-2.5 mg/3 mL nebulizer solution 3 mL 3 mL, Nebulization, Every 6 hours RT, First dose (after last modification) on Tue05/27/24 at 1500, Until Discontinued, Routine Given 06/01/2024 9:11 AM EDT 3 mL Given 06/01/2024 2:23 AM EDT 3 mL Given 05/31/2024 8:53 PM EDT 3 mL melatonin tablet 3 mg 3 mg, Oral, [...] Given 05/31/2024 4:50 PM EDT 500 mg metoprolol tartrate (Lopressor) injection 5 mg 5 mg, Intravenous, Every 5 min PRN, 2 doses, Starting on Tue05/29/24 at 1302, Until Tue06/01/24 at 1723, Routine, HR > 130 metoprolol tartrate (Lopressor) split tablet 37.5 mg 37.5 mg, Oral, 2 times daily, First dose (after last modification) on Tue05/29/24 at 2100, Until Discontinued, Routine Given 06/01/2024 8:27 AM EDT 37.5 mg Given 05/31/2024 8:08 AM EDT 37.5 mg Given 05/30/2024 10:21 PM EDT 37.5 mg mometasone-formoterol (Dulera 100) 100-5 MCG/ACT inhaler 2 puff 2 puff, Inhalation, 2 times daily, First dose on Tue05/23/24 at 1345, Until Discontinued, Routine Given 06/01/2024 8:28 AM EDT 2 puffs Given 05/31/2024 8:53 PM EDT 2 puffs Given 05/31/2024 8:12 AM EDT 2 puffs oxyCODONE (Roxicodone) immediate release tablet 5 mg [...] Given 05/28/2024 10:00 PM EDT 17 g senna-docusate (Andreia-Colace) 8.6-50 MG per tablet 2 tablet 2 tablet, Oral, 2 times daily, First dose (after last modification) on [facility] 05/26/24 at 2100, Until Discontinued, Routine Given 06/01/2024 8:28 AM EDT 2 tabl ets Given 05/31/2024 8:21 PM EDT 2 tablets [...] line care sodium zirconium cyclosilicate (Lokelma) packet 5 g 5 g, Oral, 2 times daily, First dose on Tue05/24/24 at 1445, Until Discontinued, Routine Given 06/01/2024 8:27 AM EDT 5 g Given 05/31/2024 8:11 AM EDT 5 g Given 05/30/2024 8:34 AM EDT 5 g Tiotropium [place] Monohydrate (Spiriva Respimat) 2.5 MCG/ACT inhaler 2 [...] Deidra Lee RN)1252 (Given - Provider: Melany Jon RN)2200 (Given - Provider: Nereida Garcia RN) 0548 (Given - Provider: Nereida Garcia RN)1230 (Given - Provider: Velma Vieira RN) ARIPiprazole (Abilify) tablet 10 mg 10 mg, Oral, Every morning, First dose on Tue05/24/24 at 0900, Until Discontinued, Routine 0834 (Given - Provider: Alexis Roche RN) 0810 (Given - Provider: Melany Jon RN) 0827 (Given - Provider: Velma Vieira RN) atorvastatin (Lipitor) tablet 10 mg 10 mg, Oral, Nightly, First dose on Tue05/23/24 at 2100, Until Discontinued, Routine 2221 (Given - Provider: Deidra Lee RN - Comment: RN was attending sania bloom on the floor) 2019 (Given - Provider: Nereida Garcia RN) bumetanide (Bumex) tablet 1 mg 1 mg, Oral, Every morning, First dose on Tue05/24/24 at 0900, Until Discontinued, Routine 0835 (Given - Provider: Alexis Roche RN) 0808 (Given - Provider: Melany Jon RN) 0828 (Given - Provider: Velma Vieira RN) busPIRone (Buspar) tablet 10 mg 10 mg, Oral, 2 times daily, First dose on Tue05/23/24 at 2100, Until Discontinued, Routine 0835 (Given - Provider: Alexis Roche RN)222 (Given - Provider: Deidra Lee RN - Comment: RN was attending [facility]ia bloom on the floor) 08 (Given - Provider: Melany Jon RN)2020 (Given - Provider: Nereida Garcia RN) 827 (Given - Provider: Velma Vieira, CODI) calcium carbonate (Tums) chewable tablet 1,000 mg 1,000 mg, Oral, Daily, First dose on Tue05/30/24 at 0900, Until Discontinued, Routine 1246 (Given - Provider: Alexis Roche RN) 08 (Given - Provider: Melany Jon RN) 827 (Given - Provider: Velma Vieira RN) enoxaparin (Lovenox) syringe 30 mg (CANCELED) 30 mg, Subcutaneous, 2 times daily, First dose on Tue05/28/24 at 1800, Until Discontinued, Routine 0835 (Given - Provider: Alexis Roche RN)222 (Given - Provider: Deidra Lee RN - Comment: RN was attending [facility]ia bloom on the floor) 810 (Given - Provider: Melany Jon RN) ergocalciferol [...] 08 (Given - Provider: Melany Jon RN) 08 (Given - Provider: Velma Vieira RN) gabapentin (Neurontin) capsule 300 mg 300 mg, Oral, Every 8 hours scheduled, First dose (after last modification) on Tue05/23/24 at 1330, Until Discontinued, Routine 0602 (Given - Provider: Deidra Lee RN)1300 (Given - Provider: Alexis Roche, CODI)222 (Given - Provider: Deidra Lee RN - Comment: RN was attending [facility] bloom on the floor) 0632 (Given - Provider: Deidra Lee RN)1300 (Given - Provider: Melany Jon RN)2253 (Given - Provider: Nereida Garcia RN) 0548 (Given - Provider: Nereida Garcia RN)1341 [...] Melany Jon RN)2020 (Given - Provider: Nereida Garcia RN) 08 (Given - Provider: Velma Vieira RN) [...] was attending [facility] on the floor) 0825 (Given - Provider: Melany Jon RN)2100 (Not [...] bg 134) 0824 (Given - Provider: Melany Jon RN)1252 (Given - Provider: Melany Jon, CODI)1635 (Not Given - Provider: Melany Jon RN - Reason: Order parameters not met - Comment: 94) 0837 (Given - Provider: Velma Vieira RN)1225 (Given - Provider: Velma Vieira RN) insulin lispro (Admelog) injection - Correction - Nighttime Dose 0-3 Units, Subcutaneous, 2 times nightly (2100 & 0300), First dose on Tue05/24/24 at 2100, Until Discontinued, Routine 0319 (Given - Provider: Deidra Lee RN) 0058 (Not Given - Provider: Deidra Lee RN - Reason: Order parameters not met - Comment: Original FSBG 78, 139 followed hypoglycemia protocol)0326 (Not Given - Provider: Deidra Lee RN - Reason: Order parameters not met - Comment: 2100 FSBG 78, follow up FS after hypoglycemia protocol 139)2100 (Not Given - Provider: Nereida Garcia RN - Reason: Order parameters not met - Comment: 110 mg/dl) 0300 (Not Given - Provider: Nereida Garcia RN - Reason: Order parameters not met - Comment: 110 mg/dl) Insulin Lispro (Admelog, HumaLOG) 100 UNIT/ML injection 12 Units 12 Units, Subcutaneous, 3 times daily with meals, First dose (after last modification) on Tue05/28/24 at 0830, Until Discontinued, Routine 0843 (Given - Provider: Alexis Roche RN)1246 (Given - Provider: Alexis Roche, CODI)1754 (Given - Provider: Alexis Roche, CODI) 0824 (Given - Provider: Melany Jon RN)1253 (Given - Provider: Melany Jon RN)1650 (Given - Provider: Melany Jon RN) 0837 (Given - Provider: Velma Vieira, CODI)1224 (Given - Provider: Velma Vieira, RN) ipratropium-albuterol (Duo-Neb) 0.5-2.5 mg/3 mL nebulizer solution 3 mL 3 mL, Nebulization, Every 6 hours RT, First dose (after last modification) on Tue05/27/24 at 1500, Until Discontinued, Routine 0303 (Given - Provider: Chip Richardson)0859 (Given - Provider: Flora Andrade)1557 (Given - Provider: Flora Andrade)2013 (Given - Provider: Ginny Mullins) 0321 (Given - Provider: Ginny Mullins)0903 (Given - Provider: Sherman Costa)1711 (Given - Provider: Booker Marquez)2053 (Given - Provider: Basilia Ayala) 0223 (Given - Provider: Basilia Ayala)0911 (Given - Provider: Ramona Gay)1513 (Not Given - Provider: Ramona Gay - Reason: Hold for condition: must add comment - Comment: pt discharged) melatonin tablet 3 mg 3 mg, Oral, Nightly, First dose on Tue05/30/24 at 2100, Until Discontinued, Routine 2221 (Given - Provider: Deidra Lee RN - Comment: RN was attending sania bloom on the floor) 2217 (Given - Provider: Nereida Garcia RN) methocarbamol (Robaxin) tablet 500 mg 500 mg, Oral, 3 times daily, First dose (after last modification) on Tue05/27/24 at 1600, Until Discontinued, Routine 0834 (Given - Provider: Alexis Roche, CODI)1608 (Given - Provider: Alexis Roche RN)2221 (Given - Provider: Deidra Lee RN - Comment: RN was attending sania bloom on the floor) 0810 (Given - Provider: Melany Jon, CODI)1650 (Given - Provider: Melany Jon, CODI)2200 (Given - Provider: Nereida Garcia RN) 0827 [...] floor) 08 (Given - Provider: Melany Jon RN)2099 (Not Given - Provider: Nereida Garcia RN - Reason: Order parameters not met - Comment: low bp) 08 (Given - Provider: Velma Vieira RN) mometasone-formoterol [...] Basilia Ayala) 08 (Given - Provider: Velma Vieira RN) polyethylene glycol (Miralax) packet 17 g 17 g, Oral, 2 times daily, First dose (after last modification) on Tue05/26/24 at 2100, Until Discontinued, Routine 0836 (Not Given - Provider: Alexis Roche RN - Reason: Patient/family refused) 0058 (Not Given - Provider: Deidra Lee [...] the floor) 08 (Given - Provider: Melany Jon, CODI)2020 (Given - Provider: Nereida Garcia, CODI) 0828 (Given - Provider: Velma Vieira, CODI) sertraline (Zoloft) tablet 200 mg 200 mg, Oral, Daily, First dose on Tue05/23/24 at 1800, Until Discontinued, Routine 0835 (Given - Provider: Alexis Roche RN) 08 (Given - Provider: Melany Jon, CODI) 0827 (Given - Provider: Velma Vieira, CODI) sodium chloride 0.9 % flush 10 mL(Linked Group 2) 10 mL, Intravenous, Every 12 hours, First dose on Tue05/23/24 at 0935, Until Discontinued, Routine 0836 (Given - Provider: Alexis Roche RN)2100 (Given - Provider: Deidra Lee, CODI) 104 (Given - Provider: Melany Jon, CODI)220 (Given - Provider: Nereida Garcia, CODI) 0837 (Given - Provider: Velma Vieira, CODI) sodium zirconium cyclosilicate (Lokelma) packet 5 g 5 g, Oral, 2 times daily, First dose on Maritza 05/24/24 at 1445, Until Discontinued, Routine 0834 (Given - Provider: Alexis Roche RN)213 (Not Given - Provider: Deidra Lee, CODI - Reason: Medication not available) 0811 (Given - Provider: Melany Jon, CODI)2100 (Not Given - Provider: Nereida Garcia RN - Reason: Hold for condition: must add comment - Comment: missed dose) 0827 (Given - Provider: Velma Vieira, CODI) Tiotropium [place] Monohydrate (Spiriva Respimat) 2.5 MCG/ACT inhaler 2 puff(Linked Group 1) 2 puff, Inhalation, Daily, First dose on Tue05/23/24 at 1345, Until Discontinued, Routine 0844 (Given - Provider: Alexis Roche, RN) 0813 (Given - Provider: Melany Jon, CODI) 0829 (Given - Provider: Velma Vieira RN) PRN Medication Order 05/30/2024 05/31/2024 06/01/2024 dextrose [...] moderate pain 0610 (Given - Provider: Deidra Lee, CODI) oxyCODONE (Roxicodone) immediate release tablet 5 mg (CANCELED) 5 mg, Oral, Every 6 hours PRN, Starting on Tue05/30/24 at 0759, Until Tue05/31/24 at 0657, Routine, severe pain 1251 (Given - Provider: Alexis Roche, CODI)2228 (Given - Provider: Deidra Lee, CODI) 0345 (Given - Provider: Deidra Lee RN) oxyCODONE (Roxicodone) immediate release tablet 5 mg 5 mg, Oral, Every 4 hours PRN, Starting on Tue05/31/24 at 0656, Until Tue06/01/24 at 1723, Routine, severe pain 0824 (Given - Provider: Melany Jon RN)202 (Given - Provider: Nereida Garcia, CODI) 0014 (Given - Provider: Nereida Garcia, CODI)0349 (Given - Provider: Nereida Garcia RN)0827 (Given [...] sleep Linked Groups Order Group 1: Tiotropium [place] Monohydrate (Spiriva Respimat) 2.5 MCG/ACT inhaler 2 [...] Sublingual, Every 15 min PRN, Starting on Maritza 05/24/24 at 1341, Until Tue06/01/24 at 1723, Routine, low blood sugar, per Hypoglycemia Prevention and Treatment protocol Or dextrose 50 % solution 12.5 gJump to med 12.5 g, Intravenous, Every 15 min PRN, Starting on Maritza [...] documented as of this encounter Care Teams Police Communications Operator Relationship Specialty Start Date End Date Joshua Urban MD [address] [place] [address] PCP - General 06/27/20 Tri Singletary, [place] [address] Warehouse Laborer Sped Teacher 10/19/17 documented as of this encounter
--- OUTSIDE RECORDS SUMMARY | 2024-06-12 09:30 | XMS_ITS | Encounter Summary ---
Author Organization Healthcare Address [address] [place] [address] Care Team Providers Care Food Processor Name Role Phone Joshua Urban MD Primary Care Provider [phone] Tri Singletary DIFFUSION FURNACE OPERATOR Unavailable Unavailable Reason for Visit * Reason Comments Post-op Encounter Details Date Type Department Care Team (Late st Contact Info) Description 06/12/2024 9:30 AM EDT Office Visit [facility] Orthopaedic Surgery & Sports Medicine [address] [place] [address] Bing Byers N, SEO MANAGER [address] [place] [address] Closed fracture of hip, unspecified laterality, sequela (Primary Dx) Social History Tobacco Use Types Packs/Day Years [...] any time in the past 12 m onths, were you homeless or living in a [...] drink first t michelet in the morning (EYE-DRUM STOCK CLERK) to steady your nerves or to get rid of a hangover? 0 09/26/2022 CAGE Questionnaire Score 0 023 Utilities Answer Date Recorded In the past 12 months has e [employer], gas, oil, or water [employer] threatened to shut off services in your home? No 05/24/2024 Comments Unknown Sex and Gender Information Value Date Recorded Sex Assigned at Not on file Legal Sex Female 7:35 PM EDT Gender Identity Not on file Sexual Orientation Not on file documented as of this encounter Last Filed Vital Signs Vital Sign Reading Time Taken Comments Blood Pressure 113/66 06/12/2024 9:36 AM EDT Pulse 61 06/12/2024 9:36 AM EDT Temperature 36.9 C (98.5 F) 06/12/2024 9:36 AM EDT Respiratory Rate - - Oxygen Saturation 92% 06/12/2024 9:36 AM EDT Inhaled Oxygen Concentration - - Weight 80.7 kg (178 lb) 06/12/2024 9:36 AM EDT Height 165.1 cm (5' 5 ) 06/12/2024 9:36 AM EDT Body Mass Index 29.62 06/12/2024 9:36 AM EDT documented in this encounter Miscellaneous Notes * Progress Notes - Bing Byers, SEO MANAGER - 06/12/2024 9:30 AM EDT CC: L intertrochanteric femur fx s/p CMN placement on 05/24 HPI: Kassy Bartlett is a 64 y.o. female who returns to clinic for evaluation from the above injury/and or procedure. She is currently in a rehab facility receiving therapy. She reports she does walkambulate very much at baseline due to chronic pain. She is hopeful to get back to where she was before this injury though. Physical Assessment: No acute distress Non labored breathing Peripheral perfusion intact Focused MSK exam: Left lower extremity: Well-healed surgical incisions No erythema, ecchymosis, edema Fires EHL/FHL/GSC/TA SILT s/s/sp/dp/t Toes WWP XRAY: no imaging obtained Assessment: Kassy Bartlett is a 64 y.o. female s/p L femur CMN on 05/[address] Burns Plan: -sutures removed -WB Status: WBAT LLE -Follow up: in [address] Burns -The patient was given an opportunity to ask questions and all their questions were answered to their satisfaction. Bing Byers APRN Orthopedic Trauma Nurse Practitioner Department of Orthopedic Surgery and Sports Medicine documented in this encounter Plan of Treatment Upcoming Encounters Date Type Department Care Team (Late st Contact Info) Description 08/27/2024 9:30 AM EDT Office Visit [facility] Orthopaedic Surgery & Sports Medicine [address] [place] [address] Cornelio Burns MD [address] [place] [address] documented as of this encounter Results * XR Hip Left 2 or 3 Views (07/16/2024 7:48 AM EDT) Anatomical Region Laterality Modality Lower Extremities, Hip Left Digital R adiography Impressions 07/16/2024 8:51 AM EDT No evidence of hardware complication. Similar alignment of the intertrochanteric fracture. CRITICAL RESULT: No. COMMUNICATION: Per this written report. Drafted by Leonor Kramer MD on 07/16/2024 8:50 AM Final report signed by Leonor Kramer MD on 07/16/2024 8:51 AM Narrative 07/16/2024 8:51 AM EDT CLINICAL INDICATION: pain TECHNIQUE: XR HIP LEFT 2 OR 3 VIEWS COMPARISON: Radiographs from 05/24/2024 FINDINGS: Intramedullary nail screw fixation of the proximal left femur. No evidence of hardware loosening or failure. Similar alignment of the left intertrochanteric fracture. Similar degenerative changes of the left hip. Procedure Note Leonor Kramer MD - 07/16/2024 CLINICAL INDICATION: pain TECHNIQUE: XR HIP LEFT 2 OR 3 VIEWS COMPARISON: Radiographs from 05/24/2024 FINDINGS: Intramedullary nail screw fixation of the proximal left femur. No evidenceof hardware loosening or failure. Similar alignment of the leftintertrochanteric fracture. Similar degenerative changes of the lefthip. IMPRESSION: No evidence of hardware complication. Similar alignment of theintertrochanteric fracture. CRITICAL RESULT: No. COMMUNICATION: Per this written report. Drafted by Leonor Kramer MD on 07/16/2024 8:50 AM Final report signed by Leonor Kramer MD on 07/16/2024 8:51 AM us Bing Byers SEO MANAGER IMG XR PROCEDURES Final Re sult documented in this encounter Visit Diagnoses Diagnosis Closed fracture of hip, unspecified laterality, sequela- Primary Closed fracture of hip, unspecified laterality, sequela documented in this encounter Additional Health Concerns Assessment Noted Time A fall risk assessment has been complete d for the patient 06/12/2024 9:30 AM EDT A Body Mass Index follow-up plan has been documented for the patient 06/12/2024 10:46 AM EDT documented as of this encounter Care Teams Food Processor Relationship Specialty Start Date End Date Joshua Urban MD [address] [place] [address] PCP - General 06/27/20 Tri Singletary, [place] [address] Ticket Taker Design Engineer Marine Equipment 10/19/17 documented as of this encounter
--- OUTSIDE RECORDS SUMMARY | 2024-07-16 07:34 | XMS_ITS | Encounter Summary ---
Author Organization Healthcare Address [address] [place] [address] Care Team Providers Care Director Of Nuclear Medicine Name Role Phone Joshua Urban MD Primary Care Provider [phone] Tri Singletary ANCILLARY SERVICES MANAGER THERAPY Unavailable Unavailable Encounter Details Date Type Department Care Team (Latest Contact Info) Description 07/16/2024 7:34 AM EDT - 07/16/2024 11:59 PM EDT Hospital Encounter [place] [facility] [address], [address] [place] [phone] Closed fracture of hip, unspecified laterality, sequela [...] any time in the past 12 m [facility], were you homeless or living in a penitentiary (including now)? No 05/24/2024 CAGE ASSESSMENT Answer [...] drink first t michelet in the morning (EYE-CLASSIFICATION ANALYST) to steady your nerves or to get [...] Description 08/27/2024 9:30 AM EDT Office Visit [facility] Orthopaedic Surgery & Sports Medicine [address], [address] [place] [address] Cornelio Burns MD [address] [place] [address] documented as of this encounter [...] on 07/16/2024 8:51 AM us Bing Byers DRAFTER PLUMBING IMG XR PROCEDURES Final Re sult documented [...] documented as of this encounter Care Teams Director Of Nuclear Medicine Relationship Specialty Start Date End Date Joshua Urban MD [address] [place] [address] PCP - General 06/27/20 Tri Singletary, [place] [address] Collections Associate Scrap Separator 10/19/17 documented as of this encounter
--- OUTSIDE RECORDS SUMMARY | 2024-07-16 08:40 | XMS_ITS | Encounter Summary ---
Author Organization Healthcare Address [address] [place] [address] Care Team Providers Care Automotive Center Manager Name Role Phone Joshua Urban MD Primary Care Provider [phone] Tri Singletary E PRECISION FARMING SPECIALIST Unavailable Unavailable Reason for Referral * Consultation (Routine) - Authorized Specialty Diagnoses / Procedures Referred By Contac t Referred To Contact Physical Therapy Diagnoses Closed fracture of hip, unspecified laterality, sequela Cornelio Burns MD [id number] [place] [address] Phone: tel: fax: Referral ID Status Reason Start Date Expiration Date Visits Requested Visits Authorized [id number] Authorized Consult and Treat 07/16/2024 01/15/2026 1 1 Reason for Visit * Reason Comments Fracture Encounter Details Date Type Department Care Team (Late st Contact Info) Description 07/16/2024 8:40 AM EDT Office Visit [facility] Orthopaedic Surgery & Sports Medicine [address] [place] [address] Cornelio Burns MD [address] [facility] [address] [place] [address] Closed fracture of hip, unspecified laterality, sequela [...] any time in the past 12 m [facility], were you homeless or living in a [place] [facility] [place] facility (including now)? No 05/24/2024 CAGE ASSESSMENT Answer [...] drink first t michelet in the morning (EYE-CUSTOMER ACCOUNT SPECIALIST) to steady your nerves or to get rid of a hangover? 0 09/26/2022 CAGE Questionnaire Score 0 023 Utilities Answer Date Recorded In the past 12 months has [employer], gas, oil, or water company threatened to [...] questions were answered to their satisfaction. Ryan Sctot MD Cosigned by Cornelio Burns MD at [...] Description 08/27/2024 9:30 AM EDT Office Visit [facility] Orthopaedic Surgery & Sports Medicine [address] [place] [address] Cornelio Burns MD [address] [place] [address] Scheduled Orders Name Type Priority Associated Diagnoses [...] documented as of this encounter Care Teams Automotive Center Manager Relationship Specialty Start Date End Date Joshua Urban MD [address] [place] [address] PCP - General 06/27/20 Tri Singletary, [place] [address] Pump Stitcher Nipple Threader 10/19/17 documented as of this encounter
--- OUTSIDE RECORDS SUMMARY | 2024-07-23 16:38 | XMS_ITS | Encounter Summary ---
Author Organization Healthcare Address [address] [place] [address] Care Team Providers Care Digital Director Name Role Phone Joshua Urban MD Primary Care Provider [phone] Tri Singletary CURTAIN WORKER Unavailable Unavailable Encounter Details Date Type Department Care Team (Late st Contact Info) Description 05/23/2024 Orders Only External Location [address] [place] [phone] Provider, External Social History Tobacco Use Types Packs/Day Years [...] any time in the past 12 m [facility], were you homeless or living in a retirement (including now)? No 05/24/2024 CAGE ASSESSMENT Answer [...] drink first t michelet in the morning (EYE-RIM BUSTER) to steady your nerves or to get rid of a hangover? 0 09/26/2022 CAGE Questionnaire Score 0 023 Utilities Answer Date Recorded In the past 12 months has th e [employer], gas, oil, or water company threatened to [...] Date of Assessment Author No Risk Indicated 05/26/2024 8:00 PM EDT Emmanuelle Valle * Question Answer Date of Assessment Author 1. Wish to be (Past 1 Month) No 025 8:00 PM EDT Emmanuelle Valle 2. Non-Specific Active Suici akanksha Thoughts (Past 1 Month) No 05/26/2024 8:00 PM EDT Kadeem Valle 6. Suicidal Behavior (Lifetime) No 8:00 PM EDT Emmanuelle Valle documented as of this encounter Plan of Treatment Upcoming Encounters Date Type Department Care Team (Late st Contact Info) Description 08/27/2024 9:30 AM EDT Office Visit [facility] Orthopaedic Surgery & Sports Medicine [address] [place] [address] Cornelio Burns MD [address] [place] [address] documented as of this encounter Procedures Procedure Name Priority Date/Time Associated Diagnosis Comments XR OUTSIDE IMAGES 05/23/2024 3:30 AM EDT documented in this encounter Results * XR OUTSIDE IMAGES (05/23/2024 3:30 AM EDT) Anatomical Region Laterality Modality Radiographic Danyelle ging 05/23/2024 3:30 AM EDT us External Provider IMG XR PROCEDURES Final Result documented in this encounter Visit Diagnoses Not on filedocumented in this encounter Additional Health Concerns Assessment Noted Time A Body Mass Index follow-up plan has been documented for the patient 06/01/2024 1:33 PM EDT documented as of this encounter Care Teams Digital Director Relationship Specialty Start Date End Date Joshua Urban MD [address] [place] [address] PCP - General 06/27/20 Tri Singletary, [place] [address] Dye Tub Tender Medical Laboratory Scientist 10/19/17 documented as of this encounter
--- OUTSIDE RECORDS SUMMARY | 2024-07-23 16:38 | XMS_ITS | Encounter Summary ---
Author Organization Healthcare Address [address] [place] [address] Care Team Providers Care Barrel Charrer Helper Name Role Phone Joshua Urban MD Primary Care Provider [phone] Tri Singletary WET PAN MIXER Unavailable Unavailable Encounter Details Date Type Department Care Team (Late st Contact Info) Description 05/23/2024 Orders Only External Location [address] [place] [phone] Provider, External Social History Tobacco Use Types [...] any time in the past 12 m [facility], were you homeless or [...] drink first t michelet in the morning (EYE-CUTTER OUT) to steady your nerves or to get rid of a hangover? 0 09/26/2022 CAGE Questionnaire Score 0 023 Utilities Answer Date Recorded In the past 12 months has th e [employer], gas, oil, or water company threatened to [...] EDT Emmanuelle Valle 2. Non-Specific Active Suici akankhsa Thoughts (Past 1 Month) No 05/26/2024 8:00 PM EDT Kadeem Valle 6. Suicidal Behavior (Lifetime) No 8:00 PM EDT Emmanuelle Valle documented as of this encounter Plan of Treatment Upcoming Encounters Date Type Department Care Team (Late st Contact Info) Description 08/27/2024 9:30 AM EDT Office Visit [facility] Orthopaedic Surgery & Sports Medicine [address], [address] [place] [address] Cornelio Burns MD [address] [place] [address] documented as of this encounter Procedures Procedure Name Priority Date/Time Associated Diagnosis Comments CT NEURO OUTSIDE IMAGES 05/23/2024 3:43 AM EDT documented in this encounter Results * CT NEURO OUTSIDE IMAGES (05/23/2024 3:43 AM EDT) Anatomical Region Laterality Modality Computed Tomogra phy 05/23/2024 3:43 AM EDT us External Provider IMG CT PROCEDURES Final Result documented in this encounter Visit Diagnoses Not on filedocumented in this encounter Additional Health Concerns Assessment Noted Time A Body Mass Index follow-up plan has been documented for the patient 06/01/2024 1:33 PM EDT documented as of this encounter Care Teams Barrel Charrer Helper Relationship Specialty Start Date End Date Joshua Urban MD [address] [place] [address] PCP - General 06/27/20 Tri Singletary, [place] [address] Principal Associate Dress Operator 10/19/17 documented as of this encounter
--- OUTSIDE RECORDS SUMMARY | 2024-07-23 16:38 | XMS_ITS | Encounter Summary ---
Author Organization Healthcare Address [address] [place] [address] Care Team Providers Care Svp Digital Sales Food & Cooking Name Role Phone Joshua Urban MD Primary Care Provider [phone] Tri Singletary SPONSORSHIP COORDINATOR Unavailable Unavailable Encounter Details Date Type Department Care Team (Late st Contact Info) Description 05/23/2024 Orders Only External Location [address] [place] [phone] Provider, External Social History Tobacco Use Types [...] any time in the past 12 m [facility], were you homeless or living in a [...] drink first t michelet in the morning (EYE-TRANSMISSION MECHANIC) to steady your nerves or to get rid of a hangover? 0 09/26/2022 CAGE Questionnaire Score 0 023 Utilities Answer Date Recorded In the past 12 months has th e [employer], gas, oil, or water company threatened to [...] Description 08/27/2024 9:30 AM EDT Office Visit [facility] Orthopaedic Surgery & Sports Medicine [address], [address] [place] [address] Cornelio Burns MD [address] [place] [address] documented as of this encounter Procedures Procedure Name Priority Date/Time Associated Diagnosis Comments CT MSK OUTSIDE IMAGES 05/23/2024 3:47 AM EDT documented in this encounter Results * CT MSK OUTSIDE IMAGES (05/23/2024 3:47 AM EDT) Anatomical Region Laterality Modality Computed Tomogra phy 05/23/2024 3:47 AM EDT External Provider IMG CT PROCEDURES Final Result documented in this encounter Visit Diagnoses Not on filedocumented in this encounter Additional Health Concerns Assessment Noted Time A Body Mass Index follow-up plan has been documented for the patient 06/01/2024 1:33 PM EDT documented as of this encounter Care Teams Svp Digital Sales Food & Cooking Relationship Specialty Start Date End Date Joshua Urban MD [address] [place] [address] PCP - General 06/27/20 Tri Singletary, [place] [address] Embedded Software Manager Service Center Representative 10/19/17 documented as of this encounter
--- OUTSIDE RECORDS SUMMARY | 2024-07-23 16:38 | XMS_ITS | Encounter Summary ---
Author Organization Healthcare Address [address] [place] [address] Care Team Providers Care Top Knitter Name Role Phone Joshua Urban MD Primary Care Provider [phone] Tri Singletary OFFICE ASSISTANT RECEPTIONIST Unavailable Unavailable Encounter Details Date Type Department Care Team (Late st Contact Info) Description 05/23/2024 Orders Only External Location [address] [place] [id number] Provider, External Social History Tobacco Use Types [...] were you homeless or living in a senior living (including now)? No 05/24/2024 CAGE ASSESSMENT Answer [...] drink first t michelet in the morning (EYE-FURNITURE MOVER DRIVER) to steady your nerves or to get rid of a hangover? 0 09/26/2022 CAGE Questionnaire Score 0 023 Utilities Answer Date Recorded In the past 12 months has th e [employer], gas, oil, or water company threatened to [...] Description 08/27/2024 9:30 AM EDT Office Visit [facility] Orthopaedic Surgery & Sports Medicine [address] [place] [address] Cornelio Burns MD [address] [place] [address] documented as of this encounter Procedures Procedure Name Priority Date/Time Associated Diagnosis Comments XR MSK OUTSIDE IMAGES 05/23/2024 3:50 AM EDT documented in this encounter Results * XR MSK OUTSIDE IMAGES (05/23/2024 3:50 AM EDT) Anatomical Region Laterality Modality Radiographic Danyelle ging 05/23/2024 3:50 AM EDT External Provider IMG XR PROCEDURES Final Result documented in this encounter Visit Diagnoses Not on filedocumented in this encounter Additional Health Concerns Assessment Noted Time A Body Mass Index follow-up plan has been documented for the patient 06/01/2024 1:33 PM EDT documented as of this encounter Care Teams Top Knitter Relationship Specialty Start Date End Date Joshua Urban MD [address] [place] [address] PCP - General 06/27/20 Tri Singletary, [place] [address] Consumer Loan Processor Care Management Assistant 10/19/17 documented as of this encounter
--- OUTSIDE RECORDS SUMMARY | 2024-07-23 16:38 | XMS_ITS | Encounter Summary ---
Author Organization Healthcare Address [address] [place] [address] Care Team Providers Care Balancer Name Role Phone Joshua Urban MD Primary Care Provider [phone] Tri Singletary RADIATION THERAPY TECHNOLOGIST Unavailable Unavailable Encounter Details Date Type Department Care Team (Latest Contact Info) Description 06/12/2024 Travel Social History Tobacco Use Types Packs/Day Years [...] drink first t michelet in the morning (EYE-BUTTON GRADER) to steady your nerves or to get [...] on file documented as of this encounter Plan of Treatment Upcoming Encounters Date Type Department Care Team (Late st Contact Info) Description 08/27/2024 9:30 AM EDT Office Visit [facility] Orthopaedic Surgery & Sports Medicine [address] [place] [address] Cornelio Burns MD [address] [place] [address] documented as of this encounter Visit Diagnoses Not on filedocumented in this encounter Additional Health Concerns Assessment Noted Time A fall risk assessment has been complete d for the patient 06/12/2024 9:30 AM EDT A Body Mass Index follow-up plan has been documented for the patient 06/12/2024 10:46 AM EDT documented as of this encounter Care Teams Balancer Relationship Specialty Start Date End Date Joshua Urban MD [address] [place] [address] PCP - General 06/27/20 Tri Singletary, [place] [address] Police Or Patrol Park Officer Benefits Counselor 10/19/17 documented as of this encounter
--- OUTSIDE RECORDS SUMMARY | 2024-07-23 16:38 | XMS_ITS ---
Author Organization [facility] Address [address] [id number] Care Team Providers Care Charter Representative Name Role Phone Joshua Urban MD Primary Care Provider [phone] Tri Singletary JACK FRAME TENDER Unavailable Unavailable Hepatitis C Program Status:Active (Active) Start date:10/19/2017 Enrollment date:10/19/2017 Enrollment reason:HCV Continued Care and Services Coordination
--- OUTSIDE RECORDS SUMMARY | 2024-07-23 16:38 | XMS_ITS | Encounter Summary ---
Author Organization Healthcare Address [address] [place] [address] Care Team Providers Care Animal Skinner Name Role Phone Joshua Urban MD Primary Care Provider [phone] Tri Singletary BILLBOARD ERECTOR Unavailable Unavailable Encounter Details Date Type Department Care Team (Late st Contact Info) Description 05/23/2024 Orders Only External Location [address] [place] [phone] Provider, External Social History Tobacco Use Types [...] any time in the past 12 m [facility], were you homeless or living in a chcf (including now)? No 05/24/2024 CAGE ASSESSMENT Answer [...] drink first t michelet in the morning (EYE-VECTOR CONTROL SPECIALIST) to steady your nerves or to get rid of a hangover? 0 09/26/2022 CAGE Questionnaire Score 0 023 Utilities Answer Date Recorded In the past 12 months has th e [employer], gas, oil, or water company threatened to [...] Description 08/27/2024 9:30 AM EDT Office Visit [facility] Orthopaedic Surgery & Sports Medicine [address], [address] [place] [address] Cornelio Burns MD [address] [place] [address] documented as of this encounter Procedures Procedure Name Priority Date/Time Associated Diagnosis Comments XR MSK OUTSIDE IMAGES 05/23/2024 3:30 AM EDT documented in this encounter Results * XR MSK OUTSIDE IMAGES (05/23/2024 3:30 AM EDT) Anatomical Region Laterality Modality Radiographic Danyelle ging 05/23/2024 3:30 AM EDT External Provider IMG XR PROCEDURES Final Result documented in this encounter Visit Diagnoses Not on filedocumented in this encounter Additional Health Concerns Assessment Noted Time A Body Mass Index follow-up plan has been documented for the patient 06/01/2024 1:33 PM EDT documented as of this encounter Care Teams Animal Skinner Relationship Specialty Start Date End Date Joshua Urban MD [address] [place] [address] PCP - General 06/27/20 Tri Singletary, [place] [address] Barrel Washer Feeder Worker Power Unit Operator 10/19/17 documented as of this encounter
--- OUTSIDE RECORDS SUMMARY | 2024-07-23 16:38 | XMS_ITS | Encounter Summary ---
Author Organization Healthcare Address [address] [place] [address] Care Team Providers Care Core Carrier Name Role Phone Joshua Urban MD Primary Care Provider [phone] Tri Signletary STREETCAR STARTER Unavailable Unavailable Encounter Details Date Type Department Care Team (Late st Contact Info) Description 05/23/2024 Orders Only External Location [address] [place] [phone] Provider, External Social History Tobacco Use Types [...] any time in the past 12 m [facility], were you homeless or living in a group home (including now)? No 05/24/2024 CAGE ASSESSMENT [...] drink first t michelet in the morning (EYE-LEATHER SKINNER) to steady your nerves or to get rid of a hangover? 0 09/26/2022 CAGE Questionnaire Score 0 023 Utilities Answer Date Recorded In the past 12 months has th e [employer], gas, oil, or water company threatened to [...] Description 08/27/2024 9:30 AM EDT Office Visit [facility] Orthopaedic Surgery & Sports Medicine [address] [place] [address] Cornelio Burns MD [address] [place] [address] documented as of this encounter Procedures Procedure Name Priority Date/Time Associated Diagnosis Comments CT NEURO OUTSIDE IMAGES 05/23/2024 3:40 AM EDT documented in this encounter Results * CT NEURO OUTSIDE IMAGES (05/23/2024 3:40 AM EDT) Anatomical Region Laterality Modality Computed Tomogra phy 05/23/2024 3:40 AM EDT us External Provider IMG CT PROCEDURES Final Result documented in this encounter Visit Diagnoses Not on filedocumented in this encounter Additional Health Concerns Assessment Noted Time A Body Mass Index follow-up plan has been documented for the patient 06/01/2024 1:33 PM EDT documented as of this encounter Care Teams Core Carrier Relationship Specialty Start Date End Date Joshua Urban MD [address] [place] [address] PCP - General 06/27/20 Tri Singletary, [place] [address] Home Attendant Rehab Liaison 10/19/17 documented as of this encounter
--- OUTSIDE RECORDS SUMMARY | 2024-07-23 16:38 | XMS_ITS | Encounter Summary ---
Author Organization Healthcare Address [address] [place] [address] Care Team Providers Care Junior High School Teacher Name Role Phone Joshua Urban MD Primary Care Provider [phone] Tri Singletary CONCRETE BATCHER Unavailable Unavailable Encounter Details Date Type Department Care Team (Late st Contact Info) Description 01/03/2018 [facility] Encounter Historical OTTR [address] [place] [address] Larissa Pineda RN HOSP. [facility]NOST[facility]AC[facility]IES ECHO Social History Tobacco Use Types Packs/Day Years Used Date Smoking Tobacco: Never Assessed Comments Unknown Sex and Gender Information Value Date Recorded Sex Assigned at Not on file Legal Sex Female 7:35 PM EDT Gender Identity Not on file Sexual Orientation Not on file documented as of this encounter Miscellaneous Notes * Progress Notes - Nataliya Allen - 06/21/2018 12:20 PM EDT Called pt to f/u on nicotine and transplant interest. Pt states she is still smoking and having other health problems . Pt explains that she is currently starting treatment for Hepatitis C, also hashepatitis B and is still having issues and pain from her biopsy. Pt states she does not want to move forward with transplant at this time and is still currently smoking. I encouraged pt to stop smoking. I asked pt if she has contacted the surgeons office. Pt denies and states she can not rememberwho did the surgery. I asked her if she would like me to help her find out the surgeons name and contact. I reassured her that it is important that she follows up with the surgeon if she feels she has not recovered. Pt agrees. I look up her information, inform the pt that Dr. Guzman did the biopsy surgery and gave her the number to the CT surgery clinic. I encouraged to call the clinic and set up afollow up appt with Dr. Guzman. Pt states she will. I also informed the pt that I would close her file in the transplant center, but asked her to call back if she changed her mind when her hep c treatment is complete and she is no longer smoking. I explained that she would need a new referral from her primary capper machine operator. Pt verbalized understanding. * Progress Notes - Wen Stiles - 04/14/2018 11:23 AM EST pt called wanting to make an appt to be seen by a dr due to not feeling right after lung biopsy- Looking at notes I did inquire if pt was still smoking she stated I aint gonna lie Valeria started back and I'm not doing a transplant anyway- I did explain that our clinic was for appts with listed new and post transplants and suggested that she make an appt with her primary MD or pulmonoligist- I did transfer pt to [facility] for follow up * Progress Notes - Larissa Pineda - 03/29/2018 5:15 PM EST Called pt to schedule random nicotine testings and f/u on interest in transplantation. No answer, unable to leave . * Progress Notes - Larissa Pineda - 01/03/2018 4:20 PM EST Called and spoke with patient to discuss positive nicotine results. Pt states she stopped using a nicotine patch several months ago and states she does not use any other tobacco or nicotine products at this time. She does have high exposure to second hand smoke in other people's houses and the person that drives her to all appt's is a heavy smoker. I discussed trying to limit second hand smoke exposure and explained pt must test negative for nicotine for at least 3 months to be eligible for listing. Pt was agreeable and verbalized understanding. Pt states she needs to think about it (getting transplanted) and has not been in contact with herMD yet in order to start pulmonary rehab but plans to do so over the next month. * Progress Notes - Larissa Pineda - 01/02/2018 4:39 PM EST Attempted to call patient to discuss positive nicotine lab results (possibly second hand?) No answer and unable to leave vm. Stop Nicotine Letter and Weight Loss Letter mailed to pt, referring MD, and saved to [facility]. * Progress Notes - Larissa Pineda - 12/15/2017 4:23 PM EDT Pt seen in txp clinic by MD Lindsey, per note: Assessment and Plan: Pre lung transplant evaluation for COPD and pulmonary Langerhans cell histiocytosis FEV1 1.16L / 43% FVC 1.92L / 56% DLCO 48% Oxygen Requirements: 3L NYHA III Not on non invasive ventilation Risk Factors: BMI 32. Creatinine 1.27, Right sided VATS I do not see any absolute contraindication at this time. We will proceed with complete lung transplant evaluation. Advised her to lose weight meanwhile and advised her to lose at least 15-18 pounds to achieve the target BMI of less than 30. Advised her to participate in pulmonary rehabilitation. I explained to her in detail about the pre-transplant evaluation process, transplant procedure and post transplant evaluation process. I did discuss with her regarding the pros and cons of lung transplantation including survival benefit, quality of life, possible complications, medication side effects and infections. I informed her that the quality infection is the most common cause of was listed after the transplantation. I also explained to her that there is about 30-40% chance of organrejection after transplantation which might result in a decline in lung function, quality of life and respiratory failure. I explained to her about the need for antirejection medications and informedher of the possible side effects from these medications including liver injury, kidney injury and no blood cell count and increased chance of skin cancer. I explained her the need to be compliant with the medications, tests and follow-up visits posttransplant. I explained her the importance of participation in pulmonary rehabilitation and to exercise regularly both pre-and posttransplant and its e ffects on the outcomes posttransplant. * Progress Notes - Wen Stiles - 11/29/2017 8:11 AM EDT mailing to pt ICE letter appt sched 2 questionnaires and map for ICE on 12/15 [phone] * Progress Notes - Wen Stiles - 11/28/2017 3:47 PM EDT pt is sched for Nov ICE appt with 1015 arrival- will update when ready to mail info to pt * Progress Notes - Wen Stiles - 11/28/2017 2:52 PM EDT spoke with pt and we confirmed Dec 15 for ICE appt * Progress Notes - Rolanda Parra - 09/22/2017 7:22 AM EDT Financial letter saved to [employer]. * Progress Notes - Wen Stiles - 09/20/2017 7:27 AM EDT mailing to pt appt letter and schedule, 2 questionniares and map , and refer. MD letter [phone] * Progress Notes - Wen Stiles - 09/19/2017 1:57 PM EDT pt called and stated she noticed she had 2 missed calls from office #- told her my name and that I'd received a ref. for her to be seen by txp physcian- we confimred Brandi. Oct 13 for ICE appt * Progress Notes - Wen Stiles - 09/19/2017 10:44 AM EDT called patient-message states person called has a voice mail that has not been set up no way to leave mssg or call back #-only # listed for patient- will try again later today 09/19 documented in this encounter Plan of Treatment Upcoming Encounters Date Type Department Care Team (Late st Contact Info) Description 08/27/2024 9:30 AM EDT Office Visit [facility] Orthopaedic Surgery & Sports Medicine [address], [address] [place] [address] Cornelio Burns MD [address] [place] [address] documented as of this encounter Procedures Procedure Name Priority Date/Time Associated Diagnosis Comments OTTR LAB RESULTS (MANUAL) Routine 07/12/2018 9:39 AM EDT OTTR LAB RESULTS (MANUAL) Routine 05/30/2018 3:36 PM EDT OTTR LAB RESULTS (MANUAL) Routine 01/17/2018 1:49 PM EST OTTR LAB RESULTS (MANUAL) Routine 12/15/2017 11:47 AM EDT OTTR LAB RESULTS (MANUAL) Routine 12/15/2017 11:23 AM EDT OTTR LAB RESULTS (MANUAL) Routine 11/10/2017 9:49 AM EDT documented in this encounter Results * OTTR LAB RESULTS (MANUAL) (07/12/2018 9:39 AM EDT) Pathologist [facility] External Estimated GFR 41.88 EXTERNAL LAB 07/12/2018 9:39 AM EDT Narrative EXTERNAL LAB - 07/13/2018 11:20 PM EDT Automated LAB Interface Historical Provider MD LAB BLOOD ORDERABLES Taniya l Result Performing Organization Address City/[facility] Co de Phone Number EXTERNAL LAB * OTTR LAB RESULTS (MANUAL) (05/30/2018 3:36 PM EDT) [facility] External Estimated GFR 50.67 EXTERNAL LAB 05/30/2018 3:36 PM EDT Narrative EXTERNAL LAB - 06/01/2018 2:30 PM EDT Automated LAB Interface Historical Provider MD LAB BLOOD ORDERABLES Taniya l Result Performing Organization Address [facility] Co de Phone Number EXTERNAL LAB * OTTR LAB RESULTS (MANUAL) (01/17/2018 1:49 PM EST) [facility] External Estimated GFR 53.29 EXTERNAL LAB 01/17/2018 1:49 PM EST Narrative EXTERNAL LAB - 01/17/2018 2:55 PM EST Automated LAB Interface Historical Provider MD LAB BLOOD ORDERABLES Taniya l Result Performing Organization Address [facility]/State/ZIP Co de Phone Number EXTERNAL LAB * OTTR LAB RESULTS (MANUAL) (12/15/2017 11:47 AM EDT) [facility] External FEV1/FVC (Pre) % 1.92 L EXTERNAL LAB External FVC (Pre) % 56 % EXTERNAL LAB External FEV1/FVC (Pre) % 1.16 L EXTERNAL LAB External FEV1 (Pre) % 43 % EXTERNAL LAB External FEV1/FVC (Pre) % 60 % EXTERNAL LAB External Total Lung Capacity 4.24 EXTERNAL LAB External Total Lung Capacity % 85 % EXTERNAL LAB External DCLO 12.1 ml/min/mmHg EXTERNAL LAB External DCLO 48 % EXTERNAL LAB 12/15/2017 11:4 7 AM EDT Narrative EXTERNAL LAB - 01/02/2018 4:31 PM EST HealthCare Historical Provider MD LAB BLOOD ORDERABLES Taniya l Result EXTERNAL LAB * OTTR LAB RESULTS (MANUAL) (12/15/2017 11:23 AM EDT) External Estimated GFR 46.10 EXTERNAL LAB 12/15/2017 11:2 3 AM EDT Narrative EXTERNAL LAB - 12/15/2017 12:55 PM EDT Automated LAB Interface Historical Provider MD LAB BLOOD ORDERABLES Taniya l Result Performing Organization Address City/[facility] Co de Phone Number EXTERNAL LAB * OTTR LAB RESULTS (MANUAL) (11/10/2017 9:49 AM EDT) External Estimated GFR 41.54 EXTERNAL LAB 11/10/2017 9:49 AM EDT Narrative EXTERNAL LAB - 11/17/2017 8:46 AM EDT Automated LAB Interface Historical Provider MD LAB BLOOD ORDERABLES Taniya l Result Performing Organization Address City/[facility] Co de Phone Number EXTERNAL LAB documented in this encounter Visit Diagnoses Not on filedocumented in this encounter Additional Health Concerns Infection Onset Date Last Indicated Resolved Time Gastrointestinal Rule-Out 12/02/2019 12/02/2019 5:23 AM EDT documented as of this encounter Care Teams Junior High School Teacher Relationship Specialty Start Date End Date Joshua Urban MD [address] [place] [address] PCP - General 06/27/20 Tri Singletary, [place] [address] Wind Turbine Design Engineer Roll Hauler 10/19/17 documented as of this encounter
--- OUTSIDE RECORDS SUMMARY | 2024-07-23 16:38 | XMS_ITS | Data Portability ---
Author Organization [facility] & [place] [facility] ADMIN Address [address] [place] [phone] Assessment No assessment recorded. Plan of Treatment Reminders Order Date Submit Date Provider Last Modified By Organization Details Last Modified Time Details Appointments None record ed. Lab None record ed. Referral None record ed. Procedures None record ed. Surgeries None record ed. Imaging None record ed. Medication Orders None record ed. Patient TargetsNo targets recorded. Patient InstructionsNo instructions recorded. Reason for Referral None Reported. Problems Name Problem SNOMED Code Status Onset Date Resolution Date Notes Provider Name and Address Organization Details Recorded Time Diabetes mellitus 07346210 Active 2023 Mai Saenz null, [facility] & [place] 4 07:30:59 Clostridium difficile colitis 629876736 Active 2023 Mai Saenz null, [facility] - [place] & [place] 4 07:31:08 Compression fracture Active 2023 Mai Saenz null, [facility] - [facility] - [place] & [place] 4 07:31:21 Chronic kidney disease 401729775 Active 2023 Mai Saenz null, [facility] - [place] & [place] 4 07:31:30 Congestive heart failure 40254463 Active 2023 Mai maloney, [facility] - [place] & [place] 4 07:31:43 Chronic obstructive pulmonary disease 85218159 Active 2023 Mai Saenz null, [facility] - [place] & [place] 4 07:31:48 Problem Notes None recorded. Procedures Surgical History Date Name Laterality Status Provider Name and Address Organization Details Recorded Time appendectomy completed Marium RODRIGUEZ [facility] & [place] 02/14/2024 11:17:16 procedure on gallbladder completed Marium RODRIGUEZ [facility] & [place] 02/14/2024 11:17:24 Wrist arthroscopy completed Marium Schuster LPMIKKI [facility] & [place] 02/14/2024 11:17:31 procedure on lower leg completed Marium RODRIGUEZ [facility] & [place] 02/14/2024 11:18:15 procedure on lower leg completed Marium RODRIGUEZ [facility] & [place] 02/14/2024 11:18:18 tonsillectomy completed Marium RODRIGUEZ [facility] & [place] 02/14/2024 11:18:26 ligation of fallopian tube completed Marium RODRIGUEZ [facility] & [place] 02/14/2024 11:18:34 Imaging Results None recorded. Procedure Notes None recorded. Medical Equipment None Reported. Allergies Allergen ID Allergen Name Allergen Category Reaction Reaction Severity Criticality Documentation Date Start Date Code Code System Note Provider Name and Address Organization Details Recorded Time 600330 fluticaso ne / salmetero l medicatio n Not available Not available Not available 02/14/2024 73789 5 RxNorm [facility] Casanova [facility] & [place] 4 07:28:27 274804 aspirin medicatio n Not available Not available Not available 02/14/2024 1191 RxNorm PO[facility] Casanova [facility] & [place] 4 07:28:36 805275 Benadryl medicatio n Not available Not available Not available 02/14/2024 23140 7 RxNorm PO[facility] Casanova - CHRISSIENT [facility] & [place] 4 07:28:42 835709 bupropion Not available Not available Not available Not available 02/14/2024 18016 RxNorm [facility] Casanova - [facility] & [place] 4 07:28:51 539385 Celebrex medicatio n Not available Not available Not available 02/14/2024 29569 7 RxNorm Mai Saenz null, [place] - [facility] - [place] & [place] 4 07:28:57 234304 citalopra m medicatio n Not available Not available Not available 02/14/2024 2556 RxNorm Mai Saenz null, [place] - [facility] - [place] & [place] 4 07:29:03 084837 codeine medicatio n Not available Not available Not available 02/14/2024 2670 RxNorm Mai Saenz null, [place] [facility] - [place] & [place] 4 07:29:09 802490 duloxetin e medicatio n Not available Not available Not available 02/14/2024 01675 RxNorm Mai Saenz null, [place] - [facility] - [place] & [place] 4 07:29:15 114497 erythromy jt medicatio n Not available Not available Not available 02/14/2024 4053 RxNorm Mai Saenz null, [place] - [facility] - [place] & [place] 4 07:29:24 820100 methocarb nneka medicatio n Not available Not available Not available 02/14/2024 6845 RxNorm Mai Saenz null, [place] - [facility] - [place] & [place] 4 07:29:33 586876 naproxen medicatio n Not available Not available Not available 02/14/2024 7258 RxNorm Mai Saenz null, [place] - [facility] - [place] & [place] 4 07:29:40 485503 pregabali n medicatio n Not available Not available Not available 02/14/2024 77160 2 RxNorm Mai Saenz null, [place] - [facility] - [place] & [place] 4 07:29:45 179432 Bactrim medicatio n Not available Not available Not available 02/14/2024 23223 9 RxNorm Mai Saenz null, [place] - [facility] - [place] & [place] 4 07:29:52 810549 Substance with sulfonami de structure and antibacte rial mechanism of action (substanc e) medicatio n Not available Not available Not available 02/14/2024 23913 8003 SNOMED PO[facility] Casanova [facility] & [place] 4 07:29:59 682335 terbutali ne medicatio n Not available Not available Not available 02/14/2024 87030 [facility] [place] 4 07:30:12 252921 tramadol medicatio n Not available Not available Not available 02/14/2024 34798 Rx[facility] [place] 4 07:30:18 423561 trimethop rim medicatio n Not available Not available Not available 02/14/2024 55764 Rx[facility] [place] 4 07:30:38 Medications Name Sig Start Date Stop Date Status Note LastModified by Organization Details LastModified Time quetiapine 25 mg tablet TAKE TWO TABLETS BY MOUTH AT BEDTIME active Not Available Not Available No t Available Anti-Diarrhe al (loperamide) 2 mg tablet active Not Available Not Available Not Available buspirone 5 mg tablet TAKE TWO TABLETS BY MOUTH TWICE DAILY MAY CAUSE DROWSINESS active Not Available Not Available N ot Available metformin 500 mg tablet TAKE TWO TABLETS BY MOUTH TWICE DAILY FOR diabetes active Not Available Not Available No t Available ipratropium 0.5 mg-albuterol 3 mg (2.5 mg base)/3 mL nebulization soln INHALE THE CONTENTS OF 1 VIAL VIA NEBULIZER EVERY 6 HOURS NEEDED FOR SHORTNESS OF BREATH OR WHEEZING active Not Available Not Available Not Available bumetanide 2 mg tablet TAKE ONE TABLET BY MOUTH EVERY DAY active Not Available Not Available No t Available cetirizine 10 mg tablet active Not Available Not Available Not Available atorvastatin 10 mg tablet TAKE ONE TABLET BY MOUTH EVERY DAY AT BEDTIME active Not Available Not Available No t Available fluconazole 150 mg tablet active Not Available Not Available Not Available senna 8.6 mg tablet active Not Available Not Available Not Available ondansetron HCl 4 mg tablet active Not Available Not Available Not Available prednisone 20 mg tablet TAKE ONE TABLET BY MOUTH EVERY DAY FOR 2 DAYS --TAKE WITH FOOD-- active Not Available Not Available Not Available isosorbide mononitrate ER 30 mg tablet,exten ded release 24 hr TAKE ONE TABLET BY MOUTH EVERY DAY active Not Available Not Available No t Available sertraline 100 mg tablet TAKE ONE TABLET BY MOUTH EVERY DAY with 50 MG tablet total daily DOSE is 150mg active Not Available Not Available No t Available Accu-Chek Softclix Lancets USE TWICE DAILY DIRECTED active Not Available Not Available No t Available levofloxacin 250 mg tablet active Not Available Not Available Not Available zinc oxide 20 % topical ointment active Not Available Not Available Not Available vancomycin 125 mg capsule active Not Available Not Available Not Available famotidine 20 mg tablet TAKE ONE TABLET BY MOUTH TWICE DAILY active Not Available Not Available No t Available magnesium oxide 400 mg (241.3 mg magnesium) tablet TAKE ONE TABLET BY MOUTH EVERY DAY active Not Available Not Available No t Available pantoprazole 40 mg tablet,delay ed release TAKE ONE TABLET BY MOUTH EVERY DAY IN THE MORNING FOR GERD active Not Available Not Available No t Available metformin 1,000 mg tablet TAKE ONE TABLET BY MOUTH TWICE DAILY active Not Available Not Available No t Available buspirone 10 mg tablet TAKE ONE TABLET BY MOUTH TWICE DAILY active Not Available Not Available No t Available lidocaine 5 % topical patch active Not Available Not Available Not Available docusate sodium 100 mg capsule TAKE ONE CAPSULE BY MOUTH EVERY DAY FOR stool softner active Not Available Not Available No t Available gabapentin 300 mg capsule TAKE ONE CAPSULE BY MOUTH THREE TIMES DAILY MAY CAUSE DROWSINESS active Not Available Not Available N ot Available omeprazole 20 mg capsule,darrian yed release TAKE TWO CAPSULES BY MOUTH EVERY DAY active Not Available Not Available No t Available mupirocin 2 % topical ointment APPLY TOPICALLY TO THE AFFECTED AREA(S) TWICE DAILY DIRECTED active Not Available Not Available Not Available polyethylene glycol 3350 17 gram/dose oral powder DISSOLVE 17 GRAMS OF POWDER INTO 4 TO 8 OUNCES OF WATER, JUICE, SODA, COFFEE, OR TEA THEN DRINK EVERY DAY IN THE MORNING active Not Available Not Available No t Available levofloxacin 500 mg tablet active Not Available Not Available Not Available oxycodone-ac etaminophen 7.5 mg-325 mg tablet TAKE ONE TABLET BY MOUTH THREE TIMES DAILY NEEDED FOR moderate pain MAY CAUSE DROWSINESS active Not Available Not Available N ot Available levofloxacin 750 mg tablet TAKE ONE TABLET BY MOUTH EVERY OTHER DAY FIRST DOSE DUE 05/31 active Not Available Not Available No t Available sertraline 50 mg tablet TAKE ONE TABLET BY MOUTH EVERY DAY active Not Available Not Available No t Available insulin lispro (U-100) 100 unit/mL subcutaneous pen INJECT SUBCUTANEOU SLY FOUR TIMES DAILY PER sliding scale active Not Available Not Available No t Available metoprolol tartrate 25 mg tablet TAKE 1/2 TABLET BY MOUTH TWICE DAILY active Not Available Not Available No t Available topiramate 50 mg tablet TAKE ONE TABLET BY MOUTH TWICE DAILY active Not Available Not Available No t Available quetiapine 50 mg tablet TAKE ONE TABLET BY MOUTH EVERY DAY active Not Available Not Available No t Available Lantus Solostar U-100 Insulin 100 unit/mL (3 mL) subcutaneous pen INJECT 9 UNITS SUBCUTANEOU SLY TWICE DAILY active Not Available Not Available No t Available Mucus Relief ER 600 mg tablet, extended release active Not Available Not Available Not Available Eliquis 5 mg tablet TAKE ONE TABLET BY MOUTH TWICE DAILY active Not Available Not Available No t Available apixaban active Not Available Not Avai lable Not Available Stimulant Laxative Plus 8.6 mg-50 mg tablet active Not Available Not Available Not Available Humulin 70/30 U-100 Insulin KwikPen 100 unit/mL subcutaneous INJECT 8 UNITS SUBCUTANEOU SLY TWICE DAILY DIRECTED active Not Available Not Available No t Available dapagliflozi n propanediol 5 mg tablet active Not Available Not Available Not Available dapagliflozi n propanediol 10 mg tablet TAKE ONE TABLET BY MOUTH EVERY DAY active Not Available Not Available No t Available Movantik 25 mg tablet TAKE ONE TABLET BY MOUTH EVERY DAY active Not Available Not Available No t Available Accu-Chek Guide test strips USE TWICE DAILY DIRECTED active Not Available Not Available No t Available BD Ultra-Fine Micro Pen Needle 32 gauge x 1/4 USE DIRECTED active Not Available Not Available No t Available Trelegy Ellipta 100 mcg-62.5 mcg-25 mcg powder for inhalation INHALE 1 PUFF BY MOUTH EVERY DAY active Not Available Not Available No t Available Admelog SoloStar U-100 Insulin active Not Available Not Available Not Available Lidocaine Pain Relief 4 % topical patch active Not Available Not Available Not Available Accu-Chek Guide Me Glucose Meter USE TWICE DAILY DIRECTED active Not Available Not Available No t Available insulin glargine-yfg n (U-100) 100 unit/mL (3 mL) subcutaneous pen INJECT 35 UNITS SUBCUTANEOU SLY TWICE DAILY hold FOR blood sugar < 110 active Not Available Not Available Not Available sertraline 150 mg capsule active Not Available Not Available Not Available sertraline 200 mg capsule active Not Available Not Available Not Available Vitals Date Recorded Heart rate Oxygen saturation Oxygen saturation in Arterial blood by Pulse oximetry Body weight Systolic blood pressure Diastolic blood pressure Provider Name and Address Organization Details Last Updated DateTime 4 67 /min 94 % 94 % 96845.7 7 g 124 mm[Hg] 62 mm[Hg] Marium [facility] & [place] 4 11:16:51 Social History None recorded. Functional Status None recorded. Mental Status None recorded. Family History Nothing Reported. Medical History No medical history recorded. Gynecological HistoryNo gynecological history recorded. Obstetrics History GPAL:G 0 P 0 0 0 0 Past Encounters Encounter ID Performer Location Encounter Start Date Encounter Closed Date Diagnosis/Indication Diagnosis SNOMED-CT Code Diagnosis ICD10 Code Diagnosis Note [id number] BRENNA KAURMartín [facility] [address] [place] [address] 7 11/30/2021 11:21:42 11/30/2021 17:05:50 [id number] BRENNA KAURMartín [facility] [address] [place] [address] 7 12/29/2021 12:00:34 12/29/2021 13:04:52 [id number] CATRACHO BUNCHMartín [facility] [address] [place] [address] 7 01/01/2022 15:02:26 01/05/2022 12:08:39 [id number] BRENNA KAURMartín [facility] [address] [place] [address] 7 01/05/2022 15:56:35 01/06/2022 14:26:19 [id number] [facility] [address] [place] [address] 01/13/2022 11:49:38 01/13/2022 14:03:48 [id number] BRENNA KAURzChCherrie Recinos [facility] [address] [place] [address] 01/21/2022 14:07:08 01/21/2022 15:03:54 [id number] [facility] [address] [place] [address] 01/27/2022 14:54:09 01/28/2022 12:07:06 [id number] [facility] [address] [place] [address] 02/01/2022 11:42:01 02/01/2022 12:51:07 [id number] FRAN GEORGE LCSW zz[facility]Mart[facility] [address] [place] [address] 02/01/2022 12:12:33 02/01/2022 13:03:12 [id number] CATRACHO BUNCHzMartínSil[facility] [address] [place] [address] 02/17/2022 10:32:30 02/17/2022 11:05:37 [id number] FRAN GEORGE LCSW [facility]Mart[facility] [address] [place] [address] 02/17/2022 11:06:35 02/17/2022 13:21:44 [id number] Elizabeth Carias-Gary in, BUS DRIVER SUPERVISOR [facility] [address] [place] [address] 02/14/2024 11:03:26 02/14/2024 11:43:51 Clostridioides difficile infection 006169339 A04.72 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 She received Fidaxomici n and 1 dose of Zinplava. Symptoms have resolved at visit today. Educated patient on c diff and future antibiotic use. Counseled of s/sx of concern. No follow up required. Call the office if anything changes or worsens. Health Concerns Section Related Observation LastModified by Organization Detai ls LastModified Time None Recorded Concern Status LastModified by Organization Details LastModified Time None Recorded Advance Directives Directive None Recorded Payers Insurance Date Sequence Insurance Name Policy Number Policy Guevara Covered Member ID Guevara Member ID Guarantor Name 04/21/2024 1 [place] Kassy Bartlett [id number] Kassy Bartlett 02/14/2024 1 [place]MEDICARE REPLACEMENT HMO) [id number] Kassy Bartlett [id number] Kassy Bartlett 04/21/2024 2 [place]ID-[facility] CHOICES - FFS/TRADITION AL Kassy Bartlett [id number] Kassy Bartlett Notes Date Note Type Note Provider Name and Address Organization Details Recorded Time 02/14/2024 text/html patient presents to clinic for hospital follow up regarding Clostridium difficile infection. This was her second relapse. She was treated with Fidaxomicin and given 1 dose of Zinplava. She tolerated both. She has 1 dose of the oral medicaton left. She states her stools have substance. She just reports soft bowel movements. She denies any abdominal pain. Denies any fevers. Denies any hematochezia. She denies any nausea or vomiting. Elizabeth Lyons, BUS DRIVER SUPERVISOR [address] , [place], [address], [facility] & [place] 02/14/2024 11:29:54 OBGyn Episode No OBEpisode recorded.
--- OUTSIDE RECORDS SUMMARY | 2024-07-23 16:38 | XMS_ITS | Encounter Summary ---
Author Organization Healthcare Address [address] [place] [address] Care Team Providers Care Manager Credit Risk Name Role Phone Joshua Urban MD Primary Care Provider [phone] Tri Singletary E DIRECTOR PUBLIC Unavailable Unavailable Reason for Visit * Reason Onset Date Comments HCN - Patient Message 06/12/2024 Encounter Details Date Type Department Care Team (Late st Contact Info) Description 06/12/2024 Telephone [facility]opa[facility] Surgery & Sports Medicine [address] [place] [address] Bing Byers N, TRIM LINE WORKER [address] [place] [address] HCN - Patient Message Social History Tobacco Use Types Packs/Day Years [...] any time in the past 12 m [facility], were you homeless or living in [...] drink first t michelet in the morning (EYE-MAINTENANCE MECHANIC SUPERVISOR) to steady your nerves or to get rid of a hangover? 0 09/26/2022 CAGE Questionnaire Score 0 023 Utilities Answer Date Recorded In the past 12 months has th e electric, gas, oil, or water [employer] threatened to shut off services in your home? No 05/24/2024 Comments Unknown Sex and Gender Information Value Date Recorded Sex Assigned at Not on file Legal Sex Female 7:35 PM EDT Gender Identity Not on file Sexual Orientation Not on file documented as of this encounter Miscellaneous Notes * Telephone Encounter - Lonnie Fong RN - 06/13/2024 9:29 AM EDT Spoke to Odilia and told her she could leave incision open to air as no specifications for wound care were provided * Telephone Encounter - Arabella Blackmon - 06/12/2024 2:38 PM EDT Clinical Concern/Question FAITH Reason for Call: Patient saw Bing today. Odilia with [facility] wants to know what the wound care is for this patient. Do they do dressing changes or leave open to air? Please advise. Best contact number: Other: Odilia with [facility] [phone] Optimal time of day to reach caller: ANYTIME Additional comments/information from caller: None Note: Please do not reply to this message. Follow-up communication and further actions as a result of this message need to be communicated with the patient directly, if the patient is not active onMyChart. If the patient is active on MyChart, they will receive notification of the communication/outcome via Syntric[employer]. documented in this encounter Plan of Treatment Upcoming Encounters Date Type Department Care Team (Late st Contact Info) Description 08/27/2024 9:30 AM EDT Office Visit [facility] [address] [place] [address] Cornelio Burns MD [address] [place] [address] documented as of this encounter Visit Diagnoses Not on filedocumented in this encounter Additional Health Concerns Assessment Noted Time A fall risk assessment has been complete d for the patient 06/12/2024 9:30 AM EDT A Body Mass Index follow-up plan has been documented for the patient 06/12/2024 10:46 AM EDT documented as of this encounter Care Teams Manager Credit Risk Relationship Specialty Start Date End Date Joshua Urban MD [address] [place] [address] PCP - General 06/27/20 Tri Singletary, [place] [address] Nailing Machine Operator Pocket Flap Creasing Machine Operator 10/19/17 documented as of this encounter
--- OUTSIDE RECORDS SUMMARY | 2024-07-23 16:39 | XMS_ITS | Encounter Summary ---
Author Organization Healthcare Address [address] [place] [address] Care Team Providers Care Map Plotter Name Role Phone Joshua Urban MD Primary Care Provider [phone] Tri Singletary DOG LICENSE OFFICER SUPERVISOR Unavailable Unavailable Encounter Details Date Type Department Care Team (Latest Contact Info) Description 07/16/2024 Travel Social History Tobacco Use Types Packs/Day [...] any time in the past 12 m [facility], were you homeless or [...] drink first t michelet in the morning (EYE-EDI COORDINATOR) to steady your nerves or to get [...] Description 08/27/2024 9:30 AM EDT Office Visit [facility] Orthopaedic Surgery & Sports Medicine [address] [place] [address] Cornelio Burns MD [address] [place] [address] documented as of this encounter Visit Diagnoses Not on filedocumented in this encounter Additional Health Concerns Assessment Noted Time A fall risk assessment has been complete d for the patient 07/16/2024 7:58 AM EDT A Body Mass Index follow-up plan has been documented for the patient 07/16/2024 8:28 AM EDT documented as of this encounter Care Teams Map Plotter Relationship Specialty Start Date End Date Joshua Urban MD [address] [place] [address] PCP - General 06/27/20 Tri Singletary, [place] [address] Fun House Operator Retirement Actuary 10/19/17 documented as of this encounter
--- OUTSIDE RECORDS SUMMARY | 2024-07-23 16:39 | XMS_ITS | Data Portability ---
Author Organization Formerly [facility] Address [address] [place] [address] Care Team Providers Care Information Officer Name Role Phone LINDA GRANADO Rotary Pump Operator CAYETANO NASSAR Anthropological Linguist AYRA STEPHENSON Dry Ice Maker KAMLA GOMEZ Pain Management Assessment No assessment recorded. Plan of Treatment Reminders Order Date Submit Date Provider Last Modified By Organization Details Last Modified Time Details Appointments None recorde d. Lab HbA1c (hemogl obin A1c), blood 023 05/15/19 23 [facility], [address] [place] [address], [id number], 11:49:30 Referral None recorde d. Procedures None recorde d. Surgeries None recorde d. Imaging None recorde d. Medication Orders None recorde d. Patient TargetsNo targets recorded. Patient InstructionsNo instructions recorded. Reason for Referral None Reported. Results Created Date Observation Date Name Description Value Unit Range Abnormal Flag Note LastModifiedBy Organization Detail LastModifiedTime 05/15/19 23 05/14/2022 HbA1c (hemo globi n A1c), blood HbA1C 7.0 % Not Available [address], [address], 05/14/2022 11:31:02 Result Notes None recorded. Problems Name Problem SNOMED Code Status Onset Date Resolution Date Notes Provider Name and Address Organization Details Recorded Time Hypertensive disorder 61577924 Active 2022 Mary Stears null, [place] - [facility] 3 11:11:26 Type 2 diabetes mellitus 49744023 Active 2022 Mary Stears null, [place] - [facility] 3 11:11:35 Hypercholester olemia 30728531 Active 2022 Mary Stears null, [place] - [facility] 3 11:11:43 Anxiety 31210228 Active 2022 Mary Stears [place] - [facility] 3 11:11:49 Depressive disorder 73417063 Active 2022 Mary Stears [place] - [facility] 3 11:11:54 Dementia 20980555 Active 2022 Mary Stears [place] - [facility] 3 11:12:50 Migraine 31495541 Active 2022 Mary Stears [place] - [facility] 3 11:13:04 Oxygenator therapy Active 2022 Mary Stears [place] - [facility] 3 11:13:12 Heart disease 09638086 Active 2022 Mary Stears [place] - [facility] 11:13:21 Acid reflux 122898235 Active 2022 Mary Stears [place] - [facility] 3 11:13:28 Chronic kidney disease 748958158 Active 2022 Mary Stears null, [place] - [facility] 3 11:13:39 Problem Notes None recorded. Procedures Surgical History Date Name Laterality Status Provider Name and Address Organization Details Recorded Time cardiac catheterization completed Mary Stears [place] - [facility] 05/14/2022 11:04:38 placement of stent in pulmonary artery completed Mary Stears [place] - [facility] 05/14/2022 11:04:47 Colonoscopy completed Mary Stears [place] [facility] 05/14/2022 11:04:54 sigmoidoscopy completed Mary Stears [place] [facility] 05/14/2022 11:05:01 Hysterectomy completed Mary Stears [place] - [facility] 05/14/2022 11:05:19 Tonsillectomy completed Mary Stears - [facility] 05/14/2022 11:05:24 Appendectomy completed Mary Stears - [facility] 05/14/2022 11:05:29 Cholecystectomy, laparoscopic completed Mary Stears - [facility] 05/14/2022 11:05:34 procedure on wrist completed Mary Stears - [facility] 05/14/2022 11:05:50 Imaging Results None recorded. Procedure Notes None recorded. Medical Equipment None Reported. Allergies Allergen ID Allergen Name Allergen Category Reaction Reaction Severity Criticality Documentation Date Start Date Code Code System Note Provider Name and Address Organization Details Recorded Time [id number] sulfameth oxazole / trimethop rim medicatio n Not available Not available Not available 05/14/2022 50429 RxNorm Mary Stears null, [place] - [facility] 3 11:09:20 405113 acetamino phen medicatio n Not available Not available Not available 05/14/2022 161 RxNorm Mary Stears null[place] - [facility] 3 11:09:59 913267 codeine medicatio n Not available Not available Not available 05/14/2022 2670 RxNorm Mary Stears null, [place] - [facility] 3 11:10:05 027776 aspirin medicatio n Not available Not available Not available 05/14/2022 1191 RxNorm Mary Stears null[place] - [facility] 3 11:10:12 129850 bupropion Not available Not available Not available Not available 05/14/2022 36101 RxNorm Mary Stears null, [place] - [facility] 3 11:10:21 128984 celecoxib medicatio n Not available Not available Not available 05/14/2022 26424 7 RxNorm Mary Stears null[place] - [facility] 3 11:10:30 202223 duloxetin e medicatio n Not available Not available Not available 05/14/2022 46701 RxNorm Mary Stears null, [place] - [facility] 3 11:10:37 566428 erythromy jt medicatio n Not available Not available Not available 05/14/2022 4053 RxNorm Mary Stears null, [place] - [facility] 3 11:10:46 173614 naproxen medicatio n Not available Not available Not available 05/14/2022 7258 RxNorm Mary Stears null, [place] - [facility] 3 11:10:53 812533 Product containin g penicilli n (product) medicatio n Not available Not available Not available 05/14/2022 07305 8001 SNOMED Mary Stears null, [place] - [facility] 3 11:10:59 678838 pregabali n medicatio n Not available Not available Not available 05/14/2022 77231 2 RxNorm Mary Stears null[place] - [facility] 3 11:11:07 784074 tramadol medicatio n Not available Not available Not available 05/14/2022 56337 RxNorm Mary Stears null[place] - [facility] 3 11:11:14 Medications Name Sig Start Date Stop Date Status Note LastModified by Organization Details LastModified Time buspirone 5 mg tablet TAKE ONE TABLET BY MOUTH TWICE DAILY active Not Available Not Available No t Available metformin 500 mg tablet TAKE ONE TABLET BY MOUTH TWICE DAILY active Not Available Not Available No t Available neomycin-po lymyxin-hyd rocort 3.5 mg/mL-10,00 0 unit/mL-1 % ear solution INSTILL 2 DROPS into affected ear(s) THREE TIMES DAILY FOR 5 DAYS 05/14 completed Not Available Not Available Not Available venlafaxine ER 37.5 mg capsule,ext ended release 24 hr TAKE ONE CAPSULE BY MOUTH EVERY DAY IN THE MORNING FOR FOUR DAYS 05/14 completed Not Available Not Available Not Available venlafaxine ER 75 mg capsule,ext ended release 24 hr TAKE ONE CAPSULE BY MOUTH EVERY DAY IN THE MORNING 05/14 completed Not Available Not Available Not Available clindamycin HCl 300 mg capsule TAKE ONE CAPSULE BY MOUTH THREE TIMES DAILY FOR 10 DAYS -- FINISH ALL MEDICINE -- 05/14 completed Not Available Not Available Not Available atorvastati n 10 mg tablet TAKE ONE TABLET BY MOUTH EVERY DAY AT BEDTIME FOR CHOLESTER OL active Not Available Not Available No t Available metoprolol succinate ER 50 mg tablet,exte nded release 24 hr TAKE ONE TABLET BY MOUTH EVERY DAY 05/14 completed Not Available Not Available Not Available famotidine 40 mg tablet TAKE ONE TABLET BY MOUTH EVERY DAY active Not Available Not Available No t Available isosorbide mononitrate ER 30 mg tablet,exte nded release 24 hr TAKE ONE TABLET BY MOUTH EVERY DAY FOR CHEST pain active Not Available Not Available No t Available clonazepam 0.5 mg tablet TAKE ONE TABLET BY MOUTH THREE TIMES DAILY FOR FOURTEEN DAYS, THEN decrease TO 1 TABLET BY MOUTH TWICE DAILY EVERY DAY FOR FOURTEEN DAYS 05/14 completed Not Available Not Available Not Available sertraline 100 mg tablet TAKE 1 AND 1/2 TABLET BY MOUTH EVERY DAY FOR MOOD 05/14 completed Not Available Not Available Not Available quetiapine 200 mg tablet TAKE ONE TABLET BY MOUTH EVERY DAY AT BEDTIME 05/14 completed Not Available Not Available Not Available venlafaxine ER 150 mg capsule,ext ended release 24 hr TAKE ONE CAPSULE BY MOUTH EVERY DAY IN THE MORNING 05/14 completed Not Available Not Available Not Available clopidogrel 75 mg tablet TAKE ONE TABLET BY MOUTH EVERY DAY FOR HEART DISEASE active Not Available Not Available No t Available quetiapine 100 mg tablet TAKE ONE TABLET BY MOUTH EVERY DAY AT BEDTIME 05/14 completed Not Available Not Available Not Available vancomycin 125 mg capsule TAKE ONE CAPSULE BY MOUTH FOUR TIMES DAILY FOR FOURTEEN DAYS -- FINISH ALL MEDICINE -- 05/14 completed Not Available Not Available Not Available propranolol 10 mg tablet TAKE ONE TABLET BY MOUTH THREE TIMES DAILY. DO NOT TAKE IF SYSTOLIC BLOOD PRESSURE IS LESS THAN 120 OR HEART RATE IS LESS THAN 60. active Not Available Not Available No t Available trazodone 100 mg tablet TAKE ONE TABLET BY MOUTH EVERY DAY AT BEDTIME 05/14 completed Not Available Not Available Not Available benzonatate 100 mg capsule TAKE ONE CAPSULE BY MOUTH TWICE DAILY NEEDED FOR cough 05/14 completed Not Available Not Available Not Available pantoprazol e 40 mg tablet,darrian yed release TAKE ONE TABLET BY MOUTH EVERY DAY FOR ACID REFLUX active Not Available Not Available No t Available erythromyci n 5 mg/gram (0.5 %) eye ointment apply TO affected eyelid 2-3 times daily 05/14 completed Not Available Not Available Not Available buspirone 10 mg tablet TAKE ONE TABLET BY MOUTH THREE TIMES DAILY active Not Available Not Available No t Available gabapentin 300 mg capsule TAKE ONE CAPSULE BY MOUTH THREE TIMES DAILY FOR nerve pain MAY CAUSE DROWSINES S active Not Available Not Available No t Available mirtazapine 15 mg tablet TAKE ONE TABLET BY MOUTH EVERY DAY AT BEDTIME 05/14 completed Not Available Not Available Not Available ergocalcife rol (vitamin D2) 1,250 mcg (50,000 unit) capsule TAKE ONE CAPSULE BY MOUTH ONCE A WEEK 05/14 completed Not Available Not Available Not Available insulin lispro (U-100) 100 unit/mL subcutaneou s solution INJECT UP TO 100 UNITS SUBCUTANE OUSLY PER DAY PER omnipod DIRECTED (FOR diabetes) active Not Available Not Available No t Available levofloxaci n 500 mg tablet TAKE ONE TABLET BY MOUTH ONCE DAILY -- FINISH ALL MEDICINE -- 05/14 completed Not Available Not Available Not Available oxycodone-a cetaminophe n 7.5 mg-325 mg tablet TAKE ONE TABLET BY MOUTH FOUR TIMES DAILY NEEDED FOR PAIN MAY CAUSE DROWSINES S active Not Available Not Available No t Available albuterol sulfate HFA 90 mcg/actuati on aerosol inhaler INHALE TWO PUFFS BY MOUTH EVERY 4 HOURS NEEDED FOR SHORTNESS OF BREATH active Not Available Not Available No t Available metformin ER 500 mg tablet,exte nded release 24 hr TAKE TWO TABLETS BY MOUTH TWICE DAILY FOR DIABETES 05/14 completed Not Available Not Available Not Available doxycycline hyclate 100 mg tablet TAKE ONE TABLET BY MOUTH TWICE DAILY FOR 10 DAYS -- FINISH ALL MEDICINE -- 05/14 completed Not Available Not Available Not Available buspirone 15 mg tablet TAKE ONE TABLET BY MOUTH THREE TIMES DAILY FOR MOOD 05/14 completed Not Available Not Available Not Available azithromyci n 500 mg tablet TAKE ONE TABLET BY MOUTH ONCE DAILY FOR 3 DAYS -- FINISH ALL MEDICINE -- 05/14 completed Not Available Not Available Not Available Lexapro 10 mg tablet Take 1 tablet every day by oral route. active Not Available Not Available No t Available Novolog Mix 70-30 FlexPen U-100 Insulin 100 unit/mL subcutaneou s pen active Not Available Not Available Not Available aripiprazol e 5 mg tablet TAKE 1/2 TABLET BY MOUTH EVERY DAY AT BEDTIME 08/31 completed Not Available Not Available Not Available topiramate 50 mg tablet TAKE ONE TABLET BY MOUTH TWICE DAILY FOR MIGRAINES active Not Available Not Available No t Available cholecalcif nella (vitamin D3) 25 mcg (1,000 unit) tablet TAKE ONE TABLET BY MOUTH EVERY DAY 05/14 completed Not Available Not Available Not Available insulin glargine (U-100) 100 unit/mL (3 mL) subcutaneou s pen inject 10 UNITS SUBCUTANE OUSLY EVERY DAY AT BEDTIME 09/16 completed Not Available Not Available Not Available vilazodone 10 mg tablet TAKE ONE TABLET BY MOUTH EVERY EVENING FOR depressio n active Not Available Not Available No t Available Advocate Pen Needle 31 gauge x 316 USE DIRECTED 2022 active Not Available Not Available Not Avai lable Eliquis 5 mg tablet TAKE ONE TABLET BY MOUTH TWICE DAILY FOR BLOOD THINNER active Not Available Not Available No t Available Comfort EZ Pen [place] 32 gauge x 1/4 USE DIRECTED 05/14 completed Not Available Not Available Not Available Farxiga 10 mg tablet TAKE ONE TABLET BY MOUTH EVERY DAY active Not Available Not Available No t Available Humulin 70/30 U-100 Insulin KwikPen 100 unit/mL subcutaneou s INJECT 8 UNITS SUBCUTANE OUSLY TWICE DAILY DIRECTED active Not Available Not Available No t Available Vraylar 1.5 mg capsule TAKE ONE CAPSULE BY MOUTH EVERY DAY IN THE MORNING 05/14 completed Not Available Not Available Not Available Vraylar 3 mg capsule TAKE ONE CAPSULE BY MOUTH EVERY DAY IN THE MORNING 05/14 completed Not Available Not Available Not Available Trintellix 5 mg tablet Take 1 tablet every day by oral route. 09/02 completed Not Available Not Available Not Available Trintellix 10 mg tablet TAKE ONE TABLET BY MOUTH EVERY DAY IN THE MORNING 08/31 completed Not Available Not Available Not Available Accu-Chek Guide test strips USE TO TEST BLOOD SUGAR TWICE DAILY active Not Available Not Available No t Available Dexcom G6 Sensor device USE DIRECTED TO TEST BLOOD GLUCOSE LEVEL CHANGE SENSOR EVERY 10 DAYS active Not Available Not Available No t Available Dexcom G6 Transmitter device USE DIRECTED TO TEST BLOOD GLUCOSE LEVEL active Not Available Not Available No t Available Omnipod Dash Pods (Gen 4) subcutaneou s cartridge USE DIRECTED (CHANGE omnipod every 72 hours) active Not Available Not Available No t Available Accu-Chek Guide Me Glucose Meter USE TO TEST BLOOD SUGAR DIRECTED active Not Available Not Available No t Available Omnipod 5 G6 Intro Kit (Gen 5) subcutaneou s cartridge with controller USE DIRECTED active Not Available Not Available No t Available Vitals Date Recorded Body weight Body mass index (BMI) Body height Respiratory rate Body temperature Heart rate Oxygen saturation Oxygen saturation in Arterial blood by Pulse oximetry Systolic blood pressure Diastolic blood pressure Provider Name and Address Organization Details Last Updated DateTime 3 01095.6 g 22.5 kg/m2 162.56 cm 18 /min 97.4 [degF] 92 /min 97 % 97 % 140 mm[Hg] 76 mm[Hg] Mary Yang [place] - [facility] 3 10:38:38 Date Recorded Body height Body mass index (BMI) Body weight Body temperature Heart rate Oxygen saturation Oxygen saturation in Arterial blood by Pulse oximetry Respiratory rate Systolic blood pressure Diastolic blood pressure Provider Name and Address Organization Details Last Updated DateTime 3 162.56 cm 23.4 kg/m2 39529.6 6 g 97.7 [degF] 86 /min 93 % 93 % 18 /min 136 mm[Hg] 82 mm[Hg] Kassi Earl [place] - [facility] 3 13:54:46 Date Recorded Body height Body mass index (BMI) Body weight Body temperature Heart rate Oxygen saturation Oxygen saturation in Arterial blood by Pulse oximetry Respiratory rate Systolic blood pressure Diastolic blood pressure Provider Name and Address Organization Details Last Updated DateTime 3 162.56 cm 22.3 kg/m2 42288.0 1 g 97.8 [degF] 92 /min 93 % 93 % 18 /min 128 mm[Hg] 78 mm[Hg] Kassi Earl [place] - [facility] 3 13:43:48 Social History Question Answer Notes LastModified by Organizat ion Details LastModified Time Tobacco Smoking Status Current Every Day Smoker Mary Yang null, [place] - [facility] 05/14/2022 11:00:17 Do You Have An Advance Directive? No Daughter Makes Decisions At Times For Kassy Information not available 05/14/2022 Are You Blind Or Do You Have Difficulty Seeing? No Information not available 05/14/2022 What Is Your Level Of Caffeine Consumption? Moderate Information not available 05/14/2022 In The 14 Days Before Symptom Onset, Have You Had Close Contact With A Laboratory-confir med COVID-19 While That Case Was Ill? No Information not available 08/31/2022 In The 14 Days Before Symptom Onset, Have You Had Close Contact With A Person Who Is Under Investigation For COVID-19 While That Person Was Ill? No Information not available 08/31/2022 Have You Been To An Area Known To Be High Risk For COVID-19? No Information not available 08/31/2022 Are You Deaf Or Do You Have Serious Difficulty Hearing? No Information not available 05/14/2022 What Type Of Diet Are You Following? REGULAR Information not available 05/14/2022 Have You Processed Blood Or Body Fluids From An Ebola Virus Disease Patient Without Appropriate PPE? No Information not available 08/31/2022 Do You Reside In Or Have You Traveled To An Area Where Ebola Virus Transmission Is Active? No Information not available 08/31/2022 What Is The Highest Grade Or Level Of School You Have Completed Or The Highest Degree You Have Received? [id number] Information not available 05/14/2022 Have There Been Any Changes To Your Family Or Social Situation? No Information no t available 05/14/2022 What Is The Fluoride Status Of Your Home? Unknown Information not available 05/14/2022 Have You Recently Or Are You Planning To Travel To An Area With Zika Virus? No Information not available 08/31/2022 Do You Have A Medical Power Of Desulfurizer Hand? No Daughter Makes Decisions At Times For Kassy Information not available 05/14/2022 What Was The Date Of Your Most Recent Tobacco Screening? 05/14/2022 Information not available 05/14/2022 What Is Your Current Pack Years? 30ormorepac kyears Information not available 05/14/2022 What Is Your Relationship Status? Information not available 05/14/2022 Do You Have Smoke And Carbon Monoxide Detectors In Your Home? Yes Information not available 05/14/2022 At What Age Did You Start Smoking Tobacco? 16 Information not available 05/14/2022 How Much Tobacco Do You Smoke? 1 PPD 1-1 02/15 Ppd Information not available 05/14/2022 Has Tobacco Cessation Counseling Been Provided? Yes Information not available 08/31/2022 On What Date Was Tobacco Cessation Counseling Provided? 08/31/2022 Information not available 08/31/2022 How Many Years Have You Smoked Tobacco? 46 Information not available 05/14/2022 Do You Have Difficulty Walking Or Climbing Stairs? Yes Information not available 05/14/2022 Sex: Female Functional Status Question Answer Note LastModified by Organizat ion Details LastModified Time Do you use any illicit or recreational drugs? No Information not available 05/14/2022 Do you or have you ever used any other forms of tobacco or nicotine? No Information not available 05/14/2022 What is your level of alcohol consumption? None Information not available 05/14/2022 Are you currently employed? No Information not available 05/14/2022 Do you have transportation difficulties? No Information not available 05/14/2022 Are you able to walk? YESCAROLE spencere Information not available 05/14/2022 Do you have difficulty doing errands alone? No Information not available 05/14/2022 Are you able to care for yourself? Yes Information not available 05/14/2022 Do you have difficulty dressing or bathing? No Information not available 05/14/2022 What is your exercise level? None Information not available 05/14/2022 Mental Status Question Answer Note LastModified by Organizat ion Details LastModified Time Do you feel stressed (tense, restless, nervous, or anxious, or unable to sleep at night)? [id number] Information not available 05/14/2022 Do you have difficulty concentrating, remembering or making decisions? Yes Information no t available 05/14/2022 Family History Relationship Description Onset Age of this Age Resolved Age Notes LastModified by Organization Details LastModified Time Unspecified Relation Heart disease bstears Not available 2022 10:58:18 Unspecified Relation Malignant neoplastic disease bstears Not available 2022 10:58:33 Medical History No medical history recorded. Gynecological History Statement/Question Response Menses Monthly N Date of Last Pap Smear Date of Last Colonoscopy Date of Last Mammogram Most Recent Bone Density Obstetrics History GPAL:G 0 P 0 0 0 0 Immunizations Vaccine Type Date Status Note Provider Nam e and Address Organization Details Recorded Time pneumococcal polysaccharide PPV23 5 completed Mary Stears null, [place] - [facility] 05/14/2022 10:34:23 pneumococcal polysaccharide PPV23 6 completed Mary Stears null, [place] - [facility] 05/14/2022 10:34:23 influenza, unspecified formulation 7 completed Mary Stears null, [place] - [facility] 05/14/2022 10:34:23 Hep B, adult 9 completed Mary Ste[place], [place] [facility] 05/14/2022 10:34:23 Hep B, adult 9 completed Mary Ste[place], [place] [facility] 05/14/2022 10:34:23 Hep B, adult 9 completed Mary Ste[place] [facility] 05/14/2022 10:34:23 Influenza, split virus, quadrivalent, PF 2 completed Mary Stears null, [place] - [facility] 05/14/2022 10:34:23 Influenza, split virus, quadrivalent, PF 7 completed Mary Stears null, [place] - [facility] 05/14/2022 10:34:23 Past Encounters Encounter ID Performer Location Encounter Start Date Encounter Closed Date Diagnosis/Indication Diagnosis SNOMED-CT Code Diagnosis ICD10 Code Diagnosis Note [id number] Chad García APRN [address] [address] 05/14/2022 10:06:58 05/14/2022 11:44:28 Type 2 diabetes mellitus 84594941 Z79.4 pt had a hard time understand ing how to give self bolus with mealseduca tion on carb counting and non glucose diet given to pta1c 7%return 05/20/22 at 1115 for reinforcem ent to omni pod trainingom ni pod settings: 0.75u/hr 18 units a daysmall bolus 1 unitmed bolus 5unitslarg bolus 10units [id number] Chad García APRN [address] [address] 08/31/2022 13:42:19 08/31/2022 15:03:56 Type 2 diabetes mellitus 18920876 Z79.4 pt had a hard time understand ing how to give self bolus with meals, having fluctuatin g blood glucoseedu cation on carb counting and non glucose diet given to pt [id number] Chad García APRN [address] [address] 09/02/2022 13:24:32 09/02/2022 15:38:25 Type 2 diabetes mellitus 27198715 Z79.4 omnipod 5 training done with arnoldo over the phone. daughter at [email or web address] / daughter states she understand training Education about insulin pump [id number] 72385 Z46.81 omnipod 5 training completed by arnoldo from [facility] Section Related Observation LastModified by Organization Detai ls LastModified Time None Recorded Concern Status LastModified by Organization Details LastModified Time None Recorded Advance Directives Directive N: daughter makes decisions at times for Kassy Payers Insurance Date Sequence Insurance Name Policy Number Policy Guevara Covered Member ID Guevara Member ID Guarantor Name 08/30/2022 1 [place] (MEDICARE REPLACEMENT HMO) [id number] Kassy Hartmann Tri [id number] Kassy Tri Notes Date Note Type Note Provider Name and Address Organization Details Recorded Time 05/14/2022 text/html Kassy is a 62 year old female who presents to the office today with concerns ofproblems with omni pod. pt is having issues understanding how it works. glucose today is 234 Chad García APRN [address], [place], [address], [place] - [facility] 05/14/2022 13:36:20 08/31/2022 text/html 62 yr old female presents to discuss dexcom/omnipod. Her blood sugar is staying high in the 200-300 and her omnipod may need adjusted. pt states her pump is not keeping her glucose down. has been giving herself many bolus of 5 units and had a couple times when her glucose has dropped below 50. pt states she is having problems doing her bolus. Chad García APRN [address], [place], [address], [place] - [facility] 08/31/2022 17:32:33 09/02/2022 text/html 62 yr old female presents for omnipod adjustment. pt states she is having problems with hyperglycemia and her pump is only giving her 1 u/day and she is giving herself freq bolus. pt is here today for omnipod 5 training Chad García APRN [address], [place], [address], [place] - [facility] 09/02/2022 15:52:50 OBGyn Episode No OBEpisode recorded.
--- OUTSIDE RECORDS SUMMARY | 2024-07-23 16:39 | XMS_ITS | Clinical Summary ---
Author Organization [employer] Address [address] [place] [address] Care Team Providers Care Scouring Machine Tender Name Role Phone [facility], Provider Not In The System MD Primary Care Provider Unavailable Allergies Active Allergy Reactions Criticality Noted Date Comments Acetaminophen-Codeine Swelling High 02/08/2016 Aspirin Hives,Rash,Swelling High 12/19/2015 Bupropion Anxiety,Other (See Comments) High 12/19/2015 Mental status changes Mental status changes Celecoxib Rash,Other (See Comments),Nausea And Vomiting Low 12/19/2015 Younger-Aayush syndrome Citalopram 05/02/2023 Other reaction(s): SKIN PEEL Diphenhydramine Hives High 05/02/2023 Duloxetine Other (See Comments),Rash High 12/19/2015 Other reaction(s): Hallucinating, Not available Erythromycin Swelling,Hives,Rash ,Other (See Comments) High 12/19/2015 Methocarbamol High 05/02/2023 Other reaction(s): Altered mental status Naproxen Hives,Other (See Comments) High 12/19/2015 Other reaction(s): Angioedema, itching Penicillins Swelling,Hives,Othe r (See Comments),Rash High 12/19/2015 Other reaction(s): I-RASH Pregabalin Other (See Comments) High 12/19/2015 Other reaction(s): Hallucinating, Not available Mental status changes Mental status changes Sulfa (Sulfonamide Antibiotics) Hives High 05/02/2023 Trimethoprim Hives High 05/02/2023 Medications busPIRone (BUSPAR) 5 MG tablet Take 2 tablets (10 mg total) by mouth 2 (two) times daily. 06/08/2023 Active atorvastatin (LIPITOR) 10 MG tablet Take 1 tablet (10 mg total) by mouth nightly. 03/25/2023 Active Trelegy Ellipta 100-62.5-25 mcg DsDv Take 1 puff by mouth daily. 05/30/2023 Active famotidine (PEPCID) 20 MG tablet Take 1 tablet (20 mg total) by mouth 2 (two) times daily. 06/13/2023 Active Lantus Solostar U-100 Insulin 100 unit/mL (3 mL) InPn 9 Units 2 (two) times daily. 06/09/2023 Active isosorbide mononitrate (IMDUR) 30 MG 24 hr tablet Take 1 tablet (30 mg total) by mouth daily. 03/25/2023 Active magnesium oxide (MAG-OX) 400 mg (241.3 mg magnesium) tablet Take 1 tablet (400 mg total) by mouth daily. 05/30/2023 Active metFORMIN (GLUCOPHAGE) 500 MG tablet Take 2 tablets (1,000 mg total) by mouth 2 (two) times daily. 05/17/2023 Active metoprolol tartrate (LOPRESSOR) 25 MG tablet Take 0.5 tablets (12.5 mg total) by mouth 2 (two) times daily. 05/30/2023 Active pantoprazole (PROTONIX) 40 MG tablet Take 1 tablet (40 mg total) by mouth daily. 03/25/2023 Active QUEtiapine (SEROquel) 25 MG tablet Take 2 tablets (50 mg total) by mouth nightly. 05/30/2023 Active sertraline (ZOLOFT) 100 MG tablet Take 1.5 tablets (150 mg total) by mouth daily. 04/19/2023 Active apixaban (Eliquis) 5 mg Tab tablet Take 1 tablet (5 mg total) by mouth 2 (two) times daily. Active Active Problems Problem Noted Date Diagnosed Date Hyperkalemia 06/20/2023 PAD (peripheral artery disease) 06/20/2023 06/20/2023 Obstructive sleep apnea syndrome 09/25/2022 06/20/2023 Hyperlipidemia 09/25/2022 06/20/2023 History of DVT (deep vein thrombosis) 09/25/2022 06/20/2023 Hep B w/o coma 09/25/2022 06/20/2023 COPD (chronic obstructive pulmonary disease) 01/202306/20/2023 Anxiety and depression 09/25/2022 Type 2 diabetes mellitus without complications 0 05/14/2022 06/20/2023 GERD (gastroesophageal reflux disease) 9 06/20/2023 Essential hypertension 06/14/2016 4 CKD (chronic kidney disease) stage 3, GFR 30-59 ml/min 03/26/2016 06/20/2023 Social History Tobacco Use Types Packs/Day Years Used Date Smoking Tobacco: Every Day Cigarettes Tobacco Cessation:Ready to Q uit: Not Asked; Counseling Given: Not Answered Alcohol Use Standard Drinks/Week Comments Not Currently 0 (1 standard drink = 0.6 oz pur e alcohol) Utilities Answer Date Recorded In the past 12 months, has t he electric, gas, oil, or water company threatened to shut off services in your home? No 06/20/2023 Interpersonal Safety Answer Date Record ed How often does anyone, nica luna family and friends, physically hurt you? Never 06/20/2023 How often does anyone, [place]ica [place] family and friends, insult or talk down to you? Never 06/20/2023 How often does anyone, nica luna family and friends, threaten you with harm? Never 06/20/2023 How often does anyone, nica luna family and friends, scream or curse at you? Never 06/20/2023 Housing Stability Answer Date Recorded What is your living situation today? I have a [facility] place to live 06/20/[address] you li ve. Do you have problems with any of the following? None of the above 06/20/2023 Food Insecurity Answer Date Recorded Within the past 12 months, y ou worried that your food would run out before you got money to buy more. Never true 06/20/2023 Within the past 12 months, t he food you bought just didn't last and you didn't have money to get more. Never true 06/20/2023 Transportation Needs Answer Date Record ed In the past 12 months, has l ack of reliable transportation kept you from medical appointments, meetings, work or from getting things needed for daily living? No 06/20/2023 Financial Resource Strain Answer Date R ecorded How hard is it for you to pa y for the very basics like food, housing, medical care, and heating? Would you say it is: Not hard at all 06/20/2023 Employment Answer Date Recorded Do you want help finding or keeping work or a job? I do not need or want help 06/20/2023 Family and Community Support Answer Jose Carlos e Recorded If for any reason you need h elp with day-to-day activities such as bathing, preparing meals, shopping, managing finances, etc., do you get the help you need? I get all the help I need 06/20/2023 Feeling Lonely or Isolated 0 06/19 Educational Attainment Answer Date Beka rded Do you speak a language other than [place]ese at [facility]? No 06/20/2023 Do you want help with school or training? For example, starting or completing job training or getting a high school diploma, GED or equivalent. No 06/20/2023 Physical Activity Answer Date Recorded Number of minutes of exercise per week 0 06/20/2023 Alcohol Use Answer Date Recorded 5 or More Drinks Per Day Past 12 Months 0 12/31/2023 Depression Answer Date Recorded Calculation of above two rows 0 Stress Answer Date Recorded Stress means a situation in which a person feels tense, restless, nervous, or anxious, or is unable to sleep at night because his or her mind is troubled all the time. Do you feel this kind of stress these days? Not at all 06/20/2023 Disabilities Answer Date Recorded Because of a physical, menta l, or emotional condition, do you have serious difficulty concentrating, remembering, or making decisions? (5 years or older) No 06/20/2023 Because of a physical, menta l, or emotional condition, do you have difficulty doing errands alone such as visiting a doctor's office or shopping? (15 years or older) No 06/20/2023 Substance Use Answer Date Recorded How many times in the past y ear have you used prescription drugs for non-medical reasons? Never 06/20/2023 How many times in the past year have you used [place] legal drugs? Never 06/20/2023 Comments Unknown Sex and Gender Information Value Date Recorded Sex Assigned at Not on file Legal Sex Female 5:16 PM CDT Gender Identity Not on file Sexual Orientation Not on file Last Filed Vital Signs Vital Sign Reading Time Taken Comments Blood Pressure 141/96 06/30/2023 7:46 AM EDT Pulse 73 06/30/2023 11:40 AM EDT Temperature 36.3 C (97.3 F) 06/30/2023 7:46 AM EDT Respiratory Rate 20 06/30/2023 7:46 AM EDT Oxygen Saturation 95% 06/30/2023 11:40 AM EDT Inhaled Oxygen Concentration 28% 06/23/2023 1 0:02 PM EDT Weight 74.4 kg (164 lb) 06/20/2023 2:11 AM EDT Height 162.5 cm (5' 3.98 ) 06/20/2023 2:11 AM ED T Body Mass Index 28.17 06/20/2023 2:11 AM EDT Plan of Treatment Health Maintenance Due Date Last Done Comments CT Colonography 1961 Colonoscopy 1961 Colorectal Cancer Screening 1961 Diabetic Kidney Health Evaluation (KED) 1961 FOBT/FIT 1961 Fit-DNA (Cologuard) 1961 Sigmoidoscopy 1961 Diabetic Eye Exam 1971 Diabetic foot exam 1971 HIV Screening 1976 Hepatitis C Screening 1979 DTAP/TDAP/TD VACCINES (1 - Tdap) 1980 Pap Smear 1982 Breast Cancer Screening 2001 Shingles Vaccine (Zoster) (1 of 2) 2011 Pneumococcal 50+ years (2 of 2 - PCV) 12/25/201612/2015, 12/23/2014 Respiratory Syncytial Virus (RSV) Adult or (1 - Risk 60-74 years 1-dose series) 2021 Hemoglobin A1C 06/20/2023 COVID-19 VACCINE ( - season) 2023 Medicare Initial AWV [id number] 02/16/2024 Tobacco Cessation Counseling and Screening (12+) 06/19/2024 06/20/2023 Influenza Vaccine (Season Ended) 2024 Lipid Panel 10/01/2025 10/01/2022 Insurance [employer] ANTHEM MCR ADV MEDICAID QMB Advance Directives For more information, please contact: [phone] * Full Code (Latest Code Status on File) Date Activated Date Inactivated Comments 06/19/2023 11:00 PM 06/30/2023 2:30 PM Care Teams Scouring Machine Tender Relationship Specialty Start Date End Date [facility], Provider Not In The System, [place] [address] PCP - General 06/20/23
--- OUTSIDE RECORDS SUMMARY | 2024-07-23 16:40 | XMS_ITS | Encounter Summary ---
Author Organization Healthcare Address [address] [place] [address] Care Team Providers Care Travel Information Center Supervisor Name Role Phone Joshua Urban MD Primary Care Provider [phone] [facility] ELECTRONIC SECURITY TECHNICIAN Unavailable Unavailable Encounter Details Date Type Department Care Team (Latest Contact Info) Description 05/29/2024 Travel Social History Tobacco Use Types Packs/Day [...] any time in the past 12 m [facility], were you homeless or living in a correction (including now)? No 05/24/2024 CAGE ASSESSMENT Answer [...] drink first t michelet in the morning (EYE-INSECTICIDE SUPERVISOR) to steady your nerves or to [...] Date of Assessment Author No Risk Indicated 05/29/2024 8:00 PM EDT Deidra Lee RN * Question Answer Date of Assessment Author 1. Wish to be (Past 1 Month) No 025 8:00 PM EDT Deidra Lee, CODI 2. Non-Specific Active Suici akanksha Thoughts (Past 1 Month) No 05/29/2024 8:00 PM EDT Rommel Lee RN 6. Suicidal Behavior (Lifetime) No 8:00 PM EDT Deidra Lee RN documented as of this encounter Plan of Treatment Upcoming Encounters Date Type Department Care Team (Late st Contact Info) Description 08/27/2024 9:30 AM EDT Office Visit [facility] [address] [place] [address] Cornelio Burns MD [address] [place] [address] documented as of this encounter Visit Diagnoses Not on filedocumented in this encounter Additional Health Concerns Assessment Noted Time A Body Mass Index follow-up plan has been documented for the patient 06/01/2024 1:33 PM EDT documented as of this encounter Care Teams Travel Information Center Supervisor Relationship Specialty Start Date End Date Joshua Urban MD [address] [id number] PCP - General 06/27/20 [facility], [place] [address] Foreign Language Stenographer Online Advertising Analyst 10/19/17 documented as of this encounter
--- OUTSIDE RECORDS SUMMARY | 2024-07-23 16:40 | XMS_ITS | Encounter Summary ---
Author Organization Healthcare Address [address] [place] [address] Care Team Providers Care Customer Support Manager Name Role Phone Joshua Urban MD Primary Care Provider [phone] Tri Singletary SITE FOREMAN Unavailable Unavailable Encounter Details Date Type Department Care Team (Late st Contact Info) Description 10/01/2022 Lab Requisition [facility] [address] [place] [address] Mitchel Ivey PA [address] [place] [address] Routine general medical examination at a health care facility Social History Tobacco Use Types Packs/Day Years Used Date Smoking Tobacco: Every Day Cigarettes 1 50.4 Started: 1974 Passive Smoke Exposure: Current Smokeless Tobacco: Never Alcohol Use Standard Drinks/Week Comments Never 0 (1 standard drink = 0.6 oz pur e alcohol) CAGE ASSESSMENT Answer Date Recorded Cage unable [...] drink first t michelet in the morning (EYE-BRICK BAKER) to steady your nerves or to get rid of a hangover? 0 09/26/2022 CAGE Questionnaire Score 0 023 Comments Unknown Sex and Gender Information Value Date Recorded Sex Assigned at Not on file Legal Sex Female 7:35 PM EDT Gender Identity Not on file Sexual Orientation Not on file documented as of this encounter Plan of Treatment Upcoming Encounters Date Type Department Care Team (Late st Contact Info) Description 08/27/2024 9:30 AM EDT Office Visit [facility] Orthopaedic Surgery & Sports Medicine [address] [place] [address] Cornelio Burns MD [address] [place] [address] documented as of this encounter Procedures Procedure Name Priority Date/Time Associated Diagnosis Comments MORPHOLOGY Routine 10/01/2022 6:39 AM EDT Routine general medical examination at a [facility] care facility MANUAL DIFFERENTIAL Routine 10/01/2022 6 :39 AM EDT Routine general medical examination at a [facility] care facility ACUTE HEPATITIS PANEL Routine 10/01/2022 6:39 AM EDT Routine general medical examination at a [facility] care facility CBC WITH AUTO DIFFERENTIAL Routine 10/01/2022 6:39 AM EDT Routine general medical examination at a [facility] care facility HEMOGLOBIN A1C Routine 10/01/2022 6:39 AM EDT Routine general medical examination at a [facility] care facility LIPID PROFILE, PLASMA Routine 10/01/2022 6:37 AM EDT Routine general medical examination at a [facility] care facility COMPREHENSIVE METABOLIC PANEL, PLASMA Routine 10/01/2022 6:37 AM EDT Routine general medical examination at a [facility] care facility documented in this encounter Results * Morphology (10/01/2022 6:39 AM EDT) RBC Morphology RBC Morphology Consistent with Indices and RDW LAB HEMATOLOGY METHOD 10/01/2022 10:17 AM EDT [facility]ALTH[facility]ARE LAB Platelet Estimate Platelet smear estimate consistent with automated count LAB HEMATOLOGY METHOD 10/01/2022 10:17 AM EDT [facility]ALTHCARE LAB Blood Venous blood specimen / Unknown Venipuncture / Unknown 10/01/2022 6:39 AM EDT 10/01/2022 7:43 AM EDT us Mitchel Ivey PA LAB BLOOD ORDERABLES Final Resul t [facility] [address] [place], [place] [id number] * (ABNORMAL) Manual Differential (10/01/2022 6:39 AM EDT) Blasts % 0 % LAB HEMATOLOGY METHOD 10/01/2022 10:17 AM EDT [facility]ALTH[facility] LAB Promyelocytes % 0 % LAB HEMATOLOGY METHOD 10/01/2022 10:17 AM EDT [facility]ALTH[facility] LAB Myelocytes % 0 % LAB HEMATOLOGY METHOD 10/01/2022 10:17 AM EDT [facility]ALTH[facility] LAB Metamyelocytes % 0 % LAB HEMATOLOGY METHOD 10/01/2022 10:17 AM EDT [facility] LAB Neutrophils % 45 % LAB HEMATOLOGY METHOD 10/01/2022 10:17 AM EDT [facility]ALTH[facility] LAB Lymphocytes % 29 % LAB HEMATOLOGY METHOD 10/01/2022 10:17 AM EDT [facility]ALTH[facility] LAB Reactive Lymphocytes % 9 % LAB HEMATOLOGY METHOD 10/01/2022 10:17 AM EDT [facility] LAB Monocytes % 15 % LAB HEMATOLOGY METHOD 10/01/2022 10:17 AM EDT [facility] LAB Eosinophils % 1 % LAB HEMATOLOGY METHOD 10/01/2022 10:17 AM EDT [facility]ALTH[facility] LAB Basophils % 1 % LAB HEMATOLOGY METHOD 10/01/2022 10:17 AM EDT [facility]ALTH[facility] LAB Plasma Cells % 10/01/2022 10:17 AM EDT [facility]ALTH[facility]ARE LAB Lymphoma Cells % 10/02/19 10:17 AM EDT HEALTHCARE LAB Hairy Cell % 10/01/2022 10:17 AM EDT HEALTH[facility]ARE LAB Other Cells % 10/01/2022 10:17 AM EDT HEALTHCARE LAB Blasts Absolute 0.00 10*3/UL LAB HEMATOLOGY METHOD 10/01/2022 10:17 AM EDT [facility]ALTH[facility] LAB Promyelocytes Absolute 0.00 10*3/uL LAB HEMATOLOGY METHOD 10/01/2022 10:17 AM EDT [facility]ALTH[facility] LAB Myelocytes Absolute 0.00 10*3/uL LAB HEMATOLOGY METHOD 10/01/2022 10:17 AM EDT [facility]ALTH[facility] LAB Metamyelocytes Absolute 0.00 10*3/uL LAB HEMATOLOGY METHOD 10/01/2022 10:17 AM EDT [facility]ALTH[facility] LAB Neutrophils Absolute 5.21 1.60 - 6.10 10*3/uL LAB HEMATOLOGY METHOD 10/01/2022 10:17 AM EDT [facility]ALTH[facility] LAB Lymphocytes Absolute 3.36 1.20 - 3.90 10*3/uL LAB HEMATOLOGY METHOD 10/01/2022 10:17 AM EDT [facility]ALTH[facility] LAB Reactive Lymphocytes Absolute 1.04 10*3/uL LAB HEMATOLOGY METHOD 10/01/2022 10:17 AM EDT [facility]ALTH[facility] LAB Monocytes Absolute 1.74(H) 0.30 - 0.90 10*3/uL LAB HEMATOLOGY METHOD 10/01/2022 10:17 AM EDT [facility]ALTH[facility] LAB Eosinophils Absolute 0.12 0.00 - 0.50 10*3/uL LAB HEMATOLOGY METHOD 10/01/2022 10:17 AM EDT [facility]ALTH[facility] LAB Basophils Absolute 0.12(H) 0.00 - 0.10 10*3/uL LAB HEMATOLOGY METHOD 10/01/2022 10:17 AM EDT [facility]ALTH[facility] LAB Plasma Cells Absolute 10/01/2022 10:17 AM EDT [facility]ALTHCARE LAB Lymphoma Cells Absolute 10/01/2022 10:17 AM EDT [facility] Hairy Cells Absolute 10/01/2022 10:17 AM EDT HEALTHCARE LAB Other Cells Absolute 10/01/2022 10:17 AM EDT [facility]ALTH[facility]ARE LAB Blood Venous blood specimen / Unknown Venipuncture / Unknown 10/01/2022 6:39 AM EDT 10/01/2022 7:43 AM EDT us Mitchel HOLLY LAB BLOOD ORDERABLES Final Resul t [facility] [address] [place] [address] * (ABNORMAL) CBC and Differential (10/01/2022 6:39 AM EDT) WBC Count 11.58(H) 3.70 - 10.30 10*3/uL LAB HEMATOLOGY METHOD 10/01/2022 10:17 AM EDT [facility] RBC Count 4.62 3.90 - 5.20 10*6/uL LAB HEMATOLOGY METHOD 10/01/2022 10:17 AM EDT [facility] HGB 13.0 11.2 - 15.7 g/dL LAB HEMATOLOGY METHOD 10/01/2022 10:17 AM EDT [facility] HCT 41.1 34.0 - 45.0 % LAB HEMATOLOGY METHOD 10/01/2022 10:17 AM EDT [facility] Platelet Count 299 155 - 369 10*3/uL LAB HEMATOLOGY METHOD 10/01/2022 10:17 AM EDT [facility] MCV 89 79 - 98 fL LAB HEMATOLOGY METHOD 10/01/2022 10:17 AM EDT [facility] MCH 28.1 26.0 - 32.0 pg LAB HEMATOLOGY METHOD 10/01/2022 10:17 AM EDT [facility] MCHC 31.6 30.7 - 35.5 g/dL LAB HEMATOLOGY METHOD 10/01/2022 10:17 AM EDT [facility] RDW 14.6(H) 11.5 - 14.5 % LAB HEMATOLOGY METHOD 10/01/2022 10:17 AM EDT [facility] MPV 10.0 8.8 - 12.5 fL LAB HEMATOLOGY METHOD 10/01/2022 10:17 AM EDT [facility] nRBC 0.0 <=0.0 per 100 WBCs LAB HEMATOLOGY METHOD 10/01/2022 10:17 AM EDT [facility] Differential Type Manual LAB HEMATOLOGY METHOD 10/01/2022 10:17 AM EDT [facility] Blood Venous blood specimen / Unknown Venipuncture / Unknown 10/01/2022 6:39 AM EDT 10/01/2022 7:43 AM EDT [facility] - 10/01/2022 10:17 AM EDT Therapeutic decision making should be based on absolute values, rather than percentages. The previously reported component Neutrophils % is no longer being reported.The previously reported component Lymphocytes % is no longer being reported.The previously reported component Monocytes % is no longer being reported.The previously reported component Eosinophils % is no longer being reported.The previously reported component Basophils % is no longer being reported.The previously reported component Immature Granulocytes % is no longer being reported.The previously reported component Absolute Neutrophils is no longer being reported.The previously reported component Absolute Lymphocytes is no longer being reported.The previously reported component Absolute Monocytes is no longer being reported.The previously reported component Absolute Eosinophils is no longer being reported.The previously reported component Absolute Basophils is no longer being reported.The previously reported component Absolute Immature Granulocytes is no longer being reported. Mitchel HOLLY LAB BLOOD ORDERABLES Final Resul t Performing Organization Address [facility] de Phone Number [facility] [address] [place] [address] * (ABNORMAL) Hemoglobin A1c (10/01/2022 6:39 AM EDT) Hemoglobin A1c 9.3(H) <5.7 % 10/01/2022 11:19 AM EDT HEALTHCARE LAB Blood Venous blood specimen / Unknown Venipuncture / Unknown 10/01/2022 6:39 AM EDT 10/01/2022 7:44 AM EDT [facility] - 10/01/2022 11:19 AM EDT HA1C Interpretive Data: Diagnosis of Diabetes: Diabetic > or = 6.5% Pre-diabetic 5.7 to 6.4% Non-diabetic < or = 5.6% Glycemic Targets for Type I and Type II Diabetics: Non- Adults <7.0% Adults <6.0% Children and Adolescents <7.5% Source: [place] [employer]. Standards of medical care in diabetes,2017. Diabetes Care.2017:40 (suppl 1):S1-S135. HbA1c assay performed by an ion-exchange chromatography method that is certified traceable to the DCCT. Mitchel HOLLY LAB BLOOD ORDERABLES Final Resul t Performing Organization Address [facility] Co de Phone Number [facility] [address] [place] [address] * Hepatitis panel, acute (10/01/2022 6:39 AM EDT) Hepatitis B Surf Antigen Negative Negative 10/01/2022 11:42 AM EDT HEALTHCARE LAB Hepatitis A Antibody IgM Negative Negative 10/01/2022 11:42 AM EDT [facility] Hepatitis B Core Antibody IgM Negative Negative 10/01/2022 11:42 AM EDT [facility] Blood Venous blood specimen / Unknown Venipuncture / Unknown 10/01/2022 6:39 AM EDT 10/01/2022 7:51 AM EDT Narrative HEALTHCARE LAB - 10/01/2022 11:42 AM EDT Hepatitis C Antibody previously reported Positive on patient and will not be repeated on this panel. Patient is expected to test positive for Hepatitis C Antibody for the rest of their life. See previous results below: Hepatitis C Antibody Date Value Ref Range Status 09/25/2022 Positive (A) Negative Final us Mitchel HOLLY LAB BLOOD ORDERABLES Final Resul t [facility]ARE [facility] [address] [place] [address] * (ABNORMAL) Lipid panel (10/01/2022 6:37 AM EDT) Cholesterol, Plasma 219(H) <200 mg/dL 10/01/2022 10:12 AM EDT [facility] Comment: Cholesterol Reference Range (age >17 years): Desirable <200 mg/dL Borderline 200 to 239 mg/dL Undesirable >239 mg/dL HDL 82 >=50 mg/dL 10/01/2022 10:12 AM EDT [facility] Comment: HDL Cholesterol Reference Ranges (age >17 years): Female, acceptable > or = 50 mg/dL Male, acceptable > or = 40 mg/dL Triglycerides, Plasma 172(H) <150 mg/dL 10/01/2022 10:12 AM EDT [facility] Comment: Triglyceride Reference Range (age >17 years): Desirable: <150 mg/dL Borderline high: 150 to 199 mg/dL High: 200 to 499 mg/dL Very high: >499 mg/dL Increased risk of pancreatitis: >1000 mg/dL Cholesterol/HDL Ratio 3 10/01/2022 10:12 AM EDT HEALTHCARE LAB LDL, Calculated 108(H) <100 mg/dL 10:12 AM EDT [facility] Comment: LDL Cholesterol Reference Range (age >17 years): Optimal: <100 mg/dL Near or above optimal: 100 - 129 mg/dL Borderline high: 130 - 159 mg/dL High: 160 - 189 mg/dL Very high: >189 mg/dL LDL Cholesterol Reference Range (age <18 years): Desirable: <110 mg/dL Borderline: 110 - 129 mg/dL Undesirable: >130 mg/dL LDL Cholesterol is calculated using the Moreno/NIH equation. Fasting greater than or equal to 12 hours? Unknown 10/01/2022 10:12 AM EDT [facility] Blood Venous blood specimen / Unknown Venipuncture / Unknown 10/01/2022 6:37 AM EDT 10/01/2022 7:49 AM EDT us Mitchel HOLLY LAB BLOOD ORDERABLES Final Resul t [facility] [address] [place] [address] * (ABNORMAL) Comprehensive metabolic panel (10/01/2022 6:37 AM EDT) Glucose, Plasma 364(H) 74 - 99 mg/dL 10/01/2022 10:12 AM EDT [facility] BUN, Plasma 43(H) 8 - 23 mg/dL 10/01/2022 10:12 AM EDT [facility] Creatinine, Plasma 1.02 0.60 - 1.10 mg/dL 10/01/2022 10:12 AM EDT [facility] BUN/Creatinine Ratio 42 10/01/2022 10:12 AM EDT [facility] Sodium, Plasma 140 136 - 145 mmol/L 10/01/2022 10:12 AM EDT [facility] Potassium, Plasma 5.0(H) 3.7 - 4.8 mmol/L 10/01/2022 10:12 AM EDT [facility] Chloride, Plasma 107 97 - 107 mmol/L 10/01/2022 10:12 AM EDT [facility] CO2, Plasma 27 22 - 29 mmol/L 10/01/2022 10:12 AM EDT [facility] Anion Gap 6 6 - 16 mmol/L 10/01/2022 10:12 AM EDT [facility] Total Calcium, Plasma 9.8 8.9 - 10.2 mg/dL 10/01/2022 10:12 AM EDT [facility] Total Protein 6.5 6.3 - 7.9 g/dL 10/01/2022 10:12 AM EDT [facility] Albumin, Plasma 3.3(L) 3.5 - 5.2 g/dL 10/01/2022 10:12 AM EDT [facility] AST, Plasma 67(H) 9 - 36 U/L 10/01/2022 10:12 AM EDT [facility] ALT, Plasma 67(H) 8 - 33 U/L 10/01/2022 10:12 AM EDT [facility] Alkaline Phosphatase, Plasma 103 46 - 142 U/L 10/01/2022 10:12 AM EDT [facility] Total Bilirubin, Plasma 0.3 0.2 - 1.1 mg/dL 10/01/2022 10:12 AM EDT [facility] eGFRcr 62.7 mL/min/1.7 3m*2 10/01/2022 10:12 AM EDT [facility] Comment:Reported eGFRcr in m L/min/1.73m2 is based the CKD-EPI 2020 equation that does not use a race coefficient. Blood Venous blood specimen / Unknown Venipuncture / Unknown 10/01/2022 6:37 AM EDT 10/01/2022 7:49 AM EDT us Mitchel HOLLY LAB BLOOD ORDERABLES Final Resul t [facility] [address] [place] [address] documented in this encounter Visit Diagnoses Diagnosis Routine general medical examination at a health care facility documented in this encounter Care Teams Customer Support Manager Relationship Specialty Start Date End Date Joshua Urban MD [address] [place] [address] PCP - General 06/27/20 Tri Singletary, [place] [address] Truck Loader Overhead Crane Craft Coordinator 10/19/17 documented as of this encounter
--- OUTSIDE RECORDS SUMMARY | 2024-07-23 16:40 | XMS_ITS | Encounter Summary ---
Author Organization Healthcare Address [address] [place] [address] Care Team Providers Care Realty Loan Specialist Name Role Phone Joshua Urban MD Primary Care Provider [phone] Tri Singletary MANAGER MARKET Unavailable Unavailable Encounter Details Date Type Department Care Team (Latest Contact Info) Description 05/25/2024 Travel Social History Tobacco Use Types Packs/Day [...] any time in the [facility], were you homeless or living [...] drink first t michelet in the morning (EYE-RACECAR DRIVER) to steady your nerves or to [...] Date of Assessment Author No Risk Indicated 05/25/2024 8:00 PM EDT Gideon Rodríguez RN * Question Answer Date of Assessment Author 1. Wish to be (Past 1 Month) No 05/25/2024 8:00 PM EDT Reginald Rodríguez RN 2. Non-Specific Active Suicidal Thoughts (Past 1 Month) No 05/25/2024 8:00 PM EDT Reginald Rodríguez RN 6. Suicidal Behavior (Lifetime) No 05/25/2024 8:00 PM EDT Reginald Rodríguez RN documented as of this encounter Plan of Treatment Upcoming Encounters Date Type Department Care Team (Late st Contact Info) Description 08/27/2024 9:30 AM EDT Office Visit [facility] Orthopaedic Surgery & Sports Medicine [address], [address] [place] [address] Cornelio Burns MD [address] [place] [address] documented as of this encounter Visit Diagnoses Not on filedocumented in this encounter Additional Health Concerns Assessment Noted Time A Body Mass Index follow-up plan has been documented for the patient 06/01/2024 1:33 PM EDT documented as of this encounter Care Teams Realty Loan Specialist Relationship Specialty Start Date End Date Joshua Urban MD [address] [place] [address] PCP - General 06/27/20 Tri Singletary, [place] [address] Eye Clinic Manager [place] Management Specialist 10/19/17 documented as of this encounter
--- OUTSIDE RECORDS SUMMARY | 2024-07-23 16:41 | XMS_ITS | Encounter Summary ---
Author Organization Healthcare Address [address] [place] [address] Care Team Providers Care Acid Wash Operator Name Role Phone Joshua Urban MD Primary Care Provider [phone] Tri Singletary GOVERNOR ASSEMBLER HYDRAULIC Unavailable Unavailable Encounter Details Date Type Department Care Team (Late st Contact Info) Description 12/01/2019 Orders Only External Location [address] [place] [address] Provider, External Social History Tobacco Use Types [...] Description 08/27/2024 9:30 AM EDT Office Visit [facility] [address] [place] [address] Cornelio Burns MD [address] [place] [address] documented as of this encounter Procedures Procedure Name Priority Date/Time Associated Diagnosis Comments CT OUTSIDE IMAGES 12/01/2019 11:30 PM EDT documented in this encounter Results * CT OUTSIDE IMAGES (12/01/2019 11:30 PM EDT) Anatomical Region Laterality Modality Computed Tomogra phy 12/01/2019 11:3 0 PM EDT us External Provider IMG CT PROCEDURES Final Result documented in this encounter Visit Diagnoses Not on filedocumented in this encounter Additional Health Concerns Infection Onset Date Last Indicated Resolved Time Gastrointestinal Rule-Out 12/02/2019 12/02/2019 5:23 AM EDT documented as of this encounter Care Teams Acid Wash Operator Relationship Specialty Start Date End Date Joshua Urban MD [address] [place] [address] PCP - General 06/27/20 Tri Singletary, [place] [address] Refrigeration Systems Installer Shower Screen Installer 10/19/17 documented as of this encounter
--- OUTSIDE RECORDS SUMMARY | 2024-07-23 16:41 | XMS_ITS | Referral Summary ---
Author Organization [employer] Address [address] [place] [address] Care Team Providers Care Radiation Protection Technician Name Role Phone [facility], Provider Not In The System MD [...] your living situation today? I have a [facility] place to live 06/20/2023 Think about the [...] Do you speak a language other than Bulgarian at [facility]? No 06/20/2023 Do you want help [...] 06/20/2023 2:11 AM EDT Plan of Treatment Not on file [facility] MEDICAID B Advance Directives For more information, please contact: [phone] * Full Code (Latest Code Status on File) Date Activated Date Inactivated Comments 06/19/2023 11:00 PM 06/30/2023 2:30 PM Care Teams Radiation Protection Technician Relationship Specialty Start Date End Date Nate, Provider Not In The System, [place] [address] PCP - General 06/20/23
--- OUTSIDE RECORDS SUMMARY | 2024-07-23 16:41 | XMS_ITS | Encounter Summary ---
Author Organization Healthcare Address [address] [place] [address] Care Team Providers Care Director Reactor Projects Name Role Phone Joshua Urban MD Primary Care Provider [phone] Tri Singletary DENTAL INSURANCE BILLER Unavailable Unavailable Encounter Details Date Type Department Care Team (Late st Contact Info) Description 12/02/2019 Orders Only External Location [address] [place] [address] Provider, External Social History Tobacco Use Types [...] Description 08/27/2024 9:30 AM EDT Office Visit [facility] [address], [address] [place] [address] Cornelio Burns MD [address] [place] [address] documented as of this encounter Procedures Procedure Name Priority Date/Time Associated Diagnosis Comments XR OUTSIDE IMAGES 12/02/2019 12:14 AM EDT documented in this encounter Results * XR OUTSIDE IMAGES (12/02/2019 12:14 AM EDT) Anatomical Region Laterality Modality Radiographic Danyelle ging 12/02/2019 12:1 4 AM EDT us External Provider IMG XR PROCEDURES Final Result documented in this encounter Visit Diagnoses Not on filedocumented in this encounter Additional Health Concerns Infection Onset Date Last Indicated Resolved Time Gastrointestinal Rule-Out 12/02/2019 12/02/2019 5:23 AM EDT documented as of this encounter Care Teams Director Reactor Projects Relationship Specialty Start Date End Date Joshua Urban MD [address] [place] [address] PCP - General 06/27/20 Tri Singletary, [place] [address] Trade Mark Attorney Commercial Center Manager 10/19/17 documented as of this encounter
--- OUTSIDE RECORDS SUMMARY | 2024-07-23 16:41 | XMS_ITS | Clinical Summary ---
Author Organization [facility] Address [address] 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 Unavailable Allergies Active Allergy Reactions Criticality Noted Date Comments Acetaminophen-Codeine Swelling High 02/08/2016 Fluticasone-Salmeterol Unknown - Patient states they do not know rxn details Low 09/27/2022 Allergy per home pharmacy Aspirin Hives,Rash,Swelling High 12/19/2015 Bupropion Anxiety,Other - please document in the comment field,Hallucination s Medium 12/19/2015 Mental status changes Mental status changes Celecoxib Rash,Other - please document in the comment field Low 12/19/2015 Younger-Aayush syndrome Duloxetine Hcl Rash,Other - please document in the comment field Low 12/19/2015 Erythromycin Rash,Hives,Angioede ma,Other - please document in the comment field High 12/19/2015 Naproxen Angioedema,Hives High 12/19/2015 Penicillins Hives,Rash,Angioede ma High 12/19/2015 Tolerates ceftriaxone Pregabalin Other - please document in the comment field,Hallucination s Medium 12/19/2015 Mental status changes Mental status changes Sulfamethoxazole-Trime thoprim Other - please document in the comment field,Hives,Nausea Medium 05/20/2016 Tramadol Other - please document in the comment field Low 12/19/2015 Medications apixaban (Eliquis) 5 MG tablet Take 1 tablet by mouth in the morning and 1 tablet before bedtime. Active ARIPiprazole (Abilify) 10 MG tablet Take 1 tablet by mouth every morning. Active atorvastatin (Lipitor) 10 MG tablet Take 1 tablet by mouth daily. Active bumetanide (Bumex) 1 MG tablet Take 1 tablet by mouth every morning. Active dapagliflozin (Farxiga) 5 MG tablet Take 1 tablet by mouth daily. Active isosorbide mononitrate ER (Imdur) 30 MG 24 hr tablet Take 1 tablet by mouth every morning. Do not crush or chew. Active sertraline (Zoloft) 100 MG tablet Take 2 tablets by mouth daily. Active telmisartan (MIcarDIS) 20 MG tablet Take 1 tablet by mouth daily. Active Fluticasone-Umecl idin-Vilant (Trelegy Ellipta) 100-62.5-25 MCG/ACT aerosol powder Inhale 1 puff every morning. Active busPIRone (Buspar) 10 MG tablet Take 1 tablet by mouth in the morning and 1 tablet before bedtime. Active sodium zirconium cyclosilicate (Lokelma) 5 g packet Take 1 packet by mouth in the morning and 1 packet before bedtime. Active guaiFENesin (Mucinex) 600 MG 12 hr tablet Take 2 tablets by mouth in the morning and 2 tablets before bedtime. Do not crush, chew, or split. Active famotidine (Pepcid) 20 MG tablet Take 1 tablet by mouth in the morning and 1 tablet before bedtime. Active insulin aspart (NovoLOG) 100 UNIT/ML injection pen Inject 6 Units under the skin 3 (three) times a day with meals. Plus sliding scale Active gabapentin (Neurontin) 300 MG capsule Take 1 capsule by mouth every 8 hours for 15 days. 45 capsule 06/02/19 25 Active insulin glargine-yfgn 100 UNIT/ML injection vial Inject 14 Units under the skin 2 (two) times a day. 10 mL 06/02/19 25 Active ipratropium-albut nella (Duo-Neb) 0.5-2.5 mg/3 mL nebulizer solution Take 3 mL by nebulization every 6 (six) hours. 180 mL 06/02/19 25 Active metoprolol tartrate 37.5 MG tablet Take 37.5 mg by mouth 2 (two) times a day. 60 tablet 06/02/19 25 Active methocarbamol (Robaxin) 500 MG tablet Take 1 tablet by mouth 3 (three) times a day for 15 days. 45 tablet 06/02/19 25 Active naloxone (Narcan) 4 mg/0.1 mL nasal spray 1. Give 1 spray in nostril for no/slow breathing or cannot wake after opioid use 2. Call 911 3. Repeat in other nostril if symptoms continue 1 each 06/02/19 25 Active traZODone (Desyrel) 50 MG tablet Take 0.5 tablets by mouth at night as needed for sleep. 15 tablet 06/02/19 25 Active polyethylene glycol (Miralax) 17 g packet Take 17 g by mouth 2 (two) times a day. 60 packet 06/02/19 25 025 ergocalciferol (Vitamin D-2) 1.25 MG (84599 UT) capsule Take 1 capsule by mouth 1 (one) time per week. 4 capsule 06/07/19 25 025 melatonin tablet Take 1 tablet by mouth nightly. 30 tablet 06/02/19 25 025 senna-docusate (Andreia-Colace) 8.6-50 MG tablet Take 2 tablets by mouth 2 (two) times a day. 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 025 Overview (05/27/2024): Resume home eliquis upon discharge Acute respiratory failure 05/26/2024 Overview (05/30/2024): Wean O2 as able 1L NC Anxiety and depression 05/26/2024 Overview (05/26/2024): Resume home meds as appropriate Type 2 diabetes mellitus 05/25/2024 Overview (05/26/2024): SSI/CC2 diet as appropriate Closed intertrochanteric fracture of left femur 05/23/2024 Overview (05/29/2024): ORF consult, s/p CMN 05/24 LLE WBAT [facility] with Bing Byers on 06/12 Hyperkalemia 05/23/2024 Overview (05/29/2024): -5.4 on arrival -Continue to monitor, resume home lokelma -05/28: 1x 10mg Lokelma dose for K 5.1 Fall at home, initial encounter 05/23/2024 Overview (05/27/2024): Admit SGT ICU Tertiary, ITSS, AUDIT-C completed 05/24 Vnecn-zo-elrwbon kidney injury 05/23/2024 Overview (05/30/2024): Cr 2.92 on arrival, Baseline ~ 2.4 Avoid nephrotoxic agents as able and renally dose medications IVF resuscitation as needed Frailty 05/23/2024 Overview (05/23/2024): Weak and wheelchair bound Gait disturbance 05/23/2024 Overview (06/01/2024): At baseline difficulty ambulating Atrial fibrillation 09/25/2022 Overview (05/30/2024): Resume home meds as appropriate Switched to enoxaparin from subcutaneous heparin d/t downtrending RAGHAV 05/29: Pt went into afib w/ RVR, back into SR ~4 hours later CHF (congestive heart failure) 09/25/2022 Overview (05/26/2024): Resume home meds as appropriate Cirrhosis 09/25/2022 Overview (05/26/2024): Resume home meds as appropriate COPD (chronic obstructive pulmonary disease) 01/2023 Overview (05/29/2024): On home 2L NC COPD exacerbation tx this hospitalization Prednisone through 05/29 Diabetic neuropathy 09/25/2022 Overview (05/26/2024): Resume home meds as appropriate Hepatitis B 09/25/2022 Overview (06/01/2024): History Hepatitis C 09/25/2022 Overview (06/01/2024): History Complicates care History of DVT (deep vein thrombosis) 09/25/2022 Overview (06/01/2024): Resumed home Eliquis Hyperlipidemia 09/25/2022 Overview (05/28/2024): Resume home meds as appropriate IBS (irritable bowel syndrome) 09/25/2022 Overview (06/01/2024): Monitor bowel movements Schedule bowel regimen and adjust as necessary Leukocytosis 09/25/2022 Overview (05/30/2024): Most likely d/t steroid course for COPD exacerbation CTM GERD (gastroesophageal reflux disease) 9 Overview (06/01/2024): Resumed Pepcid and started calcium carbonate Essential hypertension 06/14/2016 Overview (05/26/2024): Resume home meds as appropriate Resolved Problems Problem Noted Date Diagnosed Date Resolved Date Closed fracture of left hip 05/28/2024 05/30/2024 Fall 05/23/2024 05/23/2024 Suicide attempt by drug augie thomas, initial encounter 09/25/2022 06/01/2024 Nicotine dependence 09/25/2022 06/02/19 Restless legs syndrome 09/25/202206/01 Sleep apnea, obstructive 09/25/2022 TIA (transient ischemic attack) 09/25/2022 06/01/2024 Hyperglycemia 09/25/2022 09/30/2022 CKD (chronic kidney disease) stage 2, GFR 60-89 ml/min 02/23/2021 09/25/2022 Overdose of undetermined intent 09/30/2022 Encounters Date Type Department Care Team Description 07/16/2024 8:40 AM EDT Office Visit [facility] Orthopaedic Surgery & Sports Medicine [address], [address] [place] [phone] Cornelio Burns MD Closed fracture of hip, unspecified laterality, sequela (Primary Dx) 07/16/2024 7:34 AM EDT - 07/16/2024 11:59 PM EDT Hospital Encounter [facility] Radiology [address], [address] [place] [address] Closed fracture of hip, unspecified laterality, sequela Discharge Disposition: Home or Self Care 07/16/2024 Travel 06/12/2024 9:30 AM EDT Office Visit [facility] Orthopaedic Surgery & Sports Medicine [address] [place] [address] Bing Byers, LEGAL ASSISTANT Closed fracture of hip, unspecified laterality, sequela (Primary Dx) 06/12/2024 Telephone [facility] Orthopa[facility] Surgery & Sports Medicine [address] [place] [id number] Bing Byers, LEGAL ASSISTANT HCN - Patient Message 06/12/2024 Travel 05/29/2024 Travel 05/28/2024 Travel 05/26/2024 Travel 05/25/2024 Travel 05/24/2024 7:30 AM EDT - 05/24/2024 10:35 AM EDT Surgery [facility] [address] [place] [address] Cornelio Burns MD Left Intertroch Intramedullary Nail 05/24/2024 7:28 AM EDT Anesthesia Event [facility] [address] [place] [address] Pio Méndez MD Carney Tinsley, Amanda S, LEGAL ASSISTANT, DNP 05/24/2024 Travel 05/23/2024 12:50 PM EDT Anesthesia Event [facility] [address] [place] [address] Manan Aaron DO 05/23/2024 6:14 AM EDT - 06/01/2024 3:23 PM EDT Hospital Encounter [facility] [address] [place] [address] Geoff White MD Griffen, Margaret M, MD Doud, Andrea N, MD Wheelock, Ashli Conley MD Closed fracture of left hip, initial encounter ([facility]) (Primary Dx); COPD exacerbation ([facility]); Hyperkalemia; RAGHAV (acute kidney injury) ([facility]) Discharge Disposition: [facility] Facility 05/23/2024 Orders Only External Location [address] [place] [address] Provider, External 05/23/2024 Orders Only External Location [address] [place] [address] Provider, External 05/23/2024 Orders Only External Location [address] [place] [address] Provider, External 05/23/2024 Orders Only External Location [address] [place] [address] Provider, External 05/23/2024 Orders Only External Location [address] [place] [address] Provider, External 05/23/2024 Orders Only External Location [address] [place] [address] Provider, External 05/23/2024 Travel from Last 3 Months Immunizations Immunization Administration Dates Next Due Hep B, adult 12/04/2018,07/12/2018,05/30/2018 Influenza Vaccine, Quadrival ent, Adjuvanted 11/26/2022 Influenza, Unspecified 12/01/2016 Influenza, high-dose, quadrivalent 04/05/2024 Influenza, injectable, quadr ivalent, preservative free 11/26/2022,03/06/2021,06/04/2017,12/20 Pneumococcal Polysaccharide PPV23 12/26/2015,10/2014 Family History Medical History Relation Name Comments Conversions - Other Cousin alpha-1- antitrypsin deficiency Conversions - Other Father's Brother alph s-3-fqcnxqngoes deficiency Conversions - Other Father's Sister alpha -1-antitrypsin deficiency Conversions - Other Maternal Grandmother Dialysis patient Diabetes Maternal Grandmother Kidney disease Maternal Grandmother Conversions - Other Mother Dialysis patient Diabetes Mother Kidney disease Mother Cardiac disorder Other 1 COPD Other 2 Diabetes Other 3 Other cancer Other 4 Coronary artery disease Other 5 Fami ly history of coronary artery disease Conversions - Other Other 6 diabetes mellitus type 1 Relation Name Status Comments Cousin Father's Brother Father's Sister Maternal Grandmother Mother Other 1 Other 2 Other 3 Other 4 Other 5 Other 6 Social History Tobacco Use Types Packs/Day Years [...] time in the past [address] [facility], were you homeless or living in a snf (including now)? 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) to steady your nerves or to get [...] F) 07/16/2024 7:58 AM EDT Respiratory Rate 14 06/01/2024 3:15 AM EDT Oxygen Saturation 91% 07/16/2024 8:15 AM EDT Inhaled Oxygen Concentration - - Weight 80.7 kg (178 lb) 07/16/2024 7:58 AM EDT Height 165.1 cm (5' 5 ) 07/16/2024 7:58 AM EDT Body Mass Index 29.62 07/16/2024 7:58 AM EDT Plan of Treatment Upcoming Encounters Date Type Department Care Team (Late st Contact Info) Description 08/27/2024 9:30 AM EDT Office Visit [facility] Orthopaedic Surgery & Sports Medicine [address] [place] [address] Cornelio Bunrs MD [address] [place] [address] Health Maintenance Due Date Last Done Comments [facility]-Depression Screening 1961 [facility]-Medicare Annual Wellness (AWV) 1961 [facility]-Infant/Child/Adol SDOH Screenings 1961 Diabetes: Dental Exam 1971 [facility]-DTaP,Tdap,and Td Vaccines (1 - Tdap) 1980 [facility]-Hepatitis A Vaccines (1 of 2 - Risk 2-dose series) 1980 CT Colonography 2006 Colonoscopy 2006 FIT-DNA 2006 FIT 2006 Sigmoidoscopy 2006 [facility]-Breast Cancer Screening 2011 [facility]-Zoster Vaccines (1 of 2) 2011 [facility]-Pneumococcal Vaccine: 50+ Years (3 of 3 - PCV) 12/25/2016 12/26/2015, 12/23/2014 [facility]-Lung Cancer Screening 12/01/20202019, 06/01/2017, 11/25/2016, Additional history exists [facility]-RSV Vaccine: 60+ Years or (1 - Risk 60-74 years 1-dose series) 2021 [id number] Vaccine ( - season) 2023 FOBT 06/22/2024 06/23/2023 [facility]-Colorectal Cancer Screening 06/22/2024 [facility]-Diabetes: Hemoglobin A1C 08/22/202410/2024, 10/01/2022, 12/03/2019, Additional history exists [facility]- SDOH Screenings 11/23/2024 [facility]-Adult SDOH Screenings 11/23/2024 05/24/2024 [facility]-Influenza Vaccine Completed 04/05/2024 , 11/26/2022, 11/26/2022, Additional history exists [facility]-HIV Screening Completed 05/23/2024, 09/25/2022 [facility]-Obesity Intervention Completed 025, 06/12/2024, 05/23/2024 HPV Vaccines Aged Out No longer eligi ble based on patient's age to complete this topic [facility]-HIB Vaccines Aged Out No longer e ligible based on patient's age to complete this topic [facility]-IPV Vaccines Aged Out No longer e ligible based on patient's age to complete this topic [facility]-Rotavirus Vaccines Aged Out No lo nger eligible based on patient's age to complete this topic Medical Devices Implanted Type Area Nutrition Worker Device Identifier Shelf Expiration Date Model / Serial / Lot Screw 10.5x85mm [employer] Ti Lag [employer] - Sna - [id number] Implanted:Qty: 1 on 05/24/2024 by Cornelio Burns MD at [facility] Screw Left: Femur [employer]-[id number] 05/24/2025 [id number] / NA / NA Screw 5x35mm Ti [employer]obahn Lonnie Locking [employer] - Sna - [id number] Implanted:Qty: 1 on 05/24/2024 by Cornelio Burns MD at [facility] Screw Left: Femur [employer]-[id number] 05/24/2025 [id number] / NA / NA Ball-Tip Guidewire [id number] - [id number] Implanted:Qty: 1 on 05/24/2024 by Cornelio Burns MD at [facility] Left: Femur [employer]-[id number] 04/19/2031 [id number] / / Nail Ti Trochanteric [id number] 125deg Lt - [id number] Implanted:Qty: 1 on 05/24/2024 by Cornelio Burns MD at [facility] Left: Femur [employer]-[id number] 04/19/2034 [id number] / / Procedures Procedure Name Priority Date/Time Associated Diagnosis Comments XR HIP LEFT 2 OR 3 VIEWS Routine 07/16/2024 7:48 AM EDT Closed fracture of hip, unspecified laterality, sequela POCT GLUCOSE METER UNSOLICITED RESULTS Routine 06/01/2024 11:41 AM EDT POCT GLUCOSE METER UNSOLICITED RESULTS Routine 06/01/2024 7:26 AM EDT POCT GLUCOSE METER UNSOLICITED RESULTS Routine 05/31/2024 8:16 PM EDT POCT GLUCOSE METER UNSOLICITED RESULTS Routine 05/31/2024 4:29 PM EDT POCT GLUCOSE METER UNSOLICITED RESULTS Routine 05/31/2024 11:48 AM EDT PEP THERAPY Routine 05/31/2024 9:00 AM EDT PAP THERAPY Routine 05/31/2024 9:00 AM EDT POCT GLUCOSE METER UNSOLICITED RESULTS Routine 05/31/2024 8:11 AM EDT OXYGEN THERAPY Routine 05/31/2024 8:00 AM EDT BASIC METABOLIC PANEL, PLASMA Pending Discharge 05/31/2024 4:43 AM EDT CBC W/O DIFFERENTIAL Pending Discharge 05/31/2024 4:43 AM EDT PAP THERAPY Routine 05/31/2024 3:00 AM EDT POCT GLUCOSE METER UNSOLICITED RESULTS Routine 05/30/2024 9:18 PM EDT PEP THERAPY Routine 05/30/2024 9:00 PM EDT PAP THERAPY Routine 05/30/2024 9:00 PM EDT POCT [...] UNSOLICITED RESULTS Routine 05/30/2024 3:14 AM EDT PEP THERAPY Routine 05/30/2024 3:00 AM EDT PAP THERAPY Routine 05/30/2024 3:00 AM EDT BASIC METABOLIC PANEL, PLASMA Routine 05/30/2024 12:03 AM EDT CBC W/O DIFFERENTIAL Routine 05/30/2024 12:03 AM EDT VITAMIN D 25 HYDROXY Routine 05/30/2024 12:03 AM EDT PEP THERAPY Routine 05/29/2024 9:00 PM EDT PAP THERAPY Routine 05/29/2024 9:00 PM EDT POCT GLUCOSE METER UNSOLICITED RESULTS Routine 05/29/2024 8:14 PM EDT OXYGEN THERAPY Routine 05/29/2024 8:00 PM EDT POCT GLUCOSE METER UNSOLICITED RESULTS Routine 05/29/2024 4:49 PM EDT PEP THERAPY Routine 05/29/2024 3:00 PM EDT PAP THERAPY Routine 05/29/2024 3:00 PM EDT XR CHEST 1 VIEW Routine 05/29/2024 12:03 PM EDT ECG ADULT STAT 05/29/2024 11:40 AM EDT POCT GLUCOSE METER UNSOLICITED RESULTS Routine 05/29/2024 11:09 AM EDT PEP THERAPY Routine 05/29/2024 9:00 AM EDT PAP THERAPY Routine 05/29/2024 9:00 AM EDT OXYGEN THERAPY Routine 05/29/2024 8:00 AM EDT POCT GLUCOSE METER UNSOLICITED RESULTS Routine 05/29/2024 7:28 AM EDT CBC W/O DIFFERENTIAL Routine 05/29/2024 3:50 AM EDT BASIC METABOLIC PANEL, PLASMA Routine 05/29/2024 3:50 AM EDT POCT GLUCOSE METER UNSOLICITED RESULTS Routine 05/29/2024 3:35 AM EDT PEP THERAPY Routine 05/29/2024 3:00 AM EDT PAP THERAPY Routine 05/29/2024 3:00 AM EDT PEP THERAPY Routine 05/28/2024 9:00 PM EDT PAP THERAPY Routine 05/28/2024 9:00 PM EDT POCT [...] 1 VIEW Routine 05/28/2024 5:58 AM EDT PEP THERAPY Routine 05/28/2024 3:00 AM EDT PAP THERAPY Routine 05/28/2024 3:00 AM EDT IONIZED CALCIUM, WHOLE BLOOD Routine 05/28/2024 2:46 AM EDT CBC W/O DIFFERENTIAL Routine 05/28/2024 2:46 AM EDT BASIC METABOLIC PANEL, PLASMA Routine 05/28/2024 2:46 AM EDT POCT GLUCOSE METER UNSOLICITED RESULTS Routine 05/27/2024 11:29 PM EDT PEP THERAPY Routine 05/27/2024 9:00 PM EDT PAP THERAPY Routine 05/27/2024 9:00 PM EDT OXYGEN THERAPY Routine 05/27/2024 8:00 PM EDT POCT GLUCOSE METER UNSOLICITED RESULTS Routine 05/27/2024 7:58 PM EDT POCT GLUCOSE METER UNSOLICITED RESULTS Routine 05/27/2024 4:38 PM EDT POCT GLUCOSE METER UNSOLICITED RESULTS Routine 05/27/2024 11:45 AM EDT PEP THERAPY Routine 05/27/2024 11:44 AM EDT PEP THERAPY Routine 05/27/2024 11:44 AM EDT PEP THERAPY Routine 05/27/2024 11:44 AM EDT PEP THERAPY Routine 05/27/2024 11:44 AM EDT PAP THERAPY Routine 05/27/2024 11:44 AM EDT PAP THERAPY Routine 05/27/2024 11:44 AM EDT PAP THERAPY Routine 05/27/2024 11:44 AM EDT PAP THERAPY Routine 05/27/2024 11:44 AM EDT POCT GLUCOSE METER UNSOLICITED RESULTS Routine 05/27/2024 8:52 AM EDT OXYGEN THERAPY Routine 05/27/2024 8:00 AM EDT POCT GLUCOSE METER UNSOLICITED RESULTS Routine 05/27/2024 2:35 AM EDT EXTRA TUBE LAVENDER TOP Routine 05/27/2024 12:46 AM EDT EXTRA TUBES Routine 05/27/2024 12:46 AM EDT PHOSPHORUS, PLASMA Routine 05/27/2024 12:46 AM EDT MAGNESIUM, PLASMA Routine 05/27/2024 12:46 AM EDT IONIZED CALCIUM, WHOLE BLOOD Routine 05/27/2024 12:46 AM EDT BASIC METABOLIC [...] 1 VIEW Routine 05/26/2024 2:50 AM EDT PHOSPHORUS, PLASMA Routine 05/26/2024 1: 34 AM EDT MAGNESIUM, PLASMA Routine 05/26/2024 1:3 4 AM EDT CBC W/O DIFFERENTIAL Routine 05/26/2024 1:34 AM EDT BASIC METABOLIC PANEL, PLASMA Routine [...] 1 VIEW Routine 05/25/2024 3:09 AM EDT MAGNESIUM, PLASMA Routine 05/25/2024 12:25 AM EDT PHOSPHORUS, PLASMA Routine 05/25/2024 12:25 AM EDT BASIC METABOLIC PANEL, PLASMA Routine 05/25/2024 12:25 AM EDT CBC W/O DIFFERENTIAL Routine 05/25/2024 12:25 AM EDT POCT GLUCOSE METER UNSOLICITED RESULTS Routine 05/24/2024 9:20 PM EDT OXYGEN THERAPY Routine 05/24/2024 8:00 PM EDT POCT GLUCOSE METER UNSOLICITED RESULTS Routine 05/24/2024 6:27 PM EDT MAGNESIUM, PLASMA Routine 05/24/2024 11:42 AM EDT PHOSPHORUS, PLASMA Routine 05/24/2024 11:42 AM EDT BASIC METABOLIC PANEL, PLASMA Routine 05/24/2024 11:42 AM EDT CBC W/O DIFFERENTIAL Routine 05/24/2024 11:42 AM EDT POCT GLUCOSE METER UNSOLICITED RESULTS Routine 05/24/2024 11:10 AM EDT XR HIP LEFT 2 OR 3 VIEWS STAT 05/24/2024 10:42 AM EDT POCT GLUCOSE METER UNSOLICITED RESULTS Routine 05/24/2024 10:10 AM EDT FL LESS THAN 1 HOUR (NON-REPORTABLE) Routine 05/24/2024 9:27 AM EDT OXYGEN THERAPY Routine 05/24/2024 8:00 AM EDT PB ANESTHESIA PLACEHOLDER Routine 05/24/2024 7:39 AM EDT MA AN ELECTIVE ENDOTRACHEAL AIRWAY Routine 05/24/2024 7:39 AM EDT INSERTION, INTRAMEDULLARY JESICA, FEMUR 05/24/2024 7:13 AM EDT Closed fracture of left hip, initial encounter ([facility]) POTASSIUM, PLASMA Routine 05/24/2024 1:2 1 AM EDT BLOOD CULTURE (AEROBIC/ANAEROBIC SET) STAT 05/24/2024 12:25 AM EDT N-TERMINAL PROBNP, PLASMA STAT 05/24/2024 12:17 AM EDT MAGNESIUM, PLASMA Routine 05/24/2024 12:17 AM EDT CBC W/O DIFFERENTIAL Routine 05/24/2024 12:17 AM EDT BASIC METABOLIC PANEL, PLASMA Routine 05/24/2024 12:17 AM EDT PHOSPHORUS, PLASMA Routine 05/24/2024 12:17 AM EDT PROTHROMBIN TIME(PT) / INR Routine 05/24/2024 12:17 AM EDT XR CHEST [...] UNSOLICITED RESULTS Routine 05/23/2024 1:17 PM EDT PB POINT OF CARE IMAGING PLACEHOLDER Routine 05/23/2024 12:40 PM EDT SAMRA AURIS SURVEILLANCE CULTURE Routine 05/23/2024 12:00 PM EDT SAMRA AURIS SURVEILLANCE BY PCR Routine 05/23/2024 12:00 PM EDT MULTI DRUG RESISTANCE TEST Routine 05/23/2024 12:00 PM EDT ECHO, ADULT TRANSTHORACIC COMPLETE STAT 05/23/2024 11:53 AM EDT POCT GLUCOSE METER UNSOLICITED RESULTS Routine 05/23/2024 11:08 AM EDT COMPREHENSIVE METABOLIC PANEL, PLASMA STAT 05/23/2024 10:56 AM EDT AMMONIA, PLASMA STAT 05/23/2024 10:56 AM EDT BLOOD GAS PANEL, VENOUS Routine 05/23/2024 10:56 AM EDT PREPARE RBC Routine 05/23/2024 8:21 AM EDT XR CHEST 1 VIEW STAT 05/23/2024 8:00 AM EDT XR KNEE LEFT 3 VIEWS STAT 05/23/2024 8:00 AM EDT XR FEMUR LEFT 2+ VIEWS STAT 8:00 AM EDT XR HIP LEFT 2 OR 3 VIEWS STAT 05/23/2024 8:00 AM EDT HEMOGLOBIN A1C STAT Add-on 05/23/2024 6:52 AM EDT EXTRA TUBE GOLD TOP Routine 05/23/2024 6 :52 AM EDT EXTRA TUBE LIGHT GREEN TOP Routine 05/23/2024 6:52 AM EDT EXTRA TUBES Routine 05/23/2024 6:52 AM EDT N-TERMINAL PROBNP, PLASMA STAT Add-on 05/23/2024 6:52 AM EDT ED HIV 1/2 ANTIBODY/ANTIGEN SCREEN WITH REFLEX TO HIV I/II DIFFERENTIATION STAT 05/23/2024 6:52 AM EDT ED PROTOCOL HIV 1/2 ANTIBODY/ANTIGEN SCREEN W/REFLEX TO HIV 1/2 ANTIBODY DIFFERENTIATION STAT 05/23/2024 6:52 AM EDT BASIC METABOLIC PANEL, PLASMA STAT 05/23/2024 6:52 AM EDT CBC W/O DIFFERENTIAL STAT 05/23/2024 6:52 AM EDT PROTHROMBIN TIME(PT) / INR STAT 05/23/2024 6:52 AM EDT TYPE AND SCREEN STAT 05/23/2024 6:52 AM EDT XR HIP LEFT STRESS VIEW STAT 05/23/2024 6:52 AM EDT PREPARE RBC Routine 05/23/2024 6:28 AM EDT ECG ADULT STAT 05/23/2024 6:24 AM EDT XR MSK OUTSIDE IMAGES 05/23/2024 3:[address] MSK OUTSIDE IMAGES 05/23/2024 3:[address] NEURO OUTSIDE IMAGES 05/23/2024 3:[address] NEURO OUTSIDE IMAGES 05/23/2024 3:40 AM EDT XR OUTSIDE IMAGES 05/23/2024 3:3 0 AM EDT XR MSK OUTSIDE IMAGES 05/23/2024 3:[address] CHEST WO IV CONTRAST Routine 12/02/2019 5:12 AM EDT from Last 3 Months or Most Recently Relevant to Health Maintenance Results * XR Hip Left 2 or 3 Views (07/16/2024 7:48 AM EDT) Only the most recent of3 resultswithin the time period is included. Anatomical Region Laterality Modality Lower Extremities, Hip [...] 8:50 AM Final report signed by Leonor Karmer MD on 07/16/2024 8:51 AM us Bing Byers LEGAL ASSISTANT IMG XR PROCEDURES Final Re sult * (ABNORMAL) POCT glucose meter (06/01/2024 11:41 AM EDT) Only the most recent of41 resultswithin the time period is included. POCT Glucose 194(H) 74 - 99 mg/dL 06/01/2024 11:43 AM EDT [facility] Comment:Accuracy of [...] for testing. Comment 06/01/2024 11:43 AM EDT [facility] Warehouse Analyst ID Dayana Costa [id number] 11:43 AM EDT [facility] Device ID [id number] 06/01/2024 11:43 AM EDT [facility] Specimen Type POC Capillary 06/01/2024 11:43 AM [facility]T [facility] Blood Capillary blood specimen / Unknown 06/01/2024 11:41 AM EDT 06/01/2024 11:43 AM EDT Ashli Whitaker MD LAB POINT OF CARE TEST DOCKED DEVICE UNSOLICITED RESULTS Final Result [facility] [address] [place] [address] * (ABNORMAL) CBC W/O Differential (05/31/2024 4:43 AM EDT) Only the most recent of9 resultswithin the time period is included. WBC Count 14.56(H) 3.70 - 10.30 10*3/uL LAB HEMATOLOGY METHOD 05/31/2024 5:11 AM EDT [facility] RBC Count 3.93 3.90 - 5.20 10*6/uL LAB HEMATOLOGY METHOD 05/31/2024 5:11 AM EDT [facility] HGB 9.8(L) 11.2 - 15.7 g/dL LAB HEMATOLOGY METHOD 05/31/2024 5:11 AM EDT [facility] HCT 32.6(L) 34.0 - 45.0 % LAB HEMATOLOGY METHOD 05/31/2024 5:11 AM EDT [facility] Platelet Count 341 155 - 369 10*3/uL LAB HEMATOLOGY METHOD 05/31/2024 5:11 AM EDT [facility] MCV 83 79 - 98 fL LAB HEMATOLOGY METHOD 05/31/2024 5:11 AM EDT [facility] MCH 24.9(L) 26.0 - 32.0 pg LAB HEMATOLOGY METHOD 05/31/2024 5:11 AM EDT [facility] MCHC 30.1(L) 30.7 - 35.5 g/dL LAB HEMATOLOGY METHOD 05/31/2024 5:11 AM EDT [facility] RDW 17.3(H) 11.5 - 14.5 % LAB HEMATOLOGY METHOD 05/31/2024 5:11 AM EDT [facility] MPV 10.1 8.8 - 12.5 fL LAB HEMATOLOGY METHOD 05/31/2024 5:11 AM EDT [facility] nRBC 0.0 <=0.0 per 100 WBCs LAB HEMATOLOGY METHOD 05/31/2024 5:11 AM EDT [facility] Blood Venous blood specimen / Unknown Venipuncture / Unknown 05/31/2024 4:43 AM EDT 05/31/2024 4:59 AM EDT us Lauren Vanessa PA LAB BLOOD ORDERABLES Final Resu lt [facility] [address] [place] [address] * (ABNORMAL) Basic metabolic panel (05/31/2024 4:43 AM EDT) Only the most recent of10 resultswithin the time period is included. Glucose, Plasma 142(H) 74 - 99 mg/dL 05/31/2024 6:01 AM EDT [facility] BUN, Plasma 95(H) 8 - 23 mg/dL 05/31/2024 6:01 AM EDT [facility] Creatinine, Plasma 1.99(H) 0.60 - 1.10 mg/dL 05/31/2024 6:01 AM EDT [facility] BUN/Creatinine Ratio 48 05/31/2024 6:01 AM EDT [facility] Sodium, Plasma 139 136 - 145 mmol/L 05/31/2024 6:01 AM EDT [facility] Potassium, Plasma 5.2(H) 3.6 - 4.9 mmol/L 05/31/2024 6:01 AM EDT [facility] Chloride, Plasma 105 97 - 107 mmol/L 05/31/2024 6:01 AM EDT [facility] CO2, Plasma 22 22 - 29 mmol/L 05/31/2024 6:01 AM EDT [facility] Anion Gap 12 6 - 16 mmol/L 05/31/2024 6:01 AM EDT [facility] Total Calcium, Plasma 8.9 8.9 - 10.2 mg/dL 05/31/2024 6:01 AM EDT [facility] eGFRcr 27.8 mL/min/1.7 3m*2 05/31/2024 6:01 AM EDT [facility] Comment:Reported eGFRcr in m L/min/1.73m2 is based the CKD-EPI 2020 equation that does not use a race coefficient. Blood Venous blood specimen / Unknown Venipuncture / Unknown 05/31/2024 4:43 AM EDT 05/31/2024 4:57 AM EDT Lauren I Equifaxy PA LAB BLOOD ORDERABLES Final Resu lt Performing Organization Address [facility] Co de Phone Number [facility] [address] [place] [address] * (ABNORMAL) Vitamin D 25 Hydroxy (05/30/2024 12:03 AM EDT) Vitamin D 25 Hydroxy 8.8(L) 20.0 - 80.0 ng/mL 05/30/2024 2:57 AM EDT [facility] Blood Venous blood specimen / Unknown Venipuncture / Unknown 05/30/2024 12:03 AM EDT 05/30/2024 12:16 AM EDT Narrative [facility] - 05/30/2024 2:57 AM EDT Testing performed on [employer] Molecular Spectroscopist, standardized against NIST SRM 2972. When testing [...] to 80 ng/mL Possible toxicity: >100 ng/mL Lauren I Equifaxy PA LAB BLOOD ORDERABLES Final Resu lt Performing Organization Address [facility] Co de Phone Number [facility] [address] [place] [address] * XR Chest 1 View (05/29/2024 12:03 PM EDT) Only the most recent of6 resultswithin the time period is included. Anatomical Region Laterality Modality Chest Digital Radiogra [...] signing this report, I, the attending physician, alexthat I have personally reviewed the images/data for the aboveexamination(s) and agree with the final edited report. Drafted by Go Alvarez MD on 05/29/2024 1:04 PM Final report signed by Dewayne Medrano MD on 05/29/2024 2:06 PM Lauren HOLLY IMG XR PROCEDURES Final Result * ECG Adult (05/29/2024 11:40 AM EDT) Only the most recent of3 resultswithin the time period is included. EKG DIAGNOSIS CLASS Abnormal MUSE ECG Ventricular Rate 111 BPM MUSE ECG QRSD Interval 76 ms MUSE ECG QT Interval 334 ms MUSE ECG QTC Interval 454 ms MUSE ECG R [place] -19 degrees MUSE ECG T Wave [place] 14 degrees MUSE ECG Diagnosis Atrial fibrillation [...] ORDERABLES Final Result MUSE ECG * (ABNORMAL) Ionized calcium, whole blood (05/28/2024 2:46 AM EDT) Only the most recent of2 resultswithin the time period is included. Ionized Calcium, Whole Blood 4.5(L) 4.6 - 5.1 mg/dL LAB HEMATOLOGY METHOD 05/28/2024 2:58 AM EDT [facility] Blood Venous blood specimen / Unknown Venipuncture / Unknown 05/28/2024 2:46 AM EDT 05/28/2024 2:57 AM EDT Dick HOLLY LAB BLOOD ORDERABLES Final Res ult Performing Organization Address City/[facility]/ZIP Co de Phone Number [facility] [address] [place] [address] * Lavender Top (05/27/2024 12:46 AM EDT) Extra Hold for add-ons 05/27/2024 3:23 AM EDT [facility] Comment:Auto resulted. Blood Venous blood specimen / Unknown 05/27/2024 12:46 AM EDT 05/27/2024 12:51 AM EDT Lakesha Martin MD LAB BLOOD ORDERABLES Final Result Performing Organization Address City/[facility]/ZIP Co de Phone Number [facility] [address] [place] [address] * (ABNORMAL) Phosphorus, Plasma (05/27/2024 12:46 AM EDT) Only the most recent of5 resultswithin the time period is included. Phosphorus, Plasma 4.6(H) 2.5 - 4.5 mg/dL 05/27/2024 1:30 AM EDT [facility] Blood Venous blood specimen / Unknown Venipuncture / Unknown 05/27/2024 12:46 AM EDT 05/27/2024 12:51 AM EDT Rukhsana Dawkins LEGAL ASSISTANT LAB BLOOD ORDERABLES Final Result Performing Organization Address [facility] Co de Phone Number [facility] [address] [place] [address] * Magnesium, Plasma (05/27/2024 12:46 AM EDT) Only the most recent of5 resultswithin the time period is included. Magnesium, Plasma 2.1 1.9 - 2.4 mg/dL 05/27/2024 1:30 AM EDT [facility] Blood Venous blood specimen / Unknown Venipuncture / Unknown 05/27/2024 12:46 AM EDT 05/27/2024 12:51 AM EDT [employer] Javi Dawkins LEGAL ASSISTANT LAB BLOOD ORDERABLES Final Result Performing Organization Address [facility] Co de Phone Number [facility] [address] [place] [address] * XR Tibia Fibula Left 2+ Views [...] Leonor Kramer MD on 05/25/2024 9:04 AM Lakesha Martin MD IMG XR PROCEDURES Final Re [...] Leonor Kramer MD on 05/25/2024 9:04 AM Lakesha Martin MD IMG XR PROCEDURES Final Re [...] Leonor Kramer MD on 05/25/2024 9:04 AM Lakesha Martin MD IMG XR PROCEDURES Final Re [...] Leonor Kramer MD on 05/25/2024 9:04 AM Lakesha Martin MD IMG XR PROCEDURES Final Re sult * FL Less than 1 Hour Intraoperative (05/24/2024 9:27 AM EDT) Narrative IMAGING - 05/24/2024 9:28 AM EDT Images were obtained for surgical purposes. See Cornelio Burns's surgical note in the patient's chart for the findings. Cornelio Burns MD IMG FLUOROSCOPY PROCEDURES Fi nal Result IMAGING * MA AN ELECTIVE ENDOTRACHEAL AIRWAY, PB ANESTHESIA PLACEHOLDER (05/24/2024 7:39 AM EDT) Narrative Anitha Ortiz CRNA - 05/24/2024 7:39 AM EDT Anitha Ortiz CRNA 05/24/2024 8:20 AM Airway Date/Time: 05/24/2024 7:39 AM Reason: elective Airway not difficult General Information and Staff Patient location during procedure: OR LACE BURN OUT TENDER: Anitha Ortiz CRNA Performed: LACE BURN OUT TENDER Patient Condition Indications for airway management: anesthesia [...] Additional Comments Atraumatic. No change to dentition. Pio Méndez MD ANESTHESIA ORDERABLES Final Resu lt * Potassium (05/24/2024 1:21 AM EDT) Potassium, Plasma 4.8 3.6 - 4.9 mmol/L 05/24/2024 1:50 AM EDT [facility] Blood Venous blood specimen / Unknown Venipuncture / Unknown 05/24/2024 1:21 AM EDT 05/24/2024 1:28 AM EDT us Ronald HOLLY LAB BLOOD ORDERABLES Final R esult Performing Organization Address City/[facility]/[place] [address] * Blood Culture (Aerobic/Anaerobet Set) (05/24/2024 12:25 AM EDT) [facility] Culture No growth at day 5 GARRISON 05/29/2024 2:02 AM EDT [facility] Blood Venous blood specimen / Unknown Venipuncture / Unknown 05/24/2024 12:25 AM EDT 05/24/2024 1:30 AM EDT [facility] LAB MICROBIOLOGY - GENERAL O RDERABLES Final Result Performing Organization Address City/[facility]/[place] [address] * (ABNORMAL) N-Terminal Probnp, Plasma (05/24/2024 12:17 AM EDT) Only the most recent of2 resultswithin the time period is included. N-Terminal, PROBNP, Plasma 1,091(H) 0 - 899 pg/mL 05/24/2024 1:04 AM EDT [facility] Blood Venous blood specimen / Unknown Venipuncture / Unknown 05/24/2024 12:17 AM EDT 05/24/2024 12:34 AM EDT Ronald HOLLY LAB BLOOD ORDERABLES Final R esult Performing Organization Address City/[facility]/ZIP Co de Phone Number [facility] [address] [place] [address] * (ABNORMAL) Prothrombin Time/INR (05/24/2024 12:17 AM EDT) Only the most recent of2 resultswithin the time period is included. Prothrombin Time 18.7(H) 12.0 - 14.3 sec LAB COAGULATION METHOD 05/24/2024 12:57 AM EDT [facility] INR 1.5(H) 0.9 - 1.1 LAB COAGULATION METHOD 05/24/2024 12:57 AM EDT [facility] Blood Venous blood specimen / Unknown Venipuncture / Unknown 05/24/2024 12:17 AM EDT 05/24/2024 12:34 AM EDT Narrative [facility] - 05/24/2024 12:57 AM EDT OPTIMAL INR RANGES FOR PATIENT ON ORAL ANTICOAGULANT THERAPY Prevention of venous thromboembolism INR 2.0 to 3.0 In patients with heart disease: Atrial fibrillation INR 2.0 to 3.0 Valvular heart disease INR 2.0 to 3.0 Tissue heart valves INR 2.0 to 3.0 Mechanical prosthetic valves INR 2.5 to 3.5 Prevention of recurrent IL INR 2.5 to 3.5 Bing Byers APRN LAB BLOOD ORDERABLES Final Result Performing Organization Address City/[facility]/ZIP Co de Phone Number [facility] [address] [place] [address] * (ABNORMAL) Anti Xa Level Low Molecular Weight (05/23/2024 2:25 PM EDT) Anti Xa Level Low Molecular Weight Heparin >2.00(HH) <2.00 IU/mL LAB COAGULATION METHOD 05/23/2024 3:24 PM EDT [facility] Blood Venous blood specimen / Unknown Venipuncture / Unknown 05/23/2024 2:25 PM EDT 05/23/2024 2:34 PM EDT Narrative [facility] - 05/23/2024 3:24 PM EDT Therapeutic Range: LMWH enoxaparin 1mg/kg/dose, 12hrs - peak (3-5 hours after dose): 0.5 - 1.0 IU/mL LMWH enoxaparin 1.5mg/kg/dose, 24hrs - peak (3-5 hours after dose): 1.0 - 2.0 IU/mL LMWH enoxaparin prophylaxis: Not established us Mihaela Patrick LEGAL ASSISTANT LAB BLOOD ORDERABLES Taniya suárez Result [facility] [address] [place] [address] * (ABNORMAL) Renal function panel (05/23/2024 1:24 PM EDT) Glucose, Plasma 128(H) 74 - 99 mg/dL 05/23/2024 2:19 PM EDT [facility] BUN, Plasma 105(H) 8 - 23 mg/dL 05/23/2024 2:19 PM EDT [facility] Creatinine, Plasma 2.68(H) 0.60 - 1.10 mg/dL 05/23/2024 2:19 PM EDT [facility] BUN/Creatinine Ratio 39 05/23/2024 2:19 PM EDT [facility] Sodium, Plasma 142 136 - 145 mmol/L 05/23/2024 2:19 PM EDT [facility] Potassium, Plasma 5.1(H) 3.6 - 4.9 mmol/L 05/23/2024 2:19 PM EDT [facility] Chloride, Plasma 105 97 - 107 mmol/L 05/23/2024 2:19 PM EDT [facility] CO2, Plasma 25 22 - 29 mmol/L 05/23/2024 2:19 PM EDT [facility] Anion Gap 12 6 - 16 mmol/L 05/23/2024 2:19 PM EDT [facility] Total Calcium, Plasma 8.9 8.9 - 10.2 mg/dL 05/23/2024 2:19 PM EDT [facility] Phosphorus, Plasma 5.9(H) 2.5 - 4.5 mg/dL 05/23/2024 2:19 PM EDT [facility] Albumin, Plasma 3.1(L) 3.5 - 5.2 g/dL 05/23/2024 2:19 PM EDT [facility] eGFRcr 19.4 mL/min/1.7 3m*2 05/23/2024 2:19 PM EDT [facility] Comment:Reported eGFRcr in m L/min/1.73m2 is based the CKD-EPI 2020 equation that does not use a race coefficient. Blood Venous blood specimen / Unknown Venipuncture / Unknown 05/23/2024 1:24 PM EDT 05/23/2024 1:42 PM EDT us Irene Sparks APRN, DNP LAB BLOOD ORDERABLES F inal Result [facility] [address] [place] [address] * (ABNORMAL) POCT arterial blood gas gem (05/23/2024 1:17 PM EDT) pH, Arterial 7.41 7.31 - 7.42 05/23/2024 1:19 PM EDT [facility] pCO2, Arterial 45 35 - 48 mm Hg 05/23/2024 1:19 PM EDT [facility] pO2, Arterial 58(LL) >80 mm Hg 05/23/2024 1:19 PM EDT [facility] SO2, Arterial 92(L) 94 - 98 % 05/23/2024 1:19 PM EDT [facility] FIO2 32.0 % 05/23/2024 1:19 PM EDT [facility] Base Excess, Arterial 3.4(H) -2 - 3 mmol/L 05/23/2024 1:19 PM EDT [facility] HCO3, Arterial 28.5(H) 22 - 26 mmol/L 05/23/2024 1:19 PM EDT [facility] Total Hemoglobin, Arterial, Whole Blood 9.3(L) 11.2 - 15.7 g/dL 05/23/2024 1:19 PM EDT [facility] Hematocrit, Arterial 28.0(L) 34.0 - 45.0 % 05/23/2024 1:19 PM EDT [facility] Sodium, Arterial 136 136 - 145 mmol/L 05/23/2024 1:19 PM EDT [facility] Potassium, Arterial 4.7 3.6 - 4.9 mmol/L 05/23/2024 1:19 PM EDT [facility] Chloride, Whole Blood 107 97 - 107 mmol/L 05/23/2024 1:19 PM EDT [facility] Glucose, Arterial 128(H) 74 - 99 mg/dL 05/23/2024 1:19 PM EDT [facility] Ionized Calcium, Arterial 5.0 4.6 - 5.1 mg/dL 05/23/2024 1:19 PM EDT [facility] Lactate, Arterial 0.7 0.5 - 1.6 mmol/L 05/23/2024 1:19 PM EDT [facility] Body Temperature 37.2 Celsius 05/23/2024 1:19 PM EDT [facility] pH, Temp Corrected, Arterial 7.41 7.31 - 7.42 05/23/2024 1:19 PM EDT [facility] pCO2, Temp Corrected, Arterial 45 35 - 48 mm Hg 05/23/2024 1:19 PM EDT [facility] pO2, Temp Corrected, Arterial 59(LL) >80 mm Hg 05/23/2024 1:19 PM EDT [facility] Warehouse Analyst ID Booker Marquez 05/23/2024 1:19 PM EDT [facility] Acknowledged, Notified By AKIN 05/23/2024 1:19 PM EDT [facility] Critical Notify Time 1318 05/23/2024 1:19 PM EDT [facility] Critical Readback Y 05/23/2024 1:19 PM EDT [facility] Blood, Arterial Whole blood specimen / Unknown 05/23/2024 1:17 PM EDT 05/23/2024 1:19 PM EDT us Lakesha Martin MD LAB POINT OF CARE TEST DOCKED DEVICE UNSOLICITED RESULTS Final Result [facility] [address] [place] [id number] * PB POINT OF CARE IMAGING PLACEHOLDER (05/23/2024 12:40 PM EDT) Narrative Ross Chi MD - 05/23/2024 12:40 PM EDT Ross Chi MD 05/23/2024 1:59 PM Peripheral Block Patient location during procedure: ICU Start time: 05/23/2024 12:40 PM End time: 05/23/2024 12:45 PM Reason for block: post-op pain management Block is at surgeon's request Staffing Performed: Resident Anesthesiologist: Ross Chi MD Resident: Manan Aaron DO Preanesthetic Checklist Completed: patient identified, IV checked, site marked, risks and benefits discussed, surgical consent, monitors and equipment checked, pre-op evaluation and timeout performed Peripheral Block Patient position: supine Prep: ChloraPrep Patient monitoring: continuous pulse ox, heart rate and cardiac cath lab radiology technologist Anesthesia block type: FI block. Laterality: left Injection technique: single-shot Guidance: ultrasound guided Local infiltration: lidocaine Ultrasound used for needle placement AND ultrasound image retained Needle Needle type: short-bevel Needle gauge: 21 G Needle length: 5 cm Needle localization: anatomical landmarks and ultrasound guidance Medications Administered 0.25% ropivacaine - Injection 30 mL - 05/23/2024 12:40:00 PM Assessment Injection assessment: negative aspiration for heme, local visualized surrounding nerve on ultrasound and incremental injection Paresthesia pain: none Heart rate change: no Slow fractionated injection: yes Additional Notes Femoral artery and nerve visualized. Fascia Iliaca visualized superficial to the iliacus muscle. Sartorius muscle was identified medial. Once this was done, the probe was placed in a long axis view of the fascia iliaca. The needle was guided in an in-plane technique and the local anesthetic was noted to spread the iliacus muscle from the fascia directed superiorly. A total of 30 cc of 0.25% Ropivacaine. Aspiration was negative for heme, blood, and CSF. No immediate complications noted. us Ross Chi MD ANESTHESIA ORDERABLES Final Result * (ABNORMAL) Samra auris Surveillance by PCR (05/23/2024 12:00 PM EDT) Samra auris PCR Result Invalid(A ) Not Detected 05/24/2024 11:37 AM EDT [facility] Swab (Axilla and Groin) Non-blood Collection / Unknown 05/23/2024 12:00 PM EDT 05/23/2024 12:08 PM EDT Narrative [facility] - 05/24/2024 11:37 AM EDT This PCR assay was developed and its performance characteristics determined by [facility] as appropriate for clinical purposes. This assay has not been cleared or approved by the FDA, but is performed in a CLIA regulated laboratory that is qualified to perform high-complexity testing. Lakesha Martin MD LAB MICROBIOLOGY - GENERAL ORDERABLES Final Result Performing Organization Address [facility]/ZIP Co de Phone Number [facility] [address] [place] [address] * Samra auris Surveillance Culture (05/23/2024 12:00 PM EDT) Culture No growth 05/26/2024 6:04 AM EDT [facility] Swab (Axilla and Groin) Non-blood Collection / Unknown 05/23/2024 12:00 PM EDT 05/23/2024 12:08 PM EDT Lakesha Martin MD LAB MICROBIOLOGY - GENERAL ORDERABLES Final Result [facility] [address] [place] [address] * Multi Drug Resistance Test (05/23/2024 12:00 PM EDT) Culture No Multi Drug Resistant Organisms Isolated 05/24/2024 11:44 AM EDT [facility] Swab (Nares and Andreia Rectal) Non-blood Collection / Unknown 05/23/2024 12:00 PM EDT 05/23/2024 12:08 PM EDT us Lakesha Martin MD LAB MICROBIOLOGY - GENERAL ORDERABLES Final Result [facility] [address] [place] [address] * ECHO, ADULT TRANSTHORACIC COMPLETE (05/23/2024 11:53 [...] is no recent study available for direct [id number] comparison. Left Ventricle The left ventricle is [...] is no recent study available for direct [id number] comparison. us Bing Byers APRN CV ECHO PROCEDURES Final R esult * (ABNORMAL) Blood gas, venous (05/23/2024 10:56 AM EDT) pH, Venous 7.29(L) 7.32 - 7.43 LAB HEMATOLOGY METHOD 05/23/2024 11:01 AM EDT [facility] pCO2, Venous 59(H) 37 - 52 mmHg LAB HEMATOLOGY METHOD 05/23/2024 11:01 AM EDT [facility] pO2, Venous 40 25 - 40 mmHg LAB HEMATOLOGY METHOD 05/23/2024 11:01 AM EDT [facility] SO2, Measured, Venous 69 65 - 80 % LAB HEMATOLOGY METHOD 05/23/2024 11:01 AM EDT [facility] Base Excess, Venous 0.7 -2.0 - 3.0 mmol/L LAB HEMATOLOGY METHOD 05/23/2024 11:01 AM EDT [facility] Bicarbonate, Calculated, Venous 28(H) 22 - 26 mmol/L LAB HEMATOLOGY METHOD 05/23/2024 11:01 AM EDT [facility] Hematocrit, Whole Blood 31.1(L) 34.0 - 45.0 % LAB HEMATOLOGY METHOD 05/23/2024 11:01 AM EDT [facility] Sodium, Whole Blood 142 136 - 145 mmol/L LAB HEMATOLOGY METHOD 05/23/2024 11:01 AM EDT [facility] Potassium, Whole Blood 4.8 3.6 - 4.9 mmol/L LAB HEMATOLOGY METHOD 05/23/2024 11:01 AM EDT [facility] Chloride, Whole Blood 105 97 - 107 mmol/L LAB HEMATOLOGY METHOD 05/23/2024 11:01 AM EDT [facility] Glucose, Whole Blood 134(H) 74 - 99 mg/dL LAB HEMATOLOGY METHOD 05/23/2024 11:01 AM EDT [facility] Lactate, Venous, Whole Blood 0.7 0.5 - 2.2 mmol/L LAB HEMATOLOGY METHOD 05/23/2024 11:01 AM EDT [facility] Ionized Calcium, Whole Blood 4.8 4.6 - 5.1 mg/dL LAB HEMATOLOGY METHOD 05/23/2024 11:01 AM EDT [facility] Blood Venous blood specimen / Unknown Venipuncture / Unknown 05/23/2024 10:56 AM EDT 05/23/2024 10:59 AM EDT us Lakesha Martin MD LAB BLOOD ORDERABLES Final Result Performing Organization Address City/State/RUST de Phone Number [facility] [address] [place] [address] * Ammonia, Plasma (05/23/2024 10:56 AM EDT) Ammonia 18 11 - 51 umol/L 05/23/2024 11:31 AM EDT [facility] Comment:Improper specimen whittaker ndling may falsely increase results. Blood Venous blood specimen / Unknown Venipuncture / Unknown 05/23/2024 10:56 AM EDT 05/23/2024 11:05 AM EDT us Bing Byers LEGAL ASSISTANT LAB BLOOD ORDERABLES Final Result [facility] [address] [place] [address] * (ABNORMAL) Comprehensive metabolic panel (05/23/2024 10:56 AM EDT) Glucose, Plasma 141(H) 74 - 99 mg/dL 05/23/2024 11:18 AM EDT [facility] BUN, Plasma 104(H) 8 - 23 mg/dL 05/23/2024 11:18 AM EDT [facility] Creatinine, Plasma 2.82(H) 0.60 - 1.10 mg/dL 05/23/2024 11:18 AM EDT [facility] BUN/Creatinine Ratio 37 05/23/2024 11:18 AM EDT [facility] Sodium, Plasma 142 136 - 145 mmol/L 05/23/2024 11:18 AM EDT [facility] Potassium, Plasma 5.1(H) 3.6 - 4.9 mmol/L 05/23/2024 11:18 AM EDT [facility] Chloride, Plasma 103 97 - 107 mmol/L 05/23/2024 11:18 AM EDT [facility] CO2, Plasma 26 22 - 29 mmol/L 05/23/2024 11:18 AM EDT [facility] Anion Gap 13 6 - 16 mmol/L 05/23/2024 11:18 AM EDT [facility] Total Calcium, Plasma 9.1 8.9 - 10.2 mg/dL 05/23/2024 11:18 AM EDT [facility] Total Protein 6.7 6.3 - 7.9 g/dL 05/23/2024 11:18 AM EDT [facility] Albumin, Plasma 3.2(L) 3.5 - 5.2 g/dL 05/23/2024 11:18 AM EDT [facility] AST, Plasma 44(H) 10 - 35 U/L 05/23/2024 11:18 AM EDT [facility] ALT, Plasma 30 10 - 35 U/L 05/23/2024 11:18 AM EDT [facility] Alkaline Phosphatase, Plasma 158(H) 46 - 142 U/L 05/23/2024 11:18 AM EDT [facility] Total Bilirubin, Plasma 0.4 0.2 - 1.1 mg/dL 05/23/2024 11:18 AM EDT [facility] eGFRcr 18.3 mL/min/1.7 3m*2 05/23/2024 11:18 AM EDT [facility] Comment:Reported eGFRcr in m L/min/1.73m2 is based the CKD-EPI 2020 equation that does not use a race coefficient. Blood Venous blood specimen / Unknown Venipuncture / Unknown 05/23/2024 10:56 AM EDT 05/23/2024 10:59 AM EDT us Roblesise Jarvis Byers LEGAL ASSISTANT LAB BLOOD ORDERABLES Final Result [facility] [address] [place] [address] * XR Knee Left 3 Views (05/23/2024 [...] Guajardo MD on 05/23/2024 8:37 AM us Cornelio Burns MD IMG XR PROCEDURES Final Resul [...] Guajardo MD on 05/23/2024 8:37 AM us Cornelio Burns MD IMG XR PROCEDURES Final Resul t * ED HIV 1/2 Antibody/Antigen Screen w/Reflex to HIV 1/2 Differentiation (05/23/2024 6:52 AM EDT) HIV 1 & 2 Antibody/Antigen Screen Non Reactive Non Reactive 05/23/2024 7:41 AM EDT [facility] Comment:Screening for HIV 1 & 2 antibodies, and P24 antigen is NONREACTIVE. No confirmatory testing is required. Blood Venous blood specimen / Unknown Venipuncture / Unknown 05/23/2024 6:52 AM EDT 05/23/2024 7:01 AM EDT us Cornelio Burns MD LAB BLOOD ORDERABLES Final Re sult Performing Organization Address [facility] de Phone Number [facility] [address] [place] [address] * Gold Top (05/23/2024 6:52 AM EDT) Extra Hold for add-ons 05/23/2024 9:01 AM EDT [facility] Comment:Auto resulted. Blood Venous blood specimen / Unknown 05/23/2024 6:52 AM EDT 05/23/2024 6:56 AM EDT us Cornelio Burns MD LAB BLOOD ORDERABLES Final Re sult Performing Organization Address [facility] Phone Number [facility] [address] [place] [address] * Light Green Top (05/23/2024 6:52 AM EDT) Extra Hold for add-ons 05/23/2024 9:01 AM EDT [facility] Comment:Auto resulted. Blood Venous blood specimen / Unknown 05/23/2024 6:52 AM EDT 05/23/2024 6:56 AM EDT us Cornelio uBrns MD LAB BLOOD ORDERABLES Final Re sult Performing Organization Address [facility] de Phone Number [facility] [address] [place] [address] * XR Hip Left Stress View (05/23/2024 [...] Hughes MD on 05/23/2024 7:01 AM us Cornelio Burns MD IMG XR PROCEDURES Final Resul t * Type and Screen (05/23/2024 6:52 AM EDT) ABO/Rh A Positive 05/23/2024 6:28 AM EDT BLOOD BANK Antibody Screen Negative 05/23/2024 6:28 AM EDT BLOOD BANK Specimen Expiration 05/26/2024 23:59 05/23/2024 6:28 AM EDT BLOOD BANK Blood Venous blood specimen / Unknown Venipuncture / Unknown 05/23/2024 6:52 AM EDT 05/23/2024 6:55 AM EDT us Cornelio Burns MD LAB BLOOD BANK TEST ORDERABLE S Final Result Performing Organization Address [facility] de Phone Number BLOOD BANK [address] [place] [address] * (ABNORMAL) Hemoglobin A1c (05/23/2024 6:52 AM EDT) Hemoglobin A1c 7.8(H) <5.7 % 05/23/2024 5:13 PM EDT [facility] Blood Venous blood specimen / Unknown Venipuncture / Unknown 05/23/2024 6:52 AM EDT 05/23/2024 6:54 AM EDT Narrative [facility] - 05/23/2024 5:13 PM EDT HA1C Interpretive Data: Diagnosis of Diabetes: Diabetic > or = 6.5% Pre-diabetic 5.7 to 6.4% Non-diabetic < or = 5.6% Glycemic Targets for Type I and Type II Diabetics: Non- Adults <7.0% Adults <6.0% Children and Adolescents <7.5% Source: [place] [employer]. Standards of medical care in diabetes,2017. Diabetes Care.2017:40 (suppl 1):S1-S135. us Bing Byers APRN LAB BLOOD ORDERABLES Final Result Performing Organization Address [facility] Co de Phone Number [facility] [address] [place] [address] * XR MSK OUTSIDE IMAGES (05/23/2024 3:50 AM EDT) Only the most recent of2 resultswithin the time period is included. Anatomical Region Laterality Modality Radiographic Danyelle ging 05/23/2024 3:50 AM EDT us External Provider IMG XR PROCEDURES Final Result * CT MSK OUTSIDE IMAGES (05/23/2024 3:47 AM EDT) Anatomical Region Laterality Modality Computed Tomogra phy 05/23/2024 3:47 AM EDT us External Provider IMG CT PROCEDURES Final Result * CT NEURO OUTSIDE IMAGES (05/23/2024 3:43 AM EDT) Only the most recent of2 resultswithin the time period is included. Anatomical Region Laterality Modality Computed Tomogra phy 05/23/2024 3:43 AM EDT us External Provider IMG CT PROCEDURES Final Result * XR OUTSIDE IMAGES (05/23/2024 3:30 AM EDT) Anatomical Region Laterality Modality Radiographic Danyelle ging 05/23/2024 3:30 AM EDT us External Provider IMG XR PROCEDURES Final Result * CT Chest wo IV Contrast (12/02/2019 5:12 AM EDT) Anatomical Region Laterality Modality Chest Computed Tomogra phy Narrative 12/02/2019 6:25 AM EDT REQUESTING PHYSICIAN: BRAIN BAILEY REASON FOR EXAMINATION/PROCEDURE: RAD PDP:Y * Fall, EXAMINATION / PROCEDURE: CT Chest WO IVCON Dec 02 2019 - 05:12; CT Abdomen & Pelvis WO IVCON Dec 02 2019 - 05:12; CLINICAL INDICATION: Fall. TECHNIQUE: Imaging of the chest abdomen and pelvis was performed from thoracic inlet through pubic symphysis, using spiral technique, without administration of IV contrast. Reformatted images in the coronal and sagittal planes were generat ed from the axial data set to facilitate diagnostic accuracy. Total DLP (Dose-Length Product): 1130.26 mGy.cm. Please note: The reported value represents the total of one or more individual components during the CT acquisition on this date and at this time, and as such, the same value may appear in more than one CT report depending on the interpreting/reporting physicians. COMPARISON: CT chest 06/01/2017. CT abdomen/pelvis 01/23/2016. FINDINGS: Chest: Lack of IV contrast limits evaluation of thoracic organs and vessels. Aorta/Vessels: Thoracic aorta is within normal limits given the lack of IV contrast. Mild aortic atherosclerosis. Pleural/Pericardial Space: No pneumothorax. No pleural effusions. No pericardial ef fusion. Lymph Nodes: No lymphadenopathy within the chest. Lungs: Upper lobe predominant diffuse cystic change throughout the lungs, consistent with known pulmonary Langerhans cell histiocytosis. Mild bronchial wall thickening. No focal conso lidation. Mediastinum: Otherwise unremarkable. Chest Wall: No chest wall hematoma or contusion. Bones: No acute fracture within the chest. Abdomen: Lack of IV contrast limits evaluation of abdominal and pelvic organs. Liver/Gallbladder /Biliary System: The liver demonstrates no focal lesion. Absent gallbladder. No intra- or extra-hepatic biliary ductal dilatation. Spleen: The spleen is normal. Pancreas: The pancreas is normal. Adrenals: Redemonstration of calcifications w ithin the right adrenal gland. Left adrenal gland is unremarkable. Kidneys: The kidneys are normal. No renal or ureteral calculi. No hydronephrosis. Bowel/Mesentery: The small large bowel loops are normal in caliber. No suspicious mesenter ic findings. No pneumoperitoneum. Vessels/Lymph Nodes: Moderate abdominal aortic atherosclerosis. No lymphadenopathy within the abdomen or pelvis. Fluid survey: No free fluid in the abdomen. No free fluid in the pelvis. Pelvis: Montgomery cathet er within the bladder. Status post hysterectomy. Body Wall: Normal. Bones: Impacted right intertrochanteric fracture with varus angulation. IMPRESSION: No acute findings in chest. No intra-abdominal visceral injury. Impacted right inte rtrochanteric fracture with varus angulation. CRITICAL RESULT: No. COMMUNICATION: Per this written report.. By electronically signing this report, I, the attending physician, attest that I have personally reviewed the images/data for the above examination(s) and agree with the final edited report. Verified by: CAMMY POSEY M.D. on Dec 02 2019 6:24A Transcribed by: [facility] on Dec 02 2019 5:43A Dictated by: JM SUTHERLAND D.O. on Dec 02 2019 5:43A Procedure Note Cammy Posey MD - 06/10/2020 REQUESTING PHYSICIAN: BRIAN BAILEY REASON FOR EXAMINATION/PROCEDURE: RAD PDP:Y * Fall, EXAMINATION / PROCEDURE: CT Chest WO IVCON Dec 02 2019 - 05:12; CT Abdomen & Pelvis WO IVCON Dec 02 2019 - 05:12; CLINICAL INDICATION: Fall. TECHNIQUE: Imaging of the chest abdomen and pelvis was performed from thoracic inlet through pubic symphysis, using spiral technique, without administration of IV contrast. Reformatted images in the coronal and sagittal planes were generat ed from the axial data set to facilitate diagnosticaccuracy. Total DLP (Dose-Length Product): 1130.26 mGy.cm. Please note: The reported value represents the total of one or more individual components during the CT acquisition on this date and at this time, and as such, the same value may appear in more than one CT report depending on the interpreting/reporting physicians. COMPARISON: CT chest 06/01/2017. CT abdomen/pelvis 01/23/2016. FINDINGS: Chest: Lack of IV contrast limits evaluation of thoracic organs and vessels. Aorta/Vessels: Thoracic aorta is within normal limits given the lack of IV contrast. Mild aortic atherosclerosis. Pleural/Pericardial Space: No pneumothorax. No pleural effusions. No pericardial ef fusion. Lymph Nodes: No lymphadenopathy within the chest. Lungs: Upper lobe predominant diffuse cystic change throughout the lungs, consistent with known pulmonary Langerhans cell histiocytosis. Mild bronchial wall thickening. No focal conso lidation. Mediastinum: Otherwise unremarkable. Chest Wall: No chest wall hematoma or contusion. Bones: No acute fracture within the chest. Abdomen: Lack of IV contrast limits evaluation of abdominal and pelvic organs. Liver/Gallbladder /Biliary System: The liver demonstrates no focal lesion. Absent gallbladder. No intra- or extra-hepatic biliary ductaldilatation. Spleen: The spleen is normal. Pancreas: The pancreas is normal. Adrenals: Redemonstration of calcifications w ithin the right adrenal gland. Left adrenal gland is unremarkable. Kidneys: The kidneys are normal. No renal or ureteral calculi. No hydronephrosis. Bowel/Mesentery: The small large bowel loops are normal in caliber. No suspicious mesenter ic findings. No pneumoperitoneum. Vessels/Lymph Nodes: Moderate abdominal aortic atherosclerosis. No lymphadenopathy within the abdomen or pelvis. Fluid survey: No free fluid in the abdomen. No free fluid in the pelvis. Pelvis: Montgomery cathet er within the bladder. Status post hysterectomy. Body Wall: Normal. Bones: Impacted right intertrochanteric fracture with varus angulation. IMPRESSION: No acute findings in chest. No intra-abdominal visceral injury. Impacted right inte rtrochanteric fracture with varus angulation. CRITICAL RESULT: No. COMMUNICATION: Per this written report.. By electronically signing this report, I, the attending physician, attest that I have personally reviewed the images/data for the above examination(s) and agree with the final edited report. Verified by: CAMMY POSEY M.D. on Dec 02 2019 6:24A Transcribed by: YAKOV on Dec 02 2019 5:43A Dictated by: JM SUTHERLAND D.O. on Dec 02 2019 5:43A Brian Bailey MD IMG CT PROCEDURES Final Result from Last 3 Months or Most Recently Relevant to Health Maintenance Insurance [place] MEDICARE Advance Directives * Full Code (Latest Code Status on File) Date Activated Date Inactivated Comments 06/01/2024 1:17 PM * Full Code Date Activated Date Inactivated Comments 05/24/2024 10:01 AM 06/01/2024 1:17 PM * Full Code Date Activated Date Inactivated Comments 05/23/2024 9:34 AM 05/24/2024 10:01 AM Care Teams Water Pump Assembler Relationship Specialty Start Date End Date Joshua Urban MD [address] [place] [address] PCP - General 06/27/20 Tri Singletary, [place] [address] Laserist Demand Planner 10/19/17
--- OUTSIDE RECORDS SUMMARY | 2024-07-23 16:41 | XMS_ITS | Encounter Summary ---
Author Organization Healthcare Address [address] [place] [address] Care Team Providers Care Wallpaper Cleaner Name Role Phone Joshua Urban MD Primary Care Provider [phone] Tri Singletary UROLOGIC SURGEON Unavailable Unavailable Encounter Details Date Type Department Care Team (Latest Contact Info) Description 05/28/2024 Travel Social History Tobacco Use Types Packs/Day [...] in the past 12 m [facility], were you homeless or living in a detention (including now)? No 05/24/2024 CAGE ASSESSMENT Answer [...] drink first t michelet in the morning (EYE-TAKE OUT WAITER/WAITRESS) to steady your nerves or to get [...] Date of Assessment Author No Risk Indicated 05/28/2024 8:00 PM EDT Deidra Lee RN * Question Answer Date of Assessment Author 1. Wish to be (Past 1 Month) No 025 8:00 PM EDT Deidra Lee, RN 2. Non-Specific Active Suici akanksha Thoughts (Past 1 Month) No 05/28/2024 8:00 PM EDT Rommel Lee RN 6. Suicidal Behavior (Lifetime) No 8:00 PM EDT Deidra Lee RN documented as of this encounter Plan of Treatment Upcoming Encounters Date Type Department Care Team (Late st Contact Info) Description 08/27/2024 9:30 AM EDT Office Visit [facility] Orthopaedic Surgery & Sports Medicine [address], [address] [place] [address] Cornelio Burns MD [address] [place] [address] documented as of this encounter Visit Diagnoses Not on filedocumented in this encounter Additional Health Concerns Assessment Noted Time A Body Mass Index follow-up plan has been documented for the patient 06/01/2024 1:33 PM EDT documented as of this encounter Care Teams Wallpaper Cleaner Relationship Specialty Start Date End Date Joshua Urban MD [address] [id number] PCP - General 06/27/20 Tri Singletary, [place] [address] Shooting Gallery Operator Floor Mechanic 10/19/17 documented as of this encounter
--- OUTSIDE RECORDS SUMMARY | 2024-07-23 16:41 | XMS_ITS | Encounter Summary ---
Author Organization Healthcare Address [address] [place] [address] Care Team Providers Care Color Paste Mixer Name Role Phone Joshua Urban MD Primary Care Provider [phone] Tri Singletary ALGEBRAIST Unavailable Unavailable Encounter Details Date Type Department Care Team (Late Contact Info) Description 12/01/2019 Orders Only External Location [address] [place] [address] Provider, External Social History Tobacco Use Types [...] Description 08/27/2024 9:30 AM EDT [facility] Visit [facility] [address], [address] [place] [address] Cornelio Burns MD [address] [place] [address] documented as of this encounter Procedures Procedure Name Priority Date/Time Associated Diagnosis Comments CT OUTSIDE IMAGES 12/01/2019 11:38 PM EDT documented in this encounter Results * CT OUTSIDE IMAGES (12/01/2019 11:38 PM EDT) Anatomical Region Laterality Modality Computed Tomogra phy 12/01/2019 11:3 8 PM EDT us External Provider IMG CT PROCEDURES Final Result documented in this encounter Visit Diagnoses Not on filedocumented in this encounter Additional Health Concerns Infection Onset Date Last Indicated Resolved Time Gastrointestinal Rule-Out 12/02/2019 12/02/2019 5:23 AM EDT documented as of this encounter Care Teams Color Paste Mixer Relationship Specialty Start Date End Date Joshua Urban MD [address] [place] [address] PCP - General 06/27/20 Tri Singletary, [place] [address] Head Tennis Coach Gear Shaper Set Up Operator 10/19/17 documented as of this encounter
--- OUTSIDE RECORDS SUMMARY | 2024-07-23 16:41 | XMS_ITS | Encounter Summary ---
Author Organization Healthcare Address [address] [place] [address] Care Team Providers Care Snuff Maker Name Role Phone Joshua Urban MD Primary Care Provider [phone] Tri Singletary PAPERBOARD BOXES ESTIMATOR Unavailable Unavailable Encounter Details Date Type Department Care Team (Latest Contact Info) Description 05/24/2024 Travel Social History Tobacco Use Types Packs/Day [...] any time in the past 12 m [facility], were you homeless or living in a skilled nursing (including now)? No 05/24/2024 CAGE ASSESSMENT Answer [...] drink first t michelet in the morning (EYE-SAS BI DEVELOPER) to steady your nerves or to get [...] Date of Assessment Author No Risk Indicated 05/24/2024 8:00 PM EDT Emmanuelle Valle * Question Answer Date of Assessment Author 1. Wish to be (Past 1 Month) No 025 8:00 PM EDT Emmanuelle Valle 2. Non-Specific Active Suici akanksha Thoughts (Past 1 Month) No 05/24/2024 8:00 PM EDT Kadeem Valle 6. Suicidal Behavior (Lifetime) No 8:00 PM EDT Emmanuelle Valle documented as of this encounter Plan of Treatment Upcoming Encounters Date Type Department Care Team (Late st Contact Info) Description 08/27/2024 9:30 AM EDT Office Visit [facility] Orthopaedic Surgery & Sports Medicine [address], [address] [place] [address] Cornelio Burns MD [address] [place] [address] documented as of this encounter Visit Diagnoses Not on filedocumented in this encounter Additional Health Concerns Assessment Noted Time A Body Mass Index follow-up plan has been documented for the patient 06/01/2024 1:33 PM EDT documented as of this encounter Care Teams Snuff Maker Relationship Specialty Start Date End Date Joshua Urban MD [address] [place] [address] PCP - General 06/27/20 Tri Singletary, [place] [address] Media Developer In Store Marketing Associate 10/19/17 documented as of this encounter
--- OUTSIDE RECORDS SUMMARY | 2024-07-23 16:41 | XMS_ITS | Encounter Summary ---
Author Organization Healthcare Address [address] [place] [address] Care Team Providers Care Check Embosser Name Role Phone Joshua Urban MD Primary Care Provider [phone] Tri Singletary CHICKEN DRESSER Unavailable Unavailable Encounter Details Date Type Department Care Team (Latest Contact Info) Description 05/26/2024 Travel Social History Tobacco Use Types Packs/Day [...] any time in the past 12 m [facility], were you homeless or living in [...] drink first t michelet in the morning (EYE-PULPWOOD DEALER) to steady your nerves or to get [...] Orthopaedic Surgery & Sports Medicine [address], [address] [place] [address] Cornelio Burns MD [address] [place] [address] documented as of this encounter Visit Diagnoses Not on filedocumented in this encounter Additional Health Concerns Assessment Noted Time A Body Mass Index follow-up plan has been documented for the patient 06/01/2024 1:33 PM EDT documented as of this encounter Care Teams Check Embosser Relationship Specialty Start Date End Date Joshua Urban MD [address] [place] [address] PCP - General 06/27/20 Tri Singletary, [place] [address] Presser First Title Examiner 10/19/17 documented as of this encounter
--- OUTSIDE RECORDS SUMMARY | 2024-07-23 16:41 | XMS_ITS | Encounter Summary ---
Author Organization Healthcare Address [address] [place] [address] Care Team Providers Care Custom Miller Name Role Phone Joshua Urban MD Primary Care Provider [phone] Tri Singletary TIGHT COOPER Unavailable Unavailable Encounter Details Date Type Department Care Team (Late st Contact Info) Description 12/16/2017 Orders Only External Location [address] [place] [address] Provider, External Social History Tobacco Use Types [...] Description 08/27/2024 9:30 AM EDT Office Visit [facility] [address], [address] [place] [address] Cornelio Burns MD [address] [place] [address] documented as of this encounter Procedures Procedure Name Priority Date/Time Associated Diagnosis Comments CT OUTSIDE IMAGES 12/16/2017 4:45 PM EDT documented in this encounter Results * CT OUTSIDE IMAGES (12/16/2017 4:45 PM EDT) Anatomical Region Laterality Modality Computed Tomogra phy 12/16/2017 4:45 PM EDT us External Provider IMG CT PROCEDURES Final Result documented in this encounter Visit Diagnoses Not on filedocumented in this encounter Additional Health Concerns Infection Onset Date Last Indicated Resolved Time Gastrointestinal Rule-Out 12/02/2019 12/02/2019 5:23 AM EDT documented as of this encounter Care Teams Custom Miller Relationship Specialty Start Date End Date Joshua Urban MD [address] [place] [address] PCP - General 06/27/20 Tri Singletary, [place] [address] Jewel Bearing Turner Can Maker 10/19/17 documented as of this encounter
--- OUTSIDE RECORDS SUMMARY | 2024-07-23 16:41 | XMS_ITS | Encounter Summary ---
Author Organization Healthcare Address [address] [place] [address] Care Team Providers Care Vegetable Handler Name Role Phone Joshua Urban MD Primary Care Provider [phone] Tri Singletary CRNP Unavailable Unavailable Encounter Details Date Type Department Care Team (Late Contact Info) Description 12/01/2019 Orders Only External Location [address] [place] [address] Provider, External Social History Tobacco Use Types [...] Description 08/27/2024 9:30 AM EDT Office Visit [facility] [address], [address] [place] [address] Cornelio Burns MD [address] [place] [address] documented as of this encounter Procedures Procedure Name Priority Date/Time Associated Diagnosis Comments CT OUTSIDE IMAGES 12/01/2019 11:25 PM EDT documented in this encounter Results * CT OUTSIDE IMAGES (12/01/2019 11:25 PM EDT) Anatomical Region Laterality Modality Computed Tomogra phy 12/01/2019 11:2 5 PM EDT us External Provider IMG CT PROCEDURES Final Result documented in this encounter Visit Diagnoses Not on filedocumented in this encounter Additional Health Concerns Infection Onset Date Last Indicated Resolved Time Gastrointestinal Rule-Out 12/02/2019 12/02/2019 5:23 AM EDT documented as of this encounter Care Teams Vegetable Handler Relationship Specialty Start Date End Date Joshua Urban MD [address] [place] [address] PCP - General 06/27/20 Tri Singletary, [place] [address] Global President Insurance Sales Associate 10/19/17 documented as of this encounter
--- OUTSIDE RECORDS SUMMARY | 2024-07-23 16:41 | XMS_ITS | Encounter Summary ---
Author Organization Healthcare Address [address] [place] [address] Care Team Providers Care Critical Care Specialist Name Role Phone Joshua Urban MD Primary Care Provider [phone] Tri Singletary TREADLE CUT OFF SAW OPERATOR Unavailable Unavailable Encounter Details Date Type Department Care Team (Late st Contact Info) Description 06/12/2016 Orders Only External Location [address] [place] [address] Provider, External Social History Tobacco Use Types [...] Description 08/27/2024 9:30 AM EDT [facility] [address], [address] [place] [address] Cornelio Burns MD [address] [place] [address] documented as of this encounter Procedures Procedure Name Priority Date/Time Associated Diagnosis Comments XR OUTSIDE IMAGES 06/12/2016 4:31 PM EDT documented in this encounter Results * XR OUTSIDE IMAGES (06/12/2016 4:31 PM EDT) Anatomical Region Laterality Modality Radiographic Danyelle ging 06/12/2016 4:31 PM EDT us External Provider IMG XR PROCEDURES Final Result documented in this encounter Visit Diagnoses Not on filedocumented in this encounter Additional Health Concerns Infection Onset Date Last Indicated Resolved Time Gastrointestinal Rule-Out 12/02/2019 12/02/2019 5:23 AM EDT documented as of this encounter Care Teams Critical Care Specialist Relationship Specialty Start Date End Date Joshua Urban MD [address] [place] [address] PCP - General 06/27/20 Tri Singlet[place], [place] [address] Truck Car And Bus Cleaner Multimedia Services Coordinator 10/19/17 documented as of this encounter
--- OUTSIDE RECORDS SUMMARY | 2024-07-23 16:41 | XMS_ITS | Encounter Summary ---
Author Organization Healthcare Address [address] [place] [address] Care Team Providers Care Channel Process Plant Operator Name Role Phone Joshua Urban MD Primary Care Provider [phone] Tri Singletary WIRELESS NETWORK ENGINEER Unavailable Unavailable Encounter Details Date Type Department Care Team (Late st Contact Info) Description 09/05/2017 Orders Only External Location [address] [place] [address] Provider, External Social History Tobacco Use Types [...] Description 08/27/2024 9:30 AM EDT Office Visit [facility] [address], [address] [place] [address] Cornelio Burns MD [address] [place] [address] documented as of this encounter Procedures Procedure Name Priority Date/Time Associated Diagnosis Comments CT OUTSIDE IMAGES 09/05/2017 5:13 PM EDT documented in this encounter Results * CT OUTSIDE IMAGES (09/05/2017 5:13 PM EDT) Anatomical Region Laterality Modality Computed Tomogra phy 09/05/2017 5:13 PM EDT us External Provider IMG CT PROCEDURES Final Result documented in this encounter Visit Diagnoses Not on filedocumented in this encounter Additional Health Concerns Infection Onset Date Last Indicated Resolved Time Gastrointestinal Rule-Out 12/02/2019 12/02/2019 5:23 AM EDT documented as of this encounter Care Teams Channel Process Plant Operator Relationship Specialty Start Date End Date Joshua Urban MD [address] [place] [address] PCP - General 06/27/20 Tri Singletary, [place] [address] Manager House Demonstrator Sales 10/19/17 documented as of this encounter
--- OUTSIDE RECORDS SUMMARY | 2024-07-23 16:41 | XMS_ITS | Encounter Summary ---
Author Organization Healthcare Address [address] [place] [address] Care Team Providers Care Senior Dentist Name Role Phone Joshua Urban MD Primary Care Provider [phone] Tri Singletary FULL STACK DEVELOPER Unavailable Unavailable Encounter Details Date Type Department Care Team (Late Contact Info) Description 10/23/2016 Orders Only External Location [address] [place] [address] Provider, External Social History Tobacco Use Types [...] [facility] [address], [address] [place] [address] Cornelio Burns MD [address] [place] [address] documented as of this encounter Procedures Procedure Name Priority Date/Time Associated Diagnosis Comments XR OUTSIDE IMAGES 10/23/2016 8:34 PM EDT documented in this encounter Results * XR OUTSIDE IMAGES (10/23/2016 8:34 PM EDT) Anatomical Region Laterality Modality Radiographic Danyelle ging 10/23/2016 8:34 PM EDT us External Provider IMG XR PROCEDURES Final Result documented in this encounter Visit Diagnoses Not on filedocumented in this encounter Additional Health Concerns Infection Onset Date Last Indicated Resolved Time Gastrointestinal Rule-Out 12/02/2019 12/02/2019 5:23 AM EDT documented as of this encounter Care Teams Senior Dentist Relationship Specialty Start Date End Date Joshua Urban MD [address] [place] [address] PCP - General 06/27/20 Tri Singletary, [place] [address] Cutter Plastics Rolls Air Press Operator 10/19/17 documented as of this encounter
--- OUTSIDE RECORDS SUMMARY | 2024-07-23 16:41 | XMS_ITS | Encounter Summary ---
Author Organization Healthcare Address [address] [place] [address] Care Team Providers Care Service Order Clerk Name Role Phone Joshua Urban MD Primary Care Provider [phone] Tri Singletary TETRYL WRINGER OPERATOR Unavailable Unavailable Encounter Details Date Type Department Care Team (Late Contact Info) Description 12/16/2017 Orders Only External Location [address] [place] [address] Provider, External Social History Tobacco Use Types [...] [facility] [address], [address] [place] [address] Cornelio Burns MD [address] [place] [address] documented as of this encounter Procedures Procedure Name Priority Date/Time Associated Diagnosis Comments XR OUTSIDE IMAGES 12/16/2017 3:53 PM EDT documented in this encounter Results * XR OUTSIDE IMAGES (12/16/2017 3:53 PM EDT) Anatomical Region Laterality Modality Radiographic Danyelle ging 12/16/2017 3:53 PM EDT us External Provider IMG XR PROCEDURES Final Result documented in this encounter Visit Diagnoses Not on filedocumented in this encounter Additional Health Concerns Infection Onset Date Last Indicated Resolved Time Gastrointestinal Rule-Out 12/02/2019 12/02/2019 5:23 AM EDT documented as of this encounter Care Teams Service Order Clerk Relationship Specialty Start Date End Date Joshua Urban MD [address] [place] [address] PCP - General 06/27/20 Tri Singletary, [place] [address] Fine Jewelry Sales Associate Air Pollution Auditor 10/19/17 documented as of this encounter
--- OUTSIDE RECORDS SUMMARY | 2024-07-23 16:41 | XMS_ITS | Clinical Summary ---
Author Organization [facility] Address [address] [place] [address] Phone Care Team Providers Care Bead Filler Name Role Phone Unavailable Primary Care Provider Unavailabl e Allergies Active Allergy Reactions Criticality Noted Date Comments Codeine Nausea And Vomiting 01/11/2024 Sulfa (Sulfonamide Antibiotics) Hives 12/16 Medications * This document contains information received from the source organization and may not represent a complete record from that organization. No known medications Active Problems No known active problems Medical History Medical History Date Comments COPD (chronic obstructive pulmonary disease) (HC C) Hypertension CHF (congestive heart failure) (HCC) Diabetes mellitus (HCC) Paroxysmal atrial fibrillation (HCC) Renal insufficiency Sleep apnea C. difficile colitis Depression Social History Tobacco Use Types Packs/Day Years Used Date Smoking Tobacco: Former Cigarettes Smokeless Tobacco: Never Tobacco Cessation:Counseling Given: Not Answered Alcohol Use Standard Drinks/Week Comments Never 0 (1 standard drink = 0.6 oz pur e alcohol) Sexually Active Control Partners Comments Not Currently Comments Unknown Sex and Gender Information Value Date Recorded Sex Assigned at Not on file Legal Sex Female 3:24 PM EST Gender Identity Not on file Sexual Orientation Not on file Obstetrics History Plan of Treatment Health Maintenance Due Date Last Done Comments Wellness Exam Medicare 1964 Hepatitis C Screening 1979 DTaP/TDaP/Td (1 - Tdap) 1980 Cervical Cancer Screening 1982 Pap Smear 1982 HPV/Pap Cotest 1991 Breast Cancer Screening 2001 Cologuard 2006 Colon Cancer Screening 2006 Colonoscopy 2006 FIT 2006 Sigmoidoscopy 2006 Virtual Colonography 2006 Pneumococcal Vaccine 50+ (1 of 1 - PCV) 2011 Zoster (1 of 2) 2011 COVID-19 Vaccine (1 - 2023-2 5 season) 2023 Influenza Vaccine (Season Ended) 2024 Hepatitis B Vaccine Aged Out No longe r eligible based on patient's age to complete this topic Meningococcal B Vaccine Aged Out No l onger eligible based on patient's age to complete this topic Insurance [place] PART A AND B
--- OUTSIDE RECORDS SUMMARY | 2024-07-23 16:41 | XMS_ITS | Encounter Summary ---
Author Organization Healthcare Address [address] [place] [address] Care Team Providers Care Animal Control Specialist Name Role Phone Joshua Urban MD Primary Care Provider [phone] Tri Singletary PURCHASING COORDINATOR Unavailable Unavailable Encounter Details Date Type Department Care Team (Late Contact Info) Description 01/15/2018 Orders Only External Location [address] [place] [address] Provider, External Social History Tobacco Use Types [...] [facility] [address], [address] [place] [address] Cornelio Burns MD [address] [place] [address] documented as of this encounter Procedures Procedure Name Priority Date/Time Associated Diagnosis Comments XR OUTSIDE IMAGES 01/15/2018 5:31 PM EST documented in this encounter Results * XR OUTSIDE IMAGES (01/15/2018 5:31 PM EST) Anatomical Region Laterality Modality Radiographic Danyelle ging 01/15/2018 5:31 PM EST us External Provider IMG XR PROCEDURES Final Result documented in this encounter Visit Diagnoses Not on filedocumented in this encounter Additional Health Concerns Infection Onset Date Last Indicated Resolved Time Gastrointestinal Rule-Out 12/02/2019 12/02/2019 5:23 AM EDT documented as of this encounter Care Teams Animal Control Specialist Relationship Specialty Start Date End Date Joshua Urban MD [address] [place] [address] PCP - General 06/27/20 Tri Singletary, [place] [address] Enforcement Safety Officer Order Entry Representative 10/19/17 documented as of this encounter
[2024-07-23 17:04] LABS: Microscopic, Urine URINE MICROSCOPIC (MICROSCOPIC)
[2024-07-23 17:10] LABS: Appearance,Urine SL CLOUDY (Clear); Bilirubin,Urine Negative (Negative); Blood, Urine 1+ (Negative); Color,Urine YELLOW (Yellow); Glucose,Urine (UA) 2+ (Negative); Ketones,Urine Negative (Negative); Leukocyte Esterase,Urine 1+ (Negative); Nitrate,Urine Negative (Negative); Protein,Urine 1+ (Negative); Specific Gravity, Urine 1.015 (1.005-1.030); Urobilinogen,Urine 0.2 EU/dl (0.2)
[2024-07-23 17:12] LABS: Basophils # 0.1 K/mm3 (0-0.2); Basophils % 0.6 % (0.1-2.0); Eosinophils # 0.2 Kmm3 (0.0-0.4); Eosinophils % 1.7 % (0.1-12.0); Hematocrit 38.4 % (37.0-47.0); Hemoglobin 11.5 g/dL (12.2-16.2); Immature Granulocytes # 0.08 10^3uL; Immature Granulocytes % 0.6 %; Lymphocytes # 4.1 K/mm3 (0.7-4.5); Lymphocytes % 29.5 % (10-50); Mean Corpuscular HGB Conc 29.9 g/dL (31.8-35.4); Mean Corpuscular Volume 86.9 fl (81-99); Mean Platelet Volume 10.2 fl (7.4-10.4); Monocytes # 1.4 K/mm3 (0.1-1.0); Monocytes % 9.9 % (1.7-9.3); Neutrophils # 8.1 K/mm3 (1.8-7.8); Neutrophils % 57.7 % (37.0-80.0); Nucleated Red Blood Cells # 0 10^3/uL; Nucleated Red Blood Cells % 0 %; Platelet Count 342 K/mm3 (142-424); Red Blood Count 4.42 M/mm3 (4.20-5.40); Red Cell Distribution Width 16.4 % (11.5-17.5); Red Cell Distribution Width-SD 52.7 fL
[2024-07-23 17:31] LABS: Bacteria,Urine 3+ /lpf; WBC,Urine 50-100 #/hpf (0-3)
[2024-07-23 17:35] LABS: Creatinine,Urine Random 24 mg/dL (Not Estab.)
[2024-07-23 17:44] LABS: Alanine Aminotransferase 27 U/L (12-78); Albumin Level 3.6 g/dl (3.5-5.0); Albumin/Globulin Ratio 0.9 (1.1-1.8); Alkaline Phosphatase 185 U/L (38-126); Anion Gap 13.2 mEq/L (5-15); Aspartate Amino Transferase 38 U/L (14-36); Bilirubin,Total 0.4 mg/dl (0.2-1.3); Blood Urea Nitrogen 61 mg/dl (7-17); Calcium 9.9 mg/dl (8.4-10.2); Carbon Dioxide 25 mmol/L (22.0-30.0); Chloride 111 mmol/L (98-107); Estimated Glomerular Filt Rate 28 ml/min (>60); GFR (African American) 34 ML/MIN (>60); Glucose 140 mg/dl (74-100); Sodium 143 mmol/L (136-145); Total Protein,Serum 7.6 g/dl (6.3-8.2); Uric Acid 6.5 mg/dl (2.5-6.2)
[2024-07-23 17:56] LABS: Intact Parathyroid Hormone 188.5 pg/mL (7.5-53.5)
[2024-07-23 18:00] LABS: 25-OH Vitamin D, Total 21.7 ng/mL (30-100)
[2024-07-23 18:15] LABS: Potassium 6.2 mmoL/L (3.5-5.1)
== END 2024-07-23 23:59 | disposition home or self-care (01) ==
LOC: LAB.DROPOF 16:36
PROVIDERS: PCP Internal Medicine Adolescent Medicine; Visit Provider Nurse Practitioner Family
DX: E87.5 Hyperkalemia (principal); N18.32 Chronic kidney disease, stage 3b; E11.9 Type 2 diabetes mellitus without complications
CPT/HCPCS: 80053; 81001; 82306; 82570; 83036; 83970; 84156; 84550; 85025; 87086

== ENCOUNTER 2024-08-03 07:59 | Outpatient (CLI) | payer MEDICARE, MEDICAID, SELFPAY ==
--- OUTSIDE RECORDS SUMMARY | 2024-06-12 09:30 | XMS_ITS | Encounter Summary ---
Author Organization Healthcare Address [address] [place] [address] Care Team Providers Care Gun Fitter Name Role Phone Joshua Urban MD Primary Care Provider [phone] Tri Singletary PRIVATE BRANCH EXCHANGE INSTALLER Unavailable Unavailable Reason for Visit * Reason Comments Post-op Encounter Details Date Type Department Care Team (Late st Contact Info) Description 06/12/2024 9:30 AM EDT Office Visit [facility] Orthopaedic Surgery & Sports Medicine [address] [place] [address] Bing Byers N, INGREDIENT SPECIALIST [address] [place] [address] Closed fracture of hip, unspecified laterality, sequela (Primary Dx) Social History Tobacco Use Types Packs/Day Years Used Date Smoking Tobacco: Every Day Cigarettes 1 50.5 Started: 1973 Passive Smoke Exposure: Current Smokeless [...] drink first t michelet in the morning (EYE-PROCESS DEVELOPMENT TECHNICIAN) to steady your nerves or to get rid of a hangover? 0 09/26/2022 CAGE Questionnaire Score 0 023 Utilities Answer Date Recorded In the past 12 months has e [employer], gas, oil, or water [employer] threatened to shut off services in your [...] Notes * Progress Notes - Bing Byers, INGREDIENT SPECIALIST - 06/12/2024 9:30 AM EDT CC: L [...] Description 08/27/2024 9:30 AM EDT Office Visit [facility] Orthopaedic Surgery & Sports Medicine [address] [place] [address] Cornelio Burns MD [address] [place] [address] documented as of this encounter [...] on 07/16/2024 8:51 AM us Bing Byers INGREDIENT SPECIALIST IMG XR PROCEDURES Final Re sult documented [...] documented as of this encounter Care Teams Gun Fitter Relationship Specialty Start Date End Date Joshua Urban MD [address] [place] [address] PCP - General 06/27/20 Tri Singletary, [place] [address] Correctional Medicine Physician Measuring Machine Tender 10/19/17 documented as of this encounter
--- OUTSIDE RECORDS SUMMARY | 2024-07-13 03:57 | XMS_ITS | Continuity of Care Document ---
Author Organization [address] [place] [address] Address [address] [facility] [address] [place] [address] Phone Care Team Providers Care Manager Content Name Role Phone Tabitha Lopes OD Unavailable Unavailable Allergies, Adverse Reactions, Alerts Substance Reaction Status Criticality aspirin Active No Information DIPHENHYDRAMINE HCL Active No Infor mation celecoxib Active No Information citalopram Active No Information codeine Active No Information duloxetine Active No Information erythromycin base Active No Informa tion fluticasone Active No Information methocarbamol Active No Information naproxen Active No Information Penicillins Active No Information pregabalin Active No Information salmeterol Active No Information Sulfa (Sulfonamide Antibiotics) Active No Information sulfamethoxazole Active No Informat ion terbutaline Active No Information tramadol Active No Information trimethoprim Active No Information Medications Medication Instructions Dosage Effective Dates (start - stop) Status Comments Novolog FlexPen U-100 Insulin aspart 100 unit/mL (3 mL) subcutaneous - Active buspirone 10 mg tablet - Act mick isosorbide mononitrate ER 30 mg tablet,extended release 24 hr - Active Lantus Solostar U-100 Insulin 100 unit/mL (3 mL) subcutaneous pen - Active metoprolol tartrate 25 mg tablet - Active oxycodone-acetaminophen 5 mg-325 mg tablet - Active sertraline 100 mg tablet - A ctive DOK 100 mg tablet - Active gabapentin 400 mg capsule - Active Mucus Relief ER 600 mg tablet, extended release - Active atorvastatin 10 mg tablet - Active bumetanide 2 mg tablet - Act mick Farxiga 5 mg tablet - Active insulin glargine-yfgn (U-100) 100 unit/mL (3 mL) subcutaneous pen - Active lidocaine 5 % topical patch - Active BD AutoShield Duo Pen Needle 30 gauge x 04/29 - Active Eliquis 5 mg tablet - Active telmisartan 40 mg tablet - A ctive Lokelma 5 gram oral powder packet - Active aripiprazole 10 mg tablet - Active famotidine 20 mg tablet - Ac tive insulin lispro (U-100) 100 unit/mL subcutaneous pen - Active carboxymethylcellulose sodium 0.5 % eye drops - Active oxycodone-acetaminophen 7.5 mg-325 mg tablet - Active sertraline 200 mg capsule - Active telmisartan 20 mg tablet - A ctive Trelegy Ellipta 100 mcg-62.5 mcg-25 mcg powder for inhalation - Active cefdinir 300 mg capsule - Ac tive ipratropium 0.5 mg-albuterol 3 mg (2.5 mg base)/3 mL nebulization soln - Active prednisone 10 mg tablet - Ac tive prednisone 20 mg tablet - Ac tive nystatin 100,000 unit/gram topical powder - Active dapagliflozin propanediol 5 mg tablet - Active polyethylene glycol 3350 17 gram/dose oral powder - Active zinc oxide 20 % topical ointment - Active dapagliflozin propanediol 10 mg tablet TAKE ONE TABLET BY MOUTH EVERY DAY - Active gabapentin 300 mg capsule TAKE ONE CAPSU LE BY MOUTH THREE TIMES DAILY MAY CAUSE DROWSINESS - Active metformin 1,000 mg tablet TAKE ONE TABLE T BY MOUTH TWICE DAILY - Active Movantik 25 mg tablet TAKE ONE TABLET BY MOUTH EVERY DAY - Active omeprazole 20 mg capsule,delayed release TAKE TWO CAPSULES BY MOUTH EVERY DAY - Active quetiapine 50 mg tablet TAKE ONE TABLET BY MOUTH EVERY DAY - Active sertraline 50 mg tablet TAKE ONE TABLET BY MOUTH EVERY DAY - Active ClearLax 17 gram/dose oral powder - Active cetirizine 10 mg tablet - Ac tive Lidocaine Pain Relief 4 % topical patch - Active docusate sodium 100 mg capsule - Active senna 8.6 mg tablet - Active buspirone 5 mg tablet TAKE TWO TABLETS B Y MOUTH TWICE DAILY MAY CAUSE DROWSINESS - Active guaifenesin ER 600 mg tablet, extended release 12 hr - Active Anti-Diarrheal (loperamide) 2 mg tablet - Active lidocaine 4 % topical patch - Active Stimulant Laxative Plus 8.6 mg-50 mg tablet - Active Accu-Chek Guide Me Glucose Meter USE TWICE DAILY DIRECTED - Active Accu-Chek Guide test strips USE TWICE DA NAY DIRECTED - Active Accu-Chek Softclix Lancets USE TWICE ASHLEY LY DIRECTED - Active Farxiga 10 mg tablet TAKE ONE TABLET BY MOUTH EVERY DAY - Active BD Ultra-Fine Micro Pen Needle 32 gauge x 1/4 USE DIRECTED - Active metformin 500 mg tablet TAKE TWO TABLETS BY MOUTH TWICE DAILY FOR diabetes - Active pantoprazole 40 mg tablet,delayed release TAKE ONE TABLET BY MOUTH EVERY DAY IN THE MORNING FOR GERD Jeramie-02-2024 - Active magnesium oxide 400 mg (241.3 mg magnesium) tablet - Active Humulin 70/30 U-100 Insulin KwikPen 100 unit/mL subcutaneous INJECT 8 UNITS SUBCUTANEOUSLY TWICE DAILY DIRECTED - Active Procedures Procedure Date Vision svcs frames purchases FITTING OF SPECTACLES DETERMINE REFRACTIVE STATE Lens spher bifoc plano 4.00d COMPRE OPH EXAM NEW PT 1/> FUNDUS PHOTOGRAPHY Trim Dystrophic nail(s) SBSQ NF CARE SF MDM 10 Compsve Oral Eval- New/Est Pat Complete Series Of Radiographic Images F Advance Directives Directive Yes / No Effective Date File Name No Information Encounters Encounter Description Practice Location Reason(s) For Visit Diagnoses Date Provider Providers Copied on Encounter [address] [place] [address], [address] [place] [address], [id number], tel:[phone] [facility] [place] [facility] [address] [place], [place]. [address] [place] [address], [address] [place] [address], [place], [place], [id number], tel:[phone] [facility] Diabetic eye exam (chief complaint) Type 2 diabetes mellitus with mild nonproliferative diabetic retinopathy without macular edema, right eyePresence of intraocular lensDry eye syndrome of bilateral lacrimal glands 5 [facility] [place] Referring Provider: Moe Escoto. [address] [place] [address], [address] [place] [address] [address], [place], [place], [id number], [place] tel:[phone] [facility] Nail dystrophyOnychogr yphosisOther specified peripheral vascular diseasesOther abnormalities of gait and mobility 5 [place]. SBSQ NF CARE SF MDM [address] [place] [address], [address] [facility] [address], [place], [place], [id number], tel:[phone] [facility] [place] ear care exam, hearing loss (chief complaint) Tinnitus, right ear [place], [place]. Referring Provider: Moe Escoto. [address] [place] [address], [address] [address], [place], [place], [id number], tel:[phone] [facility] [place] No Information [place], [place]. [address] [place] [address], [address] [address], [place], [place], [id number], tel:[phone] [facility] [place] Encounter for dental examination and cleaning without abnormal findings [place]. Referring Provider: Moe Escoto. Family History Family Member Type Diagnosis Age At Onset No Information Payers Payer name Insurance type Covered alliance party ID Authoriza tion(s) Medicaid [facility] [id number] Social History Type Description Quantity Date Captured Comments Sex Female Smoking Status No Information Sexual Orientation Straight or heterosexual Chief Complaint And Reason For Visit No Information Reason For Referral Reason For Referral No Information History Of Present Illness Encounter Date Complaint History Of Prese nt Illness Diabetic eye exam The 64 year ol d patient presents for evaluation of Diabetic eye exam in the right eye and left eye. On insulin. Has noticed some eye burning. Patient denies: eye pain. Functional Status Date Functional Assessmen t No Information Instructions Date Instruction Additional Infor claribel Impression/Plan - Ph campbell taken. Mild dot blot hemes OD only. Recheck 3 mos Related to Type 2 diabetes mellitus with mild nonproliferative diabetic retinopathy without macular edema, right eye Impression/Plan - Im plants are clear and stable in both eyes. We will monitor at regular intervals Related to Presence of intraocular lens Impression/Plan - c/ o burning but no SPK however TBUT 3 sec OU. Ordered AT BID OU Related to Dry eye syndrome of bilateral lacrimal glands Discussed using comp ression stockings to assist in localize swelling and venous return, and the assistant terminal manager benefits of using compression stockings. Reinforced the importance of proper adherence to using the ramona hose, and compression stockings. Will continue to monitor. Related to Other specified peripheral vascular diseases PT instructed to con tinue use of DME equipment for safety, mobility, and reducing risk of falls/injury. Will continue to monitor. Pt denies recent falls in the past 3 months. Related to Other abnormalities of gait and mobility All documented dystr ophic nails were reduced in length as needed to prevent pain and other symptoms. Related to Nail dystrophy All of the documente d thickened nails (which includes those nails 2 mm or more in thickness, and possible mycotic component to the nails) were debrided in both length and thickness using both a nail nipper and an electric rotary ink grinder in an atraumatic fashion; this was performed in an attempt to prevent pain and reduce risk of infection. Alcohol applied to the digits afterwards. Related to Onychogryphosis Follow up in 6-9 mon ths for evaluation as per protocol. Would recommend audiology referral at this time for evaluation patient wishes to pursue. Related to Tinnitus, right ear Assessments Type Assessment Date assessment Presbyopia Patient Care Teams Name Effective Dates (start - stop) Status Members No Information
--- OUTSIDE RECORDS SUMMARY | 2024-07-16 07:34 | XMS_ITS | Encounter Summary ---
Author Organization Healthcare Address [address] [place] [address] Care Team Providers Care Air Shovel Operator Name Role Phone Joshua Urban MD Primary Care Provider [phone] Tri Singletary DIRECTOR INTERNAL CONTROL Unavailable Unavailable Encounter Details Date Type Department Care Team (Latest Contact Info) Description 07/16/2024 7:34 AM EDT - 07/16/2024 11:59 PM EDT Hospital Encounter [place] [facility] [address], [address] [place] [address] Closed fracture of hip, unspecified [...] any time in the past 12 m [facility], were you homeless or living in a longterm (including now)? No 05/24/2024 CAGE ASSESSMENT Answer [...] drink first t michelet in the morning (EYE-MANAGER PARTY) to steady your nerves or to get [...] Description 08/27/2024 9:30 AM EDT Office Visit [facility] Orthopaedic Surgery & Sports Medicine [address], [address] [place] [address] Cornelio Burns MD [address] [place] [address] documented as of this encounter [...] on 07/16/2024 8:51 AM us Bing Byers CENTURA TECHNICAL LEAD SENIOR DEVELOPER IMG XR PROCEDURES Final Re sult documented [...] documented as of this encounter Care Teams Air Shovel Operator Relationship Specialty Start Date End Date Joshua Urban MD [address] [place] [address] PCP - General 06/27/20 Tri Singletary, [place] [address] Derrick Boat Lever Operator Dining Services Director 10/19/17 documented as of this encounter
--- OUTSIDE RECORDS SUMMARY | 2024-07-16 08:40 | XMS_ITS | Encounter Summary ---
Author Organization Healthcare Address [address] [place] [address] Care Team Providers Care Insulation Extruder Operator Name Role Phone Joshua Urban MD Primary Care Provider [phone] Tri Singletary E SPINDLE MAKER Unavailable Unavailable Reason for Referral * Consultation (Routine) - Authorized Specialty Diagnoses / Procedures Referred By Contac t Referred To Contact Physical Therapy Diagnoses Closed fracture of hip, unspecified laterality, sequela Cornelio Burns MD [id number] [place] [address] Phone: tel: fax: Referral ID Status Reason Start Date Expiration Date Visits Requested Visits Authorized [id number] Authorized Consult and Treat 07/16/2024 01/15/2026 1 1 Reason for Visit * Reason Comments Fracture Encounter Details Date Type Department Care Team (Late st Contact Info) Description 07/16/2024 8:40 AM EDT Office Visit [facility] Orthopaedic Surgery & Sports Medicine [address] [place] [address] Cornelio Burns MD [address] [facility] [address] [place] [address] Closed fracture of hip, unspecified laterality, sequela (Primary Dx) Social History Tobacco Use Types Packs/Day Years Used Date Smoking Tobacco: Every Day Cigarettes 1 50.5 Started: 1974 Passive Smoke Exposure: Current Smokeless Tobacco: Never Tobacco Cessation:Ready to Q uit: No; Counseling Given: Yes Alcohol Use Standard Drinks/Week Comments Never 0 [...] time in the past 12 m [facility], were you homeless or living in a assisted (including now)? No 05/24/2024 CAGE ASSESSMENT Answer [...] drink first t michelet in the morning (EYE-PRESSER ALL AROUND) to steady your nerves or to get rid of a hangover? 0 09/26/2022 CAGE Questionnaire Score 0 023 Utilities Answer Date Recorded In the past 12 months has DIY, gas, oil, or water company threatened to shut off services in your home? No 05/24/2024 Comments No Sex and Gender Information Value Date Recorded Sex Assigned at Not on file Legal Sex Female 7:35 PM EDT Gender Identity Not on file Sexual Orientation Not on file documented as of this encounter Last Filed Vital Signs Vital Sign Reading Time Taken Comments Blood Pressure 122/52 07/16/2024 7:58 AM EDT Pulse 61 07/16/2024 7:58 AM EDT Temperature 36.9 C (98.4 F) 07/16/2024 7:58 AM EDT Respiratory Rate - - Oxygen Saturation 91% 07/16/2024 8:15 AM EDT Inhaled Oxygen Concentration - - Weight 80.7 kg (178 lb) 07/16/2024 7:58 AM EDT Height 165.1 cm (5' 5 ) 07/16/2024 7:58 AM EDT Body Mass Index 29.62 07/16/2024 7:58 AM EDT documented in this encounter Miscellaneous Notes * Progress Notes - Ryan Scott MD - 07/16/2024 8:40 AM EDT CC: L intertrochanteric femur fx s/p CMN placement on 05/24 HPI: Kassy Bartlett is a 64 y.o. female who returns to clinic for evaluation from the above injury/and or procedure. Pain in his now been discharged from rehab facility. She is currently Physical Assessment: No acute distress Non labored breathing Peripheral perfusion intact Focused MSK exam: Left lower extremity: Well-healed surgical incisions No erythema, ecchymosis, edema Fires EHL/FHL/GSC/TA SILT s/s/sp/dp/t Toes WWP XRAY: Two view radiographs of left femur were ordered, reviewed, interpreted which demonstrate healed fracture of the left intertrochanteric region with cephalomedullary screw in place without hardware failure Assessment: Kassy Bartlett is a 64 y.o. female s/p L femur CMN on 05/[address] Burns Plan: -WB Status: WBAT LLE Plan for follow up in 6 weeks with repeat xrays -prescription provided for physical therapy including hip, core strengthening, general conditioning, left lower extremity strengthening -The patient was given an opportunity to ask questions and all their questions were answered to their satisfaction. Ryan Scott MD Cosigned by Cornelio Burns MD at 07/16/2024 12:44 PM EDT Associated attestation - Cornelio Burns MD - 07/16/2024 12:44 PM EDT I saw and evaluated the patient with the resident/fellow. I discussed the case with the resident/fellow and agree with the findings and plan as documented. documented in this encounter Plan of Treatment Upcoming Encounters Date Type Department Care Team (Late st Contact Info) Description 08/27/2024 9:30 AM EDT Office Visit [facility] Orthopaedic Surgery & Sports Medicine [address] [place] [address] Cornelio Burns MD [address] [place] [address] Scheduled Orders Name Type Priority Associated Diagnoses Orde r Schedule XR Hip Left 2 or 3 Views Imaging Routine Closed fracture of hip, unspecified laterality, sequela Expected: 09/03/2024 (Approximate), Expires: 01/17/2026 Scheduled Referrals Name Type Priority Associated Diagnoses Orde r Schedule Physical Therapy (outgoing) Outpatient Referral Routine Closed fracture of hip, unspecified laterality, sequela Expected: 07/16/2024 (Approximate), Expires: 01/17/2026 documented as of this encounter Visit Diagnoses Diagnosis Closed fracture of hip, unspecified laterality, sequela- Primary documented in this encounter Additional Health Concerns Assessment Noted Time A fall risk assessment has been complete d for the patient 07/16/2024 7:58 AM EDT A Body Mass Index follow-up plan has been documented for the patient 07/16/2024 8:28 AM EDT documented as of this encounter Care Teams Insulation Extruder Operator Relationship Specialty Start Date End Date Joshua Urban MD [address] [place] [address] PCP - General 06/27/20 Tri Singletary, [place] [address] Setup Operator Fly Frame Tender 10/19/17 documented as of this encounter
--- OUTSIDE RECORDS SUMMARY | 2024-08-03 08:02 | XMS_ITS | Encounter Summary ---
Author Organization Healthcare Address [address] [place] [address] Care Team Providers Care House Cleaner Supervisor Name Role Phone Joshua Urban MD Primary Care Provider [phone] Tri Singletary ANNUAL GREENHOUSE MANAGER Unavailable Unavailable Encounter Details Date Type Department Care Team (Late Contact Info) Description 12/01/2019 Orders Only External Location [address] [place] [address] Provider, External Social History Tobacco Use Types [...] Description 08/27/2024 9:30 AM EDT Office Visit [place] [facility] [address], [address] [place] [address] Cornelio Burns MD [address] [place] [address] documented as of this encounter Procedures Procedure [...] documented as of this encounter Care Teams House Cleaner Supervisor Relationship Specialty Start Date End Date Joshua Urban MD [address] [place] [address] PCP - General 06/27/20 Tri Singletary, [place] [address] Pc Support Specialist Seat Cover Cutter 10/19/17 documented as of this encounter
--- OUTSIDE RECORDS SUMMARY | 2024-08-03 08:02 | XMS_ITS | Encounter Summary ---
Author Organization Healthcare Address [address] [place] [address] Care Team Providers Care Senior Investment Analyst Name Role Phone Joshua Urban MD Primary Care Provider [phone] Tri Singletary DIGITAL COLOR PRESS OPERATOR Unavailable Unavailable Encounter Details Date Type Department Care Team (Late Contact Info) Description 12/01/2019 Orders Only External Location [address] [place] [address] Provider, External Social History Tobacco Use Types [...] Description 08/27/2024 9:30 AM EDT Office Visit [place] [facility] [address], [address] [place] [address] Cornelio Burns MD [address] [place] [address] documented as of this encounter Procedures Procedure [...] as of this encounter Care Teams Senior Investment Analyst Relationship Specialty Start Date End Date Joshua Urban MD [address] [place] [address] PCP - General 06/27/20 Tri Singletary, [place] [address] Floral Associate Typists Supervisor 10/19/17 documented as of this encounter
--- OUTSIDE RECORDS SUMMARY | 2024-08-03 08:02 | XMS_ITS | Encounter Summary ---
Author Organization Healthcare Address [address] [place] [address] Care Team Providers Care After School Program Coordinator Name Role Phone Joshua Urban MD Primary Care Provider [phone] Tri Singletary PAID SEARCH MARKETING ANALYST Unavailable Unavailable Encounter Details Date Type Department Care Team (Late Contact Info) Description 12/02/2019 Orders Only External Location [address] [place] [address] Provider, External Social History Tobacco Use Types [...] Description 08/27/2024 9:30 AM EDT Office Visit [place] [facility] [address], [address] [place] [address] Cornelio Burns MD [address] [place] [address] documented as of this encounter Procedures Procedure [...] documented as of this encounter Care Teams After School Program Coordinator Relationship Specialty Start Date End Date Joshua Urban MD [address] [place] [address] PCP - General 06/27/20 Tri Singletary, [place] [address] Selling Manager Tower Technician 10/19/17 documented as of this encounter
--- OUTSIDE RECORDS SUMMARY | 2024-08-03 08:02 | XMS_ITS | Encounter Summary ---
Author Organization Healthcare Address [address] [place] [address] Care Team Providers Care Lead Nuclear Medicine Technologist Name Role Phone Joshua Urban MD Primary Care Provider [phone] Tri Singletary COMMUNICATION CENTER OPERATOR Unavailable Unavailable Encounter Details Date Type Department Care Team (Late Contact Info) Description 12/01/2019 Orders Only External Location [address] [place] [address] Provider, External Social History Tobacco Use Types [...] Description 08/27/2024 9:30 AM EDT Office Visit [place] [facility] [address], [address] [place] [address] Cornelio Burns MD [address] [place] [address] documented as of this encounter Procedures Procedure [...] documented as of this encounter Care Teams Lead Nuclear Medicine Technologist Relationship Specialty Start Date End Date Joshua Urban MD [address] [place] [address] PCP - General 06/27/20 Tri Singletary, [place] [address] Specimen Collector Neck Cutter 10/19/17 documented as of this encounter
--- OUTSIDE RECORDS SUMMARY | 2024-08-03 08:02 | XMS_ITS | Encounter Summary ---
Author Organization Healthcare Address [address] [place] [address] Care Team Providers Care Programming Equipment Operator Name Role Phone Joshua Urban MD Primary Care Provider [phone] Tri Singletary MANAGER REIMBURSEMENT Unavailable Unavailable Encounter Details Date Type Department Care Team (Late st Contact Info) Description 12/16/2017 Orders Only External Location [address] [place] [address] Provider, External Social History Tobacco Use Types [...] Description 08/27/2024 9:30 AM EDT Office Visit [place] [facility] [address], [address] [place] [address] Cornelio Burns MD [address] [place] [address] documented as of this encounter Procedures Procedure [...] documented as of this encounter Care Teams Programming Equipment Operator Relationship Specialty Start Date End Date Joshua Urban MD [address] [place] [address] PCP - General 06/27/20 Tri Singletary, [place] [address] Processing Talc And Borate Supervisor Mortgage Coordinator 10/19/17 documented as of this encounter
--- OUTSIDE RECORDS SUMMARY | 2024-08-03 08:02 | XMS_ITS | Encounter Summary ---
Author Organization Healthcare Address [address] [place] [address] Care Team Providers Care Sales Lead Name Role Phone Joshua Urban MD Primary Care Provider [phone] Tri Singletary PAYROLL SUPERVISOR Unavailable Unavailable Encounter Details Date Type Department Care Team (Late Contact Info) Description 06/12/2016 Orders Only External Location [address] [place] [address] Provider, External Social History Tobacco Use Types [...] [facility] [address], [address] [place] [address] Cornelio Burns MD [address] [place] [address] documented as of this encounter Procedures Procedure [...] documented as of this encounter Care Teams Sales Lead Relationship Specialty Start Date End Date Joshua Urban MD [address] [place] [address] PCP - General 06/27/20 Tri Singletary, [place] [address] Vault Keeper Demurrage Agent 10/19/17 documented as of this encounter
--- OUTSIDE RECORDS SUMMARY | 2024-08-03 08:02 | XMS_ITS | Encounter Summary ---
Author Organization Healthcare Address [address] [place] [address] Care Team Providers Care Business Computers Teacher Name Role Phone Joshua Urban MD Primary Care Provider [phone] Tri Singletary NATIONAL FLATBED TRUCK DRIVER Unavailable Unavailable Encounter Details Date Type Department Care Team (Late Contact Info) Description 10/23/2016 Orders Only External Location [address] [place] [address] Provider, External Social History Tobacco Use Types [...] Description 08/27/2024 9:30 AM EDT Office Visit [place] [facility] [address], [address] [place] [address] Cornelio Burns MD [address] [place] [address] documented as of this encounter Procedures Procedure [...] documented as of this encounter Care Teams Business Computers Teacher Relationship Specialty Start Date End Date Joshua Urban MD [address] [place] [address] PCP - General 06/27/20 Tri Singletary, [place] [address] Lumber Driver Terrazzo Worker Helper 10/19/17 documented as of this encounter
--- OUTSIDE RECORDS SUMMARY | 2024-08-03 08:02 | XMS_ITS | Encounter Summary ---
Author Organization Healthcare Address [address] [place] [address] Care Team Providers Care Capsule Maker Name Role Phone Joshua Urban MD Primary Care Provider [phone] Tri Singletary HANDYPERSON Unavailable Unavailable Encounter Details Date Type Department Care Team (Late st Contact Info) Description 09/05/2017 Orders Only External Location [address] [place] [address] Provider, External Social History Tobacco Use Types [...] Description 08/27/2024 9:30 AM EDT Office Visit [place] [facility] [address], [address] [place] [address] Cornelio Burns MD [address] [place] [address] documented as of this encounter Procedures Procedure [...] documented as of this encounter Care Teams Capsule Maker Relationship Specialty Start Date End Date Joshua Urban MD [address] [place] [address] PCP - General 06/27/20 Tri Singletary, [place] [address] Braided Rug Maker Rock Lather 10/19/17 documented as of this encounter
--- OUTSIDE RECORDS SUMMARY | 2024-08-03 08:02 | XMS_ITS ---
Author Organization [facility] Address [address] [id number] Care Team Providers Care Gas Appliance Mechanic Name Role Phone Joshua Urban MD Primary Care Provider [phone] Tri Singletary METAL SPONGE MAKING MACHINE OPERATOR Unavailable Unavailable Hepatitis C Program Status:Active (Active) Start date:10/19/2017 Enrollment date:10/19/2017 Enrollment reason:HCV Continued Care and Services Coordination
--- OUTSIDE RECORDS SUMMARY | 2024-08-03 08:02 | XMS_ITS | Encounter Summary ---
Author Organization Healthcare Address [address] [place] [address] Care Team Providers Care Retail Marketing Coordinator Name Role Phone Joshua Urban MD Primary Care Provider [phone] Tri Singletary BLAST FURNACE HELPER Unavailable Unavailable Encounter Details Date Type Department Care Team (Late Contact Info) Description 12/16/2017 Orders Only External Location [address] [place] [address] Provider, External Social History Tobacco Use Types [...] Description 08/27/2024 9:30 AM EDT Office Visit [place] [facility] [address], [address] [place] [address] Cornelio Burns MD [address] [place] [address] documented as of this encounter Procedures Procedure [...] documented as of this encounter Care Teams Retail Marketing Coordinator Relationship Specialty Start Date End Date Joshua Urban MD [address] [place] [address] PCP - General 06/27/20 Tri Singletary, [place] [address] Billing Clinician Jewelry Bench Molder 10/19/17 documented as of this encounter
--- OUTSIDE RECORDS SUMMARY | 2024-08-03 08:02 | XMS_ITS | Data Portability ---
Author Organization POLLO JENNIFER Magdytalib & EJNNIFER Wheatley ADMIN Address [address] [place] [id number] Assessment No assessment recorded. Plan of Treatment [...] Address Organization Details Recorded Time Diabetes mellitus [id number] Active 2023 Mai Liriano amara, [facility] - [facility] - [place] [facility] [place] 4 07:30:59 Clostridium difficile colitis 893588643 Active 2023 Mai Liriano amara, [facility] - [facility] [place] 4 07:31:08 Compression fracture Active 2023 Mai Liriano amara, [place] - [facility] [place] [facility] [place] 4 07:31:21 Chronic kidney disease 094494679 Active 2023 Mai Liriano amara, [place] - [facility] - [place] [facility] [place] 4 07:31:30 Congestive heart failure 98781401 Active 2023 Mailoi maloney, [facility] - [facility] [place] 4 07:31:43 Chronic obstructive pulmonary disease 58808273 Active 2023 Mailoi maloney, [facility] - [facility] - [place] [facility] [place] 4 07:31:48 Problem Notes None recorded. Procedures Surgical History Date Name Laterality Status Provider Name and Address Organization Details Recorded Time appendectomy completed Marium Wild RODRIGUEZ [facility] [place] 02/14/2024 11:17:16 procedure on gallbladder completed Marium RODRIGUEZ [facility] [place] 02/14/2024 11:17:24 Wrist arthroscopy completed Marium RODRIGUEZ [facility] [place] 02/14/2024 11:17:31 procedure on lower leg completed Marium RODRIGUEZ [facility] [place] 02/14/2024 11:18:15 procedure on lower leg completed Marium RODRIGUEZ [facility] [place] 02/14/2024 11:18:18 tonsillectomy completed Marium RODRIGUEZ [facility] [place] 02/14/2024 11:18:26 ligation of fallopian tube completed Marium RODRIGUEZ [facility] [place] 02/14/2024 11:18:34 Imaging Results None recorded. Procedure Notes None recorded. Medical Equipment None Reported. Allergies Allergen ID Allergen Name Allergen Category Reaction Reaction Severity Criticality Documentation Date Start Date Code Code System Note Provider Name and Address Organization Details Recorded Time 903535 fluticaso ne / salmetero l medicatio n Not available Not available Not available 02/14/2024 91508 5 RxNorm POLLO Gonzalez [facility] [place] 4 07:28:27 868327 aspirin medicatio n Not available Not available Not available 02/14/2024 1191 RxNorm POLLO Gonzalez [facility] [place] 4 07:28:36 023526 Benadryl medicatio n Not available Not available Not available 02/14/2024 78346 7 RxNorm POLLO Gonzalez [facility] [place] 4 07:28:42 831076 bupropion Not available Not available Not available Not available 02/14/2024 08823 RxNorm POLLO Gonzalez [facility] [place] 4 07:28:51 675189 Celebrex medicatio n Not available Not available Not available 02/14/2024 79842 7 RxNorm Mai maloney, [facility] - [facility] [place] 4 07:28:57 640283 citalopra m medicatio n Not available Not available Not available 02/14/2024 2556 RxNorm Mai maloney, [place] - [facility] [place] 4 07:29:03 540337 codeine medicatio n Not available Not available Not available 02/14/2024 2670 RxNorm Mai maloney, [place] - [facility] [place] 4 07:29:09 288148 duloxetin e medicatio n Not available Not available Not available 02/14/2024 20906 RxNorm Mai maloney, [place] - [facility] [place] 4 07:29:15 144635 erythromy jt medicatio n Not available Not available Not available 02/14/2024 4053 RxNorm POLLO Gonzalez - [facility] [place] 4 07:29:24 775174 methocarb nneka medicatio n Not available Not available Not available 02/14/2024 6845 RxNorm Mai maloney, [place] - [facility] [place] 4 07:29:33 099310 naproxen medicatio n Not available Not available Not available 02/14/2024 7258 RxNorm POLLO Gonzalez - [facility] [place] 4 07:29:40 998115 pregabali n medicatio n Not available Not available Not available 02/14/2024 25000 2 RxNorm Mai maloney, [place] - [facility] [place] 4 07:29:45 466450 Bactrim medicatio n Not available Not available Not available 02/14/2024 39638 9 RxNorm POLLO Gonzalez - [facility] [place] 4 07:29:52 516743 Substance with sulfonami de structure and antibacte rial mechanism of action (substanc e) medicatio n Not available Not available Not available 02/14/2024 04744 8003 SNOMED POLLO Gonzalez [facility] [place] 4 07:29:59 186855 terbutali ne medicatio n Not available Not available Not available 02/14/2024 45285 RxNorm POLLO Gonzalez [facility] [place] 4 07:30:12 577146 tramadol medicatio n Not available Not available Not available 02/14/2024 25133 RxNorm POLLO Gonzalez [facility] [place] 4 07:30:18 492267 trimethop rim medicatio n Not available Not available Not available 02/14/2024 45801 RxNorm POLLO Gonzalez [facility] [place] 4 07:30:38 Medications Name Sig Start Date [...] 4 67 /min 94 % 94 % 97264.7 7 g 124 mm[Hg] 62 mm[Hg] Marium Martin [place] - [facility] [place] 4 11:16:51 Social History None recorded. Functional Status None recorded. Mental Status None recorded. Family History Nothing Reported. Medical History No medical history recorded. Gynecological HistoryNo gynecological history recorded. Obstetrics History GPAL:G 0 P 0 0 0 0 Past Encounters Encounter ID Performer Location Encounter Start Date Encounter Closed Date Diagnosis/Indication Diagnosis SNOMED-CT Code Diagnosis ICD10 Code Diagnosis Note [id number] BRENNA K[place] [address] 11/30/2021 11:21:42 11/30/2021 17:05:50 [id number] BRENNA KAURCherrie Recinos [facility] [address] [place] [address] 12/29/2021 12:00:34 12/29/2021 13:04:52 [id number] CATRACHO BUNCHzCherrie Recinos [facility] [address] [place] [address] 01/01/2022 15:02:26 01/05/2022 12:08:39 [id number] BRENNA KAUR [facility] [address] [place] [address] 01/05/2022 15:56:35 01/06/2022 14:26:19 [id number] BRENNA KAUR [facility] [address] [place] [address] 01/13/2022 11:49:38 01/13/2022 14:03:48 [id number] [facility] [address] [place] [address] 01/21/2022 14:07:08 01/21/2022 15:03:54 [id number] [facility] [address] [place] [address] 01/27/2022 14:54:09 01/28/2022 12:07:06 [id number] MARK GHOTRA [facility] Therapeut ic Intervent ion [address] [place] [address] 02/01/2022 11:42:01 02/01/2022 12:51:07 [id number] [facility] GE[facility] [address] [place] [address] 02/01/2022 12:12:33 02/01/2022 13:03:12 [id number] MARK GHOTRA [facility] Therapeut ic Intervent [facility] [address] [place] [address] 02/17/2022 10:32:30 02/17/2022 11:05:37 [id number] FRAN GEORGE MEDICAL SAFETY DIRECTOR [facility] Therapeut ic Intervent ion [address] [place] [address] 02/17/2022 11:06:35 02/17/2022 13:21:44 [id number] Elizabeth CariasDaly in, [facility] Infectiou s Disease -[address] [facility]0 [facility] [address] [place] [address] 02/14/2024 11:03:26 02/14/2024 11:43:51 Clostridioides difficile infection 695903077 A04.72 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 She received Fidaxomici n [...] Name 04/21/2024 1 [place] Kassy Bartlett [id number] Kassy Bartlett 02/14/2024 1 [place]MEDICARE REPLACEMENT HMO) [id number] Kassy Bartlett [id number] Kassy Bartlett 04/21/2024 2 MEDICAID-[facility] CHOICES - FFS/TRADITION AL Kassy Bartlett [id number] Kassy Bartlett Notes Date Note Type Note [...] denies any nausea or vomiting. Elizabeth Lyons, VITICULTURE TEACHER [address], [place], [address], [facility] [place] [facility] [place] 02/14/2024 11:29:54 OBGyn Episode No OBEpisode recorded.
--- OUTSIDE RECORDS SUMMARY | 2024-08-03 08:02 | XMS_ITS | Encounter Summary ---
Author Organization Healthcare Address [address] [place] [address] Care Team Providers Care Transportation Associate Name Role Phone Joshua Urban MD Primary Care Provider [phone] Tri Singletary WHEEL ALIGNMENT TECHNICIAN Unavailable Unavailable Encounter Details Date Type Department Care Team (Late st Contact Info) Description 01/03/2018 [facility] OTTR Encounter Historical OTTR [address] [place] [address] Larissa Pineda RN HOSP. SPECIAL DIAGNOSTIC FACILITIES [...] need a new referral from her primary cold molding press operator. Pt verbalized understanding. * Progress Notes [...] or pulmonoligist- I did transfer pt to [facility] for follow up * Progress Notes - [...] to pt, referring MD, and saved to [facility]. * Progress Notes - Larissa Pineda - [...] questionnaires and map for ICE on 12/15 2048 9583 [phone] * Progress Notes - Wen Stiles [...] and map , and refer. MD letter [phone] * Progress Notes - Wen Stiles [...] 08/27/2024 9:30 AM EDT Office Visit [facility] Orthopaedic Surgery & Sports Medicine [address] [place] [address] Cornelio Burns MD [address] [place] [address] documented as of this encounter Procedures Procedure [...] RESULTS (MANUAL) (07/12/2018 9:39 AM EDT) Pathologist [facility] [place] External Estimated GFR 41.88 EXTERNAL LAB 07/12/2018 9:39 AM EDT Narrative EXTERNAL LAB - 07/13/2018 11:20 PM EDT Automated LAB Interface Historical Provider MD LAB BLOOD ORDERABLES Taniya l Result Performing Organization Address City/[facility] Co de Phone Number EXTERNAL LAB * OTTR LAB RESULTS (MANUAL) (05/30/2018 3:36 PM EDT) [facility] External Estimated GFR 50.67 EXTERNAL LAB 05/30/2018 3:36 PM EDT Narrative EXTERNAL LAB - 06/01/2018 2:30 PM EDT Automated LAB Interface Historical Provider MD LAB BLOOD ORDERABLES Taniya l Result Performing Organization Address [facility] Co de Phone Number EXTERNAL LAB * OTTR LAB RESULTS (MANUAL) (01/17/2018 1:49 PM EST) [facility] External Estimated GFR 53.29 EXTERNAL LAB 01/17/2018 1:49 PM EST Narrative EXTERNAL LAB - 01/17/2018 2:55 PM EST Automated LAB Interface Historical Provider MD LAB BLOOD ORDERABLES Taniya l Result Performing Organization Address [facility]/State/ZIP Co de Phone Number EXTERNAL LAB * [...] ORDERABLES Taniya l Result Performing Organization Address City/[facility] Co de Phone Number EXTERNAL LAB * OTTR LAB RESULTS (MANUAL) (11/10/2017 9:49 AM EDT) External Estimated GFR 41.54 EXTERNAL LAB 11/10/2017 9:49 AM EDT Narrative EXTERNAL LAB - 11/17/2017 8:46 AM EDT Automated LAB Interface Historical Provider MD LAB BLOOD ORDERABLES Taniya l Result Performing Organization Address City/[facility] Co de Phone Number EXTERNAL LAB documented in this encounter Visit Diagnoses Not on filedocumented in this encounter Additional Health Concerns Infection Onset Date Last Indicated Resolved Time Gastrointestinal Rule-Out 12/02/2019 12/02/2019 5:23 AM EDT documented as of this encounter Care Teams Transportation Associate Relationship Specialty Start Date End Date Joshua Urban MD [address] [place] [address] PCP - General 06/27/20 Tri Singletary, [place] [address] Felt Puller Historical Records Administrator 10/19/17 documented as of this encounter
--- OUTSIDE RECORDS SUMMARY | 2024-08-03 08:02 | XMS_ITS | Encounter Summary ---
Author Organization Healthcare Address [address] [place] [address] Care Team Providers Care Piledriver Carpenter Name Role Phone Joshua Urban MD Primary Care Provider [phone] Tri Singletary MODEL MAKER FIREARMS Unavailable Unavailable Encounter Details Date Type Department Care Team (Late Contact Info) Description 01/15/2018 Orders Only External Location [address] [place] [address] Provider, External Social History Tobacco Use Types [...] Description 08/27/2024 9:30 AM EDT Office Visit [facility] Surgery & [facility] Medicine [address] [place] [address] Cornelio Burns MD [address] [place] [address] documented as of this encounter Procedures Procedure [...] documented as of this encounter Care Teams Piledriver Carpenter Relationship Specialty Start Date End Date Joshua Urban MD [address] [place] [address] PCP - General 06/27/20 Tri Singletary, [place] [address] Bog Cutter [employer] Cloud Consulting Architect 10/19/17 documented as of this encounter
--- OUTSIDE RECORDS SUMMARY | 2024-08-03 08:03 | XMS_ITS | Encounter Summary ---
Author Organization Healthcare Address [address] [place] [address] Care Team Providers Care Ocular Care Technician Name Role Phone Joshua Urban MD Primary Care Provider [phone] Tri Singletary HEALTH INFORMATICS SPECIALIST Unavailable Unavailable Encounter Details Date Type Department Care Team (Late st Contact Info) Description 10/01/[address] [facility] [address] [place] [address] Mitchel Ivey PA [address] [place] [address] Routine general medical examination at [...] drink first t michelet in the morning (EYE-TALENT ACQUISITION ADMINISTRATOR) to steady your nerves or to get [...] Description 08/27/2024 9:30 AM EDT Office Visit [facility] Orthopaedic Surgery & Sports Medicine [address] [place] [address] Cornelio Bursn MD [address] [place] [address] documented as of this encounter Procedures Procedure Name Priority Date/Time Associated Diagnosis Comments MORPHOLOGY Routine 10/01/2022 6:39 AM EDT Routine general medical examination at a [facility] care facility MANUAL DIFFERENTIAL Routine 10/01/2022 6 :39 AM EDT Routine general medical examination at a [facility] care facility ACUTE HEPATITIS PANEL Routine 10/01/2022 6:39 AM EDT Routine general medical examination at a [facility] care facility CBC WITH AUTO DIFFERENTIAL Routine 10/01/2022 6:39 AM EDT Routine general medical examination at a [facility] care facility HEMOGLOBIN A1C Routine 10/01/2022 6:39 AM EDT Routine general medical examination at a [facility] care facility LIPID PROFILE, PLASMA Routine 10/01/2022 6:37 AM EDT Routine general medical examination at a [facility] care facility COMPREHENSIVE METABOLIC PANEL, PLASMA Routine 10/01/2022 6:37 AM EDT Routine general medical examination at a [facility] care facility documented in this encounter Results [...] BLOOD ORDERABLES Final Resul t [facility] [address] [place], [place] [id number] * (ABNORMAL) Manual Differential (10/01/2022 6:39 AM [...] Lymphoma Cells Absolute 10/01/2022 10:17 AM EDT [facility] Hairy Cells Absolute 10/01/2022 10:17 AM EDT HEALTHCARE LAB Other Cells Absolute 10/01/2022 10:17 AM EDT [facility]ALTH[facility]ARE [facility] Blood Venous blood specimen / Unknown Venipuncture / Unknown 10/01/2022 6:39 AM EDT 10/01/2022 7:43 AM EDT us Mitchel HOLLY LAB BLOOD ORDERABLES Final Resul t [facility] [address] [place] [address] * (ABNORMAL) CBC and Differential (10/01/2022 6:39 AM EDT) WBC Count 11.58(H) 3.70 - 10.30 10*3/uL LAB HEMATOLOGY METHOD 10/01/2022 10:17 AM EDT [facility] RBC Count 4.62 3.90 - 5.20 10*6/uL LAB HEMATOLOGY METHOD 10/01/2022 10:17 AM EDT [facility] HGB 13.0 11.2 - 15.7 g/dL LAB HEMATOLOGY METHOD 10/01/2022 10:17 AM EDT [facility] HCT 41.1 34.0 - 45.0 % LAB HEMATOLOGY METHOD 10/01/2022 10:17 AM EDT [facility] Platelet Count 299 155 - 369 10*3/uL LAB HEMATOLOGY METHOD 10/01/2022 10:17 AM EDT [facility] MCV 89 79 - 98 fL LAB HEMATOLOGY METHOD 10/01/2022 10:17 AM EDT [facility] MCH 28.1 26.0 - 32.0 pg LAB HEMATOLOGY METHOD 10/01/2022 10:17 AM EDT [facility] MCHC 31.6 30.7 - 35.5 g/dL LAB HEMATOLOGY METHOD 10/01/2022 10:17 AM EDT [facility] RDW 14.6(H) 11.5 - 14.5 % LAB HEMATOLOGY METHOD 10/01/2022 10:17 AM EDT [facility] MPV 10.0 8.8 - 12.5 fL LAB HEMATOLOGY METHOD 10/01/2022 10:17 AM EDT [facility] nRBC 0.0 <=0.0 per 100 WBCs LAB HEMATOLOGY METHOD 10/01/2022 10:17 AM EDT [facility] Differential Type Manual LAB HEMATOLOGY METHOD 10/01/2022 10:17 AM EDT [facility] Blood Venous blood specimen / Unknown Venipuncture / Unknown 10/01/2022 6:39 AM EDT 10/01/2022 7:43 AM EDT [facility] - 10/01/2022 10:17 AM EDT [...] ORDERABLES Final Resul t Performing Organization Address [facility] de Phone Number [facility] [address] [place] [address] * (ABNORMAL) Hemoglobin A1c (10/01/2022 6:39 AM EDT) Hemoglobin A1c 9.3(H) <5.7 % 10/01/2022 11:19 AM EDT [facility]ALTH[facility] Blood Venous blood specimen / Unknown Venipuncture / Unknown 10/01/2022 6:39 AM EDT 10/01/2022 7:44 AM EDT Narrative [facility] - 10/01/2022 11:19 AM EDT HA1C Interpretive Data: Diagnosis of Diabetes: Diabetic > or = 6.5% Pre-diabetic 5.7 to 6.4% Non-diabetic < or = 5.6% Glycemic Targets for Type I and Type II Diabetics: Non- Adults <7.0% Adults <6.0% Children and Adolescents <7.5% Source: [place] Diabetes Association. Standards of medical care in diabetes,2017. Diabetes Care.2017:40 (suppl 1):S1-S135. HbA1c assay performed by an ion-exchange chromatography method that is certified traceable to the DCCT. Mitchel HOLLY LAB BLOOD ORDERABLES Final Resul t Performing Organization Address [facility] Co de Phone Number [facility] [address] [place] [address] * Hepatitis panel, acute (10/01/2022 6:39 AM EDT) Hepatitis B Surf Antigen Negative Negative 10/01/2022 11:42 AM EDT [facility] Hepatitis A Antibody IgM Negative Negative 10/01/2022 11:42 AM EDT [facility] Hepatitis B Core Antibody IgM Negative Negative 10/01/2022 11:42 AM EDT [facility] Blood Venous blood specimen / Unknown [...] BLOOD ORDERABLES Final Resul t [facility] [address] [place] [address] * (ABNORMAL) Lipid panel (10/01/2022 6:37 AM EDT) Cholesterol, Plasma 219(H) <200 mg/dL 10/01/2022 10:12 AM EDT [facility] Comment: Cholesterol Reference Range (age >17 years): Desirable <200 mg/dL Borderline 200 to 239 mg/dL Undesirable >239 mg/dL HDL 82 >=50 mg/dL 10/01/2022 10:12 AM EDT [facility] Comment: HDL Cholesterol Reference Ranges (age >17 years): Female, acceptable > or = 50 mg/dL Male, acceptable > or = 40 mg/dL Triglycerides, Plasma 172(H) <150 mg/dL 10/01/2022 10:12 AM EDT [facility] Comment: Triglyceride Reference Range (age >17 years): Desirable: <150 mg/dL Borderline high: 150 to 199 mg/dL High: 200 to 499 mg/dL Very high: >499 mg/dL Increased risk of pancreatitis: >1000 mg/dL Cholesterol/HDL Ratio 3 10/01/2022 10:12 AM EDT [facility]ALTH[facility]ARE [facility] LDL, Calculated 108(H) <100 mg/dL 10:12 AM EDT [facility] Comment: LDL Cholesterol Reference Range (age [...] 12 hours? Unknown 10/01/2022 10:12 AM EDT [facility] Blood Venous blood specimen / Unknown Venipuncture / Unknown 10/01/2022 6:37 AM EDT 10/01/2022 7:49 AM EDT us Mitchel HOLLY LAB BLOOD ORDERABLES Final Resul t [facility] [address] [place] [address] * (ABNORMAL) Comprehensive metabolic panel (10/01/2022 6:37 AM EDT) Glucose, Plasma 364(H) 74 - 99 mg/dL 10/01/2022 10:12 AM EDT [facility] BUN, Plasma 43(H) 8 - 23 mg/dL 10/01/2022 10:12 AM EDT [facility] Creatinine, Plasma 1.02 0.60 - 1.10 mg/dL 10/01/2022 10:12 AM EDT [facility] BUN/Creatinine Ratio 42 10/01/2022 10:12 AM EDT [facility] Sodium, Plasma 140 136 - 145 mmol/L 10/01/2022 10:12 AM EDT [facility] Potassium, Plasma 5.0(H) 3.7 - 4.8 mmol/L 10/01/2022 10:12 AM EDT [facility] Chloride, Plasma 107 97 - 107 mmol/L 10/01/2022 10:12 AM EDT [facility] CO2, Plasma 27 22 - 29 mmol/L 10/01/2022 10:12 AM EDT [facility] Anion Gap 6 6 - 16 mmol/L 10/01/2022 10:12 AM EDT [facility] Total Calcium, Plasma 9.8 8.9 - 10.2 mg/dL 10/01/2022 10:12 AM EDT [facility] Total Protein 6.5 6.3 - 7.9 g/dL 10/01/2022 10:12 AM EDT [facility] Albumin, Plasma 3.3(L) 3.5 - 5.2 g/dL 10/01/2022 10:12 AM EDT [facility] AST, Plasma 67(H) 9 - 36 U/L 10/01/2022 10:12 AM EDT [facility] ALT, Plasma 67(H) 8 - 33 U/L 10/01/2022 10:12 AM EDT [facility] Alkaline Phosphatase, Plasma 103 46 - 142 U/L 10/01/2022 10:12 AM EDT [facility] Total Bilirubin, Plasma 0.3 0.2 - 1.1 mg/dL 10/01/2022 10:12 AM EDT [facility] eGFRcr 62.7 mL/min/1.7 3m*2 10/01/2022 10:12 AM EDT [facility] Comment:Reported eGFRcr in m L/min/1.73m2 is based the CKD-EPI 2020 equation that does not use a race coefficient. Blood Venous blood specimen / Unknown Venipuncture / Unknown 10/01/2022 6:37 AM EDT 10/01/2022 7:49 AM EDT us Mitchel HOLLY LAB BLOOD ORDERABLES Final Resul t [facility] [address] [place] [address] documented in this encounter Visit Diagnoses Diagnosis Routine general medical examination at a health care facility documented in this encounter Care Teams Ocular Care Technician Relationship Specialty Start Date End Date Joshua Urban MD [address] [place] [address] PCP - General 06/27/20 Tri Singletary, [place] [address] Tissue Technician Wad Compressor Operator Adjuster 10/19/17 documented as of this encounter
--- OUTSIDE RECORDS SUMMARY | 2024-08-03 08:03 | XMS_ITS | Referral Summary ---
Author Organization [employer] Address [address] [place] [address] Care Team Providers Care Esthetician Name Role Phone [facility], Provider Not In The System MD Primary [...] your living situation today? I [facility] 06/20/2023 Think about [...] Do you speak a language other than [place] at [facility]? No 06/20/2023 Do you want help with [...] Plan of Treatment Not on file Insurance [facility] MEDICAID B Advance Directives For more information, please contact: [phone] * Full Code (Latest Code Status on File) Date Activated Date Inactivated Comments 06/19/2023 11:00 PM 06/30/2023 2:30 PM Care Teams Esthetician Relationship Specialty Start Date End Date Nate, Provider Not In The System, [place] [address] PCP - General 06/20/23
--- OUTSIDE RECORDS SUMMARY | 2024-08-03 08:03 | XMS_ITS | Clinical Summary ---
Author Organization [email or web address] Address [address] [place] [address] Care Team Providers Care Pourer Name Role Phone [facility], Provider Not In The System MD Primary [...] your living situation today? I have a [facility] place to live 06/20/2023 Think about [...] Do you speak a language other than [facility]? No 06/20/2023 Do you want help with [...] Advance Directives For more information, please contact: [phone] * Full Code (Latest Code Status on File) Date Activated Date Inactivated Comments 06/19/2023 11:00 PM 06/30/2023 2:30 PM Care Teams Pourer Relationship Specialty Start Date End Date [facility], Provider Not In The System, [place] [address] PCP - General 06/20/23
--- OUTSIDE RECORDS SUMMARY | 2024-08-03 08:03 | XMS_ITS | Encounter Summary ---
Author Organization Healthcare Address [address] [place] [address] Care Team Providers Care Integrated Logistics Programs Director Name Role Phone Joshua Urban MD Primary Care Provider [phone] Tri Singletary PRODUCTION CONTROL COORDINATOR Unavailable Unavailable Encounter Details Date Type [...] the past [address] [facility], were you homeless or living in a [...] drink first t michelet in the morning (EYE-END FINDER TWISTING DEPARTMENT) to steady your nerves or to get [...] Description 08/27/2024 9:30 AM EDT Office Visit [facility] [address] [place] [address] Cornelio Burns MD [address] [place] [address] documented as of this encounter Visit Diagnoses Not on filedocumented in this encounter Additional Health Concerns Assessment Noted Time A fall risk assessment has been complete d for the patient 07/16/2024 7:58 AM EDT A Body Mass Index follow-up plan has been documented for the patient 07/16/2024 8:28 AM EDT documented as of this encounter Care Teams Integrated Logistics Programs Director Relationship Specialty Start Date End Date Joshua Urban MD [address] [place] [address] PCP - General 06/27/20 Tri Singletary, [place] [address] Spaghetti Machine Operator Central Office Equipment Engineer 10/19/17 documented as of this encounter
--- OUTSIDE RECORDS SUMMARY | 2024-08-03 08:03 | XMS_ITS | Data Portability ---
Author Organization [facility] Address [address] [place] [address] Care Team Providers Care Tactical/Mobile Watch Officer Name Role Phone LINDA GRANADO Early Learning Teacher [phone] CAYETANO NASSAR Mammal Keeper YARA STEPHENSON Club Waiter/Waitress KAMLA GOMEZ Pain Management Assessment No assessment recorded. Plan of Treatment Reminders Order Date Submit Date Provider Last Modified By Organization Details Last Modified Time Details Appointments None recorde d. Lab HbA1c (hemogl obin A1c), blood 023 05/15/19 23 [facility], [address] [place] [address], [id number], 11:49:30 Referral None recorde d. Procedures None [...] A1c), blood HbA1C 7.0 % Not Available [address], [address], 05/14/2022 11:31:02 Result Notes None recorded. Problems Name Problem SNOMED Code Status Onset Date Resolution Date Notes Provider Name and Address Organization Details Recorded Time Hypertensive disorder 28371171 Active 2022 Mary Stears null, [place] - [facility] 11:11:26 Type 2 diabetes mellitus 64032309 Active 2022 Mary Stears null, [place] - [facility] 11:11:35 Hypercholester olemia 41890128 Active 2022 Mary Stears null, [place] - [facility] 11:11:43 Anxiety 18685890 Active 2022 Mary Stears null, [place] - [facility] 11:11:49 Depressive disorder 54328180 Active 2022 Mary Stears null, [place] - [facility] 11:11:54 Dementia 17136148 Active 2022 Mary Stears null, [place] - [facility] 11:12:50 Migraine 28061983 Active 2022 Mary Stears null, [place] - [facility] 11:13:04 Oxygenator therapy Active 2022 Mary Stears null, [place] - [facility] 11:13:12 Heart disease 20494725 Active 2022 Mary Stears null, [place] - [facility] 11:13:21 Acid reflux 971825401 Active 2022 Mary Stears null, [place] - [facility] 11:13:28 Chronic kidney disease 818772410 Active 2022 Mary Stears null, [place] - [...] Name and Address Organization Details Recorded Time 903146 sulfameth oxazole / trimethop rim medicatio n Not available Not available Not available 05/14/2022 20893 [facility] Mary Stears null, [place] - [facility] 3 11:09:20 301179 acetamino phen medicatio n Not available Not available Not available 05/14/2022 161 [facility] Mary Stears null, [place] - [facility] 3 11:09:59 343699 codeine medicatio n Not available Not available Not available 05/14/2022 2670 [facility] Mary Stears null, [place] - [facility] 3 11:10:05 088805 aspirin medicatio n Not available Not available Not available 05/14/2022 1191 [facility] Mary Stears null, [place] - [facility] 3 11:10:12 640453 bupropion Not available Not available Not available Not available 05/14/2022 24727 [facility] Mary Stears null, [place] - [facility] 3 11:10:21 098075 celecoxib medicatio n Not available Not available Not available 05/14/2022 84211 7 [facility] Mary Stears null, [place] - [facility] 3 11:10:30 169292 duloxetin e medicatio n Not available Not available Not available 05/14/2022 26900 [facility] Mary Stears null, [place] - [facility] 3 11:10:37 651132 erythromy jt medicatio n Not available Not available Not available 05/14/2022 4053 [facility] Mary Stears null, [place] - [facility] 3 11:10:46 712622 naproxen medicatio n Not available Not available Not available 05/14/2022 7258 [facility] Mary Stears null, [place] - [facility] 3 11:10:53 045016 Product containin g penicilli n (product) medicatio n Not available Not available Not available 05/14/2022 14948 8001 SNOMED Mary Stears null, [place] - [facility] 3 11:10:59 961705 pregabali n medicatio n Not available Not available Not available 05/14/2022 30424 2 [facility] Mary Stears [place] - [facility] 3 11:11:07 711819 tramadol medicatio n Not available Not available Not available 05/14/2022 70403 [facility] Mary Stears null, [place] - [facility] 3 11:11:14 Medications Name Sig Start Date [...] Available No t Available Comfort EZ Pen [place] 32 gauge x 1/4 USE DIRECTED 05/14 [...] Address Organization Details Last Updated DateTime 3 19597.6 g 22.5 kg/m2 162.56 cm 18 /min [...] Updated DateTime 3 162.56 cm 23.4 kg/m2 17617.6 6 g 97.7 [degF] 86 /min 93 % 93 % 18 /min 136 mm[Hg] 82 mm[Hg] Kassi Earl [place] - [facility] 3 13:54:46 Date Recorded Body height Body mass index (BMI) Body weight Body temperature Heart rate Oxygen saturation Oxygen saturation in Arterial blood by Pulse oximetry Respiratory rate Systolic blood pressure Diastolic blood pressure Provider Name and Address Organization Details Last Updated DateTime 3 162.56 cm 22.3 kg/m2 73407.0 1 g 97.8 [degF] 92 /min 93 % 93 % 18 /min 128 mm[Hg] 78 mm[Hg] Kassi Earl [place] - [facility] 3 13:43:48 Social History Question [...] Or The Highest Degree You Have Received? AE51550-8 Information not available 05/14/2022 Have There Been Any Changes To Your Family Or Social Situation? No Information no t available 05/14/2022 What Is The Fluoride Status Of Your Home? Unknown Information not available 05/14/2022 Have You Recently Or Are You Planning To Travel To An Area With Zika Virus? No Information not available 08/31/2022 Do You Have A Medical Power Of Heavy Mobile Equipment Repairer? No Daughter Makes Decisions At Times For [...] anxious, or unable to sleep at night)? [id number] Information not available 05/14/2022 Do you have [...] SNOMED-CT Code Diagnosis ICD10 Code Diagnosis Note [id number] Chad García APRN [address] [address] 05/14/2022 10:06:58 05/14/2022 11:44:28 Type 2 diabetes mellitus 10034780 Z79.4 pt had a hard time understand ing how to give self bolus with mealseduca tion on carb counting and non glucose diet given to pta1c 7%return 05/20/22 at 1115 for reinforcem ent to omni pod trainingom ni pod settings: 0.75u/hr 18 units a daysmall bolus 1 unitmed bolus 5unitslarg bolus 10units [id number] Chad García APRN [address] [address] 08/31/2022 13:42:19 08/31/2022 15:03:56 Type 2 diabetes mellitus 77686884 Z79.4 pt had a hard time understand ing how to give self bolus with meals, having fluctuatin g blood glucoseedu cation on carb counting and non glucose diet given to pt [id number] Chad García APRN [address] [address] 09/02/2022 13:24:32 09/02/2022 15:38:25 Type 2 diabetes mellitus 93579326 Z79.4 omnipod 5 training done with arnoldo over the phone. daughter at [facility] / daughter states she understand training Education about insulin pump [id number] 57256 Z46.81 omnipod 5 training completed by arnoldo from [employer] [facility] Concerns Section Related Observation LastModified by Organization Detai ls LastModified Time None Recorded Concern Status LastModified by Organization Details LastModified Time None Recorded Advance Directives Directive N: daughter makes decisions at times for Kassy Payers Insurance Date Sequence Insurance Name Policy Number Policy Guevara Covered Member ID Guevara Member ID Guarantor Name 08/30/2022 1 [place] (MEDICARE REPLACEMENT HMO) [id number] Kassy Hartmann Tri [id number] Kassy Tri Notes Date Note Type Note Provider Name and Address Organization Details Recorded Time 05/14/2022 text/html Kassy is a 62 year old female who presents to the office today with concerns ofproblems with omni pod. pt is having issues understanding how it works. glucose today is 234 Chad García APRN [address], [place], [address], [place] - [facility] 05/14/2022 13:36:20 08/31/2022 text/html [...] bolus. Chad García APRN [address], [place], [address], [employer] - [facility] 08/31/2022 17:32:33 09/02/2022 text/html 62 yr old female presents for omnipod adjustment. pt states she is having problems with hyperglycemia and her pump is only giving her 1 u/day and she is giving herself freq bolus. pt is here today for omnipod 5 training Chad García APRN [address], [place], [address], [place] - [facility] 09/02/2022 15:52:50 OBGyn Episode No OBEpisode recorded.
--- OUTSIDE RECORDS SUMMARY | 2024-08-03 08:03 | XMS_ITS | Encounter Summary ---
Author Organization Healthcare Address [address] [place] [address] Care Team Providers Care Machine Stone Polisher Apprentice Name Role Phone Joshua Urban MD Primary Care Provider [phone] Tri Singletary STONE LATHE OPERATOR Unavailable Unavailable Encounter Details Date Type Department Care Team (Late st Contact Info) Description 05/23/2024 Orders Only External Location [address] [place] [id number] Provider, External Social History Tobacco Use Types [...] any time in the past 12 m [facility], were you homeless or living in a residential (including now)? No 05/24/2024 CAGE ASSESSMENT Answer [...] drink first t michelet in the morning (EYE-TUBE CLEANER) to steady your nerves or to get rid of a hangover? 0 09/26/2022 CAGE Questionnaire Score 0 023 Utilities Answer Date Recorded In the past 12 months has th e [employer], gas, oil, or water company threatened to [...] Description 08/27/2024 9:30 AM EDT Office Visit [facility] [address] [place] [address] Cornelio Burns MD [address] [place] [address] documented as of this encounter Procedures Procedure Name Priority Date/Time Associated Diagnosis Comments POC ULTRASOUND 05/23/2024 documented in this encounter Results * POC Imaging (05/23/2024) Anatomical Region Laterality Modality Pelvis Other 05/23/2024 us External Provider IMG POINT OF CARE ULTRASOUND F inal Result documented in this encounter Visit Diagnoses Not on filedocumented in this encounter Additional Health Concerns Assessment Noted Time A Body Mass Index follow-up plan has been documented for the patient 06/01/2024 1:33 PM EDT documented as of this encounter Care Teams Machine Stone Polisher Apprentice Relationship Specialty Start Date End Date Joshua Urban MD [address] [place] [address] PCP - General 06/27/20 Tri Singletary, [place] [address] Insole And Outsole Preparer Wink Cutter Operator 10/19/17 documented as of this encounter
--- OUTSIDE RECORDS SUMMARY | 2024-08-03 08:04 | XMS_ITS | Encounter Summary ---
Author Organization Healthcare Address [address] [place] [address] Care Team Providers Care Diamond Setter Name Role Phone Joshua Urban MD Primary Care Provider [phone] Tri Singletary LONG DISTANCE BILLING OPERATOR Unavailable Unavailable Encounter Details Date Type [...] any time in the past 12 m [facility], were you homeless or living [...] drink first t michelet in the morning (EYE-CAMP ASSISTANT) to steady your nerves or to get [...] Description 08/27/2024 9:30 AM EDT Office Visit [facility] [address] [place] [address] Cornelio Burns MD [address] [place] [address] documented as of this encounter Visit Diagnoses Not on filedocumented in this encounter Additional Health Concerns Assessment Noted Time A fall risk assessment has been complete d for the patient 06/12/2024 9:30 AM EDT A Body Mass Index follow-up plan has been documented for the patient 06/12/2024 10:46 AM EDT documented as of this encounter Care Teams Diamond Setter Relationship Specialty Start Date End Date Joshua Urban MD [address] [place] [address] PCP - General 06/27/20 Tri Singletary, [place] [address] Knifer Up Associate Professor Of Chemistry 10/19/17 documented as of this encounter
--- OUTSIDE RECORDS SUMMARY | 2024-08-03 08:04 | XMS_ITS | Clinical Summary ---
Author Organization [facility] Address [address] [place] [address] Care Team Providers Care Human Resource Manager Name Role Phone Joshua Urban MD Primary Care Provider + [phone] Tri Singletary HEAD COACH Unavailable Unavailable Allergies Active Allergy Reactions Criticality [...] for sleep. 15 tablet 06/02/19 25 Active ergocalciferol (Vitamin D-2) 1.25 MG (04206 UT) capsule Take 1 capsule by mouth 1 (one) time per week. 4 capsule 06/07/19 25 025 Active Problems Problem Noted Date Diagnosed Date Overweight (BMI 25.0-29.9) 06/01/2024 Overview (06/01/2024): BMI 28.37 Complicates care Current use of fpc anticoagulation 025 Overview (05/27/2024): Resume home eliquis [...] SGT ICU Tertiary, ITSS, AUDIT-C completed 05/24 Saele-en-rajuxem kidney injury 05/23/2024 Overview (05/30/2024): Cr 2.92 [...] Description 07/16/2024 8:40 AM EDT Office Visit [facility] Orthopaedic Surgery & Sports Medicine [address] [place] [id number] Cornelio Burns MD Closed fracture of hip, unspecified laterality, sequela (Primary Dx) 07/16/2024 7:34 AM EDT - 07/16/2024 11:59 PM EDT Hospital Encounter [facility] Radiology [address], [address] [place] [address] Closed fracture of hip, unspecified laterality, sequela Discharge Disposition: Home or Self Care 07/16/2024 Travel 06/12/2024 9:30 AM EDT Office Visit [facility] Orthopaedic Surgery & Sports Medicine [address] [place] [address] Bing Byers, NETWORK SYSTEMS OPERATOR Closed fracture of hip, unspecified laterality, sequela (Primary Dx) 06/12/2024 Telephone [facility] Orthopaedic Surgery & Sports Medicine [address] [facility] [address] [place] [address] Bing Byers, NETWORK SYSTEMS OPERATOR HCN - Patient Message 06/12/2024 Travel 05/29/2024 Travel 05/28/2024 Travel 05/26/2024 Travel 05/25/2024 Travel 05/24/2024 7:30 AM EDT - 05/24/2024 10:35 AM EDT Surgery [facility] [address] [place] [address] Cornelio Burns MD Left Intertroch Intramedullary Nail 05/24/2024 7:28 AM EDT Anesthesia Event [facility] [address] [place] [address] Pio Méndez MD Carney Tinsley, Amanda S, NETWORK SYSTEMS OPERATOR, DNP 05/24/2024 Travel 05/23/2024 12:50 PM EDT Anesthesia Event [facility] Inpatient [address] [place] [address] Manan Aaron DO 05/23/2024 6:14 AM EDT - 06/01/2024 3:23 PM EDT Hospital Encounter [facility] [address] [place] [address] Geoff White MD Griffen, Margaret M, MD Doud, Andrea N, MD Julianne, Ashli N, MD Closed fracture of left hip, initial encounter ([facility]) (Primary Dx); COPD exacerbation ([facility]); Hyperkalemia; RAGHAV (acute kidney injury) ([facility]) Discharge Disposition: Penitentiary Facility 05/23/2024 Orders Only External Location [address] [place] [address] Provider, External 05/23/2024 Orders Only External Location [address] [place] [address] Provider, External 05/23/2024 Orders Only External Location [address] [place] [address] Provider, External 05/23/2024 Orders Only External Location [address] [place] [address] Provider, External 05/23/2024 Orders Only External Location [address] [place] [address] Provider, External 05/23/2024 Orders Only External Location [address] [place] [address] Provider, External 05/23/2024 Orders Only External Location [address] [place] [address] Provider, External 05/23/2024 Travel from Last 3 Months Immunizations Immunization Administration Dates Next Due Hep B, adult 12/04/2018,07/12/2018,05/30/2018 Influenza Vaccine, Quadrival ent, Adjuvanted 11/26/2022 Influenza, Unspecified 12/01/2016 Influenza, high-dose, quadrivalent 04/05/2024 Influenza, injectable, quadr ivalent, preservative free 11/26/2022,03/06/2021,06/04/2017,12/20 Pneumococcal Polysaccharide PPV23 12/26/2015,10/2014 Family History Medical History Relation Name Comments Conversions - Other Cousin alpha-1- antitrypsin deficiency Conversions - Other Father's Brother alph e-2-nubwkrlxfea deficiency Conversions - Other Father's Sister alpha [...] any time in the past 12 m [facility], were you homeless or living in a intermediate (including now)? No 05/24/2024 CAGE ASSESSMENT Answer [...] drink first t michelet in the morning (EYE-EXPORT CLERK) to steady your nerves or to get rid of a hangover? 0 09/26/2022 CAGE Questionnaire Score 0 023 Utilities Answer Date Recorded In the past 12 months has e Flexenclosure, gas, oil, or water Datappraise threatened to shut off services in your [...] Description 08/27/2024 9:30 AM EDT [facility] Medicine [address] [place] [address] Cornelio Burns MD [address] [place] [address] Health Maintenance Due Date Last Done Comments [facility]-Depression Screening 1961 [facility]-Medicare Annual Wellness (AWV) 1960 [facility]-/Child/Adol SDOH Screenings 1961 Diabetes: Dental Exam 1971 [...] - Risk 60-74 years 1-dose series) 2021 [id number] Vaccine (1 - 2023- season) 2023 FOBT 06/22/2024 06/23/2023 [facility]-Colorectal Cancer [...] this topic Medical Devices Implanted Type Area Adapted Physical Education Aide Device Identifier Shelf Expiration Date Model / Serial / Lot Screw 10.5x85mm [employer]ob[employer] Ti Lag [employer] - Sna - [id number] Implanted:Qty: 1 on 05/24/2024 by Cornelio Burns MD at [facility] Screw Left: Femur [id number] 05/24/2025 [id number] / NA / NA Screw 5x35mm Ti [employer]obahn Lonnie Locking [employer] - Sna - [id number] Implanted:Qty: 1 on 05/24/2024 by Cornelio Burns MD at [facility] Screw Left: Femur [employer]-[id number] 05/24/2025 [id number] / NA / NA Ball-Tip Guidewire [id number] - [id number] Implanted:Qty: 1 on 05/24/2024 by Cornelio Burns MD at [facility] Left: Femur [employer]-[id number] 04/19/2031 [id number] / / Nail Ti Trochanteric [id number] 125deg Lt - [id number] Implanted:Qty: 1 on 05/24/2024 by Cornelio Burns MD at [facility] Left: Femur [employer]-[id number] 04/19/2034 [id number] / / Procedures Procedure Name [...] ANESTHESIA PLACEHOLDER Routine 05/24/2024 7:39 AM EDT SC AN ELECTIVE ENDOTRACHEAL AIRWAY Routine 05/24/2024 7:39 AM EDT INSERTION, INTRAMEDULLARY JESICA, FEMUR 05/24/2024 7:13 AM EDT Closed fracture of left hip, initial encounter ([facility]) POTASSIUM, PLASMA Routine 05/24/2024 1:2 [...] MSK OUTSIDE IMAGES 05/23/2024 3:30 AM EDT POC ULTRASOUND 05/23/2024 CT CHEST WO IV CONTRAST Routine 12/02/2019 [...] on 07/16/2024 8:51 AM us Bing Byers NETWORK SYSTEMS OPERATOR IMG XR PROCEDURES Final Re sult * (ABNORMAL) POCT glucose meter (06/01/2024 11:41 AM EDT) Only the most recent of41 resultswithin the time period is included. Pathologist [facility] [place] POCT Glucose 194(H) 74 - 99 mg/dL [...] Comment 06/01/2024 11:43 AM EDT HEALTHCARE LAB Intermediate School Teacher ID Dayana Costa 025 11:43 AM EDT HEALTHCARE LAB Device ID [id number] 06/01/2024 11:43 AM EDT HEALTHCARE LAB Specimen Type POC Capillary 06/01/2024 11:43 AM EDT HEALTHCARE LAB Blood Capillary blood specimen / Unknown 06/01/2024 11:41 AM EDT 06/01/2024 11:43 AM EDT Ashli Whitaker MD LAB POINT OF CARE TEST DOCKED DEVICE UNSOLICITED RESULTS Final Result [facility] [address] [place] [address] * (ABNORMAL) CBC W/O Differential (05/31/2024 4:43 [...] lt [facility] [address] [place] [address] * (ABNORMAL) Basic metabolic panel (05/31/2024 4:43 [...] lt [facility] [address] [place] [address] * (ABNORMAL) Vitamin D 25 Hydroxy (05/30/2024 12:03 AM EDT) Vitamin D 25 Hydroxy 8.8(L) 20.0 - 80.0 ng/mL 05/30/2024 2:57 AM EDT [facility] Blood Venous blood specimen / Unknown Venipuncture / Unknown 05/30/2024 12:03 AM EDT 05/30/2024 12:16 AM EDT Narrative [facility] - 05/30/2024 2:57 AM EDT Testing performed on [employer], standardized against NIST SRM 2972. When testing [...] ng/mL Possible toxicity: >100 ng/mL us Lauren HOLLY LAB BLOOD ORDERABLES Final Resu lt [facility] [address] [place] [address] * XR Chest 1 View (05/29/2024 12:03 [...] Dewayne Medrano MD on 05/29/2024 2:06 PM us Lauren HOLLY IMG XR PROCEDURES Final Result * ECG Adult (05/29/2024 11:40 AM EDT) Only the most recent of3 resultswithin the time period is included. EKG DIAGNOSIS CLASS Abnormal MUSE ECG Ventricular Rate 111 BPM MUSE ECG QRSD Interval 76 ms MUSE ECG QT Interval 334 ms MUSE ECG QTC Interval 454 ms MUSE ECG R [place] -19 degrees MUSE ECG T Wave [place] 14 degrees MUSE ECG Diagnosis Atrial fibrillation [...] 0 AM EDT 05/29/2024 1:01 PM EDT us Lauren Maria Luz Vanessa PA ECG ORDERABLES Final Result MUSE ECG * [...] Res ult [facility] [address] [place] [address] * Lavender Top (05/27/2024 12:46 AM EDT) Pathologist [facility] [place] Extra Hold for add-ons 05/27/2024 3:23 AM EDT [facility] Comment:Auto resulted. Blood Venous blood specimen / Unknown 05/27/2024 12:46 AM EDT 05/27/2024 12:51 AM EDT Lakesha Martin MD LAB BLOOD ORDERABLES Final Result Performing Organization Address City/[facility]/ZIP Co de Phone Number [facility] [address] [place] [address] * (ABNORMAL) Phosphorus, Plasma (05/27/2024 12:46 AM EDT) Only the most recent of5 resultswithin the time period is included. Phosphorus, Plasma 4.6(H) 2.5 - 4.5 mg/dL 05/27/2024 1:30 AM EDT [facility] Blood Venous blood specimen / Unknown Venipuncture / Unknown 05/27/2024 12:46 AM EDT 05/27/2024 12:51 AM EDT us Rukhsana Dawkins APRN LAB BLOOD ORDERABLES Final Result [facility] [address] [place] [address] * Magnesium, Plasma (05/27/2024 12:46 AM EDT) Only the most recent of5 resultswithin the time period is included. Magnesium, Plasma 2.1 1.9 - 2.4 mg/dL 05/27/2024 1:30 AM EDT [facility] Blood Venous blood specimen / Unknown Venipuncture / Unknown 05/27/2024 12:46 AM EDT 05/27/2024 12:51 AM EDT Rukhsana Dawkins APRN LAB BLOOD ORDERABLES Final Result [facility] [address] [place] [address] * XR Tibia Fibula Left 2+ Views [...] Kramer MD on 05/25/2024 9:04 AM us Lakesha Martin MD IMG XR PROCEDURES Final [...] Kramer MD on 05/25/2024 9:04 AM us Lakesha Martin MD IMG XR PROCEDURES Final [...] Kramer MD on 05/25/2024 9:04 AM us Lakesha Martin MD IMG XR PROCEDURES Final [...] FLUOROSCOPY PROCEDURES Fi nal Result IMAGING * SC AN ELECTIVE ENDOTRACHEAL AIRWAY, PB ANESTHESIA PLACEHOLDER (05/24/2024 7:39 AM EDT) Narrative Anitha Ortiz CRNA - 05/24/2024 7:39 AM EDT Antiha Ortiz CRNA 05/24/2024 8:20 AM Airway Date/Time: 05/24/2024 7:39 AM Reason: elective Airway not difficult General Information and Staff Patient location during procedure: OR PLUG OVERWRAP MACHINE TENDER: Anitha Ortiz CRNA Performed: PLUG OVERWRAP MACHINE TENDER Patient Condition Indications for airway management: [...] ORDERABLES Final R esult Performing Organization Address City/[facility]/[place] [address] * Blood Culture (Aerobic/Anaerobet Set) (05/24/2024 12:25 AM EDT) Culture No growth at day 5 GARRISON 05/29/2024 2:02 AM EDT [facility] Blood Venous blood specimen / Unknown Venipuncture / Unknown 05/24/2024 12:25 AM EDT 05/24/2024 1:30 AM EDT us Ronald HOLLY LAB MICROBIOLOGY - GENERAL O RDERABLES Final Result Performing Organization Address City/[facility]/[place] [address] * (ABNORMAL) N-Terminal Probnp, Plasma (05/24/2024 12:17 AM EDT) Only the most recent of2 resultswithin the time period is included. N-Terminal, PROBNP, Plasma 1,091(H) 0 - 899 pg/mL 05/24/2024 1:04 AM EDT [facility] Blood Venous blood specimen / Unknown Venipuncture / Unknown 05/24/2024 12:17 AM EDT 05/24/2024 12:34 AM EDT Ronald Read PA LAB BLOOD ORDERABLES Final R esult Performing Organization Address City/[facility]/ZIP Co de Phone Number [facility] [address] [place] [address] * (ABNORMAL) Prothrombin Time/INR (05/24/2024 12:17 AM [...] 12:17 AM EDT 05/24/2024 12:[address] [facility] - 05/24/2024 12:57 AM EDT OPTIMAL [...] BLOOD ORDERABLES Final Result Performing Organization Address City/[facility]/ZIP Co de Phone Number [facility] [address] [place] [address] * (ABNORMAL) Anti Xa Level Low Molecular Weight (05/23/2024 2:25 PM EDT) Anti Xa Level Low Molecular Weight Heparin >2.00(HH) <2.00 IU/mL LAB COAGULATION METHOD 05/23/2024 3:24 PM EDT [facility] Blood Venous blood specimen / Unknown Venipuncture / Unknown 05/23/2024 2:25 PM EDT 05/23/2024 2:[address] [facility] - 05/23/2024 3:24 PM EDT Therapeutic Range: LMWH enoxaparin 1mg/kg/dose, 12hrs - peak (3-5 hours after dose): 0.5 - 1.0 IU/mL LMWH enoxaparin 1.5mg/kg/dose, 24hrs - peak (3-5 hours after dose): 1.0 - 2.0 IU/mL LMWH enoxaparin prophylaxis: Not established us Mihaela Patrick NETWORK SYSTEMS OPERATOR LAB BLOOD ORDERABLES Taniya suárez Result [facility] [address] [place] [address] * (ABNORMAL) Renal function panel (05/23/2024 1:24 [...] inal Result [facility] [address] [place] [address] * (ABNORMAL) POCT arterial blood gas gem (05/23/2024 1:17 PM EDT) pH, Arterial 7.41 7.31 - 7.42 05/23/2024 1:19 PM EDT [facility] pCO2, Arterial 45 35 - 48 mm Hg 05/23/2024 1:19 PM EDT [facility] pO2, Arterial 58(LL) >80 mm Hg 05/23/2024 1:19 PM EDT [facility] SO2, Arterial 92(L) 94 - 98 % 05/23/2024 1:19 PM EDT [facility] FIO2 32.0 % 05/23/2024 1:19 PM EDT [facility] Base Excess, Arterial 3.4(H) -2 - 3 mmol/L 05/23/2024 1:19 PM EDT [facility] HCO3, Arterial 28.5(H) 22 - 26 mmol/L 05/23/2024 1:19 PM EDT [facility] Total Hemoglobin, Arterial, Whole Blood 9.3(L) 11.2 - 15.7 g/dL 05/23/2024 1:19 PM EDT [facility] Hematocrit, Arterial 28.0(L) 34.0 - 45.0 % 05/23/2024 1:19 PM EDT [facility] Sodium, Arterial 136 136 - 145 mmol/L 05/23/2024 1:19 PM EDT [facility] Potassium, Arterial 4.7 3.6 - 4.9 mmol/L 05/23/2024 1:19 PM EDT [facility] Chloride, Whole Blood 107 97 - 107 mmol/L 05/23/2024 1:19 PM EDT [facility] Glucose, Arterial 128(H) 74 - 99 mg/dL 05/23/2024 1:19 PM EDT [facility] Ionized Calcium, Arterial 5.0 4.6 - 5.1 mg/dL 05/23/2024 1:19 PM EDT [facility] Lactate, Arterial 0.7 0.5 - 1.6 mmol/L 05/23/2024 1:19 PM EDT [facility] Body Temperature 37.2 Celsius 05/23/2024 1:19 PM EDT [facility] pH, Temp Corrected, Arterial 7.41 7.31 - 7.42 05/23/2024 1:19 PM EDT [facility] pCO2, Temp Corrected, Arterial 45 35 - 48 mm Hg 05/23/2024 1:19 PM EDT [facility] pO2, Temp Corrected, Arterial 59(LL) >80 mm Hg 05/23/2024 1:19 PM EDT [facility] Intermediate School Teacher ID Booker Marquez 05/23/2024 1:19 PM EDT [facility] Acknowledged, Notified By AKIN 05/23/2024 1:19 PM EDT [facility] Critical Notify Time 1318 05/23/2024 1:19 PM EDT [facility] Critical Readback Y 05/23/2024 1:19 PM EDT [facility] Blood, Arterial Whole blood specimen / Unknown 05/23/2024 1:17 PM EDT 05/23/2024 1:19 PM EDT us Lakesha Martin MD LAB POINT OF CARE TEST DOCKED DEVICE UNSOLICITED RESULTS Final Result [facility] [address] [place] [address] * PB POINT OF CARE IMAGING PLACEHOLDER [...] monitoring: continuous pulse ox, heart rate and director of cardiac cath lab Anesthesia block type: FI block. Laterality: left [...] blood, and CSF. No immediate complications noted. Ross Chi MD ANESTHESIA ORDERABLES Final Result [...] developed and its performance characteristics determined by [facility] as appropriate for clinical purposes. This assay has not been cleared or approved by the FDA, but is performed in a CLIA regulated laboratory that is qualified to perform high-complexity testing. us Lakesha Martin MD LAB MICROBIOLOGY - GENERAL ORDERABLES Final Result [facility] [address] [place] [address] * Samra auris Surveillance Culture (05/23/2024 12:00 PM EDT) Culture No growth 05/26/2024 6:04 AM EDT [facility] Swab (Axilla and Groin) Non-blood Collection / Unknown 05/23/2024 12:00 PM EDT 05/23/2024 12:08 PM EDT us Lakesha Martin MD LAB MICROBIOLOGY - GENERAL ORDERABLES Final Result Performing Organization Address City/[facility]/ZIP Co de Phone Number [facility] [address] [place] [address] * Multi Drug Resistance Test (05/23/2024 12:00 PM EDT) Culture No Multi Drug Resistant Organisms Isolated 05/24/2024 11:44 AM EDT [facility] Swab (Nares and Andreia Rectal) Non-blood Collection / Unknown 05/23/2024 12:00 PM EDT 05/23/2024 12:08 PM EDT us Lakesha Martin MD LAB MICROBIOLOGY - GENERAL ORDERABLES Final Result Performing Organization Address City/[facility]/ZIP Co de Phone Number [facility] [address] [place] [address] * ECHO, ADULT TRANSTHORACIC COMPLETE (05/23/2024 11:53 [...] is no recent study available for direct [id number]-vn-[id number] comparison. Left Ventricle The left ventricle is [...] is no recent study available for direct pkut-jr-[id number] comparison. us Bign Byers APRN CV ECHO PROCEDURES Final R [...] Final Result [facility] [address] [place] [address] * Ammonia, Plasma (05/23/2024 10:56 AM EDT) Ammonia 18 11 - 51 umol/L 05/23/2024 11:31 AM EDT [facility] Comment:Improper specimen whittaker ndling may falsely increase results. Blood Venous blood specimen / Unknown Venipuncture / Unknown 05/23/2024 10:56 AM EDT 05/23/2024 11:05 AM EDT us Bing Byers APRN LAB BLOOD ORDERABLES Final Result [facility] [address] [place] [address] * (ABNORMAL) Comprehensive metabolic panel (05/23/2024 10:56 [...] EDT 05/23/2024 10:59 AM EDT us Bing Conley Byers NETWORK SYSTEMS OPERATOR LAB BLOOD ORDERABLES Final Result [facility] [address] [place] [address] * XR Knee Left 3 Views (05/23/2024 [...] Bernice Guajardo MD on 05/23/2024 8:37 AM Cornelio Burns MD IMG XR PROCEDURES Final [...] 6:52 AM EDT 05/23/2024 7:01 AM EDT Cornelio Burns MD LAB BLOOD ORDERABLES Final Re sult [facility] [address] [place] [address] * Gold Top (05/23/2024 6:52 AM EDT) Extra Hold for add-ons 05/23/2024 9:01 AM EDT [facility] Comment:Auto resulted. Blood Venous blood specimen / Unknown 05/23/2024 6:52 AM EDT 05/23/2024 6:56 AM EDT Cornelio Burns MD LAB BLOOD ORDERABLES Final Re sult Performing Organization Address [facility]/ZIP Co de Phone Number [facility] [address] [place] [address] * Light Green Top (05/23/2024 6:52 AM EDT) Extra Hold for add-ons 05/23/2024 9:01 AM EDT [facility] Comment:Auto resulted. Blood Venous blood specimen / Unknown 05/23/2024 6:52 AM EDT 05/23/2024 6:56 AM EDT us Cornelio Burns MD LAB BLOOD ORDERABLES Final Re sult Performing Organization Address [facility] Co de Phone Number [facility] [address] [place] [address] * XR Hip Left Stress View (05/23/2024 [...] Deon Hughes MD on 05/23/2024 7:01 AM Cornelio Burns MD IMG XR PROCEDURES Final Resul t * Type and Screen (05/23/2024 6:52 AM EDT) ABO/Rh A Positive 05/23/2024 6:28 AM EDT BLOOD BANK Antibody Screen Negative 05/23/2024 6:28 AM EDT BLOOD BANK Specimen Expiration 05/26/2024 23:59 05/23/2024 6:28 AM EDT BLOOD BANK Blood Venous blood specimen / Unknown Venipuncture / Unknown 05/23/2024 6:52 AM EDT 05/23/2024 6:55 AM EDT Cornelio Burns MD LAB BLOOD BANK TEST ORDERABLE S Final Result BLOOD BANK [address] * (ABNORMAL) Hemoglobin A1c (05/23/2024 6:52 AM [...] Adults <6.0% Children and Adolescents <7.5% Source: [place] [employer]. Standards of medical care in diabetes,2017. Diabetes Care.2017:40 (suppl 1):S1-S135. us Bing Byers NETWORK SYSTEMS OPERATOR LAB BLOOD ORDERABLES Final Result Performing Organization Address City/[facility] Co de Phone Number [facility] [address] [place] [address] * XR MSK OUTSIDE IMAGES (05/23/2024 3:50 [...] Provider IMG XR PROCEDURES Final Result * POC Imaging (05/23/2024) Anatomical Region Laterality Modality Pelvis Other 05/23/2024 us External Provider IMG POINT OF CARE ULTRASOUND F inal Result * CT Chest wo IV Contrast (12/02/2019 5:12 AM EDT) Anatomical Region Laterality Modality Chest Computed Tomogra phy Narrative 12/02/2019 6:25 AM EDT REQUESTING PHYSICIAN: BRIAN BAILEY REASON FOR EXAMINATION/PROCEDURE: RAD PDP:Y * Fall, EXAMINATION / PROCEDURE: CT Chest WO IVCON Dec 02 2019 - 05:12; CT Abdomen & Pelvis WO IVCON Dec 02 2019 05:12; CLINICAL INDICATION: Fall. TECHNIQUE: Imaging of [...] on Dec 02 2019 6:24A Transcribed by: PSCB on Dec 02 2019 5:43A Dictated by: JM SUTHERLNAD D.O. on Dec 02 2019 5:43A Procedure [...] on Dec 02 2019 6:24A Transcribed by: PSCB on Dec 02 2019 5:43A Dictated by: [...] 9:34 AM 05/24/2024 10:01 AM Care Teams Human Resource Manager Relationship Specialty Start Date End Date Joshua Urban MD [address] [phone] PCP - General 06/27/20 [address], [place] [address] Lift Truck Operator Director Of Safety And Security 10/19/17
--- OUTSIDE RECORDS SUMMARY | 2024-08-03 08:04 | XMS_ITS | Encounter Summary ---
Author Organization Healthcare Address [address] [place] [address] Care Team Providers Care Terra Cotta Mold Maker Name Role Phone Joshua Urban MD Primary Care Provider [phone] Tri Singletary BIOSTATISTICS DIRECTOR Unavailable Unavailable Reason for Visit * Reason Onset Date Comments HCN - Patient Message 06/12/2024 Encounter Details Date Type Department Care Team (Late st Contact Info) Description 06/12/[address] [facility] Orthopaedic Surgery & Sports Medicine [address] [place] [address] Bing Byers N, CASE PREPARER AND LINER [address] [place] [address] HCN - Patient Message Social [...] drink first t michelet in the morning (EYE-DEPUTY PROSECUTING ATTORNEY) to steady your nerves or to get rid of a hangover? 0 09/26/2022 CAGE Questionnaire Score 0 023 Utilities Answer Date Recorded In the past 12 months has th e electric, gas, oil, or water 9SLID[employer] threatened to shut off services in your [...] Call: Patient saw Bing today. Odilia with [facility] wants to know what the wound care is for this patient. Do they do dressing changes or leave open to air? Please advise. Best contact number: Other: Odilia with [facility] [phone] Optimal time of day to reach caller: ANYTIME Additional comments/information from caller: None Note: Please do not reply to this message. Follow-up communication and further actions as a result of this message need to be communicated with the patient directly, if the patient is not active onMyChart. If the patient is active on MyChart, they will receive notification of the communication/outcome via N[employer] TVt. documented in this encounter Plan of Treatment Upcoming Encounters Date Type Department Care Team (Late st Contact Info) Description 08/27/2024 9:30 AM EDT Office Visit [facility] Orthopaedic Surgery & Sports Medicine [address] [place] [address] Cornelio Burns MD [address] [place] [address] documented as of this encounter Visit Diagnoses Not on filedocumented in this encounter Additional Health Concerns Assessment Noted Time A fall risk assessment has been complete d for the patient 06/12/2024 9:30 AM EDT A Body Mass Index follow-up plan has been documented for the patient 06/12/2024 10:46 AM EDT documented as of this encounter Care Teams Terra Cotta Mold Maker Relationship Specialty Start Date End Date Joshua Urban MD [address] [place] [address] PCP - General 06/27/20 Tri Singletary, [place] [address] [employer] Fabric Inspector 10/19/17 documented as of this encounter
[2024-08-03] MEDS: ALBUTEROL 0.083% 2.5 MG/3 ML NEB IH (08:55)
--- NOTE | 2024-08-03 09:30 | CT_ITS ---
FINAL REPORT TECHNIQUE: Thin section axial images were obtained through the lungs using a low-dose technique per lung cancer screening protocol. Reconstruction images were obtained using the axial data. Exam was performed using dose reduction technique. CLINICAL HISTORY: lung cancer screening, hx smoker, quit 5 years ago, smoked 2ppd for 30 years COMPARISON: CT chest 06/14/2023 FINDINGS: CTDLvol: 2.90 DLP: 96.38 Former smoker 60 pack year history Lungs: Changes of emphysema. New patchy ground-glass opacities in the left upper lobe. New subpleural areas of irregular airspace disease bilaterally with some nodularity. For example, new irregular nodule left lower lobe on image 55 of series 4 measures 11 mm. Lymph nodes: No axillary lymphadenopathy. Mildly prominent mediastinal lymph nodes are similar to the previous study. Mediastinum: Heart size is normal. Pleura/pericardium: No pleural or pericardial effusion. Other: No acute abnormality in the upper abdomen. IMPRESSION: Interval development of bilateral irregular slightly nodular opacities with ground-glass and airspace disease favored to be infectious or inflammatory. Lung RADS: 0 Recommendation: 2 to three-month follow-up chest CT per Fleischner criteria Reviewed, Interpreted and Dictated by Laura Mike MD Transcribed by Diana Casey Authenticated and [facility]
== END 2024-08-03 23:59 | disposition home or self-care (01) ==
PROVIDERS: PCP Internal Medicine Adolescent Medicine; Visit Provider Internal Medicine Pulmonary Disease
DX: J44.9 Chronic obstructive pulmonary disease, unspecified (principal); J18.9 Pneumonia, unspecified organism; R91.8 Other nonspecific abnormal finding of lung field; R94.2 Abnormal results of pulmonary function studies; F17.210 Nicotine dependence, cigarettes, uncomplicated; Z12.2 Encounter for screening for malignant neoplasm of respiratory organs
CPT/HCPCS: 71271; 87070; 87205; 94060; 94726; 94729

== ENCOUNTER 2024-08-30 14:09 | Inpatient (IN) | payer MEDICARE, MEDICAID, SELFPAY ==
--- OUTSIDE RECORDS SUMMARY | 2024-07-16 07:34 | XMS_ITS | Encounter Summary ---
Author Organization Healthcare Address [address] [place] [address] Care Team Providers Care Set Builder Name Role Phone Joshua Urban MD Primary Care Provider [phone] Encounter Details Date Type Department Care Team (Latest Contact Info) Description 07/16/2024 7:34 AM EDT - 07/16/2024 11:59 PM EDT [facility] En[facility] [address], [address] [place] [address] Closed fracture of hip, unspecified laterality, sequela Discharge Disposition: Home or Self Care Social History Tobacco Use Types Packs/Day Years [...] any time in the past 12 m [facility], were you homeless or living in a fpc (including now)? No 05/24/2024 CAGE ASSESSMENT Answer [...] drink first t michelet in the morning (EYE-RAIL GANG SUPERVISOR) to steady your nerves or to get rid of a hangover? 0 09/26/2022 CAGE Questionnaire Score 0 023 Utilities Answer Date Recorded In the past 12 months has th e electric, gas, oil, or water company threatened to shut off services in your home? No 05/24/2024 Comments No Sex and Gender Information Value Date Recorded Sex Assigned at Not on file Legal Sex Female 7:35 PM EDT Gender Identity Not on file Sexual Orientation Not on file documented as of this encounter Medications at Time of Discharge [...] aerosol powder Inhale 1 puff every morning. guaiFENesin (Mucinex) 600 MG 12 hr tablet [...] 2 (two) times a day. 10 mL 06/01/2024 ipratropium-albute rol (Duo-Neb) 0.5-2.5 mg/3 mL nebulizer solution Take 3 mL by nebulization every 6 (six) hours. 180 mL 06/01/2024 isosorbide mononitrate ER (Imdur) 30 MG 24 hr tablet Take 1 tablet by mouth every morning. Do not crush or chew. naloxone (Narcan) 4 mg/0.1 mL nasal spray 1. Give 1 spray in nostril for no/slow breathing or cannot wake after opioid use 2. Call 911 3. Repeat in other nostril if symptoms continue 1 each 06/01/2024 sertraline (Zoloft) 100 MG tablet Take 2 tablets by mouth daily. sodium zirconium cyclosilicate (Lokelma) 5 g packet Take 1 packet by mouth in the morning and 1 packet before bedtime. telmisartan (MIcarDIS) 20 MG tablet Take 1 tablet by mouth daily. documented as of this encounter Plan of Treatment Upcoming Encounters Date Type Department Care Team (Late st Contact Info) Description 09/24/2024 2:30 PM EDT Office Visit [facility] Orthopaedic Surgery & Sports Medicine [address] [place] [address] Cornelio Burns MD [address] [place] [address] documented as of this encounter Procedures Procedure Name Priority Date/Time Associated Diagnosis Comments XR HIP LEFT 2 OR 3 VIEWS Routine 07/16/2024 7:48 AM EDT Closed fracture of hip, unspecified laterality, sequela documented in this encounter Results * XR Hip Left [...] on 07/16/2024 8:51 AM us Bing Byers WEAVING PROFESSOR IMG XR PROCEDURES Final Re sult documented in this encounter Visit Diagnoses Diagnosis Closed fracture of hip, unspecified laterality, sequela documented in this encounter Additional Health Concerns Assessment Noted Time A fall risk assessment has been complete d for the patient 07/16/2024 7:58 AM EDT A Body Mass Index follow-up plan has been documented for the patient 07/16/2024 8:28 AM EDT documented as of this encounter Care Teams Set Builder Relationship Specialty Start Date End Date Joshua Urban MD [address] [place] [address] PCP - General 06/27/20 documented as of this encounter
--- OUTSIDE RECORDS SUMMARY | 2024-07-16 07:34 | XMS_ITS | Encounter Summary ---
Author Organization Healthcare Address [address] [place] [address] Care Team Providers Care Optical Glass Inspector Name Role Phone Joshua Urban MD Primary Care Provider [phone] Encounter Details Date Type Department Care Team (Latest Contact Info) Description 07/16/2024 7:34 AM EDT - 07/16/2024 11:59 PM EDT Hospital Encounter [place] [facility] [address], [address] [place] [address] Closed fracture of hip, unspecified [...] in the past 12 m [facility], were you homeless or living in [...] drink first t michelet in the morning (EYE-SPEAKING UNIT ASSEMBLER) to steady your nerves or to get [...] Description 09/24/2024 2:30 PM EDT Office Visit [facility] Orthopaedic Surgery & Sports Medicine [address] [place] [address] Cornelio Burns MD [address] [place] [address] documented as of this encounter [...] on 07/16/2024 8:51 AM us Bing Byers ENGINEER/CONDUCTOR IMG XR PROCEDURES Final Re sult documented [...] documented as of this encounter Care Teams Optical Glass Inspector Relationship Specialty Start Date End Date Joshua Urban MD [address] [place] [address] PCP - General 06/27/20 documented as of this encounter
--- OUTSIDE RECORDS SUMMARY | 2024-07-16 08:40 | XMS_ITS | Encounter Summary ---
Author Organization Healthcare Address [address] [place] [address] Care Team Providers Care Photography Professor Name Role Phone Joshua Urban MD Primary Care Provider [phone] Reason for Referral * Consultation (Routine) - Authorized Specialty Diagnoses / Procedures Referred By Contac t Referred To Contact Physical Therapy Diagnoses Closed fracture of hip, unspecified laterality, sequela Cornelio Burns MD [id number] [place] [address] Phone: tel: fax: Referral ID Status Reason Start Date Expiration Date Visits Requested Visits Authorized [id number] Authorized Consult and Treat 07/16/2024 01/15/2026 1 1 Reason for Visit * Reason Comments Fracture Encounter Details Date Type Department Care Team (Late st Contact Info) Description 07/16/2024 8:40 AM EDT Office Visit [facility] Orthopaedic Surgery & Sports Medicine [address] [place] [address] Cornelio Burns MD [address] [facility] [address] [place] [address] Closed fracture of hip, unspecified laterality, sequela (Primary Dx) Social History Tobacco Use Types Packs/Day Years Used Date Smoking Tobacco: Every Day Cigarettes 1 50.5 Started: 1975 Passive Smoke Exposure: Current Smokeless Tobacco: Never [...] time in the past 12 m [facility], were you homeless or living in [...] drink first t michelet in the morning (EYE-LOCAL CITY DRIVER) to steady your nerves or to get [...] Description 09/24/2024 2:30 PM EDT Office Visit [facility] Orthopaedic Surgery & Sports Medicine [address] [place] [address] Cornelio Burns MD [address] [place] [address] Scheduled Orders Name Type Priority Associated Diagnoses [...] documented as of this encounter Care Teams Photography Professor Relationship Specialty Start Date End Date Joshua Urban MD [address] [place] [address] PCP - General 06/27/20 documented as of this encounter
--- OUTSIDE RECORDS SUMMARY | 2024-07-16 08:40 | XMS_ITS | Encounter Summary ---
Author Organization Healthcare Address [address] [place] [address] Care Team Providers Care Shredding Specialist Name Role Phone Joshua Urban MD Primary Care Provider [phone] Reason for Referral * Consultation (Routine) - Authorized Specialty Diagnoses / Procedures Referred By Contac t Referred To Contact Physical Therapy Diagnoses Closed fracture of hip, unspecified laterality, sequela Cornelio Burns MD [id number] [place] [address] Phone: tel: fax: Referral ID Status Reason Start Date Expiration Date Visits Requested Visits Authorized [id number] Authorized Consult and Treat 07/16/2024 01/15/2026 1 1 Reason for Visit * Reason Comments Fracture Encounter Details Date Type Department Care Team (Late st Contact Info) Description 07/16/2024 8:40 AM EDT Office Visit [facility] Orthopaedic Surgery & Sports Medicine [address] [place] [address] Cornelio Burns MD [address] [facility] [address] [place] [address] Closed fracture of hip, unspecified [...] any time in the past 12 m [facility], were you homeless or living in a alf (including now)? No 05/24/2024 CAGE ASSESSMENT Answer [...] drink first t michelet in the morning (EYE-BOX WORKER) to steady your nerves or to get [...] Description 09/24/2024 2:30 PM EDT Office Visit [facility] Orthopaedic Surgery & Sports Medicine [address] [place] [address] Cornelio Burns MD [address] [place] [address] Scheduled Orders Name Type Priority Associated Diagnoses [...] documented as of this encounter Care Teams Shredding Specialist Relationship Specialty Start Date End Date Joshua Urban MD [address] [place] [address] PCP - General 06/27/20 documented as of this encounter
[2024-08-30] VITALS (19 sets, daily range): BP systolic 92–181; BP diastolic 45–88; PULSE 69–87; RESP 11–34; TEMP 36.9–39.2; O2SAT 89–97; BMI 28.3
--- NOTE | 2024-08-30 14:09 | ECG_ITS ---
APPROVED REPORT Exam: Resting ECG HR:69 bpm ECG Measurements Heart Rate 69 AXES LA 147 P 46 QRSd 77 QRS -14 QT 372 T 15 QTc 391 Conclusion SINUS RHYTHM VOLTAGE CRITERIA FOR LVH [MEETS CRITERIA IN ONE OF: R(aVL), S(V1), R(V5), R(V5/V6)+S(V1)] MINIMAL ST DEPRESSION [0.025+ mV ST DEPRESSION] ABNORMAL ECG UNCONFIRMED REPORT Normal sinus rhythm. No ST elevation or depression. Nonspecific T wave inversions in lead III and V3 Electronically signed by : GEORGI MCCANN, 08/31/2024 07:07:57
--- NOTE | 2024-08-30 14:18 | HMH.EDGENADL ---
Discharge Plan Disposition Patient Disposition: Admitted Condition: Fair Clinical Impressions Clinical Impression: Multifocal pneumonia Discharge ED Provider: Christie Ramos General Adult HPI <John Dan MD - Last Filed: 08/30/24 15:15> General Chief complaint: Shortness of Breath/Dyspnea Stated complaint: SOA Time Seen by Provider: 08/30/24 14:25 History of Present Illness HPI narrative: Kassy Boggs is a 64F with a history of pneumonia, COPD, CHF, diabetes mellitus, hyperlipidemia, obesity, hypertension who presents to the emergency department from retirement for complaints of shortness of breath. Patient reports that over the last couple days, she has been feeling more short of breath with a productive cough. She reports 2 episodes of posttussis vomiting. She received scheduled breathing treatments at the nursing facility, however these did not seem to be helping. She is normally on 2 L of oxygen nasal cannula at baseline and was increased to 4 L with EMS. Patient received 2 breathing treatments at the facility and then 1 breathing treatment prior to arrival with EMS. Patient does not know if she has had fevers or not. Related Data Home Medications ?Medication ?Instructions ?Recorded ?Confirmed apixaban 5 mg tablet (Eliquis) 5 mg PO BID Blood Thinner 09/06/22 08/03/24 bumetanide 2 mg tablet 2 mg PO DAILY 08/23/23 08/03/24 Held on 09/06/23. Instructions: Pending decrease in stool burden insulin lispro 100 unit/mL 1 sliding scale dose SQ 08/23/23 08/03/24 [facility] USEASDIRECT[facility]-100 Insulin lispro) atorvastatin 10 mg tablet 10 mg PO HS 09/03/23 08/03/24 isosorbide mononitrate 30 mg 30 mg PO DAILY 09/03/23 08/03/24 tablet,extended release 24 hr ipratropium 0.5 mg-albuterol 3 mg 3 ml inhalation Q6HP PRN SHORTNESS 09/04/23 08/03/24 (2.5 mg base)/3 mL nebulization OF BREATH/WHEEZING soln lidocaine 5 % topical patch 1 patch topical DAILY 09/16/23 08/03/24 (Lidoderm) guaifenesin 600 mg tablet, mg PO 12/01/23 08/03/24 extended release 12 hr (Mucus Relief ER) insulin glargine-yfgn 100 unit/mL unit SQ 12/01/23 08/03/24 (3 mL) subcutaneous pen insulin glargine-yfgn 100 unit/mL unit SQ 12/01/23 08/03/24 subcutaneous solution pen needle,diabetic dual safty 30 #100 ea 12/01/23 08/03/24 gauge x 3/16 (BD AutoShield Duo Pen Needle) polyethylene glycol 3350 17 17 g PO 12/01/23 08/03/24 gram/dose oral powder (ClearLax) acetaminophen 500 mg capsule 500 mg PO Q6H PRN 03/05/24 08/03/24 famotidine 20 mg tablet 20 mg PO HS 03/05/24 08/03/24 mineral [id number] glyc ea topical 03/05/24 08/03/24 lotion buspirone 10 mg tablet 10 mg PO 06/13/24 08/03/24 oxycodone-acetaminophen 5 mg-325 tab PO 07/04/24 08/03/24 mg tablet sertraline 100 mg tablet mg PO 07/04/24 08/03/24 aripiprazole 10 mg tablet 10 mg PO DAILY 08/03/24 08/03/24 fluticasone fur. 100 mcg-umeclid 1 inh inhalation 08/03/24 08/03/24 62.5 mcg-vilant 25 mcg inhalat.powder (Trelegy Ellipta) telmisartan 40 mg tablet 40 mg PO DAILY 08/03/24 08/03/24 Previous Rx's ?Medication ?Instructions ?Recorded metoprolol tartrate 25 mg tablet 12.5 mg (1/2 x 25 mg) PO BID 30 05/30/23 days #30 tabs buspirone 5 mg tablet See Rx Instructions .Route 11/22/23 .COMPLEX #60 tabs gabapentin 300 mg capsule 300 mg PO TID 30 days #90 caps 12/29/23 Allergies Allergy/AdvReac Type Severity Reaction Status Date / Time methocarbamol Allergy Severe Altered Verified 08/13/24 14:16 mental status terbutaline (TERBUTALINE) Allergy Severe SWELLS Verified 08/13/24 14:16 THROAT aspirin (ASPIRIN) Allergy Intermediate I-RASH Verified 08/13/24 14:16 codeine (CODEINE) Allergy Intermediate Swelling Verified 08/13/24 14:16 of the Eye diphenhydramine (From Allergy Intermediate Hives Verified 08/13/24 14:16 Benadryl) Sulfa (Sulfonamide Allergy Intermediate Hives Verified 08/13/24 14:16 Antibiotics) (SULFA (SULFONAMIDE ANTIBIOTICS)) sulfamethoxazole (From Allergy Intermediate Hives Verified 08/13/24 14:16 Bactrim) trimethoprim (From Bactrim) Allergy Intermediate Hives Verified 08/13/24 14:16 naproxen (NAPROXEN) Allergy Mild itching Verified 08/13/24 14:16 tramadol (TRAMADOL) Allergy Mild Vomiting Verified 08/13/24 14:16 citalopram (CITALOPRAM) Allergy Unknown SKIN PEEL Verified 08/13/24 14:16 erythromycin base Allergy Unknown I-RASH Verified 08/13/24 14:16 (ERYTHROMYCIN BASE) Penicillins (PENICILLINS) Allergy Unknown I-RASH Verified 08/13/24 14:16 fluticasone (From Advair Allergy Unknown Verified 08/13/24 14:16 Diskus) allergy reaction salmeterol (From Advair Allergy Unknown Verified 08/13/24 14:16 Diskus) allergy reaction bupropion (BUPROPION) AdvReac Severe Hallucinati Verified 08/13/24 14:16 ng duloxetine (DULOXETINE) AdvReac Severe Hallucinati Verified 08/13/24 14:16 ng pregabalin (PREGABALIN) AdvReac Severe Hallucinati Verified 08/13/24 14:16 ng celecoxib (From CELEBREX) AdvReac Mild Vomiting Verified 08/13/24 14:16 [facility] <John Dan MD - Last Filed: 08/30/24 15:15> [facility] Disclaimer: The information contained in this section may have been updated after the patient was seen, as this information can be updated by other users. Medical History Pneumonia Lung nodule Pulmonary Langerhans cell granulomatosis Encounter for screening for malignant neoplasm of lung History of smoking 30 or more pack years Vocal cord dysfunction Community acquired pneumonia Acute on chronic diastolic (congestive) heart failure Lumbar compression fracture RAGHAV (acute kidney injury) C. difficile colitis Cough Hyperkalemia Chronic respiratory failure with hypoxia COPD mixed type Elevated liver enzymes Paroxysmal atrial fibrillation Acute on chronic heart failure with preserved ejection fraction (HFpEF) Suicidal ideation Depression with suicidal ideation Abnormality of lung on CXR Acute and chronic respiratory failure with hypoxia Chest pain Abnormal ankle brachial index (DAVE) Pyelonephritis Restless leg syndrome Hepatitis B Depression Anxiety I think this patient's anxiety is partially related to cognitive deficits. She may well have beginning dementia. She has been cared for by her daughter. Will just follow this closely. Chronic kidney disease Sleep apnea Migraine History of transient ischemic attack (TIA) History of hip fracture History of gastroesophageal reflux (GERD) Diabetes mellitus, type 2 Hyperlipidemia Congestive heart failure Nonspecific chest pain Hip fracture Failure to thrive Closed femur fracture Instability of left knee joint Left knee pain Vaginal pain Abnormal computed tomography angiography (CTA) of abdomen and pelvis Claudication Decreased pedal pulses Other specified symptoms and signs involving the circulatory and respiratory systems Acquired hammer toes of both feet Chronic deep vein thrombosis (DVT) of right lower extremity Primary osteoarthritis of both feet Overweight (BMI 25.0-29.9) Acute worsening of stage 3 chronic kidney disease Diabetes mellitus with neuropathy Left leg swelling Lymphedema Plantar fasciitis, left Foot pain, left Very concerned about the possibility of fracture in this patient. Will send her for x-rays. Obesity (BMI 30.0-34.9) Sepsis Osteoarthritis of feet, bilateral Diabetic peripheral neuropathy associated with type 2 diabetes mellitus Onychoincurvatum Hepatitis C Chest pain Normal coronary arteries Foot pain, right COPD (chronic obstructive pulmonary disease) DVT (deep venous thrombosis) Cellulitis of right foot Hep B w/o coma Hep C w/o coma, chronic Endothelial dysfunction of coronary artery Elevated left ventricular end-diastolic pressure (LVEDP) Cauda equina syndrome ANNIE on CPAP Langerhan's cell histiocytosis SOB (shortness of breath) on exertion Atrial fibrillation HTN (hypertension) PAD (peripheral artery disease) Abdominal pain Diabetes mellitus Renal insufficiency Acute exacerbation of chronic obstructive airways disease Neck Pain Back pain Surgical History History of surgery on right wrist History of hip surgery Hx of tonsillectomy History of cholecystectomy History of appendectomy History of hysterectomy History of cardiac cath Family History Other Coronary artery disease Family history of diabetes mellitus type II Family history of hyperlipidemia Family history of hypertension Social History (Reviewed 08/13/24 @ 14:17 by MADDIE Stephens Smoking Status: Current every day smoker tobacco type: cigarettes packs per day: 2 second hand exposure: Yes alcohol intake: never counseling provided: none substance use type: denies use current occupational status: retired Travel in the last 8 weeks?: None household members: none housing: house lives independently: Yes marital status: education level: middle school current occupational exposures/hazards: No caffeine: Yes special ping needs: No agree to transfusion: No do you feel safe at home: Yes victim of physical abuse: No victim of emotional abuse: No victim of sexual abuse: No would you like helpful sources: No Have you lived/traveled outside [place] in past 30 days?: No Contact w/someone who lives/traveled outside [place] past 30 days?: No Exposure to someone with infectious disease in past 14 days?: No Do you have a fever (greater than 100.4 F or 38 C)?: No Have you tested positive for COVID-19?: No Exposed to someone with COVID-19 in past 14 days?: No Do you have a sore throat?: No Do you have a cough?: No Do you have any weakness?: No Do you have any diarrhea?: No Are you experiencing any unusual bleeding?: No Do you have any muscle aches/pain?: No Do you have any abdominal pain?: No Are you experiencing loss of taste or smell?: No Other Medical History Have you received the Flu Vaccine for this season: Yes Have you received the Pneumonia Vaccine: No <John Dan MD - Last Filed: 08/30/24 15:15> ROS Obtained: Yes Systems reviewed as appropriate & no additional complaints except as documented Physical Exam <John Dan MD - Last Filed: 08/30/24 15:15> General General appearance: alert and in no apparent distress Comment: Ill-appearing Head Head exam: atraumatic Eye Eye exam: Present normal appearance ENT ENT exam: Present normal external ear exam Neck Neck exam: Present full ROM Chest Chest inspection: Present symmetric chest wall rise Respiratory Respiratory exam: Present respiratory distress (Mild increased work of breathing) and other (Crackles present bilaterally) Cardiovascular Cardiovascular exam: Present regular rate and normal rhythm Abdominal Exam Abdominal exam: Present soft; Absent tenderness or guarding Extremities Exam Extremities exam: Present normal inspection Back Exam Back exam: Present normal inspection Neurological Exam Neurological exam: Present alert and oriented X3 Psychiatric Psychiatric exam: Present normal affect Skin Skin exam: Present warm and dry Medical Decision Making <John Dan MD - Last Filed: 08/30/24 15:15> Medical Records Screening: Per USPSTF and CDC recommendations, given the prevalence of disease in our region, it is our hospital?s policy to screen for HIV and viral Hepatitis for all patients aged 18 and over and those with ongoing risk factors. Jordin Inquiry Pt receiving controlled substance: No Vital Signs: 08/30/24 14:12 08/30/24 14:15 08/30/24 14:30 Temperature 99.1 F Temperature Source Oral Pulse Rate 69 72 Pulse Rate [Left] 71 Respiratory Rate 21 24 21 Blood Pressure 169/71 H Blood Pressure [Left Arm] 156/61 H Blood Pressure Mean 103 Blood Pressure Mean [Left Arm] 92 Blood Pressure Source Blood Pressure Source [Left Arm] Automatic Cuff Blood Pressure Position 02 Sat by Pulse Oximetry 95 94 L 97 Oxygen Delivery Method Nasal Cannula Nasal Cannula Nasal Cannula Oxygen Flow Rate (LPM) 4 4 4 08/30/24 15:08 08/30/24 15:30 08/30/24 16:00 Temperature 102.5 F H Temperature Source Oral Pulse Rate 74 77 77 Pulse Rate [Left] Respiratory Rate 19 26 H 28 H Blood Pressure 125/88 181/86 H 168/79 H Blood Pressure [Left Arm] Blood Pressure Mean 105 107 108 Blood Pressure Mean [Left Arm] Blood Pressure Source Blood Pressure Source [Left Arm] Blood Pressure Position 02 Sat by Pulse Oximetry 96 93 L 92 L Oxygen Delivery Method Nasal Cannula Nasal Cannula Nasal Cannula Oxygen Flow Rate (LPM) 4 4 4 08/30/24 16:15 08/30/24 16:31 08/30/24 17:00 Temperature Temperature Source Pulse Rate 76 74 76 Pulse Rate [Left] Respiratory Rate 28 H 34 H 29 H Blood Pressure 144/66 H Blood Pressure [Left Arm] Blood Pressure Mean 92 Blood Pressure Mean [Left Arm] Blood Pressure Source Blood Pressure Source [Left Arm] Blood Pressure Position 02 Sat by Pulse Oximetry 89 L 97 97 Oxygen Delivery Method Nasal Cannula Aerosol Mask Nasal Cannula Oxygen Flow Rate (LPM) 4 4 08/30/24 17:15 08/30/24 17:30 08/30/24 17:30 Temperature 99 F Temperature Source Oral Pulse Rate 82 78 77 Pulse Rate [Left] Respiratory Rate 29 H 27 H 25 H Blood Pressure 94/48 L Blood Pressure [Left Arm] Blood Pressure Mean 63 Blood Pressure Mean [Left Arm] Blood Pressure Source Blood Pressure Source [Left Arm] Blood Pressure Position 02 Sat by Pulse Oximetry 92 L 93 L 93 L Oxygen Delivery Method Nasal Cannula Nasal Cannula Nasal Cannula Oxygen Flow Rate (LPM) 4 4 4 08/30/24 17:44 08/30/24 18:00 08/30/24 18:09 Temperature Temperature Source Pulse Rate 80 77 Pulse Rate [Left] Respiratory Rate 20 27 H Blood Pressure 92/45 L 97/46 L Blood Pressure [Left Arm] Blood Pressure Mean 59 56 Blood Pressure Mean [Left Arm] Blood Pressure Source Blood Pressure Source [Left Arm] Blood Pressure Position 02 Sat by Pulse Oximetry 92 L 91 L 92 L Oxygen Delivery Method Nasal Cannula Nasal Cannula Nasal Cannula Oxygen Flow Rate (LPM) 4 4 4 08/30/24 18:22 Temperature 99 F Temperature Source Oral Pulse Rate 87 Pulse Rate [Left] Respiratory Rate 26 H Blood Pressure 95/54 L Blood Pressure [Left Arm] Blood Pressure Mean Blood Pressure Mean [Left Arm] Blood Pressure Source Automatic Cuff Blood Pressure Source [Left Arm] Blood Pressure Position Supine 02 Sat by Pulse Oximetry Oxygen Delivery Method Nasal Cannula Oxygen Flow Rate (LPM) 4 Lab Data Lab Results 08/30/24 13:57: WBC 22.4 H*, RBC 4.34, Hgb 11.0 L, Hct 36.6 L, MCV 84.3, MCH 25.3 L, MCHC 30.1 L, RDW 15.9, Plt Count 335, MPV 9.7, Neut % (Auto) 78.0, Lymph % (Auto) 12.4, [place] % (Auto) 8.4, Eos % (Auto) 0.2, Baso % (Auto) 0.4, Neut # (Auto) 17.4 H, Lymph # (Auto) 2.8, [place] # (Auto) 1.9 H, Eos # (Auto) 0.0, Baso # (Auto) 0.1, Total Counted 100, Neutrophils % (Manual) 79 H, Lymphocytes % (Manual) 11, Atypical Lymphs % 1.0, Monocytes % (Manual) 9, Platelet Estimate Normal, Microcytosis 1+, Sodium 140, Potassium 4.4, Chloride 103, Carbon Dioxide 31 H, Anion Gap 10.4, BUN 39 H, Creatinine 1.40 H, Estimated Creat Clear 50, Estimated GFR 38 L, Est GFR ( Amer) 46 L, Glucose 74, Calcium 9.4, Magnesium 1.5 L, Total Bilirubin 0.7, AST 30, ALT 18, Alkaline Phosphatase 203 H, Troponin I 0.02, C-Reactive Protein 51.8 H, NT-Pro-B Natriuret Pep 3560 H, Total Protein 8.1, Albumin 3.7, Globulin 4.4 H, Albumin/Globulin Ratio 0.8 L, Procalcitonin 0.183, Chlamy pneumoniae PCR Not detected, Adenovirus (PCR) Not detected, B. pertussis DNA (PCR) Not detected, Coronavirus OC43 (PCR) Not detected, Coronavirus HKU1 (PCR) Not detected, Coronavirus 229E (PCR) Not detected, SARS-CoV-2 (PCR) Not detected, Coronavirus NL63 (PCR) Not detected, Human Metapneumovir PCR Not detected, Influenza A (H1) PCR Not detected, Influ A (H1N1/09) PCR Not detected, Influenza A (H3) PCR Not detected, Influenza Type A (PCR) Not detected, Influenza Type B (PCR) Not detected, M. pneumoniae (PCR) Not detected, Parainfluenza 1 (PCR) Not detected, Parainfluenza 2 (PCR) Not detected, Parainfluenza 3 (PCR) Not detected, Parainfluenza 4 (PCR) Not detected, RSV (PCR) Not detected, Entero/Rhino (PCR) Not detected 08/30/24 14:17: VBG pH 7.36, VBG pCO2 50.2, VBG pO2 42.8 H, VBG HCO3 27.5, VBG Total CO2 29.1 H, VBG O2 Saturation 79.4 H, VBG Base Excess 2.0, VBG Lactic Acid 1.1 08/30/24 17:17: Troponin I 0.02 08/30/24 13:57 08/30/24 13:57 Orders (Tests/Meds): ED MEDICATIONS Generic Name Dose Route Start Last Admin Trade Name Freq PRN Reason Stop Dose Admin Acetaminophen 650 mg 08/30/24 18:46 Acetaminophen 325mg Tab PO 09/29/24 18:45 Q4HP PRN Fever or Mild Pain (1-3) Albuterol/Ipratropium 3 ml 08/31/24 00:00 Ipratropium/Albuterol 3 Ml [facility] 09/30/24 00:00 Q6RT [facility] Enoxaparin Sodium 40 mg 08/31/24 09:00 Enoxaparin 40mg/0.4ml Syringe SUBCUT 09/30/24 08:59 DAILY [facility] Ceftriaxone Sodium 2 gm/ 100 mls @ 200 mls/hr 08/30/24 14:45 08/30/24 14:50 Sodium Chloride IV 09/09/24 14:44 200 mls/hr Q24H CHRISTOPHER Administration Azithromycin 500 mg/ Sodium 250 mls @ 250 mls/hr 08/30/24 14:45 08/30/24 14:50 Chloride IV 09/09/24 14:44 250 mls/hr Q24H CHRISTOPHER Administration Cefepime HCl 2 gm/ Sodium 100 mls @ 200 mls/hr 08/30/24 20:45 Chloride IV 09/09/24 20:44 Q12H [facility] Lactated Ringer's 500 mls @ 999 mls/hr 08/30/24 19:26 Lactated Ringer's 1000 Ml Bag IV 08/30/24 19:56 .Q31M ONE Insulin Human Lispro 0 unit 08/30/24 21:00 Humalog 100 Units/Ml 10ml Vial (Ssi) SUBCUT 09/29/24 20:59 ACHS [facility] Protocol Miscellaneous 1 each 08/30/24 18:45 Vancomycin Consult Request NOTAPPLIC 09/29/24 18:44 CONSULT PHARMACY [facility] Ondansetron HCl 4 mg 08/30/24 18:46 Ondansetron 4mg/2ml Vial IV 09/29/24 18:45 Q6HP PRN Nausea Oxycodone/Acetaminophen 1 each 08/30/24 19:27 Oxycodone 10mg W/Apap 325mg Tablet PO 09/29/24 19:26 Q4HP PRN Moderate Pain (4-6) Oxycodone/Acetaminophen 1 each 08/30/24 19:27 Oxycodone 5mg W/Apap 325mg Tablet PO 09/29/24 19:26 Q4HP PRN Severe Pain (7-10) Sodium Chloride 3 ml 08/30/24 15:42 Sodium Chloride 3% 15ml [facility] 09/29/24 15:41 ONCE PRN INDUCE SPUTUM COLLECTION Sodium Chloride 3 ml 08/30/24 18:43 Sodium Chloride 3% 15ml Neb 09/29/24 18:42 ONCE PRN INDUCE SPUTUM COLLECTION Discontinued Medications Generic Name Dose Route Start Last Admin Trade Name Natalioq PRN Reason Stop Dose Admin Acetaminophen 1,000 mg 08/30/24 16:04 08/30/24 16:07 Acetaminophen 1,000mg/100ml Vial IV 08/30/24 16:05 1,000 mg ONCE ONE Administration Albuterol/Ipratropium 9 ml 08/30/24 16:07 08/30/24 16:12 Ipratropium/Albuterol 3 Ml Neb IH 08/30/24 16:08 9 ml ONCE ONE Administration Magnesium Sulfate 2 gm in 50 mls @ 50 mls/hr 08/30/24 14:56 08/30/24 15:07 Magnesium Sulfate 2gm/50ml Premix IV 08/30/24 15:55 50 mls/hr ONCE ONE Administration Iopamidol 80 ml 08/30/24 17:09 08/30/24 17:10 Iopamidol-370 (76%);100ml Bottle IV 08/30/24 17:10 80 ml ONCE ONE Administration Methylprednisolone Sodium Succinate 125 mg 08/30/24 16:09 08/30/24 16:12 Methylprednisolone Sod Succ 125mg Vial IV 08/30/24 16:10 125 mg ONCE ONE Administration Ondansetron HCl 4 mg 08/30/24 15:42 08/30/24 15:45 Ondansetron 4mg/2ml Vial IV 08/30/24 15:43 4 mg ONCE ONE Administration Sodium Chloride 500 ml 08/30/24 16:26 08/30/24 16:33 Sodium Chloride 0.9% 500ml Bag IV 08/30/24 16:27 500 ml ONCE ONE Administration Sodium Chloride 10 ml 08/30/24 17:09 08/30/24 17:10 Sodium Chloride 0.9% 10ml Syr (Rad Only) IV 08/30/24 17:10 10 ml ONCE ONE Administration Sodium Chloride 50 ml 08/30/24 17:09 08/30/24 17:10 0.9 % Sodium Chloride 50 Ml Vial IV 08/30/24 17:10 50 ml ONCE ONE Administration ORDERS Category Date Time Status CTA Chest [CT angio chest PE protocol] Stat Cat Scan 08/30/24 16:47 Completed CXR --portable [XR chest portable] Stat Exams 08/30/24 14:23 Completed POCUS Point of Care (ER Only) Stat Exams 08/30/24 14:08 Completed BNP [NT Pro Brain Natriuretic Pep.] Stat Lab 08/30/24 13:57 Completed CBC w/Auto Diff [Complete Blood Count Auto Diff] Stat Lab 08/30/24 13:57 Completed CMP [Comprehensive Metabolic Panel] Stat Lab 08/30/24 13:57 Completed CRP [C-Reactive Protein] Stat Lab 08/30/24 13:57 Completed Full Resp Panel w/COVID ([facility]) Routine Lab 08/30/24 13:57 Completed Magnesium Stat Lab 08/30/24 13:57 Completed Procalcitonin Stat Lab 08/30/24 13:57 Completed Troponin I Q3H Lab 08/30/24 17:17 Completed Troponin I Q3H Lab 08/30/24 20:30 Ordered Troponin I Stat Lab 08/30/24 13:57 Completed UA [Urinalysis and Microscopic] Stat Lab 08/30/24 16:32 Ordered Blood Culture Stat Micro 08/30/24 14:44 Received Sputum Culture & Gram Stain Stat Micro 08/30/24 15:42 Ordered Urine Culture Stat Micro 08/30/24 16:32 Ordered VBG [Venous Blood Gas] Stat RT 08/30/24 14:17 Completed ECG Data Tracing #1: I reviewed this ECG and interpreted as documented below: Normal sinus rhythm. No ST elevation or depression. Ventricular rate of 69 bpm. QTc normal at 391. Medical Decision Narrative: Kassy Boggs is a 64F with a history of pneumonia, COPD, CHF, diabetes mellitus, hyperlipidemia, obesity, hypertension who presents to the emergency department from retirement for complaints of shortness of breath. Patient reports that over the last couple days, she has been feeling more short of breath with a productive cough. She reports 2 episodes of posttussis vomiting. She received scheduled breathing treatments at the nursing facility, however these did not seem to be helping. She is normally on 2 L of oxygen nasal cannula at baseline and was increased to 4 L with EMS. Patient received 2 breathing treatments at the facility and then 1 breathing treatment prior to arrival with EMS. Patient does not know if she has had fevers or not. On arrival, patient is mildly hypertensive with blood pressure 156/61, heart rate within normal limits, afebrile with temperature of 99.1 ?F. 94% on 4 L nasal cannula. Physical exam, as stated above, revealed an ill appearing female in mild respiratory distress. She has an active productive cough. She has crackles and rhonchi present bilaterally on lung exam. Cardiac exam is unremarkable. No significant peripheral edema. [id number] bedside ultrasound of the heart and lungs was performed by me personally. Left reticular ejection fraction appears normal, no enlargement of the right ventricle, no D sign or Crawford sign. Patient does have B-lines and what appears to be an effusion present on the left. See procedure note for details. Differential diagnosis includes, but is not limited to: Pneumonia, volume overload, CHF exacerbation, pleural effusion, pneumothorax, ACS, among others. The most morbid conditions were considered and workup was based on these. Workup in the emergency department included: Chest x-ray, troponin, CBC, CMP, CRP, VBG with lactate, procalcitonin, BNP. Workup noted for significant leukocytosis of 22,000. Will empiric antibiotics due to concern for pneumonia/sepsis. Patient had a sputum culture on 08/03/2024 that showed normal respiratory tianna. Given this, will start Rocephin and azithromycin. Chest x-ray interpreted by me personally prior to official radiology read. Patient has increased airspace opacities in the right middle lobe as well as periphery of the upper lobe on the right. THere is opacification in the left perihilar region as well. No pneumothorax is appreciated. Patient does have some nodular opacities on previous x-ray imaging in the bilateral perihilar region and some opacification of the right lung periphery, however it is noticeably changed and worsened from previous x-ray on 05/23/2024. This is concerning for acute pneumonia. VBG showed no acidosis with normal lactate of 1.1. pCO2 normal at 50.2, bicarb normal at 27.5. CMP showed creatinine at baseline at 1.40 and BUN of 39, no significant electrolyte derangement. Magnesium mildly low at 1.5, will replace with 2 g IV magnesium sulfate. Liver enzymes within normal limits. At this time, patient's care was transferred to the oncoming physician, Dr. Ramos, pending completion of patient's laboratory workup, including troponin. <Christie Ramos, DO - Last Filed: 08/30/24 19:40> Vital Signs: 08/30/24 14:12 08/30/24 14:15 08/30/24 14:30 Temperature 99.1 F Temperature Source Oral Pulse Rate 69 72 Pulse Rate [Left] 71 Respiratory Rate 21 24 21 Blood Pressure 169/71 H Blood Pressure [Left Arm] 156/61 H Blood Pressure Mean 103 Blood Pressure Mean [Left Arm] 92 Blood Pressure Source Blood Pressure Source [Left Arm] Automatic Cuff Blood Pressure Position 02 Sat by Pulse Oximetry 95 94 L 97 Oxygen Delivery Method Nasal Cannula Nasal Cannula Nasal Cannula Oxygen Flow Rate (LPM) 4 4 4 08/30/24 15:08 08/30/24 15:30 08/30/24 16:00 Temperature 102.5 F H Temperature Source Oral Pulse Rate 74 77 77 Pulse Rate [Left] Respiratory Rate 19 26 H 28 H Blood Pressure 125/88 181/86 H 168/79 H Blood Pressure [Left Arm] Blood Pressure Mean 105 107 108 Blood Pressure Mean [Left Arm] Blood Pressure Source Blood Pressure Source [Left Arm] Blood Pressure Position 02 Sat by Pulse Oximetry 96 93 L 92 L Oxygen Delivery Method Nasal Cannula Nasal Cannula Nasal Cannula Oxygen Flow Rate (LPM) 4 4 4 08/30/24 16:15 08/30/24 16:31 08/30/24 17:00 Temperature Temperature Source Pulse Rate 76 74 76 Pulse Rate [Left] Respiratory Rate 28 H 34 H 29 H Blood Pressure 144/66 H Blood Pressure [Left Arm] Blood Pressure Mean 92 Blood Pressure Mean [Left Arm] Blood Pressure Source Blood Pressure Source [Left Arm] Blood Pressure Position 02 Sat by Pulse Oximetry 89 L 97 97 Oxygen Delivery Method Nasal Cannula Aerosol Mask Nasal Cannula Oxygen Flow Rate (LPM) 4 4 08/30/24 17:15 08/30/24 17:30 08/30/24 17:30 Temperature 99 F Temperature Source Oral Pulse Rate 82 78 77 Pulse Rate [Left] Respiratory Rate 29 H 27 H 25 H Blood Pressure 94/48 L Blood Pressure [Left Arm] Blood Pressure Mean 63 Blood Pressure Mean [Left Arm] Blood Pressure Source Blood Pressure Source [Left Arm] Blood Pressure Position 02 Sat by Pulse Oximetry 92 L 93 L 93 L Oxygen Delivery Method Nasal Cannula Nasal Cannula Nasal Cannula Oxygen Flow Rate (LPM) 4 4 4 08/30/24 17:44 08/30/24 18:00 08/30/24 18:09 Temperature Temperature Source Pulse Rate 80 77 Pulse Rate [Left] Respiratory Rate 20 27 H Blood Pressure 92/45 L 97/46 L Blood Pressure [Left Arm] Blood Pressure Mean 59 56 Blood Pressure Mean [Left Arm] Blood Pressure Source Blood Pressure Source [Left Arm] Blood Pressure Position 02 Sat by Pulse Oximetry 92 L 91 L 92 L Oxygen Delivery Method Nasal Cannula Nasal Cannula Nasal Cannula Oxygen Flow Rate (LPM) 4 4 4 08/30/24 18:22 Temperature 99 F Temperature Source Oral Pulse Rate 87 Pulse Rate [Left] Respiratory Rate 26 H Blood Pressure 95/54 L Blood Pressure [Left Arm] Blood Pressure Mean Blood Pressure Mean [Left Arm] Blood Pressure Source Automatic Cuff Blood Pressure Source [Left Arm] Blood Pressure Position Supine 02 Sat by Pulse Oximetry Oxygen Delivery Method Nasal Cannula Oxygen Flow Rate (LPM) 4 Lab Data Lab Results 08/30/24 13:57: WBC 22.4 H*, RBC 4.34, Hgb 11.0 L, Hct 36.6 L, MCV 84.3, MCH 25.3 L, MCHC 30.1 L, RDW 15.9, Plt Count 335, MPV 9.7, Neut % (Auto) 78.0, Lymph % (Auto) 12.4, [place] % (Auto) 8.4, Eos % (Auto) 0.2, Baso % (Auto) 0.4, Neut # (Auto) 17.4 H, Lymph # (Auto) 2.8, [place] # (Auto) 1.9 H, Eos # (Auto) 0.0, Baso # (Auto) 0.1, Total Counted 100, Neutrophils % (Manual) 79 H, Lymphocytes % (Manual) 11, Atypical Lymphs % 1.0, Monocytes % (Manual) 9, Platelet Estimate Normal, Microcytosis 1+, Sodium 140, Potassium 4.4, Chloride 103, Carbon Dioxide 31 H, Anion Gap 10.4, BUN 39 H, Creatinine 1.40 H, Estimated Creat Clear 50, Estimated GFR 38 L, Est GFR ( Amer) 46 L, Glucose 74, Calcium 9.4, Magnesium 1.5 L, Total Bilirubin 0.7, AST 30, ALT 18, Alkaline Phosphatase 203 H, Troponin I 0.02, C-Reactive Protein 51.8 H, NT-Pro-B Natriuret Pep 3560 H, Total Protein 8.1, Albumin 3.7, Globulin 4.4 H, Albumin/Globulin Ratio 0.8 L, Procalcitonin 0.183, Chlamy pneumoniae PCR Not detected, Adenovirus (PCR) Not detected, B. pertussis DNA (PCR) Not detected, Coronavirus OC43 (PCR) Not detected, Coronavirus HKU1 (PCR) Not detected, Coronavirus 229E (PCR) Not detected, SARS-CoV-2 (PCR) Not detected, Coronavirus NL63 (PCR) Not detected, Human Metapneumovir PCR Not detected, Influenza A (H1) PCR Not detected, Influ A (H1N1/09) PCR Not detected, Influenza A (H3) PCR Not detected, Influenza Type A (PCR) Not detected, Influenza Type B (PCR) Not detected, M. pneumoniae (PCR) Not detected, Parainfluenza 1 (PCR) Not detected, Parainfluenza 2 (PCR) Not detected, Parainfluenza 3 (PCR) Not detected, Parainfluenza 4 (PCR) Not detected, RSV (PCR) Not detected, Entero/Rhino (PCR) Not detected 08/30/24 14:17: VBG pH 7.36, VBG pCO2 50.2, VBG pO2 42.8 H, VBG HCO3 27.5, VBG Total CO2 29.1 H, VBG O2 Saturation 79.4 H, VBG Base Excess 2.0, VBG Lactic Acid 1.1 08/30/24 17:17: Troponin I 0.02 Orders (Tests/Meds): ED MEDICATIONS Generic Name Dose Route Start Last Admin Trade Name Freq PRN Reason Stop Dose Admin Acetaminophen 650 mg 08/30/24 18:46 Acetaminophen 325mg Tab PO 09/29/24 18:45 Q4HP PRN Fever or Mild Pain (1-3) Albuterol/Ipratropium 3 ml 08/31/24 00:00 Ipratropium/Albuterol 3 Ml Neb IH 09/30/24 00:00 Q6RT CHRISTOPHER Enoxaparin Sodium 40 mg 08/31/24 09:00 Enoxaparin 40mg/0.4ml Syringe SUBCUT 09/30/24 08:59 DAILY CHRISTOPHER Ceftriaxone Sodium 2 gm/ 100 mls @ 200 mls/hr 08/30/24 14:45 08/30/24 14:50 Sodium Chloride IV 09/09/24 14:44 200 mls/hr Q24H CHRISTOPHER Administration Azithromycin 500 mg/ Sodium 250 mls @ 250 mls/hr 08/30/24 14:45 08/30/24 14:50 Chloride IV 09/09/24 14:44 250 mls/hr Q24H CHRISTOPHER Administration Cefepime HCl 2 gm/ Sodium 100 mls @ 200 mls/hr 08/30/24 20:45 Chloride IV 09/09/24 20:44 Q12H CHRISTOPHER Lactated Ringer's 500 mls @ 999 mls/hr 08/30/24 19:26 Lactated Ringer's 1000 Ml Bag IV 08/30/24 19:56 .Q31M ONE Insulin Human Lispro 0 unit 08/30/24 21:00 Humalog 100 Units/Ml 10ml Vial (Ssi) SUBCUT 09/29/24 20:59 ACHS [facility] Protocol Miscellaneous 1 each 08/30/24 18:45 Vancomycin Consult Request NOTAPPLIC 09/29/24 18:44 CONSULT PHARMACY [facility] Ondansetron HCl 4 mg 08/30/24 18:46 Ondansetron 4mg/2ml Vial IV 09/29/24 18:45 Q6HP PRN Nausea Oxycodone/Acetaminophen 1 each 08/30/24 19:27 Oxycodone 10mg W/Apap 325mg Tablet PO 09/29/24 19:26 Q4HP PRN Moderate Pain (4-6) Oxycodone/Acetaminophen 1 each 08/30/24 19:27 Oxycodone 5mg W/Apap 325mg Tablet PO 09/29/24 19:26 Q4HP PRN Severe Pain (7-10) Sodium Chloride 3 ml 08/30/24 15:42 Sodium Chloride 3% 15ml Neb 09/29/24 15:41 ONCE PRN INDUCE SPUTUM COLLECTION Sodium Chloride 3 ml 08/30/24 18:43 Sodium Chloride 3% 15ml Neb 09/29/24 18:42 ONCE PRN INDUCE SPUTUM COLLECTION Discontinued Medications Generic Name Dose Route Start Last Admin Trade Name Freq PRN Reason Stop Dose Admin Acetaminophen 1,000 mg 08/30/24 16:04 08/30/24 16:07 Acetaminophen 1,000mg/100ml Vial IV 08/30/24 16:05 1,000 mg ONCE ONE Administration Albuterol/Ipratropium 9 ml 08/30/24 16:07 08/30/24 16:12 Ipratropium/Albuterol 3 Ml Neb IH 08/30/24 16:08 9 ml ONCE ONE Administration Magnesium Sulfate 2 gm in 50 mls @ 50 mls/hr 08/30/24 14:56 08/30/24 15:07 Magnesium Sulfate 2gm/50ml Premix IV 08/30/24 15:55 50 mls/hr ONCE ONE Administration Iopamidol 80 ml 08/30/24 17:09 08/30/24 17:10 Iopamidol-370 (76%);100ml Bottle IV 08/30/24 17:10 80 ml ONCE ONE Administration Methylprednisolone Sodium Succinate 125 mg 08/30/24 16:09 08/30/24 16:12 Methylprednisolone Sod Succ 125mg Vial IV 08/30/24 16:10 125 mg ONCE ONE Administration Ondansetron HCl 4 mg 08/30/24 15:42 08/30/24 15:45 Ondansetron 4mg/2ml Vial IV 08/30/24 15:43 4 mg ONCE ONE Administration Sodium Chloride 500 ml 08/30/24 16:26 08/30/24 16:33 Sodium Chloride 0.9% 500ml Bag IV 08/30/24 16:27 500 ml ONCE ONE Administration Sodium Chloride 10 ml 08/30/24 17:09 08/30/24 17:10 Sodium Chloride 0.9% 10ml Syr (Rad Only) IV 08/30/24 17:10 10 ml ONCE ONE Administration Sodium Chloride 50 ml 08/30/24 17:09 08/30/24 17:10 0.9 % Sodium Chloride 50 Ml Vial IV 08/30/24 17:10 50 ml ONCE ONE Administration ORDERS Category Date Time Status CTA Chest [CT angio chest PE protocol] Stat Cat Scan 08/30/24 16:47 Completed CXR --portable [XR chest portable] Stat Exams 08/30/24 14:23 Completed POCUS Point of Care (ER Only) Stat Exams 08/30/24 14:08 Completed BNP [NT Pro Brain Natriuretic Pep.] Stat Lab 08/30/24 13:57 Completed CBC w/Auto Diff [Complete Blood Count Auto Diff] Stat Lab 08/30/24 13:57 Completed CMP [Comprehensive Metabolic Panel] Stat Lab 08/30/24 13:57 Completed CRP [C-Reactive Protein] Stat Lab 08/30/24 13:57 Completed Full Resp Panel w/COVID ([facility]) Routine Lab 08/30/24 13:57 Completed Magnesium Stat Lab 08/30/24 13:57 Completed Procalcitonin Stat Lab 08/30/24 13:57 Completed Troponin I Q3H Lab 08/30/24 17:17 Completed Troponin I Q3H Lab 08/30/24 20:30 Ordered Troponin I Stat Lab 08/30/24 13:57 Completed UA [Urinalysis and Microscopic] Stat Lab 08/30/24 16:32 Ordered Blood Culture Stat Micro 08/30/24 14:44 Received Sputum Culture & Gram Stain Stat Micro 08/30/24 15:42 Ordered Urine Culture Stat Micro 08/30/24 16:32 Ordered VBG [Venous Blood Gas] Stat RT 08/30/24 14:17 Completed Medical Decision Narrative: Kassy Boggs is a 64F with a history of pneumonia, COPD, CHF, diabetes mellitus, hyperlipidemia, obesity, hypertension who presents to the emergency department from retirement for complaints of shortness of breath. Patient reports that over the last couple days, she has been feeling more short of breath with a productive cough. She reports 2 episodes of posttussis vomiting. She received scheduled breathing treatments at the nursing facility, however these did not seem to be helping. She is normally on 2 L of oxygen nasal cannula at baseline and was increased to 4 L with EMS. Patient received 2 breathing treatments at the facility and then 1 breathing treatment prior to arrival with EMS. Patient does not know if she has had fevers or not. On arrival, patient is mildly hypertensive with blood pressure 156/61, heart rate within normal limits, afebrile with temperature of 99.1 ?F. 94% on 4 L nasal cannula. Physical exam, as stated above, revealed an ill appearing female in mild respiratory distress. She has an active productive cough. She has crackles and rhonchi present bilaterally on lung exam. Cardiac exam is unremarkable. No significant peripheral edema. [id number] bedside ultrasound of the heart and lungs was performed by me personally. Left reticular ejection fraction appears normal, no enlargement of the right ventricle, no D sign or Crawford sign. Patient does have B-lines and what appears to be an effusion present on the left. See procedure note for details. Differential diagnosis includes, but is not limited to: Pneumonia, volume overload, CHF exacerbation, pleural effusion, pneumothorax, ACS, among others. The most morbid conditions were considered and workup was based on these. Workup in the emergency department included: Chest x-ray, troponin, CBC, CMP, CRP, VBG with lactate, procalcitonin, BNP. Workup noted for significant leukocytosis of 22,000. Will empiric antibiotics due to concern for pneumonia/sepsis. Patient had a sputum culture on 08/03/2024 that showed normal respiratory tianna. Given this, will start Rocephin and azithromycin. Chest x-ray interpreted by me personally prior to official radiology read. Patient has increased airspace opacities in the right middle lobe as well as periphery of the upper lobe on the right. THere is opacification in the left perihilar region as well. No pneumothorax is appreciated. Patient does have some nodular opacities on previous x-ray imaging in the bilateral perihilar region and some opacification of the right lung periphery, however it is noticeably changed and worsened from previous x-ray on 05/23/2024. This is concerning for acute pneumonia. VBG showed no acidosis with normal lactate of 1.1. pCO2 normal at 50.2, bicarb normal at 27.5. CMP showed creatinine at baseline at 1.40 and BUN of 39, no significant electrolyte derangement. Magnesium mildly low at 1.5, will replace with 2 g IV magnesium sulfate. Liver enzymes within normal limits. At this time, patient's care was transferred to the oncoming physician, Dr. Ramos, pending completion of patient's laboratory workup, including troponin. Richard DO: I assumed care of the patient at 1500 at time of departure of the previous provider. On my assessment, she is resting comfortably in bed with an O2 saturation of 88% on 4 L nasal cannula. She does have a low bit tight and wheezy, so I added on 3 DuoNebs. It says she is allergic but she takes this medication at home. I also added on IV methylprednisolone. Labs as discussed above demonstrate leukocytosis in the setting of pneumonia identified on chest x-ray. Patient started to complain of some right breast pain, so I added on a CTA PE protocol to assess for possible PE as a cause of pleuritic chest pain and respiratory failure. I independently interpreted CT PE and noted significant pneumonia with a pleural effusion but no PE. Patient did spike a fever and was noted to be tachypneic with a white count, notable source of infection is pneumonia, so she is septic. Ultimately, I feel the patient would benefit from admission for sepsis secondary to pneumonia and acute on chronic respiratory failure. I had an interactive discussion with the hospitalist who admitted the patient in stable condition Procedures <John Dan MD - Last Filed: 08/30/24 15:15> Limited Ultrasound Interpretation:: Limited cardiac ultrasound Indication: Shortness of breath Identified cardiac views: -Cardiac parasternal long axis -Cardiac parasternal short axis -Cardiac apical four-chamber -Cardiac subxiphoid Findings: -Cardiac activity present -Wall motion grossly normal -Pericardial effusion absent -Right heart strain absent Impression: - From above Images were saved to permanent archive The study was technically adequate CPT: 74488 This study was performed by me, and I personally interpreted all images/videos. Based on my clinical judgement, these images were adequate and did not necessitate further imaging. Limited lung ultrasound A focused ultrasound exam of the pleural spaces was performed to evaluate for pneumothorax, pulmonary edema, pleural effusion and/or consolidation. The ultrasound was performed with the following indications, as noted in the H&P: Dyspnea, hypoxia Identified structures: RIGHT and/or LEFT thoracic cavities were examined. Findings: Lung sliding: - Left present - Right present B-lines: - Left present - Right present Pleural effusion: - Left absent - Right absent Consolidation: - Left present - Right absent Impression: - Pneumothorax absent - Pleural effusion absent - B-lines present - Consolidation present Images were saved to permanent archive The study was technically adequate CPT 45318-22 This study was performed by me, and I personally interpreted all images/videos. Based on my clinical judgement, these images were adequate and did necessitate further imaging with chest x-ray. Critical Care <John Dan MD - Last Filed: 08/30/24 15:15> Critical Care Time Critical Care Time: No <Christie Ramos DO - Last Filed: 08/30/24 19:40> Critical Care Time Critical Care Time: Yes Attestation: On 08/30/24, the high probability of a clinically significant, sudden or life threatening deterioration of the following system(s) required my full and direct attention, intervention and personal management. The time I documented below is in addition to time spent performing reported procedures but includes the following listed in this critical care notation. Total Time Total Critical Care Time: 35
[2024-08-30 14:23] LABS: Hematocrit 36.6 % (37.0-47.0); Hemoglobin 11.0 g/dL (12.2-16.2); Immature Granulocytes % 0.6 %; Mean Corpuscular HGB Conc 30.1 g/dL (31.8-35.4); Mean Corpuscular Hemoglobin 25.3 pg (27.0-31.2); Mean Corpuscular Volume 84.3 fl (81-99); Nucleated Red Blood Cells % 0 %; Platelet Count 335 K/mm3 (142-424); Red Blood Count 4.34 M/mm3 (4.20-5.40); Red Cell Distribution Width-SD 49.0 fL; White Blood Count 22.4 K/mm3 (4.8-10.8)
--- NOTE | 2024-08-30 14:23 | XR_ITS ---
FINAL REPORT CLINICAL HISTORY: Shortness of breath COMPARISON: 05/23/2024 FINDINGS: CHEST 1 VIEW There are patchy airspace opacities, greatest on the right, suspicious for pneumonia. Some of this may be related to chronic change. The heart and mediastinum are unremarkable. IMPRESSION: Findings suspicious for pneumonia. Recommend continued follow-up. Reviewed, Interpreted and Dictated by Marcia Luque MD Transcribed by Janet Barros Authenticated and [facility]
--- OUTSIDE RECORDS SUMMARY | 2024-08-30 14:28 | XMS_ITS | Encounter Summary ---
Author Organization Healthcare Address [address] [place] [address] Care Team Providers Care Locator Specialist Name Role Phone Joshua Urban MD Primary Care Provider [phone] Tri Singletary FAMILY SERVICES COORDINATOR Unavailable Unavailable Encounter Details Date Type Department Care Team (Late st Contact Info) Description 12/16/2017 Orders Only External Location [address] [place] [id number] Provider, External Social History Tobacco Use Types [...] Description 09/24/2024 2:30 PM EDT Office Visit [facility] [address], [address] [place] [address] Cornelio Burns MD [address] [place] [address] documented as of this encounter Procedures Procedure [...] documented as of this encounter Care Teams Locator Specialist Relationship Specialty Start Date End Date Joshua Urban MD [address] [place] [address] PCP - General 06/27/20 Tri Singletary, [place] [address] Cryogenics Repairer Supervisor Agricultural Education 10/19/17 05/05/24 documented as of this encounter
--- OUTSIDE RECORDS SUMMARY | 2024-08-30 14:28 | XMS_ITS | Encounter Summary ---
Author Organization Healthcare Address [address] [place] [address] Care Team Providers Care Newspaper Editor Managing Name Role Phone Joshua Urban MD Primary Care Provider [phone] Tri Singletary INSTRUMENT STERILIZER Unavailable Unavailable Encounter Details Date Type Department Care Team (Late st Contact Info) Description 01/03/2018 [facility] Encounter Historical [facility] [address] [place] [address] Larissa Pineda RN HOSP. SPECIAL DIAGNOSTIC FACILITIES [...] need a new referral from her primary investment sales assistant. Pt verbalized understanding. * Progress Notes - [...] or pulmonoligist- I did transfer pt to [facility] for follow up * Progress Notes [...] to pt, referring MD, and saved to [facility]. * Progress Notes - Larissa Pineda [...] questionnaires and map for ICE on 12/15 [id number] [phone] * Progress Notes - Wen Stiles [...] and map , and refer. MD letter [phone] * Progress Notes - Wen Stiles [...] Description 09/24/2024 2:30 PM EDT Office Visit [facility] [address], [address] [place] [address] Cornelio Burns MD [address] [place] [address] documented as of this encounter Procedures Procedure [...] RESULTS (MANUAL) (07/12/2018 9:39 AM EDT) Pathologist [facility] External Estimated GFR 41.88 EXTERNAL LAB 07/12/2018 9:39 AM EDT Narrative EXTERNAL LAB - 07/13/2018 11:20 PM EDT Automated LAB Interface Historical Provider MD LAB BLOOD ORDERABLES Taniya l Result Performing Organization Address City[facility] Co de Phone Number EXTERNAL LAB * OTTR LAB RESULTS (MANUAL) (05/30/2018 3:36 PM EDT) [facility] External Estimated GFR 50.67 EXTERNAL LAB 05/30/2018 3:36 PM EDT Narrative EXTERNAL LAB - 06/01/2018 2:30 PM EDT Automated LAB Interface Historical Provider MD LAB BLOOD ORDERABLES Taniya l Result Performing Organization Address [facility] Co de Phone Number EXTERNAL LAB * OTTR LAB RESULTS (MANUAL) (01/17/2018 1:49 PM EST) [facility] External Estimated GFR 53.29 EXTERNAL LAB 01/17/2018 1:49 PM EST Narrative EXTERNAL LAB - 01/17/2018 2:55 PM EST Automated LAB Interface Historical Provider MD LAB BLOOD ORDERABLES Taniya l Result Performing Organization Address [facility]/State/ZIP Co de Phone Number EXTERNAL LAB * OTTR LAB RESULTS (MANUAL) (12/15/2017 11:47 AM EDT) [facility] External FEV1/FVC (Pre) % 1.92 L EXTERNAL [...] ORDERABLES Taniya l Result Performing Organization Address [facility] Co de Phone Number EXTERNAL LAB * OTTR LAB RESULTS (MANUAL) (11/10/2017 9:49 AM EDT) External Estimated GFR 41.54 EXTERNAL LAB 11/10/2017 9:49 AM EDT Narrative EXTERNAL LAB - 11/17/2017 8:46 AM EDT Automated LAB Interface Historical Provider MD LAB BLOOD ORDERABLES Taniya l Result Performing Organization Address [facility] Co de Phone Number EXTERNAL LAB documented in this encounter Visit Diagnoses Not on filedocumented in this encounter Additional Health Concerns Infection Onset Date Last Indicated Resolved Time Gastrointestinal Rule-Out 12/02/2019 12/02/2019 5:23 AM EDT documented as of this encounter Care Teams Newspaper Editor Managing Relationship Specialty Start Date End Date Joshua Urban MD [address] [place] [address] PCP - General 06/27/20 Tri Singletary, [place] [address] Benefit Specialist Corner Brace Block Machine Operator 10/19/17 05/05/24 documented as of this encounter
--- OUTSIDE RECORDS SUMMARY | 2024-08-30 14:28 | XMS_ITS | Encounter Summary ---
Author Organization Healthcare Address [address] [place] [address] Care Team Providers Care Botany Professor Name Role Phone Joshua Urban MD Primary Care Provider [phone] Tri Singletary ANIMAL SCIENCE PROFESSOR Unavailable Unavailable Encounter Details Date Type Department Care Team (Late st Contact Info) Description 12/16/2017 Orders Only External Location [address] [place] [phone] Provider, External Social History Tobacco Use Types [...] Description 09/24/2024 2:30 PM EDT Office Visit [facility] [address], [address] [place] [address] Cornelio Burns MD [address] [place] [address] documented as of this encounter Procedures Procedure [...] documented as of this encounter Care Teams Botany Professor Relationship Specialty Start Date End Date Joshua Urban MD [address] [place] [address] PCP - General 06/27/20 Tri Singletary, [place] [address] Mortgage Loan Officer Administrative Staff Supervisor 10/19/17 05/05/24 documented as of this encounter
--- OUTSIDE RECORDS SUMMARY | 2024-08-30 14:28 | XMS_ITS | Encounter Summary ---
Author Organization Healthcare Address [address] [place] [address] Care Team Providers Care Gallery Assistant Name Role Phone Joshua Urban MD Primary Care Provider [phone] Tri Singletary COAL CARRIER Unavailable Unavailable Encounter Details Date Type Department Care Team (Late Contact Info) Description 01/15/2018 Orders Only External Location [address] [place] [address] Provider, External Social History Tobacco Use Types [...] Description 09/24/2024 2:30 PM EDT Office Visit [facility] [address], [address] [place] [address] Cornelio Burns MD [address] [place] [address] documented as of this encounter Procedures Procedure [...] documented as of this encounter Care Teams Gallery Assistant Relationship Specialty Start Date End Date Joshua Urban MD [address] [place] [address] PCP - General 06/27/20 Tri Singletary, [place] [address] Feed Mill Tender Motorman/Woman 10/19/17 05/05/24 documented as of this encounter
[2024-08-30 14:29] LABS: Lactate Venous 1.1 mmol/L (0.4-2.0); VBG HCO3 27.5 mmol/L (23-30); VBG PH 7.36 mmol/L (7.31-7.41); VBG PO2 42.8 mmol/L (28-40)
--- OUTSIDE RECORDS SUMMARY | 2024-08-30 14:29 | XMS_ITS | Encounter Summary ---
Author Organization Healthcare Address [address] [place] [address] Care Team Providers Care Pv Installer Tech Name Role Phone Joshua Urban MD Primary Care Provider [phone] Tri Singletary METEOROLOGY TEACHER Unavailable Unavailable Encounter Details Date Type Department Care Team (Late st Contact Info) Description 09/05/2017 Orders Only External Location [address] [place] [phone] Provider, External Social History Tobacco Use Types [...] Description 09/24/2024 2:30 PM EDT Office Visit [facility] [address] [place] [address] Cornelio Burns MD [address] [place] [address] documented as of this encounter Procedures Procedure [...] documented as of this encounter Care Teams Pv Installer Tech Relationship Specialty Start Date End Date Joshua Urban MD [address] [place] [address] PCP - General 06/27/20 Tri Singletary, [place] [address] Graphic Illustrator Garment Parts Cutter Hand 10/19/17 05/05/24 documented as of this encounter
--- OUTSIDE RECORDS SUMMARY | 2024-08-30 14:29 | XMS_ITS | Encounter Summary ---
Author Organization Healthcare Address [address] [place] [address] Care Team Providers Care Blueprint Processor Name Role Phone Joshua Urban MD Primary Care Provider [phone] Tri Singletary INVESTMENT FUND MANAGER Unavailable Unavailable Encounter Details Date Type Department Care Team (Late st Contact Info) Description 10/01/2022 Lab Requisition [facility] [address] [place] [address] Mitchel Ivey PA [address] [place] [address] Routine general medical examination at [...] drink first t michelet in the morning (EYE-BULK RECEIVER) to steady your nerves or to get [...] Description 09/24/2024 2:30 PM EDT Office Visit [facility] Surgery [facility] Sports Medicine [address], [address] [place] [address] Cornelio Burns MD [address] [place] [address] documented as of this encounter Procedures Procedure Name Priority Date/Time Associated Diagnosis Comments MORPHOLOGY Routine 10/01/2022 6:39 AM EDT Routine general medical examination at a [facility] MANUAL DIFFERENTIAL Routine 10/01/2022 6 :39 AM EDT Routine general medical examination at a [facility] ACUTE HEPATITIS PANEL Routine 10/01/2022 6:39 AM EDT Routine general medical examination at a [facility] CBC WITH AUTO DIFFERENTIAL Routine 10/01/2022 6:39 AM EDT Routine general medical examination at a [facility] HEMOGLOBIN A1C Routine 10/01/2022 6:39 AM EDT Routine general medical examination at a [facility] care [facility] LIPID PROFILE, PLASMA Routine 10/01/2022 6:37 AM EDT Routine general medical examination at a [facility] care facility COMPREHENSIVE METABOLIC PANEL, PLASMA Routine 10/01/2022 6:37 AM EDT Routine general medical examination at a [facility] documented in this encounter Results [...] BLOOD ORDERABLES Final Resul t [facility] [address] [place], [place] [id number] * (ABNORMAL) Manual Differential (10/01/2022 6:39 AM [...] Lymphoma Cells Absolute 10/01/2022 10:17 AM EDT [facility] Hairy Cells Absolute 10/01/2022 10:17 AM EDT [facility] Other Cells Absolute 10/01/2022 10:17 AM EDT [facility] Blood Venous blood specimen / Unknown Venipuncture / Unknown 10/01/2022 6:39 AM EDT 10/01/2022 7:43 AM EDT us Mitchel HOLLY LAB BLOOD ORDERABLES Final Resul t [facility] [address] [place] [address] * (ABNORMAL) CBC and Differential (10/01/2022 6:39 AM EDT) WBC Count 11.58(H) 3.70 - 10.30 10*3/uL LAB HEMATOLOGY METHOD 10/01/2022 10:17 AM EDT [facility] RBC Count 4.62 3.90 - 5.20 10*6/uL LAB HEMATOLOGY METHOD 10/01/2022 10:17 AM EDT [facility] HGB 13.0 11.2 - 15.7 g/dL LAB HEMATOLOGY METHOD 10/01/2022 10:17 AM EDT [facility] HCT 41.1 34.0 - 45.0 % LAB HEMATOLOGY METHOD 10/01/2022 10:17 AM EDT [facility] Platelet Count 299 155 - 369 10*3/uL LAB HEMATOLOGY METHOD 10/01/2022 10:17 AM EDT [facility] MCV 89 79 - 98 fL LAB HEMATOLOGY METHOD 10/01/2022 10:17 AM EDT [facility] MCH 28.1 26.0 - 32.0 pg LAB HEMATOLOGY METHOD 10/01/2022 10:17 AM EDT [facility] MCHC 31.6 30.7 - 35.5 g/dL LAB HEMATOLOGY METHOD 10/01/2022 10:17 AM EDT [facility] RDW 14.6(H) 11.5 - 14.5 % LAB HEMATOLOGY METHOD 10/01/2022 10:17 AM EDT [facility] MPV 10.0 8.8 - 12.5 fL LAB HEMATOLOGY METHOD 10/01/2022 10:17 AM EDT [facility] nRBC 0.0 <=0.0 per 100 WBCs LAB HEMATOLOGY METHOD 10/01/2022 10:17 AM EDT [facility] Differential Type Manual LAB HEMATOLOGY METHOD 10/01/2022 10:17 AM EDT [facility] Blood Venous blood specimen / Unknown Venipuncture / Unknown 10/01/2022 6:39 AM EDT 10/01/2022 7:43 AM EDT [facility] - 10/01/2022 10:17 AM EDT Therapeutic [...] Final Resul t Performing Organization Address [facility] de Phone Number [facility] [address] [place] [address] * (ABNORMAL) Hemoglobin A1c (10/01/2022 6:39 AM EDT) Hemoglobin A1c 9.3(H) <5.7 % 10/01/2022 11:19 AM EDT [facility] Blood Venous blood specimen / Unknown Venipuncture / Unknown 10/01/2022 6:39 AM EDT 10/01/2022 7:44 AM EDT Narrative [facility] - 10/01/2022 11:19 AM EDT HA1C Interpretive Data: Diagnosis of Diabetes: Diabetic > or = 6.5% Pre-diabetic 5.7 to 6.4% Non-diabetic < or = 5.6% Glycemic Targets for Type I and Type II Diabetics: Non- Adults <7.0% Adults <6.0% Children and Adolescents <7.5% Source: [place] [employer]. Standards of medical care in diabetes,2017. Diabetes Care.2017:40 (suppl 1):S1-S135. HbA1c assay performed by an ion-exchange chromatography method that is certified traceable to the DCCT. Mitchel HOLLY [facility] BLOOD ORDERABLES Final Resul t Performing Organization Address [facility] Co de Phone Number [facility] [address] [place] [address] * Hepatitis panel, acute (10/01/2022 6:39 AM EDT) Hepatitis B Surf Antigen Negative Negative 10/01/2022 11:42 AM EDT [facility] Hepatitis A Antibody IgM Negative Negative 10/01/2022 11:42 AM EDT [facility] Hepatitis B Core Antibody IgM Negative Negative 10/01/2022 11:42 AM EDT [facility] Blood Venous blood specimen / [...] BLOOD ORDERABLES Final Resul t [facility] [address] [place] [address] * (ABNORMAL) Lipid panel (10/01/2022 6:37 AM EDT) Cholesterol, Plasma 219(H) <200 mg/dL 10/01/2022 10:12 AM EDT [facility] Comment: Cholesterol Reference Range (age >17 years): Desirable <200 mg/dL Borderline 200 to 239 mg/dL Undesirable >239 mg/dL HDL 82 >=50 mg/dL 10/01/2022 10:12 AM EDT [facility] Comment: HDL Cholesterol Reference Ranges (age >17 years): Female, acceptable > or = 50 mg/dL Male, acceptable > or = 40 mg/dL Triglycerides, Plasma 172(H) <150 mg/dL 10/01/2022 10:12 AM EDT [facility] Comment: Triglyceride Reference Range (age >17 years): Desirable: <150 mg/dL Borderline high: 150 to 199 mg/dL High: 200 to 499 mg/dL Very high: >499 mg/dL Increased risk of pancreatitis: >1000 mg/dL Cholesterol/HDL Ratio 3 10/01/2022 10:12 AM EDT [facility] LDL, Calculated 108(H) <100 mg/dL 10:12 AM EDT [facility] Comment: LDL Cholesterol Reference Range [...] 12 hours? Unknown 10/01/2022 10:12 AM EDT [facility] Blood Venous blood specimen / Unknown Venipuncture / Unknown 10/01/2022 6:37 AM EDT 10/01/2022 7:49 AM EDT us Mitchel HOLLY LAB BLOOD ORDERABLES Final Resul t [facility] [address] [place] [address] * (ABNORMAL) Comprehensive metabolic panel (10/01/2022 6:37 AM EDT) Glucose, Plasma 364(H) 74 - 99 mg/dL 10/01/2022 10:12 AM EDT [facility] BUN, Plasma 43(H) 8 - 23 mg/dL 10/01/2022 10:12 AM EDT [facility] Creatinine, Plasma 1.02 0.60 - 1.10 mg/dL 10/01/2022 10:12 AM EDT [facility] BUN/Creatinine Ratio 42 10/01/2022 10:12 AM EDT [facility] Sodium, Plasma 140 136 - 145 mmol/L 10/01/2022 10:12 AM EDT [facility] Potassium, Plasma 5.0(H) 3.7 - 4.8 mmol/L 10/01/2022 10:12 AM EDT [facility] Chloride, Plasma 107 97 - 107 mmol/L 10/01/2022 10:12 AM EDT [facility] CO2, Plasma 27 22 - 29 mmol/L 10/01/2022 10:12 AM EDT [facility] Anion Gap 6 6 - 16 mmol/L 10/01/2022 10:12 AM EDT [facility] Total Calcium, Plasma 9.8 8.9 - 10.2 mg/dL 10/01/2022 10:12 AM EDT [facility] Total Protein 6.5 6.3 - 7.9 g/dL 10/01/2022 10:12 AM EDT [facility] Albumin, Plasma 3.3(L) 3.5 - 5.2 g/dL 10/01/2022 10:12 AM EDT [facility] AST, Plasma 67(H) 9 - 36 U/L 10/01/2022 10:12 AM EDT [facility] ALT, Plasma 67(H) 8 - 33 U/L 10/01/2022 10:12 AM EDT [facility] Alkaline Phosphatase, Plasma 103 46 - 142 U/L 10/01/2022 10:12 AM EDT [facility] Total Bilirubin, Plasma 0.3 0.2 - 1.1 mg/dL 10/01/2022 10:12 AM EDT [facility] eGFRcr 62.7 mL/min/1.7 3m*2 10/01/2022 10:12 AM EDT [facility] Comment:Reported eGFRcr in m L/min/1.73m2 is based the CKD-EPI 2020 equation that does not use a race coefficient. Blood Venous blood specimen / Unknown Venipuncture / Unknown 10/01/2022 6:37 AM EDT 10/01/2022 7:49 AM EDT us Mitchel HOLLY LAB BLOOD ORDERABLES Final Resul t [facility] [address] [place] [address] documented in this encounter Visit Diagnoses Diagnosis Routine general medical examination at a health care facility documented in this encounter Care Teams Blueprint Processor Relationship Specialty Start Date End Date Joshua Urban MD [address] [place] [address] PCP - General 06/27/20 Tri Singletary, [place] [address] Wearing Apparel Folder Electric Sign Wirer 10/19/17 05/05/24 documented as of this encounter
--- OUTSIDE RECORDS SUMMARY | 2024-08-30 14:29 | XMS_ITS | Encounter Summary ---
Author Organization Healthcare Address [address] [place] [address] Care Team Providers Care Director Of Catering Name Role Phone Joshua Urban MD Primary Care Provider [phone] Encounter Details Date Type Department Care Team (Late st Contact Info) Description 05/23/2024 Orders Only External Location [address] [place] [address] Provider, External Social History Tobacco Use Types [...] any time in the past 12 [facility], were you homeless or living in a prison (including now)? No 05/24/2024 CAGE ASSESSMENT Answer [...] drink first t michelet in the morning (EYE-RESEARCH TECHNOLOGIST) to steady your nerves or to get [...] Description 09/24/2024 2:30 PM EDT Office Visit [facility]opa[facility] Surgery [facility] [address], [address] [place] [address] Cornelio Burns MD [address] [place] [address] documented as of this encounter [...] of this encounter Care Teams Director Of Catering Relationship Specialty Start Date End Date Joshua Urban MD [address] [place] [address] PCP - General 06/27/20 documented as of this encounter
--- OUTSIDE RECORDS SUMMARY | 2024-08-30 14:29 | XMS_ITS | Encounter Summary ---
Author Organization Healthcare Address [address] [place] [address] Care Team Providers Care Warehouse Record Clerk Name Role Phone Joshua Urban MD Primary Care Provider [phone] Tri Singletary COMMUNITY HEALTH NAVIGATOR Unavailable Unavailable Encounter Details Date Type Department Care Team (Late st Contact Info) Description 12/01/2019 Orders Only External Location [address] [place] [address] Provider, External Social History Tobacco Use Types [...] Description 09/24/2024 2:30 PM EDT [facility] Visit [facility] [address], [address] [place] [address] Cornelio Burns MD [address] [place] [address] documented as of this encounter Procedures Procedure [...] documented as of this encounter Care Teams Warehouse Record Clerk Relationship Specialty Start Date End Date Joshua Urban MD [address] [place] [address] PCP - General 06/27/20 Tri Singletary, [place] [address] Pad Cutter Tractor Operator 10/19/17 05/05/24 documented as of this encounter
--- OUTSIDE RECORDS SUMMARY | 2024-08-30 14:29 | XMS_ITS | Data Portability ---
Author Organization [facility] Address [address] [place] [address] Care Team Providers Care Hand Touch Up Painter Name Role Phone LINDA GRANADO Survey Supervisor CAYETANO NASSAR Rubber Cutter YARA STEPHENSON Liberal Arts Dean KAMLA GOMEZ Pain Management Assessment No assessment recorded. Plan of Treatment Reminders Order Date Submit Date Provider Last Modified By Organization Details Last Modified Time Details Appointments None recorde d. Lab HbA1c (hemogl obin A1c), blood 023 05/15/19 23 [facility], [address] [place] [address], [phone], 11:49:30 Referral None recorde d. Procedures None [...] A1c), blood HbA1C 7.0 % Not Available [address], [address], 05/14/2022 11:31:02 Result Notes None recorded. Problems Name Problem SNOMED Code Status Onset Date Resolution Date Notes Provider Name and Address Organization Details Recorded Time Hypertensive disorder 36294583 Active 2022 Mary Stears null, [place] - [facility] 11:11:26 Type 2 diabetes mellitus 73586519 Active 2022 Mary Stears null, [place] - [facility] 3 11:11:35 Hypercholester olemia 66091498 Active 2022 Mary Stears null, [place] - [facility] 3 11:11:43 Anxiety 90101924 Active 2022 Mary Stears null, [place] - [facility] 3 11:11:49 Depressive disorder 38760275 Active 2022 Mary Stears null, [place] - [facility] 3 11:11:54 Dementia 61448808 Active 2022 Mary Stears null, [place] - [facility] 3 11:12:50 Migraine 69005541 Active 2022 Mary Stears null, [place] - [facility] 3 11:13:04 Oxygenator therapy Active 2022 Mary Stears null, [place] - [facility] 3 11:13:12 Heart disease 28440509 Active 2022 Mary Stears null, [place] - [facility] 3 11:13:21 Acid reflux 503203189 Active 2022 Mary Stears null, [place] - [facility] 3 11:13:28 Chronic kidney disease 255332947 Active 2022 Mary Stears null, [place] - [...] [facility] 05/14/2022 11:05:19 Tonsillectomy completed Mary Stears [place] - [facility] 05/14/2022 11:05:24 Appendectomy completed Mary Stears [place] - [facility] 05/14/2022 11:05:29 Cholecystectomy, laparoscopic completed Mary Stears [place] - [facility] 05/14/2022 11:05:34 procedure on wrist completed Mary Stears [place] - [facility] 05/14/2022 11:05:50 Imaging Results None recorded. Procedure Notes None recorded. Medical Equipment None Reported. Allergies Allergen ID Allergen Name Allergen Category Reaction Reaction Severity Criticality Documentation Date Start Date Code Code System Note Provider Name and Address Organization Details Recorded Time 562068 sulfameth oxazole / trimethop rim medicatio n Not available Not available Not available 05/14/2022 61719 RxNorm Mary Stears null, [place] - [facility] 3 11:09:20 746130 acetamino phen medicatio n Not available Not available Not available 05/14/2022 161 RxNorm Mary Stears null, [place] - [facility] 3 11:09:59 485532 codeine medicatio n Not available Not available Not available 05/14/2022 2670 RxNorm Mary Stears null, [place] - [facility] 3 11:10:05 538464 aspirin medicatio n Not available Not available Not available 05/14/2022 1191 RxNorm Mary Stears null, [place] - [facility] 3 11:10:12 799433 bupropion Not available Not available Not available Not available 05/14/2022 52303 RxNorm Mary Stears null, [place] - [facility] 3 11:10:21 811213 celecoxib medicatio n Not available Not available Not available 05/14/2022 95530 7 RxNorm Mary Stears null, [place] - [facility] 3 11:10:30 108283 duloxetin e medicatio n Not available Not available Not available 05/14/2022 65217 RxNorm Mary Stears null, [place] - [facility] 3 11:10:37 892075 erythromy jt medicatio n Not available Not available Not available 05/14/2022 4053 RxNorm Mary Stears null, [place] - [facility] 3 11:10:46 062758 naproxen medicatio n Not available Not available Not available 05/14/2022 7258 RxNorm Mary Stears null, [place] - [facility] 3 11:10:53 640546 Product containin g penicilli n (product) medicatio n Not available Not available Not available 05/14/2022 17605 8001 SNOMED Mary Stears null, [place] - [facility] 3 11:10:59 380201 pregabali n medicatio n Not available Not available Not available 05/14/2022 22762 2 Rx[facility] Mary Stears [place] [facility] 3 11:11:07 245441 tramadol medicatio n Not available Not available Not available 05/14/2022 10328 RxNorm Mary Stears null[place] - [facility] 3 11:11:14 Medications Name Sig Start Date [...] Available Advocate Pen Needle 31 gauge x 3/16 USE DIRECTED 2022 active Not Available Not Available Not Avai lable Eliquis 5 mg tablet TAKE ONE TABLET BY MOUTH TWICE DAILY FOR BLOOD THINNER active Not Available Not Available No t Available Comfort EZ Pen [place] 32 gauge x 1/4 USE DIRECTED 05/14 [...] in Arterial blood by Pulse oximetry Systolic And Diastolic Provider Name and Address Organization Details Last Updated DateTime 3 38790.6 g 22.5 kg/m2 162.56 cm 18 /min 97.4 [degF] 92 /min 97 % 97 % 140/76 mm[Hg] Mary Yang [place] - [facility] 3 10:38:38 Date Recorded Body height Body mass index (BMI) Body weight Body temperature Heart rate Oxygen saturation Oxygen saturation in Arterial blood by Pulse oximetry Respiratory rate Systolic And Diastolic Provider Name and Address Organization Details Last Updated DateTime 3 162.56 cm 23.4 kg/m2 39912.6 6 g 97.7 [degF] 86 /min 93 % 93 % 18 /min 136/82 mm[Hg] Kassi Earl [facility] 3 13:54:46 Date Recorded Body height Body mass index (BMI) Body weight Body temperature Heart rate Oxygen saturation Oxygen saturation in Arterial blood by Pulse oximetry Respiratory rate Systolic And Diastolic Provider Name and Address Organization Details Last Updated DateTime 3 162.56 cm 22.3 kg/m2 57643.0 1 g 97.8 [degF] 92 /min 93 % 93 % 18 /min 128/78 mm[Hg] Kassi Earl [facility] 3 13:43:48 Social History Question Answer Notes LastModified by Organizat ion Details LastModified Time Tobacco Smoking Status Current Every Day Smoker Mary Yang [facility], [place] - [facility] 05/14/2022 11:00:17 Do You [...] Or The Highest Degree You Have Received? TL51318-3 Information not available 05/14/2022 Have There Been Any Changes To Your Family Or Social Situation? No Information no t available 05/14/2022 What Is The Fluoride Status Of Your Home? Unknown Information not available 05/14/2022 Have You Recently Or Are You Planning To Travel To An Area With Zika Virus? No Information not available 08/31/2022 Do You Have A Medical Power Of Billing Rep? No Daughter Makes Decisions At Times For [...] Tobacco Do You Smoke? 1 PPD 1-1 2 Ppd Information not available 05/14/2022 Has Tobacco [...] 05/14/2022 Are you able to walk? YESCAROLE cohn Information not available 05/14/2022 Do you have [...] anxious, or unable to sleep at night)? [id number] Information not available 05/14/2022 Do you have [...] SNOMED-CT Code Diagnosis ICD10 Code Diagnosis Note [id number] Chad García APRN [facility] [address] [place] [address] 05/14/2022 10:06:58 05/14/2022 11:44:28 Type 2 diabetes mellitus 60970637 Z79.4 pt had a hard time understand ing how to give self bolus with mealseduca tion on carb counting and non glucose diet given to pta1c 7%return 05/20/22 at 1115 for reinforcem ent to omni pod trainingom ni pod settings: 0.75u/hr 18 units a daysmall bolus 1 unitmed bolus 5unitslarg bolus 10units [id number] Chad García APRN [address] [address] 08/31/2022 13:42:19 08/31/2022 15:03:56 Type 2 diabetes mellitus 31016414 Z79.4 pt had a hard time understand ing how to give self bolus with meals, having fluctuatin g blood glucoseedu cation on carb counting and non glucose diet given to pt [id number] Chad García APRN [address] [address] 09/02/2022 13:24:32 09/02/2022 15:38:25 Type 2 diabetes mellitus 53462883 Z79.4 omnipod 5 training done with arnoldo over the phone. daughter at [facility] / daughter states she understand training Education about insulin pump [id number] 11383 Z46.81 omnipod 5 training completed by arnoldo from [facility] Health Concerns Section Related Observation LastModified by Organization Detai ls LastModified Time None Recorded Concern Status LastModified by Organization Details LastModified Time None Recorded Advance Directives Directive N: daughter makes decisions at times for Kassy Payers Insurance Date Sequence Insurance Name Policy Number Policy Guevara Covered Member ID Guevara Member ID Guarantor Name 08/30/2022 1 [place]MEDICARE REPLACEMENT HMO) [id number] Kassy Bartlett [id number] Kassy Bartlett Notes Date Note Type Note Provider Name and Address Organization Details Recorded Time 05/14/2022 text/html Kassy is a 62 year old female who presents to the office today with concerns ofproblems with omni pod. pt is having issues understanding how it works. glucose today is 234 Chad García APRN [address], [place], [address], [place] - [facility] 05/14/2022 13:36:20 08/31/2022 text/html [...] bolus. Chad García APRN [address], [place], [address], [facility] - [facility] 08/31/2022 17:32:33 09/02/2022 text/html 62 yr old female presents for omnipod adjustment. pt states she is having problems with hyperglycemia and her pump is only giving her 1 u/day and she is giving herself freq bolus. pt is here today for omnipod 5 training Chad García APRN [address], [place], [address], [place] - [facility] 09/02/2022 15:52:50 OBGyn Episode No OBEpisode recorded.
--- OUTSIDE RECORDS SUMMARY | 2024-08-30 14:29 | XMS_ITS | Data Portability ---
Author Organization [facility] [place] [facility] Address [address] [place] [address] Assessment No assessment recorded. Plan of Treatment [...] Address Organization Details Recorded Time Diabetes mellitus 24736535 Active 2023 Mai Liriano null, [facility] - [facility] - [place] & [place] 4 07:30:59 Clostridium difficile colitis 147526580 Active 2023 Mai Liriano null, [facility] - [facility] - [place] & [place] 4 07:31:08 Compression fracture Active 2023 Mai Liriano null, [facility] - [facility] - [facility] & [place] 4 07:31:21 Chronic kidney disease 471774958 Active 2023 Mai Liriano null, [facility] - [facility] - [facility] & [place] 4 07:31:30 Congestive heart failure 32344467 Active 2023 Mai Liriano null, [facility] - [facility] - [facility] & [place] 4 07:31:43 Chronic obstructive pulmonary disease 93860211 Active 2023 Mai Liriano null, [facility] - [facility] - [facility] & [place] 4 07:31:48 Problem Notes None recorded. Procedures Surgical History Date Name Laterality Status Provider Name and Address Organization Details Recorded Time appendectomy completed Marium RODRIGUEZ [facility] & [place] 02/14/2024 11:17:16 procedure on gallbladder completed Marium RODRIGUEZ [facility] & [place] 02/14/2024 11:17:24 Wrist arthroscopy completed Marium RODRIGUEZ [facility] & [place] 02/14/2024 11:17:31 procedure on lower leg completed Marium RODRIGUEZ [facility] & [place] 02/14/2024 11:18:15 procedure on lower leg completed Marium RODRIGUEZ - [place] & [place] 02/14/2024 11:18:18 tonsillectomy completed Marium RODRIGUEZ [facility] & [place] 02/14/2024 11:18:26 ligation of fallopian tube completed Marium RODRIGUEZ [facility] & [place] 02/14/2024 11:18:34 Imaging Results None recorded. Procedure Notes None recorded. Medical Equipment None Reported. Allergies Allergen ID Allergen Name Allergen Category Reaction Reaction Severity Criticality Documentation Date Start Date Code Code System Note Provider Name and Address Organization Details Recorded Time 105419 fluticaso ne / salmetero l medicatio n Not available Not available Not available 02/14/2024 14898 5 RxNorm POLLO Gonzalez [facility] & [place] 4 07:28:27 941218 aspirin medicatio n Not available Not available Not available 02/14/2024 1191 RxNorm POLLO Gonzalez [facility] & [place] 4 07:28:36 255220 Benadryl medicatio n Not available Not available Not available 02/14/2024 00937 7 RxNorm POLLO Gonzalez [facility] & [place] 4 07:28:42 968206 bupropion Not available Not available Not available Not available 02/14/2024 58787 RxNorm POLLO Gonzalez [facility] & [place] 4 07:28:51 284556 Celebrex medicatio n Not available Not available Not available 02/14/2024 97839 7 RxNorm Mai maloney, [facility] - [facility] & [place] 4 07:28:57 046944 citalopra m medicatio n Not available Not available Not available 02/14/2024 2556 RxNorm Mai maloney, [facility] - [facility] & [place] 4 07:29:03 424838 codeine medicatio n Not available Not available Not available 02/14/2024 2670 RxNorm Mai maloney, [facility] - [facility] & [place] 4 07:29:09 388334 duloxetin e medicatio n Not available Not available Not available 02/14/2024 38646 RxNorm Mai maloney, [facility] - [facility] & [place] 4 07:29:15 749648 erythromy jt medicatio n Not available Not available Not available 02/14/2024 4053 RxNorm Mai maloney, [facility] - [facility] & [place] 4 07:29:24 433062 methocarb nneka medicatio n Not available Not available Not available 02/14/2024 6845 RxNorm Mai maloney, [facility] - [facility] & [place] 4 07:29:33 868527 naproxen medicatio n Not available Not available Not available 02/14/2024 7258 RxNorm Mai maloney, [facility] - [facility] & [place] 4 07:29:40 701261 pregabali n medicatio n Not available Not available Not available 02/14/2024 72190 2 RxNorm POLLO Gonzalez - [facility] & [place] 4 07:29:45 177079 Bactrim medicatio n Not available Not available Not available 02/14/2024 79822 9 RxNorm Mai maloney, [facility] - [facility] & [place] 4 07:29:52 142340 Substance with sulfonami de structure and antibacte rial mechanism of action (substanc e) medicatio n Not available Not available Not available 02/14/2024 46046 8003 SNOMED POLLO Gonzalez [facility] & [place] 4 07:29:59 142060 terbutali ne medicatio n Not available Not available Not available 02/14/2024 36101 RxNorm POLLO Gonzalez [facility] & [place] 4 07:30:12 602028 tramadol medicatio n Not available Not available Not available 02/14/2024 51355 RxNorm POLLO Gonzalez [place] & [place] 4 07:30:18 402114 trimethop rim medicatio n Not available Not available Not available 02/14/2024 49162 RxNorm POLLO Gonzalez [facility] & [place] 4 07:30:38 Medications Name Sig [...] blood by Pulse oximetry Body weight Systolic And Diastolic Provider Name and Address Organization Details Last Updated DateTime 4 67 /min 94 % 94 % 73923.7 7 g 124/62 mm[Hg] Marium Martin [place] - [facility] & [place] 4 11:16:51 Social History None recorded. Functional Status None recorded. Mental Status None recorded. Family History Nothing Reported. Medical History No medical history recorded. Gynecological HistoryNo gynecological history recorded. Obstetrics History GPAL:G 0 P 0 0 0 0 Past Encounters Encounter ID Performer Location Encounter Start Date Encounter Closed Date Diagnosis/Indication Diagnosis SNOMED-CT Code Diagnosis ICD10 Code Diagnosis Note [id number] BRENNA KAUR [place] [address] 11/30/2021 11:21:42 11/30/2021 17:05:50 [id number] BRENNA KAURCherrie Recinos Therapeut [facility] ion [address] [place] [address] 7 12/29/2021 12:00:34 12/29/2021 13:04:52 [id number] CATRACHO BUNCHzCherrie Recinos Therapeut ic Intervent ion [address] [place] [address] 7 01/01/2022 15:02:26 01/05/2022 12:08:39 [id number] BRENNA KAURCherrie Recinos Therapeut [facility] ion [address] [place] [address] 7 01/05/2022 15:56:35 01/06/2022 14:26:19 [id number] BRENNA KAUR Therapeut ic Inter[facility] ion [address] [place] [address] 7 01/13/2022 11:49:38 01/13/2022 14:03:48 [id number] FRAN GEORGE [facility] Inter[facility] [address] [place] [address] 01/21/2022 14:07:08 01/21/2022 15:03:54 [id number] [facility] Inter[facility] [address] [place] [address] 7 01/27/2022 14:54:09 01/28/2022 12:07:[id number] [facility] Therapeut ic Intervent ion [address] [place] [address] 7 02/01/2022 11:42:01 02/01/2022 12:51:07 [id number] FRAN GEORGE [facility] The[facility] ic Intervent ion [address] [place] [address] 7 02/01/2022 12:12:33 02/01/2022 13:03:[id number] [facility] Therapeut ic Intervent ion [address] [place] [address] 7 02/17/2022 10:32:30 02/17/2022 11:05:37 [id number] FRAN GEORGE VOLLEYBALL ASSISTANT COACH [facility] Therapeut ic Intervent ion [address] [place] [address] 02/17/2022 11:06:35 02/17/2022 13:21:44 [id number] Elizabeth CariasDaly in, [facility] Infectiou s Disease -[facility] [place] [address] [place] [address] 02/14/2024 11:03:26 02/14/2024 11:43:51 Clostridioides difficile infection 880120901 A04.72 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 She received Fidaxomici n [...] Name 04/21/2024 1 [place] Kassy Bartlett [id number] Kassy Bartlett 02/14/2024 1 [place]MEDICARE REPLACEMENT HMO) [id number] Kassy Bartlett [id number] Kassy Bartlett 04/21/2024 2 MEDICAID-[facility] CHOICES - FFS/TRADITION AL Kassy Bartlett [id number] Kassy Bartlett Notes Date Note Type Note [...] denies any nausea or vomiting. Elizabeth Lyons, [employer] [address], [place], [address], [facility] - [place] & [place] 02/14/2024 11:29:54 OBGyn Episode No OBEpisode recorded.
--- OUTSIDE RECORDS SUMMARY | 2024-08-30 14:29 | XMS_ITS | Clinical Summary ---
Author Organization [facility] Address [address] [place] [address] Phone Care Team Providers Care Snailer Name Role Phone Unavailable Primary Care Provider [...] - 2023-2 5 season) 2023 Influenza Vaccine (#1) 2024 Hepatitis B Vaccine Aged Out No longe r eligible based on patient's age to complete this topic Meningococcal B Vaccine Aged Out No l onger eligible based on patient's age to complete this topic Insurance [place] PART A AND B
--- OUTSIDE RECORDS SUMMARY | 2024-08-30 14:29 | XMS_ITS ---
Author Organization [facility] rochelle Care Team Providers Care Costume Shop Manager Name Role Phone Yuan Nataliya Unavailable Unavailable SHYLA MONET Unavailable Unavailable JER DAMICO Unavailable Unavailable Roel Velazquez Unavailable Unavailable Allergies and adverse reactions Code CodeSystem Substance Reaction Severity StartDate Concern Status Trimethoprim Unknown 06/30/[address] Sulfa Antibiotics Unknown 06/30/2023 active 462237 RXNORM Pregabalin Unknown 06/30/2023 active 7984 RXNORM Penicillin Unknown 06/30/2023 active 7258 RXNORM Naproxen Unknown 06/30/2023 active 6845 RXNORM Methocarbamol Unknown 06/30/2023 active 4053 RXNORM Erythromycin Unknown 06/30/2023 active 59750 RXNORM DULoxetine Unknown 06/30/2023 active 3498 RXNORM diphenhydrAMINE Unknown 06/30/2023 activ e 2670 RXNORM Codeine Unknown 06/30/2023 active 2556 RXNORM Citalopram Unknown 06/30/2023 active 177337 RXNORM Celecoxib Unknown 06/30/2023 active Bupropion Unknown 06/30/2023 active 1191 RXNORM Aspirin Unknown 06/30/2023 active 161 RXNORM Acetaminophen Unknown 06/30/2023 active Care Team Name Role Address Phone Organization Dates SHYLA DAVIDSON [address] [facility] [address], [place], [address], [facility] (Office[facility] : [facility] 06/30/2023 - 08/17/2023 Nataliya [facility] (Home[facility] 06/30/2023 - 08/17/2023 JER DAMICO [address] [employer] [facility] [address], [place], [address], [facility] (Office[facility] : [facility] 06/30/2023 - 08/17/2023 Roel Velazquez [address], [place], [facility], [facility] (Office[facility] : [facility] 06/30/2023 - 08/17/2023 Immunizations Immunization Status Vaccine Details Vaccine Code CodeSystem Date Notes Influenza new Influenza, split virus, trivalent, injectable, contains preservative 141 CVX created date: 07/22/2023 consent date: 07/22/2023 Educated by kai kilpatrick on 07/22/2023 TB 1 Step Mantoux (PPD) completed tuberculin skin test; purified protein derivative solution, intradermal lotNumber: [id number] expiry: 06/14/2026 Mfg: manatoux Given 0.1 ml Left Forearm intradermally 96 CVX created date: 07/08/2023 consent date: 07/08/2023 administer ed date: 07/08/2023 TB 1 Step Mantoux (PPD) completed tuberculin skin test; purified protein derivative solution, intradermal lotNumber: [id number] expiry: 07/15/2023 Given 0.1 ml Left Forearm intradermally 96 CVX created date: 07/01/2023 consent date: 07/01/2023 administer ed date: 07/01/2023 Mental Status Section Date Assessment Total Score Description 08/17/2023 BIMS 15 cognitively int act CAM 0 No delirium ind icated PHQ-9 15 moderately mateo re depression 07/06/2023 BIMS 15 cognitively int act CAM 0 No delirium ind icated PHQ-9 15 moderately mateo re depression Problems Problem # Description Date of onset Resolved Date Code CodeSystem Concern Status 1 ACUTE EMBOLISM AND THROMBOSIS OF UNSPECIFIED DEEP VEINS OF UNSPECIFIED LOWER EXTREMITY 06/30/[address] active 2 CHRONIC DIASTOLIC (CONGESTIVE) HEART FAILURE 06/30/[address] active 3 CHRONIC KIDNEY DISEASE, STAGE 3 UNSPECIFIED 06/30/[address] active 4 CHRONIC OBSTRUCTIVE PULMONARY DISEASE, UNSPECIFIED 06/30/[address] active 5 CHRONIC RESPIRATORY FAILURE WITH HYPOXIA 06/30/[address] active 6 DIFFICULTY IN WALKING, NOT ELSEWHERE CLASSIFIED 06/30/[address] active 7 DORSALGIA, UNSPECIFIED 06/30/[address] active 8 ESSENTIAL (PRIMARY) HYPERTENSION 06/30/[address] active 9 GASTRO-ESOPHAGEAL REFLUX DISEASE WITHOUT ESOPHAGITIS 06/30/[address] active 10 GENERALIZED ANXIETY DISORDER 06/30/[address] active 11 HYPERKALEMIA 06/30/[address] activ e 12 HYPERLIPIDEMIA, UNSPECIFIED 06/30/[address] active 13 MUSCLE WEAKNESS (GENERALIZED) 06/30/[address] active 14 NICOTINE DEPENDENCE, CIGARETTES, UNCOMPLICATED 06/30/[address] active 15 OTHER SPECIFIED DIABETES MELLITUS WITH DIABETIC NEUROPATHY, UNSPECIFIED 06/30/[address] active 16 PAROXYSMAL ATRIAL FIBRILLATION 06/30/[address] active 17 UNSPECIFIED BACTERIAL PNEUMONIA 06/30/[address] active Reason for Referral No Reasons for Referral Entered Social History Social History Observation Description Start Date End Date Code Code System Current Smoking Status Tobacco smoking consumption unknown 700897375 SNOMED CT Sex Assigned At Female 1960 19803-4 [facility] Gender Identity Female 41299950830888 [address] Vital Signs Code Code System Vitals Name Values and Units Timing Information 9279-1 [facility] Respiratory Rate Value=20.0 Units=/m in 08/17/2023 8310-5 [facility] Body Temperature Value=97.3 Units= F 08/17/2023 80089-9 [facility] O2 % dC Oximetry Value=95.0 Units= % 08/17/2023 33493-1 [facility] Pain Level Value=1.0 08/17/2023 2339-0 [facility] Blood Sugar Vbibt=229.0 Units=mg/dL 08/17/2023 8462-4 [facility] Blood Pressure-Diastolic Value=70 Un its=mmHg 08/17/2023 8480-6 [facility] Blood Pressure-Systolic Nkphe=437 Un its=mmHg 08/17/2023 8867-4 [facility] Heart rate Value=75.0 Units=/min 04/2023 97787-0 [facility] Weight Tlxkg=174.4 Units=Lbs 8302-2 [facility] Height Value=63.0 Units=Inches 06/30/2023
--- OUTSIDE RECORDS SUMMARY | 2024-08-30 14:29 | XMS_ITS ---
Author Organization [facility] Address [address] [id number] Care Team Providers Care Migrant Leader Name Role Phone Joshua Urban MD Primary Care Provider [phone] Hepatitis C Program Status:Closed (Closed) Start date:10/19/2017 Enrollment date:10/19/2017 Enrollment reason:HCV End date:08/24/2024 Close reason:HCV RNA Negative Overview Pt saw [facility] for [facility]. HCV RNA ND 09/25/22. Continued Care and Services Coordination
--- OUTSIDE RECORDS SUMMARY | 2024-08-30 14:29 | XMS_ITS | Encounter Summary ---
Author Organization Healthcare Address [address] [place] [address] Care Team Providers Care Chute Loader Name Role Phone Joshua Urban MD Primary Care Provider [phone] Tri Singletary HEALTH AND SAFETY INSTRUCTOR Unavailable Unavailable Encounter Details Date Type Department Care Team (Late st Contact Info) Description 12/01/2019 Orders Only External Location [address] [place] [address] Provider, External Social History Tobacco Use Types [...] Description 09/24/2024 2:30 PM EDT Office Visit [facility] [address] [place] [address] Cornelio Burns MD [address] [place] [address] documented as of this encounter Procedures Procedure [...] documented as of this encounter Care Teams Chute Loader Relationship Specialty Start Date End Date Joshua Urban MD [address] [place] [address] PCP - General 06/27/20 Tri Singletary, [place] [address] Dungeon Master Methods Time Analyst 10/19/17 05/05/24 documented as of this encounter
--- OUTSIDE RECORDS SUMMARY | 2024-08-30 14:29 | XMS_ITS | Encounter Summary ---
Author Organization Healthcare Address [address] [place] [address] Care Team Providers Care Training Engineer Name Role Phone Joshua Urban MD Primary Care Provider [phone] Tri Singletary FLUSH TESTER Unavailable Unavailable Encounter Details Date Type Department Care Team (Late st Contact Info) Description 12/01/2019 Orders Only External Location [address] [place] [address] Provider, External Social History Tobacco Use Types [...] Description 09/24/2024 2:30 PM EDT Office Visit [facility] [address] [place] [address] Cornelio Burns MD [address] [place] [address] documented as of this encounter Procedures Procedure [...] documented as of this encounter Care Teams Training Engineer Relationship Specialty Start Date End Date Joshua Urban MD [address] [place] [address] PCP - General 06/27/20 Tri Singletary, [place] [address] New Car Make Ready Worker Manager Of Environmental Services 10/19/17 05/05/24 documented as of this encounter
--- OUTSIDE RECORDS SUMMARY | 2024-08-30 14:29 | XMS_ITS | Encounter Summary ---
Author Organization Healthcare Address [address] [place] [address] Care Team Providers Care Headend Technician Name Role Phone Joshua Urban MD Primary Care Provider [phone] Tri Singletary COUNTER WAITER Unavailable Unavailable Encounter Details Date Type Department Care Team (Late Contact Info) Description 10/23/2016 Orders Only External Location [address] [place] [address] Provider, External Social History Tobacco Use Types [...] Orthopa[facility] [address] [place] [address] Cornelio Burns MD [address] [place] [address] documented as of this encounter Procedures Procedure [...] documented as of this encounter Care Teams Headend Technician Relationship Specialty Start Date End Date Joshua Urban MD [address] [place] [address] PCP - General 06/27/20 Tri Singletary, [place] [address] Anthropologist Can Closing Machine Operator 10/19/17 05/05/24 documented as of this encounter
--- OUTSIDE RECORDS SUMMARY | 2024-08-30 14:29 | XMS_ITS | Referral Summary ---
Author Organization [employer] ([place], [place], [place], [place]) Address [address] [place] [address] Care Team Providers Care Head Of Biology Name Role Phone [facility], Provider Not In The System MD [...] pulmonary disease) 01/202306/20/2023 Anxiety and depression 09/25/2022 4 Type 2 diabetes mellitus without complications 0 [...] off services in your home? No 06/20/2023 Food Insecurity Answer Date Recorded Within [...] Do you speak a language other than [place] at [place]? No 06/20/2023 Do you want help with school or training? For example, starting or completing job training or getting a high school diploma, GED or equivalent. No 06/20/2023 Physical Activity Answer Date Recorded Number of minutes of exercise per week 0 06/20/2023 Substance Use Answer Date Recorded How [...] Plan of Treatment Not on file Insurance [facility] MEDICAID [id number] Advance Directives For more information, please contact: [phone] * Full Code (Latest Code Status on File) Date Activated Date Inactivated Comments 06/19/2023 11:00 PM 06/30/2023 2:30 PM Care Teams Head Of Biology Relationship Specialty Start Date End Date [facility], Provider Not In The System, [place] [address] PCP - General 06/20/23
--- OUTSIDE RECORDS SUMMARY | 2024-08-30 14:29 | XMS_ITS | Encounter Summary ---
Author Organization Healthcare Address [address] [place] [address] Care Team Providers Care Math And Science Division Chair Name Role Phone Joshua Urban MD Primary Care Provider [phone] Tri Singletary RADIO MAINTAINER Unavailable Unavailable Encounter Details Date Type Department Care Team (Late Contact Info) Description 12/02/2019 Orders Only External Location [address] [place] [address] Provider, External Social History Tobacco Use Types [...] Orthopaedic Surgery [facility] [address] [place] [address] Cornelio Burns MD [address] [place] [address] documented as of this encounter Procedures Procedure [...] documented as of this encounter Care Teams Math And Science Division Chair Relationship Specialty Start Date End Date Joshua Urban MD [address] [place] [address] PCP - General 06/27/20 Tri Singletary, [place] [address] Social Work Coordinator Delphi Programmer 10/19/17 05/05/24 documented as of this encounter
--- OUTSIDE RECORDS SUMMARY | 2024-08-30 14:29 | XMS_ITS | Encounter Summary ---
Author Organization Healthcare Address [address] [place] [address] Care Team Providers Care Framework Developer Name Role Phone Joshua Urban MD Primary Care Provider [phone] Encounter Details Date Type Department Care Team (Late st Contact Info) Description 08/24/2024 Patient Outreach [place] [facility] Medicine Specialties [address] [place] [address] aNdine Al Social History Tobacco Use Types Packs/Day Years [...] time in the past 12 m [facility], were you homeless or living in a [...] drink first t michelet in the morning (EYE-ROLL BUCKER) to steady your nerves or to get [...] encounter Miscellaneous Notes * Progress Notes - Nadine Al - 08/24/2024 4:48 PM EDT LTC team has been following pt since HCV RNA+ result on 10/19/17. Pt saw [facility] for HCV. Pt is now HCV RNA ND 09/25/22. LTC team closing HCV program due to pt being HCV RNA ND. documented in this encounter Plan of Treatment Upcoming Encounters Date Type Department Care Team (Late st Contact Info) Description 09/24/2024 2:30 PM EDT Office Visit [facility] [address] [place] [address] Cornelio Burns MD [address] [place] [address] documented as of this encounter Visit Diagnoses Not on filedocumented in this encounter Additional Health Concerns Assessment Noted Time A fall risk assessment has been complete d for the patient 07/16/2024 7:58 AM EDT A Body Mass Index follow-up plan has been documented for the patient 07/16/2024 8:28 AM EDT documented as of this encounter Care Teams Framework Developer Relationship Specialty Start Date End Date Joshua Urban MD [address] [place] [address] PCP - General 06/27/20 documented as of this encounter
--- OUTSIDE RECORDS SUMMARY | 2024-08-30 14:29 | XMS_ITS | Encounter Summary ---
Author Organization Healthcare Address [address] [place] [address] Care Team Providers Care Pump Station Operator Name Role Phone Joshua Urban MD Primary Care Provider [phone] Tri Singletary WEAVER WIRE LOOM Unavailable Unavailable Encounter Details Date Type Department Care Team (Late Contact Info) Description 06/12/2016 Orders Only External Location [address] [place] [id number] Provider, External Social History Tobacco Use Types [...] Description 09/24/2024 2:30 PM EDT Office Visit [facility] [address], [address] [place] [address] Cornelio Burns MD [address] [place] [address] documented as of this encounter Procedures Procedure [...] documented as of this encounter Care Teams Pump Station Operator Relationship Specialty Start Date End Date Joshua Urban MD [address] [place] [address] PCP - General 06/27/20 Tri Singletary, [place] [address] Mash Filter Cloth Changer Gate Mortiser Operator 10/19/17 05/05/24 documented as of this encounter
--- OUTSIDE RECORDS SUMMARY | 2024-08-30 14:29 | XMS_ITS | Clinical Summary ---
Author Organization [employer] ([place], [place], [place], [place]) Address [address] [place] [address] Care Team Providers Care Direct Marketing Specialist Name Role Phone [facility], Provider Not In The System [...] speak a language other than Bulgarian at ho co? No 06/20/2023 Do you want help with [...] 1961 Sigmoidoscopy 1961 Diabetic Eye Exam 1971 HIV Screening 1976 Hepatitis C Screening 1979 DTAP/TDAP/TD VACCINES (1 - Tdap) 1980 Pap Smear 1982 Breast Cancer Screening 2001 Shingles Vaccine (Zoster) (1 of 2) 2011 Pneumococcal 50+ years (2 of 2 - PCV) 12/25/201612/2015, 12/23/2014 Respiratory Syncytial Virus (RSV) Adult or (1 - Risk 60-74 years 1-dose series) 2021 Hemoglobin A1C 06/20/2023 COVID-19 VACCINE (1 - 2023- season) 2023 Medicare Initial AWV [id number] 02/16/2024 Tobacco Cessation Counseling and Screening (12+) 06/19/2024 06/20/2023 Influenza Vaccine (#1) 2024 Lipid Panel 10/01/2025 10/01/2022 Insurance [facility] AD[facility] MEDICAID [id number] Advance Directives For more information, please contact: [phone] * Full Code (Latest Code Status on File) Date Activated Date Inactivated Comments 06/19/2023 11:00 PM 06/30/2023 2:30 PM Care Teams Direct Marketing Specialist Relationship Specialty Start Date End Date [facility], Provider Not In The System, [place] [address] PCP - General 06/20/23
--- OUTSIDE RECORDS SUMMARY | 2024-08-30 14:29 | XMS_ITS | Encounter Summary ---
Author Organization Healthcare Address [address] [place] [address] Care Team Providers Care Bingo Cashier Name Role Phone Joshua Urban MD Primary Care Provider [phone] Reason for Visit * Reason Onset Date Comments HCN - Patient Message 06/12/2024 Encounter Details Date Type Department Care Team (Late st Contact Info) Description 06/12/2024 Telephone [facility] Orthopaedic Surgery & Sports Medicine [address], [address] [place] [address] Bing Byers N, CUSTOMER ASSISTANCE REPRESENTATIVE [address] [place] [address] HCN - Patient Message Social [...] any time in the past 12 m [facility], were you homeless or living in a [...] drink first t michelet in the morning (EYE-COMMERCIAL REAL ESTATE APPRAISER) to steady your nerves or to get rid of a hangover? 0 09/26/2022 CAGE Questionnaire Score 0 023 Utilities Answer Date Recorded In the past 12 months has th e Collarity, gas, oil, or water company threatened to [...] Call: Patient saw Bing today. Odilia with [facility] wants to know what the wound care is for this patient. Do they do dressing changes or leave open to air? Please advise. Best contact number: Other: Odilia with [facility] [phone] Optimal time of day to reach caller: ANYTIME Additional comments/information from caller: None Note: Please do not reply to this message. Follow-up communication and further actions as a result of this message need to be communicated with the patient directly, if the patient is not active onMyChart. If the patient is active on MyChart, they will receive notification of the communication/outcome via [employer]. documented in this encounter Plan of Treatment Upcoming Encounters Date Type Department Care Team (Late st Contact Info) Description 09/24/2024 2:30 PM EDT Office Visit [facility] Orthopaedic Surgery & Sports Medicine [address], [address] [place] [address] Cornelio Burns MD [address] [place] [address] documented as of this encounter Visit Diagnoses Not on filedocumented in this encounter Additional Health Concerns Assessment Noted Time A fall risk assessment has been complete d for the patient 06/12/2024 9:30 AM EDT A Body Mass Index follow-up plan has been documented for the patient 06/12/2024 10:46 AM EDT documented as of this encounter Care Teams Bingo Cashier Relationship Specialty Start Date End Date Joshua Urban MD [address] [place] [address] PCP - General 06/27/20 documented as of this encounter
--- OUTSIDE RECORDS SUMMARY | 2024-08-30 14:29 | XMS_ITS | Encounter Summary ---
Author Organization Healthcare Address [address] [place] [address] Care Team Providers Care Cold Roll Catcher Name Role Phone Joshua Urban MD Primary Care Provider [phone] Encounter Details Date Type Department Care Team [...] drink first t michelet in the morning (EYE-TV NEWS DIRECTOR) to steady your nerves or to get [...] Description 09/24/2024 2:30 PM EDT Office Visit [facility] Orthopaedic Surgery & Sports Medicine [address], 1[address] [place] [address] Cornelio Burns MD [address] [place] [address] documented as of this encounter Visit Diagnoses Not on filedocumented in this encounter Additional Health Concerns Assessment Noted Time A fall risk assessment has been complete d for the patient 07/16/2024 7:58 AM EDT A Body Mass Index follow-up plan has been documented for the patient 07/16/2024 8:28 AM EDT documented as of this encounter Care Teams Cold Roll Catcher Relationship Specialty Start Date End Date Joshua Urban MD [address] [place] [address] PCP - General 06/27/20 documented as of this encounter
--- OUTSIDE RECORDS SUMMARY | 2024-08-30 14:29 | XMS_ITS | Clinical Summary ---
Author Organization [facility] Address [address] [place] [address] Care Team Providers Care Pipeliner Name Role Phone Joshua Urabn MD Primary Care Provider [phone] Allergies Active Allergy Reactions Criticality Noted Date [...] for sleep. 15 tablet 06/02/19 25 Active Active Problems Problem Noted Date Diagnosed Date Overweight (BMI 25.0-29.9) 06/01/2024 Overview (06/01/2024): BMI 28.37 Complicates care Current use of correction anticoagulation 025 Overview (05/27/2024): Resume home eliquis [...] SGT ICU Tertiary, ITSS, AUDIT-C completed 05/24 Wfpoc-dg-atiobpq kidney injury 05/23/2024 Overview (05/30/2024): Cr 2.92 [...] Encounters Date Type Department Care Team Description 08/24/2024 Patient Outreach [facility] Medicine Specialties [address], [address] [place] [address] Jm Al 07/16/2024 8:40 AM EDT Office Visit [facility] Orthopaedic Surgery & Sports Medicine [address], [address] [place] [address] Cornelio Burns MD Closed fracture of hip, unspecified laterality, sequela (Primary Dx) 07/16/2024 7:34 AM EDT - 07/16/2024 11:59 PM EDT Hospital Encounter [facility] Radiology [address] [place] [address] Closed fracture of hip, unspecified laterality, sequela Discharge Disposition: Home or Self Care 07/16/2024 Travel 06/12/2024 9:30 AM EDT Office Visit [facility]opa[facility] Surgery [facility] Medicine [address] [place] [address] Bing Byers, MEDICARE SALES REPRESENTATIVE Closed fracture of hip, unspecified laterality, sequela (Primary Dx) 06/12/2024 Telephone [facility] Orthopaedic Surgery [facility] Sports Medicine [address] [place] [address] Bing Byers, MEDICARE SALES REPRESENTATIVE HCN - Patient Message 06/12/2024 Travel 05/23/2024 6:14 AM EDT - 06/01/2024 3:23 PM EDT Hospital Encounter [facility] [address] [place] [address] Geoff White MD Griffen, Margaret M, MD Doud, MD Julianne Lacey Brittany N, MD Closed fracture of left hip, initial encounter ([facility]) (Primary Dx); COPD exacerbation ([facility]); Hyperkalemia; RAGHAV (acute kidney injury) ([facility]) Discharge Disposition: Group Home Facility from Last 3 Months Immunizations Immunization Administration Dates Next Due Hep B, adult 12/04/2018,07/12/2018,05/30/2018 Influenza Vaccine, Quadrival ent, Adjuvanted 11/26/2022 Influenza, Unspecified 12/01/2016 Influenza, high-dose, quadrivalent 04/05/2024 Influenza, injectable, quadr ivalent, preservative free 11/26/2022,03/06/2021,06/04/2017,12/20 Pneumococcal Polysaccharide PPV23 12/26/2015,10/2014 Family History Medical History Relation Name Comments Conversions - Other Cousin alpha-1- antitrypsin deficiency Conversions - Other Father's Brother alph t-1-kielqxmjytd deficiency Conversions - Other Father's Sister alpha [...] any time in the past 12 m [facility], were you homeless or living in a [facility] (including now)? No 05/24/2024 CAGE ASSESSMENT Answer [...] drink first t michelet in the morning (EYE-SOLAR DESIGNER) to steady your nerves or to get [...] Description 09/24/2024 2:30 PM EDT Office Visit [facility]opa[facility] Surgery [facility] Medicine [address], [address] [place] [address] Cornelio Burns MD [address] [place] [address] Health Maintenance Due Date Last [...] - Risk 60-74 years 1-dose series) 2021 [id number] Vaccine (1 - 2023- season) 2023 FOBT 06/22/2024 06/23/2023 [facility]-Colorectal Cancer Screening 06/22/2024 [facility]-Diabetes: Hemoglobin A1C 08/22/202410/2024, 10/01/2022, 12/03/2019, Additional history exists [facility]-Influenza Vaccine (#1) 10/15/202404/05, 11/26/2022, 11/26/2022, Additional history exists [facility]- SDOH Screenings 11/23/2024 [facility]-Adult SDOH Screenings 11/23/2024 05/24/2024 [facility]-HIV Screening Completed 05/23/2024, 09/25/2022 [facility]-Obesity Intervention [...] this topic Medical Devices Implanted Type Area Draw Press Operator Device Identifier Shelf Expiration Date Model / Serial / Lot Screw 10.5x85mm [employer] Ti Lag [employer] Med - Sna - [id number] Implanted:Qty: 1 on 05/24/2024 by Cornelio Burns MD at [facility] Screw Left: Femur [employer]-[id number] 05/24/2025 [id number] / NA / NA Screw 5x35mm Ti [employer] Lonnie Locking [employer] - Sna - [id number] Implanted:Qty: 1 on 05/24/2024 by Cornelio Bruns MD at [facility] Screw Left: Femur [employer]-[id number] 05/24/2025 [id number] / NA / NA Ball-Tip Guidewire [id number] - [id number] Implanted:Qty: 1 on 05/24/2024 by Cornelio Burns MD at [facility] Left: Femur [employer]-[id number] 04/19/2031 [id number] / / Nail Ti Trochanteric [id number] 125deg Lt - [id number] Implanted:Qty: 1 on 05/24/2024 by Cornelio Burns MD at [facility] Left: Femur [employer]-[id number] 04/19/2034 [id number] / / Procedures Procedure Name [...] PAP THERAPY Routine 05/31/2024 3:00 AM EDT ED HIV 1/2 ANTIBODY/ANTIGEN SCREEN WITH REFLEX TO HIV I/II DIFFERENTIATION STAT 05/23/2024 6:52 AM EDT HEMOGLOBIN A1C STAT Add-on 05/23/2024 6:[address] CHEST WO IV CONTRAST [...] MD on 07/16/2024 8:51 AM us Bing N Zeeshan MEDICARE SALES REPRESENTATIVE IMG XR PROCEDURES Final Re sult * (ABNORMAL) POCT glucose meter (06/01/2024 11:41 AM EDT) Only the most recent of6 resultswithin the time period is included. POCT Glucose 194(H) 74 - 99 mg/dL 06/01/2024 11:43 AM EDT [facility] Comment:Accuracy of a glucos e result [...] Comment 06/01/2024 11:43 AM EDT [facility] Children[facility] Author ID Dayana Costa 025 11:43 AM EDT [facility] Device ID [id number] 06/01/2024 11:43 AM EDT [facility] Specimen Type POC Capillary 06/01/2024 11:43 AM EDT [facility] Blood Capillary blood specimen / Unknown 06/01/2024 11:41 AM EDT 06/01/2024 11:43 AM EDT Ashli Whitaker MD LAB POINT OF CARE TEST DOCKED DEVICE UNSOLICITED RESULTS Final Result Performing Organization Address City/State/[facility] de Phone Number [facility] [address] [place] [address] * (ABNORMAL) CBC W/O Differential (05/31/2024 4:43 AM EDT) WBC Count 14.56(H) 3.70 - 10.30 10*3/uL LAB HEMATOLOGY METHOD 05/31/2024 5:11 AM EDT [facility] RBC Count 3.93 3.90 - 5.20 10*6/uL LAB HEMATOLOGY METHOD 05/31/2024 5:11 AM EDT [facility] HGB 9.8(L) 11.2 - 15.7 g/dL LAB HEMATOLOGY METHOD 05/31/2024 5:11 AM EDT [facility] HCT 32.6(L) 34.0 - 45.0 % LAB HEMATOLOGY METHOD 05/31/2024 5:11 AM EDT [facility] Platelet Count 341 155 - 369 10*3/uL LAB HEMATOLOGY METHOD 05/31/2024 5:11 AM EDT [facility] MCV 83 79 - 98 fL LAB HEMATOLOGY METHOD 05/31/2024 5:11 AM EDT [facility] MCH 24.9(L) 26.0 - 32.0 pg LAB HEMATOLOGY METHOD 05/31/2024 5:11 AM EDT [facility] MCHC 30.1(L) 30.7 - 35.5 g/dL LAB HEMATOLOGY METHOD 05/31/2024 5:11 AM EDT [facility] RDW 17.3(H) 11.5 - 14.5 % LAB HEMATOLOGY METHOD 05/31/2024 5:11 AM EDT [facility] MPV 10.1 8.8 - 12.5 fL LAB HEMATOLOGY METHOD 05/31/2024 5:11 AM EDT [facility] nRBC 0.0 <=0.0 per 100 WBCs LAB HEMATOLOGY METHOD 05/31/2024 5:11 AM EDT [facility] Blood Venous blood specimen / Unknown Venipuncture / Unknown 05/31/2024 4:43 AM EDT 05/31/2024 4:59 AM EDT us Lauren HOLLY LAB BLOOD ORDERABLES Final Resu lt [facility] [address] [place] [address] * (ABNORMAL) Basic metabolic panel (05/31/2024 4:43 AM EDT) Glucose, Plasma 142(H) 74 - 99 mg/dL 05/31/2024 6:01 AM EDT [facility] BUN, Plasma 95(H) 8 - 23 mg/dL 05/31/2024 6:01 AM EDT [facility] Creatinine, Plasma 1.99(H) 0.60 - 1.10 mg/dL 05/31/2024 6:01 AM EDT [facility] BUN/Creatinine Ratio 48 05/31/2024 6:01 AM EDT [facility] Sodium, Plasma 139 136 - 145 mmol/L 05/31/2024 6:01 AM EDT [facility] Potassium, Plasma 5.2(H) 3.6 - 4.9 mmol/L 05/31/2024 6:01 AM EDT [facility] Chloride, Plasma 105 97 - 107 mmol/L 05/31/2024 6:01 AM EDT [facility] CO2, Plasma 22 22 - 29 mmol/L 05/31/2024 6:01 AM EDT [facility] Anion Gap 12 6 - 16 mmol/L 05/31/2024 6:01 AM EDT [facility] Total Calcium, Plasma 8.9 8.9 - 10.2 mg/dL 05/31/2024 6:01 AM EDT [facility] eGFRcr 27.8 mL/min/1.7 3m*2 05/31/2024 6:01 AM EDT [facility] Comment:Reported eGFRcr in m L/min/1.73m2 is based the CKD-EPI 2020 equation that does not use a race coefficient. Blood Venous blood specimen / Unknown Venipuncture / Unknown 05/31/2024 4:43 AM EDT 05/31/2024 4:57 AM EDT us Lauren HOLLY LAB BLOOD ORDERABLES Final Resu lt Performing Organization Address City/[facility]/ZIP Co de Phone Number [facility] [address] [place] [address] * ED HIV 1/2 Antibody/Antigen Screen w/Reflex to HIV 1/2 Differentiation (05/23/2024 6:52 AM EDT) Pathologist [facility] HIV 1 & 2 Antibody/Antigen Screen Non Reactive Non Reactive 05/23/2024 7:41 AM EDT [facility] Comment:Screening for HIV 1 & 2 antibodies, and P24 antigen is NONREACTIVE. No confirmatory testing is required. Blood Venous blood specimen / Unknown Venipuncture / Unknown 05/23/2024 6:52 AM EDT 05/23/2024 7:01 AM EDT us Cornelio Burns MD LAB BLOOD ORDERABLES Final Re sult [facility] [address] [place] [address] * (ABNORMAL) Hemoglobin A1c (05/23/2024 6:52 AM EDT) Hemoglobin A1c 7.8(H) <5.7 % 05/23/2024 5:13 PM EDT [facility] Blood Venous blood specimen / Unknown Venipuncture / Unknown 05/23/2024 6:52 AM EDT 05/23/2024 6:54 AM EDT Narrative [facility] - 05/23/2024 5:13 PM EDT HA1C Interpretive Data: Diagnosis of Diabetes: Diabetic > or = 6.5% Pre-diabetic 5.7 to 6.4% Non-diabetic < or = 5.6% Glycemic Targets for Type I and Type II Diabetics: Non- Adults <7.0% Adults <6.0% Children and Adolescents <7.5% Source: [place] [employer]. Standards of medical care in diabetes,2017. Diabetes Care.2017:40 (suppl 1):S1-S135. us Bing Conlye Zeeshan MEDICARE SALES REPRESENTATIVE LAB BLOOD ORDERABLES Final Result [facility] [address] [place] [address] * CT Chest wo IV Contrast (12/02/2019 [...] Pelvis WO IVCON Dec 02 2019 - :12; CLINICAL INDICATION: Fall. TECHNIQUE: Imaging of the [...] 9:34 AM 05/24/2024 10:01 AM Care Teams Pipeliner Relationship Specialty Start Date End Date Joshua Urban MD [address] [id number] PCP - General 06/27/20
--- OUTSIDE RECORDS SUMMARY | 2024-08-30 14:30 | XMS_ITS ---
Author Organization [facility] Care Team Providers Care Cabin Furnishings Installer Name Role Phone Florecita Killian (Felicity) Unavailable Unavail able Moe Escoto Unavailable Unavailable Allergies and adverse reactions Code CodeSystem Substance Reaction Severity StartDate Concern Status 83937 RXNORM Trimethoprim Urticaria (code- 960834727, SNOMED CT) Mild 01/24/2024 active Tramadol Vomiting (code- 403135324, SNOMED CT) Mild 01/24/2024 active 87189 RXNORM Terbutaline Unknown 01/24/2024 active 18815 RXNORM Sulfamethoxazole Urticaria (code- 517409782, SNOMED CT) Mild 01/24/[address] Sulfa Antibiotics Urticaria (code- 316218096, SNOMED CT) Mild 01/24/2024 active 91891 RXNORM Salmeterol Unknown 01/24/2024 active 267572 RXNORM Pregabalin Hallucinations (code- 6193406, SNOMED CT) Mild 01/24/[address] Penicillins Eruption (code- 872112910, SNOMED CT) Mild 01/24/2024 active 7258 RXNORM Naproxen Itching (code- 835820524, SNOMED CT) Mild 01/24/2024 active 6845 RXNORM Methocarbamol Unknown 01/24/2024 active 72138 RXNORM Fluticasone Unknown 01/24/2024 active 4053 RXNORM Erythromycin Eruption (code- 105382235, SNOMED CT) Mild 01/24/2024 active 29691 RXNORM DULoxetine Hallucinations (code- 6867026, SNOMED CT) Mild 01/24/2024 active 2670 RXNORM Codeine Unknown 01/24/2024 active 2556 RXNORM Citalopram Peeling of skin (code- 105862095, SNOMED CT) Mild 01/24/2024 active 655359 RXNORM Celecoxib Vomiting (code- 551097768, SNOMED CT) Mild 01/24/2024 active 3498 RXNORM Benadryl Mild 01/24/2024 active 1191 RXNORM Aspirin Unknown 01/24/2024 active Care Team Name Role Address Phone Organization Dates Moe Escoto PCP [address], [place], [address], [facility] (Office): [facility] 02/02/2024 - present Florecita (Felicity) [place], [address], [facility] (Office): : [facility] 02/02/2024 - present Goals Section Goals Description Status Target Date Cause of New Onset Behavior Will Be Evaluated / Determined Active 10/15/2024 Jania will be free from s/ sx of complications of cardiac problems through the review date. Active 10/15/2024 Jania will have no complic ations r/t tobacco products through the review date Active 10/15/2024 Jania will have no complic ations related to SOB though the review date. Active 10/15/2024 Jania will have no complic ations related to diabetes through the review date. Active 10/15/2024 Jania will have no complic ations related to hyperkalemia through next review Active 10/15/2024 Jania will have no drug related side effects t hrough next review Active 10/15/2024 Jania will have no fall related injury through next review date Active 10/15/2024 Jania will improve current level of function with ADLS through the review date. Active 10/15/2024 Jania will remain free of complications throug h the review date Active 10/15/2024 Jania will utilize oxygen as ordered Active 10/15/2024 Jania' needs will be met at [facility] Active 10/15/2024 Goal is slow, slight weight loss, 1-2#/month, closer to IBWR, with an average po of 50% or greater. Fasting blood sugar of 165 or less; random blood sugar of 185 or less. Free from s/s of dehydration. : Free from chewing problems. Active 11/14/2024 Florencia will have no s/sx of loose stools through re view date. Active 10/15/2024 Florencia's redness to ABD folds a nd under bilateral breast will be resolved by target date. Active 10/15/2024 PT/OT to eval and treat as indicated Active 10/15/2024 Resident Will Have Normal Urinary Elimination Pa ttern Active 10/15/2024 Resident Will Report Satisfactory Pain Control A ctive 10/15/2024 Resident and Family's wishes will be honored. Ac tive 10/15/2024 Functional Status Code Name Recorded Time Value Entered By 1 step (curb) 08/29/2024 Not assessed kbrooks 12 steps 08/29/2024 Not assessed kbrooks 4 steps 08/29/2024 Not assessed kbrooks Bathing 08/29/2024 Not assessed kbrooks Car transfer 08/29/2024 Not assessed kbrooks Chair/nro-lx-weiaj transfer 08/29/2024 Independent kbrooks Does the resident use a wheelchair and/or scooter? 08/29/2024 Yes (qualifier value) kbrooks Eating 08/29/2024 Setup or clean-up assistance kbrooks Indicate the type of wheelchair or scooter used 08/29/2024 Independent kbrooks Indicate the type of wheelchair or scooter used 08/29/2024 Manual wheelchair (physical object) kbrooks Lower body dressing 08/29/2024 Independent kbrooks Lying to sitting on side of bed 08/29/2024 Independent kbrooks Oral hygiene 08/29/2024 Not assessed kbrooks Personal hygiene 08/29/2024 Independent kbrooks Picking up object 08/29/2024 Independent kbrooks Putting on/taking off footwear 08/29/2024 Independen t kbrooks Roll left and right 08/29/2024 Independent kbrooks Shower/bathe self 08/29/2024 Not assessed kbrooks Sit to lying 08/29/2024 Independent kbrooks Sit to stand 08/29/2024 Independent kbrooks Toilet transfer 08/29/2024 Independent kbrooks Toileting hygiene 08/29/2024 Setup or clean-up malcolm gutierrez kbrooks Upper body dressing 08/29/2024 Independent kbrooks Walk 10 feet 08/29/2024 Dependent kbrooks Walk 150 feet 08/29/2024 Not assessed kbrooks Walk 50 feet 08/29/2024 Not assessed kbrooks Walking 10 feet on uneven surfaces 08/29/2024 Not assessed kbrooks Wheel 150 feet 08/29/2024 Independent kbrooks Wheel 50 feet with two turns 08/29/2024 Independent kbrooks Immunizations Immunization Status Vaccine Details Vaccine Code CodeSystem Date Notes Influenza completed Influenza, adjuvanted, inactivated, quadrivalent, injectable, preservative free 205 CVX created date: 01/31/2024 administer ed date: 11/26/2022 Hepatitis B completed hepatitis B vaccine, adult dosage 43 CVX created date: 01/31/2024 administer ed date: 12/04/2018 Hepatitis B completed hepatitis B vaccine, adult dosage 43 CVX created date: 01/31/2024 administer ed date: 07/12/2018 Hepatitis B completed hepatitis B vaccine, adult dosage 43 CVX created date: 01/31/2024 administer ed date: 05/30/2018 TB 1 Step Mantoux (PPD) completed tuberculin skin test; unspecified formulation lotNumber: [id number] expiry: 06/14/2026 Mfg: sanofi pasteur limited Given 0.1 ml Left Forearm intradermally 98 CVX created date: 01/25/2024 consent date: 01/24/2024 administer ed date: 01/25/2024 Educated by on 04/04/2024 TB 2 Step Mantoux Skin Test completed tuberculin skin test; unspecified formulation lotNumber: [id number] expiry: 07/14/2026 Mfg: sanofi pasteur Given 0.1 ml Right Forearm intradermally Step 1 of Multi-step 98 CVX created date: 01/31/2024 consent date: 01/31/2024 administer ed date: 01/31/2024 Educated by on 04/04/2024 Influenza High Dose completed Influenza, high-dose, split virus, quadrivalent, injectable, preservative free lotNumber: [id number] expiry: 07/15/2025 Mfg: Fluzone Given 0.5 ml Left Deltoid intramuscularly 197 CVX created date: 04/05/2024 consent date: 04/05/2024 administer ed date: 04/05/2024 Educated by on 04/05/2024 PPV23 completed pneumococcal polysaccharide vaccine, 23 valent 33 CVX created date: 01/31/2024 administer ed date: 12/26/2015 PPV23 completed pneumococcal polysaccharide vaccine, 23 valent 33 CVX created date: 01/31/2024 administer ed date: 12/23/2014 Moderna Spikevax 12+ (COVID) 23-24 cancelled SARS-COV-2 (COVID-19) vaccine, mRNA, spike protein, LNP, preservative free, 100 mcg/0.5mL dose or 50 mcg/0.25mL dose 207 CVX created date: 02/01/2024 consent date: 01/30/2024 Educated by on 02/01/2024 RSV Vaccine cancelled Respiratory syncytial virus (RSV), vaccine, bivalent, protein subunit RSV prefusion F, diluent reconstituted, 0.5 mL, preservative free 305 CVX created date: 03/07/2024 consent date: 02/20/2024 Educated by on 03/06/2024 resident declines Medications Section Medication Name Status Code CodeSystem Dose Route Frequency Admin Type Sig Text Start Date End Date Apixaban Oral Tablet 5 MG active 534308 5 RXNORM 1 tablet Oral every morning and at bedtime Routine Give 1 tablet by mouth every mornin g and at bedtim e relate d to PAROXY SMAL ATRIAL FIBRIL LATION (I48.0 ) 2024 - Atorvastatin Calcium Oral Tablet 10 MG active 285695 RXNORM 1 tablet Oral at bedtime Routine Give 1 tablet by mouth at bedtim e relate d to HYPERL IPIDEM IA, UNSPEC IFIED (E78.5 ) 2024 - Bumetanide Oral Tablet 1 MG active 809308 RXNORM 1 tablet Oral one time a day Routine Give 1 tablet by mouth one time a day relate d to ESSENT IAL (PRIMA RY) HYPERT ENSION (I10); UNSPEC IFIED SYSTOL IC (JEIMYLEE STIVE) HEART FAILUR E (I50.2 0) 2024 - Abilify Oral Tablet 10 MG active 662523 RXNORM 1 tablet Oral one time a day Routine Give 1 tablet by mouth one time a day relate d to MAJOR DEPRES SIVE DISORD ER, SINGLE EPISOD E, UNSPEC IFIED (F32.9 ) 2024 - guaiFENesin ER Oral Tablet Extended Release 12 Hour 600 MG active 080279 RXNORM 1 tablet Oral every morning and at bedtime Routine Give 1 tablet by mouth every mornin g and at bedtim e for conges tion 2024 - Metoprolol Tartrate Oral Tablet 37.5 MG active 908516 7 RXNORM 2 tablet Oral every morning and at bedtime Routine Give 2 tablet by mouth every mornin g and at bedtim e relate d to ESSENT IAL (PRIMA RY) HYPERT ENSION (I10) 2024 - Isosorbide Mononitrate ER Oral Tablet Extended Release 24 Hour 30 MG active 407173 RXNORM 1 tablet Oral one time a day Routine Give 1 tablet by mouth one time a day relate d to ESSENT IAL (PRIMA RY) HYPERT ENSION (I10) 2024 - Ipratropium-A lbuterol Inhalation Solution 0.5-2.5 (3) MG/3ML aborted 896072 2 RXNORM 1 applic ator Inhalat ion four times a day Routine 1 applic ator inhale orally four times a day relate d to CHRONI C OBSTRU CTIVE PULMON ELIZABETH DISEAS E, UNSPEC IFIED (J44.9 ) 08/29 busPIRone HCl Oral Tablet 10 MG active 167373 RXNORM 1 tablet Oral every morning and at bedtime Routine Give 1 tablet by mouth every mornin g and at bedtim e relate d to ANXIET Y DISORD ER, UNSPEC IFIED (F41.9 ) 2024 - Pepcid Oral Tablet 20 MG active 236655 RXNORM 1 tablet Oral at bedtime Routine Give 1 tablet by mouth at bedtim e for GERD 2024 - Polyethylene Glycol Powder aborted 17 gram Oral every morning and at bedtime Routine Give 17 gram by mouth every mornin g and at bedtim e for while receiv ing pain medica tion 08/28 Ergocalcifero l Oral Capsule 1.25 MG (46583 UT) active 275863 0 RXNORM 1 capsul e Oral one time a day Routine Give 1 capsul e by mouth one time a day every Mon for supple ment 2024 - Farxiga Oral Tablet 5 MG active 033262 1 RXNORM 1 tablet Oral one time a day Routine Give 1 tablet by mouth one time a day relate d to CHRONI C KIDNEY DISEAS E, UNSPEC IFIED (N18.9 ) 2024 - Sodium Zirconium Cyclosilicate Oral Packet 5 GM active 945190 3 RXNORM 1 packet Oral every morning and at bedtime Routine Give 1 packet by mouth every mornin g and at bedtim e for supple ment 2024 - Senna-Docusat e Sodium Oral Tablet 8.6-50 MG aborted 2 tablet Oral every morning and at bedtime Routine Give 2 tablet by mouth every mornin g and at bedtim e for bowel care 08/28 Naloxone HCl Nasal Liquid 4 MG/0.1ML active 126408 9 RXNORM 1 spray in nostril as needed PRN 1 spray in nostri l every 5 minute s as needed for 1 spray in nostri l for no/slo w breath ing/ca nt arouse . call 911 repeat in other nostri l if sx contin ue 2024 - Gabapentin Oral Capsule 400 MG active 211250 RXNORM 1 capsul e Oral three times a day Routine Give 1 capsul e by mouth three times a day relate d to TYPE 2 DIABET ES BINIT US WITH DIABET IC NEPHRO DARYL (E11.2 1) 2024 - oxyCODONE-Walt taminophen Oral Tablet 5-325 MG active 217312 1 RXNORM 1 tablet Oral four times a day Routine Give 1 tablet by mouth four times a day for pain 2024 - Acetaminophen Tablet 500 MG active 095767 RXNORM 2 tablet Oral as needed PRN Give 2 tablet by mouth every 6 hours as needed for Elevat ed Temper ature 2.5 degree s above baseli ne T give two tablet s every 6 hours as needed for temp 2.5 degree s above baseli ne 2024 - Acetaminophen Tablet 500 MG active 620391 RXNORM 2 tablet Oral as needed PRN Give 2 tablet by mouth every 6 hours as needed for Pain Give 2 tablet s every 6 hours as needed for pain 2024 - Trelegy Ellipta Inhalation Aerosol Powder Breath Activated 200-62.5-25 MCG/ACT active 804340 1 RXNORM 1 puff Inhalat ion one time a day Routine 1 puff inhale orally one time a day relate d to CHRONI C OBSTRU CTIVE PULMON ELIZABETH DISEAS E, UNSPEC IFIED (J44.9 ) 2024 - Lidocaine External Patch 5 % active 637284 1 RXNORM n/a n/a Topical in the morning Routine Apply to lower back topica lly in the [facility] for pain 2024 - Melatonin Oral Tablet 5 MG active 352221 RXNORM 1 tablet Oral at bedtime Routine Give 1 tablet by mouth at bedtim e for sleep 2024 - Sertraline HCl Oral Tablet 100 MG active 415762 RXNORM 1 tablet Oral at bedtime Routine Give 1 tablet by mouth at bedtim e relate d to MAJOR DEPRES SIVE DISORD ER, SINGLE EPISOD E, UNSPEC IFIED (F32.9 ) give along with a 50mg tablet to equal 150mg total 2024 - Sertraline HCl Oral Tablet 50 MG active 685052 RXNORM 1 tablet Oral at bedtime Routine Give 1 tablet by mouth at bedtim e relate d to MAJOR DEPRES SIVE DISORD ER, SINGLE EPISOD E, UNSPEC IFIED (F32.9 );ANXI ETY DISORD ER, UNSPEC IFIED (F41.9 ) give along with a 100mg tablet to equal 150mg total 2024 - Vitamin D Oral Capsule 50 MCG (1999 UT) active 1 capsul e Oral in the morning Routine Give 1 capsul e by mouth in the [facility] for Supple ment 2024 - Insulin Glargine Subcutaneous Solution active 16 unit Subcuta neous two times a day Routine Inject 16 unit subcut aneous ly two times a day relate d to TYPE 2 DIABET ES MELLIT US WITH DIABET IC NEPHRO DARYL (E11.2 1) 2024 - Insulin Aspart PenFill Subcutaneous Solution Cartridge 100 UNIT/ML active 6 unit Subcuta neous before meals Routine Inject 6 unit subcut aneous ly before meals relate d to TYPE 2 DIABET ES MELLIT US WITH DIABET IC NEPHRO DRAYL (E11.2 1) AND Inject as per slidin g scale: if 151 - 200 = 2 units; 201 - 250 = 4 units; 251 - 300 = 6 units; 301 - 350 = 8 units; 351 - 400 = 10 units ; 401 - 450 = 12 units And call MD, subcut aneous ly before meals and at bedtim e relate d to TYPE 2 DIABET ES MELLIT US WITHOU T COMPLI CATION S (E11.9 ) 2024 - n/a n/a Subcuta neous before meals and at bedtime Routine Inject 6 unit subcut aneous ly before meals relate d to TYPE 2 DIABET ES MELLIT US WITH DIABET IC NEPHRO DARYL (E11.2 1) AND Inject as per slidin g scale: if 151 - 200 = 2 units; 201 - 250 = 4 units; 251 - 300 = 6 units; 301 - 350 = 8 units; 351 - 400 = 10 units ; 401 - 450 = 12 units And call MD, subcut aneous ly before meals and at bedtim e relate d to TYPE 2 DIABET ES BINIT US WITHOU T COMPLI CATION S (E11.9 ) 2024 - Trintellix Oral Tablet 10 MG active 398285 6 RXNORM 1 tablet Oral at bedtime Routine Give 1 tablet by mouth at bedtim e relate d to MAJOR DEPRES SIVE DISORD ER, SINGLE EPISOD E, UNSPEC IFIED (F32.9 ) 2024 - Eucerin Plus External Lotion 5-5 % active n/a n/a Topical every day and crop ranch hand Routine Apply to Both Hands topica lly every day and crop ranch hand for thin frail skin May keep at bedsid e for reside nt to apply 2024 - predniSONE Oral Tablet 20 MG complete d 920172 RXNORM 2 tablet Oral one time a day Routine Give 2 tablet by mouth one time a day for PNA for 5 Days 08/09 Levaquin Oral Tablet 750 MG complete d 1 tablet Oral one time a day Routine Give 1 tablet by mouth one time a day for PNA for 7 Days 08/10 Polyethylene Glycol Powder active 17 gram Oral one time a day Routine Give 17 gram by mouth one time a day for while receiv ing pain medica tion 2024 - Lidocaine External Patch 5 % active 165617 1 RXNORM n/a n/a Topical one time a day Routine Apply to left anteri or thigh topica lly one time a day for remove after 12 hours 2024 - Senna-Docusat e Sodium Oral Tablet 8.6-50 MG active 2 tablet Oral one time a day Routine Give 2 tablet by mouth one time a day for bowel care 2024 - Ipratropium-A lbuterol Inhalation Solution 0.5-2.5 (3) MG/3ML active 439561 2 RXNORM 1 applic ator Inhalat ion three times a day Routine 1 applic ator inhale orally three times a day relate d to CHRONI C OBSTRU CTIVE PULMON ELIZABETH DISEAS E, UNSPEC IFIED (J44.9 ) 2024 - Mental Status Section Date Assessment Total Score Description 07/30/2024 BIMS 15 cognitively int act CAM 0 No delirium ind icated PHQ-9 00 06/07/2024 BIMS 14 cognitively int act CAM 0 No delirium ind icated PHQ-9 00 Problems Problem # Description Date of onset Resolved Date Code CodeSystem Concern Status 1 ASTHMA [address] active 2 COGNITIVE COMMUNICATION DEFICIT [address] active 3 DISPLACED INTERTROCHANTERIC FRACTURE OF LEFT FEMUR, SUBSEQUENT ENCOUNTER FOR CLOSED FRACTURE WITH ROUTINE HEALING [address] active [address]AL[address] active 5 TYPE 2 DIABETES MELLITUS WITH DIABETIC NEPHROPATHY [address] active 6 IRRITABLE BOWEL SYNDROME WITH CONSTIPATION [address] active 7 CAUDA EQUINA SYNDROME [address] active 8 CHRONIC VIRAL HEPATITIS C [address] active 9 ADULT FAILURE TO THRIVE [address] active 10 ANXIETY DISORDER, UNSPECIFIED [address] active 11 CHRONIC KIDNEY DISEASE, UNSPECIFIED [address] active 12 CHRONIC OBSTRUCTIVE PULMONARY DISEASE, UNSPECIFIED [address] active 13 CHRONIC PAIN SYNDROME [address] active 14 CHRONIC RESPIRATORY FAILURE, UNSPECIFIED WHETHER WITH HYPOXIA OR HYPERCAPNIA [address] active 15 ESSENTIAL (PRIMARY) HYPERTENSION [address] active 16 HYPERLIPIDEMIA, UNSPECIFIED [address] active 17 MAJOR DEPRESSIVE DISORDER, SINGLE EPISODE, UNSPECIFIED [address] active 18 MUSCLE WEAKNESS (GENERALIZED) [address] active 19 OBESITY, UNSPECIFIED [address] active 20 PAROXYSMAL ATRIAL FIBRILLATION [address] active 21 SLEEP APNEA, UNSPECIFIED [address] active 22 SUICIDAL IDEATIONS [address] active 23 TYPE 2 DIABETES MELLITUS WITHOUT COMPLICATIONS [address] active 24 UNSPECIFIED SYSTOLIC (CONGESTIVE) HEART FAILURE [address] active 25 UNSPECIFIED VIRAL HEPATITIS B WITHOUT HEPATIC COMA [address] active 26 UNSTEADINESS ON FEET [address] active Reason for Referral No Reasons for Referral Entered Diagnostic Results Result Code Code System Date Test Result Interpretation Reference Range Status Notes [id number] LOINC 08/06 CMP-COMPREHENS ELLIOT METABOLIC PNL / GLYCO-HGBA1C / CBC W/DIFF Completed Result for: MAGGIE CLINE ( 1960, F) 2345-7 LOINC 08/06 GLUCOSE Value: 104 Units: mg/dL High Final GLUCOSE, FASTING 65-99 mg/dL GLUCOSE, NON-FASTI NG 65-125 mg/dL 2951-2 LOINC 08/06 SODIUM Value: 145 Units: mEq/L Normal 136-145 Final 2822- [facility] 08/06 POTASSIUM Value: 4.0 Units: mEq/L Normal 3.5-5.3 Final [facility] 08/06 CHLORIDE Value: 101 Units: mEq/L Normal 96-110 Final 2027-10 [facility] 08/06 CARBON DIOXIDE (CO2) Value: 31 Units: mEq/L Normal 21-33 Final 3094-0 [facility] 08/06 BUN (UREA NITROGEN) Value: 57 Units: mg/dL High 7-25 Final 216-0 [facility] 08/06 CREATININE Value: 1.7 Units: mg/dL High 0.6-1.3 Final 3096-04 [facility] 08/06 BUN/CREATININE RATIO Value: 34 Units: High 6-25 Final 77931-2 [facility] 08/06 GFR- Value: 37 Units: mL/min/ {1.73_m 2} Low >60 Final 11682-5 [facility] 08/06 YAM-TBR-SPKNBJ N FAROESE Value: 30 Units: mL/min/ {1.73_m 2} Low >60 Final Stage of CKD eGFR (mL/min/1 .73 square meters) Stage 1 >/= 90 or > 90 Stage 2 60 - 89 Stage 3 30 - 59 Stage 4 15 - 29 Stage 5 </= 14 or < 15 GFR is reliable for adults 17 to 69 years with stable kidney function. 88880-2 [facility] 08/06 CALCIUM Value: 8.6 Units: mg/dL Normal 8.4-10.2 Final 2884-2 [facility] 08/06 PROTEIN, TOTAL Value: 7.0 Units: g/dL Normal 6.0-8.3 Final 1750- [facility] 08/06 ALBUMIN Value: 2.9 Units: g/dL Low 3.5-5.5 Final 0 [facility] 08/06 A/G RATIO Value: 0.7 Units: Low 0.8-2.0 Final 68-6 [facility] 08/06 ALKALINE PHOS Value: 221 Units: [IU]/L High 34-136 Final 192-8 [facility] 08/06 AST (SGOT) Value: 29 Units: [IU]/L Normal 4-40 Final 1742-6 [facility] 08/06 ALT (SGPT) Value: 18 Units: [IU]/L Normal 4-55 Final 1975-2 [facility] 08/06 BILIRUBIN, TOTAL Value: 0.2 Units: mg/dL Normal 0.2-1.2 Final 4548-4 [facility] 08/06 GLYCOHEMOGLOBI N-HGBA1C Value: 8.6 Units: % High 4.1-6.1 Final 46471-6 [facility] 08/06 eAG (Mean Glucose) Value: 200 Units: mg/dL High 70-120 Final 6690-2 [facility] 08/06 WBC Value: 11.9 Units: K/cmm High 4.5-10.8 Final 789-8 [facility] 08/06 RBC Value: 4.17 Units: 10*3/mm 3 Normal 3.90-5.40 Final 718-7 [facility] 08/06 HEMOGLOBIN Value: 10.5 Units: g/dL Low 12.0-16.0 Final 4544-3 [facility] 08/06 HEMATOCRIT Value: 36.2 Units: % Normal 36.0-48.0 Final 20998-1 [facility] 08/06 MCV Value: 86.7 Units: fL Normal 80.0-100.0 Final 785-6 [facility] 08/06 MCH Value: 25.2 Units: pg Low 26.0-35.0 Final 786-4 [facility] 08/06 MCHC Value: 29.1 Units: g/dL Low 31.0-36.5 Final 788-0 [facility] 08/06 RDW Value: 17.5 Units: % High 11.0-16.0 Final 777-3 [facility] 08/06 PLATELET Value: 475 Units: K/cmm High 150-450 Final 84012-4 [facility] 08/06 MPV Value: 7.2 Units: fL Normal 6.5-12.0 Final 123-9999 9-9 [facility] 08/06 ANISOCYTOSIS Value: 1+ Units: Abnormal NEGATIVE Final 123-9999 9-9 [facility] 08/06 HYPOCHROMASIA Value: 1+ Units: Abnormal NEGATIVE Final 770-8 [facility] 08/06 NEUTROPHILS Value: 74.7 Units: % Normal 40.0-80.0 Final 736-9 [facility] 08/06 LYMPHS Value: 18.2 Units: % Normal 13.0-48.0 Final 03308-0 [facility] 08/06 MONOCYTES Value: 6.5 Units: % Normal 2.0-12.0 Final 713-8 [facility] 08/06 EOS Value: 0.1 Units: % Normal 0.0-8.0 Final 706-2 [facility] 08/06 BASO Value: 0.5 Units: % Normal 0.0-2.0 Final 751-8 [facility] 08/06 NEUTS (ABSOLUTE) Value: 8.90 Units: K/uL High 1.50-7.60 Final 731-0 [facility] 08/06 LYMPHS (ABSOLUTE) Value: 2.20 Units: K/uL Normal 0.90-5.50 Final 742-7 [facility] 08/06 MONOCYTES (ABSOLUTE) Value: 0.80 Units: K/uL Normal 0.15-1.10 Final 704-7 [facility] 08/06 BASO (ABSOLUTE) Value: 0.10 Units: K/uL Normal 0.00-0.30 Final 771-6 [facility] 08/06 NUCLEATED RBC Value: 0.1 Units: {RBC}/1 00{WBC} Normal <1.0 Final [id number] [facility] 08/01 CMP-COMPREHENS ELLIOT METABOLIC PNL / GLYCO-HGBA1C / CBC W/DIFF Completed Result for: MAGGIE CLINE ( 1960, F) 2345-7 [facility] 08/01 GLUCOSE Value: 105 Units: mg/dL High Final GLUCOSE, FASTING 65-99 mg/dL GLUCOSE, NON-FASTI NG 65-125 mg/dL 2951-2 [facility] 08/01 SODIUM Value: 140 Units: mEq/L Normal 136-145 Final 2823-3 [facility] 08/01 POTASSIUM Value: 3.9 Units: mEq/L Normal 3.5-5.3 Final 2074-0 [facility] 08/01 CHLORIDE Value: 101 Units: mEq/L Normal 96-110 Final 2027-10 [facility] 08/01 CARBON DIOXIDE (CO2) Value: 27 Units: mEq/L Normal 21-33 Final 3094-0 [facility] 08/01 BUN (UREA NITROGEN) Value: 82 Units: mg/dL High 7-25 Final 2160-0 [facility] 08/01 CREATININE Value: 1.8 Units: mg/dL High 0.6-1.3 Final 3097-3 [facility] 08/01 BUN/CREATININE RATIO Value: 46 Units: High 6-25 Final 81000-5 [facility] 08/01 GFR- Value: 34 Units: mL/min/ {1.73_m 2} Low >60 Final 17885-7 [facility] 08/01 [id number] N FAROESE Value: 28 Units: mL/min/ {1.73_m 2} Low >60 Final Stage of CKD eGFR (mL/min/1 .73 square meters) Stage 1 >/= 90 or > 90 Stage 2 60 - 89 Stage 3 30 - 59 Stage 4 15 - 29 Stage 5 </= 14 or < 15 GFR is reliable for adults 17 to 69 years with stable kidney function. 85234-5 [facility] 08/01 CALCIUM Value: 7.9 Units: mg/dL Low 8.4-10.2 Final 2885-2 [facility] 08/01 PROTEIN, TOTAL Value: 6.0 Units: g/dL Normal 6.0-8.3 Final 1750-7 [facility] 08/01 ALBUMIN Value: 2.6 Units: g/dL Low 3.5-5.5 Final 1759-0 [facility] 08/01 A/G RATIO Value: 0.8 Units: Normal 0.8-2.0 Final 68- [facility] 08/01 ALKALINE PHOS Value: 176 Units: [IU]/L High 34-136 Final 1920-8 [facility] 08/01 AST (SGOT) Value: 28 Units: [IU]/L Normal 4-40 Final 1742-6 [facility] 08/01 ALT (SGPT) Value: 15 Units: [IU]/L Normal 4-55 Final 1975-2 [facility] 08/01 BILIRUBIN, TOTAL Value: 0.3 Units: mg/dL Normal 0.2-1.2 Final 4548-4 [facility] 08/01 GLYCOHEMOGLOBI N-HGBA1C Value: 8.3 Units: % High 4.1-6.1 Final 46367-4 [facility] 08/01 eAG (Mean Glucose) Value: 192 Units: mg/dL High 70-120 Final 6690-2 [facility] 08/01 WBC Value: 13.4 Units: K/cmm High 4.5-10.8 Final 789-8 [facility] 08/01 RBC Value: 3.78 Units: 10*3/mm 3 Low 3.90-5.40 Final 718-7 [facility] 08/01 HEMOGLOBIN Value: 9.7 Units: g/dL Low 12.0-16.0 Final 4-3 [facility] 08/01 HEMATOCRIT Value: 31.5 Units: % Low 36.0-48.0 Final 98027-5 [facility] 08/01 MCV Value: 83.2 Units: fL Normal 80.0-100.0 Final 785-6 [facility] 08/01 MCH Value: 25.8 Units: pg Low 26.0-35.0 Final 786-4 [facility] 08/01 MCHC Value: 31.0 Units: g/dL Normal 31.0-36.5 Final 788-0 [facility] 08/01 RDW Value: 16.4 Units: % High 11.0-16.0 Final 777-3 [facility] 08/01 PLATELET Value: 356 Units: K/cmm Normal 150-450 Final 21160-8 [facility] 08/01 MPV Value: 7.7 Units: fL Normal 6.5-12.0 Final 123-9999 9-9 [facility] 08/01 ANISOCYTOSIS Value: 1+ Units: Abnormal NEGATIVE Final 123-9999 9-9 [facility] 08/01 HYPOCHROMASIA Value: 1+ Units: Abnormal NEGATIVE Final 770-8 [facility] 06/18 /2025 NEUTROPHILS Value: 61.2 Units: % Normal 40.0-80.0 Final 736-9 [facility] 08/01 LYMPHS Value: 24.7 Units: % Normal 13.0-48.0 Final 66242-2 [facility] 08/01 MONOCYTES Value: 11.4 Units: % Normal 2.0-12.0 Final 713-8 [facility] 08/01 EOS Value: 2.2 Units: % Normal 0.0-8.0 Final 706-2 [facility] 08/01 BASO Value: 0.5 Units: % Normal 0.0-2.0 Final 751-8 [facility] 08/01 NEUTS (ABSOLUTE) Value: 8.20 Units: K/uL High 1.50-7.60 Final 731-0 [facility] 08/01 LYMPHS (ABSOLUTE) Value: 3.30 Units: K/uL Normal 0.90-5.50 Final 742-7 [facility] 08/01 MONOCYTES (ABSOLUTE) Value: 1.50 Units: K/uL High 0.15-1.10 Final 711-2 [facility] 08/01 EOS (ABSOLUTE) Value: 0.30 Units: K/uL Normal 0.00-0.80 Final 704-7 [facility] 08/01 BASO (ABSOLUTE) Value: 0.10 Units: K/uL Normal 0.00-0.30 Final Test Code Code System Name Date CMP-COMPREHENSIVE METABOLIC PNL 08/06/2024 GLYCO-HGBA1C 08/06/2024 CBC W/DIFF 08/06/2024 CMP-COMPREHENSIVE METABOLIC PNL 08/01/2024 GLYCO-HGBA1C 08/01/2024 CBC W/DIFF 08/01/2024 Social History Social History Observation Description Start Date End Date Code Code System Current Smoking Status Tobacco smoking consumption unknown [id number] SNOMED CT Sex Assigned At Female 1960 17008-0 [facility] Gender Identity Vital Signs Code Code System Vitals Name Values and Units Timing Information 9279-1 [facility] Respiratory Rate Value=28.0 Units=/m in 08/30/2024 8867-4 [facility] Heart rate Value=90.0 Units=/min 68810-3 [facility] O2 % BldC Oximetry Value=87.0 Units= % 08/30/2024 11203-5 [facility] Pain Level Value=7.0 08/30/2024 2339-0 [facility] Blood Sugar Value=99.0 Units=mg/dL 08/30/2024 8310-5 [facility] Body Temperature Value=98.5 Units= F 08/27/2024 8462-4 [facility] Blood Pressure-Diastolic Value=62 Un its=mmHg 08/27/2024 8480-6 [facility] Blood Pressure-Systolic Ulzuz=195 Un its=mmHg 08/27/2024 50697-7 [facility] Weight Pdkup=767.6 Units=Lbs 02/2024 8302-2 [facility] Height Value=64.0 Units=Inches 02/03/2024
[2024-08-30 14:33] LABS: VBG PCO2 50.2 mmol/L (35-51)
[2024-08-30 14:41] LABS: Total Cells Counted 100
[2024-08-30 14:42] LABS: Microcytosis 1+
[2024-08-30 14:43] LABS: Adenovirus,PCR Not Detected (NotDetected); Chlamydophila Pneumoniae, PCR Not Detected (NotDetected); Coronavirus 19, PCR Not Detected (NotDetected); Coronovirus HKU1,PCR Not Detected (NotDetected); Influenza A, PCR Not Detected (NotDetected); Influenza AH1, 2009 Not Detected (NotDetected); Influenza AH1, PCR Not Detected (NotDetected); Influenza AH3,PCR Not Detected (NotDetected); Influenza B, PCR Not Detected (NotDetected); Mycoplasma Pneumoniae, PCR Not Detected (NotDetected); Parainfluenza 1, PCR Not Detected (NotDetected); Parainfluenza 2, PCR Not Detected (NotDetected); Parainfluenza 3, PCR Not Detected (NotDetected); Parainfluenza 4, PCR Not Detected (NotDetected)
[2024-08-30 14:44] LABS: Albumin Level 3.7 g/dl (3.5-5.0); Chloride 103 mmol/L (98-107); Potassium 4.4 mmoL/L (3.5-5.1); Sodium 140 mmol/L (136-145)
[2024-08-30 14:47] LABS: Alanine Aminotransferase 18 U/L (12-78); Albumin/Globulin Ratio 0.8 (1.1-1.8); Alkaline Phosphatase 203 U/L (38-126); Anion Gap 10.4 mEq/L (5-15); Aspartate Amino Transferase 30 U/L (14-36); Bilirubin,Total 0.7 mg/dl (0.2-1.3); Blood Urea Nitrogen 39 mg/dl (7-17); Calcium 9.4 mg/dl (8.4-10.2); Carbon Dioxide 31 mmol/L (22.0-30.0); Creatinine Clearance Estimated 50 mL/min (50-200); Creatinine,Serum 1.40 mg/dl (0.52-1.04); Estimated Glomerular Filt Rate 38 ml/min (>60); GFR (African American) 46 ML/MIN (>60); Globulin 4.4 g/dL (1.3-3.2); Glucose 74 mg/dl (74-100); Magnesium 1.5 mg/dl (1.6-2.3); Total Protein,Serum 8.1 g/dl (6.3-8.2)
[2024-08-30] MEDS: AZITHROMYCIN 500 MG in 0.9 % SODIUM CHLORIDE 250 ML 250 MG IV (14:50)
[2024-08-30] MEDS: MAGNESIUM SULFATE IN WATER 2 GM/50 ML PIGGYBACK IV (15:07)
[2024-08-30 15:21] LABS: C-Reactive Protein 51.8 mg/L (0-4)
[2024-08-30 15:28] LABS: NT Pro Brain Natriuretic Pep. 3560 pg/mL (0-125); Troponin I 0.02 ng/ml (0.00-0.034)
[2024-08-30 15:33] LABS: Procalcitonin 0.183 ng/mL (0.0-2.0)
[2024-08-30] MEDS: ONDANSETRON 4MG/2ML VIAL 4 MG IV (15:45)
--- NOTE | 2024-08-30 15:45 | PC.NURSE ---
spoke with the hospitalist about possible admission of the pt. He would like to wait on the CTA results.
--- NOTE | 2024-08-30 16:05 | PC.NURSE ---
Dr. Ramos notified temp of 102.5, SAT 89% on 4L NC. Dr. Ramos to bedside now.
[2024-08-30] MEDS: ACETAMINOPHEN 1,000MG/100ML VIAL 1000 MG IV (16:07)
[2024-08-30] MEDS: METHYLPREDNISOLONE SOD SUCC 125MG VIAL 125 MG IV (16:12)
[2024-08-30] MEDS: IPRATROPIUM/ALBUTEROL 3 ML NEB 9 ML IH (16:12)
[2024-08-30] MEDS: SODIUM CHLORIDE 0.9% 500ML BAG 500 ML IV (16:33)
--- NOTE | 2024-08-30 16:47 | CT_ITS ---
PROCEDURE INFORMATION: Exam: CTA Chest With Contrast Exam date and time: 08/30/2024 5:09 PM Age: 64 years old Clinical indication: Pain; Right-sided; Additional info: R sided chest pain; Resp failure TECHNIQUE: Imaging protocol: Computed tomographic angiography of the chest with contrast. Exam focused on the arteries. 3D rendering (Not supervised by radiologist): MIP and/or 3D reconstructed images were created by the technologist. Radiation optimization: All CT scans at this facility use at least one of these dose optimization techniques: automated exposure control; mA and/or kV adjustment per patient size (includes targeted exams where dose is matched to clinical indication); or iterative reconstruction. Contrast material: ISOVUE 370; Contrast volume: 80 ml; Contrast route: INTRAVENOUS (IV); COMPARISON: CT LUNG SCREENING 08/03/2024 9:24 AM FINDINGS: Pulmonary arteries: Normal. No pulmonary emboli. Aorta: Unremarkable. No aortic aneurysm. No aortic dissection. Lungs: Biapical fibronodular scarring and infiltrate. Right lower lobe infiltrate. Pleural spaces: Unremarkable. No pneumothorax. No pleural effusion. Heart: Unremarkable. No cardiomegaly. No pericardial effusion. Lymph nodes: Unremarkable. No enlarged lymph nodes. Bones/joints: Compression fracture T12. Similar to comparison 08/03/2024. Soft tissues: Unremarkable. IMPRESSION: 1. Biapical fibronodular scarring and infiltrate. Right lower lobe infiltrate. 2. Compression fracture T12. Similar to comparison 08/03/2024.
--- NOTE | 2024-08-30 17:02 | PC.NURSE ---
Andreia-care performed, patient placed on purewick. Awaiting urine output for UA.
[2024-08-30] MEDS: 0.9 % SODIUM CHLORIDE 50 ML VIAL IV (17:10)
[2024-08-30] MEDS: IOPAMIDOL-370 (76%);100ML BOTTLE 80 ML IV (17:10)
[2024-08-30] MEDS: SODIUM CHLORIDE 0.9% 10ML SYR (RAD ONLY) 10 ML IV (17:10)
--- NOTE | 2024-08-30 17:17 | PC.NURSE ---
Patient back from CT, second Troponin sent.
--- NOTE | 2024-08-30 17:46 | PC.NURSE ---
Dr. Ramos notified patient's BP is trending down.
--- NOTE | 2024-08-30 17:53 | PC.NURSE ---
I notified HS of the need for a step down bed to admit the pt for sepsis, PNA, COPD exacerbation and respiratory failure.
[2024-08-30 17:59] LABS: Troponin I 0.02 ng/ml (0.00-0.034)
--- NOTE | 2024-08-30 18:15 | PC.NURSE ---
Patient report called to CODI Melendez.
--- NOTE | 2024-08-30 19:30 | EXP.HP ---
History of Present Illness *Admission Date: 08/30/24 *Reason for visit:: Shortness of breath *History of present illness: Jania Bartlett is a 64-year-old female with a medical history of COPD on 2 L baseline, greater than 30 pack smoking history, HFpEF, insulin-dependent diabetes, hypertension, anxiety/depression, who presents with 2-week onset of progressive shortness of breath and cough. Patient states that she is not able to cough up anything, but does endorse right-sided pleuritic chest pain and now generalized chest pain from coughing. Also endorses nonspecific generalized abdominal pains, denies fever/chills. States her lower extremity edema is at baseline. Workup in the ED significant for WBC 22.4, CRP 51.8, procalcitonin normal, CTA chest revealing right lower lobe pneumonia. Patient is also tachypneic and now requiring 4 L nasal cannula. Patient was given ceftriaxone, azithromycin. Fluids were held due to suspicion of fluid overload. Case discussed by ED provider initially was made to admit patient for sepsis secondary to community-acquired pneumonia. [facility] Disclaimer: The information contained in this section may have been updated after the patient was seen, as this information can be updated by other users. Medical History Pneumonia Lung nodule Pulmonary Langerhans cell granulomatosis Encounter for screening for malignant neoplasm of lung History of smoking 30 or more pack years Vocal cord dysfunction Community acquired pneumonia Acute on chronic diastolic (congestive) heart failure Lumbar compression fracture RAGHAV (acute kidney injury) C. difficile colitis Cough Hyperkalemia Chronic respiratory failure with hypoxia COPD mixed type Elevated liver enzymes Paroxysmal atrial fibrillation Acute on chronic heart failure with preserved ejection fraction (HFpEF) Suicidal ideation Depression with suicidal ideation Abnormality of lung on CXR Acute and chronic respiratory failure with hypoxia Chest pain Abnormal ankle brachial index (DAVE) Pyelonephritis Restless leg syndrome Hepatitis B Depression Anxiety I think this patient's anxiety is partially related to cognitive deficits. She may well have beginning dementia. She has been cared for by her daughter. Will just follow this closely. Chronic kidney disease Sleep apnea Migraine History of transient ischemic attack (TIA) History of hip fracture History of gastroesophageal reflux (GERD) Diabetes mellitus, type 2 Hyperlipidemia Congestive heart failure Nonspecific chest pain Hip fracture Failure to thrive Closed femur fracture Instability of left knee joint Left knee pain Vaginal pain Abnormal computed tomography angiography (CTA) of abdomen and pelvis Claudication Decreased pedal pulses Other specified symptoms and signs involving the circulatory and respiratory systems Acquired hammer toes of both feet Chronic deep vein thrombosis (DVT) of right lower extremity Primary osteoarthritis of both feet Overweight (BMI 25.0-29.9) Acute worsening of stage 3 chronic kidney disease Diabetes mellitus with neuropathy Left leg swelling Lymphedema Plantar fasciitis, left Foot pain, left Very concerned about the possibility of fracture in this patient. Will send her for x-rays. Obesity (BMI 30.0-34.9) Sepsis Osteoarthritis of feet, bilateral Diabetic peripheral neuropathy associated with type 2 diabetes mellitus Onychoincurvatum Hepatitis C Chest pain Normal coronary arteries Foot pain, right COPD (chronic obstructive pulmonary disease) DVT (deep venous thrombosis) Cellulitis of right foot Hep B w/o coma Hep C w/o coma, chronic Endothelial dysfunction of coronary artery Elevated left ventricular end-diastolic pressure (LVEDP) Cauda equina syndrome ANNIE on CPAP Langerhan's cell histiocytosis SOB (shortness of breath) on exertion Atrial fibrillation HTN (hypertension) PAD (peripheral artery disease) Abdominal pain Diabetes mellitus Renal insufficiency Acute exacerbation of chronic obstructive airways disease Neck Pain Back pain Surgical History History of surgery on right wrist History of hip surgery Hx of tonsillectomy History of cholecystectomy History of appendectomy History of hysterectomy History of cardiac cath Family History Other Coronary artery disease Family history of diabetes mellitus type II Family history of hyperlipidemia Family history of hypertension Social History Smoking Status: Current every day smoker tobacco type: cigarettes packs per day: 2 second hand exposure: Yes alcohol intake: never counseling provided: none substance use type: denies use current occupational status: retired Travel in the last 8 weeks?: None household members: none housing: house lives independently: Yes marital status: education level: middle school current occupational exposures/hazards: No caffeine: Yes special ping needs: No agree to transfusion: No do you feel safe at home: Yes victim of physical abuse: No victim of emotional abuse: No victim of sexual abuse: No would you like helpful sources: No Have you lived/traveled outside [place] in past 30 days?: No Contact w/someone who lives/traveled outside US past 30 days?: No Exposure to someone with infectious disease in past 14 days?: No Do you have a fever (greater than 100.4 F or 38 C)?: No Have you tested positive for COVID-19?: No Exposed to someone with COVID-19 in past 14 days?: No Do you have a sore throat?: No Do you have a cough?: No Do you have any weakness?: No Do you have any diarrhea?: No Are you experiencing any unusual bleeding?: No Do you have any muscle aches/pain?: No Do you have any abdominal pain?: No Are you experiencing loss of taste or smell?: No Other Medical History Have you received the Flu Vaccine for this season: Yes Have you received the Pneumonia Vaccine: Yes Meds Home Medications and Allergies Home Medications ?Medication ?Instructions ?Recorded ?Confirmed ?Type apixaban 5 mg tablet (Eliquis) 5 mg PO BID Blood Thinner 09/06/22 08/03/24 History metoprolol tartrate 25 mg tablet 12.5 mg (1/2 x 25 mg) PO BID 30 05/30/23 08/03/24 Rx days #30 tabs bumetanide 2 mg tablet 2 mg PO DAILY 08/23/23 08/03/24 History Held on 09/06/23. Instructions: Pending decrease in stool burden insulin lispro 100 unit/mL 1 sliding scale dose SQ 08/23/23 08/03/24 History subcutaneous pen (Admelog SoloStar USEASDIRECTD U-100 Insulin lispro) atorvastatin 10 mg tablet 10 mg PO HS 09/03/23 08/03/24 History isosorbide mononitrate 30 mg 30 mg PO DAILY 09/03/23 08/03/24 History tablet,extended release 24 hr ipratropium 0.5 mg-albuterol 3 mg 3 ml inhalation Q6HP PRN SHORTNESS 09/04/23 08/03/24 History (2.5 mg base)/3 mL nebulization OF BREATH/WHEEZING soln lidocaine 5 % topical patch 1 patch topical DAILY 09/16/23 08/03/24 History (Lidoderm) buspirone 5 mg tablet See Rx Instructions .Route 11/22/23 08/03/24 Rx .COMPLEX #60 tabs guaifenesin 600 mg tablet, mg PO 12/01/23 08/03/24 History extended release 12 hr (Mucus Relief ER) insulin glargine-yfgn 100 unit/mL unit SQ 12/01/23 08/03/24 History (3 mL) subcutaneous pen insulin glargine-yfgn 100 unit/mL unit SQ 12/01/23 08/03/24 History subcutaneous solution pen needle,diabetic dual safty 30 #100 ea 12/01/23 08/03/24 History gauge x 3/16 (BD AutoShield Duo Pen Needle) polyethylene glycol 3350 17 17 g PO 12/01/23 08/03/24 History gram/dose oral powder (ClearLax) gabapentin 300 mg capsule 300 mg PO TID 30 days #90 caps 12/29/23 08/03/24 Rx acetaminophen 500 mg capsule 500 mg PO Q6H PRN 03/05/24 08/03/24 History famotidine 20 mg tablet 20 mg PO HS 03/05/24 08/03/24 History mineral rmw-tova-dzdjlaw glyc ea topical 03/05/24 08/03/24 History lotion buspirone 10 mg tablet 10 mg PO 06/13/24 08/03/24 History oxycodone-acetaminophen 5 mg-325 tab PO 07/04/24 08/03/24 History mg tablet sertraline 100 mg tablet mg PO 07/04/24 08/03/24 History aripiprazole 10 mg tablet 10 mg PO DAILY 08/03/24 08/03/24 History fluticasone fur. 100 mcg-umeclid 1 inh inhalation 08/03/24 08/03/24 History 62.5 mcg-vilant 25 mcg inhalat.powder (Trelegy Ellipta) telmisartan 40 mg tablet 40 mg PO DAILY 08/03/24 08/03/24 History New Prescriptions to Start Prescriptions: Allergies Allergy/AdvReac Type Severity Reaction Status Date / Time methocarbamol Allergy Severe Altered Verified 08/13/24 14:16 mental status terbutaline (TERBUTALINE) Allergy Severe SWELLS Verified 08/13/24 14:16 THROAT aspirin (ASPIRIN) Allergy Intermediate I-RASH Verified 08/13/24 14:16 codeine (CODEINE) Allergy Intermediate Swelling Verified 08/13/24 14:16 of the Eye diphenhydramine (From Allergy Intermediate Hives Verified 08/13/24 14:16 Benadryl) Sulfa (Sulfonamide Allergy Intermediate Hives Verified 08/13/24 14:16 Antibiotics) (SULFA (SULFONAMIDE ANTIBIOTICS)) sulfamethoxazole (From Allergy Intermediate Hives Verified 08/13/24 14:16 Bactrim) trimethoprim (From Bactrim) Allergy Intermediate Hives Verified 08/13/24 14:16 naproxen (NAPROXEN) Allergy Mild itching Verified 08/13/24 14:16 tramadol (TRAMADOL) Allergy Mild Vomiting Verified 08/13/24 14:16 citalopram (CITALOPRAM) Allergy Unknown SKIN PEEL Verified 08/13/24 14:16 erythromycin base Allergy Unknown I-RASH Verified 08/13/24 14:16 (ERYTHROMYCIN BASE) Penicillins (PENICILLINS) Allergy Unknown I-RASH Verified 08/13/24 14:16 fluticasone (From Advair Allergy Unknown Verified 08/13/24 14:16 Diskus) allergy reaction salmeterol (From Advair Allergy Unknown Verified 08/13/24 14:16 Diskus) allergy reaction bupropion (BUPROPION) AdvReac Severe Hallucinati Verified 08/13/24 14:16 ng duloxetine (DULOXETINE) AdvReac Severe Hallucinati Verified 08/13/24 14:16 ng pregabalin (PREGABALIN) AdvReac Severe Hallucinati Verified 08/13/24 14:16 ng celecoxib (From CELEBREX) AdvReac Mild Vomiting Verified 08/13/24 14:16 Exam Data for Last 24 hours Vital signs and Labs for Last 24 Hours: Temp Pulse Resp BP Pulse Ox O2 Del Method O2 Flow Rate 99 F 87 26 H 95/54 L 92 L Nasal Cannula 4 08/30/24 18:22 08/30/24 18:22 08/30/24 18:22 08/30/24 18:22 08/30/24 18:09 08/30/24 19:00 08/30/24 19:00 Laboratory Results - last 24 hr 08/30/24 13:57: WBC 22.4 H*, RBC 4.34, Hgb 11.0 L, Hct 36.6 L, MCV 84.3, MCH 25.3 L, MCHC 30.1 L, RDW 15.9, Plt Count 335, MPV 9.7, Neut % (Auto) 78.0, Lymph % (Auto) 12.4, [place] % (Auto) 8.4, Eos % (Auto) 0.2, Baso % (Auto) 0.4, Neut # (Auto) 17.4 H, Lymph # (Auto) 2.8, [place] # (Auto) 1.9 H, Eos # (Auto) 0.0, Baso # (Auto) 0.1, Total Counted 100, Neutrophils % (Manual) 79 H, Lymphocytes % (Manual) 11, Atypical Lymphs % 1.0, Monocytes % (Manual) 9, Platelet Estimate Normal, Microcytosis 1+, Sodium 140, Potassium 4.4, Chloride 103, Carbon Dioxide 31 H, Anion Gap 10.4, BUN 39 H, Creatinine 1.40 H, Estimated Creat Clear 50, Estimated GFR 38 L, Est GFR ( Amer) 46 L, Glucose 74, Calcium 9.4, Magnesium 1.5 L, Total Bilirubin 0.7, AST 30, ALT 18, Alkaline Phosphatase 203 H, Troponin I 0.02, C-Reactive Protein 51.8 H, NT-Pro-B Natriuret Pep 3560 H, Total Protein 8.1, Albumin 3.7, Globulin 4.4 H, Albumin/Globulin Ratio 0.8 L, Procalcitonin 0.183, Chlamy pneumoniae PCR Not detected, Adenovirus (PCR) Not detected, B. pertussis DNA (PCR) Not detected, Coronavirus OC43 (PCR) Not detected, Coronavirus HKU1 (PCR) Not detected, Coronavirus 229E (PCR) Not detected, SARS-CoV-2 (PCR) Not detected, Coronavirus NL63 (PCR) Not detected, Human Metapneumovir PCR Not detected, Influenza A (H1) PCR Not detected, Influ A (H1N1/09) PCR Not detected, Influenza A (H3) PCR Not detected, Influenza Type A (PCR) Not detected, Influenza Type B (PCR) Not detected, M. pneumoniae (PCR) Not detected, Parainfluenza 1 (PCR) Not detected, Parainfluenza 2 (PCR) Not detected, Parainfluenza 3 (PCR) Not detected, Parainfluenza 4 (PCR) Not detected, RSV (PCR) Not detected, Entero/Rhino (PCR) Not detected 08/30/24 14:17: VBG pH 7.36, VBG pCO2 50.2, VBG pO2 42.8 H, VBG HCO3 27.5, VBG Total CO2 29.1 H, VBG O2 Saturation 79.4 H, VBG Base Excess 2.0, VBG Lactic Acid 1.1 08/30/24 17:17: Troponin I 0.02 I & O for Last 24 hours: Intake & Output 08/27/24 08/28/24 08/29/24 08/30/24 23:59 23:59 23:59 23:59 Weight 77.111 kg Constitutional Constitutional: no acute distress *Routine HEENT Exam Head: Present normocephalic Eye: Present EOMI and PERRL ENT: Present mucous membranes moist *Routine Neck Exam Neck: Present supple; Absent lymphadenopathy *Routine Respiratory Exam Respiratory: Present rhonchi; Absent CTA bilaterally *Routine Cardiovascular Exam Cardiovascular: Present RRR *Routine Abdominal Exam Abdominal: Present soft and normoactive bowel sounds; Absent tenderness *Routine Rectal Exam Rectal:: deferred *Routine Genitalia Exam Genitalia:: deferred *Routine Extremities Exam Extremities: Present edema; Absent cyanosis or clubbing Comments: 2+ bilateral lower extremity pitting edema. *Routine Skin Exam Skin: Present warm; Absent rash *Routine Neurological Exam Neurological: Present alert and oriented X3 Assessment and Plan *Assessment and plan (1) Pneumonia: Status: Acute Category: Medical Code(s): J18.9 - Pneumonia, unspecified organism Plan Jania Bartlett is a 64-year-old female with a medical history of COPD on 2 L baseline, greater than 30 pack smoking history, HFpEF, insulin-dependent diabetes, hypertension, anxiety/depression, who presents with 2-week onset of progressive shortness of breath and cough. Patient states that she is not able to cough up anything, but does endorse right-sided pleuritic chest pain and now generalized chest pain from coughing. Also endorses nonspecific generalized abdominal pains, denies fever/chills. States her lower extremity edema is at baseline. Workup in the ED significant for WBC 22.4, CRP 51.8, procalcitonin normal, CTA chest revealing right lower lobe pneumonia. Patient is also tachycardic, tachypneic and now requiring 4 L nasal cannula. Patient was given ceftriaxone, azithromycin. Fluids were held due to suspicion of fluid overload. Case discussed by ED provider initially was made to admit patient for sepsis secondary to community-acquired pneumonia. #Acute on chronic hypoxic respiratory failure #Community-acquired pneumonia #Sepsis ? Presents with 2-weeks of progressive shortness of breath, nonproductive cough. Initial WBC 22.4, with tachypnea. ? CTA chest revealed right lower lobe pneumonia, CXR shows chronic interstitial changes. Procalcitonin normal. ? Started vancomycin, cefepime, azithromycin day 1. ? Ordered 1 L LR bolus, cautious with fluids in the setting of HFpEF. ? Follow-up sputum, blood cultures, MRSA screen. ? Pulmonology consulted, pending further recommendations. ? Follow-up morning CBC, CMP, procalcitonin, CRP, ESR, LDH. Follow-up UA. #COPD exacerbation ? Mild diffuse rhonchi bilaterally. ? Continue DuoNebs every 6 hours, prednisone 40 mg. #Insulin-dependent diabetes ? Follow-up A1c. ? LDSSI, ACHS glucose checks. #HFpEF ? Patient states 3+ lower extremity pitting edema is chronic. Takes Bumex at home, hold in the setting of soft pressures. ? Follow-up repeat ECHO. #Hypertension ? Hold home BP meds in the setting of soft pressures. #Anxiety/depression ? Continue home medications once reconciled. DNR/DNI DVT prophylaxis: Lovenox 40 mg
[2024-08-30 20:25] LABS: POC Glucose,Bedside 113 (70-110)
[2024-08-30] MEDS: CEFEPIME HCL 2 GM in 0.9 % SODIUM CHLORIDE 100 ML IV (20:43)
[2024-08-30] MEDS: LACTATED RINGERS 1000ML 500 ML 999 ML IV (20:44)
[2024-08-30] MEDS: OXYCODONE 10MG W/APAP 325MG TABLET 1 EACH PO (20:57)
[2024-08-30 21:36] LABS: Troponin I 0.02 ng/ml (0.00-0.034)
[2024-08-30] MEDS: IPRATROPIUM/ALBUTEROL 3 ML NEB IH (23:41)
[2024-08-30] MEDS: SODIUM CHLORIDE 3% 15ML NEB 3 ML IH (23:42)
[2024-08-31] VITALS (16 sets, daily range): BP systolic 93–139; BP diastolic 45–71; PULSE 67–130; RESP 15–24; TEMP 36.3–37.3; O2SAT 92–98; BMI 31.3
--- NOTE | 2024-08-31 02:45 | PC.NURSE ---
patient had large bowel movement and was straight cathed with clean sterile technique to get 410ml out, urine sample sent to the lab
[2024-08-31 02:52] LABS: Microscopic, Urine URINE MICROSCOPIC (MICROSCOPIC)
[2024-08-31 03:02] LABS: Bilirubin,Urine Negative (Negative); Color,Urine YELLOW (Yellow); Glucose,Urine (UA) 1+ (Negative); Ketones,Urine Negative (Negative); Leukocyte Esterase,Urine Negative (Negative); PH,Urine 6.0 (5.0-8.5); Protein,Urine 3+ (Negative); Specific Gravity, Urine 1.025 (1.005-1.030); Urobilinogen,Urine 0.2 EU/dl (0.2)
[2024-08-31 03:14] LABS: Amorphous Sediment,Urine 2+ /lpf; Bacteria,Urine 3+ /lpf; Mucus,Urine 1+ /lpf
[2024-08-31] MEDS: OXYCODONE 10MG W/APAP 325MG TABLET 1 EACH PO (04:41)
[2024-08-31 04:46] LABS: MRSA DNA PCR Positive (Negative)
[2024-08-31 05:40] LABS: Hematocrit 30.0 % (37.0-47.0); Immature Granulocytes % 1.3 %; Mean Corpuscular HGB Conc 29.7 g/dL (31.8-35.4); Mean Corpuscular Hemoglobin 25.1 pg (27.0-31.2); Mean Corpuscular Volume 84.5 fl (81-99); Nucleated Red Blood Cells % 0 %; Platelet Count 281 K/mm3 (142-424); Red Blood Count 3.55 M/mm3 (4.20-5.40); Red Cell Distribution Width-SD 48.7 fL; White Blood Count 25.2 K/mm3 (4.8-10.8)
[2024-08-31 05:43] LABS: Hemoglobin 8.9 g/dL (12.2-16.2)
[2024-08-31 05:49] LABS: Alanine Aminotransferase 15 U/L (12-78); Albumin Level 2.9 g/dl (3.5-5.0); Albumin/Globulin Ratio 0.9 (1.1-1.8); Alkaline Phosphatase 135 U/L (38-126); Anion Gap 14.2 mEq/L (5-15); Aspartate Amino Transferase 23 U/L (14-36); Bilirubin,Total 0.4 mg/dl (0.2-1.3); Blood Urea Nitrogen 41 mg/dl (7-17); Calcium 8.7 mg/dl (8.4-10.2); Carbon Dioxide 25 mmol/L (22.0-30.0); Chloride 104 mmol/L (98-107); Creatinine Clearance Estimated 39 mL/min (50-200); Creatinine,Serum 1.80 mg/dl (0.52-1.04); Estimated Glomerular Filt Rate 28 ml/min (>60); GFR (African American) 34 ML/MIN (>60); Globulin 3.4 g/dL (1.3-3.2); Glucose 274 mg/dl (74-100); Magnesium 2.0 mg/dl (1.6-2.3); Potassium 4.2 mmoL/L (3.5-5.1); Sodium 139 mmol/L (136-145); Total Protein,Serum 6.3 g/dl (6.3-8.2)
[2024-08-31 05:51] LABS: C-Reactive Protein 104.4 mg/L (0-4)
[2024-08-31 06:00] LABS: Hemoglobin A1C 8.7 % (4.0-6.0)
[2024-08-31 06:05] LABS: Procalcitonin 1.14 ng/mL (0.0-2.0)
[2024-08-31] MEDS: IPRATROPIUM/ALBUTEROL 3 ML NEB IH ×4 (06:06→23:34)
[2024-08-31 06:10] LABS: Total Cells Counted 100
[2024-08-31] MEDS: humaLOG 100 UNITS/ML 10ML VIAL (SSI) SUBCUT ×4 (06:29→20:24)
[2024-08-31 06:31] LABS: POC Glucose,Bedside 268 (70-110)
--- OUTSIDE RECORDS SUMMARY | 2024-08-31 07:40 | XMS_ITS | Encounter Summary ---
Author Organization Healthcare Address [address] [place] [address] Care Team Providers Care Distance Education Director Name Role Phone Joshua Urban MD Primary Care Provider [phone] Tri Singletary COMPUTER EQUIPMENT INSTALLER Unavailable Unavailable Encounter Details Date Type Department Care Team (Late Contact Info) Description 01/15/2018 Orders Only External Location [address] [place] [address] Provider, External Social History Tobacco Use Types [...] Description 09/24/2024 2:30 PM EDT Office Visit [facility] [address], [address] [place] [address] Cornelio Burns MD [address] [place] [address] documented as of this encounter Procedures Procedure [...] documented as of this encounter Care Teams Distance Education Director Relationship Specialty Start Date End Date Joshua Urban MD [address] [place] [address] PCP - General 06/27/20 Tri Singletary, [place] [address] Range Manager Strapper 10/19/17 05/05/24 documented as of this encounter
--- OUTSIDE RECORDS SUMMARY | 2024-08-31 07:41 | XMS_ITS | Encounter Summary ---
Author Organization Healthcare Address [address] [place] [address] Care Team Providers Care An/Ssn 2 4 Operator Name Role Phone Joshua Urban MD Primary Care Provider [phone] Tri Singletary SPECIAL NEEDS TEACHER Unavailable Unavailable Encounter Details Date Type Department Care Team (Late st Contact Info) Description 06/12/2016 Orders Only External Location [address] [place] [address] Provider, External Social History Tobacco Use Types [...] Description 09/24/2024 2:30 PM EDT [facility] Visit [facility] [address], [address] [place] [address] Cornelio Burns MD [address] [place] [address] documented as of this encounter Procedures Procedure [...] documented as of this encounter Care Teams An/Ssn 2 4 Operator Relationship Specialty Start Date End Date Joshua Urban MD [address] [place] [address] PCP - General 06/27/20 Tri Singletary, [place] [address] Dietitian Chief Clinical Cytogenetics Director 10/19/17 05/05/24 documented as of this encounter
--- OUTSIDE RECORDS SUMMARY | 2024-08-31 07:41 | XMS_ITS | Clinical Summary ---
Author Organization [facility] Address [address] [place] [address] Phone Care Team Providers Care Rehanger Name Role Phone Unavailable Primary Care Provider [...] age to complete this topic Insurance [place] PART [place] B
--- OUTSIDE RECORDS SUMMARY | 2024-08-31 07:41 | XMS_ITS | Encounter Summary ---
Author Organization Healthcare Address [address] [place] [address] Care Team Providers Care Email Engineer Name Role Phone Joshua Urban MD Primary Care Provider [phone] Encounter Details Date Type Department Care Team [...] drink first t michelet in the morning (EYE-HAND BRAILLE TRANSCRIBER) to steady your nerves or to get [...] Description 09/24/2024 2:30 PM EDT Office Visit [facility] [address], 1[address] [place] [address] Cornelio Burns MD [address] [place] [address] documented as of this encounter Visit Diagnoses Not on filedocumented in this encounter Additional Health Concerns Assessment Noted Time A fall risk assessment has been complete d for the patient 07/16/2024 7:58 AM EDT A Body Mass Index follow-up plan has been documented for the patient 07/16/2024 8:28 AM EDT documented as of this encounter Care Teams Email Engineer Relationship Specialty Start Date End Date Joshua Urban MD [address] [place] [address] PCP - General 06/27/20 documented as of this encounter
--- OUTSIDE RECORDS SUMMARY | 2024-08-31 07:41 | XMS_ITS ---
Author Organization [facility] rochelle Care Team Providers Care Diet Attendant Name Role Phone Yuan Nataliya Unavailable Unavailable SHYLA MONET Unavailable Unavailable JER DAMICO Unavailable Unavailable Roel Velazquez Unavailable Unavailable Allergies and adverse reactions Code CodeSystem Substance Reaction Severity StartDate Concern Status Trimethoprim Unknown 06/30/[address] Sulfa Antibiotics Unknown 06/30/2023 active 120848 RXNORM Pregabalin Unknown 06/30/2023 active 7984 RXNORM Penicillin Unknown 06/30/2023 active 7258 RXNORM Naproxen Unknown 06/30/2023 active 6845 RXNORM Methocarbamol Unknown 06/30/2023 active 4053 RXNORM Erythromycin Unknown 06/30/2023 active 68070 RXNORM DULoxetine Unknown 06/30/2023 active 3498 RXNORM diphenhydrAMINE Unknown 06/30/2023 activ e 2670 RXNORM Codeine Unknown 06/30/2023 active 2556 RXNORM Citalopram Unknown 06/30/2023 active 792859 RXNORM Celecoxib Unknown 06/30/2023 active Bupropion Unknown 06/30/2023 active 1191 RXNORM Aspirin Unknown 06/30/2023 active 161 RXNORM Acetaminophen Unknown 06/30/2023 active Care Team Name Role Address Phone Organization Dates SHYLA DAVIDSON [address] [facility] [address], [place], [address], [facility] (Office): : [facility] 06/30/2023 - 08/17/2023 Nataliya Bolden [facility] (Home): [facility] 06/30/2023 - 08/17/2023 JER DAMICO [address] [facility] [address], [place], [address], [facility] (Office): : [facility] 06/30/2023 - 08/17/2023 Roel Velazquez [address] [place], [place], [facility], [facility] (Office): : [facility] 06/30/2023 - 08/17/2023 Immunizations Immunization Status Vaccine Details Vaccine Code CodeSystem Date Notes Influenza new Influenza, split virus, trivalent, injectable, contains preservative 141 CVX created date: 07/22/2023 consent date: 07/22/2023 Educated by kai kilpatrick on 07/22/2023 TB 1 Step Mantoux (PPD) completed tuberculin skin test; purified protein derivative solution, intradermal lotNumber: [id number] expiry: 06/14/2026 Mfg: manatoux Given 0.1 ml Left Forearm intradermally 96 CVX created date: 07/08/2023 consent date: 07/08/2023 administer ed date: 07/08/2023 TB 1 Step Mantoux (PPD) completed tuberculin skin test; purified protein derivative solution, intradermal lotNumber: [id number] expiry: 07/15/2023 Given 0.1 ml Left Forearm [...] DEEP VEINS OF UNSPECIFIED LOWER EXTREMITY 06/30/[address] active 2 CHRONIC DIASTOLIC (CONGESTIVE) HEART FAILURE 06/30/[address] active 3 CHRONIC KIDNEY DISEASE, STAGE 3 UNSPECIFIED 06/30/[address] active 4 CHRONIC OBSTRUCTIVE PULMONARY DISEASE, UNSPECIFIED 06/30/[address] active 5 CHRONIC RESPIRATORY FAILURE WITH HYPOXIA 06/30/[address] active 6 DIFFICULTY IN WALKING, NOT ELSEWHERE CLASSIFIED 06/30/[address] active 7 DORSALGIA, UNSPECIFIED 06/30/[address] active 8 ESSENTIAL (PRIMARY) HYPERTENSION 06/30/[address] active 9 GASTRO-ESOPHAGEAL REFLUX DISEASE WITHOUT ESOPHAGITIS 06/30/[address] active 10 GENERALIZED ANXIETY DISORDER 06/30/[address] active 11 HYPERKALEMIA 06/30/[address] activ e 12 HYPERLIPIDEMIA, UNSPECIFIED 06/30/[address] active 13 MUSCLE WEAKNESS (GENERALIZED) 06/30/[address] active 14 NICOTINE DEPENDENCE, CIGARETTES, UNCOMPLICATED 06/30/[address] active 15 OTHER SPECIFIED DIABETES MELLITUS WITH DIABETIC NEUROPATHY, UNSPECIFIED 06/30/[address] active 16 PAROXYSMAL ATRIAL FIBRILLATION 06/30/[address] active 17 UNSPECIFIED BACTERIAL PNEUMONIA 06/30/[address] active Reason for Referral No Reasons for Referral Entered Social History Social History Observation Description Start Date End Date Code Code System Current Smoking Status Tobacco smoking consumption unknown 059062048 SNOMED CT Sex Assigned At Female 1960 05014-8 [facility] Gender Identity Female [id number] [address] Vital Signs Code Code System Vitals Name Values and Units Timing Information 9279-1 [facility] Respiratory Rate Value=20.0 Units=/m in 08/17/2023 8310-5 [facility] Body Temperature Value=97.3 Units= F 08/17/2023 88723-5 [facility] O2 % dC Oximetry Value=95.0 Units= % 08/17/2023 87752-6 [facility] Pain Level Value=1.0 08/17/2023 2339-0 [facility] Blood Sugar Jkzpw=305.0 Units=mg/dL 08/17/2023 8462-4 [facility] Blood Pressure-Diastolic Value=70 Un its=mmHg 08/17/2023 8480-6 [facility] Blood Pressure-Systolic Dmeky=181 Un its=mmHg 08/17/2023 8867-4 [facility] Heart rate Value=75.0 Units=/min 04/2023 68255-7 [facility] Weight Wvefk=589.4 Units=Lbs 8302-2 [facility] Height Value=63.0 Units=Inches 06/30/2023
--- OUTSIDE RECORDS SUMMARY | 2024-08-31 07:41 | XMS_ITS | Clinical Summary ---
Author Organization [employer] ([place], [place], [place], [place]) Address [address] [place] [address] Care Team Providers Care Dog Boarder Name Role Phone [facility], Provider Not In The System MD Primary [...] Do you speak a language other than Citizen Of [place] at ho ca? No 06/20/2023 Do you want help with [...] (#1) 2024 Lipid Panel 10/01/2025 10/01/2022 Insurance [facility] AD[facility] MEDICAID [id number] Advance Directives For more information, please contact: [phone] * Full Code (Latest Code Status on File) Date Activated Date Inactivated Comments 06/19/2023 11:00 PM 06/30/2023 2:30 PM Care Teams Dog Boarder Relationship Specialty Start Date End Date [facility], Provider Not In The System, [place] [address] PCP - General 06/20/23
--- OUTSIDE RECORDS SUMMARY | 2024-08-31 07:41 | XMS_ITS | Encounter Summary ---
Author Organization Healthcare Address [address] [place] [address] Care Team Providers Care Ornamental Metal Worker Helper Name Role Phone Joshua Urban MD Primary Care Provider [phone] Tri Singletary PHOTO MASK PATTERN GENERATOR Unavailable Unavailable Encounter Details Date Type Department Care Team (Late st Contact Info) Description 12/01/2019 Orders Only External Location [address] [place] [address] Provider, External Social History Tobacco Use Types [...] Description 09/24/2024 2:30 PM EDT Office Visit [facility] [address], 1[address] [place] [address] Cornelio Burns MD [address] [place] [address] documented as of this encounter Procedures Procedure [...] documented as of this encounter Care Teams Ornamental Metal Worker Helper Relationship Specialty Start Date End Date Joshua Urban MD [address] [place] [address] PCP - General 06/27/20 Tri Singletary, [place] [address] Relay Worker Forms Examiner 10/19/17 05/05/24 documented as of this encounter
--- OUTSIDE RECORDS SUMMARY | 2024-08-31 07:41 | XMS_ITS | Encounter Summary ---
Author Organization Healthcare Address [address] [place] [address] Care Team Providers Care Abrasive Sawyer Name Role Phone Joshua Urban MD Primary Care Provider [phone] Tri Singletary ASSOCIATE TRAINER Unavailable Unavailable Encounter Details Date Type Department Care Team (Late st Contact Info) Description 01/03/2018 [facility] Encounter Historical OTTR [address] [place] [address] Larissa Pineda RN HOSP. SPECIAL DIAGNOSTIC FACILITIES [...] need a new referral from her primary fbi investigator. Pt verbalized understanding. * Progress Notes - [...] or pulmonoligist- I did transfer pt to [facility] for follow up * Progress Notes [...] to pt, referring MD, and saved to [facility]. * Progress Notes - Larissa Pineda [...] questionnaires and map for ICE on 12/15 [phone] * Progress Notes - Wen Stiles [...] and map , and refer. MD letter [phone] * Progress Notes - Wen Stiles [...] 09/24/2024 2:30 PM EDT Office Visit [facility] [address], 1st [address] [place] [address] Cornelio Burns MD [address] [place] [address] documented as of this encounter Procedures Procedure [...] RESULTS (MANUAL) (07/12/2018 9:39 AM EDT) Pathologist [facility] External Estimated GFR 41.88 EXTERNAL LAB 07/12/2018 9:39 AM EDT Narrative EXTERNAL LAB - 07/13/2018 11:20 PM EDT Automated LAB Interface Historical Provider MD LAB BLOOD ORDERABLES Taniya l Result Performing Organization Address City/[facility] Co de Phone Number EXTERNAL LAB * OTTR LAB RESULTS (MANUAL) (05/30/2018 3:36 PM EDT) [facility] External Estimated GFR 50.67 EXTERNAL LAB 05/30/2018 3:36 PM EDT Narrative EXTERNAL LAB - 06/01/2018 2:30 PM EDT Automated LAB Interface Historical Provider MD LAB BLOOD ORDERABLES Taniya l Result Performing Organization Address [facility] Co de Phone Number EXTERNAL LAB * OTTR LAB RESULTS (MANUAL) (01/17/2018 1:49 PM EST) [facility] External Estimated GFR 53.29 EXTERNAL LAB 01/17/2018 1:49 PM EST Narrative EXTERNAL LAB - 01/17/2018 2:55 PM EST Automated LAB Interface Historical Provider MD LAB BLOOD ORDERABLES Taniya l Result Performing Organization Address [facility]/State/ZIP Co de Phone Number EXTERNAL LAB * OTTR LAB RESULTS (MANUAL) (12/15/2017 11:47 AM EDT) [facility] External FEV1/FVC (Pre) % 1.92 L [...] ORDERABLES Taniya l Result Performing Organization Address City/[facility] Co de Phone Number EXTERNAL LAB * OTTR LAB RESULTS (MANUAL) (11/10/2017 9:49 AM EDT) External Estimated GFR 41.54 EXTERNAL LAB 11/10/2017 9:49 AM EDT Narrative EXTERNAL LAB - 11/17/2017 8:46 AM EDT Automated LAB Interface Historical Provider MD LAB BLOOD ORDERABLES Taniya l Result Performing Organization Address City/[facility] Co de Phone Number EXTERNAL LAB documented in this encounter Visit Diagnoses Not on filedocumented in this encounter Additional Health Concerns Infection Onset Date Last Indicated Resolved Time Gastrointestinal Rule-Out 12/02/2019 12/02/2019 5:23 AM EDT documented as of this encounter Care Teams Abrasive Sawyer Relationship Specialty Start Date End Date Joshua Urban MD [address] [place] [address] PCP - General 06/27/20 Tri Singletary, [place] [address] Rust Proofer Guide Delegate 10/19/17 05/05/24 documented as of this encounter
--- OUTSIDE RECORDS SUMMARY | 2024-08-31 07:41 | XMS_ITS | Encounter Summary ---
Author Organization Healthcare Address [address] [place] [address] Care Team Providers Care Finishing Lab Technician Name Role Phone Joshua Urban MD Primary Care Provider [phone] Tri Singletary HADOOP ENGINEER Unavailable Unavailable Encounter Details Date Type Department Care Team (Late st Contact Info) Description 12/16/2017 Orders Only External Location [address] [place] [address] Provider, External Social History Tobacco Use Types [...] Orthopaedic Surgery & Sports Medicine [address] [place] [address] Cornelio Burns MD [address] [place] [address] documented as of this encounter Procedures Procedure [...] documented as of this encounter Care Teams Finishing Lab Technician Relationship Specialty Start Date End Date Joshua Urban MD [address] [place] [address] PCP - General 06/27/20 Tri Singletary, [place] [address] Test Car Driver Plumbing Technician 10/19/17 05/05/24 documented as of this encounter
--- OUTSIDE RECORDS SUMMARY | 2024-08-31 07:41 | XMS_ITS | Clinical Summary ---
Author Organization [facility] Address [address] [place] [address] Care Team Providers Care Sewer Head Name Role Phone Joshua Urban MD Primary Care Provider [phone] Allergies Active Allergy Reactions Criticality Noted Date [...] BMI 28.37 Complicates care Current use of intermediate anticoagulation 025 Overview (05/27/2024): Resume home eliquis [...] SGT ICU Tertiary, ITSS, AUDIT-C completed 05/24 Favql-ej-lynxnwo kidney injury 05/23/2024 Overview (05/30/2024): Cr 2.92 [...] Department Care Team Description 08/24/2024 Patient Outreach [facility] Medicine Specialties [address], [address] [place] [address] Jm Al 07/16/2024 8:40 AM EDT Office Visit [facility] Orthopaedic Surgery & Sports Medicine [address], [address] [place] [address] Cornelio Burns MD Closed fracture of hip, unspecified laterality, sequela (Primary Dx) 07/16/2024 7:34 AM EDT - 07/16/2024 11:59 PM EDT Hospital Encounter [facility] Radiology [address], [address] [place] [address] Closed fracture of hip, unspecified laterality, sequela Discharge Disposition: Home or Self Care 07/16/2024 Travel 06/12/2024 9:30 AM EDT Office Visit [facility] Orthopa[facility] Surgery & Sports Medicine [address], [address] [place] [address] Bing Byers, COMMUNITY SPECIALIST Closed fracture of hip, unspecified laterality, sequela (Primary Dx) 06/12/2024 Telephone [facility] Surgery [facility] Medicine [address], [address] [place] [address] Bing Byers, COMMUNITY SPECIALIST HCN - Patient Message 06/12/2024 Travel 05/23/2024 6:14 AM EDT - 06/01/2024 3:23 PM EDT Hospital Encounter [facility] [address] [place] [address] Geoff White MD Griffen, Margaret M, MD Doud, MD Julianne Lacey Brittany N, MD Closed fracture of left hip, initial encounter ([facility]) (Primary Dx); COPD exacerbation ([facility]); Hyperkalemia; RAGHAV (acute kidney injury) ([facility]) Discharge Disposition: Shelter Facility from Last 3 Months Immunizations Immunization Administration Dates Next Due Hep B, adult 12/04/2018,07/12/2018,05/30/2018 Influenza Vaccine, Quadrival ent, Adjuvanted 11/26/2022 Influenza, Unspecified 12/01/2016 Influenza, high-dose, quadrivalent 04/05/2024 Influenza, injectable, quadr ivalent, preservative free 11/26/2022,03/06/2021,06/04/2017,12/20 Pneumococcal Polysaccharide PPV23 12/26/2015,10/2014 Family History Medical History Relation Name Comments Conversions - Other Cousin alpha-1- antitrypsin deficiency Conversions - Other Father's Brother alph k-7-tujufshqzse deficiency Conversions - Other Father's Sister alpha [...] any time in the past 12 m [facility], were you homeless or living in a usp (including now)? No 05/24/2024 CAGE ASSESSMENT Answer [...] drink first t michelet in the morning (EYE-STAFF CLIMATE SCIENTIST) to steady your nerves or to get [...] Description 09/24/2024 2:30 PM EDT Office Visit [facility]opa[facility] Surgery & Sports Medicine [address], [address] [place] [address] Cornelio Burns MD [address] [place] [address] Health Maintenance Due Date Last [...] - Risk 60-74 years 1-dose series) 2021 [id number] Vaccine (1 - 2023- season) 2023 FOBT [...] this topic Medical Devices Implanted Type Area Generating Station Mechanic Device Identifier Shelf Expiration Date Model / Serial / Lot Screw 10.5x85mm [employer] - Sna - [id number] Implanted:Qty: 1 on 05/24/2024 by Cornelio Burns MD at [facility] Screw Left: Femur [employer]-[id number] 05/24/2025 [id number] / NA / NA Screw 5x35mm Ti [employer] Lonnie Locking [employer] - Sna - [id number] Implanted:Qty: 1 on 05/24/2024 by Cornelio Burns MD at [facility] Screw Left: Femur [employer]-[id number] 05/24/2025 [id number] / NA / NA Ball-Tip Guidewire [id number] - [id number] Implanted:Qty: 1 on 05/24/2024 by Cornelio Burns MD at [facility] Left: Femur [employer]-[id number] 04/19/2031 [id number] / / Nail Ti Trochanteric 53v818ug 125deg Lt - [id number] Implanted:Qty: 1 on 05/24/2024 by Cornelio Burns MD at [facility] Left: Femur [employer]-[id number] 04/19/2034 [id number] / / Procedures Procedure Name Priority Date/Time Associated Diagnosis Comments XR HIP LEFT 2 OR 3 VIEWS Routine 07/16/2024 7:48 AM EDT Closed fracture of hip, unspecified laterality, sequela POCT GLUCOSE METER UNSOLICITED RESULTS Routine 06/01/2024 11:41 AM EDT POCT GLUCOSE METER UNSOLICITED RESULTS Routine 06/01/2024 7:26 AM EDT ED HIV 1/2 ANTIBODY/ANTIGEN SCREEN [...] on 07/16/2024 8:51 AM us Bing Byers COMMUNITY SPECIALIST IMG XR PROCEDURES Final Re sult * (ABNORMAL) POCT glucose meter (06/01/2024 11:41 AM EDT) Only the most recent of2 resultswithin the time period is included. POCT [...] Comment 06/01/2024 11:43 AM EDT [facility] Electronic Specialist ID Dayana Costa 025 11:43 AM EDT [facility] Device ID [id number] 06/01/2024 11:43 AM EDT [facility] Specimen Type POC Capillary 06/01/2024 11:43 AM EDT [facility] Blood Capillary blood specimen / Unknown 06/01/2024 11:41 AM EDT 06/01/2024 11:43 AM EDT Ashli Whitaker MD LAB POINT OF CARE TEST DOCKED DEVICE UNSOLICITED RESULTS Final Result [facility] [address] [place] [address] * ED HIV 1/2 Antibody/Antigen Screen w/Reflex to HIV 1/2 Differentiation (05/23/2024 6:52 AM EDT) HIV 1 & 2 Antibody/Antigen Screen Non Reactive Non Reactive 05/23/2024 7:41 AM EDT [facility] Comment:Screening for HIV 1 & 2 antibodies, and P24 antigen is NONREACTIVE. No confirmatory testing is required. Blood Venous blood specimen / Unknown Venipuncture / Unknown 05/23/2024 6:52 AM EDT 05/23/2024 7:01 AM EDT us Cornelio Burns MD LAB BLOOD ORDERABLES Final Re sult Performing Organization Address City/[facility]/ZIP Co de Phone Number [facility] [address] [place] [address] * (ABNORMAL) Hemoglobin A1c (05/23/2024 6:52 AM EDT) Hemoglobin A1c 7.8(H) <5.7 % 05/23/2024 5:13 PM EDT [facility] Blood Venous blood specimen / Unknown Venipuncture / Unknown 05/23/2024 6:52 AM EDT 05/23/2024 6:54 AM EDT Narrative [facility] - 05/23/2024 5:13 PM EDT HA1C Interpretive Data: Diagnosis of Diabetes: Diabetic > or = 6.5% Pre-diabetic 5.7 to 6.4% Non-diabetic < or = 5.6% Glycemic Targets for Type I and Type II Diabetics: Non- Adults <7.0% Adults <6.0% Children and Adolescents <7.5% Source: [place] [employer]. Standards of medical care in diabetes,2017. Diabetes Care.2017:40 (suppl 1):S1-S135. us Bing Byers APRN LAB BLOOD ORDERABLES Final Result Performing Organization Address [facility]/ZIP Co de Phone Number [facility] [address] [place] [address] * CT Chest wo IV Contrast (12/02/2019 [...] on Dec 02 2019 6:24A Transcribed by: [facility] on Dec 02 2019 5:43A Dictated by: [...] 9:34 AM 05/24/2024 10:01 AM Care Teams Sewer Head Relationship Specialty Start Date End Date Joshua Urban MD [address] [place] [address] PCP - General 06/27/20
--- OUTSIDE RECORDS SUMMARY | 2024-08-31 07:41 | XMS_ITS | Encounter Summary ---
Author Organization Healthcare Address [address] [place] [address] Care Team Providers Care Joint Creaser Name Role Phone Joshua Urban MD Primary Care Provider [phone] Tri Singletary TAX SERVICES PROFESSIONAL Unavailable Unavailable Encounter Details Date Type Department Care Team (Late Contact Info) Description 10/23/2016 Orders Only External Location [address] [place] [address] Provider, External Social History Tobacco Use Types [...] [facility] [address], [address] [place] [address] Cornelio Burns MD [address] [place] [address] documented as of this encounter Procedures Procedure [...] documented as of this encounter Care Teams Joint Creaser Relationship Specialty Start Date End Date Joshua Urban MD [address] [place] [address] PCP - General 06/27/20 Tri Singletary, [place] [address] Upfitter Mortuary Beautician 10/19/17 05/05/24 documented as of this encounter
--- OUTSIDE RECORDS SUMMARY | 2024-08-31 07:41 | XMS_ITS | Encounter Summary ---
Author Organization Healthcare Address [address] [place] [address] Care Team Providers Care Ems Manager Name Role Phone Joshua Urban MD Primary Care Provider [phone] Tri Singletary MOUNTING INSPECTOR Unavailable Unavailable Encounter Details Date Type Department Care Team (Late st Contact Info) Description 12/16/2017 Orders Only External Location [address] [place] [id number] Provider, External Social History Tobacco Use Types [...] Orth[facility] Surgery [facility] Medicine [address], [address] [place] [address] Cornelio Burns MD [address] [place] [address] documented as of this encounter Procedures Procedure [...] documented as of this encounter Care Teams Ems Manager Relationship Specialty Start Date End Date Joshua rUban MD [address] [place] [address] PCP - General 06/27/20 Tri Singletary, [place] [address] Registered Phlebotomist Part Time Diploma Maker 10/19/17 05/05/24 documented as of this encounter
--- OUTSIDE RECORDS SUMMARY | 2024-08-31 07:41 | XMS_ITS ---
Author Organization [facility] Address [address] [id number] Care Team Providers Care Roll Forming Machine Set Up Operator Name Role Phone Joshua Urban MD Primary Care Provider [phone] Hepatitis C Program Status:Closed (Closed) Start date:10/19/2017 Enrollment date:10/19/2017 Enrollment reason:HCV End date:08/24/2024 Close reason:HCV RNA Negative Overview Pt saw [facility] for [facility]. HCV RNA ND 09/25/22. Continued Care and Services Coordination
--- OUTSIDE RECORDS SUMMARY | 2024-08-31 07:41 | XMS_ITS | Encounter Summary ---
Author Organization Healthcare Address [address] [place] [address] Care Team Providers Care Dehydrogenation Operator Head Name Role Phone Joshua Urban MD Primary Care Provider [phone] Reason for Visit * Reason Onset Date Comments HCN - Patient Message 06/12/2024 Encounter Details Date Type Department Care Team (Late st Contact Info) Description 06/12/2024 Telephone [facility] Orthopaedic Surgery & Sports Medicine [address], 1[address] [place] [address] Bing Byers N, SOIL CONSERVATION TECHNICIAN [address] [place] [address] HCN - Patient Message Social [...] any time in the past 12 m [facility], were you homeless or living in a long term (including now)? No 05/24/2024 CAGE ASSESSMENT Answer [...] drink first t michelet in the morning (EYE-STORAGE WHARFAGE CLERK) to steady your nerves or to get rid of a hangover? 0 09/26/2022 CAGE Questionnaire Score 0 023 Utilities Answer Date Recorded In the past 12 months has th e [employer], gas, oil, or water company threatened to [...] Call: Patient saw Bing today. Odilia with [facility] wants to know what the wound care is for this patient. Do they do dressing changes or leave open to air? Please advise. Best contact number: Other: Odilia with [facility] [phone] Optimal time of day to reach caller: ANYTIME Additional comments/information from caller: None Note: Please do not reply to this message. Follow-up communication and further actions as a result of this message need to be communicated with the patient directly, if the patient is not active onMyChart. If the patient is active on MyChart, they will receive notification of the communication/outcome via [employer]. documented in this encounter Plan of Treatment Upcoming Encounters Date Type Department Care Team (Late st Contact Info) Description 09/24/2024 2:30 PM EDT Office Visit [facility] Orthopaedic Surgery & Sports Medicine [address], [address] [place] [address] Cornelio Burns MD [address] [place] [address] documented as of this encounter Visit Diagnoses Not on filedocumented in this encounter Additional Health Concerns Assessment Noted Time A fall risk assessment has been complete d for the patient 06/12/2024 9:30 AM EDT A Body Mass Index follow-up plan has been documented for the patient 06/12/2024 10:46 AM EDT documented as of this encounter Care Teams Dehydrogenation Operator Head Relationship Specialty Start Date End Date Joshua Urban MD [address] [place] [address] PCP - General 06/27/20 documented as of this encounter
--- OUTSIDE RECORDS SUMMARY | 2024-08-31 07:41 | XMS_ITS | Encounter Summary ---
Author Organization Healthcare Address [address] [place] [address] Care Team Providers Care Instructional Leader Name Role Phone Joshua Urban MD Primary Care Provider [phone] Tri Singletary CATALYST IMPREGNATOR Unavailable Unavailable Encounter Details Date Type Department Care Team (Late st Contact Info) Description 09/05/2017 Orders Only External Location [address] [place] [id number] Provider, External Social History Tobacco Use Types [...] Orthopaedic Surgery & Sports Medicine [address], 1st [address] [place] [address] Cornelio Burns MD [address] [place] [address] documented as of this encounter Procedures Procedure [...] documented as of this encounter Care Teams Instructional Leader Relationship Specialty Start Date End Date Joshua Urban MD [address] [place] [address] PCP - General 06/27/20 Tri Singletary, [place] [address] Consumer Loan Specialist Pit Operator 10/19/17 05/05/24 documented as of this encounter
--- OUTSIDE RECORDS SUMMARY | 2024-08-31 07:41 | XMS_ITS | Encounter Summary ---
Author Organization Healthcare Address [address] [place] [address] Care Team Providers Care Rn Wound Care Name Role Phone Joshua Urban MD Primary Care Provider [phone] Tri Singletary GROUNDS CREW SUPERVISOR Unavailable Unavailable Encounter Details Date Type Department Care Team (Late st Contact Info) Description 12/02/2019 Orders Only External Location [address] [place] [address] Provider, External Social History Tobacco Use Types [...] Orthopaedic Surgery & Sports Medicine [address], 1[address] [place] [address] Cornelio Burns MD [address] [place] [address] documented as of this encounter Procedures Procedure [...] documented as of this encounter Care Teams Rn Wound Care Relationship Specialty Start Date End Date Joshua Urban MD [address] [place] [address] PCP - General 06/27/20 Tri Singletary, [place] [address] Recycling Operations Manager Concrete Worker 10/19/17 05/05/24 documented as of this encounter
--- OUTSIDE RECORDS SUMMARY | 2024-08-31 07:41 | XMS_ITS | Encounter Summary ---
Author Organization Healthcare Address [address] [place] [address] Care Team Providers Care Basket Filler Name Role Phone Joshua Urban MD Primary Care Provider [phone] Tri Singletary SHEAR GRINDER OPERATOR Unavailable Unavailable Encounter Details Date Type Department Care Team (Late st Contact Info) Description 12/01/2019 Orders Only External Location [address] [place] [address] Provider, External Social History Tobacco Use Types [...] Description 09/24/2024 2:30 PM EDT Office Visit [facility] [address], [address] [place] [address] Cornelio Burns MD [address] [place] [address] documented as of this encounter Procedures Procedure [...] documented as of this encounter Care Teams Basket Filler Relationship Specialty Start Date End Date Joshua Urban MD [address] [place] [address] PCP - General 06/27/20 Tri Singletary, [place] [address] Emergency Services Professional Copier Field Service Technician 10/19/17 05/05/24 documented as of this encounter
--- OUTSIDE RECORDS SUMMARY | 2024-08-31 07:41 | XMS_ITS | Encounter Summary ---
Author Organization Healthcare Address [address] [place] [address] Care Team Providers Care Waterway Traffic Checker Name Role Phone Joshua Urban MD Primary Care Provider [phone] Encounter Details Date Type Department Care Team (Late st Contact Info) Description 05/23/2024 Orders Only External Location [address] [place] [address] Provider, External Social History Tobacco Use Types [...] any time in the past 12 m [facility], were you homeless or living [...] drink first t michelet in the morning (EYE-FLEET DISPATCH MANAGER) to steady your nerves or to get [...] Orthopaedic Surgery & Sports Medicine [address], [address] [place] [address] Cornelio Burns MD [address] [place] [address] documented as of this encounter [...] documented as of this encounter Care Teams Waterway Traffic Checker Relationship Specialty Start Date End Date Joshua Urban MD [address] [place] [address] PCP - General 06/27/20 documented as of this encounter
--- OUTSIDE RECORDS SUMMARY | 2024-08-31 07:41 | XMS_ITS | Encounter Summary ---
Author Organization Healthcare Address [address] [place] [address] Care Team Providers Care Maintenance Leader Name Role Phone Joshua Urban MD Primary Care Provider [phone] Tri Singletary E COMMERCE DEVELOPER Unavailable Unavailable Encounter Details Date Type Department Care Team (Late st Contact Info) Description 12/01/2019 Orders Only External Location [address] [place] [address] Provider, External Social History Tobacco Use Types [...] Description 09/24/2024 2:30 PM EDT Office Visit [facility] [address], [address] [place] [address] Cornelio Burns MD [address] [place] [address] documented as of this encounter Procedures Procedure [...] documented as of this encounter Care Teams Maintenance Leader Relationship Specialty Start Date End Date Joshua Urban MD [address] [place] [address] PCP - General 06/27/20 Tri Singletary, [place] [address] Competitive Shopper Donations Attendant 10/19/17 05/05/24 documented as of this encounter
--- OUTSIDE RECORDS SUMMARY | 2024-08-31 07:41 | XMS_ITS | Encounter Summary ---
Author Organization Healthcare Address [address] [place] [address] Care Team Providers Care Night Shift Name Role Phone Joshua Urban MD Primary Care Provider [phone] Encounter Details Date Type Department Care Team (Late st Contact Info) Description 08/24/2024 Patient Outreach [facility] [address], 2nd [place] [address] Nadine Al Social History Tobacco Use Types Packs/Day [...] any time in the past 12 m [facility], were you homeless or living in a long-term (including now)? No 05/24/2024 CAGE ASSESSMENT Answer [...] drink first t michelet in the morning (EYE-SWABBER) to steady your nerves or to get [...] Description 09/24/2024 2:30 PM EDT Office Visit [facility] Orthopaedic Surgery & Sports Medicine [address], [address] [place] [address] Cornelio Burns MD [address] [place] [address] documented as of this encounter Visit Diagnoses Not on filedocumented in this encounter Additional Health Concerns Assessment Noted Time A fall risk assessment has been complete d for the patient 07/16/2024 7:58 AM EDT A Body Mass Index follow-up plan has been documented for the patient 07/16/2024 8:28 AM EDT documented as of this encounter Care Teams Night Shift Relationship Specialty Start Date End Date Joshua Urban MD [address] [place] [address] PCP - General 06/27/20 documented as of this encounter
--- OUTSIDE RECORDS SUMMARY | 2024-08-31 07:41 | XMS_ITS | Encounter Summary ---
Author Organization Healthcare Address [address] [place] [address] Care Team Providers Care Storm Window Installer Name Role Phone Joshua Urban MD Primary Care Provider [phone] Tri Singletary GROUND WATER PUMP INSTALLER Unavailable Unavailable Encounter Details Date Type Department Care Team (Late st Contact Info) Description 10/01/[address] [facility] [address] [place] [address] Mitchel Ivey PA [address] [place] [address] Routine general medical examination at [...] drink first t michelet in the morning (EYE-SEMICONDUCTOR WAFER INSPECTOR) to steady your nerves or to get [...] Orthopaedic Surgery & Sports Medicine [address], [address] [place] [address] Cornelio Burns MD [address] [place] [address] documented as of this encounter Procedures Procedure Name Priority Date/Time Associated Diagnosis Comments MORPHOLOGY Routine 10/01/2022 6:39 AM EDT Routine general medical examination at a [facility] care facility MANUAL DIFFERENTIAL Routine 10/01/2022 6 :39 AM EDT Routine general medical examination at a [facility] care facility ACUTE HEPATITIS PANEL Routine 10/01/2022 6:39 AM EDT Routine general medical examination at a [facility] care facility CBC WITH AUTO DIFFERENTIAL Routine 10/01/2022 6:39 AM EDT Routine general medical examination at a [facility] care facility HEMOGLOBIN A1C Routine 10/01/2022 6:39 AM EDT Routine general medical examination at a [facility] care facility LIPID PROFILE, PLASMA Routine 10/01/2022 6:37 AM EDT Routine general medical examination at a [facility] care facility COMPREHENSIVE METABOLIC PANEL, PLASMA Routine 10/01/2022 6:37 AM EDT Routine general medical examination at a [facility] care facility documented in this [...] BLOOD ORDERABLES Final Resul t [facility] [address] [place], [place] [id number] * (ABNORMAL) Manual Differential (10/01/2022 6:39 AM [...] Lymphoma Cells Absolute 10/01/2022 10:17 AM EDT [facility] Hairy Cells Absolute 10/01/2022 10:17 AM EDT [facility] Other Cells Absolute 10/01/2022 10:17 AM EDT [facility] Blood Venous blood specimen / Unknown Venipuncture / Unknown 10/01/2022 6:39 AM EDT 10/01/2022 7:43 AM EDT us Mitchel HOLLY LAB BLOOD ORDERABLES Final Resul t [facility] [address] [place] [address] * (ABNORMAL) CBC and Differential (10/01/2022 6:39 AM EDT) WBC Count 11.58(H) 3.70 - 10.30 10*3/uL LAB HEMATOLOGY METHOD 10/01/2022 10:17 AM EDT [facility] RBC Count 4.62 3.90 - 5.20 10*6/uL LAB HEMATOLOGY METHOD 10/01/2022 10:17 AM EDT [facility] HGB 13.0 11.2 - 15.7 g/dL LAB HEMATOLOGY METHOD 10/01/2022 10:17 AM EDT [facility] HCT 41.1 34.0 - 45.0 % LAB HEMATOLOGY METHOD 10/01/2022 10:17 AM EDT [facility] Platelet Count 299 155 - 369 10*3/uL LAB HEMATOLOGY METHOD 10/01/2022 10:17 AM EDT [facility] MCV 89 79 - 98 fL LAB HEMATOLOGY METHOD 10/01/2022 10:17 AM EDT [facility] MCH 28.1 26.0 - 32.0 pg LAB HEMATOLOGY METHOD 10/01/2022 10:17 AM EDT [facility] MCHC 31.6 30.7 - 35.5 g/dL LAB HEMATOLOGY METHOD 10/01/2022 10:17 AM EDT [facility] RDW 14.6(H) 11.5 - 14.5 % LAB HEMATOLOGY METHOD 10/01/2022 10:17 AM EDT [facility] MPV 10.0 8.8 - 12.5 fL LAB HEMATOLOGY METHOD 10/01/2022 10:17 AM EDT [facility] nRBC 0.0 <=0.0 per 100 WBCs LAB HEMATOLOGY METHOD 10/01/2022 10:17 AM EDT [facility] Differential Type Manual LAB HEMATOLOGY METHOD 10/01/2022 10:17 AM EDT [facility] Blood Venous blood specimen / Unknown Venipuncture / Unknown 10/01/2022 6:39 AM EDT 10/01/2022 7:43 AM EDT [facility] - 10/01/2022 10:17 AM EDT [...] ORDERABLES Final Resul t Performing Organization Address [facility] de Phone Number [facility] [address] [place] [address] * (ABNORMAL) Hemoglobin A1c (10/01/2022 6:39 AM EDT) Hemoglobin A1c 9.3(H) <5.7 % 10/01/2022 11:19 AM EDT [facility] Blood Venous blood specimen / Unknown Venipuncture / Unknown 10/01/2022 6:39 AM EDT 10/01/2022 7:44 AM EDT [facility] - 10/01/2022 11:19 AM EDT HA1C Interpretive Data: Diagnosis of Diabetes: Diabetic > or = 6.5% Pre-diabetic 5.7 to 6.4% Non-diabetic < or = 5.6% Glycemic Targets for Type I and Type II Diabetics: Non- Adults <7.0% Adults <6.0% Children and Adolescents <7.5% Source: [place] Diabetes [employer]. Standards of medical care in diabetes,2017. Diabetes Care.2017:40 (suppl 1):S1-S135. HbA1c assay performed by an ion-exchange chromatography method that is certified traceable to the DCCT. Mitchel HOLLY [facility] BLOOD ORDERABLES Final Resul t Performing Organization Address [facility] Co de Phone Number [facility] [address] [place] [address] * Hepatitis panel, acute (10/01/2022 6:39 AM EDT) Hepatitis B Surf Antigen Negative Negative 10/01/2022 11:42 AM EDT [facility] Hepatitis A Antibody IgM Negative Negative 10/01/2022 11:42 AM EDT [facility] Hepatitis B Core Antibody IgM Negative Negative 10/01/2022 11:42 AM EDT [facility] Blood Venous blood specimen / [...] BLOOD ORDERABLES Final Resul t [facility] [address] [place] [address] * (ABNORMAL) Lipid panel (10/01/2022 6:37 AM EDT) Cholesterol, Plasma 219(H) <200 mg/dL 10/01/2022 10:12 AM EDT [facility] Comment: Cholesterol Reference Range (age >17 years): Desirable <200 mg/dL Borderline 200 to 239 mg/dL Undesirable >239 mg/dL HDL 82 >=50 mg/dL 10/01/2022 10:12 AM EDT [facility] Comment: HDL Cholesterol Reference Ranges (age >17 years): Female, acceptable > or = 50 mg/dL Male, acceptable > or = 40 mg/dL Triglycerides, Plasma 172(H) <150 mg/dL 10/01/2022 10:12 AM EDT [facility] Comment: Triglyceride Reference Range (age >17 years): Desirable: <150 mg/dL Borderline high: 150 to 199 mg/dL High: 200 to 499 mg/dL Very high: >499 mg/dL Increased risk of pancreatitis: >1000 mg/dL Cholesterol/HDL Ratio 3 10/01/2022 10:12 AM EDT [facility] LDL, Calculated 108(H) <100 mg/dL 10:12 AM EDT [facility] Comment: LDL Cholesterol Reference Range [...] 12 hours? Unknown 10/01/2022 10:12 AM EDT [facility] Blood Venous blood specimen / Unknown Venipuncture / Unknown 10/01/2022 6:37 AM EDT 10/01/2022 7:49 AM EDT us Mitchel HOLLY LAB BLOOD ORDERABLES Final Resul t [facility] [address] [place] [id number] * (ABNORMAL) Comprehensive metabolic panel (10/01/2022 6:37 AM EDT) Glucose, Plasma 364(H) 74 - 99 mg/dL 10/01/2022 10:12 AM EDT [facility] BUN, Plasma 43(H) 8 - 23 mg/dL 10/01/2022 10:12 AM EDT [facility] Creatinine, Plasma 1.02 0.60 - 1.10 mg/dL 10/01/2022 10:12 AM EDT [facility] BUN/Creatinine Ratio 42 10/01/2022 10:12 AM EDT [facility] Sodium, Plasma 140 136 - 145 mmol/L 10/01/2022 10:12 AM EDT [facility] Potassium, Plasma 5.0(H) 3.7 - 4.8 mmol/L 10/01/2022 10:12 AM EDT [facility] Chloride, Plasma 107 97 - 107 mmol/L 10/01/2022 10:12 AM EDT [facility] CO2, Plasma 27 22 - 29 mmol/L 10/01/2022 10:12 AM EDT [facility] Anion Gap 6 6 - 16 mmol/L 10/01/2022 10:12 AM EDT [facility] Total Calcium, Plasma 9.8 8.9 - 10.2 mg/dL 10/01/2022 10:12 AM EDT [facility] Total Protein 6.5 6.3 - 7.9 g/dL 10/01/2022 10:12 AM EDT [facility] Albumin, Plasma 3.3(L) 3.5 - 5.2 g/dL 10/01/2022 10:12 AM EDT [facility] AST, Plasma 67(H) 9 - 36 U/L 10/01/2022 10:12 AM EDT [facility] ALT, Plasma 67(H) 8 - 33 U/L 10/01/2022 10:12 AM EDT [facility] Alkaline Phosphatase, Plasma 103 46 - 142 U/L 10/01/2022 10:12 AM EDT [facility] Total Bilirubin, Plasma 0.3 0.2 - 1.1 mg/dL 10/01/2022 10:12 AM EDT [facility] eGFRcr 62.7 mL/min/1.7 3m*2 10/01/2022 10:12 AM EDT [facility] Comment:Reported eGFRcr in m L/min/1.73m2 is based the CKD-EPI 2020 equation that does not use a race coefficient. Blood Venous blood specimen / Unknown Venipuncture / Unknown 10/01/2022 6:37 AM EDT 10/01/2022 7:49 AM EDT us Mitchel HOLLY [facility] BLOOD ORDERABLES Final Resul t [facility] [address] [place] [address] documented in this encounter Visit Diagnoses Diagnosis Routine general medical examination at a health care facility documented in this encounter Care Teams Storm Window Installer Relationship Specialty Start Date End Date Joshua Urban MD [address] [place] [address] PCP - General 06/27/20 Tri Singletary, [place] [address] Diesel Service Technician Hand Sewer 10/19/17 05/05/24 documented as of this encounter
--- OUTSIDE RECORDS SUMMARY | 2024-08-31 07:41 | XMS_ITS | Referral Summary ---
Author Organization [employer] ([place], [place], [place], [place]) Address [address] [place] [address] Care Team Providers Care Disability Insurance Claim Examiner Name Role Phone [facility], Provider Not In The System MD [...] Do you speak a language other than Venezuelan at ho de? No 06/20/2023 Do you want help with [...] Plan of Treatment Not on file Insurance [facility] ADV MEDICAID [id number] Advance Directives For more information, please contact: [phone] * Full Code (Latest Code Status on File) Date Activated Date Inactivated Comments 06/19/2023 11:00 PM 06/30/2023 2:30 PM Care Teams Disability Insurance Claim Examiner Relationship Specialty Start Date End Date [facility], Provider Not In The System, [place] [address] PCP - General 06/20/23
--- NOTE | 2024-08-31 07:48 | EXP.PHA.CONS ---
Pharmacy Consult Date: 08/31/24 Time: 07:48 Referring provider: DR. SIDHU Reason for Consult:: VANCOMYCIN DOSING Allergies Allergy/AdvReac Type Severity Reaction Status Date / Time methocarbamol Allergy Severe Altered Verified 08/13/24 14:16 mental status terbutaline (TERBUTALINE) Allergy Severe SWELLS Verified 08/13/24 14:16 THROAT aspirin (ASPIRIN) Allergy Intermediate I-RASH Verified 08/13/24 14:16 codeine (CODEINE) Allergy Intermediate Swelling Verified 08/13/24 14:16 of the Eye diphenhydramine (From Allergy Intermediate Hives Verified 08/13/24 14:16 Benadryl) Sulfa (Sulfonamide Allergy Intermediate Hives Verified 08/13/24 14:16 Antibiotics) (SULFA (SULFONAMIDE ANTIBIOTICS)) sulfamethoxazole (From Allergy Intermediate Hives Verified 08/13/24 14:16 Bactrim) trimethoprim (From Bactrim) Allergy Intermediate Hives Verified 08/13/24 14:16 naproxen (NAPROXEN) Allergy Mild itching Verified 08/13/24 14:16 tramadol (TRAMADOL) Allergy Mild Vomiting Verified 08/13/24 14:16 citalopram (CITALOPRAM) Allergy Unknown SKIN PEEL Verified 08/13/24 14:16 erythromycin base Allergy Unknown I-RASH Verified 08/13/24 14:16 (ERYTHROMYCIN BASE) Penicillins (PENICILLINS) Allergy Unknown I-RASH Verified 08/13/24 14:16 fluticasone (From Advair Allergy Unknown Verified 08/13/24 14:16 Diskus) allergy reaction salmeterol (From Advair Allergy Unknown Verified 08/13/24 14:16 Diskus) allergy reaction bupropion (BUPROPION) AdvReac Severe Hallucinati Verified 08/13/24 14:16 ng duloxetine (DULOXETINE) AdvReac Severe Hallucinati Verified 08/13/24 14:16 ng pregabalin (PREGABALIN) AdvReac Severe Hallucinati Verified 08/13/24 14:16 ng celecoxib (From CELEBREX) AdvReac Mild Vomiting Verified 08/13/24 14:16 Home Medications ?Medication ?Instructions ?Recorded ?Confirmed ?Type apixaban 5 mg tablet (Eliquis) 5 mg PO BID Blood Thinner 09/06/22 08/30/24 History bumetanide 2 mg tablet 2 mg PO DAILY 08/23/23 08/30/24 History Held on 09/06/23. Instructions: Pending decrease in stool burden insulin lispro 100 unit/mL 1 sliding scale dose SQ 08/23/23 08/30/24 History subcutaneous pen (Admelog SoloStar USEASDIRECTD U-100 Insulin lispro) atorvastatin 10 mg tablet 10 mg PO HS 09/03/23 08/30/24 History isosorbide mononitrate 30 mg 30 mg PO DAILY 09/03/23 08/30/24 History tablet,extended release 24 hr ipratropium 0.5 mg-albuterol 3 mg 3 ml inhalation Q6HP PRN SHORTNESS 09/04/23 08/30/24 History (2.5 mg base)/3 mL nebulization OF BREATH/WHEEZING soln lidocaine 5 % topical patch 1 patch topical DAILY 09/16/23 08/30/24 History (Lidoderm) guaifenesin 600 mg tablet, 600 mg PO BID 12/01/23 08/30/24 History extended release 12 hr (Mucus Relief ER) insulin glargine-yfgn 100 unit/mL 1 unit SQ HS 12/01/23 08/30/24 History (3 mL) subcutaneous pen insulin glargine-yfgn 100 unit/mL unit SQ 12/01/23 08/03/24 History subcutaneous solution pen needle,diabetic dual safty 30 #100 ea 12/01/23 08/03/24 History gauge x 3/16 (BD AutoShield Duo Pen Needle) polyethylene glycol 3350 17 17 g PO DAILY 12/01/23 08/30/24 History gram/dose oral powder (ClearLax) gabapentin 300 mg capsule 300 mg PO TID 30 days #90 caps 12/29/23 08/30/24 Rx acetaminophen 500 mg capsule 500 mg PO Q6H PRN Pain, Mild 03/05/24 08/30/24 History famotidine 20 mg tablet 20 mg PO HS 03/05/24 08/30/24 History buspirone 10 mg tablet 10 mg PO BID 06/13/24 08/30/24 History oxycodone-acetaminophen 5 mg-325 7.5 tab PO TID 07/04/24 08/30/24 History mg tablet sertraline 100 mg tablet 100 mg PO DAILY 07/04/24 08/30/24 History aripiprazole 10 mg tablet 10 mg PO DAILY 08/03/24 08/30/24 History fluticasone fur. 100 mcg-umeclid 1 inh inhalation DAILY 08/03/24 08/30/24 History 62.5 mcg-vilant 25 mcg inhalat.powder (Trelegy Ellipta) telmisartan 40 mg tablet 40 mg PO DAILY 08/03/24 08/30/24 History dapagliflozin propanediol 5 mg 5 mg PO DAILY 08/30/24 08/30/24 History tablet (Farxiga) metoprolol tartrate 25 mg tablet 25 mg PO BID 08/30/24 08/30/24 History New Prescriptions to Start Prescriptions: Height: 1.65 m Weight: 85.275 kg Laboratory Results:: Laboratory Results - last 24 hr 08/30/24 13:57: WBC 22.4 H*, RBC 4.34, Hgb 11.0 L, Hct 36.6 L, MCV 84.3, MCH 25.3 L, MCHC 30.1 L, RDW 15.9, Plt Count 335, MPV 9.7, Neut % (Auto) 78.0, Lymph % (Auto) 12.4, Armstrong % (Auto) 8.4, Eos % (Auto) 0.2, Baso % (Auto) 0.4, Neut # (Auto) 17.4 H, Lymph # (Auto) 2.8, Armstrong # (Auto) 1.9 H, Eos # (Auto) 0.0, Baso # (Auto) 0.1, Total Counted 100, Neutrophils % (Manual) 79 H, Lymphocytes % (Manual) 11, Atypical Lymphs % 1.0, Monocytes % (Manual) 9, Platelet Estimate Normal, Microcytosis 1+, Sodium 140, Potassium 4.4, Chloride 103, Carbon Dioxide 31 H, Anion Gap 10.4, BUN 39 H, Creatinine 1.40 H, Estimated Creat Clear 50, Estimated GFR 38 L, Est GFR ( Amer) 46 L, Glucose 74, Calcium 9.4, Magnesium 1.5 L, Total Bilirubin 0.7, AST 30, ALT 18, Alkaline Phosphatase 203 H, Troponin I 0.02, C-Reactive Protein 51.8 H, NT-Pro-B Natriuret Pep 3560 H, Total Protein 8.1, Albumin 3.7, Globulin 4.4 H, Albumin/Globulin Ratio 0.8 L, Procalcitonin 0.183, Chlamy pneumoniae PCR Not detected, Adenovirus (PCR) Not detected, B. pertussis DNA (PCR) Not detected, Coronavirus OC43 (PCR) Not detected, Coronavirus HKU1 (PCR) Not detected, Coronavirus 229E (PCR) Not detected, SARS-CoV-2 (PCR) Not detected, Coronavirus NL63 (PCR) Not detected, Human Metapneumovir PCR Not detected, Influenza A (H1) PCR Not detected, Influ A (H1N1/09) PCR Not detected, Influenza A (H3) PCR Not detected, Influenza Type A (PCR) Not detected, Influenza Type B (PCR) Not detected, M. pneumoniae (PCR) Not detected, Parainfluenza 1 (PCR) Not detected, Parainfluenza 2 (PCR) Not detected, Parainfluenza 3 (PCR) Not detected, Parainfluenza 4 (PCR) Not detected, RSV (PCR) Not detected, Entero/Rhino (PCR) Not detected 08/30/24 14:17: VBG pH 7.36, VBG pCO2 50.2, VBG pO2 42.8 H, VBG HCO3 27.5, VBG Total CO2 29.1 H, VBG O2 Saturation 79.4 H, VBG Base Excess 2.0, VBG Lactic Acid 1.1 08/30/24 17:17: Troponin I 0.02 08/30/24 20:14: POC Glucose 113 H 08/30/24 20:52: Troponin I 0.02 08/31/24 02:43: Urine Color Yellow, Urine Appearance Slightly cloudy, Urine pH 6.0, Ur Specific [place] 1.025, Urine Protein 3+ A, Urine Glucose (UA) 1+, Urine Ketones Negative, Urine Blood 2+ A, Urine Nitrate Negative, Urine Bilirubin Negative, Urine Urobilinogen 0.2, Ur Leukocyte Esterase Negative, Urine RBC 5-10, Urine WBC 3-5, Ur Squamous Epith Cells 3-5, Amorphous Sediment 2+, Urine Bacteria 3+, Urine Mucus 1+, MRSA (PCR) Positive A 08/31/24 04:56: WBC 25.2 H*, RBC 3.55 L, Hgb 8.9 L D, Hct 30.0 L, MCV 84.5, MCH 25.1 L, MCHC 29.7 L, RDW 15.7, Plt Count 281, MPV 10.0, Neut % (Auto) 86.5 H, Lymph % (Auto) 5.4 L, Armstrong % (Auto) 6.6, Eos % (Auto) 0.0 L, Baso % (Auto) 0.2, Neut # (Auto) 21.7 H, Lymph # (Auto) 1.4, Armstrong # (Auto) 1.7 H, Eos # (Auto) 0.0, Baso # (Auto) 0.1, Total Counted 100, Neutrophils % (Manual) 88 H, Band Neutrophils % 4, Lymphocytes % (Manual) 5 L, Atypical Lymphs % Not Reportable, Monocytes % (Manual) 2, Platelet Estimate Not Reportable, RBC Morphology Not Reportable, ESR 111 H, Sodium 139, Potassium 4.2, Chloride 104, Carbon Dioxide 25, Anion Gap 14.2, BUN 41 H, Creatinine 1.80 H D, Estimated Creat Clear 39, Estimated GFR 28 L, Est GFR ( Amer) 34 L D, Glucose 274 H D, Hemoglobin A1c 8.7 H, Lactate 1.5, Calcium 8.7, Magnesium 2.0 D, Total Bilirubin 0.4, AST 23, ALT 15, Alkaline Phosphatase 135 H, Lactate Dehydrogenase 151 L, C-Reactive Protein 104.4 H, Total Protein 6.3, Albumin 2.9 L D, Globulin 3.4 H, Albumin/Globulin Ratio 0.9 L, Procalcitonin 1.14 08/31/24 06:21: POC Glucose 268 H Medical History: Medical History (Updated 08/30/24 @ 14:43 by John Dan MD) Pneumonia Lung nodule Pulmonary Langerhans cell granulomatosis Encounter for screening for malignant neoplasm of lung History of smoking 30 or more pack years Vocal cord dysfunction Community acquired pneumonia Acute on chronic diastolic (congestive) heart failure Lumbar compression fracture RAGHAV (acute kidney injury) C. difficile colitis Cough Hyperkalemia Chronic respiratory failure with hypoxia COPD mixed type Elevated liver enzymes Paroxysmal atrial fibrillation Acute on chronic heart failure with preserved ejection fraction (HFpEF) Suicidal ideation Depression with suicidal ideation Abnormality of lung on CXR Acute and chronic respiratory failure with hypoxia Chest pain Abnormal ankle brachial index (DAVE) Pyelonephritis Restless leg syndrome Hepatitis B Depression Anxiety Chronic kidney disease Sleep apnea Migraine History of transient ischemic attack (TIA) History of hip fracture History of gastroesophageal reflux (GERD) Diabetes mellitus, type 2 Hyperlipidemia Congestive heart failure Nonspecific chest pain Hip fracture Failure to thrive Closed femur fracture Instability of left knee joint Left knee pain Vaginal pain Abnormal computed tomography angiography (CTA) of abdomen and pelvis Claudication Decreased pedal pulses Other specified symptoms and signs involving the circulatory and respiratory systems Acquired hammer toes of both feet Chronic deep vein thrombosis (DVT) of right lower extremity Primary osteoarthritis of both feet Overweight (BMI 25.0-29.9) Acute worsening of stage 3 chronic kidney disease Diabetes mellitus with neuropathy Left leg swelling Lymphedema Plantar fasciitis, left Foot pain, left Obesity (BMI 30.0-34.9) Sepsis Osteoarthritis of feet, bilateral Diabetic peripheral neuropathy associated with type 2 diabetes mellitus Onychoincurvatum Hepatitis C Chest pain Normal coronary arteries Foot pain, right COPD (chronic obstructive pulmonary disease) DVT (deep venous thrombosis) Cellulitis of right foot Hep B w/o coma Hep C w/o coma, chronic Endothelial dysfunction of coronary artery Elevated left ventricular end-diastolic pressure (LVEDP) Cauda equina syndrome ANNIE on CPAP Langerhan's cell histiocytosis SOB (shortness of breath) on exertion Atrial fibrillation HTN (hypertension) PAD (peripheral artery disease) Abdominal pain Diabetes mellitus Renal insufficiency Acute exacerbation of chronic obstructive airways disease Neck Pain Back pain Assessment and Plan Assessment and plan all Dx Assessment and Plan for all problems:: Pharmacokinetic dosing service Objective: Patient: Floor: Age: 64 yo Serum creatinine: 1.80 mg/dL Height: 65.0 Inches Weight (kg): 85.3 Assessment: IBW (kg): 57.00 Dosing wt(kg): 85.3 Estimated Creatinine clearance (ml/min): 28.8 CRCL method: Cockcroft and Gault using ibw(default). Drug selected: Vancomycin Loading dose (mg): Vd (liters): 68.2 (factor used: 0.8 L/kg) Jeb (hr-1): 0.028 Half life (hrs): 24.76 CLvanco=?? 1.910 L/hr Recommended dose: 1500 mg Interval: 36 hrs Infusion time (hrs): 2.0 Predicted peak (mcg/mL): 33.7 Predicted trough (mcg/mL): 13.01 Total body weight is being used for vancomycin dosing. Recommendations: Give Vancomycin 1500 mg q 36 hrs with an expected Cpeak of 33.7 mcg/ml and an expected Ctrough of 13.01 mcg/ml AUC 0-24 /GARRISON Data: GARRISON 0.5 mcg/mL:?? AUC/GARRISON:? 1047.1 GARRISON 1.0 mcg/mL:?? AUC/GARRISON:? 523.6 --------- GARRISON 1.5 mcg/mL:?? AUC/GARRISON:? 349.0 GARRISON 2.0 mcg/mL:?? AUC/GARRISON:? 261.8 Thank you for the consult, will continue to follow. -EVON ZEE, RUELD
--- NOTE | 2024-08-31 08:27 | HMH.PTEV ---
Physical Therapy Evaluation Rehab PT IP Evaluation Start: 08/30/24 18:50 Freq: ONCE Status: Active Protocol: Document 08/31/24 08:20 SILVESTRE (Rec: 08/31/24 08:27 SILVESTRE [id number]) Subjective/History History History Per H&P: Jania Bartlett is a 64-year-old female with a medical history of COPD on 2 L baseline, greater than 30 pack smoking history, HFpEF, insulin-dependent diabetes, hypertension, anxiety/depression, who presents with 2-week onset of progressive shortness of breath and cough. Patient states that she is not able to cough up anything, but does endorse right-sided pleuritic chest pain and now generalized chest pain from coughing. Also endorses nonspecific generalized abdominal pains, denies fever/chills. States her lower extremity edema is at baseline. Workup in the ED significant for WBC 22.4, CRP 51.8, procalcitonin normal, CTA chest revealing right lower lobe pneumonia. Patient is also tachypneic and now requiring 4 L nasal cannula. Patient was given ceftriaxone, azithromycin. Fluids were held due to suspicion of fluid overload. Case discussed by ED provider initially was made to admit patient for sepsis secondary to community-acquired pneumonia. Subjective Subjective PLOF: Ambulatory using a RW and SBA. Primarily uses a w /c for longer community distances. HOME: Lives at [facility] where she has been since December. New diagnosis of No cancer in past 12 months? [facility] How much help from another person do you currently need... Turning from your A little back to your side while in a flat bed without using bedrails? Moving from lying on A little back to sitting on the side of a flat bed without using bedrails? Moving to and from a A little bed to a chair ( including a wheelchair)? Standing up from a A little chair using your arms? (e.g., wheelchair, bedside chair) Walking in hospital A little room? Climbing 3-5 steps A lot with a railing? Mobility Score 17 Mobility Level [place]s Mobility 5 Stand (1 or more minutes) Mobility Calculator Rehab PT IP Eval Objective Appearance Patient Behavior Appropriate,Cooperative Patient Orientation Person,Place,Situation Difficulty following none instructions Speech Pattern Clear Ambulation Patient Able to Yes Ambulate Ambulation Observation IP General Gait Wide Based Gait Pattern Observation Ambulation Distance 3 (feet) Ambulation Assistive Rolling Walker Device Ambulation Ability Contact Guard/Hand Hold Balance Ability to Arise Able, uses arms to help Sitting Balance Steady, safe Standing Balance Unsteady Dynamic Sitting Good Balance Ability Dynamic Standing Poor Balance Ability Transfers Bed Transfer Ability Supervision/Stand by Sit to Stand Bed Contact Guard/Hand Hold Transfer Ability Rehab PT IP prob,goals,plan Problems Date of Evaluation: 08/31/24 PT IP Problems Bed Mobility,Transfers,Gait,Balance,Self care,Safety Rehab Potential Rehab Potential Good Plan PT Intervention Plan Bed Mobility,Transfers,Gait,Balance,Self care,Safety, Therapeutic Exercise Other Intervention 1-2 times Plan PT Plan Frequency Daily Duration LOS Discharge Goals Bed Transfer Ability Independent Sit to Stand Chair Independent Transfer Ability Ambulation Assistive Rolling Walker Device Ambulation Distance 15 (feet) Discharge Plan PT Discharge Plan Pt presents below baseline in ambulation and transfers. Pt demo'd impaired endurance. Pt was able to demo a stand-step transfer with CGA-Min A. Pt most appropriate to d/c back to residential where she will receive supervision/assistance. PT recommending pt receive PT services at residential to address ambulation and strength deficits. Pt would benefit from skilled acute care PT to address deficits and prevent further functional decline while at [facility]. Eval Complexity Eval Charge Codes 01774 - Moderate Complexity PHYSICIAN CERTIFICATION: I certify the specified therapy services for Kassy Bartlett are required, authorized, and reviewed every 30 days.
[2024-08-31] MEDS: CEFEPIME HCL 2 GM in 0.9 % SODIUM CHLORIDE 100 ML IV ×2 (08:37→20:23)
--- NOTE | 2024-08-31 08:48 | SW/DCPLANNER ---
Patient currently resides at [facility] level of care. I will continue to follow up w/ Sarai at [facility] until medically stable for discharge. Discharge date is unknown at this time.
--- NOTE | 2024-08-31 09:05 | P.CONPHA_ITS ---
Pharmacy Intervention Comments: MEDICATION RECONCILIATION COMPLETED ON PATIENT USING MAR FROM [facility]. -EVON ZEE, RUELD
--- NOTE | 2024-08-31 09:05 | HMH.PHAINT1 ---
Pharmacy Intervention Comments: MEDICATION RECONCILIATION COMPLETED ON PATIENT USING MAR FROM [facility]. -EVON ZEE, RUELD
--- NOTE | 2024-08-31 09:11 | EXP.PULM.CON ---
History of Present Illness History of present illness: Ms. Bartlett is a 64-year-old female greater than [id number] smoking history severe COPD chronic hypoxic respiratory failure, pulmonary langerhan cell histiocytosis, heart failure preserved EF presented to ER with worsening respiratory distress pleuritic chest pain admitted to the hospital and pulmonary was called for further evaluation and management. Admit progressively worsening respiratory distress with cough and productive phlegm. Stopped smoking, has not smoked in the last 4 weeks. Status post completion of 5 days of levofloxacin from 08/03/2024 with worsening infiltrates. [facility] Disclaimer: The information contained in this section may have been updated after the patient was seen, as this information can be updated by other users. Medical History Pneumonia Lung nodule Pulmonary Langerhans cell granulomatosis Encounter for screening for malignant neoplasm of lung History of smoking 30 or more pack years Vocal cord dysfunction Community acquired pneumonia Acute on chronic diastolic (congestive) heart failure Lumbar compression fracture RAGHAV (acute kidney injury) C. difficile colitis Cough Hyperkalemia Chronic respiratory failure with hypoxia COPD mixed type Elevated liver enzymes Paroxysmal atrial fibrillation Acute on chronic heart failure with preserved ejection fraction (HFpEF) Suicidal ideation Depression with suicidal ideation Abnormality of lung on CXR Acute and chronic respiratory failure with hypoxia Chest pain Abnormal ankle brachial index (DAVE) Pyelonephritis Restless leg syndrome Hepatitis B Depression Anxiety I think this patient's anxiety is partially related to cognitive deficits. She may well have beginning dementia. She has been cared for by her daughter. Will just follow this closely. Chronic kidney disease Sleep apnea Migraine History of transient ischemic attack (TIA) History of hip fracture History of gastroesophageal reflux (GERD) Diabetes mellitus, type 2 Hyperlipidemia Congestive heart failure Nonspecific chest pain Hip fracture Failure to thrive Closed femur fracture Instability of left knee joint Left knee pain Vaginal pain Abnormal computed tomography angiography (CTA) of abdomen and pelvis Claudication Decreased pedal pulses Other specified symptoms and signs involving the circulatory and respiratory systems Acquired hammer toes of both feet Chronic deep vein thrombosis (DVT) of right lower extremity Primary osteoarthritis of both feet Overweight (BMI 25.0-29.9) Acute worsening of stage 3 chronic kidney disease Diabetes mellitus with neuropathy Left leg swelling Lymphedema Plantar fasciitis, left Foot pain, left Very concerned about the possibility of fracture in this patient. Will send her for x-rays. Obesity (BMI 30.0-34.9) Sepsis Osteoarthritis of feet, bilateral Diabetic peripheral neuropathy associated with type 2 diabetes mellitus Onychoincurvatum Hepatitis C Chest pain Normal coronary arteries Foot pain, right COPD (chronic obstructive pulmonary disease) DVT (deep venous thrombosis) Cellulitis of right foot Hep B w/o coma Hep C w/o coma, chronic Endothelial dysfunction of coronary artery Elevated left ventricular end-diastolic pressure (LVEDP) Cauda equina syndrome ANNIE on CPAP Langerhan's cell histiocytosis SOB (shortness of breath) on exertion Atrial fibrillation HTN (hypertension) PAD (peripheral artery disease) Abdominal pain Diabetes mellitus Renal insufficiency Acute exacerbation of chronic obstructive airways disease Neck Pain Back pain Surgical History History of surgery on right wrist History of hip surgery Hx of tonsillectomy History of cholecystectomy History of appendectomy History of hysterectomy History of cardiac cath Family History Other Coronary artery disease Family history of diabetes mellitus type II Family history of hyperlipidemia Family history of hypertension Social History Smoking Status: Current every day smoker tobacco type: cigarettes packs per day: 2 second hand exposure: Yes alcohol intake: never counseling provided: none substance use type: denies use current occupational status: retired Travel in the last 8 weeks?: None household members: none housing: house lives independently: Yes marital status: education level: middle school current occupational exposures/hazards: No caffeine: Yes special ping needs: No agree to transfusion: No do you feel safe at home: Yes victim of physical abuse: No victim of emotional abuse: No victim of sexual abuse: No would you like helpful sources: No Have you lived/traveled outside [place] in past 30 days?: No Contact w/someone who lives/traveled outside [place] past 30 days?: No Exposure to someone with infectious disease in past 14 days?: No Do you have a fever (greater than 100.4 F or 38 C)?: No Have you tested positive for COVID-19?: No Exposed to someone with COVID-19 in past 14 days?: No Do you have a sore throat?: No Do you have a cough?: No Do you have any weakness?: No Do you have any diarrhea?: No Are you experiencing any unusual bleeding?: No Do you have any muscle aches/pain?: No Do you have any abdominal pain?: No Are you experiencing loss of taste or smell?: No Review of Systems Constitutional Constitutional: Reports anorexia, Reports body ache(s), Reports fatigue, Reports poor appetite and Reports lethargy Eyes Eyes: Denies eye discharge, Denies dry eyes, Denies irritation and Denies itchy eyes ENT Ears, Nose, Mouth, and Throat: Denies epistaxis, Denies facial pain, Denies lip swelling and Denies throat swelling *Cardiovascular Cardiovascular: Reports dyspnea and Reports dyspnea on exertion *Respiratory Respiratory: Denies change in phlegm color, Reports chest congestion, Reports cough, Reports dyspnea, Reports dyspnea on exertion, Reports excessive phlegm production, Denies hemoptysis, Denies pain on inspiration, Denies pain with cough and Reports wheezing *Gastrointestinal Gastrointestinal: Denies abdominal pain, Denies belching and Denies cramping *Musculoskeletal Musculoskeletal: Reports back pain, Reports myalgias and Reports other (No small joint swelling or Pain) Psychiatric Psychiatric: Denies homicidal ideation and Denies suicidal ideation Endocrine Endocrine: Reports fatigue and Denies heat intolerance Hematologic/Lymphatic Hematologic/Lymphatic: Denies easy bleeding and Denies lymphadenopathy Allergic/Immunologic Allergic/Immunologic: Denies itchy eyes, Denies lip swelling, Denies throat swelling and Reports wheezing Pulmonology Exam Inpatient Vital signs and Labs for Last 24 Hours: Temp Pulse Resp BP Pulse Ox O2 Del Method O2 Flow Rate 97.4 F L 69 24 124/58 L 96 Nasal Cannula 4 08/31/24 08:00 08/31/24 08:00 08/31/24 08:00 08/31/24 08:00 08/31/24 08:53 08/31/24 09:00 08/31/24 09:00 Laboratory Results - last 24 hr 08/30/24 13:57: WBC 22.4 H*, RBC 4.34, Hgb 11.0 L, Hct 36.6 L, MCV 84.3, MCH 25.3 L, MCHC 30.1 L, RDW 15.9, Plt Count 335, MPV 9.7, Neut % (Auto) 78.0, Lymph % (Auto) 12.4, Mccracken % (Auto) 8.4, Eos % (Auto) 0.2, Baso % (Auto) 0.4, Neut # (Auto) 17.4 H, Lymph # (Auto) 2.8, M[place]racken # (Auto) 1.9 H, Eos # (Auto) 0.0, Baso # (Auto) 0.1, Total Counted 100, Neutrophils % (Manual) 79 H, Lymphocytes % (Manual) 11, Atypical Lymphs % 1.0, Monocytes % (Manual) 9, Platelet Estimate Normal, Microcytosis 1+, Sodium 140, Potassium 4.4, Chloride 103, Carbon Dioxide 31 H, Anion Gap 10.4, BUN 39 H, Creatinine 1.40 H, Estimated Creat Clear 50, Estimated GFR 38 L, Est GFR ( Amer) 46 L, Glucose 74, Calcium 9.4, Magnesium 1.5 L, Total Bilirubin 0.7, AST 30, ALT 18, Alkaline Phosphatase 203 H, Troponin I 0.02, C-Reactive Protein 51.8 H, NT-Pro-B Natriuret Pep 3560 H, Total Protein 8.1, Albumin 3.7, Globulin 4.4 H, Albumin/Globulin Ratio 0.8 L, Procalcitonin 0.183, Chlamy pneumoniae PCR Not detected, Adenovirus (PCR) Not detected, B. pertussis DNA (PCR) Not detected, Coronavirus OC43 (PCR) Not detected, Coronavirus HKU1 (PCR) Not detected, Coronavirus 229E (PCR) Not detected, SARS-CoV-2 (PCR) Not detected, Coronavirus NL63 (PCR) Not detected, Human Metapneumovir PCR Not detected, Influenza A (H1) PCR Not detected, Influ A (H1N1/09) PCR Not detected, Influenza A (H3) PCR Not detected, Influenza Type A (PCR) Not detected, Influenza Type B (PCR) Not detected, M. pneumoniae (PCR) Not detected, Parainfluenza 1 (PCR) Not detected, Parainfluenza 2 (PCR) Not detected, Parainfluenza 3 (PCR) Not detected, Parainfluenza 4 (PCR) Not detected, RSV (PCR) Not detected, Entero/Rhino (PCR) Not detected 08/30/24 14:17: VBG pH 7.36, VBG pCO2 50.2, VBG pO2 42.8 H, VBG HCO3 27.5, VBG Total CO2 29.1 H, VBG O2 Saturation 79.4 H, VBG Base Excess 2.0, VBG Lactic Acid 1.1 08/30/24 17:17: Troponin I 0.02 08/30/24 20:14: POC Glucose 113 H 08/30/24 20:52: Troponin I 0.02 08/31/24 02:43: Urine Color Yellow, Urine Appearance Slightly cloudy, Urine pH 6.0, Ur Specific [place] 1.025, Urine Protein 3+ A, Urine Glucose (UA) 1+, Urine Ketones Negative, Urine Blood 2+ A, Urine Nitrate Negative, Urine Bilirubin Negative, Urine Urobilinogen 0.2, Ur Leukocyte Esterase Negative, Urine RBC 5-10, Urine WBC 3-5, Ur Squamous Epith Cells 3-5, Amorphous Sediment 2+, Urine Bacteria 3+, Urine Mucus 1+, MRSA (PCR) Positive A 08/31/24 04:56: WBC 25.2 H*, RBC 3.55 L, Hgb 8.9 L D, Hct 30.0 L, MCV 84.5, MCH 25.1 L, MCHC 29.7 L, RDW 15.7, Plt Count 281, MPV 10.0, Neut % (Auto) 86.5 H, Lymph % (Auto) 5.4 L, Mccracken % (Auto) 6.6, Eos % (Auto) 0.0 L, Baso % (Auto) 0.2, Neut # (Auto) 21.7 H, Lymph # (Auto) 1.4, Mccracken # (Auto) 1.7 H, Eos # (Auto) 0.0, Baso # (Auto) 0.1, Total Counted 100, Neutrophils % (Manual) 88 H, Band Neutrophils % 4, Lymphocytes % (Manual) 5 L, Atypical Lymphs % Not Reportable, Monocytes % (Manual) 2, Platelet Estimate Not Reportable, RBC Morphology Not Reportable, ESR 111 H, Sodium 139, Potassium 4.2, Chloride 104, Carbon Dioxide 25, Anion Gap 14.2, BUN 41 H, Creatinine 1.80 H D, Estimated Creat Clear 39, Estimated GFR 28 L, Est GFR ( Amer) 34 L D, Glucose 274 H D, Hemoglobin A1c 8.7 H, Lactate 1.5, Calcium 8.7, Magnesium 2.0 D, Total Bilirubin 0.4, AST 23, ALT 15, Alkaline Phosphatase 135 H, Lactate Dehydrogenase 151 L, C-Reactive Protein 104.4 H, Total Protein 6.3, Albumin 2.9 L D, Globulin 3.4 H, Albumin/Globulin Ratio 0.9 L, Procalcitonin 1.14 08/31/24 06:21: POC Glucose 268 H I & O for Labs for Last 24 Hours: Intake & Output 08/28/24 08/29/24 08/30/24 08/31/24 23:59 23:59 23:59 23:59 Intake Total 854 / 854 Output Total 820 / 820 Balance 34 / 34 Weight 170 lb 188 lb Constitutional: Present severe distress Head: Present normocephalic and atraumatic ENT: Present normal exam, normal oropharynx and mucous membranes moist Neck: Present normal inspection and full ROM Respiratory: Present prolonged expiratory phase, respiratory distress, rhonchi, wheezes, crackles and able to speak in complete sentences Cardiac: Present S1/S2, Tachycardia and radial pulses present GI: Present soft and distention; Absent tenderness or guarding Rectal (female): Present deferred (female): Present deferred Skin: Present intact; Absent cyanosis or jaundice Neuro: Present alert, awake and oriented x 3 Extremities: Present normal inspection and edema; Absent clubbing or cyanosis Psychiatric: Present normal affect and cooperative Meds Home Medications and Allergies Home Medications ?Medication ?Instructions ?Recorded ?Confirmed ?Type apixaban 5 mg tablet (Eliquis) 5 mg PO BID 09/06/22 08/30/24 History insulin lispro 100 unit/mL 1 sliding scale dose SQ ACHS 08/23/23 08/31/24 History subcutaneous pen (Admelog SoloStar U-100 Insulin lispro) atorvastatin 10 mg tablet 10 mg PO HS 09/03/23 08/30/24 History isosorbide mononitrate 30 mg 30 mg PO DAILY 09/03/23 08/30/24 History tablet,extended release 24 hr ipratropium 0.5 mg-albuterol 3 mg 3 ml inhalation TID PRN SHORTNESS 09/04/23 08/31/24 History (2.5 mg base)/3 mL nebulization OF BREATH/WHEEZING soln lidocaine 5 % topical patch 1 patch topical DAILY 09/16/23 08/30/24 History (Lidoderm) guaifenesin 600 mg tablet, 600 mg PO BID 10/17/24 07/17/25 History extended release 12 hr (Mucus Relief ER) pen needle,diabetic dual safty 30 #100 ea 12/01/23 08/03/24 History gauge x 3/16 (BD AutoShield Duo Pen Needle) polyethylene glycol 3350 17 17 g PO DAILY 12/01/23 08/30/24 History gram/dose oral powder (ClearLax) acetaminophen 500 mg capsule 1,000 mg PO Q6HP PRN Mild Pain 03/05/24 08/31/24 History (Scale Score 1-4) famotidine 20 mg tablet 20 mg PO BID 03/05/24 08/31/24 History buspirone 10 mg tablet 10 mg PO BID 06/13/24 08/30/24 History oxycodone-acetaminophen 5 mg-325 1 tab PO QID 07/04/24 08/31/24 History mg tablet aripiprazole 10 mg tablet 10 mg PO DAILY 08/03/24 08/30/24 History fluticasone fur. 100 mcg-umeclid 1 inh inhalation DAILY 08/03/24 08/30/24 History 62.5 mcg-vilant 25 mcg inhalat.powder (Trelegy Ellipta) dapagliflozin propanediol 5 mg 5 mg PO DAILY 08/30/24 08/30/24 History tablet (Farxiga) metoprolol tartrate 25 mg tablet 25 mg PO BID 08/30/24 08/30/24 History bumetanide 2 mg tablet 2 mg PO DAILY 08/31/24 08/31/24 History docusate sodium 100 mg capsule 100 mg PO BID 08/31/24 08/31/24 History gabapentin 400 mg capsule 400 mg PO TID 08/31/24 08/31/24 History insulin glargine 100 unit/mL (3 44 unit SQ HS 08/31/24 08/31/24 History mL) subcutaneous pen (Lantus Solostar U-100 Insulin) insulin lispro 100 unit/mL 6 unit SQ AC 08/31/24 08/31/24 History subcutaneous pen sodium zirconium cyclosilicate 5 5 g PO BID 08/31/24 08/31/24 History gram oral powder packet (Lokelma) telmisartan 20 mg tablet 20 mg PO DAILY 08/31/24 08/31/24 History New Prescriptions to Start Prescriptions: Allergies Allergy/AdvReac Type Severity Reaction Status Date / Time methocarbamol Allergy Severe Altered Verified 08/13/24 14:16 mental status terbutaline (TERBUTALINE) Allergy Severe SWELLS Verified 08/13/24 14:16 THROAT aspirin (ASPIRIN) Allergy Intermediate I-RASH Verified 08/13/24 14:16 codeine (CODEINE) Allergy Intermediate Swelling Verified 08/13/24 14:16 of the Eye diphenhydramine (From Allergy Intermediate Hives Verified 08/13/24 14:16 Benadryl) Sulfa (Sulfonamide Allergy Intermediate Hives Verified 08/13/24 14:16 Antibiotics) (SULFA (SULFONAMIDE ANTIBIOTICS)) sulfamethoxazole (From Allergy Intermediate Hives Verified 08/13/24 14:16 Bactrim) trimethoprim (From Bactrim) Allergy Intermediate Hives Verified 08/13/24 14:16 naproxen (NAPROXEN) Allergy Mild itching Verified 08/13/24 14:16 tramadol (TRAMADOL) Allergy Mild Vomiting Verified 08/13/24 14:16 citalopram (CITALOPRAM) Allergy Unknown SKIN PEEL Verified 08/13/24 14:16 erythromycin base Allergy Unknown I-RASH Verified 08/13/24 14:16 (ERYTHROMYCIN BASE) Penicillins (PENICILLINS) Allergy Unknown I-RASH Verified 08/13/24 14:16 fluticasone (From Advair Allergy Unknown Verified 08/13/24 14:16 Diskus) allergy reaction salmeterol (From Advair Allergy Unknown Verified 08/13/24 14:16 Diskus) allergy reaction bupropion (BUPROPION) AdvReac Severe Hallucinati Verified 08/13/24 14:16 ng duloxetine (DULOXETINE) AdvReac Severe Hallucinati Verified 08/13/24 14:16 ng pregabalin (PREGABALIN) AdvReac Severe Hallucinati Verified 08/13/24 14:16 ng celecoxib (From CELEBREX) AdvReac Mild Vomiting Verified 08/13/24 14:16 Results Laboratory Findings 08/31/24 04:56 08/31/24 04:56 Abnormal lab findings: Abnormal Labs 08/30/24 08/30/24 08/30/24 13:57 14:17 20:14 WBC 22.4 H* RBC Hgb 11.0 L Hct 36.6 L MCH 25.3 L MCHC 30.1 L Neut % (Auto) Lymph % (Auto) Eos % (Auto) Neut # (Auto) 17.4 H Mccracken # (Auto) 1.9 H Neutrophils % (Manual) 79 H Lymphocytes % (Manual) ESR VBG pO2 42.8 H VBG Total CO2 29.1 H VBG O2 Saturation 79.4 H Carbon Dioxide 31 H BUN 39 H Creatinine 1.40 H Estimated GFR 38 L Est GFR ( Amer) 46 L Glucose POC Glucose 113 H Hemoglobin A1c Magnesium 1.5 L Alkaline Phosphatase 203 H Lactate Dehydrogenase C-Reactive Protein 51.8 H NT-Pro-B Natriuret Pep 3560 H Albumin Globulin 4.4 H Albumin/Globulin Ratio 0.8 L Urine Protein Urine Blood MRSA (PCR) 08/31/24 08/31/24 08/31/24 02:43 04:56 06:21 WBC 25.2 H* RBC 3.55 L Hgb 8.9 L D Hct 30.0 L MCH 25.1 L MCHC 29.7 L Neut % (Auto) 86.5 H Lymph % (Auto) 5.4 L Eos % (Auto) 0.0 L Neut # (Auto) 21.7 H [place] # (Auto) 1.7 H Neutrophils % (Manual) 88 H Lymphocytes % (Manual) 5 L ESR 111 H VBG pO2 VBG Total CO2 VBG O2 Saturation Carbon Dioxide BUN 41 H Creatinine 1.80 H D Estimated GFR 28 L Est GFR ( Amer) 34 L D Glucose 274 H D POC Glucose 268 H Hemoglobin A1c 8.7 H Magnesium Alkaline Phosphatase 135 H Lactate Dehydrogenase 151 L C-Reactive Protein 104.4 H NT-Pro-B Natriuret Pep Albumin 2.9 L D Globulin 3.4 H Albumin/Globulin Ratio 0.9 L Urine Protein 3+ A Urine Blood 2+ A MRSA (PCR) Positive A Assessment and Plan *Assessment and plan (1) Multifocal pneumonia: Status: Acute Category: Medical Code(s): J18.8 - Other pneumonia, unspecified organism (2) Acute and chronic respiratory failure with hypoxia: Status: Acute Category: Medical Code(s): J96.21 - Acute and chronic respiratory failure with hypoxia Plan Ms. Bartlett is a 64-year-old female greater than [id number] smoking history severe COPD chronic hypoxic respiratory failure, pulmonary langerhan cell histiocytosis, heart failure preserved EF presented to ER with worsening respiratory distress pleuritic chest pain admitted to the hospital and pulmonary was called for further evaluation and management. Admit progressively worsening respiratory distress with cough and productive phlegm. Stopped smoking, has not smoked in the last 4 weeks. Status post completion of 5 days of levofloxacin from 08/03/2024 with worsening infiltrates. Afebrile. Hemodynamically stable. Neutrophilic predominant leukocytosis. Comprehensive respiratory viral PCR panel negative. Nasal MRSA PCR positive for CTA PE protocol upon admission no evidence of pulmonary embolism. Predominant right sided airspace disease, worsened from her most recent CT scan from July 2024 during which she completed 5-day course of levofloxacin.Continue to show previous noted fibrotic changes, also worsening. Currently receiving vancomycin and cefepime nebulization therapies and steroids CRP elevated at 124.4 On initial examination examination moderate respiratory distress. Significant wheezing noted on auscultation. Admits improving symptoms. Plan: Echocardiogram Continue oxygen supplementation to maintain O2 saturation goal of 90% and above. Saturating 97% on 4 L, weaned to 2 L DuoNebs every 6 hours along with Pulmicort every 12 scheduled Continue vancomycin and cefepime pending sputum culture results and nasal MRSA PCR Will attempt sputum induction again. Incentive spirometry and flutter valve
[2024-08-31] MEDS: VANCOMYCIN/WATER FOR INJ (PEG) 1.5 GM/300 ML PIGGYBACK IV (09:17)
[2024-08-31 09:49] LABS: C-Reactive Protein 124.4 mg/L (0-4)
[2024-08-31 10:02] LABS: Procalcitonin 1.28 ng/mL (0.0-2.0)
[2024-08-31 11:53] LABS: POC Glucose,Bedside 201 (70-110)
--- NOTE | 2024-08-31 12:31 | CA_ITS ---
APPROVED REPORT EXAM: Comprehensive 2D, Doppler, and color-flow Echocardiogram Spray Operator: Cynthia Chen CRT Ht: 5 ft 4 in Wt: 188lbs BSA: 1.91 BP: 124/54 mmHg Indications: Shortness of Breath Pt very tender to touch 2D Dimensions LA Volume 55.40 mL LA Volume Index 28.40 mL/m2 (M/F) 16-34 M-Mode Dimensions RVDd 3.13 cm (0.9-2.6) LA Diam 4.96 cm (1.9-4.0) LVDd 3.94 cm (3.5-5.7) LVDs 2.41 cm (3.5-5.7) IVSd 1.53 cm (0.6-1.1) PWd 1.17 cm (0.6-1.1) EF (Teich) 69.80% FS 38.80% EDV (Teich) 67.50 mL TAPSE 2.17 (<1.7) ESV (Teich) 20.40 mL LV Diastology E Decel Time 180 (160-240 msec) E/A Ratio 1.11 MED A' 7.60 cm/s LAT A' 9.50 cm/s Aortic Valve AO Peak GR. 8.90 mmHg Mitral Valve MV A Velocity 104.0 (40-130 cm/s) E/A Ratio 1.11 Pulmonary Valve PV Peak Velocity 123.0 (50-150 cm/s) Tricuspid Valve TR P. Velocity 300.00 cm/s RAP Estimate 10.00 mmHg RVSP 46.10 mmHg Left Ventricle The left ventricle is normal size. The left ventricular systolic function is normal. The left ventricular ejection fraction is within the normal range. There is increased LV wall thickness. There is normal LV segmental wall motion. The left ventricular diastolic function is normal. LVEF is 55%. Right Ventricle Right ventricle is borderline dilated. The right ventricular systolic function is normal. Atria Left atrium is mildly dilated. Right atrium is mildly dilated. There is no Doppler evidence of interatrial shunt. Aortic Valve The aortic valve is mildly thickened. There is no aortic valvular stenosis. Trace aortic regurgitation. Mitral Valve The mitral valve is normal in structure. No evidence of mitral valve stenosis. Mild mitral regurgitation. Tricuspid Valve Tricuspid valve is grossly normal in structure and function. Mild tricuspid regurgitation. RVSP is 20-25 mmHg. Pulmonic Valve The pulmonary valve is normal in structure. Trace pulmonic regurgitation. Great Vessels The aortic root is normal in size. IVC is normal in size and collapses >50% with inspiration. Pericardium There is no pericardial effusion. Other Information Study Quality: Fair Conclusion Normal biventricular systolic function. Borderline RV dilation. Mild biatrial dilation. Mild TR, mild MR. Electronically signed by : Diane Jay MD 09/01/2024 14:55:05
[2024-08-31] MEDS: AZITHROMYCIN 500 MG in 0.9 % SODIUM CHLORIDE 250 ML 250 MG IV (14:10)
--- NOTE | 2024-08-31 17:11 | PC.NURSE ---
pt left the unit by wheelchair with ICU staff to transfer to [facility] surg
--- NOTE | 2024-08-31 17:19 | HMH.SLDYSPHA ---
Speech & Language Evaluation Speech/Language Dysphagia Evaluation Start: 08/31/24 17:05 Freq: ONCE Status: Active Protocol: Document 08/31/24 17:05 DANNIEHANNAH (Rec: 08/31/24 17:19 [id number] Dysphagia Assess/Goals/Plan Assessment Date of Evaluation: 08/31/24 Evaluation Type Initial Certification Assessment/Problems silent aspiration concern per MD order Does Patient Qualify Yes for Service Qualify/Failure Based on clinical observations made throughout CSE, pt Comment would benefit from further instrumental assessment ( MBSS) to evaluate oropharyngeal phase of the swallow given overt s/sxs of aspiration. Recommendations PHYSICIAN CERTIFICATION: The specified therapy services are required, authorized, and reviewed every 30 days. Diet Recommendations Mechanical Soft Liquid Type Normal/Thin Recommendations SL Swallow Assist w/all meals,High aspiration risk,Standard Guidelines Aspiration Prec.,Reflux precautions Dysphagia Swallow Sitting Upright (90 deg),Small Bites and Sips,Alternate Precautions/ Liquids/Solids Strategies Plan Pt/Guardian verbally Yes ack understanding of dx/prognosis/ goals G -code Required No STG-Other Comment/Non-Specific Pt will take part in further instrumental assessment to evaluate oropharyngeal phase of the swallow. Education Instructions Discussed CSE observations and recommendation for provided further instrumental assessment. KEYPUNCH OPERATOR educated safest diet recommendation until MBSS was to be completed would be NPO, pt reports wishing to continue PO until MBSS can be completed. KEYPUNCH OPERATOR reviewed aspiration risks/ precautions and compensatory strategies with pt who expressed understanding. KEYPUNCH OPERATOR also discussed information with nursing and MD both of which expressed understanding as well. Pt/Caregiver able to Able to recall/restate recall information Reinforcement needed No Speech & Language HPI History Present Illness Description of KEYPUNCH OPERATOR pulled following information from chart review and Patient Problem H&P, Jania Bartlett is a 64-year-old female with a medical history of COPD on 2 L baseline, greater than 30 pack smoking history, HFpEF, insulin-dependent diabetes, hypertension, anxiety/depression, who presents with 2-week onset of progressive shortness of breath and cough. Patient states that she is not able to cough up anything, but does endorse right-sided pleuritic chest pain and now generalized chest pain from coughing. Also endorses nonspecific generalized abdominal pains, denies fever/chills. States her lower extremity edema is at baseline. Workup in the ED significant for WBC 22.4, CRP 51.8, procalcitonin normal, CTA chest revealing right lower lobe pneumonia. Patient is also tachypneic and now requiring 4 L nasal cannula. Patient was given ceftriaxone, azithromycin. Fluids were held due to suspicion of fluid overload. Case discussed by ED provider initially was made to admit patient for sepsis secondary to community-acquired pneumonia. CXR reports: FINDINGS: CHEST 1 VIEW There are patchy airspace opacities, greatest on the right, suspicious for pneumonia. Some of this may be related to chronic change. The heart and mediastinum are unremarkable. IMPRESSION: Findings suspicious for pneumonia. Recommend continued follow-up. CTA reports: FINDINGS: Pulmonary arteries: Normal. No pulmonary emboli. Aorta: Unremarkable. No aortic aneurysm. No aortic dissection. Lungs: Biapical fibronodular scarring and infiltrate. Right lower lobe infiltrate. Pleural spaces: Unremarkable. No pneumothorax. No pleural effusion. Heart: Unremarkable. No cardiomegaly. No pericardial effusion. Lymph nodes: Unremarkable. No enlarged lymph nodes. Bones/joints: Compression fracture T12. Similar to comparison 08/03/2024. Soft tissues: Unremarkable. IMPRESSION: 1. Biapical fibronodular scarring and infiltrate. Right lower lobe infiltrate. 2. Compression fracture T12. Similar to comparison . Pt/Caregiver Pt reports difficulty swallowing, stating she often Concerns feels she becomes strained/strangled on meats and when she takes larger and/or subsequent sips of her drinks. Pt reports hx GERD and 5+ upper respiratory infections/ pneumonias a year. Pt states she has received MBSS in past, but is not interested on being on a modified diet of pureed foods and/or thickened liquids. Language Primary Language Chinese General Information General Current Food Mechanical Soft,Thin Liquids Consistancy Dentition Poor Dentition Comment: only lower 4 teeth Oxygen Status Nasal Cannula Patient Orientation Person,Place,Time,Situation Ability to Follow Good Directions Communication Mild Impairment Ability Dysphagia:Food Presentation Evaluation Food Type Pureed,Mechanical Soft,Liquid,Pudding Normal/Thin Liquid Coughing after swallow,Clears throat,Wet voice Response Dysphagia Evaluation Multiple swallow attempts Pureed Food Behavior Response Dysphagia Evaluation Difficulty chewing,Multiple swallow attempts,Residual Mechanical Soft on tongue Food Behavior Response Dysphagia Evaluation Pt was observed sitting upright in chair this afternoon Summary for CSE. She was A&Ox4 and oral care was provided prior to administering bolus trials. She was given thin liquid trials via ice chips and spoonful of water with no overt s/sxs of aspiration. Upon administering open cup and subsequent straw (KEYPUNCH OPERATOR requested single sip, however 3 [id number] were taken) sips of water, pt was observed to begin coughing and clearing her throat. O2 sats were also observed to drop into 80s. Pt was then administered 2 trials of pudding with no overt s/ sxs of aspiration. Later, KEYPUNCH OPERATOR provided pt with pureed applesauce trials in which pt was observed to grimace and take multiple swallows. Lastly, pt was given trial of mechanical soft (baked cookie) x2, she was observed to have increased mastication time, multiple swallow attempts, and residuals observed on the tongue across both trials requiring a puree wash to clear. Regular solids not trialed 2' lack of dentition. KEYPUNCH OPERATOR educated pt on recommendation of MBSS and she was agreeable. KEYPUNCH OPERATOR discussed safest recommendation of NPO until MBSS is complete to which she refused and then KEYPUNCH OPERATOR provided education regarding aspiration, overt s/sxs of aspiration observed during CSE, risk of silent aspiration with pt and she expressed understanding and wishes to continue on current diet acknowledging aspiration risk. KEYPUNCH OPERATOR will f/u to schedule MBSS on Tuesday. Stroke Dysphagia Assessment PHYSICIAN CERTIFICATION: I certify the specified therapy services for Kassy Bartlett are required, authorized, and reviewed every 30 days.
[2024-08-31 17:26] LABS: Microscopic, Urine URINE MICROSCOPIC (MICROSCOPIC)
--- NOTE | 2024-08-31 17:39 | EXP.PN ---
Subjective *Date: 08/31/24 *Time: 17:39 Interval history: Patient feels about the same as yesterday, some shortness of breath with generalized weakness. Continue IV antibiotics. Follow-up cultures. Exam Data for Last 24 hours Vital signs and Labs for Last 24 Hours: Temp Pulse Resp BP Pulse Ox O2 Del Method O2 Flow Rate 99.1 F 77 24 139/67 94 L Nasal Cannula 4 08/31/24 16:00 08/31/24 16:00 08/31/24 16:00 08/31/24 16:00 08/31/24 16:00 08/31/24 17:05 08/31/24 17:00 Laboratory Results - last 24 hr 08/30/24 17:17: Troponin I 0.02 08/30/24 20:14: POC Glucose 113 H 08/30/24 20:52: Troponin I 0.02 08/31/24 02:43: Urine Color Yellow, Urine Appearance Slightly cloudy, Urine pH 6.0, Ur Specific [place] 1.025, Urine Protein 3+ A, Urine Glucose (UA) 1+, Urine Ketones Negative, Urine Blood 2+ A, Urine Nitrate Negative, Urine Bilirubin Negative, Urine Urobilinogen 0.2, Ur Leukocyte Esterase Negative, Urine RBC 5-10, Urine WBC 3-5, Ur Squamous Epith Cells 3-5, Amorphous Sediment 2+, Urine Bacteria 3+, Urine Mucus 1+, MRSA (PCR) Positive A 08/31/24 04:56: WBC 25.2 H*, RBC 3.55 L, Hgb 8.9 L D, Hct 30.0 L, MCV 84.5, MCH 25.1 L, MCHC 29.7 L, RDW 15.7, Plt Count 281, MPV 10.0, Neut % (Auto) 86.5 H, Lymph % (Auto) 5.4 L, [place] % (Auto) 6.6, Eos % (Auto) 0.0 L, Baso % (Auto) 0.2, Neut # (Auto) 21.7 H, Lymph # (Auto) 1.4, [place] # (Auto) 1.7 H, Eos # (Auto) 0.0, Baso # (Auto) 0.1, Total Counted 100, Neutrophils % (Manual) 88 H, Band Neutrophils % 4, Lymphocytes % (Manual) 5 L, Atypical Lymphs % Not Reportable, Monocytes % (Manual) 2, Platelet Estimate Not Reportable, RBC Morphology Not Reportable, ESR 111 H, Sodium 139, Potassium 4.2, Chloride 104, Carbon Dioxide 25, Anion Gap 14.2, BUN 41 H, Creatinine 1.80 H D, Estimated Creat Clear 39, Estimated GFR 28 L, Est GFR ( Amer) 34 L D, Glucose 274 H D, Hemoglobin A1c 8.7 H, Lactate 1.5, Calcium 8.7, Magnesium 2.0 D, Total Bilirubin 0.4, AST 23, ALT 15, Alkaline Phosphatase 135 H, Lactate Dehydrogenase 151 L, C-Reactive Protein 104.4 H, Total Protein 6.3, Albumin 2.9 L D, Globulin 3.4 H, Albumin/Globulin Ratio 0.9 L, Procalcitonin 1.14 08/31/24 06:21: POC Glucose 268 H 08/31/24 09:30: C-Reactive Protein 124.4 H, Procalcitonin 1.28 08/31/24 11:45: POC Glucose 201 H I & O for Last 24 hours: Intake & Output 08/28/24 08/29/24 08/30/24 08/31/24 23:59 23:59 23:59 23:59 Intake Total 1738 / 1738 Output Total 1330 / 1330 Balance 408 / 408 Weight 77.111 kg 85.275 kg Microbiology Reports for the Last 24 Hours: Microbiology 08/30/24 14:44 Blood Blood Culture - Preliminary NO GROWTH AFTER 24 HOURS 08/30/24 14:39 Blood Blood Culture - Preliminary NO GROWTH AFTER 24 HOURS Constitutional Constitutional: no acute distress *Routine HEENT Exam Head: Present normocephalic Eye: Present EOMI and PERRL ENT: Present mucous membranes moist *Routine Neck Exam Neck: Present supple; Absent lymphadenopathy *Routine Respiratory Exam Respiratory: Present CTA bilaterally *Routine Cardiovascular Exam Cardiovascular: Present RRR *Routine Abdominal Exam Abdominal: Present soft and normoactive bowel sounds; Absent tenderness *Routine Extremities Exam Extremities: Present edema; Absent cyanosis or clubbing *Routine Skin Exam Skin: Present warm; Absent rash *Routine Neurological Exam Neurological: Present alert and oriented X3 Assessment and Plan *Assessment and plan (1) Pneumonia: Status: Acute Category: Medical Code(s): J18.9 - Pneumonia, unspecified organism Plan Jania Bartlett is a 64-year-old female with a medical history of COPD on 2 L baseline, greater than 30 pack smoking history, HFpEF, insulin-dependent diabetes, hypertension, anxiety/depression, who presents with 2-week onset of progressive shortness of breath and cough. Patient states that she is not able to cough up anything, but does endorse right-sided pleuritic chest pain and now generalized chest pain from coughing. Also endorses nonspecific generalized abdominal pains, denies fever/chills. States her lower extremity edema is at baseline. Workup in the ED significant for WBC 22.4, CRP 51.8, procalcitonin normal, CTA chest revealing right lower lobe pneumonia. Patient is also tachycardic, tachypneic and now requiring 4 L nasal cannula. Patient was given ceftriaxone, azithromycin. Fluids were held due to suspicion of fluid overload. Case discussed by ED provider initially was made to admit patient for sepsis secondary to community-acquired pneumonia. #Acute on chronic hypoxic respiratory failure #Community-acquired pneumonia #Sepsis ? Presented with 2-weeks of progressive shortness of breath, nonproductive cough. Initial WBC 22.4, with tachypnea. ? CTA chest revealed right lower lobe pneumonia, CXR shows chronic interstitial changes. Procalcitonin normal. ? WBC bumped to 25.2, though in the setting of steroids. Procalcitonin still normal at 1.28. Patient feels about the same, feels generally weak with some shortness of breath. ? Continue vancomycin, cefepime, azithromycin day 2. ? Follow-up sputum, blood cultures. MRSA PCR positive. ? Pulmonology consulted, recommending continuing above regiment pending cultures. Also recommended IV antibiotics on discharge as patient recently failed outpatient levofloxacin. ? Follow-up morning CBC, CMP, procalcitonin, CRP, ESR, LDH. ? Speech therapy consulted, pending recommendations. Recommended barium swallow study if still inpatient on Tuesday. #Physical deconditioning ? PT/OT consulted, recommended SNF. Will discharge back to [facility] when medically stable. #COPD ? Mild diffuse rhonchi bilaterally on admission, improved today. ? Continue DuoNebs every 6 hours, resumed home Trelegy. #Insulin-dependent diabetes ? Hemoglobin A1c 8.7%. ? LDSSI, ACHS glucose checks. #HFpEF ? Patient states 3+ lower extremity pitting edema is chronic. ? Follow-up repeat ECHO. ? Resume home Bumex 2 mg daily. #Paroxysmal A-fib ? Continue home metoprolol 25 mg twice daily, Eliquis 5 mg twice daily. Currently rate controlled. #Hypertension ? Hold home BP meds in the setting of soft pressures. #Anxiety/depression ? Continue home BuSpar. DNR/DNI DVT prophylaxis: Lovenox 40 mg
[2024-08-31 17:43] LABS: Bilirubin,Urine Negative (Negative); Color,Urine YELLOW (Yellow); Glucose,Urine (UA) 2+ (Negative); Ketones,Urine Negative (Negative); Leukocyte Esterase,Urine Negative (Negative); PH,Urine 5.5 (5.0-8.5); Protein,Urine 2+ (Negative); Specific Gravity, Urine 1.020 (1.005-1.030); Urobilinogen,Urine 0.2 EU/dl (0.2)
[2024-08-31 18:15] LABS: RBC,Urine 20-50 #/hpf (0-3)
[2024-08-31 18:16] LABS: Amorphous Sediment,Urine 1+ /lpf; Bacteria,Urine 4+ /lpf; Mucus,Urine 1+ /lpf; Squamous Epithelial Cell,Urine Occasional #/hpf (0-5); WBC,Urine 20-50 #/hpf (0-3)
--- NOTE | 2024-08-31 19:30 | PC.NURSE ---
park warden reported irregular HR ranging 130-140s. Pt noted to be in Afib. Pt has a HX of Afib, however has been in NSR since admission. Contacted Hospitalist with concerns, new orders to restart pt metoprolol.
[2024-08-31] MEDS: METOPROLOL TARTRATE 25MG TABLET 25 MG PO (19:45)
[2024-08-31] MEDS: OXYCODONE 5MG IMMEDIATE RELEASE TABLET 10 MG PO (19:45)
--- NOTE | 2024-08-31 19:46 | ECG_ITS ---
APPROVED REPORT Exam: Resting ECG HR:128 bpm ECG Measurements Heart Rate 128 AXES QRSd 84 QRS -17 QT 308 T 38 QTc 384 Conclusion ATRIAL FIBRILLATION WITH RAPID VENTRICULAR RESPONSE MODERATE ST DEPRESSION [0.05+ mV ST DEPRESSION] ABNORMAL ECG UNCONFIRMED REPORT Electronically signed by : Moe Escoto MD 09/03/2024 08:00:32
[2024-08-31] MEDS: APIXABAN 5MG TABLET 5 MG PO (20:21)
[2024-08-31] MEDS: BUSPIRONE HCL 10 MG TABLET PO (20:22)
[2024-08-31] MEDS: GABAPENTIN 400MG CAPSULE 200 MG PO (20:22)
[2024-08-31] MEDS: INSULIN GLARGINE 100 UNITS/ML 3ML FLEXPEN 20 UNIT SUBCUT (20:23)
--- NOTE | 2024-08-31 20:50 | PC.NURSE ---
Pt has now converted back to a NSR.
[2024-08-31 21:03] LABS: POC Glucose,Bedside 284 (70-110)
[2024-09-01] VITALS (15 sets, daily range): BP systolic 131–155; BP diastolic 60–76; PULSE 70–90; RESP 18; TEMP 36.4–36.8; O2SAT 87–99; BMI 33.9
[2024-09-01] MEDS: humaLOG 100 UNITS/ML 10ML VIAL (SSI) SUBCUT ×2 (05:05→17:04)
[2024-09-01 05:22] LABS: POC Glucose,Bedside 162 (70-110)
[2024-09-01] MEDS: IPRATROPIUM/ALBUTEROL 3 ML NEB IH ×4 (06:34→22:10)
[2024-09-01 07:38] LABS: Hematocrit 33.2 % (37.0-47.0); Hemoglobin 9.4 g/dL (12.2-16.2); Immature Granulocytes % 1.6 %; Mean Corpuscular HGB Conc 28.3 g/dL (31.8-35.4); Mean Corpuscular Hemoglobin 24.2 pg (27.0-31.2); Mean Corpuscular Volume 85.3 fl (81-99); Nucleated Red Blood Cells % 0 %; Platelet Count 300 K/mm3 (142-424); Red Blood Count 3.89 M/mm3 (4.20-5.40); Red Cell Distribution Width-SD 50.2 fL; White Blood Count 19.2 K/mm3 (4.8-10.8)
[2024-09-01 07:55] LABS: Alanine Aminotransferase 13 U/L (12-78); Albumin Level 3.1 g/dl (3.5-5.0); Albumin/Globulin Ratio 0.9 (1.1-1.8); Alkaline Phosphatase 137 U/L (38-126); Anion Gap 11.1 mEq/L (5-15); Aspartate Amino Transferase 22 U/L (14-36); Bilirubin,Total 0.4 mg/dl (0.2-1.3); Blood Urea Nitrogen 60 mg/dl (7-17); Calcium 9.1 mg/dl (8.4-10.2); Carbon Dioxide 23 mmol/L (22.0-30.0); Chloride 110 mmol/L (98-107); Creatinine Clearance Estimated 34 mL/min (50-200); Creatinine,Serum 2.50 mg/dl (0.52-1.04); Estimated Glomerular Filt Rate 19 ml/min (>60); GFR (African American) 24 ML/MIN (>60); Globulin 3.5 g/dL (1.3-3.2); Glucose 108 mg/dl (74-100); Magnesium 2.3 mg/dl (1.6-2.3); Potassium 4.1 mmoL/L (3.5-5.1); Sodium 140 mmol/L (136-145); Total Protein,Serum 6.6 g/dl (6.3-8.2)
[2024-09-01 09:14] LABS: Hypochromasia 1+; RBC Morphology Normal; Total Cells Counted 100
[2024-09-01] MEDS: FLUTICASONE/UMECLIDIN/VILANTER 100/62.5/25MCG INHALER 1 PUFF IH (09:34)
[2024-09-01] MEDS: CEFEPIME HCL 2 GM in 0.9 % SODIUM CHLORIDE 100 ML IV ×2 (09:34→20:15)
[2024-09-01] MEDS: METOPROLOL TARTRATE 25MG TABLET 25 MG PO ×2 (09:35→20:15)
[2024-09-01] MEDS: BUSPIRONE HCL 10 MG TABLET PO ×2 (09:35→20:15)
[2024-09-01] MEDS: APIXABAN 5MG TABLET 5 MG PO ×2 (09:35→20:15)
[2024-09-01] MEDS: BUMETANIDE 1MG/4ML VIAL 2 MG IV ×2 (09:35→16:51)
[2024-09-01] MEDS: GABAPENTIN 100MG CAPSULE 200 MG PO ×3 (09:35→20:15)
[2024-09-01] MEDS: OXYCODONE 5MG IMMEDIATE RELEASE TABLET 5 MG PO ×2 (09:43→17:09)
[2024-09-01] MEDS: AZITHROMYCIN 250MG TABLET 500 MG PO (12:07)
[2024-09-01 13:38] LABS: POC Glucose,Bedside 258 (70-110)
--- NOTE | 2024-09-01 17:27 | PC.NURSE ---
pt a&ox4. requiring 3LNC to maintain sats >90%. pt reports generalized pain throughout the shift and was treated with pain medication per mar. fsbs treated with SSI per apr. pt has remained NSR on tele. abx given per apr. fong remains in place draining light yellow urine. no needs at this time. call light within reach.
[2024-09-01 17:29] LABS: POC Glucose,Bedside 214 (70-110)
--- NOTE | 2024-09-01 18:26 | EXP.PN ---
Subjective *Date: 09/01/24 *Time: 18:31 Interval history: Increased shortness of breath, wheezing, airway tightness, rhonchi today. Started IV Solu-Medrol, follow-up VBG. Continue breathing treatments. Exam Data for Last 24 hours Vital signs and Labs for Last 24 Hours: Temp Pulse Resp BP Pulse Ox O2 Del Method O2 Flow Rate 98.3 F 80 18 155/75 H 91 L Nasal Cannula 3 09/01/24 15:54 09/01/24 16:00 09/01/24 15:54 09/01/24 15:54 09/01/24 15:54 09/01/24 17:00 09/01/24 17:00 Laboratory Results - last 24 hr 08/31/24 16:52: POC Glucose 258 H 08/31/24 20:20: POC Glucose 284 H 09/01/24 05:04: POC Glucose 162 H 09/01/24 07:10: WBC 19.2 H, RBC 3.89 L, Hgb 9.4 L, Hct 33.2 L, MCV 85.3, MCH 24.2 L, MCHC 28.3 L, RDW 16.1, Plt Count 300, MPV 10.1, Neut % (Auto) 74.7, Lymph % (Auto) 14.8, [place] % (Auto) 8.2, Eos % (Auto) 0.3, Baso % (Auto) 0.4, Neut # (Auto) 14.4 H, Lymph # (Auto) 2.8, [place] # (Auto) 1.6 H, Eos # (Auto) 0.1, Baso # (Auto) 0.1, Total Counted 100, Neutrophils % (Manual) 74, Lymphocytes % (Manual) 18, Monocytes % (Manual) 8, Platelet Estimate Normal, RBC Morphology Normal, Hypochromasia 1+, Sodium 140, Potassium 4.1, Chloride 110 H, Carbon Dioxide 23, Anion Gap 11.1, BUN 60 H D, Creatinine 2.50 H D, Estimated Creat Clear 34, Estimated GFR 19 L*, Est GFR ( Amer) 24 L D, Glucose 108 H, Calcium 9.1, Magnesium 2.3 D, Total Bilirubin 0.4, AST 22, ALT 13, Alkaline Phosphatase 137 H, Total Protein 6.6, Albumin 3.1 L, Globulin 3.5 H, Albumin/Globulin Ratio 0.9 L 09/01/24 16:51: POC Glucose 214 H I & O for Last 24 hours: Intake & Output 08/29/24 08/30/24 08/31/24 09/01/24 23:59 23:59 23:59 23:59 Intake Total 1938 / 2398 1120 / 1120 Output Total 1330 / 1330 2024 / 2024 Balance 608 / 1068 -905 / -905 Weight 77.111 kg 85.275 kg 92.306 kg Microbiology Reports for the Last 24 Hours: Microbiology 08/30/24 14:44 Blood Blood Culture - Preliminary NO GROWTH AFTER 48 HOURS 08/30/24 14:39 Blood Blood Culture - Preliminary NO GROWTH AFTER 48 HOURS Constitutional Constitutional: no acute distress *Routine HEENT Exam Head: Present normocephalic Eye: Present EOMI and PERRL ENT: Present mucous membranes moist *Routine Neck Exam Neck: Present supple; Absent lymphadenopathy *Routine Respiratory Exam Respiratory: Present rhonchi, wheezes and diminished air movement; Absent CTA bilaterally *Routine Cardiovascular Exam Cardiovascular: Present RRR *Routine Abdominal Exam Abdominal: Present soft and normoactive bowel sounds; Absent tenderness *Routine Extremities Exam Extremities: Present edema; Absent cyanosis or clubbing *Routine Skin Exam Skin: Present warm; Absent rash *Routine Neurological Exam Neurological: Present alert and oriented X3 Assessment and Plan *Assessment and plan (1) Pneumonia: Status: Acute Category: Medical Code(s): J18.9 - Pneumonia, unspecified organism Plan Jania Bartlett is a 64-year-old female with a medical history of COPD on 2 L baseline, greater than 30 pack smoking history, HFpEF, insulin-dependent diabetes, hypertension, anxiety/depression, who presents with 2-week onset of progressive shortness of breath and cough. Patient states that she is not able to cough up anything, but does endorse right-sided pleuritic chest pain and now generalized chest pain from coughing. Also endorses nonspecific generalized abdominal pains, denies fever/chills. States her lower extremity edema is at baseline. Workup in the ED significant for WBC 22.4, CRP 51.8, procalcitonin normal, CTA chest revealing right lower lobe pneumonia. Patient is also tachycardic, tachypneic and now requiring 4 L nasal cannula. Patient was given ceftriaxone, azithromycin. Fluids were held due to suspicion of fluid overload. Case discussed by ED provider initially was made to admit patient for sepsis secondary to community-acquired pneumonia. #Acute on chronic hypoxic respiratory failure #Community-acquired pneumonia #Sepsis ? Presented with 2-weeks of progressive shortness of breath, nonproductive cough. Initial WBC 22.4, with tachypnea. ? CTA chest revealed right lower lobe pneumonia, CXR shows chronic interstitial changes. Procalcitonin normal. ? WBC improved to 19.2, no longer septic. Procalcitonin still normal at 1.28. However, patient states she continues to have shortness of breath. ? Continue vancomycin, cefepime, azithromycin day 3. ? Follow-up sputum, blood cultures. MRSA PCR positive. ? Pulmonology consulted, recommending continuing above regiment pending cultures. Also recommended IV antibiotics on discharge as patient recently failed outpatient levofloxacin. ? Follow-up morning CBC, CMP, procalcitonin, CRP, ESR, LDH. ? Speech therapy consulted, pending recommendations. Recommended barium swallow study if still inpatient on Tuesday. ? Currently on 3 L nasal cannula, wean to baseline 2 L as tolerated. #COPD exacerbation ? Patient has airway restriction with diffuse rhonchi today, started IV Solu-Medrol 40 mg daily. ? Continue DuoNebs every 6 hours, resumed home Trelegy. ? Follow-up VBG. #Physical deconditioning ? PT/OT consulted, recommended SNF. Will discharge back to [facility] when medically stable. #Insulin-dependent diabetes ? Hemoglobin A1c 8.7%. ? LDSSI, ACHS glucose checks. #HFpEF ? Patient states 3+ lower extremity pitting edema is chronic. ? Follow-up repeat ECHO. ? Resume home Bumex 2 mg daily. #Paroxysmal A-fib ? Continue home metoprolol 25 mg twice daily, Eliquis 5 mg twice daily. Currently rate controlled. #Hypertension ? Hold home BP meds in the setting of soft pressures. #Anxiety/depression ? Continue home BuSpar. DNR/DNI DVT prophylaxis: Lovenox 40 mg
[2024-09-01] MEDS: METHYLPREDNISOLONE SOD SUCC 40MG VIAL 40 MG IV (18:29)
[2024-09-01 18:54] LABS: Lactate Venous 1.3 mmol/L (0.4-2.0); VBG HCO3 21.6 mmol/L (23-30); VBG PH 7.24 mmol/L (7.31-7.41); VBG PO2 104.1 mmol/L (28-40)
[2024-09-01 18:58] LABS: VBG PCO2 51.1 mmol/L (35-51)
[2024-09-01] MEDS: IPRATROPIUM/ALBUTEROL 3 ML NEB 9 ML IH (19:24)
[2024-09-01] MEDS: BUDESONIDE 0.5MG/2ML NEB 0.5 MG IH (19:25)
--- NOTE | 2024-09-01 20:09 | PC.NURSE ---
Aman from [facility] was consulted at this time to confirm the safe compatibility of Vancomycin and Cefepime infusions for co-administration.
[2024-09-01] MEDS: VANCOMYCIN/WATER FOR INJ (PEG) 1.5 GM/300 ML PIGGYBACK IV (20:15)
[2024-09-01] MEDS: INSULIN GLARGINE 100 UNITS/ML 3ML FLEXPEN 20 UNIT SUBCUT (20:40)
[2024-09-01 21:27] LABS: POC Glucose,Bedside 122 (70-110)
[2024-09-01 23:11] LABS: Lactate Venous 1.3 mmol/L (0.4-2.0); VBG HCO3 19.8 mmol/L (23-30); VBG PCO2 37.1 mmol/L (35-51); VBG PH 7.35 mmol/L (7.31-7.41); VBG PO2 188.9 mmol/L (28-40)
[2024-09-02] VITALS (16 sets, daily range): BP systolic 127–152; BP diastolic 66–83; PULSE 70–140; RESP 18–20; TEMP 36.6–36.8; O2SAT 92–97; BMI 33.3
--- NOTE | 2024-09-02 01:26 | PC.NURSE ---
Addendum entered by Patti Dougherty RN 09/02/24 03:27: Patient converted back into normal sinus rhythm at this time. Heart rate is currently 82 bpm. Addendum entered by Patti Dougherty RN 09/02/24 02:58: Pulse oximetry applied. Heart rate is currently 124 bpm. Addendum entered by Patti Dougherty RN 09/02/24 02:20: EKG performed/completed by Kevin HAM. Nancy Sotelo APRN was paged at this time to notify him of the completion and that the unofficial report is ready for review. Amlodipine administered per APR. Addendum entered by Patti Dougherty RN 09/02/24 02:05: Follow-up call conducted with Nancy Sotelo APRN at this time. The patient's heart rate was maintaining in the upper 120s and 130s bpm, heart rhythm was remaining in afib. Patient denies chest pain presently but continues to report a racing heart. Amlodipine and an EKG was ordered as additional interventions to be carried out as appropriately. cardiac monitor technician activity continues to be monitored at this time. Troponin lab draws added. Original Note: At approximately 01:23, the patient's heart rhythm converted from normal sinus rhythm to afib on the environmental monitoring technician, with a heart rate maintaining in the 130s and 140s bpm. The rhythm change was occurring for > 1 minute. Upon assessing the patient, she stated that she could feel [her] heart racing. Vital sign assessment taken (see documentation for 01:25). Nancy Sotelo APRN was paged at 01:27 to notify him about the conversion. Per APR, intravenous metoprolol tartrate was requested to be administered. He additionally requested to page him again for a follow-up, 30 minutes post-administration, of the IV metoprolol tartrate. Breathing treatments were also changed; Duonebs were discontinued, Xopenex was added to APR. cardiac monitor technician activity continues to be monitored at this time.
--- NOTE | 2024-09-02 01:33 | EXP.EVENT.NO ---
1. Problem patient with a long history of respiratory issues. Was called by the nurse that the patient had gone into atrial fibs at approximately 1:30 AM. Patient does have a beta-gordon ordered IV as a as needed dose. Patient remained stable also noting patient has been receiving DuoNebs every every 4 hours related to her breathing. Noting that on the last test the pO2 was greatly increased and oxygen was decreased slightly. exam patient physically unchanged presently in A-fib on the monitor. plan, after talking with the nurse will give 1 dose of beta-gordon IV reevaluate in 30 minutes if not better and blood pressure continuing to hold may try a calcium channel gordon if there is no contraindications. 02:11 patient's heart rate remaining in the 120s., This was after 1 dose of IV beta-gordon. Presently on twice daily beta-gordon during the daytime. Will add amlodipine 10 mg 1 dose as blood pressure remains close to 150. And heart rate remains close to 120, will continue to monitor EKG ordered and troponins are ordered.
[2024-09-02] MEDS: METOPROLOL TARTRATE 5MG/5ML VIAL 5 MG IV ×2 (01:35→21:50)
--- NOTE | 2024-09-02 02:06 | ECG_ITS ---
APPROVED REPORT Exam: Resting ECG HR:130 bpm ECG Measurements Heart Rate 130 AXES QRSd 74 QRS -22 QT 295 T 35 QTc 372 Conclusion ATRIAL FLUTTER/TACHYCARDIA WITH RAPID VENTRICULAR RESPONSE BORDERLINE LEFT AXIS DEVIATION [QRS AXIS < -20] MODERATE ST DEPRESSION [0.05+ mV ST DEPRESSION] ABNORMAL ECG UNCONFIRMED REPORT Electronically signed by : Moe Escoto MD 09/03/2024 07:59:57
[2024-09-02] MEDS: AMLODIPINE 10MG TABLET 10 MG PO (02:23)
--- NOTE | 2024-09-02 04:22 | PC.NURSE ---
Patient is alert and oriented x4; however, occasional disorientation to situation + fatigue was noted throughout the shift. Patient is easily reoriented to understand her plan of care. She was observed to have both wakeful periods and resting periods throughout the majority of the night. Breathing treatments were administered by RTs per APR; other scheduled medications administered as appropriately by me per APR. Additional interventions performed for acute cardiac event this shift (see prior note chain for details). Patient has remained on 3 L of humidified oxygen via nasal cannula; oxygen saturations > 90%. Continuous pulse ox remains intact. VBG collection at 23:00 this shift. First troponin result at 03:33 this shift was < 0.01. On telemetry. Heart rate/rhythm is currently controlled. Expiratory/inspiratory wheezing was heard upon auscultation of her lungs + scattered audible wheezing. Patient reports having a loose but nonproductive cough; thus, a sputum sample remains uncollected. Legs elevated for comfort. Chronic back pain reported. Montgomery catheter remains intact for urinary retention. Urine appearance transparent, without odor, and pale yellow in color. Aspiration precautions were taken during feeding (upright sitting, chin-tuck method, ample time during chewing/swallowing); soft food items were provided. No coughing was observed during intake of thin liquids (patient request despite pending speech eval recommendations) this shift. Patient gets up with assistance during ambulation/transfers; she has expressed sufficient strength to position herself at the edge of the bed ad francisco. ACHS glucose checks performed. At this time, the patient is resting upright in bed without any further complaints. Eyes are closed, respirations are even. No new needs thus far. Bed alarm on. Call light within reach. Contact precautions for MRSA (PCR).
[2024-09-02 04:25] LABS: Troponin I 0.01 ng/ml (0.00-0.034)
[2024-09-02 05:21] LABS: POC Glucose,Bedside 320 (70-110)
[2024-09-02] MEDS: humaLOG 100 UNITS/ML 10ML VIAL (SSI) SUBCUT ×4 (05:27→20:49)
[2024-09-02 06:00] LABS: Hematocrit 31.5 % (37.0-47.0); Hemoglobin 9.1 g/dL (12.2-16.2); Immature Granulocytes % 1.7 %; Mean Corpuscular HGB Conc 28.9 g/dL (31.8-35.4); Mean Corpuscular Hemoglobin 24.6 pg (27.0-31.2); Mean Corpuscular Volume 85.1 fl (81-99); Nucleated Red Blood Cells % 0 %; Platelet Count 279 K/mm3 (142-424); Red Blood Count 3.70 M/mm3 (4.20-5.40); Red Cell Distribution Width-SD 50.3 fL; White Blood Count 14.0 K/mm3 (4.8-10.8)
[2024-09-02 06:08] LABS: Alanine Aminotransferase 16 U/L (12-78); Albumin Level 3.1 g/dl (3.5-5.0); Albumin/Globulin Ratio 0.9 (1.1-1.8); Alkaline Phosphatase 157 U/L (38-126); Anion Gap 16.1 mEq/L (5-15); Aspartate Amino Transferase 42 U/L (14-36); Bilirubin,Total 0.7 mg/dl (0.2-1.3); Blood Urea Nitrogen 68 mg/dl (7-17); Calcium 8.3 mg/dl (8.4-10.2); Carbon Dioxide 19 mmol/L (22.0-30.0); Chloride 107 mmol/L (98-107); Creatinine Clearance Estimated 38 mL/min (50-200); Creatinine,Serum 2.20 mg/dl (0.52-1.04); Estimated Glomerular Filt Rate 23 ml/min (>60); GFR (African American) 27 ML/MIN (>60); Globulin 3.4 g/dL (1.3-3.2); Glucose 330 mg/dl (74-100); Magnesium 1.9 mg/dl (1.6-2.3); Potassium 5.1 mmoL/L (3.5-5.1); Sodium 137 mmol/L (136-145); Total Protein,Serum 6.5 g/dl (6.3-8.2)
[2024-09-02] MEDS: BUDESONIDE 0.5MG/2ML NEB 0.5 MG IH ×2 (06:22→18:27)
[2024-09-02] MEDS: LEVALBUTEROL 1.25MG/3ML NEB 1.25 MG IH ×5 (06:23→22:10)
[2024-09-02 06:59] LABS: Troponin I 0.01 ng/ml (0.00-0.034)
--- NOTE | 2024-09-02 08:02 | XR_ITS ---
PROCEDURE INFORMATION: Exam: XR Chest Exam date and time: 09/02/2024 8:03 AM Age: 64 years old Clinical indication: Shortness of breath; Additional info: SOB TECHNIQUE: Imaging protocol: Radiologic exam of the chest. Views: 1 view. COMPARISON: CT ANGIO CHEST PE PROTOCOL 08/30/2024 5:09 PM FINDINGS: Tubes, catheters and devices: Loop recorder on the left Lungs: Patchy bilateral opacities may represent multifocal pneumonia. Pleural spaces: Small right pleural effusion. Heart/Mediastinum: Mild cardiomegaly Bones/joints: Unremarkable. IMPRESSION: 1. Patchy bilateral opacities may represent multifocal pneumonia. 2. Small right pleural effusion.
[2024-09-02] MEDS: METHYLPREDNISOLONE SOD SUCC 40MG VIAL 40 MG IV (09:04)
[2024-09-02] MEDS: BUMETANIDE 1MG/4ML VIAL 2 MG IV ×3 (09:04→20:58)
[2024-09-02] MEDS: IRBESARTAN 75MG TABLET 37.5 MG PO (09:05)
[2024-09-02] MEDS: METOPROLOL TARTRATE 25MG TABLET 25 MG PO ×2 (09:05→20:31)
[2024-09-02] MEDS: AZITHROMYCIN 250MG TABLET 500 MG PO (09:06)
[2024-09-02] MEDS: CEFEPIME HCL 2 GM in 0.9 % SODIUM CHLORIDE 100 ML IV ×2 (09:06→21:00)
[2024-09-02] MEDS: DOCUSATE SODIUM 100 MG CAPSULE PO ×2 (09:06→20:31)
[2024-09-02] MEDS: APIXABAN 5MG TABLET 5 MG PO ×2 (09:06→20:31)
[2024-09-02] MEDS: GABAPENTIN 100MG CAPSULE 200 MG PO ×2 (09:06→20:47)
[2024-09-02] MEDS: BUSPIRONE HCL 10 MG TABLET PO ×2 (09:06→20:31)
[2024-09-02] MEDS: FAMOTIDINE 20MG TABLET 20 MG PO ×2 (09:06→20:31)
--- NOTE | 2024-09-02 11:56 | CT_ITS ---
PROCEDURE INFORMATION: Exam: CT Abdomen And Pelvis Without Contrast Exam date and time: 09/02/2024 12:37 PM Age: 64 years old Clinical indication: Abdominal pain; Localized; Right upper quadrant (ruq); Additional info: Ruq abdominal pain TECHNIQUE: Imaging protocol: Computed tomography of the abdomen and pelvis without contrast. Radiation optimization: All CT scans at this facility use at least one of these dose optimization techniques: automated exposure control; mA and/or kV adjustment per patient size (includes targeted exams where dose is matched to clinical indication); or iterative reconstruction. COMPARISON: CT BONY PELVIS 05/23/2024 3:47 AM FINDINGS: Lungs: Consolidation in both bases may represent atelectasis or pneumonia. . Pleural spaces: Moderate right pleural effusion. Smaller left pleural effusion. Liver: Lobulated liver may reflect cirrhosis Gallbladder and biliary ducts: Cholecystectomy Pancreas: Pancreatic atrophy Spleen: Normal. No splenomegaly. Adrenal glands: Normal. No mass. Kidneys and ureters: Normal. No hydronephrosis. Stomach and bowel: Findings consistent with constipation. Appendix: No evidence of appendicitis. Intraperitoneal space: Unremarkable. No free air. No significant fluid collection. Vasculature: Unremarkable. No abdominal aortic aneurysm. Lymph nodes: Unremarkable. No enlarged lymph nodes. Urinary bladder: Montgomery catheter in the bladder Reproductive: Surgical resection of the uterus Bones/joints: Compression screws in both hips. A healing left hip fracture. Vertebroplasties in the lumbar spine Soft tissues: Edema in both flanks IMPRESSION: 1. Moderate right pleural effusion. Smaller left pleural effusion. 2. Consolidation in both bases may represent atelectasis or pneumonia. .
[2024-09-02] MEDS: ISOSORBIDE MONO 30MG TAB.ER.24H 30 MG PO (12:14)
[2024-09-02] MEDS: OXYCODONE 5MG IMMEDIATE RELEASE TABLET 10 MG PO ×2 (12:20→20:45)
[2024-09-02 12:21] LABS: Lipase 12 U/L (23-300)
--- NOTE | 2024-09-02 12:21 | EXP.PN ---
Subjective *Date: 09/02/24 *Time: 12:21 Interval history: Patient is breathing slightly improved today, continues to have airway restriction. Continue breathing treatments, steroids, antibiotics, diuretics. Follow-up CXR in the morning, if not better we will consider bronchoscopy. Exam Data for Last 24 hours Vital signs and Labs for Last 24 Hours: Temp Pulse Resp BP Pulse Ox O2 Del Method O2 Flow Rate 98.1 F 73 18 151/71 H 96 Nasal Cannula 2 09/02/24 11:55 09/02/24 11:55 09/02/24 11:55 09/02/24 11:55 09/02/24 11:55 09/02/24 11:55 09/02/24 11:55 Laboratory Results - last 24 hr 08/31/24 16:52: POC Glucose 258 H 09/01/24 16:51: POC Glucose 214 H 09/01/24 18:22: VBG pH 7.24 L, VBG pCO2 51.1 H, VBG pO2 104.1 H, VBG HCO3 21.6 L, VBG Total CO2 23.1, VBG O2 Saturation 97.7 H, VBG Base Excess -5.8 L, VBG Lactic Acid 1.3 09/01/24 20:31: POC Glucose 122 H 09/01/24 23:00: VBG pH 7.35, VBG pCO2 37.1, VBG pO2 188.9 H, VBG HCO3 19.8 L, VBG Total CO2 21.0 L, VBG O2 Saturation 99.3 H, VBG Base Excess -5.8 L, VBG Lactic Acid 1.3 09/02/24 03:33: Troponin I 0.01 09/02/24 05:13: WBC 14.0 H D, RBC 3.70 L, Hgb 9.1 L, Hct 31.5 L, MCV 85.1, MCH 24.6 L, MCHC 28.9 L, RDW 16.0, Plt Count 279, MPV 10.5 H, Neut % (Auto) 89.1 H, Lymph % (Auto) 4.7 L, [place] % (Auto) 4.1, Eos % (Auto) 0.0 L, Baso % (Auto) 0.4, Neut # (Auto) 12.5 H, Lymph # (Auto) 0.7, [place] # (Auto) 0.6, Eos # (Auto) 0.0, Baso # (Auto) 0.1, Sodium 137, Potassium 5.1 D, Chloride 107, Carbon Dioxide 19 L, Anion Gap 16.1 H, BUN 68 H, Creatinine 2.20 H, Estimated Creat Clear 38, Estimated GFR 23 L, Est GFR ( Amer) 27 L, Glucose 330 H D, POC Glucose 320 H*, Calcium 8.3 L, Magnesium 1.9 D, Total Bilirubin 0.7, AST 42 H D, ALT 16, Alkaline Phosphatase 157 H, Troponin I 0.01, Total Protein 6.5, Albumin 3.1 L, Globulin 3.4 H, Albumin/Globulin Ratio 0.9 L I & O for Last 24 hours: Intake & Output 08/30/24 08/31/24 09/01/24 09/02/24 23:59 23:59 23:59 23:59 Intake Total 1938 / 2398 1120 / 1700 880 / 880 Output Total 1330 / 1330 2855 / 3155 1400 / 1400 Balance 608 / 1068 -1735 / -1455 -520 / -520 Weight 77.111 kg 85.275 kg 92.306 kg 90.764 kg Microbiology Reports for the Last 24 Hours: Microbiology 08/31/24 02:43 Urine,Clean Catch Urine Culture - Final NO GROWTH AFTER 48 HOURS 08/30/24 14:44 Blood Blood Culture - Preliminary NO GROWTH AFTER 48 HOURS 08/30/24 14:39 Blood Blood Culture - Preliminary NO GROWTH AFTER 48 HOURS Constitutional Constitutional: no acute distress *Routine HEENT Exam Head: Present normocephalic Eye: Present EOMI and PERRL ENT: Present mucous membranes moist *Routine Neck Exam Neck: Present supple; Absent lymphadenopathy *Routine Respiratory Exam Respiratory: Present rhonchi, wheezes and diminished air movement; Absent CTA bilaterally *Routine Cardiovascular Exam Cardiovascular: Present RRR *Routine Abdominal Exam Abdominal: Present soft and normoactive bowel sounds; Absent tenderness *Routine Extremities Exam Extremities: Present edema; Absent cyanosis or clubbing *Routine Skin Exam Skin: Present warm; Absent rash *Routine Neurological Exam Neurological: Present alert and oriented X3 Assessment and Plan *Assessment and plan (1) Pneumonia: Status: Acute Category: Medical Code(s): J18.9 - Pneumonia, unspecified organism Plan Jania Bartlett is a 64-year-old female with a medical history of COPD on 2 L baseline, greater than 30 pack smoking history, HFpEF, insulin-dependent diabetes, hypertension, anxiety/depression, who presents with 2-week onset of progressive shortness of breath and cough. Patient states that she is not able to cough up anything, but does endorse right-sided pleuritic chest pain and now generalized chest pain from coughing. Also endorses nonspecific generalized abdominal pains, denies fever/chills. States her lower extremity edema is at baseline. Workup in the ED significant for WBC 22.4, CRP 51.8, procalcitonin normal, CTA chest revealing right lower lobe pneumonia. Patient is also tachycardic, tachypneic and now requiring 4 L nasal cannula. Patient was given ceftriaxone, azithromycin. Fluids were held due to suspicion of fluid overload. Case discussed by ED provider initially was made to admit patient for sepsis secondary to community-acquired pneumonia. #Acute on chronic hypoxic respiratory failure #Community-acquired pneumonia #Sepsis ? Presented with 2-weeks of progressive shortness of breath, nonproductive cough. Initial WBC 22.4, with tachypnea. ? CTA chest revealed right lower lobe pneumonia, CXR shows chronic interstitial changes. Procalcitonin normal. ? WBC improved to 19.2, no longer septic. Procalcitonin still normal at 1.28. However, patient states she continues to have shortness of breath which more likely represents volume overload/pulmonary edema and COPD exacerbation. ? Continue vancomycin, cefepime, azithromycin day 3. ? Follow-up blood cultures. MRSA PCR positive. Patient unable to cough sputum. ? CXR today shows worsening multifocal opacities. Though in the setting of volume overload, diuresing well. ? Pulmonology consulted, recommended n.p.o. at midnight for possible thoracoscopy tomorrow if CXR does not improve tomorrow. Also recommended IV antibiotics on discharge as patient recently failed outpatient levofloxacin. ? Follow-up morning CBC, CMP. ? Speech therapy consulted, pending recommendations. Recommended barium swallow study if still inpatient on Tuesday. ? Weaned to baseline 2 L nasal cannula. #HFpEF exacerbation #RAGHAV on CKD ? Presented with 3+ lower extremity pitting edema. Now has pulmonary edema. ? Continue IV Bumex 2 mg twice daily, diuresing well. Holding off on spironolactone due to hyperkalemia. -1387 mL so far. ? Creatinine improving from 2.5-2.2 with diuresis, baseline around 1.5. ? ECHO 08/31/2024 shows a normal biventricular systolic function, increased LV wall thickness but normal diastolic function. #COPD exacerbation ? Patient continues to have airway restriction with diffuse rhonchi today. VBG yesterday showed acute hypercapnia. ? Continue ipratropium/levalbuterol every 4 hours, Pulmicort twice daily, IV Solu-Medrol 40 mg daily. #Physical deconditioning ? PT/OT consulted, recommended SNF. [facility] discharge back to [facility] when medically stable. #Insulin-dependent diabetes ? Hemoglobin A1c 8.7%. ? Bl glucose 320 this morning, increased Lantus to 30 units nightly. ood ? LDSSI, ACHS glucose checks. #Paroxysmal A-fib ? Continue home metoprolol 25 mg twice daily, Eliquis 5 mg twice daily. Currently rate controlled. ? Has had episodes of A-fib RVR with breathing treatments, switch to levalbuterol. ? IV Lopressor 5 mg as needed. #Hypertension ? Continue home Imdur 30 mg daily, hold home ARB due to RAGHAV. #Anxiety/depression ? Continue home BuSpar. DNR/DNI DVT prophylaxis: Lovenox 40 mg
[2024-09-02] MEDS: IPRATROPIUM BROMIDE 0.5 MG/2.5ML SOLUTION IH ×3 (14:39→22:10)
[2024-09-02] MEDS: INSULIN GLARGINE 100 UNITS/ML 3ML FLEXPEN 30 UNIT SUBCUT (20:50)
[2024-09-02 21:12] LABS: POC Glucose,Bedside 288 (70-110)
--- NOTE | 2024-09-02 21:42 | ECG_ITS ---
APPROVED REPORT Exam: Resting ECG HR:85 bpm ECG Measurements Heart Rate 85 AXES AZ 144 P 11 QRSd 77 QRS -14 QT 362 T 12 QTc 405 Conclusion SINUS RHYTHM MINIMAL VOLTAGE CRITERIA FOR LVH, CONSIDER NORMAL VARIANT [MEETS CRITERIA IN ONE OF: R(aVL), S(V1), R(V5), R(V5/V6)+S(V1)] MINIMAL ST DEPRESSION [0.025+ mV ST DEPRESSION] BORDERLINE ECG UNCONFIRMED REPORT Electronically signed by : Moe Escoto MD 09/03/2024 07:59:25
--- NOTE | 2024-09-02 21:47 | EXP.EVENT.NO ---
Problem: Nurse from the floor contact me the patient had increased heart rate twelve-lead was given showed A-fib patient converted while doing this going back into a sinus rhythm but still with slightly elevated heart rate.. Also talk to respiratory therapist it was time for her breathing treatment patient has sound wet and rattling in both lungs he was concerned whether or not to stimulate the heart rate. Told the respiratory therapist to go ahead and give the breathing treatments as this was her main and underlying cause of problem exam : Patient remained stable converting back from an A-fib may be a flutter into a sinus rhythm, continues with red rattling lungs with some shortness of breath. plan: Talked with both the nurse respiratory therapist and nurse will go ahead and give a as needed dose of the beta-gordon Toprol IV. Respiratory therapist has been requested to go ahead and give the breathing treatment despite patient's history of A-fib. She has done this 3 times in a row at night.. Patient has already remained stable if the metoprolol is not successful we will add a dose of probably Cardizem here in the future as was able to do that last night and patient converted in about an hour it stayed that way until now.
[2024-09-02] MEDS: BENZONATATE 100MG CAPSULE 200 MG PO (23:58)
[2024-09-03] VITALS (23 sets, daily range): BP systolic 114–164; BP diastolic 62–88; PULSE 68–100; RESP 16–22; TEMP 36.1–36.8; O2SAT 92–96; BMI 31.8
[2024-09-03] MEDS: LEVALBUTEROL 1.25MG/3ML NEB 1.25 MG IH ×3 (02:18→18:19)
[2024-09-03] MEDS: IPRATROPIUM BROMIDE 0.5 MG/2.5ML SOLUTION IH ×3 (02:18→18:19)
--- NOTE | 2024-09-03 02:26 | PC.NURSE ---
Pt. was up in a chair, coughing and anxious. Weather report was bad and evacuation plan was in place. Pt. heard staff talking about moving patients is needed. Patients heart rate increased to 130's-150's. Pt. coughing a lot at this time and was short of breath and wheezing. Drake Sotelo APRN notified, ordered an EKG and pt. had a PRN betablocker. Central monitor appeared to be Afib RVR. as Ekg was hooked up pt. converted to SR HR 90's.Drake Sotelo APRN notified and PRN Metoprolol 5 mg IV given. HR decreased to 80's. Resp therapist at bedside and consulted with Devi Sotelo APRN about Neb treatments due to increased HR. Per Nancy Sotelo ok to give neb treatments for the wheezing. Pt. tolerated treatment well. Pt. also requested something for cough. Tessalon Pearls ordered and given. Pt. able to rest easier after the pearls given.
[2024-09-03] MEDS: BUDESONIDE 0.5MG/2ML NEB 0.5 MG IH ×2 (06:07→18:19)
[2024-09-03 06:40] LABS: POC Glucose,Bedside 127 (70-110)
[2024-09-03] MEDS: OXYCODONE 5MG IMMEDIATE RELEASE TABLET 10 MG PO (06:41)
--- NOTE | 2024-09-03 07:36 | PC.NURSE ---
Pt. is alert and orientated x 4. Pt. is on oxygen 2 liters per N/C. Pt. continues to have SOB and wheezing on and off. Pt. has a very congested cough but not able to bring up much sputum. Pt. had an episode of Afib last night received Metoprolol IV and converted back to SR. Pt. has a fong cath in place draining adequate amounts of urine. Pt. c/o many aches and pains medicated for pain per MAR. Pt. rested well overnight. Personal items and call lira in reach.
--- NOTE | 2024-09-03 07:38 | EXP.PHA.PN ---
Subjective *Date: 09/03/24 *Time: 07:38 Medical Exam Vital signs and Labs for Last 24 Hours: Vital Signs Temp Pulse Pulse Resp BP Pulse Ox O2 Del Method 09/03/24 07:00 Nasal Cannula 09/03/24 06:08 75 09/03/24 06:08 82 09/03/24 06:08 96 Nasal Cannula 09/03/24 05:00 Nasal Cannula 09/03/24 04:00 98.1 F 75 20 155/74 H 92 L Nasal Cannula 09/03/24 04:00 75 09/03/24 03:04 77 09/03/24 03:00 Nasal Cannula 09/03/24 02:03 76 09/03/24 01:00 Nasal Cannula 09/03/24 00:00 75 09/03/24 00:00 98.0 F 75 18 126/62 94 L Nasal Cannula 09/02/24 23:00 Nasal Cannula 09/02/24 22:30 78 09/02/24 22:10 77 09/02/24 21:00 Nasal Cannula 09/02/24 20:00 20 94 L Nasal Cannula 09/02/24 20:00 125 H 09/02/24 19:39 98.1 F 83 20 127/66 94 L Nasal Cannula 09/02/24 19:06 Nasal Cannula 09/02/24 19:04 78 09/02/24 19:04 76 09/02/24 18:05 Nasal Cannula 09/02/24 17:00 Nasal Cannula 09/02/24 16:00 80 09/02/24 16:00 98.2 F 76 18 132/71 92 L Nasal Cannula 09/02/24 15:00 Room Air 09/02/24 14:40 73 09/02/24 14:40 76 09/02/24 14:40 97 Nasal Cannula 09/02/24 13:00 Nasal Cannula 09/02/24 12:00 70 09/02/24 11:55 98.1 F 73 18 151/71 H 96 Nasal Cannula 09/02/24 11:00 Nasal Cannula 09/02/24 09:00 Room Air 09/02/24 08:00 Nasal Cannula 09/02/24 08:00 80 09/02/24 08:00 98 F 79 18 152/75 H 96 Nasal Cannula O2 Flow Rate FiO2 09/03/24 07:00 2 09/03/24 06:08 09/03/24 06:08 09/03/24 06:08 2 09/03/24 05:00 2 09/03/24 04:00 2 09/03/24 04:00 09/03/24 03:04 09/03/24 03:00 2 09/03/24 02:03 09/03/24 01:00 2 09/03/24 00:00 09/03/24 00:00 2 09/02/24 23:00 2 09/02/24 22:30 09/02/24 22:10 09/02/24 21:00 2 09/02/24 20:00 2 09/02/24 20:00 09/02/24 19:39 2 09/02/24 19:06 2 28 09/02/24 19:04 09/02/24 19:04 09/02/24 18:05 2 09/02/24 17:00 3 09/02/24 16:00 09/02/24 16:00 2 09/02/24 15:00 09/02/24 14:40 09/02/24 14:40 09/02/24 14:40 2 09/02/24 13:00 3 09/02/24 12:00 09/02/24 11:55 2 09/02/24 11:00 3 09/02/24 09:00 09/02/24 08:00 3 09/02/24 08:00 09/02/24 08:00 2 Intake and Output 09/02/24 09/02/24 09/03/24 15:59 23:59 07:59 Intake Total 560 / 1240 100 / 100 Output Total 750 / 3200 1100 / 3200 1350 / 1350 Balance -190 / -1960 -1099 / -1960 -1250 / -1250 Intake: Intake, Oral Amount 560 / 740 Intake, Total IV Amount 100 / 100 Cefepime HCl 2 gm In 0.9 % 100 / 100 Sodium Chloride 100 ml @ 200 mls/hr IV Q12H [facility] Rx#:[id number] Output: Output, Urine Amount 750 / 3200 1100 / 3200 1350 / 1350 Other: Number of Unmeasured Voids 0 0 Weight 90.764 kg 86.727 kg Patient Weight 09/03/24 23:59 Weight 86.727 kg Laboratory Results - last 24 hr 09/02/24 05:13: Lipase 12 L 09/02/24 20:26: POC Glucose 288 H 09/03/24 06:31: POC Glucose 127 H I & O for Labs for Last 24 Hours: Intake & Output 08/31/24 09/01/24 09/02/24 09/03/24 23:59 23:59 23:59 23:59 Intake Total 1938 / 2398 1120 / 1700 1140 / 1240 100 / 100 Output Total 1330 / 1330 2855 / 3155 3000 / 3200 1350 / 1350 Balance 608 / 1068 -1735 / -1455 -1860 / -1960 -1250 / -1250 Weight 85.275 kg 92.306 kg 90.764 kg 86.727 kg Microbiology Reports for the Last 24 Hours: Microbiology 08/31/24 02:43 Urine,Clean Catch Urine Culture - Final NO GROWTH AFTER 48 HOURS The patient's infection will respond to the chosen ABx?: Yes (SPUTUM UNCOLLECTED, URINE/BLOOD CX NO GROWTH AT 48 HR, AFEBRILE OVER 24 HR) Is the patient receiving the right drug, dose, and route?: Yes Could a more targeted ABx be ordered?: No How long ABx needed (days)?: 7
--- NOTE | 2024-09-03 07:49 | XR_ITS ---
FINAL REPORT TECHNIQUE: Single view chest CLINICAL HISTORY: f/u pnuemonia, edema COMPARISON: 09/02/2024 FINDINGS: A single view of the chest was obtained. The heart and mediastinum are within normal limits. There is a stable mass or peripheral infiltrate in the right midlung which is stable. There are diffuse, chronic coarse interstitial changes, similar to prior exam. There is a small right pleural effusion. There is no pneumothorax. IMPRESSION: No significant change. Reviewed, Interpreted and Dictated by Marcia Luque MD Transcribed by Milagros López Authenticated and [facility]
--- NOTE | 2024-09-03 08:00 | SW/DCPLANNER ---
Addendum entered by Sharla Somers 09/05/24 14:46: Per Sarai w/ [facility] patient is already established w/ outpatient psych at their facility. I have updated Sarai that patient may discharge tomorrow. Original Note: Patient currently resides at [facility] level of care. I will continue to follow up w/ Sarai at [facility] until medically stable for discharge. Updated patient information has been faxed.
[2024-09-03] MEDS: BUSPIRONE HCL 10 MG TABLET PO ×2 (08:25→20:36)
[2024-09-03] MEDS: AZITHROMYCIN 250MG TABLET 500 MG PO (08:26)
[2024-09-03] MEDS: METOPROLOL TARTRATE 25MG TABLET 25 MG PO ×2 (08:26→20:36)
[2024-09-03] MEDS: ISOSORBIDE MONO 30MG TAB.ER.24H 30 MG PO (08:26)
[2024-09-03] MEDS: APIXABAN 5MG TABLET 5 MG PO ×2 (08:26→20:36)
[2024-09-03] MEDS: METHYLPREDNISOLONE SOD SUCC 40MG VIAL 40 MG IV (08:28)
[2024-09-03] MEDS: CEFEPIME HCL 2 GM in 0.9 % SODIUM CHLORIDE 100 ML IV ×2 (08:28→20:33)
[2024-09-03] MEDS: BENZONATATE 100MG CAPSULE 200 MG PO ×2 (08:28→20:36)
--- NOTE | 2024-09-03 09:23 | CARE MANAGER ---
Current Medications Acetaminophen (Acetaminophen 325mg Tab) 650 mg PO Q4HP PRN PRN Reason: Fever or Mild Pain (1-3) Stop: 09/29/24 18:45 Apixaban (Apixaban 5mg Tablet) 5 mg PO BID CHRISTOPHER Stop: 09/30/24 20:59 Last Admin: 09/03/24 08:26 Dose: 5 mg Aripiprazole (Aripiprazole 10mg Tablet) 10 mg PO DAILY CHRISTOPHER Stop: 10/01/24 08:59 Last Admin: 09/03/24 08:26 Dose: 10 mg Azithromycin (Azithromycin 250mg Tablet) 500 mg PO DAILY CHRISTOPHER Stop: 09/10/24 10:59 Last Admin: 09/03/24 08:26 Dose: 500 mg Benzonatate (Benzonatate 100mg Capsule) 200 mg PO TID CHRISTOPHER Stop: 10/03/24 08:59 Last Admin: 09/03/24 08:28 Dose: 200 mg Bromphen/Dextromethorphan/Pseudoeph (Bromphen/Dm/Pse Cough Syrup 5ml) 5 ml PO Q6HP PRN PRN Reason: Cough Stop: 10/02/24 23:40 Budesonide (Budesonide 0.5mg/2ml Neb) 0.5 mg IH BIDRT [facility] Stop: 10/01/24 19:04 Last Admin: 09/03/24 06:07 Dose: 0.5 mg Bumetanide (Bumetanide 1mg/4ml Vial) 2 mg IV BIDL CHRISTOPHER Stop: 10/01/24 09:19 Last Admin: 09/02/24 17:28 Dose: 2 mg Buspirone HCl (Buspirone Hcl 10 Mg Tablet) 10 mg PO BID CHRISTOPHER Stop: 09/30/24 20:59 Last Admin: 09/03/24 08:25 Dose: 10 mg Docusate Sodium (Docusate Sodium 100 Mg Capsule) 100 mg PO BID CHRISTOPHER Stop: 10/02/24 08:59 Last Admin: 09/02/24 20:31 Dose: 100 mg Famotidine (Famotidine 20mg Tablet) 20 mg PO HS [facility] Stop: 10/02/24 08:59 Gabapentin (Gabapentin 100mg Capsule) 200 mg PO TID CHRISTOPHER Stop: 10/01/24 08:59 Last Admin: 09/02/24 20:47 Dose: 200 mg Cefepime HCl 2 gm/ Sodium (Chloride) 100 mls @ 200 mls/hr IV Q12H [facility] Stop: 09/10/24 08:59 Last Admin: 09/03/24 08:28 Dose: 200 mls/hr Vancomycin/PEG/NADA/Lysine/Water (Vancomycin 1.5gm/300ml (Peg) Premix) 1.5 gm in 300 mls @ 150 mls/hr IV Q36H [facility] Stop: 09/10/24 08:59 Last Admin: 09/01/24 20:15 Dose: 150 mls/hr Insulin Glargine (Insulin Glargine 100 Units/Ml 3ml Flexpen) 30 unit SUBCUT HS [facility] Stop: 10/02/24 20:59 Last Admin: 09/02/24 20:50 Dose: 30 unit Insulin Human Lispro (Humalog 100 Units/Ml 10ml Vial (Ssi)) 0 unit SUBCUT [facility]; Protocol Stop: 09/29/24 20:59 Last Admin: 09/03/24 06:44 Dose: Not Given Ipratropium [place] (Ipratropium [place] 0.5 Mg/2.5ml Solution) 0.5 mg IH Q4RT [facility] Stop: 10/02/24 13:59 Last Admin: 09/03/24 06:07 Dose: 0.5 mg Isosorbide Mononitrate (Isosorbide Cannon 30mg Tab.Er.24h) 30 mg PO DAILY [facility] Stop: 10/02/24 11:54 Last Admin: 09/03/24 08:26 Dose: 30 mg Levalbuterol HCl (Levalbuterol 1.25mg/3ml Neb) 1.25 mg IH Q4RT [facility] Stop: 10/02/24 13:59 Last Admin: 09/03/24 06:07 Dose: 1.25 mg Methylprednisolone Sodium Succinate (Methylprednisolone Sod Succ 40mg Vial) 40 mg IV DAILY [facility] Stop: 10/01/24 18:24 Last Admin: 09/03/24 08:28 Dose: 40 mg Metoprolol Tartrate (Metoprolol Tartrate 25mg Tablet) 25 mg PO BID [facility] Stop: 09/30/24 19:39 Last Admin: 09/03/24 08:26 Dose: 25 mg Metoprolol Tartrate (Metoprolol Tartrate 5mg/5ml Vial) 5 mg IV Q6HP PRN PRN Reason: HR > 120 Stop: 09/30/24 20:10 Last Admin: 09/02/24 21:50 Dose: 5 mg Ondansetron HCl (Ondansetron 4mg/2ml Vial) 4 mg IV Q6HP PRN PRN Reason: Nausea Stop: 09/29/24 18:45 Oxycodone HCl (Oxycodone 5mg Immediate Release Tablet) 5 mg PO Q4HP PRN PRN Reason: Moderate Pain (4-6) Stop: 09/30/24 04:51 Last Admin: 09/01/24 17:09 Dose: 5 mg Oxycodone HCl (Oxycodone 5mg Immediate Release Tablet) 10 mg PO Q4HP PRN PRN Reason: Severe Pain (7-10) Stop: 09/30/24 04:51 Last Admin: 09/03/24 06:41 Dose: 10 mg Polyethylene Glycol (Polyethylene Glycol 3350 17 Gm Packet) 17 gm PO DAILY CHRISTOPHER Stop: 10/02/24 12:19 Last Admin: 09/02/24 17:29 Dose: Not Given Sodium Chloride (Sodium Chloride 3% 15ml Neb) 3 ml IH ONCE PRN PRN Reason: INDUCE SPUTUM COLLECTION Stop: 09/29/24 18:42 Sodium Chloride (Sodium Chloride 0.9% 10ml Flush Syringe) 10 ml IV NEEDED PRN PRN Reason: Maintain IV Site Stop: 09/30/24 07:30
--- NOTE | 2024-09-03 09:23 | CARE MANAGER ---
Current Medications Acetaminophen (Acetaminophen 325mg Tab) 650 mg PO Q4HP PRN PRN Reason: Fever or Mild Pain (1-3) Stop: 09/29/24 18:45 Apixaban (Apixaban 5mg Tablet) 5 mg PO BID CHRISTOPHER Stop: 09/30/24 20:59 Last Admin: 09/03/24 08:26 Dose: 5 mg Aripiprazole (Aripiprazole 10mg Tablet) 10 mg PO DAILY CHRISTOPHER Stop: 10/01/24 08:59 Last Admin: 09/03/24 08:26 Dose: 10 mg Azithromycin (Azithromycin 250mg Tablet) 500 mg PO DAILY CHRISTOPHER Stop: 09/10/24 10:59 Last Admin: 09/03/24 08:26 Dose: 500 mg Benzonatate (Benzonatate 100mg Capsule) 200 mg PO TID CHRISTOPHER Stop: 10/03/24 08:59 Last Admin: 09/03/24 08:28 Dose: 200 mg Bromphen/Dextromethorphan/Pseudoeph (Bromphen/Dm/Pse Cough Syrup 5ml) 5 ml PO Q6HP PRN PRN Reason: Cough Stop: 10/02/24 23:40 Budesonide (Budesonide 0.5mg/2ml Neb) 0.5 mg IH BIDRT [facility] Stop: 10/01/24 19:04 Last Admin: 09/03/24 06:07 Dose: 0.5 mg Bumetanide (Bumetanide 1mg/4ml Vial) 2 mg IV BIDL CHRISTOPHER Stop: 10/01/24 09:19 Last Admin: 09/02/24 17:28 Dose: 2 mg Buspirone HCl (Buspirone Hcl 10 Mg Tablet) 10 mg PO BID CHRISTOPHER Stop: 09/30/24 20:59 Last Admin: 09/03/24 08:25 Dose: 10 mg Docusate Sodium (Docusate Sodium 100 Mg Capsule) 100 mg PO BID CHRISTOPHER Stop: 10/02/24 08:59 Last Admin: 09/02/24 20:31 Dose: 100 mg Famotidine (Famotidine 20mg Tablet) 20 mg PO HS [facility] Stop: 10/02/24 08:59 Gabapentin (Gabapentin 100mg Capsule) 200 mg PO TID CHRISTOPHER Stop: 10/01/24 08:59 Last Admin: 09/02/24 20:47 Dose: 200 mg Cefepime HCl 2 gm/ Sodium (Chloride) 100 mls @ 200 mls/hr IV Q12H [facility] Stop: 09/10/24 08:59 Last Admin: 09/03/24 08:28 Dose: 200 mls/hr Vancomycin/PEG/[place]/Lysine/Water (Vancomycin 1.5gm/300ml (Peg) Premix) 1.5 gm in 300 mls @ 150 mls/hr IV Q36H CHRISTOPHER Stop: 09/10/24 08:59 Last Admin: 09/01/24 20:15 Dose: 150 mls/hr Insulin Glargine (Insulin Glargine 100 Units/Ml 3ml Flexpen) 30 unit SUBCUT HS [facility] Stop: 10/02/24 20:59 Last Admin: 09/02/24 20:50 Dose: 30 unit Insulin Human Lispro (Humalog 100 Units/Ml 10ml Vial (Ssi)) 0 unit SUBCUT [facility]; Protocol Stop: 09/29/24 20:59 Last Admin: 09/03/24 06:44 Dose: Not Given Ipratropium [place] (Ipratropium [place] 0.5 Mg/2.5ml Solution) 0.5 mg IH Q4RT [facility] Stop: 10/02/24 13:59 Last Admin: 09/03/24 06:07 Dose: 0.5 mg Isosorbide Mononitrate (Isosorbide [place] 30mg Tab.Er.24h) 30 mg PO DAILY [facility] Stop: 10/02/24 11:54 Last Admin: 09/03/24 08:26 Dose: 30 mg Levalbuterol HCl (Levalbuterol 1.25mg/3ml Neb) 1.25 mg IH Q4RT [facility] Stop: 10/02/24 13:59 Last Admin: 09/03/24 06:07 Dose: 1.25 mg Methylprednisolone Sodium Succinate (Methylprednisolone Sod Succ 40mg Vial) 40 mg IV DAILY [facility] Stop: 10/01/24 18:24 Last Admin: 09/03/24 08:28 Dose: 40 mg Metoprolol Tartrate (Metoprolol Tartrate 25mg Tablet) 25 mg PO BID [facility] Stop: 09/30/24 19:39 Last Admin: 09/03/24 08:26 Dose: 25 mg Metoprolol Tartrate (Metoprolol Tartrate 5mg/5ml Vial) 5 mg IV Q6HP PRN PRN Reason: HR > 120 Stop: 09/30/24 20:10 Last Admin: 09/02/24 21:50 Dose: 5 mg Ondansetron HCl (Ondansetron 4mg/2ml Vial) 4 mg IV Q6HP PRN PRN Reason: Nausea Stop: 09/29/24 18:45 Oxycodone HCl (Oxycodone 5mg Immediate Release Tablet) 5 mg PO Q4HP PRN PRN Reason: Moderate Pain (4-6) Stop: 09/30/24 04:51 Last Admin: 09/01/24 17:09 Dose: 5 mg Oxycodone HCl (Oxycodone 5mg Immediate Release Tablet) 10 mg PO Q4HP PRN PRN Reason: Severe Pain (7-10) Stop: 09/30/24 04:51 Last Admin: 09/03/24 06:41 Dose: 10 mg Polyethylene Glycol (Polyethylene Glycol 3350 17 Gm Packet) 17 gm PO DAILY CHRISTOPHER Stop: 10/02/24 12:19 Last Admin: 09/02/24 17:29 Dose: Not Given Sodium Chloride (Sodium Chloride 3% 15ml Neb) 3 ml IH ONCE PRN PRN Reason: INDUCE SPUTUM COLLECTION Stop: 09/29/24 18:42 Sodium Chloride (Sodium Chloride 0.9% 10ml Flush Syringe) 10 ml IV NEEDED PRN PRN Reason: Maintain IV Site Stop: 09/30/24 07:30
--- NOTE | 2024-09-03 09:24 | CARE MANAGER ---
Laboratory Results - last 24 hr 09/02/24 05:13: Lipase 12 L 09/02/24 20:26: POC Glucose 288 H 09/03/24 06:31: POC Glucose 127 H
--- NOTE | 2024-09-03 09:25 | CARE MANAGER ---
Vital Signs Temperature 99.1 F 08/30/24 14:12 Pulse Rate 71 08/30/24 14:12 Respiratory Rate 21 08/30/24 14:12 Blood Pressure 156/61 H 08/30/24 14:12 02 Sat by Pulse Oximetry 95 08/30/24 14:12 Oxygen Delivery Method Nasal Cannula 08/30/24 14:12 Oxygen Flow Rate (LPM) 4 08/30/24 14:12 Temperature 98.0 F 09/03/24 08:00 Pulse Rate 77 09/03/24 08:00 Respiratory Rate 09/03/24 08:00 Blood Pressure 162/78 H 09/03/24 08:00 02 Sat by Pulse Oximetry 94 L 09/03/24 08:00 Oxygen Delivery Method Nasal Cannula 09/03/24 08:00 Oxygen Flow Rate (LPM) 2 09/03/24 08:00 Fraction of Inspired Oxygen 28 09/02/24 19:06
[2024-09-03 09:44] LABS: Alanine Aminotransferase 18 U/L (12-78); Albumin Level 3.1 g/dl (3.5-5.0); Albumin/Globulin Ratio 0.8 (1.1-1.8); Alkaline Phosphatase 163 U/L (38-126); Anion Gap 11.2 mEq/L (5-15); Aspartate Amino Transferase 26 U/L (14-36); Bilirubin,Total 0.6 mg/dl (0.2-1.3); Blood Urea Nitrogen 69 mg/dl (7-17); Calcium 8.9 mg/dl (8.4-10.2); Carbon Dioxide 25 mmol/L (22.0-30.0); Chloride 109 mmol/L (98-107); Creatinine Clearance Estimated 36 mL/min (50-200); Creatinine,Serum 2.20 mg/dl (0.52-1.04); Estimated Glomerular Filt Rate 23 ml/min (>60); GFR (African American) 27 ML/MIN (>60); Globulin 3.7 g/dL (1.3-3.2); Glucose 137 mg/dl (74-100); Magnesium 1.8 mg/dl (1.6-2.3); Potassium 4.2 mmoL/L (3.5-5.1); Sodium 141 mmol/L (136-145); Total Protein,Serum 6.8 g/dl (6.3-8.2); Vancomycin,Trough 19.7 ug/mL (5.0-10.0)
--- NOTE | 2024-09-03 09:44 | EXP.PULM.PN ---
Subjective *Date: 09/03/24 *Time: 12:30 Interval history: No acute respiratory events overnight. Patient denies any new complaints. Pulmonology Exam Inpatient Vital signs and Labs for Last 24 Hours: Temp Pulse Resp BP Pulse Ox O2 Del Method O2 Flow Rate 98.0 F 77 22 162/78 H 94 L Nasal Cannula 2 09/03/24 08:00 09/03/24 08:00 09/03/24 08:00 09/03/24 08:00 09/03/24 08:00 09/03/24 08:00 09/03/24 08:00 FiO2 28 09/02/24 19:06 Laboratory Results - last 24 hr 09/02/24 05:13: Lipase 12 L 09/02/24 20:26: POC Glucose 288 H 09/03/24 06:31: POC Glucose 127 H Temp Pulse Resp BP Pulse Ox O2 Del Method O2 Flow Rate 97.4 F L 69 24 124/58 L 96 Nasal Cannula 4 08/31/24 08:00 08/31/24 08:00 08/31/24 08:00 08/31/24 08:00 08/31/24 08:53 08/31/24 09:00 08/31/24 09:00 Laboratory Results - last 24 hr 08/30/24 13:57: WBC 22.4 H*, RBC 4.34, Hgb 11.0 L, Hct 36.6 L, MCV 84.3, MCH 25.3 L, MCHC 30.1 L, RDW 15.9, Plt Count 335, MPV 9.7, Neut % (Auto) 78.0, Lymph % (Auto) 12.4, [place] % (Auto) 8.4, Eos % (Auto) 0.2, Baso % (Auto) 0.4, Neut # (Auto) 17.4 H, Lymph # (Auto) 2.8, [place] # (Auto) 1.9 H, Eos # (Auto) 0.0, Baso # (Auto) 0.1, Total Counted 100, Neutrophils % (Manual) 79 H, Lymphocytes % (Manual) 11, Atypical Lymphs % 1.0, Monocytes % (Manual) 9, Platelet Estimate Normal, Microcytosis 1+, Sodium 140, Potassium 4.4, Chloride 103, Carbon Dioxide 31 H, Anion Gap 10.4, BUN 39 H, Creatinine 1.40 H, Estimated Creat Clear 50, Estimated GFR 38 L, Est GFR ( Amer) 46 L, Glucose 74, Calcium 9.4, Magnesium 1.5 L, Total Bilirubin 0.7, AST 30, ALT 18, Alkaline Phosphatase 203 H, Troponin I 0.02, C-Reactive Protein 51.8 H, NT-Pro-B Natriuret Pep 3560 H, Total Protein 8.1, Albumin 3.7, Globulin 4.4 H, Albumin/Globulin Ratio 0.8 L, Procalcitonin 0.183, Chlamy pneumoniae PCR Not detected, Adenovirus (PCR) Not detected, B. pertussis DNA (PCR) Not detected, Coronavirus OC43 (PCR) Not detected, Coronavirus HKU1 (PCR) Not detected, Coronavirus 229E (PCR) Not detected, SARS-CoV-2 (PCR) Not detected, Coronavirus NL63 (PCR) Not detected, Human Metapneumovir PCR Not detected, Influenza A (H1) PCR Not detected, Influ A (H1N1/09) PCR Not detected, Influenza A (H3) PCR Not detected, Influenza Type A (PCR) Not detected, Influenza Type B (PCR) Not detected, M. pneumoniae (PCR) Not detected, Parainfluenza 1 (PCR) Not detected, Parainfluenza 2 (PCR) Not detected, Parainfluenza 3 (PCR) Not detected, Parainfluenza 4 (PCR) Not detected, RSV (PCR) Not detected, Entero/Rhino (PCR) Not detected 08/30/24 14:17: VBG pH 7.36, VBG pCO2 50.2, VBG pO2 42.8 H, VBG HCO3 27.5, VBG Total CO2 29.1 H, VBG O2 Saturation 79.4 H, VBG Base Excess 2.0, VBG Lactic Acid 1.1 08/30/24 17:17: Troponin I 0.02 08/30/24 20:14: POC Glucose 113 H 08/30/24 20:52: Troponin I 0.02 08/31/24 02:43: Urine Color Yellow, Urine Appearance Slightly cloudy, Urine pH 6.0, Ur Specific [place] 1.025, Urine Protein 3+ A, Urine Glucose (UA) 1+, Urine Ketones Negative, Urine Blood 2+ A, Urine Nitrate Negative, Urine Bilirubin Negative, Urine Urobilinogen 0.2, Ur Leukocyte Esterase Negative, Urine RBC 5-10, Urine WBC 3-5, Ur Squamous Epith Cells 3-5, Amorphous Sediment 2+, Urine Bacteria 3+, Urine Mucus 1+, MRSA (PCR) Positive A 08/31/24 04:56: WBC 25.2 H*, RBC 3.55 L, Hgb 8.9 L D, Hct 30.0 L, MCV 84.5, MCH 25.1 L, MCHC 29.7 L, RDW 15.7, Plt Count 281, MPV 10.0, Neut % (Auto) 86.5 H, Lymph % (Auto) 5.4 L, [place] % (Auto) 6.6, Eos % (Auto) 0.0 L, Baso % (Auto) 0.2, Neut # (Auto) 21.7 H, Lymph # (Auto) 1.4, [place] # (Auto) 1.7 H, Eos # (Auto) 0.0, Baso # (Auto) 0.1, Total Counted 100, Neutrophils % (Manual) 88 H, Band Neutrophils % 4, Lymphocytes % (Manual) 5 L, Atypical Lymphs % Not Reportable, Monocytes % (Manual) 2, Platelet Estimate Not Reportable, RBC Morphology Not Reportable, ESR 111 H, Sodium 139, Potassium 4.2, Chloride 104, Carbon Dioxide 25, Anion Gap 14.2, BUN 41 H, Creatinine 1.80 H D, Estimated Creat Clear 39, Estimated GFR 28 L, Est GFR ( Amer) 34 L D, Glucose 274 H D, Hemoglobin A1c 8.7 H, Lactate 1.5, Calcium 8.7, Magnesium 2.0 D, Total Bilirubin 0.4, AST 23, ALT 15, Alkaline Phosphatase 135 H, Lactate Dehydrogenase 151 L, C-Reactive Protein 104.4 H, Total Protein 6.3, Albumin 2.9 L D, Globulin 3.4 H, Albumin/Globulin Ratio 0.9 L, Procalcitonin 1.14 08/31/24 06:21: POC Glucose 268 H I & O for Labs for Last 24 Hours: Intake & Output 08/31/24 09/01/24 09/02/24 09/03/24 23:59 23:59 23:59 23:59 Intake Total 1938 / 2398 1120 / 1700 1140 / 1240 100 / 100 Output Total 1330 / 1330 2855 / 3155 3000 / 3200 1700 / 1700 Balance 608 / 1068 -1735 / -1455 -1860 / -1960 -1600 / -1600 Weight 188 lb 203 lb 8 oz 200 lb 1.6 oz 191 lb 3.2 oz Intake & Output 08/28/24 08/29/24 08/30/24 08/31/24 23:59 23:59 23:59 23:59 Intake Total 854 / 854 Output Total 820 / 820 Balance 34 / 34 Weight 170 lb 188 lb Microbiology Reports for the Last 24 Hours: Microbiology 08/31/24 02:43 Urine,Clean Catch Urine Culture - Final NO GROWTH AFTER 48 HOURS Constitutional: Present severe distress Head: Present normocephalic and atraumatic ENT: Present normal exam, normal oropharynx and mucous membranes moist Neck: Present normal inspection and full ROM Respiratory: Present prolonged expiratory phase, respiratory distress, rhonchi, wheezes, crackles and able to speak in complete sentences Cardiac: Present S1/S2, Tachycardia and radial pulses present GI: Present soft and distention; Absent tenderness or guarding Rectal (female): Present deferred (female): Present deferred Skin: Present intact; Absent cyanosis or jaundice Neuro: Present alert, awake and oriented x 3 Extremities: Present normal inspection and edema; Absent clubbing or cyanosis Psychiatric: Present normal affect and cooperative Assessment and Plan *Assessment and plan (1) Multifocal pneumonia: Status: Acute Category: Medical Code(s): J18.8 - Other pneumonia, unspecified organism (2) Acute and chronic respiratory failure with hypoxia: Status: Acute Category: Medical Code(s): J96.21 - Acute and chronic respiratory failure with hypoxia Plan Ms. Bartlett is a 64-year-old female greater than [id number] smoking history severe COPD chronic hypoxic respiratory failure, pulmonary langerhan cell histiocytosis, heart failure preserved EF presented to ER with worsening respiratory distress pleuritic chest pain admitted to the hospital and pulmonary was called for further evaluation and management. Admit progressively worsening respiratory distress with cough and productive phlegm. Stopped smoking, has not smoked in the last 4 weeks. Status post completion of 5 days of levofloxacin from 08/03/2024 with worsening infiltrates. Afebrile. Hemodynamically stable. Neutrophilic predominant leukocytosis. Comprehensive respiratory viral PCR panel negative. Nasal MRSA PCR positive for CTA PE protocol upon admission no evidence of pulmonary embolism. Predominant right sided airspace disease, worsened from her most recent CT scan from July 2024 during which she completed 5-day course of levofloxacin.Continue to show previous noted fibrotic changes, also worsening. Currently receiving vancomycin and cefepime nebulization therapies and steroids CRP elevated on admission at 124.4 On initial examination examination moderate respiratory distress. Significant wheezing noted on auscultation. Admits improving symptoms. Interval update: No acute respiratory events overnight. Improving oxygen requirements and leukocytosis. Despite her clinically by her chest x-ray continue to get worse despite aggressive diuresis Chest x-ray from this morning no significant change from over the weekend. Worsening from admission with respiratory infiltrates and effusion. Echocardiogram normal systolic and diastolic function Plan: Schedule for bronchoscopy transbronchial biopsy Continue oxygen supplementation to maintain O2 saturation goal of 90% and above. Saturating 97% on 4 L, weaned to 2 L DuoNebs every 6 hours along with Pulmicort every 12 scheduled Continue vancomycin and cefepime pending sputum culture results # Thank you for involving pulmonary in this patient care. Will continue to follow
[2024-09-03 09:45] LABS: Red Blood Count 3.69 M/mm3 (4.20-5.40); White Blood Count 15.0 K/mm3 (4.8-10.8)
[2024-09-03 09:46] LABS: Hematocrit 30.5 % (37.0-47.0); Hemoglobin 9.0 g/dL (12.2-16.2); Immature Granulocytes % 1.8 %; Mean Corpuscular HGB Conc 29.5 g/dL (31.8-35.4); Mean Corpuscular Hemoglobin 24.4 pg (27.0-31.2); Mean Corpuscular Volume 82.7 fl (81-99); Nucleated Red Blood Cells % 0.3 %; Platelet Count 375 K/mm3 (142-424); Red Cell Distribution Width-SD 48.5 fL
--- NOTE | 2024-09-03 09:56 | EXP.PHA.CONS ---
Pharmacy Consult Date: 09/03/24 Time: 09:56 Referring provider: DR. SIDHU Reason for Consult:: VANCOMYCIN TROUGH AND DOSE CHANGE Allergies Allergy/AdvReac Type Severity Reaction Status Date / Time methocarbamol Allergy Severe Altered Verified 08/13/24 14:16 mental status terbutaline (TERBUTALINE) Allergy Severe SWELLS Verified 08/13/24 14:16 THROAT aspirin (ASPIRIN) Allergy Intermediate I-RASH Verified 08/13/24 14:16 codeine (CODEINE) Allergy Intermediate Swelling Verified 08/13/24 14:16 of the Eye diphenhydramine (From Allergy Intermediate Hives Verified 08/13/24 14:16 Benadryl) Sulfa (Sulfonamide Allergy Intermediate Hives Verified 08/13/24 14:16 Antibiotics) (SULFA (SULFONAMIDE ANTIBIOTICS)) sulfamethoxazole (From Allergy Intermediate Hives Verified 08/13/24 14:16 Bactrim) trimethoprim (From Bactrim) Allergy Intermediate Hives Verified 08/13/24 14:16 naproxen (NAPROXEN) Allergy Mild itching Verified 08/13/24 14:16 tramadol (TRAMADOL) Allergy Mild Vomiting Verified 08/13/24 14:16 citalopram (CITALOPRAM) Allergy Unknown SKIN PEEL Verified 08/13/24 14:16 erythromycin base Allergy Unknown I-RASH Verified 08/13/24 14:16 (ERYTHROMYCIN BASE) Penicillins (PENICILLINS) Allergy Unknown I-RASH Verified 08/13/24 14:16 fluticasone (From Advair Allergy Unknown Verified 08/13/24 14:16 Diskus) allergy reaction salmeterol (From Advair Allergy Unknown Verified 08/13/24 14:16 Diskus) allergy reaction bupropion (BUPROPION) AdvReac Severe Hallucinati Verified 08/13/24 14:16 ng duloxetine (DULOXETINE) AdvReac Severe Hallucinati Verified 08/13/24 14:16 ng pregabalin (PREGABALIN) AdvReac Severe Hallucinati Verified 08/13/24 14:16 ng celecoxib (From CELEBREX) AdvReac Mild Vomiting Verified 08/13/24 14:16 Home Medications ?Medication ?Instructions ?Recorded ?Confirmed ?Type apixaban 5 mg tablet (Eliquis) 5 mg PO BID 09/06/22 08/30/24 History insulin lispro 100 unit/mL 1 sliding scale dose SQ ACHS 08/23/23 08/31/24 History subcutaneous pen (Admelog SoloStar U-100 Insulin lispro) atorvastatin 10 mg tablet 10 mg PO HS 09/03/23 08/30/24 History isosorbide mononitrate 30 mg 30 mg PO DAILY 09/03/23 08/30/24 History tablet,extended release 24 hr ipratropium 0.5 mg-albuterol 3 mg 3 ml inhalation TID PRN Shortness 09/04/23 08/31/24 History (2.5 mg base)/3 mL nebulization Of Breath Or Wheezing soln lidocaine 5 % topical patch 1 patch topical DAILY 09/16/23 08/30/24 History (Lidoderm) guaifenesin 600 mg tablet, 600 mg PO BID 12/01/23 08/30/24 History extended release 12 hr (Mucus Relief ER) pen needle,diabetic dual safty 30 #100 ea 12/01/23 09/01/24 History gauge x 3/16 (BD AutoShield Duo Pen Needle) polyethylene glycol 3350 17 17 g PO DAILY 12/01/23 08/30/24 History gram/dose oral powder (ClearLax) acetaminophen 500 mg capsule 1,000 mg PO Q6HP PRN Mild Pain 03/05/24 08/31/24 History (Scale Score 1-4) famotidine 20 mg tablet 20 mg PO BID 03/05/24 08/31/24 History buspirone 10 mg tablet 10 mg PO BID 06/13/24 08/30/24 History oxycodone-acetaminophen 5 mg-325 1 tab PO QID 07/04/24 08/31/24 History mg tablet aripiprazole 10 mg tablet 10 mg PO DAILY 08/03/24 08/30/24 History fluticasone fur. 100 mcg-umeclid 1 inh inhalation DAILY 08/03/24 08/30/24 History 62.5 mcg-vilant 25 mcg inhalat.powder (Trelegy Ellipta) dapagliflozin propanediol 5 mg 5 mg PO DAILY 08/30/24 08/30/24 History tablet (Farxiga) metoprolol tartrate 25 mg tablet 25 mg PO BID 08/30/24 08/30/24 History bumetanide 2 mg tablet 2 mg PO DAILY 08/31/24 08/31/24 History docusate sodium 100 mg capsule 100 mg PO BID 08/31/24 08/31/24 History gabapentin 400 mg capsule 400 mg PO TID 08/31/24 08/31/24 History insulin glargine 100 unit/mL (3 44 unit SQ HS 08/31/24 08/31/24 History mL) subcutaneous pen (Lantus Solostar U-100 Insulin) insulin lispro 100 unit/mL 6 unit SQ AC 08/31/24 08/31/24 History subcutaneous pen sodium zirconium cyclosilicate 5 5 g PO BID 08/31/24 08/31/24 History gram oral powder packet (Lokelma) telmisartan 20 mg tablet 20 mg PO DAILY 08/31/24 08/31/24 History New Prescriptions to Start Prescriptions: Height: 1.65 m Weight: 86.727 kg Laboratory Results:: Laboratory Results - last 24 hr 09/02/24 05:13: Lipase 12 L 09/02/24 20:26: POC Glucose 288 H 09/03/24 06:31: POC Glucose 127 H 09/03/24 08:10: WBC 15.0 H, RBC 3.69 L, Hgb 9.0 L, Hct 30.5 L, MCV 82.7, MCH 24.4 L, MCHC 29.5 L, RDW 16.0, Plt Count 375 D, MPV 9.5, Neut % (Auto) 72.5, Lymph % (Auto) 16.8, [place] % (Auto) 7.9, Eos % (Auto) 0.7, Baso % (Auto) 0.3, Neut # (Auto) 10.9 H, Lymph # (Auto) 2.5, [place] # (Auto) 1.2 H, Eos # (Auto) 0.1, Baso # (Auto) 0.1, Sodium 141, Potassium 4.2, Chloride 109 H, Carbon Dioxide 25, Anion Gap 11.2, BUN 69 H, Creatinine 2.20 H, Estimated Creat Clear 36, Estimated GFR 23 L, Est GFR ( Amer) 27 L, Glucose 137 H, Calcium 8.9, Magnesium 1.8, Total Bilirubin 0.6, AST 26 D, ALT 18, Alkaline Phosphatase 163 H, Total Protein 6.8, Albumin 3.1 L, Globulin 3.7 H, Albumin/Globulin Ratio 0.8 L, Vancomycin Trough 19.7 H Medical History: Medical History (Updated 08/30/24 @ 14:43 by John Dan MD) Pneumonia Lung nodule Pulmonary Langerhans cell granulomatosis Encounter for screening for malignant neoplasm of lung History of smoking 30 or more pack years Vocal cord dysfunction Community acquired pneumonia Acute on chronic diastolic (congestive) heart failure Lumbar compression fracture RAGHAV (acute kidney injury) C. difficile colitis Cough Hyperkalemia Chronic respiratory failure with hypoxia COPD mixed type Elevated liver enzymes Paroxysmal atrial fibrillation Acute on chronic heart failure with preserved ejection fraction (HFpEF) Suicidal ideation Depression with suicidal ideation Abnormality of lung on CXR Acute and chronic respiratory failure with hypoxia Chest pain Abnormal ankle brachial index (DAVE) Pyelonephritis Restless leg syndrome Hepatitis B Depression Anxiety Chronic kidney disease Sleep apnea Migraine History of transient ischemic attack (TIA) History of hip fracture History of gastroesophageal reflux (GERD) Diabetes mellitus, type 2 Hyperlipidemia Congestive heart failure Nonspecific chest pain Hip fracture Failure to thrive Closed femur fracture Instability of left knee joint Left knee pain Vaginal pain Abnormal computed tomography angiography (CTA) of abdomen and pelvis Claudication Decreased pedal pulses Other specified symptoms and signs involving the circulatory and respiratory systems Acquired hammer toes of both feet Chronic deep vein thrombosis (DVT) of right lower extremity Primary osteoarthritis of both feet Overweight (BMI 25.0-29.9) Acute worsening of stage 3 chronic kidney disease Diabetes mellitus with neuropathy Left leg swelling Lymphedema Plantar fasciitis, left Foot pain, left Obesity (BMI 30.0-34.9) Sepsis Osteoarthritis of feet, bilateral Diabetic peripheral neuropathy associated with type 2 diabetes mellitus Onychoincurvatum Hepatitis C Chest pain Normal coronary arteries Foot pain, right COPD (chronic obstructive pulmonary disease) DVT (deep venous thrombosis) Cellulitis of right foot Hep B w/o coma Hep C w/o coma, chronic Endothelial dysfunction of coronary artery Elevated left ventricular end-diastolic pressure (LVEDP) Cauda equina syndrome ANNIE on CPAP Langerhan's cell histiocytosis SOB (shortness of breath) on exertion Atrial fibrillation HTN (hypertension) PAD (peripheral artery disease) Abdominal pain Diabetes mellitus Renal insufficiency Acute exacerbation of chronic obstructive airways disease Neck Pain Back pain Assessment and Plan Assessment and plan all Dx Assessment and Plan for all problems:: PATIENT'S VANCOMYCIN TROUGH LEVEL WAS 19.7 MCG/ML THIS AM PRIOR TO THIRD DOSE. PATIENT HAS BEEN RECEIVING VANCOMYCIN 1500 MG Q36H. RECOMMEND HOLDING DOSE UNTIL 1100 AND RESTARTING WITH VANCOMYCIN 1250 MG Q36H AT THIS TIME.
[2024-09-03] MEDS: DOCUSATE SODIUM 100 MG CAPSULE PO ×2 (10:11→20:36)
[2024-09-03] MEDS: GABAPENTIN 100MG CAPSULE 200 MG PO ×2 (10:11→20:36)
[2024-09-03] MEDS: BUMETANIDE 1MG/4ML VIAL 2 MG IV ×2 (10:11→16:42)
[2024-09-03 11:23] LABS: POC Glucose,Bedside 163 (70-110)
--- NOTE | 2024-09-03 11:31 | P.PNANES_ITS ---
[facility] Disclaimer: The information contained in this section may have been updated after the patient was seen, as this information can be updated by other users. Medical History Pneumonia Lung nodule Pulmonary Langerhans cell granulomatosis Encounter for screening for malignant neoplasm of lung History of smoking 30 or more pack years Vocal cord dysfunction Community acquired pneumonia Acute on chronic diastolic (congestive) heart failure Lumbar compression fracture RAGHAV (acute kidney injury) C. difficile colitis Cough Hyperkalemia Chronic respiratory failure with hypoxia COPD mixed type Elevated liver enzymes Paroxysmal atrial fibrillation Acute on chronic heart failure with preserved ejection fraction (HFpEF) Suicidal ideation Depression with suicidal ideation Abnormality of lung on CXR Acute and chronic respiratory failure with hypoxia Chest pain Abnormal ankle brachial index (DAVE) Pyelonephritis Restless leg syndrome Hepatitis B Depression Anxiety I think this patient's anxiety is partially related to cognitive deficits. She may well have beginning dementia. She has been cared for by her daughter. Will just follow this closely. Chronic kidney disease Sleep apnea Migraine History of transient ischemic attack (TIA) History of hip fracture History of gastroesophageal reflux (GERD) Diabetes mellitus, type 2 Hyperlipidemia Congestive heart failure Nonspecific chest pain Hip fracture Failure to thrive Closed femur fracture Instability of left knee joint Left knee pain Vaginal pain Abnormal computed tomography angiography (CTA) of abdomen and pelvis Claudication Decreased pedal pulses Other specified symptoms and signs involving the circulatory and respiratory systems Acquired hammer toes of both feet Chronic deep vein thrombosis (DVT) of right lower extremity Primary osteoarthritis of both feet Overweight (BMI 25.0-29.9) Acute worsening of stage 3 chronic kidney disease Diabetes mellitus with neuropathy Left leg swelling Lymphedema Plantar fasciitis, left Foot pain, left Very concerned about the possibility of fracture in this patient. Will send her for x-rays. Obesity (BMI 30.0-34.9) Sepsis Osteoarthritis of feet, bilateral Diabetic peripheral neuropathy associated with type 2 diabetes mellitus Onychoincurvatum Hepatitis C Chest pain Normal coronary arteries Foot pain, right COPD (chronic obstructive pulmonary disease) DVT (deep venous thrombosis) Cellulitis of right foot Hep B w/o coma Hep C w/o coma, chronic Endothelial dysfunction of coronary artery Elevated left ventricular end-diastolic pressure (LVEDP) Cauda equina syndrome ANNIE on CPAP Langerhan's cell histiocytosis SOB (shortness of breath) on exertion Atrial fibrillation HTN (hypertension) PAD (peripheral artery disease) Abdominal pain Diabetes mellitus Renal insufficiency Acute exacerbation of chronic obstructive airways disease Neck Pain Back pain Surgical History History of surgery on right wrist History of hip surgery Hx of tonsillectomy History of cholecystectomy History of appendectomy History of hysterectomy History of cardiac cath Family History Other Coronary artery disease Family history of diabetes mellitus type II Family history of hyperlipidemia Family history of hypertension Social History Smoking Status: Current every day smoker tobacco type: cigarettes packs per day: 2 second hand exposure: Yes alcohol intake: never counseling provided: none substance use type: denies use current occupational status: retired Travel in the last 8 weeks?: None household members: none housing: house lives independently: Yes marital status: education level: middle school current occupational exposures/hazards: No caffeine: Yes special pnig needs: No agree to transfusion: No do you feel safe at home: Yes victim of physical abuse: No victim of emotional abuse: No victim of sexual abuse: No would you like helpful sources: No Have you lived/traveled outside [place] in past 30 days?: No Contact w/someone who lives/traveled outside US past 30 days?: No Exposure to someone with infectious disease in past 14 days?: No Do you have a fever (greater than 100.4 F or 38 C)?: No Have you tested positive for COVID-19?: No Exposed to someone with COVID-19 in past 14 days?: No Do you have a sore throat?: No Do you have a cough?: No Do you have any weakness?: No Do you have any diarrhea?: No Are you experiencing any unusual bleeding?: No Do you have any muscle aches/pain?: No Do you have any abdominal pain?: No Are you experiencing loss of taste or smell?: No [facility] Anesthesia Checklist Patient Identification Patient Identification: Arm Band and Verbal (Name & ) Structural Data Admitted From: Inpatient Planned Operative Procedure/s: Bronchoscopy Consent for Planned Operative Procedure(s) Verified: Yes Verified Documents: Surgical Consent NPO Status Verified Time NPO: 00:00 Chart Verification Results Verified: CBC, BMP and ECG Additional verifications Anesthesia Reactions: No Hx Blood Transfusions: No Blood Transfusion Reaction: No Airway Assessment Mallampati Score:: Class II C-Spine Mobility Assessed: Yes TMJ Mobility Assessed: Yes Dentition: Poor Dentition (Few teeth on bottom) Neurological Assessment Level of Consciousness: Awake, Alert and Appropriate Hx Seizures: No Numbness or tingling in extremities: No Anesthesia Plan Anesthesia Risk discussed: Yes Anesthesia Plan: Verified ASA Class: IV Anesthesia Type: General
--- NOTE | 2024-09-03 13:17 | XR_ITS ---
FINAL REPORT TECHNIQUE: Single view chest CLINICAL HISTORY: bronch COMPARISON: X-ray from earlier today FINDINGS: A single view of the chest was obtained. The heart and mediastinum are within normal limits. There is improved opacity at the lateral right midlung. Coarse, diffuse interstitial changes are seen. There is a small right pleural effusion. There is no pneumothorax. IMPRESSION: Improved area of consolidation in the right lateral midlung. No pneumothorax. Reviewed, Interpreted and Dictated by Marcia Luque MD Transcribed by Milagros López Authenticated and [facility]
--- NOTE | 2024-09-03 13:17 | P.PNANES_ITS ---
[facility] Anesthesia Record Part I Anesthesia Record I Intake, IV Amount: 1,100 Hydration: Adequate Estimated blood loss (mL): 0 Urine output (mL): 0 Blood Products used (#): none Blood Pressure: 160/77 SaO2: 92 Pulse Rate: 100 Airway Patency: Patent Respiratory Rate: 20 Temperature: 97.0 F Patient is:: Drowsy, Mask O2 and Stable Stable to PACU at:: 13:10
--- NOTE | 2024-09-03 13:50 | PC.NURSE ---
PACU notified me in report they emptied 1100 mls from fong
[2024-09-03] MEDS: VANCOMYCIN/WATER FOR INJ (PEG) 1.25 GM/250 ML PIGGYBACK IV (13:55)
--- NOTE | 2024-09-03 13:56 | EXP.BRONCH.N ---
Procedure: Date: 09/03/24 Patient Date of :: 1960 Procedure Performed:: Bronchoscopy airway examination bronchoalveolar lavage Indications:: Nonresolving pneumonia Performing Provider:: Raghavendra Granda MD Referring Provider:: Sedation:: General anesthesia Procedure:: Bronchoscopy airway examination and bronchoalveolar lavage: A clean THEREPEAUTIC bronchoscopy was advanced through the ET tube and airways were examined up to subsegmental bronchi. Copious amount of thick tenacious mucoid secretions were found in bilateral airways with lower lobe bronchial occlusion. Difficult to suction even with therapeutic bronchoscopy. All the secretions were successfully cleared from the airways by the end of the procedure. Bronchoalveolar lavage was performed in the RIGHT LOWER LOBE with instillation of 60 cc normal saline with return of 25 cc back. BAL fluid was sent for cell count and differential along with bacterial fungal and AFB stain and cultures. Transbronchial biopsy was not performed as patient currently on anticoagulation, Eliquis Patient tolerated the procedure with no immediate acute complications. We will follow the patient in pulmonary clinic in 7 to 10 days. Findings:: Please see the procedure note Recommendations:: Incentive spirometry and flutter valve along with chest percussion therapy twice daily Follow-up with further recommendations as mentioned in today's progress note Complications:: No acute immediate complications Estimated blood obtained (mL): 2
--- NOTE | 2024-09-03 14:36 | EXP.PN ---
Subjective *Date: 09/03/24 *Time: 14:36 Interval history: Patient feels slightly better today, moving air better. Also leg edema significantly improving. Bronchoscopy performed today to obtain BAL cultures as patient is not producing sputum and significant opacities on CXR. Continue antibiotics, diuresis, follow-up on cultures. Exam Data for Last 24 hours Vital signs and Labs for Last 24 Hours: Temp Pulse Resp BP Pulse Ox O2 Del Method O2 Flow Rate 97.9 F 73 16 158/80 H 92 L Nasal Cannula 4 09/03/24 13:55 09/03/24 13:55 09/03/24 13:55 09/03/24 13:55 09/03/24 13:55 09/03/24 13:55 09/03/24 13:55 FiO2 28 09/02/24 19:06 Laboratory Results - last 24 hr 09/02/24 20:26: POC Glucose 288 H 09/03/24 06:31: POC Glucose 127 H 09/03/24 08:10: WBC 15.0 H, RBC 3.69 L, Hgb 9.0 L, Hct 30.5 L, MCV 82.7, MCH 24.4 L, MCHC 29.5 L, RDW 16.0, Plt Count 375 D, MPV 9.5, Neut % (Auto) 72.5, Lymph % (Auto) 16.8, [place] % (Auto) 7.9, Eos % (Auto) 0.7, Baso % (Auto) 0.3, Neut # (Auto) 10.9 H, Lymph # (Auto) 2.5, [place] # (Auto) 1.2 H, Eos # (Auto) 0.1, Baso # (Auto) 0.1, Sodium 141, Potassium 4.2, Chloride 109 H, Carbon Dioxide 25, Anion Gap 11.2, BUN 69 H, Creatinine 2.20 H, Estimated Creat Clear 36, Estimated GFR 23 L, Est GFR ( Amer) 27 L, Glucose 137 H, Calcium 8.9, Magnesium 1.8, Total Bilirubin 0.6, AST 26 D, ALT 18, Alkaline Phosphatase 163 H, Total Protein 6.8, Albumin 3.1 L, Globulin 3.7 H, Albumin/Globulin Ratio 0.8 L, Vancomycin Trough 19.7 H 09/03/24 11:08: POC Glucose 163 H I & O for Last 24 hours: Intake & Output 08/31/24 09/01/24 09/02/24 09/03/24 23:59 23:59 23:59 23:59 Intake Total 1938 / 2398 1120 / 1700 1140 / 1240 1200 / 1200 Output Total 1330 / 1330 2855 / 3155 3000 / 3200 1700 / 1700 Balance 608 / 1068 -1735 / -1455 -1860 / -1960 -500 / -500 Weight 85.275 kg 92.306 kg 90.764 kg 86.727 kg Constitutional Constitutional: no acute distress *Routine HEENT Exam Head: Present normocephalic Eye: Present EOMI and PERRL ENT: Present mucous membranes moist *Routine Neck Exam Neck: Present supple; Absent lymphadenopathy *Routine Respiratory Exam Respiratory: Present rhonchi, wheezes and diminished air movement; Absent CTA bilaterally *Routine Cardiovascular Exam Cardiovascular: Present RRR *Routine Abdominal Exam Abdominal: Present soft and normoactive bowel sounds; Absent tenderness *Routine Extremities Exam Extremities: Present edema; Absent cyanosis or clubbing *Routine Skin Exam Skin: Present warm; Absent rash *Routine Neurological Exam Neurological: Present alert and oriented X3 Assessment and Plan *Assessment and plan (1) Pneumonia: Status: Acute Category: Medical Code(s): J18.9 - Pneumonia, unspecified organism Plan Jania Bartlett is a 64-year-old female with a medical history of COPD on 2 L baseline, greater than 30 pack smoking history, HFpEF, insulin-dependent diabetes, hypertension, anxiety/depression, who presents with 2-week onset of progressive shortness of breath and cough. Patient states that she is not able to cough up anything, but does endorse right-sided pleuritic chest pain and now generalized chest pain from coughing. Also endorses nonspecific generalized abdominal pains, denies fever/chills. States her lower extremity edema is at baseline. Workup in the ED significant for WBC 22.4, CRP 51.8, procalcitonin normal, CTA chest revealing right lower lobe pneumonia. Patient is also tachycardic, tachypneic and now requiring 4 L nasal cannula. Patient was given ceftriaxone, azithromycin. Fluids were held due to suspicion of fluid overload. Case discussed by ED provider initially was made to admit patient for sepsis secondary to community-acquired pneumonia. #Acute on chronic hypoxic respiratory failure #Community-acquired pneumonia #Sepsis ? Presented with 2-weeks of progressive shortness of breath, nonproductive cough. Initial WBC 22.4, with tachypnea. ? CTA chest revealed right lower lobe pneumonia, CXR shows chronic interstitial changes. Procalcitonin normal. ? WBC bumped from 14.2 to 15 today though likely from steroids, no longer septic. Procalcitonin still normal at 1.28. ? Blood cultures NGTD. MRSA PCR positive. Patient unable to cough sputum, thus bronchoscopy was performed with BAL cultures. ? However, patient states she continues to have shortness of breath (but improving) which more likely represents volume overload/pulmonary edema and COPD exacerbation. ? Continue vancomycin, cefepime, azithromycin day 5. ? CXR today shows slightly improving multifocal opacities. Though in the setting of volume overload, diuresing well. ? Pulmonology consulted, s/p bronchoscopy with BAL cultures today. Will follow-up on cultures. Also recommended IV antibiotics on discharge as patient recently failed outpatient levofloxacin. ? Follow-up morning CBC, CMP. ? Speech therapy consulted, pending recommendations. Recommended barium swallow study today, but patient had bronchoscopy instead. ? Weaned to baseline 2 L nasal cannula. #HFpEF exacerbation #RAGHAV on CKD ? Presented with 3+ lower extremity pitting edema, with significant improvement diuresis. Pulmonary edema also improving. ? Continue IV Bumex 2 mg twice daily, diuresing well. Holding off on spironolactone due to hyperkalemia. -3.4L mL so far. ? Creatinine improving from 2.5-2.2 with diuresis, baseline around 1.5. ? ECHO 08/31/2024 shows a normal biventricular systolic function, increased LV wall thickness but normal diastolic function. #COPD exacerbation ? Patient continues to have airway restriction with diffuse rhonchi today. VBG yesterday showed acute hypercapnia. ? Continue ipratropium/levalbuterol every 6 hours, Pulmicort twice daily, IV Solu-Medrol 40 mg daily. #Physical deconditioning ? PT/OT consulted, recommended SNF. Will discharge back to [facility] when medically stable. #Insulin-dependent diabetes ? Hemoglobin A1c 8.7%. ? Bl glucose 163 this morning, increasing Lantus Lantus to 30 units nightly working. ? LDSSI, ACHS glucose checks. #Paroxysmal A-fib ? Continue home metoprolol 25 mg twice daily, Eliquis 5 mg twice daily. Currently rate controlled. ? Has had episodes of A-fib RVR with breathing treatments, switch to levalbuterol. ? IV Lopressor 5 mg as needed. #Hypertension ? Continue home Imdur 30 mg daily, hold home ARB due to RAGHAV. #Anxiety/depression ? Continue home BuSpar. DNR/DNI DVT prophylaxis: Home Eliquis
[2024-09-03 16:49] LABS: POC Glucose,Bedside 280 (70-110)
[2024-09-03] MEDS: humaLOG 100 UNITS/ML 10ML VIAL (SSI) SUBCUT ×2 (16:57→20:37)
--- NOTE | 2024-09-03 16:59 | PC.NURSE ---
fong d/c and PW in place.
--- NOTE | 2024-09-03 18:12 | PC.NURSE ---
patient had acute confusion post op a/ox1. bed alarm in place. placed 4LNC on patient due to sats <90%. O2 with 4LNC increased to 93%-95%. patient is now a/ox4 and tolerating diet well. patient has voided via PW since fong d/c. patient has no complaints at this time.
[2024-09-03] MEDS: INSULIN GLARGINE 100 UNITS/ML 3ML FLEXPEN 30 UNIT SUBCUT (20:36)
[2024-09-03] MEDS: FAMOTIDINE 20MG TABLET 20 MG PO (20:36)
[2024-09-03 20:52] LABS: POC Glucose,Bedside 264 (70-110)
--- NOTE | 2024-09-03 21:20 | PC.NURSE ---
patient recieved a bath and linen change by both techs this shift.
--- NOTE | 2024-09-03 22:45 | PC.NURSE ---
patient c/o soreness in chest/belly when coughing - gave patient an IS and educated on how to use, encouraged to use q2h 10x if possible while awake - patient demonstrated use and verbalized understanding.
[2024-09-04] VITALS (12 sets, daily range): BP systolic 111–157; BP diastolic 63–98; PULSE 65–82; RESP 16–20; TEMP 36.1–36.8; O2SAT 91–97; BMI 32.0
[2024-09-04] MEDS: IPRATROPIUM BROMIDE 0.5 MG/2.5ML SOLUTION IH ×4 (00:05→18:24)
[2024-09-04] MEDS: LEVALBUTEROL 1.25MG/3ML NEB 1.25 MG IH ×4 (00:05→18:24)
[2024-09-04] MEDS: OXYCODONE 5MG IMMEDIATE RELEASE TABLET 10 MG PO (01:21)
--- NOTE | 2024-09-04 05:05 | PC.NURSE ---
Addendum entered by Jacky Slaughter RN 09/04/24 06:45: bed alarm placed back on patient r/t transferring without supervision to the toilet and being stuck without her call lira in reach, post self transfer. patient agreeable to wearing the bed alarm now Original Note: patient has decided to refuse her bed alarm - stated it has bothered her all night and she hasn't been able to sleep. bed alarm is now off and patient was educated to press red button electronic system engineer lira for help. [place] NOGUERA was present as a witness.
--- NOTE | 2024-09-04 05:24 | PC.NURSE ---
medication verified by pharmacy bottle and patient's and daughter at bedside
[2024-09-04] MEDS: BUDESONIDE 0.5MG/2ML NEB 0.5 MG IH ×2 (05:44→18:24)
[2024-09-04 06:46] LABS: POC Glucose,Bedside 131 (70-110)
[2024-09-04 07:07] LABS: CEA 10.3 ng/mL (0.0-4.7)
[2024-09-04 07:11] LABS: Hematocrit 36.3 % (37.0-47.0); Immature Granulocytes % 2.7 %; Mean Corpuscular HGB Conc 31.1 g/dL (31.8-35.4); Mean Corpuscular Hemoglobin 25.5 pg (27.0-31.2); Mean Corpuscular Volume 81.9 fl (81-99); Nucleated Red Blood Cells % 0.4 %; Platelet Count 416 K/mm3 (142-424); Red Blood Count 4.43 M/mm3 (4.20-5.40); Red Cell Distribution Width-SD 47.9 fL; White Blood Count 16.1 K/mm3 (4.8-10.8)
[2024-09-04 07:18] LABS: Alanine Aminotransferase 32 U/L (12-78); Albumin Level 4.1 g/dl (3.5-5.0); Albumin/Globulin Ratio 0.8 (1.1-1.8); Alkaline Phosphatase 196 U/L (38-126); Anion Gap 17.1 mEq/L (5-15); Aspartate Amino Transferase 59 U/L (14-36); Bilirubin,Total 1.1 mg/dl (0.2-1.3); Blood Urea Nitrogen 70 mg/dl (7-17); Calcium 9.6 mg/dl (8.4-10.2); Carbon Dioxide 25 mmol/L (22.0-30.0); Chloride 106 mmol/L (98-107); Creatinine Clearance Estimated 42 mL/min (50-200); Creatinine,Serum 1.90 mg/dl (0.52-1.04); Estimated Glomerular Filt Rate 27 ml/min (>60); GFR (African American) 32 ML/MIN (>60); Globulin 5.0 g/dL (1.3-3.2); Glucose 130 mg/dl (74-100); Magnesium 1.7 mg/dl (1.6-2.3); Potassium 5.1 mmoL/L (3.5-5.1); Sodium 143 mmol/L (136-145); Total Protein,Serum 9.1 g/dl (6.3-8.2)
[2024-09-04 07:23] LABS: C-Reactive Protein 33.1 mg/L (0-4)
[2024-09-04 08:13] LABS: CA 19-9 31 U/mL (0-35)
[2024-09-04 08:27] LABS: Hemoglobin 11.3 g/dL (12.2-16.2)
[2024-09-04 08:28] LABS: Vitamin B12 851 pg/mL (239-931)
[2024-09-04] MEDS: GABAPENTIN 100MG CAPSULE 200 MG PO ×3 (08:35→21:15)
[2024-09-04] MEDS: METOPROLOL TARTRATE 25MG TABLET 25 MG PO ×2 (08:35→21:04)
[2024-09-04] MEDS: BENZONATATE 100MG CAPSULE 200 MG PO ×2 (08:36→21:04)
[2024-09-04] MEDS: APIXABAN 5MG TABLET 5 MG PO ×2 (08:36→21:04)
[2024-09-04] MEDS: DOCUSATE SODIUM 100 MG CAPSULE PO ×2 (08:36→21:04)
[2024-09-04] MEDS: AZITHROMYCIN 250MG TABLET 500 MG PO (08:36)
[2024-09-04] MEDS: ISOSORBIDE MONO 30MG TAB.ER.24H 30 MG PO (08:36)
[2024-09-04] MEDS: BUSPIRONE HCL 10 MG TABLET PO ×2 (08:36→21:12)
[2024-09-04] MEDS: BUMETANIDE 1MG/4ML VIAL 2 MG IV ×2 (08:37→16:20)
[2024-09-04] MEDS: CEFEPIME HCL 2 GM in 0.9 % SODIUM CHLORIDE 100 ML IV ×2 (08:37→21:12)
[2024-09-04] MEDS: METHYLPREDNISOLONE SOD SUCC 40MG VIAL 40 MG IV (08:37)
[2024-09-04] MEDS: POLYETHYLENE GLYCOL 3350 17 GM PACKET PO (08:37)
--- NOTE | 2024-09-04 08:55 | FL_ITS ---
FINAL REPORT CLINICAL HISTORY: DYSPHAGIA FT: 4:25 DAP: 490.20 FINDINGS: FLUOROSCOPY LESS THAN 1 HOUR HISTORY: Fluoroscopy guidance. FINDINGS: Fluoroscopic guidance was provided for barium swallow. A total of 4:25 minutes of fluoroscopy time were used. DAP: 490.20 mGy IMPRESSION: As above. Reviewed, Interpreted and Dictated by Laura Mike MD Transcribed by Diana Casey Authenticated and [facility]
[2024-09-04 08:56] LABS: Folate 5.46 ng/mL
[2024-09-04 09:06] LABS: Iron 57 ug/dL (37-170)
[2024-09-04 09:15] LABS: Total Iron Binding Capacity 304 ug/dL (265-497)
--- NOTE | 2024-09-04 09:15 | P.PN_ITS ---
Subjective *Date: 09/04/24 *Time: 09:15 Medical Exam Vital signs and Labs for Last 24 Hours: Vital Signs Temp Pulse Pulse Resp BP BP Pulse Ox 09/04/24 06:44 09/04/24 05:48 75 09/04/24 05:48 78 09/04/24 05:48 94 L 09/04/24 05:00 09/04/24 04:00 65 09/04/24 04:00 98.3 F 67 18 153/75 H 97 09/04/24 03:00 09/04/24 01:00 09/04/24 00:05 70 09/04/24 00:05 72 09/04/24 00:00 65 09/04/24 00:00 98.3 F 73 16 111/98 H 91 L 09/03/24 22:43 09/03/24 21:00 09/03/24 20:00 75 09/03/24 20:00 09/03/24 20:00 98.2 F 75 16 132/69 93 L 09/03/24 18:44 09/03/24 18:26 71 09/03/24 18:26 74 09/03/24 18:26 92 L 09/03/24 17:00 09/03/24 16:10 68 18 156/88 H 94 L 09/03/24 16:00 98.3 F 70 22 138/76 94 L 09/03/24 16:00 71 09/03/24 15:40 69 20 155/76 H 93 L 09/03/24 15:10 98.0 F 69 20 150/64 H 92 L 09/03/24 15:00 09/03/24 14:43 100 H 20 160/77 H 92 L 09/03/24 14:40 75 18 138/76 95 09/03/24 14:25 79 18 114/76 95 09/03/24 14:10 72 16 164/83 H 94 L 09/03/24 13:55 97.9 F 73 16 158/80 H 92 L 09/03/24 13:40 97.0 F L 73 18 144/80 H 94 L 09/03/24 13:30 97.0 F L 72 18 143/72 H 94 L 09/03/24 13:20 97.0 F L 75 20 159/77 H 94 L 09/03/24 13:18 97.0 F L 100 H 20 160/77 H 09/03/24 13:10 97.0 F L 100 H 20 160/77 H 92 L 09/03/24 11:14 98.2 F 75 22 162/75 H 95 09/03/24 11:00 O2 Del Method O2 Flow Rate 09/04/24 06:44 Room Air 09/04/24 05:48 09/04/24 05:48 09/04/24 05:48 Nasal Cannula 4 09/04/24 05:00 Nasal Cannula 3 09/04/24 04:00 09/04/24 04:00 Nasal Cannula 3 09/04/24 03:00 Nasal Cannula 3 09/04/24 01:00 Nasal Cannula 3 09/04/24 00:05 09/04/24 00:05 09/04/24 00:00 09/04/24 00:00 3 09/03/24 22:43 Nasal Cannula 3 09/03/24 21:00 Nasal Cannula 3 09/03/24 20:00 09/03/24 20:00 Nasal Cannula 3 09/03/24 20:00 Nasal Cannula 4 09/03/24 18:44 Nasal Cannula 3 09/03/24 18:26 09/03/24 18:26 09/03/24 18:26 Nasal Cannula 3 09/03/24 17:00 Nasal Cannula 09/03/24 16:10 Nasal Cannula 09/03/24 16:00 Nasal Cannula 4 09/03/24 16:00 09/03/24 15:40 Nasal Cannula 09/03/24 15:10 Nasal Cannula 09/03/24 15:00 Nasal Cannula 09/03/24 14:43 Room Air 09/03/24 14:40 Nasal Cannula 09/03/24 14:25 Nasal Cannula 4 09/03/24 14:10 Nasal Cannula 4 09/03/24 13:55 Nasal Cannula 4 09/03/24 13:40 Nasal Cannula 3 09/03/24 13:30 Nasal Cannula 4 09/03/24 13:20 Nasal Cannula 6 09/03/24 13:18 09/03/24 13:10 Non-Rebreather 10 09/03/24 11:14 Nasal Cannula 2 09/03/24 11:00 Nasal Cannula Intake and Output 09/03/24 09/04/24 09/04/24 23:59 07:59 15:59 Intake Total 740 / 1940 480 / 480 Output Total 2050 / 3750 1100 / 1100 Balance -1310 / -1810 -620 / -620 Intake: Intake, Oral Amount 640 / 640 480 / 480 Intake, Total IV Amount 100 / 200 Cefepime HCl 2 gm In 0.9 % 100 / 200 Sodium Chloride 100 ml @ 200 mls/hr IV Q12H [facility] Rx#:[id number] Output: Output, Urine Amount 1650 / 3350 1100 / 1100 Output, Urine Amount (Catheter) 400 / 400 Urethral 400 / 400 Other: Number of Unmeasured Voids 0 1 Number of Bowel Movements 1 1 Weight 87.18 kg Patient Weight 09/04/24 23:59 Weight 87.18 kg Laboratory Results - last 24 hr 09/02/24 15:55: Tumor Marker AFP 2.1, Carcinoembryonic Ag 10.3 H, CA 19-9 Antigen 31 09/03/24 08:10: WBC 15.0 H, RBC 3.69 L, Hgb 9.0 L, Hct 30.5 L, MCV 82.7, MCH 24.4 L, MCHC 29.5 L, RDW 16.0, Plt Count 375 D, MPV 9.5, Neut % (Auto) 72.5, Lymph % (Auto) 16.8, [place] % (Auto) 7.9, Eos % (Auto) 0.7, Baso % (Auto) 0.3, Neut # (Auto) 10.9 H, Lymph # (Auto) 2.5, [place] # (Auto) 1.2 H, Eos # (Auto) 0.1, Baso # (Auto) 0.1, Sodium 141, Potassium 4.2, Chloride 109 H, Carbon Dioxide 25, Anion Gap 11.2, BUN 69 H, Creatinine 2.20 H, Estimated Creat Clear 36, Estimated GFR 23 L, Est GFR ( Amer) 27 L, Glucose 137 H, Calcium 8.9, Magnesium 1.8, Total Bilirubin 0.6, AST 26 D, ALT 18, Alkaline Phosphatase 163 H, Total Protein 6.8, Albumin 3.1 L, Globulin 3.7 H, Albumin/Globulin Ratio 0.8 L, Vancomycin Trough 19.7 H 09/03/24 11:08: POC Glucose 163 H 09/03/24 16:42: POC Glucose 280 H 09/03/24 20:35: POC Glucose 264 H 09/04/24 06:39: POC Glucose 131 H 09/04/24 06:49: WBC 16.1 H, RBC 4.43, Hgb 11.3 L D, Hct 36.3 L, MCV 81.9, MCH 25.5 L, MCHC 31.1 L, RDW 15.9, Plt Count 416, MPV 10.3, Neut % (Auto) 74.1, Lymph % (Auto) 14.5, [place] % (Auto) 8.0, Eos % (Auto) 0.1, Baso % (Auto) 0.6, Neut # (Auto) 12.0 H, Lymph # (Auto) 2.3, [place] # (Auto) 1.3 H, Eos # (Auto) 0.0, Baso # (Auto) 0.1, ESR 52 H, Sodium 143, Potassium 5.1 D, Chloride 106, Carbon Dioxide 25, Anion Gap 17.1 H, BUN 70 H, Creatinine 1.90 H, Estimated Creat Clear 42, Estimated GFR 27 L, Est GFR ( Amer) 32 L, Glucose 130 H, Calcium 9.6, Magnesium 1.7, Iron 57, Total Bilirubin 1.1, AST 59 H D, ALT 32 D, Alkaline Phosphatase 196 H, C-Reactive Protein 33.1 H, Total Protein 9.1 H D, Albumin 4.1 D, Globulin 5.0 H, Albumin/Globulin Ratio 0.8 L, Vitamin B12 851, Folate 5.46 I & O for Labs for Last 24 Hours: Intake & Output 09/01/24 09/02/24 09/03/24 09/04/24 23:59 23:59 23:59 23:59 Intake Total 1120 / 1700 1140 / 1240 1940 / 1940 480 / 480 Output Total 2855 / 3155 3000 / 3200 3750 / 3750 1100 / 1100 Balance -1735 / -1455 -1860 / -1960 -1810 / -1810 -620 / -620 Weight 92.306 kg 90.764 kg 86.727 kg 87.18 kg Microbiology Reports for the Last 24 Hours: Microbiology 09/03/24 13:00 Bronchial Washings - Right Lower Lobe Gram Stain - Final 08/30/24 14:44 Blood Blood Culture - Preliminary NO GROWTH AFTER 4 DAYS 08/30/24 14:39 Blood Blood Culture - Preliminary NO GROWTH AFTER 4 DAYS The patient's infection will respond to the chosen ABx?: Yes (BRONCH WASHINGS CX PENDING, AFEBRILE OVER 24 HR.) Is the patient receiving the right drug, dose, and route?: Yes Could a more targeted ABx be ordered?: No How long ABx needed (days)?: 5 (AZITHROMYCIN (SEPSIS, COMMUNITY ACQUIRED PNEUMONIA))
--- NOTE | 2024-09-04 09:25 | P.PN_ITS ---
Subjective *Date: 09/04/24 *Time: 12:37 Interval history: No acute respiratory events overnight. Patient admits worsening respiratory symptoms. Pulmonology Exam Inpatient Vital signs and Labs for Last 24 Hours: Temp Pulse Resp BP Pulse Ox O2 Del Method O2 Flow Rate 98.3 F 75 18 153/75 H 94 L Room Air 4 09/04/24 04:00 09/04/24 05:48 09/04/24 04:00 09/04/24 04:00 09/04/24 05:48 09/04/24 06:44 09/04/24 05:48 FiO2 28 09/02/24 19:06 Laboratory Results - last 24 hr 09/02/24 15:55: Tumor Marker AFP 2.1, Carcinoembryonic Ag 10.3 H, CA 19-9 Antigen 31 09/03/24 08:10: WBC 15.0 H, RBC 3.69 L, Hgb 9.0 L, Hct 30.5 L, MCV 82.7, MCH 24.4 L, MCHC 29.5 L, RDW 16.0, Plt Count 375 D, MPV 9.5, Neut % (Auto) 72.5, L ymph % (Auto) 16.8, Haralson % (Auto) 7.9, Eos % (Auto) 0.7, Baso % (Auto) 0.3, Neut # (Auto) 10.9 H, Lymph # (Auto) 2.5, Haralson # (Auto) 1.2 H, Eos # (Auto) 0.1, Baso # (Auto) 0.1, Sodium 141, Potassium 4.2, Chloride 109 H, Carbon Dioxide 25, Anion Gap 11.2, BUN 69 H, Creatinine 2.20 H, Estimated Creat Clear 36, Estimated GFR 23 L, Est GFR ( Amer) 27 L, Glucose 137 H, Calcium 8.9, Magnesium 1.8, Total Bilirubin 0.6, AST 26 D, ALT 18, Alkaline Phosphatase 163 H, Total Protein 6.8, Albumin 3.1 L, Globulin 3.7 H, Albumin/Globulin Ratio 0.8 L, Vancomycin Trough 19.7 H 09/03/24 11:08: POC Glucose 163 H 09/03/24 16:42: POC Glucose 280 H 09/03/24 20:35: POC Glucose 264 H 09/04/24 06:39: POC Glucose 131 H 09/04/24 06:49: WBC 16.1 H, RBC 4.43, Hgb 11.3 L D, Hct 36.3 L, MCV 81.9, MCH 25 .5 L, MCHC 31.1 L, RDW 15.9, Plt Count 416, MPV 10.3, Neut % (Auto) 74.1, Lymph % (Auto) 14.5, Haralson % (Auto) 8.0, Eos % (Auto) 0.1, Baso % (Auto) 0.6, Neut # (Auto) 12.0 H, Lymph # (Auto) 2.3, Haralson # (Auto) 1.3 H, Eos # (Auto) 0.0, Baso # (Auto) 0.1, ESR 52 H, Sodium 143, Potassium 5.1 D, Chloride 106, Carbon Dioxide 25, Anion Gap 17.1 H, BUN 70 H, Creatinine 1.90 H, Estimated Creat Clear 42, Estimated GFR 27 L, Est GFR ( Amer) 32 L, Glucose 130 H, Calcium 9.6, Magnesium 1.7, Iron 57, TIBC 304, Iron Saturation [id number], Total Bilirubin 1.1, AST 59 H D, ALT 32 D, Alkaline Phosphatase 196 H, C-Reactive Protein 33.1 H, Total Protein 9.1 H D, Albumin 4.1 D, Globulin 5.0 H, Albumin/Globulin Ratio 0.8 L, Vitamin B12 851, Folate 5.46 Temp Pulse Resp BP Pulse Ox O2 Del Method O2 Flow Rate 97.4 F L 69 24 124/58 L 96 Nasal Cannula 4 08/31/24 08:00 08/31/24 08:00 08/31/24 08:00 08/31/24 08:00 08/31/24 08:53 08/31/24 09:00 08/31/24 09:00 Laboratory Results - last 24 hr 08/30/24 13:57: WBC 22.4 H*, RBC 4.34, Hgb 11.0 L, Hct 36.6 L, MCV 84.3, MCH 25.3 L, MCHC 30.1 L, RDW 15.9, Plt Count 335, MPV 9.7, Neut % (Auto) 78.0, Lymph % (Auto) 12.4, Haralson % (Auto) 8.4, Eos % (Auto) 0.2, Baso % (Auto) 0.4, Neut # (Auto) 17.4 H, Lymph # (Auto) 2.8, Haralson # (Auto) 1.9 H, Eos # (Auto) 0.0, Baso # (Auto) 0.1, Total Counted 100, Neutrophils % (Manual) 79 H, Lymphocytes % (Manual) 11, Atypical Lymphs % 1.0, Monocytes % (Manual) 9, Platelet Estimate Normal, Microcytosis 1+, Sodium 140, Potassium 4.4, Chloride 103, Carbon Dioxide 31 H, Anion Gap 10.4, BUN 39 H, Creatinine 1.40 H, Estimated Creat Clear 50, Estimated GFR 38 L, Est GFR ( Amer) 46 L, Glucose 74, Calcium 9.4, Magnesium 1.5 L, Total Bilirubin 0.7, AST 30, ALT 18, Alkaline Phosphatase 203 H , Troponin I 0.02, C-Reactive Protein 51.8 H, NT-Pro-B Natriuret Pep 3560 H, Total Protein 8.1, Albumin 3.7, Globulin 4.4 H, Albumin/Globulin Ratio 0.8 L, Procalcitonin 0.183, Chlamy pneumoniae PCR Not detected, Adenovirus (PCR) Not detected, B. pertussis DNA (PCR) Not detected, Coronavirus OC43 (PCR) Not detected, Coronavirus HKU1 (PCR) Not detected, Coronavirus 229E (PCR) Not detected, SARS-CoV-2 (PCR) Not detected, Coronavirus NL63 (PCR) Not detected, Human Metapneumovir PCR Not detected, Influenza A (H1) PCR Not detected, Influ A (H1N1/09) PCR Not detected, Influenza A (H3) PCR Not detected, Influenza Type A (PCR) Not detected, Influenza Type B (PCR) Not detected, M. pneumoniae (PCR) Not detected, Parainfluenza 1 (PCR) Not detected, Parainfluenza 2 (PCR) Not detected, Parainfluenza 3 (PCR) Not detected, Parainfluenza 4 (PCR) Not detected, RSV (PCR) Not detected, Entero/Rhino (PCR) Not detected 08/30/24 14:17: VBG pH 7.36, VBG pCO2 50.2, VBG pO2 42.8 H, VBG HCO3 27.5, VBG Total CO2 29.1 H, VBG O2 Saturation 79.4 H, VBG Base Excess 2.0, VBG Lactic Acid 1.1 08/30/24 17:17: Troponin I 0.02 08/30/24 20:14: POC Glucose 113 H 08/30/24 20:52: Troponin I 0.02 08/31/24 02:43: Urine Color Yellow, Urine Appearance Slightly cloudy, Urine pH 6.0, Ur Specific Muncy 1.025, Urine Protein 3+ A, Urine Glucose (UA) 1+, Urine Ketones Negative, Urine Blood 2+ A, Urine Nitrate Negative, Urine Bilirubin Negative, Urine Urobilinogen 0.2, Ur Leukocyte Esterase Negative, Urine RBC 5- 10, Urine WBC 3-5, Ur Squamous Epith Cells 3-5, Amorphous Sediment 2+, Urine Bacteria 3+, Urine Mucus 1+, MRSA (PCR) Positive A 08/31/24 04:56: WBC 25.2 H*, RBC 3.55 L, Hgb 8.9 L D, Hct 30.0 L, MCV 84.5, MCH 25.1 L, MCHC 29.7 L, RDW 15.7, Plt Count 281, MPV 10.0, Neut % (Auto) 86.5 H, Lymph % (Auto) 5.4 L, Haralson % (Auto) 6.6, Eos % (Auto) 0.0 L, Baso % (Auto) 0.2, Neut # (Auto) 21.7 H, Lymph # (Auto) 1.4, Haralson # (Auto) 1.7 H, Eos # (Auto) 0.0, Baso # (Auto) 0.1, Total Counted 100, Neutrophils % (Manual) 88 H, Band Neutrophils % 4, Lymphocytes % (Manual) 5 L, Atypical Lymphs % Not Reportable, Monocytes % (Manual) 2, Platelet Estimate Not Reportable, RBC Morphology Not Reportable, ESR 111 H, Sodium 139, Potassium 4.2, Chloride 104, Carbon Dioxide 25, Anion Gap 14.2, BUN 41 H, Creatinine 1.80 H D, Estimated Creat Clear 39, Estimated GFR 28 L, Est GFR ( Amer) 34 L D, Glucose 274 H D, Hemoglobin A1c 8.7 H, Lactate 1.5, Calcium 8.7, Magnesium 2.0 D, Total Bilirubin 0.4, AST 23, ALT 15, Alkaline Phosphatase 135 H, Lactate Dehydrogenase 151 L, C-Reactive Protein 104.4 H, Total Protein 6.3, Albumin 2.9 L D, Globulin 3.4 H, Albumin/Globulin Ratio 0.9 L, Procalcitonin 1.14 08/31/24 06:21: POC Glucose 268 H I & O for Labs for Last 24 Hours: Intake & Output 09/01/24 09/02/24 09/03/24 09/04/24 23:59 23:59 23:59 23:59 Intake Total 1120 / 1700 1140 / 1240 1940 / 1940 480 / 480 Output Total 2855 / 3155 3000 / 3200 3750 / 3750 1100 / 1100 Balance -1735 / -1455 -1860 / -1960 -1810 / -1810 -620 / -620 Weight 203 lb 8 oz 200 lb 1.6 oz 191 lb 3.2 oz 192 lb 3.2 oz Intake & Output 08/28/24 08/29/24 08/30/24 08/31/24 23:59 23:59 23:59 23:59 Intake Total 854 / 854 Output Total 820 / 820 Balance 34 / 34 Weight 170 lb 188 lb Microbiology Reports for the Last 24 Hours: Microbiology 09/03/24 13:00 Bronchial Washings - Right Lower Lobe Gram Stain - Final 08/30/24 14:44 Blood Blood Culture - Preliminary NO GROWTH AFTER 4 DAYS 08/30/24 14:39 Blood Blood Culture - Preliminary NO GROWTH AFTER 4 DAYS Constitutional: Present moderate distress Head: Present normocephalic and atraumatic ENT: Present normal exam, normal oropharynx and mucous membranes moist Neck: Present normal inspection and full ROM Respiratory: Present prolonged expiratory phase, respiratory distress, rhonchi, wheezes, crackles and able to speak in complete sentences Cardiac: Present S1/S2, Tachycardia and radial pulses present GI: Present soft and distention; Absent tenderness or guarding Rectal (female): Present deferred (female): Present deferred Skin: Present intact; Absent cyanosis or jaundice Neuro: Present alert, awake and oriented x 3 Extremities: Present normal inspection and edema; Absent clubbing or cyanosis Psychiatric: Present normal affect and cooperative Assessment and Plan *Assessment and plan (1) Multifocal pneumonia: Status: Acute Category: Medical Code(s): J18.8 - Other pneumonia, unspecified organism (2) Acute and chronic respiratory failure with hypoxia: Status: Acute Category: Medical Code(s): J96.21 - Acute and chronic respiratory failure with hypoxia Plan Ms. Bartlett is a 64-year-old female greater than [id number] smoking history severe COPD chronic hypoxic respiratory failure, pulmonary langerhan cell histiocytosis, heart failure preserved EF presented to ER with worsening respiratory distress pleuritic chest pain admitted to the hospital and pulmonary was called for further evaluation and management. Admit progressively worsening respiratory distress with cough and productive phlegm. Stopped smoking, has not smoked in the last 4 weeks. Status post completion of 5 days of levofloxacin from 08/03/2024 with worsening infiltrates. Afebrile. Hemodynamically stable. Neutrophilic predominant leukocytosis. Comprehensive respiratory viral PCR panel negative. Nasal MRSA PCR positive for CTA PE protocol upon admission no evidence of pulmonary embolism. Predominant right sided airspace disease, worsened from her most recent CT scan from July 2024 during which she completed 5-day course of levofloxacin.Continue to show previous noted fibrotic changes, also worsening. Currently receiving vancomycin and cefepime nebulization therapies and steroids CRP elevated on admission at 124.4 On initial examination examination moderate respiratory distress. Significant wheezing noted on auscultation. Admits improving symptoms. Echocardiogram normal systolic and diastolic function Interval update: Status post bronchoscopy bronchoalveolar lavage status post bronchoscopy bronchoalveolar lavage. No acute respiratory vents overnight. Improving oxygen requirements. Wheezing noted on auscultation. BAL with few gram-positive cocci. Final cultures pending. CRP continued to improve now at 33.1 Improving chest x-ray infiltrates. Plan: Follow-up with speech and swallow recommendations. Aspiration precaution Discontinue vancomycin. Continue cefepime pending final culture results Chest percussion therapy Mucomyst and hypertonic saline twice daily. Continue oxygen supplementation to maintain O2 saturation goal of 90% and above. DuoNebs every 6 hours along with Pulmicort every 12 scheduled # Thank you for involving pulmonary in this patient care. Will continue to follow
--- NOTE | 2024-09-04 09:27 | XR_ITS ---
FINAL REPORT TECHNIQUE: Single view chest CLINICAL HISTORY: PNM COMPARISON: 1 day prior FINDINGS: A single view of the chest was obtained. The heart and mediastinum are within normal limits. There is an oval opacity at the periphery of the right midlung demonstrate further improvement. There are diffuse coarse interstitial changes seen. There is no pneumothorax. IMPRESSION: Further mild improvement of the right midlung infiltrate. Reviewed, Interpreted and Dictated by Marcia Luque MD Transcribed by Milagros López Authenticated and [facility]
--- NOTE | 2024-09-04 09:38 | HMH.SLMBS2 ---
Speech & Language Evaluation Speech/Lang Modified Barium Swallow Start: 09/04/24 09:00 Freq: ONCE Status: Complete Protocol: Document 09/04/24 09:27 JAVIERDALILA (Rec: 09/04/24 09:38 FRANC [id number]) SEGMENTAL PAVER INSTALLER Evaluation Information SEGMENTAL PAVER INSTALLER Evaluation Information Date of Evaluation: 09/04/24 Time of Evaluation: 09:00 Evaluation Type Initial Certification Reason for Referral s/sxs of aspiration during CSE Does Patient Qualify Yes for Service Qualify/Failure Based on clinical observations made throughout MBSS, pt Comment would benefit from skilled speech therapy services to address dysphagia exercises to improve swallowing efficiency across multiple settings and environments. MBS Recommendations Recommendation PHYSICIAN CERTIFICATION: The specified therapy services are required, authorized, and reviewed every 30 days. Patient will be Seen 2 # Times/Week For # of Weeks 4 Plan Anticipate reaching 2 STG in # weeks Anticipate reaching 4 LTG in # weeks Pt/Guardian verbally Yes ack understanding of dx/prognosis/ goals Diet Dietary Mechanical Soft,Chopped Meats,Thin Liquids Recommendations SL Swallow Assist w/all meals,Alt bite w/sip thru meal,High Guidelines aspiration risk,Crush meds as allowed*,Reflux precautions Swallowing Crush Crush all meds Meds Treatment/Strategies Treatment Base of Tongue Exercises,Pharyngeal Resistive Exer, Recommendations Compens. Strategy Educat. Strategy/Precaution Sitting Upright (90 deg),Chin Tuck,Double Swallow,No Recommended Straw,Small Bites and Sips,Alternate Liquids/Solids SEGMENTAL PAVER INSTALLER Patient History Section SEGMENTAL PAVER INSTALLER Patient History Primary Medical SEGMENTAL PAVER INSTALLER pulled following information from chart review and History H&P, Jania Bartlett is a 64-year-old female with a medical history of COPD on 2 L baseline, greater than 30 pack smoking history, HFpEF, insulin-dependent diabetes, hypertension, anxiety/depression, who presents with 2-week onset of progressive shortness of breath and cough. Patient states that she is not able to cough up anything, but does endorse right-sided pleuritic chest pain and now generalized chest pain from coughing. Also endorses nonspecific generalized abdominal pains, denies fever/chills. States her lower extremity edema is at baseline. Workup in the ED significant for WBC 22.4, CRP 51.8, procalcitonin normal, CTA chest revealing right lower lobe pneumonia. Patient is also tachypneic and now requiring 4 L nasal cannula. Patient was given ceftriaxone, azithromycin. Fluids were held due to suspicion of fluid overload. Case discussed by ED provider initially was made to admit patient for sepsis secondary to community-acquired pneumonia. CXR reports: FINDINGS: CHEST 1 VIEW There are patchy airspace opacities, greatest on the right, suspicious for pneumonia. Some of this may be related to chronic change. The heart and mediastinum are unremarkable. IMPRESSION: Findings suspicious for pneumonia. Recommend continued follow-up. CTA reports: FINDINGS: Pulmonary arteries: Normal. No pulmonary emboli. Aorta: Unremarkable. No aortic aneurysm. No aortic dissection. Lungs: Biapical fibronodular scarring and infiltrate. Right lower lobe infiltrate. Pleural spaces: Unremarkable. No pneumothorax. No pleural effusion. Heart: Unremarkable. No cardiomegaly. No pericardial effusion. Lymph nodes: Unremarkable. No enlarged lymph nodes. Bones/joints: Compression fracture T12. Similar to comparison 08/03/2024. Soft tissues: Unremarkable. IMPRESSION: 1. Biapical fibronodular scarring and infiltrate. Right lower lobe infiltrate. 2. Compression fracture T12. Similar to comparison . Does Patient have Yes Reflux or GERD? Does Patient Yes Experience Coughing or Choking Episodes? Coughing or Choking overt s/sxs of aspiration during CSE Comment Does Patient Avoid No Certain Food Textures/ Consistencies? Does Patient Utilize No Compensatory Strategies During Meals? Has Patient No Experienced Significant Weight Loss? Does Pt have Hx of Yes Recurrent Pneumonias or Respiratory Infections? Hx of Recurrent multiple hospitalizations for pna Infection Comment Mod Barium Swallow Study Patient Orientation Patient Orientation Person,Place Oral Expression Mild Impairment Ability Ability to Follow Good Directions Is Patient able to Yes Perform Volitional Throat Clear? Is Patient able to Yes Perform Volitional Cough? Is Patient able to Yes Manage Secretions Independently? Mod Barium Swallow Set Up Radiologist Fredrick Lala Patient Presentation Awake,Alert,Appropriate,Follows Commands : Bolus Consistencies Thin Liquids,Pudding,Puree,Mechanical Soft,Pill (Barium Trialed: Tablet) MBSS Observations Consistency & Strategy Trial Mechanical Soft Penetration/ 2 Aspiration Scale PAS Amount Trace Pharyngeal Residual 10-49% Mechanical Soft Half Bolus Penetration/ 2 Aspiration Scale PAS Amount Trace Pharyngeal Residual 10-49% Puree Full Spoon Penetration/ 2 Aspiration Scale PAS Amount Trace Pharyngeal Residual 10-49% Puree Half Spoon Penetration/ 1 Aspiration Scale PAS Amount Trace Pharyngeal Residual 0-9% Pudding Full Spoon Penetration/ 2 Aspiration Scale PAS Amount Trace Pharyngeal Residual 10-49% Pudding Half Spoon Penetration/ 1 Aspiration Scale PAS Amount Trace Pharyngeal Residual 0-9% Thin Straw Sip Penetration/ 2 Aspiration Scale PAS Amount Trace Pharyngeal Residual 10-49% Thin Open Cup Sip Penetration/ 1 Aspiration Scale PAS Amount Neither Pharyngeal Residual 0-9% Mod Barium Swallow Impressions Oral Phase Summary & Impressions Oral Phase: Mild Impairment Impression Oral Phase: Labial Minimal Impairment Closure Oral Phase: Bolus Mild Impairment Formation Pooling L/ R Oral Phase: Bolus Mild Impairment Formation Under Tongue Oral Phase: Bolus Minimal Impairment Formation Scattered Loss Oral Phase: Mild Impairment Mastication Rotary Chew Oral Phase: Mild Impairment Mastication Munching Oral Phase: Mild Impairment Mastication Lateralization Oral Phase: Lingual Mild Impairment Movement Oral Phase: Residue Mild Impairment Clearing Oral Phase: Summary Oral preparatory and oral transit phase of the swallow are mildly impaired 2' increased mastication time, poor bolus formation, scattered loss and limited manipulation of bolus and difficulty transitioning bolus to initiate swallow. Pt was unable to manipulate barium tablet with thin liquids and pudding and pill remained in oral cavity, eventually being spit out. Pharyngeal Phase Summary & Impressions Pharyngeal Phase: Moderate Impairment Impression Pharyngeal Phase: A/ Moderate Impairment P Lingual Propulsion Spills Pharyngeal Phase: Moderate Impairment Swallow Response Delay Pharyngeal Phase: Moderate Impairment Base of Tongue Pharyngeal Phase: Mild Impairment Epiglottic Coverage Pharyngeal Phase: Mild Impairment Laryngeal Elevation Pharyngeal Phase: Moderate Impairment Vallecular Retention Clearing Pharyngeal Phase: Mild Impairment Pharyngeal Wall Residue Clearing Pharyngeal Phase: Minimal Impairment Piriform Sinus Retention Pharyngeal Phase: Moderate impairment of the pharyngeal phase of the Summary swallow. Delayed initiation of swallow noted, with premature spillage and AP spills across all consistencies resulting in vallecular residual pooling. Pt required double swallow to clear majority of residual, however, trace residual remained and no compensatory strategy was able to clear. Pt also is noted to have reduced hyolaryngeal excursion resulting in limited epiglottic coverage. Pt is at risk for aspiration of residuals pooling in vallecular space. Pt also demonstrates fatigue in swallow. Aspiration Aspiration? No Silent Aspiration? No SEGMENTAL PAVER INSTALLER MBSS Goals MBS Wool Classer Goals Patient will utilize Double Swallow,Chin Tuck,No Straws,Alternate Bites & compensatory Sips,Sitting Upright,Small Bites & Sips strategies with PO intake in order to meet nutrition and hydration needs for daily meals without overt signs/symptoms of aspiration. The patient will Mechanical Soft,Chopped Meats,Thin Liquids tolerate the least restrictive diet with a safe/ efficient swallow to maintain adequate nutrition and hydration. ?The patient and/or Yes family will participate in further education for swallowing goals . The patient will Supraglottic Swallow,Anju Maneuver,Falsetto E,HAWK complete a home education program of dysphagia exercises and/or complete structured swallowing therapy to improve swallow function through utilization of recommended therapy approaches MBS Short Term Goals The patient will Supraglottic Swallow,Anju Maneuver,Falsetto E,HAWK demonstrate __% accuracy and require ____ cuing in structured swallowing therapy with the SEGMENTAL PAVER INSTALLER using the following exercises/therapy approaches and therapy assisted devices. Accuracy Percentage 75 Demonstration Cueing Requirement Moderate Pt. will tolerate Yes least restrictive diet w/o any overt s /s of aspiration & penetration independently w/ use of required compensatory strategies in order to meet nutrition & hydration needs for daily meals. Dietary Mechanical Soft,Chopped Meats,Thin Liquids Recommendations: MBS Short Term Goals Compensatory Double Swallow,Chin Tuck,No Straws,Alternate Bites & Strategies: MBS Sips,Sitting Upright,Small Bites & Sips Short Term Goals Education Instructions Discussed results of MBSS, as well as compensatory provided strategies to be implemented with pt and nursing both of which expressed understanding. Patient/Caregiver Able to recall/restate Able to Recall Information Reinforcement needed No PHYSICIAN CERTIFICATION: I certify the specified therapy services for Kassy Bartlett are required, authorized, and reviewed every 30 days.
[2024-09-04 09:41] LABS: Ferritin 73.5 ng/ml (11.1-264)
--- NOTE | 2024-09-04 09:43 | EXP.ANES.II ---
[facility] Anesthesia Record Part II Anesthesia Record Part II Discharge Time: 13:40 Destination: Surgical Day Care (OP Surgery) PACU nurse assessment reviewed?: Yes Patient Condition:: Good Anesthesia Complications:: None Swallowing reflex intact?: Yes Airway Patency: Patent Cyanosis?: No Blood Pressure: 144/80 SaO2: 94 Respiratory Rate: 18 Pulse Rate: 73 Temperature: 97 F Mental Status: Alert & Oriented Pain level:: 0 Nausea and/or vomitting:: None Intake, IV Amount: 0 Hydration: Adequate
--- NOTE | 2024-09-04 10:01 | P.PN_ITS ---
Subjective *Date: 09/04/24 *Time: 15:37 Interval history: Patient still complaining of abdominal pain today, still feels short of breath. On baseline 2 to 3 L of oxygen at this time. White count remains elevated. Still quite wheezy. No nausea or vomiting. Has not had significant bowel movement in the past [address] on admission did mention constipation. Afebrile Medical Exam Vital signs and Labs for Last 24 Hours: Vital Signs Temp Pulse Pulse Resp BP BP Pulse Ox 09/04/24 09:43 18 09/04/24 06:44 09/04/24 05:48 75 09/04/24 05:48 78 09/04/24 05:48 94 L 09/04/24 05:00 09/04/24 04:00 65 09/04/24 04:00 98.3 F 67 18 153/75 H 97 09/04/24 03:00 09/04/24 01:00 09/04/24 00:05 70 09/04/24 00:05 72 09/04/24 00:00 65 09/04/24 00:00 98.3 F 73 16 111/98 H 91 L 09/03/24 22:43 09/03/24 21:00 09/03/24 20:00 75 09/03/24 20:00 09/03/24 20:00 98.2 F 75 16 132/69 93 L 09/03/24 18:44 09/03/24 18:26 71 09/03/24 18:26 74 09/03/24 18:26 92 L 09/03/24 17:00 09/03/24 16:10 68 18 156/88 H 94 L 09/03/24 16:00 98.3 F 70 22 138/76 94 L 09/03/24 16:00 71 09/03/24 15:40 69 20 155/76 H 93 L 09/03/24 15:10 98.0 F 69 20 150/64 H 92 L 09/03/24 15:00 09/03/24 14:43 100 H 20 160/77 H 92 L 09/03/24 14:40 75 18 138/76 95 09/03/24 14:25 79 18 114/76 95 09/03/24 14:10 72 16 164/83 H 94 L 09/03/24 13:55 97.9 F 73 16 158/80 H 92 L 09/03/24 13:40 97.0 F L 73 18 144/80 H 94 L 09/03/24 13:30 97.0 F L 72 18 143/72 H 94 L 09/03/24 13:20 97.0 F L 75 20 159/77 H 94 L 09/03/24 13:18 97.0 F L 100 H 20 160/77 H 09/03/24 13:10 97.0 F L 100 H 20 160/77 H 92 L 09/03/24 11:14 98.2 F 75 22 162/75 H 95 09/03/24 11:00 O2 Del Method O2 Flow Rate 09/04/24 09:43 09/04/24 06:44 Room Air 09/04/24 05:48 09/04/24 05:48 09/04/24 05:48 Nasal Cannula 4 09/04/24 05:00 Nasal Cannula 3 09/04/24 04:00 09/04/24 04:00 Nasal Cannula 3 09/04/24 03:00 Nasal Cannula 3 09/04/24 01:00 Nasal Cannula 3 09/04/24 00:05 09/04/24 00:05 09/04/24 00:00 09/04/24 00:00 3 09/03/24 22:43 Nasal Cannula 3 09/03/24 21:00 Nasal Cannula 3 09/03/24 20:00 09/03/24 20:00 Nasal Cannula 3 09/03/24 20:00 Nasal Cannula 4 09/03/24 18:44 Nasal Cannula 3 09/03/24 18:26 09/03/24 18:26 09/03/24 18:26 Nasal Cannula 3 09/03/24 17:00 Nasal Cannula 09/03/24 16:10 Nasal Cannula 09/03/24 16:00 Nasal Cannula 4 09/03/24 16:00 09/03/24 15:40 Nasal Cannula 09/03/24 15:10 Nasal Cannula 09/03/24 15:00 Nasal Cannula 09/03/24 14:43 Room Air 09/03/24 14:40 Nasal Cannula 09/03/24 14:25 Nasal Cannula 4 09/03/24 14:10 Nasal Cannula 4 09/03/24 13:55 Nasal Cannula 4 09/03/24 13:40 Nasal Cannula 3 09/03/24 13:30 Nasal Cannula 4 09/03/24 13:20 Nasal Cannula 6 09/03/24 13:18 09/03/24 13:10 Non-Rebreather 10 09/03/24 11:14 Nasal Cannula 2 09/03/24 11:00 Nasal Cannula Intake and Output 09/03/24 09/04/24 09/04/24 23:59 07:59 15:59 Intake Total 740 / 1940 480 / 480 0 / 480 Output Total 2050 / 3750 1100 / 1100 Balance -1310 / -1810 -620 / -620 0 / -620 Intake: Intake, Oral Amount 640 / 640 480 / 480 Intake, Total IV Amount 100 / 1300 0 / 0 Cefepime HCl 2 gm In 0.9 % 100 / 200 Sodium Chloride 100 ml @ 200 mls/hr IV Q12H [facility] Rx#:[id number] Output: Output, Urine Amount 1650 / 3350 1100 / 1100 Output, Urine Amount (Catheter) 400 / 400 Urethral 400 / 400 Other: Number of Unmeasured Voids 0 1 Number of Bowel Movements 1 1 Weight 87.18 kg Patient Weight 09/04/24 23:59 Weight 87.18 kg Laboratory Results - last 24 hr 09/02/24 15:55: Tumor Marker AFP 2.1, Carcinoembryonic Ag 10.3 H, CA 19-9 Antigen 31 09/03/24 11:08: POC Glucose 163 H 09/03/24 16:42: POC Glucose 280 H 09/03/24 20:35: POC Glucose 264 H 09/04/24 06:39: POC Glucose 131 H 09/04/24 06:49: WBC 16.1 H, RBC 4.43, Hgb 11.3 L D, Hct 36.3 L, MCV 81.9, MCH 25.5 L, MCHC 31.1 L, RDW 15.9, Plt Count 416, MPV 10.3, Neut % (Auto) 74.1, Lymph % (Auto) 14.5, [place] % (Auto) 8.0, Eos % (Auto) 0.1, Baso % (Auto) 0.6, Neut # (Auto) 12.0 H, Lymph # (Auto) 2.3, [place] # (Auto) 1.3 H, Eos # (Auto) 0.0, Baso # (Auto) 0.1, ESR 52 H, Sodium 143, Potassium 5.1 D, Chloride 106, Carbon Dioxide 25, Anion Gap 17.1 H, BUN 70 H, Creatinine 1.90 H, Estimated Creat Clear 42, Estimated GFR 27 L, Est GFR ( Amer) 32 L, Glucose 130 H, Calcium 9.6, Magnesium 1.7, Iron 57, TIBC 304, Iron Saturation [id number], Ferritin 73.5, Total Bilirubin 1.1, AST 59 H D, ALT 32 D, Alkaline Phosphatase 196 H, C-Reactive Protein 33.1 H, Total Protein 9.1 H D, Albumin 4.1 D, Globulin 5.0 H, Albumin/Globulin Ratio 0.8 L, Vitamin B12 851, Folate 5.46 I & O for Labs for Last 24 Hours: Intake & Output 09/01/24 09/02/24 09/03/24 09/04/24 23:59 23:59 23:59 23:59 Intake Total 1120 / 1700 1140 / 1240 1940 / 1940 480 / 480 Output Total 2855 / 3155 3000 / 3200 3750 / 3750 1100 / 1100 Balance -1735 / -1455 -1860 / -1960 -1810 / -1810 -620 / -620 Weight 92.306 kg 90.764 kg 86.727 kg 87.18 kg Microbiology Reports for the Last 24 Hours: Microbiology 09/03/24 13:00 Bronchial Washings - Right Lower Lobe Gram Stain - Final 08/30/24 14:44 Blood Blood Culture - Preliminary NO GROWTH AFTER 4 DAYS 08/30/24 14:39 Blood Blood Culture - Preliminary NO GROWTH AFTER 4 DAYS Constitutional: Present no acute distress, average body habitus, chronically ill appearing and cooperative Head: Present atraumatic and normocephalic ENT: Present normal exam Neck: Present normal inspection Respiratory: Present prolonged expiratory phase, wheezes (Diffuse, nonfocal) and normal respiratory effort; Absent rhonchi or crackles Cardiac: Present Reg Rate and Rhythm GI: Present soft, tenderness (Left lower abdomen) and diminished bowel sounds; Absent distention, guarding or rebound Extremities: Present normal inspection and full ROM; Absent edema Comment:: Senile purpura on arms Skin: Present intact and ecchymosis; Absent erythema Neuro: Present Grossly Intact, alert, awake, oriented x 3 and moves all extremities Comment:: Tremor present Assessment and Plan *Assessment and plan (1) Multifocal pneumonia: Status: Acute Category: Medical Code(s): J18.8 - Other pneumonia, unspecified organism (2) Pneumonia: Status: Acute Category: Medical Code(s): J18.9 - Pneumonia, unspecified organism (3) Dysphagia: Status: Acute Qualifiers: Dysphagia type: unspecified Qualified Code(s): R13.10 - Dysphagia, unspecified Category: Medical Code(s): R13.10 - Dysphagia, unspecified (4) CKD (chronic kidney disease): Status: Acute Category: Medical Code(s): N18.9 - Chronic kidney disease, unspecified (5) COPD (chronic obstructive pulmonary disease): Status: Acute Category: Medical Code(s): J44.9 - Chronic obstructive pulmonary disease, unspecified (6) HTN (hypertension): Status: Chronic Qualifiers: Hypertension type: essential hypertension Qualified Code(s): I10 - Essential (primary) hypertension Category: Medical Code(s): I10 - Essential (primary) hypertension (7) RAGHAV (acute kidney injury): Status: Acute Category: Medical Code(s): N17.9 - Acute kidney failure, unspecified Plan Jania Bartlett is a 64-year-old female with a medical history of COPD on 2 L baseline, greater than 30 pack smoking history, HFpEF, insulin-dependent diabetes, hypertension, anxiety/depression, who presents with 2-week onset of progressive shortness of breath and cough. Patient states that she is not able to cough up anything, but does endorse right-sided pleuritic chest pain and now generalized chest pain from coughing. Also endorses nonspecific generalized abdominal pains, denies fever/chills. States her lower extremity edema is at baseline. Workup in the ED significant for WBC 22.4, CRP 51.8, procalcitonin normal, CTA chest revealing right lower lobe pneumonia. Met sepsis criteria on admission due to tachycardia and tachypnea along with elevated white count and multifocal pneumonia. Showing improvement. On baseline 2 to 3 L oxygen. Slow to improve from respiratory bronchoconstriction standpoint. Continues to require patient management. Anticipate discharge in the next day or 2. Pulmonology assisting. Problems addressed as follows: #Acute on chronic hypoxic respiratory failure #Community-acquired pneumonia #Sepsis # COPD exacerbation ? Presented with 2-weeks of progressive shortness of breath, nonproductive cough. Initial WBC 22.4, with tachypnea. ? CTA chest revealed right lower lobe pneumonia, CXR shows chronic interstitial changes. Procalcitonin normal. ? White count 16 today, repeat CBC, CMP, magnesium ordered for the morning. - Discussed case with pulmonology, recommends continuing cefepime, discontinue vancomycin - Speech evaluated, recommend mechanical soft. -Initiate chest percussion therapy with Mucomyst and hypertonic saline twice daily. Goal sats greater 90%, currently on 2 to 3 L. -DuoNebs every 6 hours and Pulmicort twice daily - Blood cultures NGTD. MRSA PCR positive. Patient unable to cough sputum, thus bronchoscopy was performed with BAL cultures. ? However, patient states she continues to have shortness of breath (but improving) which more likely represents volume overload/pulmonary edema and COPD exacerbation. #HFpEF exacerbation #RAGHAV on CKD ? Presented with 3+ lower extremity pitting edema, with significant improvement diuresis. Pulmonary edema also improving. ? Continue IV Bumex 2 mg twice daily, diuresing well. Holding off on spironolactone due to hyperkalemia. -6L so far. ? Creatinine 2.5 on presentation, improved to 1.9 today. BUN 70. ? ECHO 08/31/2024 shows a normal biventricular systolic function, increased LV wall thickness but normal diastolic function. #Physical deconditioning ? PT/OT consulted, recommended SNF. Will discharge back to [facility] when medically stable. #Insulin-dependent diabetes ? Hemoglobin A1c 8.7%. ? Bl glucose 163 this morning, Lantus 30 units nightly - Morning glucose 130 ? LDSSI, ACHS glucose checks. #Paroxysmal A-fib ? Continue home metoprolol 25 mg twice daily, Eliquis 5 mg twice daily. Currently rate controlled. ? Has had episodes of A-fib RVR with breathing treatments, switch to levalbuterol. ? IV Lopressor 5 mg as needed. #Hypertension ? Continue home Imdur 30 mg daily, hold home ARB due to RAGHAV. #Anxiety/depression ? Continue home BuSpar. Constipation/abdominal pain: Administer mag citrate 10 ounces once today. Continue MiraLAX and docusate senna. Suspect this is a culprit in her abdominal pain DNR/DNI DVT prophylaxis: Home Eliquis
[2024-09-04] MEDS: MAGNESIUM CITRATE 296ML BOTTLE 296 ML PO (10:37)
[2024-09-04 10:44] LABS: POC Glucose,Bedside 257 (70-110)
[2024-09-04] MEDS: SODIUM CHLORIDE 3% 15ML NEB 3 ML IH ×2 (10:54→18:24)
[2024-09-04] MEDS: humaLOG 100 UNITS/ML 10ML VIAL (SSI) SUBCUT ×3 (11:01→21:06)
--- NOTE | 2024-09-04 13:46 | PC.NURSE ---
Addendum entered by Gabriella Chavez RN 09/04/24 13:51: also educated patient to double swallow. patient verbalized and demonstrated understanding. Original Note: educated patient during meal times to take small bites of food followed by sips of a drink, patient verbalized and demonstrated understanding.
[2024-09-04 16:14] LABS: POC Glucose,Bedside 146 (70-110)
[2024-09-04 16:20] LABS: POC Glucose,Bedside 228 (70-110)
[2024-09-04 16:20] LABS: POC Glucose,Bedside 286 (70-110)
[2024-09-04 16:39] LABS: POC Glucose,Bedside 205 (70-110)
--- NOTE | 2024-09-04 16:57 | PC.NURSE ---
patient is alert and oriented with periods of acute confusion. remains on 3LNC. patient had a large BM this shift via BSC patient stated ABD pain feels better after BM. tolerating mechanical soft chopped diet. FSBS. currently up to chair, call light within reach.
[2024-09-04] MEDS: FAMOTIDINE 20MG TABLET 20 MG PO (21:04)
[2024-09-04] MEDS: INSULIN GLARGINE 100 UNITS/ML 3ML FLEXPEN 30 UNIT SUBCUT (21:07)
[2024-09-04] MEDS: OXYCODONE 5MG IMMEDIATE RELEASE TABLET 5 MG PO (22:32)
[2024-09-04 23:13] LABS: POC Glucose,Bedside 218 (70-110)
[2024-09-05] VITALS (10 sets, daily range): BP systolic 126–156; BP diastolic 54–85; PULSE 60–79; RESP 16–18; TEMP 36.6–36.9; O2SAT 93–97; BMI 31.4
[2024-09-05] MEDS: IPRATROPIUM BROMIDE 0.5 MG/2.5ML SOLUTION IH ×2 (00:17→06:21)
[2024-09-05] MEDS: LEVALBUTEROL 1.25MG/3ML NEB 1.25 MG IH ×2 (00:17→06:22)
[2024-09-05] MEDS: ACETAMINOPHEN 325MG TAB 650 MG PO (01:48)
--- NOTE | 2024-09-05 03:52 | PC.NURSE ---
Pt. is alert and orientated x 4. No cufusion this shift. Pt. is on oxygen 3 liters per N/C. Pt. congested and coughing. Pt, has a strong congested cough but cough non productive. Pt. c/o left sided abdominal and and headache this shift. Medicated per APR. Pt. sleeping off and on. States she is tired but not sleeping well. Pt. drinking and swallowing well. No choking episodes. Pt. was up in chair for quite a while. Tolerated well. Pt. states she does not feel well. Pt. has BLE edema. Purewick in place. Personal items and call lira in reach.
[2024-09-05] MEDS: BUDESONIDE 0.5MG/2ML NEB 0.5 MG IH (06:22)
[2024-09-05 06:23] LABS: POC Glucose,Bedside 146 (70-110)
[2024-09-05 06:28] LABS: Hematocrit 32.4 % (37.0-47.0); Immature Granulocytes % 3.6 %; Mean Corpuscular HGB Conc 29.9 g/dL (31.8-35.4); Mean Corpuscular Hemoglobin 24.3 pg (27.0-31.2); Mean Corpuscular Volume 81.2 fl (81-99); Nucleated Red Blood Cells % 0.1 %; Platelet Count 375 K/mm3 (142-424); Red Blood Count 3.99 M/mm3 (4.20-5.40); Red Cell Distribution Width-SD 46.7 fL; White Blood Count 15.6 K/mm3 (4.8-10.8)
[2024-09-05] MEDS: SODIUM CHLORIDE 3% 15ML NEB 3 ML IH ×2 (06:33→18:20)
[2024-09-05 06:45] LABS: Hemoglobin 9.9 g/dL (12.2-16.2)
[2024-09-05 06:56] LABS: Alanine Aminotransferase 32 U/L (12-78); Albumin Level 3.1 g/dl (3.5-5.0); Albumin/Globulin Ratio 0.9 (1.1-1.8); Alkaline Phosphatase 167 U/L (38-126); Anion Gap 8.4 mEq/L (5-15); Aspartate Amino Transferase 63 U/L (14-36); Bilirubin,Total 0.7 mg/dl (0.2-1.3); Blood Urea Nitrogen 76 mg/dl (7-17); Calcium 9.1 mg/dl (8.4-10.2); Carbon Dioxide 29 mmol/L (22.0-30.0); Chloride 106 mmol/L (98-107); Creatinine Clearance Estimated 46 mL/min (50-200); Creatinine,Serum 1.70 mg/dl (0.52-1.04); Estimated Glomerular Filt Rate 30 ml/min (>60); GFR (African American) 37 ML/MIN (>60); Globulin 3.6 g/dL (1.3-3.2); Glucose 154 mg/dl (74-100); Magnesium 2.1 mg/dl (1.6-2.3); Potassium 4.4 mmoL/L (3.5-5.1); Sodium 139 mmol/L (136-145); Total Protein,Serum 6.7 g/dl (6.3-8.2)
[2024-09-05 07:03] LABS: C-Reactive Protein 15.5 mg/L (0-4)
[2024-09-05 08:35] LABS: RBC Morphology Normal; Total Cells Counted 100
[2024-09-05] MEDS: DOCUSATE SODIUM 100 MG CAPSULE PO ×2 (08:59→21:21)
[2024-09-05] MEDS: APIXABAN 5MG TABLET 5 MG PO ×2 (08:59→21:21)
[2024-09-05] MEDS: BUSPIRONE HCL 10 MG TABLET PO ×2 (08:59→21:22)
[2024-09-05] MEDS: AZITHROMYCIN 250MG TABLET 500 MG PO (08:59)
[2024-09-05] MEDS: METOPROLOL TARTRATE 25MG TABLET 25 MG PO ×2 (08:59→21:24)
[2024-09-05] MEDS: BENZONATATE 100MG CAPSULE 200 MG PO ×3 (08:59→21:23)
[2024-09-05] MEDS: ISOSORBIDE MONO 30MG TAB.ER.24H 30 MG PO (08:59)
[2024-09-05] MEDS: METHYLPREDNISOLONE SOD SUCC 40MG VIAL 40 MG IV (08:59)
[2024-09-05] MEDS: POLYETHYLENE GLYCOL 3350 17 GM PACKET PO (09:00)
[2024-09-05] MEDS: CEFEPIME HCL 2 GM in 0.9 % SODIUM CHLORIDE 100 ML IV ×2 (09:00→21:23)
[2024-09-05] MEDS: BUMETANIDE 1MG/4ML VIAL 2 MG IV ×2 (09:00→16:39)
[2024-09-05] MEDS: GABAPENTIN 100MG CAPSULE 200 MG PO ×2 (09:03→21:23)
[2024-09-05] MEDS: OXYCODONE 5MG IMMEDIATE RELEASE TABLET 5 MG PO (09:03)
--- NOTE | 2024-09-05 09:49 | P.PN_ITS ---
Subjective *Date: 09/05/24 *Time: 11:45 Interval history: No acute respiratory events overnight. Pulmonology Exam Inpatient Vital signs and Labs for Last 24 Hours: Temp Pulse Resp BP Pulse Ox O2 Del Method O2 Flow Rate 98.1 F 71 17 126/54 L 95 Nasal Cannula 3 09/05/24 07:48 09/05/24 08:00 09/05/24 07:48 09/05/24 07:48 09/05/24 07:48 09/05/24 08:00 09/05/24 08:00 FiO2 28 09/02/24 19:06 Laboratory Results - last 24 hr 09/01/24 10:43: POC Glucose 146 H 09/02/24 11:57: POC Glucose 228 H 09/02/24 16:43: POC Glucose 286 H 09/04/24 10:37: POC Glucose 257 H 09/04/24 16:21: POC Glucose 205 H 09/04/24 19:56: POC Glucose 218 H 09/05/24 06:07: WBC 15.6 H, RBC 3.99 L, Hgb 9.9 L D, Hct 32.4 L, MCV 81.2, MCH 24.3 L, MCHC 29.9 L, RDW 15.8, Plt Count 375, MPV 9.6, Neut % (Auto) 59.4, Lymph % (Auto) 25.3, [place] % (Auto) 9.9 H, Eos % (Auto) 1.3, Baso % (Auto) 0.5, Neut # (Auto) 9.3 H, Lymph # (Auto) 4.0, [place] # (Auto) 1.5 H, Eos # (Auto) 0.2, Baso # (Auto) 0.1, Total Counted 100, Neutrophils % (Manual) 60, Lymphocytes % (Manual) 31, Monocytes % (Manual) 8, Eosinophils % (Manual) 1, Platelet Estimate Normal, RBC Morphology Normal, ESR 80 H, Sodium 139, Potassium 4.4, Chloride 106, Carbon Dioxide 29, Anion Gap 8.4, BUN 76 H, Creatinine 1.70 H, Estimated Creat Clear 46, Estimated GFR 30 L, Est GFR ( Amer) 37 L, Glucose 154 H, Calcium 9.1, Magnesium 2.1 D, Total Bilirubin 0.7, AST 63 H, ALT 32, Alkaline Phosphatase 167 H, C-Reactive Protein 15.5 H D, Total Protein 6.7 D, Albumin 3.1 L D, Globulin 3.6 H, Albumin/Globulin Ratio 0.9 L 09/05/24 06:10: POC Glucose 146 H Temp Pulse Resp BP Pulse Ox O2 Del Method O2 Flow Rate 97.4 F L 69 24 124/58 L 96 Nasal Cannula 4 08/31/24 08:00 08/31/24 08:00 08/31/24 08:00 08/31/24 08:00 08/31/24 08:53 08/31/24 09:00 08/31/24 09:00 Laboratory Results - last 24 hr 08/30/24 13:57: WBC 22.4 H*, RBC 4.34, Hgb 11.0 L, Hct 36.6 L, MCV 84.3, MCH 25.3 L, MCHC 30.1 L, RDW 15.9, Plt Count 335, MPV 9.7, Neut % (Auto) 78.0, Lymph % (Auto) 12.4, [place] % (Auto) 8.4, Eos % (Auto) 0.2, Baso % (Auto) 0.4, Neut # (Auto) 17.4 H, Lymph # (Auto) 2.8, [place] # (Auto) 1.9 H, Eos # (Auto) 0.0, Baso # (Auto) 0.1, Total Counted 100, Neutrophils % (Manual) 79 H, Lymphocytes % (Manual) 11, Atypical Lymphs % 1.0, Monocytes % (Manual) 9, Platelet Estimate Normal, Microcytosis 1+, Sodium 140, Potassium 4.4, Chloride 103, Carbon Dioxide 31 H, Anion Gap 10.4, BUN 39 H, Creatinine 1.40 H, Estimated Creat Clear 50, Estimated GFR 38 L, Est GFR ( Amer) 46 L, Glucose 74, Calcium 9.4, Magnesium 1.5 L, Total Bilirubin 0.7, AST 30, ALT 18, Alkaline Phosphatase 203 H , Troponin I 0.02, C-Reactive Protein 51.8 H, NT-Pro-B Natriuret Pep 3560 H, Total Protein 8.1, Albumin 3.7, Globulin 4.4 H, Albumin/Globulin Ratio 0.8 L, Procalcitonin 0.183, Chlamy pneumoniae PCR Not detected, Adenovirus (PCR) Not detected, B. pertussis DNA (PCR) Not detected, Coronavirus OC43 (PCR) Not detected, Coronavirus HKU1 (PCR) Not detected, Coronavirus 229E (PCR) Not detected, SARS-CoV-2 (PCR) Not detected, Coronavirus NL63 (PCR) Not detected, Human Metapneumovir PCR Not detected, Influenza A (H1) PCR Not detected, Influ A (H1N1/09) PCR Not detected, Influenza A (H3) PCR Not detected, Influenza Type A (PCR) Not detected, Influenza Type B (PCR) Not detected, M. pneumoniae (PCR) Not detected, Parainfluenza 1 (PCR) Not detected, Parainfluenza 2 (PCR) Not detected, Parainfluenza 3 (PCR) Not detected, Parainfluenza 4 (PCR) Not detected, RSV (PCR) Not detected, Entero/Rhino (PCR) Not detected 08/30/24 14:17: VBG pH 7.36, VBG pCO2 50.2, VBG pO2 42.8 H, VBG HCO3 27.5, VBG Total CO2 29.1 H, VBG O2 Saturation 79.4 H, VBG Base Excess 2.0, VBG Lactic Acid 1.1 08/30/24 17:17: Troponin I 0.02 08/30/24 20:14: POC Glucose 113 H 08/30/24 20:52: Troponin I 0.02 08/31/24 02:43: Urine Color Yellow, Urine Appearance Slightly cloudy, Urine pH 6.0, Ur Specific [place] 1.025, Urine Protein 3+ A, Urine Glucose (UA) 1+, Urine Ketones Negative, Urine Blood 2+ A, Urine Nitrate Negative, Urine Bilirubin Negative, Urine Urobilinogen 0.2, Ur Leukocyte Esterase Negative, Urine RBC 5- 10, Urine WBC 3-5, Ur Squamous Epith Cells 3-5, Amorphous Sediment 2+, Urine Bacteria 3+, Urine Mucus 1+, MRSA (PCR) Positive A 08/31/24 04:56: WBC 25.2 H*, RBC 3.55 L, Hgb 8.9 L D, Hct 30.0 L, MCV 84.5, MCH 25.1 L, MCHC 29.7 L, RDW 15.7, Plt Count 281, MPV 10.0, Neut % (Auto) 86.5 H, Lymph % (Auto) 5.4 L, [place] % (Auto) 6.6, Eos % (Auto) 0.0 L, Baso % (Auto) 0.2, Neut # (Auto) 21.7 H, Lymph # (Auto) 1.4, [place] # (Auto) 1.7 H, Eos # (Auto) 0.0, Baso # (Auto) 0.1, Total Counted 100, Neutrophils % (Manual) 88 H, Band Neutrophils % 4, Lymphocytes % (Manual) 5 L, Atypical Lymphs % Not Reportable, Monocytes % (Manual) 2, Platelet Estimate Not Reportable, RBC Morphology Not Reportable, ESR 111 H, Sodium 139, Potassium 4.2, Chloride 104, Carbon Dioxide 25, Anion Gap 14.2, BUN 41 H, Creatinine 1.80 H D, Estimated Creat Clear 39, Estimated GFR 28 L, Est GFR ( Amer) 34 L D, Glucose 274 H D, Hemoglobin A1c 8.7 H, Lactate 1.5, Calcium 8.7, Magnesium 2.0 D, Total Bilirubin 0.4, AST 23, ALT 15, Alkaline Phosphatase 135 H, Lactate Dehydrogenase 151 L, C-Reactive Protein 104.4 H, Total Protein 6.3, Albumin 2.9 L D, Globulin 3.4 H, Alb umin/Globulin Ratio 0.9 L, Procalcitonin 1.14 08/31/24 06:21: POC Glucose 268 H I & O for Labs for Last 24 Hours: Intake & Output 09/02/24 09/03/24 09/04/24 09/05/24 23:59 23:59 23:59 23:59 Intake Total 1140 / 1240 1940 / 1940 960 / 960 240 / 240 Output Total 3000 / 3200 3750 / 3750 2950 / 3550 600 / 600 Balance -186 / -1959 -1809 / -1809 -1989 / -360 / -360 Weight 200 lb 1.6 oz 191 lb 3.2 oz 192 lb 3.2 oz 188 lb 8 oz Intake & Output 08/28/24 08/29/24 08/30/24 08/31/24 23:59 23:59 23:59 23:59 Intake Total 854 / 854 Output Total 820 / 820 Balance 34 / 34 Weight 170 lb 188 lb Microbiology Reports for the Last 24 Hours: Microbiology 08/30/24 14:44 Blood Blood Culture - Final NO GROWTH AFTER 5 DAYS 08/30/24 14:39 Blood Blood Culture - Final NO GROWTH AFTER 5 DAYS 08/30/24 09:42 Sputum - Expectorated Sputum Gram Stain - Final Constitutional: Present moderate distress Head: Present normocephalic and atraumatic ENT: Present normal exam, normal oropharynx and mucous membranes moist Neck: Present normal inspection and full ROM Respiratory: Present prolonged expiratory phase, respiratory distress, rhonchi, wheezes and able to speak in complete sentences Cardiac: Present S1/S2, Tachycardia and radial pulses present GI: Present soft and distention; Absent tenderness or guarding Rectal (female): Present deferred (female): Present deferred Skin: Present intact; Absent cyanosis or jaundice Neuro: Present alert, awake and oriented x 3 Extremities: Present normal inspection and edema; Absent clubbing or cyanosis Psychiatric: Present normal affect and cooperative Assessment and Plan *Assessment and plan (1) Multifocal pneumonia: Status: Acute Category: Medical Code(s): J18.8 - Other pneumonia, unspecified organism (2) Acute and chronic respiratory failure with hypoxia: Status: Acute Category: Medical Code(s): J96.21 - Acute and chronic respiratory failure with hypoxia Plan Ms. 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 Admit progressively worsening respiratory distress with cough and productive phlegm. Stopped smoking, has not smoked in the last 4 weeks. Status post completion of 5 days of levofloxacin from 08/03/2024 with worsening infiltrates. Afebrile. Hemodynamically stable. Neutrophilic predominant leukocytosis. Comprehensive respiratory viral PCR panel negative. Nasal MRSA PCR positive for CTA PE protocol upon admission no evidence of pulmonary embolism. Predominant right sided airspace disease, worsened from her most recent CT scan from July 2024 during which she completed 5-day course of levofloxacin.Continue to show previous noted fibrotic changes, also worsening. Currently receiving vancomycin and cefepime nebulization therapies and steroids CRP elevated on admission at 124.4 On initial examination examination moderate respiratory distress. Significant wheezing noted on auscultation. Admits improving symptoms. Echocardiogram normal systolic and diastolic function. Status post bronchoscopy bronchoalveolar lavage status post bronchoscopy bronchoalveolar lavage. Interval update: No acute respiratory events overnight. Cultures not finalized so far. Relatively stable leukocytosis around 16. Completing 7-day course of cefepime today. Continued with diuresis, net negative volume status. Improving wheezing on auscultation. Plan: Trelegy 100 inhaler along with DuoNebs 4 times daily as needed Chest percussion therapy albuterol neb, Mucomyst and hypertonic saline twice daily. Follow-up with speech and swallow recommendations. Aspiration precaution Continue cefepime to complete a total of 7-day course pending final culture results Continue oxygen supplementation to maintain O2 saturation goal of 90% and above. # Thank you for involving pulmonary in this patient care. Will continue to follow
--- NOTE | 2024-09-05 10:28 | P.PN_ITS ---
Subjective *Date: 09/05/24 *Time: 10:28 Interval history: patient is seen at bedside, denied Chest pain, SOB, Nausea, vomiting. no complains today Exam Data for Last 24 hours Vital signs and Labs for Last 24 Hours: Temp Pulse Resp BP Pulse Ox O2 Del Method O2 Flow Rate 98.1 F 71 17 126/54 L 95 Nasal Cannula 3 09/05/24 07:48 09/05/24 08:00 09/05/24 07:48 09/05/24 07:48 09/05/24 07:48 09/05/24 08:00 09/05/24 08:00 FiO2 28 09/02/24 19:06 Laboratory Results - last 24 hr 09/01/24 10:43: POC Glucose 146 H 09/02/24 11:57: POC Glucose 228 H 09/02/24 16:43: POC Glucose 286 H 09/04/24 10:37: POC Glucose 257 H 09/04/24 16:21: POC Glucose 205 H 09/04/24 19:56: POC Glucose 218 H 09/05/24 06:07: WBC 15.6 H, RBC 3.99 L, Hgb 9.9 L D, Hct 32.4 L, MCV 81.2, MCH 24.3 L, MCHC 29.9 L, RDW 15.8, Plt Count 375, MPV 9.6, Neut % (Auto) 59.4, Lymph % (Auto) 25.3, Divide % (Auto) 9.9 H, Eos % (Auto) 1.3, Baso % (Auto) 0.5, Neut # (Auto) 9.3 H, Lymph # (Auto) 4.0, Divide # (Auto) 1.5 H, Eos # (Auto) 0.2, Baso # (Auto) 0.1, Total Counted 100, Neutrophils % (Manual) 60, Lymphocytes % (Manual) 31, Monocytes % (Manual) 8, Eosinophils % (Manual) 1, Platelet Estimate Normal, RBC Morphology Normal, ESR 80 H, Sodium 139, Potassium 4.4, Chloride 106, Carbon Dioxide 29, Anion Gap 8.4, BUN 76 H, Creatinine 1.70 H, Estimated Creat Clear 46, Estimated GFR 30 L, Est GFR ( Amer) 37 L, Glucose 154 H, Calcium 9.1, Magnesium 2.1 D, Total Bilirubin 0.7, AST 63 H, ALT 32, Alkaline Phosphatase 167 H, C-Reactive Protein 15.5 H D, Total Protein 6.7 D, Albumin 3.1 L D, Globulin 3.6 H, Albumin/Globulin Ratio 0.9 L 09/05/24 06:10: POC Glucose 146 H I & O for Last 24 hours: Intake & Output 09/02/24 09/03/24 09/04/24 09/05/24 23:59 23:59 23:59 23:59 Intake Total 1140 / 1240 1940 / 1940 960 / 960 240 / 240 Output Total 3000 / 3200 3750 / 3750 2950 / 3550 600 / 600 Balance -1860 / -1960 -1810 / -1810 -1989 / -2590 -360 / -360 Weight 90.764 kg 86.727 kg 87.18 kg 85.502 kg Microbiology Reports for the Last 24 Hours: Microbiology 08/30/24 14:44 Blood Blood Culture - Final NO GROWTH AFTER 5 DAYS 08/30/24 14:39 Blood Blood Culture - Final NO GROWTH AFTER 5 DAYS 08/30/24 09:42 Sputum - Expectorated Sputum Gram Stain - Final Constitutional Constitutional: no acute distress *Routine HEENT Exam Head: Present normocephalic Eye: Present EOMI and PERRL ENT: Present mucous membranes moist *Routine Neck Exam Neck: Present supple; Absent lymphadenopathy *Routine Respiratory Exam Respiratory: Present CTA bilaterally *Routine Cardiovascular Exam Cardiovascular: Present RRR *Routine Abdominal Exam Abdominal: Present soft and normoactive bowel sounds; Absent tenderness *Routine Extremities Exam Extremities: Absent cyanosis, clubbing or edema *Routine Skin Exam Skin: Present warm; Absent rash *Routine Neurological Exam Neurological: Present alert and oriented X3 Assessment and Plan *Assessment and plan (1) Multifocal pneumonia: Status: Acute Category: Medical Code(s): J18.8 - Other pneumonia, unspecified organism (2) Pneumonia: Status: Acute Category: Medical Code(s): J18.9 - Pneumonia, unspecified organism (3) Dysphagia: Status: Acute Qualifiers: Dysphagia type: unspecified Qualified Code(s): R13.10 - Dysphagia, unspecified Category: Medical Code(s): R13.10 - Dysphagia, unspecified (4) CKD (chronic kidney disease): Status: Acute Category: Medical Code(s): N18.9 - Chronic kidney disease, unspecified (5) COPD (chronic obstructive pulmonary disease): Status: Acute Category: Medical Code(s): J44.9 - Chronic obstructive pulmonary disease, unspecified (6) HTN (hypertension): Status: Chronic Qualifiers: Hypertension type: essential hypertension Qualified Code(s): I10 - Essential (primary) hypertension Category: Medical Code(s): I10 - Essential (primary) hypertension (7) RAGHAV (acute kidney injury): Status: Acute Category: Medical Code(s): N17.9 - Acute kidney failure, unspecified Plan Jania Bartlett is a 64-year-old female with a medical history of COPD on 2 L baseline, greater than 30 pack smoking history, HFpEF, insulin-dependent diabetes, hypertension, anxiety/depression, who presents with 2-week onset of progressive shortness of breath and cough. Patient states that she is not able to cough up anything, but does endorse right-sided pleuritic chest pain and now generalized chest pain from coughing. Also endorses nonspecific generalized abdominal pains, denies fever/chills. States her lower extremity edema is at baseline. Workup in the ED significant for WBC 22.4, CRP 51.8, procalcitonin normal, CTA chest revealing right lower lobe pneumonia. Met sepsis criteria on admission due to tachycardia and tachypnea along with elevated white count and multifocal pneumonia. Showing improvement. On baseline 2 to 3 L oxygen. Slow to improve from respiratory bronchoconstriction standpoint. Continues to require patient management. #Acute on chronic hypoxic respiratory failure - improving #Community-acquired pneumonia #Sepsis - resolved # COPD exacerbation - improving ? CTA chest revealed right lower lobe pneumonia, CXR shows chronic interstitial changes. Procalcitonin normal. pulmonology recommends continuing cefepime - Speech evaluated, recommend mechanical soft -Initiate chest percussion therapy with Mucomyst and hypertonic saline twice daily. Goal sats greater 90%, currently on 2 to 3 L. -DuoNebs every 6 hours and Pulmicort twice daily - Blood cultures NGTD. MRSA PCR positive. Patient unable to cough sputum, thus bronchoscopy was performed with BAL cultures #HFpEF exacerbation #RAGHAV on CKD ? Continue IV Bumex 2 mg twice daily, diuresing well. ? ECHO 08/31/2024 shows a normal biventricular systolic function, increased LV wall thickness but normal diastolic function. - monitor Cr #Physical deconditioning ? PT/OT consulted, recommended SNF. - [facility] discharge [facility] to [facility] and rehab SNF when medically stable. #Insulin-dependent diabetes ? Hemoglobin A1c 8.7%. ? LDSSI, ACHS glucose checks. #Paroxysmal A-fib ? Continue home metoprolol 25 mg twice daily, Eliquis 5 mg twice daily. Currently rate controlled. ? Has had episodes of A-fib RVR with breathing treatments, switch to levalbuterol. ? IV Lopressor 5 mg as needed. #Hypertension ? Continue home Imdur 30 mg daily, hold home ARB due to RAGHAV. #Anxiety/depression ? Continue home BuSpar. Constipation/abdominal pain: ordered miralax and docusate DNR/DNI DVT prophylaxis: Home Eliquis DC planning. likely dc tomorrow
[2024-09-05] MEDS: humaLOG 100 UNITS/ML 10ML VIAL (SSI) SUBCUT ×3 (11:31→21:25)
--- NOTE | 2024-09-05 11:46 | XR_ITS ---
FINAL REPORT TECHNIQUE: Single view chest CLINICAL HISTORY: PNM COMPARISON: 09/04/2024 FINDINGS: A single view of the chest was obtained. The heart and mediastinum are within normal limits. There is peripheral infiltrate of the right midlung with further, mild improvement. There are chronic interstitial changes. There is no pneumothorax. IMPRESSION: Further mild improvement of right upper lobe pneumonia. Reviewed, Interpreted and Dictated by Marcia Luque MD Transcribed by Milagros López Authenticated and [facility]
[2024-09-05 12:03] LABS: POC Glucose,Bedside 281 (70-110)
[2024-09-05 16:26] LABS: ABG HCO3 30.5 mmhg (22.0-26.0); ABG PCO2 44.0 mmhg (35.0-45.0); ABG PH 7.46 mmol/L (7.35-7.45); ABG PO2 68.5 mmhg (80-100); ABG TCO2 31.8 mmhg (23-27)
[2024-09-05 16:27] LABS: Source Right Radial
[2024-09-05 16:42] LABS: POC Glucose,Bedside 184 (70-110)
--- NOTE | 2024-09-05 17:46 | PC.NURSE ---
PT IS RESTING IN BED. ALERT AND ORIENTED X4. PT HAS BEEN DROWSY T/O THE SHIFT. EATING AND DRINKING WELL. PT TOLERATED SITTING UP IN THE CHAIR FOR A FEW HOURS THIS SHIFT. PT REFUSED 1300 GABAPENTIN DUE TO BEING SO TIRED. LUNG SOUNDS DIMINISHED WITH SCATTERED RHONCHI/CRACKLES. ABDOMEN SOFT/NON TENDER WITH ACTIVE BOWEL SOUNDS. PURWICK IN PLACE. O2 SATURATION HAS MAINTAINED 90-95% ON 3 L NC. WILL CONTINUE TO MONITOR.
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
[2024-09-05] MEDS: FLUTICASONE/UMECLIDIN/VILANTER 100/62.5/25MCG INHALER 1 PUFF IH (18:19)
[2024-09-05] MEDS: ALBUTEROL 0.083% 2.5 MG/3 ML NEB IH (18:20)
[2024-09-05] MEDS: FAMOTIDINE 20MG TABLET 20 MG PO (21:21)
[2024-09-05] MEDS: INSULIN GLARGINE 100 UNITS/ML 3ML FLEXPEN 30 UNIT SUBCUT (21:25)
[2024-09-06] VITALS: PULSE 50
[2024-09-06 03:52] VITALS: BP 155/77; PULSE 62; RESP 18; TEMP 36.6; O2SAT 94; BMI 30.4
[2024-09-06 04:00] VITALS: PULSE 50
[2024-09-06 04:56] LABS: POC Glucose,Bedside 233 (70-110)
[2024-09-06] MEDS: FLUTICASONE/UMECLIDIN/VILANTER 100/62.5/25MCG INHALER 1 PUFF IH (06:03)
[2024-09-06] MEDS: ALBUTEROL 0.083% 2.5 MG/3 ML NEB IH (06:03)
[2024-09-06] MEDS: SODIUM CHLORIDE 3% 15ML NEB 3 ML IH (06:03)
[2024-09-06 06:07] VITALS: PULSE 63; O2SAT 94
[2024-09-06 06:28] LABS: POC Glucose,Bedside 75 (70-110)
[2024-09-06 06:35] LABS: Hematocrit 33.9 % (37.0-47.0); Hemoglobin 10.2 g/dL (12.2-16.2); Immature Granulocytes % 4.5 %; Mean Corpuscular HGB Conc 30.1 g/dL (31.8-35.4); Mean Corpuscular Hemoglobin 24.2 pg (27.0-31.2); Mean Corpuscular Volume 80.3 fl (81-99); Nucleated Red Blood Cells % 0 %; Platelet Count 424 K/mm3 (142-424); Red Blood Count 4.22 M/mm3 (4.20-5.40); Red Cell Distribution Width-SD 45.6 fL; White Blood Count 19.2 K/mm3 (4.8-10.8)
[2024-09-06 07:20] LABS: Alanine Aminotransferase 37 U/L (12-78); Albumin Level 3.3 g/dl (3.5-5.0); Albumin/Globulin Ratio 0.9 (1.1-1.8); Alkaline Phosphatase 179 U/L (38-126); Anion Gap 8.0 mEq/L (5-15); Aspartate Amino Transferase 56 U/L (14-36); Bilirubin,Total 0.7 mg/dl (0.2-1.3); Blood Urea Nitrogen 69 mg/dl (7-17); Calcium 9.4 mg/dl (8.4-10.2); Carbon Dioxide 35 mmol/L (22.0-30.0); Chloride 103 mmol/L (98-107); Creatinine Clearance Estimated 44 mL/min (50-200); Creatinine,Serum 1.70 mg/dl (0.52-1.04); Estimated Glomerular Filt Rate 30 ml/min (>60); GFR (African American) 37 ML/MIN (>60); Globulin 3.6 g/dL (1.3-3.2); Glucose 76 mg/dl (74-100); Magnesium 1.8 mg/dl (1.6-2.3); Potassium 4.0 mmoL/L (3.5-5.1); Sodium 142 mmol/L (136-145); Total Protein,Serum 6.9 g/dl (6.3-8.2)
[2024-09-06 07:26] LABS: C-Reactive Protein 8.8 mg/L (0-4)
--- NOTE | 2024-09-06 07:53 | PC.NURSE ---
Pt. is alert and orientated x 4. Pt. is on oxygen 2-3 liters per N/C. baseline is oxygen 2-3 liters. Pt. has COPD. Pt. has a strong congestive cough but is unable to bring any sputum up. Pt lungs with rhonci, wheezes and fine crackes to bases. pt. getting IV antibiotics, Neb treatments and physiotherapy vest treatments for lung improvements. Pt. has a purewick in place. Pt. up with assist x 1. Pt. tidred of being in hospital and wants to go back to [place]. Personal items and call lira in reach, Bed in low and locked position, safety measures in place.
[2024-09-06 08:00] VITALS: BP 143/72; PULSE 66; RESP 18; TEMP 36.7; O2SAT 91
[2024-09-06] MEDS: AZITHROMYCIN 250MG TABLET 500 MG PO (08:27)
[2024-09-06] MEDS: ISOSORBIDE MONO 30MG TAB.ER.24H 30 MG PO (08:27)
[2024-09-06] MEDS: BUSPIRONE HCL 10 MG TABLET PO (08:27)
[2024-09-06] MEDS: GABAPENTIN 100MG CAPSULE 200 MG PO ×2 (08:28→13:00)
[2024-09-06] MEDS: OXYCODONE 5MG IMMEDIATE RELEASE TABLET 5 MG PO (08:29)
[2024-09-06] MEDS: POLYETHYLENE GLYCOL 3350 17 GM PACKET PO (08:30)
[2024-09-06] MEDS: DOCUSATE SODIUM 100 MG CAPSULE PO (08:30)
[2024-09-06] MEDS: METOPROLOL TARTRATE 25MG TABLET 25 MG PO (08:31)
[2024-09-06] MEDS: BUMETANIDE 1MG/4ML VIAL 2 MG IV (08:31)
[2024-09-06] MEDS: BENZONATATE 100MG CAPSULE 200 MG PO ×2 (08:31→13:00)
[2024-09-06] MEDS: APIXABAN 5MG TABLET 5 MG PO (08:34)
--- NOTE | 2024-09-06 09:21 | XR_ITS ---
FINAL REPORT CLINICAL HISTORY: SOB. PNA COMPARISON: 09/05/2024 FINDINGS: CHEST 1 VIEW There is an ill-defined opacity in the periphery of the right upper lobe showing continued improvement compatible with improving pneumonia. Chronic lung changes are again noted. There is no pleural effusion. Mediastinum is unremarkable. Heart size is normal. IMPRESSION: Further improvement in right upper lobe pneumonia. Reviewed, Interpreted and Dictated by Marcia Luque MD Transcribed by Janet Barros Authenticated and [facility]
--- NOTE | 2024-09-06 09:46 | EXP.PULM.PN ---
Subjective *Date: 09/06/24 *Time: 12:32 Interval history: No acute respiratory events overnight. Patient denies any new respiratory complaints. Admits improving respiratory symptoms. Pulmonology Exam Inpatient Vital signs and Labs for Last 24 Hours: Temp Pulse Resp BP Pulse Ox O2 Del Method O2 Flow Rate 98.1 F 66 18 143/72 H 91 L Nasal Cannula 2 09/06/24 08:00 09/06/24 08:00 09/06/24 08:00 09/06/24 08:00 09/06/24 08:00 09/06/24 09:00 09/06/24 07:00 FiO2 28 09/02/24 19:06 Laboratory Results - last 24 hr 09/05/24 11:30: POC Glucose 281 H 09/05/24 16:06: Specimen Source Right radial, O2 % 3lnc, ABG pH 7.46 H, ABG pCO2 44.0, ABG pO2 68.5 L, ABG HCO3 30.5 H, ABG Total CO2 31.8 H, ABG O2 Saturation 94, ABG Base Excess 5.9 H, Vu Test Acceptable 09/05/24 16:34: POC Glucose 184 H 09/05/24 21:05: POC Glucose 233 H 09/06/24 06:16: WBC 19.2 H, RBC 4.22, Hgb 10.2 L, Hct 33.9 L, MCV 80.3 L, MCH 24.2 L, MCHC 30.1 L, RDW 15.9, Plt Count 424, MPV 9.4, Neut % (Auto) 57.3, Lymph % (Auto) 26.4, [place] % (Auto) 9.3, Eos % (Auto) 2.0, Baso % (Auto) 0.5, Neut # (Auto) 11.0 H, Lymph # (Auto) 5.1 H, [place] # (Auto) 1.8 H, Eos # (Auto) 0.4, Baso # (Auto) 0.1, ESR 75 H, Sodium 142, Potassium 4.0, Chloride 103, Carbon Dioxide 35 H, Anion Gap 8.0, BUN 69 H, Creatinine 1.70 H, Estimated Creat Clear 44, Estimated GFR 30 L, Est GFR ( Amer) 37 L, Glucose 76, POC Glucose 75, Calcium 9.4, Magnesium 1.8 D, Total Bilirubin 0.7, AST 56 H, ALT 37, Alkaline Phosphatase 179 H, C-Reactive Protein 8.8 H D, Total Protein 6.9, Albumin 3.3 L, Globulin 3.6 H, Albumin/Globulin Ratio 0.9 L Temp Pulse Resp BP Pulse Ox O2 Del Method O2 Flow Rate 97.4 F L 69 24 124/58 L 96 Nasal Cannula 4 08/31/24 08:00 08/31/24 08:00 08/31/24 08:00 08/31/24 08:00 08/31/24 08:53 08/31/24 09:00 08/31/24 09:00 Laboratory Results - last 24 hr 08/30/24 13:57: WBC 22.4 H*, RBC 4.34, Hgb 11.0 L, Hct 36.6 L, MCV 84.3, MCH 25.3 L, MCHC 30.1 L, RDW 15.9, Plt Count 335, MPV 9.7, Neut % (Auto) 78.0, Lymph % (Auto) 12.4, [place] % (Auto) 8.4, Eos % (Auto) 0.2, Baso % (Auto) 0.4, Neut # (Auto) 17.4 H, Lymph # (Auto) 2.8, [place] # (Auto) 1.9 H, Eos # (Auto) 0.0, Baso # (Auto) 0.1, Total Counted 100, Neutrophils % (Manual) 79 H, Lymphocytes % (Manual) 11, Atypical Lymphs % 1.0, Monocytes % (Manual) 9, Platelet Estimate Normal, Microcytosis 1+, Sodium 140, Potassium 4.4, Chloride 103, Carbon Dioxide 31 H, Anion Gap 10.4, BUN 39 H, Creatinine 1.40 H, Estimated Creat Clear 50, Estimated GFR 38 L, Est GFR ( Amer) 46 L, Glucose 74, Calcium 9.4, Magnesium 1.5 L, Total Bilirubin 0.7, AST 30, ALT 18, Alkaline Phosphatase 203 H, Troponin I 0.02, C-Reactive Protein 51.8 H, NT-Pro-B Natriuret Pep 3560 H, Total Protein 8.1, Albumin 3.7, Globulin 4.4 H, Albumin/Globulin Ratio 0.8 L, Procalcitonin 0.183, Chlamy pneumoniae PCR Not detected, Adenovirus (PCR) Not detected, B. pertussis DNA (PCR) Not detected, Coronavirus OC43 (PCR) Not detected, Coronavirus HKU1 (PCR) Not detected, Coronavirus 229E (PCR) Not detected, SARS-CoV-2 (PCR) Not detected, Coronavirus NL63 (PCR) Not detected, Human Metapneumovir PCR Not detected, Influenza A (H1) PCR Not detected, Influ A (H1N1/09) PCR Not detected, Influenza A (H3) PCR Not detected, Influenza Type A (PCR) Not detected, Influenza Type B (PCR) Not detected, M. pneumoniae (PCR) Not detected, Parainfluenza 1 (PCR) Not detected, Parainfluenza 2 (PCR) Not detected, Parainfluenza 3 (PCR) Not detected, Parainfluenza 4 (PCR) Not detected, RSV (PCR) Not detected, Entero/Rhino (PCR) Not detected 08/30/24 14:17: VBG pH 7.36, VBG pCO2 50.2, VBG pO2 42.8 H, VBG HCO3 27.5, VBG Total CO2 29.1 H, VBG O2 Saturation 79.4 H, VBG Base Excess 2.0, VBG Lactic Acid 1.1 08/30/24 17:17: Troponin I 0.02 08/30/24 20:14: POC Glucose 113 H 08/30/24 20:52: Troponin I 0.02 08/31/24 02:43: Urine Color Yellow, Urine Appearance Slightly cloudy, Urine pH 6.0, Ur Specific [place] 1.025, Urine Protein 3+ A, Urine Glucose (UA) 1+, Urine Ketones Negative, Urine Blood 2+ A, Urine Nitrate Negative, Urine Bilirubin Negative, Urine Urobilinogen 0.2, Ur Leukocyte Esterase Negative, Urine RBC 5-10, Urine WBC 3-5, Ur Squamous Epith Cells 3-5, Amorphous Sediment 2+, Urine Bacteria 3+, Urine Mucus 1+, MRSA (PCR) Positive A 08/31/24 04:56: WBC 25.2 H*, RBC 3.55 L, Hgb 8.9 L D, Hct 30.0 L, MCV 84.5, MCH 25.1 L, MCHC 29.7 L, RDW 15.7, Plt Count 281, MPV 10.0, Neut % (Auto) 86.5 H, Lymph % (Auto) 5.4 L, Hind[place] % (Auto) 6.6, Eos % (Auto) 0.0 L, Baso % (Auto) 0.2, Neut # (Auto) 21.7 H, Lymph # (Auto) 1.4, [place] # (Auto) 1.7 H, Eos # (Auto) 0.0, Baso # (Auto) 0.1, Total Counted 100, Neutrophils % (Manual) 88 H, Band Neutrophils % 4, Lymphocytes % (Manual) 5 L, Atypical Lymphs % Not Reportable, Monocytes % (Manual) 2, Platelet Estimate Not Reportable, RBC Morphology Not Reportable, ESR 111 H, Sodium 139, Potassium 4.2, Chloride 104, Carbon Dioxide 25, Anion Gap 14.2, BUN 41 H, Creatinine 1.80 H D, Estimated Creat Clear 39, Estimated GFR 28 L, Est GFR ( Amer) 34 L D, Glucose 274 H D, Hemoglobin A1c 8.7 H, Lactate 1.5, Calcium 8.7, Magnesium 2.0 D, Total Bilirubin 0.4, AST 23, ALT 15, Alkaline Phosphatase 135 H, Lactate Dehydrogenase 151 L, C-Reactive Protein 104.4 H, Total Protein 6.3, Albumin 2.9 L D, Globulin 3.4 H, Albumin/Globulin Ratio 0.9 L, Procalcitonin 1.14 08/31/24 06:21: POC Glucose 268 H I & O for Labs for Last 24 Hours: Intake & Output 09/03/24 09/04/24 09/05/24 09/06/24 23:59 23:59 23:59 23:59 Intake Total 1940 / 1940 960 / 960 960 / 1060 460 / 460 Output Total 3750 / 3750 2950 / 3550 2650 / 2650 600 / 600 Balance -1810 / -1810 -1989 / -2590 -1690 / -1590 -140 / -140 Weight 191 lb 3.2 oz 192 lb 3.2 oz 188 lb 8 oz 182 lb 14.4 oz Intake & Output 08/28/24 08/29/24 08/30/24 08/31/24 23:59 23:59 23:59 23:59 Intake Total 854 / 854 Output Total 820 / 820 Balance 34 / 34 Weight 170 lb 188 lb Microbiology Reports for the Last 24 Hours: Microbiology 09/03/24 13:00 Bronchial Washings - Right Lower Lobe - Final 09/03/24 13:00 Bronchial Washings - Right Lower Lobe Acid Fast Bacilli Smear - Final 09/03/24 13:00 Bronchial Washings - Right Lower Lobe Gram Stain - Final 09/03/24 13:00 Bronchial Washings - Right Lower Lobe Bronchoalveolar Lavage Culture - Final No growth. 08/30/24 09:42 Sputum - Expectorated Sputum Gram Stain - Final 08/30/24 09:42 Sputum - Expectorated Sputum Sputum Culture - Preliminary Constitutional: Present moderate distress Head: Present normocephalic and atraumatic ENT: Present normal exam, normal oropharynx and mucous membranes moist Neck: Present normal inspection and full ROM Respiratory: Present prolonged expiratory phase, respiratory distress, rhonchi, wheezes and able to speak in complete sentences Cardiac: Present S1/S2, Tachycardia and radial pulses present GI: Present soft and distention; Absent tenderness or guarding Rectal (female): Present deferred (female): Present deferred Skin: Present intact; Absent cyanosis or jaundice Neuro: Present alert, awake and oriented x 3 Extremities: Present normal inspection and edema; Absent clubbing or cyanosis Psychiatric: Present normal affect and cooperative Assessment and Plan *Assessment and plan (1) Multifocal pneumonia: Status: Acute Category: Medical Code(s): J18.8 - Other pneumonia, unspecified organism (2) Acute and chronic respiratory failure with hypoxia: Status: Acute Category: Medical Code(s): J96.21 - Acute and chronic respiratory failure with hypoxia Plan Ms. 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 Admit progressively worsening respiratory distress with cough and productive phlegm. Stopped smoking, has not smoked in the last 4 weeks. Status post completion of 5 days of levofloxacin from 08/03/2024 with worsening infiltrates. Afebrile. Hemodynamically stable. Neutrophilic predominant leukocytosis. Comprehensive respiratory viral PCR panel negative. Nasal MRSA PCR positive for CTA PE protocol upon admission no evidence of pulmonary embolism. Predominant right sided airspace disease, worsened from her most recent CT scan from July 2024 during which she completed 5-day course of levofloxacin.Continue to show previous noted fibrotic changes, also worsening. Currently receiving vancomycin and cefepime nebulization therapies and steroids CRP elevated on admission at 124.4 On initial examination examination moderate respiratory distress. Significant wheezing noted on auscultation. Admits improving symptoms. Echocardiogram normal systolic and diastolic function. Status post bronchoscopy bronchoalveolar lavage status post bronchoscopy bronchoalveolar lavage. Interval update: No acute respiratory vents overnight. Completed 7-day course of cefepime. Sputum cultures not finalized. Chest x-ray from yesterday continue to show pulmonary infiltrates minimal improvement. Slight worsening leukocytosis this morning. Chest x-ray and oxygen requirements improving Afebrile. Hemodynamically stable Plan: Trelegy 100 inhaler along with DuoNebs 4 times daily as needed Chest percussion therapy albuterol neb, Mucomyst and hypertonic saline twice daily. Can be discharged home on flutter valve 3 times daily Follow-up with speech and swallow recommendations. Aspiration precautions Continue oxygen supplementation to maintain O2 saturation goal of 90% and above. # Thank you for involving pulmonary in this patient care. Will follow the patient in pulmonary clinic 5 to 7 days postdischarge
[2024-09-06 10:02] LABS: Total Cells Counted 100
[2024-09-06 10:05] LABS: Hypochromasia 1+
[2024-09-06 10:07] LABS: C-Reactive Protein 8.9 mg/L (0-4)
[2024-09-06 10:18] LABS: Procalcitonin 0.316 ng/mL (0.0-2.0)
--- NOTE | 2024-09-06 11:22 | P.PN_ITS ---
Subjective *Date: 09/06/24 *Time: 11:22 Interval history: patient is seen at bedside, denied Chest pain, SOB, Nausea, vomiting. no complains today, she is on 3L NC Exam Data for Last 24 hours Vital signs and Labs for Last 24 Hours: Temp Pulse Resp BP Pulse Ox O2 Del Method O2 Flow Rate 98.1 F 66 18 143/72 H 91 L Nasal Cannula 3 09/06/24 08:00 09/06/24 08:00 09/06/24 08:00 09/06/24 08:00 09/06/24 08:00 09/06/24 11:00 09/06/24 08:00 FiO2 28 09/02/24 19:06 Laboratory Results - last 24 hr 09/05/24 11:30: POC Glucose 281 H 09/05/24 16:06: Specimen Source Right radial, O2 % 3lnc, ABG pH 7.46 H, ABG pCO2 44.0, ABG pO2 68.5 L, ABG HCO3 30.5 H, ABG Total CO2 31.8 H, ABG O2 Saturation 94, ABG Base Excess 5.9 H, Vu Test Acceptable 09/05/24 16:34: POC Glucose 184 H 09/05/24 21:05: POC Glucose 233 H 09/06/24 06:16: WBC 19.2 H, RBC 4.22, Hgb 10.2 L, Hct 33.9 L, MCV 80.3 L, MCH 24.2 L, MCHC 30.1 L, RDW 15.9, Plt Count 424, MPV 9.4, Neut % (Auto) 57.3, Lymph % (Auto) 26.4, [place] % (Auto) 9.3, Eos % (Auto) 2.0, Baso % (Auto) 0.5, Neut # (Auto) 11.0 H, Lymph # (Auto) 5.1 H, [place] # (Auto) 1.8 H, Eos # (Auto) 0.4, Baso # (Auto) 0.1, Total Counted 100, Neutrophils % (Manual) 68, Lymphocytes % (Manual) 25, Monocytes % (Manual) 4, Eosinophils % (Manual) 3, Platelet Estimate Normal, RBC Morphology Not Reportable, Hypochromasia 1+, ESR 75 H, Sodium 142, Potassium 4.0, Chloride 103, Carbon Dioxide 35 H, Anion Gap 8.0, BUN 69 H, Creatinine 1.70 H, Estimated Creat Clear 44, Estimated GFR 30 L, Est GFR ( Amer) 37 L, Glucose 76, POC Glucose 75, Calcium 9.4, Magnesium 1.8 D, Total Bilirubin 0.7, AST 56 H, ALT 37, Alkaline Phosphatase 179 H, C-Reactive Protein 8.8 H D 09/06/24 06:16: C-Reactive Protein 8.9 H, Total Protein 6.9, Albumin 3.3 L, Globulin 3.6 H, Albumin/Globulin Ratio 0.9 L, Procalcitonin 0.316 I & O for Last 24 hours: Intake & Output 09/03/24 09/04/24 09/05/24 09/06/24 23:59 23:59 23:59 23:59 Intake Total 1940 / 1940 960 / 960 960 / 1060 460 / 460 Output Total 3750 / 3750 2950 / 3550 2650 / 2650 600 / 600 Balance -1810 / -1810 -1990 / -2590 -1690 / -1590 -140 / -140 Weight 86.727 kg 87.18 kg 85.502 kg 82.962 kg Microbiology Reports for the Last 24 Hours: Microbiology 09/03/24 13:00 Bronchial Washings - Right Lower Lobe - Final 09/03/24 13:00 Bronchial Washings - Right Lower Lobe Acid Fast Bacilli Smear - Final 09/03/24 13:00 Bronchial Washings - Right Lower Lobe Gram Stain - Final 09/03/24 13:00 Bronchial Washings - Right Lower Lobe Bronchoalveolar Lavage Culture - Final No growth. 08/30/24 09:42 Sputum - Expectorated Sputum Gram Stain - Final 08/30/24 09:42 Sputum - Expectorated Sputum Sputum Culture - Preliminary Constitutional Constitutional: no acute distress *Routine HEENT Exam Head: Present normocephalic Eye: Present EOMI and PERRL ENT: Present mucous membranes moist *Routine Neck Exam Neck: Present supple; Absent lymphadenopathy *Routine Respiratory Exam Respiratory: Present CTA bilaterally *Routine Cardiovascular Exam Cardiovascular: Present RRR *Routine Abdominal Exam Abdominal: Present soft and normoactive bowel sounds; Absent tenderness *Routine Extremities Exam Extremities: Absent cyanosis, clubbing or edema *Routine Skin Exam Skin: Present warm; Absent rash *Routine Neurological Exam Neurological: Present alert and oriented X3 Assessment and Plan *Assessment and plan (1) Multifocal pneumonia: Status: Acute Category: Medical Code(s): J18.8 - Other pneumonia, unspecified organism (2) Pneumonia: Status: Acute Category: Medical Code(s): J18.9 - Pneumonia, unspecified organism (3) Dysphagia: Status: Acute Qualifiers: Dysphagia type: unspecified Qualified Code(s): R13.10 - Dysphagia, unspecified Category: Medical Code(s): R13.10 - Dysphagia, unspecified (4) CKD (chronic kidney disease): Status: Acute Category: Medical Code(s): N18.9 - Chronic kidney disease, unspecified (5) COPD (chronic obstructive pulmonary disease): Status: Acute Category: Medical Code(s): J44.9 - Chronic obstructive pulmonary disease, unspecified (6) HTN (hypertension): Status: Chronic Qualifiers: Hypertension type: essential hypertension Qualified Code(s): I10 - Essential (primary) hypertension Category: Medical Code(s): I10 - Essential (primary) hypertension (7) RAGHAV (acute kidney injury): Status: Acute Category: Medical Code(s): N17.9 - Acute kidney failure, unspecified Plan Jania Bartlett is a 64-year-old female with a medical history of COPD on 2 L baseline, greater than 30 pack smoking history, HFpEF, insulin-dependent diabetes, hypertension, anxiety/depression, who presents with 2-week onset of progressive shortness of breath and cough. #Acute on chronic hypoxic respiratory failure - improving #Community-acquired pneumonia #Sepsis - resolved # COPD exacerbation - improving Leukocytosis - worsening off of steroids repeat CXR per pulmonary discussed with pulmonary continue ? CTA chest revealed right lower lobe pneumonia, CXR shows chronic interstitial changes. Procalcitonin normal. completed course of Abx - Speech evaluated, recommend mechanical soft -Initiate chest percussion therapy with Mucomyst and hypertonic saline twice daily. Goal sats greater 90%, currently on 2 to 3 L. -DuoNebs every 6 hours and Pulmicort twice daily - Blood cultures NGTD. MRSA PCR positive. Patient unable to cough sputum, thus bronchoscopy was performed with BAL cultures - NGTD #HFpEF exacerbation #RAGHAV on CKD ? Continue IV Bumex 2 mg twice daily, diuresing well. ? ECHO 08/31/2024 shows a normal biventricular systolic function, increased LV wall thickness but normal diastolic function. - monitor Cr #Physical deconditioning ? PT/OT consulted, recommended SNF. - [facility] and rehab SNF when medically stable. #Insulin-dependent diabetes ? Hemoglobin A1c 8.7%. ? LDSSI, ACHS glucose checks. #Paroxysmal A-fib ? Continue home metoprolol 25 mg twice daily, Eliquis 5 mg twice daily. Currently rate controlled. ? Has had episodes of A-fib RVR with breathing treatments, switch to levalbuterol. ? IV Lopressor 5 mg as needed. #Hypertension ? Continue home Imdur 30 mg daily, hold home ARB due to RAGHAV. #Anxiety/depression ? Continue home BuSpar. Constipation/abdominal pain: ordered miralax and docusate DNR/DNI DVT prophylaxis: Home Eliquis DC planning. likely dc tomorrow, monitor WBC count
[2024-09-06] MEDS: humaLOG 100 UNITS/ML 10ML VIAL (SSI) SUBCUT (11:35)
[2024-09-06 11:52] LABS: POC Glucose,Bedside 172 (70-110)
[2024-09-06 12:00] VITALS: BP 132/69; PULSE 66; PULSE 68; RESP 16; TEMP 36.7; O2SAT 91
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
[2024-09-11 15:11] LABS: Clinical Relevance Notes (.); Fungitell Value 38.847 pg/mL (.); Interpretation Notes (.)
== END 2024-09-06 16:43 | DRG 871 ==
LOC: ER 15:13 → ICU 08-31 05:25 → 2ND 08-31 16:45
PROVIDERS: Internal Medicine; Internal Medicine Pulmonary Disease; Nurse Practitioner Family; Student in an Organized Health Care Education/Training Program; Admitting Provider Student in an Organized Health Care Education/Training Program; Emergency Provider Emergency Medicine; Visit Provider Student in an Organized Health Care Education/Training Program
PROC: 0B9F8ZX Drainage of Right Lower Lung Lobe, Via Natural or Artificial Opening Endoscopic, Diagnostic (ICD-10-PCS; principal; 2024-09-03 12:00)
DX: A41.9 Sepsis, unspecified organism (principal); I50.33 Acute on chronic diastolic (congestive) heart failure; J18.9 Pneumonia, unspecified organism; J96.21 Acute and chronic respiratory failure with hypoxia; I13.0 Hypertensive heart and chronic kidney disease with heart failure and stage 1 through stage 4 chronic kidney disease, or unspecified chronic kidney disease; J44.0 Chronic obstructive pulmonary disease with (acute) lower respiratory infection; J44.1 Chronic obstructive pulmonary disease with (acute) exacerbation; N17.9 Acute kidney failure, unspecified; J84.82 Adult pulmonary Langerhans cell histiocytosis; F32.A Depression, unspecified; D72.829 Elevated white blood cell count, unspecified; T38.0X5A Adverse effect of glucocorticoids and synthetic analogues, initial encounter; N18.9 Chronic kidney disease, unspecified; R53.81 Other malaise; E11.22 Type 2 diabetes mellitus with diabetic chronic kidney disease; I48.0 Paroxysmal atrial fibrillation; Z66 Do not resuscitate; F34.1 Dysthymic disorder; F41.1 Generalized anxiety disorder; R13.10 Dysphagia, unspecified; E66.9 Obesity, unspecified; E78.5 Hyperlipidemia, unspecified; K59.00 Constipation, unspecified; Z87.891 Personal history of nicotine dependence; Z79.01 Long term (current) use of anticoagulants; Z79.4 Long term (current) use of insulin; Z79.899 Other long term (current) drug therapy; Z88.6 Allergy status to analgesic agent; Z88.1 Allergy status to other antibiotic agents; Z88.5 Allergy status to narcotic agent; Z88.2 Allergy status to sulfonamides; Z88.8 Allergy status to other drugs, medicaments and biological substances; Z68.30 Body mass index [BMI] 30.0-30.9, adult
CPT/HCPCS: 36415; 51702; 51798; 71045; 71275; 74176; 74230; 80053; 80202; 81001; 82105; 82378; 82607; 82728; 82746; 82803; 82962; 83036; 83540; 83550; 83605; 83615; 83690; 83735; 83880; 84145; 84484; 85007; 85025; 85651; 86140; 86301; 87040; 87070; 87086; 87101; 87116; 87186; 87205; 87449; 87633; 87641; 88112; 88305; 89051; 92610; 92611; 93005; 93306; 94640; 94667; 94668; 94761; 97162; 97530; J0131; J0456; J0692; J0696; J1100; J1650; J1939; J2003; J2405; J2704; J2919; J3010; J3375; J3475; J7040; J7050; J7120; J7614; Q9967

== ENCOUNTER 2024-10-12 10:04 | Outpatient (CLI) | payer MEDICARE, MEDICAID, SELFPAY ==
--- OUTSIDE RECORDS SUMMARY | 2024-09-24 14:24 | XMS_ITS | Encounter Summary ---
Author Organization Healthcare Address [address] [place] [address] Care Team Providers Care Interactive Developer Name Role Phone Joshua Urban MD Primary Care Provider [phone] Encounter Details Date Type Department Care Team (Latest Contact Info) Description 09/24/2024 2:24 PM EDT - 09/24/2024 11:59 PM EDT Hospital Encounter [facility] [address], [address] [place] [address] Closed fracture of hip, unspecified [...] time in the past 12 m [facility], were you homeless or living in [...] drink first t michelet in the morning (EYE-CORE FINISHER) to steady your nerves or to get [...] documented as of this encounter Care Teams Interactive Developer Relationship Specialty Start Date End Date Joshua Urban MD [address] [place] [address] PCP - General 06/27/20 documented as of this encounter
--- OUTSIDE RECORDS SUMMARY | 2024-09-24 14:30 | XMS_ITS | Encounter Summary ---
Author Organization Healthcare Address [address] [place] [address] Care Team Providers Care Advertising Clerk Name Role Phone Joshua Urban MD Primary Care Provider [phone] Reason for Visit * Reason Comments Follow-up Encounter Details Date Type Department Care Team (Latest Contact Info) Description 09/24/2024 2:30 PM EDT Office Visit [facility] Orthopaedic Surgery & Sports Medicine [address] [place] [address] Cornelio Burns MD [address] [place] [address] Closed displaced intertrochanteric fracture of [...] any time in the past 12 m [facility], were you homeless or [...] drink first t michelet in the morning (EYE-HIGH SCHOOL FOOTBALL COACH) to steady your nerves or to get rid of a hangover? 0 09/26/2022 CAGE Questionnaire Score 0 023 Utilities Answer Date Recorded In the past 12 months has [employer], gas, oil, or water [employer] threatened to shut off services in your [...] documented as of this encounter Care Teams Advertising Clerk Relationship Specialty Start Date End Date Joshua Urban MD [address] [place] [address] PCP - General 06/27/20 documented as of this encounter
--- NOTE | 2024-10-12 10:00 | PC.NURSE ---
Patient is unable to do 6MWT
--- NOTE | 2024-10-12 10:06 | XR_ITS ---
FINAL REPORT TECHNIQUE: Chest PA & Lateral CLINICAL HISTORY: SOB/PNM COMPARISON: 06/15/2023 FINDINGS: 2 views of the chest were performed. In the interval since the prior exam a loop recorder has been placed. The heart size is normal. The mediastinum is within normal limits. There are moderate coarse interstitial changes in the lung bases. There is scattered peripheral bilateral upper lobe scar. There are no pleural effusions. There is no pneumothorax. The bony thorax appears intact. IMPRESSION: Stable exam with chronic changes as described. Reviewed, Interpreted and Dictated by Matthias Courtney MD Transcribed by Izabela Mendez Authenticated and [facility]
--- OUTSIDE RECORDS SUMMARY | 2024-10-12 10:08 | XMS_ITS | Encounter Summary ---
Author Organization Healthcare Address [address] [place] [address] Care Team Providers Care Spring Internship Name Role Phone Joshua Urban MD Primary Care Provider [phone] Tri Singletary FITNESS AND WELLNESS MANAGER Unavailable Unavailable Encounter Details Date Type Department Care Team ([facility] st Contact Info) Description 01/15/2018 Orders Only External Location [address] [place] [address] Provider, External Social History Tobacco Use Types [...] documented as of this encounter Care Teams Spring Internship Relationship Specialty Start Date End Date Joshua Urban MD [address] [place], [place] [id number] PCP - General 06/27/20 Tri Singletary, [place] [address] Combo Welder Medical Sales Associate 10/19/17 05/05/24 documented as of this encounter
--- OUTSIDE RECORDS SUMMARY | 2024-10-12 10:08 | XMS_ITS ---
Author Organization [facility] Address [address] [id number] Care Team Providers Care Director Of Retail Operations Name Role Phone Joshua Urban MD Primary Care Provider [phone] Hepatitis C Program Status:Closed (Closed) Start date:10/19/2017 Enrollment date:10/19/2017 Enrollment reason:HCV End date:08/24/2024 Close reason:HCV RNA Negative Overview Pt saw [facility] for HCV. HCV RNA [place] 09/25/22. Continued Care and Services Coordination
--- OUTSIDE RECORDS SUMMARY | 2024-10-12 10:08 | XMS_ITS | Encounter Summary ---
Author Organization Healthcare Address [address] [place] [address] Care Team Providers Care Singe Winder Name Role Phone Joshua Urban MD Primary Care Provider [phone] Tri Singletary WOMEN'S HEALTH CARE NURSE PRACTITIONER Unavailable Unavailable Encounter Details Date Type Department Care Team ([facility] st Contact Info) Description 06/12/2016 Orders Only External Location [address] [place] [address] Provider, External Social History Tobacco Use Types [...] documented as of this encounter Care Teams Singe Winder Relationship Specialty Start Date End Date Joshua Urban MD [address] [place], [place] [id number] PCP - General 06/27/20 Tri Singletary, WOMEN'S HEALTH [place] [address] Reach Lift Truck Driver Tugboat Operator 10/19/17 05/05/24 documented as of this encounter
--- OUTSIDE RECORDS SUMMARY | 2024-10-12 10:08 | XMS_ITS | Encounter Summary ---
Author Organization Healthcare Address [address] [place] [address] Care Team Providers Care Delivery Stock Clerk Name Role Phone Joshua Urban MD Primary Care Provider [phone] Encounter Details Date Type Department Care Team (Late st Contact Info) Description 05/23/2024 Orders Only External Location [address] [place] [address] Provider, External Social History Tobacco Use Types [...] drink first t michelet in the morning (EYE-PHARMACY TECHNOLOGY INSTRUCTOR) to steady your nerves or to get [...] documented as of this encounter Care Teams Delivery Stock Clerk Relationship Specialty Start Date End Date Joshua Urban MD [address] [place] [address] PCP - General 06/27/20 documented as of this encounter
--- OUTSIDE RECORDS SUMMARY | 2024-10-12 10:08 | XMS_ITS | Encounter Summary ---
Author Organization Healthcare Address [address] [place] [address] Care Team Providers Care Stick Puller Name Role Phone Joshua Urban MD Primary Care Provider [phone] Tri Singletary LICENSED LOAN OFFICER Unavailable Unavailable Encounter Details Date Type Department Care Team (Late st Contact Info) Description 01/03/2018 [facility] OTTR Encounter Historical OTTR [address] [place] [address] Larissa Pineda RN HOSP. SPECIAL DIAGNOSTIC FACILITIES [...] need a new referral from her primary certified public accountant. Pt verbalized understanding. * Progress Notes - [...] or pulmonoligist- I did transfer pt to [facility] for follow up * Progress Notes - [...] questionnaires and map for ICE on 12/15 0045 [id number] [phone] [id number] * Progress Notes - Wen Stiles [...] and map , and refer. MD letter [phone] * Progress Notes - Wen Stiles [...] LAB RESULTS (MANUAL) (07/12/2018 9:39 AM EDT) External Estimated GFR 41.88 EXTERNAL LAB 07/12/2018 9:39 AM EDT Narrative EXTERNAL LAB - 07/13/2018 11:20 PM EDT Automated LAB Interface Historical Provider LAB BLOOD ORDERABLES Final R esult EXTERNAL LAB * OTTR LAB RESULTS (MANUAL) (05/30/2018 3:36 PM EDT) External Estimated GFR 50.67 EXTERNAL LAB 05/30/2018 3:36 PM EDT Narrative EXTERNAL LAB - 06/01/2018 2:30 PM EDT Automated LAB Interface Historical Provider LAB BLOOD ORDERABLES Final R esult EXTERNAL LAB * OTTR LAB RESULTS (MANUAL) (01/17/2018 1:49 PM EST) External Estimated GFR 53.29 EXTERNAL LAB 01/17/2018 1:49 PM EST Narrative EXTERNAL LAB - 01/17/2018 2:55 PM EST Automated LAB Interface Historical Provider LAB BLOOD ORDERABLES Final R esult Performing Organization Address [facility] Co de Phone Number EXTERNAL LAB * OTTR LAB RESULTS (MANUAL) (12/15/2017 11:47 AM EDT) Pathologist [facility] External FEV1/FVC (Pre) % 1.92 L EXTERNAL [...] 01/02/2018 4:31 PM EST HealthCare Historical Provider LAB BLOOD ORDERABLES Final R esult EXTERNAL LAB * OTTR LAB RESULTS (MANUAL) (12/15/2017 11:23 AM EDT) External Estimated GFR 46.10 EXTERNAL LAB 12/15/2017 11:2 3 AM EDT Narrative EXTERNAL LAB - 12/15/2017 12:55 PM EDT Automated LAB Interface us Historical Provider LAB BLOOD ORDERABLES Final R esult EXTERNAL LAB * OTTR LAB RESULTS (MANUAL) (11/10/2017 9:49 AM EDT) External Estimated GFR 41.54 EXTERNAL LAB 11/10/2017 9:49 AM EDT Narrative EXTERNAL LAB - 11/17/2017 8:46 AM EDT Automated LAB Interface us Historical Provider LAB BLOOD ORDERABLES Final R esult EXTERNAL LAB documented in this encounter Visit Diagnoses Not on filedocumented in this encounter Additional Health Concerns Infection Onset Date Last Indicated Resolved Time Gastrointestinal Rule-Out 12/02/2019 12/02/2019 5:23 AM EDT documented as of this encounter Care Teams Stick Puller Relationship Specialty Start Date End Date Joshua Urban MD [address] [place] [address] PCP - General 06/27/20 Tri Singletary, [place] [address] Health Service Worker Structurer 10/19/17 05/05/24 documented as of this encounter
--- OUTSIDE RECORDS SUMMARY | 2024-10-12 10:08 | XMS_ITS | Encounter Summary ---
Author Organization Healthcare Address [address] [place] [address] Care Team Providers Care Kiln Hand Name Role Phone Joshua Urban MD Primary Care Provider [phone] Tri Singletary CARE PROFESSIONAL Unavailable Unavailable Encounter Details Date Type Department Care Team ([facility] st Contact Info) Description 12/16/2017 Orders Only External Location [address] [place] [address] Provider, External Social History Tobacco Use Types [...] documented as of this encounter Care Teams Kiln Hand Relationship Specialty Start Date End Date Joshua Urban MD [address] [place] [address] PCP - General 06/27/20 Tri Singletary, [place] [address] Wine Merchant Spinning Lathe Operator Hydraulic 10/19/17 05/05/24 documented as of this encounter
--- OUTSIDE RECORDS SUMMARY | 2024-10-12 10:08 | XMS_ITS | Encounter Summary ---
Author Organization Healthcare Address [address] [place] [address] Care Team Providers Care Reserves Clerk Name Role Phone Joshua Urban MD Primary Care Provider [phone] Tri Singletary BLINDSTITCH LAPEL PADDER Unavailable Unavailable Encounter Details Date Type Department Care Team ([facility] st Contact Info) Description 12/16/2017 Orders Only External Location [address] [place] [address] Provider, External Social History Tobacco Use Types [...] documented as of this encounter Care Teams Reserves Clerk Relationship Specialty Start Date End Date Joshua Urban MD [address] [place], [place] [id number] PCP - General 06/27/20 Tri Singletary, [place] [address] Fiber Designer Detention Officer 10/19/17 05/05/24 documented as of this encounter
--- OUTSIDE RECORDS SUMMARY | 2024-10-12 10:09 | XMS_ITS | Encounter Summary ---
Author Organization Healthcare Address [address] [place] [address] Care Team Providers Care Vacuum Tank Tender Name Role Phone Joshua Urban MD Primary Care Provider [phone] Tri Singletary SOLAR SYSTEM DESIGNER Unavailable Unavailable Encounter Details Date Type Department Care Team ([facility] st Contact Info) Description 09/05/2017 Orders Only External Location [address] [place] [address] Provider, External Social History Tobacco Use Types [...] documented as of this encounter Care Teams Vacuum Tank Tender Relationship Specialty Start Date End Date Joshua Urban MD [address] [place] [address] PCP - General 06/27/20 Tri Singletary, [place] [address] Cashier Wrapper Curator Of Photography And Prints 10/19/17 05/05/24 documented as of this encounter
--- OUTSIDE RECORDS SUMMARY | 2024-10-12 10:09 | XMS_ITS | Encounter Summary ---
Author Organization Healthcare Address [address] [place] [address] Care Team Providers Care Steam Cleaning Machine Operator Name Role Phone Joshua Urban MD Primary Care Provider [phone] Encounter Details Date Type Department Care Team (Late st Contact Info) Description 08/24/2024 Patient Outreach [facility] [address] [place] [address] Nadine Al Social History Tobacco [...] drink first t michelet in the morning (EYE-DESIGN TEACHER) to steady your nerves or to get [...] documented as of this encounter Care Teams Steam Cleaning Machine Operator Relationship Specialty Start Date End Date Joshua Urban MD [address] [place] [address] PCP - General 06/27/20 documented as of this encounter
--- OUTSIDE RECORDS SUMMARY | 2024-10-12 10:09 | XMS_ITS | Encounter Summary ---
Author Organization Healthcare Address [address] [place] [address] Care Team Providers Care Director Trading Name Role Phone Joshua Urban MD Primary Care Provider [phone] Tri Singletary JUNIOR PROJECT MANAGER Unavailable Unavailable Encounter Details Date Type Department Care Team ([facility] st Contact Info) Description 12/01/2019 Orders Only External Location [address] [place] [address] Provider, External Social History Tobacco Use Types [...] as of this encounter Care Teams Director Trading Relationship Specialty Start Date End Date Joshua Urban MD [address] [place] [address] PCP - General 06/27/20 Tri Singletary, [place] [address] Supervisor Nut Processing Tour Narrator 10/19/17 05/05/24 documented as of this encounter
--- OUTSIDE RECORDS SUMMARY | 2024-10-12 10:09 | XMS_ITS | Encounter Summary ---
Author Organization Healthcare Address [address] [place] [address] Care Team Providers Care Controller Repairer And Tester Name Role Phone Joshua Urban MD Primary Care Provider [phone] Encounter Details Date Type Department Care Team (Latest Contact Info) Description 09/24/2024 Travel Social History Tobacco Use Types Packs/Day [...] time in the past 12 m [facility], were you homeless or [...] drink first t michelet in the morning (EYE-US CUSTOMS AND BORDER OFFICER) to steady your nerves or to get rid of a hangover? 0 09/26/2022 CAGE Questionnaire Score 0 023 Utilities Answer Date Recorded In the past 12 months has e [employer], gas, oil, or water company threatened to [...] documented as of this encounter Care Teams Controller Repairer And Tester Relationship Specialty Start Date End Date Joshua Urban MD [address] [place] [address] PCP - General 06/27/20 documented as of this encounter
--- OUTSIDE RECORDS SUMMARY | 2024-10-12 10:09 | XMS_ITS | Encounter Summary ---
Author Organization Healthcare Address [address] [place] [address] Care Team Providers Care Recycling Director Name Role Phone Joshua Urban MD Primary Care Provider [phone] Tri Singletary CAE ENGINEER Unavailable Unavailable Encounter Details Date Type Department Care Team ([facility] st Contact Info) Description 12/01/2019 Orders Only External Location [address] [place] [address] Provider, External Social History Tobacco Use Types [...] documented as of this encounter Care Teams Recycling Director Relationship Specialty Start Date End Date Joshua Urban MD [address] [place] [address] PCP - General 06/27/20 Tri Singletary, [place] [address] Restaurant Floor Manager Guest House Manager 10/19/17 05/05/24 documented as of this encounter
--- OUTSIDE RECORDS SUMMARY | 2024-10-12 10:09 | XMS_ITS | Encounter Summary ---
Author Organization Healthcare Address [address] [place] [address] Care Team Providers Care Cable Ferry Operator Name Role Phone Joshua Urban MD Primary Care Provider [phone] Tri Singletary MEDICAL RECORDS LIBRARY PROFESSOR Unavailable Unavailable Encounter Details Date Type Department Care Team ([facility] st Contact Info) Description 12/01/2019 Orders Only External Location [address] [place] [address] Provider, External Social History Tobacco Use Types [...] documented as of this encounter Care Teams Cable Ferry Operator Relationship Specialty Start Date End Date Joshua Urban MD [address] [place] [address] PCP - General 06/27/20 Tri Singletary, [place] [address] Animal Chiropractor Print Support Specialist 10/19/17 05/05/24 documented as of this encounter
--- OUTSIDE RECORDS SUMMARY | 2024-10-12 10:09 | XMS_ITS | Encounter Summary ---
Author Organization Healthcare Address [address] [place] [address] Care Team Providers Care Director Financial Systems Name Role Phone Joshua Urban MD Primary Care Provider [phone] Tri Singletary ATHLETIC TRAINER Unavailable Unavailable Encounter Details Date Type Department Care Team (Late st Contact Info) Description 10/23/2016 Orders Only External Location [address] [place] [address] Provider, External Social History Tobacco Use Types [...] as of this encounter Care Teams Director Financial Systems Relationship Specialty Start Date End Date Joshua Urban MD [address] [place], [place] [id number] PCP - General 06/27/20 Tri Singletary, [place] [address] Handbag Stitcher Custodial Services Manager 10/19/17 05/05/24 documented as of this encounter
--- OUTSIDE RECORDS SUMMARY | 2024-10-12 10:09 | XMS_ITS | Encounter Summary ---
Author Organization Healthcare Address [address] [place] [address] Care Team Providers Care Prepared Foods Production Team Member Name Role Phone Joshua Urban MD Primary Care Provider [phone] Tri Singletary BANDER AND CELLOPHANER MACHINE HELPER Unavailable Unavailable Encounter Details Date Type Department Care Team (Late st Contact Info) Description 10/01/2022 Lab Requisition [facility] [address] [place] [address] Mitchel Ivey PA [address] [place] [address] Routine general medical examination at [...] drink first t michelet in the morning (EYE-MULE DEVELOPER) to steady your nerves or to [...] EDT [facility] MANUAL DIFFERENTIAL Routine 10/01/2022 6 :39 AM EDT Routine [facility] ACUTE HEPATITIS PANEL Routine 10/01/2022 6:39 AM EDT Routine general medical examination at [facility] facility CBC WITH AUTO DIFFERENTIAL Routine 10/01/2022 6:39 AM EDT Routine general medical examination at [facility] HEMOGLOBIN A1C Routine 10/01/2022 6:39 AM EDT Routine general [facility] LIPID PROFILE, PLASMA Routine 10/01/2022 6:37 AM EDT Routine [facility] medical [facility] COMPREHENSIVE METABOLIC PANEL, PLASMA Routine 10/01/2022 6:37 AM EDT Routine general [facility] documented in this encounter Results * Morphology (10/01/2022 6:39 AM EDT) RBC Morphology RBC Morphology Consistent with Indices and RDW LAB HEMATOLOGY METHOD 10/01/2022 10:17 AM EDT [facility] Platelet Estimate Platelet smear estimate consistent with automated count LAB HEMATOLOGY METHOD 10/01/2022 10:17 AM EDT [facility] Blood Venous blood specimen / Unknown Venipuncture / Unknown 10/01/2022 6:39 AM EDT 10/01/2022 7:43 AM EDT us Mitchel HOLLY LAB BLOOD ORDERABLES Final Resul t [facility] [address] [place] [address] * (ABNORMAL) Manual Differential (10/01/2022 6:39 AM EDT) Blasts % 0 % LAB HEMATOLOGY METHOD 10/01/2022 10:17 AM EDT [facility] Promyelocytes % 0 % LAB HEMATOLOGY METHOD 10/01/2022 10:17 AM EDT [facility] Myelocytes % 0 % LAB HEMATOLOGY METHOD 10/01/2022 10:17 AM EDT [facility] Metamyelocytes % 0 % LAB HEMATOLOGY METHOD 10/01/2022 10:17 AM EDT [facility] Neutrophils % 45 % LAB HEMATOLOGY METHOD 10/01/2022 10:17 AM EDT [facility] Lymphocytes % 29 % LAB HEMATOLOGY METHOD 10/01/2022 10:17 AM EDT [facility] Reactive Lymphocytes % 9 % LAB HEMATOLOGY METHOD 10/01/2022 10:17 AM EDT [facility] Monocytes % 15 % LAB HEMATOLOGY METHOD 10/01/2022 10:17 AM EDT [facility] Eosinophils % 1 % LAB HEMATOLOGY METHOD 10/01/2022 10:17 AM EDT [facility] Basophils % 1 % LAB HEMATOLOGY METHOD 10/01/2022 10:17 AM EDT [facility] Plasma Cells % 10/01/2022 10:17 AM EDT [facility] Lymphoma Cells % 10/02/19 10:17 AM EDT [facility] Hairy Cell % 10/01/2022 10:17 AM EDT [facility] Other Cells % 10/01/2022 10:17 AM EDT [facility] Blasts Absolute 0.00 10*3/UL LAB HEMATOLOGY METHOD 10/01/2022 10:17 AM EDT [facility] Promyelocytes Absolute 0.00 10*3/uL LAB HEMATOLOGY METHOD 10/01/2022 10:17 AM EDT [facility] Myelocytes Absolute 0.00 10*3/uL LAB HEMATOLOGY METHOD 10/01/2022 10:17 AM EDT [facility] Metamyelocytes Absolute 0.00 10*3/uL LAB HEMATOLOGY METHOD 10/01/2022 10:17 AM EDT [facility] Neutrophils Absolute 5.21 1.60 - 6.10 10*3/uL LAB HEMATOLOGY METHOD 10/01/2022 10:17 AM EDT [facility] Lymphocytes Absolute 3.36 1.20 - 3.90 10*3/uL LAB HEMATOLOGY METHOD 10/01/2022 10:17 AM EDT [facility] Reactive Lymphocytes Absolute 1.04 10*3/uL LAB HEMATOLOGY METHOD 10/01/2022 10:17 AM EDT [facility] Monocytes Absolute 1.74(H) 0.30 - 0.90 10*3/uL LAB HEMATOLOGY METHOD 10/01/2022 10:17 AM EDT [facility] Eosinophils Absolute 0.12 0.00 - 0.50 10*3/uL LAB HEMATOLOGY METHOD 10/01/2022 10:17 AM EDT [facility] Basophils Absolute 0.12(H) 0.00 - 0.10 10*3/uL LAB HEMATOLOGY METHOD 10/01/2022 10:17 AM EDT [facility] Plasma Cells Absolute 10/01/2022 10:17 AM EDT [facility] Lymphoma Cells Absolute 10/01/2022 10:17 AM EDT [facility] Hairy Cells Absolute 10/01/2022 10:17 AM EDT [facility] Other Cells Absolute 10/01/2022 10:17 AM EDT [facility] Blood Venous blood specimen / Unknown Venipuncture / Unknown 10/01/2022 6:39 AM EDT 10/01/2022 7:43 AM EDT Mitchel HOLLY LAB BLOOD ORDERABLES Final Resul t [facility] [address] [place] [address] * (ABNORMAL) CBC and Differential (10/01/2022 6:39 AM EDT) [facility] WBC Count 11.58(H) 3.70 - 10.30 10*3/uL LAB HEMATOLOGY METHOD 10/01/2022 10:17 AM EDT [facility] RBC Count 4.62 3.90 - 5.20 10*6/uL LAB HEMATOLOGY METHOD 10/01/2022 10:17 AM EDT [facility] HGB 13.0 11.2 - 15.7 g/dL LAB HEMATOLOGY METHOD 10/01/2022 10:17 AM EDT [facility] HCT 41.1 34.0 - 45.0 % LAB HEMATOLOGY METHOD 10/01/2022 10:17 AM EDT [facility] Platelet Count 299 155 - 369 10*3/uL LAB HEMATOLOGY METHOD 10/01/2022 10:17 AM EDT [facility] MCV 89 79 - 98 fL LAB HEMATOLOGY METHOD 10/01/2022 10:17 AM EDT [facility] MCH 28.1 26.0 - 32.0 pg LAB HEMATOLOGY METHOD 10/01/2022 10:17 AM EDT [facility] MCHC 31.6 30.7 - 35.5 g/dL LAB HEMATOLOGY METHOD 10/01/2022 10:17 AM EDT [facility] RDW 14.6(H) 11.5 - 14.5 % LAB HEMATOLOGY METHOD 10/01/2022 10:17 AM EDT [facility] MPV 10.0 8.8 - 12.5 fL LAB HEMATOLOGY METHOD 10/01/2022 10:17 AM EDT [facility] nRBC 0.0 <=0.0 per 100 WBCs LAB HEMATOLOGY METHOD 10/01/2022 10:17 AM EDT [facility] Differential Type Manual LAB HEMATOLOGY METHOD 10/01/2022 10:17 AM EDT [facility] Blood Venous blood specimen / Unknown Venipuncture / Unknown 10/01/2022 6:39 AM EDT 10/01/2022 7:43 AM EDT [facility] - 10/01/2022 10:17 AM EDT [...] Immature Granulocytes is no longer being reported. us Mitchel HOLLY LAB BLOOD ORDERABLES Final Resul t [facility] [address] [place] [address] * (ABNORMAL) Hemoglobin A1c (10/01/2022 6:39 AM EDT) Hemoglobin A1c 9.3(H) <5.7 % 10/01/2022 11:19 AM EDT [facility] Blood Venous blood specimen / Unknown Venipuncture / Unknown 10/01/2022 6:39 AM EDT 10/01/2022 7:44 AM EDT Narrative [facility] - 10/01/2022 11:19 AM EDT HA1C Interpretive Data: Diagnosis of Diabetes: Diabetic > or = 6.5% Pre-diabetic 5.7 to 6.4% Non-diabetic < or = 5.6% Glycemic Targets for Type I and Type II Diabetics: Non- Adults <7.0% Adults <6.0% Children and Adolescents <7.5% Source: [place] [employer]. Standards of medical care in diabetes,2017. Diabetes Care.2017:40 (suppl 1):S1-S135. HbA1c assay performed by an ion-exchange chromatography method that is certified traceable to the DCCT. Mitchel HOLLY LAB BLOOD ORDERABLES Final Resul t Performing Organization Address [facility] de Phone Number [facility] [address] [place] [address] * Hepatitis panel, acute (10/01/2022 6:39 AM EDT) Hepatitis B Surf Antigen Negative Negative 10/01/2022 11:42 AM EDT [facility] Hepatitis A Antibody IgM Negative Negative 10/01/2022 11:42 AM EDT [facility] Hepatitis B Core Antibody IgM Negative Negative 10/01/2022 11:42 AM EDT [facility] Blood Venous blood specimen / [...] Range Status 09/25/2022 Positive (A) Negative Final Mitchel HOLLY LAB BLOOD ORDERABLES Final Resul t [facility] [address] [place] [address] * (ABNORMAL) Lipid panel (10/01/2022 6:37 AM EDT) Cholesterol, Plasma 219(H) <200 mg/dL 10/01/2022 10:12 AM EDT [facility] Comment: Cholesterol Reference Range (age >17 years): Desirable <200 mg/dL Borderline 200 to 239 mg/dL Undesirable >239 mg/dL HDL 82 >=50 mg/dL 10/01/2022 10:12 AM EDT [facility] Comment: HDL Cholesterol Reference Ranges (age >17 years): Female, acceptable > or = 50 mg/dL Male, acceptable > or = 40 mg/dL Triglycerides, Plasma 172(H) <150 mg/dL 10/01/2022 10:12 AM EDT [facility] Comment: Triglyceride Reference Range (age >17 years): Desirable: <150 mg/dL Borderline high: 150 to 199 mg/dL High: 200 to 499 mg/dL Very high: >499 mg/dL Increased risk of pancreatitis: >1000 mg/dL Cholesterol/HDL Ratio 3 10/01/2022 10:12 AM EDT [facility] LDL, Calculated 108(H) <100 mg/dL 10:12 AM EDT [facility] Comment: LDL Cholesterol Reference Range (age [...] 12 hours? Unknown 10/01/2022 10:12 AM EDT [facility] Blood Venous blood specimen / Unknown Venipuncture / Unknown 10/01/2022 6:37 AM EDT 10/01/2022 7:49 AM EDT us Mitchel HOLLY LAB BLOOD ORDERABLES Final Resul t [facility] [address] [place] [address] * (ABNORMAL) Comprehensive metabolic panel (10/01/2022 6:37 AM EDT) [facility] Glucose, Plasma 364(H) 74 - 99 mg/dL 10/01/2022 10:12 AM EDT [facility] BUN, Plasma 43(H) 8 - 23 mg/dL 10/01/2022 10:12 AM EDT [facility] Creatinine, Plasma 1.02 0.60 - 1.10 mg/dL 10/01/2022 10:12 AM EDT [facility] BUN/Creatinine Ratio 42 10/01/2022 10:12 AM EDT [facility] Sodium, Plasma 140 136 - 145 mmol/L 10/01/2022 10:12 AM EDT [facility] Potassium, Plasma 5.0(H) 3.7 - 4.8 mmol/L 10/01/2022 10:12 AM EDT [facility] Chloride, Plasma 107 97 - 107 mmol/L 10/01/2022 10:12 AM EDT [facility] CO2, Plasma 27 22 - 29 mmol/L 10/01/2022 10:12 AM EDT [facility] Anion Gap 6 6 - 16 mmol/L 10/01/2022 10:12 AM EDT [facility] Total Calcium, Plasma 9.8 8.9 - 10.2 mg/dL 10/01/2022 10:12 AM EDT [facility] Total Protein 6.5 6.3 - 7.9 g/dL 10/01/2022 10:12 AM EDT [facility] Albumin, Plasma 3.3(L) 3.5 - 5.2 g/dL 10/01/2022 10:12 AM EDT [facility] AST, Plasma 67(H) 9 - 36 U/L 10/01/2022 10:12 AM EDT [facility] ALT, Plasma 67(H) 8 - 33 U/L 10/01/2022 10:12 AM EDT [facility] Alkaline Phosphatase, Plasma 103 46 - 142 U/L 10/01/2022 10:12 AM EDT [facility] Total Bilirubin, Plasma 0.3 0.2 - 1.1 mg/dL 10/01/2022 10:12 AM EDT [facility] eGFRcr 62.7 mL/min/1.7 3m*2 10/01/2022 10:12 AM EDT [facility] Comment:Reported eGFRcr in m L/min/1.73m2 is based the CKD-EPI 2020 equation that does not use a race coefficient. Blood Venous blood specimen / Unknown Venipuncture / Unknown 10/01/2022 6:37 AM EDT 10/01/2022 7:49 AM EDT us Mitchel HOLLY LAB BLOOD ORDERABLES Final Resul t [facility] [address] [place] [address] documented in this encounter Visit Diagnoses Diagnosis Routine general medical examination at a health care facility documented in this encounter Care Teams Prepared Foods Production Team Member Relationship Specialty Start Date End Date Joshua Urban MD [address] [place] [address] PCP - General 06/27/20 Tri Singletary, [place] [address] Data Communications Technician Benefits Specialist 10/19/17 05/05/24 documented as of this encounter
--- OUTSIDE RECORDS SUMMARY | 2024-10-12 10:09 | XMS_ITS | Encounter Summary ---
Author Organization Healthcare Address [address] [place] [address] Care Team Providers Care Airworthiness Inspector Name Role Phone Joshua Urban MD Primary Care Provider [phone] Tri Singletary DIRECTOR OF PLACEMENT Unavailable Unavailable Encounter Details Date Type Department Care Team ([facility] st Contact Info) Description 12/02/2019 Orders Only External Location [address] [place] [address] Provider, External Social History Tobacco Use Types [...] documented as of this encounter Care Teams Airworthiness Inspector Relationship Specialty Start Date End Date Joshua Urban MD [address] [id number] PCP - General 06/27/20 Tri Singletary, [place] [address] Camera Systems Engineer Utility Tender Carding 10/19/17 05/05/24 documented as of this encounter
--- OUTSIDE RECORDS SUMMARY | 2024-10-12 10:09 | XMS_ITS | Clinical Summary ---
Author Organization [facility] Address [address] [place] [address] Care Team Providers Care Hvac Mechanic Name Role Phone Joshua Urban MD Primary Care Provider [phone] Allergies Active Allergy Reactions Criticality Noted Date [...] BMI 28.37 Complicates care Current use of usp anticoagulation 025 Overview (05/27/2024): Resume home eliquis [...] SGT ICU Tertiary, ITSS, AUDIT-C completed 05/24 [id number] kidney injury 05/23/2024 Overview (05/30/2024): Cr 2.92 [...] Encounters Date Type Department Care Team Description 09/24/2024 2:30 PM EDT Office Visit [facility] Orthopaedic Surgery & Sports Medicine [address] [place] [address] Cornelio Burns MD Closed displaced intertrochanteric fracture of left femur with routine healing, subsequent encounter (Primary Dx); Closed fracture of hip, unspecified laterality, sequela 09/24/2024 2:24 PM EDT - 09/24/2024 11:59 PM EDT Hospital En[facility] [address] [place] [address] Closed fracture of hip, unspecified laterality, sequela Discharge Disposition: Home or Self Care 09/24/2024 Travel 08/24/2024 Patient Outreach [facility] Medicine Specialties [address] [place] [address] Servando Jm L 07/16/2024 8:40 AM EDT Office Visit [facility] Orthopaedic Surgery & Sports Medicine [address] [place] [address] Cornelio Burns MD Closed fracture of hip, unspecified laterality, sequela (Primary Dx) 07/16/2024 7:34 AM EDT - 07/16/2024 11:59 PM EDT Hospital Encounter [facility] Radiology [address] [place] [address] Closed fracture of hip, unspecified laterality, sequela Discharge Disposition: Home or Self Care 07/16/2024 Travel from Last 3 Months Immunizations Immunization Administration Dates Next Due Hep B, adult 12/04/2018,07/12/2018,05/30/2018 Influenza Vaccine, Quadrival ent, Adjuvanted 11/26/2022 Influenza, Unspecified 12/01/2016 Influenza, high-dose, quadrivalent 04/05/2024 Influenza, injectable, quadr ivalent, preservative free 11/26/2022,03/06/2021,06/04/2017,12/20 Pneumococcal Polysaccharide PPV23 12/26/2015,10/2014 Family History Medical History Relation Name Comments Conversions - Other Cousin alpha-1- antitrypsin deficiency Conversions - Other Father's Brother alph y-8-[id number] deficiency Conversions - Other Father's Sister alpha [...] were you homeless or living in a jail (including now)? No 05/24/2024 CAGE ASSESSMENT Answer [...] drink first t michelet in the morning (EYE-CARDIOLOGY NURSE) to steady your nerves or to get rid of a hangover? 0 09/26/2022 CAGE Questionnaire Score 0 023 Utilities Answer Date Recorded In the past 12 months has th e [employer], gas, oil, or water company threatened to [...] F) 09/24/2024 2:20 PM EDT Respiratory Rate 14 06/01/2024 3:15 AM EDT Oxygen Saturation 92% 09/24/2024 2:20 PM EDT Inhaled Oxygen Concentration - - Weight 82.1 kg (181 lb) 09/24/2024 2:20 PM EDT Height 165.1 cm (5' 5 ) 09/24/2024 2:20 PM EDT Body Mass Index 30.12 09/24/2024 2:20 PM EDT Plan of Treatment Health Maintenance Due [...] - Risk 60-74 years 1-dose series) 2021 [id number] Vaccine (1 - 2023- season) 2023 FOBT 06/22/2024 06/23/2023 [facility]-Colorectal Cancer Screening 06/22/2024 [facility]-Diabetes: Hemoglobin A1C 08/22/202410/2024, 10/01/2022, 12/03/2019, Additional history exists [facility]-Influenza Vaccine (#1) 10/15/202404/05, 11/26/2022, 11/26/2022, Additional history exists [facility]- SDOH Screenings 11/23/2024 [facility]-Adult SDOH Screenings 11/23/2024 05/24/2024 [facility]-HIV Screening Completed 05/23/2024, 09/25/2022 [facility]-Obesity Intervention Completed 025, 07/16/2024, 06/12/2024, Additional history exists HPV Vaccines Aged Out No longer eligi [...] this topic Medical Devices Implanted Type Area Freight Router Device Identifier Shelf Expiration Date Model / Serial / Lot Screw 10.5x85mm [employer]ob[employer] Ti Lag [employer] Med - Sna - [id number] Implanted:Qty: 1 on 05/24/2024 by Cornelio Burns MD at [facility] Screw Left: Femur [employer]-[id number] 05/24/2025 [id number] / NA / NA Screw 5x35mm Ti Autobahn Lonnie Locking [employer] - Sna - [id number] Implanted:Qty: 1 on 05/24/2024 by Cornelio Burns MD at [facility] Screw Left: Femur [employer] [place] [employer]-[id number] 05/24/2025 [id number] / NA / NA Ball-Tip Guidewire [id number] - [id number] Implanted:Qty: 1 on 05/24/2024 by Cornelio Burns MD at [facility] Left: Femur [employer] [place] [employer]-[id number] 04/19/2031 [id number] / / Nail Ti Trochanteric [id number] 125deg Lt - [id number] Implanted:Qty: 1 on 05/24/2024 by Cornelio Burns MD at [facility] Left: Femur [employer]-[id number] 04/19/2034 [id number] / / Procedures Procedure Name Priority Date/Time Associated Diagnosis Comments XR HIP LEFT 2 OR 3 VIEWS Routine 09/24/2024 2:39 PM EDT Closed fracture of hip, unspecified laterality, sequela XR HIP LEFT 2 OR 3 VIEWS Routine 07/16/2024 7:48 AM EDT Closed fracture of hip, unspecified laterality, sequela ED HIV 1/2 ANTIBODY/ANTIGEN SCREEN WITH REFLEX TO HIV I/II DIFFERENTIATION STAT 05/23/2024 6:52 AM EDT HEMOGLOBIN A1C STAT Add-on 05/23/2024 6:[address] CHEST WO IV CONTRAST Routine 12/02/2019 5:12 AM EDT from Last 3 Months or Most Recently Relevant to Health Maintenance Results * XR Hip Left 2 or 3 Views (09/24/2024 2:39 PM EDT) Only the most recent of2 resultswithin [...] Reactive Non Reactive 05/23/2024 7:41 AM EDT [facility] Comment:Screening for HIV 1 & 2 antibodies, and P24 antigen is NONREACTIVE. No confirmatory testing is required. Blood Venous blood specimen / Unknown Venipuncture / Unknown 05/23/2024 6:52 AM EDT 05/23/2024 7:01 AM EDT us Cornelio Burns MD LAB BLOOD ORDERABLES Final Re sult Performing Organization Address City/[facility]/ZIP Co de Phone Number [facility] [address] [place] [address] * (ABNORMAL) Hemoglobin A1c (05/23/2024 6:52 AM EDT) Hemoglobin A1c 7.8(H) <5.7 % 05/23/2024 5:13 PM EDT [facility] Blood Venous blood specimen / Unknown Venipuncture / Unknown 05/23/2024 6:52 AM EDT 05/23/2024 6:54 AM EDT Narrative [facility] - 05/23/2024 5:13 PM EDT HA1C Interpretive Data: Diagnosis of Diabetes: Diabetic > or = 6.5% Pre-diabetic 5.7 to 6.4% Non-diabetic < or = 5.6% Glycemic Targets for Type I and Type II Diabetics: Non- Adults <7.0% Adults <6.0% Children and Adolescents <7.5% Source: [place] [employer]. Standards of medical care in diabetes,2017. Diabetes Care.2017:40 (suppl 1):S1-S135. us Bing Byers APRN LAB BLOOD ORDERABLES Final Result Performing Organization Address City/[facility]/ZIP Co de Phone Number [facility] [address] [place] [address] * CT Chest wo IV Contrast (12/02/2019 [...] the final edited report. Verified by: CAMMY VASQUEZ M.D. on Dec 02 2019 6:24A Transcribed by: YAKOV on Dec 02 2019 5:43A Dictated by: JM SUTHERLAND D.O. on Dec 02 2019 5:43A Procedure Note Cammy Vasquez MD - 06/10/2020 REQUESTING PHYSICIAN: BRIAN BAILEY [...] the final edited report. Verified by: CAMMY VASQUEZ M.D. on Dec 02 2019 6:24A Transcribed by: [facility] on Dec 02 2019 5:43A Dictated by: [...] 9:34 AM 05/24/2024 10:01 AM Care Teams Hvac Mechanic Relationship Specialty Start Date End Date Joshua Urban MD [address] [place] [id number] PCP - General 06/27/20
[2024-10-12 10:30] VITALS: PULSE 57; PULSE 58
[2024-10-12] MEDS: IPRATROPIUM/ALBUTEROL 3 ML NEB IH (10:30)
--- NOTE | 2024-10-12 11:00 | CT_ITS ---
FINAL REPORT TECHNIQUE: Thin section axial images were obtained from the lung apices through the upper abdomen without contrast. This study was performed with techniques to keep radiation doses as low as reasonably achievable (ALARA). Individualized dose reduction techniques using automated exposure control or adjustment of mA and/or kV according to the patient's size were employed. CLINICAL HISTORY: .soa/pnm COMPARISON: 08/30/2024 FINDINGS: There is no axillary lymphadenopathy. There has been interval improvement in mediastinal and subcarinal lymphadenopathy. Previously seen a right pleural effusion has resolved. There is no pleural or pericardial effusion. Emphysematous changes are present. There is a subpleural, left upper lobe opacity which is unchanged. There has been near complete resolution of right lower lobe pneumonia. Several small pulmonary nodules are seen in the left lower lobe. A nodule seen on series 2, image 45 measures 5 mm. 2 nodules are present on image 40 in the left lower lobe measuring up to 4 mm. These were likely present on prior exam. Although, were obscured by motion. Limited imaging of the upper abdomen demonstrates no acute abnormality. No acute osseous changes are seen. There is a chronic lower thoracic compression deformity noted. IMPRESSION: 1. Near complete resolution of right lower lobe pneumonia. 2. Subcentimeter left lower lobe pulmonary nodules, likely present on prior exam. Although, partially obscured. Recommend 3-6-month follow-up. 3. Improved lymphadenopathy. Reviewed, Interpreted and Dictated by Laura Mike MD Transcribed by Milagros López Authenticated and [facility]
== END 2024-10-12 23:59 | disposition home or self-care (01) ==
LOC: RT 10:06
PROVIDERS: PCP Nurse Practitioner Family; Visit Provider Internal Medicine Pulmonary Disease
DX: J44.0 Chronic obstructive pulmonary disease with (acute) lower respiratory infection (principal); J18.9 Pneumonia, unspecified organism; J98.4 Other disorders of lung; R91.8 Other nonspecific abnormal finding of lung field; R94.2 Abnormal results of pulmonary function studies
CPT/HCPCS: 71046; 71250; 94010; 94640

== ENCOUNTER 2024-10-31 09:41 | Outpatient (CLI) | payer MEDICARE, MEDICAID, SELFPAY ==
--- OUTSIDE RECORDS SUMMARY | 2024-09-24 14:24 | XMS_ITS | Encounter Summary ---
Author Organization Healthcare Address [address] 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
--- OUTSIDE RECORDS SUMMARY | 2024-09-24 14:30 | XMS_ITS | Encounter Summary ---
Author Organization Healthcare Address [address] [place] [address] Care Team Providers Care Kettle Cook Name Role Phone Joshua Urban MD Primary Care Provider [phone] Reason for Visit * Reason Comments Follow-up Encounter Details Date Type Department Care Team (Latest Contact Info) Description 09/24/2024 2:30 PM EDT Office Visit [facility] Orthopaedic Surgery & Sports Medicine [address] [place] [address] Cornelio Burns MD [address] [place] [address] Closed displaced intertrochanteric fracture of [...] any time in the past 12 m [facility], were you homeless or living in [...] drink first t michelet in the morning (EYE-HOPPER FEEDER) to steady your nerves or to get rid of a hangover? 0 09/26/2022 CAGE Questionnaire Score 0 023 Utilities Answer Date Recorded In the past 12 months has [employer], gas, oil, or water [employer] threatened to shut off services in your [...] documented as of this encounter Care Teams Kettle Cook Relationship Specialty Start Date End Date Joshua Urban MD [address] [place] [address] PCP - General 06/27/20 documented as of this encounter
--- OUTSIDE RECORDS SUMMARY | 2024-10-31 09:45 | XMS_ITS | Encounter Summary ---
Author Organization Healthcare Address [address] [place] [address] Care Team Providers Care X Ray Technologist Name Role Phone Joshua Urban MD Primary Care Provider [phone] Tri Singletary MEDICAL SUPERVISOR Unavailable Unavailable Encounter Details Date Type Department Care Team (Late st Contact Info) Description 10/01/2022 Lab Requisition [facility] [address] [place] [address] Mitchel Ivey PA [address] [place] [address] Routine general medical examination at [...] first t michelet in the morning (EYE-ROLL FORMING SUPERVISOR) to steady your nerves or to [...] EDT Routine general medical examination at a [facility] facility MANUAL DIFFERENTIAL Routine 10/01/2022 6:39 AM EDT Routine general medical examination at a [facility] facility ACUTE HEPATITIS PANEL Routine 10/01/2022 6:39 AM EDT Routine general medical examination at [facility] facility CBC WITH AUTO DIFFERENTIAL Routine 10/01/2022 6:39 AM EDT Routine general medical examination at [facility] HEMOGLOBIN A1C Routine 10/01/2022 6:39 AM EDT Routine general medical examination at a [facility] facility LIPID PROFILE, PLASMA Routine 10/01/2022 6:37 AM EDT Routine general medical examination at a [facility] facility COMPREHENSIVE METABOLIC PANEL, PLASMA Routine 10/01/2022 6:37 AM EDT Routine general medical examination at a [facility] facility documented in this encounter Results * Morphology (10/01/2022 6:39 AM EDT) RBC Morphology RBC Morphology Consistent with Indices and RDW LAB HEMATOLOGY METHOD 10/01/2022 10:17 AM EDT [facility] Platelet Estimate Platelet smear estimate consistent with automated count LAB HEMATOLOGY METHOD 10/01/2022 10:17 AM EDT [facility] Blood Venous blood specimen / Unknown Venipuncture / Unknown 10/01/2022 6:39 AM EDT 10/01/2022 7:43 AM EDT us Mitchel HOLLY LAB BLOOD ORDERABLES Final Resul t [facility] [address] [place] [address] * (ABNORMAL) Manual Differential (10/01/2022 6:39 AM [...] LAB HEMATOLOGY METHOD 10/01/2022 10:17 AM EDT [facility] Plasma Cells Absolute 10/01/2022 10:17 AM EDT [facility] Lymphoma Cells Absolute 10/01/2022 10:17 AM EDT [facility] Hairy Cells Absolute 10/01/2022 10:17 AM EDT [facility] Other Cells Absolute 10/01/2022 10:17 AM EDT [facility] Blood Venous blood specimen / Unknown Venipuncture / Unknown 10/01/2022 6:39 AM EDT 10/01/2022 7:43 AM EDT Mitchel HOLLY LAB BLOOD ORDERABLES Final Resul t [facility] [address] [place] [address] * (ABNORMAL) CBC and Differential (10/01/2022 6:39 AM EDT) [facility] WBC Count 11.58(H) 3.70 - 10.30 10*3/uL LAB HEMATOLOGY METHOD 10/01/2022 10:17 AM EDT [facility] RBC Count 4.62 3.90 - 5.20 10*6/uL LAB HEMATOLOGY METHOD 10/01/2022 10:17 AM EDT [facility] HGB 13.0 11.2 - 15.7 g/dL LAB HEMATOLOGY METHOD 10/01/2022 10:17 AM EDT [facility] HCT 41.1 34.0 - 45.0 % LAB HEMATOLOGY METHOD 10/01/2022 10:17 AM EDT [facility] Platelet Count 299 155 - 369 10*3/uL LAB HEMATOLOGY METHOD 10/01/2022 10:17 AM EDT [facility] MCV 89 79 - 98 fL LAB HEMATOLOGY METHOD 10/01/2022 10:17 AM EDT [facility] MCH 28.1 26.0 - 32.0 pg LAB HEMATOLOGY METHOD 10/01/2022 10:17 AM EDT [facility] MCHC 31.6 30.7 - 35.5 g/dL LAB HEMATOLOGY METHOD 10/01/2022 10:17 AM EDT [facility] RDW 14.6(H) 11.5 - 14.5 % LAB HEMATOLOGY METHOD 10/01/2022 10:17 AM EDT [facility] MPV 10.0 8.8 - 12.5 fL LAB HEMATOLOGY METHOD 10/01/2022 10:17 AM EDT [facility] nRBC 0.0 <=0.0 per 100 WBCs LAB HEMATOLOGY METHOD 10/01/2022 10:17 AM EDT [facility] Differential Type Manual LAB HEMATOLOGY METHOD 10/01/2022 10:17 AM EDT [facility] Blood Venous blood specimen / Unknown Venipuncture / Unknown 10/01/2022 6:39 AM EDT 10/01/2022 7:43 AM EDT [facility] - 10/01/2022 10:17 AM EDT Therapeutic [...] HOLLY LAB BLOOD ORDERABLES Final Resul t [facility] [address] [place] [address] * (ABNORMAL) Hemoglobin A1c (10/01/2022 6:39 AM [...] ORDERABLES Final Resul t Performing Organization Address [facility] de Phone Number [facility] [address] [place] [address] * Hepatitis panel, acute (10/01/2022 6:39 AM EDT) Hepatitis B Surf Antigen Negative Negative 10/01/2022 11:42 AM EDT [facility] Hepatitis A Antibody IgM Negative [...] ORDERABLES Final Resul t [facility] [address] [place] [address] * (ABNORMAL) Lipid panel (10/01/2022 6:37 AM EDT) Cholesterol, Plasma 219(H) <200 mg/dL 10/01/2022 10:12 AM EDT [facility] Comment: Cholesterol Reference Range (age >17 years): Desirable <200 mg/dL Borderline 200 to 239 mg/dL Undesirable >239 mg/dL HDL 82 >=50 mg/dL 10/01/2022 10:12 AM EDT [facility] [employer] [facility] Comment: HDL Cholesterol Reference Ranges (age [...] 12 hours? Unknown 10/01/2022 10:12 AM EDT [employer] [employer] [facility] Blood Venous blood specimen / Unknown Venipuncture / Unknown 10/01/2022 6:37 AM EDT 10/01/2022 7:49 AM EDT us Mitchel HOLLY LAB BLOOD ORDERABLES Final Resul t [facility] [address] [place] [address] * (ABNORMAL) Comprehensive metabolic panel (10/01/2022 6:37 AM EDT) [facility] Glucose, Plasma 364(H) 74 - 99 mg/dL 10/01/2022 10:12 AM EDT [facility] BUN, Plasma 43(H) 8 - 23 mg/dL 10/01/2022 10:12 AM EDT [facility] Creatinine, Plasma 1.02 0.60 - 1.10 mg/dL 10/01/2022 10:12 AM EDT [facility] BUN/Creatinine Ratio 42 10/01/2022 10:12 AM EDT [facility] Sodium, Plasma 140 136 - 145 mmol/L 10/01/2022 10:12 AM EDT [facility] Potassium, Plasma 5.0(H) 3.7 - 4.8 mmol/L 10/01/2022 10:12 AM EDT [facility] Chloride, Plasma 107 97 - 107 mmol/L 10/01/2022 10:12 AM EDT [facility] CO2, Plasma 27 22 - 29 mmol/L 10/01/2022 10:12 AM EDT [facility] Anion Gap 6 6 - 16 mmol/L 10/01/2022 10:12 AM EDT [facility] Total Calcium, Plasma 9.8 8.9 - 10.2 mg/dL 10/01/2022 10:12 AM EDT [facility] Total Protein 6.5 6.3 - 7.9 g/dL 10/01/2022 10:12 AM EDT [facility] Albumin, Plasma 3.3(L) 3.5 - 5.2 g/dL 10/01/2022 10:12 AM EDT [facility] AST, Plasma 67(H) 9 - 36 U/L 10/01/2022 10:12 AM EDT [facility] ALT, Plasma 67(H) 8 - 33 U/L 10/01/2022 10:12 AM EDT [facility] Alkaline Phosphatase, Plasma 103 46 - 142 U/L 10/01/2022 10:12 AM EDT [facility] Total Bilirubin, Plasma 0.3 0.2 - 1.1 mg/dL 10/01/2022 10:12 AM EDT [facility] eGFRcr 62.7 mL/min/1.7 3m*2 10/01/2022 10:12 AM EDT [facility] Comment:Reported eGFRcr in m L/min/1.73m2 is based the CKD-EPI 2020 equation that does not use a race coefficient. Blood Venous blood specimen / Unknown Venipuncture / Unknown 10/01/2022 6:37 AM EDT 10/01/2022 7:49 AM EDT us Mitchel HOLLY LAB BLOOD ORDERABLES Final Resul t [facility] [address] [place] [address] documented in this encounter Visit Diagnoses Diagnosis Routine general medical examination at a health care facility documented in this encounter Care Teams X Ray Technologist Relationship Specialty Start Date End Date Joshua Urban MD [address] [place] [address] PCP - General 06/27/20 Tri Singletary, [place] [address] Pre Sales Technical Engineer Dampproofer 10/19/17 05/05/24 documented as of this encounter
--- OUTSIDE RECORDS SUMMARY | 2024-10-31 09:45 | XMS_ITS | Encounter Summary ---
Author Organization Healthcare Address [address] [place] [address] Care Team Providers Care Underpresser Hand Name Role Phone Joshua Urban MD Primary Care Provider [phone] Tri Singletary GLAZE CARRIER Unavailable Unavailable Encounter Details Date Type Department Care Team ([facility] st Contact Info) Description 06/12/2016 Orders Only External Location [address] [place] [address] Provider, External Social History Tobacco Use Types [...] documented as of this encounter Care Teams Underpresser Hand Relationship Specialty Start Date End Date Joshua Urban MD [address] [place], [place] [id number] PCP - General 06/27/20 Tri Singletary, [place] [address] Criminal Lawyer Medical Pathologist 10/19/17 05/05/24 documented as of this encounter
--- OUTSIDE RECORDS SUMMARY | 2024-10-31 09:45 | XMS_ITS | Encounter Summary ---
Author Organization Healthcare Address [address] [place] [address] Care Team Providers Care Filter Changer Name Role Phone Joshua Urban MD Primary Care Provider [phone] Tri Singletary BED MACHINE OPERATOR Unavailable Unavailable Encounter Details Date Type Department Care Team ([facility] st Contact Info) Description 09/05/2017 Orders Only External Location [address] [place] [address] Provider, External Social History Tobacco Use Types [...] documented as of this encounter Care Teams Filter Changer Relationship Specialty Start Date End Date Joshua Urban MD [address] [place] [address] PCP - General 06/27/20 Tri Singletary, [place] [address] Machine Brush Maker Rf Test Engineer 10/19/17 05/05/24 documented as of this encounter
--- OUTSIDE RECORDS SUMMARY | 2024-10-31 09:45 | XMS_ITS | Encounter Summary ---
Author Organization Healthcare Address [address] [place] [address] Care Team Providers Care Gas Adjuster Name Role Phone Joshua Urban MD Primary Care Provider [phone] Tri Singletary EXPANDED FUNCTION DENTAL ASSISTANT Unavailable Unavailable Encounter Details Date Type Department Care Team ([facility] st Contact Info) Description 01/15/2018 Orders Only External Location [address] [place] [address] Provider, External Social History Tobacco Use Types [...] documented as of this encounter Care Teams Gas Adjuster Relationship Specialty Start Date End Date Joshua Urban MD [address] [place], [place] [id number] PCP - General 06/27/20 Tri Singletary, [place] [address] Spd Manager Box Press Operator 10/19/17 05/05/24 documented as of this encounter
--- OUTSIDE RECORDS SUMMARY | 2024-10-31 09:45 | XMS_ITS | Encounter Summary ---
Author Organization Healthcare Address [address] [place] [address] Care Team Providers Care Medical Psychotherapist Name Role Phone Joshua Urban MD Primary Care Provider [phone] Tri Singletary BLOCK FEEDER Unavailable Unavailable Encounter Details Date Type Department Care Team (Late st Contact Info) Description 10/23/2016 Orders Only External Location [address] [place] [address] Provider, External Social History Tobacco Use Types [...] documented as of this encounter Care Teams Medical Psychotherapist Relationship Specialty Start Date End Date Joshua Urban MD [address] [place], [place] [id number] PCP - General 06/27/20 Tri Singletary, [place] [address] Extern Pc Installation Engineer 10/19/17 05/05/24 documented as of this encounter
--- OUTSIDE RECORDS SUMMARY | 2024-10-31 09:45 | XMS_ITS | Encounter Summary ---
Author Organization Healthcare Address [address] [place] [address] Care Team Providers Care Media Theorist And Author Of Name Role Phone Joshua Urban MD Primary Care Provider [phone] Tri Singletary MAINTENANCE AIDE Unavailable Unavailable Encounter Details Date Type Department Care Team (Late st Contact Info) Description 01/03/2018 Legacy OTTR Encounter Historical OTTR [address] [place] [address] Larissa Pineda RN H[facility] [...] need a new referral from her primary talent acquisition consultant. Pt verbalized understanding. * Progress Notes - [...] or pulmonoligist- I did transfer pt to [facility] for follow up * Progress [...] to pt, referring MD, and saved to [facility]. * Progress Notes - Larissa Pineda - [...] questionnaires and map for ICE on 12/15 [phone] * Progress Notes - Wen Stiles [...] and map , and refer. MD letter [phone] * Progress Notes - Wen [...] ORDERABLES Final R esult Performing Organization Address [facility] Co de Phone Number EXTERNAL LAB * OTTR LAB RESULTS (MANUAL) (12/15/2017 11:47 AM EDT) Pathologist [facility] External FEV1/FVC (Pre) % 1.92 [...] documented as of this encounter Care Teams Media Theorist And Author Of Relationship Specialty Start Date End Date Joshua Urban MD [address] [place] [address] PCP - General 06/27/20 Tri Singletary, [place] [address] Precision Jig Grinder Clarifier Operator 10/19/17 05/05/24 documented as of this encounter
--- OUTSIDE RECORDS SUMMARY | 2024-10-31 09:45 | XMS_ITS | Encounter Summary ---
Author Organization Healthcare Address [address] [place] [address] Care Team Providers Care Warp Preparer Name Role Phone Joshua Urban MD Primary Care Provider [phone] Tri Singletary TOOL MACHINE SET UP OPERATOR Unavailable Unavailable Encounter Details Date Type Department Care Team ([facility] st Contact Info) Description 12/01/2019 Orders Only External Location [address] [place] [address] Provider, External Social History Tobacco Use Types [...] documented as of this encounter Care Teams Warp Preparer Relationship Specialty Start Date End Date Joshua Urban MD [address] [place] [address] PCP - General 06/27/20 Tri Singletary, [place] [address] Inspector Final Assembly Electrical Consulting Software Engineer 10/19/17 05/05/24 documented as of this encounter
--- OUTSIDE RECORDS SUMMARY | 2024-10-31 09:45 | XMS_ITS | Encounter Summary ---
Author Organization Healthcare Address [address] [place] [address] Care Team Providers Care Technical Support Representative Name Role Phone Joshua Urban MD Primary Care Provider [phone] Tri Singletary INSURANCE BUSINESS ANALYST Unavailable Unavailable Encounter Details Date Type Department Care Team ([facility] st Contact Info) Description 12/16/2017 Orders Only External Location [address] [place] [address] Provider, External Social History Tobacco Use Types [...] documented as of this encounter Care Teams Technical Support Representative Relationship Specialty Start Date End Date Joshua Urban MD [address] [place], [place] [id number] PCP - General 06/27/20 Tri Singletary, [place] [address] Rn Correctional Fashion Consultant Sales 10/19/17 05/05/24 documented as of this encounter
--- OUTSIDE RECORDS SUMMARY | 2024-10-31 09:45 | XMS_ITS | Encounter Summary ---
Author Organization Healthcare Address [address] [place] [address] Care Team Providers Care Cataract Lens Generator Name Role Phone Joshua Urban MD Primary Care Provider [phone] Encounter Details Date Type Department Care Team (Late st Contact Info) Description 05/23/2024 Orders Only External Location [address] [place] [address] Provider, External Social History Tobacco Use Types [...] any time in the past [address] [facility], were you homeless or living in [...] drink first t michelet in the morning (EYE-STENCIL INSPECTOR) to steady your nerves or to [...] documented as of this encounter Care Teams Cataract Lens Generator Relationship Specialty Start Date End Date Joshua Urban MD [address] [place] [address] PCP - General 06/27/20 documented as of this encounter
--- OUTSIDE RECORDS SUMMARY | 2024-10-31 09:45 | XMS_ITS | Encounter Summary ---
Author Organization Healthcare Address [address] [place] [address] Care Team Providers Care Clinical Documentation Manager Name Role Phone Joshua Urban MD Primary Care Provider [phone] Tri Singletary SYSTEMS SOFTWARE ENGINEER Unavailable Unavailable Encounter Details Date Type Department Care Team ([facility] st Contact Info) Description 12/01/2019 Orders Only External Location [address] [place] [address] Provider, External Social History Tobacco Use Types [...] documented as of this encounter Care Teams Clinical Documentation Manager Relationship Specialty Start Date End Date Joshua Urban MD [address] [place] [address] PCP - General 06/27/20 Tri Singletary, [place] [address] Fan Blade Aligner Wind Field Manager 10/19/17 05/05/24 documented as of this encounter
--- OUTSIDE RECORDS SUMMARY | 2024-10-31 09:45 | XMS_ITS | Encounter Summary ---
Author Organization Healthcare Address [address] [place] [address] Care Team Providers Care Asp Developer Name Role Phone Joshua Urban MD Primary Care Provider [phone] Tri Singletary GRAINING PRESS OPERATOR Unavailable Unavailable Encounter Details Date Type Department Care Team ([facility] st Contact Info) Description 12/16/2017 Orders Only External Location [address] [place] [address] Provider, External Social History Tobacco Use Types [...] documented as of this encounter Care Teams Asp Developer Relationship Specialty Start Date End Date Joshua Urban MD [address] [place] [address] PCP - General 06/27/20 Tri Singletary, [place] [address] X Ray Examiner Of Aircraft Study Manager 10/19/17 05/05/24 documented as of this encounter
--- OUTSIDE RECORDS SUMMARY | 2024-10-31 09:45 | XMS_ITS | Encounter Summary ---
Author Organization Healthcare Address [address] [place] [address] Care Team Providers Care Quiller Machine Fixer Name Role Phone Joshua Urban MD Primary Care Provider [phone] Tri Singletary PREPRESS PROOFER Unavailable Unavailable Encounter Details Date Type Department Care Team ([facility] st Contact Info) Description 12/02/2019 Orders Only External Location [address] [place] [address] Provider, External Social History Tobacco Use Types [...] documented as of this encounter Care Teams Quiller Machine Fixer Relationship Specialty Start Date End Date Joshua Urban MD [address] [place] [id number] PCP - General 06/27/20 Tri Singletary, [place] [address] Environmental Services Floor Tech Senior Data Quality Analyst 10/19/17 05/05/24 documented as of this encounter
--- OUTSIDE RECORDS SUMMARY | 2024-10-31 09:45 | XMS_ITS | Encounter Summary ---
Author Organization Healthcare Address [address] [place] [address] Care Team Providers Care Business Analytics Faculty Member Name Role Phone Joshua Urban MD Primary Care Provider [phone] Encounter Details Date Type Department Care Team [...] any time in the past 12 m [facility], were you homeless or living in [...] drink first t michelet in the morning (EYE-SIGN OUT CLERK) to steady your nerves or to get rid of a hangover? 0 09/26/2022 CAGE Questionnaire Score 0 023 Utilities Answer Date Recorded In the past 12 months has e CDP, gas, oil, or water company threatened to [...] as of this encounter Care Teams Business Analytics Faculty Member Relationship Specialty Start Date End Date Joshua Urban MD [address] [place] [address] PCP - General 06/27/20 documented as of this encounter
--- OUTSIDE RECORDS SUMMARY | 2024-10-31 09:45 | XMS_ITS | Encounter Summary ---
Author Organization Healthcare Address [address] [place] [address] Care Team Providers Care Silk Screen Printer Name Role Phone Joshua Urban MD Primary Care Provider [phone] Tri Singletary GOLF CART ATTENDANT Unavailable Unavailable Encounter Details Date Type Department Care Team ([facility] st Contact Info) Description 12/01/2019 Orders Only External Location [address] [place] [address] Provider, External Social History Tobacco Use Types [...] documented as of this encounter Care Teams Silk Screen Printer Relationship Specialty Start Date End Date Joshua rUban MD [address] [place] [address] PCP - General 06/27/20 Tri Singletary, [place] [address] Fire Chief Deputy Practical Nursing Teacher 10/19/17 05/05/24 documented as of this encounter
--- OUTSIDE RECORDS SUMMARY | 2024-10-31 09:45 | XMS_ITS | Clinical Summary ---
Author Organization [facility] Address [address] [place] [address] Care Team Providers Care Flight Engineer Performance Qualified Name Role Phone Joshua Urban MD Primary Care Provider [phone] Allergies Active Allergy Reactions Criticality Noted Date [...] BMI 28.37 Complicates care Current use of technician terminal and repeater anticoagulation 025 Overview (05/27/2024): Resume home eliquis [...] SGT ICU Tertiary, ITSS, AUDIT-C completed 05/24 Wzyxz-au-pevgqte kidney injury 05/23/2024 Overview (05/30/2024): Cr 2.92 [...] Description 09/24/2024 2:30 PM EDT Office Visit [facility] Medicine [address] [place] [address] Cornelio Burns MD Closed displaced intertrochanteric fracture of left femur with routine healing, subsequent encounter (Primary Dx); Closed fracture of hip, unspecified laterality, sequela 09/24/2024 2:24 PM EDT - 09/24/2024 11:59 PM EDT Hospital Encounter [place] [facility] [address], [address] [place] [address] Closed fracture of hip, unspecified laterality, sequela Discharge Disposition: Home or Self Care 09/24/2024 Travel 08/24/2024 Patient Outreach [place] [facility] [address] 2[address] [place] [address] Jm Al from Last 3 Months Immunizations Immunization Administration Dates Next Due Hep B, adult 12/04/2018,07/12/2018,05/30/2018 Influenza Vaccine, Quadrival ent, Adjuvanted 11/26/2022 Influenza, Unspecified 12/01/2016 Influenza, high-dose, quadrivalent 04/05/2024 Influenza, injectable, quadr ivalent, preservative free 11/26/2022,03/06/2021,06/04/2017,12/20 Pneumococcal Polysaccharide PPV23 12/26/2015,10/2014 Family History Medical History Relation Name Comments Conversions - Other Cousin alpha-1- antitrypsin deficiency Conversions - Other Father's Brother alph l-4-xculhdbjetb deficiency Conversions - Other Father's Sister alpha [...] any time in the past 12 m [facility], were you homeless or living in [...] first t michelet in the morning (EYE-MAINTENANCE JOB TITLES) to steady your nerves or to get [...] Date Last Done Comments [facility]-Depression Screening 1961 [facility]Medicare Annual Wellness (AWV) 1960 [facility]-Infant/Child/Adol SDOH Screenings [...] - Risk 60-74 years 1-dose series) 2021 FOBT 06/22/2024 06/23/2023 [facility]-Colorectal Cancer Screening 06/22/2024 [facility]-Diabetes: Hemoglobin A1C 08/22/202410/2024, 10/01/2022, 12/03/2019, Additional history exists [id number] Vaccine ( - 2023- season) 2024 [facility]-Influenza Vaccine (#1) 10/15/202404/05, 11/26/2022, 11/26/2022, Additional [...] this topic Medical Devices Implanted Type Area Rn Lab Device Identifier Shelf Expiration Date Model / Serial / Lot Screw 10.5x85mm [employer]ob[employer] Ti Lag Globus Med - Sna - [id number] Implanted:Qty: 1 on 05/24/2024 by Cornelio Burns MD at [facility] Screw Left: Femur [employer] [place] [employer]-[id number] 05/24/2025 [id number] / NA / NA Screw 5x35mm Ti [employer]obahn Lonnie Locking Globus Med - Sna - [id number] Implanted:Qty: 1 on 05/24/2024 by Cornelio Burns MD at [facility] Screw Left: Femur [employer] [place] [employer]-[id number] 05/24/2025 [id number] / NA / NA Ball-Tip Guidewire [id number] - [id number] Implanted:Qty: 1 on 05/24/2024 by Cornelio Burns MD at [facility] Left: Femur [employer] Inc-[id number] 04/19/2031 [id number] / / Nail Ti Trochanteric [id number] 125deg Lt - [id number] Implanted:Qty: 1 on 05/24/2024 by Cornelio Burns MD at [facility] Left: Femur [employer] Inc-[id number] 04/19/2034 [id number] / / Procedures Procedure Name [...] Francisco Boggs MD on 09/24/2024 2:54 PM Cornelio Burns MD IMG XR PROCEDURES Final Resul t * ED HIV 1/2 Antibody/Antigen Screen w/Reflex to HIV 1/2 Differentiation (05/23/2024 6:52 AM EDT) [facility] HIV 1 & 2 Antibody/Antigen Screen Non Reactive Non Reactive 05/23/2024 7:41 AM EDT [facility] Comment:Screening for HIV 1 & 2 antibodies, and P24 antigen is NONREACTIVE. No confirmatory testing is required. Blood Venous blood specimen / Unknown Venipuncture / Unknown 05/23/2024 6:52 AM EDT 05/23/2024 7:01 AM EDT Cornelio Burns MD LAB BLOOD ORDERABLES Final Re sult [facility] [address] [place] [place] [address] * (ABNORMAL) Hemoglobin A1c (05/23/2024 6:52 AM EDT) Hemoglobin A1c 7.8(H) <5.7 % 05/23/2024 5:13 PM EDT [facility] Blood Venous blood specimen / Unknown Venipuncture / Unknown 05/23/2024 6:52 AM EDT 05/23/2024 6:54 AM EDT Narrative [facility] - 05/23/2024 5:13 PM EDT HA1C Interpretive Data: Diagnosis of Diabetes: Diabetic > or = 6.5% Pre-diabetic 5.7 to 6.4% Non-diabetic < or = 5.6% Glycemic Targets for Type I and Type II Diabetics: Non- Adults <7.0% Adults <6.0% Children and Adolescents <7.5% Source: [place] Diabetes Association. Standards of medical care in diabetes,2017. Diabetes Care.2017:40 (suppl 1):S1-S135. us Bing Byers SYNTHETIC FILAMENT EXTRUDER LAB BLOOD ORDERABLES Final Result Performing Organization Address City/State/[facility] Co de Phone Number [facility] [address] [place] [address] * CT Chest wo IV Contrast (12/02/2019 5:12 AM EDT) Anatomical Region Laterality Modality Chest Computed Tomogra phy Narrative 12/02/2019 6:25 AM EDT REQUESTING PHYSICIAN: BRIAN BAILEY REASON FOR EXAMINATION/PROCEDURE: RAD PDP:Y * Fall, EXAMINATION / PROCEDURE: CT Chest WO IVCON Dec 02 2019 05:12; CT Abdomen & Pelvis WO IVCON [...] on Dec 02 2019 6:24A Transcribed by: [facility]ade on Dec 02 2019 5:43A Dictated by: [...] the final edited report. Verified by: CAMMY VASUQEZ M.D. on Dec 02 2019 6:24A Transcribed [...] 9:34 AM 05/24/2024 10:01 AM Care Teams Flight Engineer Performance Qualified Relationship Specialty Start Date End Date Joshua Urban MD [address] [place] [address] PCP - General 06/27/20
--- OUTSIDE RECORDS SUMMARY | 2024-10-31 09:45 | XMS_ITS | Clinical Summary ---
Author Organization [facility] Address [address] [place] [address] Phone Care Team Providers Care Spear Fisher Name Role Phone Unavailable Primary Care Provider [...] COVID-19 Vaccine (1 - 2023-2 5 season) 2024 Influenza Vaccine (#1) 2024 Hepatitis B Vaccine Aged Out No longe r eligible based on patient's age to complete this topic Meningococcal B Vaccine Aged Out No l onger eligible based on patient's age to complete this topic Insurance [place] PART A AND B
== END 2024-10-31 23:59 | disposition home or self-care (01) ==
LOC: LAB.DROPOF 09:43
PROVIDERS: PCP Nurse Practitioner Family; Visit Provider Nurse Practitioner Family
DX: J96.10 Chronic respiratory failure, unspecified whether with hypoxia or hypercapnia (principal)
CPT/HCPCS: 87070; 87077; 87205

== ENCOUNTER → 2024-11-14 10:53 | Outpatient (CLI) | payer MEDICARE, MEDICAID, SELFPAY ==
--- OUTSIDE RECORDS SUMMARY | 2024-09-24 14:24 | XMS_ITS | Encounter Summary ---
Author Organization Healthcare Address [address] [place] [address] Care Team Providers Care Software Database Architect Name Role Phone Joshua Urban MD Primary Care Provider [phone] Encounter Details Date Type Department Care Team (Latest Contact Info) Description 09/24/2024 2:24 PM EDT - 09/24/2024 11:59 PM EDT [facility] [address], [address] [place] [address] Closed fracture of hip, unspecified laterality, sequela Discharge Disposition: Home or Self Care Social History Tobacco Use Types Packs/Day Years Used Date Smoking Tobacco: Every Day Cigarettes 1 50.7 Started: 1974 Passive Smoke Exposure: Current Smokeless [...] any time in the past 12 m [facility], were you homeless or living [...] drink first t michelet in the 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) to steady your nerves or to get [...] as of this encounter Plan of Treatment Not on file documented as of this encounter Procedures Procedure Name Priority Date/Time Associated Diagnosis Comments XR HIP LEFT 2 OR 3 VIEWS Routine 09/24/2024 2:39 PM EDT Closed fracture of hip, unspecified laterality, sequela documented in this encounter Results * XR Hip Left 2 or 3 Views (09/24/2024 2:39 PM EDT) Anatomical Region Laterality Modality Lower Extremities, Hip Left Digital R adiography Impressions 09/24/2024 2:54 PM EDT Short antegrade femoral nail in place spanning a proximal femoral fracture in similar alignment. Mild lucency around the femoral neck screw. This could be related to demineralization. Attention on follow-up examination recommended. CRITICAL RESULT: No. COMMUNICATION: Per this written report. Drafted by Francisco Boggs MD on 09/24/2024 2:54 PM Final report signed by Francisco Boggs MD on 09/24/2024 2:54 PM Narrative 09/24/2024 2:54 PM EDT CLINICAL INDICATION: pain TECHNIQUE: XR HIP LEFT 2 OR 3 VIEWS COMPARISON: 07/16/2024 FINDINGS: Antegrade femoral nail is seen spanning a healing proximal femoral fracture which is in similar alignment.. Mild lucency is seen around the femoral neck screw. Demineralization is noted. Vascular calcifications. Procedure Note Francisco Boggs MD - 09/24/2024 CLINICAL INDICATION: pain TECHNIQUE: XR HIP LEFT 2 OR 3 VIEWS COMPARISON: 07/16/2024 FINDINGS: Antegrade femoral nail is seen spanning a healing proximal femoralfracture which is in similar alignment.. Mild lucency is seen around thefemoral neck screw. Demineralization is noted. Vascular calcifications. IMPRESSION: Short antegrade femoral nail in place spanning a proximal femoral fracturein similar alignment. Mild lucency around the femoral neck screw. Thiscould be related to demineralization. Attention on follow-up examinationrecommended. CRITICAL RESULT: No. COMMUNICATION: Per this written report. Drafted by Francisco Boggs MD on 09/24/2024 2:54 PM Final report signed by Francisco Boggs MD on 09/24/2024 2:54 PM us Cornelio Burns MD IMG XR PROCEDURES Final Resul t documented in this encounter Visit Diagnoses Diagnosis Closed fracture of hip, unspecified laterality, sequela documented in this encounter Additional Health Concerns Assessment Noted Time A fall risk assessment has been complete d for the patient 09/24/2024 2:20 PM EDT A Body Mass Index follow-up plan has been documented for the patient 09/24/2024 3:08 PM EDT documented as of this encounter Care Teams Software Database Architect Relationship Specialty Start Date End Date Joshua Urban MD [address] [place] [address] PCP - General 06/27/20 documented as of this encounter
--- OUTSIDE RECORDS SUMMARY | 2024-09-24 14:30 | XMS_ITS | Encounter Summary ---
Author Organization Healthcare Address [address] [place] [address] Care Team Providers Care Arbor Press Operator Name Role Phone Joshua Urban MD Primary Care Provider [phone] Reason for Visit * Reason Comments Follow-up Encounter Details Date Type Department Care Team (Latest Contact Info) Description 09/24/2024 2:30 PM EDT Office Visit [facility] Orthopaedic Surgery & Sports Medicine [address] [place] [address] Cornelio Burns MD [address] [place] [address] Closed displaced intertrochanteric fracture of left femur with routine healing, subsequent encounter (Primary Dx); Closed fracture of hip, unspecified laterality, sequela Social History Tobacco Use Types Packs/Day Years [...] any time in the past 12 m [facility], were you homeless or [...] drink first t michelet in the morning (EYE-SLATE TRIMMER) to steady your nerves or to get rid of a hangover? 0 09/26/2022 CAGE Questionnaire Score 0 023 Utilities Answer Date Recorded In the past 12 months has [employer], gas, oil, or water [employer] threatened to shut off services in your home? No 05/24/2024 Comments No Sex and Gender Information Value Date Recorded Sex Assigned at Not on file Legal Sex Female 7:35 PM EDT Gender Identity Not on file Sexual Orientation Not on file documented as of this encounter Last Filed Vital Signs Vital Sign Reading Time Taken Comments Blood Pressure 105/69 09/24/2024 2:20 PM EDT Pulse 77 09/24/2024 2:20 PM EDT Temperature 37.1 C (98.7 F) 09/24/2024 2:20 PM EDT Respiratory Rate - - Oxygen Saturation 92% 09/24/2024 2:20 PM EDT Inhaled Oxygen Concentration - - Weight 82.1 kg (181 lb) 09/24/2024 2:20 PM EDT Height 165.1 cm (5' 5 ) 09/24/2024 2:20 PM EDT Body Mass Index 30.12 09/24/2024 2:20 PM EDT documented in this encounter Miscellaneous Notes * Progress Notes - Cornelio Burns MD - 09/24/2024 2:30 PM EDT HPI: Kassy Bartlett is a 64 y.o. female who is here today for follow up of her left intertrochanteric femur fracture treated by me with intramedullary nail on May 24, 2024. The patient denies any fevers/chills. Physical Assessment: Examination of the left lower extremity reveals wounds are well-healed with noerythema. The patient remains grossly neurovascularly intact to the distal extremity. XRAY: Two views of the left hip were obtained and interpreted by me today which show stable alignment of the proximal femur fracture. Assessment: Status Post intramedullary nail fixation of left intertrochanteric femur fracture Plan: The patient is doing well today, and radiographs were reviewed. The patient's weight bearing status will be weight-bearing as tolerated. She was given written orders for physical therapy at herfacility. From a fracture standpoint, she has healed and is instructed to follow up on an as-neededbasis. All questions were answered. documented in this encounter Plan of Treatment Not on file documented as of this encounter Visit Diagnoses Diagnosis Closed displaced intertrochanteric fracture of left femur with routine healing, subsequent encounter- Primary Closed fracture of hip, unspecified laterality, sequela documented in this encounter Additional Health Concerns Assessment Noted Time A fall risk assessment has been complete d for the patient 09/24/2024 2:20 PM EDT A Body Mass Index follow-up plan has been documented for the patient 09/24/2024 3:08 PM EDT documented as of this encounter Care Teams Arbor Press Operator Relationship Specialty Start Date End Date Joshua Urban MD [address] [place] [address] PCP - General 06/27/20 documented as of this encounter
--- OUTSIDE RECORDS SUMMARY | 2024-11-14 12:10 | XMS_ITS | Encounter Summary ---
Author Organization Healthcare Address [address] [place] [address] Care Team Providers Care Bessemer Converter Operator Name Role Phone Joshua Urban MD Primary Care Provider [phone] Tri Singletary RUBBER COMPOUNDER FORMULATOR Unavailable Unavailable Encounter Details Date Type Department Care Team ([facility] st Contact Info) Description 12/02/2019 Orders Only External Location [address] [place] [address] Provider, External Social History Tobacco Use Types [...] documented as of this encounter Care Teams Bessemer Converter Operator Relationship Specialty Start Date End Date Joshua Urban MD [address] [id number] PCP - General 06/27/20 Tri Singletary, [place] [address] Snubber Managing Principal 10/19/17 05/05/24 documented as of this encounter
--- OUTSIDE RECORDS SUMMARY | 2024-11-14 12:10 | XMS_ITS | Encounter Summary ---
Author Organization Healthcare Address [address] [place] [address] Care Team Providers Care Primary School Principal Name Role Phone Joshua Urban MD Primary Care Provider [phone] Tri Singletary RN LPN LVN Unavailable Unavailable Encounter Details Date Type Department Care Team ([facility] st Contact Info) Description 09/05/2017 Orders Only External Location [address] [place] [address] Provider, External Social History Tobacco Use Types [...] documented as of this encounter Care Teams Primary School Principal Relationship Specialty Start Date End Date Joshua Urban MD [address] [place] [address] PCP - General 06/27/20 Tri Singletary, [place] [address] Sea Air Land Officer Musculoskeletal Physiotherapist 10/19/17 05/05/24 documented as of this encounter
--- OUTSIDE RECORDS SUMMARY | 2024-11-14 12:10 | XMS_ITS | Encounter Summary ---
Author Organization Healthcare Address [address] [place] [address] Care Team Providers Care Urban Gardening Specialist Name Role Phone Joshua Urban MD Primary Care Provider [phone] Encounter Details Date Type Department Care Team [...] time in the past 12 m [facility], were you homeless or living in a [...] drink first t michelet in the morning (EYE-ORDAINED MINISTER) to steady your nerves or to get rid of a hangover? 0 09/26/2022 CAGE Questionnaire Score 0 023 Utilities Answer Date Recorded In the past 12 months has e [employer], gas, oil, or water company threatened to [...] documented as of this encounter Care Teams Urban Gardening Specialist Relationship Specialty Start Date End Date Joshua Urban MD [address] [place] [address] PCP - General 06/27/20 documented as of this encounter
--- OUTSIDE RECORDS SUMMARY | 2024-11-14 12:10 | XMS_ITS | Encounter Summary ---
Author Organization Healthcare Address [address] [place] [address] Care Team Providers Care Stone Setter Name Role Phone Joshua Urban MD Primary Care Provider [phone] Tri Singletary MANAGER RELIABILITY Unavailable Unavailable Encounter Details Date Type Department Care Team (Late st Contact Info) Description 10/23/2016 Orders Only External Location [address] [place] [address] Provider, External Social History Tobacco Use Types [...] documented as of this encounter Care Teams Stone Setter Relationship Specialty Start Date End Date Joshua Urban MD [address] [place], [place] [id number] PCP - General 06/27/20 Tri Singletary, [place] [address] Oil Distributor Plug Assembler 10/19/17 05/05/24 documented as of this encounter
--- OUTSIDE RECORDS SUMMARY | 2024-11-14 12:10 | XMS_ITS | Encounter Summary ---
Author Organization Healthcare Address [address] [place] [address] Care Team Providers Care Analytics Consultant Name Role Phone Joshua Urban MD Primary Care Provider [phone] Tri Singletary 3D SPECIALIST Unavailable Unavailable Encounter Details Date Type Department Care Team (Late st Contact Info) Description 01/03/2018 [facility] OTTR Encounter Historical OTTR [address] [place] [address] Larissa Pineda RN HOSP. SPECIAL DIAGNOSTIC FACILITIES [...] need a new referral from her primary jetting machine operator. Pt verbalized understanding. * Progress [...] or pulmonoligist- I did transfer pt to [facility] for follow up * Progress Notes - [...] to pt, referring MD, and saved to [facility]. * Progress Notes - Larissa Pineda - [...] questionnaires and map for ICE on 12/15 [id number] [phone] * Progress Notes - Wen Stiles [...] and map , and refer. MD letter [phone] * Progress Notes - Wen [...] ORDERABLES Final R esult Performing Organization Address [facility] Co de Phone Number EXTERNAL LAB * OTTR LAB RESULTS (MANUAL) (12/15/2017 11:47 AM EDT) Pathologist [facility] External FEV1/FVC (Pre) % 1.92 L EXTERNAL [...] documented as of this encounter Care Teams Analytics Consultant Relationship Specialty Start Date End Date Joshua Urban MD [address] [place] [address] PCP - General 06/27/20 Tri Singletary, [place] [address] Journalism Intern Electric Well Logging Operator 10/19/17 05/05/24 documented as of this encounter
--- OUTSIDE RECORDS SUMMARY | 2024-11-14 12:10 | XMS_ITS | Encounter Summary ---
Author Organization Healthcare Address [address] [place] [address] Care Team Providers Care Vascular Manager Name Role Phone Joshua Urban MD Primary Care Provider [phone] Tri Singletary CHAIRMAN CEO Unavailable Unavailable Encounter Details Date Type Department Care Team ([facility] st Contact Info) Description 12/16/2017 Orders Only External Location [address] [place] [address] Provider, External Social History Tobacco Use Types [...] documented as of this encounter Care Teams Vascular Manager Relationship Specialty Start Date End Date Joshua Urban MD [address] [place] [address] PCP - General 06/27/20 Tri Singletary, [place] [address] Real Estate Loan Processor Multimedia Assistant 10/19/17 05/05/24 documented as of this encounter
--- OUTSIDE RECORDS SUMMARY | 2024-11-14 12:10 | XMS_ITS | Encounter Summary ---
Author Organization Healthcare Address [address] [place] [address] Care Team Providers Care Assorter Laundry Name Role Phone Joshua Urban MD Primary Care Provider [phone] Tri Singletary WIRE TWISTING MACHINE OPERATOR Unavailable Unavailable Encounter Details Date Type Department Care Team ([facility] st Contact Info) Description 01/15/2018 Orders Only External Location [address] [place] [address] Provider, External Social History Tobacco Use Types [...] documented as of this encounter Care Teams Assorter Laundry Relationship Specialty Start Date End Date Joshua Urban MD [address] [place], [place] [id number] PCP - General 06/27/20 Tri Singletary, [place] [address] School Guard Nutrition Aide 10/19/17 05/05/24 documented as of this encounter
--- OUTSIDE RECORDS SUMMARY | 2024-11-14 12:10 | XMS_ITS | Encounter Summary ---
Author Organization Healthcare Address [address] [place] [address] Care Team Providers Care Conference Coordinator Name Role Phone Joshua Urban MD Primary Care Provider [phone] Tri Singletary RESEARCH CENTER DIRECTOR Unavailable Unavailable Encounter Details Date Type Department Care Team ([facility] st Contact Info) Description 12/01/2019 Orders Only External Location [address] [place] [address] Provider, External Social History Tobacco Use Types [...] documented as of this encounter Care Teams Conference Coordinator Relationship Specialty Start Date End Date Joshua Urban MD [address] [place] [address] PCP - General 06/27/20 Tri Singletary, [place] [address] Ammonia Box Operator Caustic Strength Inspector 10/19/17 05/05/24 documented as of this encounter
--- OUTSIDE RECORDS SUMMARY | 2024-11-14 12:10 | XMS_ITS | Encounter Summary ---
Author Organization Healthcare Address [address] [place] [address] Care Team Providers Care Silk Screen Operator Name Role Phone Joshua Urban MD Primary Care Provider [phone] Tri Singletary WOOD CUT ENGRAVER Unavailable Unavailable Encounter Details Date Type Department Care Team ([facility] st Contact Info) Description 06/12/2016 Orders Only External Location [address] [place] [address] Provider, External Social History Tobacco Use Types [...] of this encounter Care Teams Silk Screen Operator Relationship Specialty Start Date End Date Joshua Urban MD [address] [place], [place] [id number] PCP - General 06/27/20 Tri Singletary, [place] [address] Quick Technician Supervisor Cell Maintenance 10/19/17 05/05/24 documented as of this encounter
--- OUTSIDE RECORDS SUMMARY | 2024-11-14 12:10 | XMS_ITS | Encounter Summary ---
Author Organization Healthcare Address [address] [place] [address] Care Team Providers Care Microfiche Camera Operator Name Role Phone Joshua Urban MD Primary Care Provider [phone] Tri Singletary ICT BUSINESS DEVELOPMENT MANAGER Unavailable Unavailable Encounter Details Date Type Department Care Team ([facility] st Contact Info) Description 12/16/2017 Orders Only External Location [address] [place] [address] Provider, External Social History Tobacco Use Types [...] documented as of this encounter Care Teams Microfiche Camera Operator Relationship Specialty Start Date End Date Joshua Urban MD [address] [place], [place] [id number] PCP - General 06/27/20 Tri Singletary, ICT [place] [address] Block Engraver Receipt And Report Clerk 10/19/17 05/05/24 documented as of this encounter
--- OUTSIDE RECORDS SUMMARY | 2024-11-14 12:10 | XMS_ITS | Encounter Summary ---
Author Organization Healthcare Address [address] [place] [address] Care Team Providers Care Health Care Technician Name Role Phone Joshua Urban MD Primary Care Provider [phone] Tri Singletary RECOVERY ASSISTANT Unavailable Unavailable Encounter Details Date Type Department Care Team ([facility] st Contact Info) Description 12/01/2019 Orders Only External Location [address] [place] [address] Provider, External Social History Tobacco Use Types [...] documented as of this encounter Care Teams Health Care Technician Relationship Specialty Start Date End Date Joshua Urban MD [address] [place] [address] PCP - General 06/27/20 Tri Singletary, [place] [address] Gun Stock Checker Self Propelled Mining Machine Operator 10/19/17 05/05/24 documented as of this encounter
--- OUTSIDE RECORDS SUMMARY | 2024-11-14 12:10 | XMS_ITS | Encounter Summary ---
Author Organization Healthcare Address [address] [place] [address] Care Team Providers Care Jaw Skinner Name Role Phone Joshua Urban MD Primary Care Provider [phone] Tri Singletary HEAVY EQUIPMENT OPERATOR APPRENTICE Unavailable Unavailable Encounter Details Date Type Department Care Team ([facility] st Contact Info) Description 12/01/2019 Orders Only External Location [address] [place] [address] Provider, External Social History Tobacco Use Types [...] documented as of this encounter Care Teams Jaw Skinner Relationship Specialty Start Date End Date Joshua Urban MD [address] [place] [address] PCP - General 06/27/20 Tri Singletary, [place] [address] Cable Operator Mri Technologist 10/19/17 05/05/24 documented as of this encounter
--- OUTSIDE RECORDS SUMMARY | 2024-11-14 12:12 | XMS_ITS | Referral Summary ---
Author Organization [employer] ([place], [place], [place], [place]) Address [address] [place] [address] Care Team Providers Care Ceiling Insulation Blower Name Role Phone [facility], Provider Not In The System MD Primary [...] Do you speak a language other than Thai at ho ri? No 06/20/2023 Do you want help with [...] Plan of Treatment Not on file Insurance [facility]ICAID [place] Advance Directives For more information, please contact: [phone] * Full Code (Latest Code Status on File) Date Activated Date Inactivated Comments 06/19/2023 11:00 PM 06/30/2023 2:30 PM Care Teams Ceiling Insulation Blower Relationship Specialty Start Date End Date [facility], Provider Not In The System, [place] [address] PCP - General 06/20/23
--- OUTSIDE RECORDS SUMMARY | 2024-11-14 12:12 | XMS_ITS | Encounter Summary ---
Author Organization Healthcare Address [address] [place] [address] Care Team Providers Care Kitchen Worker Name Role Phone Joshua Urban MD Primary Care Provider [phone] Encounter Details Date Type Department Care Team (Late st Contact Info) Description 05/23/2024 Orders Only External Location [address] [place] [address] Provider, External Social History Tobacco Use Types [...] any time in the past 12 m [facility], were you homeless or living in [...] drink first t michelet in the morning (EYE-CIRCULAR STUFFER) to steady your nerves or to get [...] documented as of this encounter Care Teams Kitchen Worker Relationship Specialty Start Date End Date Joshua Urban MD [address] [place] [address] PCP - General 06/27/20 documented as of this encounter
--- OUTSIDE RECORDS SUMMARY | 2024-11-14 12:12 | XMS_ITS | Clinical Summary ---
Author Organization [facility] Address [address] [place] [address] Care Team Providers Care Metal Fitters [employer] Machinists Name Role Phone Joshua Urban MD Primary Care Provider [phone] Allergies Active Allergy Reactions Criticality Noted Date [...] BMI 28.37 Complicates care Current use of nursing home anticoagulation 025 Overview (05/27/2024): Resume home eliquis upon discharge Anxiety and depression 05/26/2024 Overview (05/26/2024): Resume [...] SGT ICU Tertiary, ITSS, AUDIT-C completed 05/24 Frailty 05/23/2024 Overview (05/23/2024): Weak and wheelchair [...] Closed fracture of left hip 05/28/2024 05/30/2024 Acute respiratory failure 05/26/2024 Overview (05/30/2024): Wean O2 as able 1L NC Fall 05/23/2024 05/23/2024 Lfudg-va-bvstprm kidney injury 05/23/2024 11/04/2024 Overview (05/30/2024): Cr 2.92 on arrival, Baseline ~ 2.4 Avoid nephrotoxic agents as able and renally dose medications IVF resuscitation as needed Suicide attempt by sapna thomas, initial encounter 09/25/2022 06/01/2024 Nicotine dependence 09/25/2022 06/02/19 Restless legs syndrome 09/25/202206/01 Sleep apnea, obstructive 09/25/2022 TIA (transient ischemic attack) 09/25/2022 06/01/2024 Hyperglycemia 09/25/2022 09/30/2022 CKD (chronic kidney disease) stage 2, GFR 60-89 ml/min 02/23/2021 09/25/2022 Overdose of undetermined intent 09/30/2022 Encounters Date Type Department Care Team Description 09/24/2024 2:30 PM EDT Office Visit [facility] [address], [address] [place] [address] Cornelio Burns MD Closed displaced intertrochanteric fracture of left femur with routine healing, subsequent encounter (Primary Dx); Closed fracture of hip, unspecified laterality, sequela 09/24/2024 2:24 PM EDT - 09/24/2024 11:59 PM EDT Hospital Encounter [facility] Radiology [address], [address] [place] [address] Closed fracture of hip, unspecified laterality, sequela Discharge Disposition: Home or Self Care 09/24/2024 Travel 08/24/2024 Patient Outreach [facility]ties [address], [address] [place] [address] Jm Al from Last 3 Months Immunizations Immunization Administration Dates Next Due Hep B, adult 12/04/2018,07/12/2018,05/30/2018 Influenza Vaccine, Quadrival ent, Adjuvanted 11/26/2022 Influenza, Unspecified 12/01/2016 Influenza, high-dose, quadrivalent 04/05/2024 Influenza, injectable, quadr ivalent, preservative free 11/26/2022,03/06/2021,06/04/2017,12/20 Pneumococcal Polysaccharide PPV23 12/26/2015,10/2014 Family History Medical History Relation Name Comments Conversions - Other Cousin alpha-1- antitrypsin deficiency Conversions - Other Father's Brother alph v-[id number] deficiency Conversions - Other Father's Sister alpha [...] any time in the past 12 m [facility], were you homeless or living in a [...] drink first t michelet in the morning (EYE-AUTOMOTIVE SERVICE MANAGER) to steady your nerves or to get rid of a hangover? 0 09/26/2022 CAGE Questionnaire Score 0 023 Utilities Answer Date Recorded In the past 12 months has th e [employer], gas, oil, or water company threatened to [...] A1C 08/22/202410/2024, 10/01/2022, 12/03/2019, Additional history exists [id number] Vaccine ( season) 2024 UKY-Influenza Vaccine (#1) 10/15/202404/05, 11/26/2022, [...] this topic Medical Devices Implanted Type Area Associate Professor Of Geography Device Identifier Shelf Expiration Date Model / Serial / Lot Screw 10.5x85mm Autobahn Ti Lag Globus Med - Sna - [id number] Implanted:Qty: 1 on 05/24/2024 by Cornelio Burns MD at [facility] Screw Left: Femur [employer]-[id number] 05/24/2025 [id number] / NA / NA Screw 5x35mm Ti Autobahn Lonnie Locking Globus Med - Sna - [id number] Implanted:Qty: 1 on 05/24/2024 by Cornelio Burns MD at [facility] Screw Left: Femur Memeo [employer]-[id number] 05/24/2025 [id number] / NA / NA Ball-Tip Guidewire [id number] - [id number] Implanted:Qty: 1 on 05/24/2024 by Cornelio Burns MD at [facility] Left: Femur Globus Medical Retewi [employer]-[id number] 04/19/2031 [id number] / / Nail Ti Trochanteric [id number] 125deg Lt - [id number] Implanted:Qty: 1 on 05/24/2024 by Cornelio Burns MD at [facility] Left: Femur Werckerus NPS [employer]-[id number] 04/19/2034 [id number] / / Procedures Procedure Name [...] sult [facility] [address] [place] [address] * (ABNORMAL) Hemoglobin A1c (05/23/2024 6:52 AM [...] Adults <6.0% Children and Adolescents <7.5% Source: [place] [employer]. Standards of medical care in diabetes,2017. Diabetes Care.2017:40 (suppl 1):S1-S135. us Bing Byers ADMINISTRATIVE ANALYST LAB BLOOD ORDERABLES Final Result [facility] [address] [id number] * CT Chest wo IV Contrast (12/02/2019 [...] on Dec 02 2019 6:24A Transcribed by: [facility] on Dec 02 2019 5:43A Dictated by: [...] 9:34 AM 05/24/2024 10:01 AM Care Teams Metal Fitters And Machinists Relationship Specialty Start Date End Date Joshua Urban MD [address] [place] [address] PCP - General 06/27/20
--- OUTSIDE RECORDS SUMMARY | 2024-11-14 12:12 | XMS_ITS | Data Portability ---
Author Organization [facility] JENNIFER [facility] & [place] [facility] Address [address] [place] [address] Assessment No assessment recorded. Plan of Treatment [...] Address Organization Details Recorded Time Diabetes mellitus 71496993 Active 2023 Mai Liriano null, [facility] - [facility] - [place] & [place] 4 07:30:59 Clostridium difficile colitis 650173980 Active 2023 Mai Liriano null, [facility] - [facility] - [place] & [place] 4 07:31:08 Compression fracture Active 2023 Mai Liriano null, [facility] - [facility] & [place] 4 07:31:21 Chronic kidney disease 149984836 Active 2023 Mai Liriano null, [facility] - [facility] - [facility] & [place] 4 07:31:30 Congestive heart failure 80180849 Active 2023 Mai Liriano null, [facility] - [facility] & [place] 4 07:31:43 Chronic obstructive pulmonary disease 36994540 Active 2023 Mai Liriano null, [facility] - [facility] & [place] 4 07:31:48 Problem Notes None recorded. Procedures Surgical History Date Name Laterality Status Provider Name and Address Organization Details Recorded Time appendectomy completed Marium RODRIGUEZ [facility] & [place] 02/14/2024 11:17:16 procedure on gallbladder completed Marium RODRIGUEZ [facility] & [place] 02/14/2024 11:17:24 Wrist arthroscopy completed Marium RODRIGUEZ [facility] & [place] 02/14/2024 11:17:31 procedure on lower leg completed Marium RODRIGUEZ [facility] & [place] 02/14/2024 11:18:15 procedure on lower leg completed Marium RODRIGUEZ - [place] & [place] 02/14/2024 11:18:18 tonsillectomy completed Marium RODRIGUEZ [facility] & [place] 02/14/2024 11:18:26 ligation of fallopian tube completed Marium RODRIGUEZ [facility] & [place] 02/14/2024 11:18:34 Imaging Results None recorded. Procedure Notes None recorded. Medical Equipment None Reported. Allergies Allergen ID Allergen Name Allergen Category Reaction Reaction Severity Criticality Documentation Date Start Date Code Code System Note Provider Name and Address Organization Details Recorded Time 132775 fluticaso ne / salmetero l medicatio n Not available Not available Not available 02/14/2024 71231 5 RxNorm POLLO Gonzalez [facility] & [place] 4 07:28:27 587315 aspirin medicatio n Not available Not available Not available 02/14/2024 1191 RxNorm POLLO Gonzalez [facility] & [place] 4 07:28:36 068183 Benadryl medicatio n Not available Not available Not available 02/14/2024 01851 7 RxNorm POLLO Gonzalez [facility] & [place] 4 07:28:42 465286 bupropion Not available Not available Not available Not available 02/14/2024 10887 RxNorm POLLO Goznalez [facility] & [place] 4 07:28:51 793398 Celebrex medicatio n Not available Not available Not available 02/14/2024 12021 7 RxNorm Mai maloney, [facility] - [facility] & [place] 4 07:28:57 363341 citalopra m medicatio n Not available Not available Not available 02/14/2024 2556 RxNorm Mai maloney, [place] - [facility] & [place] 4 07:29:03 070702 codeine medicatio n Not available Not available Not available 02/14/2024 2670 RxNorm Mai maloney, [place] - [facility] & [place] 4 07:29:09 324427 duloxetin e medicatio n Not available Not available Not available 02/14/2024 02227 RxNorm Mai maloney, [place] - [facility] & [place] 4 07:29:15 407619 erythromy jt medicatio n Not available Not available Not available 02/14/2024 4053 RxNorm Mai maloney, [place] - [facility] & [place] 4 07:29:24 688562 methocarb nneka medicatio n Not available Not available Not available 02/14/2024 6845 RxNorm Mai maloney, [place] - [facility] & [place] 4 07:29:33 335757 naproxen medicatio n Not available Not available Not available 02/14/2024 7258 RxNorm Mai maloney, [place] - [facility] & [place] 4 07:29:40 768335 pregabali n medicatio n Not available Not available Not available 02/14/2024 83731 2 RxNorm POLLO Gonzalez - [facility] & [place] 4 07:29:45 108867 Bactrim medicatio n Not available Not available Not available 02/14/2024 25227 9 RxNorm Mai maloney, [place] - [facility] & [place] 4 07:29:52 112358 Substance with sulfonami de structure and antibacte rial mechanism of action (substanc e) medicatio n Not available Not available Not available 02/14/2024 59621 8003 SNOMED POLLO Gonzalez [facility] & [place] 4 07:29:59 706488 terbutali ne medicatio n Not available Not available Not available 02/14/2024 28153 RxNorm POLLO Gonzalez [facility] & [place] 4 07:30:12 590923 tramadol medicatio n Not available Not available Not available 02/14/2024 70041 RxNorm POLLO Gonzalez [place] & [place] 4 07:30:18 794974 trimethop rim medicatio n Not available Not available Not available 02/14/2024 86561 RxNorm POLLO Gonzalez [facility] & [place] 4 07:30:38 Medications Name Sig Start Date [...] 4 67 /min 94 % 94 % 97429.7 7 g 124/62 mm[Hg] Marium Martin [place] - [facility] & [place] 4 11:16:51 Social History None recorded. Functional Status None recorded. Mental Status None recorded. Family History Nothing Reported. Medical History No medical history recorded. Gynecological HistoryNo gynecological history recorded. Obstetrics History GPAL:G 0 P 0 0 0 0 Past Encounters Encounter ID Performer Location Encounter Start Date Encounter Closed Date Diagnosis/Indication Diagnosis SNOMED-CT Code Diagnosis ICD10 Code Diagnosis IMO Codes Diagnosis Note [id number] BRENNA KAUR [facility] [address] [place] [address] 7 11/30/2021 11:21:42 11/30/2021 17:05:50 [id number] BRENNA KAUR [facility] [address] [place], [place] [address] 7 12/29/2021 12:00:34 12/29/2021 13:04:52 [id number] CATRACHO BUNCH [facility] [address] [place] [address] 7 01/01/2022 15:02:26 01/05/2022 12:08:39 [id number] BRENNA KAUR [facility] [address] [place] [address] 7 01/05/2022 15:56:35 01/06/2022 14:26:19 [id number] BRENNA KAUR [facility] [address] [place] [address] 7 01/13/2022 11:49:38 01/13/2022 14:03:48 [id number] [facility] [address] [place] [address] 01/21/2022 14:07:08 01/21/2022 15:03:54 [id number] [facility] [address] [place] [address] 01/27/2022 14:54:09 01/28/2022 12:07:06 [id number] MARK GHOTRA, [facility] Therapeut ic Intervent ion [address] [place] [address] 02/01/2022 11:42:01 02/01/2022 12:51:07 [id number] [facility] Inter[facility] [address] [place] [address] 02/01/2022 12:12:33 02/01/2022 13:03:12 [id number] MARK GHOTRA [facility] Therapeut ic Intervent ion [address] [place] [address] 02/17/2022 10:32:30 02/17/2022 11:05:37 [id number] FRAN GEORGE DUST MOP MAKER [facility] Therapeut ic Intervent ion [address] [place] [address] 02/17/2022 11:06:35 02/17/2022 13:21:44 [id number] Elizabeth Lisandra in, [facility] Infectiou s Disease -105 [address] [facility] [address] [place] [address] 02/14/2024 11:03:26 02/14/2024 11:43:51 Clostridioides difficile infection 022509307 A04.72 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 She received Fidaxomici n [...] Name 04/21/2024 1 [place] Kassy Bartlett [id number] Kassy Bartlett 02/14/2024 1 [place]MEDICARE REPLACEMENT HMO) [id number] Kassy Bartlett [id number] Kassy Bartlett 04/21/2024 2 MEDICAID-[facility] HEALTH CHOICES - FFS/TRADITION AL Kassy Bartlett [id number] Kassy Bartlett Notes Date Note Type Note Provider Name and Address Organization Details Recorded Time 02/14/2024 text/html ROS as noted in the HPI patient presents to clinic for hospital follow [...] denies any nausea or vomiting. Elizabeth Lyons, SECURITIES AND REAL ESTATE DIRECTOR [address] , [place], [address], [facility] - [place] & [place] 02/14/2024 11:29:54 OBGyn Episode No OBEpisode recorded.
--- OUTSIDE RECORDS SUMMARY | 2024-11-14 12:12 | XMS_ITS | Encounter Summary ---
Author Organization Healthcare Address [address] [place] [address] Care Team Providers Care Shaper And Presser Name Role Phone Joshua Urban MD Primary Care Provider [phone] Tri Singletary BARGEMAN Unavailable Unavailable Encounter Details Date Type Department Care Team (Late st Contact Info) Description 10/01/2022 Lab Requisition [facility] [address] [place] [address] Mitchel Ivey PA [address] [place] [place] [address] Routine general medical examination at [...] drink first t michelet in the morning (EYE-SANITATION WORKER CLEANING MACHINERY) to steady your nerves or to get [...] EDT Routine general medical examination at [facility] MANUAL DIFFERENTIAL Routine 10/01/2022 6:39 AM EDT Routine general medical examination at a [facility] facility ACUTE HEPATITIS PANEL Routine 10/01/2022 6:39 AM EDT Routine general medical examination at [facility] CBC WITH AUTO DIFFERENTIAL Routine 10/01/2022 6:39 AM EDT Routine general medical examination at [facility] HEMOGLOBIN A1C Routine 10/01/2022 6:39 AM EDT Routine general medical examination at a [facility] facility LIPID PROFILE, PLASMA Routine 10/01/2022 6:37 AM EDT Routine general medical examination at a [facility] facility COMPREHENSIVE METABOLIC PANEL, PLASMA Routine 10/01/2022 6:37 AM EDT Routine general medical examination at a [facility] facility documented in this encounter Results * Morphology (10/01/2022 6:39 AM EDT) RBC Morphology RBC Morphology Consistent with Indices and RDW LAB HEMATOLOGY METHOD 10/01/2022 10:17 AM EDT [facility] Platelet Estimate Platelet smear estimate consistent with automated count LAB HEMATOLOGY METHOD 10/01/2022 10:17 AM EDT [facility] Blood Venous blood specimen / Unknown Venipuncture / Unknown 10/01/2022 6:39 AM EDT 10/01/2022 7:43 AM EDT us Mitchel HOLLY LAB BLOOD ORDERABLES Final Resul t [facility] [address] [place] [address] * (ABNORMAL) Manual Differential (10/01/2022 6:39 AM [...] LAB HEMATOLOGY METHOD 10/01/2022 10:17 AM EDT [facility] Plasma Cells Absolute 10/01/2022 10:17 AM EDT [facility] Lymphoma Cells Absolute 10/01/2022 10:17 AM EDT [facility] Hairy Cells Absolute 10/01/2022 10:17 AM EDT [facility] Other Cells Absolute 10/01/2022 10:17 AM EDT [facility] Blood Venous blood specimen / Unknown Venipuncture / Unknown 10/01/2022 6:39 AM EDT 10/01/2022 7:43 AM EDT Mitchel HOLLY LAB BLOOD ORDERABLES Final Resul t [facility] [address] [place] [address] * (ABNORMAL) CBC and Differential (10/01/2022 6:39 AM EDT) [facility] WBC Count 11.58(H) 3.70 - 10.30 10*3/uL LAB HEMATOLOGY METHOD 10/01/2022 10:17 AM EDT [facility] RBC Count 4.62 3.90 - 5.20 10*6/uL LAB HEMATOLOGY METHOD 10/01/2022 10:17 AM EDT [facility] HGB 13.0 11.2 - 15.7 g/dL LAB HEMATOLOGY METHOD 10/01/2022 10:17 AM EDT [facility] HCT 41.1 34.0 - 45.0 % LAB HEMATOLOGY METHOD 10/01/2022 10:17 AM EDT [facility] Platelet Count 299 155 - 369 10*3/uL LAB HEMATOLOGY METHOD 10/01/2022 10:17 AM EDT [facility] MCV 89 79 - 98 fL LAB HEMATOLOGY METHOD 10/01/2022 10:17 AM EDT [facility] MCH 28.1 26.0 - 32.0 pg LAB HEMATOLOGY METHOD 10/01/2022 10:17 AM EDT [facility] MCHC 31.6 30.7 - 35.5 g/dL LAB HEMATOLOGY METHOD 10/01/2022 10:17 AM EDT [facility] RDW 14.6(H) 11.5 - 14.5 % LAB HEMATOLOGY METHOD 10/01/2022 10:17 AM EDT [facility] MPV 10.0 8.8 - 12.5 fL LAB HEMATOLOGY METHOD 10/01/2022 10:17 AM EDT [facility] nRBC 0.0 <=0.0 per 100 WBCs LAB HEMATOLOGY METHOD 10/01/2022 10:17 AM EDT [facility] Differential Type Manual LAB HEMATOLOGY METHOD 10/01/2022 10:17 AM EDT [facility] Blood Venous blood specimen / Unknown Venipuncture / Unknown 10/01/2022 6:39 AM EDT 10/01/2022 7:43 AM EDT [facility] - 10/01/2022 10:17 AM EDT [...] HOLLY LAB BLOOD ORDERABLES Final Resul t [facility] [address] [place] [address] * (ABNORMAL) Hemoglobin A1c (10/01/2022 6:39 AM [...] Adults <6.0% Children and Adolescents <7.5% Source: [place] Diabetes [employer]. Standards of medical care in diabetes,2017. Diabetes Care.2017:40 (suppl 1):S1-S135. HbA1c assay performed by an ion-exchange chromatography method that is certified traceable to the DCCT. Mitchel HOLLY LAB BLOOD ORDERABLES Final Resul t Performing Organization Address [facility] de Phone Number [facility] [address] [place] [address] * Hepatitis panel, acute (10/01/2022 6:39 AM EDT) Hepatitis B Surf Antigen Negative Negative 10/01/2022 11:42 AM EDT [facility] Hepatitis A Antibody IgM Negative [...] ORDERABLES Final Resul t [facility] [address] [place] [address] * (ABNORMAL) Lipid panel (10/01/2022 6:37 AM EDT) Cholesterol, Plasma 219(H) <200 mg/dL 10/01/2022 10:12 AM EDT [facility] Comment: Cholesterol Reference Range (age >17 years): Desirable <200 mg/dL Borderline 200 to 239 mg/dL Undesirable >239 mg/dL HDL 82 >=50 mg/dL 10/01/2022 10:12 AM EDT [facility] Comment: HDL Cholesterol Reference Ranges (age [...] 12 hours? Unknown 10/01/2022 10:12 AM EDT [facility] Blood Venous blood specimen / Unknown Venipuncture / Unknown 10/01/2022 6:37 AM EDT 10/01/2022 7:49 AM EDT us Mitchel HOLLY LAB BLOOD ORDERABLES Final Resul t [facility] [address] [place] [address] * (ABNORMAL) Comprehensive metabolic panel (10/01/2022 6:37 AM EDT) [facility] Glucose, Plasma 364(H) 74 - 99 mg/dL 10/01/2022 10:12 AM EDT [facility] BUN, Plasma 43(H) 8 - 23 mg/dL 10/01/2022 10:12 AM EDT [facility] Creatinine, Plasma 1.02 0.60 - 1.10 mg/dL 10/01/2022 10:12 AM EDT [facility] BUN/Creatinine Ratio 42 10/01/2022 10:12 AM EDT [facility] Sodium, Plasma 140 136 - 145 mmol/L 10/01/2022 10:12 AM EDT [facility] Potassium, Plasma 5.0(H) 3.7 - 4.8 mmol/L 10/01/2022 10:12 AM EDT [facility] Chloride, Plasma 107 97 - 107 mmol/L 10/01/2022 10:12 AM EDT [facility] CO2, Plasma 27 22 - 29 mmol/L 10/01/2022 10:12 AM EDT [facility] Anion Gap 6 6 - 16 mmol/L 10/01/2022 10:12 AM EDT [facility] Total Calcium, Plasma 9.8 8.9 - 10.2 mg/dL 10/01/2022 10:12 AM EDT [facility] Total Protein 6.5 6.3 - 7.9 g/dL 10/01/2022 10:12 AM EDT [facility] Albumin, Plasma 3.3(L) 3.5 - 5.2 g/dL 10/01/2022 10:12 AM EDT [facility] AST, Plasma 67(H) 9 - 36 U/L 10/01/2022 10:12 AM EDT [facility] ALT, Plasma 67(H) 8 - 33 U/L 10/01/2022 10:12 AM EDT [facility] Alkaline Phosphatase, Plasma 103 46 - 142 U/L 10/01/2022 10:12 AM EDT [facility] Total Bilirubin, Plasma 0.3 0.2 - 1.1 mg/dL 10/01/2022 10:12 AM EDT [facility] eGFRcr 62.7 mL/min/1.7 3m*2 10/01/2022 10:12 AM EDT [facility] Comment:Reported eGFRcr in m L/min/1.73m2 is based the CKD-EPI 2020 equation that does not use a race coefficient. Blood Venous blood specimen / Unknown Venipuncture / Unknown 10/01/2022 6:37 AM EDT 10/01/2022 7:49 AM EDT us Mitchel HOLLY LAB BLOOD ORDERABLES Final Resul t [facility] [address] [place] [address] documented in this encounter Visit Diagnoses Diagnosis Routine general medical examination at a health care facility documented in this encounter Care Teams Shaper And Presser Relationship Specialty Start Date End Date Joshua Urban MD [address] [place] [address] PCP - General 06/27/20 Tri Singletary, [place] [address] Planning Aide Group Reservations Coordinator 10/19/17 05/05/24 documented as of this encounter
== END ==
LOC: SL 10:55
PROVIDERS: PCP Internal Medicine Adolescent Medicine; Visit Provider Internal Medicine Adolescent Medicine
DX: J44.9 Chronic obstructive pulmonary disease, unspecified (principal)

== ENCOUNTER 2024-12-03 16:11 | Outpatient (CLI) | payer MEDICARE, MEDICAID, SELFPAY ==
--- OUTSIDE RECORDS SUMMARY | 2024-12-03 16:17 | XMS_ITS | Encounter Summary ---
Author Organization Healthcare Address [address] [place] [address] Care Team Providers Care Workforce Specialist Name Role Phone Joshua Urban MD Primary Care Provider [phone] Tri Singletary PICKER MACHINE OPERATOR Unavailable Unavailable Encounter Details Date Type Department Care Team ([facility] st Contact Info) Description 12/16/2017 Orders Only External Location [address] [place] [address] Provider, External Social History Tobacco Use Types [...] documented as of this encounter Care Teams Workforce Specialist Relationship Specialty Start Date End Date Joshua Urban MD [address] [place], [place] [id number] PCP - General 06/27/20 Tri Singletary, [place] [address] Boat Builder Cruise Coordinator 10/19/17 05/05/24 documented as of this encounter
--- OUTSIDE RECORDS SUMMARY | 2024-12-03 16:17 | XMS_ITS | Encounter Summary ---
Author Organization Healthcare Address [address] [place] [address] Care Team Providers Care Refrigeration Houseman Name Role Phone Joshua Urban MD Primary Care Provider [phone] Tri Singletary PRODUCTION CONTROL TECHNOLOGIST Unavailable Unavailable Encounter Details Date Type Department Care Team (Late st Contact Info) Description 01/03/2018 [facility] Encounter Historical OTTR [address] [place] [address] Larissa Pineda RN HOSP. SPECIAL DIAGNOSTIC FACILITIES [...] need a new referral from her primary net coordinator. Pt verbalized understanding. * Progress Notes - [...] I did transfer pt to [facility] for follow up * Progress Notes [...] to pt, referring MD, and saved to [facility]. * Progress Notes - Larissa [...] questionnaires and map for ICE on 12/15 [id number] * Progress Notes - Wen Stiles [...] and map , and refer. MD letter [phone] * Progress Notes - Wen Stiles [...] ORDERABLES Final R esult Performing Organization Address [facility] Co de Phone Number EXTERNAL LAB * OTTR LAB RESULTS (MANUAL) (12/15/2017 11:47 AM EDT) Pathologist [facility] External FEV1/FVC (Pre) % 1.92 L EXTERNAL [...] documented as of this encounter Care Teams Refrigeration Houseman Relationship Specialty Start Date End Date Joshua Urban MD [address] [place] [address] PCP - General 06/27/20 Tri Singletary, [place] [address] Automobile Club Travel Counselor Cath Lab Radiological Technologist 10/19/17 05/05/24 documented as of this encounter
--- OUTSIDE RECORDS SUMMARY | 2024-12-03 16:17 | XMS_ITS | Encounter Summary ---
Author Organization Healthcare Address [address] [place] [address] Care Team Providers Care Fire Alarm Mechanic Name Role Phone Joshua Urban MD Primary Care Provider [phone] Tri Singletary DUMPING MACHINE OPERATOR Unavailable Unavailable Encounter Details Date Type Department Care Team ([facility] st Contact Info) Description 12/16/2017 Orders Only External Location [address] [place] [address] Provider, External Social History Tobacco Use Types [...] documented as of this encounter Care Teams Fire Alarm Mechanic Relationship Specialty Start Date End Date Joshua Urban MD [address] [place] [address] PCP - General 06/27/20 Tri Singletary, [place] [address] Drier Home Visitor 10/19/17 05/05/24 documented as of this encounter
--- OUTSIDE RECORDS SUMMARY | 2024-12-03 16:17 | XMS_ITS | Encounter Summary ---
Author Organization Healthcare Address [address] [place] [address] Care Team Providers Care Recycler Forklift Driver Truck Driver Name Role Phone Joshua Urban MD Primary Care Provider [phone] Tri Singletary CONFERENCE INTERPRETER Unavailable Unavailable Encounter Details Date Type Department Care Team ([facility] st Contact Info) Description 01/15/2018 Orders Only External Location [address] [place] [address] Provider, External Social History Tobacco Use Types [...] documented as of this encounter Care Teams Recycler Forklift Driver Truck Driver Relationship Specialty Start Date End Date Joshua Urban MD [address] [place], [place] [id number] PCP - General 06/27/20 Tri Singletary, [place] [address] Nutritionist Public Health Front End Application Developer 10/19/17 05/05/24 documented as of this encounter
--- OUTSIDE RECORDS SUMMARY | 2024-12-03 16:18 | XMS_ITS | Encounter Summary ---
Author Organization Healthcare Address [address] [place] [address] Care Team Providers Care Respooler Name Role Phone Joshua Urban MD Primary Care Provider [phone] Encounter Details Date Type Department Care Team (Late st Contact Info) Description 05/23/2024 Orders Only External Location [address] [place] [address] Provider, External Social History Tobacco Use Types Packs/Day Years Used Date Smoking Tobacco: Every Day Cigarettes 1 50.8 Started: 1973 Passive Smoke Exposure: Current Smokeless [...] drink first t michelet in the morning (EYE-REAL ESTATE ADMINISTRATIVE ASSISTANT) to steady your nerves or to [...] documented as of this encounter Care Teams Respooler Relationship Specialty Start Date End Date Joshua Urban MD [address] [place] [address] PCP - General 06/27/20 documented as of this encounter
--- OUTSIDE RECORDS SUMMARY | 2024-12-03 16:18 | XMS_ITS | Encounter Summary ---
Author Organization Healthcare Address [address] [place] [address] Care Team Providers Care Flatwork Supervisor Name Role Phone Joshua Urban MD Primary Care Provider [phone] Tri Singletary LOCK AND DAM EQUIPMENT REPAIRER Unavailable Unavailable Encounter Details Date Type Department Care Team ([facility] st Contact Info) Description 06/12/2016 Orders Only External Location [address] [place] [address] Provider, External Social History Tobacco Use Types [...] documented as of this encounter Care Teams Flatwork Supervisor Relationship Specialty Start Date End Date Joshua Urban MD [address] [place], [place] [id number] PCP - General 06/27/20 Tri Singletary, [employer] [place] [address] Neurological Surgery Teacher Solutions Analyst 10/19/17 05/05/24 documented as of this encounter
--- OUTSIDE RECORDS SUMMARY | 2024-12-03 16:19 | XMS_ITS | Encounter Summary ---
Author Organization Healthcare Address [address] [place] [address] Care Team Providers Care Trench Digger Helper Name Role Phone Joshua Urban MD Primary Care Provider [phone] Tri Singletary HOME EXTENSION AGENT Unavailable Unavailable Encounter Details Date Type Department Care Team ([facility] st Contact Info) Description 12/02/2019 Orders Only External Location [address] [place] [address] Provider, External Social History Tobacco Use Types [...] documented as of this encounter Care Teams Trench Digger Helper Relationship Specialty Start Date End Date Joshua Urban MD [address] [place] [id number] PCP - General 06/27/20 Tri Singletary, [place] [address] Transverse Abdominal Muscle Nurse Womens Health Nurse Practitioner 10/19/17 05/05/24 documented as of this encounter
--- OUTSIDE RECORDS SUMMARY | 2024-12-03 16:19 | XMS_ITS | Encounter Summary ---
Author Organization Healthcare Address [address] [place] [address] Care Team Providers Care Cafe Associate Name Role Phone Joshua Urban MD Primary Care Provider [phone] Tri Singletary GEOMETRY PROFESSOR Unavailable Unavailable Encounter Details Date Type Department Care Team ([facility] st Contact Info) Description 12/01/2019 Orders Only External Location [address] [place] [address] Provider, External Social History Tobacco Use Types [...] documented as of this encounter Care Teams Cafe Associate Relationship Specialty Start Date End Date Joshua Urban MD [address] [place] [address] PCP - General 06/27/20 Tri Singletary, [place] [address] Metalsmith Helper Equal Opportunity Specialist 10/19/17 05/05/24 documented as of this encounter
--- OUTSIDE RECORDS SUMMARY | 2024-12-03 16:19 | XMS_ITS | Encounter Summary ---
Author Organization Healthcare Address [address] [place] [address] Care Team Providers Care Laundromat Worker Name Role Phone Joshua Urban MD Primary Care Provider [phone] Tri Singletary WEB APPLICATIONS PROGRAMMER Unavailable Unavailable Encounter Details Date Type Department Care Team (Late st Contact Info) Description 10/01/2022 Lab Requisition [facility] [address] [place] [address] Mitchel Ivey PA [address] [place] [address] Routine general medical examination at [...] drink first t michelet in the morning (EYE-BAG PATCHER) to steady your nerves or to get [...] EDT Routine general medical examination at a [facility] facility MANUAL DIFFERENTIAL Routine 10/01/2022 6:39 AM EDT Routine general medical examination at a [facility] ACUTE HEPATITIS PANEL Routine 10/01/2022 6:39 AM EDT Routine general medical examination at [facility] CBC WITH AUTO DIFFERENTIAL Routine 10/01/2022 6:39 AM EDT Routine general medical examination at [facility] HEMOGLOBIN A1C Routine 10/01/2022 6:39 AM EDT Routine general medical examination at a [facility] facility LIPID PROFILE, PLASMA Routine 10/01/2022 6:37 AM EDT Routine general medical examination at a [facility] facility COMPREHENSIVE METABOLIC PANEL, PLASMA Routine 10/01/2022 6:37 AM EDT Routine general medical examination at a [facility] facility documented in this encounter Results * Morphology (10/01/2022 6:39 AM EDT) RBC Morphology RBC Morphology Consistent with Indices and RDW LAB HEMATOLOGY METHOD 10/01/2022 10:17 AM EDT [facility] Platelet Estimate Platelet smear estimate consistent with automated count LAB HEMATOLOGY METHOD 10/01/2022 10:17 AM EDT [facility] Blood Venous blood specimen / Unknown Venipuncture / Unknown 10/01/2022 6:39 AM EDT 10/01/2022 7:43 AM EDT us Mitchel [facility] LAB BLOOD ORDERABLES Final Resul t [facility] [address] [place] [address] * (ABNORMAL) Manual Differential (10/01/2022 6:39 AM [...] HEMATOLOGY METHOD 10/01/2022 10:17 AM EDT [facility] Plasma Cells Absolute 10/01/2022 10:17 AM EDT [facility] Lymphoma Cells Absolute 10/01/2022 10:17 AM EDT [facility] Hairy Cells Absolute 10/01/2022 10:17 AM EDT [facility] Other Cells Absolute 10/01/2022 10:17 AM EDT [facility] Blood Venous blood specimen / Unknown Venipuncture / Unknown 10/01/2022 6:39 AM EDT 10/01/2022 7:43 AM EDT [facility] LAB BLOOD ORDERABLES Final Resul t [facility] [address] [place] [address] * (ABNORMAL) CBC and Differential (10/01/2022 6:39 AM EDT) [facility] WBC Count 11.58(H) 3.70 - 10.30 10*3/uL LAB HEMATOLOGY METHOD 10/01/2022 10:17 AM EDT [facility] RBC Count 4.62 3.90 - 5.20 10*6/uL LAB HEMATOLOGY METHOD 10/01/2022 10:17 AM EDT [facility] HGB 13.0 11.2 - 15.7 g/dL LAB HEMATOLOGY METHOD 10/01/2022 10:17 AM EDT [facility] HCT 41.1 34.0 - 45.0 % LAB HEMATOLOGY METHOD 10/01/2022 10:17 AM EDT [facility] Platelet Count 299 155 - 369 10*3/uL LAB HEMATOLOGY METHOD 10/01/2022 10:17 AM EDT [facility] MCV 89 79 - 98 fL LAB HEMATOLOGY METHOD 10/01/2022 10:17 AM EDT [facility] MCH 28.1 26.0 - 32.0 pg LAB HEMATOLOGY METHOD 10/01/2022 10:17 AM EDT [facility] MCHC 31.6 30.7 - 35.5 g/dL LAB HEMATOLOGY METHOD 10/01/2022 10:17 AM EDT [facility] RDW 14.6(H) 11.5 - 14.5 % LAB HEMATOLOGY METHOD 10/01/2022 10:17 AM EDT [facility] MPV 10.0 8.8 - 12.5 fL LAB HEMATOLOGY METHOD 10/01/2022 10:17 AM EDT [facility] nRBC 0.0 <=0.0 per 100 WBCs LAB HEMATOLOGY METHOD 10/01/2022 10:17 AM EDT [facility] Differential Type Manual LAB HEMATOLOGY METHOD 10/01/2022 10:17 AM EDT [facility] Blood Venous blood specimen / Unknown Venipuncture / Unknown 10/01/2022 6:39 AM EDT 10/01/2022 7:43 AM EDT [facility] LAB - 10/01/2022 10:17 AM EDT [...] LAB BLOOD ORDERABLES Final Resul t [facility] [address] [place] [address] * (ABNORMAL) Hemoglobin A1c (10/01/2022 6:39 AM [...] Adults <6.0% Children and Adolescents <7.5% Source: [place] [employer]. Standards of medical care in diabetes,2017. Diabetes Care.2017:40 (suppl 1):S1-S135. HbA1c assay performed by an ion-exchange chromatography method that is certified traceable to the DCCT. Mitchel HOLLY LAB BLOOD ORDERABLES Final Resul t Performing Organization Address [facility] de Phone Number [facility] [address] [place] [address] * Hepatitis panel, acute (10/01/2022 6:39 AM EDT) Hepatitis B Surf Antigen Negative Negative 10/01/2022 11:42 AM EDT [facility] Hepatitis A Antibody IgM Negative Negative [...] ORDERABLES Final Resul t [facility] [address] [place] [address] * (ABNORMAL) Lipid panel (10/01/2022 6:37 AM EDT) Cholesterol, Plasma 219(H) <200 mg/dL 10/01/2022 10:12 AM EDT [facility] Comment: Cholesterol Reference Range (age >17 years): Desirable <200 mg/dL Borderline 200 to 239 mg/dL Undesirable >239 mg/dL HDL 82 >=50 mg/dL 10/01/2022 10:12 AM EDT [facility] Comment: HDL Cholesterol Reference Ranges (age [...] 12 hours? Unknown 10/01/2022 10:12 AM EDT [facility] Blood Venous blood specimen / Unknown Venipuncture / Unknown 10/01/2022 6:37 AM EDT 10/01/2022 7:49 AM EDT us Mitchel HOLLY LAB BLOOD ORDERABLES Final Resul t [facility] [address] [place] [address] * (ABNORMAL) Comprehensive metabolic panel (10/01/2022 6:37 AM EDT) [facility] Glucose, Plasma 364(H) 74 - 99 mg/dL 10/01/2022 10:12 AM EDT [facility] BUN, Plasma 43(H) 8 - 23 mg/dL 10/01/2022 10:12 AM EDT [facility] Creatinine, Plasma 1.02 0.60 - 1.10 mg/dL 10/01/2022 10:12 AM EDT [facility] BUN/Creatinine Ratio 42 10/01/2022 10:12 AM EDT [facility] Sodium, Plasma 140 136 - 145 mmol/L 10/01/2022 10:12 AM EDT [facility] Potassium, Plasma 5.0(H) 3.7 - 4.8 mmol/L 10/01/2022 10:12 AM EDT [facility] Chloride, Plasma 107 97 - 107 mmol/L 10/01/2022 10:12 AM EDT [facility] CO2, Plasma 27 22 - 29 mmol/L 10/01/2022 10:12 AM EDT [facility] Anion Gap 6 6 - 16 mmol/L 10/01/2022 10:12 AM EDT [facility] Total Calcium, Plasma 9.8 8.9 - 10.2 mg/dL 10/01/2022 10:12 AM EDT [facility] Total Protein 6.5 6.3 - 7.9 g/dL 10/01/2022 10:12 AM EDT [facility] Albumin, Plasma 3.3(L) 3.5 - 5.2 g/dL 10/01/2022 10:12 AM EDT [facility] AST, Plasma 67(H) 9 - 36 U/L 10/01/2022 10:12 AM EDT [facility] ALT, Plasma 67(H) 8 - 33 U/L 10/01/2022 10:12 AM EDT [facility] Alkaline Phosphatase, Plasma 103 46 - 142 U/L 10/01/2022 10:12 AM EDT [facility] Total Bilirubin, Plasma 0.3 0.2 - 1.1 mg/dL 10/01/2022 10:12 AM EDT [facility] eGFRcr 62.7 mL/min/1.7 3m*2 10/01/2022 10:12 AM EDT [facility] Comment:Reported eGFRcr in m L/min/1.73m2 is based the CKD-EPI 2020 equation that does not use a race coefficient. Blood Venous blood specimen / Unknown Venipuncture / Unknown 10/01/2022 6:37 AM EDT 10/01/2022 7:49 AM EDT us Mitchel HOLLY LAB BLOOD ORDERABLES Final Resul t [facility] [address] [place] [address] documented in this encounter Visit Diagnoses Diagnosis Routine general medical examination at a health care facility documented in this encounter Care Teams Laundromat Worker Relationship Specialty Start Date End Date Joshua Urban MD [address] [place] [address] PCP - General 06/27/20 Tri Singletary, [place] [address] Therapy Director Dungeon Master 10/19/17 05/05/24 documented as of this encounter
--- OUTSIDE RECORDS SUMMARY | 2024-12-03 16:19 | XMS_ITS | Encounter Summary ---
Author Organization Healthcare Address [address] [place] [address] Care Team Providers Care Regulatory And Compliance Technician Name Role Phone Joshua Urban MD Primary Care Provider [phone] Tri Singletary MANAGER TRANSIT Unavailable Unavailable Encounter Details Date Type Department Care Team ([facility] st Contact Info) Description 09/05/2017 Orders Only External Location [address] [place] [address] Provider, External Social History Tobacco Use Types [...] documented as of this encounter Care Teams Regulatory And Compliance Technician Relationship Specialty Start Date End Date Joshua Urban MD [address] [place] [address] PCP - General 06/27/20 Tri Singletary, [place] [address] Slag Skimmer Grinder Setup Operator 10/19/17 05/05/24 documented as of this encounter
--- OUTSIDE RECORDS SUMMARY | 2024-12-03 16:19 | XMS_ITS | Encounter Summary ---
Author Organization Healthcare Address [address] [place] [address] Care Team Providers Care Clinical Trial Head Name Role Phone Joshua Urban MD Primary Care Provider [phone] Tri Singletary WELDING MACHINE OPERATOR HELPER ARC Unavailable Unavailable Encounter Details Date Type Department Care Team (Late st Contact Info) Description 10/23/2016 Orders Only External Location [address] [place] [address] Provider, External Social History Tobacco Use Types [...] as of this encounter Care Teams Clinical Trial Head Relationship Specialty Start Date End Date Joshua Urban MD [address] [place], [place] [id number] PCP - General 06/27/20 Tri Singletary, WELDING [place]ACHINE [place] [address] Geriatrics Physician Assurance Specialist 10/19/17 05/05/24 documented as of this encounter
--- OUTSIDE RECORDS SUMMARY | 2024-12-03 16:19 | XMS_ITS | Encounter Summary ---
Author Organization Healthcare Address [address] [place] [address] Care Team Providers Care Telegraph Repeater Technician Name Role Phone Joshua Urban MD Primary Care Provider [phone] Tri Singletary ROLL OPERATOR Unavailable Unavailable Encounter Details Date Type Department Care Team ([facility] st Contact Info) Description 12/01/2019 Orders Only External Location [address] [place] [address] Provider, External Social History Tobacco Use Types [...] documented as of this encounter Care Teams Telegraph Repeater Technician Relationship Specialty Start Date End Date Joshua Urban MD [address] [place] [address] PCP - General 06/27/20 Tri Singletary, [place] [address] Woven Blind Loom Tender Internal Grinding Machine Operator 10/19/17 05/05/24 documented as of this encounter
--- OUTSIDE RECORDS SUMMARY | 2024-12-03 16:19 | XMS_ITS | Referral Summary ---
Author Organization [facility] ([place], [place], [place], [place]) Address [address] [place] [address] Care Team Providers Care Elevator Conductor Name Role Phone [facility], Provider Not In The System [...] Do you speak a language other than Cambodian at ho ks? No 06/20/2023 Do you want help with [...] Plan of Treatment Not on file Insurance [facility] AD[facility] MEDICAID [id number] Advance Directives For more information, please contact: [phone] * Full Code (Latest Code Status on File) Date Activated Date Inactivated Comments 06/19/2023 11:00 PM 06/30/2023 2:30 PM Care Teams Elevator Conductor Relationship Specialty Start Date End Date [facility], Provider Not In The System, [place] [address] PCP - General 06/20/23
--- OUTSIDE RECORDS SUMMARY | 2024-12-03 16:19 | XMS_ITS | Encounter Summary ---
Author Organization Healthcare Address [address] [place] [address] Care Team Providers Care Sales Merchandising Specialist Name Role Phone Joshua Urban MD Primary Care Provider [phone] Tri Singletary TEST DESK TROUBLE LOCATOR Unavailable Unavailable Encounter Details Date Type Department Care Team ([facility] st Contact Info) Description 12/01/2019 Orders Only External Location [address] [place] [address] Provider, External Social History Tobacco Use Types [...] as of this encounter Care Teams Sales Merchandising Specialist Relationship Specialty Start Date End Date Joshua Urban MD [address] [place] [address] PCP - General 06/27/20 Tri Singletary, [place] [address] Wrist Liner Hansard Reporter 10/19/17 05/05/24 documented as of this encounter
--- OUTSIDE RECORDS SUMMARY | 2024-12-03 16:20 | XMS_ITS | Clinical Summary ---
Author Organization [facility] Address [address] [place] [place] [address] Phone Care Team Providers Care Rehab Nursing Tech Name Role Phone Unavailable Primary Care Provider [...] on file Sexual Orientation Not on file Plan of Treatment Health Maintenance Due Date [...] age to complete this topic Insurance [place]ICAID [place] PART A AND B
--- OUTSIDE RECORDS SUMMARY | 2024-12-03 16:20 | XMS_ITS | Clinical Summary ---
Author Organization [employer] ([place], [place], [place], [place]) Address [address] [place] [address] Care Team Providers Care [address] Manager Name Role Phone [facility], Provider Not In The System MD [...] Do you speak a language other than Ugandan at ho md? No 06/20/2023 Do you want help with [...] years 1-dose series) 2021 Hemoglobin A1C 06/20/2023 Medicare Initial AWV [id number] 02/16/2024 Tobacco Cessation Counseling and Screening (12+) 06/19/2024 06/20/2023 COVID-19 VACCINE ( - season) 2024 Influenza Vaccine (#1) 2024 Lipid Panel 10/01/2025 10/01/2022 Insurance [facility] AD[facility] MEDICAID [id number] Advance Directives For more information, please contact: [phone] * Full Code (Latest Code Status on File) Date Activated Date Inactivated Comments 06/19/2023 11:00 PM 06/30/2023 2:[address] Manager Relationship Specialty Start Date End Date [facility], Provider Not In The System, [place] [address] PCP - General 06/20/23
--- OUTSIDE RECORDS SUMMARY | 2024-12-03 16:20 | XMS_ITS | Clinical Summary ---
Author Organization [facility] [place] Address [address] [place] [address] Care Team Providers Care Social Welfare Research Worker Name Role Phone Joshua Urban MD Primary Care Provider [phone] Allergies Active Allergy Reactions Criticality Noted Date [...] BMI 28.37 Complicates care Current use of longshore equipment operator anticoagulation 025 Overview (05/27/2024): Resume home eliquis [...] 1x 10mg Lokelma dose for K 5.1 Frailty 05/23/2024 Overview (05/23/2024): Weak and wheelchair [...] as able 1L NC Fall 05/23/2024 05/23/2024 Fall at home, initial encounter 05/23/2024 12/02/2024 Overview (05/27/2024): Admit SGT ICU Tertiary, ITSS, AUDIT-C completed 05/24 Ebopp-jp-myxxvig kidney injury 05/23/2024 11/04/2024 Overview (05/30/2024): Cr 2.92 on arrival, Baseline ~ 2.4 Avoid nephrotoxic agents as able and renally dose medications IVF resuscitation as needed Suicide attempt by drug augie thomas, initial encounter 09/25/2022 06/01/2024 Nicotine dependence 09/25/2022 06/02/19 Restless legs syndrome 09/25/202206/01 Sleep apnea, obstructive 09/25/2022 TIA (transient ischemic attack) 09/25/2022 06/01/2024 Hyperglycemia 09/25/2022 09/30/2022 CKD (chronic kidney disease) stage 2, GFR 60-89 ml/min 02/23/2021 09/25/2022 Overdose of undetermined intent 09/30/2022 Encounters Date Type Department Care Team Description 09/24/2024 2:30 PM EDT Office Visit [facility] Orthopaedic Surgery & Sports Medicine [address] [place] [address] Cornelio Burns MD Closed displaced intertrochanteric fracture of left femur with routine healing, subsequent encounter (Primary Dx); Closed fracture of hip, unspecified laterality, sequela 09/24/2024 2:24 PM EDT - 09/24/2024 11:59 PM EDT Hospital Encounter [facility] [address] [place] [address] Closed fracture of hip, unspecified laterality, sequela Discharge Disposition: Home or Self Care 09/24/2024 Travel from Last 3 Months Immunizations Immunization Administration Dates Next Due Hep B, adult 12/04/2018,07/12/2018,05/30/2018 Influenza Vaccine, Quadrival ent, Adjuvanted 11/26/2022 Influenza, Unspecified 12/01/2016 Influenza, high-dose, quadrivalent 04/05/2024 Influenza, injectable, quadr ivalent, preservative free 11/26/2022,03/06/2021,06/04/2017,12/20 Pneumococcal Polysaccharide PPV23 12/26/2015,10/2014 Family History Medical History Relation Name Comments Conversions - Other Cousin alpha-1- antitrypsin deficiency Conversions - Other Father's Brother alph t-4-cmselzhtgsx deficiency Conversions - Other Father's Sister alpha [...] any time in the past 12 m [facility], were you homeless or living in a [...] drink first t michelet in the morning (EYE-DIRECTOR OF EMERGENCY NURSING) to steady your nerves or to get [...] A1C 08/22/202410/2024, 10/01/2022, 12/03/2019, Additional history exists [id number] Vaccine ( season) 2024 UKY-Influenza Vaccine (#1) [...] this topic Medical Devices Implanted Type Area Subeditor Device Identifier Shelf Expiration Date Model / Serial / Lot Screw 10.5x85mm [employer]ob[employer] Ti Lag Globus Med - Sna - [id number] Implanted:Qty: 1 on 05/24/2024 by Cornelio Burns MD at [facility] Screw Left: Femur [employer]-[id number] 05/24/2025 [id number] / NA / NA Screw 5x35mm Ti [employer]obahn Lonnie Locking Globus Med - Sna - [id number] Implanted:Qty: 1 on 05/24/2024 by Cornelio Burns MD at [facility] Screw Left: Femur [employer]-[id number] 05/24/2025 [id number] / NA / NA Ball-Tip Guidewire [id number] - [id number] Implanted:Qty: 1 on 05/24/2024 by Cornelio Burns MD at [facility] Left: Femur Stykyus i[employer]ices [employer]-[id number] 04/19/2031 [id number] / / Nail Ti Trochanteric [id number] 125deg Lt - [id number] Implanted:Qty: 1 on 05/24/2024 by Cornelio Burns MD at [facility] Left: Femur Animating Touch Inc-[id number] 04/19/2034 [id number] / / Procedures Procedure Name [...] 1/2 Differentiation (05/23/2024 6:52 AM EDT) Pathologist [facility] [place] HIV 1 & 2 Antibody/Antigen Screen Non Reactive Non Reactive 05/23/2024 7:41 AM EDT [facility] Comment:Screening for HIV 1 & 2 antibodies, and P24 antigen is NONREACTIVE. No confirmatory testing is required. Blood Venous blood specimen / Unknown Venipuncture / Unknown 05/23/2024 6:52 AM EDT 05/23/2024 7:01 AM EDT Cornelio Burns MD LAB BLOOD ORDERABLES Final Re sult [facility] [address] [place] [address] * (ABNORMAL) Hemoglobin A1c (05/23/2024 6:52 AM EDT) Hemoglobin A1c 7.8(H) <5.7 % 05/23/2024 5:13 PM EDT [facility] Blood Venous blood specimen / Unknown Venipuncture / Unknown 05/23/2024 6:52 AM EDT 05/23/2024 6:54 AM EDT Narrative [facility] - 05/23/2024 5:13 PM EDT HA1C Interpretive Data: Diagnosis of Diabetes: Diabetic > or = 6.5% Pre-diabetic 5.7 to 6.4% Non-diabetic < or = 5.6% Glycemic Targets for Type I and Type II Diabetics: Non- Adults <7.0% Adults <6.0% Children and Adolescents <7.5% Source: [place] [employer]. Standards of medical care in diabetes,2017. Diabetes Care.2017:40 (suppl 1):S1-S135. Bing Conley Byers SSIS ETL DEVELOPER LAB BLOOD ORDERABLES Final Result [facility] [address] [place] [address] * CT Chest wo IV Contrast (12/02/2019 [...] Abdomen & Pelvis WO IVCON Dec 02 2019:12; CLINICAL INDICATION: Fall. TECHNIQUE: Imaging of the [...] Relevant to Health Maintenance Insurance [place] [address] Advance Directives * Full Code (Latest Code Status on File) Date Activated Date Inactivated Comments 06/01/2024 1:17 PM * Full Code Date Activated Date Inactivated Comments 05/24/2024 10:01 AM 06/01/2024 1:17 PM * Full Code Date Activated Date Inactivated Comments 05/23/2024 9:34 AM 05/24/2024 10:01 AM Care Teams Social Welfare Research Worker Relationship Specialty Start Date End Date Joshua Urban MD [address] [place] [address] PCP - General 06/27/20
[2024-12-03 16:44] LABS: Microscopic, Urine URINE MICROSCOPIC (MICROSCOPIC)
[2024-12-03 16:50] LABS: Hematocrit 39.5 % (37.0-47.0); Hemoglobin 12.0 g/dL (12.2-16.2); Immature Granulocytes % 0.6 %; Mean Corpuscular HGB Conc 30.4 g/dL (31.8-35.4); Mean Corpuscular Hemoglobin 24.5 pg (27.0-31.2); Mean Corpuscular Volume 80.6 fl (81-99); Nucleated Red Blood Cells % 0 %; Platelet Count 289 K/mm3 (142-424); Red Blood Count 4.90 M/mm3 (4.20-5.40); Red Cell Distribution Width-SD 50.2 fL; White Blood Count 9.4 K/mm3 (4.8-10.8)
[2024-12-03 16:56] LABS: Bilirubin,Urine Negative (Negative); Color,Urine YELLOW (Yellow); Glucose,Urine (UA) 2+ (Negative); Ketones,Urine Negative (Negative); Leukocyte Esterase,Urine Negative (Negative); PH,Urine 6.0 (5.0-8.5); Protein,Urine TRACE (Negative); Specific Gravity, Urine 1.010 (1.005-1.030); Urobilinogen,Urine 0.2 EU/dl (0.2)
[2024-12-03 17:15] LABS: Alanine Aminotransferase 20 U/L (12-78); Albumin Level 3.5 g/dl (3.5-5.0); Albumin/Globulin Ratio 1.1 (1.1-1.8); Alkaline Phosphatase 177 U/L (38-126); Anion Gap 14.0 mEq/L (5-15); Aspartate Amino Transferase 25 U/L (14-36); Bilirubin,Total 0.5 mg/dl (0.2-1.3); Blood Urea Nitrogen 74 mg/dl (7-17); Calcium 9.5 mg/dl (8.4-10.2); Carbon Dioxide 30 mmol/L (22.0-30.0); Chloride 100 mmol/L (98-107); Creatinine,Serum 2.30 mg/dl (0.52-1.04); Estimated Glomerular Filt Rate 21 ml/min (>60); GFR (African American) 26 ML/MIN (>60); Globulin 3.3 g/dL (1.3-3.2); Glucose 256 mg/dl (74-100); Potassium 5.0 mmoL/L (3.5-5.1); Sodium 139 mmol/L (136-145); Total Protein,Serum 6.8 g/dl (6.3-8.2)
[2024-12-03 17:50] LABS: Bacteria,Urine Trace /lpf; Squamous Epithelial Cell,Urine Occasional #/hpf (0-5)
[2024-12-03 19:21] LABS: Hemoglobin A1C 8.5 % (4.0-6.0)
[2024-12-03 19:29] LABS: Iron 77 ug/dL (37-170)
[2024-12-03 19:38] LABS: Total Iron Binding Capacity 311 ug/dL (265-497)
[2024-12-03 20:05] LABS: Ferritin 21.9 ng/ml (11.1-264)
== END 2024-12-03 23:59 | disposition home or self-care (01) ==
LOC: LAB.DROPOF 16:15
PROVIDERS: PCP Nurse Practitioner Family; Visit Provider Nurse Practitioner Family
DX: N17.9 Acute kidney failure, unspecified (principal); B18.2 Chronic viral hepatitis C; B19.10 Unspecified viral hepatitis B without hepatic coma; G83.4 Cauda equina syndrome
CPT/HCPCS: 80053; 81001; 82570; 82728; 83036; 83540; 83550; 83970; 84156; 85025

== ENCOUNTER 2024-12-03 16:28 | Outpatient (CLI) | payer MEDICARE, MEDICAID, SELFPAY ==
--- OUTSIDE RECORDS SUMMARY | 2024-12-03 16:33 | XMS_ITS | Data Portability ---
Author Organization [facility] [place] [facility] Address [address] [place] [id number] Assessment No assessment recorded. Plan of Treatment [...] Address Organization Details Recorded Time Diabetes mellitus 19414025 Active 2023 Mai Liriano null, [facility] - [facility] [place] [facility] [place] 4 07:30:59 Clostridium difficile colitis 993645346 Active 2023 Mai Liriano null, [place] - [facility] [place] [facility] [place] 4 07:31:08 Compression fracture Active 2023 Mai Liriano null, [facility] [place] 4 07:31:21 Chronic kidney disease 498315613 Active 2023 Mai Liriano null, [place] [facility] [place] 4 07:31:30 Congestive heart failure 02678317 Active 2023 Mai Liriano null, [place] [facility] [place] 4 07:31:43 Chronic obstructive pulmonary disease 38768318 Active 2023 Mai Liriano null, [facility] [place] 4 07:31:48 Problem Notes None recorded. Procedures Surgical History Date Name Laterality Status Provider Name and Address Organization Details Recorded Time appendectomy completed Marium RODRIGUEZ [facility] [place] 02/14/2024 11:17:16 procedure on gallbladder completed Marium RODRIGUEZ [facility] [place] 02/14/2024 11:17:24 Wrist arthroscopy completed Marium RODRIGUEZ [facility] [place] 02/14/2024 11:17:31 procedure on lower leg completed Marium RODRIGUEZ [facility] [place] 02/14/2024 11:18:15 procedure on lower leg completed Marium RODRIGUEZ [place] [facility] [place] 02/14/2024 11:18:18 tonsillectomy completed Marium RODRIGUEZ [facility] [place] 02/14/2024 11:18:26 ligation of fallopian tube completed Marium RODRIGUEZ [facility] [place] 02/14/2024 11:18:34 Imaging Results None recorded. Procedure Notes None recorded. Medical Equipment None Reported. Allergies Allergen ID Allergen Name Allergen Category Reaction Reaction Severity Criticality Documentation Date Start Date Code Code System Note Provider Name and Address Organization Details Recorded Time 484365 fluticaso ne / salmetero l medicatio n Not available Not available Not available 02/14/2024 86556 5 RxNorm POLLO Gonzalez [facility] [place] 4 07:28:27 584819 aspirin medicatio n Not available Not available Not available 02/14/2024 1191 RxNorm POLLO Gonzalez [facility] [place] 4 07:28:36 289136 Benadryl medicatio n Not available Not available Not available 02/14/2024 63686 7 RxNorm POLLO Gonzalez [facility] [place] 4 07:28:42 698040 bupropion Not available Not available Not available Not available 02/14/2024 48936 RxNorm POLLO Gonzalez [facility] [place] 4 07:28:51 464180 Celebrex medicatio n Not available Not available Not available 02/14/2024 14332 7 RxNorm Mai maloney, [place] - [facility] [place] 4 07:28:57 984721 citalopra m medicatio n Not available Not available Not available 02/14/2024 2556 RxNorm Mai maloney, [place] - [facility] [place] 4 07:29:03 582471 codeine medicatio n Not available Not available Not available 02/14/2024 2670 RxNorm Mai maloney, [place] - [facility] [place] 4 07:29:09 367412 duloxetin e medicatio n Not available Not available Not available 02/14/2024 98073 RxNorm Mai maloney, [place] - [facility] [place] 4 07:29:15 686608 erythromy jt medicatio n Not available Not available Not available 02/14/2024 4053 RxNorm Mai maloney, [place] - [facility] [place] 4 07:29:24 325809 methocarb nneka medicatio n Not available Not available Not available 02/14/2024 6845 RxNorm Mai maloney, [place] - [facility] [place] 4 07:29:33 936275 naproxen medicatio n Not available Not available Not available 02/14/2024 7258 RxNorm Mai maloney, [place] - [facility] [place] 4 07:29:40 846844 pregabali n medicatio n Not available Not available Not available 02/14/2024 04419 2 RxNorm POLLO Gonzalez - [facility] [place] 4 07:29:45 241864 Bactrim medicatio n Not available Not available Not available 02/14/2024 42320 9 RxNorm Mai maloney, [place] - [facility] [place] 4 07:29:52 244140 Substance with sulfonami de structure and antibacte rial mechanism of action (substanc e) medicatio n Not available Not available Not available 02/14/2024 82836 8003 SNOMED POLLO Gonzalez [facility] [place] 4 07:29:59 143576 terbutali ne medicatio n Not available Not available Not available 02/14/2024 07390 RxNorm POLLO Gonzalez [facility] [place] 4 07:30:12 607149 tramadol medicatio n Not available Not available Not available 02/14/2024 06413 RxNorm POLLO Gonzalez [place] [facility] [place] 4 07:30:18 899151 trimethop rim medicatio n Not available Not available Not available 02/14/2024 00607 RxNorm POLLO Gonzalez [facility] [place] 4 07:30:38 Medications Name Sig Start Date [...] 4 67 /min 94 % 94 % 87386.7 7 g 124/62 mm[Hg] Marium Martin [place] - [facility] [place] 4 11:16:51 Social History None recorded. Functional Status None recorded. Mental Status None recorded. Family History Nothing Reported. Medical History No medical history recorded. Gynecological HistoryNo gynecological history recorded. Obstetrics History GPAL:G 0 P 0 0 0 0 Past Encounters Encounter ID Performer Location Encounter Start Date Encounter Closed Date Diagnosis/Indication Diagnosis SNOMED-CT Code Diagnosis ICD10 Code Diagnosis IMO Codes Diagnosis Note [id number] BRENNA KAUR [facility] [address] [place] [address] 11/30/2021 11:21:42 11/30/2021 17:05:50 [id number] BRENNA KAUR [facility] [address] [place], [place] [address] 12/29/2021 12:00:34 12/29/2021 13:04:52 [id number] CATRACHO BUNCH [facility] [address] [place] [address] 01/01/2022 15:02:26 01/05/2022 12:08:39 [id number] BRENNA KAUR [facility] [address] [place] [address] 01/05/2022 15:56:35 01/06/2022 14:26:19 [id number] BRENNA KAUR [facility] [address] [place] [address] 01/13/2022 11:49:38 01/13/2022 14:03:48 [id number] [facility] [address] [place] [address] 01/21/2022 14:07:08 01/21/2022 15:03:54 [id number] [facility] Inter[facility] [address] [place] [address] 01/27/2022 14:54:09 01/28/2022 12:07:06 [id number] MARK GHOTRA, [facility] Therapeut ic Intervent ion [address] [place] [address] 02/01/2022 11:42:01 02/01/2022 12:51:07 [id number] FRAN GEORGE [facility] ic Inter[facility] [address] [place] [address] 02/01/2022 12:12:33 02/01/2022 13:03:12 [id number] MARK GHOTRA [facility] Therapeut ic Intervent ion [address] [place] [address] 02/17/2022 10:32:30 02/17/2022 11:05:37 [id number] FRAN GEORGE 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 She received Fidaxomici n [...] Name 04/21/2024 1 [place] Kassy Bartlett [id number] Kassy Bartlett 02/14/2024 1 [place]MEDIC[place] REPLACEMENT HMO) [id number] Kassy Bartlett [id number] Kassy Bartlett 04/21/2024 2 MEDICAID-[facility] HE[facility] CHOICES - FFS/TRADITION AL Kassy Bartlett [id number] Kassy Bartlett Notes Date Note Type Note [...] denies any nausea or vomiting. Elizabeth Lyons, [employer] [employer] [address] , [place], [address], [facility] [place] [facility] [place] 02/14/2024 11:29:54 OBGyn Episode No OBEpisode recorded.
--- OUTSIDE RECORDS SUMMARY | 2024-12-03 16:33 | XMS_ITS | Data Portability ---
Author Organization [facility] Address [address] [place] [address] Care Team Providers Care Ton Container Shipper Name Role Phone LINDA GRANADO Material Handling Supervisor CAYETANO NASSAR Turpentine Farmer YARA STEPHENSON Disability Liaison Officer KAMLA GOMEZ Pain Management Assessment No assessment recorded. Plan of Treatment Reminders Order Date Submit Date Provider Last Modified By Organization Details Last Modified Time Details Appointments None recorde d. Lab HbA1c (hemogl obin A1c), blood 023 05/15/19 23 [facility], [address] [place] [address], [phone], 11:49:30 Referral None recorde d. Procedures None [...] blood HbA1C 7.0 % Not Available [address], [address], 05/14/2022 11:31:02 Result Notes None recorded. Problems Name Problem SNOMED Code Status Onset Date Resolution Date Notes Provider Name and Address Organization Details Recorded Time Hypertensive disorder 97581811 Active 2022 Mary Stears null, [place] - [facility] 3 11:11:26 Type 2 diabetes mellitus 85451448 Active 2022 Mary Stears null, [place] - [facility] 3 11:11:35 Hypercholester olemia 26156070 Active 2022 Mary Stears [place] [facility] 3 11:11:43 Anxiety 62666085 Active 2022 Mary Stears [place] [facility] 3 11:11:49 Depressive disorder 48398803 Active 2022 Mary Stears [place] [facility] 3 11:11:54 Dementia 65082346 Active 2022 Mary Stears [place] [facility] 3 11:12:50 Migraine 07720420 Active 2022 Mary Stears [place] [facility] 3 11:13:04 Oxygenator therapy Active 2022 Mary Stears [place] [facility] 3 11:13:12 Heart disease 23899704 Active 2022 Mary Stears [place] [facility] 3 11:13:21 Acid reflux 089113508 Active 2022 Mary Stears [place] [facility] 3 11:13:28 Chronic kidney disease 781682348 Active 2022 Mary Stears null, [place] - [...] Name and Address Organization Details Recorded Time 717717 sulfameth oxazole / trimethop rim medicatio n Not available Not available Not available 05/14/2022 09539 RxNorm Mary Stears null, [place] - [facility] 3 11:09:20 975842 acetamino phen medicatio n Not available Not available Not available 05/14/2022 161 RxNorm Mary Stears null, [place] - [facility] 3 11:09:59 493185 codeine medicatio n Not available Not available Not available 05/14/2022 2670 RxNorm Mary Stears null, [place] - [facility] 3 11:10:05 300323 aspirin medicatio n Not available Not available Not available 05/14/2022 1191 RxNorm Mary Stears null, [place] - [facility] 3 11:10:12 269155 bupropion Not available Not available Not available Not available 05/14/2022 47686 RxNorm Mary Stears [place], [place] - [facility] 3 11:10:21 752994 celecoxib medicatio n Not available Not available Not available 05/14/2022 07769 7 RxNorm Mary Stears [place], [place] [facility] 3 11:10:30 697393 duloxetin e medicatio n Not available Not available Not available 05/14/2022 88841 RxNorm Mary Stears [place], [place] [facility] 3 11:10:37 428191 erythromy jt medicatio n Not available Not available Not available 05/14/2022 4053 RxNorm Mary Stears [place], [place] - [facility] 3 11:10:46 144908 naproxen medicatio n Not available Not available Not available 05/14/2022 7258 RxNorm Mary Stears null, [place] - [facility] 3 11:10:53 707959 Product containin g penicilli n (product) medicatio n Not available Not available Not available 05/14/2022 37594 8001 SNOMED Mary Stears null, [place] - [facility] 3 11:10:59 065872 pregabali n medicatio n Not available Not available Not available 05/14/2022 43081 2 RxNorm Mary Stears null, [place] - [facility] 3 11:11:07 902808 tramadol medicatio n Not available Not available Not available 05/14/2022 08900 RxNorm Mary Stears null, [place] - [facility] 3 11:11:14 Medications Name Sig Start Date [...] Available No t Available Comfort EZ Pen Mul[place] 32 gauge x 1/4 USE DIRECTED 05/14 [...] Address Organization Details Last Updated DateTime 3 63680.6 g 22.5 kg/m2 162.56 cm 18 /min 97.4 [degF] 92 /min 97 % 97 % 140/76 mm[Hg] Mary Yang [facility] 3 10:38:38 Date Recorded Body height Body mass index (BMI) Body weight Body temperature Heart rate Oxygen saturation Oxygen saturation in Arterial blood by Pulse oximetry Respiratory rate Pain severity - 0-10 verbal numeric rating [Score] - Reported Systolic And Diastolic Provider Name and Address Organization Details Last Updated DateTime 3 162.56 cm 23.4 kg/m2 47457.6 6 g 97.7 [degF] 86 /min 93 % 93 % 18 /min 6 136/82 mm[Hg] Kassi Earl [facility] 3 13:54:46 Date Recorded Body height Body mass index (BMI) Body weight Body temperature Heart rate Oxygen saturation Oxygen saturation in Arterial blood by Pulse oximetry Respiratory rate Pain severity - 0-10 verbal numeric rating [Score] - Reported Systolic And Diastolic Provider Name and Address Organization Details Last Updated DateTime 3 162.56 cm 22.3 kg/m2 75342.0 1 g 97.8 [degF] 92 /min 93 % 93 % 18 /min 0 128/78 mm[Hg] Kassi Earl [facility] 3 13:43:48 Social History Question Answer Notes LastModified by Organizat ion Details LastModified Time Tobacco Smoking Status Current Every Day Smoker Mary Yang [place], [place] - [facility] 05/14/2022 11:00:17 Do You [...] Or The Highest Degree You Have Received? [id number] Information not available 05/14/2022 Have There Been Any Changes To Your Family Or Social Situation? No Information no t available 05/14/2022 What Is The Fluoride Status Of Your Home? Unknown Information not available 05/14/2022 Have You Recently Or Are You Planning To Travel To An Area With Zika Virus? No Information not available 08/31/2022 Do You Have A Medical Power Of Net Web Application Developer? No Daughter Makes Decisions At Times For [...] not available 05/14/2022 Are you able to walk independently without assistance or assistive devices? YESCAROLE cohn Information not available 05/14/2022 Do you have difficulty doing errands alone? No Information not available 05/14/2022 Are you able to care for yourself independently? Yes Information not available 05/14/2022 Do you have difficulty dressing, bathing, grooming, or toileting? No Information not available 05/14/2022 What is your exercise level? None Information not available 05/14/2022 Mental Status Question Answer Note LastModified by Organizat ion Details LastModified Time Do you feel stressed (tense, restless, nervous, or anxious, or unable to sleep at night)? [id number] Information not available 05/14/2022 Do you have [...] ICD10 Code Diagnosis IMO Codes Diagnosis Note [id number] Chad García APRN [address] [address] 05/14/2022 10:06:58 05/14/2022 11:44:28 Type 2 diabetes mellitus 29902876 Z79.4 pt had a hard time understand ing how to give self bolus with mealseduca tion on carb counting and non glucose diet given to pta1c 7%return 05/20/22 at 1115 for reinforcem ent to omni pod trainingom ni pod settings: 0.75u/hr 18 units a daysmall bolus 1 unitmed bolus 5unitslarg bolus 10units [id number] Chad García APRN [address] [address] 08/31/2022 13:42:19 08/31/2022 15:03:56 Type 2 diabetes mellitus 85508171 Z79.4 pt had a hard time understand ing how to give self bolus with meals, having fluctuatin g blood glucoseedu cation on carb counting and non glucose diet given to pt [id number] Chad García APRN [address] [address] 09/02/2022 13:24:32 09/02/2022 15:38:25 Type 2 diabetes mellitus 57378544 Z79.4 omnipod 5 training done with arnoldo over the phone. daughter at [facility].pt / daughter states she understand training Education about insulin pump [id number] 62831 Z46.81 omnipod 5 training completed by arnoldo from [facility] Section Related Observation LastModified by Organization Detai ls LastModified Time None Recorded Concern Status LastModified by Organization Details LastModified Time None Recorded Advance Directives Directive N: daughter makes decisions at times for Kassy Payers Insurance Date Sequence Insurance Name Policy Number Policy Guevara Covered Member ID Guevara Member ID Guarantor Name 08/30/2022 1 [place]MED[place]ACEMENT HMO) [id number] Kassy Bartlett [id number] Kassy Bartlett Notes Date Note Type Note Provider Name and Address Organization Details Recorded Time 05/14/2022 text/html Kassy is a 62 year old female who presents to the office today with concerns ofproblems with omni pod. pt is having issues understanding how it works. glucose today is 234 Chad García APRN [address], [place], [address], [place] - [facility] 05/14/2022 13:36:20 08/31/2022 text/html [...] is having problems doing her bolus. Chad MontoyaPRIYA cervantes [address], [place], [address], [place] - [facility] 08/31/2022 17:32:33 09/02/2022 text/html 62 yr old female presents for omnipod adjustment. pt states she is having problems with hyperglycemia and her pump is only giving her 1 u/day and she is giving herself freq bolus. pt is here today for omnipod 5 training Astonashley García APRN [address], [place], [address], [place] - [facility] 09/02/2022 15:52:50 OBGyn Episode No OBEpisode recorded.
== END 2024-12-03 23:59 | disposition home or self-care (01) ==
LOC: LAB.DROPOF 16:30
PROVIDERS: PCP Nurse Practitioner Family; Visit Provider Nurse Practitioner Family
DX: N17.9 Acute kidney failure, unspecified (principal); B18.2 Chronic viral hepatitis C; B19.10 Unspecified viral hepatitis B without hepatic coma; G83.4 Cauda equina syndrome

== ENCOUNTER 2025-01-24 09:15 | Day surgery (SDC) | payer MEDICARE, MEDICAID, SELFPAY ==
--- NOTE | 2025-01-21 15:57 | EXP.HP ---
History of Present Illness *Admission Date: 01/24/25 *History of present illness: Mrs. Bartlett is a 64-year-old female who is here for diagnostic EGD. The patient did have narrowing of the esophagus on barium swallow. The examination is deemed medically necessary for diagnostic EGD. The patient has been seen, interviewed and examined prior to the procedure by both myself and the anesthesia provider. [facility] Disclaimer: The information contained in this section may have been updated after the patient was seen, as this information can be updated by other users. Medical History Edema Chest pain RAGHAV (acute kidney injury) Pneumonia Lung nodule Pulmonary Langerhans cell granulomatosis Encounter for screening for malignant neoplasm of lung History of smoking 30 or more pack years Vocal cord dysfunction Community acquired pneumonia Acute on chronic diastolic (congestive) heart failure Lumbar compression fracture C. difficile colitis Cough Hyperkalemia Chronic respiratory failure with hypoxia COPD mixed type Elevated liver enzymes Paroxysmal atrial fibrillation Acute on chronic heart failure with preserved ejection fraction (HFpEF) Suicidal ideation Depression with suicidal ideation Abnormality of lung on CXR Acute and chronic respiratory failure with hypoxia Abnormal ankle brachial index (DAVE) Pyelonephritis Restless leg syndrome Hepatitis B Depression Anxiety Chronic kidney disease Sleep apnea Migraine History of transient ischemic attack (TIA) History of hip fracture History of gastroesophageal reflux (GERD) Diabetes mellitus, type 2 Hyperlipidemia Congestive heart failure Nonspecific chest pain Hip fracture Failure to thrive Closed femur fracture Instability of left knee joint Left knee pain Vaginal pain Abnormal computed tomography angiography (CTA) of abdomen and pelvis Claudication Decreased pedal pulses Other specified symptoms and signs involving the circulatory and respiratory systems Acquired hammer toes of both feet Chronic deep vein thrombosis (DVT) of right lower extremity Primary osteoarthritis of both feet Overweight (BMI 25.0-29.9) Acute worsening of stage 3 chronic kidney disease Diabetes mellitus with neuropathy Left leg swelling Lymphedema Plantar fasciitis, left Foot pain, left Obesity (BMI 30.0-34.9) Sepsis Osteoarthritis of feet, bilateral Diabetic peripheral neuropathy associated with type 2 diabetes mellitus Onychoincurvatum Hepatitis C Chest pain Normal coronary arteries Foot pain, right COPD (chronic obstructive pulmonary disease) DVT (deep venous thrombosis) Cellulitis of right foot Hep B w/o coma Hep C w/o coma, chronic Endothelial dysfunction of coronary artery Elevated left ventricular end-diastolic pressure (LVEDP) Cauda equina syndrome ANNIE on CPAP Langerhan's cell histiocytosis SOB (shortness of breath) on exertion Atrial fibrillation HTN (hypertension) PAD (peripheral artery disease) Abdominal pain Diabetes mellitus Renal insufficiency Acute exacerbation of chronic obstructive airways disease Neck Pain Back pain Surgical History History of surgery on right wrist History of hip surgery Hx of tonsillectomy History of cholecystectomy History of appendectomy History of hysterectomy History of cardiac cath Family History Other Coronary artery disease Family history of diabetes mellitus type II Family history of hyperlipidemia Family history of hypertension Social History Smoking Status: Former smoker tobacco type: cigarettes packs per day: 2 pack-years: 60 second hand exposure: Yes alcohol intake: never counseling provided: none substance use type: denies use current occupational status: retired Travel in the last 8 weeks?: None household members: none housing: house lives independently: Yes marital status: education level: middle school current occupational exposures/hazards: No caffeine: Yes special ping needs: No agree to transfusion: No do you feel safe at home: Yes victim of physical abuse: No victim of emotional abuse: No victim of sexual abuse: No would you like helpful sources: No Have you lived/traveled outside US in past 30 days?: No Contact w/someone who lives/traveled outside US past 30 days?: No Exposure to someone with infectious disease in past 14 days?: No Do you have a fever (greater than 100.4 F or 38 C)?: No Have you tested positive for COVID-19?: No Exposed to someone with COVID-19 in past 14 days?: No Do you have a sore throat?: No Do you have a cough?: No Do you have any weakness?: No Do you have any diarrhea?: No Are you experiencing any unusual bleeding?: No Do you have any muscle aches/pain?: No Do you have any abdominal pain?: No Are you experiencing loss of taste or smell?: No Other Medical History Have you received the Flu Vaccine for this season: No Have you received the Pneumonia Vaccine: No Review of Systems Review of Systems Review of systems (narrative): Negative *Cardiovascular Comments: Negative *Gastrointestinal Comments: Negative *Genitourinary Comments: Negative *Musculoskeletal Comments: Negative *Neurologic Comments: Negative Meds Home Medications and Allergies Home Medications ?Medication ?Instructions ?Recorded ?Confirmed ?Type apixaban 5 mg tablet (Eliquis) 5 mg PO BID 09/06/22 01/07/25 History insulin lispro 100 unit/mL 1 sliding scale dose SQ ACHS 08/23/23 01/07/25 History subcutaneous pen (Admelog SoloStar U-100 Insulin lispro) atorvastatin 10 mg tablet 10 mg PO HS 09/03/23 01/07/25 History isosorbide mononitrate 30 mg 30 mg PO DAILY 09/03/23 01/07/25 History tablet,extended release 24 hr ipratropium 0.5 mg-albuterol 3 mg 3 ml inhalation TID PRN Shortness 09/04/23 01/07/25 History (2.5 mg base)/3 mL nebulization Of Breath Or Wheezing soln lidocaine 5 % topical patch 1 patch topical DAILY 09/16/23 01/07/25 History (Lidoderm) guaifenesin 600 mg tablet, 600 mg PO BID 12/01/23 01/07/25 History extended release 12 hr (Mucus Relief ER) pen needle,diabetic dual safty 30 #100 ea 12/01/23 01/07/25 History gauge x 3/16 (BD AutoShield Duo Pen Needle) polyethylene glycol 3350 17 17 g PO DAILY 12/01/23 01/07/25 History gram/dose oral powder (ClearLax) acetaminophen 500 mg capsule 1,000 mg PO Q6HP PRN Mild Pain 03/05/24 01/07/25 History (Scale Score 1-4) famotidine 20 mg tablet 20 mg PO BID 03/05/24 01/07/25 History buspirone 10 mg tablet 10 mg PO BID 06/13/24 01/07/25 History oxycodone-acetaminophen 5 mg-325 1 tab PO QID 07/04/24 01/07/25 History mg tablet aripiprazole 10 mg tablet 10 mg PO DAILY 08/03/24 01/07/25 History fluticasone fur. 100 mcg-umeclid 1 inh inhalation DAILY 08/03/24 01/07/25 History 62.5 mcg-vilant 25 mcg inhalat.powder (Trelegy Ellipta) metoprolol tartrate 25 mg tablet 25 mg PO BID 08/30/24 01/07/25 History docusate sodium 100 mg capsule 100 mg PO BID 08/31/24 01/07/25 History gabapentin 400 mg capsule 400 mg PO TID 08/31/24 01/07/25 History insulin glargine 100 unit/mL (3 44 unit SQ HS 08/31/24 01/07/25 History mL) subcutaneous pen (Lantus Solostar U-100 Insulin) insulin lispro 100 unit/mL 6 unit SQ AC 08/31/24 01/07/25 History subcutaneous pen buspirone 5 mg tablet 5 mg PO 11/27/24 01/07/25 History allopurinol 300 mg tablet 300 mg PO DAILY 01/07/25 01/07/25 History bumetanide 0.5 mg tablet 0.5 mg PO DAILY 01/07/25 01/07/25 History cholecalciferol (vitamin D3) 25 25 mcg PO DAILY 01/07/25 01/07/25 History mcg (1,000 unit) capsule ergocalciferol (vitamin D2) 1,250 1,250 mcg PO WEEKLY 01/07/25 01/07/25 History mcg (50,000 unit) capsule (Vitamin D2) ferrous sulfate 325 mg (65 mg 325 mg PO DAILY 01/07/25 01/07/25 History iron) tablet (FeroSul) hydralazine 25 mg tablet 25 mg PO DIRECTED 01/07/25 01/07/25 History lidocaine 5 % topical ointment topical 01/07/25 01/07/25 History magnesium oxide 500 mg PO DAILY 01/07/25 01/07/25 History nystatin 100,000 unit/gram topical topical 01/07/25 01/07/25 History powder primidone 50 mg tablet 25 mg PO HS 01/07/25 01/07/25 History sennosides 8.6 mg tablet (senna) mg PO 01/07/25 01/07/25 History vortioxetine 20 mg tablet 20 mg PO DAILY 01/07/25 01/07/25 History (Trintellix) New Prescriptions to Start Prescriptions: Allergies Allergy/AdvReac Type Severity Reaction Status Date / Time methocarbamol Allergy Severe Altered Verified 01/24/25 10:23 mental status terbutaline (TERBUTALINE) Allergy Severe SWELLS Verified 01/24/25 10:23 THROAT aspirin (ASPIRIN) Allergy Intermediate I-RASH Verified 01/24/25 10:23 codeine (CODEINE) Allergy Intermediate Swelling Verified 01/24/25 10:23 of the Eye diphenhydramine (From Allergy Intermediate Hives Verified 01/24/25 10:23 Benadryl) Sulfa (Sulfonamide Allergy Intermediate Hives Verified 01/24/25 10:23 Antibiotics) (SULFA (SULFONAMIDE ANTIBIOTICS)) sulfamethoxazole (From Allergy Intermediate Hives Verified 01/24/25 10:23 Bactrim) trimethoprim (From Bactrim) Allergy Intermediate Hives Verified 01/24/25 10:23 naproxen (NAPROXEN) Allergy Mild itching Verified 01/24/25 10:23 tramadol (TRAMADOL) Allergy Mild Vomiting Verified 01/24/25 10:23 citalopram (CITALOPRAM) Allergy Unknown SKIN PEEL Verified 01/24/25 10:23 erythromycin base Allergy Unknown I-RASH Verified 01/24/25 10:23 (ERYTHROMYCIN BASE) Penicillins (PENICILLINS) Allergy Unknown I-RASH Verified 01/24/25 10:23 fluticasone (From Advair Allergy Unknown Verified 01/24/25 10:23 Diskus) allergy reaction salmeterol (From Advair Allergy Unknown Verified 01/24/25 10:23 Diskus) allergy reaction bupropion (BUPROPION) AdvReac Severe Hallucinati Verified 01/24/25 10:23 ng duloxetine (DULOXETINE) AdvReac Severe Hallucinati Verified 01/24/25 10:23 ng pregabalin (PREGABALIN) AdvReac Severe Hallucinati Verified 01/24/25 10:23 ng celecoxib (From CELEBREX) AdvReac Mild Vomiting Verified 01/24/25 10:23 Exam *Routine HEENT Exam Head: Present normocephalic Eye: Present EOMI and PERRL ENT: Present mucous membranes moist *Routine Neck Exam Neck: Present supple *Routine Respiratory Exam Respiratory: Present CTA bilaterally *Routine Cardiovascular Exam Cardiovascular: Present RRR *Routine Abdominal Exam Abdominal: Present soft and normoactive bowel sounds; Absent tenderness *Routine Rectal Exam Rectal:: deferred *Routine Genitalia Exam Genitalia:: deferred *Routine Extremities Exam Extremities: Absent cyanosis, clubbing or edema *Routine Skin Exam Skin: Present warm; Absent rash *Routine Neurological Exam Neurological: Present alert and oriented X3 Assessment and Plan *Assessment and plan (1) Dysphagia: Status: Acute Qualifiers: Dysphagia type: unspecified Qualified Code(s): R13.10 - Dysphagia, unspecified Category: Medical Code(s): R13.10 - Dysphagia, unspecified (2) Esophageal stricture: Status: Acute Category: Medical Code(s): K22.2 - Esophageal obstruction Plan A/P: 1. Esophageal stenosis/stricture with dysphagia is the preprocedural diagnosis. The patient will be anesthetized/sedated using MAC sedation. The patient has been seen and examined. Cardiac and lung assessment prior to the examination is stable. Proceed with planned diagnostic EGD.
[2025-01-23 15:22] VITALS: BMI 28.8
--- NOTE | 2025-01-24 06:55 | HMH.PROCNOTE ---
[facility] Procedure Note Date: 01/24/25 Time: 11:16 Procedure Note:: Upper Endoscopy Procedure Report: Esophagogastroduodenoscopy with cold biopsies and TTS balloon dilation Endoscopost: Jamie Tobin II, MD Referring Physician: LI Mandel Date of Procedure: January 24, 2025 Equipment: Olympus GIF-1100 standard upper endoscope Sedation: MAC sedation Indications: Mrs. Bartlett is a 64-year-old female who is here for diagnostic EGD. The patient does report chronic heartburn, reflux, bloating, belching, nausea, early satiety and epigastric discomfort. She has chronic dyspepsia and GERD. The patient is on famotidine 20 mg p.o. twice daily. She is also on buspirone 5 mg daily. The patient did have narrowing of the esophagus on barium swallow. The examination is deemed medically necessary for diagnostic EGD. Procedure: Prior to the procedure, a history and physical exam was performed, and patient's medications and allergies were reviewed. The risks, benefits and alternatives of the sedation and procedure were discussed with the patient. All questions were answered and informed consent was obtained. The patient was brought to the procedure room. Patient identification and proposed procedure were verified by the physician and the nurse. The patient was placed in a left lateral decubitus position and the scope was passed under direct vision. Throughout the procedure, the patient's blood pressure, pulse, and oxygen saturations were monitored continuously. The upper GI endoscopy was accomplished without difficulty. The patient tolerated the procedure well. Findings: The scope was passed directly into the upper esophagus and advanced to the third portion of the duodenum. The post bulbar duodenum, ampulla and duodenal bulb were normal with normal mucosa and conniventes. 2 cold biopsies were taken from the second portion of the duodenum for the disaccharidase assay. The scope was withdrawn through a normal duodenal bulb and pylorus into the stomach. There was some bile reflux with linear reactive gastropathy of the antrum. There was some mild chronic gastritis of the body and fundus. 2 cold biopsies were taken in the antrum and lesser curvature to rule out H. pylori. Upon retroflexion there was no hiatal hernia. The scope was then withdrawn into the esophagus. There was no evidence of reflux esophagitis or Harley's. There were no rings, strictures, furrowing or corrugation. There were strong tertiary contractions and evidence of moderate esophageal dysmotility. The entire esophagus was dilated to 60 Citizen Of [place]/20 mm with a TTS hydrostatic balloon. There was mild resistance at the cricopharyngeus. The remainder of the esophageal mucosa was normal. Impression: 1. Nonerosive GERD with moderate esophageal dysmotility 2. Bile reflux with mild linear reactive gastropathy and mild chronic gastritis Plan: I will follow-up the biopsies and disaccharidase assay. We will discuss additional treatment options for her functional dyspepsia and functional GERD/uncomplicated GERD.
[2025-01-24 10:26] VITALS: BP 129/60; PULSE 67; RESP 16; TEMP 36.2; O2SAT 93
[2025-01-24] MEDS: LACTATED RINGERS 1000ML 1,000 ML 50 ML IV (10:34)
[2025-01-24 10:36] LABS: POC Glucose,Bedside 139 gm/dL (70-110)
--- NOTE | 2025-01-24 10:44 | EXP.ANES.CKL ---
[facility] Disclaimer: The information contained in this section may have been updated after the patient was seen, as this information can be updated by other users. Medical History Edema Chest pain RAGHAV (acute kidney injury) Pneumonia Lung nodule Pulmonary Langerhans cell granulomatosis Encounter for screening for malignant neoplasm of lung History of smoking 30 or more pack years Vocal cord dysfunction Community acquired pneumonia Acute on chronic diastolic (congestive) heart failure Lumbar compression fracture C. difficile colitis Cough Hyperkalemia Chronic respiratory failure with hypoxia COPD mixed type Elevated liver enzymes Paroxysmal atrial fibrillation Acute on chronic heart failure with preserved ejection fraction (HFpEF) Suicidal ideation Depression with suicidal ideation Abnormality of lung on CXR Acute and chronic respiratory failure with hypoxia Abnormal ankle brachial index (DAVE) Pyelonephritis Restless leg syndrome Hepatitis B Depression Anxiety Chronic kidney disease Sleep apnea Migraine History of transient ischemic attack (TIA) History of hip fracture History of gastroesophageal reflux (GERD) Diabetes mellitus, type 2 Hyperlipidemia Congestive heart failure Nonspecific chest pain Hip fracture Failure to thrive Closed femur fracture Instability of left knee joint Left knee pain Vaginal pain Abnormal computed tomography angiography (CTA) of abdomen and pelvis Claudication Decreased pedal pulses Other specified symptoms and signs involving the circulatory and respiratory systems Acquired hammer toes of both feet Chronic deep vein thrombosis (DVT) of right lower extremity Primary osteoarthritis of both feet Overweight (BMI 25.0-29.9) Acute worsening of stage 3 chronic kidney disease Diabetes mellitus with neuropathy Left leg swelling Lymphedema Plantar fasciitis, left Foot pain, left Obesity (BMI 30.0-34.9) Sepsis Osteoarthritis of feet, bilateral Diabetic peripheral neuropathy associated with type 2 diabetes mellitus Onychoincurvatum Hepatitis C Chest pain Normal coronary arteries Foot pain, right COPD (chronic obstructive pulmonary disease) DVT (deep venous thrombosis) Cellulitis of right foot Hep B w/o coma Hep C w/o coma, chronic Endothelial dysfunction of coronary artery Elevated left ventricular end-diastolic pressure (LVEDP) Cauda equina syndrome ANNIE on CPAP Langerhan's cell histiocytosis SOB (shortness of breath) on exertion Atrial fibrillation HTN (hypertension) PAD (peripheral artery disease) Abdominal pain Diabetes mellitus Renal insufficiency Acute exacerbation of chronic obstructive airways disease Neck Pain Back pain Surgical History History of surgery on right wrist History of hip surgery Hx of tonsillectomy History of cholecystectomy History of appendectomy History of hysterectomy History of cardiac cath Family History Other Coronary artery disease Family history of diabetes mellitus type II Family history of hyperlipidemia Family history of hypertension Social History Smoking Status: Former smoker tobacco type: cigarettes packs per day: 2 pack-years: 60 second hand exposure: Yes alcohol intake: never counseling provided: none substance use type: denies use current occupational status: retired Travel in the last 8 weeks?: None household members: none housing: house lives independently: Yes marital status: education level: middle school current occupational exposures/hazards: No caffeine: Yes special ping needs: No agree to transfusion: No do you feel safe at home: Yes victim of physical abuse: No victim of emotional abuse: No victim of sexual abuse: No would you like helpful sources: No Have you lived/traveled outside US in past 30 days?: No Contact w/someone who lives/traveled outside US past 30 days?: No Exposure to someone with infectious disease in past 14 days?: No Do you have a fever (greater than 100.4 F or 38 C)?: No Have you tested positive for COVID-19?: No Exposed to someone with COVID-19 in past 14 days?: No Do you have a sore throat?: No Do you have a cough?: No Do you have any weakness?: No Do you have any diarrhea?: No Are you experiencing any unusual bleeding?: No Do you have any muscle aches/pain?: No Do you have any abdominal pain?: No Are you experiencing loss of taste or smell?: No [facility] Anesthesia Checklist Patient Identification Patient Identification: Arm Band Structural Data Admitted From: Home Planned Operative Procedure/s: EGD Consent for Planned Operative Procedure(s) Verified: Yes Verified Documents: Surgical Consent NPO Status Verified Time NPO: 00:00 Chart Verification Results Verified: ECG Additional verifications Anesthesia Reactions: No Hx Blood Transfusions: No Blood Transfusion Reaction: No Airway Assessment Mallampati Score:: Class II C-Spine Mobility Assessed: Yes TMJ Mobility Assessed: Yes Dentition: Poor Dentition (Five teeth left on bottom) Neurological Assessment Level of Consciousness: Awake, Alert and Drowsy Hx Seizures: No Numbness or tingling in extremities: No Anesthesia Plan Anesthesia Risk discussed: Yes Anesthesia Plan: Verified ASA Class: III Anesthesia Type: MAC
[2025-01-24 11:19] VITALS: BP 86/44; PULSE 66; RESP 20; TEMP 36.3; O2SAT 91
[2025-01-24 11:29] VITALS: BP 87/46; PULSE 59; O2SAT 92
[2025-01-24 11:39] VITALS: BP 87/50; PULSE 61; O2SAT 91
[2025-01-24 11:49] VITALS: BP 110/59; PULSE 60; O2SAT 92
[2025-01-31 12:12] LABS: Interpretation Notes (.); Lactase 17.12 (>/= 14.0); Maltase 154.66 (>/= 110.0); Palatinase 6.63 (>/= 8.5); Reference Notes (.); Sucrase 29.82 (>/= 25.0)
== END 2025-01-24 11:49 | disposition home or self-care (01) ==
PROVIDERS: PCP Nurse Practitioner Family; Visit Provider Internal Medicine Gastroenterology
PROC: 0DJ08ZZ Inspection of Upper Intestinal Tract, Via Natural or Artificial Opening Endoscopic (ICD-10-PCS; CPT 43239; principal; 2025-01-24 11:00)
DX: K22.2 Esophageal obstruction (principal); K21.9 Gastro-esophageal reflux disease without esophagitis; K31.89 Other diseases of stomach and duodenum; K29.50 Unspecified chronic gastritis without bleeding; I13.0 Hypertensive heart and chronic kidney disease with heart failure and stage 1 through stage 4 chronic kidney disease, or unspecified chronic kidney disease; I50.33 Acute on chronic diastolic (congestive) heart failure; N18.30 Chronic kidney disease, stage 3 unspecified; E11.22 Type 2 diabetes mellitus with diabetic chronic kidney disease; G47.33 Obstructive sleep apnea (adult) (pediatric); G43.909 Migraine, unspecified, not intractable, without status migrainosus; I48.0 Paroxysmal atrial fibrillation; E78.5 Hyperlipidemia, unspecified; I89.0 Lymphedema, not elsewhere classified; E11.42 Type 2 diabetes mellitus with diabetic polyneuropathy; B18.2 Chronic viral hepatitis C; J44.9 Chronic obstructive pulmonary disease, unspecified; G83.4 Cauda equina syndrome; F32.A Depression, unspecified; G25.81 Restless legs syndrome; F41.9 Anxiety disorder, unspecified; E66.3 Overweight; Z87.891 Personal history of nicotine dependence; Z86.73 Personal history of transient ischemic attack (TIA), and cerebral infarction without residual deficits; Z85.79 Personal history of other malignant neoplasms of lymphoid, hematopoietic and related tissues; Z86.718 Personal history of other venous thrombosis and embolism; Z90.49 Acquired absence of other specified parts of digestive tract; Z79.899 Other long term (current) drug therapy; Z90.710 Acquired absence of both cervix and uterus; Z91.51 Personal history of suicidal behavior; Z68.28 Body mass index [BMI] 28.0-28.9, adult; Z79.01 Long term (current) use of anticoagulants; Z79.4 Long term (current) use of insulin; Z79.51 Long term (current) use of inhaled steroids; Z88.8 Allergy status to other drugs, medicaments and biological substances; Z88.6 Allergy status to analgesic agent; Z88.5 Allergy status to narcotic agent; Z88.2 Allergy status to sulfonamides; Z88.0 Allergy status to penicillin; Z88.1 Allergy status to other antibiotic agents
CPT/HCPCS: 43239; 43249; 82657; 82962; 88305; C1726; J2003; J2704; J7120